=== PATIENT | female | born 1965 | race African-American/Black ===

== ENCOUNTER 2018-03-11 10:09 | Emergency (ER) | payer OTHER ==
[2018-03-11 12:25] LABS: Absolute Lymphocytes (CBC) 1.9 K/uL (0.7-4.9); Absolute Monocytes 0.4 K/uL (0.1-1.3); Absolute Neutrophil 2.4 K/uL (1.8-8.0); Eosinophils % 1.6 % (0-4.4); Hematocrit 47.3 % (36.0-45.0); Lymphocytes % 40.2 % (15.3-44.8); MCH 27.9 pg (27.0-35.0); MPV 10.4 fL (7.6-11.3); Monocytes % 7.5 % (3.3-12.3); RBC Red Blood Cell Count 5.44 M/uL (3.86-4.86)
[2018-03-11 12:40] LABS: Bicarbonate 26 mEq/L (21-31); Glucose Level 131 mg/dL (65-120); Potassium 3.6 mEq/L (3.6-5.0); Sodium Level 140 mEq/L (135-145)
[2018-03-11 12:41] LABS: BUN Blood Urea Nitrogen 10 mg/dL (6-20)
--- NOTE | 2018-03-11 13:45 | EKG ---
Test Date: 2018-03-11 Test Time: 12:18:04 Field Cane Scaler Helper: KANIKA MEASUREMENT RESULTS: Intervals: Rate: 76 MT: 174 QRSD: 74 QT: 376 QTc: [address] [place]: P: 24 MT: 174 QRS: -1 T: -25 INTERPRETIVE STATEMENTS: Normal sinus rhythm Nonspecific T wave abnormality Abnormal ECG Compared to ECG 11/22/2017 11:52:00 Atrial fibrillation no longer present Possible ischemia no longer present T-wave abnormality still present Electronically Signed On 03-11-18 13:44:54 CDT by Tarik Ley
--- NOTE | 2018-03-11 14:41 | RAD REPORT ---
EXAM DESCRIPTION: RAD - Chest Single View - 03/11/2018 2:32 pm CLINICAL HISTORY: Dyspnea, shortness of breath, asthma history COMPARISON: October 2017 TECHNIQUE: AP portable chest image was obtained 1401 hours . FINDINGS: No peripheral mass or consolidation. Lung markings are similar to the comparison study. No air trapping or tracheal shift. Heart and vasculature are normal. No measurable pleural effusion and no pneumothorax. No gross bony abnormality seen. No acute aortic findings suspected. IMPRESSION: No acute cardiopulmonary process. No suspicious change from the prior study.
--- NOTE | 2018-03-11 14:47 | EDPHYS ---
Physician Documentation [facility] Name: Madhavi Michael Age: 52 yrs Sex: Female : 1965 Arrival Date: 03/11/2018 Time: 10:11 Bed 6 Private MD: Halle Shabazz ED Physician Arnulfo Pelayo HPI: 03/11 13:34 This 52 yrs old Black Female presents to ER via Ambulatory with complaints of Shortness rn Of Breath, Arm Pain, Neck Pain, <24hrs Old. 13:34 The patient or guardian complains of pain, that is acute. The symptoms are located on rn the left lateral aspect of neck. Onset: The symptoms/episode began/occurred 3 day(s) ago. Associated signs and symptoms: The patient has no apparent associated signs or symptoms. The pain radiates to the left arm. Severity of symptoms: At their worst the symptoms were moderate, in the emergency department the symptoms are unchanged. The patient has not experienced similar symptoms in the past. Reports left neck pain, intermittent, states hurts to move head to left, no trauma, woke up like this a few days ago, no fever, reports mild sob as well, no cough/chest pain. . STRIPPER LATEX: 10:30 LMP N/A - Post-menopause lk1 Historical: - Allergies: 12:09 No Known Allergies; sv - PMHx: 12:09 Asthma; Atrial Fib; Diabetes - NIDDM; Leaking Veins x2 Right Leg; neuropathy; sciatica; sv Sleep Apnea; - PSHx: 12:09 Right Knee Replacement; Hysterectomy; Hernia repair; Fibroid Tumor Removal; Tubal sv ligation; - Immunization history:: Adult Immunizations up to date. - Social history:: Smoking status: Patient uses tobacco products, smokes one-half pack cigarettes per day. - Family history:: not pertinent. - Hospitalizations: : No recent hospitalization is reported. ROS: 13:34 Constitutional: Negative for fever, chills, and weight loss, Eyes: Negative for injury, rn pain, redness, and discharge, Neck: Negative for injury, swelling, Cardiovascular: Negative for chest pain, palpitations, and edema, Respiratory: Negative for cough, wheezing, and pleuritic chest pain, Abdomen/GI: Negative for abdominal pain, nausea, vomiting, diarrhea, and constipation, Back: Negative for injury and pain, MS/Extremity: Negative for injury and deformity, Skin: Negative for injury, rash, and discoloration, Neuro: Negative for headache, weakness, numbness, tingling, and seizure. Exam: 13:34 Constitutional: This is a well developed, well nourished patient who is awake, alert, rn and in no acute distress. Head/Face: Normocephalic, atraumatic. Eyes: Pupils equal round and reactive to light, extra-ocular motions intact. Lids and lashes normal. Conjunctiva and sclera are non-icteric and not injected. Cornea within normal limits. Periorbital areas with no swelling, redness, or edema. Neck: Trachea midline, no thyromegaly or masses palpated, and no cervical lymphadenopathy. Supple, full range of motion without nuchal rigidity, or vertebral point tenderness. No Meningismus. Mild painful ROM when turning to left, + mild tenderness along left SCM. Cardiovascular: Regular rate and rhythm with a normal S1 and S2. No gallops, murmurs, or rubs. Normal PMI, no JVD. No pulse deficits. Respiratory: + mild tachypnea, clear breath sounds bilaterally. Abdomen/GI: Soft, + mild erythema and tenderness without fluctuance or drainage to underside of pannicula. MS/ Extremity: Pulses equal, no cyanosis. Neurovascular intact. Full, normal range of motion. Equal circumference. Neuro: Awake and alert, GCS 15, oriented to person, place, time, and situation. Cranial nerves II-XII grossly intact. Motor strength 5/5 in all extremities. Sensory grossly intact. Vital Signs: 10:30 BP 150 / 97; Pulse 63; Resp 16; Temp 97.0(TE); Pulse Ox 99% on R/A; Weight 131.54 kg lk1 (R); Height 5 ft. 7 in. (170.18 cm) (R); Pain 10/10; 12:43 BP 161 / 104; Pulse 64 MON; Resp 17; Pulse Ox 100% on R/A; sv 13:10 BP 148 / 101; Pulse 64; Resp 21; Pulse Ox 100% on R/A; sv 13:57 BP 152 / 104; Pulse 57 MON; Resp 23; Pulse Ox 99% on R/A; sv 13:57 BP 152 / 104; Pulse 58; Resp 22; Pulse Ox 100% on R/A; jb1 14:57 BP 157 / 98; Pulse 61; Resp 20 S; Pulse Ox 99% on R/A; iw 10:30 Body Mass Index 45.42 (131.54 kg, 170.18 cm) lk1 12:43 Sinus Rhythm sv 13:57 Sinus bradycardia sv MDM: 11:53 Patient medically screened. rn 14:46 Differential diagnosis: arthritis, Cervical Raiculopathy cervical strain, rn Osteoarthritis torticollis. Data reviewed: vital signs, nurses notes, lab test result(s), EKG, radiologic studies, plain films, and as a result, I will discharge patient. Counseling: I had a detailed discussion with the patient and/or guardian regarding: the historical points, exam findings, and any diagnostic results supporting the discharge/admit diagnosis, lab results, radiology results, the need for outpatient follow up, to return to the emergency department if symptoms worsen or persist or if there are any questions or concerns that arise at home. Special discussion: I discussed with the patient/guardian in detail that at this point there is no indication for admission to the hospital. It is understood, however, that if the symptoms persist or worsen the patient needs to return immediately for re-evaluation. 03/11 12:19 Order name: Basic Metabolic Panel; Complete Time: 14:06 EDWV 03/11 12:19 Order name: Troponin I; Complete Time: 14:06 EDWV 03/11 12:19 Order name: CBC with Automated Diff; Complete Time: 14:06 EDWV 03/11 12:05 Order name: IV Start; Complete Time: 12:31 rn 03/11 12:05 Order name: EKG; Complete Time: 12:34 rn 03/11 12:05 Order name: EKG - Nurse/Tech; Complete Time: 12:31 rn 03/11 12:05 Order name: XRAY Chest (1 view); Complete Time: 14:44 rn Administered Medications: No medications were administered Disposition: 03/11/18 14:47 Discharged to Home. Impression: Radiculopathy, cervical region, Torticollis, Muscle spasm. - Condition is Stable. - Discharge Instructions: Cervical Radiculopathy, Torticollis, Acute. - Prescriptions for Cyclobenzaprine 10 mg Oral Tablet - take 1 tablet by ORAL route every 8-12 hours As needed; 15 tablet. Medrol (Jameson) 4 mg Oral Tablets, Dose Pack - take 1 tablet by ORAL route as directed - follow package instructions; 1 packet. - Medication Reconciliation Form, Thank You Letter, Antibiotic Education, Prescription Opioid Use form. - Follow up: Private Physician; When: As needed; Reason: Recheck today's complaints, Re-evaluation by your physician. - Problem is an ongoing problem. - Symptoms have improved. Signatures: Dispatcher [employer] EDFallon Garcia RN RN sv Williams, Irene, RN RN iw Nieto, Roman, MD MD research attorney: (The following items were deleted from the chart) 12:55 12:22 Chest Pa And Lat (2 Views) ordered. EDWV EDMS
--- NOTE | 2018-03-11 14:47 | ER ---
Nurse's Notes [facility] Name: Madhavi Michael Age: 52 yrs Sex: Female : 1965 Arrival Date: 03/11/2018 Time: 10:11 Bed 6 Private MD: Halle Shabazz Diagnosis: Radiculopathy, cervical region;Torticollis;Muscle spasm Presentation: 03/11 10:28 Presenting complaint: Patient states: "Some say I have pleurisy. I am short of breath, lk1 I can't turn my neck to the left. I also have a boil under my fat.". Initial Sepsis Screen: Does the patient meet any 2 criteria?. 10:28 Method Of Arrival: Ambulatory lk1 10:29 Transition of care: patient was not received from another setting of care. Onset of lk1 symptoms was March 07, 2018. Care prior to arrival: None. 10:29 Acuity: SISSY 3 lk1 12:28 Initial Sepsis Screen: Does the patient meet any 2 criteria? No. Patient's initial sv sepsis screen is negative. Does the patient have a suspected source of infection? No. Patient initial sepsis screen negative. Triage Assessment: 10:30 General: Appears in no apparent distress. Behavior is calm, cooperative, appropriate lk1 for age. Pain: Complains of pain in anterior aspect of left shoulder, posterior aspect of left shoulder and neck Pain currently is 10 out of 10 on a pain scale. Respiratory: Airway is patent Respiratory effort is even, unlabored, Respiratory pattern is regular, symmetrical. 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 - Social history:: Smoking status: Patient uses tobacco products, smokes one-half pack cigarettes per day. - Family history:: not pertinent. - Hospitalizations: : No recent hospitalization is reported. Screenin:00 Abuse screen: Denies threats or abuse. Denies injuries from another. Nutritional sv screening: No deficits noted. Tuberculosis screening: No symptoms or risk factors identified. Fall Risk None identified. Assessment: 12:00 General: Appears in no apparent distress. uncomfortable, obese, Behavior is calm, sv cooperative, appropriate for age. Pain: Complains of pain in left trapezius, suprapubic area, left posterior aspect of neck and left lateral aspect of neck Pain currently is 10 out of 10 on a pain scale. Quality of pain is described as tender, Pain began Is continuous, Noted to be grimacing, resistant to movement, Also complains of sleeplessness. Neuro: Level of Consciousness is awake, alert, obeys commands, Oriented to person, place, time, situation, Moves all extremities. Full function. Cardiovascular: Patient's skin is warm and dry. Respiratory: Reports shortness of breath at rest Respiratory effort is even, unlabored, Respiratory pattern is regular, symmetrical. Derm: Skin is normal, Abscess located on suprapubic area is dime sized, has no drainage. Musculoskeletal: Range of motion: intact in all extremities. 14:57 Reassessment: Patient appears in no apparent distress at this time. Patient and/or iw family updated on plan of care and expected duration. Pain level reassessed. Patient is alert, oriented x 3, equal unlabored respirations, skin warm/dry/pink. Vital Signs: 10:30 BP 150 / 97; Pulse 63; Resp 16; Temp 97.0(TE); Pulse Ox 99% on R/A; Weight 131.54 kg lk1 (R); Height 5 ft. 7 in. (170.18 cm) (R); Pain 10/10; 12:43 BP 161 / 104; Pulse 64 MON; Resp 17; Pulse Ox 100% on R/A; sv 13:10 BP 148 / 101; Pulse 64; Resp 21; Pulse Ox 100% on R/A; sv 13:57 BP 152 / 104; Pulse 57 MON; Resp 23; Pulse Ox 99% on R/A; sv 13:57 BP 152 / 104; Pulse 58; Resp 22; Pulse Ox 100% on R/A; jb1 14:57 BP 157 / 98; Pulse 61; Resp 20 S; Pulse Ox 99% on R/A; iw 10:30 Body Mass Index 45.42 (131.54 kg, 170.18 cm) lk1 12:43 Sinus Rhythm sv 13:57 Sinus bradycardia sv ED Course: 10:11 Patient arrived in ED. as 10:12 Halle Shabazz MD is Private Physician. as 10:30 Triage completed. lk1 10:32 Arm band placed on right wrist. lk1 11:53 Arnulfo Pelayo MD is Attending Physician. rn 11:58 Fallon Willard RN is Primary Nurse. sv 12:00 Patient has correct armband on for positive identification. Placed in gown. Bed in low sv position. Call light in reach. Side rails up X2. phototypesetting equipment monitor on. Pulse ox on. NIBP on. Door closed. Head of bed elevated. 12:30 Initial lab(s) drawn, by me, sent to lab. Inserted saline lock: 22 gauge in right jb1 antecubital area, using aseptic technique. Blood collected. 13:00 EKG done, by radiation therapy technologist. reviewed by Arnulfo Pelayo MD. vh 13:10 Awaiting for x-ray. sv 14:07 X-ray completed. Portable x-ray completed in exam room. jr1 14:11 XRAY Chest (1 view) In Process Unspecified. EDMS 14:57 No provider procedures requiring assistance completed. IV discontinued, intact, iw bleeding controlled, No redness/swelling at site. Pressure dressing applied. Administered Medications: No medications were administered Outcome: 14:47 Discharge ordered by MD. rn 14:57 Discharged to home ambulatory, with family. iw 14:57 Condition: good 14:57 Discharge instructions given to patient, family, Instructed on discharge instructions, follow up and referral plans. medication usage, Demonstrated understanding of instructions, follow-up care, medications, Prescriptions given X 2. 14:59 Patient left the ED. iw Signatures: Dispatcher [employer] EDMS Warren Gold jb1 Fallon Willard, Marnie Castillo RN jr1 Luiza Castellano Irene, RN RN Arnulfo Pelayo MD MD rn Harrell, Venessa Susi Solorio RN RN lk1
[2018-03-11 15:19] VITALS: TEMP 97
[2018-03-11 15:23] VITALS: O2SAT 99
[2018-03-11 15:24] VITALS: BP 157/98
== END 2018-03-11 14:59 | disposition home or self-care (01) ==
LOC: ER 10:09
DX: M43.6 Torticollis (principal); M54.12 Radiculopathy, cervical region; M62.838 Other muscle spasm; F17.210 Nicotine dependence, cigarettes, uncomplicated
CPT/HCPCS: 36415; 71045; 80048; 84484; 85025; 93005; 99284

== ENCOUNTER 2018-08-03 08:15 | Emergency (ER) | payer OTHER ==
[2018-08-03] MEDS ORDERED: SMZ./TMP. 800/160 MG TABLET ONE (09:43)
[2018-08-03] MEDS ORDERED: CEPHALEXIN 250 MG CAP ONE (09:43)
[2018-08-03] MEDS ORDERED: LIDOCAINE 1% MPF 2 ML AMPULE ONE (09:44)
--- NOTE | 2018-08-03 10:02 | ER ---
Nurse's Notes [facility] Name: Madhavi Michael Age: 52 yrs Sex: Female : 1965 Arrival Date: 08/03/2018 Time: 08:20 Bed 16 Private MD: Halle Shabazz Diagnosis: Cutaneous abscess of abdominal wall Presentation: 08/03 08:39 Presenting complaint: Patient states: felt some irritation in her left abdominal area, iw got worse yesterday, feels an abscess, no fever or chills. Transition of care: patient was not received from another setting of care. Onset of symptoms was July 28, 2018. Risk Assessment: Do you want to hurt yourself or someone else? Patient reports no desire to harm self or others. Initial Sepsis Screen: Does the patient meet any 2 criteria? No. Patient's initial sepsis screen is negative. Does the patient have a suspected source of infection? No. Patient's initial sepsis screen is negative. Care prior to arrival: None. 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:40 LMP N/A - Hysterectomy rb1 Historical: - Allergies: 08:45 NKA; iw - Home Meds: 08:45 amlodipine 10 mg tab [Active]; aspirin 81 mg Oral TbEC 1 tab once daily [Active]; iw carvedilol 25 mg Oral tab 1 tab 2 times per day [Active]; Eliquis 2.5 mg Oral tab 1 tab 2 times per day [Active]; Flovent Inhl [Active]; gabapentin 600 mg Oral tab 1 tab 3 times per day [Active]; Iron CR 324mg Oral daily [Active]; [place] 10-325 mg Oral tab 1 tab every 4-6 hours for Pain [Active]; Simvastatin Oral [Active]; - PMHx: 08:45 Asthma; Atrial Fib; Diabetes - NIDDM; Leaking Veins x2 Right Leg; neuropathy; sciatica; iw Sleep Apnea; - PSHx: 08:45 Right Knee Replacement; Hysterectomy; Hernia repair; Fibroid Tumor Removal; Tubal iw ligation; - Immunization history:: Adult Immunizations not up to date. - Social history:: Smoking status: Patient uses tobacco products, smokes one-half pack cigarettes per day. - Ebola Screening: : Patient negative for fever greater than or equal to 101.5 degrees Fahrenheit, and additional compatible Ebola Virus Disease symptoms Patient denies exposure to infectious person Patient denies travel to an Ebola-affected area in the 21 days before illness onset No symptoms or risks identified at this time. Screenin:40 Nutritional screening: No deficits noted. Tuberculosis screening: No symptoms or risk rb1 factors identified. Fall Risk None identified. 08:45 Abuse screen: Denies threats or abuse. Denies injuries from another. iw Assessment: 08:40 General: Appears in no apparent distress. comfortable, obese, Behavior is calm, rb1 cooperative, Denies fever. Pain: Complains of pain in left lower quadrant Pain currently is 10 out of 10 on a pain scale. Neuro: Level of Consciousness is awake, alert, obeys commands, Oriented to person, place, time, situation. Cardiovascular: Capillary refill < 3 seconds is brisk in bilateral fingers. Respiratory: Airway is patent Respiratory effort is even, unlabored, Respiratory pattern is regular, symmetrical. GI: No signs and/or symptoms were reported involving the gastrointestinal system. : No signs and/or symptoms were reported regarding the genitourinary system. Derm: Skin is dry, Skin is normal, Skin temperature is warm. 09:40 Reassessment: Patient appears in no apparent distress at this time. No changes from rb1 previously documented assessment. 10:25 Reassessment: Patient appears in no apparent distress at this time. Patient and/or rb1 family updated on plan of care and expected duration. Pain level reassessed. Patient is alert, oriented x 3, equal unlabored respirations, skin warm/dry/pink. Vital Signs: 08:45 BP 161 / 94; Pulse 73; Resp 18; Temp 98.4; Pulse Ox 99% on R/A; Weight 133.36 kg; iw Height 5 ft. 7 in. (170.18 cm); Pain 10/10; 09:28 BP 140 / 81; Pulse 73; Resp 16; Pulse Ox 99% on R/A; dh3 10:00 BP 147 / 88; Pulse 60; Resp 19; Pulse Ox 100% on R/A; rb1 08:45 Body Mass Index 46.05 (133.36 kg, 170.18 cm) iw ED Course: 08:20 Patient arrived in ED. sb2 08:20 Halle Shabazz MD is Private Physician. sb2 08:31 Irena Clay, RN is Primary Nurse. rb1 08:40 [facility]. kb 08:40 Arnulfo Pelayo MD is Attending Physician. kb 08:40 Patient has correct armband on for positive identification. Bed in low position. Call rb1 light in reach. Side rails up X 1. Pulse ox on. NIBP on. Warm blanket given. 08:43 Triage completed. iw 08:46 Arm band placed on. iw 10:01 Halle Shabazz MD is Referral Physician. kb 10:25 No provider procedures requiring assistance completed. Patient did not have IV access rb1 during this emergency room visit. Administered Medications: 09:35 Drug: Lidocaine (1 %) 1 vials Volume: 5 ml; Route: Infiltration; rb1 10:00 Drug: Bactrim (160 mg-800 mg (DS) 1 tablet Route: PO; rb1 10:25 Follow up: Response: No adverse reaction rb1 10:00 Drug: KeFLEX 500 mg Route: PO; rb1 10:25 Follow up: Response: No adverse reaction rb1 Outcome: 10:01 Discharge ordered by MD. kb 10:25 Discharged to home via wheelchair, with family. rb1 10:25 Condition: stable 10:25 Discharge instructions given to patient, Instructed on discharge instructions, follow up and referral plans. medication usage, Demonstrated understanding of instructions, follow-up care, medications, Prescriptions given X 3. 10:33 Patient left the ED. rb1 Addendum: 08/08/2018 17:07 Addendum: Culture Results: Positive wound culture. No further action required. Bacteria s s is resistant to, has intermediate sensitivity, or is not tested against prescribed antibiotics. Report given to AIDAN for further evaluation and then to assistant general manager for follow up with patient. Phone call Attempt #1 spoke with patient who reports she has followed up with Dr. Shabazz and feels much better. Signatures: Linda Colbert FNP-C FNP-Kiera Heard RN RN Brianna Brooks RN RN ss Barber, Rebecca, RN RN [facility] Viviana Reveles 3 Marcela Nair 2
--- NOTE | 2018-08-03 10:02 | EDPHYS ---
Physician Documentation [facility] Name: Madhavi Michael Age: 52 yrs Sex: Female : 1965 Arrival Date: 08/03/2018 Time: 08:20 Bed 16 Private MD: Halle Shabazz ED Physician Arnulfo Pelayo HPI: 08/03 09:32 This 52 yrs old Black Female presents to ER via Wheelchair with complaints of Abscess. kb 09:32 The patient presents with an abscess of the left lower quadrant. Description: kale, driss swollen. Onset: The symptoms/episode began/occurred last week, and became worse yesterday. Possible cause(s): unknown. Associated signs and symptoms: Pertinent positives: swelling, Pertinent negatives: discharge, drainage, erythema, foreign body sensation, fever, headache, nausea, shortness of breath, vomiting. Modifying factors: the symptoms are alleviated by nothing, the symptoms are aggravated by pressure, squeezing the lesion and expressing the contents, touching. Severity of symptoms: At their worst the symptoms were moderate, in the emergency department the symptoms are unchanged. The patient has not experienced similar symptoms in the past. The patient has not recently seen a physician. 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 - Hysterectomy rb1 Historical: - Allergies: 08:45 NKA; iw - Home Meds: 08:45 amlodipine 10 mg tab [Active]; aspirin 81 mg Oral TbEC 1 tab once daily [Active]; iw carvedilol 25 mg Oral tab 1 tab 2 times per day [Active]; Eliquis 2.5 mg Oral tab 1 tab 2 times per day [Active]; Flovent Inhl [Active]; gabapentin 600 mg Oral tab 1 tab 3 times per day [Active]; Iron CR 324mg Oral daily [Active]; Orient 10-325 mg Oral tab 1 tab every 4-6 hours for Pain [Active]; Simvastatin Oral [Active]; - PMHx: 08:45 Asthma; Atrial Fib; Diabetes - NIDDM; Leaking Veins x2 Right Leg; neuropathy; sciatica; iw Sleep Apnea; - PSHx: 08:45 Right Knee Replacement; Hysterectomy; Hernia repair; Fibroid Tumor Removal; Tubal iw ligation; - Immunization history:: Adult Immunizations not up to date. - Social history:: Smoking status: Patient uses tobacco products, smokes one-half pack cigarettes per day. - Ebola Screening: : Patient negative for fever greater than or equal to 101.5 degrees Fahrenheit, and additional compatible Ebola Virus Disease symptoms Patient denies exposure to infectious person Patient denies travel to an Ebola-affected area in the 21 days before illness onset No symptoms or risks identified at this time. ROS: 09:30 Constitutional: Negative for fever, chills, and weight loss, Cardiovascular: Negative kb for chest pain, palpitations, and edema, Respiratory: Negative for shortness of breath, cough, wheezing, and pleuritic chest pain, Abdomen/GI: Negative for abdominal pain, nausea, vomiting, diarrhea, and constipation, Back: Negative for injury and pain, : Negative for injury, bleeding, discharge, and swelling, MS/Extremity: Negative for injury and deformity, Neuro: Negative for headache, weakness, numbness, tingling, and seizure. 09:30 Skin: Positive for abscess, of the left lower quadrant. Exam: 09:30 Constitutional: This is a well developed, well nourished patient who is awake, alert, kb and in no acute distress. Head/Face: Normocephalic, atraumatic. Chest/axilla: Normal chest wall appearance and motion. Nontender with no deformity. No lesions are appreciated. Cardiovascular: Regular rate and rhythm with a normal S1 and S2. No gallops, murmurs, or rubs. Normal PMI, no JVD. No pulse deficits. Respiratory: Lungs have equal breath sounds bilaterally, clear to auscultation and percussion. No rales, rhonchi or wheezes noted. No increased work of breathing, no retractions or nasal flaring. Abdomen/GI: Soft, non-tender, with normal bowel sounds. No distension or tympany. No guarding or rebound. No evidence of tenderness throughout. Back: No spinal tenderness. No costovertebral tenderness. Full range of motion. MS/ Extremity: Pulses equal, no cyanosis. Neurovascular intact. Full, normal range of motion. Neuro: Awake and alert, GCS 15, oriented to person, place, time, and situation. Cranial nerves II-XII grossly intact. Motor strength 5/5 in all extremities. Sensory grossly intact. Cerebellar exam normal. Normal gait. 09:30 Skin: abscess, that is moderate sized, of the left lower quadrant, with fluctuance, that is marked, with induration. Vital Signs: 08:45 BP 161 / 94; Pulse 73; Resp 18; Temp 98.4; Pulse Ox 99% on R/A; Weight 133.36 kg; iw Height 5 ft. 7 in. (170.18 cm); Pain 10/10; 09:28 BP 140 / 81; Pulse 73; Resp 16; Pulse Ox 99% on R/A; dh3 10:00 BP 147 / 88; Pulse 60; Resp 19; Pulse Ox 100% on R/A; rb1 08:45 Body Mass Index 46.05 (133.36 kg, 170.18 cm) iw Procedures: 09:58 I \T\ D: Incision and drainage was performed for an abscess of the left left lower kb quadrant Prepped with Betadine, Anesthetized with 4 ml's 1% Lidocaine. Incised with #11 blade. Drained large amount purulent fluid. Cultures obtained. Abscess cavity explored. Packed with iodoform gauze, Dressing: sterile 4x4 gauze, the patient tolerated the procedure well. MDM: 08:40 Patient medically screened. kb 09:30 Data reviewed: vital signs, nurses notes. Data interpreted: Pulse oximetry: on room air kb is 99 %. Interpretation: normal. Counseling: I had a detailed discussion with the patient and/or guardian regarding: the historical points, exam findings, and any diagnostic results supporting the discharge/admit diagnosis, the need for outpatient follow up, a family practitioner, a general surgeon, to return to the emergency department if symptoms worsen or persist or if there are any questions or concerns that arise at home. 09:59 ED course: Educated to take antibiotics as prescribed and return for worsening pain, kb swelling, redness, development of fever. Pt to follow up with PCP/general surgery. 08/03 10:07 Order name: Wound Culture kb 08/03 08:48 Order name: I\T\D Setup; Complete Time: 10:02 kb Administered Medications: 09:35 Drug: Lidocaine (1 %) 1 vials Volume: 5 ml; Route: Infiltration; rb1 10:00 Drug: Bactrim (160 mg-800 mg (DS) 1 tablet Route: PO; rb1 10:25 Follow up: Response: No adverse reaction rb1 10:00 Drug: KeFLEX 500 mg Route: PO; rb1 10:25 Follow up: Response: No adverse reaction rb1 Disposition: 11:31 Co-signature as Attending Physician, Arnulfo Pelayo MD. rn Disposition: 08/03/18 10:01 Discharged to Home. Impression: Cutaneous abscess of abdominal wall. - Condition is Stable. - Discharge Instructions: Skin Abscess, [id number], Incision and Drainage, Care After. - Prescriptions for Keflex 500 mg Oral Capsule - take 1 capsule by ORAL route every 8 hours for 10 days; 30 capsule. Bactrim DS 800- 160 mg Oral Tablet - take 1 tablet by ORAL route every 12 hours for 10 days; 20 tablet. Tramadol 50 mg Oral Tablet - take 1 tablet by ORAL route every 8 hours as needed; 12 tablet. - Medication Reconciliation Form, Thank You Letter, Antibiotic Education, Prescription Opioid Use form. - Follow up: Emergency Department; When: As needed; Reason: Worsening of condition. Follow up: Halle Shabazz MD; When: 2 - 3 days; Reason: Recheck today's complaints, Continuance of care, Re-evaluation by your physician. Signatures: Dispatcher [employer] Linda Coffman, SYSTEMS DESIGNER-C SYSTEMS DESIGNER-Ckb Kiera Lozada, RN Arnulfo eBrgman MD MD rn Barber, Rebecca, RN RN rb1 Corrections: (The following items were deleted from the chart) 10:33 10:01 08/03/2018 10:01 Discharged to Home. Impression: Cutaneous abscess of abdominal rb1 wall. Condition is Stable. Forms are Medication Reconciliation Form, Thank You Letter, Antibiotic Education, Prescription Opioid Use. Follow up: Emergency Department; When: As needed; Reason: Worsening of condition. Follow up: Halle Shabazz; When: 2 - 3 days; Reason: Recheck today's complaints, Continuance of care, Re-evaluation by your physician. kb
[2018-08-03 10:51] VITALS: TEMP 98.4
[2018-08-03 10:52] VITALS: BP 147/88; O2SAT 100
== END 2018-08-03 10:33 | disposition home or self-care (01) ==
LOC: ER 08:15
PROC: 0H97XZZ Drainage of Abdomen Skin, External Approach (ICD-10-PCS; principal; 2018-08-03)
DX: L02.211 Cutaneous abscess of abdominal wall (principal); Z79.01 Long term (current) use of anticoagulants; Z79.82 Long term (current) use of aspirin; J45.909 Unspecified asthma, uncomplicated; I48.91 Unspecified atrial fibrillation; E11.40 Type 2 diabetes mellitus with diabetic neuropathy, unspecified; M54.30 Sciatica, unspecified side; G47.30 Sleep apnea, unspecified; F17.210 Nicotine dependence, cigarettes, uncomplicated; E66.9 Obesity, unspecified; Z68.42 Body mass index [BMI] 45.0-49.9, adult
CPT/HCPCS: 87070; 87077; 87186; 87205; 99283; J2001

== ENCOUNTER 2018-11-20 11:54 | Emergency (ER) | payer OTHER ==
--- OUTSIDE RECORDS SUMMARY | 2018-11-20 11:57 | XMS REPORT ---
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42 Active in adult Problem Thrombocytopenia D69.6 Active Problem Morbid (severe) obesity due to E66.01 Active excess calories Problem GERD (gastroesophageal reflux K21.9 Active disease) Problem Hyperlipidemia E78.5 Active Problem Edema R60.9 Active Problem Anemia D64.9 Active Problem Paroxysmal atrial fibrillation I48.0 Active Problem Asthma, unspecified asthma J45.909 Active severity, unspecified whether complicated, unspecified whether persistent Problem Diabetes mellitus type 2 in E11.9 Active nonobese Problem Osteoarthrosis, localized, M17.5 Active secondary, involving lower leg Medications No Known Medications Results No Known Results Summary Purpose [employer] Submission
--- OUTSIDE RECORDS SUMMARY | 2018-11-20 11:57 | XMS REPORT ---
:1965 Author Organization [employer] Care Team Providers Name Role Phone Shabazz, Na Provider Role Unavailable Allergies, Adverse Reactions, Alerts Substance Reaction Event Type N.K.D.A. Info Not Available Non Drug Allergy Problems Problem Type Condition Code Onset Dates Condition Status Assessment Screening for human Z11.4 Active immunodeficiency virus Assessment Recurrent infection of skin L08.9 Active Assessment Exposure to hepatitis C Z20.5 Active Assessment Need for hepatitis C screening test Z11.59 Active Assessment Diabetes mellitus type 2 in E11.9 Active nonobese Problem Obstructive sleep apnea G47.33 Active Problem [...] M17.5 Active secondary, involving lower leg Medications Medication Code Code Instructions Start End Status Dosage System Date Date [facility] 30994590428 5-325 MG Active 1 tablet Orally every 6 as needed hrs Ferrous Sulfate [facility] 61840425953 325 (65 Fe) MG Active 1 tablet Orally Once a day Omeprazole [facility] 33493344008 40MG Active TAKE ONE CAPSULE BY MOUTH ONCE DAILY Celexa [facility] 25105792023 40 MG Orally Active 0.5 Once a day tablet Coreg [facility] 00361908065 25 MG Orally Active not defined Omeprazole [facility] 39475220790 40 MG Orally Active 1 capsule Once a day Hydrochlorothiazide [facility] 49041464277 25 MG Orally Active 1 tablet Once a day in the morning Flovent Diskus [facility] 44472133469 100 MCG/BLIST Active 1 puff Inhalation Twice a day Potassium Chloride ER [facility] 16019736292 10MEQ ER Active TAKE ONE TABLET BY MOUTH ONCE DAILY Albuterol Sulfate [facility] 73580609805 (5 MG/ML) 0.5% Active 1 ml as Inhalation needed every 6 hrs Klor-Con M10 [facility] 58695188214 10 MEQ Orally Active 1 tablet Twice a day with food Flonase [facility] 58497264454 50 MCG/ACT Active 1 spray Nasally Once a in each day nostril Potassium Chloride ER [facility] 38270695118 10MEQ ER Active TAKE ONE TABLET BY MOUTH ONCE DAILY Singulair [facility] 77628211035 10 MG Orally Active 1 tablet Once a day in the evening Combivent Respimat [facility] 45679887092 20-100 MCG/ACT Active 1 puff Inhalation Four times a day - [facility] 08043189367 81 MG Orally Active 1 tablet Once a day Amlodipine Besylate [facility] 68302917806 10 MG Orally Jan 22, Active 1 tablet Once a day [address] [facility] 91488968159 60 MG Orally [place] Active 1 capsule Once a day [address] [facility] 46610357133 20MG Active TAKE ONE TABLET BY MOUTH ONCE DAILY Neurontin [facility] 39351960877 600 MG Orally Active 1 tablet Once a day Combivent NDC 0 Active not defined Norvasc [facility] 44328403151 5 MG Orally Active 2 tablet Once a day Simvastatin [facility] 77144599597 20 MG Orally Active 1 tablet Once a day in the evening Zanaflex [facility] 02567098520 4 MG Orally Active 1 tablet twice times a as needed day Flovent HFA [facility] 30178331213 110 MCG/ACT Active 1 puff Inhalation Twice a day Cozaar [facility] 46748569707 100 MG Orally Active 1 tablet Once a day Results No Known Results Summary Purpose eClinicalWorks Submission
--- OUTSIDE RECORDS SUMMARY | 2018-11-20 11:57 | XMS REPORT ---
:1965 Author Organization [employer] Care Team Providers Name Role Phone Shabazz, Na Provider Role Unavailable Allergies, Adverse Reactions, Alerts Substance Reaction Event Type N.K.D.A. Info Not Available Non Drug Allergy Problems Problem Type Condition Code Onset Dates Condition Status Assessment Nicotine abuse Z72.0 Active Assessment Elevated blood pressure reading I10 Active with diagnosis of hypertension Assessment Encounter for tobacco use cessation Z71.6 Active counseling Assessment Abscess of vagina N76.0 Active Problem Obstructive sleep apnea G47.33 Active Problem [...] Start End Status Dosage System Date Date Albuterol Sulfate [facility] 74800714551 (5 MG/ML) 0.5% Active 1 ml as Inhalation needed every 6 hrs [place] [facility] 01379358620 5-325 MG Active 1 tablet as Orally every 6 needed hrs Celexa [facility] 11546348693 40 MG Orally Active 0.5 tablet Once a day Aspir-81 ND 72722019000 81 MG Orally Active 1 tablet Once a day Cozaar ND 56161048742 100 MG Orally Active 1 tablet Once a day Amlodipine Besylate ND 36753840790 10 MG Orally Feb Active 1 tablet Once a day 2017 Omeprazole [facility] 23851605250 40 MG Orally Active 1 capsule Once a day Combivent ND 0 Active not defined Flovent Diskus ND 04935144592 100 MCG/BLIST Active 1 puff Inhalation Twice a day Neurontin [facility] 46214997581 600 MG Orally Active 1 tablet Once a day Hydrochlorothiazide ND 38873751060 25 MG Orally Active 1 tablet in Once a day the morning Coreg ND 15974285522 25 MG Orally Active not defined Potassium Chloride ER [facility] 44859063993 10MEQ ER Active TAKE ONE TABLET BY MOUTH ONCE DAILY Norvasc [facility] 07111501234 5 MG Orally Active 2 tablet Once a day Flovent HFA ND 58047380958 110 MCG/ACT Active 1 puff Inhalation Twice a day Levaquin ND 32861024487 500 MG Orally Sept Oct Active 1 tablet Once a day 2017 Potassium Chloride ER [facility] 05459328738 10MEQ ER Active TAKE ONE TABLET BY MOUTH ONCE DAILY Singulair ND 40144490106 10 MG Orally Active 1 tablet in Once a day the evening Combivent Respimat [facility] 14465639939 20-100 MCG/ACT Active 1 puff Inhalation Four times a day Ferrous Sulfate [facility] 44001037011 325 (65 Fe) MG Active 1 tablet Orally Once a day Omeprazole ND 05006142047 40MG Active TAKE ONE CAPSULE BY MOUTH ONCE DAILY Mupirocin [facility] 65493123373 2 % Externally Sept Oct Active 1 two times a , 2017 to affected area Dexilant ND 84787052461 60 MG Orally [place] Active 1 capsule Once a day 2017 Klor-Con M10 [facility] 91531881896 10 MEQ Orally Active 1 tablet Twice a day with food Simvastatin [facility] 36849348653 20MG Active TAKE ONE TABLET BY MOUTH ONCE DAILY Flonase [facility] 43639275089 50 MCG/ACT Active 1 spray in Nasally Once a each nostril day Doxycycline Hyclate [facility] 58565237439 100 MG Orally Sept Active 1 capsule twice a day 2017 Zanaflex [facility] 74179433359 4 MG Orally Active 1 tablet as twice times a needed day Simvastatin [facility] 64435309712 20 MG Orally Active 1 tablet in Once a day the evening Results No Known Results Summary Purpose eClinicalWorks Submission
[2018-11-20 13:27] LABS: Urine Blood 1+ (NEG); Urine Glucose NEGATIVE (NEG); Urine Protein NEGATIVE (NEG); Urine Specific Gravity >1.030 (1.005-1.030); Urine pH 5.5 (5.0-7.0)
[2018-11-20 13:38] LABS: Urine Bacteria 20-50 /HPF (<20); Urine Culture Reflex Order REFLEXED; Urine Mucus 1+ /HPF (NONE SEEN)
--- NOTE | 2018-11-20 14:53 | RAD REPORT ---
EXAM DESCRIPTION: RAD - Ribs Right - 11/20/2018 2:45 pm CLINICAL HISTORY: chest wall pain COMPARISON: Chest Single View dated 03/11/2018 FINDINGS: No evidence of right rib fracture or aggressive right rib lesion. Visualized right lung is clear. IMPRESSION: Negative study.
[2018-11-20] MEDS ORDERED: HYDROCODONE/APAP 10/325 TAB ONE (15:15)
[2018-11-20] MEDS ORDERED: METHOCARBAMOL 500 MG TAB ONE (15:15)
[2018-11-20] MEDS ORDERED: KETOROLAC 30 MG/ML INJ ONE (15:15)
--- NOTE | 2018-11-20 15:29 | EDPHYS ---
Physician Documentation [facility] Name: Madhavi Michael Age: 52 yrs Sex: Female : 1965 Arrival Date: 11/20/2018 Time: 11:58 Bed 20 Private MD: Halle Shabazz ED Physician Aman Sanchez HPI: 11/20 14:51 This 52 yrs old Black Female presents to ER via Ambulatory with complaints of Back Pain.kdr 14:51 The patient presents with pain that is acute. The symptoms are located in the right kdr lateral thorax at posterior axillary line and below nipple line. Onset: The symptoms/episode began/occurred suddenly, 2 day(s) ago. The pain does not radiate. Associated signs and symptoms: Pertinent positives: Hurts to breath. The problem was sustained from unknown cause. Modifying factors: The patient symptoms are alleviated by remaining still, the patient symptoms are aggravated by any movement, coughing, walking, breathing. Severity of symptoms: At their worst the symptoms were mild, in the emergency department the symptoms are unchanged. The patient has not experienced similar symptoms in the past. The patient has not recently seen a physician. 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 - Hysterectomy aj1 Historical: - Allergies: 12:08 NKA; aj1 - Home Meds: 12:08 amlodipine 10 mg tab [Active]; aspirin 81 mg Oral TbEC 1 tab once daily [Active]; aj1 carvedilol 25 mg Oral tab 1 tab 2 times per day [Active]; Eliquis 2.5 mg Oral tab 1 tab 2 times per day [Active]; Flovent Inhl [Active]; gabapentin 600 mg Oral tab 1 tab 3 times per day [Active]; Iron CR 324mg Oral daily [Active]; [place] 10-325 mg Oral tab 1 tab every 4-6 hours for Pain [Active]; Simvastatin Oral [Active]; - PMHx: 12:08 Asthma; Atrial Fib; Diabetes - NIDDM; Leaking Veins x2 Right Leg; neuropathy; sciatica; aj1 Sleep Apnea; - PSHx: 12:08 Right Knee Replacement; Hysterectomy; Hernia repair; Fibroid Tumor Removal; Tubal aj1 ligation; - Immunization history:: Adult Immunizations up to date. - Social history:: Smoking status: Patient uses tobacco products, Patient/guardian denies using alcohol. - Ebola Screening: : Patient negative for fever greater than or equal to 101.5 degrees Fahrenheit, and additional compatible Ebola Virus Disease symptoms Patient denies exposure to infectious person Patient denies travel to an Ebola-affected area in the 21 days before illness onset. ROS: 14:51 Constitutional: Negative for fever, chills, and weight loss, Eyes: Negative for injury, kdr pain, redness, and discharge, ENT: Negative for injury, pain, and discharge, Neck: Negative for injury, pain, and swelling, Respiratory: Negative for shortness of breath, cough, wheezing, and pleuritic chest pain, Abdomen/GI: Negative for abdominal pain, nausea, vomiting, diarrhea, and constipation, Back: Negative for injury and pain, : Negative for injury, bleeding, discharge, and swelling, MS/Extremity: Negative for injury and deformity, Skin: Negative for injury, rash, and discoloration, Neuro: Negative for headache, weakness, numbness, tingling, and seizure activity. Psych: Negative for depression, anxiety, suicide ideation, homicidal ideation, and hallucinations, Allergy/Immunology: Negative for hives, rash, and allergies, Endocrine: Negative for neck swelling, polydipsia, polyuria, polyphagia, and marked weight changes, Hematologic/Lymphatic: Negative for swollen nodes, abnormal bleeding, and unusual bruising. 14:51 Cardiovascular: Positive for chest pain, of the As desribed above. Exam: 14:51 Constitutional: This is a well developed, well nourished patient who is awake, alert, kdr and in no acute distress. Head/Face: Normocephalic, atraumatic. Eyes: Pupils equal round and reactive to light, extra-ocular motions intact. Lids and lashes normal. Conjunctiva and sclera are non-icteric and not injected. Cornea within normal limits. Periorbital areas with no swelling, redness, or edema. Neck: Trachea midline, no thyromegaly or masses palpated, and no cervical lymphadenopathy. Supple, full range of motion without nuchal rigidity, or vertebral point tenderness. No Meningismus. Cardiovascular: Regular rate and rhythm with a normal S1 and S2. No gallops, murmurs, or rubs. Normal PMI, no JVD. No pulse deficits. Respiratory: Lungs have equal breath sounds bilaterally, clear to auscultation and percussion. No rales, rhonchi or wheezes noted. No increased work of breathing, no retractions or nasal flaring. Abdomen/GI: Soft, non-tender, with normal bowel sounds. No distension or tympany. No guarding or rebound. No evidence of tenderness throughout. Back: No spinal tenderness. No costovertebral tenderness. Full range of motion. Skin: Warm, dry with normal turgor. Normal color with no rashes, no lesions, and no evidence of cellulitis. MS/ Extremity: Pulses equal, no cyanosis. Neurovascular intact. Full, normal range of motion. Neuro: Awake and alert, GCS 15, oriented to person, place, time, and situation. Cranial nerves II-XII grossly intact. Motor strength 5/5 in all extremities. Sensory grossly intact. Cerebellar exam normal. Normal gait. Psych: Awake, alert, with orientation to person, place and time. Behavior, mood, and affect are within normal limits. 14:51 Chest/axilla: Inspection: normal, Palpation: tenderness, that is mild, of the at bra line and right posterior axillary line - no significant finding where the pain is most focal. Vital Signs: 12:09 BP 102 / 66; Pulse 67; Resp 18; Temp 100.2(O); Pulse Ox 99% on R/A; Weight 134.26 kg; aj1 Height 5 ft. 7 in. (170.18 cm); Pain 10/10; 13:28 BP 122 / 59; Pulse 65; Resp 17; Temp 98.7(O); Pulse Ox 97% on R/A; mh5 14:49 BP 120 / 72; Pulse 73; Resp 18; Pulse Ox 99% on R/A; mh5 16:15 BP 118 / 76; Pulse 69; Resp 14; Pulse Ox 98% ; bp 12:09 Body Mass Index 46.36 (134.26 kg, 170.18 cm) aj1 MDM: 14:51 Data reviewed: vital signs, nurses notes, radiologic studies. Counseling: I had a kdr detailed discussion with the patient and/or guardian regarding: the historical points, exam findings, and any diagnostic results supporting the discharge/admit diagnosis, radiology results, the need for outpatient follow up. 15:29 Patient medically screened. kdr 11/20 13:19 Order name: Urine Dipstick--Ancillary (enter results); Complete Time: 14:48 bd 11/20 13:21 Order name: Urine Microscopic Only; Complete Time: 14:48 mh5 11/20 13:40 Order name: Urine Culture EDME 11/20 13:55 Order name: Ribs Right XRAY; Complete Time: 15:26 kdr Administered Medications: 15:00 Drug: TORadol 60 mg Route: IM; Site: right deltoid; bp 16:26 Follow up: Response: No adverse reaction; Pain is decreased bp 15:00 Drug: [place]o 10 mg-325 mg 1 tabs Route: PO; bp 16:27 Follow up: Response: No adverse reaction; Pain is decreased bp 15:00 Drug: Robaxin 750 mg Route: PO; bp 16:27 Follow up: Response: No adverse reaction; Pain is decreased bp Disposition: 11/20/18 15:29 Discharged to Home. Impression: Right posterior chest wall pain - non-traumatic. - Condition is Stable. - Discharge Instructions: Chest Wall Pain, [id number]. - Prescriptions for Cyclobenzaprine 10 mg Oral Tablet - take 1 tablet by ORAL route every 8 hours As needed; 15 tablet. - Medication Reconciliation Form, Thank You Letter form. - Follow up: Halle Shabazz MD; When: 2 - 3 days; Reason: If symptoms return, Further diagnostic work-up, Recheck today's complaints, Continuance of care, Repeat Beta-HCG (48 Hours), Re-evaluation by your physician. Signatures: Dispatcher [employer] EDBeatris Askew RN RN aj1 Aman Sanchez MD MD kdr Enrique Roca RN RN bp Corrections: (The following items were deleted from the chart) 16:33 15:29 11/20/2018 15:29 Discharged to Home. Impression: Right posterior chest wall pain bp - non-traumatic. Condition is Stable. Forms are Medication Reconciliation Form, Thank You Letter, Antibiotic Education, Prescription Opioid Use. Follow up: Halle Shabazz; When: 2 - 3 days; Reason: If symptoms return, Further diagnostic work-up, Recheck today's complaints, Continuance of care, Repeat Beta-HCG (48 Hours), Re-evaluation by your physician. kdr
--- NOTE | 2018-11-20 15:29 | ER ---
Nurse's Notes [facility] Name: Madhavi Michael Age: 52 yrs Sex: Female : 1965 Arrival Date: 11/20/2018 Time: 11:58 Bed 20 Private MD: Halle Shabazz Diagnosis: Right posterior chest wall pain - non-traumatic Presentation: 11/20 12:05 Presenting complaint: Patient states: i have a pain on my R flank area and its hard to aj1 breathe; denies radiating pain; reports SOB: denies fever and chills, denies diarrhea;. Transition of care: patient was not received from another setting of care. Onset of symptoms was November 20, 2018. Risk Assessment: Do you want to hurt yourself or someone else? Patient reports no desire to harm self or others. Initial Sepsis Screen: Does the patient meet any 2 criteria? No. Patient's initial sepsis screen is negative. Does the patient have a suspected source of infection? No. Patient's initial sepsis screen is negative. Care prior to arrival: None. 12:05 Method Of Arrival: Ambulatory aj 12:05 Acuity: SISSY 3 aj1 Triage Assessment: 12:07 General: Appears in no apparent distress. uncomfortable, obese, Behavior is calm, aj1 cooperative, appropriate for age. Pain: Complains of pain in R flank. 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 LMP N/A - Hysterectomy aj1 Historical: - Allergies: 12:08 NKA; aj1 - Home Meds: 12:08 amlodipine 10 mg tab [Active]; aspirin 81 mg Oral TbEC 1 tab once daily [Active]; aj1 carvedilol 25 mg Oral tab 1 tab 2 times per day [Active]; Eliquis 2.5 mg Oral tab 1 tab 2 times per day [Active]; Flovent Inhl [Active]; gabapentin 600 mg Oral tab 1 tab 3 times per day [Active]; Iron CR 324mg Oral daily [Active]; [place] 10-325 mg Oral tab 1 tab every 4-6 hours for Pain [Active]; Simvastatin Oral [Active]; - PMHx: 12:08 Asthma; Atrial Fib; Diabetes - NIDDM; Leaking Veins x2 Right Leg; neuropathy; sciatica; aj1 Sleep Apnea; - PSHx: 12:08 Right Knee Replacement; Hysterectomy; Hernia repair; Fibroid Tumor Removal; Tubal aj1 ligation; - Immunization history:: Adult Immunizations up to date. - Social history:: Smoking status: Patient uses tobacco products, Patient/guardian denies using alcohol. - Ebola Screening: : Patient negative for fever greater than or equal to 101.5 degrees Fahrenheit, and additional compatible Ebola Virus Disease symptoms Patient denies exposure to infectious person Patient denies travel to an Ebola-affected area in the 21 days before illness onset. Screenin:07 Abuse screen: Denies threats or abuse. Denies injuries from another. Nutritional aj1 screening: No deficits noted. Tuberculosis screening: No symptoms or risk factors identified. Fall Risk None identified. Assessment: 14:30 General: Behavior is cooperative, appropriate for age, anxious. Pain: Complains of pain bp in back. Neuro: Level of Consciousness is awake, alert, obeys commands, Oriented to person, place, time, situation, Appropriate for age. Cardiovascular: No deficits noted. Respiratory: Airway is patent Respiratory effort is even, unlabored, Respiratory pattern is regular, symmetrical. GI: No signs and/or symptoms were reported involving the gastrointestinal system. : No signs and/or symptoms were reported regarding the genitourinary system. EENT: No deficits noted. Derm: No deficits noted. Musculoskeletal: Circulation, motion, and sensation intact. Range of motion: intact in all extremities. 16:25 Reassessment: PT D/C HOME VIA W/C WITH FAMILY, DX WITH NON-TRAUMATIC CHEST WALL PAIN. bp Vital Signs: 12:09 BP 102 / 66; Pulse 67; Resp 18; Temp 100.2(O); Pulse Ox 99% on R/A; Weight 134.26 kg; aj1 Height 5 ft. 7 in. (170.18 cm); Pain 10/10; 13:28 BP 122 / 59; Pulse 65; Resp 17; Temp 98.7(O); Pulse Ox 97% on R/A; mh5 14:49 BP 120 / 72; Pulse 73; Resp 18; Pulse Ox 99% on R/A; mh5 16:15 BP 118 / 76; Pulse 69; Resp 14; Pulse Ox 98% ; bp 12:09 Body Mass Index 46.36 (134.26 kg, 170.18 cm) [facility] ED Course: 11:58 Patient arrived in ED. mr 11:58 Halle Shabazz MD is Private Physician. mr 12:07 Triage completed. aj1 12:09 Arm band placed on left wrist. aj1 12:10 Patient has correct armband on for positive identification. Placed in gown. Bed in low aj1 position. Call light in reach. Side rails up X 1. 12:35 Enrique Roca, DAKSHA is Primary Nurse. bp 12:47 Aman Sanchez MD is Attending Physician. kdr 13:20 Urine collected: clean catch specimen, cloudy. mh5 14:34 X-ray completed. Patient tolerated procedure well. Patient moved to radiology via ls3 wheelchair. 14:35 Ribs Right XRAY In Process Unspecified. EDMS 15:27 Halle Shabazz MD is Referral Physician. kdr 16:26 No provider procedures requiring assistance completed. Patient did not have IV access bp during this emergency room visit. Administered Medications: 15:00 Drug: TORadol 60 mg Route: IM; Site: right deltoid; bp 16:26 Follow up: Response: No adverse reaction; Pain is decreased bp 15:00 Drug: [place] 10 mg-325 mg 1 tabs Route: PO; bp 16:27 Follow up: Response: No adverse reaction; Pain is decreased bp 15:00 Drug: Robaxin 750 mg Route: PO; bp 16:27 Follow up: Response: No adverse reaction; Pain is decreased bp Outcome: 15:29 Discharge ordered by . kdr 16:26 Discharged to home via wheelchair, with family. bp 16:26 Condition: stable 16:26 Discharge instructions given to patient, Instructed on discharge instructions, follow up and referral plans. medication usage, Demonstrated understanding of instructions, follow-up care, medications, Prescriptions given X 1. 16:33 Patient left the ED. bp Signatures: Dispatcher [employer] EDMS Beatris Tyler RN RN aj1 Aman Sanchez MD MD kdr Lisset Simon mr CastellanoCeline 5 Enrique Roca, DAKSHA RN bp Valerie Miller 3 Corrections: (The following items were deleted from the chart) 12:11 12:09 Pulse 67bpm; Resp 18bpm; Pulse Ox 99% RA; Temp 100.2F Oral; 134.26 kg; Height 5 aj1 ft. 7 in.; BMI: 46.3; Pain 10/10; aj1
[2018-11-20 16:46] VITALS: TEMP 99.5
[2018-11-20 16:49] VITALS: BP 128/59; O2SAT 95
== END 2018-11-20 16:33 | disposition home or self-care (01) ==
LOC: ER 11:54
DX: R07.89 Other chest pain (principal); E11.9 Type 2 diabetes mellitus without complications; I48.91 Unspecified atrial fibrillation; G47.30 Sleep apnea, unspecified; G62.9 Polyneuropathy, unspecified; Z79.82 Long term (current) use of aspirin; Z79.01 Long term (current) use of anticoagulants; Z79.899 Other long term (current) drug therapy; Z72.0 Tobacco use
CPT/HCPCS: 81003; 81015; 87077; 87086; 87088; 87186; 96372; 99284

== ENCOUNTER 2018-12-02 15:41 | Emergency (ER) | payer OTHER ==
--- OUTSIDE RECORDS SUMMARY | 2018-12-02 15:43 | XMS REPORT ---
[...] Status Dosage System Date Date Albuterol Sulfate [facility] 85604081707 (5 MG/ML) 0.5% Active 1 ml as Inhalation needed every 6 hrs [place] [facility] 94200187374 5-325 MG Active 1 tablet as Orally every 6 needed hrs Celexa [facility] 46109050328 40 MG Orally Active 0.5 tablet Once a day Aspir-81 ND 77872585580 81 MG Orally Active 1 tablet Once a day Cozaar ND 37683418094 100 MG Orally Active 1 tablet Once a day Amlodipine Besylate ND 68584782731 10 MG Orally Feb Active 1 tablet Once a day 2017 Omeprazole [facility] 78930479766 40 MG Orally Active 1 capsule Once a day Combivent ND 0 Active not defined Flovent Diskus ND 00864969647 100 MCG/BLIST Active 1 puff Inhalation Twice a day Neurontin [facility] 54194967771 600 MG Orally Active 1 tablet Once a day Hydrochlorothiazide ND 86922505526 25 MG Orally Active 1 tablet in Once a day the morning Coreg ND 04184467280 25 MG Orally Active not defined Potassium Chloride ER [facility] 18074771113 10MEQ ER Active TAKE ONE TABLET BY MOUTH ONCE DAILY Norvasc [facility] 10979025601 5 MG Orally Active 2 tablet Once a day Flovent HFA ND 10161500029 110 MCG/ACT Active 1 puff Inhalation Twice a day Levaquin ND 07676817621 500 MG Orally Sept Oct Active 1 tablet Once a day 2017 Potassium Chloride ER [facility] 23879955557 10MEQ ER Active TAKE ONE TABLET BY MOUTH ONCE DAILY Singulair ND 68100314991 10 MG Orally Active 1 tablet in Once a day the evening Combivent Respimat [facility] 27167611408 20-100 MCG/ACT Active 1 puff Inhalation Four times a day Ferrous Sulfate [facility] 51649992513 325 (65 Fe) MG Active 1 tablet Orally Once a day Omeprazole ND 39214384883 40MG Active TAKE ONE CAPSULE BY MOUTH ONCE DAILY Mupirocin [facility] 36319789017 2 % Externally Sept Oct Active 1 two times a , 2017 to affected area Dexilant ND 43892923711 60 MG Orally [place] Active 1 capsule Once a day 2017 Klor-Con M10 [facility] 85784428067 10 MEQ Orally Active 1 tablet Twice a day with food Simvastatin [facility] 74829476256 20MG Active TAKE ONE TABLET BY MOUTH ONCE DAILY Flonase [facility] 75204639077 50 MCG/ACT Active 1 spray in Nasally Once a each nostril day Doxycycline Hyclate [facility] 20134478709 100 MG Orally Sept Active 1 capsule twice a day 2017 Zanaflex [facility] 34951734469 4 MG Orally Active 1 tablet as twice times a needed day Simvastatin [facility] 81358713515 20 MG Orally Active 1 tablet in Once a day the evening Results No Known Results Summary Purpose eClinicalWorks Submission
--- OUTSIDE RECORDS SUMMARY | 2018-12-02 15:44 | XMS REPORT ---
[...] Start End Status Dosage System Date Date [facility] 35937170043 5-325 MG Active 1 tablet Orally every 6 as needed hrs Ferrous Sulfate [facility] 46702902346 325 (65 Fe) MG Active 1 tablet Orally Once a day Omeprazole [facility] 58532679578 40MG Active TAKE ONE CAPSULE BY MOUTH ONCE DAILY Celexa [facility] 71101856776 40 MG Orally Active 0.5 Once a day tablet Coreg [facility] 50152255830 25 MG Orally Active not defined Omeprazole [facility] 33053910465 40 MG Orally Active 1 capsule Once a day Hydrochlorothiazide [facility] 65152424568 25 MG Orally Active 1 tablet Once a day in the morning Flovent Diskus [facility] 44555889636 100 MCG/BLIST Active 1 puff Inhalation Twice a day Potassium Chloride ER [facility] 08987410562 10MEQ ER Active TAKE ONE TABLET BY MOUTH ONCE DAILY Albuterol Sulfate [facility] 49403514130 (5 MG/ML) 0.5% Active 1 ml as Inhalation needed every 6 hrs Klor-Con M10 [facility] 57825783157 10 MEQ Orally Active 1 tablet Twice a day with food Flonase [facility] 74442906987 50 MCG/ACT Active 1 spray Nasally Once a in each day nostril Potassium Chloride ER [facility] 41152199172 10MEQ ER Active TAKE ONE TABLET BY MOUTH ONCE DAILY Singulair [facility] 45657737415 10 MG Orally Active 1 tablet Once a day in the evening Combivent Respimat [facility] 49571575722 20-100 MCG/ACT Active 1 puff Inhalation Four times a day - [facility] 62808698677 81 MG Orally Active 1 tablet Once a day Amlodipine Besylate [facility] 94215472010 10 MG Orally Jan 22, Active 1 tablet Once a day 2017 Dexilant [facility] 55853335013 60 MG Orally [place] Active 1 capsule Once a day 2017 Simvastatin [facility] 08259333038 20MG Active TAKE ONE TABLET BY MOUTH ONCE DAILY Neurontin [facility] 02746083571 600 MG Orally Active 1 tablet Once a day Combivent NDC 0 Active not defined Norvasc [facility] 23040481167 5 MG Orally Active 2 tablet Once a day Simvastatin [facility] 11760294048 20 MG Orally Active 1 tablet Once a day in the evening Zanaflex [facility] 70423922485 4 MG Orally Active 1 tablet twice times a as needed day Flovent HFA [facility] 77562069174 110 MCG/ACT Active 1 puff Inhalation Twice a day Cozaar [facility] 89917974720 100 MG Orally Active 1 tablet Once a day Results No Known Results Summary Purpose eClinicalWorks Submission
--- NOTE | 2018-12-02 17:00 | RAD REPORT ---
EXAM DESCRIPTION: CT - Stone Protocol - 12/02/2018 4:33 pm CLINICAL HISTORY: Abdominal pain. Right sided pain COMPARISON: 2012 TECHNIQUE: Computed axial tomography of the abdomen pelvis was obtained without oral or IV contrast. Lack of IV and oral contrast limits evaluation of solid organs, bowel, and vessels. Coronal reformat carlos images were obtained and reviewed. All CT scans are performed using dose optimization technique as appropriate and may include automated exposure control or mA/KV adjustment according to patient size. FINDINGS: A renal calculus is not seen. An ureteral calculus is not noted. A bladder calculus is not present. Fatty liver The Spleen, pancreas and adrenals appear grossly normal There is no evidence of diverticulitis. An abnormal appendix is not seen A hysterectomy has been performed Small umbilical hernia contains fat IMPRESSION: Negative for a genitourinary calculus
--- NOTE | 2018-12-02 17:10 | ER ---
Nurse's Notes [facility] Name: Madhavi Michael Age: 52 yrs Sex: Female : 1965 Arrival Date: 12/02/2018 Time: 15:46 Bed 26 Private MD: Halle Shabazz Diagnosis: right flank pain Presentation: 12/02 15:59 Presenting complaint: Patient states: pain to right lateral aspect of abdomen. Pt aa5 states "I was seen here a few weeks ago but it's not getting better". pt denies injury, pt denies N/V/D. Transition of care: patient was not received from another setting of care. Onset of symptoms was October 2018. Risk Assessment: Do you want to hurt yourself or someone else? Patient reports no desire to harm self or others. Initial Sepsis Screen: Does the patient meet any 2 criteria? No. Patient's initial sepsis screen is negative. Does the patient have a suspected source of infection? No. Patient's initial sepsis screen is negative. Care prior to arrival: None. 15:59 Method Of Arrival: Wheelchair aa5 15:59 Acuity: SISSY 3 aa5 Triage Assessment: 16:42 General: Behavior is calm, cooperative. 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 - Social history:: Smoking status: Patient uses tobacco products, smokes one-half pack cigarettes per day. - Ebola Screening: : No symptoms or risks identified at this time. Screenin:40 Abuse screen: Denies threats or abuse. Denies injuries from another. Nutritional ls4 screening: No deficits noted. Tuberculosis screening: No symptoms or risk factors identified. Fall Risk None identified. Assessment: 16:38 General: Appears uncomfortable. Pain: Complains of pain in posterior aspect of right ls4 lateral abdomen and right upper quadrant Pain currently is 10 out of 10 on a pain scale. Respiratory: No deficits noted. GI: Abdomen is non-distended, obese, Bowel sounds present X 4 quads. Abdomen is tender to palpation in right upper quadrant Reports Patient currently denies. Musculoskeletal: No deficits noted. 17:10 Reassessment: Patient appears in no apparent distress at this time. Patient and/or ls4 family updated on plan of care and expected duration. Pain level reassessed. Patient is alert, oriented x 3, equal unlabored respirations, skin warm/dry/pink. Vital Signs: 16:01 BP 124 / 61; Pulse 81; Resp 18 S; Temp 99.0(TE); Pulse Ox 97% on R/A; Weight 137.44 kg aa5 (R); Height 5 ft. 7 in. (170.18 cm) (R); Pain 10/10; 17:21 BP 122 / 60; Pulse 77; Resp 16; Temp 98.4; Pulse Ox 99% on R/A; Pain 10/10; ls4 16:01 Body Mass Index 47.46 (137.44 kg, 170.18 cm) aa5 ED Course: 15:46 Patient arrived in ED. sb2 15:47 Halle Shabazz MD is Private Physician. sb2 15:59 Triage completed. aa5 15:59 Arm band placed on. aa5 16:05 [facility]C [facility]. kb 16:05 Arnulfo Pelayo MD is Attending Physician. kb 16:34 CT Stone Protocol In Process Unspecified. EDMS 16:40 Patient has correct armband on for positive identification. Placed in gown. Bed in low ls4 position. Call light in reach. Side rails up X 1. 16:40 No provider procedures requiring assistance completed. ls4 17:09 Halle Shabazz MD is Referral Physician. kb 17:10 Sheri Jorgensen, DAKSHA is Primary Nurse. ls4 17:19 Patient did not have IV access during this emergency room visit. ls4 Administered Medications: No medications were administered Outcome: 17:09 Discharge ordered by . kb 17:19 Discharged to home via wheelchair, with family. ls4 17:19 Condition: stable 17:19 Discharge instructions given to patient, family, Instructed on discharge instructions, follow up and referral plans. medication usage, safety practices, Demonstrated understanding of instructions, follow-up care, medications. 17:22 Patient left the ED. ls4 Signatures: Dispatcher [employer] EDMS Filemon, Linda, TOOL MAKER BENCH-C TOOL MAKER BENCH-Ckb Gracie Mayorga, RN RN aa5 Marcela Nair sb2 Sheri Jorgensen, RN RN ls4
--- NOTE | 2018-12-02 17:10 | EDPHYS ---
Physician Documentation [facility] Name: Madhavi Michael Age: 52 yrs Sex: Female : 1965 Arrival Date: 12/02/2018 Time: 15:46 Bed 26 Private MD: Halle Shabazz ED Physician Arnulfo Pelayo HPI: 12/02 17:28 This 52 yrs old Black Female presents to ER via Wheelchair with complaints of SIDE PAIN.kb 18:18 The patient complains of pain in the right mid back. The pain radiates to the right kb upper quadrant. Onset: The symptoms/episode began/occurred November 17, 2018. Modifying factors: The symptoms are alleviated by nothing. the symptoms are aggravated by movement, picking something up with right arm. Associated signs and symptoms: Pertinent negatives: diarrhea, dizziness, dysuria, fever, urinary frequency, headache, hematuria, nausea, pain radiating to the lower extremities, vomiting. Severity of pain: At its worst the pain was moderate in the emergency department the pain is unchanged. The patient has not experienced similar symptoms in the past. The patient has been recently seen at the [facility] Emergency Department, a couple of weeks ago, for similar complaints X-rays were performed. Pt states she started having right mid back/flank pain on Nov 17, 2018. Was seen here on 11/20/18 and diagnosed with muscle spasm. States the flexeril isn't helping, pain has persisted. Denies injury of trauma. States she was called after her visit and told her urine culture showed a UTI so she has been on Macrobid. Will take her last one tonight. . 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 - Social history:: Smoking status: Patient uses tobacco products, smokes one-half pack cigarettes per day. - Ebola Screening: : No symptoms or risks identified at this time. ROS: 17:27 Constitutional: Negative for fever, chills, and weight loss, Cardiovascular: Negative kb for chest pain, palpitations, and edema, Respiratory: Negative for shortness of breath, cough, wheezing, and pleuritic chest pain, Abdomen/GI: Negative for abdominal pain, nausea, vomiting, diarrhea, and constipation, MS/Extremity: Negative for injury and deformity, Skin: Negative for injury, rash, and discoloration, Neuro: Negative for headache, weakness, numbness, tingling, and seizure. 17:27 Back: Positive for pain with movement, flank pain, radiated pain, of the right mid back. Exam: 18:18 Constitutional: This is a well developed, well nourished patient who is awake, alert, kb and in no acute distress. Head/Face: Normocephalic, atraumatic. Chest/axilla: Normal chest wall appearance and motion. Nontender with no deformity. No lesions are appreciated. Cardiovascular: Regular rate and rhythm with a normal S1 and S2. No gallops, murmurs, or rubs. Normal PMI, no JVD. No pulse deficits. Respiratory: Lungs have equal breath sounds bilaterally, clear to auscultation and percussion. No rales, rhonchi or wheezes noted. No increased work of breathing, no retractions or nasal flaring. Abdomen/GI: Soft, non-tender, with normal bowel sounds. No distension or tympany. No guarding or rebound. No evidence of tenderness throughout. Skin: Warm, dry with normal turgor. Normal color with no rashes, no lesions, and no evidence of cellulitis. MS/ Extremity: Pulses equal, no cyanosis. Neurovascular intact. Full, normal range of motion. Neuro: Awake and alert, GCS 15, oriented to person, place, time, and situation. Cranial nerves II-XII grossly intact. Motor strength 5/5 in all extremities. Sensory grossly intact. Cerebellar exam normal. Normal gait. 18:18 Back: pain, that is moderate, of the right mid back. Vital Signs: 16:01 BP 124 / 61; Pulse 81; Resp 18 S; Temp 99.0(TE); Pulse Ox 97% on R/A; Weight 137.44 kg aa5 (R); Height 5 ft. 7 in. (170.18 cm) (R); Pain 10/10; 17:21 BP 122 / 60; Pulse 77; Resp 16; Temp 98.4; Pulse Ox 99% on R/A; Pain 10/10; ls4 16:01 Body Mass Index 47.46 (137.44 kg, 170.18 cm) aa5 MDM: 16:05 Patient medically screened. kb 17:08 Data reviewed: vital signs, nurses notes. Data interpreted: Pulse oximetry: on room air kb is 97 %. Interpretation: normal. Counseling: I had a detailed discussion with the patient and/or guardian regarding: the historical points, exam findings, and any diagnostic results supporting the discharge/admit diagnosis, radiology results, the need for outpatient follow up, a family practitioner, to return to the emergency department if symptoms worsen or persist or if there are any questions or concerns that arise at home. 12/02 16:11 Order name: CT Stone Protocol; Complete Time: 17:02 kb Administered Medications: No medications were administered Disposition: 17:56 Co-signature as Attending Physician, Arnulfo Pelayo MD. rn Disposition: 12/02/18 17:09 Discharged to Home. Impression: right flank pain. - Condition is Stable. - Discharge Instructions: Musculoskeletal Pain, Flank Pain, [id number]. - Prescriptions for Tramadol 50 mg Oral Tablet - take 1 tablet by ORAL route every 8 hours as needed; 12 tablet. - Medication Reconciliation Form, Thank You Letter, Antibiotic Education, Prescription Opioid Use form. - Follow up: Emergency Department; When: As needed; Reason: Worsening of condition. Follow up: Halle Shabazz MD; When: 2 - 3 days; Reason: Recheck today's complaints, Continuance of care, Re-evaluation by your physician. Signatures: Dispatcher [employer] [facility] Linda Colbert, CASINO CHANGE ATTENDANT-C CASINO CHANGE ATTENDANT-Ckb Arnulfo Pelayo MD MD rn Calderon, Audri, RN RN aa5 Sheri Jorgensen, RN RN ls4 Corrections: (The following items were deleted from the chart) 17:16 17:03 Abdomen Limited+[id number].RAD.BRZ ordered. [facility] 17:22 17:09 12/02/2018 17:09 Discharged to Home. Impression: right flank pain. Condition is ls4 Stable. Forms are Medication Reconciliation Form, Thank You Letter, Antibiotic Education, Prescription Opioid Use. Follow up: Emergency Department; When: As needed; Reason: Worsening of condition. Follow up: Halle Shabazz; When: 2 - 3 days; Reason: Recheck today's complaints, Continuance of care, Re-evaluation by your physician. kb
[2018-12-02 22:40] VITALS: BP 122/60; TEMP 98.4; O2SAT 99
== END 2018-12-02 17:22 | disposition home or self-care (01) ==
LOC: ER 15:41
DX: M54.9 Dorsalgia, unspecified (principal); F17.210 Nicotine dependence, cigarettes, uncomplicated
CPT/HCPCS: 74176; 76377; 99283

== ENCOUNTER 2018-12-06 19:24 | Emergency (ER) | payer OTHER ==
--- OUTSIDE RECORDS SUMMARY | 2018-12-06 19:27 | XMS REPORT ---
[...] Start End Status Dosage System Date Date [facility] 23633435678 5-325 MG Active 1 tablet Orally every 6 as needed hrs Ferrous Sulfate [facility] 63086090429 325 (65 Fe) MG Active 1 tablet Orally Once a day Omeprazole [facility] 22151426084 40MG Active TAKE ONE CAPSULE BY MOUTH ONCE DAILY Celexa [facility] 44327438004 40 MG Orally Active 0.5 Once a day tablet Coreg [facility] 72889911716 25 MG Orally Active not defined Omeprazole [facility] 29128163818 40 MG Orally Active 1 capsule Once a day Hydrochlorothiazide [facility] 50821786192 25 MG Orally Active 1 tablet Once a day in the morning Flovent Diskus [facility] 91048809881 100 MCG/BLIST Active 1 puff Inhalation Twice a day Potassium Chloride ER [facility] 51750266877 10MEQ ER Active TAKE ONE TABLET BY MOUTH ONCE DAILY Albuterol Sulfate [facility] 68217405030 (5 MG/ML) 0.5% Active 1 ml as Inhalation needed every 6 hrs Klor-Con M10 [facility] 93356604849 10 MEQ Orally Active 1 tablet Twice a day with food Flonase [facility] 34058247803 50 MCG/ACT Active 1 spray Nasally Once a in each day nostril Potassium Chloride ER [facility] 46865929729 10MEQ ER Active TAKE ONE TABLET BY MOUTH ONCE DAILY Singulair [facility] 35012566914 10 MG Orally Active 1 tablet Once a day in the evening Combivent Respimat [facility] 71576830057 20-100 MCG/ACT Active 1 puff Inhalation Four times a day - [facility] 76727301938 81 MG Orally Active 1 tablet Once a day Amlodipine Besylate [facility] 87028816516 10 MG Orally Jan 22, Active 1 tablet Once a day 2017 Dexilant [facility] 31454571957 60 MG Orally [place] Active 1 capsule Once a day 2017 Simvastatin [facility] 27535726541 20MG Active TAKE ONE TABLET BY MOUTH ONCE DAILY Neurontin [facility] 43328493430 600 MG Orally Active 1 tablet Once a day Combivent NDC 0 Active not defined Norvasc [facility] 28848649582 5 MG Orally Active 2 tablet Once a day Simvastatin [facility] 50869506716 20 MG Orally Active 1 tablet Once a day in the evening Zanaflex [facility] 33008552719 4 MG Orally Active 1 tablet twice times a as needed day Flovent HFA [facility] 94896588834 110 MCG/ACT Active 1 puff Inhalation Twice a day Cozaar [facility] 43400953254 100 MG Orally Active 1 tablet Once a day Results No Known Results Summary Purpose eClinicalWorks Submission
--- OUTSIDE RECORDS SUMMARY | 2018-12-06 19:27 | XMS REPORT ---
[...] Status Dosage System Date Date Albuterol Sulfate [facility] 34104227342 (5 MG/ML) 0.5% Active 1 ml as Inhalation needed every 6 hrs [place] [facility] 89986187136 5-325 MG Active 1 tablet as Orally every 6 needed hrs Celexa [facility] 29063257506 40 MG Orally Active 0.5 tablet Once a day Aspir-81 ND 44237820592 81 MG Orally Active 1 tablet Once a day Cozaar ND 12276439284 100 MG Orally Active 1 tablet Once a day Amlodipine Besylate ND 74981060256 10 MG Orally Feb Active 1 tablet Once a day 2017 Omeprazole [facility] 14864075543 40 MG Orally Active 1 capsule Once a day Combivent ND 0 Active not defined Flovent Diskus ND 28265961914 100 MCG/BLIST Active 1 puff Inhalation Twice a day Neurontin [facility] 58115557344 600 MG Orally Active 1 tablet Once a day Hydrochlorothiazide ND 79295082912 25 MG Orally Active 1 tablet in Once a day the morning Coreg ND 37682786173 25 MG Orally Active not defined Potassium Chloride ER [facility] 80478138230 10MEQ ER Active TAKE ONE TABLET BY MOUTH ONCE DAILY Norvasc [facility] 26293286509 5 MG Orally Active 2 tablet Once a day Flovent HFA ND 13687802285 110 MCG/ACT Active 1 puff Inhalation Twice a day Levaquin ND 58218103251 500 MG Orally Sept Oct Active 1 tablet Once a day 2017 Potassium Chloride ER [facility] 92831320380 10MEQ ER Active TAKE ONE TABLET BY MOUTH ONCE DAILY Singulair ND 92339942229 10 MG Orally Active 1 tablet in Once a day the evening Combivent Respimat [facility] 35359947120 20-100 MCG/ACT Active 1 puff Inhalation Four times a day Ferrous Sulfate [facility] 42767677405 325 (65 Fe) MG Active 1 tablet Orally Once a day Omeprazole ND 97026196655 40MG Active TAKE ONE CAPSULE BY MOUTH ONCE DAILY Mupirocin [facility] 29059397062 2 % Externally Sept Oct Active 1 two times a , 2017 to affected area Dexilant ND 09173302593 60 MG Orally Chelsea Active 1 capsule Once a day 2017 Klor-Con M10 [facility] 40582615257 10 MEQ Orally Active 1 tablet Twice a day with food Simvastatin [facility] 67508806336 20MG Active TAKE ONE TABLET BY MOUTH ONCE DAILY Flonase [facility] 20194389720 50 MCG/ACT Active 1 spray in Nasally Once a each nostril day Doxycycline Hyclate [facility] 55654669875 100 MG Orally Sept Active 1 capsule twice a day 2017 Zanaflex [facility] 25983088572 4 MG Orally Active 1 tablet as twice times a needed day Simvastatin [facility] 72139073862 20 MG Orally Active 1 tablet in Once a day the evening Results No Known Results Summary Purpose eClinicalWorks Submission
--- NOTE | 2018-12-06 20:50 | RAD REPORT ---
EXAM DESCRIPTION: RAD - Chest Single View - 12/06/2018 8:41 pm CLINICAL HISTORY: DYSPNEA Chest pain. COMPARISON: Chest Single View dated 03/11/2018; Chest Single View dated 11/22/2017; Chest Single View dated 09/10/2017; Chest Single View dated 02/10/2017 FINDINGS: Portable technique limits examination quality. The lungs are grossly clear. The heart is normal in size. No displaced fractures. IMPRESSION: No acute intrathoracic process suspected.
[2018-12-06 20:52] LABS: Absolute Lymphocytes (CBC) 2.2 K/uL (0.7-4.9); Absolute Monocytes 0.6 K/uL (0.1-1.3); Basophils % 0.7 % (0-1.3); Hematocrit 42.2 % (36.0-45.0); Lymphocytes % 36.7 % (15.3-44.8); MPV 10.4 fL (7.6-11.3); Monocytes % 9.9 % (3.3-12.3); RBC Red Blood Cell Count 4.88 M/uL (3.86-4.86)
[2018-12-06 21:05] LABS: Protime INR 1.07
[2018-12-06] MEDS ORDERED: ONDANSETRON 4 MG/2 ML VIAL ONE (21:08)
[2018-12-06] MEDS ORDERED: FENTANYL CITR 100 MCG/2 ML ONE (21:08)
[2018-12-06] MEDS ORDERED: NA CHLORIDE 0.9% 1,000 ML ONE (21:08)
[2018-12-06 21:10] LABS: Urine Blood TRACE (NEG); Urine Glucose NEGATIVE (NEG); Urine Protein NEGATIVE (NEG); Urine Specific Gravity 1.015 (1.005-1.030); Urine pH 5.5 (5.0-7.0)
[2018-12-06 21:13] LABS: ALT/SGPT 44 U/L (12-78); AST/SGOT 33 U/L (15-37); Albumin 3.6 g/dL (3.4-5.0); Alkaline Phosphatase 58 U/L (45-117); BUN Blood Urea Nitrogen 14 mg/dL (7-18); Bicarbonate 29 mmol/L (21-32); Bilirubin Direct 0.1 mg/dL (0-0.2); Bilirubin Total 0.7 mg/dL (0.2-1.0); Glucose Level 92 mg/dL (74-106); Lipase 162 U/L (73-393); Magnesium 2.3 mg/dL (1.8-2.4); NT PRO-BNP 29 pg/mL (<125); Potassium 3.6 mmol/L (3.5-5.1); Protein, Total 7.1 g/dL (6.4-8.2); Sodium Level 142 mmol/L (136-145); Troponin (Emerg Dept Use Only) < 0.02 ng/mL (0.0-0.045)
[2018-12-06] MEDS ORDERED: CEFTRIAXONE/SWI 1gm 1 GM/10 ML SYR ONE (21:55)
[2018-12-07] MEDS ORDERED: CIPROFLOXACIN HCL 500 MG TAB ONE (00:14)
--- NOTE | 2018-12-07 00:18 | ER ---
Nurse's Notes [facility] Name: Madhavi Michael Age: 52 yrs Sex: Female : 1965 Arrival Date: 12/06/2018 Time: 19:28 Bed 7 Private MD: Halle Shabazz Diagnosis: Cystitis;Abdominal tenderness;Type 2 diabetes mellitus Presentation: 12/06 19:40 Presenting complaint: Patient states: this is her third visit here since 11/20 for the bb same thing she is having pain to right side of abdomen radiating to her back denies N/V/D, no fever, pain is constant and is 10/10. Transition of care: patient was not received from another setting of care. Onset of symptoms was November 19, 2018. Risk Assessment: Do you want to hurt yourself or someone else? Patient reports no desire to harm self or others. Initial Sepsis Screen: Does the patient meet any 2 criteria? No. Patient's initial sepsis screen is negative. Does the patient have a suspected source of infection? No. Patient's initial sepsis screen is negative. Care prior to arrival: None. 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: 19:45 LMP N/A - Hysterectomy bb Historical: - Allergies: 19:45 NKA; bb - Home Meds: 19:45 amlodipine 10 mg tab [Active]; aspirin 81 mg Oral TbEC 1 tab once daily [Active]; bb carvedilol 25 mg Oral tab 1 tab 2 times per day [Active]; Eliquis 2.5 mg Oral tab 1 tab 2 times per day [Active]; Flovent Inhl [Active]; gabapentin 600 mg Oral tab 1 tab 3 times per day [Active]; Iron CR 324mg Oral daily [Active]; [place] 10-325 mg Oral tab 1 tab every 4-6 hours for Pain [Active]; Simvastatin Oral [Active]; - PMHx: 19:45 Asthma; Atrial Fib; Diabetes - NIDDM; Leaking Veins x2 Right Leg; neuropathy; sciatica; bb Sleep Apnea; - PSHx: 19:45 Right Knee Replacement; Hysterectomy; Hernia repair; Fibroid Tumor Removal; Tubal bb ligation; - Immunization history:: Adult Immunizations up to date. - Social history:: Smoking status: Patient uses tobacco products, smokes one pack cigarettes per day. - Ebola Screening: : No symptoms or risks identified at this time. - Family history:: not pertinent, pertinent for. Screenin:05 Abuse screen: Denies threats or abuse. Denies injuries from another. Nutritional ed1 screening: No deficits noted. Tuberculosis screening: No symptoms or risk factors identified. Fall Risk No fall in past 12 months (0 pts). No secondary diagnosis (0 pts). IV access (20 points). Ambulatory Aid- None/Bed Rest/Nurse Assist (0 pts). Gait- Normal/Bed Rest/Wheelchair (0 pts) Mental Status- Oriented to own ability (0 pts). Total Mathis Fall Scale indicates No Risk (0-24 pts). Assessment: 20:05 General: Appears uncomfortable, Behavior is calm, cooperative. Pain: Complains of pain ed1 in abdomen Pain radiates to back Pain currently is 10 out of 10 on a pain scale. Quality of pain is described as sharp, Pain began began about 3 weeks ago and has not resolved. Neuro: Level of Consciousness is awake, alert, obeys commands, Oriented to person, place, time, situation. Cardiovascular: Denies chest pain, Heart tones S1 S2 present. Respiratory: Airway is patent Respiratory effort is even, unlabored, Respiratory pattern is regular, symmetrical, Breath sounds are clear bilaterally. GI: Abdomen is round non-distended, Bowel sounds present X 4 quads. Abd is soft and non tender X 4 quads. Reports upper abdominal pain, normal bowel habits, Patient currently denies diarrhea, nausea, vomiting. : Reports completing antibiotics for UTI Denies burning with urination, urinary frequency, urgency. EENT: No signs and/or symptoms were reported regarding the EENT system. Derm: Skin is intact, is healthy with good turgor, Skin is dry, Skin is normal, Skin temperature is warm. Musculoskeletal: Circulation, motion, and sensation intact. Capillary refill < 3 seconds, in bilateral fingers. Range of motion: intact in all extremities. 20:30 Reassessment: I agree with above assessment. lp1 21:05 Reassessment: Patient appears in no apparent distress at this time. No changes from ed1 previously documented assessment. Patient and/or family updated on plan of care and expected duration. Pain level reassessed. Patient is alert, oriented x 3, equal unlabored respirations, skin warm/dry/pink. Pt finished oral contrast for CT. CT. notified. Patient states symptoms have not improved. 21:53 Reassessment: Patient appears in no apparent distress at this time. No changes from ed1 previously documented assessment. Patient and/or family updated on plan of care and expected duration. Pain level reassessed. Patient is alert, oriented x 3, equal unlabored respirations, skin warm/dry/pink. Patient states symptoms have not improved. 22:58 Reassessment: Patient appears in no apparent distress at this time. Patient and/or ed1 family updated on plan of care and expected duration. Pain level reassessed. Patient is alert, oriented x 3, equal unlabored respirations, skin warm/dry/pink. Patient states feeling better. Patient states symptoms have improved. 12/07 00:29 Reassessment: Patient appears in no apparent distress at this time. Patient and/or ed1 family updated on plan of care and expected duration. Pain level reassessed. Patient is alert, oriented x 3, equal unlabored respirations, skin warm/dry/pink. Patient states feeling better. Patient states symptoms have improved. Vital Signs: 12/06 19:45 BP 118 / 74; Pulse 71; Resp 16 S; Temp 98.8(O); Pulse Ox 99% on R/A; Weight 133.36 kg bb (R); Height 5 ft. 7 in. (170.18 cm) (R); Pain 10/10; 21:53 BP 111 / 71; Pulse 76; Resp 16; Pulse Ox 98% on R/A; Pain 9/10; ed1 22:58 BP 93 / 61; Pulse 67; Resp 18; Pulse Ox 98% on R/A; Pain 6/10; ed1 22:59 Pain 6/10; ed1 23:42 BP 94 / 63; Pulse 60; Resp 16; Pulse Ox 99% ; ms 12/07 00:29 BP 98 / 74; Pulse 62; Resp 16; Temp 98.2(O); Pulse Ox 99% on R/A; Pain 3/10; ed1 12/06 19:45 Body Mass Index 46.05 (133.36 kg, 170.18 cm) ED Course: 12/06 19:28 Patient arrived in ED. es 19:28 Halle Shabazz MD is Private Physician. es 19:42 Triage completed. bb 19:45 Arm band placed on Patient placed in an exam room, on a stretcher, on pulse oximetry. bb 20:04 Marcin Manuel MD is Attending Physician. ray 20:24 Oral contrast given. jj2 20:43 XRAY Chest (1 view) In Process Unspecified. EDMS 20:46 Inserted saline lock: 20 gauge in right antecubital area, using aseptic technique. lt1 21:05 Oral contrast reported to be complete. vm2 21:05 Patient has correct armband on for positive identification. Placed in gown. Bed in low ed1 position. Call light in reach. Side rails up X 1. Adult w/ patient. 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 Pulse ox on. NIBP on. Door closed. Visitors limited. Warm blanket given. 21:42 Chela Leonard, DAKSHA is Primary Nurse. lp1 21:[address] Scan. ed1 23:19 CT Abd/Pelvis - W/Contrast In Process Unspecified. EDMS 01/12 00:15 Halle Shabazz MD is Referral Physician. ray 00:29 No provider procedures requiring assistance completed. IV discontinued, intact, ed1 bleeding controlled, No redness/swelling at site. Pressure dressing applied. Administered Medications: / 21:04 Not Given (Duplicate Order): NS 0.9% 1000 ml IV at 125 ml/hr continuous ed1 21:05 Drug: NS 0.9% 1000 ml Route: IV; Rate: 125 ml/hr; Site: right antecubital; ed1 01/12 00:32 Follow up: IV Status: Pt discharged; IV Intake: 375ml ed1 01/11 21:05 Drug: fentaNYL (PF) 25 mcg Route: IVP; Site: right antecubital; lp1 21:49 Follow up: Response: No adverse reaction; Pain is unchanged, physician notified ed1 21:05 Drug: Zofran 4 mg Route: IVP; Site: right antecubital; lp1 21:49 Follow up: Response: No adverse reaction; Nausea is decreased ed1 21:48 Drug: Rocephin - (cefTRIAXone) 1 grams Route: IVPB; Infused Over: 30 mins; Site: right ed1 antecubital; 21:49 Follow up: Response: No adverse reaction; IV Status: Completed infusion ed1 21:53 Drug: fentaNYL (PF) 25 mcg Route: IVP; Site: right antecubital; ed1 22:59 Follow up: Pain 6/10 Adult; Response: No adverse reaction; Pain is decreased ed1 12/07 00:14 Drug: Cipro 500 mg Route: PO; ed1 00:31 Follow up: Response: No adverse reaction ed1 Intake: 00:32 IV: 375ml; Total: 375ml. ed1 Outcome: 00:16 Discharge ordered by . ray 00:29 Discharged to home via wheelchair, with family. ed1 00:29 Condition: good 00:29 Discharge instructions given to patient, Instructed on discharge instructions, follow up and referral plans. medication usage, Demonstrated understanding of instructions, follow-up care, medications, Prescriptions given X 4. 00:32 Patient left the ED. ed1 Addendum: 12/10/2018 07:43 Addendum: Culture Results: Positive urine culture. No further action required. Bacteria i w sensitive to prescribed antibiotic. Signatures: Dispatcher [employer] EDMS Marcin Manuel MD MD cha Salyer, Edna es Jaramillo, Justin jInga Dwyer, RN RN Kiera Pizarro, RN Celine Martell ms, Erika, GREY WASHER GREY WASHER ed1 Chela Leonard RN RN 1 Sara Carrion 2 Susi Reilly [facility]
--- NOTE | 2018-12-07 00:18 | EDPHYS ---
Physician Documentation [facility] Name: Madhavi Michael Age: 52 yrs Sex: Female : 1965 Arrival Date: 12/06/2018 Time: 19:28 Bed 7 Private MD: Halle Shabazz ED Physician Marcin Manuel HPI: 12/06 20:20 This 52 yrs old Black Female presents to ER via Ambulatory with complaints of Flank ray Pain, Back Pain. 20:20 The patient complains of pain in the right mid back and right low back. ray 20:21 The patient presents with abdominal pain in the upper abdomen, in the right upper ray quadrant, abdominal distention in the upper abdomen, in the lower abdomen. Onset: The symptoms/episode began/occurred 3 day(s) ago. The patient complains of pain in the right mid back and right low back. The pain radiates to the right mid back and right low back. Onset: The symptoms/episode began/occurred 14 day(s) ago. Modifying factors: The symptoms are alleviated by nothing. the symptoms are aggravated by movement, palpation/percussion. Associated signs and symptoms: The patient has no apparent associated signs or symptoms. The symptoms do not radiate. Modifying factors: The symptoms are alleviated by remaining still, the symptoms are aggravated by breathing deeply, movement, pressure. 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 - Hysterectomy bb Historical: - Allergies: 19:45 NKA; bb - Home Meds: 19:45 amlodipine 10 mg tab [Active]; aspirin 81 mg Oral TbEC 1 tab once daily [Active]; bb carvedilol 25 mg Oral tab 1 tab 2 times per day [Active]; Eliquis 2.5 mg Oral tab 1 tab 2 times per day [Active]; Flovent Inhl [Active]; gabapentin 600 mg Oral tab 1 tab 3 times per day [Active]; Iron CR 324mg Oral daily [Active]; [place] 10-325 mg Oral tab 1 tab every 4-6 hours for Pain [Active]; Simvastatin Oral [Active]; - PMHx: 19:45 Asthma; Atrial Fib; Diabetes - NIDDM; Leaking Veins x2 Right Leg; neuropathy; sciatica; bb Sleep Apnea; - PSHx: 19:45 Right Knee Replacement; Hysterectomy; Hernia repair; Fibroid Tumor Removal; Tubal bb ligation; - Immunization history:: Adult Immunizations up to date. - Social history:: Smoking status: Patient uses tobacco products, smokes one pack cigarettes per day. - Ebola Screening: : No symptoms or risks identified at this time. - Family history:: not pertinent, pertinent for. ROS: 20:21 Constitutional: Negative for fever, chills, and weight loss, Eyes: Negative for injury, ray pain, redness, and discharge, ENT: Negative for injury, pain, and discharge, Neck: Negative for injury, pain, and swelling, Cardiovascular: Negative for chest pain, palpitations, and edema, Respiratory: Negative for shortness of breath, cough, wheezing, and pleuritic chest pain, Back: Negative for injury and pain, : Negative for injury, bleeding, discharge, and swelling, MS/Extremity: Negative for injury and deformity, Skin: Negative for injury, rash, and discoloration, Neuro: Negative for headache, weakness, numbness, tingling, and seizure. 20:21 Abdomen/GI: Positive for abdominal pain, of the epigastric area, posterior aspect of right lateral abdomen, anterior aspect of right lateral abdomen and right upper quadrant. Exam: 20:21 Constitutional: This is a well developed, well nourished patient who is awake, alert, ray and in no acute distress. Head/Face: Normocephalic, atraumatic. Eyes: Pupils equal round and reactive to light, extra-ocular motions intact. Lids and lashes normal. Conjunctiva and sclera are non-icteric and not injected. Cornea within normal limits. Periorbital areas with no swelling, redness, or edema. ENT: Nares patent. No nasal discharge, no septal abnormalities noted. Tympanic membranes are normal and external auditory canals are clear. Oropharynx with no redness, swelling, or masses, exudates, or evidence of obstruction, uvula midline. Mucous membranes moist. Neck: Trachea midline, no thyromegaly or masses palpated, and no cervical lymphadenopathy. Supple, full range of motion without nuchal rigidity, or vertebral point tenderness. No Meningismus. Chest/axilla: Normal chest wall appearance and motion. Nontender with no deformity. No lesions are appreciated. Cardiovascular: Regular rate and rhythm with a normal S1 and S2. No gallops, murmurs, or rubs. Normal PMI, no JVD. No pulse deficits. Respiratory: Lungs have equal breath sounds bilaterally, clear to auscultation and percussion. No rales, rhonchi or wheezes noted. No increased work of breathing, no retractions or nasal flaring. Back: No spinal tenderness. No costovertebral tenderness. Full range of motion. Pelvic Exam: Normal external genitalia. Speculum exam with closed cervical os, no discharge or bleeding noted. Bimanual exam with normal adnexa, no adnexal or cervical motion tenderness. Normal uterus. Female : Normal external genitalia. Skin: Warm, dry with normal turgor. Normal color with no rashes, no lesions, and no evidence of cellulitis. MS/ Extremity: Pulses equal, no cyanosis. Neurovascular intact. Full, normal range of motion. Neuro: Awake and alert, GCS 15, oriented to person, place, time, and situation. Cranial nerves II-XII grossly intact. Motor strength 5/5 in all extremities. Sensory grossly intact. Cerebellar exam normal. Normal gait. Psych: Awake, alert, with orientation to person, place and time. Behavior, mood, and affect are within normal limits. 20:21 Abdomen/GI: Inspection: abdomen appears normal, Bowel sounds: normal, Palpation: moderate abdominal tenderness, in the posterior aspect of right lateral abdomen, anterior aspect of right lateral abdomen and right upper quadrant. 20:21 Skin: no rash present. 20:24 Musculoskeletal/extremity: DVT Exam: No signs of deep vein thrombosis. no pain, no ray swelling, no tenderness, negative Homans' sign noted on exam, no appreciated bluish discoloration, no erythema, no increased warmth. Vital Signs: 19:45 BP 118 / 74; Pulse 71; Resp 16 S; Temp 98.8(O); Pulse Ox 99% on R/A; Weight 133.36 kg bb (R); Height 5 ft. 7 in. (170.18 cm) (R); Pain 10/10; 21:53 BP 111 / 71; Pulse 76; Resp 16; Pulse Ox 98% on R/A; Pain 9/10; ed1 22:58 BP 93 / 61; Pulse 67; Resp 18; Pulse Ox 98% on R/A; Pain 6/10; ed1 22:59 Pain 6/10; ed1 23:42 BP 94 / 63; Pulse 60; Resp 16; Pulse Ox 99% ; ms 12/07 00:29 BP 98 / 74; Pulse 62; Resp 16; Temp 98.2(O); Pulse Ox 99% on R/A; Pain 3/10; ed1 12/06 19:45 Body Mass Index 46.05 (133.36 kg, 170.18 cm) bb MDM: 12/06 20:04 Patient medically screened. [facility] 20:24 Data reviewed: vital signs, nurses notes, lab test result(s), EKG, radiologic studies, [facility] CT scan, plain films. 12/06 20:20 Order name: Basic Metabolic Panel [facility] 12/06 20:20 Order name: CBC with Diff [facility] 12/06 20:20 Order name: LFT's [facility] 12/06 20:20 Order name: Magnesium; Complete Time: 21:30 [facility] 12/06 20:20 Order name: NT PRO-BNP; Complete Time: 21:30 [facility] 12/06 20:20 Order name: PT-INR; Complete Time: 21:30 [facility] 12/06 20:20 Order name: Troponin (emerg Dept Use Only); Complete Time: 21:30 [facility] 12/06 20:20 Order name: Urine Culture [facility] 12/06 20:20 Order name: Lipase; Complete Time: 21:30 [facility] 12/06 20:20 Order name: D-Dimer; Complete Time: 21:30 [facility] 12/06 20:21 Order name: Basic Metabolic Panel; Complete Time: 21:30 [facility] 12/06 20:21 Order name: CBC with Automated Diff; Complete Time: 21:08 [facility] 12/06 20:21 Order name: Liver (Hepatic) Function; Complete Time: 21:30 [facility] 12/06 20:52 Order name: Urine Dipstick--Ancillary (enter results); Complete Time: 21:30 [facility] 12/06 20:20 Order name: XRAY Chest (1 view); Complete Time: 21:08 [facility] 12/06 20:20 Order name: EKG; Complete Time: 20:22 [facility] 12/06 20:20 Order name: Cardiac monitoring; Complete Time: 21:14 [facility] 12/06 20:20 Order name: EKG - Nurse/Tech; Complete Time: 21:15 [facility] 12/06 20:20 Order name: IV Saline Lock; Complete Time: 20:48 [facility] 12/06 20:20 Order name: Labs collected and sent; Complete Time: 20:48 [facility] 12/06 20:20 Order name: O2 Per Protocol; Complete Time: 20:48 [facility] 12/06 20:20 Order name: O2 Sat Monitoring; Complete Time: 20:48 [facility] 12/06 20:20 Order name: CT Abd/Pelvis - W/Contrast [facility] 12/06 20:20 Order name: Urine Dipstick-Ancillary (obtain specimen); Complete Time: 20:48 [facility] Administered Medications: 21:04 Not Given (Duplicate Order): NS 0.9% 1000 ml IV at 125 ml/hr continuous ed1 21:05 Drug: NS 0.9% 1000 ml Route: IV; Rate: 125 ml/hr; Site: right antecubital; ed1 12/07 00:32 Follow up: IV Status: Pt discharged; IV Intake: 375ml ed1 12/06 21:05 Drug: fentaNYL (PF) 25 mcg Route: IVP; Site: right antecubital; lp1 21:49 Follow up: Response: No adverse reaction; Pain is unchanged, physician notified ed1 21:05 Drug: Zofran 4 mg Route: IVP; Site: right antecubital; lp1 21:49 Follow up: Response: No adverse reaction; Nausea is decreased ed1 21:48 Drug: Rocephin - (cefTRIAXone) 1 grams Route: IVPB; Infused Over: 30 mins; Site: right ed1 antecubital; 21:49 Follow up: Response: No adverse reaction; IV Status: Completed infusion ed1 21:53 Drug: fentaNYL (PF) 25 mcg Route: IVP; Site: right antecubital; ed1 22:59 Follow up: Pain 6/10 Adult; Response: No adverse reaction; Pain is decreased ed1 12/07 00:14 Drug: Cipro 500 mg Route: PO; ed1 00:31 Follow up: Response: No adverse reaction ed1 Disposition: 12/07/18 00:16 Discharged to Home. Impression: Cystitis, Abdominal tenderness, Type 2 diabetes mellitus. - Condition is Stable. - Discharge Instructions: Abdominal Pain, Adult, Type 2 Diabetes Mellitus, Diagnosis, Adult, Dysuria, Urinary Tract Infection, Adult, Urinary Tract Infection, Adult, [id number], Abdominal Pain, Adult, [id number], Type 2 Diabetes Mellitus, Diagnosis, Adult, [id number]. - Prescriptions for Bentyl 20 mg Oral Tablet - take 1 tablet by ORAL route every 6 hours As needed; 20 tablet. Zofran 4 mg Oral Tablet - take 1 tablet by ORAL route every 12 hours As needed; 20 tablet. Cipro 250 mg Oral Tablet - take 1 tablet by ORAL route every 12 hours; 14 tablet. Bactrim DS 800- 160 mg Oral Tablet - take 1 tablet by ORAL route every 12 hours for 5 days; 10 tablet. - Medication Reconciliation Form, Thank You Letter, Antibiotic Education, Prescription Opioid Use form. - Follow up: Halle Shabazz MD; When: 2 - 3 days; Reason: Recheck today's complaints, Continuance of care, Re-evaluation by your physician. - Problem is new. - Symptoms have improved. Signatures: Dispatcher [employer] EDMS Marcin Manuel MD MD cha Ballard, Brenda, RN RN bb Camelia Zhang, CHEMIST HELPER CHEMIST HELPER ed1 Chela Leonard RN RN lp1 Corrections: (The following items were deleted from the chart) 00:32 00:16 12/07/2018 00:16 Discharged to Home. Impression: Cystitis; Abdominal tenderness; ed1 Type 2 diabetes mellitus. Condition is Stable. Forms are Medication Reconciliation Form, Thank You Letter, Antibiotic Education, Prescription Opioid Use. Follow up: Halle Shabazz; When: 2 - 3 days; Reason: Recheck today's complaints, Continuance of care, Re-evaluation by your physician. Problem is new. Symptoms have improved. ray
[2018-12-07 01:06] VITALS: O2SAT 99
[2018-12-07 01:08] VITALS: BP 98/74; TEMP 98.2
--- NOTE | 2018-12-07 09:12 | RAD REPORT ---
EXAM DESCRIPTION: CT - Abdomen Pelvis W Contrast - 12/07/2018 2:40 am CLINICAL HISTORY: Abdominal pain A preliminary report was provided at the time of the study and reviewed prior to final report. COMPARISON: None. TECHNIQUE: Biphasic, helical CT imaging of the abdomen and pelvis was performed following 100 ml non -ionic IV contrast. Oral contrast was given. All CT scans are performed using dose optimization technique as appropriate and may include automated exposure control or mA/KV adjustment according to patient size. FINDINGS: No suspicious findings in the lung bases. Diffuse fatty infiltration of the liver. No focal liver lesion. Spleen and pancreas unremarkable. Cho lecystectomy clips are present with no biliary tree dilatation. Symmetric renal function is seen with no hydronephrosis or suspicious renal mass. No pyelonephritis o r acute parenchymal process. No bladder abnormalities. No adrenal abnormalities. No dilated bowel loops or bowel wall thickening. No free air, free fluid or inflammatory stranding. No mass or bulky lymphadenopathy. No omental thickening. Uterus is absent. Ovaries are absent or atr ophic. No suspicious adnexal mass. Phleboliths are present. There is a very small fat only umbilical hernia. Patient has general laxity of the lower abdominal wall near the pubic symphysis. There is a 5 -6 centimeter hernia containing a loop of bowel at the midline inferior most aspect of the abdominal wall. No acute component. No suspicious bony findings. IMPRESSION: Contrast enhanced CT abdomen and pelvis showing no acute or emergent finding. Nonacute findings detailed in the body of the report.
--- NOTE | 2018-12-07 14:14 | EKG ---
Test Date: 2018-12-06 Test Time: 21:09:51 Chair Inspector: KANDICE MEASUREMENT RESULTS: Intervals: Rate: 59 [place]: 180 QRSD: 84 QT: 396 QTc: 392 [place]: P: 44 [place]: 180 QRS: 13 T: -11 INTERPRETIVE STATEMENTS: Sinus bradycardia Nonspecific T wave abnormality Abnormal ECG Compared to ECG 03/11/2018 12:18:04 Sinus rhythm no longer present T-wave abnormality still present Electronically Signed On 12-07-18 14:13:32 ELECTROPHYSIOLOGY NURSE PRACTITIONER by Tarik Ley
== END 2018-12-07 00:32 | disposition home or self-care (01) ==
LOC: ER 19:24
DX: N30.90 Cystitis, unspecified without hematuria (principal); E11.9 Type 2 diabetes mellitus without complications; F17.210 Nicotine dependence, cigarettes, uncomplicated; I48.91 Unspecified atrial fibrillation; J45.909 Unspecified asthma, uncomplicated; Z79.01 Long term (current) use of anticoagulants; Z79.82 Long term (current) use of aspirin
CPT/HCPCS: 36415; 71045; 74177; 80048; 80076; 81003; 83690; 83735; 83880; 84484; 85025; 85379; 85610; 87077; 87086; 87088; 87186; 93005; 96361; 96374; 96375; 99284; J0696; J2405; J3010; J7030; Q9967

== ENCOUNTER 2019-09-11 14:20 | Emergency (ER) | payer OTHER ==
[2019-09-11 15:14] LABS: Hematocrit 43.2 % (36.0-45.0); Lymphocytes % 40.8 % (15.3-44.8); MPV 10.1 fL (7.6-11.3); RBC Red Blood Cell Count 4.94 M/uL (3.86-4.86)
--- NOTE | 2019-09-11 15:26 | RAD REPORT ---
EXAM DESCRIPTION: CT - Stone Protocol - 09/11/2019 3:04 pm CLINICAL HISTORY: Abdominal pain. Right flank pain COMPARISON: November 2018 TECHNIQUE: Computed axial tomography of the abdomen pelvis was obtained without oral or IV contrast. Lack of IV and oral contrast limits evaluation of solid organs, bowel, and vessels. Coronal reformat carlos images were obtained and reviewed. All CT scans are performed using dose optimization technique as appropriate and may include automated exposure control or mA/KV adjustment according to patient size. FINDINGS: A renal calculus is not seen. An ureteral calculus is not noted. A bladder calculus is not present. Fatty liver. Cholecystectomy The Spleen, pancreas and adrenals appear grossly normal There is no evidence of diverticulitis. Small umbilical hernia contains fat. A right ventral hernia contains loops of nondilated small bowel within the lower left pelvis. Hysterectomy. Spondylosis involves lumbar spine resulting spinal stenosis IMPRESSION: Negative for a genitourinary calculus
[2019-09-11 15:49] LABS: Potassium 3.8 mmol/L (3.5-5.1)
[2019-09-11 15:56] LABS: Urine Blood 1+ (NEG); Urine Glucose NEGATIVE (NEG); Urine Protein 1+ (NEG); Urine Specific Gravity 1.025 (1.005-1.030); Urine pH 6.5 (5.0-7.0)
[2019-09-11 16:19] LABS: Urine Amorphous Sediment 1+ /HPF (NONE SEEN); Urine Bacteria 20-50 /HPF (<20); Urine Culture Reflex Order REFLEXED; Urine Trichomonas PRESENT (NONE SEEN)
--- NOTE | 2019-09-11 16:26 | ER ---
Nurse's Notes [facility] Name: Madhavi Michael Age: 53 yrs Sex: Female : 1965 Arrival Date: 09/11/2019 Time: 14:22 Bed 25 Private MD: Halle Shabazz Diagnosis: Urinary tract infection, site not specified;Trichomoniasis Presentation: 09/11 14:25 Presenting complaint: Patient states: right-sided abd pain that began 30 minutes ago. aa5 Pt denies nausea/vomiting. Transition of care: patient was not received from another setting of care. Onset of symptoms was September 11, 2019. Risk Assessment: Do you want to hurt yourself or someone else? Patient reports no desire to harm self or others. Initial Sepsis Screen: Does the patient meet any 2 criteria? No. Patient's initial sepsis screen is negative. Does the patient have a suspected source of infection? No. Patient's initial sepsis screen is negative. Care prior to arrival: None. 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 - Social history:: Social history: Smoking status: Patient uses tobacco products, smokes one-half pack cigarettes per day. - Ebola Screening: : No symptoms or risks identified at this time. Screenin:45 Abuse screen: Denies threats or abuse. Nutritional screening: No deficits noted. tr5 Tuberculosis screening: No symptoms or risk factors identified. Fall Risk None identified. Assessment: 14:45 General: Appears uncomfortable, Behavior is calm, cooperative, appropriate for age. tr5 Pain: Complains of pain in abdomen Pain does not radiate. Pain currently is 6 out of 10 on a pain scale. Quality of pain is described as aching, crampy, Pain began 30 min ago. Neuro: Level of Consciousness is awake, alert, obeys commands, Oriented to person, place, time. Cardiovascular: Heart tones present Capillary refill < 3 seconds Pulses are all present. Edema is absent. Respiratory: Airway is patent Respiratory effort is even, unlabored, Respiratory pattern is regular, symmetrical. GI: Bowel sounds present X 4 quads. Abdomen is tender to palpation in right upper quadrant. GI: Reports upper abdominal pain. : No signs and/or symptoms were reported regarding the genitourinary system. EENT: No signs and/or symptoms were reported regarding the EENT system. Derm: No signs and/or symptoms reported regarding the dermatologic system. Musculoskeletal: No signs and/or symptoms reported regarding the musculoskeletal system. 16:00 Reassessment: Patient appears in no apparent distress at this time. Patient and/or tr5 family updated on plan of care and expected duration. Pain level reassessed. Patient is alert, oriented x 3, equal unlabored respirations, skin warm/dry/pink. Vital Signs: 14:26 BP 134 / 84; Pulse 89; Resp 18 S; Temp 97.3(TE); Pulse Ox 98% on R/A; Weight 127.91 kg aa5 (R); Height 5 ft. 7 in. (170.18 cm) (R); Pain 10/10; 16:25 BP 143 / 67; Pulse 89; Resp 17; Pulse Ox 99% on R/A; tr5 14:26 Body Mass Index 44.17 (127.91 kg, 170.18 cm) aa5 ED Course: 14:22 Patient arrived in ED. mr 14:23 Halle Shabazz MD is Private Physician. mr 14:25 Triage completed. aa5 14:25 Arm band placed on. aa5 14:31 [facility]C [facility] kb 14:32 Sandor Ramachandran MD is Attending Physician. kb 14:45 Bed in low position. Call light in reach. Side rails up X 1. tr5 14:58 Initial lab(s) drawn, by me, sent to lab. Inserted saline lock: 20 gauge in left lt1 antecubital area, using aseptic technique. 15:04 CT Stone Protocol In Process Unspecified. EDMS 15:14 Ok Amaya, DAKSHA is Primary Nurse. tr5 17:39 No provider procedures requiring assistance completed. IV discontinued. tr5 Administered Medications: 16:57 Drug: Flagyl 2 grams Route: PO; tr5 17:30 Follow up: Response: No adverse reaction tr5 Outcome: 16:26 Discharge ordered by . driss 17:39 Discharged to home via wheelchair, with family. tr5 17:39 Discharged to 17:39 Condition: stable 17:39 Discharge instructions given to patient, family, Instructed on discharge instructions, follow up and referral plans. medication usage, Demonstrated understanding of instructions, follow-up care, medications. 17:41 Patient left the ED. tr5 Signatures: Dispatcher [employer] EDMS Linda Colbert, DIESEL SERVICE APPRENTICE-C DIESEL SERVICE APPRENTICE-Lisset Andrews mr MayorgaGracie, RN RN aa5 Susi Reilly Ok Bello RN RN tr5
--- NOTE | 2019-09-11 16:27 | EDPHYS ---
Physician Documentation [facility] Name: Madhavi Michael Age: 53 yrs Sex: Female : 1965 Arrival Date: 09/11/2019 Time: 14:22 Bed 25 Private MD: Halle Shabazz ED Physician Sandor Ramachandran HPI: 09/11 16:14 This 53 yrs old Black Female presents to ER via Wheelchair with complaints of flank kb Pain. 16:15 The patient complains of pain in the right flank. The pain does not radiate. Onset: The kb symptoms/episode began/occurred just prior to arrival. Modifying factors: The symptoms are alleviated by nothing. the symptoms are aggravated by nothing. Associated signs and symptoms: The patient has no apparent associated signs or symptoms. Severity of pain: At its worst the pain was mild in the emergency department the pain is unchanged. The patient has not experienced similar symptoms in the past. The patient has not recently seen a physician. 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 - Social history:: Social history: Smoking status: Patient uses tobacco products, smokes one-half pack cigarettes per day. - Ebola Screening: : No symptoms or risks identified at this time. ROS: 16:13 Constitutional: Negative for fever, chills, and weight loss, ENT: Negative for injury, kb pain, and discharge, Neck: Negative for injury, pain, and swelling, Cardiovascular: Negative for chest pain, palpitations, and edema, Respiratory: Negative for shortness of breath, cough, wheezing, and pleuritic chest pain, Abdomen/GI: Negative for abdominal pain, nausea, vomiting, diarrhea, and constipation, : Negative for injury, bleeding, discharge, and swelling, MS/Extremity: Negative for injury and deformity, Skin: Negative for injury, rash, and discoloration, Neuro: Negative for headache, weakness, numbness, tingling, and seizure. 16:13 Back: Positive for flank pain, on the right. Exam: 16:13 Constitutional: This is a well developed, well nourished patient who is awake, alert, kb and in no acute distress. Head/Face: Normocephalic, atraumatic. ENT: Nares patent. No nasal discharge, no septal abnormalities noted. Tympanic membranes are normal and external auditory canals are clear. Oropharynx with no redness, swelling, or masses, exudates, or evidence of obstruction, uvula midline. Mucous membranes moist. Neck: Trachea midline, no thyromegaly or masses palpated, and no cervical lymphadenopathy. Supple, full range of motion without nuchal rigidity, or vertebral point tenderness. No Meningismus. Chest/axilla: Normal chest wall appearance and motion. Nontender with no deformity. No lesions are appreciated. Cardiovascular: Regular rate and rhythm with a normal S1 and S2. No gallops, murmurs, or rubs. Normal PMI, no JVD. No pulse deficits. Respiratory: Lungs have equal breath sounds bilaterally, clear to auscultation and percussion. No rales, rhonchi or wheezes noted. No increased work of breathing, no retractions or nasal flaring. Abdomen/GI: Soft, non-tender, with normal bowel sounds. No distension or tympany. No guarding or rebound. No evidence of tenderness throughout. Skin: Warm, dry with normal turgor. Normal color with no rashes, no lesions, and no evidence of cellulitis. MS/ Extremity: Pulses equal, no cyanosis. Neurovascular intact. Full, normal range of motion. Neuro: Awake and alert, GCS 15, oriented to person, place, time, and situation. Cranial nerves II-XII grossly intact. Motor strength 5/5 in all extremities. Sensory grossly intact. Cerebellar exam normal. Normal gait. 16:13 Back: CVA tenderness, that is mild, is noted on the right. Vital Signs: 14:26 BP 134 / 84; Pulse 89; Resp 18 S; Temp 97.3(TE); Pulse Ox 98% on R/A; Weight 127.91 kg aa5 (R); Height 5 ft. 7 in. (170.18 cm) (R); Pain 10/10; 16:25 BP 143 / 67; Pulse 89; Resp 17; Pulse Ox 99% on R/A; tr5 14:26 Body Mass Index 44.17 (127.91 kg, 170.18 cm) aa5 MDM: 14:32 Patient medically screened. kb 16:13 Data reviewed: vital signs, nurses notes. Data interpreted: Pulse oximetry: on room air kb is 98 %. Interpretation: normal. 16:25 Counseling: I had a detailed discussion with the patient and/or guardian regarding: the kb historical points, exam findings, and any diagnostic results supporting the discharge/admit diagnosis, lab results, radiology results, the need for outpatient follow up, a family practitioner, to return to the emergency department if symptoms worsen or persist or if there are any questions or concerns that arise at home. 09/11 14:47 Order name: Basic Metabolic Panel; Complete Time: 15:51 kb 09/11 14:47 Order name: CBC with Diff; Complete Time: 15:44 kb 09/11 15:21 Order name: Urine Dipstick--Ancillary (enter results); Complete Time: 15:59 eb 09/11 15:21 Order name: Urine --Ancillary (enter results); Complete Time: 15:59 eb 09/11 15:23 Order name: Urine Microscopic Only; Complete Time: 16:20 lt1 09/11 16:21 Order name: Urine Culture EDVT 09/11 14:47 Order name: Urine Dipstick-Ancillary (obtain specimen); Complete Time: 15:23 kb 09/11 14:47 Order name: CT Stone Protocol; Complete Time: 15:30 kb 09/11 14:47 Order name: IV Saline Lock; Complete Time: 14:59 kb 09/11 14:47 Order name: Labs collected and sent; Complete Time: 14:59 kb Administered Medications: 16:57 Drug: Flagyl 2 grams Route: PO; tr5 17:30 Follow up: Response: No adverse reaction tr5 Disposition: 09/12 07:28 Co-signature as Attending Physician, Sandor Ramachandran MD. Disposition: 09/11/19 16:26 Discharged to Home. Impression: Urinary tract infection, site not specified, Trichomoniasis. - Condition is Stable. - Discharge Instructions: Trichomoniasis, Urinary Tract Infection, Adult, Rsia-bh-Tree. - Prescriptions for Macrobid 100 mg Oral Capsule - take 1 capsule by ORAL route every 12 hours for 10 days; 20 capsule. - Medication Reconciliation Form, Thank You Letter, Antibiotic Education, Prescription Opioid Use, Work release form form. - Follow up: Emergency Department; When: As needed; Reason: Worsening of condition. Follow up: Private Physician; When: 2 - 3 days; Reason: Recheck today's complaints, Continuance of care, Re-evaluation by your physician. Signatures: Dispatcher [employer] EDVT Linda Colbert, DAVONTE-C NEW BUSINESS CLERK-Gracie Delgado, RN RN aa5 Sandor Ramachandran MD MD gs Rodriguez, Tommie, RN RN tr5 Corrections: (The following items were deleted from the chart) 09/11 17:41 16:26 09/11/2019 16:26 Discharged to Home. Impression: Urinary tract infection, site tr5 not specified; Trichomoniasis. Condition is Stable. Forms are Medication Reconciliation Form, Thank You Letter, Antibiotic Education, Prescription Opioid Use. Follow up: Emergency Department; When: As needed; Reason: Worsening of condition. Follow up: Private Physician; When: 2 - 3 days; Reason: Recheck today's complaints, Continuance of care, Re-evaluation by your physician. kb
[2019-09-11] MEDS ORDERED: metroNIDAZOLE 500 MG TABLET ONE ×2 (16:48→16:50)
[2019-09-11 19:16] VITALS: BP 143/67; O2SAT 99
[2019-09-11 19:18] VITALS: TEMP 97.3
== END 2019-09-11 17:41 | disposition home or self-care (01) ==
LOC: ER 14:20
DX: N39.0 Urinary tract infection, site not specified (principal); A59.9 Trichomoniasis, unspecified; Z72.0 Tobacco use
CPT/HCPCS: 36415; 74176; 76377; 80048; 81003; 81015; 81025; 85025; 87086; 87088; 99284

== ENCOUNTER 2019-10-06 07:14 | Day surgery (SDC) | payer OTHER ==
--- OUTSIDE RECORDS SUMMARY | 2019-10-06 07:29 | XMS REPORT ---
:1965 [facility] Address [address] [place] [address] [address] [place] [address] Care Team Providers Name Role Phone Unavailable Unavailable Unavailable Problems This patient has no known problems. Allergies, Adverse Reactions, Alerts This patient has no known allergies or adverse reactions. Medications This patient has no known medications.
--- OUTSIDE RECORDS SUMMARY | 2019-10-06 07:30 | XMS REPORT ---
:1965 Author Organization [employer] Care Team Providers Name Role Phone Shabazz, Na Provider Role Unavailable Allergies, Adverse Reactions, Alerts Substance Reaction Event Type N.K.D.A. Info Not Available Non Drug Allergy Problems Problem Type Condition Code Onset Dates Condition Status Assessment Elevated blood pressure reading I10 Active with diagnosis of hypertension Problem HTN (hypertension) I10 Active Problem Morbid obesity E66.01 Active Problem Peripheral neuropathy G62.9 Active Problem Edema R60.9 Active Problem Anemia D64.9 Active Problem GERD (gastroesophageal reflux K21.9 Active disease) Problem Hyperlipidemia E78.5 Active Problem Obstructive sleep apnea G47.33 Active Problem Cervical radiculopathy M54.12 Active Problem Thrombocytopenia D69.6 Active Problem Osteoarthritis M19.90 Active Problem Facial pain R51 Active Problem Body mass index (BMI) of 45.0-49.9 Z68.42 Active in adult Problem Morbid (severe) obesity due to E66.01 Active excess calories Problem Stress incontinence N39.3 Active Problem Hypotension due to drugs I95.2 Active Problem Osteoarthrosis, localized, M17.5 Active secondary, involving lower leg Problem Diabetes mellitus type 2 in E11.9 Active nonobese Problem Seasonal allergic rhinitis, J30.2 Active unspecified trigger Problem Nicotine dependence F17.200 Active Problem 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 Problem Cigarette nicotine dependence F17.210 Active without complication Problem Controlled type 2 diabetes mellitus E11.9 Active without complication, without long-term current use of insulin Problem Abscess of vagina N76.0 Active Assessment Trichomoniasis, urogenital A59.00 Active Problem Asthma, unspecified asthma J45.909 Active severity, unspecified whether complicated, unspecified whether persistent Assessment Acute UTI (urinary tract infection) N39.0 Active Problem Lump R22.9 Active Assessment Seasonal allergic rhinitis, J30.2 Active unspecified trigger Problem Paroxysmal atrial fibrillation I48.0 Active Assessment GERD (gastroesophageal reflux K21.9 Active disease) Problem Chronic depressive person F34.1 Active Problem Acquired torticollis M43.6 Active Problem Atypical chest pain R07.89 Active Problem H/O TIA (transient ischemic attack) Z86.73 Active and stroke Problem Gastroesophageal reflux disease K21.9 Active without esophagitis Medications Medication Code Code Instructions Start End Status Dosage System Date Date Celexa [facility] 83922949939 40 MG Orally Active 0.5 tablet Once a day Omeprazole [facility] 80803751560 40MG Active TAKE ONE CAPSULE BY MOUTH ONCE DAILY Combivent Respimat [facility] 03671544150 20-100 MCG/ACT Active 1 puff Inhalation Four times a day Flovent HFA [facility] 93924010735 110 MCG/ACT Active 1 puff Inhalation Twice a day Simvastatin ND 14067811457 20 MG Orally Active 1 tablet Once a day in the evening Norvasc [facility] 60104733072 5 MG Orally Active 1 tablet Once a day in PM Flovent Diskus [facility] 57141246281 100 MCG/BLIST Active 1 puff Inhalation Twice a day Ferrous Sulfate [facility] 70071586145 325 (65 Fe) MG Active 1 tablet Orally Once a day Dexilant [facility] 18664610547 60 MG Orally [place] Active 1 capsule Once a day 2017 Zanaflex [facility] 75848424061 4 MG Orally Active 1 tablet twice times a as needed day - [facility] 23256371441 81 MG Orally Active 1 tablet Once a day Omeprazole [facility] 14949828468 40 MG Orally Active 1 capsule Once a day Albuterol Sulfate [facility] 89402512453 (5 MG/ML) 0.5% Active 1 ml as Inhalation needed every 6 hrs Amoxicillin [facility] 64694559805 500 MG Orally Active 1 tablet every 8 hrs Estradiol [facility] 09107692174 0.1 MG/GM Dec 17, Active as Vaginal Two 2019 directed times a Week Doxycycline Hyclate [facility] 84685904413 100 MG Orally Active 1 capsule twice a day Singulair [facility] 80532096091 10 MG Orally Active 1 tablet Once a day in the evening Flonase [facility] 21028066325 50 MCG/ACT Active 1 spray in Nasally Once a each day nostril Zestoretic [facility] 84300307966 10-12.5 MG Active 1 tablet Orally Once a day Neurontin [facility] 88077258316 600 MG Orally Active 1 tablet Once a day Coreg [facility] 81631664796 25 MG Orally Active not defined Lisinopril [facility] 50176633257 20 MG Orally Dec 13, Active 1 tablet Once a day 2018 Hydrochlorothiazide [facility] 44699475882 25 MG Orally Active 1 tablet Once a day in the morning Potassium Chloride ER [facility] 92933693172 20 MEQ Orally Active 1 capsule Once a day with food Results No Known Results Summary Purpose [employer]ClinicalWorks Submission
--- OUTSIDE RECORDS SUMMARY | 2019-10-06 07:30 | XMS REPORT ---
:1965 Author Organization [employer] Care Team Providers Name Role Phone Shabazz, Na Provider Role Unavailable Allergies, Adverse Reactions, Alerts Substance Reaction Event Type N.K.D.A. 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 Assessment Nicotine abuse Z72.0 Active Problem Cigarette nicotine dependence F17.210 Active without complication Assessment Body mass index (BMI) of 45.0-49.9 Z68.42 Active in adult Problem Controlled type 2 diabetes mellitus E11.9 Active without complication, without long-term current use of insulin Assessment Morbid (severe) obesity due to E66.01 Active excess calories Problem Abscess of vagina N76.0 Active Assessment Elevated blood pressure reading I10 Active with diagnosis of hypertension Problem Asthma, unspecified asthma J45.909 Active severity, unspecified whether complicated, unspecified whether persistent Assessment Controlled type 2 diabetes mellitus E11.9 Active without complication, without long-term current use of insulin Problem Lump R22.9 Active Assessment Stress incontinence N39.3 Active Problem Paroxysmal atrial fibrillation I48.0 Active Assessment Hyperlipidemia E78.5 Active Problem Chronic depressive person F34.1 Active Assessment Paroxysmal atrial fibrillation I48.0 Active Problem Acquired torticollis M43.6 Active Assessment Hypokalemia E87.6 Active Problem Atypical chest pain R07.89 Active Problem H/O TIA (transient ischemic attack) Z86.73 Active and stroke Problem Gastroesophageal reflux disease K21.9 Active without esophagitis Medications Medication Code Code Instructions Start End Status Dosage System Date Date [facility] 75543831188 5-325 MG Active 1 tablet Orally every 6 as needed hrs Albuterol Sulfate [facility] 96120842544 (5 MG/ML) 0.5% Active 1 ml as Inhalation needed every 6 hrs Flonase [facility] 86103289276 50 MCG/ACT Active 1 spray in Nasally Once a each day nostril Estradiol [facility] 60563691396 0.1 MG/GM Dec 17, Active as Vaginal Two 2019 directed times a Week Dexilant [facility] 06340210663 60 MG Orally February Active 1 capsule Once a day 2017 Omeprazole [facility] 21116709196 40MG Active TAKE ONE CAPSULE BY MOUTH ONCE DAILY Zestoretic [facility] 90500185322 10-12.5 MG Active 1 tablet Orally Once a day Ferrous Sulfate [facility] 44767447006 325 (65 Fe) MG Active 1 tablet Orally Once a day Singulair [facility] 30665018915 10 MG Orally Active 1 tablet Once a day in the evening Doxycycline Hyclate [facility] 78069834036 100 MG Orally Active 1 capsule twice a day Norvasc [facility] 57132542797 5 MG Orally Active 2 tablet Once a day Hydrochlorothiazide [facility] 45901277802 25 MG Orally Active 1 tablet Once a day in the morning Potassium Chloride ER [facility] 29957260523 10MEQ ER Active TAKE ONE TABLET BY MOUTH ONCE DAILY Simvastatin [facility] 34187575863 20MG Active TAKE ONE TABLET BY MOUTH ONCE DAILY Combivent ND 0 Active not defined Flovent Diskus [facility] 98595525915 100 MCG/BLIST Active 1 puff Inhalation Twice a day Aspir-81 [facility] 88762949446 81 MG Orally Active 1 tablet Once a day Klor-Con M10 [facility] 41048665933 10 MEQ Orally Active 1 tablet Twice a day with food Celexa ND 68415439765 40 MG Orally Active 0.5 tablet Once a day Omeprazole ND 36933354511 40 MG Orally Active 1 capsule Once a day Potassium Chloride ER ND 91045485258 20 MEQ Orally Active 1 capsule Once a day with food Zanaflex [facility] 92886712740 4 MG Orally Active 1 tablet twice times a as needed day Lisinopril [facility] 94985264159 20 MG Orally Dec 13, Active 1 tablet Once a day 2018 Flovent HFA [facility] 04814925229 110 MCG/ACT Active 1 puff Inhalation Twice a day Neurontin ND 27279863900 600 MG Orally Active 1 tablet Once a day Combivent Respimat [facility] 52595711344 20-100 MCG/ACT Active 1 puff Inhalation Four times a day Simvastatin ND 17930249724 20 MG Orally Active 1 tablet Once a day in the evening Amoxicillin [facility] 64931195174 500 MG Orally Active 1 tablet every 8 hrs Bactrim DS [facility] 94109712478 800-160 MG Jul Active 1 tablet Orally Twice a 2018 Coreg [facility] 86232295102 25 MG Orally Active not defined Results No Known Results Immunizations Vaccine Administration Date Afluria single dose Aug 21, 2019 Summary Purpose eClinicalWorks Submission
[2019-10-06] MEDS ORDERED: MIDAZOLAM HCL 2 MG/2 ML INJ ONE (08:06)
[2019-10-06] MEDS ORDERED: LIDOCAINE 2% MPF 5 ML VIAL ONE (08:06)
[2019-10-06] MEDS ORDERED: PROPOFOL 200 MG/20 ML VIAL IV ONE (08:06)
[2019-10-06] MEDS ORDERED: ROCURONIUM 50 MG/5 ML VIAL IV ONE ×2 (08:06→10:15)
[2019-10-06] MEDS ORDERED: FENTANYL CITR 100 MCG/2 ML ONE (08:06)
[2019-10-06] MEDS ORDERED: ONDANSETRON 4 MG/2 ML VIAL ONE ×3 (08:07→13:25)
[2019-10-06] MEDS ORDERED: NA CHLORIDE 0.9% 0 ML ONE (08:11)
[2019-10-06] MEDS ORDERED: CEFAZOLIN/SWI 2gm 0 GM/0 ML SYR ONE (08:12)
[2019-10-06] MEDS ORDERED: BUPIVACA 0.5%/EPI 0.0005%/PF 30 ML VIAL ONE (08:15)
[2019-10-06] MEDS ORDERED: CEFAZOLIN/SWI 2gm 2 GM/20 ML SYR ONE (08:31)
[2019-10-06] MEDS ORDERED: NA CHLORIDE 0.9% 1,000 ML ONE ×2 (08:31→10:51)
[2019-10-06] MEDS ORDERED: GLYCOPYRROLATE 0.2 MG/ML SYR ONE (09:19)
[2019-10-06] MEDS ORDERED: Phenylephrine HCl 10 MG/ML 1 ML VIAL ONE (09:22)
[2019-10-06] MEDS ORDERED: NEOSTIGMINE 1 MG/ML -5 ML ONE (09:22)
[2019-10-06] MEDS ORDERED: NS 0.9% VIAL 30 ML ONE (09:22)
[2019-10-06] MEDS ORDERED: NS 0.9% VIAL 20 ML ONE (10:45)
--- NOTE | 2019-10-06 11:47 | P.OP ---
Preoperative diagnosis: Recurrent Ventral Abdominal Wall Hernias Postoperative diagnosis: Recurrent Ventral Abdominal Wall Hernias Primary procedure: Laparoscopic Ventral Hernia Repair with Mesh Secondary procedure: Laparoscopic Adhesiolysis Anesthesia: GETA + Local Estimated blood loss: <10cc Specimen: None Findings: Complex barbadian cheese abdominal hernias Complications: None Drain(s): Other (None) Transferred to: Recovery Room Condition: Good
[2019-10-06] MEDS: HYDROMORPHONE HCL 1 MG/ML INJ ONE ×5 (11:59→12:24)
[2019-10-06] MEDS: FENTANYL CITR 100 MCG/2 ML ONE ×2 (12:24→12:34)
[2019-10-06 13:09] VITALS: TEMP 97.1
[2019-10-06] MEDS ORDERED: HYDROCODONE/APAP 5/325 MG TAB ONE ×2 (13:21→13:31)
[2019-10-06 13:36] VITALS: BP 104/68; O2SAT 95
--- NOTE | 2019-10-07 00:01 | OP ---
Date of Procedure: 10/06/2019 Surgeon: Anthony Diop MD, Preoperative Diagnosis: Recurrent ventral abdominal hernia. Postoperative Diagnosis: Recurrent ventral abdominal hernia. Procedures Performed: 1.Laparoscopic ventral hernia repair with mesh. 2.Laparoscopic adhesiolysis, greater than 1 hour. Anesthesia: General endotracheal plus local. Estimated Blood Loss: Less than 10 mL. Specimen: None. Findings: Complex Iranian cheese abdominal wall hernias, multiple, largest at the suprapubic position. There was a periumbilical one, which was smaller in size, putting these together. However, approxi mately 20 cm in diameter and therefore, I used a 25 cm x [address] mesh. Complications: None. Drains: None. Implants: [employer] Ventralight ST with Echo positioning System, 25 cm x 20 cm mesh. Disposition: Transferred to recovery room in good condition. Procedure In Detail: After informed was obtained, patient was brought to the operating room, prepped and draped in the usual sterile fashion. After adequate anesthesia, left upper quadrant incision wa s made after appropriately anesthetizing the skin. The 5 mm 0-degree optical trocar was introduced i n the abdomen without evidence of complication. There was no injury to vital structures upon entry i nto the abdomen. Insufflation was obtained to 15 mmHg at this time. There was no injury to vital st ructures verified at this time. Significant intraabdominal adhesions were encountered at this point and noticed to the midline predominantly with small bowel being stuck firmly to the abdominal wall wi th thick fibrous adhesions. Additional trocar site was chosen in the left lower quadrant. This was similarly anesthetized and sharply incised and a 5-mm trocar was introduced in the abdomen without ev idence of complication. Additional trocar site was chosen in the right upper quadrant. This was sim ilarly anesthetized and sharply incised. A 5-mm trocar was introduced in the abdomen without evidenc e of complication. The left upper quadrant incision was then upsized to a 12 mm under direct visuali zation without evidence of complication. I then used the combination of LigaSure, blunt and sharp di ssection with the LigaSure device as well as Endo Duc and blunt dissection to remove the omentum a nd small bowel adhesions from the anterior abdominal wall. They were found to be thick and quite fir m adhesions. After taking these adhesions down, they were found to be quite thick and fibrous. Ther e was no serosal injuries appreciated at this time. The small bowel and omentum were returned to the normal anatomic position. I then sized the mesh appropriately and found a 20 cm x 25 cm mesh would have at least 5 cm of underlay and it was brought into the left upper quadrant 12 mm trocar deployed. I centered the mesh appropriately and deployed the balloon system. I positioned the mesh appropria tely and used the absorbable fixation tacks circumferentially around in a single crown fashion. I th en removed the balloon deployment system and was found to be intact on the back table. I then put a double crown fixation system using absorbable tacks circumferentially around with good approximation of tissues and good coverage of the hernia defect at this time. I then placed a third layer of tacks circumferentially throughout the abdomen as there was a large mesh to help with approximation of the mesh to the anterior abdominal wall and minimize the space. After this was completed, the area was inspected. There was no injury to vital structures. Then, no additional hemostatic maneuvers w ere required and the mesh was found to be good anatomic position under normal and desufflation pressu res. I then removed the 12 mm trocar and closed the 12 mm trocar site with a Jaison-Neri suture passer and 0 Vicryl in interrupted fashion with good approximation of the tissues. I then completed desufflated the abdomen under direct visualization without evidence of complication. All trocars wer e removed. All skin incisions were copiously irrigated and closed with a 4-0 Monocryl in a running f ashion. Dermabond placed was over top. Patient tolerated the procedure well without evidence of complication and transferred in good condition. All counts were correct at the end of the case. RDONEY/ALISE Voice ID: [id number] Report ID: [id number]
== END 2019-10-06 15:10 | disposition home or self-care (01) ==
LOC: OR 07:14
PROVIDERS: ATTEND Surgery
PROC: 0DNW4ZZ Release Peritoneum, Percutaneous Endoscopic Approach (ICD-10-PCS; 2019-10-06)
PROC: 0WUF4JZ Supplement Abdominal Wall with Synthetic Substitute, Percutaneous Endoscopic Approach (ICD-10-PCS; principal; 2019-10-06 10:00)
DX: K43.2 Incisional hernia without obstruction or gangrene (principal); K66.0 Peritoneal adhesions (postprocedural) (postinfection); I10 Essential (primary) hypertension; E11.9 Type 2 diabetes mellitus without complications; G47.30 Sleep apnea, unspecified; J45.909 Unspecified asthma, uncomplicated; E66.01 Morbid (severe) obesity due to excess calories; Z68.41 Body mass index [BMI] 40.0-44.9, adult; Z90.710 Acquired absence of both cervix and uterus; Z90.49 Acquired absence of other specified parts of digestive tract
CPT/HCPCS: 82947 ×2; 49656; 49329; J2704; J2370; J2250; J3010 ×2; J1170 ×2; J2710; J0690; J7030 ×2; J2405 ×2

== ENCOUNTER 2019-10-08 11:32 | Emergency (ER) | payer OTHER ==
--- OUTSIDE RECORDS SUMMARY | 2019-10-08 11:34 | XMS REPORT ---
:1965 [facility] Address [address] [place] [address] [address] [place] [address] Care Team Providers Name Role Phone Unavailable Unavailable Unavailable Problems This patient has no known problems. Allergies, Adverse Reactions, Alerts This patient has no known allergies or adverse reactions. Medications This patient has no known medications.
--- OUTSIDE RECORDS SUMMARY | 2019-10-08 11:36 | XMS REPORT ---
[...] Start End Status Dosage System Date Date [facility] 04320105288 5-325 MG Active 1 tablet Orally every 6 as needed hrs Albuterol Sulfate [facility] 44067720110 (5 MG/ML) 0.5% Active 1 ml as Inhalation needed every 6 hrs Flonase [facility] 48651579276 50 MCG/ACT Active 1 spray in Nasally Once a each day nostril Estradiol [facility] 64879659287 0.1 MG/GM Dec 17, Active as Vaginal Two 2019 directed times a Week Dexilant [facility] 56275667944 60 MG Orally February Active 1 capsule Once a day 2017 Omeprazole [facility] 16162238680 40MG Active TAKE ONE CAPSULE BY MOUTH ONCE DAILY Zestoretic [facility] 15345293504 10-12.5 MG Active 1 tablet Orally Once a day Ferrous Sulfate [facility] 50426051843 325 (65 Fe) MG Active 1 tablet Orally Once a day Singulair [facility] 70338511335 10 MG Orally Active 1 tablet Once a day in the evening Doxycycline Hyclate [facility] 68991558926 100 MG Orally Active 1 capsule twice a day Norvasc [facility] 88906503051 5 MG Orally Active 2 tablet Once a day Hydrochlorothiazide [facility] 63698654176 25 MG Orally Active 1 tablet Once a day in the morning Potassium Chloride ER [facility] 60918116966 10MEQ ER Active TAKE ONE TABLET BY MOUTH ONCE DAILY Simvastatin [facility] 13866717073 20MG Active TAKE ONE TABLET BY MOUTH ONCE DAILY Combivent ND 0 Active not defined Flovent Diskus [facility] 16368065542 100 MCG/BLIST Active 1 puff Inhalation Twice a day Aspir-81 [facility] 25295028624 81 MG Orally Active 1 tablet Once a day Klor-Con M10 [facility] 92652425723 10 MEQ Orally Active 1 tablet Twice a day with food Celexa ND 20842242287 40 MG Orally Active 0.5 tablet Once a day Omeprazole ND 88651910733 40 MG Orally Active 1 capsule Once a day Potassium Chloride ER ND 99057259719 20 MEQ Orally Active 1 capsule Once a day with food Zanaflex [facility] 84137240485 4 MG Orally Active 1 tablet twice times a as needed day Lisinopril [facility] 54822975775 20 MG Orally Dec 13, Active 1 tablet Once a day 2018 Flovent HFA [facility] 34933054548 110 MCG/ACT Active 1 puff Inhalation Twice a day Neurontin ND 23977634431 600 MG Orally Active 1 tablet Once a day Combivent Respimat [facility] 23247558553 20-100 MCG/ACT Active 1 puff Inhalation Four times a day Simvastatin ND 27478451505 20 MG Orally Active 1 tablet Once a day in the evening Amoxicillin [facility] 05128819750 500 MG Orally Active 1 tablet every 8 hrs Bactrim DS [facility] 57334825433 800-160 MG Jul Active 1 tablet Orally Twice a 2018 Coreg [facility] 75860310909 25 MG Orally Active not defined Results No Known Results Immunizations Vaccine Administration Date Afluria single dose Aug 21, 2019 Summary Purpose eClinicalWorks Submission
--- OUTSIDE RECORDS SUMMARY | 2019-10-08 11:37 | XMS REPORT ---
[...] End Status Dosage System Date Date Celexa [facility] 85282557509 40 MG Orally Active 0.5 tablet Once a day Omeprazole [facility] 42172859063 40MG Active TAKE ONE CAPSULE BY MOUTH ONCE DAILY Combivent Respimat [facility] 17285111907 20-100 MCG/ACT Active 1 puff Inhalation Four times a day Flovent HFA [facility] 09351438589 110 MCG/ACT Active 1 puff Inhalation Twice a day Simvastatin ND 38747461676 20 MG Orally Active 1 tablet Once a day in the evening Norvasc [facility] 62939085049 5 MG Orally Active 1 tablet Once a day in PM Flovent Diskus [facility] 86606236037 100 MCG/BLIST Active 1 puff Inhalation Twice a day Ferrous Sulfate [facility] 61508848120 325 (65 Fe) MG Active 1 tablet Orally Once a day Dexilant [facility] 05995966141 60 MG Orally [place] Active 1 capsule Once a day 2017 Zanaflex [facility] 87944271168 4 MG Orally Active 1 tablet twice times a as needed day - [facility] 03362851688 81 MG Orally Active 1 tablet Once a day Omeprazole [facility] 85329218021 40 MG Orally Active 1 capsule Once a day Albuterol Sulfate [facility] 43796962718 (5 MG/ML) 0.5% Active 1 ml as Inhalation needed every 6 hrs Amoxicillin [facility] 26625206477 500 MG Orally Active 1 tablet every 8 hrs Estradiol [facility] 38765437575 0.1 MG/GM Dec 17, Active as Vaginal Two 2019 directed times a Week Doxycycline Hyclate [facility] 82474929668 100 MG Orally Active 1 capsule twice a day Singulair [facility] 82680018997 10 MG Orally Active 1 tablet Once a day in the evening Flonase [facility] 60826120378 50 MCG/ACT Active 1 spray in Nasally Once a each day nostril Zestoretic [facility] 38653521269 10-12.5 MG Active 1 tablet Orally Once a day Neurontin [facility] 87643669069 600 MG Orally Active 1 tablet Once a day Coreg [facility] 73918474002 25 MG Orally Active not defined Lisinopril [facility] 37634653371 20 MG Orally Dec 13, Active 1 tablet Once a day 2018 Hydrochlorothiazide [facility] 67233337420 25 MG Orally Active 1 tablet Once a day in the morning Potassium Chloride ER [facility] 09437126651 20 MEQ Orally Active 1 capsule Once a day with food Results No Known Results Summary Purpose eClinicalWorks Submission
[2019-10-08] MEDS ORDERED: MORPHINE 4 MG/ML SYR ONE ×2 (12:01→13:26)
[2019-10-08] MEDS ORDERED: ONDANSETRON 4 MG/2 ML VIAL ONE ×2 (12:01→13:26)
[2019-10-08 12:16] LABS: Absolute Lymphocytes (CBC) 1.3 K/uL (0.7-4.9); Hematocrit 42.7 % (36.0-45.0); Lymphocytes % 20.8 % (15.3-44.8); MPV 10.5 fL (7.6-11.3); RBC Red Blood Cell Count 4.88 M/uL (3.86-4.86)
[2019-10-08 12:31] LABS: Albumin 3.5 g/dL (3.4-5.0); Bilirubin Direct 0.3 mg/dL (0-0.2); Bilirubin Total 1.2 mg/dL (0.2-1.0); Potassium 3.6 mmol/L (3.5-5.1); Protein, Total 7.2 g/dL (6.4-8.2)
--- NOTE | 2019-10-08 12:33 | RAD REPORT ---
EXAM DESCRIPTION: CT - Abdomen Pelvis W Contrast - 10/08/2019 12:14 pm CLINICAL HISTORY: Abdominal pain COMPARISON: November 2018 TECHNIQUE: Computed axial tomography of the abdomen pelvis was obtained. 100 cc Isovue-300 was admin istered intravenously. Oral contrast was not requested which limits evaluation of bowel. All CT scans are performed using dose optimization technique as appropriate and may include automated exposure control or mA/KV adjustment according to patient size. FINDINGS: Fatty liver The Spleen, pancreas, adrenal and kidneys appear unremarkable. There is no evidence of diverticulitis. Fluid is present within nondilated small bowel. Postsurgical changes of a ventral hernia repair within the lower left pelvis are present. A 4 x 2 hyacinth timeter fluid collection is present at the site of hernia repair. Scattered air bubbles are present t hroughout the subcutaneous tissues. Skin thickening is noted. Edema is present within the subcutaneou s tissues. IMPRESSION: Postsurgical changes of a ventral hernia repair within the left lower pelvis. A 4 x 2 ce ntimeter fluid collection at the hernia repair site . This may be a hematoma. An infected fluid colle ction can also have this appearance. This could be monitored on a subsequent examination. Diffuse edema within the subcutaneous tissues of the lower pelvis with stranding in the fat and air b ubbles. This all could be normal postoperative findings or cellulitis and should be correlated clinic ally
--- NOTE | 2019-10-08 13:26 | EDPHYS ---
Physician Documentation [facility] Name: Madhavi Michael Age: 53 yrs Sex: Female : 1965 Arrival Date: 10/08/2019 Time: 11:33 Bed 2 Private MD: ED Physician Arnulfo Pelayo HPI: 10/08 12:07 This 53 yrs old Black Female presents to ER via EMS with complaints of Post Surgical kb Pain. 12:07 The patient presents with abdominal pain that is diffuse, abdominal distention that is kb diffuse. Onset: The symptoms/episode began/occurred 2 day(s) ago. The symptoms do not radiate. Associated signs and symptoms: Pertinent positives: constipation. The symptoms are described as constant. Modifying factors: The symptoms are alleviated by nothing, the symptoms are aggravated by movement, pressure. Severity of pain: At its worst the pain was moderate in the emergency department the pain is unchanged. The patient has not experienced similar symptoms in the past. The patient has been recently seen by a physician: hernia repair on Sunday done in day surgery here by Dr Diop. 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 - Social history:: Smoking status: Patient/guardian denies using tobacco. - Ebola Screening: : No symptoms or risks identified at this time. ROS: 12:05 Constitutional: Negative for fever, chills, and weight loss, ENT: Negative for injury, kb pain, and discharge, Neck: Negative for injury, pain, and swelling, Cardiovascular: Negative for chest pain, palpitations, and edema, Respiratory: Negative for shortness of breath, cough, wheezing, and pleuritic chest pain, Back: Negative for injury and pain, MS/Extremity: Negative for injury and deformity, Skin: Negative for injury, rash, and discoloration, Neuro: Negative for headache, weakness, numbness, tingling, and seizure. 12:05 Abdomen/GI: Positive for abdominal pain, constipation, abdominal distension. Exam: 12:05 Constitutional: This is a well developed, well nourished patient who is awake, alert, kb and in no acute distress. Head/Face: Normocephalic, atraumatic. Chest/axilla: Normal chest wall appearance and motion. Nontender with no deformity. No lesions are appreciated. Cardiovascular: Regular rate and rhythm with a normal S1 and S2. No gallops, murmurs, or rubs. Normal PMI, no JVD. No pulse deficits. Respiratory: Lungs have equal breath sounds bilaterally, clear to auscultation and percussion. No rales, rhonchi or wheezes noted. No increased work of breathing, no retractions or nasal flaring. Back: No spinal tenderness. No costovertebral tenderness. Full range of motion. Skin: Warm, dry with normal turgor. Normal color with no rashes, no lesions, and no evidence of cellulitis. MS/ Extremity: Pulses equal, no cyanosis. Neurovascular intact. Full, normal range of motion. Neuro: Awake and alert, GCS 15, oriented to person, place, time, and situation. Cranial nerves II-XII grossly intact. Motor strength 5/5 in all extremities. Sensory grossly intact. Cerebellar exam normal. Normal gait. 12:05 Abdomen/GI: Inspection: distension, that is moderate, obese surgical incisions noted, well approximated, no drainage or signs of infection to incision sites, Bowel sounds: normal, in all quadrants, Palpation: soft, in all quadrants, moderate abdominal tenderness, in all quadrants. Vital Signs: 11:30 BP 111 / 74; Pulse 65; Resp 20; Temp 97.1; Pulse Ox 96% ; Weight 127.91 kg; Height 5 sv ft. 7 in. (170.18 cm); Pain 10/10; 12:30 BP 112 / 78; Pulse 67; Resp 18; Pulse Ox 100% ; sv 13:31 BP 119 / 86; Pulse 66; Resp 18; Pulse Ox 100% ; sv 11:30 Body Mass Index 44.17 (127.91 kg, 170.18 cm) sv MDM: 11:33 Patient medically screened. kb 12:04 Data reviewed: vital signs, nurses notes. Data interpreted: Pulse oximetry: on room air kb is 96 %. Interpretation: normal. 13:12 Physician consultation: Anthony Diop MD was contacted at 13:12, regarding consult, kb patient's condition. 13:22 Counseling: I had a detailed discussion with the patient and/or guardian regarding: the kb historical points, exam findings, and any diagnostic results supporting the discharge/admit diagnosis, lab results, radiology results, the need for outpatient follow up, a general surgeon, to return to the emergency department if symptoms worsen or persist or if there are any questions or concerns that arise at home. ED course: Discussed diagnostic findings with Dr Diop and pt. Pt educated to take pain medication as prescribed, start walking, drink gatorade (per Jadon). Dr Diop reviewed CT images and agrees that pt can be discharged home to follow up in office. . 10/08 11:45 Order name: Basic Metabolic Panel; Complete Time: 12:31 kb 10/08 11:45 Order name: CBC with Diff; Complete Time: 12:31 kb 10/08 11:45 Order name: Hepatic Function; Complete Time: 12:31 kb 10/08 11:45 Order name: Lipase; Complete Time: 12:31 kb 10/08 11:45 Order name: CT Abd/Pelvis - IV Contrast Only; Complete Time: 12:42 kb 10/08 11:45 Order name: IV Saline Lock; Complete Time: 12:22 kb 10/08 11:45 Order name: Labs collected and sent; Complete Time: 12:22 kb Administered Medications: 12:24 Drug: Zofran 4 mg Route: IVP; Site: right antecubital; sv 12:26 Drug: morphine 4 mg {Note: RASS1.} Route: IVP; Site: right antecubital; sv 13:35 Drug: Zofran 4 mg Route: IVP; Site: right antecubital; sv 13:37 Drug: morphine 4 mg Route: IVP; Site: right antecubital; sv Disposition: 15:44 Co-signature as Attending Physician, Arnulfo Pelayo MD. rn Disposition: 10/08/19 13:25 Discharged to Home. Impression: Generalized abdominal pain - post-op pain. - Condition is Stable. - Discharge Instructions: Abdominal Pain, Adult, [place]. - Medication Reconciliation Form, Thank You Letter, Antibiotic Education, Prescription Opioid Use form. - Follow up: Emergency Department; When: As needed; Reason: Worsening of condition. Follow up: Private Physician; When: 2 - 3 days; Reason: Recheck today's complaints, Continuance of care, Re-evaluation by your physician. Signatures: Dispatcher [employer] Linda Coffman FNP-C FNP-Ckb Verde, Stephanie, RN RN Arnulfo Licea MD MD rn labor delivery: (The following items were deleted from the chart) 14:15 13:25 10/08/2019 13:25 Discharged to Home. Impression: Generalized abdominal pain - sv post-op pain. Condition is Stable. Forms are Medication Reconciliation Form, Thank You Letter, Antibiotic Education, Prescription Opioid Use. Follow up: Emergency Department; When: As needed; Reason: Worsening of condition. Follow up: Private Physician; When: 2 - 3 days; Reason: Recheck today's complaints, Continuance of care, Re-evaluation by your physician. kb
--- NOTE | 2019-10-08 13:26 | ER ---
Nurse's Notes [facility] Name: Madhavi Michael Age: 53 yrs Sex: Female : 1965 Arrival Date: 10/08/2019 Time: 11:33 Bed 2 Private MD: Diagnosis: Generalized abdominal quby-aiyr-cu pain Presentation: 10/08 11:28 Presenting complaint: EMS states: post surgical pain from a hernia repair done here on sv Sunday by Dr Diop. Reports nausea, denies vomiting. Last BM on Sunday. Transition of care: patient was not received from another setting of care. Onset of symptoms was October 08, 2019. Risk Assessment: Do you want to hurt yourself or someone else? Patient reports no desire to harm self or others. Initial Sepsis Screen: Does the patient meet any 2 criteria? No. Patient's initial sepsis screen is negative. Does the patient have a suspected source of infection? No. Patient's initial sepsis screen is negative. Care prior to arrival: None. 11:28 Method Of Arrival: EMS: [facility] 11:28 Acuity: SISSY 3 sv Triage Assessment: 11:28 General: Appears in no apparent distress. uncomfortable, obese, Behavior is sv cooperative, appropriate for age, anxious. Pain: Complains of pain in abdomen Pain currently is 10 out of 10 on a pain scale. Quality of pain is described as tender, Pain began 2-3 days ago. Is continuous. Neuro: Level of Consciousness is awake, alert, obeys commands, Oriented to person, place, time, situation, Moves all extremities. Respiratory: Respiratory effort is even, unlabored, Respiratory pattern is regular, symmetrical. GI: Abdomen is obese, Last BM was October 05, 2019. Reports lower abdominal pain, upper abdominal pain. Derm: Skin is pink, warm \T\ dry. 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 - Social history:: Smoking status: Patient/guardian denies using tobacco. - Ebola Screening: : No symptoms or risks identified at this time. Screenin:36 Abuse screen: Denies threats or abuse. Denies injuries from another. Nutritional sv screening: No deficits noted. Tuberculosis screening: No symptoms or risk factors identified. Fall Risk None identified. Assessment: 11:45 Reassessment: Pt stated that she hasn't gotten up and ambulated since her surgery. She sv attempted to today but was in too much pain. 12:24 Reassessment: Patient appears in no apparent distress at this time. No changes from sv previously documented assessment. Patient and/or family updated on plan of care and expected duration. Pain level reassessed. Patient is alert, oriented x 3, equal unlabored respirations, skin warm/dry/pink. 13:35 Reassessment: Patient appears in no apparent distress at this time. No changes from sv previously documented assessment. Patient and/or family updated on plan of care and expected duration. Pain level reassessed. Patient is alert, oriented x 3, equal unlabored respirations, skin warm/dry/pink. 14:15 Reassessment: Patient appears in no apparent distress at this time. Patient and/or sv family updated on plan of care and expected duration. Pain level reassessed. Patient is alert, oriented x 3, equal unlabored respirations, skin warm/dry/pink. Vital Signs: 11:30 BP 111 / 74; Pulse 65; Resp 20; Temp 97.1; Pulse Ox 96% ; Weight 127.91 kg; Height 5 sv ft. 7 in. (170.18 cm); Pain 10/10; 12:30 BP 112 / 78; Pulse 67; Resp 18; Pulse Ox 100% ; sv 13:31 BP 119 / 86; Pulse 66; Resp 18; Pulse Ox 100% ; sv 11:30 Body Mass Index 44.17 (127.91 kg, 170.18 cm) sv ED Course: 11:33 Patient arrived in ED. sv 11:33 Fallon Willard, DAKSHA is Primary Nurse. sv 11:33 [facility] Colbert [facility]C [facility]. kb 11:33 Arnulfo Pelayo MD is Attending Physician. kb 11:35 Triage completed. sv 11:36 Arm band placed on. sv 11:36 Patient has correct armband on for positive identification. Bed in low position. Call sv light in reach. Side rails up X2. Pulse ox on. NIBP on. Door closed. Warm blanket given. Head of bed elevated. 11:37 Awaiting ED provider evaluation. sv 11:41 Nurse Practitioner and/or Physician Locomotive Driver to see patient. sv 12:10 Inserted saline lock: 22 gauge in right antecubital area, using aseptic technique. sv Blood collected. Flushed right antecubital with 5 ml normal saline. 12:15 CT Abd/Pelvis - IV Contrast Only In Process Unspecified. EDMS 12:22 Patient moved back from CT. sv 14:15 No provider procedures requiring assistance completed. IV discontinued, intact, sv bleeding controlled, No redness/swelling at site. Pressure dressing applied. Administered Medications: 12:24 Drug: Zofran 4 mg Route: IVP; Site: right antecubital; sv 12:26 Drug: morphine 4 mg {Note: RASS1.} Route: IVP; Site: right antecubital; sv 13:35 Drug: Zofran 4 mg Route: IVP; Site: right antecubital; sv 13:37 Drug: morphine 4 mg Route: IVP; Site: right antecubital; sv Outcome: 13:25 Discharge ordered by MD. kb 14:15 Patient left the ED. sv 14:15 Discharged to home via wheelchair, with family. sv 14:15 Condition: stable 14:15 Discharge instructions given to patient, Instructed on discharge instructions, follow up and referral plans. increase ambulation at home Demonstrated understanding of instructions, follow-up care. Signatures: Dispatcher [employer] EDMS Linda Colbert, RD MANAGER-C DAVONTE-Fallon Mckee, RN RN sv
[2019-10-08 14:47] VITALS: O2SAT 100
[2019-10-08 14:49] VITALS: BP 119/86
== END 2019-10-08 14:15 | disposition home or self-care (01) ==
LOC: ER 11:32
DX: G89.18 Other acute postprocedural pain (principal); Z98.890 Other specified postprocedural states
CPT/HCPCS: 85025; 80048; 36415; 80076; 83690; 74177; Q9967; J2405 ×2; 96374; 96375; 99284

== ENCOUNTER 2019-10-09 22:42 | Inpatient (IN) | payer OTHER ==
--- OUTSIDE RECORDS SUMMARY | 2019-10-09 22:44 | XMS REPORT ---
:1965 [facility] Address [address] [place] [address] [address] [place] [address] Care Team Providers Name Role Phone Unavailable Unavailable Unavailable Problems This patient has no known problems. Allergies, Adverse Reactions, Alerts This patient has no known allergies or adverse reactions. Medications This patient has no known medications.
--- OUTSIDE RECORDS SUMMARY | 2019-10-09 22:45 | XMS REPORT ---
[...] Status Dosage System Date Date [facility] 15159475938 5-325 MG Active 1 tablet Orally every 6 as needed hrs Albuterol Sulfate [facility] 01887913048 (5 MG/ML) 0.5% Active 1 ml as Inhalation needed every 6 hrs Flonase [facility] 71752142128 50 MCG/ACT Active 1 spray in Nasally Once a each day nostril Estradiol [facility] 60518178509 0.1 MG/GM Dec 17, Active as Vaginal Two 2019 directed times a Week Dexilant [facility] 10322550224 60 MG Orally February Active 1 capsule Once a day 2017 Omeprazole [facility] 41097969930 40MG Active TAKE ONE CAPSULE BY MOUTH ONCE DAILY Zestoretic [facility] 11328456734 10-12.5 MG Active 1 tablet Orally Once a day Ferrous Sulfate [facility] 98965345476 325 (65 Fe) MG Active 1 tablet Orally Once a day Singulair [facility] 67583164377 10 MG Orally Active 1 tablet Once a day in the evening Doxycycline Hyclate [facility] 98405351506 100 MG Orally Active 1 capsule twice a day Norvasc [facility] 20709892143 5 MG Orally Active 2 tablet Once a day Hydrochlorothiazide [facility] 55156910648 25 MG Orally Active 1 tablet Once a day in the morning Potassium Chloride ER [facility] 67621531929 10MEQ ER Active TAKE ONE TABLET BY MOUTH ONCE DAILY Simvastatin [facility] 61852719902 20MG Active TAKE ONE TABLET BY MOUTH ONCE DAILY Combivent ND 0 Active not defined Flovent Diskus [facility] 60897437472 100 MCG/BLIST Active 1 puff Inhalation Twice a day Aspir-81 [facility] 85807981989 81 MG Orally Active 1 tablet Once a day Klor-Con M10 [facility] 65584500316 10 MEQ Orally Active 1 tablet Twice a day with food Celexa ND 33414747842 40 MG Orally Active 0.5 tablet Once a day Omeprazole ND 82159904251 40 MG Orally Active 1 capsule Once a day Potassium Chloride ER ND 62514064774 20 MEQ Orally Active 1 capsule Once a day with food Zanaflex [facility] 54499480470 4 MG Orally Active 1 tablet twice times a as needed day Lisinopril [facility] 98098411041 20 MG Orally Dec 13, Active 1 tablet Once a day 2018 Flovent HFA [facility] 11603493355 110 MCG/ACT Active 1 puff Inhalation Twice a day Neurontin ND 07101618951 600 MG Orally Active 1 tablet Once a day Combivent Respimat [facility] 96725237420 20-100 MCG/ACT Active 1 puff Inhalation Four times a day Simvastatin ND 27423033593 20 MG Orally Active 1 tablet Once a day in the evening Amoxicillin [facility] 19100570576 500 MG Orally Active 1 tablet every 8 hrs Bactrim DS [facility] 11841229083 800-160 MG Jul Active 1 tablet Orally Twice a 2018 Coreg [facility] 08133395844 25 MG Orally Active not defined Results No Known Results Immunizations Vaccine Administration Date Afluria single dose Aug 21, 2019 Summary Purpose eClinicalWorks Submission
--- OUTSIDE RECORDS SUMMARY | 2019-10-09 22:46 | XMS REPORT ---
[...] End Status Dosage System Date Date Celexa [facility] 60268832423 40 MG Orally Active 0.5 tablet Once a day Omeprazole [facility] 71152433301 40MG Active TAKE ONE CAPSULE BY MOUTH ONCE DAILY Combivent Respimat [facility] 57790876212 20-100 MCG/ACT Active 1 puff Inhalation Four times a day Flovent HFA [facility] 21981164803 110 MCG/ACT Active 1 puff Inhalation Twice a day Simvastatin ND 69574297571 20 MG Orally Active 1 tablet Once a day in the evening Norvasc [facility] 81452898273 5 MG Orally Active 1 tablet Once a day in PM Flovent Diskus [facility] 03093201908 100 MCG/BLIST Active 1 puff Inhalation Twice a day Ferrous Sulfate [facility] 36108715168 325 (65 Fe) MG Active 1 tablet Orally Once a day Dexilant [facility] 43224231715 60 MG Orally Chelsea Active 1 capsule Once a day 2017 Zanaflex [facility] 85088570820 4 MG Orally Active 1 tablet twice times a as needed day - [facility] 62031945402 81 MG Orally Active 1 tablet Once a day Omeprazole [facility] 45541026093 40 MG Orally Active 1 capsule Once a day Albuterol Sulfate [facility] 96807725523 (5 MG/ML) 0.5% Active 1 ml as Inhalation needed every 6 hrs Amoxicillin [facility] 16840997705 500 MG Orally Active 1 tablet every 8 hrs Estradiol [facility] 16274616230 0.1 MG/GM Dec 17, Active as Vaginal Two 2019 directed times a Week Doxycycline Hyclate [facility] 03155119727 100 MG Orally Active 1 capsule twice a day Singulair [facility] 65197039891 10 MG Orally Active 1 tablet Once a day in the evening Flonase [facility] 55972938104 50 MCG/ACT Active 1 spray in Nasally Once a each day nostril Zestoretic [facility] 18472083411 10-12.5 MG Active 1 tablet Orally Once a day Neurontin [facility] 59610748831 600 MG Orally Active 1 tablet Once a day Coreg [facility] 04273704176 25 MG Orally Active not defined Lisinopril [facility] 71922952824 20 MG Orally Dec 13, Active 1 tablet Once a day 2018 Hydrochlorothiazide [facility] 33316399339 25 MG Orally Active 1 tablet Once a day in the morning Potassium Chloride ER [facility] 11506812312 20 MEQ Orally Active 1 capsule Once a day with food Results No Known Results Summary Purpose eClinicalWorks Submission
[2019-10-09] MEDS ORDERED: MORPHINE 4 MG/ML SYR ONE (23:16)
[2019-10-09] MEDS ORDERED: NA CHLORIDE 0.9% 1,000 ML ONE (23:16)
[2019-10-09] MEDS ORDERED: ONDANSETRON 4 MG/2 ML VIAL ONE (23:16)
[2019-10-09 23:25] LABS: Absolute Lymphocytes (CBC) 1.7 K/uL (0.7-4.9); Basophils % 0.6 % (0-1.3); Hematocrit 43.5 % (36.0-45.0); MPV 10.6 fL (7.6-11.3); RBC Red Blood Cell Count 4.99 M/uL (3.86-4.86)
[2019-10-09 23:38] LABS: Albumin 3.6 g/dL (3.4-5.0); Bilirubin Direct 0.3 mg/dL (0-0.2); Bilirubin Total 1.4 mg/dL (0.2-1.0); Potassium 3.2 mmol/L (3.5-5.1); Protein, Total 7.4 g/dL (6.4-8.2)
--- NOTE | 2019-10-10 01:27 | EDPHYS ---
Physician Documentation [facility] Name: Madhavi Michael Age: 53 yrs Sex: Female : 1965 Arrival Date: 10/09/2019 Time: 22:49 Bed 20 Private MD: MALENA Physician Marcin Manuel HPI: 10/09 23:56 This 53 yrs old Black Female presents to ER via EMS with complaints of ABDOMINAL PAIN, jmm VOMITING. 23:56 The patient presents with abdominal pain in the lower abdomen. Onset: The jmm symptoms/episode began/occurred gradually, 3 day(s) ago. The symptoms do not radiate. Associated signs and symptoms: Pertinent positives: vomiting. The symptoms are described as achy, sharp. Modifying factors: The symptoms are alleviated by nothing. This is a 53 year old female with a history of dm, CVA that presents to the ED with complaints of left lower abdominal pain beginning 3 days ago. Patient is s/p lap hernia repair. Patient was evaluated yesterday with normal ct. Patient states pain has worsened and had 1 episode of vomiting today. Patient's last bm this past Sunday. . 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 - Hysterectomy wh Historical: - Allergies: 22:57 NKA; jd3 - Home Meds: 22:57 amlodipine 10 mg tab [Active]; aspirin 81 mg Oral TbEC 1 tab once daily [Active]; jd3 Eliquis 2.5 mg Oral tab 1 tab 2 times per day [Active]; carvedilol 25 mg Oral tab 1 tab 2 times per day [Active]; gabapentin 600 mg Oral tab 1 tab 3 times per day [Active]; Iron CR 324mg Oral daily [Active]; Flovent Inhl [Active]; Ghent 10-325 mg Oral tab 1 tab every 4-6 hours for Pain [Active]; Simvastatin Oral [Active]; - PMHx: 22:57 neuropathy; Leaking Veins x2 Right Leg; Diabetes - NIDDM; CVA; COPD; Atrial Fib; jd3 sciatica; Sleep Apnea; Asthma; - PSHx: 22:57 Hysterectomy; Right Knee Replacement; Hernia repair; Tubal ligation; Fibroid Tumor jd3 Removal; - Immunization history:: Adult Immunizations up to date. - Social history:: Smoking status: Patient uses tobacco products, smokes one-half pack cigarettes per day. - Ebola Screening: : Patient negative for fever greater than or equal to 101.5 degrees Fahrenheit, and additional compatible Ebola Virus Disease symptoms. ROS: 23:56 Constitutional: Negative for fever, chills, and weight loss, Cardiovascular: Negative jmm for chest pain, palpitations, and edema, Respiratory: Negative for shortness of breath, cough, wheezing, and pleuritic chest pain. 23:56 Abdomen/GI: Positive for abdominal pain. 23:56 All other systems are negative. Exam: 23:56 Constitutional: This is a well developed, well nourished patient who is awake, alert, jmm and in no acute distress. Head/Face: atraumatic. Eyes: EOMI, no conjunctival erythema appreciated ENT: Moist Mucus Membranes Neck: Trachea midline, Supple Chest/axilla: Normal chest wall appearance and motion. Cardiovascular: Regular rate and rhythm. No edema appreciated Respiratory: Normal respirations, no respiratory distress appreciated 23:56 Back: Normal ROM Skin: General appearance color normal MS/ Extremity: Moves all extremities, no obvious deformities appreciated, no edema noted to the lower extremities Neuro: Awake and alert, normal gait 23:56 Abdomen/GI: Inspection: obese Bowel sounds: Palpation: soft, moderate abdominal tenderness, in the left lower quadrant. Vital Signs: 22:53 BP 139 / 93; Pulse 96; Resp 18 S; Temp 98.7(O); Pulse Ox 98% on R/A; Weight 127.91 kg jd3 (R); Height 5 ft. 7 in. (170.18 cm) (R); Pain 10/10; 23:42 BP 135 / 89; Pulse 84; Resp 18; Pulse Ox 97% on R/A; wh 10/10 01:57 BP 127 / 81; Pulse 85; Resp 18; Temp 98.6; Pulse Ox 98% on R/A; ak1 03:21 BP 133 / 85; Pulse 62; Resp 16; Pulse Ox 98% on R/A; ak1 10/09 22:53 Body Mass Index 44.17 (127.91 kg, 170.18 cm) jd3 MDM: 10/09 22:54 Patient medically screened. ray 10/10 01:23 Data reviewed: vital signs, nurses notes. Counseling: I had a detailed discussion with leila the patient and/or guardian regarding: the historical points, exam findings, and any diagnostic results supporting the discharge/admit diagnosis, lab results, radiology results, the need for further work-up and treatment in the hospital. ED course: I discussed the patient with Dr. Diop whom will consult on admission. I discussed the patient with Dr. Farmer whom accepted admission. . 10/09 22:57 Order name: Basic Metabolic Panel; Complete Time: 23:41 10/09 22:57 Order name: CBC with Diff; Complete Time: 23:41 10/09 22:57 Order name: Creatinine for Radiology; Complete Time: 23:41 10/09 22:57 Order name: Hepatic Function; Complete Time: 23:41 10/09 22:57 Order name: Lipase; Complete Time: 23:41 10/09 23:06 Order name: Lactate; Complete Time: 23:41 [facility] 10/09 23:06 Order name: CT Stone Protocol [facility] 10/09 22:57 Order name: IV Saline Lock; Complete Time: 22:58 10/09 22:57 Order name: Labs collected and sent; Complete Time: 22:58 10/10 01:09 Order name: NG Tube; Complete Time: 01:55 [facility] Administered Medications: 10/09 23:18 Drug: NS 0.9% 1000 ml Route: IV; Rate: 1 bolus; Site: left forearm; 10/10 02:11 Follow up: IV Status: Completed infusion; IV Intake: 1000ml [facility] 10/09 23:20 Drug: Zofran 4 mg Route: IVP; Site: left forearm; 10/10 01:18 Follow up: Response: No adverse reaction [facility] 10/09 23:22 Drug: morphine 4 mg {Note: RASS 0.} Route: IVP; Site: left forearm; 10/10 01:18 Follow up: Response: No adverse reaction ak1 01:53 Drug: Ativan 1 mg Route: IVP; Site: left forearm; ak1 02:12 Follow up: Response: No adverse reaction ak1 01:54 Drug: Zosyn 3.375 grams Route: IVPB; Infused Over: 60 mins; Site: left forearm; ak1 02:12 Follow up: IV Status: Completed infusion ak1 01:54 Drug: morphine 4 mg Route: IVP; Site: left forearm; ak1 02:12 Follow up: Response: No adverse reaction ak1 01:54 Drug: Zofran 4 mg Route: IVP; Site: left forearm; ak1 02:11 Follow up: Response: No adverse reaction ak1 Disposition: 13:56 Co-signature as Attending Physician, Marcin Manuel MD I agree with the assessment and ray plan of care. Disposition: 10/10/19 01:26 Hospitalization ordered by Missael Farmer for Inpatient Admission. Preliminary diagnosis is Bowel Obstruction. - Bed requested for Telemetry/MedSurg (observation). - Status is Inpatient Admission. ak1 - Condition is Stable. - Problem is new. - Symptoms are unchanged. UTI on Admission? No Signatures: Dispatcher [employer] EDMS Marcin Manuel MD MD cha Mickail, Joel, PA PA jmm Krenek, Amber, RN RN ak1 Angela Hogan RN RN cg Radha Hawkins Jonathon RN RN jd3 Corrections: (The following items were deleted from the chart) 03:19 01:26 Hospitalization Ordered by Missael Farmer for Inpatient Admission. Preliminary cg diagnosis is Bowel Obstruction. Bed requested for Telemetry/MedSurg (observation). Status is Inpatient Admission. Condition is Stable. Problem is new. Symptoms are unchanged. UTI on Admission? No. shyla 03:35 03:19 10/10/2019 01:26 Hospitalization Ordered by Missale Farmer for Inpatient ak1 Admission. Preliminary diagnosis is Bowel Obstruction. Bed requested for Telemetry/MedSurg (observation). Status is Inpatient Admission. Condition is Stable. Problem is new. Symptoms are unchanged. UTI on Admission? No. cg
--- NOTE | 2019-10-10 01:27 | ER ---
Nurse's Notes [facility] Name: Madhavi Michael Age: 53 yrs Sex: Female : 1965 Arrival Date: 10/09/2019 Time: 22:49 Bed 20 Private MD: Diagnosis: Bowel Obstruction Presentation: 10/09 22:49 Presenting complaint: EMS states: "the pt had a hernia repair on Sunday and has not jd3 been able to have a bowel movement since then. she reported that she is having bad acid reflux and nausea. she also reported that she has been taking the pain medication and didn't take the stool softeners.". Transition of care: patient was not received from another setting of care. Onset of symptoms was October 09, 2019. Risk Assessment: Do you want to hurt yourself or someone else? Patient reports no desire to harm self or others. Initial Sepsis Screen: Does the patient meet any 2 criteria? No. Patient's initial sepsis screen is negative. Does the patient have a suspected source of infection? No. Patient's initial sepsis screen is negative. Care prior to arrival: None. 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 N/A - Hysterectomy wh Historical: - Allergies: 22:57 NKA; jd3 - Home Meds: 22:57 amlodipine 10 mg tab [Active]; aspirin 81 mg Oral TbEC 1 tab once daily [Active]; jd3 Eliquis 2.5 mg Oral tab 1 tab 2 times per day [Active]; carvedilol 25 mg Oral tab 1 tab 2 times per day [Active]; gabapentin 600 mg Oral tab 1 tab 3 times per day [Active]; Iron CR 324mg Oral daily [Active]; Flovent Inhl [Active]; [place] 10-325 mg Oral tab 1 tab every 4-6 hours for Pain [Active]; Simvastatin Oral [Active]; - PMHx: 22:57 neuropathy; Leaking Veins x2 Right Leg; Diabetes - NIDDM; CVA; COPD; Atrial Fib; jd3 sciatica; Sleep Apnea; Asthma; - PSHx: 22:57 Hysterectomy; Right Knee Replacement; Hernia repair; Tubal ligation; Fibroid Tumor jd3 Removal; - Immunization history:: Adult Immunizations up to date. - Social history:: Smoking status: Patient uses tobacco products, smokes one-half pack cigarettes per day. - Ebola Screening: : Patient negative for fever greater than or equal to 101.5 degrees Fahrenheit, and additional compatible Ebola Virus Disease symptoms. Screenin:58 Abuse screen: Denies threats or abuse. Nutritional screening: No deficits noted. jd3 Tuberculosis screening: No symptoms or risk factors identified. Fall Risk Ambulatory Aid- None/Bed Rest/Nurse Assist (0 pts). Gait- Normal/Bed Rest/Wheelchair (0 pts) Mental Status- Oriented to own ability (0 pts). Total Mathis Fall Scale indicates No Risk (0-24 pts). Assessment: 23:04 General: Appears in no apparent distress. uncomfortable, Behavior is cooperative, wh appropriate for age. Pain: Complains of pain in abdomen Pain does not radiate. Pain currently is 7 out of 10 on a pain scale. Quality of pain is described as Diffuse Pain began 2-3 days ago. Neuro: Level of Consciousness is awake, alert, obeys commands, Oriented to person, place, time, situation, Appropriate for age. Cardiovascular: Heart tones S1 S2. Respiratory: Airway is patent Respiratory effort is even, unlabored, Respiratory pattern is regular, symmetrical, Breath sounds are clear bilaterally. GI: Abdomen is round firm Bowel sounds present X 4 quads. Abd is soft Abdomen is tender to palpation X 4 quads. Reports constipation, nausea, vomiting. : No signs and/or symptoms were reported regarding the genitourinary system. EENT: No signs and/or symptoms were reported regarding the EENT system. Derm: Skin is intact, is healthy with good turgor, Skin is pink, warm \\T\\ dry. normal. Musculoskeletal: Circulation, motion, and sensation intact. 23:42 Reassessment: Patient appears in no apparent distress at this time. No changes from wh previously documented assessment. Patient and/or family updated on plan of care and expected duration. Pain level reassessed. Patient is alert, oriented x 3, equal unlabored respirations, skin warm/dry/pink. Vital Signs: 22:53 BP 139 / 93; Pulse 96; Resp 18 S; Temp 98.7(O); Pulse Ox 98% on R/A; Weight 127.91 kg jd3 (R); Height 5 ft. 7 in. (170.18 cm) (R); Pain 10/10; 23:42 BP 135 / 89; Pulse 84; Resp 18; Pulse Ox 97% on R/A; wh 10/10 01:57 BP 127 / 81; Pulse 85; Resp 18; Temp 98.6; Pulse Ox 98% on R/A; ak1 03:21 BP 133 / 85; Pulse 62; Resp 16; Pulse Ox 98% on R/A; ak1 10/09 22:53 Body Mass Index 44.17 (127.91 kg, 170.18 cm) [facility] ED Course: 10/09 22:49 Patient arrived in ED. [facility] 22:53 Triage completed. [facility] 22:53 Benito Pineda PA is PHCP. [facility] 22:53 Marcin Manuel MD is Attending Physician. [facility] 22:57 Radha Hawkins is Primary Nurse. 22:58 Arm band placed on. [facility] 22:58 Patient has correct armband on for positive identification. Bed in low position. Call [facility] light in reach. Side rails up X2. 23:10 Inserted saline lock: 20 gauge in left forearm, using aseptic technique. Blood wh collected. 10/10 00:16 CT Stone Protocol In Process Unspecified. EDMS 00:56 CT completed. Pt tolerated procedure poorly. Patient moved to CT via stretcher. Patient eh moved back from CT. 01:24 Missael Farmer is Hospitalizing Provider. [facility] 01:55 NGT: inserted 12 Fr. via left nare. verified placement of air over stomach, verified ak1 return of gastric contents, to intermittent suction. Patient tolerated well. 01:56 No provider procedures requiring assistance completed. Patient admitted, IV remains in ak1 place. Administered Medications: 10/09 23:18 Drug: NS 0.9% 1000 ml Route: IV; Rate: 1 bolus; Site: left forearm; 10/10 02:11 Follow up: IV Status: Completed infusion; IV Intake: 1000ml [facility] 10/09 23:20 Drug: Zofran 4 mg Route: IVP; Site: left forearm; 10/10 01:18 Follow up: Response: No adverse reaction [facility] 10/09 23:22 Drug: morphine 4 mg {Note: RASS 0.} Route: IVP; Site: left forearm; 10/10 01:18 Follow up: Response: No adverse reaction ak1 01:53 Drug: Ativan 1 mg Route: IVP; Site: left forearm; ak1 02:12 Follow up: Response: No adverse reaction ak1 01:54 Drug: Zosyn 3.375 grams Route: IVPB; Infused Over: 60 mins; Site: left forearm; ak1 02:12 Follow up: IV Status: Completed infusion ak1 01:54 Drug: morphine 4 mg Route: IVP; Site: left forearm; ak1 02:12 Follow up: Response: No adverse reaction ak1 01:54 Drug: Zofran 4 mg Route: IVP; Site: left forearm; ak1 02:11 Follow up: Response: No adverse reaction ak1 Intake: 02:11 IV: 1000ml; Total: 1000ml. ak1 Outcome: 01:26 Decision to Hospitalize by Provider. leila 01:56 Condition: good ak1 01:56 Instructed on the need for admit. 03:24 Admitted to Med/surg accompanied by nurse, via stretcher, room 221, with chart, Report ak1 called to Shar CROOKS 03:35 Patient left the ED. ak1 Signatures: Dispatcher [employer] EDMS Benito Pineda PA PA jmm Hagler, Ervin eh Krenek, Amber RN RN ak1 Radha Hawkins Jonathon, RN RN jd3
[2019-10-10] MEDS ORDERED: LORazepam 2 MG/ML VIAL ONE (01:29)
[2019-10-10] MEDS ORDERED: MORPHINE 4 MG/ML SYR ONE (01:30)
[2019-10-10] MEDS ORDERED: ONDANSETRON 4 MG/2 ML VIAL ONE (01:30)
[2019-10-10] MEDS ORDERED: PIPER/TAZO/NS 3.375gm 3.375 GM/100 ML BAG ONE ×2 (01:30→05:23)
--- NOTE | 2019-10-10 02:36 | P.HP ---
Certification for Inpatient Patient admitted to: Inpatient With expected LOS: >2 Midnights Practitioner: I am a practitioner with admitting privileges, knowledge of patient current condition, hospital course, and medical plan of care. Services: Services provided to patient in accordance with Admission requirements found in Title 42 Section 412.3 of the Code of Federal Regulations Patient History Date of Service: 10/10/19 Reason for admission: Abdominal pain and vomiting History of Present Illness: 53-year-old morbidly obese woman with a history of hypertension , chronic atrial fibrillation on Eliquis, asthma had a ventral hernia repair done 4 days ago. Patient reports no bowel movement after the surgery but was passing gas. She stated her abdominal pain worsened a couple of days after the surgery. She presented to the ED yesterday where CT abdomen and pelvis demonstrated a collection of fluid in the lower abdomen likely secondary to hematoma or seroma. Patient was discharged home only to return to the ED again for worsening abdominal pain and vomiting. Repeat CT abdomen and pelvis now demonstrating high-grade bowel obstruction with a transition point. Dr. Diop was informed by the ED provided and he recommended NG tube insertion and admission to the hospitalist service for him to evaluate in the morning. Patient seen in the ED after NG tube has been inserted. I saw the NG tube aspirate was blood stained. Allergies No Known Drug Allergies Allergy (Verified 10/10/19 03:51) Unknown Home Medications: Amlodipine [Norvasc*] 10 mg PO BEDTIME 10/10/19 Apixaban [Eliquis *] 2.5 mg PO DAILY 10/10/19 Aspirin Chewable [Aspirin Chewable*] 81 mg PO DAILY 10/10/19 Budesonide/Formoterol Fumarate [Symbicort 160-4.5 Mcg Inhaler] 1 puff IH BIDP PRN 10/10/19 Carvedilol [Coreg*] 25 mg PO BID 10/10/19 Fluticasone [Flovent Hfa 110*] 2 puff IH BID PRN 10/10/19 Gabapentin 600 mg PO TID 10/10/19 Hydrocodone 10/APAP 325 [[place] 10/325*] 1 tab PO TIDP PRN 10/10/19 Lisinopril [Prinivil*] 20 mg PO DAILY 10/10/19 Montelukast Sodium [Singulair] 10 mg PO DAILY 10/10/19 Omeprazole [Prilosec] 40 mg PO DAILY 10/10/19 hydroCHLOROthiazide [Hydrochlorothiazide] 12.5 mg PO DAILY 10/10/19 predniSONE [Prednisone*] 10 mg PO DAILY 10/10/19 - Past Medical/Surgical History Diabetic: Yes -: Asthma -: Diabetes mellitus type 2 -: Hyperlipidemia -: Hypertension -: Obstructive sleep apnea -: Tobacco abuse -: Atrial fibrillation -: Chronic anti coagulation -: Obesity -: Cholecystectomy -: Tubal ligation -: Hysterectomy -: Right knee replacement Psychosocial/ Personal History: The patient is currently . She has 3 children. She does not work. - Family History Mother -: Hypertension - Social History Alcohol use: No CD- Drugs: No Caffeine use: Yes Review of Systems Other: General: No fever, no malaise, no unintentional weight loss. Eyes: No eye discharge, Respiratory: No cough, no shortness of breath. CVS: No chest pain, no palpitation, no lightheadedness. Genitourinary: No dysuria, no urinary frequency, no incontinence, no hematuria. Musculoskeletal: No joint pains, or joint swelling, no gait instability. Neurology: No headache, no asymmetric, weakness, no problem with swallowing. Except as documented, all other systems reviewed and negative. Physical Examination - Physical Exam General: Alert, In no apparent distress, Oriented x3, Obese HEENT: Normocephalic, PERRLA, Mucous membr. moist/pink, Sclerae nonicteric Neck: Supple, JVD not distended, No Thyromegaly Respiratory: Clear to auscultation bilaterally, Normal air movement Cardiovascular: No edema, Normal pulses, Regular rate/rhythm, Normal S1 S2, No murmurs Capillary refill: <2 Seconds Gastrointestinal: Soft and benign, Other (Obese abdomen), Hyperactive, Tenderness (Pronounced in the left lower quadrant.) Musculoskeletal: No swelling, No erythema Integumentary: No rashes Neurological: Normal speech, Normal strength at 5/5 x4 extr, Cranial nerves 3- 12 intact - Studies Laboratory Data (last 24 hrs) 10/09/19 23:00: Creatinine 0.83 10/09/19 23:00: WBC 7.6 D, Hgb 14.6, Hct 43.5, Plt Count 130 L 10/09/19 23:00: Sodium 140, Potassium 3.2 L, BUN 14, Creatinine 0.84, Glucose 95 , Total Bilirubin 1.4 H, AST 29, ALT 38, Alkaline Phosphatase 45, Lipase 74 Assessment and Plan - Problems (Diagnosis) (1) Small bowel obstruction Current Visit: Yes Status: Acute (2) Chronic anticoagulation Current Visit: No Status: Chronic (3) Diabetes type 2, controlled Current Visit: No Status: Chronic Qualifiers: Diabetes mellitus retirement insulin use: without retirement use Diabetes mellitus complication status: without complication Qualified Code(s): E11.9 - Type 2 diabetes mellitus without complications (4) Essential hypertension Current Visit: No Status: Chronic (5) History of asthma Current Visit: No Status: Chronic (6) Obstructive sleep apnea Onset Date: 09/11/17 Current Visit: No Status: Chronic - Plan Admit to the medical floor Supportive measures with IV normal saline IV morphine p.r.n. for pain NG-tube to suction Empiric IV Zosyn Hold Eliquis. Coverage with subcutaneous Lovenox depending on timing of surgery. Treat blood pressure with IV hydralazine p.r.n. Insulin sliding scale for glucose management Bronchodilators p.r.n. CPAP at night General surgery consult-to Dr. Diop. - Advance Directives Does patient have a Living Will: No Does patient have a Durable POA for Healthcare: No
[2019-10-10] MEDS ORDERED: ONDANSETRON 4 MG/2 ML VIAL IV PRN (03:52)
[2019-10-10] MEDS ORDERED: HYDRALAZINE HCL 20 MG/ML VIAL IV PRN (03:52)
[2019-10-10] MEDS ORDERED: NA CHLORIDE 0.9% 1,000 ML IV SCH (03:52)
[2019-10-10] MEDS ORDERED: ALBUTEROL 2.5 MG/3 ML NEB SOL NEB PRN (03:52)
[2019-10-10] MEDS: MORPHINE 2 MG/ML SYR IV PRN ×3 (04:41→19:09)
[2019-10-10 05:06] VITALS: BMI 44.1
[2019-10-10] MEDS ORDERED: PIPER/TAZO/NS 3.375gm 3.375 GM/100 ML BAG IVPB SCH (06:00)
[2019-10-10] MEDS: KCL 20 MEQ/100 mL IVPB 20 MEQ/100 ML BAG IV SCH ×2 (06:46→08:25)
[2019-10-10 07:30] LABS: Absolute Lymphocytes (CBC) 1.3 K/uL (0.7-4.9); Basophils % 0.5 % (0-1.3); Hematocrit 40.7 % (36.0-45.0); Lymphocytes % 24.6 % (15.3-44.8); MPV 10.2 fL (7.6-11.3); RBC Red Blood Cell Count 4.65 M/uL (3.86-4.86)
[2019-10-10] MEDS: INSULIN -REGULAR HUMAN 50 UNIT/0.5 ML ML SQ SCH ×4 (07:30→21:00)
[2019-10-10 07:32] LABS: Protime INR 1.14
[2019-10-10 07:40] LABS: Albumin 3.3 g/dL (3.4-5.0); Bilirubin Total 1.4 mg/dL (0.2-1.0); Magnesium 2.5 mg/dL (1.8-2.4); Phosphorus 3.6 mg/dL (2.5-4.9); Potassium 3.4 mmol/L (3.5-5.1); Protein, Total 6.6 g/dL (6.4-8.2)
[2019-10-10] MEDS: NA CHLORIDE 0.9% 1,000 ML IV SCH ×2 (08:26→16:58)
[2019-10-10] MEDS ORDERED: ENOXAPARIN 40 MG/0.4 ML SQ SCH (09:00)
--- NOTE | 2019-10-10 09:44 | RAD REPORT ---
EXAM DESCRIPTION: CT ABDOMEN AND PELVIS WITHOUT CONTRAST CLINICAL HISTORY: Abdominal pain, recent surgery COMPARISON: None Available. TECHNIQUE: CT of the abdomen and pelvis without IV contrast. Evaluation of the solid organs and vasc ulature is suboptimal due to lack of IV contrast. FINDINGS: Lung Bases: The visualized lung bases are clear. Bones: No destructive bone lesions identified. Abdomen: Liver: The liver has normal size and decreased density. Gallbladder: Prior cholecystectomy. Spleen, Pancreas, and Adrenal Glands: The spleen, pancreas, and adrenal glands are unremarkable. Kidneys: The kidneys have normal size without evidence of hydronephrosis. No obstructing ureteral martha culi. Vasculature: Aortoiliac atherosclerosis. IVC is unremarkable. Stomach: The stomach and duodenum have normal course. Other: No free intraperitoneal air. Well-circumscribed fluid collection in the pelvis measuring 5 .2 x 6.0 cm. Scattered foci of air in the subcutaneous anterior abdominal soft tissues may be postope rative. Pelvis: Bladder: Urinary bladder is unremarkable. Bowel: Dilated loops of small bowel and distally decompressed loops of bowel. A high-grade transiti on point is seen on image #119, series #201 mid abdomen. Scattered diverticula colon. Appendix: Not identified. Pelvis: Prior hysterectomy. IMPRESSION: 1. Findings compatible with mechanical high-grade small bowel obstruction. Transition po int seen in the lower abdomen on image #119, series in particular 2. Fluid collection in the anterior left pelvis measuring 6.0 cm in greatest dimension. This may repr esent postoperative hematoma/seroma however abscess could produce a similar appearance. 3. Fat stranding and subcutaneous air in the anterior abdominal soft tissues may be postoperative. 4. Hepatic steatosis. This exam was performed according to our departmental dose-optimization program, which includes autom ated exposure control, adjustment of the mA and/or kV according to patient size and/or use of iterati ve reconstruction technique. Electronically signed by: Felix Humphries 10/10/2019 12:34 AM PRODUCT ENGINEERING MANAGER Due to temporary technical issues with the PACS/Fluency reporting system, reports are being signed by the in house radiologist as a courtesy to ensure prompt reporting. The interpreting radiologist is f ully responsible for the content of the report.
[2019-10-10] MEDS: PIPER/TAZO/NS 3.375gm 3.375 GM/100 ML BAG IVPB SCH ×2 (12:36→16:32)
[2019-10-10] MEDS ORDERED: LABETALOL 20 MG/4ML SYRINGE IV PRN (17:02)
--- NOTE | 2019-10-10 17:05 | PN ---
Date of Progress Note: 10/10/2019 Subjective: Patient seen and examined. Chart reviewed and case discussed with RN and Dr. Diop. Patient did have a bowel movement last night. States her pain is better, however, still somewhat dis tended. Medications: List reviewed. Physical Examination: Vital Signs: Temperature 97.6, heart rate 77, blood pressure 114/54, respirations 18, O2 95% on room air. General: Awake, alert, oriented x3, ill-appearing morbidly obese female. CV: S1, S2. Regular rate and rhythm. Peripheral pulses present. Respiratory: Moving air well bilaterally. No wheezing or stridor. Gastrointestinal: Abdomen is soft. Mild tenderness to palpation around the incision site. Mild dis tention. Bowel sounds are hypoactive. Extremities: No clubbing, cyanosis, or edema. Neurologic: Cranial nerves 2 through 12 intact grossly. No focal neurological deficits. Speech is normal. Laboratory Data: Sodium 144, potassium 3.4, chloride 105, CO2 of 35, BUN 14, creatinine 1.04, glucos e 104, calcium 9, lactate 1, phosphorus 3.6, magnesium 2.5. WBC 5.2, H and H 13.4 and 40.7, platelet s 104, neutrophils 61%. CT scan; mechanical high-grade small-bowel obstruction, transition point, lo wer abdomen, fluid collection in anterior pelvis, measuring 6 cm, likely postoperative hematoma, fat stranding and subcutaneous air in the anterior abdomen, abdominal soft tissues may be postoperative, hepatic steatosis. Assessment And Plan: 53-year-old female with: 1.High-grade small bowel obstruction, likely postoperative. However, patient did pass bowel movemen t yesterday and had some gas. Continues to have some pain. We will keep NG tube in place, perhaps c lamp NG tube if okay with Surgery. 2.Diabetes mellitus type 2 without long-term use of insulin with hyperglycemia without any complicat ions. We will continue with sliding scale insulin and monitor blood glucose levels. 3.Essential hypertension, stable. 4.History of asthma. Continue albuterol p.r.n. 5.Obstructive sleep apnea, chronic. Continue CPAP at night. 6.Mixed hyperlipidemia. We will continue statin. 7.Atrial fibrillation, on Eliquis. 8.Morbid obesity. BMI 44. SA/MODL Voice ID: [id number] Report ID: [id number]
--- NOTE | 2019-10-10 17:59 | CON ---
Date of Consultation: 10/10/2019 Brief History Of Present Illness: Patient is a 53-year-old female, known to me from previous recent abdominal surgery. I saw her approximately 4 to 5 days ago for a laparoscopic ventral hernia repair for recurrent ventral abdominal hernia. She had an uneventful laparoscopic ventral hernia repair wit h mesh and had one of the larger meshes, 25 x 20 cm I believe, placed at that time with approximately 90 absorbable fixation tacks. She was hemodynamically stable and had no acute issues after going [place]. She went home and had experienced increasing abdominal pain and therefore she took her pain medi cation. However, she admits that she took double to triple the amount of pain medication as was pres cribed during the interval. Shortly thereafter, her pain worsened significantly and she started to g et more distended, bloated, and she no longer had any bowel function. She was passing gas initially after surgery, but she developed nausea, vomiting, and worsening abdominal distention. As such, she came to the emergency room on 2 separate occasions. On the first occasion, she had a CT scan of the abdomen and pelvis, which was not definitive in diagnosing any issues. There were normal postoperati ve changes. She was discharged home after receiving more pain medication. She then came back once a gain with worsening distention, abdominal pain. Had a CT scan of the abdomen and pelvis, which was s uspicious for high-grade bowel obstruction in the small bowel. There was no obvious herniation or re currence of hernia. There was a likely hematoma, which was seen on the previous CT as well, but did not appear to be related to the transition point of the bowel obstruction. She since admission, luke rodriguez, had an NG tube placed and has been passing significant amount of gas and had a bowel movement si nce being admitted to the hospital. She has significant improvement in her symptoms, less abdominal pain, less distention, and has described return of bowel function. No more nausea, but NG tube remai ns in place. Past Medical History: Significant for morbid obesity, asthma, diabetes, hypertension, hyperlipidemia , obstructive sleep apnea, tobacco abuse, atrial fibrillation, on chronic anticoagulation with Eliqui s and aspirin. Past Surgical History: Cholecystectomy, tubal ligation, hysterectomy, right knee replacement, and th e ventral hernia repair with mesh as described above. She is . She has 3 children. She de nies recreational drug use. Her mother had hypertension. Home Medications: Norvasc; Eliquis, which she states she has not taken since 2 days preop from the i nitial surgery; aspirin she also has not restarted per her description; budesonide; carvedilol; Flove nt; gabapentin; [place]; Prinivil; Singulair; Prilosec; hydrochlorothiazide; prednisone. Allergies: NO KNOWN DRUG ALLERGIES. Review of Systems: 10-point review of systems other than HPI, denies. Physical Examination: Vital Signs: At the time of examination, her BMI is 44.2, her temperature is 97.6, blood pressure 11 4/54, pulse is 77, respiratory rate 18. General: She is awake, alert, oriented. Psychiatric: She is appropriate and conversive. She is in no apparent distress. HEENT: She is normocephalic. Her sclerae are anicteric. Mucous membranes are moist. Oropharynx is clear. An NG tube is in place. Neck: Supple. No JVD. Chest: Normal expansion and excursion. Cardiovascular: Regular rate and rhythm. Pulmonary: Clear to auscultation bilaterally. Abdomen: Soft with mild global tenderness to palpation. No rebound. No focal peritoneal signs. He r surgical scars are well healing and sealed appropriately. She has appropriate postoperative tender ness. She remains mildly distended at this time. Bowel sounds are present and normal. Extremities: No clubbing, cyanosis, or edema. Skin: Warm and dry. Laboratory Data: White blood cell count of 5.2, hemoglobin 13.4, hematocrit of 40.7, platelet count is 104. Her PT is 13.4, INR 1.4. Sodium 144, potassium 3.4, chloride 105, carbon dioxide 35, BUN 14 , creatinine 1.4, glucose is 104. Her lactic acid is 1.0, calcium 9.0, phosphorus is 3.6, magnesium 2.5, total bilirubin 1.4, AST 43, ALT 43, alkaline phosphatase is 44. Her lipase is 74. On admissio n, she had a CT scan performed of the abdomen and pelvis, as described. I personally reviewed this w ith Dr. Tao. The official review, however, is read as fluid collection in the anterior pelvis, philippe uring 6 cm in greatest dimension. This may represent postoperative hematoma/seroma, however, abscess can produce similar appearance. Findings compatible with mechanical high-grade small bowel obstruct ion, transition point seen in the lower abdomen on image 19 series in particular, fat stranding and s ubcutaneous air in the anterior abdominal soft tissue may be postoperative, hepatic steatosis. Assessment And Plan: This is a 53-year-old female, who presents with a postoperative bowel obstructi on after laparoscopic ventral hernia repair, likely secondary to narcotic overuse. 1.NG tube decompression, to continue. 2.IV fluid hydration. 3.Serial abdominal exams. 4.I do not believe patient has a high-grade bowel obstruction caused by a mechanical source at this point. However, we cannot completely rule this out and as such I will perform serial abdominal exams and try nonoperative management initially to see if she has resolution of her symptoms as she contin ues to have significant improvement in her symptoms since her admission. I explained the risks, bene fits, and alternatives of the above-stated plan. Patient agrees to proceed as indicated. RODNEY/ALISE Voice ID: [id number] Report ID: [id number]
[2019-10-10] MEDS ORDERED: KCL 20 MEQ/100 mL IVPB 20 MEQ/100 ML BAG IV SCH (23:45)
[2019-10-11] MEDS: PIPER/TAZO/NS 3.375gm 3.375 GM/100 ML BAG IVPB SCH ×3 (01:00→16:19)
[2019-10-11] MEDS: NA CHLORIDE 0.9% 1,000 ML IV SCH ×3 (01:40→17:25)
[2019-10-11] MEDS: MORPHINE 2 MG/ML SYR IV PRN ×2 (02:43→19:18)
[2019-10-11 06:34] LABS: Absolute Lymphocytes (CBC) 1.3 K/uL (0.7-4.9); Basophils % 0.4 % (0-1.3); Hematocrit 38.4 % (36.0-45.0); MPV 10.6 fL (7.6-11.3); RBC Red Blood Cell Count 4.38 M/uL (3.86-4.86)
[2019-10-11 06:37] LABS: Albumin 3.1 g/dL (3.4-5.0); Magnesium 2.2 mg/dL (1.8-2.4); Phosphorus 3.5 mg/dL (2.5-4.9); Potassium 3.6 mmol/L (3.5-5.1); Protein, Total 6.2 g/dL (6.4-8.2)
[2019-10-11] MEDS: INSULIN -REGULAR HUMAN 50 UNIT/0.5 ML ML SQ SCH ×4 (07:30→21:00)
[2019-10-11] MEDS ORDERED: KCL 20 MEQ/100 mL IVPB 20 MEQ/100 ML BAG IV ONE (08:00)
[2019-10-11 08:58] LABS: Urine Appearance CLEAR; Urine Bilirubin NEGATIVE (NEG); Urine Color YELLOW; Urine Glucose NEGATIVE (NEG)
[2019-10-11 08:59] LABS: Urine Amorphous Sediment 1+ /HPF (NONE SEEN); Urine Bacteria 20-50 /HPF (<20); Urine Blood 2+ (NEG); Urine Culture Reflex Order REFLEXED; Urine Microscopic Reflex ORDER UMIC; Urine Protein NEGATIVE (NEG); Urine RBC <5 /HPF (NONE SEEN); Urine Urobilinogen 0.2 mg/dL (0.2-1.0)
[2019-10-11] MEDS ORDERED: KCL 20 MEQ/100 mL IVPB 20 MEQ/100 ML BAG IV SCH (09:00)
[2019-10-11] MEDS ORDERED: HOME MED 1 EA UNK (Budesonide/Formoterol Fumarate [Symbicort 160-4.5 Mcg Inhaler] 1 PUFF) IH PRN (11:25)
[2019-10-11] MEDS: GABAPENTIN 300 MG CAP PO SCH ×2 (13:45→20:24)
[2019-10-11] MEDS ORDERED: HOME MED 1 EA UNK (Gabapentin [Gabapentin] 600 MG) PO SCH (14:00)
--- NOTE | 2019-10-11 15:20 | PN ---
Date of Progress Note: 10/11/2019 Subjective: Patient is seen and examined. Chart reviewed and case discussed with RN and Dr. Diop. Patient has had multiple bowel movements. Pain is improved significantly. Medications: List reviewed. Physical Examination: Vital Signs: Temperature 97.9, heart rate 76, blood pressure 146/69, respirations 20, O2 97% on room air. General: Awake, alert and oriented x3, somewhat ill-appearing female, morbidly obese. BMI 44. CV: S1, S2. Regular rate and rhythm. Peripheral pulses present. Respiratory: Moving air well bilaterally. No wheezing or stridor. No use of accessory muscles. Gastrointestinal: No tenderness to palpation. Incision site clean, dry, intact. Bowel sounds positive. Extremities: No clubbing, cyanosis, or edema. Neurologic: Nonfocal. Laboratory Data: Sodium 145, potassium 3.6, chloride 110, CO2 29, BUN 12, creatinine 0.87, glucose 79, calcium 8.3, phosphorus 3.5, magnesium 2.2. WBC 4.6, H and H 12.9 and 38.4, platelets 111. Assessment And Plan: A 53-year-old female with 1. High-grade small bowel obstruction likely postoperative, resolving. Patient has had bowel movement and gas. NG tube to be discontinued. Start on clear liquids. Appreciate Dr. Diop's input. 2. Diabetes mellitus type 2 without long-term use of insulin, without any complications. We will continue with sliding scale insulin. Monitor blood glucose levels. 3. Essential hypertension, stable. 4. History of asthma. Continue albuterol p.r.n. 5. Obstructive sleep apnea, chronic. Continue CPAP at night. Patient instructed to bring in her own CPAP from home. 6. Mixed hyperlipidemia. We will continue statin. 7. Atrial fibrillation. Eliquis on hold due to hematoma in the surgical site. 8. Morbid obesity, BMI 44. Plan, likely discharge in the next 24-48 hours depending on clinical response. SA/MODL Voice ID: [id number] Report ID: [id number] MTDD
[2019-10-11] MEDS: carvediloL 25 MG TAB PO SCH (17:25)
[2019-10-11] MEDS ORDERED: AMLODIPINE 10 MG TAB PO SCH (21:00)
[2019-10-12] MEDS: PIPER/TAZO/NS 3.375gm 3.375 GM/100 ML BAG IVPB SCH ×2 (00:24→10:02)
[2019-10-12] MEDS: carvediloL 25 MG TAB PO SCH (06:16)
[2019-10-12] MEDS: NA CHLORIDE 0.9% 1,000 ML IV SCH (06:18)
[2019-10-12] MEDS ORDERED: PANTOPRAZOLE 40MG TABLET PO SCH (06:30)
[2019-10-12 06:40] LABS: Absolute Lymphocytes (CBC) 1.7 K/uL (0.7-4.9); Basophils % 0.7 % (0-1.3); Hematocrit 39.2 % (36.0-45.0); Lymphocytes % 32.1 % (15.3-44.8); MPV 10.1 fL (7.6-11.3); RBC Red Blood Cell Count 4.51 M/uL (3.86-4.86)
[2019-10-12 06:45] LABS: Phosphorus 3.1 mg/dL (2.5-4.9); Potassium 3.5 mmol/L (3.5-5.1)
[2019-10-12] MEDS: INSULIN -REGULAR HUMAN 50 UNIT/0.5 ML ML SQ SCH ×2 (07:30→11:30)
[2019-10-12] MEDS ORDERED: KCL 20 MEQ/100 mL IVPB 20 MEQ/100 ML BAG IV SCH (08:00)
[2019-10-12] MEDS ORDERED: hydroCHLOROthiazide 12.5 MG CAP PO SCH (09:00)
[2019-10-12] MEDS ORDERED: HOME MED 1 EA UNK (Hydrochlorothiazide [Hydrochlorothiazide] 12.5 MG) PO SCH (09:00)
[2019-10-12] MEDS ORDERED: LISINOPRIL 20 MG TAB PO SCH (09:00)
[2019-10-12] MEDS ORDERED: predniSONE 5 MG TAB PO SCH (09:00)
[2019-10-12] MEDS ORDERED: MONTELUKAST 10 MG TAB PO SCH (09:00)
[2019-10-12] MEDS: GABAPENTIN 300 MG CAP PO SCH ×2 (10:05→14:08)
--- NOTE | 2019-10-12 11:37 | DS ---
Consultants: Dr. Diop with General Surgery. Procedures: None. Admitting Diagnoses: 1.Small bowel obstruction, postoperative. 2.Chronic anticoagulation. 3.Diabetes mellitus type 2 without long-term use of insulin without complications. 4.Essential hypertension. 5.History of asthma. 6.Obstructive sleep apnea. Discharge Diagnoses: 1.High-grade small bowel obstruction likely postoperative, resolved. 2.Diabetes mellitus type 2 without long-term use of insulin without any complications. 3.Essential hypertension, stable. 4.History of asthma, stable. 5.Obstructive sleep apnea, on CPAP. 6.Mixed hyperlipidemia, on statin. 7.Atrial fibrillation. Eliquis on hold due to hematoma. 8.Hematoma on surgical site. 9.Morbid obesity. BMI of 44. Hospital Course: Patient is a 53-year-old female who had a recent ventral hernia repair 4 days prior to admission. Patient apparently had been taking multiple pain medications 3 times a day. She stat es she took her entire allotment for 6 days in half the time. Patient comes in with abdominal pain a nd vomiting. CT scan showed high-grade bowel obstruction with transition point. The patient's surge on, Dr. Diop was consulted. NG tube was inserted. Patient was decompressed. She did well with d ecompression. Her electrolytes were corrected including potassium. She was slowly started on a diet . She was not septic, did not have any elevated white count. CT scan of the abdomen also showed andrey e hematoma. Therefore, her blood thinners were held. Patient was then doing well. She passed gas a nd had bowel movements. Her NG tube was discontinued. She was slowly started on a soft diet, which she was able to tolerate. Patient also has some asymptomatic bacteriuria. Cultures are growing gram -negative rods. Patient was on Zosyn during the hospital stay. No need for further antibiotics for the asymptomatic bacteriuria. Patient was then cleared for discharge and was sent home in a stable c ondition. Activity: As tolerated. Medications: As per medication reconciliation list. Followup: Follow up with primary care physician in 1 week. Follow up with general surgeon, Dr. Daniel gross in 2 to 3 days. Return to ER for worsening condition. Hold blood thinners until cleared by Surg clyde for to resume. Diet: [place]. Activity: No driving or operating heavy machinery while on narcotics. Physical Examination: General: Awake, alert, oriented x3. Morbidly obese female. CV: S1, S2. Respiratory: Moving air well bilaterally. Abdomen: Abdomen is soft. Mild tenderness to palpation around incision site. No distention. Posit beckie bowel sounds. Extremities: No clubbing, cyanosis, edema. Neurologic: Nonfocal. Total time spent discharging the patient was 36 minutes. ZABRINA Voice ID: [id number] Report ID: [id number]
[2019-10-12 13:02] VITALS: BP 145/71; TEMP 97.3
[2019-10-12 15:09] VITALS: O2SAT 95
== END 2019-10-12 15:30 | disposition home or self-care (01) | DRG 389 ==
LOC: ER 22:42 → ERHOLD 10-10 02:44 → 2ND 10-10 03:29
PROVIDERS: ADMIT Internal Medicine; ATTEND Internal Medicine
DX: K91.30 Postprocedural intestinal obstruction, unspecified as to partial versus complete (principal); L76.32 Postprocedural hematoma of skin and subcutaneous tissue following other procedure; Z68.41 Body mass index [BMI] 40.0-44.9, adult; I10 Essential (primary) hypertension; G47.33 Obstructive sleep apnea (adult) (pediatric); E78.2 Mixed hyperlipidemia; I48.91 Unspecified atrial fibrillation; Z79.01 Long term (current) use of anticoagulants; E11.9 Type 2 diabetes mellitus without complications; E66.01 Morbid (severe) obesity due to excess calories; J45.909 Unspecified asthma, uncomplicated; Z96.651 Presence of right artificial knee joint
CPT/HCPCS: 36415; 74176; 74177; 76377; 80048; 80053; 80076; 81003; 81015; 82947; 83605; 83690; 83735; 84100; 84132; 85025; 85610; 86850; 86900; 86901; 87077; 87086; 87088; 87186; 94760; 96361; 96365; 96374; 96375; 99284; 99285; J1650; J2270; J2405; J2543; J7030; J7512; Q9967

== ENCOUNTER 2019-12-26 08:56 | Day surgery (SDC) | payer OTHER ==
--- OUTSIDE RECORDS SUMMARY | 2019-12-26 08:59 | XMS REPORT ---
:1965 [facility] Address [address] [place] [address] [address]. [address]u [address] [place] [address] Care Team Providers Name Role Phone Unavailable Unavailable Unavailable Problems This patient has no known problems. Allergies, Adverse Reactions, Alerts This patient has no known allergies or adverse reactions. Medications This patient has no known medications.
[2019-12-26] MEDS ORDERED: Ringers Lactate 1,000 ML IV ONE (09:03)
[2019-12-26] MEDS ORDERED: CEFAZOLIN/SWI 2gm 2 GM/20 ML SYR ONE (09:03)
--- OUTSIDE RECORDS SUMMARY | 2019-12-26 09:04 | XMS REPORT ---
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
--- OUTSIDE RECORDS SUMMARY | 2019-12-26 09:04 | XMS REPORT ---
[...] End Status Dosage System Date Date Celexa [facility] 28756775038 40 MG Orally Active 0.5 tablet Once a day Omeprazole [facility] 75121214729 40MG Active TAKE ONE CAPSULE BY MOUTH ONCE DAILY Combivent Respimat [facility] 56165449506 20-100 MCG/ACT Active 1 puff Inhalation Four times a day Flovent HFA [facility] 23972808126 110 MCG/ACT Active 1 puff Inhalation Twice a day Simvastatin ND 15220465294 20 MG Orally Active 1 tablet Once a day in the evening Norvasc [facility] 90219697257 5 MG Orally Active 1 tablet Once a day in PM Flovent Diskus [facility] 53343558817 100 MCG/BLIST Active 1 puff Inhalation Twice a day Ferrous Sulfate [facility] 56058999641 325 (65 Fe) MG Active 1 tablet Orally Once a day Dexilant [facility] 61326048847 60 MG Orally [place] Active 1 capsule Once a day 2017 Zanaflex [facility] 64808644508 4 MG Orally Active 1 tablet twice times a as needed day - [facility] 25882531833 81 MG Orally Active 1 tablet Once a day Omeprazole [facility] 06079488653 40 MG Orally Active 1 capsule Once a day Albuterol Sulfate [facility] 45704958166 (5 MG/ML) 0.5% Active 1 ml as Inhalation needed every 6 hrs Amoxicillin [facility] 66626245339 500 MG Orally Active 1 tablet every 8 hrs Estradiol [facility] 31032617806 0.1 MG/GM Dec 17, Active as Vaginal Two 2019 directed times a Week Doxycycline Hyclate [facility] 18977436352 100 MG Orally Active 1 capsule twice a day Singulair [facility] 66487327173 10 MG Orally Active 1 tablet Once a day in the evening Flonase [facility] 16341481570 50 MCG/ACT Active 1 spray in Nasally Once a each day nostril Zestoretic [facility] 90574580902 10-12.5 MG Active 1 tablet Orally Once a day Neurontin [facility] 31737468281 600 MG Orally Active 1 tablet Once a day Coreg [facility] 97723335596 25 MG Orally Active not defined Lisinopril [facility] 00801001384 20 MG Orally Dec 13, Active 1 tablet Once a day 2018 Hydrochlorothiazide [facility] 88961936890 25 MG Orally Active 1 tablet Once a day in the morning Potassium Chloride ER [facility] 38229256867 20 MEQ Orally Active 1 capsule Once a day with food Results No Known Results Summary Purpose eClinicalWorks Submission
--- OUTSIDE RECORDS SUMMARY | 2019-12-26 09:04 | XMS REPORT ---
[...] Medications Results No Known Results Summary Purpose [employer] Submission
--- OUTSIDE RECORDS SUMMARY | 2019-12-26 09:04 | XMS REPORT ---
[...] Start End Status Dosage System Date Date [facility] 72332949197 5-325 MG Active 1 tablet Orally every 6 as needed hrs Albuterol Sulfate [facility] 48244823383 (5 MG/ML) 0.5% Active 1 ml as Inhalation needed every 6 hrs [address] [facility] 28797248577 50 MCG/ACT Active 1 spray in Nasally Once a each day nostril Estradiol [facility] 74817933031 0.1 MG/GM Dec 17, Active as Vaginal Two 2019 directed times a Week Dexilant [facility] 82436279430 60 MG Orally February Active 1 capsule Once a day [address] [facility] 77583543644 40MG Active TAKE ONE CAPSULE BY MOUTH ONCE DAILY Zestoretic [facility] 54346160396 10-12.5 MG Active 1 tablet Orally Once a day Ferrous Sulfate [facility] 50385107468 325 (65 Fe) MG Active 1 tablet Orally Once a day Singulair [facility] 41637522689 10 MG Orally Active 1 tablet Once a day in the evening Doxycycline Hyclate [facility] 72036353188 100 MG Orally Active 1 capsule twice a day Norvasc [facility] 61069828312 5 MG Orally Active 2 tablet Once a day Hydrochlorothiazide [facility] 11607136084 25 MG Orally Active 1 tablet Once a day in the morning Potassium Chloride ER [facility] 58686117378 10MEQ ER Active TAKE ONE TABLET BY MOUTH ONCE DAILY Simvastatin [facility] 60019706863 20MG Active TAKE ONE TABLET BY MOUTH ONCE DAILY Combivent ND 0 Active not defined Flovent Diskus [facility] 13485277448 100 MCG/BLIST Active 1 puff Inhalation Twice a day Aspir-[address] [facility] 08807995189 81 MG Orally Active 1 tablet Once a day Klor-Con M10 [facility] 45216689206 10 MEQ Orally Active 1 tablet Twice a day with food Celexa ND 82389017017 40 MG Orally Active 0.5 tablet Once a day Omeprazole ND 99738653990 40 MG Orally Active 1 capsule Once a day Potassium Chloride ER ND 25124277205 20 MEQ Orally Active 1 capsule Once a day with food Zanaflex [facility] 59708921578 4 MG Orally Active 1 tablet twice times a as needed day Lisinopril [facility] 57677006117 20 MG Orally Dec 13, Active 1 tablet Once a day 2018 Flovent HFA [facility] 28169970765 110 MCG/ACT Active 1 puff Inhalation Twice a day Neurontin ND 81433353752 600 MG Orally Active 1 tablet Once a day Combivent Respimat [facility] 91727889188 20-100 MCG/ACT Active 1 puff Inhalation Four times a day Simvastatin ND 29857112708 20 MG Orally Active 1 tablet Once a day in the evening Amoxicillin [facility] 47999652699 500 MG Orally Active 1 tablet every 8 hrs Bactrim DS [facility] 19143712740 800-160 MG Jul Active 1 tablet Orally Twice a [address] [facility] 66953233470 25 MG Orally Active not defined Results No Known Results Immunizations Vaccine Administration Date Afluria single dose Aug 21, 2019 Summary Purpose eClinicalWorks Submission
--- OUTSIDE RECORDS SUMMARY | 2019-12-26 09:05 | XMS REPORT ---
:1965 Author Organization eClinicalWorks Care Team Providers Name Role Phone Shabazz, Na Provider Role Unavailable Allergies No Known Allergies Problems Problem Type Condition Code Onset Dates Condition Status Assessment Hyperlipidemia E78.5 Active Problem HTN (hypertension) I10 Active Problem [...] Problem Abscess of vagina N76.0 Active Assessment Hypokalemia E87.6 Active Problem Asthma, unspecified asthma J45.909 Active severity, unspecified whether complicated, unspecified whether persistent Assessment Diabetes mellitus type 2 in E11.9 Active nonobese Problem Lump R22.9 Active Problem Paroxysmal atrial fibrillation I48.0 Active Assessment Abscess of vagina N76.0 Active Problem Chronic depressive person F34.1 Active Problem 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
--- OUTSIDE RECORDS SUMMARY | 2019-12-26 09:05 | XMS REPORT ---
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 77293194547 20 MG Orally Active 1 tablet Once a day in the evening Singulair [facility] 39784493843 10 MG Orally Active 1 tablet Once a day Hydrochlorothiazide ND 48726380871 25 MG Orally Inactive 1 tablet Once a day in the morning Flovent HFA [facility] 35846879472 110 MCG/ACT Active 1 puff Inhalation Twice a day -81 [facility] 74659870475 81 MG Orally Active 1 tablet Once a day Omeprazole [facility] 82837954641 40MG Active TAKE ONE CAPSULE BY MOUTH ONCE DAILY Combivent Respimat [facility] 80605357851 20-100 MCG/ACT Active 1 puff Inhalation Four times a day Potassium Chloride ER [facility] 15763321166 20 MEQ Orally Active 1 capsule Once a day with food Neurontin [facility] 07525696962 600 MG Orally Active 1 tablet Once a day Albuterol Sulfate [facility] 57037321672 (5 MG/ML) 0.5% Active 1 ml as Inhalation needed every 6 hrs Bactrim DS [facility] 79103079821 800-160 MG Nov 17Nov Active 1 tablet Orally Twice a 2018 Doxycycline Hyclate [facility] 28330698125 100 MG Orally Keegan Active 1 capsule twice a day 2019 ProAir HFA [facility] 41990910796 108 (90 Base) Active 2 puffs MCG/ACT as needed Inhalation every 6 hrs Coreg ND 84925020554 25 MG Orally Active not defined Flovent Diskus ND 55500125779 100 MCG/BLIST Active 1 puff Inhalation Twice a day Estradiol ND 52287485491 0.1 MG/GM Dec 17, Active as Vaginal Two 2019 directed times a Week Norvasc [facility] 78867814655 5 MG Orally Active 1 tablet Once a day in PM Zestoretic [facility] 79279597114 10-12.5 MG Active 1 tablet Orally Once a day Ferrous Sulfate [facility] 81431486926 325 (65 Fe) MG Active 1 tablet Orally Once a day Results No Known Results Summary Purpose eClinicalWorks Submission
[2019-12-26] MEDS ORDERED: LIDOCAINE 1% MPF 5 ML VIAL ONE (09:51)
[2019-12-26] MEDS ORDERED: propofoL 200 MG/20 ML VIAL IV ONE (09:51)
[2019-12-26] MEDS ORDERED: MIDAZOLAM HCL 2 MG/2 ML INJ ONE (09:51)
[2019-12-26] MEDS ORDERED: FENTANYL CITR 100 MCG/2 ML ONE (09:51)
[2019-12-26] MEDS ORDERED: BUPIVACA 0.5%/EPI 0.0005%/PF 10 ML VIAL ONE (10:13)
[2019-12-26] MEDS ORDERED: KETOROLAC 30 MG/ML INJ ONE (10:54)
[2019-12-26] MEDS ORDERED: ONDANSETRON 4 MG/2 ML VIAL ONE (10:55)
--- NOTE | 2019-12-26 11:02 | P.OP ---
Preoperative diagnosis: Posterior Neck Infected Sebaceous Cyst Postoperative diagnosis: Posterior Neck Infected Sebaceous Cyst Primary procedure: Excisional Debriedement of Posterior Neck Infected Sebaceous Cyst Secondary procedure: Application of amniotic tissue graft Anesthesia: GETA + Local Estimated blood loss: <2cc Specimen: Cultures and tissue sent Findings: Posterior Neck Infected Sebaceous Cyst Complications: None Implants: Amniofill Transferred to: Recovery Room Condition: Good
[2019-12-26] MEDS: HYDROMORPHONE HCL 1 MG/ML INJ ONE ×4 (11:26→11:42)
[2019-12-26] MEDS ORDERED: HYDROCODONE/APAP 10/325 TAB ONE (12:11)
[2019-12-26 12:18] VITALS: BP 110/64; TEMP 97.5; O2SAT 99
--- NOTE | 2019-12-26 22:00 | OP ---
Date of Procedure: 12/26/2019 Surgeon: Anthony Diop MD Preoperative Diagnosis: Posterior neck infected sebaceous cyst. Postoperative Diagnosis: Posterior neck infected sebaceous cyst. Procedure Performed: 1. Excisional debridement of posterior neck infected sebaceous cyst. 2. Application of amniotic tissue graft. Anesthesia: General endotracheal plus local 0.5% Marcaine with epinephrine. Estimated Blood Loss: 10 mL. Specimen: Cultures sent and tissues sent for examination. Findings: Posterior neck infected sebaceous cyst. Complications: None. Implant: AmnioFill. Disposition: Transferred to recovery room in good condition. Procedure In Detail: After informed was obtained, patient was brought to the operating room, prepped and draped in the usual sterile fashion after adequate anesthesia was achieved. Elliptical area of the posterior neck was anesthetized appropriately with 0.5% Marcaine with epinephrine. An elliptical incision was taken down through an obviously enlarged area of infected sebaceous cyst down to subcutaneous tissues. Dissection continued down using electrocautery to circumferential area of approximately 5 x 4 x 3 cm in depth. Infectious versus sebaceous cyst was encountered. This was cultured at this time for both aerobic and anaerobic speciation. The specimens then sent off for pathologic examination. The extension was only into subcutaneous fat. The area was copiously irrigated multiple times until completely clear. Hemostasis was achieved with electrocautery. The AmnioFill was then prepared, hydrated appropriately, and applied as a thin layer to the entire cut surfaces. The skin was then closed using an interrupted 2-0 nylon vertical mattress type sutures with good approximation of tissues. A sterile dressing was placed over the top. The patient tolerated the procedure well without evidence of complication and transferred in good condition. All counts were correct at the end of the case. RODNEY/ALISE Voice ID: [id number] Report ID: [id number] TIA
== END 2019-12-26 12:47 | disposition home or self-care (01) ==
LOC: OR 08:56
PROVIDERS: ATTEND Surgery
PROC: 0HR4XK3 Replacement of Neck Skin with Nonautologous Tissue Substitute, Full Thickness, External Approach (ICD-10-PCS; 2019-12-26)
PROC: 0JB40ZZ Excision of Right Neck Subcutaneous Tissue and Fascia, Open Approach (ICD-10-PCS; principal; 2019-12-26 10:15)
DX: L72.3 Sebaceous cyst (principal); E11.9 Type 2 diabetes mellitus without complications; I10 Essential (primary) hypertension; G47.33 Obstructive sleep apnea (adult) (pediatric); J45.909 Unspecified asthma, uncomplicated; K21.9 Gastro-esophageal reflux disease without esophagitis; E66.01 Morbid (severe) obesity due to excess calories; Z68.41 Body mass index [BMI] 40.0-44.9, adult
CPT/HCPCS: 87070; 36415; 87205; 84132; 82947; 88304; 87075; 87077; 87186; 11042; 17999; J2704; J2250; J3010; J1170 ×2; J0690; J7120; J2405

== ENCOUNTER 2020-08-03 15:21 | Emergency (ER) | payer OTHER ==
--- OUTSIDE RECORDS SUMMARY | 2020-08-03 15:25 | XMS REPORT ---
:1965 Author Organization eClinicalWorks Care Team Providers Name Role Phone Shabazz, Na Provider Role Unavailable Allergies No Known Allergies Problems Problem Type Condition Code Onset Dates Condition Statu s Problem HTN (hypertension) I10 Active Problem Morbid obesity E66.01 Active Problem Edema R60.9 Active Problem Peripheral neuropathy G62.9 Active Problem Anemia D64.9 Active Problem GERD (gastroesophageal reflux K21.9 Active disease) Problem Hyperlipidemia E78.5 Active Problem Osteoarthritis M19.90 Active Problem Obstructive sleep apnea G47.33 Acti ve Problem Nicotine dependence F17.200 Active Problem Morbid (severe) obesity due to E66.01 Active excess calories Problem Body mass index (BMI) of 45.0-49.9 Z68.42 Active in adult Problem Diabetes mellitus type 2 in E11.9 Active nonobese Problem Thrombocytopenia D69.6 Active Problem 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 Problem Cigarette nicotine dependence F17.210 Active without complication Problem Gingivitis K05.10 Active Problem Seasonal allergic rhinitis, J30.2 Active unspecified trigger Problem Lump R22.9 Active Problem Paroxysmal atrial fibrillation I48.0 Active Problem Decreased mobility R26.89 Active Problem Osteoarthrosis, localized, M17.5 A ctive secondary, involving lower leg Problem Controlled type 2 diabetes mellitus E11.9 Active without complication, without long-term current use of insulin Problem Abscess of vagina N76.0 Active Problem Stress incontinence N39.3 Active Problem Hypotension due to drugs I95.2 Act beckie Problem Asthma, unspecified asthma J45.909 A ctive severity, unspecified whether complicated, unspecified whether persistent Problem Acquired torticollis M43.6 Active Problem H/O TIA (transient ischemic attack) Z86.73 Active and stroke Problem Chronic depressive person F34.1 Ac tive Problem Cervical radiculopathy M54.12 Activ e Problem Facial pain R51 Active Problem Gastroesophageal reflux disease K21.9 Active without esophagitis Problem Atypical chest pain R07.89 Active Medications No Known Medications Results No Known Results Summary Purpose eClinicalWorks Submission
--- OUTSIDE RECORDS SUMMARY | 2020-08-03 15:26 | XMS REPORT ---
[...] Problem Atypical chest pain R07.89 Active Medications Medication Code Code Instructions Start End Status Dosage System Date Date Neurontin [facility] 37621574671 600 MG Orally Active 1 ta blet Once a day Estradiol ND 98011286722 0.1 MG/GM Dec 17, Active as direc carlos Vaginal Two 2019 times a Week Methocarbamol [facility] 35722157297 500 MG Orally June 14May Active 1 tablet every 8 hrs prn 2019, muscle 2019 tightness ProAir HFA [facility] 07301252585 108 (90 Base) Active 2 p uffs as MCG/ACT needed Inhalation every 6 hrs Ferrous Sulfate [facility] 25771752109 325 (65 Fe) MG Activ e 1 tablet Orally Once a day Furosemide [facility] 69551277395 40 MG Active TAKE 1 TABLET BY MOUTH EVERY DAY NEEDED FOR SWELLING Albuterol [facility] 43757115444 (5 MG/ML) 0.5% Active 1 m l as Sulfate Inhalation needed every 6 hrs Omeprazole [facility] 36347665802 40 MG Orally Active 1 ca psule Once a day Singulair [facility] 29223268905 10 MG Orally Active 1 tab let Once a day Coreg [facility] 76011805134 25 MG Orally Active not def ined Potassium [facility] 41633169617 20 MEQ Orally Active 1 ca psule Chloride ER Once a day with food Aspir-81 [facility] 55568448824 81 MG Orally Active 1 tabl et Once a day Flovent Diskus [facility] 75360590102 100 MCG/BLIST Active 1 puff Inhalation Twice a day Zestoretic [facility] 71087074031 20-12.5 MG Active 1 tabl et Orally twice a day Simvastatin [facility] 67280066016 20 MG Orally Active 1 t ablet in Once a day the evening Combivent [facility] 22172008452 20-100 MCG/ACT Active 1 p uff Respimat Inhalation Four times a day Flovent HFA [facility] 98968429967 110 MCG/ACT Active 1 pu ff Inhalation Twice a day Norvasc [facility] 02313577144 5 MG Orally Active 1 tablet Once a day in PM Results No Known Results Summary Purpose eClinicalWorks Submission
--- OUTSIDE RECORDS SUMMARY | 2020-08-03 15:26 | XMS REPORT ---
:1965 Author Organization eClinicalWorks Care Team Providers Name Role Phone Shabazz, Na Provider Role Unavailable Allergies, Adverse Reactions, Alerts Substance Reaction Event Type N.K.D.A. Info Not Available Non Drug Allergy Problems Problem Type Condition Code Onset Dates Condition Statu s Problem Edema R60.9 Active Problem Peripheral neuropathy G62.9 Active Problem GERD (gastroesophageal reflux K21.9 Active disease) Problem Anemia D64.9 Active Problem Hyperlipidemia E78.5 Active Problem Osteoarthritis M19.90 Active Problem Obstructive sleep apnea G47.33 Acti ve Problem Nicotine dependence F17.200 Active Problem Diabetes mellitus type 2 in E11.9 Active nonobese Problem Osteoarthrosis, localized, M17.5 A ctive secondary, involving lower leg Problem Paroxysmal atrial fibrillation I48.0 Active Problem Chronic depressive person F34.1 Ac tive Problem H/O TIA (transient ischemic attack) Z86.73 Active and stroke Problem Lump R22.9 Active Problem Gastroesophageal reflux disease K21.9 Active without esophagitis Problem Atypical chest pain R07.89 Active Problem Asthma, unspecified asthma J45.909 A ctive severity, unspecified whether complicated, unspecified whether persistent Problem Acquired torticollis M43.6 Active Problem Morbid (severe) obesity due to E66.01 Active excess calories Problem Body mass index (BMI) of 45.0-49.9 Z68.42 Active in adult Problem Cervical radiculopathy M54.12 Activ e Problem Facial pain R51 Active Assessment Morbid (severe) obesity due to E66.01 Active excess calories Assessment Decreased mobility R26.89 Active Assessment Nicotine abuse Z72.0 Active Assessment Seasonal allergic rhinitis, J30.2 Active unspecified trigger Assessment Thrombocytopenia D69.6 Active Problem Thrombocytopenia D69.6 Active Assessment Body mass index (BMI) of 45.0-49.9 Z68.42 Active in adult Problem Cigarette nicotine dependence F17.210 Active without complication Problem 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 Problem Controlled type 2 diabetes mellitus E11.9 Active without complication, without long-term current use of insulin Problem Abscess of vagina N76.0 Active Problem Elevated blood pressure reading I10 Active with diagnosis of hypertension Problem Decreased mobility R26.89 Active Problem Acute right-sided low back pain M54.5 Active without sciatica Assessment Hyperlipidemia E78.5 Active Problem Stress incontinence N39.3 Active Assessment Bilateral edema of lower extremity R60.0 Active Problem Hypotension due to drugs I95.2 Act beckie Assessment Paroxysmal atrial fibrillation I48.0 Active Problem Gingivitis K05.10 Active Assessment Osteoarthritis M19.90 Active Problem Seasonal allergic rhinitis, J30.2 Active unspecified trigger Assessment Hypokalemia E87.6 Active Problem Morbid obesity E66.01 Active Problem HTN (hypertension) I10 Active Assessment Controlled type 2 diabetes mellitus E11.9 Active without complication, without long-term current use of insulin Assessment Acute right-sided low back pain M54.5 Active without sciatica Assessment Elevated blood pressure reading I10 Active with diagnosis of hypertension Medications Medication Code Code Instructions Start End Status Dosage System Date Date Albuterol [facility] 32732724069 (5 MG/ML) 0.5% Active 1 m l as Sulfate Inhalation needed every 6 hrs Flovent Diskus [facility] 13596312748 100 MCG/BLIST Active 1 puff Inhalation Twice a day Coreg [facility] 20842260736 25 MG Orally Active not def ined Flovent HFA [facility] 65331122513 110 MCG/ACT Active 1 pu ff Inhalation Twice a day Furosemide [facility] 93786188286 40 MG Active TAKE 1 TABLET BY MOUTH EVERY DAY NEEDED FOR SWELLING Zestoretic [facility] 14279676384 10-12.5 MG Active 1 tabl et Orally Once a day Aspir-81 [facility] 35384122343 81 MG Orally Active 1 tabl et Once a day ProAir HFA [facility] 88298509658 108 (90 Base) Active 2 p uffs as MCG/ACT needed Inhalation every 6 hrs Simvastatin [facility] 99852890620 20 MG Orally Active 1 t ablet in Once a day the evening Combivent [facility] 31272916927 20-100 MCG/ACT Active 1 p uff Respimat Inhalation Four times a day Neurontin [facility] 66610352552 600 MG Orally Active 1 ta blet Once a day Singulair [facility] 35083109240 10 MG Orally Active 1 tab let Once a day Omeprazole [facility] 01385276237 40 MG Orally Active 1 ca psule Once a day Norvasc [facility] 18238958318 5 MG Orally Active 1 tablet Once a day in PM Estradiol [facility] 04909862420 0.1 MG/GM Dec 17, Active as direc carlos Vaginal Two 2019 times a Week Potassium [facility] 85045110444 20 MEQ Orally Active 1 ca psule Chloride ER Once a day with food Ferrous Sulfate [facility] 94166856855 325 (65 Fe) MG Activ e 1 tablet Orally Once a day Singulair [facility] 67351774398 10 MG Orally Active 1 tab let Once a day Results Name Result Date Reference Range Unit Abnormali ty Flag URINALYSIS AUTO W/O SCOPE (43574) ----NIKKY neg 20200705 ----NIT neg 20200705 ----PROTEIN neg 20200705 ----pH 6.0 20200705 ----GLUCOSE neg 20200705 ----KETONES neg 20200705 ----SPECIFIC GRAVITY 1.025 20200705 ----BLO trace-intact 20200705 Summary Purpose eClinicalWorks Submission
--- OUTSIDE RECORDS SUMMARY | 2020-08-03 15:27 | XMS REPORT | Summary of Care ---
:1965 Author Organization [facility] Address [address] [place] [address] Care Team Providers Name Role Phone Anna Phan Primary Care Provider Reason for Visit Reason Comments Results Encounter Details Date Type Department Care Team Description 07/02/2020 Telephone [facility] Peng Glez MD Results Neurology-[address] [place] [id number] [address] [place] [address] [phone] Allergies No Known Allergiesdocumented as of this encounter (statuses as of 07/09/2020) Medications Medication Sig Dispensed Refills Start Date End Date Status albuterol-ipratropium Inhale 4 0 Active (COMBIVENT INHALER) 18-103 (four) times mcg/actuation inhaler daily. FLUTICASONE PROPIONATE Inhale 2 0 Active (FLOVENT ROTADISK INHALE) Puffs as needed. Gabapentin, Bulk, 100 % 600 mg 3 0 Active Powd (three) times daily. amLODIPine (NORVASC) 5 mg Take 5 mg by 0 Active tablet mouth daily. propranolol (INDERAL) 40 mg Take 40 mg by 0 Active tablet mouth daily. aspirin 81 mg chewable Take 81 mg by 0 Active tablet mouth daily. amitriptyline (ELAVIL) 10 Take 10 mg by 0 Active mg tablet mouth at bedtime. simvastatin (ZOCOR) 20 mg Take 20 mg by 0 Active tablet mouth at bedtime. hydrochlorothiazide Take 1 Tab by 60 Tab 2 05/30/2013 Active (ESIDRIX) 25 mg tablet mouth 2 (two) times daily. Additional Information Patient taking differently: 50 mg Oral DAILY, Reported on 04/27/2016 10:55 AM docusate calcium (SURFAK) 240 Take 1 Cap by mouth 2 60 Cap 0 05/30/2013 Active mg capsule (two) times daily. VOLTAREN 1 % gel Apply 1 Dose to 0 03/08/2016 Active area(s) every evening. losartan (COZAAR) 100 mg tablet Take 100 mg by mouth 0 03/08/2016 Active daily. potassium chloride (K-DUR) 10 Take 10 mEq by mouth 0 03/08/2016 Active mEq CR tablet daily. tiZANidine (ZANAFLEX) 4 mg Take 4 mg by mouth 2 0 Active tablet (two) times daily. CARVEDILOL ORAL Take 25 mg by mouth 2 0 Active (two) times daily. ferrous sulfate 325 mg (65 mg Take 325 mg by mouth 0 Active iron) tablet daily. clindamycin (CLEOCIN) 150 mg TAKE 2 CAPSULES BY 0 Active capsule MOUTH EVERY 8 HOURS ( 3 TIMES A DAY) TAKE WITH FOOD AND DRINK PLENTY OF WATER ibuprofen (MOTRIN) 800 mg 0 09/18/2016 Active tablet phenazopyridine (PYRIDIUM) 100 Take 2 tablets by 30 tablet 3 0 07/05/2017 Active mg tablet mouth 3 (three) times daily as needed (bladder pain). levoFLOXacin 500 mg tablet 0 09/24/2017 Active lidocaine 5 % ointment 0 09/11/2017 Active penicillin v potassium 500 mg 0 09/24/2017 Active tablet APIXABAN (ELIQUIS ORAL) Take by mouth. 0 Active fluticasone-vilanterol (BREO Inhale. 0 Active ELLIPTA) 100-25 mcg/dose DsDv methylPREDNISolone (MEDROL, Take by mouth 21 Each 0 019 Active TIOMTHY,) 4 mg tabletsIndications: SEE-INSTRUCTIONS. Acute pain of left shoulder follow package directions cyclobenzaprine 10 mg Take 1 tablet by mouth 30 tablet 0 07/10 Active tabletIndications: Acute pain 3 (three) times daily. of left shoulder diazePAM 5 mg Take 1 tablet by mouth 2 tablet 0 05/28/2020 Active tabletIndications: Trigeminal 2 (two) times daily. 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 Essential hypertension 01/21/2013 Overview: ICD10 Diagnosis Term 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 Type 2 diabetes mellitus without complications 013 Overview: ICD10 Diagnosis Term 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 Excessive or frequent menstruation 01/21/2013 Fibroids 01/21/2013 documented as of this encounter (statuses as of 07/09/2020) Immunizations Name Administration Dates Next Due Pneumococcal Polysaccharide, PPSV23 (PNEUMOVAX) 06/06/2013 documented as of this encounter Social History Tobacco Use Types Packs/Day Years Used Date Current Every Day Smoker Cigarettes 1 20 Smokeless Tobacco: Never Used Alcohol Use Drinks/Week oz/Week Comments No 0 Standard drinks or equivalent 0.0 Sex Assigned at Date Recorded Not on file documented as of this encounter Last Filed Vital Signs Not on filedocumented in this encounter Miscellaneous Notes Telephone Encounter - Gauri Maddox LVN - 07/09/2020 1:44 PM CDTSpoke to patient and gave test results per Dr. Glez. Patient verbalized understanding. Telephone Encounter - Peng Glez MD - 07/07/2020 2:42 PM CDTYes she can have those results. The trigeminal nerve can be difficult to visualize even on MRI so isnot unusual if they are not well captured. If there is a tumor or something in that area, however abnormalities like that would be easier to see. Telephone Encounter - Gauri Maddox LVN - 07/05/2020 10:34 AM CDTDrJosr Glez, Patient is calling requesting MRI Results. Would you like me to give results? Please review and advise. IMPRESSION No acute intracranial abnormality. Trigeminal nerves are not clearly visualized due to artifact in the region. The IAC, CP angles and facial nerves are unremarkable. Telephone Encounter - Ari Sawant - 07/02/2020 1:18 PM CDTAlkirk Michael is a 54 year old female is requesting call back regarding test results,Please contact at [phone] (home) documented in this encounter Plan of Treatment Health Maintenance Due Date Last Done Comments EYE EXAM 1973 LDL-C 1973 URINE MICROALBUMIN 1973 Depression Screening 1975 FOOT EXAM 1981 DTaP,Tdap,and Td Vaccines (1 - 1982 Tdap) Breast Cancer Screening 03/31/2010 03/31/2009 (MAMMOGRAM) COLON CANCER SCREENING ANNUAL 2013 FIT/FOBT COLON CANCER SCREENING FIT DNA 2013 EVERY 3 YEARS COLON CANCER SCREENING 2013 SIGMOIDOSCOPY EVERY 5 YEARS COLONOSCOPY 2013 Colorectal Cancer Screening 2013 Zoster Recombinant Vaccine 2013 (SHINGRIX) (1 of 2) PAP SMEAR 01/21/2016 01/21/2013, 04/09/2012, 01/06/2009, Additional history exists CREATININE (SERUM) 05/04/2017 05/04/2016, 05/03/2016, 05/02/2016, Additional history exists LUNG CANCER SCREEN: Recommended 2018 for age 55-80 with 30 + pack year history HgA1C 02/16/2019 08/19/2018, 06/18/2018, 01/21/2013, Additional history exists INFLUENZA VACCINE (#1) 2020 HEPATITIS C (HCV) SCREEN Completed 12/14/2005 PNEUMOCOCCAL 0-64 YEARS COMBINED Completed 06/06/2013 SERIES documented as of this encounter Implants Implanted Type Area Early Years Teacher Device Shelf Model / Serial Identifier Expiration / Lot Date Cement CEMENT Right: Darrick 05/25/2019 [id number] / Implanted: Qty: 1 on 05/01/2016 by Balwinder Donohue MD at [facility] Knee 8 [id number] / [id number] Trevor Quigley Standard Patella KNEE Right: Biomet 11/27 [id number] / Implanted: Qty: 1 on 05/01/2016 by Balwinder Donohue MD at [facility] Knee [id number] / [id number] Cr Tibial Bearing KNEE Right: Biomet 12/27/2020 1 [id number] / Implanted: Qty: 1 on 05/01/2016 by Balwinder Donohue MD at [facility] Knee 8 [id number] / [id number] Modular Finned Stem KNEE Right: Biomet 01/13/2026 [id number] / Implanted: Qty: 1 on 05/01/2016 by Balwinder Donohue MD at [facility] Knee 1 [id number] / [id number] Regenerex Primary Tibial Tray KNEE Right: Biomet 12/08/2025 [id number] / Implanted: Qty: 1 on 05/01/2016 by Balwinder Donohue MD at [facility] Knee 2 [id number] / [id number] Cr Femoral - Righ KNEE Right: Biomet 02/21/2026 1 [id number] / Implanted: Qty: 1 on 05/01/2016 by Balwinder Donohue MD at [facility] Knee 4 [id number] / [id number] documented as of this encounter Results Not on filedocumented in this encounter Insurance Payer Benefit Plan / Subscriber ID Effective Dates Phone Addre ss Type Group [facility] [id number] 2015-Present Medicaid COMM PLAN - PLUS MANAGED MEDICAID documented as of this encounter Advance Directives Type Date Recorded 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
--- OUTSIDE RECORDS SUMMARY | 2020-08-03 15:27 | XMS REPORT ---
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 Problem Controlled type 2 diabetes mellitus E11.9 Active without complication, without long-term current use of insulin Problem Abscess of vagina N76.0 Active Problem Elevated blood pressure reading I10 Active with diagnosis of hypertension Problem Decreased mobility R26.89 Active Problem Chronic depressive person F34.1 Ac tive Problem H/O TIA (transient ischemic attack) Z86.73 Active and stroke Problem Acute right-sided low back pain M54.5 Active without sciatica Problem Lump R22.9 Active Problem Stress incontinence N39.3 Active Problem Hypotension due to drugs I95.2 Act beckie Problem Gingivitis K05.10 Active Problem Seasonal allergic rhinitis, J30.2 Active unspecified trigger Problem Morbid obesity E66.01 Active Problem Gastroesophageal reflux disease K21.9 Active without esophagitis Problem HTN (hypertension) I10 Active Problem Atypical chest pain R07.89 Active Assessment Hypokalemia E87.6 Active Problem Asthma, unspecified asthma J45.909 A ctive severity, unspecified whether complicated, unspecified whether persistent Problem Acquired torticollis M43.6 Active Problem Morbid (severe) obesity due to E66.01 Active excess calories Problem Body mass index (BMI) of 45.0-49.9 Z68.42 Active in adult Problem Cervical radiculopathy M54.12 Activ e Problem Facial pain R51 Active Medications Medication Code Code Instructions Start End Status Dosage System Date Date Potassium [facility] 91462290004 20 MEQ Orally Active 1 ca psule Chloride ER Once a day with food Tizanidine HCl [facility] 56704847723 2 MG Orally at Jul 06Jul Active 1 capsule bedtime 2020 08, as needed 2019 Results No Known Results Summary Purpose eClinicalWorks Submission
--- OUTSIDE RECORDS SUMMARY | 2020-08-03 15:27 | XMS REPORT | Continuity of Care Document ---
:1965 Author Organization [facility] t Address [address] [place] [address] Care Team Providers Name Role Phone Newton MARTINEZ, Gene Attending Clinician Doctor Unassigned, Name Attending Clinician Unavailable Nguyễn MARTINEZ, L Attending Clinician Problems Condition Condition Condition Status Onset Resolution Last Treating Co mments Source Name Details Category Date Date Treatment Clinician Date HTN HTN Problem Active [facility] (hypertens (hypertens Melba kes - ion) ion) [facility] Abscess of Abscess of Problem Active [facility] vagina vagina [facility] Obstructiv Obstructiv Problem Active [facility] e sleep e sleep [facility] apnea apnea [facility] Osteoarthr Osteoarthr Problem Active [facility] itis itis [facility] Nicotine Nicotine Problem Active [facility] dependence dependence [facility] - [facility] Chronic Chronic Problem Active [facility] depressive depressive [facility] - person person [facility] Lump Lump Problem Active [facility] Acquired Acquired Problem Active [facility] torticolli torticolli [facility] - s s [facility] H/O TIA H/O TIA Problem Active [facility] (transient (transient Melba kes - ischemic ischemic Memori a attack) attack) l and stroke and stroke Ou tpati ent Clinics Atypical Atypical Problem [facility] chest pain chest pain [facility] - [facility] Cervical Cervical Problem Active [facility] radiculopa radiculopa [facility] - thy thy [facility] l Outpati ent Clinics Gastroesop Gastroesop Problem Active [facility] hageal hageal [facility] - reflux reflux Memoria disease disease l without without Outpati esophagiti esophagiti en t s s Clinics Cigarette Cigarette Problem Active [facility] nicotine nicotine [facility] - dependence dependence Me moria without without l complicati complicati Ou tpati on on ent Clinics Peripheral Peripheral Problem Active [facility] neuropathy neuropathy [facility] - [facility] ent Clinics 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 [facility] - staphyloco staphyloco Me moria ccal ccal l abscesses abscesses Outp ati ent Clinics Morbid Morbid Problem Active [facility] (severe) (severe) [facility] - obesity obesity Memoria due to due to l excess excess Outpati calories calories ent Clinics Facial Facial Problem Active [facility] pain pain [facility] Body mass Body mass Problem Active [facility] index index [facility] - (BMI) of (BMI) of Memori a 45.0-49.9 45.0-49.9 l in adult in adult Outpat i ent Clinics Thrombocyt Thrombocyt Problem Active [facility] openia openia [facility] Hyperlipid Hyperlipid Problem Active [facility] emia emia [facility] Edema Edema Problem Active [facility] Anemia Anemia Problem Active [facility] Paroxysmal Paroxysmal Problem Active [facility] atrial atrial [facility] - fibrillati fibrillati Me moria on on l Outpati ent Clinics Asthma, Asthma, Problem Active [facility] unspecifie unspecifie Melba kes - d asthma d asthma Memori a severity, severity, l unspecifie unspecifie Ou tpati d whether d whether ent complicate complicate Cl inics d, d, unspecifie unspecifie d whether d whether persistent persistent Controlled Controlled Problem Active [facility] type 2 type 2 [facility] - diabetes diabetes Memori a mellitus mellitus l without without Outpati complicati complicati en t on, on, Clinics without without long-term long-term current current use of use of insulin insulin Osteoarthr Osteoarthr Problem Active [facility] osis, osis, [facility] - localized, localized, Me moria secondary, secondary, l involving involving Outp ati lower leg lower leg ent Clinics Stress Stress Problem Active [facility] incontinen incontinen Melba kes - ce ce [facility] Hypotensio Hypotensio Problem Active [facility] n due to n due to [facility] - drugs drugs [facility] Seasonal Seasonal Problem Active [facility] allergic allergic [facility] - rhinitis, rhinitis, Garrett janet unspecifie unspecifie l d trigger d trigger Outp ati ent Clinics Gingivitis Gingivitis Problem [facility] Decreased Decreased Problem Active [facility] mobility mobility [facility] ent Clinics Acute Acute Problem Active [facility] right-side right-side Melba kes - d low back d low back Me moria pain pain l without without [facility] sciatica sciatica ent Clinics Hypokalemi Hypokalemi Diagnosis Active [facility] Allergies, Adverse Reactions, Alerts This patient has no known allergies or adverse reactions. Medications Ordered Filled Start Stop Current Ordering Indication Dosage Frequency Signature Comments Components Source Medication Medication Date Date Medication? Clinician (SIG) Name Name Tizanidine Tizanidine 2020- Yes Na Shabazz [address] [facility] HCl HCl 07-06 as needed [facility] 00:[facility]: 00:00 Memoria 00 :00 [facility] Potassium Potassium Yes Na Shabazz [address] [facility] Chloride ER Chloride ER with food [facility] Immunizations Ordered Filled Immunization Date Status Comments Sour e Immunization Name Name Afluria single dose Afluria single dose 2019-08-[address] [facility] - 00[facility]00 [facility] Procedures This patient has no known procedures. Encounters Start End Encounter Admission Attending Care Care Encounter Source Date/Time Date/Time Type Type Clinicians Facility Department ID 2020-07-06 2020-07-06 Outpatient Kofi Souza [id number] [facility] 11:42:00 11:42:00 t Wu Wu [facility] Medicine Medicine [facility] ent [facility] 2020-07-05 2020-07-05 Outpatient Kofi Kirbyt [id number] [address] 10:00:00 10:00:00 [employer] [facility] Medicine [facility] ent Clinics 2020-07-02 2020-07-02 Telephone [facility] [id number] 00:00:00 00:00:00 Peng Barrera [id number] [place] [id number] Professio [phone] nal 2 [facility] 2020-06-14 2020-06-14 [facility] [id number] 13:12:00 13:12:00 [facility] Magdalena [facility] ent [facility] 2020-06-01 2020-06-01 [facility] [id number] 12:30:00 23:59:00 Encounter Peng Barrera [id number] [place] [id number] [place] [id number] 2020-05-28 2020-05-[facility] [id number] 00:00:00 00:00:00 Peng ORTIZ [id number] [facility] [id number] PAVILLION [id number] [facility] 2020-05-27 2020-05-27 [facility] [id number] [facility] [address] 15:57:00 15:57:00 [facility] [employer] [facility] 2020-05-11 2020-05-11 Telephone [facility] [id number] 00:00:00 00:00:00 Peng Barrera [id number] [place] [id number] [facility] [phone] [address] 2020-05-04 2020-05-04 [facility] [id number] [address] 13:46:00 13:46:00 [facility] [employer] [facility] ent [facility] 2020-04-29 2020-04-29 Telephone [facility] [id number] 00:00:00 00:00:00 Peng Barrera [id number] [place] [id number] Professio [phone] [facility] 2020-04-23 2020-04-23 Telephone [place] [id number] 00:00:00 00:00:00 Peng [place] [id number] [place] [id number] Professio [phone] [address] 2020-04-21 2020-04-21 [facility] [id number] [facility] [address] 16:33:00 16:33:00 [facility] [employer] [facility] Medicine Outpati ent Clinics 2020-04-01 2020-04-01 [facility] [id number] 10:40:00 10:40:00 [employer] [facility] Medicine Outpati ent Clinics 2020-03-08 2020-03-08 [facility] [id number] [address] 16:19:00 16:19:00 [employer] [facility] Medicine Outpati ent Clinics 2020-03-01 2020-03-01 [facility] [id number] 14:28:00 14:28:00 [employer] [facility] Medicine Outpati ent Clinics 2020-02-20 2020-02-20 Telemedici [place] [id number] 08:21:37 15:48:50 ne Visit Peng Barrera [id number] [place] [id number] Professio [phone] [address] 2020-01-28 2020-01-28 [facility] [id number] [address] 16:24:00 16:24:00 [employer] [facility] Medicine Outpati ent Clinics 2020-01-13 2020-01-13 Orders Doctor MOSES [id number] 00:00:00 00:00:00 Only Unassigned, RENALDO [id number] [place] [phone] [facility] 2020-01-07 2020-01-07 [facility] [id number] [address] 11:21:00 11:21:00 t Magdalena Magdalena Bocada s - Drive [facility] Medicine l Medicine Outpati ent Clinics 2020-01-05 2020-01-05 [facility] [id number] 14:40:00 14:40:00 t Magdalena Magdalena [employer] LuBPT s - [facility] l Medicine Outpati ent Clinics 2019-12-19 2019-12-19 [facility] [id number] [facility] 11:20:00 11:20:00 t Magdalena Magdalena [employer] Luke s - Drive [facility] Medicine l Medicine Outpati ent Clinics 2019-11-17 2019-11-17 [facility] [id number] [facility] 10:40:00 10:40:00 t Magdalena Magdalena Bocada s - [facility] l Medicine Outpati ent Clinics 2019-11-12 2019-11-12 [facility] [id number] [facility] 15:22:00 15:22:00 t Magdalena Magdalena Bocada s - [facility] l Medicine Outpati ent Clinics 2019-10-13 2019-10-13 [facility] [id number] [address] 08:38:00 08:38:00 t Magdalena [employer] s - [facility] l Medicine Outpati ent Clinics 2019-09-25 2019-09-25 [facility] [id number] 09:55:00 09:55:00 t Magdalena Magdalena Bocada s - [facility] l Medicine Outpati ent Clinics 2019-09-12 2019-09-12 [facility] [id number] 10:00:00 10:00:00 t Magdalena Magdalena Bocada s - Drive [facility] Medicine Medicine Outpati ent Clinics 2019-08-21 2019-08-21 [facility] [id number] [facility] 14:20:00 14:20:00 t Magdalena [employer] s - [facility] l Medicine Outpati ent Clinics 2019-08-14 2019-08-14 [facility] [id number] 09:45:00 09:45:00 t Specialty/U Melba kes - Specialty rology Memori a /Urology Clinic l Clinic Outpati ent Clinics 2019-07-23 2019-07-23 [facility] [id number] 09:30:00 09:30:00 t Specialty/U Melba kes - Specialty rology Memori a /Urology Clinic l Clinic Outpati ent Clinics 2019-07-21 2019-07-21 Orders Doctor AURELIA [id number] 00:00:00 00:00:00 Only Unassigned, RENALDO [id number] [facility] [id number] 2019-07-18 2019-07-18 [facility] [id number] 13:20:00 13:20:[address] [facility] 2019-07-09 2019-07-09 Telephone [facility] [id number] 00:00:00 00:00:00 [facility] [id number] Surgical [id number] Specialti [phone] es [address] [place] 2019-06-20 2019-06-20 Orders Doctor AURELIA [id number] 00:00:00 00:00:00 Only Unassigned, RENALDO [id number] [place] [facility] [id number] 009 2019-05-21 2019-05-21 [facility] [id number] 13:45:00 13:45:00 t Specialty/U Melba kes - Specialty rology Memori a /Urology Clinic l Clinic Outpati ent Clinics 2019-05-16 2019-05-16 [facility] [id number] [facility] 11:30:00 11:30:00 t Specialty/U Melba kes - Specialty rology Memori a /Urology Clinic l Clinic Outpati ent Clinics 2019-05-13 2019-05-13 [facility] [id number] 10:40:00 10:40:00 t [employer] [facility] ent [facility] 2019-05-08 2019-05-08 [facility] [id number] 11:30:00 11:30:00 t Specialty/U Melba kes - Specialty rology Memori a /Urology Clinic l Clinic Outpati ent Clinics 2019-04-11 2019-04-11 Orders Doctor MOSES [id number] 00:00:00 00:00:00 Only Unassigned, RENALDO [id number] [place] [facility] [id number] 2019-03-13 2019-03-13 [facility] [id number] 10:40:00 10:40:00 t Cal[employer]eda [facility] Outpati ent Clinics 2019-02-19 2019-02-19 [facility] [id number] [address] 11:30:00 11:30:00 t Specialty/U Melba kes - Specialty rology Memori a /Urology Clinic l Clinic Outpati ent Clinics 2019-02-14 2019-02-14 [facility] [id number] 11:15:00 11:15:00 t Specialty/U Melba kes - Specialty rology Memori a /Urology Clinic l Clinic Outpati ent Clinics 2019-02-05 2019-02-05 [facility] [id number] 09:30:00 09:30:00 t Calxeda [facility] 2019-01-17 2019-01-17 [facility] [id number] 11:00:00 11:00:00 t Specialty/U Melba kes - Specialty rology Memori a /Urology Clinic l Clinic Outpati ent Clinics 2019-01-13 2019-01-13 [facility] [id number] 08:30:00 08:30:00 t Specialty/U Melba kes - Specialty rology Memori a /Urology Clinic l Clinic Outpati ent Clinics 2018-12-24 2018-12-24 [facility] [id number] 07:58:00 07:58:00 t Specialty/U Melba kes - Specialty rology Memori a /Urology Clinic l Clinic Outpati ent Clinics 2018-12-17 2018-12-17 [facility] [id number] 10:15:00 10:15:00 t Specialty/U Melba kes - [facility] Clin[facility] 2018-12-13 2018-12-13 [facility] [id number] 09:35:00 09:35:00 t Magdalena [employer] Lu[employer] s - Drive [facility] Medicine Medicine Outpati ent Clinics 2018-12-11 2018-12-11 [facility] [id number] 10:30:00 10:30:00 t Magdalena [employer] s - Drive [facility] Medicine Outpati ent Clinics 2018-08-22 2018-08-22 [facility] [id number] 08:12:00 08:12:00 t [employer] s - Drive [facility] Medicine Outpati ent Clinics 2018-08-20 2018-08-20 [facility] [id number] 09:15:00 09:15:00 t Magdalena [employer] s - Drive [facility] Medicine Outpati ent Clinics 2018-08-05 2018-08-05 [facility] [id number] 14:15:00 14:15:00 t [employer] s - Drive [facility] Medicine Outpati ent Clinics 2015-02-17 2015-02-17 Orders Doctor AURELIA [id number] 00:00:00 00:00:00 Only Unassigned, RENALDO [id number]2.686 [id number] [id number] 2014-08-19 2014-08-19 Orders Doctor AURELIA [id number] 00:00:00 00:00:00 Only Unassigned, RENALDO [id number]686 [id number] [id number] 2014-07-28 2014-07-28 Orders Doctor AURELIA [id number] 00:00:00 00:00:00 Only Unassigned, RENALDO [id number] [place] [facility] [id number] 2014-06-18 2014-06-18 Orders Doctor AURELIA Cirilo.2.840.114 [id number] 00:00:00 00:00:00 Only Unassigned, RENALDO [id number] [place] [id number] [id number] 2013-05-09 2013-05-09 Orders Doctor AURELIA Cirilo.2.840.114 [id number] 00:00:00 00:00:00 Only Unassigned, RENALDO [id number] [facility] [id number] [id number] 2012-09-30 2012-09-30 Orders Doctor AURELIA Cirilo.2.840.114 [id number] 00:00:00 00:00:00 Only Unassigned, RENALDO [id number] [facility] [id number] 2012-08-13 2012-08-13 Orders Doctor AURELIA [id number] [id number] 00:00:00 00:00:00 Only Unassigned, RENALDO [id number] [facility] [id number] 2012-02-29 2012-02-29 Orders Doctor AURELIA Cirilo.2.840.114 [id number] 00:00:00 00:00:00 Only Unassigned, RENALDO [id number] [facility] [id number] Results This patient has no known results.
[2020-08-03] MEDS ORDERED: MORPHINE 4 MG/ML SYR ONE (15:53)
[2020-08-03] MEDS ORDERED: ONDANSETRON 4 MG/2 ML VIAL ONE (15:53)
[2020-08-03 15:57] LABS: Absolute Lymphocytes (CBC) 1.9 K/uL (0.7-4.9); Basophils % 1.2 % (0-1.3); Hematocrit 42.8 % (36.0-45.0); Lymphocytes % 38.9 % (15.3-44.8); MPV 10.6 fL (7.6-11.3); RBC Red Blood Cell Count 4.89 M/uL (3.86-4.86)
[2020-08-03 16:05] LABS: Urine Blood TRACE (NEG); Urine Glucose NEGATIVE (NEG); Urine Protein NEGATIVE (NEG); Urine Specific Gravity 1.025 (1.005-1.030); Urine pH 5.5 (5.0-7.0)
--- NOTE | 2020-08-03 16:12 | RAD REPORT ---
EXAM DESCRIPTION: RAD - Chest Single View - 08/03/2020 3:53 pm CLINICAL HISTORY: PAIN, history of asthma COPD and atrial fibrillation COMPARISON: Two view chest April 2019 TECHNIQUE: AP portable chest image was obtained 08/03/2020 3:53 pm . FINDINGS: Lung volumes are relatively low. Along with body habitus affects, low lung volumes limit a ssessment. No acute lung parenchymal process suspected. Heart and vasculature are normal. No measurab le pleural effusion and no pneumothorax. No acute bony abnormality seen. No acute aortic findings branden pected. IMPRESSION: No acute cardiopulmonary process.
[2020-08-03 16:17] LABS: Albumin 3.4 g/dL (3.4-5.0); Bilirubin Direct 0.2 mg/dL (0-0.2); Bilirubin Total 1.1 mg/dL (0.2-1.0); Potassium 3.4 mmol/L (3.5-5.1)
--- NOTE | 2020-08-03 17:08 | RAD REPORT ---
EXAM DESCRIPTION: CT - Abdomen Pelvis W Contrast - 08/03/2020 4:41 pm CLINICAL HISTORY: ABD PAIN COMPARISON: Abdomen Pelvis W Contrast dated 10/08/2019; Abdomen Pelvis W Contrast dated 9 TECHNIQUE: Biphasic, helical CT imaging of the abdomen and pelvis was performed following 100 ml non -ionic IV contrast. No oral contrast. All CT scans are performed using dose optimization technique as appropriate and may include automated exposure control or mA/KV adjustment according to patient size. FINDINGS: No suspicious findings in the lung bases. The liver, spleen, and pancreas show no suspicious findings. Mild diffuse fatty infiltration of the l iver is present. Cholecystectomy clips present with no biliary tree dilatation. Symmetric renal function is seen with no hydronephrosis or suspicious renal mass. No pyelonephritis o r acute parenchymal process. Urinary bladder is contracted. Uterus is absent. No ovarian or adnexal s ignificant finding. No adrenal abnormalities. No dilated bowel loops or bowel wall thickening. No appendicitis. No active GI process seen. No free air, free fluid or inflammatory stranding. No hernia, mass or bulky lymphadenopathy. No suspicious bony findings. Disc and bone degenerative changes are present. IMPRESSION: No hydronephrosis or acute finding. No pyelonephritis or acute GI process. No abnorma lity to explain a right-sided abdomen or flank pain pattern. Gallbladder is absent with no biliary tree dilatation. Mild diffuse fatty infiltration of the liver.
--- NOTE | 2020-08-03 17:23 | EDPHYS ---
Physician Documentation [facility] Name: Madhavi Michael Age: 54 yrs Sex: Female : 1965 Arrival Date: 08/03/2020 Time: 15:29 Bed 14 Private MD: ED Physician Arnulfo Pelayo HPI: 08/03 15:31 This 54 yrs old Black Female presents to ER via Unassigned with complaints of flank kb pain. 15:31 The patient complains of pain in the right flank. The pain radiates to the right upper kb quadrant. Onset: The symptoms/episode began/occurred 1 month(s) ago. Modifying factors: The symptoms are alleviated by nothing. the symptoms are aggravated by palpation/percussion. Associated signs and symptoms: The patient has no apparent associated signs or symptoms. Severity of pain: At its worst the pain was moderate in the emergency department the pain is unchanged. The patient has not experienced similar symptoms in the past. The patient has not recently seen a physician. Pt reports right flank pain that radiates to abd for 1 month. States today it was burning pain that gets worse with inspiration so she came to get it checked out.. Historical: - Allergies: 15:35 NKA; ls4 - PMHx: 15:35 Asthma; Atrial Fib; COPD; CVA; Diabetes - NIDDM; Leaking Veins x2 Right Leg; ls4 neuropathy; sciatica; Sleep Apnea; - Immunization history:: Adult Immunizations up to date. - Social history:: Smoking status: unknown. ROS: 15:31 Constitutional: Negative for fever, chills, and weight loss, Cardiovascular: Negative kb for chest pain, palpitations, and edema, Respiratory: Negative for shortness of breath, cough, wheezing, and pleuritic chest pain, MS/Extremity: Negative for injury and deformity, Skin: Negative for injury, rash, and discoloration, Neuro: Negative for headache, weakness, numbness, tingling, and seizure. 15:31 Abdomen/GI: Positive for abdominal pain, Negative for nausea, vomiting, and diarrhea. 15:34 Back: Positive for pain at rest, radiated pain, of the right subscapular area and right kb mid back. Exam: 15:31 Constitutional: This is a well developed, well nourished patient who is awake, alert, kb and in no acute distress. Head/Face: Normocephalic, atraumatic. Chest/axilla: Normal chest wall appearance and motion. Nontender with no deformity. No lesions are appreciated. Cardiovascular: Regular rate and rhythm with a normal S1 and S2. No gallops, murmurs, or rubs. Normal PMI, no JVD. No pulse deficits. Respiratory: Lungs have equal breath sounds bilaterally, clear to auscultation and percussion. No rales, rhonchi or wheezes noted. No increased work of breathing, no retractions or nasal flaring. Skin: Warm, dry with normal turgor. Normal color with no rashes, no lesions, and no evidence of cellulitis. MS/ Extremity: Pulses equal, no cyanosis. Neurovascular intact. Full, normal range of motion. Neuro: Awake and alert, GCS 15, oriented to person, place, time, and situation. Cranial nerves II-XII grossly intact. Motor strength 5/5 in all extremities. Sensory grossly intact. Cerebellar exam normal. Normal gait. 15:31 Abdomen/GI: Inspection: abdomen appears normal, Bowel sounds: normal, in all quadrants, Palpation: soft, in all quadrants, mild abdominal tenderness, moderate abdominal tenderness, in the right upper quadrant. 15:31 Back: pain, that is moderate, of the right subscapular area and right mid back. Vital Signs: 15:29 BP 133 / 81; Pulse 74; Resp 20; Temp 98.4(O); Pulse Ox 99% on R/A; Weight 132.45 kg; ls4 Height 5 ft. 7 in. (170.18 cm); Pain 10/10; 15:51 BP 135 / 94; Pulse 72; Resp 19; Pulse Ox 97% ; jl7 15:29 Body Mass Index 45.73 (132.45 kg, 170.18 cm) ls4 MDM: 15:29 Patient medically screened. kb 15:34 Data reviewed: vital signs, nurses notes. Data interpreted: Pulse oximetry: on room air kb is 99 %. Interpretation: normal. 17:22 Counseling: I had a detailed discussion with the patient and/or guardian regarding: the kb historical points, exam findings, and any diagnostic results supporting the discharge/admit diagnosis, lab results, radiology results, the need for outpatient follow up, a family practitioner, to return to the emergency department if symptoms worsen or persist or if there are any questions or concerns that arise at home. 08/03 15:30 Order name: Basic Metabolic Panel; Complete Time: 16:18 kb 08/03 15:30 Order name: CBC with Diff; Complete Time: 16:05 kb 08/03 15:30 Order name: Chest Single View XRAY; Complete Time: 16:14 kb 08/03 15:30 Order name: Hepatic Function; Complete Time: 16:18 kb 08/03 15:30 Order name: Lipase; Complete Time: 16:18 kb 08/03 15:58 Order name: Urine Dipstick--Ancillary (enter results); Complete Time: 16:05 em1 08/03 15:30 Order name: IV Saline Lock; Complete Time: 15:49 kb 08/03 15:30 Order name: Labs collected and sent; Complete Time: 15:49 kb 08/03 15:30 Order name: CT Abd/Pelvis - IV Contrast Only; Complete Time: 17:14 kb Administered Medications: 15:45 Drug: Zofran (Ondansetron) 4 mg Route: IVP; Site: left forearm; jl7 16:15 Follow up: Response: No adverse reaction; Marked relief of symptoms ls4 15:47 Drug: morphine 4 mg Route: IVP; Site: left forearm; jl7 16:15 Follow up: Response: No adverse reaction; Marked relief of symptoms ls4 Disposition: 18:47 Co-signature as Attending Physician, Arnulfo Pelayo MD. rn Disposition: 08/03/20 17:22 Discharged to Home. Impression: Upper abdominal pain, unspecified, Right flank pain. - Condition is Stable. - Discharge Instructions: Flank Pain, [id number]. - Medication Reconciliation Form, Thank You Letter, Antibiotic Education, Prescription Opioid Use form. - Follow up: Private Physician; When: 2 - 3 days; Reason: Recheck today's complaints, Continuance of care, Re-evaluation by your physician. Follow up: Emergency Department; When: As needed; Reason: Worsening of condition. Signatures: Dispatcher [employer] EDLinda Stokes, LEARNING AND DEVELOPMENT ASSISTANT-C LEARNING AND DEVELOPMENT ASSISTANT-Arnulfo Ballard MD MD rn Leal, Jahala, RN RN jl7 Sheri Jorgensen RN RN ls4 Corrections: (The following items were deleted from the chart) 15:34 15:31 Constitutional: Negative for fever, chills, and weight loss, Cardiovascular: kb Negative for chest pain, palpitations, and edema, Respiratory: Negative for shortness of breath, cough, wheezing, and pleuritic chest pain, Back: Negative for injury and pain, MS/Extremity: Negative for injury and deformity, Skin: Negative for injury, rash, and discoloration, Neuro: Negative for headache, weakness, numbness, tingling, and seizure, kb 17:23 17:22 08/03/2020 17:22 Discharged to Home. Impression: Upper abdominal pain, kb unspecified. Condition is Stable. Forms are Medication Reconciliation Form, Thank You Letter, Antibiotic Education, Prescription Opioid Use. Follow up: Private Physician; When: 2 - 3 days; Reason: Recheck today's complaints, Continuance of care, Re-evaluation by your physician. Follow up: Emergency Department; When: As needed; Reason: Worsening of condition. kb 18:20 17:23 08/03/2020 17:22 Discharged to Home. Impression: Upper abdominal pain, jl7 unspecified; Right flank pain. Condition is Stable. Discharge Instructions: Flank Pain, [id number]. Forms are Medication Reconciliation Form, Thank You Letter, Antibiotic Education, Prescription Opioid Use. Follow up: Private Physician; When: 2 - 3 days; Reason: Recheck today's complaints, Continuance of care, Re-evaluation by your physician. Follow up: Emergency Department; When: As needed; Reason: Worsening of condition. kb
--- NOTE | 2020-08-03 17:23 | ER ---
Nurse's Notes [facility] Name: Madhavi Michael Age: 54 yrs Sex: Female : 1965 Arrival Date: 08/03/2020 Time: 15:29 Bed 14 Private MD: Diagnosis: Upper abdominal pain, unspecified;Right flank pain Presentation: 08/03 15:29 Chief complaint: EMS states: Right Flank pain for a month. Has muscle relaxers for the ls4 pain from her PCP. Not helping. BGL 124. Coronavirus screen: At this time, the client does not indicate any symptoms associated with coronavirus-19. Ebola Screen: No symptoms or risks identified at this time. Initial Sepsis Screen: Does the patient meet any 2 criteria? No. Patient's initial sepsis screen is negative. Does the patient have a suspected source of infection? No. Patient's initial sepsis screen is negative. Risk Assessment: Do you want to hurt yourself or someone else? Patient reports no desire to harm self or others. Onset of symptoms is unknown. 15:29 Method Of Arrival: EMS: [facility] 15:29 Acuity: SISSY 3 ls4 Triage Assessment: 16:40 General: Appears in no apparent distress. Behavior is calm, cooperative. ls4 Historical: - Allergies: 15:35 NKA; ls4 - PMHx: 15:35 Asthma; Atrial Fib; COPD; CVA; Diabetes - NIDDM; Leaking Veins x2 Right Leg; ls4 neuropathy; sciatica; Sleep Apnea; - Immunization history:: Adult Immunizations up to date. - Social history:: Smoking status: unknown. Screenin:51 Abuse screen: Denies threats or abuse. Denies injuries from another. Nutritional jl7 screening: No deficits noted. Tuberculosis screening: No symptoms or risk factors identified. Fall Risk IV access (20 points). Total Mathis Fall Scale indicates No Risk (0-24 pts). Assessment: 15:30 General: Appears in no apparent distress. uncomfortable. Pain: Complains of pain in ls4 abdomen and right upper quadrant and right flank Pain currently is 10 out of 10 on a pain scale. Quality of pain is described as burning. Neuro: No deficits noted. Cardiovascular: Denies chest pain. Respiratory: Airway is patent Respiratory effort is even, unlabored, Respiratory pattern is regular, Breath sounds are clear bilaterally. Derm: No deficits noted. No signs and/or symptoms reported regarding the dermatologic system. Musculoskeletal: No deficits noted. No signs and/or symptoms reported regarding the musculoskeletal system. 16:39 Reassessment: Patient appears in no apparent distress at this time. Patient and/or ls4 family updated on plan of care and expected duration. Pain level reassessed. Patient is alert, oriented x 3, equal unlabored respirations, skin warm/dry/pink. PT AMBULATED TO BATHROOM WITH NO DISTRESS, GAIT STEADY. Vital Signs: 15:29 BP 133 / 81; Pulse 74; Resp 20; Temp 98.4(O); Pulse Ox 99% on R/A; Weight 132.45 kg; ls4 Height 5 ft. 7 in. (170.18 cm); Pain 10/10; 15:51 BP 135 / 94; Pulse 72; Resp 19; Pulse Ox 97% ; jl7 15:29 Body Mass Index 45.73 (132.45 kg, 170.18 cm) ls4 ED Course: 15:29 Patient arrived in ED. kb 15:29 Linda Colbert FNP-C is PHCP. kb 15:29 Arnulfo Pelayo MD is Attending Physician. kb 15:29 Sheri Jorgensen, DAKSHA is Primary Nurse. ls4 15:32 Triage completed. ls4 15:38 Missed attempt(s): 20 gauge in right forearm. Bleeding controlled, band aid applied, jl7 catheter tip intact. 15:40 Missed attempt(s): 20 gauge in right forearm. Bleeding controlled, band aid applied, jl7 catheter tip intact. 15:43 Initial lab(s) drawn, by ct, sent to lab. Inserted saline lock: 20 gauge in left jl7 forearm, using aseptic technique. Blood collected. 15:50 Patient has correct armband on for positive identification. Placed in gown. Bed in low jl7 position. Call light in reach. Side rails up X2. Pulse ox on. NIBP on. Warm blanket given. 15:52 Chest Single View XRAY In Process Unspecified. EDMS 16:40 No provider procedures requiring assistance completed. Patient maintains SpO2 ls4 saturation greater than 95% on room air. 16:42 CT Abd/Pelvis - IV Contrast Only In Process Unspecified. EDMS 18:00 IV discontinued, intact, bleeding controlled, No redness/swelling at site. Pressure ls4 dressing applied. Administered Medications: 15:45 Drug: Zofran (Ondansetron) 4 mg Route: IVP; Site: left forearm; jl7 16:15 Follow up: Response: No adverse reaction; Marked relief of symptoms ls4 15:47 Drug: morphine 4 mg Route: IVP; Site: left forearm; jl7 16:15 Follow up: Response: No adverse reaction; Marked relief of symptoms ls4 Outcome: 17:22 Discharge ordered by MD. [email or web address] 18:00 Discharged to home ambulatory. ls4 18:00 Condition: good 18:00 Discharge instructions given to patient, family, Instructed on discharge instructions, follow up and referral plans. medication usage, safety practices, Demonstrated understanding of instructions, follow-up care, medications. 18:20 Patient left the ED. jl7 Signatures: Dispatcher [employer] EDLinda Stokes, LALA ARAUZ-Bruce Menjivar RN RN jl7 Sheri Jorgensen RN RN ls4
[2020-08-03 22:31] VITALS: TEMP 98.4
[2020-08-03 22:32] VITALS: BP 135/94; O2SAT 97
== END 2020-08-03 18:20 | disposition home or self-care (01) ==
LOC: ER 15:21
DX: R10.11 Right upper quadrant pain (principal); G62.9 Polyneuropathy, unspecified
CPT/HCPCS: 85025; 80048; 36415; 80076; 81003; 83690; 74177; 71045; 96375; 96374; 99284; Q9967; J2405

== ENCOUNTER 2021-02-04 13:31 | Emergency (ER) | payer OTHER ==
--- OUTSIDE RECORDS SUMMARY | 2021-02-04 13:34 | XMS REPORT | Continuity of Care Document ---
:1965 Author Organization [facility] t Address [address] [place] [address] Care Team Providers Name Role Phone Newton MARTINEZ, John Attending Clinician Doctor Unassigned, Name Attending Clinician Unavailable Nguyễn MARTINEZ, L Attending Clinician Problems This patient has no known problems. Allergies, Adverse Reactions, Alerts This patient has no known allergies or adverse reactions. Medications Ordered Filled Start Stop Current Ordering Indication Dosage Frequency Signature Comments Components Source Medication Medication Date Date Medication? Clinician (SIG) Name Name Tizanidine Tizanidine 2019-0 2020- No Na Shabazz [address] [facility] HCl HCl 07-06 [facility] Potassium Potassium Yes Na Shabazz [address] [facility] Chloride ER Chloride ER with food [facility] Clinics Immunizations Ordered Filled Immunization Date Status Comments Sourc e Immunization Name Name Afluria single dose Afluria single dose 2019-08-[address] [facility] Procedures This patient has no known procedures. Encounters Start End Encounter Admission Attending Care Care Encounter Source Date/Time Date/Time Type Type Clinicians Facility Department ID 2021-01-25 2021-01-25 Outpatient [facility] [id number] [facility] 2021-01-18 2021-01-18 Outpatient [facility] [id number] [facility] 2020-12-07 2020-12-07 Outpatient [facility] [id number] [facility] 2020-11-04 2020-11-04 Outpatient [facility] [id number] [facility] 2020-11-03 2020-11-03 Outpatient [facility] [id number] [facility] 2020-09-27 2020-09-27 Outpatient [facility] [id number] [facility] 2020-09-06 2020-09-06 Outpatient [facility] [id number] [facility] 2020-07-06 2020-07-06 [facility] [id number] [facility] 11:42:00 11:42:00 [facility] [employer] [facility] Medicine l Medicine Outpati ent Clinics 2020-07-05 2020-07-05 [facility] [id number] 10:00:00 10:00:00 [employer] [facility] Family Medicine l Medicine Outpati ent Clinics 2020-07-02 2020-07-02 Douglas Newton [facility] [id number] 00:00:00 00:00:00 Peng Barrera [id number] [place] [id number] Miky [id number] [address] 2020-06-14 2020-06-14 [facility] [id number] 13:12:00 13:12:00 [facility] ent [facility] 2020-06-01 2020-06-01 [facility] [id number] 12:30:00 23:59:00 Encounter Peng Barrera [id number] [place] [id number] [place] [id number] 2020-05-28 2020-05-28 Refill [facility] [id number] 00:00:00 00:00:00 Peng Lopez [facility] [id number] [facility] [id number] PAVILLION [id number] [facility] 2020-05-27 2020-05-27 [facility] [id number] 15:57:00 15:57:00 [facility] 2020-05-11 2020-05-11 [address]840.114 [id number] 00:00:00 00:00:00 Peng Barrera [id number] [place] [id number] Professio [phone] nal 2 [facility] 2020-05-04 2020-05-04 [facility] [id number] 13:46:00 13:46:00 [facility] 2020-04-29 2020-04-29 [address]840.114 [id number] 00:00:00 00:00:00 Peng Barrera [id number] [place] [id number] Professio [phone] nal 092 [facility] 2020-04-23 2020-04-23 Telephone [facility] [id number] 00:00:00 00:00:00 Peng Barrera [id number] [place] [id number] Professio [phone] nal 092 [facility] 2020-04-21 2020-04-21 [facility] [id number] 16:33:00 16:33:00 [facility] s Work [address] [facility] Medicine Outpati ent Clinics 2020-04-01 2020-04-01 [facility] [id number] 10:40:00 10:40:00 [employer] s - Drive [facility] Medicine Outpati ent Clinics 2020-03-08 2020-03-08 [facility] [id number] 16:19:00 16:19:00 [place] [employer] s - Drive [facility] Medicine Outpati ent Clinics 2020-03-01 2020-03-01 [facility] [id number] 14:28:00 14:28:00 [employer] [facility] Medicine Outpati ent Clinics 2020-02-20 2020-02-20 [facility] [id number] 08:21:37 15:48:50 ne Visit Peng Barrera [id number] [place] [id number] Professio [phone] critical access hospital2 [facility] 2020-01-28 2020-01-28 [facility] [id number] 16:24:00 16:24:00 [employer] [facility] Medicine Outpati ent Clinics 2020-01-13 2020-01-13 Orders Doctor MOSES [id number] 00:00:00 00:00:00 Only Unassigned, RENALDO [id number] [place] [facility] [id number] 2020-01-07 2020-01-07 [facility] [id number] 11:21:00 11:21:00 [employer] [facility] Medicine Outpati ent Clinics 2020-01-05 2020-01-05 [facility] [id number] 14:40:00 14:40:00 [employer] [facility] Medicine Outpati ent Clinics 2019-12-19 2019-12-19 [facility] [id number] 11:20:00 11:20:00 t [place] [employer] s - Drive [facility] Medicine Outpati ent Clinics 2019-11-17 2019-11-17 [facility] [id number] 10:40:00 10:40:00 [place] [employer] s - Drive [facility] Medicine Outpati ent Clinics 2019-11-12 2019-11-12 [facility] [id number] 15:22:00 15:22:00 [place] [employer] s - Drive [facility] Medicine Outpati ent Clinics 2019-10-13 2019-10-13 [facility] [id number] 08:38:00 08:38:00 [place] [employer] s - Drive [facility] Medicine Outpati ent Clinics 2019-09-25 2019-09-25 [facility] [id number] 09:55:00 09:55:00 t [place] [employer] s - Drive [facility] Medicine Outpati ent Clinics 2019-09-12 2019-09-12 [facility] [id number] 10:00:00 10:00:00 t [place] [employer] s - Drive [facility] Medicine Outpati ent Clinics 2019-08-21 2019-08-21 [facility] [id number] 14:20:00 14:20:00 t [place] [employer] s - Drive [facility] Medicine Outpati ent Clinics 2019-08-14 2019-08-14 [facility] [id number] 09:45:00 09:45:00 t Specialty/U Melba kes - Specialty rology Memori a /Urology Clinic l Clinic Outpati ent Clinics 2019-07-23 2019-07-23 [facility] [id number] 09:30:00 09:30:00 t Specialty/U Melba kes - Specialty rology Memori a /Urology Clinic l Clinic Outpati ent Clinics 2019-07-21 2019-07-21 Heather MOSES [id number] 00:00:00 00:00:00 Only Unassigned, RENALDO [id number] [place] [id number] [id number] 2019-07-18 2019-07-18 [facility] [id number] 13:20:00 13:20:00 [employer] [facility] ent [facility] 2019-07-09 2019-07-09 Telephone Nguyễn [facility] [id number] 00:00:00 00:00:00 [facility] [place] [id number] Surgical [id number] Special [id number] [address] [place] 2019-06-20 2019-06-20 Orders Doctor MOSES [id number] 00:00:00 00:00:00 Only Unassigned, RENALDO [id number] [place] [id number] [id number] 2019-05-21 2019-05-21 [facility] [id number] 13:45:00 13:45:00 t Specialty/U Melba kes - Specialty rology Memori a /[facility]rology Clinic [facility] 2019-05-16 2019-05-16 [facility] [id number] 11:30:00 11:30:00 t Specialty/U Melba kes - Specialty rology Memori a /Urology [facility] l [facility] 2019-05-13 2019-05-13 [facility] [id number] 10:40:00 10:40:00 [facility] 2019-05-08 2019-05-08 [facility] [id number] 11:30:00 11:30:00 t Specialty/U Melba kes - Specialty rology Memori a /Urology Clinic l [facility] 2019-04-11 2019-04-11 Orders Doctor MOSES [id number] 00:00:00 00:00:00 Only Unassigned, RENALDO [id number] [place] [id number] [id number] 2019-03-13 2019-03-13 [facility] [id number] 10:40:00 10:40:00 t [employer] [facility] Outpati ent Clinics 2019-02-19 2019-02-19 [facility] [id number] 11:30:00 11:30:00 t Specialty/U Melba kes - Specialty rology Memori a /Urology Clinic l Clinic Outpati ent Clinics 2019-02-14 2019-02-14 [facility] [id number] 11:15:00 11:15:00 t Specialty/U Melba kes - Specialty rology Memori a /Urology Clinic l Clinic Outpati ent Clinics 2019-02-05 2019-02-05 [facility] [id number] 09:30:00 09:30:00 t [employer] [facility] Outpati ent Clinics 2019-01-17 2019-01-17 [facility] [id number] 11:00:00 11:00:00 t Specialty/U Melba kes - Specialty rology Memori a /Urology Clinic l Clinic Outpati ent Clinics 2019-01-13 2019-01-13 [facility] [id number] 08:30:00 08:30:00 t Specialty/U Melba kes - Specialty rology Memori a /Urology Clinic l Clinic Outpati ent Clinics 2018-12-24 2018-12-24 [facility] [id number] 07:58:00 07:58:00 t Specialty/U Melba kes - Specialty rology Memori a /Urology Clinic l Clinic Outpati ent Clinics 2018-12-17 2018-12-17 [facility] [id number] [facility] 10:15:00 10:15:00 t Specialty/U Melba kes - Specialty rology Memori a /Urology Clinic l Clinic Outpati ent Clinics 2018-12-13 2018-12-13 [facility] [id number] [facility] 09:35:00 09:35:00 t [place] [facility] Outpati ent Clinics 2018-12-11 2018-12-11 [facility] [id number] 10:30:00 10:30:[address] [place] [address] [place] [address] Luke s - Drive [facility] Medicine [facility] 2018-08-22 2018-08-22 [facility] [id number] 08:12:00 08:12:00 [place] [address] [place] [address] Luke s - Drive [facility] Medicine Outpati ent Clinics 2018-08-20 2018-08-20 [facility] [id number] 09:15:00 09:15:00 [place] [address] Luke s - Drive [facility] Medicine Medicine Outpati ent Clinics 2018-08-05 2018-08-05 [facility] [id number] 14:15:00 14:15:00 t [place] [employer] s - Drive [facility] Medicine [facility] 2015-02-17 2015-02-17 Orders Doctor AURELIA Jones2.840.114 [id number] 00:00:00 00:00:00 Only Unassigned, RENALDO [id number] [place] [facility] [id number] [id number] 2014-08-19 2014-08-19 Orders Doctor AURELIA Jones2.840.114 [id number] 00:00:00 00:00:00 Only Unassigned, RENALDO [id number] [place] [facility] [id number] 2014-07-28 2014-07-28 Orders Doctor AURELIA Jones2.840.114 [id number] 00:00:00 00:00:00 Only Unassigned, RENALDO [id number] [place] [facility] [id number] [id number] [id number] 2014-06-18 2014-06-18 Orders Doctor AURELIA Jones2.840.114 [id number] 00:00:00 00:00:00 Only Unassigned, RENALDO 350.1.13.10 [place] [facility] [id number] [id number] 2013-05-09 2013-05-09 Orders Doctor AURELIA Jones2.840.114 [id number] 00:00:00 00:00:00 Only Unassigned, RENALDO 350.1.13.10 [place] [address]686 [id number] [id number] 2012-09-30 2012-09-30 Orders Doctor AURELIA Jones2.840.114 [id number] 00:00:00 00:00:00 Only Unassigned, RENALDO 350.1.13.10 [place] [address]686 [id number] [id number] 2012-08-13 2012-08-13 Orders Doctor AURELIA Jones2.840.114 [id number] 00:00:00 00:00:00 Only Unassigned, RENALDO 350.1.13.10 [place] [address]686 [id number] [id number] 2012-02-29 2012-02-29 Orders Doctor AURELIA Jones2.840.114 [id number] 00:00:00 00:00:00 Only Unassigned, RENALDO 350.1.13.10 [place] [address]686 [id number] [id number] Results This patient has no known results.
[2021-02-04] MEDS ORDERED: NA CHLORIDE 0.9% 1,000 ML ONE (14:10)
[2021-02-04 14:22] LABS: Protime INR 1.21
[2021-02-04 14:30] LABS: ALT/SGPT 40 U/L (12-78); AST/SGOT 25 U/L (15-37); Albumin 3.5 g/dL (3.4-5.0); Alkaline Phosphatase 54 U/L (45-117); BUN Blood Urea Nitrogen 11 mg/dL (7-18); Bicarbonate 31 mmol/L (21-32); Bilirubin Direct 0.2 mg/dL (0-0.2); Bilirubin Total 1.1 mg/dL (0.2-1.0); Glucose Level 173 mg/dL (74-106); Magnesium 1.9 mg/dL (1.8-2.4); NT PRO-BNP 128 pg/mL (<125); Potassium 3.4 mmol/L (3.5-5.1); Protein, Total 6.9 g/dL (6.4-8.2); Sodium Level 144 mmol/L (136-145); Troponin (Emerg Dept Use Only) < 0.02 ng/mL (0.0-0.045)
[2021-02-04 14:32] LABS: Absolute Lymphocytes (CBC) 1.2 K/uL (0.7-4.9); Basophils % 0.9 % (0-1.3); Hematocrit 45.4 % (36.0-45.0); Lymphocytes % 32.2 % (15.3-44.8); MPV 11.4 fL (7.6-11.3); RBC Red Blood Cell Count 5.11 M/uL (3.86-4.86)
--- NOTE | 2021-02-04 15:13 | RAD REPORT ---
EXAM DESCRIPTION: [facility] Single View02/04/2021 2:25 pm CLINICAL HISTORY: Shortness of breath COMPARISON: July 2020 FINDINGS: The lungs appear grossly clear. Heart is upper limits normal size
--- NOTE | 2021-02-04 16:23 | ER ---
Nurse's Notes [facility] Name: Madhavi Michael Age: 55 yrs Sex: Female : 1965 Arrival Date: 02/04/2021 Time: 13:32 Bed 26 Private MD: Diagnosis: Hypotension Presentation: 02/04 13:36 Chief complaint: EMS states: Was called out because patients BP was 77/42. Patient c/o vg1 nausea and Left arm pain that radiates to the chest. Coronavirus screen: Client denies travel out of the [place] in the last 14 days. Ebola Screen: Patient negative for fever greater than or equal to 101.5 degrees Fahrenheit, and additional compatible Ebola Virus Disease symptoms. Initial Sepsis Screen: Does the patient meet any 2 criteria? No. Patient's initial sepsis screen is negative. Does the patient have a suspected source of infection? No. Patient's initial sepsis screen is negative. Risk Assessment: Do you want to hurt yourself or someone else? Patient reports no desire to harm self or others. Onset of symptoms was February 04, 2021. 13:36 Method Of Arrival: EMS: [facility] vg1 13:36 Acuity: SISSY 3 vg1 Triage Assessment: 13:42 Respiratory: Onset: The symptoms/episode began/occurred this morning. vg1 Historical: - Allergies: 13:39 NKA; vg1 - Home Meds: 13:39 gabapentin 600 mg Oral tab 1 tab 3 times per day [Active]; carvedilol 25 mg Oral tab 1 vg1 tab 2 times per day [Active]; Amiodarone Oral [Active]; Spironolactone Oral [Active]; - PMHx: 13:39 Asthma; Atrial Fib; COPD; Diabetes - NIDDM; CVA; neuropathy; Sleep Apnea; sciatica; vg1 - Immunization history:: Adult Immunizations up to date. - Social history:: Smoking status: Patient/guardian denies using tobacco, quite a week ago. Screenin:41 Abuse screen: Denies threats or abuse. Nutritional screening: No deficits noted. vg1 Tuberculosis screening: No symptoms or risk factors identified. Fall Risk No fall in past 12 months (0 pts). No secondary diagnosis (0 pts). IV access (20 points). Ambulatory Aid- None/Bed Rest/Nurse Assist (0 pts). Gait- Normal/Bed Rest/Wheelchair (0 pts) Mental Status- Oriented to own ability (0 pts). Total Mathis Fall Scale indicates No Risk (0-24 pts). Assessment: 13:40 General: Appears in no apparent distress. comfortable, Behavior is calm, cooperative. vg1 Pain: Complains of pain in Left arm to chest. Pain: Pain currently is 10 out of 10 on a pain scale. Neuro: Level of Consciousness is awake, alert, obeys commands, Oriented to person, place, time, situation. Cardiovascular: Patient's skin is warm and dry. Respiratory: Airway is patent Respiratory effort is even, unlabored, Respiratory pattern is regular, symmetrical. GI: Reports nausea. : No signs and/or symptoms were reported regarding the genitourinary system. EENT: No signs and/or symptoms were reported regarding the EENT system. Derm: Skin is pink, warm \T\ dry. Musculoskeletal: Circulation, motion, and sensation intact. 14:13 Reassessment: Patient stated saw Dr Shabazz last week and was told that had a UTI. Patient vg1 was suppose to be on home health care to receive antibiotics and home health nurse has not showed up. 15:04 Reassessment: Patient appears in no apparent distress at this time. No changes from vg1 previously documented assessment. Patient and/or family updated on plan of care and expected duration. Pain level reassessed. Patient is alert, oriented x 3, equal unlabored respirations, skin warm/dry/pink. 16:00 Reassessment: Patient appears in no apparent distress at this time. Patient and/or vg1 family updated on plan of care and expected duration. Pain level reassessed. Patient is alert, oriented x 3, equal unlabored respirations, skin warm/dry/pink. Vital Signs: 13:36 BP 87 / 52; Pulse 76; Resp 22; Temp 98.2; Pulse Ox 97% on R/A; Weight 141.52 kg; Height vg1 5 ft. 7 in. (170.18 cm); Pain 10/10; 14:12 BP 90 / 63; Pulse 70; Resp 16; Pulse Ox 97% on R/A; vg1 15:03 BP 122 / 74; Pulse 66; Resp 18; Pulse Ox 96% on R/A; vg1 15:50 BP 113 / 72 Supine; Pulse 60; vg1 15:53 BP 125 / 77 Sitting; Pulse 66; vg1 15:56 BP 139 / 87 Standing; Pulse 70; vg1 13:36 Body Mass Index 48.87 (141.52 kg, 170.18 cm) vg1 15:56 patient felt dizzy when standing vg1 ED Course: 13:32 Patient arrived in ED. ds1 13:32 Jordan Covarrubias PA is PHCP. jr8 13:32 aCrlos Leger MD is Attending Physician. jr8 13:36 Sara Hogan, DAKSHA is Primary Nurse. vg1 13:38 Triage completed. vg1 13:42 Arm band placed on. vg1 13:42 Patient has correct armband on for positive identification. Bed in low position. Call vg1 light in reach. Side rails up X2. 13:42 Maintain EMS IV. Dressing intact. Good blood return noted. Site clean \T\ dry. Gauge \T\ vg 1 site: 20 g Left AC. 14:05 Initial lab(s) drawn, by me, sent to lab. EKG done, by ED staff, reviewed by Jordan GANDHI. 14:05 Patient maintains SpO2 saturation greater than 95% on room air. jp3 14:10 Warm blanket given. Verbal reassurance given. laboratory monitor on. Pulse ox on. NIBP on. jp3 14:25 XRAY Chest (1 view) In Process Unspecified. EDNH 16:23 Halle Shabazz MD is Referral Physician. jr8 16:43 No provider procedures requiring assistance completed. IV discontinued, intact, vg1 bleeding controlled, No redness/swelling at site. Pressure dressing applied. Administered Medications: 14:09 Drug: NS 0.9% 1000 ml Route: IV; Rate: 1000 ml; Site: left antecubital; vg1 16:44 Follow up: IV Status: Completed infusion vg1 Outcome: 16:23 Discharge ordered by . jr8 16:43 Discharged to home via wheelchair. vg1 16:43 Condition: stable 16:43 Discharge instructions given to patient, Instructed on discharge instructions, follow up and referral plans. Demonstrated understanding of instructions, follow-up care. 16:43 Patient left the ED. vg1 Signatures: Dispatcher [employer] [facility] Brittany Jenkins ds1 Jordan Covarrubias PA PA jr8 Denzel Tamayo jp3 Sara Hogan, RN RN vg1
--- NOTE | 2021-02-04 16:23 | EDPHYS ---
Physician Documentation [facility] Name: Madhavi Michael Age: 55 yrs Sex: Female : 1965 Arrival Date: 02/04/2021 Time: 13:32 Bed 26 Private MD: ED Physician Carlos Leger HPI: 02/04 16:24 This 55 yrs old Black Female presents to ER via EMS with complaints of chest pain. jr8 16:25 The patient or guardian reports chest pain that is located primarily in the anterior jr8 chest wall, left. Onset: acutely, today. The pain does not radiate. Associated signs and symptoms: Pertinent positives: dizziness. The chest pain is described as stabbing. Duration: The patient or guardian reports multiple episodes. Modifying factors: The symptoms are alleviated by remaining still, the symptoms are aggravated by movement. Severity of pain: At its worst the pain was moderate in the emergency department the pain is unchanged. The patient has not experienced similar symptoms in the past. The patient has not recently seen a physician. Patient stated that she felt dizzy this morning. Started to have left arm pain with movement that caused chest pain to left side. EMS called and found patient to be hypotensive. Patient on BP meds at home. EMS stated that they evaluated her BP cough at home and stated that it was reading high. Historical: - Allergies: 13:39 NKA; vg1 - Home Meds: 13:39 gabapentin 600 mg Oral tab 1 tab 3 times per day [Active]; carvedilol 25 mg Oral tab 1 vg1 tab 2 times per day [Active]; Amiodarone Oral [Active]; Spironolactone Oral [Active]; - PMHx: 13:39 Asthma; Atrial Fib; COPD; Diabetes - NIDDM; CVA; neuropathy; Sleep Apnea; sciatica; vg1 - Immunization history:: Adult Immunizations up to date. - Social history:: Smoking status: Patient/guardian denies using tobacco, quite a week ago. ROS: 16:25 Eyes: Negative for injury, pain, redness, and discharge, ENT: Negative for injury, jr8 pain, and discharge, Neck: Negative for injury, pain, and swelling, Respiratory: Negative for shortness of breath, cough, wheezing, and pleuritic chest pain, Abdomen/GI: Negative for abdominal pain, nausea, vomiting, diarrhea, and constipation, Back: Negative for injury and pain, Skin: Negative for injury, rash, and discoloration. 16:25 Cardiovascular: Positive for chest pain, Negative for edema, orthopnea, palpitations, paroxysmal nocturnal dyspnea. 16:25 MS/extremity: Positive for pain, of the left arm. 16:25 Neuro: Positive for dizziness. Exam: 16:25 Head/Face: Normocephalic, atraumatic. Eyes: Pupils equal round and reactive to light, jr8 extra-ocular motions intact. Lids and lashes normal. Conjunctiva and sclera are non-icteric and not injected. Cornea within normal limits. Periorbital areas with no swelling, redness, or edema. ENT: Nares patent. No nasal discharge, no septal abnormalities noted. Tympanic membranes are normal and external auditory canals are clear. Oropharynx with no redness, swelling, or masses, exudates, or evidence of obstruction, uvula midline. Mucous membranes moist. Neck: Trachea midline, no thyromegaly or masses palpated, and no cervical lymphadenopathy. Supple, full range of motion without nuchal rigidity, or vertebral point tenderness. No Meningismus. Chest/axilla: Normal chest wall appearance and motion. Nontender with no deformity. No lesions are appreciated. Cardiovascular: Regular rate and rhythm with a normal S1 and S2. No gallops, murmurs, or rubs. Normal PMI, no JVD. No pulse deficits. Respiratory: Lungs have equal breath sounds bilaterally, clear to auscultation and percussion. No rales, rhonchi or wheezes noted. No increased work of breathing, no retractions or nasal flaring. Abdomen/GI: Soft, non-tender, with normal bowel sounds. No distension or tympany. No guarding or rebound. No evidence of tenderness throughout. Back: No spinal tenderness. No costovertebral tenderness. Full range of motion. Skin: Warm, dry with normal turgor. Normal color with no rashes, no lesions, and no evidence of cellulitis. Neuro: Awake and alert, GCS 15, oriented to person, place, time, and situation. Cranial nerves II-XII grossly intact. Motor strength 5/5 in all extremities. Sensory grossly intact. Cerebellar exam normal. Normal gait. 16:25 Musculoskeletal/extremity: Extremities: grossly normal except: noted in the left arm: No direct tenderness to palpation but had moderate pain that radiated to chest with motion of the shoulder girdle . 18:46 ECG was reviewed by the Attending Physician. jr8 Vital Signs: 13:36 BP 87 / 52; Pulse 76; Resp 22; Temp 98.2; Pulse Ox 97% on R/A; Weight 141.52 kg; Height vg1 5 ft. 7 in. (170.18 cm); Pain 10/10; 14:12 BP 90 / 63; Pulse 70; Resp 16; Pulse Ox 97% on R/A; vg1 15:03 BP 122 / 74; Pulse 66; Resp 18; Pulse Ox 96% on R/A; vg1 15:50 BP 113 / 72 Supine; Pulse 60; vg1 15:53 BP 125 / 77 Sitting; Pulse 66; vg1 15:56 BP 139 / 87 Standing; Pulse 70; vg1 13:36 Body Mass Index 48.87 (141.52 kg, 170.18 cm) vg1 15:56 patient felt dizzy when standing vg1 MDM: 13:32 Patient medically screened. jr8 16:21 Data reviewed: vital signs, nurses notes, lab test result(s), EKG, radiologic studies, jr8 plain films, and as a result, I will discharge patient. Data interpreted: Pulse oximetry: on room air is 96 %. Interpretation: normal. Counseling: I had a detailed discussion with the patient and/or guardian regarding: the historical points, exam findings, and any diagnostic results supporting the discharge/admit diagnosis, lab results, radiology results, the need for outpatient follow up, a family practitioner, to return to the emergency department if symptoms worsen or persist or if there are any questions or concerns that arise at home. ED course: Discussed with patient that she needs to verify if her PB cough is good at home. Needs to f/u with PCP in next few days. Would hold on BP meds tonight. F/U with PCP about her asymptomatic bacteruria . 02/04 13:43 Order name: Basic Metabolic Panel [facility] 02/04 13:43 Order name: CBC with Diff [facility] 02/04 13:43 Order name: LFT's [facility] 02/04 13:43 Order name: Magnesium [facility] 02/04 13:43 Order name: NT PRO-BNP; Complete Time: 14:32 [facility] 02/04 13:43 Order name: PT-INR; Complete Time: 14:32 jr8 02/04 13:43 Order name: Troponin (emerg Dept Use Only); Complete Time: 14:32 8 02/04 13:43 Order name: XRAY Chest (1 view); Complete Time: 15:13 8 02/04 13:43 Order name: EKG; Complete Time: 13:44 jr8 02/04 13:43 Order name: Basic Metabolic Panel; Complete Time: 14:32 EDMS 02/04 13:44 Order name: CBC with Automated Diff; Complete Time: 14:35 EDMS 02/04 13:44 Order name: Liver (Hepatic) Function; Complete Time: 14:32 EDMS 02/04 13:44 Order name: Magnesium; Complete Time: 14:32 EDMS 02/04 13:43 Order name: Cardiac monitoring; Complete Time: 14:09 8 02/04 13:43 Order name: EKG - Nurse/Tech; Complete Time: 14:09 8 02/04 13:43 Order name: IV Saline Lock; Complete Time: 14:09 8 02/04 13:43 Order name: Labs collected and sent; Complete Time: 14:09 8 02/04 13:43 Order name: O2 Per Protocol; Complete Time: 13:51 8 02/04 13:43 Order name: O2 Sat Monitoring; Complete Time: 13:51 8 02/04 15:16 Order name: Orthostatics; Complete Time: 15:59 jr8 EC:46 Rate is 69 beats/min. Rhythm is regular, Normal Sinus Rhythm. QRS [place] is Normal. [place] jr8 interval is normal at 168 msec. QRS interval is normal at 86 msec. QT interval is normal at 418 msec. No Q waves. T waves are Inverted in leads III, aVF, V5, V6. No ST changes noted. Clinical impression: NSR w/ Non-specific ST/T Changes. No change from previous ECG on December 06, 2018. Interpreted by me. Reviewed by me. Administered Medications: 14:09 Drug: NS 0.9% 1000 ml Route: IV; Rate: 1000 ml; Site: left antecubital; vg1 16:44 Follow up: IV Status: Completed infusion vg1 Disposition: 18:52 Co-signature as Attending Physician, Carlos Leger MD I agree with the assessment and tw4 plan of care. Disposition: 02/04/21 16:23 Discharged to Home. Impression: Hypotension. - Condition is Stable. - Discharge Instructions: Hypotension. - Medication Reconciliation Form, Thank You Letter, Antibiotic Education, Prescription Opioid Use form. - Follow up: Halle Shabazz MD; When: 1 - 2 days; Reason: Recheck today's complaints, Continuance of care, Re-evaluation by your physician. - Problem is new. - Symptoms have improved. Signatures: Dispatcher [employer] EDMS Jordan Covarrubias PA PA jr8 Carlos Leger MD MD tw4 Sara Hogan, RN RN vg1 Corrections: (The following items were deleted from the chart) 16:43 16:23 02/04/2021 16:23 Discharged to Home. Impression: Hypotension. Condition is vg1 Stable. Forms are Medication Reconciliation Form, Thank You Letter, Antibiotic Education, Prescription Opioid Use. Follow up: Halle Shabazz; When: 1 - 2 days; Reason: Recheck today's complaints, Continuance of care, Re-evaluation by your physician. Problem is new. Symptoms have improved. jr8
[2021-02-04 16:49] VITALS: TEMP 98.2
[2021-02-04 16:53] VITALS: O2SAT 96
[2021-02-04 16:56] VITALS: BP 139/87
--- NOTE | 2021-02-05 08:30 | EKG ---
Test Date: 2021-02-04 Test Time: 14:01:40 [employer]: [place] MEASUREMENT RESULTS: Intervals: Rate: 69 MN: 168 QRSD: 86 QT: 418 QTc: 447 Vanc[place]: P: 42 MN: 168 QRS: 13 T: -26 INTERPRETIVE STATEMENTS: Normal sinus rhythm T wave abnormality, consider inferolateral ischemia Abnormal ECG Compared to ECG 12/06/2018 21:09:51 Possible ischemia now present Sinus bradycardia no longer present T-wave abnormality still present Electronically Signed On 02-05-21 08:28:59 TRANSITIONAL NURSE by Samuel Christianson
== END 2021-02-04 16:43 | disposition home or self-care (01) ==
LOC: ER 13:31
DX: I95.9 Hypotension, unspecified (principal); Z87.891 Personal history of nicotine dependence; R07.9 Chest pain, unspecified; J44.9 Chronic obstructive pulmonary disease, unspecified; I48.91 Unspecified atrial fibrillation; E11.40 Type 2 diabetes mellitus with diabetic neuropathy, unspecified; Z86.73 Personal history of transient ischemic attack (TIA), and cerebral infarction without residual deficits; G47.30 Sleep apnea, unspecified
CPT/HCPCS: 93005; 85025; 80048; 36415; 83735; 85610; 80076; 84484; 83880; 71045; J7030; 96360; 96361; 99285

== ENCOUNTER 2021-05-11 10:02 | Emergency (ER) | payer OTHER ==
--- OUTSIDE RECORDS SUMMARY | 2021-05-11 10:05 | XMS REPORT | Continuity of Care Document ---
:1965 Author Organization [facility] t Address [address] [place] [address] Care Team Providers Name Role Phone 2, Lab Attending Clinician Unavailable Jj MARTINEZ, L Attending Clinician Problems This patient has no known problems. Allergies, Adverse Reactions, Alerts This patient has no known allergies or adverse reactions. Medications Ordered Filled Start Stop Current Ordering Indication Dosage Frequency Signature Comments Components Source Medication Medication Date Date Medication? Clinician (SIG) Name Name Tizanidine Tizanidine 2020-0 2020- No Na Shabazz [address] [facility] HCl HCl 8-11 09-10 [facility] Potassium Potassium Yes Na Shabazz [address] [facility] Chloride ER Chloride ER with food [facility] Immunizations Ordered Filled Immunization Date Status Comments Sour e Immunization Name Name Afluria single dose Afluria single dose 2019-08-[address] [facility] Procedures This patient has no known procedures. Encounters Start End Encounter Admission Attending Care Care Encounter Source Date/Time Date/Time Type Type Clinicians Facility Department ID 2021-04-19 2021-04-19 Outpatient [facility] [id number] [facility] 2021-04-15 2021-04-15 Outpatient [facility] [id number] [facility] 2021-03-31 2021-03-31 Outpatient [facility] [id number] [facility] 2021-03-24 2021-03-24 Craft Coordinator 2, Adc Lab [facility] [id number] 13:35:27 13:50:27 Visit Bruce [id number] [place] [id number] Professio [id number] [address] 2021-03-11 2021-03-11 [place] [id number] 14:23:31 16:29:07 Visit Opal Barrera [id number] [place] [id number] Professio [id number] [facility] [address] [facility] 2021-02-25 2021-02-25 Outpatient [facility] [id number] [facility] 2021-02-20 2021-02-20 Outpatient [facility] [id number] [facility] 2021-02-15 2021-02-15 Outpatient [facility] [id number] [facility] 2021-02-11 2021-02-11 Outpatient [facility] [id number] [facility] 2021-02-10 2021-02-10 Outpatient [facility] [id number] [facility] 2021-02-09 2021-02-09 Outpatient [facility] [id number] [facility] 2021-02-07 2021-02-07 Outpatient [facility] [id number] [facility] 2021-01-29 2021-01-29 Outpatient [facility] [id number] [facility] 2021-01-25 2021-01-25 Outpatient [facility] [id number] [facility] 2021-01-18 2021-01-18 Outpatient [facility] [id number] [facility] 2020-12-07 2020-12-07 Outpatient [facility] [id number] [facility] 2020-11-04 2020-11-04 Outpatient [facility] [id number] [facility] 2020-11-03 2020-11-03 Outpatient [facility] [id number] [facility] 2020-09-27 2020-09-27 Outpatient [facility] [id number] [facility] 2020-09-06 2020-09-06 Outpatient [facility] [id number] [facility] 2020-07-06 2020-07-06 [facility] [id number] [facility] 11[facility]42:00 11:42:[address] [employer] [address] [facility] Medicine l Medicine Outpati ent Clinics 2020-07-05 2020-07-05 [facility] [id number] [facility] 10:00:00 10:00:00 t [employer] [facility] Medicine l Medicine Outpati ent Clinics 2020-06-14 2020-06-14 [facility] [id number] [facility] 13:12:00 13:12:00 [place] [address] [place] [address] [place] - [address] [facility] Medicine l Medicine Outpati ent Clinics 2020-05-27 2020-05-27 [facility] [id number] 15:57:00 15:57:00 t [place] [email or web address] Luke s - Drive [facility] Medicine l Medicine Outpati ent Clinics 2020-05-04 2020-05-04 [facility] [id number] 13:46:00 13:46:00 [place] [employer] Luke s - Drive [facility] Medicine l Medicine Outpati ent Clinics 2020-04-21 2020-04-21 [facility] [id number] [facility] 16:33:00 16:33:00 t [facility] [employer] s - Road [facility] Medicine l Medicine Outpati ent Clinics 2020-04-01 2020-04-01 [facility] [id number] [facility] 10:40:00 10:40:00 t [place] [employer] s - [facility] Medicine l Medicine Outpati ent Clinics 2020-03-08 2020-03-08 [facility] [id number] [facility] 16:19:00 16:19:00 t [place] Namely s - [facility] Medicine l Medicine Outpati ent Clinics 2020-03-01 2020-03-01 [facility] [id number] [facility] 14:28:00 14:28:00 [place] [employer] s - Drive [facility] Medicine l Medicine Outpati ent Clinics 2020-01-28 2020-01-28 [facility] [id number] 16:24:00 16:24:00 [place] [employer] [place] s - Drive [facility] Medicine l Medicine Outpati ent Clinics 2020-01-07 2020-01-07 [facility] [id number] [facility] 11:21:00 11:21:00 [place] Namely s - [facility] Medicine l Medicine Outpati ent Clinics 2020-01-05 2020-01-05 [facility] [id number] [facility] 14:40:00 14:40:00 t [place] Namely s - [facility] Medicine Medicine Outpati ent Clinics 2019-12-19 2019-12-19 [facility] [id number] [facility] 11:20:00 11:20:00 t [place] Namely s - Drive [facility] Medicine Outpati ent Clinics 2019-11-17 2019-11-17 [facility] [id number] 10:40:00 10:40:00 t [place] Namely s - [facility] Medicine Medicine Outpati ent Clinics 2019-11-12 2019-11-12 [facility] [id number] [facility] 15:22:00 15:22:00 t [place] [employer] s - Drive [facility] Medicine Outpati ent Clinics 2019-10-13 2019-10-13 [facility] [id number] 08:38:00 08:38:00 t [employer] [facility] Medicine Outpati ent Clinics 2019-09-25 2019-09-25 [facility] [id number] [facility] 09:55:00 09:55:00 t [place] Namely s - [facility] Medicine Medicine Outpati ent Clinics 2019-09-12 2019-09-12 [facility] [id number] 10:00:00 10:00:00 t [employer] [facility] Medicine Outpati ent Clinics 2019-08-21 2019-08-21 [facility] [id number] 14:20:00 14:20:00 t [place] Namely s - [facility] Medicine Medicine Outpati ent Clinics 2019-08-14 2019-08-14 [facility] [id number] [facility] 09:45:00 09:45:00 t Specialty/U Melba kes - Specialty rology [facility]Urology [facility] l Clinic Outpati ent Clinics 2019-07-23 2019-07-23 [facility] [id number] 09:30:00 09:30:00 t Specialty/U Melba kes - Specialty rology [facility]Urology Clinic l Clinic Outpati ent Clinics 2019-07-18 2019-07-18 [facility] [id number] 13:20:00 13:20:00 t [email or web address] [facility] Medicine Outpati ent Clinics 2019-05-21 2019-05-21 [facility] [id number] 13:45:00 13:45:00 t Specialty/U Melba kes - Specialty rology [facility] /Urology Clinic l Clinic Outpati ent Clinics 2019-05-16 2019-05-16 [facility] [id number] [address] 11:30:00 11:30:00 t Specialty/U Melba kes - Specialty rology [facility]Urology Clinic l Clinic Outpati ent Clinics 2019-05-13 2019-05-13 [facility] [id number] [facility] 10:40:00 10:40:00 t [email or web address] [facility] Outpati ent Clinics 2019-05-08 2019-05-08 [facility] [id number] [facility] 11:30:00 11:30:00 t Specialty/U Melba kes - Specialty rology [facility]Urology Clinic l Clinic Outpati ent Clinics 2019-03-13 2019-03-13 [facility] [id number] [facility] 10:40:00 10:40:00 t [email or web address] [facility] Outpati ent Clinics 2019-02-19 2019-02-19 [facility] [id number] 11:30:00 11:30:00 t Specialty/U Melba kes - Specialty rology [facility]Urology Clinic l Clinic Outpati ent Clinics 2019-02-14 2019-02-14 [facility] [id number] 11:15:00 11:15:00 t Specialty/U Melba kes - Specialty rology [facility]Urology Clinic l Clinic Outpati ent Clinics 2019-02-05 2019-02-05 [facility] [id number] 09:30:00 09:30:00 t [email or web address] [facility] Outpati ent Clinics 2019-01-17 2019-01-17 [facility] [id number] [facility] 11:00:00 11:00:00 t Specialty/U Melba kes - Specialty rology [facility]Urology Clinic l Clinic Outpati ent Clinics 2019-01-13 2019-01-13 [facility] [id number] 08:30:00 08:30:00 t Specialty/U Melba kes - Specialty rology [facility]Urology Clinic l Clinic Outpati ent Clinics 2018-12-24 2018-12-24 [facility] [id number] [facility] 07:58:00 07:58:00 t Specialty/U Melba kes - Specialty rology [facility]Urology Clinic l Clinic Outpati ent Clinics 2018-12-17 2018-12-17 [facility] [id number] 10:15:00 10:15:00 t Specialty/U Melba kes - Specialty rology [facility]Urology Clinic l Clinic Outpati ent Clinics 2018-12-13 2018-12-13 [facility] [id number] 09:35:00 09:35:00 [place] [address] [place] - Drive [facility] Medicine Outpati ent Clinics 2018-12-11 2018-12-11 [facility] [id number] 10:30:00 10:30:00 t [place] [employer] Luke s - Drive [facility] l Medicine Outpati ent Clinics 2018-08-22 2018-08-22 [facility] [id number] 08:12:00 08:12:00 t [place] [employer] Luke s - Drive [facility] l Medicine Outpati ent Clinics 2018-08-20 2018-08-20 [facility] [id number] [facility] 09:15:00 09:15:00 [place] [address] [place] [address] Luke s - Drive [facility] l Medicine Outpati ent Clinics 2018-08-05 2018-08-05 [facility] [id number] [facility] 14:15:00 14:15:00 t [place] [employer] - Drive [facility] Medicine Outpati ent Clinics Results This patient has no known results.
[2021-05-11 11:21] LABS: Urine Blood Trace-intact (Negative); Urine Glucose Negative (Negative); Urine Protein Negative (Negative); Urine Specific Gravity >=1.030 (1.005-1.030); Urine pH 5.5 (5.0-7.0)
[2021-05-11 11:34] LABS: Absolute Lymphocytes (CBC) 1.7 K/uL (0.7-4.9); Basophils % 0.9 % (0-1.3); Hematocrit 46.4 % (36.0-45.0); Lymphocytes % 36.2 % (15.3-44.8); MPV 10.8 fL (7.6-11.3); RBC Red Blood Cell Count 5.24 M/uL (3.86-4.86)
[2021-05-11] MEDS ORDERED: ONDANSETRON 4 MG/2 ML VIAL ONE (11:42)
[2021-05-11] MEDS ORDERED: MORPHINE 4 MG/ML SYR ONE (11:42)
[2021-05-11 11:55] LABS: Albumin 3.5 g/dL (3.4-5.0); Bilirubin Direct 0.2 mg/dL (0-0.2); Potassium 3.5 mmol/L (3.5-5.1); Protein, Total 6.7 g/dL (6.4-8.2)
--- NOTE | 2021-05-11 12:35 | RAD REPORT ---
EXAM DESCRIPTION: CT - Chest Abdomen Pelvis W Cont - 05/11/2021 12:25 pm CLINICAL HISTORY: Chest and abdominal pain COMPARISON: CT abdomen 2019 TECHNIQUE: Computed axial tomography of the chest, abdomen and pelvis was obtained. 100 cc Isovue-30 0 was administered intravenously. Oral contrast was not given which limits evaluation of bowel and ap pendix All CT scans are performed using dose optimization technique as appropriate and may include automated exposure control or mA/KV adjustment according to patient size. FINDINGS: The lungs are clear. No mediastinal or hilar lymphadenopathy A pleural effusion is not seen. A pericardial effusion is not noted. Fatty liver. Spleen, pancreas, adrenals and kidneys are unremarkable. There is no evidence of diverticulitis. An abnormal appendix is not seen. The appendix is not clearly visualized. No stranding adjacent to the cecum. Hysterectomy. No adnexal mass. Cholecystectomy IMPRESSION: No acute abnormality is displayed
--- NOTE | 2021-05-11 12:41 | ER ---
Nurse's Notes [facility] Name: Madhavi Michael Age: 55 yrs Sex: Female : 1965 Arrival Date: 05/11/2021 Time: 10:05 Bed 6 Private MD: Diagnosis: Strain of muscle and tendon of back wall of thorax;Strain of muscle, fascia and tendon of abdomen, lower back and pelvis Presentation: 05/11 10:19 Chief complaint: Patient states: right flank pain that began 1 week ago, pt reports she aa5 had burning with urination for "a couple days but then it went away". Pt denies nausea/vomiting/diarrhea. 10:19 Coronavirus screen: At this time, the client does not indicate any symptoms associated aa5 with coronavirus-19. Ebola Screen: Patient negative for fever greater than or equal to 101.5 degrees Fahrenheit, and additional compatible Ebola Virus Disease symptoms. Initial Sepsis Screen: Does the patient meet any 2 criteria? No. Patient's initial sepsis screen is negative. Does the patient have a suspected source of infection? No. Patient's initial sepsis screen is negative. Risk Assessment: Do you want to hurt yourself or someone else? Patient reports no desire to harm self or others. Onset of symptoms was 2020. 10:19 Acuity: SISSY 3 aa5 10:19 Method Of Arrival: Ambulatory aa5 Triage Assessment: 10:20 General: Appears in no apparent distress. uncomfortable, obese, Behavior is bp cooperative, appropriate for age, anxious. Pain: Complains of pain in right flank. EENT: No deficits noted. Neuro: No deficits noted. Cardiovascular: No deficits noted. Respiratory: No deficits noted. GI: No signs and/or symptoms were reported involving the gastrointestinal system. : Reports pain in right flank(s). Derm: No deficits noted. Musculoskeletal: No deficits noted. Historical: - Allergies: 10:30 NKA; aa5 - PMHx: 10:30 Asthma; Atrial Fib; COPD; CVA; Diabetes - NIDDM; Leaking Veins x2 Right Leg; aa5 neuropathy; sciatica; Sleep Apnea; - Immunization history:: Adult Immunizations up to date, Client reports receiving the 2nd dose of the Covid vaccine, Flu vaccine is up to date. - Social history:: Smoking status: Patient reports the use of cigarette tobacco products, smokes one pack cigarettes per day. Screenin:20 Abuse screen: Denies threats or abuse. Denies injuries from another. Nutritional bp screening: No deficits noted. Tuberculosis screening: No symptoms or risk factors identified. Fall Risk None identified. Assessment: 10:20 General: SEE TRIAGE NOTE. bp 11:20 Reassessment: No changes from previously documented assessment. Patient and/or family bp updated on plan of care and expected duration. Pain level reassessed. CT PENDING. 13:38 Reassessment: PT D/C HOME VIA W/C WITH FAMILY, DX WITH THORACIC MUSCLE STRAIN. bp Vital Signs: 10:19 BP 133 / 93; Pulse 80; Resp 18 S; Temp 98.2(O); Pulse Ox 98% on R/A; Weight 140.61 kg aa5 (R); Height 5 ft. 7 in. (170.18 cm) (R); Pain 10/10; 11:15 BP 122 / 86; Pulse 68; Resp 16; Pulse Ox 99% ; bp 11:53 BP 107 / 71; Pulse 64; Resp 16; Pulse Ox 97% ; bp 12:54 BP 111 / 65; Pulse 65; Resp 17; Pulse Ox 99% ; bp 13:39 BP 116 / 80; Pulse 71; Resp 17; Temp 98.5; Pulse Ox 99% ; bp 10:19 Body Mass Index 48.55 (140.61 kg, 170.18 cm) aa5 ED Course: 10:05 Patient arrived in ED. as 10:19 Arm band placed on Patient placed in an exam room, on a stretcher. aa5 10:20 Patient has correct armband on for positive identification. Placed in gown. Bed in low bp position. Call light in reach. Side rails up X2. Adult w/ patient. 10:22 Benito Pineda PA is PHCP. [facility] 10:22 Aman Sanchez MD is Attending Physician. [facility] 10:23 Enrique Roca, DAKSHA is Primary Nurse. bp 10:27 Triage completed. aa5 11:12 Inserted saline lock: 20 gauge in right forearm, using aseptic technique. Blood bp collected. 12:11 CT Chest, Abdomen, Pelvis - W/Contrast In Process Unspecified. EDMS 13:38 No provider procedures requiring assistance completed. IV discontinued, intact, bp bleeding controlled, No redness/swelling at site. Pressure dressing applied. Administered Medications: 11:13 Drug: morphine 4 mg Route: IVP; Site: right forearm; bp 13:02 Follow up: Response: Pain is decreased bp 11:13 Drug: Zofran (Ondansetron) 4 mg Route: IVP; Site: right forearm; bp 13:00 Follow up: Response: No adverse reaction bp Outcome: 12:40 Discharge ordered by MD. dee 13:39 Discharged to home via wheelchair, with family. bp 13:39 Condition: stable 13:39 Discharge instructions given to patient, Instructed on discharge instructions, follow up and referral plans. medication usage, Demonstrated understanding of instructions, follow-up care, medications, Prescriptions given X 1. 13:40 Patient left the ED. bp Signatures: Dispatcher [employer] EDMS Benito Pineda PA PA jmm Martinez, Amelia as Calderon, Audri, RN RN aa5 Enrique Roca RN RN bp Corrections: (The following items were deleted from the chart) 11:27 11:26 BP 122 / 86; Pulse 68bpm; Resp 16bpm; Pulse Ox 99%; bp bp
--- NOTE | 2021-05-11 12:41 | EDPHYS ---
Physician Documentation [facility] Name: Madhavi Michael Age: 55 yrs Sex: Female : 1965 Arrival Date: 05/11/2021 Time: 10:05 Bed 6 Private MD: ED Physician Aman Sanchez HPI: 05/11 10:55 This 55 yrs old Black Female presents to ER via Ambulatory with complaints of Flank jmm Pain. 10:55 The patient complains of pain in the right flank. Onset: The symptoms/episode jmm began/occurred gradually, 3 day(s) ago. Modifying factors: The symptoms are alleviated by nothing. the symptoms are aggravated by nothing. Associated signs and symptoms: Pertinent positives: dysuria, Pertinent negatives: fever. The patient has not experienced similar symptoms in the past. Historical: - Allergies: 10:30 NKA; aa5 - PMHx: 10:30 Asthma; Atrial Fib; COPD; CVA; Diabetes - NIDDM; Leaking Veins x2 Right Leg; aa5 neuropathy; sciatica; Sleep Apnea; - Immunization history:: Adult Immunizations up to date, Client reports receiving the 2nd dose of the Covid vaccine, Flu vaccine is up to date. - Social history:: Smoking status: Patient reports the use of cigarette tobacco products, smokes one pack cigarettes per day. ROS: 10:55 Constitutional: Negative for fever, chills, and weight loss, Cardiovascular: Negative jmm for chest pain, palpitations, and edema, Respiratory: Negative for shortness of breath, cough, wheezing, and pleuritic chest pain. 10:55 Back: Positive for flank pain, on the right. 10:55 All other systems are negative. Exam: 10:55 Constitutional: This is a well developed, well nourished patient who is awake, alert, jmm and in no acute distress. Head/Face: atraumatic. Eyes: EOMI, no conjunctival erythema appreciated ENT: Moist Mucus Membranes Neck: Trachea midline, Supple Chest/axilla: Normal chest wall appearance and motion. Cardiovascular: Regular rate and rhythm. No edema appreciated Respiratory: Normal respirations, no respiratory distress appreciated Abdomen/GI: Non distended, soft 10:55 Skin: General appearance color normal MS/ Extremity: Moves all extremities, no obvious deformities appreciated, no edema noted to the lower extremities Neuro: Awake and alert, normal gait Psych: Behavior is normal, Mood is normal, Patient is cooperative and pleasant 10:55 Back: CVA tenderness, that is moderate, is noted on the right. Vital Signs: 10:19 BP 133 / 93; Pulse 80; Resp 18 S; Temp 98.2(O); Pulse Ox 98% on R/A; Weight 140.61 kg aa5 (R); Height 5 ft. 7 in. (170.18 cm) (R); Pain 10/10; 11:15 BP 122 / 86; Pulse 68; Resp 16; Pulse Ox 99% ; bp 11:53 BP 107 / 71; Pulse 64; Resp 16; Pulse Ox 97% ; bp 12:54 BP 111 / 65; Pulse 65; Resp 17; Pulse Ox 99% ; bp 13:39 BP 116 / 80; Pulse 71; Resp 17; Temp 98.5; Pulse Ox 99% ; bp 10:19 Body Mass Index 48.55 (140.61 kg, 170.18 cm) aa5 MDM: 10:52 Patient medically screened. [facility] 12:39 Data reviewed: vital signs, nurses notes. Counseling: I had a detailed discussion with leila the patient and/or guardian regarding: the historical points, exam findings, and any diagnostic results supporting the discharge/admit diagnosis, lab results, radiology results, the need for outpatient follow up, to return to the emergency department if symptoms worsen or persist or if there are any questions or concerns that arise at home. ED course: CT negative. Most likely MS pain. Patient advised to follow up with pcp and otherwise given strict return precautions. patient understood and agrees with the plan of care. . 05/11 10:54 Order name: Basic Metabolic Panel; Complete Time: 11:56 [facility] 05/11 10:54 Order name: CBC with Diff; Complete Time: 11:50 [facility] 05/11 10:54 Order name: Hepatic Function; Complete Time: 11:56 [facility] 05/11 10:54 Order name: Lipase; Complete Time: 11:56 [facility] 05/11 11:17 Order name: Urine Culture [facility] 05/11 11:20 Order name: Urine Dipstick-Ancillary; Complete Time: 11:50 [facility] 05/11 10:54 Order name: IV Saline Lock; Complete Time: 11:12 [facility] 05/11 10:54 Order name: Labs collected and sent; Complete Time: 11:12 [facility] 05/11 10:54 Order name: CT Chest, Abdomen, Pelvis - W/Contrast; Complete Time: 12:38 [facility] 05/11 11:17 Order name: Urine Dipstick-Ancillary (obtain specimen); Complete Time: 11:25 [facility] Administered Medications: 11:13 Drug: morphine 4 mg Route: IVP; Site: right forearm; bp 13:02 Follow up: Response: Pain is decreased bp 11:13 Drug: Zofran (Ondansetron) 4 mg Route: IVP; Site: right forearm; bp 13:00 Follow up: Response: No adverse reaction bp Disposition: 17:35 Co-signature as Attending Physician, Aman Sanchez MD I agree with the assessment and kdr plan of care. Disposition: 05/11/21 12:40 Discharged to Home. Impression: Strain of muscle and tendon of back wall of thorax, Strain of muscle, fascia and tendon of abdomen, lower back and pelvis. - Condition is Stable. - Discharge Instructions: Thoracic Strain. - Prescriptions for orphenadrine citrate 100 mg Oral Tablet Sustained Release - take 1 tablet by ORAL route 2 times per day As needed; 20 tablet. - Medication Reconciliation Form, Thank You Letter, Antibiotic Education, Prescription Opioid Use form. - Follow up: Private Physician; When: 2 - 3 days; Reason: Recheck today's complaints, Continuance of care, Re-evaluation by your physician. Signatures: Dispatcher [employer] EDMS Aman Sanchez MD MD [facility] Benito Pineda PA PA [facility] Gracie Mayorga, RN RN aa5 Enrique Roca RN RN bp Corrections: (The following items were deleted from the chart) 13:40 12:40 05/11/2021 12:40 Discharged to Home. Impression: Strain of muscle and tendon of bp back wall of thorax; Strain of muscle, fascia and tendon of abdomen, lower back and pelvis. Condition is Stable. Forms are Medication Reconciliation Form, Thank You Letter, Antibiotic Education, Prescription Opioid Use. Follow up: Private Physician; When: 2 - 3 days; Reason: Recheck today's complaints, Continuance of care, Re-evaluation by your physician. [facility]
[2021-05-11 14:03] VITALS: O2SAT 99
[2021-05-11 14:04] VITALS: BP 116/80; TEMP 98.5
== END 2021-05-11 13:40 | disposition home or self-care (01) ==
LOC: ER 10:02
DX: S39.013A Strain of muscle, fascia and tendon of pelvis, initial encounter (principal); S39.012A Strain of muscle, fascia and tendon of lower back, initial encounter; S39.011A Strain of muscle, fascia and tendon of abdomen, initial encounter; S29.012A Strain of muscle and tendon of back wall of thorax, initial encounter; F17.210 Nicotine dependence, cigarettes, uncomplicated
CPT/HCPCS: 87088; 85025; 87086; 80048; 36415; 80076; 81003; 83690; 71260; 74177; Q9967; J2405; 96374; 96375; 99284

== ENCOUNTER 2021-09-19 10:24 | Emergency (ER) | payer OTHER ==
[2021-09-19] MEDS ORDERED: HYDROCODONE/APAP 5/325 MG TAB ONE (11:44)
--- NOTE | 2021-09-19 12:17 | RAD REPORT ---
EXAM DESCRIPTION: US - Extrem Venous W Compress Jaya - 09/19/2021 12:11 pm CLINICAL HISTORY: Swelling;Pain Bilateral leg edema and swelling. COMPARISON: Extremity Venous Uni Ltd dated 02/10/2017 TECHNIQUE: Real-time sonographic interrogation of the left and right lower extremity deep venous sys tems was performed. FINDINGS: Normal compressibility, flow augmentation, phasic flow and spontaneous flow is identified in both the left and right lower extremity deep venous systems. Linear echogenic material in the left proximal femoral vein is probably related to old thrombus. IMPRESSION: No sonographic evidence of acute left or right lower extremity deep venous thrombosis.
[2021-09-19 13:50] LABS: Absolute Lymphocytes (CBC) 2.3 K/uL (0.7-4.9); Basophils % 0.8 % (0-1.3); Hematocrit 44.5 % (36.0-45.0); Lymphocytes % 30.4 % (15.3-44.8); MPV 10.2 fL (7.6-11.3); RBC Red Blood Cell Count 4.98 M/uL (3.86-4.86)
[2021-09-19 14:15] LABS: Albumin 3.6 g/dL (3.4-5.0); Protein, Total 7.1 g/dL (6.4-8.2)
[2021-09-19 14:18] LABS: Potassium 4.2 mmol/L (3.5-5.1)
--- NOTE | 2021-09-19 14:24 | ER ---
Nurse's Notes [facility] Name: Madhavi Michael Age: 55 yrs Sex: Female : 1965 Arrival Date: 09/19/2021 Time: 10:26 Bed 16 Private MD: Halle Shabazz Diagnosis: Edema, unspecified Presentation: 09/19 10:45 Chief complaint: Patient states: "my doctor sent me here to see if I got a blood clot aa5 in my leg". pt c/o melanie lower extremity swelling x 1-2 weeks ago, pt also c/o pain to legs. Pt states "I've been taking furosemide". Coronavirus screen: At this time, the client does not indicate any symptoms associated with coronavirus-19. Ebola Screen: No symptoms or risks identified at this time. Risk Assessment: Do you want to hurt yourself or someone else? Patient reports no desire to harm self or others. Onset of symptoms was August 2021. 10:45 Acuity: SISSY 3 aa5 10:45 Method Of Arrival: Wheelchair aa5 10:45 Initial Sepsis Screen: Does the patient meet any 2 criteria? No. Patient's initial aa5 sepsis screen is negative. Does the patient have a suspected source of infection? No. Patient's initial sepsis screen is negative. Historical: - Allergies: 10:46 NKA; aa5 - PMHx: 10:46 Asthma; Atrial Fib; COPD; CVA; Diabetes - NIDDM; Leaking Veins x2 Right Leg; aa5 neuropathy; sciatica; Sleep Apnea; - Immunization history:: Client reports receiving the 2nd dose of the Covid vaccine. - Social history:: Smoking status: Patient reports the use of cigarette tobacco products, smokes one-half pack cigarettes per day. Screenin:36 Abuse screen: Denies threats or abuse. Nutritional screening: No deficits noted. tw2 Tuberculosis screening: No symptoms or risk factors identified. Fall Risk None identified. Assessment: 11:23 General: Appears in no apparent distress. obese, well groomed, Behavior is calm, tw2 cooperative, appropriate for age. Pain: Complains of pain in right leg. Neuro: Level of Consciousness is awake, alert, obeys commands, Oriented to person, place, time, situation. Cardiovascular: Capillary refill < 3 seconds. Respiratory: Airway is patent Respiratory effort is even, unlabored, Respiratory pattern is regular, symmetrical. Derm: No signs and/or symptoms reported regarding the dermatologic system. Musculoskeletal: Circulation, motion, and sensation intact. Reports pain in right leg. 12:36 Reassessment: Patient appears in no apparent distress at this time. No changes from tw2 previously documented assessment. Patient and/or family updated on plan of care and expected duration. Pain level reassessed. Patient is alert, oriented x 3, equal unlabored respirations, skin warm/dry/pink. 14:30 Reassessment: Patient appears in no apparent distress at this time. No changes from tw2 previously documented assessment. Patient and/or family updated on plan of care and expected duration. Pain level reassessed. Patient is alert, oriented x 3, equal unlabored respirations, skin warm/dry/pink. 15:11 Reassessment: Patient appears in no apparent distress at this time. No changes from tw2 previously documented assessment. Patient and/or family updated on plan of care and expected duration. Pain level reassessed. Patient is alert, oriented x 3, equal unlabored respirations, skin warm/dry/pink. provider at bedside at this time going over results at this time. 15:19 Reassessment: Patient appears in no apparent distress at this time. Patient and/or tw2 family updated on plan of care and expected duration. Pain level reassessed. Patient is alert, oriented x 3, equal unlabored respirations, skin warm/dry/pink. Vital Signs: 10:45 BP 115 / 81; Pulse 82; Resp 20 S; Temp 97.0(TE); Pulse Ox 98% on R/A; Weight 142.88 kg aa5 (R); Height 5 ft. 7 in. (170.18 cm) (R); 12:36 BP 122 / 92; Pulse 74; Resp 17; Pulse Ox 100% on R/A; tw2 14:21 BP 103 / 72; Pulse 54; Resp 17; Pulse Ox 100% on R/A; tw2 15:11 BP 117 / 94; Pulse 70; Resp 17; Pulse Ox 96% on R/A; tw2 10:45 Body Mass Index 49.33 (142.88 kg, 170.18 cm) aa5 ED Course: 10:26 Patient arrived in ED. as 10:26 Halle Shabazz MD is Private Physician. as 10:45 Arm band placed on. aa5 10:46 Triage completed. aa5 10:48 Bed in low position. Call light in reach. Pulse ox on. NIBP on. Warm blanket given. tw2 10:51 Casimiro Causey NP is PHCP. pm1 10:51 Maria Luisa Maki MD is Attending Physician. pm1 11:11 Carmenza Wheatley RN is Primary Nurse. tw2 12:11 Extrem Venous W Compression Melanie US In Process Unspecified. EDMS 13:21 Inserted saline lock: 20 gauge in left antecubital area, using aseptic technique. Blood mt collected. 14:55 Awaiting: provider to go over results with pt PRIOR to discharge. tw2 14:55 IV discontinued, intact, bleeding controlled, No redness/swelling at site. Pressure tw2 dressing applied. 15:11 No provider procedures requiring assistance completed. tw2 Administered Medications: 11:23 Drug: HYDROcodone-acetaminophen 5 mg-325 mg 1 tabs {Note: rass 0.} Route: PO; tw2 15:12 Follow up: Response: No adverse reaction; Pain is decreased; RASS: Alert and Calm (0) tw2 Outcome: 14:24 Discharge ordered by MD. pm1 15:19 Discharged to home via wheelchair. tw2 15:19 Condition: stable 15:19 Discharge instructions given to patient, Instructed on discharge instructions, follow up and referral plans. Demonstrated understanding of instructions, follow-up care. 15:19 Patient left the ED. tw2 Signatures: Dispatcher [employer] EDMS Luiza Castellano Audri, RN RN aa5 Casimiro Causey NP [employer]RIMPING [employer]AT [employer]TAIN pm1 Carmenza Wheatley RN RN tw2 Fiona Barrientos nv Corrections: (The following items were deleted from the chart) 10:47 10:45 142.88 kg Reported; Height 5 ft. 7 in. Reported; BMI: 49.3; aa5 aa5 10:48 10:45 Pulse 82bpm; Resp 20bpm; Spontaneous; Pulse Ox 98% RA; Temp 97.0F Temporal; aa5 142.88 kg Reported; Height 5 ft. 7 in. Reported; BMI: 49.3; aa5 15:11 14:30 Reassessment: Patient appears in no apparent distress at this time. No changes tw2 from previously documented assessment. Patient and/or family updated on plan of care and expected duration. Pain level reassessed. Patient is alert, oriented x 3, equal unlabored respirations, skin warm/dry/pink. provider at bedside at this time going over results at this time tw2
--- NOTE | 2021-09-19 14:24 | EDPHYS ---
Physician Documentation [facility] Name: Madhavi Michael Age: 55 yrs Sex: Female : 1965 Arrival Date: 09/19/2021 Time: 10: Bed 16 Private MD: Halle Shabazz ED Physician Maria Luisa Maki HPI: 09/19 11:02 This 55 yrs old Black Female presents to ER via Wheelchair with complaints of Feet pm1 Swelling. 11:02 The patient presents with pain, swelling. The complaints affect the right leg and left pm1 leg. Context: resulted from an unknown cause, the patient can fully bear weight, the patient is able to ambulate, Patient reports right leg swelling and pain. Left leg swelling no pain. Onset: The symptoms/episode began/occurred Onset on September 01, 2021. 11:02 Modifying factors: The symptoms are alleviated by nothing. the symptoms are aggravated pm1 by nothing. Associated signs and symptoms: Pertinent positives: swelling, Pertinent negatives calf tenderness, numbness, tingling. Treatment prior to arrival includes: Increased Lasix for the past 2 weeks per superintendent quarry, Dr. Ruth. Severity of symptoms: in the emergency department the symptoms are actually worse. The patient has been recently seen by a physician: the patient's primary care provider, Dr. Shabazz. Patient sent to the ER for U/S to rule out DVT. Historical: - Allergies: 10:46 NKA; aa5 - PMHx: 10:46 Asthma; Atrial Fib; COPD; CVA; Diabetes - NIDDM; Leaking Veins x2 Right Leg; aa5 neuropathy; sciatica; Sleep Apnea; - Immunization history:: Client reports receiving the 2nd dose of the Covid vaccine. - Social history:: Smoking status: Patient reports the use of cigarette tobacco products, smokes one-half pack cigarettes per day. ROS: 11:02 Constitutional: Negative for fever, chills, and weight loss, Respiratory: Negative for pm1 shortness of breath, cough, wheezing, and pleuritic chest pain, MS/Extremity: Negative for injury and deformity, Skin: Negative for injury, rash, and discoloration. 11:02 Cardiovascular: Positive for edema, Negative for chest pain. 11:02 All other systems are negative. Exam: 11:02 Constitutional: This is a well developed, well nourished patient who is awake, alert, pm1 and in no acute distress. Head/Face: Normocephalic, atraumatic. 11:02 Skin: Warm, dry with normal turgor. Normal color with no rashes, no lesions, and no evidence of cellulitis. MS/ Extremity: Pulses equal, no cyanosis. Neurovascular intact. Full, normal range of motion. 11:02 Eyes: Exam is negative for acute changes, Periorbital structures: appear normal, Extraocular movements: no acute changes, Conjunctiva: no acute changes, no injection. 11:02 ENT: Exam is negative for acute changes, Mouth: no acute changes, Lips: normal, moist, Oral mucosa: normal, pink and intact, moist. 11:02 Cardiovascular: Exam negative for acute changes, Rate: normal, Rhythm: regular, Pulses: no pulse deficits are appreciated, Heart sounds: normal, normal S1and S2, Edema: 1+ edema to level of left midcalf and left ankle, 2+ edema to level of right midcalf and right ankle. 11:02 Respiratory: Exam negative for acute changes, respiratory distress, shortness of breath. 11:02 Neuro: Exam negative for acute changes, Orientation: is normal, Mentation: is normal, Motor: is normal, moves all fours. Vital Signs: 10:45 BP 115 / 81; Pulse 82; Resp 20 S; Temp 97.0(TE); Pulse Ox 98% on R/A; Weight 142.88 kg aa5 (R); Height 5 ft. 7 in. (170.18 cm) (R); 12:36 BP 122 / 92; Pulse 74; Resp 17; Pulse Ox 100% on R/A; tw2 14:21 BP 103 / 72; Pulse 54; Resp 17; Pulse Ox 100% on R/A; tw2 15:11 BP 117 / 94; Pulse 70; Resp 17; Pulse Ox 96% on R/A; tw2 10:45 Body Mass Index 49.33 (142.88 kg, 170.18 cm) aa5 MDM: 10:51 Patient medically screened. pm1 12:57 Data reviewed: vital signs. Data interpreted: Pulse oximetry: on room air is 100 %. pm1 Interpretation: normal. 14:22 Counseling: I had a detailed discussion with the patient and/or guardian regarding: the pm1 historical points, exam findings, and any diagnostic results supporting the discharge/admit diagnosis, lab results, the need for outpatient follow up, to return to the emergency department if symptoms worsen or persist or if there are any questions or concerns that arise at home. 09/19 13:10 Order name: CMP; Complete Time: 14:21 pm1 09/19 13:10 Order name: CBC with Diff; Complete Time: 13:55 pm1 09/19 11:01 Order name: Extrem Venous W Compression Jaya US; Complete Time: 12:34 pm1 09/19 13:12 Order name: IV Start; Complete Time: 13:22 tw2 Administered Medications: 11:23 Drug: HYDROcodone-acetaminophen 5 mg-325 mg 1 tabs {Note: rass 0.} Route: PO; tw2 15:12 Follow up: Response: No adverse reaction; Pain is decreased; RASS: Alert and Calm (0) tw2 Disposition: 09/20 08:57 Co-signature as Attending Physician, Maria Luisa Maki MD I agree with the assessment and sp3 plan of care. Disposition Summary: 09/19/21 14:24 Discharge Ordered Location: Home pm1 Problem: new pm1 Symptoms: have improved pm1 Condition: Stable pm1 Diagnosis - Edema, unspecified pm1 Followup: pm1 - With: Emergency Department - When: As needed - Reason: Worsening of condition Followup: pm1 - With: Private Physician - When: 2 - 3 days - Reason: Recheck today's complaints, Continuance of care, Re-evaluation by your physician Discharge Instructions: - Discharge Summary Sheet pm1 - Edema pm1 Forms: - Medication Reconciliation Form pm1 - Thank You Letter pm1 - Antibiotic Education pm1 - Prescription Opioid Use pm1 Signatures: Dispatcher [employer] Gracie Reynolds RN RN aa5 Casimiro Causey NP PLUG MAKING OPERATOR pm1 Carmenza Wheatley RN RN tw2 Maria Luisa Maki MD MD sp3
[2021-09-19 15:29] VITALS: TEMP 97
[2021-09-19 15:32] VITALS: BP 117/94; O2SAT 96
== END 2021-09-19 15:19 | disposition home or self-care (01) ==
LOC: ER 10:24
DX: R60.9 Edema, unspecified (principal); F17.210 Nicotine dependence, cigarettes, uncomplicated
CPT/HCPCS: 36415; 80053; 85025; 93970; 99284

== ENCOUNTER 2021-10-14 11:46 | Observation (INO) | payer OTHER ==
--- OUTSIDE RECORDS SUMMARY | 2021-10-14 12:02 | XMS REPORT | Continuity of Care Document ---
:1965 Author Organization [facility] t Address [address] [place] [address] Care Team Providers Name Role Phone Angeles RICH Attending Clinician Unavailable Richardson Attending Clinician Unavailable 2, Lab Attending Clinician Unavailable Jj MARTINEZ L Attending Clinician Doctor Unassigned, Name Attending Clinician Unavailable Violet DONALDSON Attending Clinician Unavailable Brittany PETERSON Attending Clinician Unavailable Liliane Glez MD Attending Clinician LILIANE GLEZ Attending Clinician Unavailable LILIANE GLEZ Attending Clinician Unavailable Nguyễn MARTINEZ L Attending Clinician Richardson Admitting Clinician Unavailable Payers Payer Name Policy Type Policy Number Effective Date Expiration Date Allie muller [facility] [id number] 2015 00:00:00 PLUS Problems Condition Condition Condition Status Onset Resolution Last Treating Co mments Source Name Details Category Date Date Treatment Clinician Date 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 05-01 it y of t status t status 00:00: [place] [facility] Knee pain, Knee pain, Disease Active U nivers right right 4-20 ity of 00:00: [place] 00 [facility] Ileus, Ileus, Disease Active Univers postoperat postoperat 06-03 it y of beckie beckie 00:00: [place] [facility] Abdominal Abdominal Disease Active Uni vers distension distension 05-31 it y of 00:00: [place] [facility] Flank pain Flank pain Disease Active U nivers 7 ity of 00:00: [place] [facility] Morbid Morbid Disease Active Univers obesity obesity 604 ity of 00:00: [place] 00 [facility] Obstructiv Obstructiv Disease Active Overview : Univers e sleep e sleep 604 ICD10 ity of apnea apnea 00:00: Diagnosis 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 Preoperati Preoperati Disease Active U nivers ve ve 4-05 [place] clearance clearance [place] Asthma Asthma Disease Active Overview: Univer s 2-26 ICD10 ity of 00:00: Diagnosis [place] 00 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 Essential Essential Disease Active Overview: Univers hypertensi hypertensi 2-26 ICD10 it y of on on 00:00: Diagnosis [place] 00 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 Type 2 Type 2 Disease Active Overview: Univer s diabetes diabetes 2-26 ICD10 ity of mellitus mellitus 00:00: Diagnosis Mitesh as without without 00 Term Medical complicati complicati Exchange Architect Branch ons ons Utility Excessive Excessive Disease Active Uni vers or or 2-26 ity of frequent frequent 00:00: [place] menstruati menstruati 00 Me dical on on Branch Fibroids Fibroids Disease Active Unive rs 2-26 ity of 00:00: [place] 00 [facility] Allergies, Adverse Reactions, Alerts Allergy Allergy Status Severity Reaction(s) Onset Inactive Treating Comm ents Source Name Type Date Date Clinician No Known DA Active [facility]06 [place] 00:[facility]: [address] No Known DA Active [facility] 9-11 [facility] 00:00: [address] NO KNOWN Drug Active [facility] ALLERGIE Class ity of S [facility] Social History Social Habit Start Date Stop Date Quantity Comments Source History of tobacco Cigarette Smoker University of use [facility] Exposure to Not sure University of SARS-CoV-2 (event) [facility] Cigarettes smoked 2021-03-11 2021-03-11 Univers ity of current (pack per 00:00:00 00:00:00 ) - Reported Branch Cigarette 2021-03-11 2021-03-11 University of pack-years 00:00:00 00:00:00 [facility] Alcohol intake 2021-03-11 2021-03-11 Current University of 00:00:00 00:00:00 non-drinker of [facility] [place] alcohol [place] (finding) Tobacco use and 2021-03-11 2021-03-11 Never used Universit y of exposure 00:00:00 00:00:00 [facility] Tobacco Comment 2021-03-11 2021-03-11 1 pack in 2 days Uni versity of 00:00:00 00:00:00 [facility] Sex Ass[birth year] At [birth year] Universit y of 00:00:00 00:00:00 [facility] Smoking Status Start Date Stop Date Source Unknown if ever smoked [facility] Current every day smoker 2021-03-11 00:00:00 Uni versity of [facility] Medications Ordered Filled Start Stop Current Ordering Indication Dosage Frequency Signature Comments Components Source Medication Medication Date Date Medication? Clinician (SIG) Name Name albuterol-i Yes Inhale 4 Un michael pratropium 4-16 (four) ity of (COMBIVENT 19:52: times [place] INHALER) 21 daily. Medical 18-103 Branch mcg/actuati on inhaler FLUTICASONE Yes 2{puff} Inhale 2 Univers PROPIONATE 4-16 Puffs as ity o f (FLOVENT 19:52: needed. [place] ROTADISK 21 Medical INHALE) Branch Gabapentin, 2020- Yes 600mg 600 mg 3 U nivers Bulk, 100 % 4-16 (three) ity o f Powd 19:52: times [place] 21 daily. Medical Branch amLODIPine Yes 5mg Take 5 mg Un michael (NORVASC) 5 4-16 by mouth ity of mg tablet 19:52: daily. [place] [address] Medical Branch propranolol Yes 40mg Take 40 mg Univers (INDERAL) 4-16 by mouth ity of 40 mg 19:52: daily. [place] tablet 21 Medical Branch aspirin 81 Yes 81mg Take 81 mg U nivers mg chewable 4-16 by mouth ity of tablet 19:52: daily. [place] [address] Medical Branch amitriptyli Yes 10mg Take 10 mg Univers ne (ELAVIL) 4-16 by mouth ity of 10 mg 19:52: at [place] tablet 21 bedtime. Medical Branch simvastatin Yes 20mg Take 20 mg Univers (ZOCOR) 20 4-16 by mouth ity o f mg tablet 19:52: at [place] 21 bedtime. Medical Branch CARVEDILOL Yes 25mg Take 25 mg U nivers ORAL 4-16 by mouth 2 ity of 19:52: (two) [place] 21 times Medical daily. Branch ferrous Yes 325mg Take 325 Unive rs sulfate 325 4-16 mg by ity of mg (65 mg 19:52: mouth [place] iron) 21 daily. Medical tablet Branch APIXABAN Yes Take by Unive rs (ELIQUIS 4-16 mouth. ity of ORAL) 19:52: [place] 21 Medical Branch fluticasone Yes Inhale. Uni vers -vilanterol 4-16 ity of (BREO 19:52: [place] ELLIPTA) 21 Medical 100-25 Branch mcg/dose DsDv albuterol-i Yes Inhale 4 Un michael pratropium 4-16 (four) ity of (COMBIVENT 19:52: times [place] INHALER) 21 daily. Medical 18-103 Branch mcg/actuati on inhaler FLUTICASONE Yes 2{puff} Inhale 2 Univers PROPIONATE 4-16 Puffs as ity o f (FLOVENT 19:52: needed. [place] ROTADISK 21 Medical INHALE) Branch Gabapentin, Yes 600mg 600 mg 3 U nivers Bulk, 100 % 4-16 (three) ity o f Powd 19:52: times [place] 21 daily. Medical Branch amLODIPine Yes 5mg Take 5 mg Un michael (NORVASC) 5 4-16 by mouth ity of mg tablet 19:52: daily. [place] [address] Medical Branch propranolol Yes 40mg Take 40 mg Univers (INDERAL) 4-16 by mouth ity of 40 mg 19:52: daily. [place] tablet 21 Medical Branch aspirin 81 Yes 81mg Take 81 mg U nivers mg chewable 4-16 by mouth ity of tablet 19:52: daily. [place] [address] Medical Branch amitriptyli Yes 10mg Take 10 mg Univers ne (ELAVIL) 4-16 by mouth ity of 10 mg 19:52: at [place] tablet 21 bedtime. Medical Branch simvastatin Yes 20mg Take 20 mg Univers (ZOCOR) 20 4-16 by mouth ity o f mg tablet 19:52: at [place] 21 bedtime. Medical Branch CARVEDILOL Yes 25mg Take 25 mg U nivers ORAL 4-16 by mouth 2 ity of 19:52: (two) [place] 21 times Medical daily. Branch ferrous Yes 325mg Take 325 Unive rs sulfate 325 4-16 mg by ity of mg (65 mg 19:52: mouth [place] iron) 21 daily. Medical tablet Branch APIXABAN Yes Take by Unive rs (ELIQUIS 4-16 mouth. ity of ORAL) 19:52: [place] 21 Medical Branch fluticasone Yes Inhale. Uni vers -vilanterol 4-16 ity of (BREO 19:52: [place] ELLIPTA) 21 Medical 100-25 Branch mcg/dose DsDv albuterol-i Yes Inhale 4 Un michael pratropium 4-16 (four) ity of (COMBIVENT 19:52: times [place] INHALER) 21 daily. Medical 18-103 Branch mcg/actuati on inhaler FLUTICASONE Yes 2{puff} Inhale 2 Univers PROPIONATE 4-16 Puffs as ity o f (FLOVENT 19:52: needed. [place] ROTADISK 21 Medical INHALE) Branch Gabapentin, Yes 600mg 600 mg 3 U nivers Bulk, 100 % 4-16 (three) ity o f Powd 19:52: times [place] 21 daily. Medical Branch amLODIPine Yes 5mg Take 5 mg Un michael (NORVASC) 5 4-16 by mouth ity of mg tablet 19:52: daily. [place] [address] Medical Branch propranolol 0 Yes 40mg Take 40 mg Univers (INDERAL) 4-16 by mouth ity of 40 mg 19:52: daily. [place] tablet 21 Medical Branch aspirin 81 0 Yes 81mg Take 81 mg U nivers mg chewable 4-16 by mouth ity of tablet 19:52: daily. [place] [address] Medical Branch amitriptyli Yes 10mg Take 10 mg Univers ne (ELAVIL) 4-16 by mouth ity of 10 mg 19:52: at [place] tablet 21 bedtime. Medical Branch simvastatin Yes 20mg Take 20 mg Univers (ZOCOR) 20 4-16 by mouth ity o f mg tablet 19:52: at [place] 21 bedtime. Medical Branch CARVEDILOL Yes 25mg Take 25 mg U nivers ORAL 4-16 by mouth 2 ity of 19:52: (two) [place] 21 times Medical daily. Branch ferrous Yes 325mg Take 325 Unive rs sulfate 325 4-16 mg by ity of mg (65 mg 19:52: mouth [place] iron) 21 daily. Medical tablet Branch APIXABAN Yes Take by Unive rs (ELIQUIS 4-16 mouth. ity of ORAL) 19:52: [place] 21 Medical Branch fluticasone Yes Inhale. Uni vers -vilanterol 4-16 ity of (BREO 19:52: [place] ELLIPTA) 21 Medical 100-25 Branch mcg/dose DsDv amoxicillin Yes Univer s 500 mg 4-14 ity of capsule 00:00: [place] 00 Medical Branch amoxicillin 0 Yes Univer s 500 mg 4-14 ity of capsule 00:00: [place] 00 Medical Branch amoxicillin 2020-0 Yes Univer s 500 mg 4-14 ity of capsule 00:00: [place] 00 Medical Branch HYDROcodone 2020-0 Yes 1{tbl} Take 1 Un michael -acetaminop 4-07 tablet by ity of hen 10-325 00:00: mouth 3 [place] mg tablet 00 (three) Medical times Branch daily. HYDROcodone 2020-0 Yes 1{tbl} Take 1 Un [place]ichael -acetaminop 4-07 tablet by ity of hen 10-325 00:00: mouth 3 [place] mg tablet 00 (three) Medical times Branch daily. HYDROcodone 2021-0 Yes 1{tbl} Take 1 Un michael -acetaminop 4-07 tablet by ity of hen 10-325 00:00: mouth 3 [place] mg tablet 00 (three) Medical times Branch daily. spironolact 2020-0 Yes 25mg Take 25 mg Univers one 25 mg 4-05 by mouth 2 ity of tablet 00:00: (two) 00 times Medical daily. Branch spironolact 2021-0 Yes 25mg Take 25 mg Univers one 25 mg 4-05 by mouth 2 ity of tablet 00:00: (two) times Medical daily. Branch spironolact 2020-0 Yes 25mg Take 25 mg Univers one 25 mg 4-05 by mouth 2 ity of tablet 00:00: (two) times Medical daily. Branch Tizanidine Tizanidine 2019-0 2020- No Na [facility] [address] [facility] HCl HCl 07-06 [facility] gadobenate 2019-0 2020- No .2mL/kg 0.2 mL/kg, Univers dimeglumine 06-01 Intravenou i ty of (MULTIHANCE 18:30: 18:30 s, ONCE, 1 [place] -20 mL) 00 :00 dose, Tue Medical injection 06/01/20 at [facility] h 0.2 mL/kg 1330, Routine diazePAM 5 2019-0 Yes [id number] 5mg Take 1 U nivers mg tablet 7-03 tablet by ity o f 00:00: mouth 2 (two) Medical times Branch daily. May take both befor the MRI diazePAM 5 2019-0 Yes [id number] 5mg Take 1 U nivers mg tablet 7-03 tablet by ity o f 00:00: mouth 2 (two) Medical times Branch daily. May take both befor the MRI diazePAM 5 2019-0 Yes [id number] 5mg Take 1 U nivers mg tablet 7-03 tablet by ity o f 00:00: mouth 2 (two) Medical times Branch daily. May take both befor the MRI diazePAM 5 2020-0 Yes [id number] 5mg Take 1 U nivers mg tablet 7-03 tablet by ity o f 00:00: mouth 2 (two) Medical times Branch daily. May take both befor the MRI diazePAM 5 2020-0 Yes [id number] 5mg Take 1 U nivers mg tablet 7-03 tablet by ity o f 00:00: mouth 2 (two) Medical times Branch daily. May take both befor the MRI diazePAM 5 2020-0 Yes [id number] 5mg Take 1 U nivers mg tablet 7-03 tablet by ity o f 00:00: mouth 2 (two) Medical times Branch daily. May take both befor the MRI diazePAM 5 2020-0 Yes [id number] 5mg Take 1 U nivers mg tablet 7-03 tablet by ity o f 00:00: mouth 2 (two) Medical times Branch daily. May take both befor the MRI diazePAM 5 2020-0 Yes [id number] 5mg Take 1 U nivers mg tablet 7-03 tablet by ity o f 00:00: mouth 2 (two) Medical times Branch daily. May take both befor the MRI cyclobenzap 2019-0 Yes [id number] 10mg Take 1 Univers rine 10 mg 8-15 tablet by ity of tablet 00:00: mouth 3 (three) Medical times Branch daily. cyclobenzap 2019-0 Yes [id number] 10mg Take 1 Univers rine 10 mg 8-15 tablet by ity of tablet 00:00: mouth 3 (three) Medical times Branch daily. cyclobenzap 2019-0 Yes [id number] 10mg Take 1 Univers rine 10 mg 8-15 tablet by ity of tablet 00:00: mouth 3 00 (three) Medical times Branch daily. cyclobenzap 2019-0 Yes [id number] 10mg Take 1 Univers rine 10 mg 8-15 tablet by ity of tablet 00:00: mouth 3 00 (three) Medical times Branch daily. cyclobenzap 2019-0 Yes [id number] 10mg Take 1 Univers rine 10 mg 8-15 tablet by ity of tablet 00:00: mouth 3 00 (three) Medical times Branch daily. cyclobenzap 2019-0 Yes [id number] 10mg Take 1 Univers rine 10 mg 8-15 tablet by ity of tablet 00:00: mouth 3 [place] ([facility]) Medical times Branch daily. cyclobenzap 2019-0 Yes [id number] 10mg Take 1 Univers rine 10 mg 8-15 tablet by ity of tablet 00:00: mouth 3 [place] ([facility]) Medical times Branch daily. cyclobenzap 2019-0 Yes [id number] 10mg Take 1 Univers rine 10 mg 8-15 tablet by ity of tablet 00:00: mouth [place] ([facility]) Medical times Branch daily. cyclobenzap 2019-0 Yes [id number] 10mg Take 1 Univers rine 10 mg 8-15 tablet by ity of tablet 00:00: mouth [address] [place] [address] ([facility]) Medical times [place] daily. cyclobenzap 2019-0 Yes [id number] 10mg Take 1 Univers rine 10 mg 8-15 tablet by ity of tablet 00:00: mouth [place] ([facility]) Medical times [place] daily. cyclobenzap 2018-0 Yes [id number] 10mg Take 1 Univers rine 10 mg 8-15 tablet by ity of tablet 00:00: mouth [place] ([facility]) Medical times Branch daily. cyclobenzap 2019-0 Yes [id number] 10mg Take 1 Univers rine 10 mg 8-15 tablet by ity of tablet 00:00: mouth [address] [place] [address] ([facility]) Medical times Branch daily. cyclobenzap 2018-0 Yes [id number] 10mg Take 1 Univers rine 10 mg 8-15 tablet by ity of tablet 00:00: mouth [address] [place] [address] ([facility]) Medical times Branch daily. cyclobenzap 2019-0 Yes [id number] 10mg Take 1 Univers rine 10 mg 8-15 tablet by ity of tablet 00:00: mouth [place] ([facility]) Medical times Branch daily. cyclobenzap 2019-0 Yes [id number] 10mg Take 1 Univers rine 10 mg 8-15 tablet by ity of tablet 00:00: mouth 3 [place] ([facility]) Medical times Branch daily. methylPREDN 2019-0 Yes [id number] Take by Univers ISolone 7-10 mouth ity of (MEDROL, 00:00: SEE-INSTRU Mitesh as TIMOTHY,) 4 mg 00 CTIONS. Medica l tablets follow Branch package directions methylPREDN 2019-0 Yes [id number] Take by Univers ISolone 7-10 mouth ity of (MEDROL, 00:00: SEE-INSTRU Mitesh as TIMOTHY,) 4 mg 00 CTIONS. Medica l tablets follow Branch package directions methylPREDN 2019-0 Yes [id number] Take by Univers ISolone 7-10 mouth ity of (MEDROL, 00:00: SEE-INSTRU Mitesh as TIMOTHY,) 4 mg 00 CTIONS. Medica l tablets follow Branch package directions methylPREDN 2019-0 Yes [id number] Take by Univers ISolone 7-10 mouth ity of (MEDROL, 00:00: SEE-INSTRU Mitesh as TIMOTHY,) 4 mg 00 CTIONS. Medica l tablets follow Branch package directions methylPREDN 2019-0 Yes [id number] Take by Univers ISolone 7-10 mouth ity of (MEDROL, 00:00: SEE-INSTRU Mitesh as TIMOTHY,) 4 mg 00 CTIONS. Medica l tablets follow Branch package directions methylPREDN 2019-0 Yes [id number] Take by Univers ISolone 7-10 mouth ity of (MEDROL, 00:00: SEE-INSTRU Mitesh as TIMOTHY,) 4 mg 00 CTIONS. Medica l tablets follow Branch package directions methylPREDN 2019-0 Yes [id number] Take by Univers ISolone 7-10 mouth ity of (MEDROL, 00:00: SEE-INSTRU Mitesh as TIMOTHY,) 4 mg 00 CTIONS. Medica l tablets follow Branch package directions methylPREDN 2019-0 Yes [id number] Take by Univers ISolone 7-10 mouth ity of (MEDROL, 00:00: SEE-INSTRU Mitesh as TIMOTHY,) 4 mg 00 CTIONS. Medica l tablets follow Branch package directions methylPREDN 2019-0 Yes [id number] Take by Univers ISolone 7-10 mouth ity of (MEDROL, 00:00: SEE-INSTRU Mitesh as TIMOTHY,) 4 mg 00 CTIONS. Medica l tablets follow Branch package directions methylPREDN 2019-0 Yes [id number] Take by Univers ISolone 7-10 mouth ity of (MEDROL, 00:00: SEE-INSTRU Mitesh as TIMOTHY,) 4 mg 00 CTIONS. Medica l tablets follow Branch package directions methylPREDN 2019-0 Yes [id number] Take by Univers ISolone 7-10 mouth ity of (MEDROL, 00:00: SEE-INSTRU Mitesh as TIMOTHY,) 4 mg 00 CTIONS. Medica l tablets follow Branch package directions methylPREDN 2019-0 Yes [id number] Take by Univers ISolone 7-10 mouth ity of (MEDROL, 00:00: SEE-INSTRU Mitesh as TIMOTHY,) 4 mg 00 CTIONS. Medica l tablets follow Branch package directions methylPREDN 2019-0 Yes [id number] Take by Univers ISolone 7-10 mouth ity of (MEDROL, 00:00: SEE-INSTRU Mitesh as TIMOTHY,) 4 mg 00 CTIONS. Medica l tablets follow Branch package directions methylPREDN 2019-0 Yes [id number] Take by Univers ISolone 7-10 mouth ity of (MEDROL, 00:00: SEE-INSTRU Mitesh as TIMOTHY,) 4 mg 00 CTIONS. Medica l tablets follow Branch package directions methylPREDN 2019-0 Yes [id number] Take by Univers ISolone 7-10 mouth ity of (MEDROL, 00:00: SEE-INSTRU Mitesh as TIMOTHY,) 4 mg 00 CTIONS. Medica l tablets follow Branch package directions cyclobenzap 2019-0 Yes [id number] 10mg Take 1 Univers rine 10 mg 7-10 tablet by ity of tablet 00:00: mouth 3 [place] 00 (three) Medical times Branch daily. methylPREDN 2018-0 Yes [id number] Take by Univers ISolone 7-10 mouth ity of (MEDROL, 00:00: SEE-INSTRU Mitesh as TIMOTHY,) 4 mg 00 CTIONS. Medica l tablets follow Branch package directions cyclobenzap 2019- No [id number] 10mg Take 1 Univers rine 10 mg 7-10 08-15 tablet by ity of tablet 00:00: 00:00 mouth 3 [place] 00 :00 (three) Medical times Branch daily. APIXABAN 2016-11 Yes Take by [facility] rs (ELIQUIS 1-03 mouth. ity of ORAL) 16:13: [place] [address] Medical Branch fluticasone 2016-11 Yes Inhale. Uni vers -vilanterol 1-03 ity of (BREO 16:13: [place] [facility]25 Branch mcg/dose DsDv APIXABAN 2016-11 Yes Take [facility] [place] [facility] (ELIQUIS 1-03 mouth. ity of ORAL) 16:13: [place] 59 Medical Branch fluticasone 2017- Yes Inhale. Uni vers -vilanterol 1-03 ity of (BREO 16:13: [place] ELLIPTA) 59 Medical 100-25 Branch mcg/dose DsDv APIXABAN 2017- Yes Take by Unive rs (ELIQUIS 1-03 mouth. ity of ORAL) 16:13: [place] [address] Medical Branch fluticasone 2017- Yes Inhale. Uni vers -vilanterol 1-03 ity of (BREO 16:13: [place] ELLIPTA) 59 Medical 100-25 Branch mcg/dose DsDv APIXABAN 2017- Yes Take by Unive rs (ELIQUIS 1-03 mouth. ity of ORAL) 16:13: [place] [address] Medical Branch fluticasone 2017- Yes Inhale. Uni vers -vilanterol 1-03 ity of (BREO 16:13: [place] ELLIPTA) 59 Medical 100-25 Branch mcg/dose DsDv APIXABAN 2017 Yes Take by Unive rs (ELIQUIS 1-03 mouth. ity of ORAL) 16:13: [place] [address] Medical Branch fluticasone 2017- Yes Inhale. Uni vers -vilanterol 1-03 ity of (BREO 16:13: [place] ELLIPTA) 59 Medical 100-25 Branch mcg/dose DsDv APIXABAN 2017- Yes Take by Unive rs (ELIQUIS 1-03 mouth. ity of ORAL) 16:13: [place] [address] Medical Branch fluticasone 2017 Yes Inhale. Uni vers -vilanterol 1-03 ity of (BREO 16:13: [place] ELLIPTA) 59 Medical 100-25 Branch mcg/dose DsDv APIXABAN 2017- Yes Take by Unive rs (ELIQUIS 1-03 mouth. ity of ORAL) 16:13: [place] [address] Medical Branch fluticasone 2017- Yes Inhale. Uni vers -vilanterol 1-03 ity of (BREO 16:13: [place] ELLIPTA) 59 Medical 100-25 Branch mcg/dose DsDv APIXABAN 2017- Yes Take by Unive rs (ELIQUIS 1-03 mouth. ity of ORAL) 16:13: [place] [address] Medical Branch fluticasone 2017- Yes Inhale. Uni vers -vilanterol 1-03 ity of (BREO 16:13: [place] ELLIPTA) 59 Medical 100-25 Branch mcg/dose DsDv APIXABAN 2017- Yes Take by Unive rs (ELIQUIS 1-03 mouth. ity of ORAL) 16:13: [place] 59 Medical Branch fluticasone 2017- Yes Inhale. Uni vers -vilanterol 1-03 ity of (BREO 16:13: [place] ELLIPTA) 59 Medical 100-25 Branch mcg/dose DsDv APIXABAN 2017- Yes Take by Unive rs (ELIQUIS 1-03 mouth. ity of ORAL) 16:13: [place] [address] Medical Branch fluticasone 2017- Yes Inhale. Uni vers -vilanterol 1-03 ity of (BREO 16:13: [place] ELLIPTA) 59 Medical 100-25 Branch mcg/dose DsDv APIXABAN 2017 Yes Take by Unive rs (ELIQUIS 1-03 mouth. ity of ORAL) 16:13: [place] [address] Medical Branch fluticasone 2017- Yes Inhale. Uni vers -vilanterol 1-03 ity of (BREO 16:13: [place] ELLIPTA) 59 Medical 100-25 Branch mcg/dose DsDv APIXABAN 2017- Yes Take by Unive rs (ELIQUIS 1-03 mouth. ity of ORAL) 16:13: [place] [address] Medical Branch fluticasone 2017- Yes Inhale. Uni vers -vilanterol 1-03 ity of (BREO 16:13: [place] ELLIPTA) 59 Medical 100-25 Branch mcg/dose DsDv APIXABAN 2017- Yes Take by Unive rs (ELIQUIS 1-03 mouth. ity of ORAL) 16:13: [place] [address] Medical Branch fluticasone 2017- Yes Inhale. Uni vers -vilanterol 1-03 ity of (BREO 16:13: [place] ELLIPTA) 59 Medical 100-25 Branch mcg/dose DsDv APIXABAN 2017- Yes Take by Unive rs (ELIQUIS 1-03 mouth. ity of ORAL) 16:13: [place] [address] Medical Branch fluticasone 2017 Yes Inhale. Uni vers -vilanterol 1-03 ity of (BREO 16:13: [place] ELLIPTA) 59 Medical 100-25 Branch mcg/dose DsDv levoFLOXaci 2017- Yes Univer s n 500 mg 0-30 ity of tablet 00:00: [place] 00 Medical Branch penicillin 2017- Yes Univers v potassium 0-30 ity of 500 mg 00:00: [place] tablet 00 Medical Branch levoFLOXaci 2016-11 Yes Univer s n 500 mg 0-30 ity of tablet 00:00: [place] [facility] penicillin 2017 Yes Univers v potassium 0-30 ity of 500 mg 00:00: [place] tablet 00 Medical Branch levoFLOXaci 2017 Yes Univer s n 500 mg 0-30 ity of tablet 00:00: [place] [facility] penicillin 2017 Yes Univers v potassium 0-30 ity of 500 mg 00:00: [place] tablet 00 Medical Branch levoFLOXaci 2017 Yes Univer s n 500 mg 0-30 ity of tablet 00:00: [place] [facility] penicillin 2017 Yes Univers v potassium 0-30 ity of 500 mg 00:00: [place] tablet Medical Branch levoFLOXaci 2017 Yes Univer s n 500 mg 0-30 ity of tablet 00:00: [place] [facility] penicillin 2017 Yes Univers v potassium 0-30 ity of 500 mg 00:00: [place] tablet 00 Medical Branch levoFLOXaci 2017 Yes Univer s n 500 mg 0-30 ity of tablet 00:00: [place] [facility] penicillin 2017 Yes Univers v potassium 0-30 ity of 500 mg 00:00: [place] tablet 00 Medical Branch levoFLOXaci 2017 Yes Univer s n 500 mg 0-30 ity of tablet 00:00: [place] 00 Medical Branch penicillin 2017 Yes Univers v potassium 0-30 ity of 500 mg 00:00: [place] tablet 00 Medical Branch levoFLOXaci 2017 Yes Univer s n 500 mg 0-30 ity of tablet 00:00: [place] 00 Medical Branch penicillin 2017- Yes Univers v potassium 0-30 ity of 500 mg 00:00: [place] tablet 00 Medical Branch levoFLOXaci 2017 Yes Univer s n 500 mg 0-30 ity of tablet 00:00: [place] [facility] penicillin 2017 Yes Univers v potassium 0-30 ity of 500 mg 00:00: [place] tablet 00 Medical Branch levoFLOXaci 2017 Yes Univer s n 500 mg 0-30 ity of tablet 00:00: [place] 00 Medical Branch penicillin 2017- Yes Univers v potassium 0-30 ity of 500 mg 00:00: [place] tablet 00 Medical Branch levoFLOXaci 2017- Yes Univer s n 500 mg 0-30 ity of tablet 00:00: [place] 00 Medical Branch penicillin 2017- Yes Univers v potassium 0-30 ity of 500 mg 00:00: [place] tablet 00 Medical Branch levoFLOXaci 2017- Yes Univer s n 500 mg 0-30 ity of tablet 00:00: [place] 00 Medical Branch penicillin 2017- Yes Univers v potassium 0-30 ity of 500 mg 00:00: [place] tablet 00 Medical Branch levoFLOXaci 2017- Yes Univer s n 500 mg 0-30 ity of tablet 00:00: [place] 00 Medical Branch penicillin 2017- Yes Univers v potassium 0-30 ity of 500 mg 00:00: [place] tablet 00 Medical Branch levoFLOXaci 2017 Yes Univer s n 500 mg 0-30 ity of tablet 00:00: [place] 00 Medical Branch levoFLOXaci 2017- Yes Univer s n 500 mg 0-30 ity of tablet 00:00: [place] 00 Medical Branch penicillin 2017- Yes Univers v potassium 0-30 ity of 500 mg 00:00: [place] tablet 00 [facility] penicillin 2017- Yes [facility] potassium 0-30 ity of 500 mg 00:00: [place] tablet 00 [facility] levoFLOXaci 2017- Yes [facility] n 500 mg 0-30 ity of tablet 00:00: [place] 00 [facility] penicillin 2017- Yes [facility] v potassium 0-30 ity of 500 mg 00:00: [place] tablet 00 [facility] levoFLOXaci 2017- Yes [facility] n 500 mg 0-30 ity of tablet 00:00: [place] 00 [facility] penicillin 2017- Yes [facility] v potassium 0-30 ity of 500 mg 00:00: [place] tablet 00 [facility] lidocaine 5 2016- Yes [facility]iver [facility] % ointment 0-17 ity of 00:00: [place] 00 [facility] lidocaine 5 2016-11 Yes [facility] % ointment 0-17 ity of 00:00: [place] 00 [facility] lidocaine 5 2016-11 Yes [facility]iver s % ointment 0-17 ity of 00:00: [place] 00 [facility] lidocaine 5 2016- Yes [facility]iver [facility] % ointment 0-17 ity of 00:00: [place] 00 [facility] lidocaine 5 2016-11 Yes [facility]iver s % ointment 0-17 ity of 00:00: [place] 00 [facility] lidocaine 5 2016-11 Yes [facility]iver s % ointment 0-17 ity of 00:00: [place] 00 [facility] lidocaine 5 2016-11 Yes Univer s % ointment 0-17 ity of 00:00: [place] 00 [facility] lidocaine 5 2016-11 Yes [facility] s % ointment 0-17 ity of 00:00: [place] 00 [facility] lidocaine 5 2016-11 Yes Univer s % ointment 0-17 ity of 00:00: [place] 00 [facility] lidocaine 5 2016-11 Yes Univer s % ointment 0-17 ity of 00:00: [place] 00 [facility] lidocaine 5 2016-11 Yes Univer s % ointment 0-17 ity of 00:00: [place] 00 [facility] lidocaine 5 2016-11 Yes [facility]iver s % ointment 0-17 ity of 00:00: [place] 00 [facility] lidocaine 5 2016-11 Yes Univer s % ointment 0-17 ity of 00:00: [place] 00 [facility] lidocaine 5 2016-11 Yes Univer s % ointment 0-17 ity of 00:00: [place] 00 [facility] lidocaine 5 2016-11 Yes [facility]iver s % ointment 0-17 ity of 00:00: [place] 00 [facility] lidocaine 5 2016-11 Yes [facility]iver [facility] % ointment 0-17 ity of 00:00: [place] 00 [facility] lidocaine 5 2016-11 Yes Univer s % ointment 0-17 ity of 00:00: [place] 00 [facility] albuterol-i Yes Inhale 4 [facility] pratropium 8-10 (four) ity of (COMBIVENT 13:38: times [place] INHALER) 04 daily. Medical 18-103 Branch mcg/actuati on inhaler FLUTICASONE 2016- Yes 2{puff} Inhale 2 [facility] PROPIONATE 8-10 Puffs as ity o f (FLOVENT 13:38: needed. [place] ROTADISK 04 Medical INHALE) Branch Gabapentin, 2017- Yes 600mg 600 mg 3 U nivers Bulk, 100 % 8-10 (three) ity o f Powd 13:38: times [place] 04 daily. [facility] amLODIPine Yes 5mg Take 5 mg [facility] (NORVASC) 5 8-10 by mouth ity of mg tablet 13:38: daily. [place] [address] [facility] propranolol 2017- Yes 40mg Take 40 mg [facility] (INDERAL) 8-10 by mouth ity of 40 mg 13:38: daily. [place] tablet [facility] aspirin 81 2017 Yes 81mg Take 81 mg U nivers mg chewable 8-10 by mouth ity of tablet 13:38: daily. [place] [address] [facility] amitriptyli Yes 10mg Take 10 mg [facility] ne (ELAVIL) 8-10 by mouth ity of 10 mg 13:38: at [place] tablet 04 bedtime. [facility] simvastatin 2017 Yes 20mg Take 20 mg [facility] (ZOCOR) 20 8-10 by mouth ity o f mg tablet 13:38: at [place] bedtime. [facility] albuterol-i Yes Inhale 4 [facility] pratropium 8-10 (four) ity of (COMBIVENT 13:38: times [place] INHALER) 04 daily. Medical 18-103 Branch mcg/actuati on inhaler FLUTICASONE Yes 2{puff} Inhale 2 [facility] PROPIONATE 8-10 Puffs as ity o f (FLOVENT 13:38: needed. [place] ROTADISK Medical INHALE) Branch Gabapentin, 2017 Yes 600mg 600 mg 3 U nivers Bulk, 100 % 8-10 (three) ity o f Powd 13:38: times [place] 04 daily. [facility] amLODIPine 2017 Yes 5mg Take 5 mg [facility] (NORVASC) 5 8-10 by mouth ity of mg tablet 13:38: daily. [place] [address] [facility] propranolol 2017 Yes 40mg Take 40 mg [facility] (INDERAL) 8-10 by mouth ity of 40 mg 13:38: daily. [place] tablet [facility] aspirin 81 2017 Yes 81mg Take 81 mg U nivers mg chewable 8-10 by mouth ity of tablet 13:38: daily. [place] [address] [facility] amitriptyli Yes 10mg Take 10 mg [facility] ne (ELAVIL) 8-10 by mouth ity of 10 mg 13:38: at [place] tablet 04 bedtime. [facility] simvastatin 2017-0 Yes 20mg Take 20 mg [facility] (ZOCOR) 20 8-10 by mouth ity o f mg tablet 13:38: at [place] 04 bedtime. [facility] albuterol-i 2017-0 Yes Inhale 4 [facility] pratropium 8-10 (four) ity of (COMBIVENT 13:38: times [place] INHALER) 04 daily. Medical 18-103 Branch mcg/actuati on inhaler FLUTICASONE 2017-0 Yes 2{puff} Inhale 2 [facility] PROPIONATE 8-10 Puffs as ity o f (FLOVENT 13:38: needed. [place] ROTADISK 04 Medical INHALE) Branch Gabapentin, 2017-0 Yes 600mg 600 mg 3 U nivers Bulk, 100 % 8-10 (three) ity o f Powd 13:38: times [place] 04 daily. [facility] amLODIPine 2017 Yes 5mg Take 5 mg [facility] (NORVASC) 5 8-10 by mouth ity of mg tablet 13:38: daily. [place] [address] [facility] propranolol [address] Yes 40mg Take 40 mg [facility] (INDERAL) 8-10 by mouth ity of 40 mg 13:38: daily. [place] [address] [facility] aspirin 81 2017 Yes 81mg Take 81 mg U nivers mg chewable 8-10 by mouth ity of tablet 13:38: daily. [place] [address] [facility] amitriptyli 0 Yes 10mg Take 10 mg [facility] ne (ELAVIL) 8-10 by mouth ity of 10 mg 13:38: at [place] tablet 04 bedtime. [facility] simvastatin 2017 Yes 20mg Take 20 mg [facility] (ZOCOR) 20 8-10 by mouth ity o f mg tablet 13:38: at [place] 04 bedtime. [facility] albuterol-i 20170 Yes Inhale 4 [facility] pratropium 8-10 (four) ity of (COMBIVENT 13:38: times [place] INHALER) 04 daily. Medical 18-103 Branch mcg/actuati on inhaler FLUTICASONE 2017-0 Yes 2{puff} Inhale 2 [facility] PROPIONATE 8-10 Puffs as ity o f (FLOVENT 13:38: needed. [place] ROTADISK 04 Medical INHALE) Branch Gabapentin, 2017-0 Yes 600mg 600 mg 3 U nivers Bulk, 100 % 8-10 (three) ity o f Powd 13:38: times [place] 04 daily. [facility] amLODIPine 2017 Yes 5mg Take 5 mg [facility] (NORVASC) 5 8-10 by mouth ity of mg tablet 13:38: daily. [place] [address] [facility] propranolol 2017 Yes 40mg Take 40 mg [facility] (INDERAL) 8-10 by mouth ity of 40 mg 13:38: daily. [place] tablet [facility] aspirin 81 2017 Yes 81mg Take 81 mg U nivers mg chewable 8-10 by mouth ity of tablet 13:38: daily. [facility] amitriptyli 2017 Yes 10mg Take 10 mg [facility] ne (ELAVIL) 8-10 by mouth ity of 10 mg 13:38: at [place] tablet 04 bedtime. [facility] simvastatin Yes 20mg Take 20 mg [facility] (ZOCOR) 20 8-10 by mouth ity o f mg tablet 13:38: at [place] bedtime. [facility] CARVEDILOL Yes 25mg Take 25 mg U nivers ORAL 8-10 by mouth 2 ity of 13:38: (two) [place] 04 times Medical daily. Branch ferrous 2017 Yes 325mg Take 325 Unive rs sulfate 325 8-10 mg by ity of mg (65 mg 13:38: mouth [place] iron) 04 daily. Medical tablet Branch albuterol-i Yes Inhale 4 [facility] pratropium 8-10 (four) ity of (COMBIVENT 13:38: times [place] INHALER) 04 daily. Medical 18-103 Branch mcg/actuati on inhaler FLUTICASONE 2017 Yes 2{puff} Inhale 2 [facility] PROPIONATE 8-10 Puffs as ity o f (FLOVENT 13:38: needed. [place] ROTADISK 04 Medical INHALE) Branch Gabapentin, 2017- Yes 600mg 600 mg 3 U nivers Bulk, 100 % 8-10 (three) ity o f Powd 13:38: times [place] 04 daily. [facility] amLODIPine Yes 5mg Take 5 mg [facility] (NORVASC) 5 8-10 by mouth ity of mg tablet 13:38: daily. [place] [address] [facility] propranolol Yes 40mg Take 40 mg [facility] (INDERAL) 8-10 by mouth ity of 40 mg 13:38: daily. [place] tablet [facility] aspirin 81 2017 Yes 81mg Take 81 mg U nivers mg chewable 8-10 by mouth ity of tablet 13:38: daily. [place] [address] [facility] amitriptyli 2017 Yes 10mg Take 10 mg [facility] ne (ELAVIL) 8-10 by mouth ity of 10 mg 13:38: at [place] tablet 04 bedtime. [facility] simvastatin 2017 Yes 20mg Take 20 mg [facility] (ZOCOR) 20 8-10 by mouth ity o f mg tablet 13:38: at [place] bedtime. [facility] CARVEDILOL 2017 Yes 25mg Take 25 mg U nivers ORAL 8-10 by mouth 2 ity of 13:38: (two) [place] times Medical daily. Branch ferrous 2017 Yes 325mg Take 325 Unive rs sulfate 325 8-10 mg by ity of mg (65 mg 13:38: mouth [place] iron) 04 daily. Medical tablet Branch albuterol-i Yes Inhale 4 [facility] pratropium 8-10 (four) ity of (COMBIVENT 13:38: times [place] INHALER) 04 daily. Medical 18-103 Branch mcg/actuati on inhaler FLUTICASONE 2017 Yes 2{puff} Inhale 2 [facility] PROPIONATE 8-10 Puffs as ity o f (FLOVENT 13:38: needed. [place] ROTADISK Medical INHALE) Branch Gabapentin, 2017 Yes 600mg 600 mg 3 U nivers Bulk, 100 % 8-10 (three) ity o f Powd 13:38: times [place] 04 daily. [facility] amLODIPine 2017 Yes 5mg Take 5 mg [facility] (NORVASC) 5 8-10 by mouth ity of mg tablet 13:38: daily. [place] [address] [facility] propranolol 2017 Yes 40mg Take 40 mg [facility] (INDERAL) 8-10 by mouth ity of 40 mg 13:38: daily. [place] tablet [facility] aspirin 81 2017 Yes 81mg Take 81 mg U nivers mg chewable 8-10 by mouth ity of tablet 13:38: daily. [place] [address] [facility] amitriptyli Yes 10mg Take 10 mg [facility] ne (ELAVIL) 8-10 by mouth ity of 10 mg 13:38: at [place] tablet 04 bedtime. [facility] simvastatin 2017 Yes 20mg Take 20 mg [facility] (ZOCOR) 20 8-10 by mouth ity o f mg tablet 13:38: at [place] 04 bedtime. [facility] CARVEDILOL 2017 Yes 25mg Take 25 mg U nivers ORAL 8-10 by mouth 2 ity of 13:38: (two) [place] 04 times Medical daily. Branch ferrous 2017 Yes 325mg Take 325 Unive rs sulfate 325 8-10 mg by ity of mg (65 mg 13:38: mouth [place] iron) 04 daily. Medical tablet Branch albuterol-i 2017 Yes Inhale 4 [facility] pratropium 8-10 (four) ity of (COMBIVENT 13:38: times [place] INHALER) 04 daily. Medical 18-103 Branch mcg/actuati on inhaler FLUTICASONE 2017 Yes 2{puff} Inhale 2 [facility] PROPIONATE 8-10 Puffs as ity o f (FLOVENT 13:38: needed. [place] ROTADISK Medical INHALE) Branch Gabapentin, 2017 Yes 600mg 600 mg 3 U nivers Bulk, 100 % 8-10 (three) ity o f Powd 13:38: times [place] 04 daily. [facility] amLODIPine Yes 5mg Take 5 mg [facility] (NORVASC) 5 8-10 by mouth ity of mg tablet 13:38: daily. [place] [address] [facility] propranolol 2017 Yes 40mg Take 40 mg [facility] (INDERAL) 8-10 by mouth ity of 40 mg 13:38: daily. [place] [address] [facility] aspirin 81 2017 Yes 81mg Take 81 mg U nivers mg chewable 8-10 by mouth ity of tablet 13:38: daily. [place] [address] [facility] amitriptyli Yes 10mg Take 10 mg [facility] ne (ELAVIL) 8-10 by mouth ity of 10 mg 13:38: at [place] tablet 04 bedtime. [facility] simvastatin 2017 Yes 20mg Take 20 mg [facility] (ZOCOR) 20 8-10 by mouth ity o f mg tablet 13:38: at [place] 04 bedtime. [facility] CARVEDILOL 2017 Yes 25mg Take 25 mg U nivers ORAL 8-10 by mouth 2 ity of 13:38: (two) [place] 04 times Medical daily. Branch ferrous 2017 Yes 325mg Take 325 Unive rs sulfate 325 8-10 mg by ity of mg (65 mg 13:38: mouth [place] iron) 04 daily. Medical tablet Branch albuterol-i Yes Inhale 4 [facility] pratropium 8-10 (four) ity of (COMBIVENT 13:38: times [place] INHALER) 04 daily. Medical 18-103 Branch mcg/actuati on inhaler FLUTICASONE 2017 Yes 2{puff} Inhale 2 [facility] PROPIONATE 8-10 Puffs as ity o f (FLOVENT 13:38: needed. [place] ROTADISK 04 Medical INHALE) Branch Gabapentin, 2017 Yes 600mg 600 mg 3 U nivers Bulk, 100 % 8-10 (three) ity o f Powd 13:38: times [place] 04 daily. [facility] amLODIPine Yes 5mg Take 5 mg [facility] (NORVASC) 5 8-10 by mouth ity of mg tablet 13:38: daily. [place] [address] [facility] propranolol 2017 Yes 40mg Take 40 mg [facility] (INDERAL) 8-10 by mouth ity of 40 mg 13:38: daily. [place] [address] [facility] aspirin 81 2017 Yes 81mg Take 81 mg U nivers mg chewable 8-10 by mouth ity of tablet 13:38: daily. [place] [address] [facility] amitriptyli Yes 10mg Take 10 mg [facility] ne (ELAVIL) 8-10 by mouth ity of 10 mg 13:38: at [place] tablet 04 bedtime. [facility] simvastatin 2017 Yes 20mg Take 20 mg [facility] (ZOCOR) 20 8-10 by mouth ity o f mg tablet 13:38: at [place] 04 bedtime. [facility] CARVEDILOL 2017 Yes 25mg Take 25 mg U nivers ORAL 8-10 by mouth 2 ity of 13:38: (two) [place] 04 times Medical daily. Branch ferrous 2017 Yes 325mg Take 325 Unive rs sulfate 325 8-10 mg by ity of mg (65 mg 13:38: mouth [place] iron) 04 daily. Medical tablet Branch albuterol-i Yes Inhale 4 [facility] pratropium 8-10 (four) ity of (COMBIVENT 13:38: times [place] INHALER) 04 daily. Medical 18-103 Branch mcg/actuati on inhaler FLUTICASONE 2017 Yes 2{puff} Inhale 2 [facility] PROPIONATE 8-10 Puffs as ity o f (FLOVENT 13:38: needed. [place] ROTADISK 04 Medical INHALE) Branch Gabapentin, 2017 Yes 600mg 600 mg 3 U nivers Bulk, 100 % 8-10 (three) ity o f Powd 13:38: times [place] 04 daily. [facility] amLODIPine 2017 Yes 5mg Take 5 mg [facility] (NORVASC) 5 8-10 by mouth ity of mg tablet 13:38: daily. [place] [address] [facility] propranolol 2017 Yes 40mg Take 40 mg [facility] (INDERAL) 8-10 by mouth ity of 40 mg 13:38: daily. [place] tablet 04 [facility] aspirin 81 2017 Yes 81mg Take 81 mg U nivers mg chewable 8-10 by mouth ity of tablet 13:38: daily. [place] [address] [facility] amitriptyli Yes 10mg Take 10 mg [facility] ne (ELAVIL) 8-10 by mouth ity of 10 mg 13:38: at [place] tablet 04 bedtime. [facility] simvastatin Yes 20mg Take 20 mg [facility] (ZOCOR) 20 8-10 by mouth ity o f mg tablet 13:38: at [place] 04 bedtime. [facility] CARVEDILOL Yes 25mg Take 25 mg U nivers ORAL 8-10 by mouth 2 ity of 13:38: (two) [place] 04 times Medical daily. Branch ferrous Yes 325mg Take 325 Unive rs sulfate 325 8-10 mg by ity of mg (65 mg 13:38: mouth [place] iron) 04 daily. Medical tablet Branch albuterol-i 2017 Yes Inhale 4 [facility] pratropium 8-10 (four) ity of (COMBIVENT 13:38: times [place] INHALER) 04 daily. Medical 18-103 Branch mcg/actuati on inhaler FLUTICASONE 2017 Yes 2{puff} Inhale 2 [facility] PROPIONATE 8-10 Puffs as ity o f (FLOVENT 13:38: needed. [place] ROTADISK 04 Medical INHALE) Branch Gabapentin, 201[address] Yes 600mg 600 mg 3 U nivers Bulk, 100 % 8-10 (three) ity o f Powd 13:38: times [place] 04 daily. [facility] amLODIPine Yes 5mg Take 5 mg [facility] (NORVASC) 5 8-10 by mouth ity of mg tablet 13:38: daily. [place] [address] [facility] propranolol Yes 40mg Take 40 mg [facility] (INDERAL) 8-10 by mouth ity of 40 mg 13:38: daily. [place] tablet 04 [facility] aspirin 81 2017 Yes 81mg Take 81 mg U nivers mg chewable 8-10 by mouth ity of tablet 13:38: daily. [facility] amitriptyli Yes 10mg Take 10 mg [facility] ne (ELAVIL) 8-10 by mouth ity of 10 mg 13:38: at [place] tablet 04 bedtime. [facility] simvastatin Yes 20mg Take 20 mg [facility] (ZOCOR) 20 8-10 by mouth ity o f mg tablet 13:38: at [place] 04 bedtime. [facility] CARVEDILOL Yes 25mg Take 25 mg U nivers ORAL 8-10 by mouth 2 ity of 13:38: (two) [place] 04 times Medical daily. Branch ferrous Yes 325mg Take 325 Unive rs sulfate 325 8-10 mg by ity of mg (65 mg 13:38: mouth [place] iron) 04 daily. Medical tablet Branch albuterol-i Yes Inhale 4 [facility] pratropium 8-10 (four) ity of (COMBIVENT 13:38: times [place] INHALER) 04 daily. Medical 18-103 Branch mcg/actuati on inhaler FLUTICASONE Yes 2{puff} Inhale 2 [facility] PROPIONATE 8-10 Puffs as ity o f (FLOVENT 13:38: needed. [place] ROTADISK 04 Medical INHALE) Branch Gabapentin, Yes 600mg 600 mg 3 U nivers Bulk, 100 % 8-10 (three) ity o f Powd 13:38: times [place] 04 daily. [facility] amLODIPine Yes 5mg Take 5 mg [facility] (NORVASC) 5 8-10 by mouth ity of mg tablet 13:38: daily. [facility] propranolol 2017 Yes 40mg Take 40 mg [facility] (INDERAL) 8-10 by mouth ity of 40 mg 13:38: daily. [place] tablet Medical [facility] aspirin 81 2017 Yes 81mg Take 81 mg U nivers mg chewable 8-10 by mouth ity of tablet 13:38: daily. [facility] amitriptyli 2017 Yes 10mg Take 10 mg [facility] ne (ELAVIL) 8-10 by mouth ity of 10 mg 13:38: at [place] tablet 04 bedtime. [facility] simvastatin 2017 Yes 20mg Take 20 mg [facility] (ZOCOR) 20 8-10 by mouth ity o f mg tablet 13:38: at [place] 04 bedtime. [facility] albuterol-i Yes Inhale 4 [facility] pratropium 8-10 (four) ity of (COMBIVENT 13:38: times [place] INHALER) 04 daily. Medical 18-103 Branch mcg/actuati on inhaler CARVEDILOL Yes 25mg Take 25 mg U nivers ORAL 8-10 by mouth 2 ity of 13:38: (two) [place] 04 times Medical daily. Branch ferrous Yes 325mg Take 325 Unive rs sulfate 325 8-10 mg by ity of mg (65 mg 13:38: mouth [place] iron) 04 daily. Medical tablet Branch FLUTICASONE Yes 2{puff} Inhale 2 [facility] PROPIONATE 8-10 Puffs as ity o f (FLOVENT 13:38: needed. [place] ROTADISK 04 Medical INHALE) Branch albuterol-i Yes Inhale 4 [facility] pratropium 8-10 (four) ity of (COMBIVENT 13:38: times [place] INHALER) 04 daily. Medical 18-103 Branch mcg/actuati on inhaler Gabapentin, 2017 Yes 600mg 600 mg 3 U nivers Bulk, 100 % 8-10 (three) ity o f Powd 13:38: times [place] 04 daily. [facility] FLUTICASONE Yes 2{puff} Inhale 2 [facility] PROPIONATE 8-10 Puffs as ity o f (FLOVENT 13:38: needed. [place] ROTADISK 04 Medical INHALE) Branch Gabapentin, Yes 600mg 600 mg 3 U nivers Bulk, 100 % 8-10 (three) ity o f Powd 13:38: times [place] 04 daily. [facility] amLODIPine 2017 Yes 5mg Take 5 mg [facility] (NORVASC) 5 8-10 by mouth ity of mg tablet 13:38: daily. [place] [address] [facility] propranolol 2017 Yes 40mg Take 40 mg [facility] (INDERAL) 8-10 by mouth ity of 40 mg 13:38: daily. [place] tablet Medical [facility] aspirin 81 Yes 81mg Take 81 mg U nivers mg chewable 8-10 by mouth ity of tablet 13:38: daily. [place] [address] [facility] amitriptyli 2017 Yes 10mg Take 10 mg [facility] ne (ELAVIL) 8-10 by mouth ity of 10 mg 13:38: at [place] tablet 04 bedtime. [facility] simvastatin Yes 20mg Take 20 mg [facility] (ZOCOR) 20 8-10 by mouth ity o f mg tablet 13:38: at [place] 04 bedtime. [facility] amLODIPine Yes 5mg Take 5 mg [facility] (NORVASC) 5 8-10 by mouth ity of mg tablet 13:38: daily. [place] [address] [facility] CARVEDILOL Yes 25mg Take 25 mg U nivers ORAL 8-10 by mouth 2 ity of 13:38: (two) [place] 04 times Medical daily. Branch ferrous Yes 325mg Take 325 Unive rs sulfate 325 8-10 mg by ity of mg (65 mg 13:38: mouth [place] iron) 04 daily. Medical tablet Branch propranolol Yes 40mg Take 40 mg [facility] (INDERAL) 8-10 by mouth ity of 40 mg 13:38: daily. [place] tablet 04 Medical [facility] aspirin 81 Yes 81mg Take 81 mg U nivers mg chewable 8-10 by mouth ity of tablet 13:38: daily. [place] [address] [facility] Branch albuterol-i Yes Inhale 4 [facility] pratropium 8-10 (four) ity of (COMBIVENT 13:38: times [place] INHALER) 04 daily. Medical 18-103 Branch mcg/actuati on inhaler FLUTICASONE 20170 Yes 2{puff} Inhale 2 [facility] PROPIONATE 8-10 Puffs as ity o f (FLOVENT 13:38: needed. [place] ROTADISK 04 Medical INHALE) Branch Gabapentin, 2017- Yes 600mg 600 mg 3 U nivers Bulk, 100 % 8-10 (three) ity o f Powd 13:38: times [place] 04 daily. [facility] amLODIPine 2017 Yes 5mg Take 5 mg [facility] (NORVASC) 5 8-10 by mouth ity of mg tablet 13:38: daily. [place] [address] [facility] propranolol 2017 Yes 40mg Take 40 mg [facility] (INDERAL) 8-10 by mouth ity of 40 mg 13:38: daily. [place] tablet 04 [facility] aspirin 81 2017 Yes 81mg Take 81 mg U nivers mg chewable 8-10 by mouth ity of tablet 13:38: daily. [place] [address] [facility] amitriptyli Yes 10mg Take 10 mg [facility] ne (ELAVIL) 8-10 by mouth ity of 10 mg 13:38: at [place] tablet 04 bedtime. Medical [facility] simvastatin Yes 20mg Take 20 mg [facility] (ZOCOR) 20 8-10 by mouth ity o f mg tablet 13:38: at [place] 04 bedtime. Medical [facility] amitriptyli Yes 10mg Take 10 mg [facility] ne (ELAVIL) 8-10 by mouth ity of 10 mg 13:38: at [place] tablet 04 bedtime. Medical [facility] CARVEDILOL Yes 25mg Take 25 mg U nivers ORAL 8-10 by mouth 2 ity of 13:38: (two) [place] 04 times Medical daily. Branch ferrous Yes 325mg Take 325 Unive rs sulfate 325 8-10 mg by ity of mg (65 mg 13:38: mouth [place] iron) 04 daily. Medical tablet Branch simvastatin Yes 20mg Take 20 mg [facility] (ZOCOR) 20 8-10 by mouth ity o f mg tablet 13:38: at [place] 04 bedtime. Medical Branch albuterol-i Yes Inhale 4 [facility] pratropium 8-10 (four) ity of (COMBIVENT 13:38: times [place] INHALER) 04 daily. Medical 18-103 Branch mcg/actuati on inhaler FLUTICASONE 2017 Yes 2{puff} Inhale 2 [facility] PROPIONATE 8-10 Puffs as ity o f (FLOVENT 13:38: needed. [place] ROTADISK 04 Medical INHALE) Branch Gabapentin, 2017 Yes 600mg 600 mg 3 U nivers Bulk, 100 % 8-10 (three) ity o f Powd 13:38: times [place] 04 daily. Medical [facility] amLODIPine 2017 Yes 5mg Take 5 mg [facility] (NORVASC) 5 8-10 by mouth ity of mg tablet 13:38: daily. [place] [address] [facility] Branch propranolol [address] Yes 40mg Take 40 mg [facility] (INDERAL) 8-10 by mouth ity of 40 mg 13:38: daily. [place] tablet 04 Medical Branch aspirin 81 2017 Yes 81mg Take 81 mg U nivers mg chewable 8-10 by mouth ity of tablet 13:38: daily. [facility] amitriptyli Yes 10mg Take 10 mg [facility] ne (ELAVIL) 8-10 by mouth ity of 10 mg 13:38: at [place] tablet 04 bedtime. Medical Branch simvastatin Yes 20mg Take 20 mg [facility] (ZOCOR) 20 8-10 by mouth ity o f mg tablet 13:38: at [place] 04 bedtime. Medical Branch CARVEDILOL Yes 25mg Take 25 mg U nivers ORAL 8-10 by mouth 2 ity of 13:38: (two) [place] 04 times Medical daily. Branch ferrous 0 Yes 325mg Take 325 Unive rs sulfate 325 8-10 mg by ity of mg (65 mg 13:38: mouth [place] iron) 04 daily. Medical tablet Branch albuterol-i Yes Inhale 4 [facility] pratropium 8-10 (four) ity of (COMBIVENT 13:38: times [place] INHALER) 04 daily. Medical 18-103 Branch mcg/actuati on inhaler FLUTICASONE 2017-0 Yes 2{puff} Inhale 2 [facility] PROPIONATE 8-10 Puffs as ity o f (FLOVENT 13:38: needed. [place] ROTADISK 04 Medical INHALE) Branch Gabapentin, 20170 Yes 600mg 600 mg 3 U nivers Bulk, 100 % 8-10 (three) ity o f Powd 13:38: times [place] 04 daily. Medical [facility] amLODIPine 2017 Yes 5mg Take 5 mg [facility] (NORVASC) 5 8-10 by mouth ity of mg tablet 13:38: daily. [facility] propranolol 2017- Yes 40mg Take 40 mg [facility] (INDERAL) 8-10 by mouth ity of 40 mg 13:38: daily. [place] tablet 04 Medical Branch aspirin 81 2017- Yes 81mg Take 81 mg U nivers mg chewable 8-10 by mouth ity of tablet 13:38: daily. [facility] Branch amitriptyli Yes 10mg Take 10 mg [facility] ne (ELAVIL) 8-10 by mouth ity of 10 mg 13:38: at [place] tablet 04 bedtime. Medical Branch simvastatin 2017 Yes 20mg Take 20 mg [facility] (ZOCOR) 20 8-10 by mouth ity o f mg tablet 13:38: at [place] 04 bedtime. Medical Branch CARVEDILOL Yes 25mg Take 25 mg U nivers ORAL 8-10 by mouth 2 ity of 13:38: (two) [place] 04 times Medical daily. Branch ferrous Yes 325mg Take 325 Unive rs sulfate 325 8-10 mg by ity of mg (65 mg 13:38: mouth [place] iron) 04 daily. Medical tablet Branch CARVEDILOL Yes 25mg Take 25 mg U nivers ORAL 8-10 by mouth 2 ity of 13:38: (two) [place] 04 times Medical daily. Branch albuterol-i Yes Inhale 4 [facility] pratropium 8-10 (four) ity of (COMBIVENT 13:38: times [place] INHALER) 04 daily. Medical 18-103 Branch mcg/actuati on inhaler FLUTICASONE 2017 Yes 2{puff} Inhale 2 [facility] PROPIONATE 8-10 Puffs as ity o f (FLOVENT 13:38: needed. [place] ROTADISK 04 Medical INHALE) Branch Gabapentin, 2017- Yes 600mg 600 mg 3 U nivers Bulk, 100 % 8-10 (three) ity o f Powd 13:38: times [place] 04 daily. Medical [facility] amLODIPine 2017 Yes 5mg Take 5 mg [facility] (NORVASC) 5 8-10 by mouth ity of mg tablet 13:38: daily. [place] [address] [facility] Branch ferrous Yes 325mg Take 325 Unive rs sulfate 325 8-10 mg by ity of mg (65 mg 13:38: mouth [place] iron) 04 daily. Medical tablet Branch propranolol 2017 Yes 40mg Take 40 mg [facility] (INDERAL) 8-10 by mouth ity of 40 mg 13:38: daily. [place] tablet 04 [facility] aspirin 81 2017 Yes 81mg Take 81 mg U nivers mg chewable 8-10 by mouth ity of tablet 13:38: daily. [place] [address] [facility] Branch amitriptyli 2017 Yes 10mg Take 10 mg [facility] ne (ELAVIL) 8-10 by mouth ity of 10 mg 13:38: at [place] tablet 04 bedtime. [facility] simvastatin 2017 Yes 20mg Take 20 mg [facility] (ZOCOR) 20 8-10 by mouth ity o f mg tablet 13:38: at [place] 04 bedtime. Medical Branch CARVEDILOL 2017 Yes 25mg Take 25 mg U nivers ORAL 8-10 by mouth 2 ity of 13:38: (two) [place] 04 times Medical daily. Branch ferrous Yes 325mg Take 325 Unive rs sulfate 325 8-10 mg by ity of mg (65 mg 13:38: mouth [place] iron) 04 daily. Medical tablet Branch albuterol-i Yes Inhale 4 [facility] pratropium 8-10 (four) ity of (COMBIVENT 13:38: times [place] INHALER) 04 daily. Medical 18-103 Branch mcg/actuati on inhaler FLUTICASONE 2017 Yes 2{puff} Inhale 2 [facility] PROPIONATE 8-10 Puffs as ity o f (FLOVENT 13:38: needed. [place] ROTADISK 04 Medical INHALE) Branch Gabapentin, [address] Yes 600mg 600 mg 3 U nivers Bulk, 100 % 8-10 (three) ity o f Powd 13:38: times [place] 04 daily. Medical Branch amLODIPine 2017 Yes 5mg Take 5 mg [facility] (NORVASC) 5 8-10 by mouth ity of mg tablet 13:38: daily. [place] [address] Medical Branch propranolol 2017 Yes 40mg Take 40 mg [facility] (INDERAL) 8-10 by mouth ity of 40 mg 13:38: daily. [place] tablet 04 Medical Branch aspirin 81 Yes 81mg Take 81 mg [facility] mg chewable 8-10 by mouth ity of tablet 13:38: daily. [place] [address] Medical Branch amitriptyli 2017- Yes 10mg Take 10 mg [facility] ne (ELAVIL) 8-10 by mouth ity of 10 mg 13:38: at [place] tablet 04 bedtime. Medical Branch simvastatin 2017 Yes 20mg Take 20 mg [facility] (ZOCOR) 20 8-10 by mouth ity o f mg tablet 13:38: at [place] [address] bedtime. Medical Branch albuterol-i 2017 Yes Inhale 4 [facility] pratropium 8-10 (four) ity of (COMBIVENT 13:38: times [place] INHALER) 04 daily. Medical 18-103 Branch mcg/actuati on inhaler FLUTICASONE 2017 Yes 2{puff} Inhale 2 [facility] PROPIONATE 8-10 Puffs as ity o f (FLOVENT 13:38: needed. [place] ROTADISK 04 Medical INHALE) Branch Gabapentin, 2017 Yes 600mg 600 mg 3 [facility] nivers Bulk, 100 % 8-10 (three) ity o f Powd 13:38: times [place] 04 daily. Medical Branch amLODIPine Yes 5mg Take 5 mg [facility] (NORVASC) 5 8-10 by mouth ity of mg tablet 13:38: daily. [place] [address] Medical Branch propranolol Yes 40mg Take 40 mg [facility] (INDERAL) 8-10 by mouth ity of 40 mg 13:38: daily. [place] [address] Medical Branch aspirin 81 2017 Yes 81mg Take 81 mg [facility] mg chewable 8-10 by mouth ity of tablet 13:38: daily. [place] [address] Medical Branch amitriptyli Yes 10mg Take 10 mg [facility] ne (ELAVIL) 8-10 by mouth ity of 10 mg 13:38: at [place] tablet 04 bedtime. Medical Branch simvastatin Yes 20mg Take 20 mg [facility] (ZOCOR) 20 8-10 by mouth ity o f mg tablet 13:38: at [place] [address] bedtime. Medical Branch phenazopyri Yes 200mg Take 2 [facility] vers dine 8-10 tablets by ity of (PYRIDIUM) 00:00: mouth 3 [place] 100 mg 00 (three) Medical tablet times Branch daily as needed (bladder pain). phenazopyri 2017-0 Yes 200mg Take 2 [facility] vers dine 8-10 tablets by [facility]y of (PYRIDIUM) 00:00: mouth 3 [place] 100 mg 00 (three) Medical tablet times Branch daily as needed (bladder pain). phenazopyri 2017-0 Yes 200mg Take 2 [facility] vers dine 8-10 tablets by [facility] of (PYRIDIUM) 00:00: mouth 3 [place] 100 mg 00 (three) Medical tablet times Branch daily as needed (bladder pain). phenazopyri 2017-0 Yes 200mg Take 2 [facility] vers dine 8-10 tablets by [facility] of (PYRIDIUM) 00:00: mouth 3 [place] 100 mg 00 (three) Medical tablet times Branch daily as needed (bladder pain). phenazopyri 2017-0 Yes 200mg Take 2 [facility] vers dine 8-10 tablets by [facility] of (PYRIDIUM) 00:00: mouth 3 [place] 100 mg 00 (three) Medical tablet times Branch daily as needed (bladder pain). phenazopyri 2017-0 Yes 200mg Take 2 [facility] vers dine 8-10 tablets by ity of (PYRIDIUM) 00:00: mouth 3 [place] 100 mg 00 (three) Medical tablet times Branch daily as needed (bladder pain). phenazopyri 2017-0 Yes 200mg Take 2 [facility] vers dine 8-10 tablets by ity of (PYRIDIUM) 00:00: mouth 3 [place] 100 mg 00 (three) Medical tablet times Branch daily as needed (bladder pain). phenazopyri 2017-0 Yes 200mg Take 2 [facility] vers dine 8-10 tablets by ity of (PYRIDIUM) 00:00: mouth 3 [place] 100 mg 00 (three) Medical tablet times Branch daily as needed (bladder pain). phenazopyri 2017-0 Yes 200mg Take 2 [facility] vers dine 8-10 tablets by ity of (PYRIDIUM) 00:00: mouth 3 [place] 100 mg 00 (three) Medical tablet times Branch daily as needed (bladder pain). phenazopyri 2017-0 Yes 200mg Take 2 [facility] vers dine 8-10 tablets by ity of (PYRIDIUM) 00:00: mouth 3 [place] 100 mg 00 (three) Medical tablet times Branch daily as needed (bladder pain). phenazopyri 2017-0 Yes 200mg Take 2 [facility] vers dine 8-10 tablets by ity of (PYRIDIUM) 00:00: mouth 3 [place] 100 mg 00 (three) Medical tablet times Branch daily as needed (bladder pain). phenazopyri 2017-0 Yes 200mg Take 2 [facility] vers dine 8-10 tablets by ity of (PYRIDIUM) 00:00: mouth 3 [place] 100 mg 00 (three) Medical tablet times Branch daily as needed (bladder pain). phenazopyri 2017-0 Yes 200mg Take 2 [facility] vers dine 8-10 tablets by ity of (PYRIDIUM) 00:00: mouth 3 [place] 100 mg 00 (three) Medical tablet times Branch daily as needed (bladder pain). phenazopyri 2017-0 Yes 200mg Take 2 [facility] vers dine 8-10 tablets by ity of (PYRIDIUM) 00:00: mouth 3 [place] 100 mg 00 (three) Medical tablet times Branch daily as needed (bladder pain). phenazopyri 2017-0 Yes 200mg Take 2 [facility] vers dine 8-10 tablets by ity of (PYRIDIUM) 00:00: mouth 3 [place] 100 mg 00 (three) Medical tablet times Branch daily as needed (bladder pain). phenazopyri 2017-0 Yes 200mg Take 2 [facility] vers dine 8-10 tablets by ity of (PYRIDIUM) 00:00: mouth 3 [place] 100 mg 00 (three) Medical tablet times Branch daily as needed (bladder pain). phenazopyri 2017-0 Yes 200mg Take 2 [facility] vers dine 8-10 tablets by ity of (PYRIDIUM) 00:00: mouth 3 [place] 100 mg 00 (three) Medical tablet times Branch daily as needed (bladder pain). clindamycin 2015-11 Yes TAKE 2 [facility] ers (CLEOCIN) 0-24 CAPSULES ity of 150 mg 00:00: BY MOUTH [place] capsule 00 EVERY 8 Medical HOURS ( 3 Branch TIMES A DAY) TAKE WITH FOOD AND DRINK PLENTY OF WATER ibuprofen 2015-11 Yes [facility] (MOTRIN) 0-24 ity of 800 mg 00:00: [place] tablet 00 Medical Branch clindamycin 2015-11 Yes TAKE 2 [facility] ers (CLEOCIN) 0-24 CAPSULES ity of 150 mg 00:00: BY MOUTH [place] capsule 00 EVERY 8 Medical HOURS ( 3 Branch TIMES A DAY) TAKE WITH FOOD AND DRINK PLENTY OF WATER ibuprofen 2015-11 Yes [facility] (MOTRIN) 0-24 ity of 800 mg 00:00: [place] tablet 00 Medical Branch clindamycin 2015-11 Yes TAKE 2 [facility] ers (CLEOCIN) 0-24 CAPSULES ity of 150 mg 00:00: BY MOUTH [place] capsule 00 EVERY 8 Medical HOURS ( 3 Branch TIMES A DAY) TAKE WITH FOOD AND DRINK PLENTY OF WATER ibuprofen 2015-11 Yes [facility] (MOTRIN) 0-24 ity of 800 mg 00:00: [place] tablet 00 Medical Branch clindamycin 2015-11 Yes TAKE 2 [facility] ers (CLEOCIN) 0-24 CAPSULES ity of 150 mg 00:00: BY MOUTH [place] capsule 00 EVERY 8 Medical HOURS ( 3 Branch TIMES A DAY) TAKE WITH FOOD AND DRINK PLENTY OF WATER ibuprofen 2015-11 Yes [facility] (MOTRIN) 0-24 ity of 800 mg 00:00: [place] tablet 00 Medical Branch clindamycin 2015-11 Yes TAKE 2 [facility] ers (CLEOCIN) 0-24 CAPSULES ity of 150 mg 00:00: BY MOUTH [place] capsule 00 EVERY 8 Medical HOURS ( 3 Branch TIMES A DAY) TAKE WITH FOOD AND DRINK PLENTY OF WATER ibuprofen 2015-11 Yes [facility] (MOTRIN) 0-24 ity of 800 mg 00:00: [place] tablet 00 Medical Branch clindamycin 2015-11 Yes TAKE 2 [facility] ers (CLEOCIN) 0-24 CAPSULES ity of 150 mg 00:00: BY MOUTH [place] capsule 00 EVERY 8 Medical HOURS ( 3 Branch TIMES A DAY) TAKE WITH FOOD AND DRINK PLENTY OF WATER ibuprofen 2015-11 Yes [facility] (MOTRIN) 0-24 ity of 800 mg 00:00: [place] tablet 00 Medical Branch clindamycin 2015-11 Yes TAKE 2 [facility] ers (CLEOCIN) 0-24 CAPSULES ity of 150 mg 00:00: BY MOUTH [place] capsule 00 EVERY 8 Medical HOURS ( 3 Branch TIMES A DAY) TAKE WITH FOOD AND DRINK PLENTY OF WATER ibuprofen 2015-11 Yes [facility] (MOTRIN) 0-24 ity of 800 mg 00:00: [place] tablet 00 Medical Branch clindamycin 2015-11 Yes TAKE 2 [facility] ers (CLEOCIN) 0-24 CAPSULES ity of 150 mg 00:00: BY MOUTH [place] capsule 00 EVERY 8 Medical HOURS ( 3 Branch TIMES A DAY) TAKE WITH FOOD AND DRINK PLENTY OF WATER ibuprofen 2016-1 Yes [facility] (MOTRIN) 0-24 ity of 800 mg 00:00: [place] tablet 00 Medical Branch clindamycin 2015-11 Yes TAKE 2 [facility] ers (CLEOCIN) 0-24 CAPSULES ity of 150 mg 00:00: BY MOUTH [place] capsule 00 EVERY 8 Medical HOURS ( 3 Branch TIMES A DAY) TAKE WITH FOOD AND DRINK PLENTY OF WATER ibuprofen 2015-11 Yes [facility] (MOTRIN) 0-24 ity of 800 mg 00:00: [place] tablet 00 Medical Branch clindamycin 2015-11 Yes TAKE 2 [facility] ers (CLEOCIN) 0-24 CAPSULES ity of 150 mg 00:00: BY MOUTH [place] capsule 00 EVERY 8 Medical HOURS ( 3 Branch TIMES A DAY) TAKE WITH FOOD AND DRINK PLENTY OF WATER ibuprofen 2015-11 Yes [facility] (MOTRIN) 0-24 ity of 800 mg 00:00: [place] tablet 00 Medical Branch clindamycin 2015-11 Yes TAKE 2 [facility] ers (CLEOCIN) 0-24 CAPSULES ity of 150 mg 00:00: BY MOUTH [place] capsule 00 EVERY 8 Medical HOURS ( 3 Branch TIMES A DAY) TAKE WITH FOOD AND DRINK PLENTY OF WATER ibuprofen 2015-11 Yes [facility] (MOTRIN) 0-24 ity of 800 mg 00:00: [place] tablet 00 Medical Branch clindamycin 2015-11 Yes TAKE 2 [facility] ers (CLEOCIN) 0-24 CAPSULES ity of 150 mg 00:00: BY MOUTH [place] capsule 00 EVERY 8 Medical HOURS ( 3 Branch TIMES A DAY) TAKE WITH FOOD AND DRINK PLENTY OF WATER ibuprofen 2015-11 Yes [facility] (MOTRIN) 0-24 ity of 800 mg 00:00: [place] tablet 00 Medical Branch clindamycin 2015-11 Yes TAKE 2 [facility] ers (CLEOCIN) 0-24 CAPSULES ity of 150 mg 00:00: BY MOUTH [place] capsule 00 EVERY 8 Medical HOURS ( 3 Branch TIMES A DAY) TAKE WITH FOOD AND DRINK PLENTY OF WATER clindamycin 2015-11 Yes TAKE 2 [facility] ers (CLEOCIN) 0-24 CAPSULES ity of 150 mg 00:00: BY MOUTH [place] capsule 00 EVERY 8 Medical HOURS ( 3 Branch TIMES A DAY) TAKE WITH FOOD AND DRINK PLENTY OF WATER ibuprofen 2015-11 Yes [facility] (MOTRIN) 0-24 ity of 800 mg 00:00: [place] tablet 00 Medical Branch ibuprofen 2015-11 Yes [facility] (MOTRIN) 0-24 ity of 800 mg 00:00: [place] tablet 00 Medical Branch clindamycin 2015-11 Yes TAKE 2 [facility] ers (CLEOCIN) 0-24 CAPSULES ity of 150 mg 00:00: BY MOUTH [place] capsule 00 EVERY 8 Medical HOURS ( 3 Branch TIMES A DAY) TAKE WITH FOOD AND DRINK PLENTY OF WATER ibuprofen 2015-11 Yes [facility] (MOTRIN) 0-24 ity of 800 mg 00:00: [place] tablet 00 Medical Branch clindamycin 2015-11 Yes TAKE 2 [facility] ers (CLEOCIN) 0-24 CAPSULES ity of 150 mg 00:00: BY MOUTH [place] capsule 00 EVERY 8 Medical HOURS ( 3 Branch TIMES A DAY) TAKE WITH FOOD AND DRINK PLENTY OF WATER ibuprofen 2015-11 Yes [facility] (MOTRIN) 0-24 ity of 800 mg 00:00: [place] tablet 00 Medical Branch clindamycin 2015-11 Yes TAKE 2 [facility] ers (CLEOCIN) 0-24 CAPSULES ity of 150 mg 00:00: BY MOUTH [place] capsule 00 EVERY 8 Medical HOURS ( 3 Branch TIMES A DAY) TAKE WITH FOOD AND DRINK PLENTY OF WATER ibuprofen 2015-11 Yes [facility] (MOTRIN) 0-24 ity of 800 mg 00:00: [place] tablet 00 Medical Branch tiZANidine 0 Yes 4mg Take 4 mg [facility] (ZANAFLEX) 5-10 by mouth 2 ity of 4 mg tablet 00:00: (two) [place] 00 times Medical daily. Branch tiZANidine 2015-0 Yes 4mg Take 4 mg [facility] (ZANAFLEX) 5-10 by mouth 2 ity of 4 mg tablet 00:00: (two) [place] 00 times Medical daily. Branch tiZANidine 2015-0 Yes 4mg Take 4 mg [facility] (ZANAFLEX) 5-10 by mouth 2 ity of 4 mg tablet 00:00: (two) [place] 00 times Medical daily. Branch tiZANidine 2015-0 Yes 4mg Take 4 mg [facility] (ZANAFLEX) 5-10 by mouth 2 ity of 4 mg tablet 00:00: (two) [place] 00 times Medical daily. Branch tiZANidine 2015-0 Yes 4mg Take 4 mg [facility] (ZANAFLEX) 5-10 by mouth 2 ity of 4 mg tablet 00:00: (two) [place] 00 times Medical daily. Branch tiZANidine 2015-0 Yes 4mg Take 4 mg [facility] (ZANAFLEX) 5-10 by mouth 2 ity of 4 mg tablet 00:00: (two) [place] 00 times Medical daily. Branch tiZANidine 2016-0 Yes 4mg Take 4 mg [facility] (ZANAFLEX) 5-10 by mouth 2 ity of 4 mg tablet 00:00: (two) [place] 00 times Medical daily. Branch tiZANidine 2016-0 Yes 4mg Take 4 mg [facility] (ZANAFLEX) 5-10 by mouth 2 ity of 4 mg tablet 00:00: (two) [place] 00 times Medical daily. Branch tiZANidine 2016-0 Yes 4mg Take 4 mg [facility] (ZANAFLEX) 5-10 by mouth 2 ity of 4 mg tablet 00:00: (two) [place] 00 times Medical daily. Branch tiZANidine 2016-0 Yes 4mg Take 4 mg [facility] (ZANAFLEX) 5-10 by mouth 2 ity of 4 mg tablet 00:00: (two) [place] 00 times Medical daily. Branch tiZANidine 2016-0 Yes 4mg Take 4 mg [facility] (ZANAFLEX) 5-10 by mouth 2 ity of 4 mg tablet 00:00: (two) [place] 00 times Medical daily. Branch tiZANidine 2016-0 Yes 4mg Take 4 mg [facility] (ZANAFLEX) 5-10 by mouth 2 ity of 4 mg tablet 00:00: (two) [place] 00 times Medical daily. Branch tiZANidine 2016-0 Yes 4mg Take 4 mg [facility] (ZANAFLEX) 5-10 by mouth 2 ity of 4 mg tablet 00:00: (two) [place] 00 times Medical daily. Branch tiZANidine 2016-0 Yes 4mg Take 4 mg [facility] (ZANAFLEX) 5-10 by mouth 2 ity of 4 mg tablet 00:00: (two) [place] 00 times Medical daily. Branch tiZANidine 2016-0 Yes 4mg Take 4 mg [facility] (ZANAFLEX) 5-10 by mouth 2 ity of 4 mg tablet 00:00: (two) [place] 00 times Medical daily. Branch tiZANidine 2016-0 Yes 4mg Take 4 mg [facility] (ZANAFLEX) 5-10 by mouth 2 ity of 4 mg tablet 00:00: (two) [place] 00 times Medical daily. Branch tiZANidine 2016-0 Yes 4mg Take 4 mg [facility] (ZANAFLEX) 5-10 by mouth 2 ity of 4 mg tablet 00:00: (two) [place] 00 times Medical daily. Branch VOLTAREN 1 Yes 1{dose} Apply 1 [facility] n[facility] % gel 4-13 Dose to ity of 00:00: area(s) [place] 00 every Medical evening. Branch losartan Yes 100mg Take 100 [facility] (COZAAR) 4-13 mg by ity of 100 mg 00:00: mouth [place] tablet 00 daily. Medical Branch potassium Yes 10meq Take 10 [facility] ers chloride 4-13 mEq by ity of (K-DUR) 10 00:00: mouth [place] mEq CR 00 daily. Medical tablet Branch VOLTAREN 1 Yes 1{dose} Apply 1 [facility] % gel 4-13 Dose to ity of 00:00: area(s) [place] 00 every Medical evening. Branch losartan Yes 100mg Take 100 [facility] ers (COZAAR) 4-13 mg by ity of 100 mg 00:00: mouth [place] tablet 00 daily. Medical Branch potassium Yes 10meq Take 10 [facility] ers chloride 4-13 mEq by ity of (K-DUR) 10 00:00: mouth [place] mEq CR 00 daily. Medical tablet Branch VOLTAREN 1 Yes 1{dose} Apply 1 [facility] % gel 4-13 Dose to ity of 00:00: area(s) [place] 00 every Medical evening. Branch losartan Yes 100mg Take 100 [facility] (COZAAR) 4-13 mg by ity of 100 mg 00:00: mouth [place] tablet 00 daily. Medical Branch potassium Yes 10meq Take 10 [facility] ers chloride 4-13 mEq by ity of (K-DUR) 10 00:00: mouth [place] mEq CR 00 daily. Medical tablet Branch VOLTAREN 1 Yes 1{dose} Apply 1 [facility] % gel 4-13 Dose to ity of 00:00: area(s) [place] 00 every Medical evening. Branch losartan Yes 100mg Take 100 [facility] (COZAAR) 4-13 mg by ity of 100 mg 00:00: mouth [place] tablet 00 daily. Medical Branch potassium Yes 10meq Take 10 [facility] chloride 4-13 mEq by ity of (K-DUR) 10 00:00: mouth [place] mEq CR 00 daily. Medical tablet Branch VOLTAREN 1 Yes 1{dose} Apply 1 [facility] % gel 4-13 Dose to ity of 00:00: area(s) [place] 00 every Medical evening. Branch losartan Yes 100mg Take 100 [facility] (COZAAR) 4-13 mg by ity of 100 mg 00:00: mouth [place] tablet 00 daily. Medical Branch potassium Yes 10meq Take 10 [facility] ers chloride 4-13 mEq by ity of (K-DUR) 10 00:00: mouth [place] mEq CR 00 daily. Medical tablet Branch VOLTAREN 1 Yes 1{dose} Apply 1 [facility] % gel 4-13 Dose to ity of 00:00: area(s) [place] 00 every Medical evening. Branch losartan Yes 100mg Take 100 [facility] (COZAAR) 4-13 mg by ity of 100 mg 00:00: mouth [place] tablet 00 daily. Medical Branch potassium Yes 10meq Take 10 [facility] chloride 4-13 mEq by ity of (K-DUR) 10 00:00: mouth [place] mEq CR 00 daily. Medical tablet Branch VOLTAREN 1 Yes 1{dose} Apply 1 [facility] % gel 4-13 Dose to ity of 00:00: area(s) [place] 00 every Medical evening. Branch losartan Yes 100mg Take 100 [facility] (COZAAR) 4-13 mg by ity of 100 mg 00:00: mouth [place] tablet 00 daily. Medical Branch potassium Yes 10meq Take 10 [facility] chloride 4-13 mEq by ity of (K-DUR) 10 00:00: mouth [place] mEq CR 00 daily. Medical tablet Branch VOLTAREN 1 Yes 1{dose} Apply 1 [facility] % gel 4-13 Dose to ity of 00:00: area(s) [place] 00 every Medical evening. Branch losartan Yes 100mg Take 100 [facility] (COZAAR) 4-13 mg by ity of 100 mg 00:00: mouth [place] tablet 00 daily. Medical Branch potassium Yes 10meq Take 10 [facility] chloride 4-13 mEq by ity of (K-DUR) 10 00:00: mouth [place] mEq CR 00 daily. Medical tablet Branch VOLTAREN 1 Yes 1{dose} Apply 1 [facility] % gel 4-13 Dose to ity of 00:00: area(s) [place] 00 every Medical evening. Branch losartan Yes 100mg Take 100 [facility] (COZAAR) 4-13 mg by ity of 100 mg 00:00: mouth [place] tablet 00 daily. Medical Branch potassium Yes 10meq Take 10 [facility] chloride 4-13 mEq by ity of (K-DUR) 10 00:00: mouth [place] mEq CR 00 daily. Medical tablet Branch VOLTAREN 1 Yes 1{dose} Apply 1 [facility] % gel 4-13 Dose to ity of 00:00: area(s) [place] 00 every Medical evening. Branch losartan Yes 100mg Take 100 [facility] (COZAAR) 4-13 mg by ity of 100 mg 00:00: mouth [place] tablet 00 daily. Medical Branch potassium Yes 10meq Take 10 [facility] chloride 4-13 mEq by ity of (K-DUR) 10 00:00: mouth [place] mEq CR 00 daily. Medical tablet Branch VOLTAREN 1 Yes 1{dose} Apply 1 [facility] % gel 4-13 Dose to ity of 00:00: area(s) [place] 00 every Medical evening. Branch losartan Yes 100mg Take 100 [facility] (COZAAR) 4-13 mg by ity of 100 mg 00:00: mouth [place] tablet 00 daily. Medical Branch potassium Yes 10meq Take 10 [facility] chloride 4-13 mEq by ity of (K-DUR) 10 00:00: mouth [place] mEq CR 00 daily. Medical tablet Branch VOLTAREN 1 Yes 1{dose} Apply 1 [facility] % gel 4-13 Dose to ity of 00:00: area(s) [place] 00 every Medical evening. Branch losartan Yes 100mg Take 100 [facility] (COZAAR) 4-13 mg by ity of 100 mg 00:00: mouth [place] tablet 00 daily. Medical Branch potassium Yes 10meq Take 10 [facility] chloride 4-13 mEq by ity of (K-DUR) 10 00:00: mouth [place] mEq CR 00 daily. Medical tablet Branch VOLTAREN 1 Yes 1{dose} Apply 1 [facility] % gel 4-13 Dose to ity of 00:00: area(s) [place] 00 every Medical evening. Branch losartan Yes 100mg Take 100 [facility] (COZAAR) 4-13 mg by ity of 100 mg 00:00: mouth [place] tablet 00 daily. Medical Branch potassium Yes 10meq Take 10 [facility] chloride 4-13 mEq by ity of (K-DUR) 10 00:00: mouth [place] mEq CR 00 daily. Medical tablet Branch VOLTAREN 1 Yes 1{dose} Apply 1 [facility] % gel 4-13 Dose to ity of 00:00: area(s) [place] 00 every Medical evening. Branch losartan Yes 100mg Take 100 [facility] (COZAAR) 4-13 mg by ity of 100 mg 00:00: mouth [place] tablet 00 daily. Medical Branch potassium Yes 10meq Take 10 [facility] chloride 4-13 mEq by ity of (K-DUR) 10 00:00: mouth [place] mEq CR 00 daily. Medical tablet Branch VOLTAREN 1 Yes 1{dose} Apply 1 [facility] % gel 4-13 Dose to ity of 00:00: area(s) [place] 00 every Medical evening. Branch losartan Yes 100mg Take 100 [facility] (COZAAR) 4-13 mg by ity of 100 mg 00:00: mouth [place] tablet 00 daily. Medical Branch potassium Yes 10meq Take 10 [facility] chloride 4-13 mEq by ity of (K-DUR) 10 00:00: mouth [place] mEq CR 00 daily. Medical tablet Branch VOLTAREN 1 Yes 1{dose} Apply 1 [facility] % gel 4-13 Dose to ity of 00:00: area(s) [place] 00 every Medical evening. Branch losartan Yes 100mg Take 100 [facility] (COZAAR) 4-13 mg by ity of 100 mg 00:00: mouth [place] tablet 00 daily. Medical Branch potassium Yes 10meq Take 10 [facility] chloride 4-13 mEq by ity of (K-DUR) 10 00:00: mouth [place] mEq CR 00 daily. Medical tablet Branch VOLTAREN 1 Yes 1{dose} Apply 1 [facility] % gel 4-13 Dose to ity of 00:00: area(s) [place] 00 every Medical evening. Branch losartan 2015-0 Yes 100mg Take 100 [facility] (COZAAR) 4-13 mg by ity of 100 mg 00:00: mouth [place] tablet 00 daily. Medical Branch potassium 2015-0 Yes 10meq Take 10 [facility] chloride 4-13 mEq by ity of (K-DUR) 10 00:00: mouth [place] mEq CR 00 daily. Medical tablet Branch hydrochloro 2012- Yes 25mg Take 1 Tab [facility] thiazide 7-05 by mouth 2 ity o f (ESIDRIX) 00:00: (two) [place] 25 mg 00 times Medical tablet daily. Branch docusate 2012- Yes 240mg Take 1 Cap [facility] calcium 7-05 by mouth 2 ity of (SURFAK) 00:00: (two) [place] 240 mg 00 times Medical capsule daily. Branch hydrochloro Yes 25mg Take 1 Tab [facility] thiazide 7-05 by mouth 2 ity o f (ESIDRIX) 00:00: (two) [place] 25 mg 00 times Medical tablet daily. Branch docusate Yes 240mg Take 1 Cap [facility] calcium 7-05 by mouth 2 ity of (SURFAK) 00:00: (two) [place] 240 mg 00 times Medical capsule daily. Branch hydrochloro 2012-0 Yes 25mg Take 1 Tab [facility] thiazide 7-05 by mouth 2 ity o f (ESIDRIX) 00:00: (two) [place] 25 mg 00 times Medical tablet daily. Branch docusate 2012-0 Yes 240mg Take 1 Cap [facility] calcium 7-05 by mouth 2 ity of (SURFAK) 00:00: (two) [place] 240 mg 00 times Medical capsule daily. Branch hydrochloro 2012-0 Yes 25mg Take 1 Tab [facility] thiazide 7-05 by mouth 2 ity o f (ESIDRIX) 00:00: (two) [place] 25 mg 00 times Medical tablet daily. Branch docusate 2012-0 Yes 240mg Take 1 Cap [facility] calcium 7-05 by mouth 2 ity of (SURFAK) 00:00: (two) [place] 240 mg 00 times Medical capsule daily. Branch hydrochloro 2012-0 Yes 25mg Take 1 Tab [facility] thiazide 7-05 by mouth 2 ity o f (ESIDRIX) 00:00: (two) [place] 25 mg 00 times Medical tablet daily. Branch docusate 2013-0 Yes 240mg Take 1 Cap [facility] calcium 7-05 by mouth 2 ity of (SURFAK) 00:00: (two) [place] 240 mg 00 times Medical capsule daily. Branch hydrochloro 2013-0 Yes 25mg Take 1 Tab [facility] thiazide 7-05 by mouth 2 ity o f (ESIDRIX) 00:00: (two) [place] 25 mg 00 times Medical tablet daily. Branch docusate 2013-0 Yes 240mg Take 1 Cap [facility] calcium 7-05 by mouth 2 ity of (SURFAK) 00:00: (two) [place] 240 mg 00 times Medical capsule daily. Branch hydrochloro 2013-0 Yes 25mg Take 1 Tab [facility] thiazide 7-05 by mouth 2 ity o f (ESIDRIX) 00:00: (two) [place] 25 mg 00 times Medical tablet daily. Branch docusate 2013-0 Yes 240mg Take 1 Cap [facility] calcium 7-05 by mouth 2 ity of (SURFAK) 00:00: (two) [place] 240 mg 00 times Medical capsule daily. Branch hydrochloro 2013-0 Yes 25mg Take 1 Tab [facility] thiazide 7-05 by mouth 2 ity o f (ESIDRIX) 00:00: (two) [place] 25 mg 00 times Medical tablet daily. Branch docusate 2013-0 Yes 240mg Take 1 Cap [facility] calcium 7-05 by mouth 2 ity of (SURFAK) 00:00: (two) [place] 240 mg 00 times Medical capsule daily. Branch hydrochloro 2013-0 Yes 25mg Take 1 Tab [facility] thiazide 7-05 by mouth 2 ity o f (ESIDRIX) 00:00: (two) [place] 25 mg 00 times Medical tablet daily. Branch docusate 2013-0 Yes 240mg Take 1 Cap [facility] calcium 7-05 by mouth 2 ity of (SURFAK) 00:00: (two) [place] 240 mg 00 times Medical capsule daily. Branch hydrochloro 2013-0 Yes 25mg Take 1 Tab [facility] thiazide 7-05 by mouth 2 ity o f (ESIDRIX) 00:00: (two) [place] 25 mg 00 times Medical tablet daily. Branch docusate 2013-0 Yes 240mg Take 1 Cap [facility] calcium 7-05 by mouth 2 ity of (SURFAK) 00:00: (two) [place] 240 mg 00 times Medical capsule daily. Branch hydrochloro 2013-0 Yes 25mg Take 1 Tab [facility] thiazide 7-05 by mouth 2 ity o f (ESIDRIX) 00:00: (two) [place] 25 mg 00 times Medical tablet daily. Branch docusate 2013-0 Yes 240mg Take 1 Cap [facility] calcium 7-05 by mouth 2 ity of (SURFAK) 00:00: (two) [place] 240 mg 00 times Medical capsule daily. Branch hydrochloro 2013-0 Yes 25mg Take 1 Tab [facility] thiazide 7-05 by mouth 2 ity o f (ESIDRIX) 00:00: (two) [place] 25 mg 00 times Medical tablet daily. Branch docusate 2013-0 Yes 240mg Take 1 Cap [facility] calcium 7-05 by mouth 2 ity of (SURFAK) 00:00: (two) [place] 240 mg 00 times Medical capsule daily. Branch hydrochloro 2013-0 Yes 25mg Take 1 Tab [facility] thiazide 7-05 by mouth 2 ity o f (ESIDRIX) 00:00: (two) [place] 25 mg 00 times Medical tablet daily. Branch docusate 2013-0 Yes 240mg Take 1 Cap [facility] calcium 7-05 by mouth 2 ity of (SURFAK) 00:00: (two) [place] 240 mg 00 times Medical capsule daily. Branch hydrochloro 2013-0 Yes 25mg Take 1 Tab [facility] thiazide 7-05 by mouth 2 ity o f (ESIDRIX) 00:00: (two) [place] 25 mg 00 times Medical tablet daily. Branch docusate 2013-0 Yes 240mg Take 1 Cap [facility] calcium 7-05 by mouth 2 ity of (SURFAK) 00:00: (two) [place] 240 mg 00 times Medical capsule daily. Branch hydrochloro 2013-0 Yes 25mg Take 1 Tab [facility] thiazide 7-05 by mouth 2 ity o f (ESIDRIX) 00:00: (two) [place] 25 mg 00 times Medical tablet daily. Branch docusate 2013-0 Yes 240mg Take 1 Cap [facility] calcium 7-05 by mouth 2 ity of (SURFAK) 00:00: (two) [place] 240 mg 00 times Medical capsule daily. Branch hydrochloro 2013-0 Yes 25mg Take 1 Tab [facility] thiazide 7-05 by mouth 2 ity o f (ESIDRIX) 00:00: (two) [place] 25 mg 00 times Medical tablet daily. Branch docusate 2013-0 Yes 240mg Take 1 Cap [facility] calcium 7-05 by mouth 2 ity of (SURFAK) 00:00: (two) [place] 240 mg 00 times Medical capsule daily. Branch hydrochloro 2013-0 Yes 25mg Take 1 Tab Univers thiazide 7-05 by mouth 2 ity o f (ESIDRIX) 00:00: (two) [place] 25 mg 00 times Medical tablet daily. Branch docusate 2013-0 Yes 240mg Take 1 Cap Un michael calcium 7-05 by mouth 2 ity of (SURFAK) 00:00: (two) [place] 240 mg 00 times Medical capsule daily. Branch hydrochloro 2013-0 Yes 25mg Take 1 Tab Univers thiazide 7-05 by mouth 2 ity o f (ESIDRIX) 00:00: (two) [place] 25 mg 00 times Medical tablet daily. Branch docusate 2013-0 Yes 240mg Take 1 Cap Un michael calcium 7-05 by mouth 2 ity of (SURFAK) 00:00: (two) [place] 240 mg 00 times Medical capsule daily. Branch hydrochloro 2012-0 Yes 25mg Take 1 Tab Univers thiazide 7-05 by mouth 2 ity o f (ESIDRIX) 00:00: (two) [place] 25 mg 00 times Medical tablet daily. Branch docusate 2013-0 Yes 240mg Take 1 Cap Un michael calcium 7-05 by mouth 2 ity of (SURFAK) 00:00: (two) [place] 240 mg 00 times Medical capsule daily. Branch hydrochloro 2013-0 Yes 25mg Take 1 Tab Univers thiazide 7-05 by mouth 2 ity o f (ESIDRIX) 00:00: (two) [place] 25 mg 00 times Medical tablet daily. Branch docusate 2013-0 Yes 240mg Take 1 Cap Un michael calcium 7-05 by mouth 2 ity of (SURFAK) 00:00: (two) [place] 240 mg 00 times Medical capsule daily. Branch hydrochloro 2013-0 Yes 25mg Take 1 Tab Univers thiazide 7-05 by mouth 2 ity o f (ESIDRIX) 00:00: (two) [place] 25 mg 00 times Medical tablet daily. Branch docusate 2013-0 Yes 240mg Take 1 Cap Un michael calcium 7-05 by mouth 2 ity of (SURFAK) 00:00: (two) [place] 240 mg 00 times Medical capsule daily. Branch hydrochloro Yes 25mg Take 1 Tab Univers thiazide 7-05 by mouth 2 ity o f (ESIDRIX) 00:00: (two) [place] 25 mg 00 times Medical tablet daily. Branch docusate Yes 240mg Take 1 Cap Un michael calcium 7-05 by mouth 2 ity of (SURFAK) 00:00: (two) [place] 240 mg 00 times Medical capsule daily. Branch Potassium Potassium Yes Na Shabazz [address] [facility] Chloride ER Chloride ER with food [facility] No known No Univers medications [facility] No known No Univers medications [facility] No known No Univers medications [facility] Immunizations Ordered Filled Immunization Date Status Comments [facility] e Immunization Name Name SARS-COV-2 COVID-19 2021-01-30 Completed Unive rsity of MODERNA VACCINE 00:00:00 [facility] SARS-COV-2 COVID-19 2021-01-30 Completed Unive rsity of MODERNA VACCINE 00:00:00 [facility] SARS-COV-2 COVID-19 2021-01-30 Completed Unive rsity of MODERNA VACCINE 00:00:00 [facility] SARS-COV-2 COVID-19 2021-01-30 Completed Unive rsity of MODERNA VACCINE 00:00:00 [facility] SARS-COV-2 COVID-19 2021-01-30 Completed Unive rsity of MODERNA VACCINE 00:00:00 [facility] SARS-COV-2 COVID-19 2021-01-02 Completed Unive rsity of MODERNA VACCINE 00:00:00 [facility] SARS-COV-2 COVID-19 2021-01-02 Completed Unive rsity of MODERNA VACCINE 00:00:00 [facility] SARS-COV-2 COVID-19 2021-01-02 Completed Unive rsity of MODERNA VACCINE 00:00:00 [facility] SARS-COV-2 COVID-19 2021-01-02 Completed Unive rsity of MODERNA VACCINE 00:00:00 [place] Med ical Branch SARS-COV-2 COVID-19 2021-01-02 Completed Unive rsity of MODERNA VACCINE 00:00:00 [place] Med ical Branch Afluria single dose Afluria single dose 2019-08-[address] [facility] [facility] - 00:00:00 [facility] Pneumococcal 2013-06-06 Completed University o f Polysaccharide, 00:00:00 [place] Med ical PPSV23 (PNEUMOVAX) Branch Pneumococcal 2013-06-06 Completed University o f Polysaccharide, 00:00:00 [place] Med ical PPSV23 (PNEUMOVAX) Branch Pneumococcal 2013-06-06 Completed University o f Polysaccharide, 00:00:00 [place] Med ical PPSV23 (PNEUMOVAX) Branch Pneumococcal 2013-06-06 Completed University o f Polysaccharide, 00:00:00 [place] Med ical PPSV23 (PNEUMOVAX) Branch Pneumococcal 2013-06-06 Completed University o f Polysaccharide, 00:00:00 [place] Med ical PPSV23 (PNEUMOVAX) Branch Pneumococcal 2013-06-06 Completed University o f Polysaccharide, 00:00:00 [place] Med ical PPSV23 (PNEUMOVAX) Branch Pneumococcal 2013-06-06 Completed University o f Polysaccharide, 00:00:00 [place] Med ical PPSV23 (PNEUMOVAX) Branch Pneumococcal 2013-06-06 Completed University o f Polysaccharide, 00:00:00 [place] Med ical PPSV23 (PNEUMOVAX) Branch Pneumococcal 2013-06-06 Completed University o f Polysaccharide, 00:00:00 [place] Med ical PPSV23 (PNEUMOVAX) Branch Pneumococcal 2013-06-06 Completed University o f Polysaccharide, 00:00:00 [place] Med ical PPSV23 (PNEUMOVAX) Branch Pneumococcal 2013-06-06 Completed University o f Polysaccharide, 00:00:00 [place] Med ical PPSV23 (PNEUMOVAX) Branch Pneumococcal 2013-06-06 Completed University o f Polysaccharide, 00:00:00 [place] Med ical PPSV23 (PNEUMOVAX) Branch Pneumococcal 2013-06-06 Completed University o f Polysaccharide, 00:00:00 [place] Med ical PPSV23 (PNEUMOVAX) Branch Pneumococcal 2013-06-06 Completed University o f Polysaccharide, 00:00:00 [place] Med ical PPSV23 (PNEUMOVAX) Branch Pneumococcal 2013-06-06 Completed University o f Polysaccharide, 00:00:00 [place] Med ical PPSV23 (PNEUMOVAX) Branch Pneumococcal 2013-06-06 Completed University o f Polysaccharide, 00:00:00 [place] Med ical PPSV23 (PNEUMOVAX) Branch Pneumococcal 2013-06-06 Completed University o f Polysaccharide, 00:00:00 [place] Med ical PPSV23 (PNEUMOVAX) Branch Pneumococcal 2013-06-06 Completed University o f Polysaccharide, 00:00:00 [place] Med ical PPSV23 (PNEUMOVAX) Branch Pneumococcal 2013-06-06 Completed University o f Polysaccharide, 00:00:00 [place] Med ical PPSV23 (PNEUMOVAX) Branch Pneumococcal 2013-06-06 Completed University o f Polysaccharide, 00:00:00 [place] Med ical PPSV23 (PNEUMOVAX) Branch Pneumococcal 2013-06-06 Completed Equality o f Polysaccharide, 00:00:00 [place] Med ical PPSV23 (PNEUMOVAX) Branch Vital Signs Vital Name Observation Time Observation Value Comments Source Systolic blood 2021-03-11 19:58:00 153 mm[Hg] Univer sity [facility] Diastolic blood 2021-03-11 19:58:00 90 mm[Hg] [facility] Heart rate 2021-03-11 19:46:00 69 /min [facility] Body temperature 2021-03-11 19:46:00 36.89 Daniela [facility] Respiratory rate 2021-03-11 19:46:00 18 /min [facility] Body height 2021-03-11 19:46:00 170.2 cm [facility] Body weight 2021-03-11 19:46:00 142.883 kg [facility] BMI 2021-03-11 19:46:00 49.34 kg/m2 [facility] Systolic blood 2021-03-11 19:58:00 153 mm[Hg] Univer sity [facility] Diastolic blood 2021-03-11 19:58:00 90 mm[Hg] [facility] 2021-03-11 19:46:00 69 /min [facility] Body temperature 2021-03-11 19:46:00 36.89 Daniela [facility] Medical [place] Respiratory rate 2021-03-11 19:46:00 18 /min [facility] Body height 2021-03-11 19:46:00 170.2 cm [facility] Body weight 2021-03-11 19:46:00 142.883 kg [facility] BMI 2021-03-11 19:46:00 49.34 kg/m2 [facility] Procedures Procedure Date / Time Performing Clinician Source Performed ASSIGNMENT OF BENEFITS 2021-03-11 19:23:16 Doctor Unassigned, Un [facility] Name Medical Branch MR BRAIN W WO CONTRAST 2020-06-01 19:29:01 Peng Glez [facility] Medical [place] REFERRAL- 2020-01-13 06:01:00 Doctor Melva, [facility] REQUEST/RESPONSE [place] [facility] REFERRAL- 2019-07-21 05:01:00 Doctor Unamercy, [facility] REQUEST/RESPONSE [place] [facility] OP CLINIC NOTES/CONSULTS 2019-06-20 05:01:00 Doctor Melva, [facility] [place] [facility] AGREEMENTS AUTHORIZATIONS 2019-04-11 05:01:00 Doctor Melva, [facility] AND IRREVOCABLE [place] [facility] ASSIGNMENTS (FORM 2001) MEDICATION CORRESPONDENCE 2015-02-17 05:01:00 Doctor Melva, [facility] [place] [facility] PATIENT AGREEMENTS AND 2014-08-19 05:01:00 Doctor Melva, [facility] CONTRACTS [place] [facility] MEDICATION CORRESPONDENCE 2014-07-28 05:01:00 Doctor Melva, [facility] [place] [facility] PATIENT QUESTIONNAIRE 2014-06-18 05:01:00 Doctor Melva [facility] [place] [facility] MEDICATION CORRESPONDENCE 2013-05-09 05:01:00 Doctor Melva, [facility] [place] [facility] MEDICATION CORRESPONDENCE 2012-09-30 06:01:00 Doctor Melva, [facility] [place] [facility] MEDICATION CORRESPONDENCE 2012-08-13 05:01:00 Doctor Melva, [facility] [place] [facility] PATIENT QUESTIONNAIRE 2012-02-29 05:01:00 Doctor Melva [facility] [place] [facility] Encounters Start End Encounter Admission Attending Care Care Encounter Source Date/Time Date/Time Type Type Clinicians Facility Department ID 2022-03-16 2022-03-16 Outpatient Alisha RICH [facility] [id number] Univers 15:30:00 15:30:00 OPAL [id number] [facility] 2022-03-16 2022-03-16 Outpatient Alisha RICH [facility] [id number] Univers 15:30:00 15:30:00 OPAL [facility] 2021-10-07 2021-10-07 ambulatory [facility] [id number] [facility] 2021-10-06 2021-10-06 ambulatory [facility] [id number] [facility] 2021-09-22 2021-09-22 Outpatient [facility] [id number] [facility] 2021-08-06 2021-08-07 Inpatient TINY Hook [facility] [id number] [facility] 05:39:00 12:45:00 [place] [id number] [facility] 2021-08-02 2021-08-02 Outpatient [facility] [id number] [facility] 2021-07-11 2021-07-11 Outpatient [facility] [id number] [facility] 2021-07-05 2021-07-05 Outpatient [facility] [id number] [facility] 2021-06-08 2021-06-08 Outpatient [facility] [id number] [facility] 2021-05-25 2021-05-25 Outpatient [facility] [id number] [facility] 2021-05-17 2021-05-17 Outpatient [facility]MLC [facility] [id number] [facility] 2021-04-19 2021-04-19 Outpatient [facility]LMLC [facility] [id number] [facility] 2021-04-15 2021-04-15 Outpatient [facility]MLC [facility] [id number] [facility] 2021-03-31 2021-03-31 Outpatient [facility] [id number] [facility] 2021-03-24 2021-03-24 General Studies Program Chair 2, Adc Lab [facility] 1.2.840.114 [id number] 13:35:27 13:50:27 Visit Bruce [id number] [place] [id number] Professio [phone] 2021-03-24 2021-03-24 General Studies Program Chair 2, Adc Lab [facility] 1.2.840.114 [id number] [facility] 13:35:27 13:50:27 Visit MorganOpal romero Angeles Barrera [id number] [id number] [phone] Az dical [address] 2021-03-24 2021-03-24 Outpatient R [facility] [id number] Univers 13:15:00 13:15:00 [id number] ity [facility] 2021-03-24 2021-03-24 Outpatient R ADUM, [facility] [id number] Univers 13:15:00 13:15:00 OPAL itjaye [facility] 2021-03-11 2021-03-11 Office Adum, [facility] 1.2.840.114 [id number] Univers 14:23:31 16:29:07 Visit Opal Reynoso Bruce [id number] [id number] [phone] Az dical [facility] 134 [facility] 2021-03-11 2021-03-11 [facility] 1.2.840.114 [id number] 14:23:31 16:29:07 Visit Opal Barrera [id number] [place] [id number] Professio [phone] [address] 2021-03-11 2021-03-11 Outpatient R ADUM, [facility] [id number] Univers 14:30:00 14:30:00 OPAL [id number] ity [facility] 2021-03-11 2021-03-11 Outpatient R [facility] [id number] Univers 14:30:00 14:30:00 OPAL ity [facility] 2021-03-11 2021-03-11 Orders Doctor MOSES [id number] [id number] Univers 00:00:00 00:00:00 Only Unassigned, RENALDO [id number] ity of [place] [facility] [id number] Mitesh as [phone] [facility] 009 [place] 2021-03-10 2021-03-10 Telephone Kathy Lazo [id number] [facility] 00:00:00 00:00:00 Inga Coronadoy [id number] it [id number] [phone] [facility] 086 [place] 2021-02-25 2021-02-25 Outpatient [facility] [id number] [facility] 2021-02-20 2021-02-20 [facility] [id number] [facility] 2021-02-15 2021-02-15 Outpatient [facility] [id number] [facility] 2021-02-11 2021-02-11 Outpatient [facility]MLC [facility] [id number] [facility] 2021-02-10 2021-02-10 Outpatient [facility]ML[facility] [id number] [facility] 2021-02-09 2021-02-09 Outpatient [facility] [id number] [facility] 2021-02-07 2021-02-07 Outpatient [facility] [id number] [facility] 2021-01-30 2021-01-30 Outpatient [facility] [id number] Univers 16:10:00 16:10:00 [facility] 2021-01-29 2021-01-29 Outpatient [facility] [id number] [facility] 2021-01-25 2021-01-25 Outpatient [facility] [id number] [facility]00 [facility] 2021-01-18 2021-01-18 Outpatient [facility] [id number] [facility] 2021-01-02 2021-01-02 Outpatient Alisha PETERSON, [facility] [id number] Univers 15:10:00 15:10:00 JESSICA [facility] 2020-12-07 2020-12-07 Outpatient [facility] [id number] [facility]00 [facility] 2020-11-04 2020-11-04 Outpatient [facility]MLC [facility] [id number] [facility] 2020-11-03 2020-11-03 Outpatient [facility]MLC [facility] [id number] [facility] 2020-09-27 2020-09-27 Outpatient [facility] [id number] [facility] 2020-09-06 2020-09-06 Out[facility] [id number] [facility]00 [facility] 2020-07-06 2020-07-06 [facility] [id number] 11:42:00 11:42:00 [facility] [address] [facility] Medicine l Medicine Outpati ent Clinics 2020-07-05 2020-07-05 [facility] [id number] 10:00:00 10:00:00 Check-Cap s - ip.access [facility] Medicine Medicine Outpati ent Clinics 2020-07-02 2020-07-02 [facility] 1.2.840.114 [id number] [facility] 00:00:00 00:00:00 Peng Barrera [id number] ity [facility] [id number] [facility] [phone] Az dical [address] 2020-06-14 2020-06-14 [facility] [id number] 13:12:00 13:12:00 [employer] DOZ [address] [facility] Medicine Outpati ent Clinics 2020-06-01 2020-06-01 [facility] [id number] Univers 12:30:00 23:59:00 Encounter Peng Barrera [id number] ity [facility] [id number] [facility] [phone] [facility] 804 [place] 2020-06-01 2020-06-01 Outpatient PENG GLEZ [facility] [id number] Univers 12:30:00 12:30:00 PENG GLEZ [id number] ity [facility] 2020-06-01 2020-06-01 Outpatient R PENG GLEZ [facility] [id number] Univers 00:00:00 00:00:00 NEWTON, PENG [facility] 2020-05-28 2020-05-[address] [facility] 1.2.840.114 [id number] Univers 00:00:00 00:00:00 Peng ORTIZ [id number] ity of [facility] [id number] [phone] [address] 2020-05-27 2020-05-27 Outpatient Kofi Kirbyt [id number] [facility] 15:57:00 15:57:00 [facility] 2020-05-11 2020-05-11 Outpatient Alisha PENG GLEZ [facility] [id number] Univers 14:00:00 14:00:00 PENG GLEZ [id number] [facility] 2020-05-11 2020-05-11 Outpatient Alisha PENG GLEZ [facility] [id number] Univers 00:00:00 00:00:00 PENG GLEZ [facility] 2020-05-11 2020-05-11 Telephone [facility] 1.2.840.114 [id number] Univers 00:00:00 00:00:00 Peng Barrera [id number] ity [facility] [id number] [phone] [address] 2020-05-04 2020-05-04 Outpatient Kofi Souza [id number] [facility] 13:46:00 13:46:00 [facility] Outpati ent [facility] 2020-04-29 2020-04-29 Telephone [facility] 1.2.840.114 [id number] Univers 00:00:00 00:00:00 Peng Barrera [id number] [id number] [phone] Az dic[address] 2020-04-23 2020-04-23 Telephone [place], [facility] 1.2.840.114 [id number] Univers 00:00:00 00:00:00 Peng Barrera [id number] ity [facility] [id number] [phone] Az dical nal 092 [facility] 2020-04-21 2020-04-21 [facility] [id number] 16:33:00 16:33:00 t [facility] LuDOZ s - Road [facility] Medicine Medicine Outpati ent Clinics 2020-04-01 2020-04-01 [facility] [id number] 10:40:00 10:40:00 t Check-Cap s - Drive [facility] Medicine Outpati ent Clinics 2020-03-08 2020-03-08 [facility] [id number] 16:19:00 16:19:00 t Check-Cap s - Drive [facility] Medicine Outpati ent Clinics 2020-03-01 2020-03-01 [facility] [id number] 14:28:00 14:28:00 t Check-Cap s - ip.access [facility] Medicine Outpati ent Clinics 2020-02-20 2020-02-[address] [facility] 1.2.840.114 [id number] Univers 08:21:37 15:48:50 ne Visit Peng Barrera [id number] ity [facility] [id number] [phone] Az dical nal 2 [facility] 2020-02-20 2020-02-20 Outpatient PENG SEXTON [facility] [id number] Univers 08:40:00 08:40:00 PENG GLEZ [id number] [facility] 2020-02-20 2020-02-20 Outpatient PENG SEXTON [facility] [id number] Univers 08:40:00 08:40:00 [facility] 2020-01-[facility] 2020-01-28 Outpatient Kofi Kirbyt [id number] 16:24:00 16:24:00 t Check-Cap s [employer] [facility] Medicine Outpati ent Clinics 2020-01-13 2020-01-13 Orders Doctor AURELIA [id number] [id number] Univers 00:00:00 00:00:00 Only Unassigned, RENALDO [id number] ity of [place] [facility] [id number] Mitesh as [phone] [address] 2020-01-07 2020-01-07 [facility] [id number] 11:21:00 11:21:00 t Vivo [facility] Medicine Outpati ent Clinics 2020-01-05 2020-01-05 [facility] [id number] 14:40:00 14:40:00 t Vivo [facility] Medicine Outpati ent Clinics 2019-12-19 2019-12-19 [facility] [id number] 11:20:00 11:20:00 t Check-Cap s [employer] [facility] Medicine Outpati ent Clinics 2019-11-17 2019-11-17 [facility] [id number] 10:40:00 10:40:00 t Vivo [facility] Medicine Outpati ent Clinics 2019-11-12 2019-11-12 [facility] [id number] 15:22:00 15:22:00 t Vivo [facility] Medicine Outpati ent Clinics 2019-10-13 2019-10-13 [facility] [id number] 08:38:00 08:38:00 t Vivo [facility] Medicine Outpati ent Clinics 2019-09-25 2019-09-25 [facility] [id number] 09:55:00 09:55:00 t Vivo [facility] Medicine Outpati ent Clinics 2019-09-12 2019-09-12 [facility] [id number] 10:00:00 10:00:00 t Check-Cap s [employer] [facility] Medicine Outpati ent Clinics 2019-08-21 2019-08-21 [facility] [id number] 14:20:00 14:20:00 t Vivo [facility] 2019-08-14 2019-08-14 Outpatient Ningsherry Kofit [id number] 09:45:00 09:45:00 t Specialty/U Melba kes - Specialty rology Memori a /Urology Clinic l Clinic Outpati ent Clinics 2019-07-23 2019-07-23 [place] [facility] [id number] 09:30:00 09:30:00 t Specialty/U Melba kes - Specialty rology Memori a /Urology Clinic l [facility] 2019-07-21 2019-07-21 Orders Doctor AURELIA [id number] [id number] Univers 00:00:00 00:00:00 Only Unassigned, RENALDO [id number] ity [place] [facility] [id number] Mitesh as [phone] [address] 2019-07-18 2019-07-18 Outpatient Kofi Souza [id number] [facility] [address] 13:20:00 13:20:00 Vivo [facility] 2019-07-09 2019-07-[address] [facility] 1.2.840.114 [id number] Univers 00:00:00 00:00:00 [facility] [id number] it y of Surgical [id number] Mitesh as Specialti [phone] [facility] 198 [facility] 2019-06-20 2019-06-20 Orders Doctor MOSES 1.2.840.114 [id number] Univers 00:00:00 00:00:00 Only Unassigned, RENALDO [id number] ity [facility] [place] [facility] [id number] Mitesh as [phone] [address] 2019-05-21 2019-05-21 [facility]patient [place] [facility] [id number] 13:45:00 13:45:00 t Specialty/U Melba kes - Specialty rology Memori a /Urology Clinic l Clinic Outpati ent Clinics 2019-05-16 2019-05-16 [facility] [id number] 11:30:00 11:30:00 t Specialty/U Melba kes - Specialty rology Memori a /Urology Clinic l Clinic Outpati ent Clinics 2019-05-13 2019-05-13 [facility] [id number] 10:40:00 10:40:00 t Vivo [facility] Outpati ent Clinics 2019-05-08 2019-05-08 [facility] [id number] 11:30:00 11:30:00 t Specialty/U Melba kes - Specialty rology Memori a /Urology Clinic l Clinic Outpati ent Clinics 2019-04-11 2019-04-11 Orders Doctor MOSES 1.2.840.114 [id number] Univers 00:00:00 00:00:00 Only Unassigned, RENALDO [id number] ity of [place] [facility] [id number] Mitesh as [phone] [address] 2019-03-13 2019-03-13 [facility] [id number] 10:40:00 10:40:00 t M[place]ow ip.access [facility] Outpati ent Clinics 2019-02-19 2019-02-19 [facility] [id number] 11:30:00 11:30:00 t Specialty/U Melba kes - Specialty rology Memori a /Urology Clinic l Clinic Outpati ent Clinics 2019-02-14 2019-02-14 Outpatient [facility] [facility] [id number] [facility] 11:15:00 11:15:00 t Specialty/U Melba kes - Specialty rology Memori [facility] /Urology Clinic l Clinic Outpati ent Clinics 2019-02-05 2019-02-05 [facility] [id number] [facility] [address] 09:30:00 09:30:00 t [place] [facility] Outpati ent Clinics 2019-01-17 2019-01-17 [facility] [id number] [facility] 11:00:00 11:00:00 t Specialty/U Melba kes - Specialty rology Memori a /Urology Clinic l Clinic Outpati ent Clinics 2019-01-13 2019-01-13 [facility] [id number] 08:30:00 08:30:00 t Specialty/U Melba kes - Specialty rology Memori a /Urology Clinic l Clinic Outpati ent Clinics 2018-12-24 2018-12-24 [facility] [id number] [address] 07:58:00 07:58:00 t Specialty/U Melba kes - Specialty rology Memori a /Urology Clinic l Clinic Outpati ent Clinics 2018-12-17 2018-12-17 [facility] [id number] [address] 10:15:00 10:15:00 t Specialty/U Melba kes - Specialty ro[facility]y [facility] l Clinic Outpati ent Clinics 2018-12-13 2018-12-13 [facility] [id number] 09:35:00 09:35:00 t [employer] s - Drive [facility] l Medicine Outpati ent Clinics 2018-12-11 2018-12-11 [facility] [id number] 10:30:00 10:30:00 t [employer] s - Drive [facility] l Medicine Outpati ent Clinics 2018-08-22 2018-08-22 [facility] [id number] 08:12:00 08:12:00 t [employer] Lu[employer] s - Drive [facility] l Medicine Outpati ent Clinics 2018-08-20 2018-08-20 [facility] [id number] [facility] [address] 09:15:00 09:15:00 t [employer] Lu[employer] s - Drive [facility] l Medicine Outpati ent Clinics 2018-08-05 2018-08-05 [facility] [id number] [address] 14:15:00 14:15:00 t [employer] - Drive [facility] Medicine Outpati ent Clinics 2015-02-17 2015-02-17 Orders Doctor MOSES 1.2.840.114 [id number] [facility] 00:00:00 00:00:00 Only Unassigned, RENALDO 350.1.13.10 [place] [facility] 4.2.7.2.686 Mitesh as [phone] [address] 2014-08-19 2014-08-19 Orders Doctor AURELIA 1.2.840.114 [id number] Univers 00:00:00 00:00:00 Only Unassigned, RENALDO 350.1.13.10 [facility] [facility] 4.2.7.2.686 Mitesh as [phone] [address] 2014-07-28 2014-07-28 Orders Doctor AURELIA 1.2.840.114 [id number] Univers 00:00:00 00:00:00 Only Unassigned, RENALDO 350.1.13.10 [facility] [facility] 4.2.7.2.686 Mitesh as [phone] [address] 2014-06-18 2014-06-18 Orders Doctor AURELIA 1.2.840.114 [id number] Univers 00:00:00 00:00:00 Only Unassigned, RENALDO 350.1.13.10 [facility] [place] [facility] 4.2.7.2.686 Mitesh as [phone] [address] 2013-05-09 2013-05-09 Orders Doctor AURELIA 1.2.840.114 [id number] Univers 00:00:00 00:00:00 Only Unassigned, RENALDO 350.1.13.10 [facility] [facility] 4.2.7.2.686 Mitesh as [phone] [address] 2012-09-30 2012-09-30 Orders Doctor MOSES 1.2.840.114 [id number] Univers 00:00:00 00:00:00 Only Unassigned, RENALDO 350.1.13.10 [facility] [place] [facility] 4.2.7.2.686 Mitesh as [phone] [address] 2012-08-13 2012-08-13 Orders Doctor MOSES 1.2.840.114 [id number] Univers 00:00:00 00:00:00 Only Unassigned, RENALDO 350.1.13.10 [facility] [place] [facility] 4.2.7.2.686 Mitesh as [phone] [address] 2012-02-29 2012-02-29 Orders Doctor AURELIA 1.2.840.114 [id number] Univers 00:00:00 00:00:00 Only Unassigned, RENALDO 350.1.13.10 it[place] of [place] [facility] 4.2.7.2.686 Mitesh as [phone] [place] [address] Branch Results Test Description Test Time Test Comments Results Result Comments Source GLUCOSE BEDSIDE TESTING 2021-08-07 08:33:00 Test Item Value Reference Range Interpretation Comme nts GLUCOSE BEDSIDE TESTING (test code = GLUBED) 72 MG/DL 60-99 N - XR CHEST [id number] 06:52:00 [facility] 1965 Sex: F Patient Name: SUSIE WHITTAKER Unit No: [id number] EXAMS: CPT CODE: [id number] XR CHEST 1V [id number] EXAM: CHEST ONE VIEW INDICATION: S/P ICD LOCATION: B2 COMPARISON: August 06, 2021 TECHNIQUE: AP view of thechest FINDINGS: The heart size is enlarged. There is a cardiac pacing device in the left chest with no apparent discontinuity of the leads. There are diffuse congestive changes throughout both lungs. No pneumothorax or pleural effusion is identified. The osseous structures are normal. IMPRESSION: Cardiomegaly with diffuse congestive changes bilaterally. No pneumothorax. at 0652 Reported and signed by: Holli Tolentino MD CC: Nupur Ortiz MD; Joselito Bai Technologist: Filiberto Rodriguez, RT(R) Transcrpt Date/Tm/Trnsp: 08/07/2021 (0652) 16 Orig Print D/T: S: 08/07/2021 (0655) [facility] NAME: SUSIE WHITTAKER [address] PHYS: [place] [address] : 1965 AGE: 55 SEX: F LOC: Markos Quigley PHONE #: [phone] EXAM DATE: 08/07/2021 STATUS: ADM IN FAX #: [phone] RADIOLOGY NO: PAGE 1 Signed ReportBASIC METABOLIC [id number] 06:15:00 Test Item Value Reference Range Interpretation Comments SODIUM (test code = 142 MMOL/L 137-145 N NA) POTASSIUM (test code = 3.8 MMOL/L 3.5-5.1 N K) CHLORIDE (test code = 106 MMOL/L 98-107 N CL) CARBON DIOXIDE (test 28 MMOL/L 22-30 N code = CO2) ANION GAP (test code = 12 MMOL/L 14-24 L GAP) GLUCOSE (test code = 91 MG/DL 74-106 N GLU) BLOOD UREA NITROGEN 11 MG/DL 7-17 N (test code = BUN) GLOMERULAR FILTRATION > 60 Report ing units: RATE (test code = GFR) ml/mi n/1.73 m2 (Modified MDRD Formula)Referen ce Range: > or = 6 0 ml/min/1.73 m2 CREATININE (test code 0.90 MG/DL 0.52-1.04 N = CREAT) CALCIUM (test code = 8.9 MG/DL 8.4-10.2 N CA) CBC W/AUTO [id number] 05:40:00 Test Item Value Reference Range Interpretation Comments WHITE BLOOD CELL (test code = 5.0 K/MM3 3.8-9.8 N WBC) RED BLOOD CELL (test code = 4.45 M/MM3 3.58-4.97 N RBC) HEMOGLOBIN (test code = HGB) 12.7 G/DL 11.2-14.9 N HEMATOCRIT (test code = HCT) 43.1 % 33.2-43.5 N MEAN CELL VOLUME (test code = 97 fL 80.7-99.1 N MCV) MEAN CELL HGB (test code = MCH) 28.5 pg 27.0-34.1 N MEAN CELL HGB CONCETRATION 29.5 % 32.2-35.7 L (test code = MCHC) RED CELL DISTRIBUTION WIDTH 13.9 % 12.1-15.2 N (test code = RDW) PLATELET COUNT (test code = 106 K/MM3 129-368 L PLT) MEAN PLATELET VOLUME (test code 12.3 fl 7.4-10.4 H = MPV) NEUTROPHIL % (test code = NT%) 43.9 % 43-75 N IMMATURE GRANULOCYTE % (test 0.2 % 0.0-2.0 N code = IG%) LYMPHOCYTE % (test code = LY%) 43.5 % 14-44 N MONOCYTE % (test code = MO%) 10.4 % 4-13 N EOSINOPHIL % (test code = EO%) 1.6 % 0-6 N BASOPHIL % (test code = BA%) 0.4 % 0-2 N NUCLEATED RBC % (test code = 0.0 % 0-1.0 N NRBC%) NEUTROPHIL # (test code = NT#) 2.20 K/mm3 2.0-7.6 N IMMATURE GRANULOCYTE # (test 0.01 x10 3/uL 0-0.03 N code = IG#) LYMPHOCYTE # (test code = LY#) 2.18 K/mm3 1.0-3.8 N MONOCYTE # (test code = MO#) 0.52 K/mm3 0.1-0.8 N EOSINOPHIL # (test code = EO#) 0.08 K/mm3 0.0-0.2 N BASOPHIL # (test code = BA#) 0.02 K/mm3 0.0-0.2 N NUCLEATED RBC # (test code = 0.00 K/mm3 0.0-0.1 N NRBC#) GLUCOSE BEDSIDE [id number] 20:22:00 Test Item Value Reference Range Interpretation Comments GLUCOSE BEDSIDE TESTING (test code = 92 MG/DL 60-99 N GLUBED) - XR CHEST [id number] 12:24:00 [facility]: 1965 Sex: F Patient Name: SUSIE WHITTAKER Unit No: [id number] EXAMS: CPT CODE: [id number] XR CHEST 1V [id number] CLINICAL HISTORY: S/P ICD. LOCATION: A1 FINDINGS: No comparison studies. A portable AP view of the chest is dated 08/06/2021 at 1214 hours. There is mild cardiomegaly. Dual-lead cardiac conduction device overlies the left chest. No pneumothorax. There is pulmonary vascular congestion with diffuse interstitial and mild alveolar infiltrates. No pleural effusions. No acute skeletal or soft tissue abnormalities are identified. IMPRESSION: 1. There is pulmonary vascular congestion with diffuse interstitial and mild alveolar infiltrates. This may be related to edema. Please correlate clinically. 2. Mild cardiomegaly. at 1224 Reported and signed by: Live Geiger MD CC: Nupur Ortiz MD Technologist: Carmine Alfaro (RT) Transcrpt Date/Tm/Trnsp: 08/06/2021 (1224) [email or web address] Orig Print D/T: S: 08/06/2021 (1227) [facility] NAME: SUSIE WHITTAKER [address] [place] [address] PHYS: [place] [address] :1965 AGE: 55 SEX: F LOC: LOUANN Kerr PHONE #: [phone] EXAM DATE: 08/06/2021 STATUS: ADM IN FAX #: [phone] RADIOLOGY NO: PAGE 1 Signed Report BASIC METABOLIC [id number] 09:16:00 Test Item Value Reference Range Interpretation Comments SODIUM (test code = 144 MMOL/L 137-145 N NA) POTASSIUM (test code = 3.2 MMOL/L 3.5-5.1 L K) CHLORIDE (test code = 105 MMOL/L 98-107 N CL) CARBON DIOXIDE (test 31 MMOL/L 22-30 H code = CO2) ANION GAP (test code = 11 MMOL/L 14-24 L GAP) GLUCOSE (test code = 94 MG/DL 74-106 N GLU) BLOOD UREA NITROGEN 9 MG/DL 7-17 N (test code = BUN) GLOMERULAR FILTRATION > 60 Report ing units: RATE (test code = GFR) ml/mi n/1.73 m2 (Modified MDRD Formula)Referen ce Range: > or = 6 0 ml/min/1.73 m2 CREATININE (test code 0.80 MG/DL 0.52-1.04 N = CREAT) CALCIUM (test code = 9.3 MG/DL 8.4-10.2 N CA) Comments to Relations Mgr: NURSE WILL BRING SPECIMEN TO LABIs this a LINE draw? N LIPID PROFILE (CORONARY RISK)2021-08-06 09:16:00 Test Item Value Reference Range Interpretation Comments TRIGLYCERIDES (test 89 MG/DL TRIGLYCE RIDES code = TRIG) REFERENCE RANGE:Normal: < 150 mg/dLBorderline High: 150-199 mg/dLHi gh: 200-499 mg/dLVe ry High: >=500 mg/ dL CHOLESTEROL (test code 164 MG/DL <200 = CHOL) HDL CHOLESTEROL (test 49 MG/DL 40-59 N code = HDL) LIPOPROTEIN LDL (test 94 MG/DL 0-99 N code = LDL) OPTIMAL........ .<100 mg/dLNEAR OPTIMAL/ABOVE OPTIMAL........ .100-12 9 mg/dL BORDERLINE HIGH.........13 0-159 mg/dL HIGH.........16 0-189 mg/dL VERY HIGH...... ...>/= 190 mg/dL Comments to Relations Mgr: NURSE WILL BRING SPECIMEN TO LABIs this a LINE draw? N [id number] 09:16:00 Test Item Value Reference Range Interpretation Comments MAGNESIUM (test code = MAG) 1.8 MG/DL 1.6-2.3 N Comments to Relations Mgr: NURSE WILL BRING SPECIMEN TO LABIs this a LINE draw? N BASIC METABOLIC [id number] 09:05:00 Test Item Value Reference Range Interpretation Comments SODIUM (test code = 144 MMOL/L 137-145 N NA) POTASSIUM (test code = 3.2 MMOL/L 3.5-5.1 L K) CHLORIDE (test code = 105 MMOL/L 98-107 N CL) CARBON DIOXIDE (test 31 MMOL/L 22-30 H code = CO2) ANION GAP (test code = 11 MMOL/L 14-24 L GAP) GLUCOSE (test code = 94 MG/DL 74-106 N GLU) BLOOD UREA NITROGEN 9 MG/DL 7-17 N (test code = BUN) GLOMERULAR FILTRATION > 60 Report ing units: RATE (test code = GFR) ml/mi n/1.73 m2 (Modified MDRD Formula)Referen ce Range: > or = 6 0 ml/min/1.73 m2 CREATININE (test code 0.80 MG/DL 0.52-1.04 N = CREAT) CALCIUM (test code = 9.3 MG/DL 8.4-10.2 N CA) Comments to Relations Mgr: NURSE WILL BRING SPECIMEN TO LABIs this a LINE draw? N LIPID PROFILE (CORONARY RISK)2021-08-06 09:05:00 Test Item Value Reference Range Interpretation Comments TRIGLYCERIDES (test 89 MG/DL TRIGLYCE RIDES code = TRIG) REFERENCE RANGE:Normal: < 150 mg/dLBorderline High: 150-199 mg/dLHi gh: 200-499 mg/dLVe ry High: >=500 mg/ dL CHOLESTEROL (test code 164 MG/DL <200 = CHOL) HDL CHOLESTEROL (test 49 MG/DL 40-59 N code = HDL) LIPOPROTEIN LDL (test MG/DL 0-99 code = LDL) Comments to Relations Mgr: NURSE WILL BRING SPECIMEN TO LABIs this a LINE draw? N [id number] 09:05:00 Test Item Value Reference Range Interpretation Comments MAGNESIUM (test code = MAG) 1.8 MG/DL 1.6-2.3 N Comments to Relations Mgr: NURSE WILL BRING SPECIMEN TO LABIs this a LINE draw? N PROTHROMBIN [id number] 09:01:00 Test Item Value Reference Range Interpretation Comments PROTHROMBIN TIME 11.4 SECONDS 9.5-12.7 N PATIENT (test code = PTP) INTERNATIONAL NORMAL 1.0 0.86-1.14 N The INR is to be RATIO (test code = used only for INR) monitoring oral anticoagulantth erap y. INDICATION I NR VALUE ---- ---- ---- -------1. Prophylaxis, de ep venous thrombos is, including hig h risk surgery. 2.0 - 3.0 2. Prophylaxis, de ep venous thrombos is, hip surgery, treatment for d eep venous thrombosis or pulmonary prevention of systemic emboli sm in patients wit h valvular heart disease, atrial fibrillation, tissue heart va lve, or acute myocar dial infarction. 2.0 - 3 .0 3. Mechanical prosthesis hear t valves, recurrent syste jesus embolism. 3.0 - 4.5 Comments to Relations Mgr: NURSE WILL BRING SPECIMEN TO LABPTT ACTIVATED 2021-08-06 09:01:00 Test Item Value Reference Range Interpretation Comments PTT ACTIVATED (test code = APTT) 31.5 SECONDS 25.1-36.5 N Comments to Relations Mgr: NURSE WILL BRING SPECIMEN TO LABCBC W/AUTO DIFF 2021-08-06 08:51:00 Test Item Value Reference Range Interpretation Comments WHITE BLOOD CELL (test code = 5.8 K/MM3 3.8-9.8 N WBC) RED BLOOD CELL (test code = 4.98 M/MM3 3.58-4.97 H RBC) HEMOGLOBIN (test code = HGB) 14.7 G/DL 11.2-14.9 N HEMATOCRIT (test code = HCT) 46.4 % 33.2-43.5 H MEAN CELL VOLUME (test code = 93 fL 80.7-99.1 N MCV) MEAN CELL HGB (test code = MCH) 29.5 pg 27.0-34.1 N MEAN CELL HGB CONCETRATION 31.7 % 32.2-35.7 L (test code = MCHC) RED CELL DISTRIBUTION WIDTH 13.7 % 12.1-15.2 N (test code = RDW) PLATELET COUNT (test code = 126 K/MM3 129-368 L PLT) MEAN PLATELET VOLUME (test code 12.4 fl 7.4-10.4 H = MPV) NEUTROPHIL % (test code = NT%) 54.2 % 43-75 N IMMATURE GRANULOCYTE % (test 0.3 % 0.0-2.0 N code = IG%) LYMPHOCYTE % (test code = LY%) 35.2 % 14-44 N MONOCYTE % (test code = MO%) 9.1 % 4-13 N EOSINOPHIL % (test code = EO%) 0.9 % 0-6 N BASOPHIL % (test code = BA%) 0.3 % 0-2 N NUCLEATED RBC % (test code = 0.0 % 0-1.0 N NRBC%) NEUTROPHIL # (test code = NT#) 3.15 K/mm3 2.0-7.6 N IMMATURE GRANULOCYTE # (test 0.02 x10 3/uL 0-0.03 N code = IG#) LYMPHOCYTE # (test code = LY#) 2.05 K/mm3 1.0-3.8 N MONOCYTE # (test code = MO#) 0.53 K/mm3 0.1-0.8 N EOSINOPHIL # (test code = EO#) 0.05 K/mm3 0.0-0.2 N BASOPHIL # (test code = BA#) 0.02 K/mm3 0.0-0.2 N NUCLEATED RBC # (test code = 0.00 K/mm3 0.0-0.1 N NRBC#) Comments to Relations Mgr: NURSE WILL BRING SPECIMEN TO LABCOVID 19 Asymptomatic IH [id number] 05:59:00 Test Item Value Reference Range Interpretation Comments COVID 19 NEGATIVE Negative "Negative resul ts from Asymptomatic IH AG patients with symptom (test code = onset beyondfiv e days, COVNONPUIAG) should be gino carlos as presumptive, andconfirmation with a molecular assay , if necessary forpa tient management may be performed. Nega tive results do notr ule out COVID-19 and sh ould not be used as the sole basisfor treatm ent or patient managem ent decisions, includinginfect ion control decisio ns. Negative result s should beconsidered in the context of a pa tients recent exposure s,history, and the presenc e of clinical signs and symptomsconsist ent with COVID-19.This t est detects both vi able andnon-viable S ARS-CoV and SARS CoV-2. Test performance dep endson the amount of virus (antigen) in the sample." MR BRAIN W WO [id number] 20:31:24 No acute intracranial abnormality. Trigeminal nerves are not clearly visualized due to artifact inthe region.The IAC, CP angles and facial nerves are unremarkable. Preliminary Report Dictated by Resident: Kera Day I, Kal Sidhu MD., have reviewed this study and agree with the abovereport.EXAM: MR BRAIN W WO CONTRAST HISTORY: 54-year-old female with right facial pain, evaluate for trigeminalneuraligia COMPARISON: None TECHNIQUE: Multiplanar multisequence imaging of the brain was obtained on a1.5 Ariana MRI with and without contrast. 20 ml of MultiHance wasadministered intravenously. FINDINGS: The large vkqzc-dy-ocad and suboptimal imaging was essential limits theunderlying evaluation. The ventricles and cerebral sulci are normal in caliber and configuration.No midline shift, hydrocephalus or pathological extra-axial fluidcollection is present. The basal cisterns are unremarkable. No restricted diffusion is present to suggest acute infarct. No abnormalparenchymal signal. No abnormal gradient blooming. No abnormal parenchymalenhancement. A partial empty sella configuration is noted. Evaluation of the internal auditory canals and cerebellopontine anglesbilaterally shows no mass orpathologic enhancement. No pathologicenhancement in the inner ear structures.The cochlear apertures appearpatent. The inner ear structures, including the semicircular canals,vestibule, and cochlea are grossly unremarkable. The vestibular aqueductsare not enlarged. The trigeminal nerves is noted clearly visualized. The facial nerves andthe vestibulocochlear nerves are seen normally coursing from the brainstemto the internal auditory canals bilaterally. The T2 flow voids for the major intracranial vessels are unremarkable. Noabnormal fluid signal is present in the mastoid air cells or paranasal airsinuses. [facility], Radiant Results Inft User - 06/01/2020 3:32 PM CDTEXAM: MR BRAIN W WO CONTRASTHISTORY:54-year-old female with right facial pain, evaluate for trigeminalneuraligia COMPARISON: NoneTECHNIQUE: Multiplanar multisequence imaging of the brain was obtained on a1.5 Ariana MRI with and without contrast. 20 ml of MultiHance wasadministered intravenously.FINDINGS:The large aejdm-ed-yqew and suboptimal imaging was essential limits theunderlying evaluation.The ventricles and cerebral sulci are normal in caliber and configuration.No midline shift, hydrocephalus or pathological extra-axial fluidcollection is present. The basal cisterns are unremarkable.No restricted diffusion is present to suggest acute infarct. No abnormalparenchymal signal. No abnormal gradient blooming. No abnormal parenchymalenhancement. A partial empty sella configuration is noted.Evaluation of the internal auditory canals and cerebellopontine anglesbilaterally shows no mass or pathologic enhancement. No pathologicenhancement in the inner ear structures.The cochlear apertures appearpatent. The inner ear structures, including the semicircular canals,vestibule, and cochlea are grossly unremarkable. The vestibular aqueductsare not enlarged.The trigeminal nerves is noted clearly visualized. The facial nerves andthe vestibulocochlear nerves are seen normally coursing from the brainstemto the internal auditory canals bilaterally. The T2 flow voids for the major intracranial vessels are unremarkable. Noabnormal fluid signal is present in the mastoid air cells or paranasal airsinuses. IMPRESSIONNo acute intracranial abnormality. Trigeminal nerves are not clearly visualized due to artifact in the region.The IAC, CP angles andfacial nerves are unremarkable.Preliminary Report Dictated by Resident: Kal Benson MD., have reviewed this study and agree with the abovereport.[facility]
[2021-10-14] MEDS ORDERED: METOPROLOL TARTRATE 5 MG/5 ML INJ IV ONE (12:50)
--- NOTE | 2021-10-14 13:04 | RAD REPORT ---
EXAM DESCRIPTION: Isis Single View10/14/2021 12:52 pm CLINICAL HISTORY: Weakness COMPARISON: April 2021 FINDINGS: Lungs appear grossly clear. Heart is mildly to moderately enlarged Pacemaker leads place
[2021-10-14 13:08] LABS: Absolute Lymphocytes (CBC) 1.7 K/uL (0.7-4.9); Basophils % 0.5 % (0-1.3); Hematocrit 43.7 % (36.0-45.0); Lymphocytes % 30.6 % (15.3-44.8); MPV 9.7 fL (7.6-11.3); RBC Red Blood Cell Count 4.92 M/uL (3.86-4.86)
[2021-10-14 13:10] LABS: Protime INR 1.2
[2021-10-14 13:34] LABS: ALT/SGPT 49 U/L (12-78); AST/SGOT 23 U/L (15-37); Albumin 3.1 g/dL (3.4-5.0); Alkaline Phosphatase 47 U/L (45-117); BUN Blood Urea Nitrogen 16 mg/dL (7-18); Bicarbonate 30 mmol/L (21-32); Bilirubin Direct 0.2 mg/dL (0-0.2); Bilirubin Total 0.8 mg/dL (0.2-1.0); Glucose Level 124 mg/dL (74-106); Magnesium 2.1 mg/dL (1.8-2.4); NT PRO-BNP 759 pg/mL (<125); Protein, Total 6.6 g/dL (6.4-8.2); Sodium Level 145 mmol/L (136-145); Troponin (Emerg Dept Use Only) < 0.02 ng/mL (0.0-0.045)
[2021-10-14] MEDS ORDERED: ACETAMINOPHEN 500 MG TAB ONE (14:27)
[2021-10-14] MEDS ORDERED: DIGOXIN 0.25 MG/ML AMP ONE (16:43)
[2021-10-14] MEDS ORDERED: NA CHLORIDE 0.9% 1,000 ML ONE (16:43)
--- NOTE | 2021-10-14 18:07 | ER ---
Nurse's Notes [facility] Name: Madhavi Michael Age: 55 yrs Sex: Female : 1965 Arrival Date: 10/14/2021 Time: 11:52 Bed 17 Private MD: Diagnosis: Weakness;Other malaise and fatigue;Chronic atrial fibrillation-With rapid ventricular response Presentation: 10/14 11:53 Chief complaint: Patient states: Generalized weakness for multiple weeks. States 6 increased "fluid" pill over the last couple of weeks but believes the weakness started after pace maker placement. Coronavirus screen: Vaccine status: Patient reports receiving the 2nd dose of the covid vaccine. 11:53 Method Of Arrival: EMS: [facility] 11:56 Ebola Screen: Patient negative for fever greater than or equal to 101.5 degrees jh6 Fahrenheit, and additional compatible Ebola Virus Disease symptoms Patient denies exposure to infectious person. No symptoms or risks identified at this time. Initial Sepsis Screen: Does the patient meet any 2 criteria? No. Patient's initial sepsis screen is negative. Does the patient have a suspected source of infection? No. Patient's initial sepsis screen is negative. Risk Assessment: Do you want to hurt yourself or someone else? Patient reports no desire to harm self or others. Onset of symptoms was September 26, 2021. 11:56 Acuity: SISSY 3 jh6 Triage Assessment: 11:58 General: Appears in no apparent distress. Behavior is calm, cooperative. Pain: Denies [facility] pain. Historical: - Allergies: 16:41 NKA; jl7 - PMHx: 16:41 Asthma; COPD; CVA; Diabetes - NIDDM; Leaking Veins x2 Right Leg; neuropathy; sciatica; jl7 Sleep Apnea; Atrial Fib; - Immunization history:: Adult Immunizations up to date, Client reports receiving the 2nd dose of the Covid vaccine, Date received: February 24, 2021 Flu vaccine is up to date. - Social history:: Smoking status: Patient reports the use of cigarette tobacco products, reports smoking 10 cigarettes per day., Patient/guardian denies using alcohol, street drugs. Screenin:30 Abuse screen: Denies threats or abuse. Nutritional screening: No deficits noted. cc4 Tuberculosis screening: No symptoms or risk factors identified. Fall Risk None identified. Assessment: 12:50 General: Appears in no apparent distress. comfortable, obese, well nourished, Behavior jh6 is calm, cooperative. 12:50 Pain: Complains of pain in right mid back Pain does not radiate. Pain currently is 5 jh6 out of 10 on a pain scale. Quality of pain is described as tender, gnawing, Pain began 2-3 days ago. Is continuous, Aggravated by increased activity, repositioning. Cardiovascular: Reports fatigue, since 08/06/21 Rhythm is atrial fibrillation with rapid ventricular response. Respiratory: No deficits noted. 12:53 Reassessment: Dr. Sanchez notified of HR and BP, VO for 2.5 mg Lopressor q5 min X , pt jl7 medicated as ordered. 12:57 Reassessment: Dr. Sanchez at bedside. jl7 13:30 Reassessment: Patient and/or family updated on plan of care and expected duration. Pain jh6 level reassessed. Patient is alert, oriented x 3, equal unlabored respirations, skin warm/dry/pink. Pt report hx of a fib but unknown if well controlled. States that he does not feel that her hr is high but does note that her hr is irregular.. 14:30 Reassessment: No changes from previously documented assessment. Lopressor given 2.5mg jh6 sivp, pt tolerating med well as b/p did not drop. Hr did decrease from 129-100. 16:00 Reassessment: Patient and/or family updated on plan of care and expected duration. Pain jh6 level reassessed. Patient is alert, oriented x 3, equal unlabored respirations, skin warm/dry/pink. PT sitting up on the side of the bed. no SOB or c/p per pt. call light in reach. . 17:36 Reassessment: No changes from previously documented assessment. Patient and/or family jh6 updated on plan of care and expected duration. Pain level reassessed. 19:30 Reassessment: Patient appears in no apparent distress at this time. General: Appears in cc4 no apparent distress. comfortable, Behavior is calm, cooperative. Pain: Denies pain. Neuro: No deficits noted. Level of Consciousness is awake, alert, obeys commands, Oriented to person, place, time, situation. Cardiovascular: Rhythm is atrial fibrillation. Respiratory: Reports shortness of breath Airway is patent Breath sounds are clear bilaterally. GI: No signs and/or symptoms were reported involving the gastrointestinal system. : No signs and/or symptoms were reported regarding the genitourinary system. EENT: No signs and/or symptoms were reported regarding the EENT system. Derm: No deficits noted. Skin is intact. Musculoskeletal: No deficits noted. Capillary refill < 3 seconds, Range of motion: intact in all extremities. 19:30 Reassessment: IV NS patent infusing right FA # 20 g saline lock \\T\\ 125 ml/hr with no cc4 s/sx's of infection/infiltration noted of site; reports SOB since pacemaker placement for bradycardia 08/06/2021; O2 sat 97-98%/RA; A. fib with no ventricular ectopy; VR 90's-102. 20:30 Reassessment: Patient appears in no apparent distress at this time. No changes from cc4 previously documented assessment. Sitting on edge of bed listening to ball game; denies any complaints; IV NS patent/infusing right FA with no difficulty \\T\\ previous rate. 21:25 Reassessment: Patient appears in no apparent distress at this time. No changes from cc4 previously documented assessment. Report telephoned to DAKSHA Alonso with DAKSHA Alonso requesting me to hold patient for short time while she acquires bed for room; VSS. Vital Signs: 11:56 BP 111 / 89; Pulse 100; Resp 20; Temp 98.2(O); Pulse Ox 100% ; Weight 141.52 kg; Height 6 5 ft. 7 in. (170.18 cm); Pain 0/10; 12:45 BP 112 / 61; Pulse 138; Resp 29; Pulse Ox 98% ; jl7 13:16 BP 100 / 65; Pulse 108; Resp 25; Pulse Ox 97% ; jl7 14:00 BP 106 / 81; Pulse 114; Resp 20; Pulse Ox 98% ; Pain 5/10; jh6 14:25 BP 102 / 69; Pulse 112; Resp 22; Pulse Ox 98% ; Pain 5/10; jh6 15:00 BP 102 / 64; Pulse 122; Resp 20; Temp 98.2(O); Pulse Ox 98% ; jh6 16:00 BP 114 / 82; Pulse 131; Resp 20; Pulse Ox 100% ; Pain 2/10; jh6 16:45 BP 114 / 82; Pulse 125; Resp 24; Pulse Ox 97% ; jl7 17:41 BP 100 / 76; Pulse 136; Resp 20; Pulse Ox 98% ; jh6 19:30 BP 119 / 70; Pulse 99; Resp 22 S; Temp 98.1(O); Pulse Ox 97% on R/A; cc4 20:30 BP 130 / 89; Pulse 101; Resp 22 S; Temp 98.1(O); Pulse Ox 98% on R/A; cc4 11:56 Body Mass Index 48.87 (141.52 kg, 170.18 cm) [facility] ED Course: 11:52 Patient arrived in ED. em1 11:53 Marnie Winston, RN is Primary Nurse. 6 11:57 Triage completed. [facility] 11:58 Arm band placed on left wrist. Patient placed in an exam room, on a stretcher, on [facility] correctional program specialist, on pulse oximetry. 12:04 Aman Sanchez MD is Attending Physician. kdr 12:52 XRAY Chest (1 view) In Process Unspecified. EDMS 18:05 Ivan Rodriguez MD is Hospitalizing Provider. kdr 19:30 Patient has correct armband on for positive identification. Placed in gown. Bed in low cc4 position. Call light in reach. Side rails up X 1. systems programmer on. Pulse ox on. NIBP on. 19:30 No provider procedures requiring assistance completed. cc4 21:41 Patient admitted, IV remains in place. cc4 Administered Medications: 13:16 Drug: Lopressor (metoprolol) 5 mg Route: IVP; Site: right forearm; [facility] 13:16 Follow up: Response: Cardiac rhythm changed [facility] 13:17 Follow up: 2.5 mg administered at 1253 [facility] 14:25 Follow up: BP 102 / 69; Pulse 112 bpm; Resp 22 bpm; Pulse Ox 98% ; Pain 5/10 Adult; [facility] Response: Other 14:36 Drug: Tylenol 1000 mg Route: PO; [facility] 16:46 Follow up: Response: No adverse reaction; Pain is decreased [facility] 16:45 Drug: NS 0.9% 1000 ml Route: IV; Rate: 1 bolus; Site: right forearm; 7 16:45 Drug: NS 0.9% 1000 ml Route: IV; Rate: 1 bolus; Site: right forearm; jl7 16:50 Drug: Digoxin 0.5 mg Route: IVP; Site: right forearm; jl7 19:30 Follow up: Response: No adverse reaction; Other cc4 Intake: Outcome: 18:06 Decision to Hospitalize by Provider. kdr 21:40 Admitted to Med/surg accompanied by nurse, via wheelchair, room 229, Report called to cc4 DAKSHA Alonso. 21:40 Condition: stable 21:40 Instructed on the need for admit, Demonstrated understanding of instructions. 21:42 Patient left the ED. cc4 Signatures: Dispatcher [employer] EDMS Aman Sanchez MD MD kdr Catarino Castellano em1 Bruce Frankel RN RN jl7 Marcy Barahona RN RN cc4 Marnie Winston RN RN jh6
--- NOTE | 2021-10-14 18:08 | EDPHYS ---
Physician Documentation [facility] Name: Madhavi Michael Age: 55 yrs Sex: Female : 1965 Arrival Date: 10/14/2021 Time: 11:52 Bed 17 Private MD: ED Physician Aman Sanchez HPI: 10/14 18:02 This 55 yrs old Black Female presents to ER via EMS with complaints of Generalized kdr weakness and malaise. 18:02 Severity of symptoms: At their worst the symptoms were mild moderate in the emergency kdr department the symptoms are unchanged. The patient has not experienced similar symptoms in the past. The patient has not recently seen a physician. Patient states that she has been feeling generally weak for the past 2 weeks in fact approximately 2 months since she had a pacemaker placed by Dr. Cheng. She is also had some changes in her medications both up and down over the past few weeks in an attempt to resolve her generalized malaise and weakness. However none of this has improved her conditions.. Historical: - Allergies: 16:41 NKA; jl7 - PMHx: 16:41 Asthma; COPD; CVA; Diabetes - NIDDM; Leaking Veins x2 Right Leg; neuropathy; sciatica; jl7 Sleep Apnea; Atrial Fib; - Immunization history:: Adult Immunizations up to date, Client reports receiving the 2nd dose of the Covid vaccine, Date received: February 24, 2021 Flu vaccine is up to date. - Social history:: Smoking status: Patient reports the use of cigarette tobacco products, reports smoking 10 cigarettes per day., Patient/guardian denies using alcohol, street drugs. ROS: 18:02 Constitutional: Negative for fever, chills, and weight loss. She has had generalized kdr weakness and malaise Eyes: Negative for injury, pain, redness, and discharge, Neck: Negative for injury, pain, and swelling, Cardiovascular: Negative for chest pain, palpitations, and edema, Respiratory: Negative for shortness of breath, cough, wheezing, and pleuritic chest pain, Abdomen/GI: Negative for abdominal pain, nausea, vomiting, diarrhea, and constipation, Back: Negative for injury and pain, : Negative for injury, bleeding, discharge, and swelling, MS/Extremity: Negative for injury and deformity, Skin: Negative for injury, rash, and discoloration, Psych: Negative for depression, anxiety, suicide ideation, homicidal ideation, and hallucinations, Allergy/Immunology: Negative for hives, rash, and allergies, Endocrine: Negative for neck swelling, polydipsia, polyuria, polyphagia, and marked weight changes, Hematologic/Lymphatic: Negative for swollen nodes, abnormal bleeding, and unusual bruising. 18:02 Neuro: Positive for weakness, Generalized malaise. Exam: 18:02 Constitutional: This is a well developed, well nourished patient who is awake, alert, kdr and in no acute distress. Head/Face: Normocephalic, atraumatic. Eyes: Pupils equal round and reactive to light, extra-ocular motions intact. Lids and lashes normal. Conjunctiva and sclera are non-icteric and not injected. Cornea within normal limits. Periorbital areas with no swelling, redness, or edema. ENT: Nares patent. No nasal discharge, no septal abnormalities noted. Tympanic membranes are normal and external auditory canals are clear. Oropharynx with no redness, swelling, or masses, exudates, or evidence of obstruction, uvula midline. Mucous membranes moist. Neck: Trachea midline, no thyromegaly or masses palpated, and no cervical lymphadenopathy. Supple, full range of motion without nuchal rigidity, or vertebral point tenderness. No Meningismus. Chest/axilla: Normal chest wall appearance and motion. Nontender with no deformity. No lesions are appreciated. Respiratory: Lungs have equal breath sounds bilaterally, clear to auscultation and percussion. No rales, rhonchi or wheezes noted. No increased work of breathing, no retractions or nasal flaring. Abdomen/GI: Soft, non-tender, with normal bowel sounds. No distension or tympany. No guarding or rebound. No evidence of tenderness throughout. Back: No spinal tenderness. No costovertebral tenderness. Full range of motion. Skin: Warm, dry with normal turgor. Normal color with no rashes, no lesions, and no evidence of cellulitis. MS/ Extremity: Pulses equal, no cyanosis. Neurovascular intact. Full, normal range of motion. Neuro: Awake and alert, GCS 15, oriented to person, place, time, and situation. Cranial nerves II-XII grossly intact. Motor strength 5/5 in all extremities. Sensory grossly intact. Cerebellar exam normal. Normal gait. Psych: Awake, alert, with orientation to person, place and time. Behavior, mood, and affect are within normal limits. 18:02 Cardiovascular: Rate: tachycardic, Rhythm: irregularly irregular, Pulses: no pulse deficits are appreciated, Heart sounds: normal, Edema: 1+ edema to level of left ankle, left foot, right ankle and right foot. Vital Signs: 11:56 BP 111 / 89; Pulse 100; Resp 20; Temp 98.2(O); Pulse Ox 100% ; Weight 141.52 kg; Height 6 5 ft. 7 in. (170.18 cm); Pain 0/10; 12:45 BP 112 / 61; Pulse 138; Resp 29; Pulse Ox 98% ; jl7 13:16 BP 100 / 65; Pulse 108; Resp 25; Pulse Ox 97% ; 7 14:00 BP 106 / 81; Pulse 114; Resp 20; Pulse Ox 98% ; Pain 5/10; jh6 14:25 BP 102 / 69; Pulse 112; Resp 22; Pulse Ox 98% ; Pain 5/10; 6 15:00 BP 102 / 64; Pulse 122; Resp 20; Temp 98.2(O); Pulse Ox 98% ; 6 16:00 BP 114 / 82; Pulse 131; Resp 20; Pulse Ox 100% ; Pain 2/10; 6 16:45 BP 114 / 82; Pulse 125; Resp 24; Pulse Ox 97% ; jl7 17:41 BP 100 / 76; Pulse 136; Resp 20; Pulse Ox 98% ; jh6 19:30 BP 119 / 70; Pulse 99; Resp 22 S; Temp 98.1(O); Pulse Ox 97% on R/A; cc4 20:30 BP 130 / 89; Pulse 101; Resp 22 S; Temp 98.1(O); Pulse Ox 98% on R/A; cc4 11:56 Body Mass Index 48.87 (141.52 kg, 170.18 cm) [facility] MDM: 18:02 Data reviewed: vital signs, nurses notes, lab test result(s), EKG, radiologic studies. kdr Counseling: I had a detailed discussion with the patient and/or guardian regarding: the historical points, exam findings, and any diagnostic results supporting the discharge/admit diagnosis, lab results, radiology results, the need for further work-up and treatment in the hospital. ED course: While the patient remained asymptomatic, her blood pressure continued to decrease while her rate remained uncontrolled but less than 120. 18:06 Patient medically screened. [facility] 10/14 12:07 Order name: Basic Metabolic Panel; Complete Time: 15:26 kdr 10/14 12:07 Order name: CBC with Diff; Complete Time: 15:26 kdr 10/14 12:07 Order name: LFT's; Complete Time: 15:26 kdr 10/14 12:07 Order name: Magnesium; Complete Time: 15:26 kdr 10/14 12:07 Order name: NT PRO-BNP; Complete Time: 15:26 kdr 10/14 12:07 Order name: PT-INR; Complete Time: 15: kdr 10/14 12:07 Order name: Troponin (emerg Dept Use Only); Complete Time: 15:26 kdr 10/14 18:16 Order name: CBC with Automated Diff [facility] 10/14 18:16 Order name: CBC with Automated Diff [facility] 10/14 18:16 Order name: Comprehensive Metabolic Panel [facility] 10/14 18:16 Order name: Comprehensive Metabolic Panel [facility] 10/14 18:16 Order name: Magnesium [facility] 10/14 18:16 Order name: Magnesium [facility] 10/14 18:16 Order name: NT PRO-BNP [facility] 10/14 12:07 Order name: XRAY Chest (1 view); Complete Time: 15:26 kdr 10/14 12:07 Order name: EKG; Complete Time: 12:08 [facility] 10/14 18:16 Order name: CONS Physician Consult [facility] 10/14 18:16 Order name: Heart Healthy [facility] 10/14 18:16 Order name: EKG Electrocardiogram [facility] 10/14 18:16 Order name: NT PRO-BNP [facility] 10/14 18:16 Order name: Phosphorus [facility] 10/14 18:16 Order name: Phosphorus [facility] 10/14 18:16 Order name: Troponin I [facility] 10/14 18:33 Order name: COVID-19 SARS RT PCR (Document "Date of Onset" if Symptomatic) 10/14 20:27 Order name: SARS-COV-2 RT PCR [facility] 10/14 12:07 Order name: Cardiac monitoring; Complete Time: 12:59 kdr 10/14 12:07 Order name: EKG - Nurse/Tech; Complete Time: 15:19 kdr 10/14 12:07 Order name: IV Saline Lock; Complete Time: 12:59 kdr 10/14 12:07 Order name: Labs collected and sent; Complete Time: 12:59 kdr 10/14 12:07 Order name: O2 Per Protocol; Complete Time: 12:59 kdr 10/14 12:07 Order name: O2 Sat Monitoring; Complete Time: 12:59 kdr 10/14 12:48 Order name: Labs - recollect needed: all labs hemolyzed please recollect; Complete em1 Time: 13:10/14 18:16 Order name: EKG Electrocardiogram EDMS Administered Medications: 13:16 Drug: Lopressor (metoprolol) 5 mg Route: IVP; Site: right forearm; [facility] 13:16 Follow up: Response: Cardiac rhythm changed [facility] 13:17 Follow up: 2.5 mg administered at [address] [facility] 14:25 Follow up: BP 102 / 69; Pulse 112 bpm; Resp 22 bpm; Pulse Ox 98% ; Pain 5/10 Adult; [facility] Response: Other 14:36 Drug: Tylenol 1000 mg Route: PO; [facility] 16:46 Follow up: Response: No adverse reaction; Pain is decreased [facility] 16:45 Drug: NS 0.9% 1000 ml Route: IV; Rate: 1 bolus; Site: right forearm; 7 16:45 Drug: NS 0.9% 1000 ml Route: IV; Rate: 1 bolus; Site: right forearm; 7 16:50 Drug: Digoxin 0.5 mg Route: IVP; Site: right forearm; 7 19:30 Follow up: Response: No adverse reaction; Other cc4 Disposition Summary: 10/14/21 18:06 Hospitalization Ordered Hospitalization Status: Inpatient Admission kdr Provider: Ivan Rodriguez Location: Telemetry/MedSurg (Inpatient) kdr Condition: Fair kdr Problem: an ongoing problem kdr Symptoms: have improved kdr Bed/Room Type: Standard kdr Room Assignment: 229(10/14/21 20:32) Diagnosis - Weakness kdr - Other malaise and fatigue kdr - Chronic atrial fibrillation - With rapid ventricular response kdr Forms: - Medication Reconciliation Form kdr - SBAR form kdr Signatures: Dispatcher [employer] EDMS Radha Erazo RN RN mw Rittger, Kevin, MD MD kdr Catarino Castellano em1 Bruce Frankel RN RN jl7 Marcy Barahona RN RN cc4 Marnie Winston RN RN jh6 Corrections: (The following items were deleted from the chart) 20:32 18:06 kdr lety
[2021-10-14] MEDS ORDERED: ACETAMINOPHEN 500 MG TAB PO PRN (18:11)
[2021-10-14] MEDS ORDERED: ONDANSETRON 4 MG/2 ML VIAL IV PRN (18:11)
--- NOTE | 2021-10-14 18:26 | P.HP ---
Certification for Inpatient Patient admitted to: Inpatient With expected LOS: >2 Midnights Patient will require the following post-hospital care: None Practitioner: I am a practitioner with admitting privileges, knowledge of patient current condition, hospital course, and medical plan of care. Services: Services provided to patient in accordance with Admission requirements found in Title 42 Section 412.3 of the Code of Federal Regulations Patient History Date of Service: 10/14/21 Reason for admission: Afib with RVR History of Present Illness: Patient is a 55yo who was admitted to the hospital with fatigue and weakness. Patient has also been feeling lightheaded since patient had pacemaker placement. Patient has not been feeling like herself and she came to the hospital for further evaluation. Patient had her heart rate from 90 to 110s. Spoke with patient's election assistant who recommended starting amiodarone. Patient was started on amiodarone and we will monitor patient. Allergies No Known Drug Allergies Allergy (Verified 12/25/19 09:58) Unknown Home Medications: Apixaban [Eliquis *] 2.5 mg PO DAILY 10/10/19 Aspirin Chewable [Aspirin Chewable*] 81 mg PO DAILY 10/10/19 Budesonide/Formoterol Fumarate [Symbicort 160-4.5 Mcg Inhaler] 1 puff IH BIDP PRN 10/10/19 Fluticasone [Flovent Hfa 110*] 2 puff IH BID PRN 10/10/19 Gabapentin 600 mg PO TID 10/10/19 Hydrocodone 10/APAP 325 [[place] 10/325*] 1 tab PO TIDP PRN 10/10/19 Montelukast Sodium [Singulair] 10 mg PO DAILY 10/10/19 Omeprazole [Prilosec] 40 mg PO DAILY 10/10/19 predniSONE [Prednisone*] 10 mg PO DAILY 10/10/19 Furosemide [Lasix*] 20 mg PO DAILY 10/14/21 Losartan Potassium 25 mg PO DAILY 10/14/21 Amiodarone HCl [Cordarone*] 200 mg PO BID #40 tab 10/15/21 carvediloL [Carvedilol] 12.5 mg PO BID #60 tablet 10/15/21 - Past Medical/Surgical History Diabetic: Yes -: Asthma -: Diabetes mellitus type 2 -: Hyperlipidemia -: Hypertension -: Obstructive sleep apnea -: Tobacco abuse -: Atrial fibrillation -: Chronic anti coagulation -: Obesity -: Cholecystectomy -: Tubal ligation -: Hysterectomy -: Right knee replacement -: hernia repair Psychosocial/ Personal History: The patient is currently . She has 3 children. She does not work. - Family History Mother Medical History: Hypertension - Social History Alcohol use: No CD- Drugs: No Caffeine use: Yes Review of Systems 10-point ROS is otherwise unremarkable Physical Examination - Vital Signs Temperature: 98 F Blood Pressure: 140/80 Pulse: 80 Respirations: 18 Pulse Ox (%): 94 - Physical Exam General: Alert, In no apparent distress, Oriented x3 HEENT: Atraumatic, PERRLA, Mucous membr. moist/pink, EOMI, Sclerae nonicteric Neck: Supple, 2+ carotid pulse no bruit, No LAD, Without JVD or thyroid abnormality Respiratory: Diminished, Expiratory wheezes Cardiovascular: Irregular heart rate/rhythm Gastrointestinal: Normal bowel sounds, Soft and benign, Non-distended, No tenderness Musculoskeletal: No clubbing, No swelling, No tenderness Neurological: Normal speech, Normal tone, Sensation intact, Cranial nerves 3-12 intact, Normal affect, Abnormal gait, Abnormal strength Lymphatics: No axilla or inguinal lymphadenopathy - Studies Laboratory Data (last 24 hrs) 10/14/21 12:57: PT 13.8 H, INR 1.20 10/14/21 12:57: WBC 5.60, Hgb 14.0, Hct 43.7, Plt Count 127 L 10/14/21 12:57: Sodium 145, Potassium 4.0, BUN 16, Creatinine 1.32 H, Glucose 124 H, Magnesium 2.1, Total Bilirubin 0.8, AST 23, ALT 49, Alkaline Phosphatase 47 Assessment & Plan - Problems (Diagnosis) (1) Atrial fibrillation Onset Date: 09/11/17 Current Visit: No Status: Acute Qualifiers: (2) Diabetes type 2, controlled Current Visit: No Status: Chronic Qualifiers: (3) Essential hypertension Current Visit: No Status: Chronic (4) Hypertension Onset Date: 09/11/17 Current Visit: No Status: Chronic (5) Obstructive sleep apnea Onset Date: 09/11/17 Current Visit: No Status: Chronic (6) Tobacco abuse Onset Date: 09/11/17 Current Visit: No Status: Chronic (7) Fatigue Current Visit: Yes Status: Acute (8) Weakness Current Visit: Yes Status: Acute (9) Orthostatic hypotension Current Visit: Yes Status: Acute - Plan Plan: 1. Start amiodarone per Cardiology recommendation 2. Adjust patient's medications to prevent orthostatics 3. Check thyroid studies 4. Continue monitoring cardiac status on telemetry 5. Monitor renal function and electrolytes 6. GI and DVT prophylaxis Discharge Plan: Home Plan to discharge in: Greater than 2 days - Advance Directives Does patient have a Living Will: No Does patient have a Durable POA for Healthcare: No - Code Status/Comfort Care Code Status Assessed: Yes Code Status: Full Code Critical Care: No Time Spent Managing PTS Care (In Minutes): 45
[2021-10-14] MEDS ORDERED: NACHLORIDE 0.45% 1,000 ML IV SCH (19:00)
[2021-10-14 22:10] VITALS: BMI 50.1
[2021-10-14] MEDS: DIGOXIN 0.25 MG/ML AMP IV SCH (23:17)
[2021-10-15 04:57] VITALS: O2SAT 95
[2021-10-15 06:00] LABS: Basophils % 0.3 % (0-1.3); Hematocrit 40.2 % (36.0-45.0); Lymphocytes % 33.5 % (15.3-44.8); MPV 9.7 fL (7.6-11.3); RBC Red Blood Cell Count 4.49 M/uL (3.86-4.86)
[2021-10-15] MEDS ORDERED: DIGOXIN 0.25 MG/ML AMP ONE (06:07)
[2021-10-15] MEDS: DIGOXIN 0.25 MG/ML AMP IV SCH (06:11)
[2021-10-15 06:27] LABS: Albumin 3.1 g/dL (3.4-5.0); Bilirubin Total 0.7 mg/dL (0.2-1.0); Phosphorus 3.4 mg/dL (2.5-4.9); Potassium 4.1 mmol/L (3.5-5.1); Protein, Total 6.3 g/dL (6.4-8.2)
[2021-10-15] MEDS ORDERED: AMIODARONE HCL 200 MG TAB PO ONE (13:46)
[2021-10-15] MEDS ORDERED: HOME MED 1 EA UNK (Budesonide/Formoterol Fumarate [Symbicort 160-4.5 Mcg Inhaler] 10.2 GM IH PRN (14:50)
[2021-10-15] MEDS ORDERED: FLUTICASONE 110 MCG/PUFF 12 GM INH IH PRN (14:55)
[2021-10-15] MEDS ORDERED: HYDROCODONE/APAP 10/325 TAB PO PRN (14:55)
[2021-10-15 15:16] VITALS: BP 140/80; TEMP 98
--- NOTE | 2021-10-15 15:18 | P.DS ---
Discharge Date: 10/15/21 Disposition: ROUTINE DISCHARGE Discharge Condition: GOOD Reason for Admission: Afib with RVR - Problems (1) Atrial fibrillation Onset Date: 09/11/17 Current Visit: No Status: Acute Qualifiers: (2) Diabetes type 2, controlled Current Visit: No Status: Chronic Qualifiers: (3) Essential hypertension Current Visit: No Status: Chronic (4) Hypertension Onset Date: 09/11/17 Current Visit: No Status: Chronic (5) Obstructive sleep apnea Onset Date: 09/11/17 Current Visit: No Status: Chronic (6) Tobacco abuse Onset Date: 09/11/17 Current Visit: No Status: Chronic (7) Fatigue Current Visit: Yes Status: Acute (8) Weakness Current Visit: Yes Status: Acute (9) Orthostatic hypotension Current Visit: Yes Status: Acute Brief History of Present Illness: Patient is a 55yo who was admitted to the hospital with fatigue and weakness. Patient has also been feeling lightheaded since patient had pacemaker placement. Patient has not been feeling like herself and she came to the hospital for further evaluation. Patient had her heart rate from 90 to 110s. Spoke with aydin boyd's manager massage department who recommended starting amiodarone. Patient was started on amiodarone and we will monitor patient. Hospital Course: Patient is clinically done well during hospital stay. Patient be discharged on amiodarone 200 mg twice a day for a week then 200 mg daily. Patient will have aldactone/hydrochlorothiazide discontinued. Patient will also decrease dose of carvedilol to 12.5 mg p.o. b.i.d.. At this time, patient is stable for discharge home. Vital Signs/Physical Exam: Temp Pulse Resp BP Pulse Ox 98 F 80 18 140/80 94 10/15/21 15:16 10/15/21 15:16 10/15/21 15:16 10/15/21 15:16 10/15/21 15:16 General: Alert, In no apparent distress, Oriented x3 Laboratory Data at Discharge: WBC 5.80 K/uL (4.3-10.9) 10/15/21 05:20 Hgb 13.0 g/dL (12.0-15.0) 10/15/21 05:20 Hct 40.2 % (36.0-45.0) 10/15/21 05:20 Plt Count 108 K/uL (152-406) L 10/15/21 05:20 PT 13.8 SECONDS (9.5-12.5) H 10/14/21 12:57 INR 1.20 10/14/21 12:57 Sodium 144 mmol/L (136-145) 10/15/21 05:20 Potassium 4.1 mmol/L (3.5-5.1) 10/15/21 05:20 BUN 15 mg/dL (7-18) 10/15/21 05:20 Creatinine 0.88 mg/dL (0.55-1.3) 10/15/21 05:20 Glucose 103 mg/dL (74-106) 10/15/21 05:20 Phosphorus 3.4 mg/dL (2.5-4.9) 10/15/21 05:20 Magnesium 2.0 mg/dL (1.8-2.4) 10/15/21 05:20 Total Bilirubin 0.7 mg/dL (0.2-1.0) 10/15/21 05:20 AST 20 U/L (15-37) 10/15/21 05:20 ALT 37 U/L (12-78) 10/15/21 05:20 Alkaline Phosphatase 41 U/L (45-117) L 10/15/21 05:20 Troponin I < 0.02 ng/mL (0.0-0.045) 10/15/21 05:20 Home Medications: Apixaban [Eliquis *] 2.5 mg PO DAILY 10/10/19 Aspirin Chewable [Aspirin Chewable*] 81 mg PO DAILY 10/10/19 Budesonide/Formoterol Fumarate [Symbicort 160-4.5 Mcg Inhaler] 1 puff IH BIDP PRN 10/10/19 Fluticasone [Flovent Hfa 110*] 2 puff IH BID PRN 10/10/19 Gabapentin 600 mg PO TID 10/10/19 Hydrocodone 10/APAP 325 [Harper 10/325*] 1 tab PO TIDP PRN 10/10/19 Montelukast Sodium [Singulair] 10 mg PO DAILY 10/10/19 Omeprazole [Prilosec] 40 mg PO DAILY 10/10/19 predniSONE [Prednisone*] 10 mg PO DAILY 10/10/19 Furosemide [Lasix*] 20 mg PO DAILY 10/14/21 Losartan Potassium 25 mg PO DAILY 10/14/21 Amiodarone HCl [Cordarone*] 200 mg PO BID #40 tab 10/15/21 carvediloL [Carvedilol] 12.5 mg PO BID #60 tablet 10/15/21 New Medications: carvediloL [Carvedilol] 12.5 mg PO BID #60 tablet Amiodarone HCl [Cordarone*] 200 mg PO BID #40 tab Physician Discharge Instructions: OK TO DC IV AND DC HOME FOLLOW-UP WITH PRIMARY CARE PROVIDER IN 1-2 WEEKS FOLLOW-UP WITH CARDIOLOGY, Dr. Ortiz, IN 1-2 WEEKS RETURN TO THE ER IF symptoms worsen CALL or TEXT DR. PATEL AT [phone] IF ANY QUESTIONS REGARDING HOSPITAL STAY. PLEASE CALL THE FLOOR AT [phone] IF ANY MEDICATION OR NURSING QUESTIONS. Diet: AHA Activity: Fall precautions Followup: NONE,NONE [Primary Care Provider] - Time spent managing pt's care (in minutes): 35
[2021-10-15] MEDS ORDERED: carvediloL 25 MG TAB PO SCH (18:00)
[2021-10-15] MEDS ORDERED: HOME MED 1 EA UNK (Gabapentin [Gabapentin] 600 MG Tablet) PO SCH (21:00)
[2021-10-15] MEDS ORDERED: AMIODARONE HCL 200 MG TAB PO SCH (21:00)
[2021-10-15] MEDS ORDERED: GABAPENTIN 300 MG CAP PO SCH (21:00)
[2021-10-16] MEDS ORDERED: PANTOPRAZOLE 40MG TABLET PO SCH (06:30)
[2021-10-16] MEDS ORDERED: MONTELUKAST 10 MG TAB PO SCH (09:00)
[2021-10-16] MEDS ORDERED: HOME MED 1 EA UNK (Omeprazole [Prilosec] 40 MG Capsule.Dr) PO SCH (09:00)
[2021-10-16] MEDS ORDERED: predniSONE 5 MG TAB PO SCH (09:00)
[2021-10-16] MEDS ORDERED: LOSARTAN POTASSIUM 50 MG TABLET PO SCH (09:00)
[2021-10-16] MEDS ORDERED: ASPIRIN 81 MG CHEWABLE TABLET PO SCH (09:00)
[2021-10-16] MEDS ORDERED: FUROSEMIDE 20 MG TABLET PO SCH (09:00)
[2021-10-16] MEDS ORDERED: APIXABAN 2.5 MG TABLET PO SCH (09:00)
[2021-10-16] MEDS ORDERED: HOME MED 1 EA UNK (Losartan Potassium [Losartan Potassium] 25 MG Tablet) PO SCH (09:00)
--- NOTE | 2021-10-17 12:10 | CON ---
Date of Consultation: 10/15/2021 Reason For Consultation: Atrial fibrillation. History Of Present Illness: Ms. Michael is a 55-year-old black woman. She sees Dr. Ortiz. Kamran obrien had a pacemaker placed. She has a history of asthma, COPD, CVA, diabetes, venous insufficiency, neuropathy, sciatica, sleep apnea as well as atrial fibrillation, and recent pacemaker. Apparently, she has been having those symptoms since she has had the pacemaker and has seen Dr. Ortiz since the n and has had her pacemaker checked and seemed to be functioning appropriately. Her main complaint i s generalized weakness and malaise. No chest pain. No syncope. No nausea. No vomiting. No diapho resis. Allergies: NONE. Review of Systems: Negative. Social History: Negative. Family History: Negative. Medications: Include amiodarone, Eliquis, aspirin, Lasix, Flovent inhaler, Symbicort, inhalers, hudson pentin, losartan, Singulair, Prilosec, carvedilol, and prednisone. Physical Examination: Vital Signs: Stable, afebrile. Initial heart rate when I saw her was 136 and then went down to 81, in atrial fibrillation, paced rhythm. Her weight was 319. HEENT: Negative. Neck: Supple with no bruit. Chest: Clear. Cardiac: Revealed a paced rhythm. No murmurs, gallops, or rubs. Abdomen: Obese, but benign. Extremities: Revealed no clubbing, cyanosis, or edema. Laboratory Data: Her creatinine is 1.32. BNP was 759. Troponin was negative. Impression And Plan: 1.Chronic atrial fibrillation, status post pacemaker, on Eliquis and amiodarone. No change in thera py. 2.Chronic obstructive pulmonary disease. 3.Morbid obesity. 4.Chronic diastolic congestive heart failure. 5.Hypertension. 6.Gastroesophageal reflux disease. I do not think this symptoms are cardiac related or c ardiovascular related and may be secondary to orthostatic hypotension secondary to polypharmacy. It may be reasonable to hold the losartan and hold her Lasix temporarily until she sees Dr. Ortiz in t he near future. No further workup recommended at this point. She can go home. EARNEST/ALISE Voice ID: [id number] Report ID: [id number]
--- NOTE | 2021-10-19 08:19 | EKG ---
Test Date: 2021-10-14 Test Time: 12:17:16 [employer] Superintendent: EILEEN MEASUREMENT RESULTS: Intervals: Rate: 126 SC: QRSD: 68 QT: 300 QTc: 434 [place]: P: SC: QRS: 3 T: 259 INTERPRETIVE STATEMENTS: Atrial fibrillation with rapid ventricular response Nonspecific T wave abnormality Abnormal ECG Compared to ECG 02/04/2021 14:01:40 Sinus rhythm no longer present Possible ischemia no longer present T-wave abnormality still present Electronically Signed On 10-19-21 08:05:11 SOFTWARE DEVELOPMENT TEST ENGINEER by Samuel Christianson
== END 2021-10-15 16:33 | disposition home or self-care (01) ==
LOC: ER 11:46 → ERHOLD 18:11 → INTOOBSV 18:11 → 2ND 20:56
PROVIDERS: ADMIT Hospitalist; ATTEND Hospitalist
DX: I48.20 Chronic atrial fibrillation, unspecified (principal); J44.9 Chronic obstructive pulmonary disease, unspecified; E11.9 Type 2 diabetes mellitus without complications; G47.33 Obstructive sleep apnea (adult) (pediatric); I11.0 Hypertensive heart disease with heart failure; I50.32 Chronic diastolic (congestive) heart failure; R53.1 Weakness; I95.1 Orthostatic hypotension; E66.01 Morbid (severe) obesity due to excess calories; Z68.43 Body mass index [BMI] 50.0-59.9, adult; F17.210 Nicotine dependence, cigarettes, uncomplicated; Z79.01 Long term (current) use of anticoagulants; Z86.73 Personal history of transient ischemic attack (TIA), and cerebral infarction without residual deficits; Z95.0 Presence of cardiac pacemaker; Z96.651 Presence of right artificial knee joint; Z20.822 Contact with and (suspected) exposure to COVID-19
CPT/HCPCS: 93005; 85025 ×2; 80048; 36415; 83735 ×2; 84100; 85610; 82947 ×2; 80076; 84484 ×2; 80053; 83880 ×2; 71045; 96375; 96374; 99285; U0003; J1160 ×3; J7030; G0378 ×3

== ENCOUNTER 2021-11-22 12:35 | Emergency (ER) | payer OTHER ==
--- OUTSIDE RECORDS SUMMARY | 2021-11-22 12:43 | XMS REPORT | Continuity of Care Document ---
:1965 Author Organization [facility] t Address [address] [place] [address] Care Team Providers Name Role Phone Angeles GARDNER Attending Clinician Unavailable Richardson Attending Clinician Unavailable 2, Lab Attending Clinician Unavailable Angeles Gardner MD Attending Clinician Doctor Unassigned, Name Attending Clinician Unavailable Violet DONALDSON Attending Clinician Unavailable Brittany PETERSON Attending Clinician Unavailable Liliane Glez MD Attending Clinician LILIANE GLEZ Attending Clinician Unavailable LILIANE GLEZ Attending Clinician Unavailable Angeles Adrian MD Attending Clinician Richardson Admitting Clinician Unavailable Payers Payer Name Policy Type Policy Number Effective Date Expiration Date S [facility] [id number] 2015 00:00:00 PLUS Problems Condition Condition Condition Status Onset Resolution Last Treating Co mments Source Name Details Category Date Date Treatment Clinician Date 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 05-01 it y of t status t status 00:00: [place] 00 [facility] Knee pain, Knee pain, Disease Active U nivers right right 4-20 ity of 00:00: [place] 00 [facility] Ileus, Ileus, Disease Active Univers postoperat postoperat 06-03 it y of beckie beckie 00:00: [place] 00 [facility] Abdominal Abdominal Disease Active Uni vers distension distension 05-31 it y of 00:00: [place] [facility] Flank pain Flank pain Disease Active U nivers 05-31 ity of 00:00: [place] 00 [facility] Morbid Morbid Disease Active Univers obesity obesity 604 ity of 00:00: [place] 00 [facility] Obstructiv Obstructiv Disease Active Overview : Univers e sleep e sleep 604 ICD10 ity of apnea apnea 00:00: Diagnosis [place] [facility] [employer] 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 Preoperati Preoperati Disease Active U nivers ve ve 4-05 [place] clearance clearance [place] [facility] Asthma Asthma Disease Active Overview: Univer s 2-26 ICD10 ity of 00:00: Diagnosis [place] 00 Term [facility] [employer] 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 Essential Essential Disease Active Overview: Univers hypertensi hypertensi 2-26 ICD10 it y of on on 00:00: Diagnosis [place] 00 Term [facility] [employer] 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 Type 2 Type 2 Disease Active Overview: Univer s diabetes diabetes 2-26 ICD10 ity of mellitus mellitus 00:00: Diagnosis Mitesh as without without 00 Term Medical complicati complicati [employer] 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 ALLERGIE Class ity of S [facility] Social History Social Habit Start Date Stop Date Quantity Comments Source History of tobacco Cigarette Smoker University of use [facility] Exposure to Not sure University SARS-CoV-2 (event) [facility] Cigarettes smoked 2021-03-11 2021-03-11 Univers ity of current (pack per 00:00:00 00:00:00 [facility] [place] [facility] ) - Reported Branch Cigarette 2021-03-11 2021-03-11 University of pack-years 00:00:00 00:00:[address] [facility] Alcohol intake 2021-03-11 2021-03-11 Current University of 00:00:00 00:00:00 non-drinker of [facility] alcohol [place] (finding) Tobacco use and 2021-03-11 2021-03-11 Never used Universit y of exposure 00:00:00 00:00:[address] [facility] Tobacco Comment 2021-03-11 2021-03-11 1 pack in 2 days Uni versity of 00:00:00 00:00:[address] [facility] Sex Ass[birth year] At [birth year] Universit y of 00:00:00 00:00:[address] [facility] Smoking Status Start Date Stop Date Source Unknown if ever smoked [facility] Current every day smoker 2021-03-11 00:00:[address] [facility] Medications Ordered Filled Start Stop Current Ordering [...] mouth ity of mg tablet 19:52: daily. [place] [address] Medical Branch propranolol 0 Yes 40mg Take 40 mg Univers (INDERAL) 4-16 by mouth ity of 40 mg 19:52: daily. [place] tablet 21 Medical Branch aspirin 81 0 Yes 81mg Take 81 mg U nivers mg chewable 4-16 by mouth ity of tablet 19:52: daily. [place] 21 [facility] Branch amitriptyli Yes 10mg Take 10 [...] 21 Medical 100-25 Branch mcg/dose DsDv albuterol-i 0 Yes Inhale 4 Un michael pratropium 4-16 [...] mouth ity of mg tablet 19:52: daily. [place] [address] Medical Branch propranolol 0 Yes 40mg Take 40 mg Univers (INDERAL) 4-16 by mouth ity of 40 mg 19:52: daily. [place] tablet 21 Medical Branch aspirin 81 0 Yes 81mg Take 81 mg U nivers mg chewable 4-16 by mouth ity of tablet 19:52: daily. [place] [address] Medical Branch amitriptyli Yes 10mg Take 10 [...] mouth ity of mg tablet 19:52: daily. [place] 21 [facility] Branch propranolol Yes 40mg Take 40 mg Univers (INDERAL) 4-16 by mouth ity of 40 mg 19:52: daily. [place] tablet 21 Medical Branch aspirin 81 Yes 81mg Take 81 mg U nivers mg chewable 4-16 by mouth ity of tablet 19:52: daily. [place] 21 [facility] Branch amitriptyli Yes 10mg Take 10 [...] capsule 00:00: [place] 00 [facility] Branch amoxicillin Yes Univer s 500 mg 4-14 ity of capsule 00:00: [place] 00 [facility] amoxicillin Yes Univer s 500 mg 4-14 ity of capsule 00:00: [place] 00 [facility] HYDROcodone Yes 1{tbl} Take 1 Un michael -acetaminop [...] (two) times Medical daily. Branch Tizanidine Tizanidine 2020- No Na Shabazz [address] [facility] [address] [facility] 07-06 [facility] gadobenate 2019-0 2020- No .2mL/kg 0.2 mL/kg, Univers dimeglumine 06-01 Intravenou i ty of (MULTIHANCE 18:30: 18:30 s, ONCE, 1 [place] -20 mL) 00 :00 dose, Tue Medical injection 06/01/20 at [facility] h 0.2 mL/kg 1330, Routine diazePAM 5 2019-0 Yes [id number] 5mg Take 1 U nivers mg tablet 7-03 tablet by ity o f 00:00: mouth 2 (two) Medical times Branch daily. May take both befor the MRI diazePAM 5 2019-0 Yes [id number] 5mg Take 1 U nivers mg tablet 7-03 tablet by ity o f 00:00: mouth 2 (two) Medical times Branch daily. May take both befor the MRI diazePAM 5 2020-0 Yes [id number] 5mg Take 1 U nivers mg tablet 7-03 tablet by ity o f 00:00: mouth 2 (two) Medical times Branch daily. May take both befor the MRI diazePAM 5 2020-0 Yes [id number] 5mg Take 1 U nivers mg tablet 7-03 tablet by ity o f 00:00: mouth 2 (two) Medical times Branch daily. May take both befor the MRI diazePAM 5 2020-0 Yes [id number] 5mg Take 1 U nivers mg tablet 7-03 tablet by ity o f 00:00: mouth 2 (two) Medical times Branch daily. May take both befor the MRI diazePAM 5 2020-0 Yes [id number] 5mg Take 1 U nivers mg tablet 7-03 tablet by ity o f 00:00: mouth 2 (two) Medical times Branch daily. May take both befor the MRI diazePAM 5 2020-0 Yes [id number] 5mg Take 1 U nivers mg tablet 7-03 tablet by ity o f 00:00: mouth (two) Medical times Branch daily. May take both befor the MRI diazePAM 5 2020-0 Yes [id number] 5mg Take 1 U nivers mg tablet 7-03 tablet by ity o f 00:00: mouth (two) Medical times Branch daily. May take both befor the MRI cyclobenzap 2019-0 Yes [id number] 10mg Take 1 Univers rine 10 mg 8-15 tablet by ity of tablet 00:00: mouth 3 (three) Medical times Branch daily. cyclobenzap 2019-0 Yes [id number] 10mg Take 1 Univers rine 10 mg 8-15 tablet by ity of tablet 00:00: mouth 3 (three) Medical times Branch daily. cyclobenzap 2019-0 Yes [id number] 10mg Take 1 Univers rine 10 mg 8-15 tablet by ity of tablet 00:00: mouth 3 (three) Medical times Branch daily. cyclobenzap 2019-0 Yes [id number] 10mg Take 1 Univers rine 10 mg 8-15 tablet by ity of tablet 00:00: mouth 3 00 (three) Medical times Branch daily. cyclobenzap 2019-0 Yes [id number] 10mg Take 1 Univers rine 10 mg 8-15 tablet by ity of tablet 00:00: mouth 3 (three) Medical times Branch daily. cyclobenzap 2019-0 Yes [id number] 10mg Take 1 Univers rine 10 mg 8-15 tablet by ity of tablet 00:00: mouth 3 (three) Medical times Branch daily. cyclobenzap 2019-0 Yes [id number] 10mg Take 1 Univers rine 10 mg 8-15 tablet by ity of tablet 00:00: mouth (three) Medical times Branch daily. cyclobenzap 2019-0 Yes [id number] 10mg Take 1 Univers rine 10 mg 8-15 tablet by ity of tablet 00:00: mouth (three) Medical times Branch daily. cyclobenzap 2019-0 Yes [id number] 10mg Take 1 Univers rine 10 mg 8-15 tablet by ity of tablet 00:00: mouth (three) Medical times Branch daily. cyclobenzap 2019-0 Yes [id number] 10mg Take 1 Univers rine 10 mg 8-15 tablet by ity of tablet 00:00: mouth [place] (three) Medical times Branch daily. cyclobenzap 2018-0 Yes [id number] 10mg Take 1 Univers rine 10 mg 8-15 tablet by ity of tablet 00:00: mouth [place] (three) Medical times Branch daily. cyclobenzap 2019-0 Yes [id number] 10mg Take 1 Univers rine 10 mg 8-15 tablet by ity of tablet 00:00: mouth [place] (three) Medical times Branch daily. cyclobenzap 2019-0 Yes [id number] 10mg Take 1 Univers rine 10 mg 8-15 tablet by ity of tablet 00:00: mouth (three) Medical times Branch daily. cyclobenzap 2019-0 Yes [id number] 10mg Take 1 Univers rine 10 mg 8-15 tablet by ity of tablet 00:00: mouth [place] (three) Medical times Branch daily. cyclobenzap 2019-0 Yes [id number] 10mg Take 1 Univers rine 10 mg 8-15 tablet by ity of tablet 00:00: mouth 3 [place] (three) Medical times Branch daily. methylPREDN 2019-0 Yes [id number] Take by Univers ISolone 7-10 mouth ity of (MEDROL, 00:00: SEE-INSTRU Mitesh as TIMOTHY,) 4 mg 00 CTIONS. Medica l tablets follow Branch package directions methylPREDN 2019-0 Yes [id number] Take by Univers ISolone 7-10 mouth ity of (MEDROL, 00:00: SEE-INSTRU Mitesh as TIMOTHY,) 4 mg 00 CTIONS. Medica l tablets follow Branch package directions methylPREDN 2019-0 Yes [id number] Take by Univers ISolone 7-10 mouth ity of (MEDROL, 00:00: SEE-INSTRU Mitesh as TIMOTHY,) 4 mg 00 CTIONS. Medica l tablets follow Branch package directions methylPREDN 2019-0 Yes [id number] Take by Univers ISolone 7-10 mouth ity of (MEDROL, 00:00: SEE-INSTRU Mitesh as TIMOTHY,) 4 mg 00 CTIONS. Medica l tablets follow Branch package directions methylPREDN 2019-0 Yes [id number] Take by Univers ISolone 7-10 mouth ity of (MEDROL, 00:00: SEE-INSTRU Mitesh as TIMOTHY,) 4 mg 00 CTIONS. Medica l tablets follow Branch package directions methylPREDN 2019-0 Yes [id number] Take by Univers ISolone 7-10 mouth ity of (MEDROL, 00:00: SEE-INSTRU Mitesh as TIMOTHY,) 4 mg 00 CTIONS. Medica l tablets follow Branch package directions methylPREDN 2019-0 Yes [id number] Take by Univers ISolone 7-10 mouth ity of (MEDROL, 00:00: SEE-INSTRU Mitesh as TIMOTHY,) 4 mg 00 CTIONS. Medica l tablets follow Branch package directions methylPREDN 2019-0 Yes [id number] Take by Univers ISolone 7-10 mouth ity of (MEDROL, 00:00: SEE-INSTRU Mitesh as TIMOTHY,) 4 mg 00 CTIONS. Medica l tablets follow Branch package directions methylPREDN 2019-0 Yes [id number] Take by Univers ISolone 7-10 mouth ity of (MEDROL, 00:00: SEE-INSTRU Mitesh as TIMOTHY,) 4 mg 00 CTIONS. Medica l tablets follow Branch package directions methylPREDN 2019-0 Yes [id number] Take by Univers ISolone 7-10 mouth ity of (MEDROL, 00:00: SEE-INSTRU Mitesh as TIMOTHY,) 4 mg 00 CTIONS. Medica l tablets follow Branch package directions methylPREDN 2019-0 Yes [id number] Take by Univers ISolone 7-10 mouth ity of (MEDROL, 00:00: SEE-INSTRU Mitesh as TIMOTHY,) 4 mg 00 CTIONS. Medica l tablets follow Branch package directions methylPREDN 2018-0 Yes [id number] Take by Univers ISolone 7-10 mouth ity of (MEDROL, 00:00: SEE-INSTRU Mitesh as TIMOTHY,) 4 mg 00 CTIONS. Medica l tablets follow Branch package directions methylPREDN 2018-0 Yes [id number] Take by Univers ISolone 7-10 mouth ity of (MEDROL, 00:00: SEE-INSTRU Mitesh as TIMOTHY,) 4 mg 00 CTIONS. Medica l tablets follow Branch package directions methylPREDN 2018-0 Yes [id number] Take by Univers ISolone 7-10 mouth ity of (MEDROL, 00:00: SEE-INSTRU Mitesh as TIMOTHY,) 4 mg 00 CTIONS. Medica l tablets follow Branch package directions methylPREDN 2018-0 Yes [id number] Take by Univers ISolone 7-10 mouth ity of (MEDROL, 00:00: SEE-INSTRU Mitesh as TIMOTHY,) 4 mg 00 CTIONS. Medica l tablets follow Branch package directions cyclobenzap 2018- Yes [id number] 10mg Take 1 Univers rine 10 mg 7-10 tablet by ity of tablet 00:00: mouth 3 [place] 00 (three) Medical times Branch daily. methylPREDN 2018-0 Yes [id number] Take by Univers ISolone 7-10 mouth ity of (MEDROL, 00:00: SEE-INSTRU Mitesh as TIMOTHY,) 4 mg 00 CTIONS. Medica l tablets follow Branch package directions cyclobenzap 2019- No [id number] 10mg Take 1 Univers rine 10 mg 7-10 08-15 tablet by ity of tablet 00:00: 00:00 mouth 3 [place] 00 :00 (three) Medical times Branch daily. APIXABAN 2016-11 Yes Take by [place] (ELIQUIS 1-03 mouth. ity of ORAL) 16:13: [place] 59 Medical Branch fluticasone 2016-11 Yes Inhale. Uni vers -vilanterol 1-03 ity of (BREO 16:13: [place] ELLIPTA) 59 Medical 100-25 Branch mcg/dose DsDv APIXABAN 2016-11 Yes Take by Unive rs (ELIQUIS 1-03 mouth. ity of ORAL) 16:13: [place] 59 [facility] Branch fluticasone 2017- Yes Inhale. Uni vers -vilanterol 1-03 ity of (BREO 16:13: [place] ELLIPTA) 59 Medical 100-25 Branch mcg/dose DsDv APIXABAN 2017- Yes Take by Unive rs (ELIQUIS 1-03 mouth. ity of ORAL) 16:13: [place] [address] Medical Branch fluticasone 2017- Yes Inhale. Uni vers -vilanterol 1-03 ity of (BREO 16:13: [place] ELLIPTA) 59 Medical 100-25 Branch mcg/dose DsDv APIXABAN 2017- Yes Take by Unive rs (ELIQUIS 1-03 mouth. ity of ORAL) 16:13: [place] [address] Medical Branch fluticasone 2017- Yes Inhale. Uni vers -vilanterol 1-03 ity of (BREO 16:13: [place] ELLIPTA) 59 Medical 100-25 Branch mcg/dose DsDv APIXABAN 2017- Yes Take by Unive rs (ELIQUIS 1-03 mouth. ity of ORAL) 16:13: [place] [address] Medical Branch fluticasone 2017- Yes Inhale. Uni vers -vilanterol 1-03 ity of (BREO 16:13: [place] ELLIPTA) 59 Medical 100-25 Branch mcg/dose DsDv APIXABAN 2017- Yes Take by Unive rs (ELIQUIS 1-03 mouth. ity of ORAL) 16:13: [place] [address] Medical Branch fluticasone 2017- Yes Inhale. Uni vers -vilanterol 1-03 ity of (BREO 16:13: [place] ELLIPTA) 59 Medical 100-25 Branch mcg/dose DsDv APIXABAN 2017- Yes Take by Unive rs (ELIQUIS 1-03 mouth. ity of ORAL) 16:13: [place] [address] Medical Branch fluticasone 2017- Yes Inhale. Uni vers -vilanterol 1-03 ity of (BREO 16:13: [place] ELLIPTA) 59 Medical 100-25 Branch mcg/dose DsDv APIXABAN 2017- Yes Take by Unive rs (ELIQUIS 1-03 mouth. ity of ORAL) 16:13: [place] [address] Medical Branch fluticasone 2017- Yes Inhale. Uni vers -vilanterol 1-03 ity of (BREO 16:13: [place] ELLIPTA) 59 Medical 100-25 Branch mcg/dose DsDv APIXABAN 2017- Yes Take by Unive rs (ELIQUIS 1-03 mouth. ity of ORAL) 16:13: [place] [address] Medical Branch fluticasone 2017- Yes Inhale. Uni vers -vilanterol 1-03 ity of (BREO 16:13: [place] ELLIPTA) 59 Medical 100-25 Branch mcg/dose DsDv APIXABAN 2017 Yes Take by Unive rs (ELIQUIS 1-03 mouth. ity of ORAL) 16:13: [place] [address] Medical Branch fluticasone 2017- Yes Inhale. Uni vers -vilanterol 1-03 ity of (BREO 16:13: [place] ELLIPTA) 59 Medical 100-25 Branch mcg/dose DsDv APIXABAN 2017 Yes Take by Unive rs (ELIQUIS 1-03 mouth. ity of ORAL) 16:13: [place] [address] Medical Branch fluticasone 2017- Yes Inhale. Uni vers -vilanterol 1-03 ity of (BREO 16:13: [place] ELLIPTA) 59 Medical 100-25 Branch mcg/dose DsDv APIXABAN 2017- Yes Take by Unive rs (ELIQUIS 1-03 mouth. ity of ORAL) 16:13: [place] [address] Medical Branch fluticasone 2017 Yes Inhale. Uni vers -vilanterol 1-03 ity of (BREO 16:13: [place] ELLIPTA) 59 Medical 100-25 Branch mcg/dose DsDv APIXABAN 2017- Yes Take by Unive rs (ELIQUIS 1-03 mouth. ity of ORAL) 16:13: [place] [address] Medical Branch fluticasone 2017- Yes Inhale. Uni vers -vilanterol 1-03 ity of (BREO 16:13: [place] ELLIPTA) 59 Medical 100-25 Branch mcg/dose DsDv APIXABAN 2017- Yes Take by Unive rs (ELIQUIS 1-03 mouth. ity of ORAL) 16:13: [place] [address] Medical Branch fluticasone 2017- Yes Inhale. Uni vers -vilanterol 1-03 ity of (BREO 16:13: [place] ELLIPTA) 59 Medical 100-25 Branch mcg/dose DsDv levoFLOXaci 2017 Yes Univer s n 500 [...] tablet 00:00: [place] 00 Medical Branch levoFLOXaci 2017 Yes Univer [...] 00:00: [place] 00 Medical Branch lidocaine 5 2017-1 Yes Univer s % ointment 0-17 ity [...] mouth ity of mg tablet 13:38: daily. [place] [address] Medical Branch propranolol 2017-0 Yes 40mg Take 40 mg Univers (INDERAL) 8-10 by mouth ity of 40 mg 13:38: daily. [place] tablet Medical Branch aspirin 81 [id number] Yes 81mg Take 81 mg U nivers mg chewable 8-10 by mouth ity of tablet 13:38: daily. [place] [address] Medical Branch amitriptyli 2017 Yes 10mg Take 10 mg Univers ne (ELAVIL) 8-10 by mouth ity of 10 mg 13:38: at [place] [facility] 04 bedtime. Medical Branch simvastatin 2017 Yes 20mg Take 20 mg Univers (ZOCOR) 20 8-10 by mouth ity o f mg tablet 13:38: at [place] [address] bedtime. Medical Branch albuterol-i Yes Inhale 4 Un michael pratropium 8-10 (four) ity of (COMBIVENT 13:38: times [place] INHALER) 04 daily. Medical 18-103 Branch mcg/actuati on inhaler FLUTICASONE Yes 2{puff} Inhale 2 Univers PROPIONATE 8-10 Puffs as ity o f (FLOVENT 13:38: needed. [place] ROTADISK 04 Medical INHALE) Branch Gabapentin, 20170 Yes 600mg 600 mg 3 U nivers Bulk, 100 % 8-10 (three) ity o f Powd 13:38: times [place] 04 daily. Medical Branch amLODIPine 20170 Yes 5mg Take 5 mg Un michael (NORVASC) 5 8-10 by mouth ity of mg tablet 13:38: daily. [place] [address] Medical Branch propranolol 2017-0 Yes 40mg Take 40 mg Univers (INDERAL) 8-10 by mouth ity of 40 mg 13:38: daily. [place] [address] Medical Branch aspirin 81 20170 Yes 81mg Take 81 mg U nivers mg chewable 8-10 by mouth ity of tablet 13:38: daily. [place] [address] Medical Branch amitriptyli 2017 Yes 10mg Take [...] as ity o f (FLOVENT 13:38: needed. [place] ROTADISK Medical INHALE) Branch Gabapentin, 20170 Yes 600mg 600 mg 3 U nivers Bulk, 100 % 8-10 (three) ity o f Powd 13:38: times [place] 04 daily. Medical Branch amLODIPine 2017 Yes 5mg Take 5 mg Un michael (NORVASC) 5 8-10 by mouth ity of mg tablet 13:38: daily. [place] [address] Medical Branch propranolol 2017 Yes 40mg Take 40 mg Univers (INDERAL) 8-10 by mouth ity of 40 mg 13:38: daily. [place] [address] Medical Branch aspirin 81 2017-0 Yes 81mg Take 81 mg U nivers mg chewable 8-10 by mouth ity of tablet 13:38: daily. [place] [address] Medical Branch amitriptyli Yes 10mg Take 10 mg Univers ne (ELAVIL) 8-10 by mouth ity of 10 mg 13:38: at [place] tablet 04 bedtime. Medical Branch simvastatin [id number] Yes 20mg Take 20 mg Univers (ZOCOR) [...] as ity o f (FLOVENT 13:38: needed. [place] ROTADISK 04 Medical INHALE) Branch Gabapentin, 2017 Yes 600mg 600 mg 3 U nivers Bulk, 100 % 8-10 (three) ity o f Powd 13:38: times [place] 04 daily. Medical Branch amLODIPine 2017 Yes 5mg Take 5 mg Un michael (NORVASC) 5 8-10 by mouth ity of mg tablet 13:38: daily. [place] [address] Medical Branch propranolol 2017 Yes 40mg Take 40 mg Univers (INDERAL) 8-10 by mouth ity of 40 mg 13:38: daily. [place] [address] Medical Branch aspirin 81 2017 Yes 81mg Take 81 mg U nivers mg chewable 8-10 by mouth ity of tablet 13:38: daily. [place] [address] Medical Branch amitriptyli Yes 10mg Take 10 [...] as ity o f (FLOVENT 13:38: needed. [place] ROTADISK 04 Medical INHALE) Branch Gabapentin, 0 Yes 600mg 600 mg 3 U nivers Bulk, 100 % 8-10 (three) ity o f Powd 13:38: times [place] 04 daily. Medical Branch amLODIPine Yes 5mg Take 5 mg Un michael (NORVASC) 5 8-10 by mouth ity of mg tablet 13:38: daily. [place] [address] Medical Branch propranolol 2017 Yes 40mg Take 40 mg Univers (INDERAL) 8-10 by mouth ity of 40 mg 13:38: daily. [place] tablet Medical Branch aspirin 81 Yes 81mg Take 81 mg U nivers mg chewable 8-10 by mouth ity of tablet 13:38: daily. [place] [address] Medical Branch amitriptyli Yes 10mg Take 10 [...] as ity o f (FLOVENT 13:38: needed. [place] ROTADISK Medical INHALE) Branch Gabapentin, 2017 Yes 600mg 600 mg 3 U nivers Bulk, 100 % 8-10 (three) ity o f Powd 13:38: times [place] 04 daily. Medical Branch amLODIPine 2017 Yes 5mg Take 5 mg Un michael (NORVASC) 5 8-10 by mouth ity of mg tablet 13:38: daily. [place] [address] Medical Branch propranolol Yes 40mg Take 40 mg Univers (INDERAL) 8-10 by mouth ity of 40 mg 13:38: daily. [place] [address] Medical Branch aspirin 81 2017 Yes 81mg Take 81 mg U nivers mg chewable 8-10 by mouth ity of tablet 13:38: daily. [place] [address] Medical Branch amitriptyli Yes 10mg Take 10 [...] 13:38: times [place] INHALER) 04 daily. Medical 18- Branch mcg/actuati on inhaler FLUTICASONE Yes 2{puff} Inhale 2 Univers PROPIONATE 8-10 Puffs as ity o f (FLOVENT 13:38: needed. [place] ROTADISK 04 Medical INHALE) Branch Gabapentin, Yes 600mg 600 mg 3 U nivers Bulk, 100 % 8-10 (three) ity o f Powd 13:38: times [place] 04 daily. Medical Branch amLODIPine Yes 5mg Take 5 mg Un michael (NORVASC) 5 8-10 by mouth ity of mg tablet 13:38: daily. [place] [address] Medical Branch propranolol Yes 40mg Take 40 mg Univers (INDERAL) 8-10 by mouth ity of 40 mg 13:38: daily. [place] tablet 04 Medical Branch aspirin 81 2017 Yes 81mg Take 81 mg U nivers mg chewable 8-10 by mouth ity of tablet 13:38: daily. [place] [address] Medical Branch amitriptyli Yes 10mg Take 10 mg Univers ne (ELAVIL) 8-10 by mouth ity of 10 mg 13:38: at [place] tablet 04 bedtime. Medical Branch simvastatin Yes 20mg Take 20 mg Univers (ZOCOR) 20 8-10 by mouth ity o f mg tablet 13:38: at [place] 04 bedtime. Medical Branch CARVEDILOL 2016 Yes 25mg Take 25 mg U nivers [...] 13:38: times [place] INHALER) 04 daily. Medical 18 Branch mcg/actuati on inhaler FLUTICASONE 2017 Yes 2{puff} Inhale 2 Univers PROPIONATE 8-10 Puffs as ity o f (FLOVENT 13:38: needed. [place] ROTADISK 04 Medical INHALE) Branch Gabapentin, 2017 Yes 600mg 600 mg 3 U nivers Bulk, 100 % 8-10 (three) ity o f Powd 13:38: times [place] 04 daily. Medical Branch amLODIPine Yes 5mg Take 5 mg Un michael (NORVASC) 5 8-10 by mouth ity of mg tablet 13:38: daily. [place] [address] Medical Branch propranolol Yes 40mg Take 40 [...] mouth ity of mg tablet 13:38: daily. [place] [address] Medical Branch propranolol Yes 40mg Take 40 mg Univers (INDERAL) 8-10 by mouth ity of 40 mg 13:38: daily. [place] [address] Medical Branch aspirin 81 Yes 81mg Take 81 mg U nivers mg chewable 8-10 by mouth ity of tablet 13:38: daily. [place] [address] Medical Branch amitriptyli Yes 10mg Take 10 [...] mouth ity of mg tablet 13:38: daily. [place] [address] Medical Branch propranolol 2017 Yes 40mg Take 40 mg Univers (INDERAL) 8-10 by mouth ity of 40 mg 13:38: daily. [place] tablet 04 Medical Branch aspirin 81 2017 [...] 13:38: times [place] INHALER) 04 daily. Medical 18- Branch mcg/actuati on inhaler CARVEDILOL 2017 Yes 25mg Take 25 mg [...] Medical 18-103 Branch mcg/actuati on inhaler Gabapentin, 2017-0 Yes 600mg 600 mg 3 U nivers Bulk, 100 % 8-10 (three) ity o f Powd 13:38: times [place] 04 daily. Medical Branch FLUTICASONE 2017 Yes 2{puff} Inhale 2 Univers [...] mouth ity of mg tablet 13:38: daily. [place] [address] Medical Branch propranolol Yes 40mg Take 40 mg Univers (INDERAL) 8-10 by mouth ity of 40 mg 13:38: daily. [place] tablet Medical Branch aspirin 81 Yes 81mg Take 81 mg U nivers mg chewable 8-10 by mouth ity of tablet 13:38: daily. [place] [address] Medical Branch amitriptyli Yes 10mg Take 10 [...] mouth ity of mg tablet 13:38: daily. [place] [address] Medical Branch CARVEDILOL Yes 25mg Take 25 [...] mouth ity of 40 mg 13:38: daily. [place] tablet Medical Branch aspirin 81 Yes 81mg Take 81 mg U nivers mg chewable 8-10 by mouth ity of tablet 13:38: daily. [place] [address] Medical Branch albuterol-i Yes Inhale 4 Un [...] mouth ity of mg tablet 13:38: daily. [place] [address] Medical Branch propranolol 2017 Yes 40mg Take 40 mg Univers (INDERAL) 8-10 by mouth ity of 40 mg 13:38: daily. [place] tablet 04 Medical Branch aspirin 81 2017 Yes 81mg Take 81 mg U nivers mg chewable 8-10 by mouth ity of tablet 13:38: daily. [place] [address] Medical Branch amitriptyli Yes 10mg Take 10 [...] mouth ity of mg tablet 13:38: daily. [place] [address] Medical Branch propranolol 2017 Yes 40mg Take 40 mg Univers (INDERAL) 8-10 by mouth ity of 40 mg 13:38: daily. [place] [address] Medical Branch aspirin 81 2017 Yes 81mg Take 81 mg U nivers mg chewable 8-10 by mouth ity of tablet 13:38: daily. [place] [address] Medical Branch amitriptyli Yes 10mg Take 10 [...] amLODIPine Yes 5mg Take 5 mg Un micheal (NORVASC) 5 8-10 by mouth ity of [...] as ity o f (FLOVENT 13:38: needed. [place] ROTADISK 04 Medical INHALE) Branch Gabapentin, [address] Yes 600mg 600 mg 3 U nivers Bulk, 100 % 8-10 (three) ity o f Powd 13:38: times [place] 04 daily. Medical Branch amLODIPine 2017 Yes 5mg Take 5 mg Un michael (NORVASC) 5 8-10 by mouth ity of mg tablet 13:38: daily. [place] [address] Medical Branch ferrous 2017 Yes 325mg Take 325 [...] by mouth ity of tablet 13:38: daily. [place] [address] Medical Branch amitriptyli 2017 Yes 10mg Take [...] as ity o f (FLOVENT 13:38: needed. [place] ROTADISK 04 Medical INHALE) Branch Gabapentin, 2017 Yes 600mg 600 mg 3 U nivers Bulk, 100 % 8-10 (three) ity o f Powd 13:38: times [place] 04 daily. Medical Branch amLODIPine Yes 5mg Take 5 mg Un michael (NORVASC) 5 8-10 by mouth ity of mg tablet 13:38: daily. [place] [address] Medical Branch propranolol Yes 40mg Take 40 mg Univers (INDERAL) 8-10 by mouth ity of 40 mg 13:38: daily. [place] tablet 04 Medical Branch aspirin 81 Yes 81mg Take 81 mg U nivers mg chewable 8-10 by mouth ity of tablet 13:38: daily. [place] [address] Medical Branch amitriptyli Yes 10mg Take 10 [...] as ity o f (FLOVENT 13:38: needed. [place] ROTADISK 04 Medical INHALE) Branch Gabapentin, Yes 600mg 600 mg 3 U nivers Bulk, 100 % 8-10 (three) ity o f Powd 13:38: times [place] 04 daily. Medical Branch amLODIPine Yes 5mg Take 5 mg Un michael (NORVASC) 5 8-10 by mouth ity of mg tablet 13:38: daily. [place] [address] Medical Branch propranolol Yes 40mg Take 40 mg Univers (INDERAL) 8-10 by mouth ity of 40 mg 13:38: daily. [place] tablet 04 Medical Branch aspirin 81 Yes 81mg Take 81 mg U nivers mg chewable 8-10 by mouth ity of tablet 13:38: daily. [place] [address] Medical Branch amitriptyli Yes 10mg Take 10 mg Univers ne (ELAVIL) 8-10 by mouth ity of 10 mg 13:38: at [place] tablet 04 bedtime. Medical Branch simvastatin Yes 20mg Take 20 mg Univers (ZOCOR) 20 8-10 by mouth ity o f mg tablet 13:38: at [place] 04 bedtime. Medical Branch phenazopyri Yes 200mg Take [...] ity of 800 mg 00:00: [place] tablet Medical Branch clindamycin 2015-11 Yes TAKE 2 Univ ers (CLEOCIN) 0-24 CAPSULES ity of 150 mg 00:00: BY MOUTH [place] capsule 00 EVERY 8 Medical HOURS ( 3 Branch TIMES A DAY) TAKE WITH FOOD AND DRINK PLENTY OF WATER ibuprofen 2015-11 Yes Univers (MOTRIN) 0-24 ity of 800 mg 00:00: [place] tablet Medical Branch clindamycin 2015-11 Yes TAKE 2 [...] ity of 800 mg 00:00: [place] tablet Medical Branch clindamycin 2015-11 Yes TAKE 2 [...] 00:00: [place] tablet 00 Medical Branch tiZANidine Yes 4mg Take 4 mg Un michael (ZANAFLEX) 5-10 by mouth 2 ity of 4 mg tablet 00:00: (two) [place] 00 times Medical daily. Branch tiZANidine Yes 4mg Take 4 mg Un michael (ZANAFLEX) 5-10 by mouth 2 ity of 4 mg tablet 00:00: (two) [place] 00 times Medical daily. Branch tiZANidine 0 Yes 4mg Take 4 mg Un michael (ZANAFLEX) 5-10 by mouth 2 ity of 4 mg tablet 00:00: (two) [place] 00 times Medical daily. Branch tiZANidine 2015-0 Yes 4mg Take 4 mg Un michael (ZANAFLEX) 5-10 by mouth 2 ity of 4 mg tablet 00:00: (two) [place] 00 times Medical daily. Branch tiZANidine Yes 4mg Take 4 mg Un michael [...] [place] 00 times Medical daily. Branch tiZANidine Yes 4mg Take 4 mg Un michael [...] 4-13 Dose to ity of 00:00: area(s) [place] [address] every Medical evening. Branch losartan Yes 100mg Take 100 Univ ers (COZAAR) 4-13 mg by ity of 100 mg 00:00: mouth [place] tablet 00 daily. Medical Branch potassium Yes 10meq Take 10 Univ ers chloride 4-13 mEq by ity of (K-DUR) 10 00:00: mouth [place] mEq CR 00 daily. Medical tablet Branch hydrochloro Yes 25mg Take 1 Tab [...] 00 times Medical tablet daily. Branch docusate 0 Yes 240mg Take 1 Cap Un michael calcium 7-05 by mouth 2 ity of (SURFAK) 00:00: (two) [place] 240 mg 00 times Medical capsule daily. Branch hydrochloro 0 Yes 25mg Take 1 Tab Univers thiazide [...] ent Clinics No known No Univers medications [facility] No known No [facility] No known No Univers medications [facility] Immunizations Ordered Filled Immunization Date Status Comments [facility] e Immunization Name Name SARS-COV-2 COVID-19 2021-01-30 Completed Unive rsity of MODERNA VACCINE 00:00:00 [facility] SARS-COV-2 COVID-19 2021-01-30 Completed Unive rsity of MODERNA VACCINE 00:00:00 [facility] SARS-COV-2 COVID-19 2021-01-30 Completed Unive rsity of MODERNA VACCINE 00:00:00 [facility] SARS-COV-2 COVID-19 2021-01-30 Completed Unive rsity of MODERNA VACCINE 00:00:00 [facility] SARS-COV-2 COVID-19 2021-01-30 Completed Unive rsity of MODERNA VACCINE 00:00:00 [facility] SARS-COV-2 COVID-19 2021-01-02 Completed Unive rsity of MODERNA VACCINE 00:00:00 [facility] SARS-COV-2 COVID-19 2021-01-02 Completed Unive rsity of MODERNA VACCINE 00:00:00 [facility] SARS-COV-2 COVID-19 2021-01-02 Completed Unive rsity of MODERNA VACCINE 00:00:00 [place] Med ical Branch SARS-COV-2 COVID-19 2021-01-02 Completed Unive rsity of MODERNA VACCINE 00:00:00 [place] Med ical Branch SARS-COV-2 COVID-19 2021-01-02 Completed Unive rsity of MODERNA VACCINE 00:00:00 [place] Med ical Branch Afluria single dose Afluria single dose 2019-08-[address] [facility] - 00:00:00 [facility] Pneumococcal 2013-06-06 Completed University o f Polysaccharide, [...] blood 2021-03-11 19:58:00 153 mm[Hg] Univer sity [facility] Diastolic blood 2021-03-11 19:58:00 90 mm[Hg] Unive [facility] Heart rate 2021-03-11 19:46:00 69 /min [facility] Body temperature 2021-03-11 19:46:00 36.89 Daniela [facility] Respiratory rate 2021-03-11 19:46:00 18 /min [facility] Body height 2021-03-11 19:46:00 170.2 cm [facility] Body weight 2021-03-11 19:46:00 142.883 kg [facility] BMI 2021-03-11 19:46:00 49.34 kg/m2 [facility] Systolic blood 2021-03-11 19:58:00 153 mm[Hg] Univer sity [facility] Diastolic blood 2021-03-11 19:58:00 90 mm[Hg] [facility] 2021-03-11 19:46:00 69 /min [facility] [place] Body temperature 2021-03-11 19:46:00 36.89 Daniela [facility] Respiratory rate 2021-03-11 19:46:00 18 /min [facility] Body height 2021-03-11 19:46:00 170.2 cm [facility] Body weight 2021-03-11 19:46:00 142.883 kg [facility] BMI 2021-03-11 19:46:00 49.34 kg/m2 [facility] Procedures Procedure Date / Time Performing Clinician Source Performed ASSIGNMENT OF BENEFITS 2021-03-11 19:23:16 Doctor Unamercy, [facility] Name Medical Branch MR BRAIN W WO CONTRAST 2020-06-01 19:29:[address] [facility] [place] REFERRAL- 2020-01-13 06:01:00 Doctor Melva, [facility] REQUEST/RESPONSE [place] [facility] REFERRAL- 2019-07-21 05:01:00 Doctor Unamercy, [facility] REQUEST/RESPONSE [place] [facility] OP CLINIC NOTES/CONSULTS 2019-06-20 05:01:00 Doctor Melva, [facility] [place] [facility] AGREEMENTS AUTHORIZATIONS 2019-04-11 05:01:00 Doctor Melva, [facility] AND IRREVOCABLE [place] [facility] ASSIGNMENTS (FORM 2001) MEDICATION CORRESPONDENCE 2015-02-17 05:01:[address] [facility] [place] [facility] PATIENT AGREEMENTS AND 2014-08-19 05:01:00 Doctor Melva, [facility] CONTRACTS [place] [facility] MEDICATION CORRESPONDENCE 2014-07-28 05:01:00 Doctor Melva, [facility] [place] [facility] PATIENT QUESTIONNAIRE 2014-06-18 05:01:00 Doctor Melva [facility] [place] [facility] [place] MEDICATION CORRESPONDENCE 2013-05-09 05:01:00 Doctor Melva, [facility] [place] [facility] MEDICATION CORRESPONDENCE 2012-09-30 06:01:00 Doctor Melva, [facility] [place] [facility] MEDICATION CORRESPONDENCE 2012-08-13 05:01:00 Doctor Melva, [facility] [place] [facility] PATIENT QUESTIONNAIRE 2012-02-29 05:01:00 Doctor Unassigned, Uni [facility] [place] [facility] Encounters Start End Encounter Admission Attending Care Care Encounter Source Date/Time Date/Time Type Type Clinicians Facility Department ID 2022-03-16 2022-03-16 Outpatient Alisha GARDNER [facility] [id number] Univers 15:30:00 15:30:00 OPAL [id number] [facility] 2022-03-16 2022-03-16 Outpatient Alisha GARDNER [facility] [id number] Univers 15:30:00 15:30:00 OPAL [facility] 2021-10-14 2021-10-14 ambulatory [facility]ML[facility] [id number] [facility] 2021-10-07 2021-10-07 ambulatory [facility]ML[facility] [id number] [facility] 2021-10-07 2021-10-07 ambulatory [facility]MLC [facility] [id number] [facility] 2021-10-06 2021-10-06 ambulatory [facility]ML[facility] [id number] [facility] 2021-09-22 2021-09-22 Outpatient [facility]MLC [facility] [id number] [facility] 2021-08-06 2021-08-07 Inpatient JADE HookFroilanDivina [facility] [id number] [facility] 05:39:00 12:45:00 Joselito [id number] [facility] 2021-08-02 2021-08-02 Outpatient [facility]LMLC [facility] [id number] [facility] 2021-07-11 2021-07-11 Outpatient [facility]LMLC [facility] [id number] [facility] 2021-07-05 2021-07-05 Outpatient [facility]LMLC [facility] [id number] [facility] 2021-06-08 2021-06-08 Outpatient [facility]MLC [facility] [id number] [facility] 2021-05-25 2021-05-25 Outpatient [facility]MLC [facility] [id number] [facility] 2021-05-17 2021-05-17 Outpatient [facility]ML[facility] [id number] [facility] 2021-04-19 2021-04-19 Outpatient [facility]MLC [facility] [id number] [facility] 2021-04-15 2021-04-15 Outpatient [facility]MLC STLC [id number] [facility] 2021-03-31 2021-03-31 Outpatient [facility]LMLC STLC [id number] [facility] 2021-03-24 2021-03-24 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 13:35:27 13:50:27 [facility] Opal [id number] [id number] [phone] [place] dical [address] 2021-03-24 2021-03-24 Outpatient R [facility] [id number] Univers 13:15:00 13:15:[id number] [facility] 2021-03-24 2021-03-24 Outpatient R ADUM, [facility] [id number] Univers 13:15:00 13:15:[address] [facility] 2021-03-11 2021-03-11 Office Adum, [facility] 1.2.840.114 [id number] Univers 14:23:31 16:29:07 Visit Opal [place] [id number] ity [id number] [phone] [place] d[place] [address] 2021-03-11 2021-03-11 Office Adum, [facility] 1.2.840.114 [id number] 14:23:31 16:29:07 Visit Opal Barrera [id number] [place] [id number] Professio [phone] [address] 2021-03-11 2021-03-11 Outpatient R AD, [facility] [id number] Univers 14:30:00 14:30:[id number] [facility] 2021-03-11 2021-03-11 Outpatient R AD, [facility] [id number] Univers 14:30:00 14:30:[address] [facility] 2021-03-11 2021-03-11 Orders Doctor MOSES [id number] [id number] Univers 00:00:00 00:00:00 Only Unassigned, RENALDO [id number] ity of [place] [facility] [id number] Mitesh as [phone] [facility] 009 Branch 2021-03-10 2021-03-10 Telephone Kathy Lazo [id number] Univers 00:00:00 00:00:00 Ingaдмитрий Coronadoy [id number] [id number] [phone] [facility] 086 Branch 2021-02-25 2021-02-25 Outpatient [facility]LMLC [facility] [id number] [facility] 2021-02-20 2021-02-20 Outpatient [facility]LMLC [facility] [id number] [facility] 2021-02-15 2021-02-15 Outpatient [facility]MLC [facility] [id number] [facility] 2021-02-11 2021-02-11 Outpatient [facility]MLC [facility] [id number] [facility] 2021-02-10 2021-02-10 Outpatient [facility]MLC [facility] [id number] [facility] 2021-02-09 2021-02-09 Outpatient [facility]MLC [facility] [id number] [facility] 2021-02-07 2021-02-07 Outpatient [facility]LMLC STLC [id number] [facility] 2021-01-30 2021-01-30 Outpatient [facility] [id number] Univers 16:10:00 16:10:00 [facility] 2021-01-29 2021-01-29 Outpatient STLMLC [facility]LML[facility] [id number] [facility] 2021-01-25 2021-01-25 Outpatient [facility]LMLC [facility] [id number] [facility] 2021-01-18 2021-01-18 Outpatient [facility]LMLC [facility]ML[facility] [id number] [facility] 2021-01-02 2021-01-02 Outpatient Alisha PETERSON, [facility] [id number] Univers 15:10:00 15:10:00 JESSICA [facility] 2020-12-07 2020-12-07 Outpatient [facility]LMLC STLC [id number] [facility] 2020-11-04 2020-11-04 Outpatient [facility]LMLC STLC [id number] [facility] 2020-11-03 2020-11-03 Outpatient [facility]LMLC [facility] [id number] [facility] 2020-09-27 2020-09-27 Outpatient [facility]LMLC STLC [id number] [facility] 2020-09-06 2020-09-06 [id number] 2020-07-06 2020-07-06 [facility] [id number] 11:42:00 11:42:00 [facility] Medicine Outpati ent Clinics 2020-07-05 2020-07-05 [facility] [id number] 10:00:00 10:00:00 Personeta [employer] [facility] Medicine Outpati ent [facility] 2020-07-02 2020-07-02 [place] [id number] Univers 00:00:00 00:00:00 Peng Barrera [id number] ity of [place] [id number] Jovanni Bolaños [phone] [place] dical [facility] 2020-06-14 2020-06-14 [facility] [id number] 13:12:00 13:12:00 Personeta [facility] Medicine Outpati ent Clinics 2020-06-01 2020-06-01 [facility] [id number] Univers 12:30:00 23:59:00 Encounter Peng [place] [id number] ity [id number] [place] [phone] [facility] 804 Branch 2020-06-01 2020-06-01 Outpatient PENG GLEZ [facility] [id number] Univers 12:30:00 12:30:[id number] [facility] 2020-06-01 2020-06-01 Outpatient PENG SEXTON [facility] [id number] Univers 00:00:00 00:00:[address] [facility] 2020-05-28 2020-05-28 Refill Newton [facility] [id number] [id number] Univers 00:00:00 00:00:00 Peng ORTIZ [id number] [facility] [id number] [facility] [phone] [place] dical [address] [place] [address] 2020-05-27 2020-05-27 [facility] [id number] 15:57:00 15:57:00 Personeta [facility] 2020-05-11 2020-05-11 Outpatient PENG SEXTON [facility] [id number] Univers 14:00:00 14:00:00 [facility]ON PENG [id number] [facility] 2020-05-11 2020-05-11 Outpatient PENG SEXTON [facility] [id number] Univers 00:00:00 00:00:00 [facility] 2020-05-11 2020-05-11 Telephone [place] [facility] .2.840.114 [id number] Univers 00:00:00 00:00:00 Peng Barrera [id number] ity [facility] [id number] [place] [facility] [phone] [place] dical nal 2 [facility] 2020-05-04 2020-05-04 [facility] [id number] 13:46:00 13:46:00 Personeta Sezion [facility] Outpati ent [facility] 2020-04-29 2020-04-29 Telephone [place] [facility] [id number] [id number] Univers 00:00:00 00:00:00 Peng Barrera [id number] it[id number] [phone] [place] dical nal 092 [facility] 2020-04-23 2020-04-23 Telephone Newton [facility] [id number] [id number] Univers 00:00:00 00:00:00 Peng Barrera [id number] [place]y [place] [id number] [phone] [place] dical nal 092 [facility] 2020-04-21 2020-04-21 [facility] [id number] 16:33:00 16:33:00 [facility] [employer] [facility] Medicine Outpati ent Clinics 2020-04-01 2020-04-01 [facility] [id number] 10:40:00 10:40:00 SpanDeX [facility] Medicine Medicine Outpati ent Clinics 2020-03-08 2020-03-08 [facility] [id number] 16:19:00 16:19:00 Personeta Sezion s - Copier How To [facility] Medicine Medicine Outpati ent Clinics 2020-03-01 2020-03-01 [facility] [id number] 14:28:00 14:28:00 [facility] [employer] s Copier How To [facility] Medicine Outpati ent Clinics 2020-02-20 2020-02-20 [facility]ici [facility] 1.2.840.[id number] [facility] 08:21:37 15:48:50 ne Visit Peng Barrera [id number] it[place] [id number] [phone] [place] dical nal 092 [facility] 2020-02-20 2020-02-20 Outpatient PENG SEXTON [facility] [id number] Univers 08:40:00 08:40:00 PENG GLEZ [id number] ity of [facility] 2020-02-20 2020-02-20 Outpatient R PENG GLEZ [facility] [id number] Univers 08:40:00 08:40:[address] [facility] 2020-01-28 2020-01-28 [facility] [id number] 16:24:00 16:24:00 SpanDeX [facility] Medicine Outpati ent Clinics 2020-01-13 2020-01-13 Orders Doctor MOSES [id number] [id number] Univers 00:00:00 00:00:00 Only Unassigned, RENALDO [id number] [facility] [id number] Mitesh as [phone] [address] 2020-01-07 2020-01-07 [facility] [id number] 11:21:00 11:21:00 t SpanDeX [facility] Medicine Outpati ent Clinics 2020-01-05 2020-01-05 [facility] [id number] 14:40:00 14:40:00 t SpanDeX [facility] Medicine Outpati ent Clinics 2019-12-19 2019-12-19 [facility] [id number] 11:20:00 11:20:00 NVMdurance [facility] Medicine Outpati ent Clinics 2019-11-17 2019-11-17 [facility] [id number] 10:40:00 10:40:00 t SpanDeX [facility] Medicine Outpati ent Clinics 2019-11-12 2019-11-12 [facility] [id number] 15:22:00 15:22:00 t SpanDeX [facility] Medicine Outpati ent Clinics 2019-10-13 2019-10-13 [facility] [id number] 08:38:00 08:38:00 t SpanDeX [facility] Medicine Outpati ent Clinics 2019-09-25 2019-09-25 [facility] [id number] 09:55:00 09:55:[address] Luke s - Drive [facility] Outpati ent Clinics 2019-09-12 2019-09-12 [facility] [id number] 10:00:00 10:00:[address] Luke s - Drive [facility] Outpati ent Clinics 2019-08-21 2019-08-21 [facility] [id number] 14:20:00 14:20:[address] Luke s - Drive [facility] Outpati ent Clinics 2019-08-14 2019-08-14 [facility] [id number] 09:45:00 09:45:00 t Specialty/U Melba kes - Specialty rology Memori a /Urology Clinic l Clinic Outpati ent Clinics 2019-07-23 2019-07-23 [facility] [id number] 09:30:00 09:30:00 t Specialty/U Melba kes - Specialty rology Memori a /Urology Clinic l Clinic [facility] ent Clinics 2019-07-21 2019-07-21 Orders Doctor AURELIA [id number] [id number] Univers 00:00:00 00:00:00 Only Unassigned, RENALDO [id number] ity [place] [facility] [id number] Mitesh as [phone] [address] 2019-07-18 2019-07-18 [facility]patient [facility] [id number] 13:20:00 13:20:00 t [place] [employer] LuSezion s - Drive [facility] Outpati ent Clinics 2019-07-09 2019-07-09 Telephone Nguyễn MISHAUN 1.2.840.[id number] [facility] 00:00:00 00:00:00 [facility] [id number] it y of Surgical [id number] M[place]h as Specialti [phone] [facility] 198 [facility] 2019-06-20 2019-06-20 Orders Doctor MOSES [id number] [id number] Univers 00:00:00 00:00:00 Only Unassigned, RENALDO [id number] [facility] [place] [facility] [id number] Mitesh as [phone] [address] 2019-05-21 2019-05-21 [facility] [id number] 13:45:00 13:45:00 t Specialty/U Melba kes - Specialty rology Memori a /Urology Clinic l Clinic Outpati ent Clinics 2019-05-16 2019-05-16 [facility] [id number] 11:30:00 11:30:00 t Specialty/U Melba kes - Specialty rology Memori a /Urology Clinic l Clinic Outpati ent Clinics 2019-05-13 2019-05-13 Outpatient [facility] [place] [id number] [address] 10[facility]40:00 10:40:00 t [facility] Clinics 2019-05-08 2019-05-08 [facility] [id number] 11:30:00 11:30:00 t Specialty/U Melba kes - Specialty rology Memori a /Urology Clinic l Clinic [facility] ent [facility] 2019-04-11 2019-04-11 Orders Doctor MOSES 1.2.840.114 [id number] [facility] 00:00:00 00:00:00 Only Unassigned, RENALDO 350.1.13.10 ity of [place] [facility] 4.2.7.2.686 Mitesh as [phone] [address] 2019-03-13 2019-03-13 [facility] [id number] [address] 10:40:00 10:40:00 t [facility] Outpati ent Clinics 2019-02-19 2019-02-19 [facility] [id number] [address] 11:30:00 11:30:00 t Specialty/U Melba kes - Specialty rology Memori a /Urology Clinic l Clinic Outpati ent Clinics 2019-02-14 2019-02-14 [facility] [id number] 11:15:00 11:15:00 t Specialty/U Melba kes - Specialty rology Memori a /Urology Clinic l Clinic Outpati ent Clinics 2019-02-05 2019-02-05 [facility] [id number] [address] 09:30:00 09:30:00 t [place] [employer] [place] - Drive [facility] l Medicine Outpati ent Clinics 2019-01-17 2019-01-17 [facility] [id number] 11:00:00 11:00:00 t Specialty/U Melba kes - Specialty rology Memori a /Urology Clinic l Clinic Outpati ent Clinics 2019-01-13 2019-01-13 [facility] [id number] 08:30:00 08:30:00 t Specialty/U Melba kes - Specialty rology Memori a /Urology Clinic l Clinic Outpati ent Clinics 2018-12-24 2018-12-24 [facility] [id number] 07:58:00 07:58:00 t Specialty/U Melba kes - Specialty rology Memori a /Urology Clinic l Clinic Outpati ent Clinics 2018-12-17 2018-12-17 [facility] [id number] 10:15:00 10:15:00 t Specialty/U Melba kes - Specialty rology Memori a /Urology Clinic l Clinic Outpati ent Clinics 2018-12-13 2018-12-13 [facility] [id number] 09:35:00 09:35:00 t [employer] s - Drive [facility] Medicine l Medicine Outpati ent Clinics 2018-12-11 2018-12-11 [facility] [id number] 10:30:00 10:30:00 t [place] - Drive [facility] l Medicine Outpati ent Clinics 2018-08-22 2018-08-22 [facility] [id number] 08:12:00 08:12:00 t [place] - Drive [facility] Medicine l Medicine Outpati ent Clinics 2018-08-20 2018-08-20 [facility] [id number] 09:15:00 09:15:00 t [place] - Drive [facility] Medicine Outpati ent Clinics 2018-08-05 2018-08-05 [facility] [id number] 14:15:00 14:15:00 t [facility] Medicine Medicine [facility] Clinics 2015-02-17 2015-02-17 Orders Doctor AURELIA 1.2.840.114 [id number] Univers 00:00:00 00:00:00 Only Unassigned, RENALDO 350.1.13.10 [facility] [facility] 4.2.7.2.686 Mitesh as [phone] [place] [address] [address] 2014-08-19 2014-08-19 Orders Doctor AURELIA 1.2.840.114 [id number] Univers 00:00:00 00:00:00 Only Unassigned, RENALDO 350.1.13.10 [facility] [place] [facility] 4.2.7.2.686 Mitesh as [phone] [place] [address] [address] 2014-07-28 2014-07-28 Orders Doctor MOSES 1.2.840.114 [id number] Univers 00:00:00 00:00:00 Only Unassigned, RENALDO 350.1.13.10 [facility] [place] [facility] 4.2.7.2.686 Mitesh as [phone] [place] [address] [address] 2014-06-18 2014-06-18 Orders Doctor MOSES 1.2.840.114 [id number] Univers 00:00:00 00:00:00 Only Unassigned, RENALDO 350.1.13.10 [facility] [place] [facility] 4.2.7.2.686 Mitesh as [phone] [place] [address] [address] 2013-05-09 2013-05-09 Orders Doctor AURELIA 1.2.840.114 [id number] Univers 00:00:00 00:00:00 Only Unassigned, RENALDO 350.1.13.10 [facility] [place] [facility] 4.2.7.2.686 Mitesh as [phone] [place] [address] [address] 2012-09-30 2012-09-30 Orders Doctor AURELIA Jones2.840.114 [id number] [facility] 00:00:00 00:00:00 Only Unassigned, RENALDO 350.1.13.10 [facility] [place] [facility] 4.2.7.2.686 Mitesh as [phone] [address] 2012-08-13 2012-08-13 Orders Doctor AURELIA 1.2.840.114 [id number] Univers 00:00:00 00:00:00 Only Unassigned, RENALDO 350.1.13.10 it[facility] [place] [facility] 4.2.7.2.686 Mitesh as [phone] [address] 2012-02-29 2012-02-29 Orders Doctor AURELIA 1.2.840.114 [id number] Univers 00:00:00 00:00:00 Only Unassigned, RENALDO 350.1.13.10 [facility] [place] [facility] 4.2.7.2.686 Mitesh as [phone] [address] Results Test Description Test Time Test Comments Results Result Comments Source GLUCOSE BEDSIDE TESTING 2021-08-07 08:33:00 Test Item Value Reference Range Interpretation Comme nts GLUCOSE BEDSIDE TESTING (test code = GLUBED) 72 MG/DL 60-99 N - XR CHEST [id number] 06:52:00 [facility] 1965 Sex: F Patient Name: SUSIE WHITTAKER Unit No: [id number] EXAMS: CPT CODE: [id number] XR CHEST 1V 07838 EXAM: CHEST ONE VIEW INDICATION: S/P ICD [...] 16 Orig Print D/T: S: 08/07/2021 (0655) [facility] NAME: SUSIE WHITTAKER [id number] PHYS: [place] [address] : 1965 AGE: 55 SEX: F LOC: Z.363 A PHONE #: [phone] EXAM DATE: 08/07/2021 STATUS: ADM IN FAX #: [phone] RADIOLOGY NO: PAGE 1 Signed ReportBASIC METABOLIC [id number] 06:15:00 Test Item Value Reference Range Interpretation [...] 8.9 MG/DL 8.4-10.2 N CA) CBC W/AUTO [id number] 05:40:00 Test Item Value Reference Range Interpretation [...] 0.00 K/mm3 0.0-0.1 N NRBC#) GLUCOSE BEDSIDE [id number] 20:22:00 Test Item Value Reference Range Interpretation Comments GLUCOSE BEDSIDE TESTING (test code = 92 MG/DL 60-99 N GLUBED) - XR CHEST [id number] 12:24:00 [facility] : 1965 Sex: F Patient Name: SUSIE WHITTAKER Unit No: [id number] EXAMS: CPT CODE: [id number] XR CHEST 1V [id number] CLINICAL HISTORY: S/P ICD. LOCATION: A1 FINDINGS: [...] Carmine Alfaro (RT) Transcrpt Date/Tm/Trnsp: 08/06/2021 (1224) t.RC7 Orig Print D/T: S: 08/06/2021 (7460) [facility] NAME: SUSIE WHITTAKER [id number] PHYS: [place] [address] :1965 AGE: 55 SEX: F LOC: LOUANN Kerr PHONE #: [phone] EXAM DATE: 08/06/2021 STATUS: ADM IN FAX #: [phone] RADIOLOGY NO: PAGE 1 Signed Report BASIC METABOLIC [id number] 09:16:00 Test Item Value Reference Range Interpretation [...] 9.3 MG/DL 8.4-10.2 N CA) Comments to Weigh Machine Operator: NURSE WILL BRING SPECIMEN TO LABIs this [...] VERY HIGH...... ...>/= 190 mg/dL Comments to Weigh Machine Operator: NURSE WILL BRING SPECIMEN TO LABIs this a LINE draw? N [id number] 09:16:00 Test Item Value Reference Range Interpretation Comments MAGNESIUM (test code = MAG) 1.8 MG/DL 1.6-2.3 N Comments to Weigh Machine Operator: NURSE WILL BRING SPECIMEN TO LABIs this a LINE draw? N BASIC METABOLIC [id number] 09:05:00 Test Item Value Reference Range Interpretation [...] 9.3 MG/DL 8.4-10.2 N CA) Comments to Weigh Machine Operator: NURSE WILL BRING SPECIMEN TO LABIs this [...] MG/DL 0-99 code = LDL) Comments to Weigh Machine Operator: NURSE WILL BRING SPECIMEN TO LABIs this a LINE draw? N [id number] 09:05:00 Test Item Value Reference Range Interpretation Comments MAGNESIUM (test code = MAG) 1.8 MG/DL 1.6-2.3 N Comments to Weigh Machine Operator: NURSE WILL BRING SPECIMEN TO LABIs this a LINE draw? N PROTHROMBIN [id number] 09:01:00 Test Item Value Reference Range Interpretation [...] jesus embolism. 3.0 - 4.5 Comments to Weigh Machine Operator: NURSE WILL BRING SPECIMEN TO LABPTT ACTIVATED 2021-08-06 09:01:00 Test Item Value Reference Range Interpretation Comments PTT ACTIVATED (test code = APTT) 31.5 SECONDS 25.1-36.5 N Comments to Weigh Machine Operator: NURSE WILL BRING SPECIMEN TO [facility] W/AUTO DIFF 2021-08-06 08:51:00 Test Item Value [...] 0.00 K/mm3 0.0-0.1 N NRBC#) Comments to Weigh Machine Operator: NURSE WILL BRING SPECIMEN TO LABCOVID 19 Asymptomatic IH [id number] 05:59:00 Test Item Value Reference Range Interpretation [...] in the sample." MR BRAIN W WO [id number] 20:31:24 No acute intracranial abnormality. Trigeminal nerves [...] of MultiHance wasadministered intravenously. FINDINGS: The large fyojf-gh-ewck and suboptimal imaging was essential limits theunderlying [...] 20 ml of MultiHance wasadministered intravenously.FINDINGS:The large wmrie-am-cumq and suboptimal imaging was essential limits theunderlying [...] reviewed this study and agree with the abovereport.[facility]
--- NOTE | 2021-11-22 14:25 | RAD REPORT ---
EXAM DESCRIPTION: US - Extrem Venous W Compress Jaya - 11/22/2021 2:15 pm CLINICAL HISTORY: SWELLING COMPARISON: None. TECHNIQUE: Real-time sonographic evaluation of the bilateral lower extremity common femoral, superfi cial femoral, popliteal and posterior tibial veins was performed. FINDINGS: Normal compressibility, flow augmentation, phasic flow and spontaneous flow are identified in the left and right lower extremity common femoral, superficial femoral, popliteal and posterior t ibial veins. No intraluminal filling defects seen. IMPRESSION: No DVT in either lower extremity.
--- NOTE | 2021-11-22 14:36 | RAD REPORT ---
EXAM DESCRIPTION: RAD - Chest Single View - 11/22/2021 2:27 pm CLINICAL HISTORY: SWELLING, leg pain, shortness of breath COMPARISON: October 14 TECHNIQUE: AP portable chest image was obtained 11/22/2021 2:27 pm . FINDINGS: No focal lung parenchymal process. Interstitial pattern is similar or to prior study. No s ignificant vascular engorgement. 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 Heart and vasculature a re normal. No measurable pleural effusion and no pneumothorax. No acute bony abnormality seen. No acu te aortic findings suspected. IMPRESSION: No acute cardiopulmonary process. No significant change from prior study. No significant failure or volume overload findings.
--- NOTE | 2021-11-22 18:11 | ER ---
Nurse's Notes [facility] Name: Madhavi Michael Age: 55 yrs Sex: Female : 1965 Arrival Date: 11/22/2021 Time: 12:38 Bed Waiting Private MD: Halle Shabazz Diagnosis: Edema, unspecified Presentation: 11/22 13:46 Chief complaint: Patient states: bilateral lower extremity swelling x1 week (has CHF on jh5 fluid pills) and left ear pain. Coronavirus screen: Vaccine status: Patient reports receiving the 2nd dose of the covid vaccine. Client denies travel out of the [place] in the last 14 days. Ebola Screen: Patient negative for fever greater than or equal to 101.5 degrees Fahrenheit, and additional compatible Ebola Virus Disease symptoms Patient denies exposure to infectious person. Patient denies travel to an Ebola-affected area in the 21 days before illness onset. Initial Sepsis Screen: Does the patient meet any 2 criteria? No. Patient's initial sepsis screen is negative. Does the patient have a suspected source of infection? No. Patient's initial sepsis screen is negative. Risk Assessment: Do you want to hurt yourself or someone else? Patient reports no desire to harm self or others. Onset of symptoms was November 14, 2021. 13:46 Method Of Arrival: Wheelchair [facility] 13:46 Acuity: SISSY 3 jh5 Triage Assessment: 13:49 General: Appears in no apparent distress. uncomfortable, obese, well groomed, well jh5 developed, well nourished, Behavior is calm, cooperative, appropriate for age. Pain: Complains of pain in left ear. EENT: Reports right ear pain. Historical: - PMHx: 13:49 Asthma; Atrial Fib; COPD; CVA; Diabetes - NIDDM; Leaking Veins x2 Right Leg; jh5 neuropathy; sciatica; Sleep Apnea; - Immunization history:: Adult Immunizations up to date. - Social history:: Smoking status: Patient reports the use of cigarette tobacco products, smokes one-half pack cigarettes per day. Vital Signs: 13:46 BP 139 / 87; Pulse 69; Resp 18; Temp 97.1; Pulse Ox 100% ; Weight 144.7 kg; Height 5 jh5 ft. 7 in. (170.18 cm); 13:46 Body Mass Index 49.96 (144.70 kg, 170.18 cm) [facility] ED Course: 12:38 Patient arrived in ED. mr 12:38 Halle Shabazz MD is Private Physician. mr 13:49 Triage completed. [facility] 13:50 Linda Colbert FNP-C is [facility]. kb 13:50 Aman Sanchez MD is Attending Physician. kb 13:50 Arm band placed on right wrist. [facility] 14:15 US Extremity Venous W Compression Jaya In Process Unspecified. EDMS 14:26 XRAY Chest (1 view) In Process Unspecified. EDMS 18:10 Halle Shabazz MD is Referral Physician. kb Administered Medications: No medications were administered Outcome: 18:10 Discharge ordered by MD. kb 18:41 Patient left the ED. kb Signatures: Dispatcher [employer] EDMS Linda Colbert FNP-C FNP-Harlan AlfredLisset EverettJoslyn, RN RN [facility]
--- NOTE | 2021-11-22 18:11 | EDPHYS ---
Physician Documentation [facility] Name: Madhavi Michael Age: 55 yrs Sex: Female : 1965 Arrival Date: 11/22/2021 Time: 12:38 Bed Waiting Private MD: Halle Shabazz ED Physician Aman Sanchez HPI: 11/22 22:08 This 55 yrs old Black Female presents to ER via Wheelchair with complaints of Leg kb Swelling, Ear Pain. 22:08 The patient presents with pain, moderate. The complaints affect the left ear. Onset: kb The symptoms/episode began/occurred today. Modifying factors: The symptoms are alleviated by nothing, the symptoms are aggravated by nothing. Associated signs and symptoms: The patient has no apparent associated signs or symptoms. Severity of symptoms: At their worst the symptoms were moderate in the emergency department the symptoms are unchanged. The patient has not experienced similar symptoms in the past. The patient has not recently seen a physician. Pt reports lower extremity swelling for a week and left ear pain today. Historical: - PMHx: 13:49 Asthma; Atrial Fib; COPD; CVA; Diabetes - NIDDM; Leaking Veins x2 Right Leg; jh5 neuropathy; sciatica; Sleep Apnea; - Immunization history:: Adult Immunizations up to date. - Social history:: Smoking status: Patient reports the use of cigarette tobacco products, smokes one-half pack cigarettes per day. ROS: 22:08 Constitutional: Negative for fever, chills, and weight loss. kb 22:08 ENT: Positive for ear pain. 22:08 Cardiovascular: Positive for edema, Negative for chest pain, orthopnea, palpitations, paroxysmal nocturnal dyspnea. 22:08 All other systems are negative. Exam: 22:08 Constitutional: This is a well developed, well nourished patient who is awake, alert, kb and in no acute distress. Head/Face: Normocephalic, atraumatic. ENT: Moist Mucous membranes Cardiovascular: Regular rate and rhythm with a normal S1 and S2. No gallops, murmurs, or rubs. No pulse deficits. Respiratory: Respirations even and unlabored. No increased work of breathing. Talking in full sentences Skin: Warm, dry with normal turgor. Normal color. MS/ Extremity: Pulses equal, no cyanosis. Neurovascular intact. Full, normal range of motion. Neuro: Awake and alert, GCS 15, oriented to person, place, time, and situation. Moves all extremities. Normal gait. Psych: Awake, alert, with orientation to person, place and time. Behavior, mood, and affect are within normal limits. 22:08 Cardiovascular: Edema: 1+ edema to level of left foot and right foot. Vital Signs: 13:46 BP 139 / 87; Pulse 69; Resp 18; Temp 97.1; Pulse Ox 100% ; Weight 144.7 kg; Height 5 jh5 ft. 7 in. (170.18 cm); 13:46 Body Mass Index 49.96 (144.70 kg, 170.18 cm) jh5 MDM: 13:50 Patient medically screened. 18:09 Data reviewed: vital signs, nurses notes. Data interpreted: Pulse oximetry: on room air kb is 100 %. Interpretation: normal. Counseling: I had a detailed discussion with the patient and/or guardian regarding: the historical points, exam findings, and any diagnostic results supporting the discharge/admit diagnosis, radiology results, the need for outpatient follow up, a family practitioner, to return to the emergency department if symptoms worsen or persist or if there are any questions or concerns that arise at home. ED course: Pt does not want to wait any longer. Does not want blood work at this time. Pt has no shortness of breath, chest pain or any other symptoms besides lower ext swelling. Will follow up with PCP in the morning. 11/22 13:51 Order name: XRAY Chest (1 view); Complete Time: 14:41 11/22 13:51 Order name: Cardiac monitoring 11/22 13:51 Order name: EKG - Nurse/Tech 11/22 13:51 Order name: IV Saline Lock 11/22 13:51 Order name: US Extremity Venous W Compression Jaya; Complete Time: 14:41 11/22 13:51 Order name: Labs collected and sent 11/22 13:51 Order name: O2 Per Protocol 11/22 13:51 Order name: O2 Sat Monitoring kb Administered Medications: No medications were administered Disposition: 18:55 Co-signature as Attending Physician, Aman Sanchez MD I agree with the assessment and kdr plan of care. Disposition Summary: 11/22/21 18:10 Discharge Ordered Location: Home kb Condition: Stable kb Diagnosis - Edema, unspecified kb Followup: kb - With: Emergency Department - When: As needed - Reason: Worsening of condition Followup: kb - With: Halle Shabazz MD - When: 2 - 3 days - Reason: Recheck today's complaints, Continuance of care, Re-evaluation by your physician Discharge Instructions: - Discharge Summary Sheet kb - Peripheral Edema kb Forms: - Medication Reconciliation Form kb - Thank You Letter kb - Antibiotic Education kb - Prescription Opioid Use kb Signatures: Dispatcher [employer] EDMS Linda Colbert FNP-C DAVONTE-Aman Sherman MD MD kdr Rees, Jessica RN RN jh5 Corrections: (The following items were deleted from the chart) 22:04 18:09 ED course: Pt does not want to wait any longer. Does not want blood work at this kb time. Will follow up with PCP. kb 22:10 18:09 ED course: Pt does not want to wait any longer. Does not want blood work at this kb time. Pt has no shortness of breath, chest pain or any other symptoms. Will follow up with PCP. kb
[2021-11-22 19:03] VITALS: BP 139/87; TEMP 97.1; O2SAT 100
== END 2021-11-22 18:41 | disposition home or self-care (01) ==
LOC: ER 12:35
DX: R60.9 Edema, unspecified (principal); J44.9 Chronic obstructive pulmonary disease, unspecified; I48.91 Unspecified atrial fibrillation; Z86.73 Personal history of transient ischemic attack (TIA), and cerebral infarction without residual deficits; E11.9 Type 2 diabetes mellitus without complications; F17.210 Nicotine dependence, cigarettes, uncomplicated
CPT/HCPCS: 71045; 93970; 99282

== ENCOUNTER 2022-01-02 17:07 | Emergency (ER) | payer OTHER ==
--- OUTSIDE RECORDS SUMMARY | 2022-01-02 17:15 | XMS REPORT | Continuity of Care Document ---
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 05-01 it y of t status t status 00:00: [place] [facility] Knee pain, Knee pain, Disease Active U nivers right right 4-20 ity of 00:00: [place] [facility] Ileus, Ileus, Disease Active Univers postoperat postoperat 06-03 it y of beckie beckie 00:00: [place] [facility] Abdominal Abdominal Disease Active Uni vers distension distension 05-31 it y of 00:00: Medical [facility] Flank pain Flank pain Disease Active U nivers 05-31 ity of 00:00: [place] 00 [facility] Morbid Morbid Disease Active Univers obesity obesity 6-04 ity of 00:00: [place] 00 [facility] Obstructiv Obstructiv Disease Active Overview : Univers e sleep e sleep 6-04 ICD10 ity of apnea apnea 00:00: Diagnosis Term Medical Christian Counselor Branch Utility Preoperati Preoperati Disease Active U nivers ve ve 4-05 it[place] clearance clearance [place] [facility] Asthma Asthma Disease Active Overview: Univer s 2-26 ICD10 ity of 00:00: Diagnosis [place] 00 Term Medical Christian Counselor Branch Utility Essential Essential Disease Active Overview: Univers hypertensi hypertensi 2-26 ICD10 it y of on on 00:00: Diagnosis [place] 00 Term Medical Christian Counselor Branch Utility Type 2 Type 2 Disease Active Overview: Univer s diabetes diabetes 2-26 ICD10 ity of mellitus mellitus 00:00: Diagnosis Mitesh as without without 00 Term Medical complicati complicati Christian Counselor Branch ons ons Utility Excessive Excessive Disease [...] Known DA Active U [facility] [place] 00:00: [address] No Known DA Active U [facility] [place] 00:00: [address] NO KNOWN Drug Active Univers ALLERGIE Class ity of S [facility] Social History Social Habit Start Date Stop Date Quantity Comments Source History of tobacco Cigarette Smoker University of use [facility] Exposure to Not sure [facility] SARS-CoV-2 (event) [facility] Cigarettes smoked 2021-03-11 2021-03-11 Univers ity of current (pack per 00:00:00 00:00:00 ) - Reported Branch Cigarette 2021-03-11 2021-03-11 University of pack-years 00:00:00 00:00:00 [facility] Alcohol intake 2021-03-11 2021-03-11 Current University of 00:00:00 00:00:00 non-drinker of [facility] [place] alcohol [place] (finding) Tobacco use and 2021-03-11 2021-03-11 Never used Universit y of exposure 00:00:00 00:00:00 [facility] Tobacco Comment 2021-03-11 2021-03-11 1 pack in 2 days Uni versity of 00:00:00 00:00:00 [facility] Sex [birth year] At [birth year] Universit y of 00:00:00 00:00:00 [facility] Smoking Status Start Date Stop Date Source [facility] Current every day smoker 2021-03-11 00:00:00 Uni versity of [facility] Medications Ordered Filled Start Stop Current Ordering [...] mouth ity of mg tablet 19:52: daily. [place] [address] Medical Branch propranolol 0 Yes 40mg Take 40 mg Univers (INDERAL) 4-16 by mouth ity of 40 mg 19:52: daily. [place] tablet 21 Medical Branch aspirin 81 Yes 81mg Take 81 mg U nivers mg chewable 4-16 by mouth ity of tablet 19:52: daily. [place] 21 [facility] Branch amitriptyli Yes 10mg Take [...] mouth ity of mg tablet 19:52: daily. [place] 21 Medical Branch propranolol 0 Yes 40mg Take 40 mg Univers (INDERAL) 4-16 by mouth ity of 40 mg 19:52: daily. [place] tablet 21 Medical Branch aspirin 81 0 Yes 81mg Take 81 mg U nivers mg chewable 4-16 by mouth ity of tablet 19:52: daily. [place] [address] Medical Branch amitriptyli Yes 10mg Take 10 [...] mouth ity of mg tablet 19:52: daily. [place] [address] Medical Branch propranolol Yes 40mg Take 40 mg Univers (INDERAL) 4-16 by mouth ity of 40 mg 19:52: daily. [place] tablet 21 Medical Branch aspirin 81 Yes 81mg Take 81 mg U nivers mg chewable 4-16 by mouth ity of tablet 19:52: daily. [place] [address] Medical Branch amitriptyli Yes 10mg Take 10 [...] capsule 00:00: [place] 00 Medical Branch HYDROcodone 2021-0 Yes 1{tbl} Take 1 Un [...] mouth 2 ity of tablet 00:00: (two) [place] times Medical daily. Branch spironolact 2020-0 Yes 25mg Take 25 mg Univers one 25 mg 4-05 by mouth 2 ity of tablet 00:00: (two) times Medical daily. Branch spironolact Yes 25mg Take 25 mg Univers one 25 mg 4-05 by mouth 2 ity of tablet 00:00: (two) times Medical daily. Branch Tizanidine Tizanidine 2020- No Na Shabazz [address] [facility] HCl HCl 07-06 [facility] gadobenate 2020- No .2mL/kg 0.2 mL/kg, Univers dimeglumine 06-01 Intravenou i ty of (MULTIHANCE 18:30: 18:30 s, ONCE, 1 [place] -20 mL) 00 :00 dose, Tue Medical injection 06/01/20 at Bran h 0.2 mL/kg 1330, Routine diazePAM 5 2019-0 Yes [id number] 5mg Take 1 U nivers mg tablet 7-03 tablet by ity o f 00:00: mouth 2 (two) Medical times Branch daily. May take both befor the MRI diazePAM 5 2019-0 Yes [id number] 5mg Take 1 U nivers mg tablet 7-03 tablet by ity o f 00:00: mouth 2 (two) Medical times Branch daily. May take both befor the MRI diazePAM 5 2020-0 Yes [id number] 5mg Take 1 U nivers mg tablet 7-03 tablet by ity o f 00:00: mouth 2 (two) Medical times Branch daily. May take both befor the MRI diazePAM 5 2020-0 Yes [id number] 5mg Take 1 U nivers mg tablet 7-03 tablet by ity o f 00:00: mouth 2 (two) Medical times Branch daily. May take both befor the MRI diazePAM 5 2020-0 Yes [id number] 5mg Take 1 U nivers mg tablet 7-03 tablet by ity o f 00:00: mouth 2 (two) Medical times Branch daily. May take both befor the MRI diazePAM 5 2020-0 Yes [id number] 5mg Take 1 U nivers mg tablet 7-03 tablet by ity o f 00:00: mouth 2 (two) Medical times Branch daily. May take both befor the MRI diazePAM 5 2020-0 Yes [id number] 5mg Take 1 U nivers mg tablet 7-03 tablet by ity o f 00:00: mouth (two) Medical times Branch daily. May take both befor the MRI diazePAM 5 2020-0 Yes [id number] 5mg Take 1 U nivers mg tablet 7-03 tablet by ity o f 00:00: mouth (two) Medical times Branch daily. May take both befor the MRI cyclobenzap 2019-0 Yes [id number] 10mg Take 1 Univers rine 10 mg 8-15 tablet by ity of tablet 00:00: mouth 3 (three) Medical times Branch daily. cyclobenzap 2019-0 Yes [id number] 10mg Take 1 Univers rine 10 mg 8-15 tablet by ity of tablet 00:00: mouth 3 (three) Medical times Branch daily. cyclobenzap 2019-0 Yes [id number] 10mg Take 1 Univers rine 10 mg 8-15 tablet by ity of tablet 00:00: mouth 3 (three) Medical times Branch daily. cyclobenzap 2019-0 Yes [id number] 10mg Take 1 Univers rine 10 mg 8-15 tablet by ity of tablet 00:00: mouth 3 (three) Medical times Branch daily. cyclobenzap 2019-0 Yes [id number] 10mg Take 1 Univers rine 10 mg 8-15 tablet by ity of tablet 00:00: mouth 3 (three) Medical times Branch daily. cyclobenzap 2019-0 Yes [id number] 10mg Take 1 Univers rine 10 mg 8-15 tablet by ity of tablet 00:00: mouth 3 (three) Medical times Branch daily. cyclobenzap 2019-0 Yes [id number] 10mg Take 1 Univers rine 10 mg 8-15 tablet by ity of tablet 00:00: mouth 3 (three) Medical times Branch daily. cyclobenzap 2019-0 Yes [id number] 10mg Take 1 Univers rine 10 mg 8-15 tablet by ity of tablet 00:00: mouth 3 (three) Medical times Branch daily. cyclobenzap 2019-0 Yes [id number] 10mg Take 1 Univers rine 10 mg 8-15 tablet by ity of tablet 00:00: mouth 3 (three) Medical times Branch daily. cyclobenzap 2019-0 Yes [id number] 10mg Take 1 Univers rine 10 mg 8-15 tablet by ity of tablet 00:00: mouth (three) Medical times Branch daily. cyclobenzap 2019-0 Yes [id number] 10mg Take 1 Univers rine 10 mg 8-15 tablet by ity of tablet 00:00: mouth (three) Medical times Branch daily. cyclobenzap 2019-0 Yes [id number] 10mg Take 1 Univers rine 10 mg 8-15 tablet by ity of tablet 00:00: mouth (three) Medical times Branch daily. cyclobenzap 2019-0 Yes [id number] 10mg Take 1 Univers rine 10 mg 8-15 tablet by ity of tablet 00:00: mouth (three) Medical times Branch daily. cyclobenzap 2019-0 Yes [id number] 10mg Take 1 Univers rine 10 mg 8-15 tablet by ity of tablet 00:00: mouth 3 (three) Medical times Branch daily. cyclobenzap 2019-0 Yes [id number] 10mg Take 1 Univers rine 10 mg 8-15 tablet by ity of tablet 00:00: mouth 3 (three) Medical times Branch daily. methylPREDN 2019-0 Yes [id number] Take by Univers ISolone 7-10 mouth ity of (MEDROL, 00:00: SEE-INSTRU Mitesh as TIMOTHY,) 4 mg 00 CTIONS. Medica l tablets follow Branch package directions methylPREDN 2019-0 Yes [id number] Take by Univers ISolone 7-10 mouth ity of (MEDROL, 00:00: SEE-INSTRU Mitesh as TIMOTHY,) 4 mg 00 CTIONS. Medica l tablets follow Branch package directions methylPREDN 2019-0 Yes [id number] Take by Univers ISolone 7-10 mouth ity of (MEDROL, 00:00: SEE-INSTRU Mitesh as TIMOTHY,) 4 mg 00 CTIONS. Medica l tablets follow Branch package directions methylPREDN 2019-0 Yes [id number] Take by Univers ISolone 7-10 mouth ity of (MEDROL, 00:00: SEE-INSTRU Mitesh as TIMOTHY,) 4 mg 00 CTIONS. Medica l tablets follow Branch package directions methylPREDN 2019-0 Yes [id number] Take by Univers ISolone 7-10 mouth ity of (MEDROL, 00:00: SEE-INSTRU Mitesh as TIMOTHY,) 4 mg 00 CTIONS. Medica l tablets follow Branch package directions methylPREDN 2019-0 Yes [id number] Take by Univers ISolone 7-10 mouth ity of (MEDROL, 00:00: SEE-INSTRU Mitesh as TIMOTHY,) 4 mg 00 CTIONS. Medica l tablets follow Branch package directions methylPREDN 2019-0 Yes [id number] Take by Univers ISolone 7-10 mouth ity of (MEDROL, 00:00: SEE-INSTRU Mitesh as TIMOTHY,) 4 mg 00 CTIONS. Medica l tablets follow Branch package directions methylPREDN 2019-0 Yes [id number] Take by Univers ISolone 7-10 mouth ity of (MEDROL, 00:00: SEE-INSTRU Mitesh as TIMOTHY,) 4 mg 00 CTIONS. Medica l tablets follow Branch package directions methylPREDN 2019-0 Yes [id number] Take by Univers ISolone 7-10 mouth ity of (MEDROL, 00:00: SEE-INSTRU Mitesh as TIMOTHY,) 4 mg 00 CTIONS. Medica l tablets follow Branch package directions methylPREDN 2019-0 Yes [id number] Take by Univers ISolone 7-10 mouth ity of (MEDROL, 00:00: SEE-INSTRU Mitesh as TIMOTHY,) 4 mg 00 CTIONS. Medica l tablets follow Branch package directions methylPREDN 2019-0 Yes [id number] Take by Univers ISolone 7-10 mouth ity of (MEDROL, 00:00: SEE-INSTRU Mitesh as TIMOTHY,) 4 mg 00 CTIONS. Medica l tablets follow Branch package directions methylPREDN 2019-0 Yes [id number] Take by Univers ISolone 7-10 mouth ity of (MEDROL, 00:00: SEE-INSTRU Mitesh as TIMOTHY,) 4 mg 00 CTIONS. Medica l tablets follow Branch package directions methylPREDN 2019-0 Yes [id number] Take by Univers ISolone 7-10 mouth ity of (MEDROL, 00:00: SEE-INSTRU Mitesh as TIMOTHY,) 4 mg 00 CTIONS. Medica l tablets follow Branch package directions methylPREDN 2019-0 Yes [id number] Take by Univers ISolone 7-10 mouth ity of (MEDROL, 00:00: SEE-INSTRU Mitesh as TIMOTHY,) 4 mg 00 CTIONS. Medica l tablets follow Branch package directions methylPREDN 2018-0 Yes [id number] Take by Univers ISolone 7-10 mouth ity of (MEDROL, 00:00: SEE-INSTRU Mitesh as TIMOTHY,) 4 mg 00 CTIONS. Medica l tablets follow Branch package directions cyclobenzap 2019-0 Yes [id number] 10mg Take 1 Univers rine 10 mg 7-10 tablet by ity of tablet 00:00: mouth 3 [place] 00 (three) Medical times Branch daily. methylPREDN 2019-0 Yes [id number] Take by Univers ISolone 7-10 mouth ity of (MEDROL, 00:00: SEE-INSTRU Mitesh as TIMOTHY,) 4 mg 00 CTIONS. Medica l tablets follow Branch package directions cyclobenzap 2018- 2019- No [id number] 10mg Take 1 Univers rine 10 mg 7-10 08-15 tablet by ity of tablet 00:00: 00:00 mouth 3 [place] 00 :00 (three) Medical times Branch daily. APIXABAN 2016-11 Yes Take by Unive rs (ELIQUIS 1-03 mouth. ity of ORAL) 16:13: [place] 59 Medical Branch fluticasone 2016- Yes Inhale. Uni vers -vilanterol 1-03 ity of (BREO 16:13: [place] ELLIPTA) 59 Medical 100-25 Branch mcg/dose DsDv APIXABAN Yes Take by Unive rs (ELIQUIS 1-03 mouth. ity of ORAL) 16:13: [place] [address] Medical Branch fluticasone 2017- Yes Inhale. Uni vers -vilanterol 1-03 ity of (BREO 16:13: [place] ELLIPTA) 59 Medical 100-25 Branch mcg/dose DsDv APIXABAN 2017- Yes Take by Unive rs (ELIQUIS 1-03 mouth. ity of ORAL) 16:13: [place] [address] Medical Branch fluticasone 2017- Yes Inhale. Uni vers -vilanterol 1-03 ity of (BREO 16:13: [place] ELLIPTA) 59 Medical 100-25 Branch mcg/dose DsDv APIXABAN 2017- Yes Take by Unive rs (ELIQUIS 1-03 mouth. ity of ORAL) 16:13: [place] [address] Medical Branch fluticasone 2017 Yes Inhale. Uni vers -vilanterol 1-03 ity of (BREO 16:13: [place] ELLIPTA) 59 Medical 100-25 Branch mcg/dose DsDv APIXABAN 2017- Yes Take by Unive rs (ELIQUIS 1-03 mouth. ity of ORAL) 16:13: [place] [address] Medical Branch fluticasone 2017 Yes Inhale. Uni vers -vilanterol 1-03 ity of (BREO 16:13: [place] ELLIPTA) 59 Medical 100-25 Branch mcg/dose DsDv APIXABAN 2017- Yes Take by Unive rs (ELIQUIS 1-03 mouth. ity of ORAL) 16:13: [place] [address] Medical Branch fluticasone 2017- Yes Inhale. Uni vers -vilanterol 1-03 ity of (BREO 16:13: [place] ELLIPTA) 59 Medical 100-25 Branch mcg/dose DsDv APIXABAN 2017- Yes Take by Unive rs (ELIQUIS 1-03 mouth. ity of ORAL) 16:13: [place] [address] Medical Branch fluticasone 2017- Yes Inhale. Uni vers -vilanterol 1-03 ity of (BREO 16:13: [place] ELLIPTA) 59 Medical 100-25 Branch mcg/dose DsDv APIXABAN 2017- Yes Take by Unive rs (ELIQUIS 1-03 mouth. ity of ORAL) 16:13: [place] [address] Medical Branch fluticasone 2017- Yes Inhale. Uni vers -vilanterol 1-03 ity of (BREO 16:13: [place] ELLIPTA) 59 Medical 100-25 Branch mcg/dose DsDv APIXABAN 2017- Yes Take by Unive rs (ELIQUIS 1-03 mouth. ity of ORAL) 16:13: [place] 59 Medical Branch fluticasone 2017- Yes Inhale. Uni vers -vilanterol 1-03 ity of (BREO 16:13: [place] ELLIPTA) 59 Medical 100-25 Branch mcg/dose DsDv APIXABAN 2017- Yes Take by Unive rs (ELIQUIS 1-03 mouth. ity of ORAL) 16:13: [place] 59 Medical Branch fluticasone 2017- Yes Inhale. Uni vers -vilanterol 1-03 ity of (BREO 16:13: [place] ELLIPTA) 59 Medical 100-25 Branch mcg/dose DsDv APIXABAN 2017- Yes Take by Unive rs (ELIQUIS 1-03 mouth. ity of ORAL) 16:13: [place] [address] Medical Branch fluticasone 2017- Yes Inhale. Uni vers -vilanterol 1-03 ity of (BREO 16:13: [place] ELLIPTA) 59 Medical 100-25 Branch mcg/dose DsDv APIXABAN 2017- Yes Take by Unive rs (ELIQUIS 1-03 mouth. ity of ORAL) 16:13: [place] [address] Medical Branch fluticasone 2017- Yes Inhale. Uni vers -vilanterol 1-03 ity of (BREO 16:13: [place] ELLIPTA) 59 Medical 100-25 Branch mcg/dose DsDv APIXABAN 2017- Yes Take by Unive rs (ELIQUIS 1-03 mouth. ity of ORAL) 16:13: [place] [address] Medical Branch fluticasone 2017- Yes Inhale. Uni vers -vilanterol 1-03 ity of (BREO 16:13: [place] ELLIPTA) 59 Medical 100-25 Branch mcg/dose DsDv APIXABAN 2017- Yes Take by Unive rs (ELIQUIS 1-03 mouth. ity of ORAL) 16:13: [place] [address] Medical Branch fluticasone 2017- Yes Inhale. Uni vers -vilanterol 1-03 ity of (BREO 16:13: [place] ELLIPTA) 59 Medical 100-25 Branch mcg/dose DsDv levoFLOXaci 2016-11 Yes Univer s n 500 mg 0-30 ity of tablet 00:00: [place] 00 Medical Branch penicillin 2016-11 Yes Univers v potassium 0-30 ity of [...] of tablet 00:00: [place] [facility] penicillin 2017- Yes Univers v [...] of tablet 00:00: [place] [facility] penicillin 2017- Yes Univers v [...] [place] tablet 00 Medical Branch lidocaine 5 2017- Yes Univer s % ointment 0-17 ity of 00:00: [place] 00 Medical Branch lidocaine 5 2017- Yes Univer s % ointment 0-17 ity [...] mouth ity of mg tablet 13:38: daily. [place] [address] Medical Branch propranolol 2017 Yes 40mg Take 40 mg Univers (INDERAL) 8-10 by mouth ity of 40 mg 13:38: daily. [place] tablet Medical Branch aspirin 81 Yes 81mg Take 81 mg U nivers mg chewable 8-10 by mouth ity of tablet 13:38: daily. [place] [address] Medical Branch amitriptyli Yes 10mg Take 10 mg Univers ne (ELAVIL) 8-10 by mouth ity of 10 mg 13:38: at [place] tablet 04 bedtime. Medical Branch simvastatin Yes 20mg Take 20 mg Univers (ZOCOR) 20 8-10 by mouth ity o f mg tablet 13:38: at [place] [address] bedtime. Medical Branch albuterol-i Yes Inhale 4 Un michael pratropium 8-10 (four) ity of (COMBIVENT 13:38: times [place] INHALER) 04 daily. Medical 18-103 Branch mcg/actuati on inhaler FLUTICASONE Yes 2{puff} Inhale 2 Univers PROPIONATE 8-10 Puffs as ity o f (FLOVENT 13:38: needed. [place] ROTADISK 04 Medical INHALE) Branch Gabapentin, 2017 Yes 600mg 600 mg 3 U nivers Bulk, 100 % 8-10 (three) ity o f Powd 13:38: times [place] 04 daily. Medical Branch amLODIPine 2017 Yes 5mg Take 5 mg Un michael (NORVASC) 5 8-10 by mouth ity of mg tablet 13:38: daily. [place] [address] Medical Branch propranolol Yes 40mg Take 40 mg Univers (INDERAL) 8-10 by mouth ity of 40 mg 13:38: daily. [place] [address] Medical Branch aspirin 81 Yes 81mg Take 81 mg U nivers mg chewable 8-10 by mouth ity of tablet 13:38: daily. [place] [address] Medical Branch amitriptyli Yes 10mg Take 10 mg Univers ne (ELAVIL) 8-10 by mouth ity of 10 mg 13:38: at [place] tablet 04 bedtime. Medical Branch simvastatin 2017- Yes 20mg Take 20 mg Univers (ZOCOR) 20 8-10 by mouth ity o f mg tablet 13:38: at [place] 04 bedtime. Medical Branch albuterol-i 2017 Yes Inhale [...] mouth ity of mg tablet 13:38: daily. [place] [address] Medical Branch propranolol 2017 Yes 40mg Take 40 mg Univers (INDERAL) 8-10 by mouth ity of 40 mg 13:38: daily. [place] [address] Medical Branch aspirin 81 2017 Yes 81mg [...] at [place] 04 bedtime. Medical Branch albuterol-i 2017 Yes Inhale [...] times [place] 04 daily. Medical Branch amLODIPine 2017-0 Yes 5mg Take 5 mg Un michael (NORVASC) 5 8-10 by mouth ity of mg tablet 13:38: daily. [place] [address] Medical Branch propranolol [address] Yes 40mg Take 40 mg Univers (INDERAL) 8-10 by mouth ity of 40 mg 13:38: daily. [place] [address] Medical Branch aspirin 81 2017 Yes 81mg Take 81 mg U nivers mg chewable 8-10 by mouth ity of tablet 13:38: daily. [place] [address] Medical Branch amitriptyli 2017 Yes 10mg Take [...] as ity o f (FLOVENT 13:38: needed. [place] ROTADISK 04 Medical INHALE) Branch Gabapentin, 2017-0 Yes 600mg 600 mg 3 U nivers Bulk, 100 % 8-10 (three) ity o f Powd 13:38: times [place] 04 daily. Medical Branch amLODIPine 2017-0 Yes 5mg Take 5 mg Un michael (NORVASC) 5 8-10 by mouth ity of mg tablet 13:38: daily. [place] [address] Medical Branch propranolol 2017 Yes 40mg Take 40 mg Univers (INDERAL) 8-10 by mouth ity of 40 mg 13:38: daily. [place] tablet Medical Branch aspirin 81 Yes 81mg Take 81 mg U nivers mg chewable 8-10 by mouth ity of tablet 13:38: daily. [place] [address] Medical Branch amitriptyli 2017 Yes 10mg Take [...] as ity o f (FLOVENT 13:38: needed. [place] ROTADISK 04 Medical INHALE) Branch Gabapentin, 2017 Yes 600mg 600 mg 3 U nivers Bulk, 100 % 8-10 (three) ity o f Powd 13:38: times [place] 04 daily. Medical Branch amLODIPine 2017 Yes 5mg Take 5 mg Un michael (NORVASC) 5 8-10 by mouth ity of mg tablet 13:38: daily. [place] [address] Medical Branch propranolol 2017 Yes 40mg Take 40 mg Univers (INDERAL) 8-10 by mouth ity of 40 mg 13:38: daily. [place] [address] Medical Branch aspirin 81 2017 Yes 81mg Take 81 mg U nivers mg chewable 8-10 by mouth ity of tablet 13:38: daily. [place] [address] Medical Branch amitriptyli Yes 10mg Take 10 [...] Medical 18 Branch mcg/actuati on inhaler FLUTICASONE Yes 2{puff} Inhale 2 Univers PROPIONATE 8-10 Puffs as ity o f (FLOVENT 13:38: needed. [place] ROTADISK 04 Medical INHALE) Branch Gabapentin, 2017 Yes 600mg 600 mg 3 U nivers Bulk, 100 % 8-10 (three) ity o f Powd 13:38: times [place] 04 daily. Medical Branch amLODIPine Yes 5mg Take 5 mg Un michael (NORVASC) 5 8-10 by mouth ity of mg tablet 13:38: daily. [place] [address] Medical Branch propranolol Yes 40mg Take 40 mg Univers (INDERAL) 8-10 by mouth ity of 40 mg 13:38: daily. [place] [address] Medical Branch aspirin 81 2017 Yes 81mg Take 81 mg U nivers mg chewable 8-10 by mouth ity of tablet 13:38: daily. [place] [address] Medical Branch amitriptyli Yes 10mg Take 10 [...] Medical 18 Branch mcg/actuati on inhaler FLUTICASONE 2017- Yes 2{puff} Inhale 2 Univers PROPIONATE 8-10 [...] mouth ity of mg tablet 13:38: daily. [place] [address] Medical Branch propranolol Yes 40mg Take 40 [...] mouth ity of mg tablet 13:38: daily. [place] [address] Medical Branch propranolol Yes 40mg Take 40 mg Univers (INDERAL) 8-10 by mouth ity of 40 mg 13:38: daily. [place] [address] Medical Branch aspirin 81 Yes 81mg Take 81 mg U nivers mg chewable 8-10 by mouth ity of tablet 13:38: daily. [place] [address] Medical Branch amitriptyli Yes 10mg Take 10 [...] mouth ity of mg tablet 13:38: daily. [place] [address] Medical Branch propranolol 2017 Yes 40mg Take 40 mg Univers (INDERAL) 8-10 by mouth ity of 40 mg 13:38: daily. [place] [address] Medical Branch aspirin 81 2017 Yes 81mg Take 81 mg U nivers mg chewable 8-10 by mouth ity of tablet 13:38: daily. [place] [address] Medical Branch amitriptyli Yes 10mg Take 10 [...] times [place] 04 daily. Medical Branch amLODIPine 2017-0 Yes 5mg Take 5 mg Un michael (NORVASC) 5 8-10 by mouth ity of mg tablet 13:38: daily. [place] Medical Branch propranolol 2017 Yes 40mg Take [...] iron) 04 daily. Medical tablet Branch FLUTICASONE 2017 Yes 2{puff} Inhale 2 [...] mouth ity of mg tablet 13:38: daily. [place] [address] Medical Branch propranolol 2017 Yes 40mg Take 40 mg Univers (INDERAL) 8-10 by mouth ity of 40 mg 13:38: daily. [place] [address] Medical Branch aspirin 81 2017 Yes 81mg Take 81 mg U nivers mg chewable 8-10 by mouth ity of tablet 13:38: daily. [place] [address] Medical Branch amitriptyli Yes 10mg Take 10 [...] mouth ity of mg tablet 13:38: daily. [place] [address] Medical Branch CARVEDILOL Yes 25mg Take 25 [...] mouth ity of 40 mg 13:38: daily. [place] [address] Medical Branch aspirin 81 Yes 81mg Take 81 mg U nivers mg chewable 8-10 by mouth ity of tablet 13:38: daily. [place] [address] Medical Branch albuterol-i Yes Inhale 4 Un michael pratropium 8-10 (four) ity of (COMBIVENT 13:38: times [place] INHALER) 04 daily. Medical 18-103 Branch mcg/actuati on inhaler FLUTICASONE 0 Yes 2{puff} Inhale 2 Univers PROPIONATE 8-10 [...] mouth ity of mg tablet 13:38: daily. [place] [address] Medical Branch propranolol 2017 Yes 40mg Take 40 mg Univers (INDERAL) 8-10 by mouth ity of 40 mg 13:38: daily. [facility] 04 Medical Branch aspirin 81 2017 Yes 81mg Take 81 mg U nivers mg chewable 8-10 by mouth ity of tablet 13:38: daily. [place] [address] Medical Branch amitriptyli Yes 10mg Take 10 [...] Medical 18- Branch mcg/actuati on inhaler FLUTICASONE 2017 Yes [...] mouth ity of mg tablet 13:38: daily. [place] [address] Medical Branch propranolol 2017 Yes 40mg Take 40 mg Univers (INDERAL) 8-10 by mouth ity of 40 mg 13:38: daily. [place] [address] Medical Branch aspirin 81 2017 Yes 81mg Take 81 mg U nivers mg chewable 8-10 by mouth ity of tablet 13:38: daily. [place] [address] Medical Branch amitriptyli Yes 10mg Take 10 [...] mg tablet 13:38: daily. Medical Branch propranolol 2017-0 Yes 40mg Take [...] [place] 04 times Medical daily. Branch albuterol-i 2017 Yes Inhale 4 Un [...] times [place] 04 daily. Medical Branch amLODIPine 2017- Yes 5mg Take 5 mg Un michael (NORVASC) 5 8-10 by mouth ity of mg tablet 13:38: daily. [place] [address] Medical Branch ferrous 2017 Yes 325mg Take [...] by mouth ity of tablet 13:38: daily. [place] [address] Medical Branch amitriptyli 2017 Yes 10mg Take [...] as ity o f (FLOVENT 13:38: needed. [place] ROTADISK 04 Medical INHALE) Branch Gabapentin, 2017- Yes 600mg 600 mg 3 U nivers Bulk, 100 % 8-10 (three) ity o f Powd 13:38: times [place] 04 daily. Medical Branch amLODIPine Yes 5mg Take 5 mg Un michael (NORVASC) 5 8-10 by mouth ity of mg tablet 13:38: daily. [place] [address] Medical Branch propranolol Yes 40mg Take 40 mg Univers (INDERAL) 8-10 by mouth ity of 40 mg 13:38: daily. [place] tablet 04 Medical Branch aspirin 81 Yes 81mg Take 81 mg U nivers mg chewable 8-10 by mouth ity of tablet 13:38: daily. [place] [address] Medical Branch amitriptyli Yes 10mg Take 10 [...] as ity o f (FLOVENT 13:38: needed. [place] ROTADISK 04 Medical INHALE) Branch Gabapentin, Yes 600mg 600 mg 3 U nivers Bulk, 100 % 8-10 (three) ity o f Powd 13:38: times [place] 04 daily. Medical Branch amLODIPine Yes 5mg Take 5 mg Un michael (NORVASC) 5 8-10 by mouth ity of mg tablet 13:38: daily. [place] [address] Medical Branch propranolol Yes 40mg Take 40 mg Univers (INDERAL) 8-10 by mouth ity of 40 mg 13:38: daily. [place] [address] Medical Branch aspirin 81 Yes 81mg Take 81 mg U nivers mg chewable 8-10 by mouth ity of tablet 13:38: daily. [place] [address] Medical Branch amitriptyli Yes 10mg Take 10 [...] 4-13 Dose to ity of 00:00: area(s) [place] [address] every Medical evening. Branch losartan Yes 100mg [...] capsule daily. Branch Potassium Potassium Yes Na Shabzaz [address] [facility] Chloride ER Chloride ER with food [facility] No known No Univers medications [facility] No known No Univers medications [facility] No known No Univers medications [facility] Immunizations Ordered Filled Immunization Date Status Comments [facility] Immunization Name Name SARS-COV-2 COVID-19 2021-01-30 Completed Unive rsity of MODERNA VACCINE 00:00:00 [facility] SARS-COV-2 COVID-19 2021-01-30 Completed Unive rsity of MODERNA VACCINE 00:00:00 [facility] SARS-COV-2 COVID-19 2021-01-30 Completed Unive rsity of MODERNA VACCINE 00:00:00 [facility] SARS-COV-2 COVID-19 2021-01-30 Completed Unive rsity of MODERNA VACCINE 00:00:00 [facility] SARS-COV-2 COVID-19 2021-01-30 Completed Unive rsity of MODERNA VACCINE 00:00:00 [facility] SARS-COV-2 COVID-19 2021-01-02 Completed Unive rsity of MODERNA VACCINE 00:00:00 [facility] SARS-COV-2 COVID-19 2021-01-02 Completed Unive rsity of MODERNA VACCINE 00:00:00 [facility] SARS-COV-2 COVID-19 2021-01-02 Completed Unive rsity of MODERNA VACCINE 00:00:00 [place] Med ical Branch SARS-COV-2 COVID-19 2021-01-02 Completed Unive rsity of MODERNA VACCINE 00:00:00 [facility] ical Branch SARS-COV-2 COVID-19 2021-01-02 Completed Unive rsity of MODERNA VACCINE 00:00:00 [facility] ica Branch Afluria single dose Afluria single dose 2019-08-[address] [facility] 00[facility]00 [facility] Pneumococcal 2013-06-06 Completed University o f [...] Systolic blood 2021-03-11 19:58:00 153 mm[Hg] [facility] 2021-03-11 19:58:00 90 mm[Hg] Unive [facility] Heart rate 2021-03-11 19:46:00 69 /min [facility] Body temperature 2021-03-11 19:46:00 36.89 Daniela [facility] Respiratory rate 2021-03-11 19:46:00 18 /min [facility] Body height 2021-03-11 19:46:00 170.2 cm [facility] Body weight 2021-03-11 19:46:00 142.883 kg [facility] BMI 2021-03-11 19:46:00 49.34 kg/m2 [facility] Systolic blood 2021-03-11 19:58:00 153 mm[Hg] [facility] Diastolic blood 2021-03-11 19:58:00 90 mm[Hg] [facility] 2021-03-11 19:46:00 69 /min [facility] Medical [place] Body temperature 2021-03-11 19:46:00 36.89 Daniela [facility] Respiratory rate 2021-03-11 19:46:00 18 /min [facility] Body height 2021-03-11 19:46:00 170.2 cm [facility] Body weight 2021-03-11 19:46:00 142.883 kg [facility] BMI 2021-03-11 19:46:00 49.34 kg/m2 [facility] Procedures Procedure Date / Time Performing Clinician Source Performed ASSIGNMENT OF BENEFITS 2021-03-11 19:23:16 Doctor Melva, [facility] Name Medical Branch MR BRAIN W WO CONTRAST 2020-06-01 19:29:[address] [facility] Medical [place] REFERRAL- 2020-01-13 06:01:00 Doctor Melva, [facility] REQUEST/RESPONSE [place] [facility] REFERRAL- 2019-07-21 05:01:00 Doctor Melva, [facility] REQUEST/RESPONSE [place] [facility] OP CLINIC NOTES/CONSULTS 2019-06-20 05:01:00 Doctor Melva, [facility] [place] [facility] AGREEMENTS AUTHORIZATIONS 2019-04-11 05:01:00 Doctor Melva, [facility] AND IRREVOCABLE [place] [facility] ASSIGNMENTS (FORM 2001) MEDICATION CORRESPONDENCE 2015-02-17 05:01:[address] [facility] [place] [facility] PATIENT AGREEMENTS AND 2014-08-19 05:01:00 Doctor Melva, [facility] CONTRACTS [place] [facility] MEDICATION CORRESPONDENCE 2014-07-28 05:01:00 Doctor Melva, [facility] [place] [facility] PATIENT QUESTIONNAIRE 2014-06-18 05:01:00 Doctor Melva [facility] [place] [facility] MEDICATION CORRESPONDENCE 2013-05-09 05:01:00 Doctor Melva, [facility] [place] [facility] MEDICATION CORRESPONDENCE 2012-09-30 06:01:00 Doctor Melva, [facility] [place] [facility] MEDICATION CORRESPONDENCE 2012-08-13 05:01:00 Doctor Melva, [facility] [place] [facility] PATIENT QUESTIONNAIRE 2012-02-29 05:01:00 Doctor Unassigned, [facility] [place] [facility] Encounters Start End Encounter Admission Attending Care Care Encounter Source Date/Time Date/Time Type Type Clinicians Facility Department ID 2022-01-02 Outpatient Mele, Na STLMLC STLMLC [id number] [facility] 16:38[facility]01 [facility] 2021-12-21 Outpatient Shabazz, Na STLMLC STLMLC [id number] 14:25:40 [id number] [facility] 2021-12-21 Outpatient Shabazz, Na STLMLC STLMLC [id number] [facility] 14:24:21 [id number] [facility] 2021-12-21 Outpatient Shabazz, Na STLMLC STLMLC [id number] [facility] 14:13:58 [id number] [facility] 2021-12-21 Outpatient Shabazz, Na STLMLC STLMLC [id number] [facility] 14:12:46 [id number] [facility] 2021-12-21 Outpatient Shabazz, Na STLMLC STLMLC [id number] [facility] 13:36:34 [id number] [facility] 2021-12-21 Outpatient Shabazz, Na STLMLC STLMLC [id number] [facility] 13:35:25 [id number] [facility] 2021-12-21 Outpatient Shabazz, Na STLMLC STLMLC [id number] [facility] 13:20:19 [id number] [facility] 2021-12-21 Outpatient Shabazz, Na STLMLC STLMLC [id number] [facility] 13:19:52 [id number] [facility] 2021-12-21 Outpatient Shabazz, Na STLMLC STLMLC [id number] 12:41:36 [id number] [facility] 2021-12-21 Outpatient Shabazz, Na STLMLC STLMLC [id number] [facility] 12:26:03 [id number] [facility] 2021-12-21 Outpatient Shabazz, Na STLMLC STLMLC [id number] [facility] 12:18:00 [id number] [facility] 2021-12-21 Outpatient Shabazz, Na STLMLC STLMLC [id number] [facility] 11:54:00 [id number] [facility] 2021-12-21 Outpatient Shabazz, Na STLMLC STLMLC [id number] [facility] 11:53:41 [id number] [facility] 2021-12-21 Outpatient Shabazz, Na STLMLC STLMLC [id number] [facility] 11:53:09 [id number] [facility] 2021-12-21 Outpatient Shabazz, Na STLMLC STLMLC [id number] [facility] 11:35:33 [id number] [facility] 2021-12-21 Outpatient Shabazz, Na STLMLC STLMLC [id number] 11:20:32 [id number] [facility] 2021-12-21 Outpatient Shabazz, Na STLMLC STLMLC [id number] 11:18:09 [id number] [facility] 2022-03-16 2022-03-16 Outpatient R [facility] [id number] Univers 15:30:00 15:30:00 OPAL [id number] [facility] 2022-03-16 2022-03-16 Outpatient R [facility] [id number] Univers 15:30:00 15:30:00 OPAL [facility] 2021-12-14 2021-12-14 ambulatory STLMLC STLMLC [id number] [facility] 2021-11-24 2021-11-24 ambulatory STLMLC STLMLC [id number] [facility]00 [facility] 2021-11-23 2021-11-23 ambulatory [facility]LMLC [facility]MLC [id number] [facility]00 [facility] 2021-11-21 2021-11-21 ambulatory STLMLC STLMLC [id number] [facility]00 [facility] 2021-11-10 2021-11-10 ambulatory STLMLC STLMLC [id number] [facility] 2021-10-14 2021-10-14 ambulatory STLMLC STLMLC [id number] [facility]00 [facility] 2021-10-07 2021-10-07 ambulatory STLMLC STLMLC [id number] [facility]00 [facility] 2021-10-07 2021-10-07 ambulatory STLMLC STLMLC [id number] [facility] 2021-10-06 2021-10-06 ambulatory STLMLC STLMLC [id number] [facility] 2021-09-22 2021-09-22 Outpatient STLMLC [facility]C [id number] [facility] 2021-08-06 2021-08-07 Inpatient JADE HookCÉSAR [facility] [id number] [facility] 05:39:00 12:45:00 [place] [id number] [facility] 2021-08-02 2021-08-02 Outpatient STLMLC STLMLC [id number] [facility] 2021-07-11 2021-07-11 Outpatient STLMLC [facility]MLC [id number] [facility] 2021-07-05 2021-07-05 Outpatient STLMLC [facility]MLC [id number] [facility] 2021-06-08 2021-06-08 Outpatient STLMLC [facility]MLC [id number] [facility] 2021-05-25 2021-05-25 Outpatient STLMLC STLMLC [id number] [facility]00 [facility] 2021-05-17 2021-05-17 Outpatient STLMLC [facility]ML[facility] [id number] [facility] 2021-04-19 2021-04-19 Outpatient STLMLC STLMLC [id number] [facility]00 [facility] 2021-04-15 2021-04-15 Outpatient STLMLC STLMLC [id number] [facility]00 [facility] 2021-03-31 2021-03-31 Outpatient STLMLC STLMLC [id number] [facility]00 [facility] 2021-03-24 2021-03-24 Oyster Preparer 2, [facility] [id number] 13:35:27 13:50:27 [address] [place] [id number] [place] [id number] Professio [phone] [address] 2021-03-24 2021-03-24 Oyster Preparer 2, [facility] [id number] [facility] 13:35:27 13:50:27 Visit Opal Gardner [id number] [facility] [id number] Jovanni velarde Professio [phone] La dical [address] 2021-03-24 2021-03-24 Outpatient R [facility] [id number] Univers 13:15:00 13:15:00 [id number] ity [facility] 2021-03-24 2021-03-24 Outpatient R ADUM, [facility] [id number] Univers 13:15:00 13:15:00 OPAL ity [facility] 2021-03-11 2021-03-11 [facility] 1.2.840.114 [id number] 14:23:31 16:29:07 Visit Opal Barrera [id number] [place] [id number] Professio [phone] [address] 2021-03-11 2021-03-11 Office Ad, [facility] [id number] [id number] Univers 14:23:31 16:29:07 Visit Opal Barrera [id number] ity of [place] [id number] [phone] La dical [address] 2021-03-11 2021-03-11 [facility] [id number] Univers 14:30:00 14:30:00 OPAL [id number] ity [facility] 2021-03-11 2021-03-11 Outpatient R AD, [facility] [id number] Univers 14:30:00 14:30:00 OPAL [facility] 2021-03-11 2021-03-11 Orders Doctor AURELIA [id number] Univers 00:00:00 00:00:00 Only Unassigned, RENALDO [id number] ity of [place] [facility] [id number] Mitesh as [phone] [facility] 009 [place] 2021-03-10 2021-03-10 Telephone Kathy Lazo [id number] Univers 00:00:00 00:00:00 Ingaдмитрий Coronadoy [id number] it y [id number] [phone] [facility] 086 [place] 2021-02-25 2021-02-25 Outpatient STLMLC STLMLC [id number] [facility] 00:00:00 00:00:00 Radha ramos Outpati ent Clinics 2021-02-20 2021-02-20 Outpatient STLMLC STLMLC [id number] [facility] 2021-02-15 2021-02-15 Outpatient STLMLC STLMLC [id number] [facility]00 [facility] 2021-02-11 2021-02-11 Outpatient STLMLC STLMLC [id number] [facility]00 [facility] 2021-02-10 2021-02-10 Outpatient STLMLC STLMLC [id number] [facility]00 [facility] 2021-02-09 2021-02-09 Outpatient STLMLC STLMLC [id number] [facility]00 [facility] 2021-02-07 2021-02-07 Outpatient STLMLC STLMLC [id number] [facility]00 [facility] 2021-01-30 2021-01-30 Outpatient [facility] [id number] Univers 16:10:00 16:10:00 [facility] 2021-01-29 2021-01-29 Outpatient STLMLC STLMLC [id number] [facility] 2021-01-25 2021-01-25 Outpatient STLMLC STLMLC [id number] [facility] 2021-01-18 2021-01-18 Outpatient STLMLC STLMLC [id number] [facility]00 [facility] 2021-01-02 2021-01-02 Outpatient Alisha PETERSON, [facility] [id number] Univers 15:10:00 15:10:00 JESSICA [facility] 2020-12-07 2020-12-07 Outpatient STLMLC STLMLC [id number] [facility] 2020-11-04 2020-11-04 Outpatient STLMLC STLMLC [id number] [facility]00 [facility] 2020-11-03 2020-11-03 Outpatient STLMLC STLMLC [id number] [facility] 2020-09-27 2020-09-27 Outpatient STLMLC STLMLC [id number] [facility]00 [facility] 2020-09-06 2020-09-06 Outpatient STLMLC STLMLC [id number] [facility]00 [facility] 2020-07-06 2020-07-06 [facility] [id number] 11:42:00 11:42:00 [facility] Medicine l Medicine Outpati ent Clinics 2020-07-05 2020-07-05 [facility] [id number] 10:00:00 10:00:00 fl[employer]ur [employer] [facility] Medicine Outpati ent [facility] 2020-07-02 2020-07-02 [place] [id number] [facility] 00:00:00 00:00:00 [facility] [id number] ity [facility] [id number] [facility] [phone] [address] 2020-06-14 2020-06-14 [facility] [id number] 13:12:00 13:12:00 fl[employer]ur [employer] [facility] Medicine Outpati ent Clinics 2020-06-01 2020-06-01 [facility] [id number] Univers 12:30:00 23:59:00 Encounter Peng [facility] [id number] ity [facility] [id number] [facility] [phone] [facility] 804 [place] 2020-06-01 2020-06-01 Outpatient PENG GLEZ [facility] [id number] Univers 12:30:00 12:30:00 NEWTONPENG Rocha [id number] [facility] 2020-06-01 2020-06-01 Outpatient PENG SEXTON [facility] [id number] Univers 00:00:00 00:00:00 PENG GLEZ [facility] 2020-05-28 2020-05-28 Refill Newton [facility] [id number] Univers 00:00:00 00:00:00 Peng Lopez [facility] [id number] ity of [facility] [id number] Jovanni BYERS [phone] [facility] [place] 2020-05-27 2020-05-27 [facility] [id number] 15:57:00 15:57:[address] [employer] [facility] Outpati ent [facility] 2020-05-11 2020-05-11 Outpatient PENG SEXTON [facility] [id number] Univers 14:00:00 14:00:00 NEWTONPENG Rocha [id number] [facility] 2020-05-11 2020-05-11 Outpatient PENG SEXTON [facility] [id number] Univers 00:00:00 00:00:00 PENG GLEZ [facility] 2020-05-11 2020-05-11 Telephone Newton [facility] ..840.114 [id number] Univers 00:00:00 00:00:00 Peng Barrera [id number] ity [facility] [id number] Jovanni Bolaños [phone] La dicwy nal 2 [facility] 2020-05-04 2020-05-04 [facility] [id number] 13:46:00 13:46:00 [facility] [employer] [facility] Outpati ent [facility] 2020-04-29 2020-04-29 Telephone [place] [facility] ..840.114 [id number] [facility] 00:00:00 00:00:00 Peng Barrera [id number] it[place] of [place] [id number] [phone] La dical nal [address] [place] [address] 2020-04-23 2020-04-23 [facility] [id number] Univers 00:00:00 00:00:00 Peng Barrera [id number] ity [facility] [id number] [place] [phone] La dicwy nal [address] [place] [address] 2020-04-21 2020-04-21 [facility] [id number] 16:33:00 16:33:00 [facility] 2020-04-01 2020-04-01 [facility] [id number] 10:40:00 10:40:00 fl3ur [employer] [facility] Medicine [facility] 2020-03-08 2020-03-08 [facility] [id number] 16:19:00 16:19:00 fl3ur [employer] [facility] 2020-03-01 2020-03-01 [facility] [id number] 14:28:00 14:28:00 [facility] [employer] [facility] 2020-02-20 2020-02-20 Telemedici [facility] [id number] [facility] 08:21:37 15:48:50 ne Visit Peng Barrera [id number] ity [facility] [id number] Profess[place] [phone] [place] dicwy nal [address] [place] [address] 2020-02-20 2020-02-20 Outpatient PENG SEXTON [facility] [id number] Univers 08:40:00 08:40:00 PENG GLEZ [id number] ity [facility] 2020-02-20 2020-02-20 Outpatient PENG SEXTON [facility] [id number] Univers 08:40:00 08:40:00 NEWTONPENG Rocha ity of [facility] 2020-01-28 2020-01-28 [facility] [id number] 16:24:00 16:24:00 t [employer] [facility] Family Medicine l Medicine Outpati ent Clinics 2020-01-13 2020-01-13 Orders Doctor MOSES [id number] Univers 00:00:00 00:00:00 Only Unassigned, RENALDO [id number] ity of [place] [facility] [id number] Mitesh as [phone] [address] 2020-01-07 2020-01-07 [facility] [id number] 11:21:00 11:21:00 t Bethany [employer] [facility] Medicine Medicine Outpati ent Clinics 2020-01-05 2020-01-05 [facility] [id number] 14:40:00 14:40:00 t Bethany [employer] [facility] Medicine l Medicine Outpati ent Clinics 2019-12-19 2019-12-19 [facility] [id number] 11:20:00 11:20:00 t [employer] [facility] Family Medicine l Medicine Outpati ent Clinics 2019-11-17 2019-11-17 [facility] [id number] 10:40:00 10:40:00 t Bethany [employer] [facility] Medicine l Medicine Outpati ent Clinics 2019-11-12 2019-11-12 [facility] [id number] 15:22:00 15:22:00 t Bethany [employer] [facility] l Medicine Outpati ent Clinics 2019-10-13 2019-10-13 [facility] [id number] 08:38:00 08:38:00 t [employer] [facility] l Medicine Outpati ent Clinics 2019-09-25 2019-09-25 [facility] [id number] 09:55:00 09:55:[address] Luke s - Drive [facility] 2019-09-12 2019-09-12 [facility] [id number] 10:00:00 10:00:[address] Luke s - Drive [facility] 2019-08-21 2019-08-21 [facility] [id number] 14:20:00 14:20:[address] Luke s - Drive [facility] Outpati ent Clinics 2019-08-14 2019-08-14 [facility] [id number] 09:45:00 09:45:00 t Specialty/U Melba kes - Specialty rology Memori a /Urology Clinic l [facility] 2019-07-23 2019-07-23 [facility] [id number] 09:30:00 09:30:00 t Specialty/U Melba kes - Specialty rology Memori a /Urology Clinic l Clinic [facility] 2019-07-21 2019-07-21 Orders Doctor AURELIA [id number] [id number] Univers 00:00:00 00:00:00 Only Unassigned, RENALDO [id number] ity of [place] [facility] [id number] Mitesh as [phone] [address] 2019-07-18 2019-07-18 Outpatient Kofi Kirbyt [id number] 13:20:00 13:20:00 t Bethany [employer] - [facility] Clin[facility] 2019-07-09 2019-07-09 Telephone Nguyễn [facility] [id number] [id number] [facility] 00:00:00 00:00:00 [facility] [id number] it y of Surgical [id number] Mitesh as Specialti [phone] [facility] 198 [facility] 2019-06-20 2019-06-20 Orders Doctor AURELIA [id number] [id number] Univers 00:00:00 00:00:00 Only Unassigned, RENALDO [id number] [facility] [id number] Mitesh as [phone] [place] [address] Branch 2019-05-21 2019-05-21 [facility] [id number] 13:45:00 13:45:00 t Specialty/U Melba kes - Specialty rology Memori a /Urology Clinic l Clinic Outpati ent Clinics 2019-05-16 2019-05-16 [facility] [id number] 11:30:00 11:30:00 t Specialty/U Melba kes - Specialty rology Memori [facility]Urology Clinic l Clinic Outpati ent Clinics 2019-05-13 2019-05-13 [facility] [id number] [facility] 10:40:00 10:40:00 t [facility] Outpati ent Clinics 2019-05-08 2019-05-08 [facility] [id number] [facility] 11:30:00 11:30:00 t Specialty/U [facility] kes - Specialty rology Memori a /Urology Clinic l Clinic Outpati ent Clinics 2019-04-11 2019-04-11 Orders Doctor MOSES [id number] [facility] 00:00:00 00:00:00 Only Unassigned, RENALDO [id number] ity of [id number] Mitesh as [phone] [place] [address] [address] 2019-03-13 2019-03-13 [facility] [id number] [facility] 10:40:00 10:40:00 t [facility] Outpati ent Clinics 2019-02-19 2019-02-19 [facility] [id number] [facility] 11:30:00 11:30:00 t Specialty/U Melba kes - Specialty rology [facility]Urology Clinic l Clinic Outpati ent Clinics 2019-02-14 2019-02-14 [facility] [id number] [facility] 11:15:00 11:15:00 t Specialty/U Melba kes - Specialty rology Memori [facility] /Urology Clinic l Clinic Outpati ent Clinics 2019-02-05 2019-02-05 [facility] [id number] [address] 09:30:00 09:30:00 t Bethany Mythos Luke s - Drive [facility] Family Medicine l Medicine Outpati ent Clinics 2019-01-17 2019-01-17 [facility] [id number] [facility] 11:00:00 11:00:00 t Specialty/U Melba kes - Specialty rology Memori a /Urology Clinic l Clinic Outpati ent Clinics 2019-01-13 2019-01-13 [facility] [id number] [address] 08:30:00 08:30:00 t Specialty/U Melba kes - Specialty rology Memori a /Urology Clinic l Clinic Outpati ent Clinics 2018-12-24 2018-12-24 [facility] [id number] [address] 07:58:00 07:58:00 t Specialty/U Melba kes - Specialty rology Memori a /Urology Clinic l Clinic Outpati ent Clinics 2018-12-17 2018-12-17 [facility] [id number] 10:15:00 10:15:00 t Specialty/U Melba kes - Specialty rology Memori a /Urology Clinic l Clinic Outpati ent Clinics 2018-12-13 2018-12-13 [facility] [id number] 09:35:00 09:35:00 t Bethany Brain Parade s - Drive [facility] Medicine l Medicine Outpati ent Clinics 2018-12-11 2018-12-11 [facility] [id number] 10:30:00 10:30:00 t Bethany [place] s - Drive [facility] Family Medicine l Medicine Outpati ent Clinics 2018-08-22 2018-08-22 [facility] [id number] 08:12:00 08:12:00 t Bethany [place] s - Drive [facility] Family Medicine l Medicine Outpati ent Clinics 2018-08-20 2018-08-20 [facility] [id number] 09:15:00 09:15:00 t Bethany [place] s - Drive [facility] l Medicine Outpati ent Clinics 2018-08-05 2018-08-05 [facility] [id number] 14:15:00 14:15:00 t [facility] Medicine Outpati ent Clinics 2015-02-17 2015-02-17 Orders Doctor AURELIA [id number] Univers 00:00:00 00:00:00 Only Unassigned, RENALDO 350.1.13.10 ity of [facility] 4.2.7.2.686 Mitesh as [phone] [place] [address] [address] 2014-08-19 2014-08-19 Orders Doctor AURELIA [id number] [facility] 00:00:00 00:00:00 Only Unassigned, RENALDO 350.1.13.10 ity of [facility] 4.2.7.2.686 Mitesh as [phone] [place] [address] [address] 2014-07-28 2014-07-28 Orders Doctor AURELIA Jones2.840.114 [id number] [facility] 00:00:00 00:00:00 Only Unassigned, RENALDO 350.1.13.10 ity of [facility] 4.2.7.2.686 Mitesh as [phone] [place] [address] [address] 2014-06-18 2014-06-18 Orders Doctor MOSES [id number] [id number] [facility] 00:00:00 00:00:00 Only Unassigned, RENALDO 350.1.13.10 ity of [facility] 4.2.7.2.686 Mitesh as [phone] [address] 2013-05-09 2013-05-09 Orders Doctor MOSES [id number] [id number] [facility] 00:00:00 00:00:00 Only Unassigned, RENALDO 350.1.13.10 ity of [facility] 4.2.7.2.686 Mitesh as [phone] [place] [address] [address] 2012-09-30 2012-09-30 Orders Doctor AURELIA Jones2.840.114 [id number] [facility] 00:00:00 00:00:00 Only Unassigned, RENALDO 350.1.13.10 ity of [facility] 4.2.7.2.686 Mitesh as [phone] [place] [address] [address] 2012-08-13 2012-08-13 Orders Doctor AURELIA Jones2.840.114 [id number] [facility] 00:00:00 00:00:00 Only Unassigned, RENALDO 350.1.13.10 ity of [facility] 4.2.7.2.686 Mitesh as [phone] [address] 2012-02-29 2012-02-29 Orders Doctor AURELIA Kerr.[id number] Univers 00:00:00 00:00:00 Only Unassigned, RENALDO 350.1.13.10 ity of [facility] 4.2.7.2.686 Mitesh as [phone] [address] Results Test Description Test Time Test Comments Results Result Comments Source GLUCOSE BEDSIDE TESTING 2021-08-07 08:33:00 Test Item Value Reference Range Interpretation Comme nts GLUCOSE BEDSIDE TESTING (test code = GLUBED) 72 MG/DL 60-99 N - XR CHEST [id number] 06:52:00 [facility] 1965 Sex: F Patient Name: SUSIE WHITTAKER Unit No: [id number] EXAMS: CPT CODE: [id number] XR CHEST 1V 61198 EXAM: CHEST ONE VIEW INDICATION: S/P ICD [...] 16 Orig Print D/T: S: 08/07/2021 (0655) [facility] NAME: SUSIE WHITTAKER [address] [address] PHYS: [place] [address] : 1965 AGE: 55 SEX: F LOC: Z.363 A PHONE #: [phone] EXAM DATE: 08/07/2021 STATUS: ADM IN FAX #: [phone] RADIOLOGY NO: PAGE 1 Signed ReportBASIC METABOLIC [id number] 06:15:00 Test Item Value Reference Range Interpretation [...] 8.9 MG/DL 8.4-10.2 N CA) CBC W/AUTO [id number] 05:40:00 Test Item Value Reference Range Interpretation [...] 0.00 K/mm3 0.0-0.1 N NRBC#) GLUCOSE BEDSIDE [id number] 20:22:00 Test Item Value Reference Range Interpretation Comments GLUCOSE BEDSIDE TESTING (test code = 92 MG/DL 60-99 N GLUBED) - XR CHEST [id number] 12:24:00 [facility] : 1965 Sex: F Patient Name: SUSIE WHITTAKER Unit No: [id number] EXAMS: CPT CODE: [id number] XR CHEST 1V 10012 CLINICAL HISTORY: S/P ICD. LOCATION: A1 FINDINGS: [...] Carmine Alfaro (RT) Transcrpt Date/Tm/Trnsp: 08/06/2021 (1224) [id number] Orig Print D/T: S: 08/06/2021 (9675) [facility] NAME: SUSIE WHITTAKER [address] [address] PHYS: [place] [address] :1965 AGE: 55 SEX: F LOC: LOUANN 1 PHONE #: [phone] EXAM DATE: 08/06/2021 STATUS: ADM IN FAX #: [phone] RADIOLOGY NO: PAGE 1 Signed Report BASIC METABOLIC [id number] 09:16:00 Test Item Value Reference Range Interpretation [...] 9.3 MG/DL 8.4-10.2 N CA) Comments to Security Associate: NURSE WILL BRING SPECIMEN TO LABIs this [...] VERY HIGH...... ...>/= 190 mg/dL Comments to Security Associate: NURSE WILL BRING SPECIMEN TO LABIs this a LINE draw? N [id number] 09:16:00 Test Item Value Reference Range Interpretation Comments MAGNESIUM (test code = MAG) 1.8 MG/DL 1.6-2.3 N Comments to Security Associate: NURSE WILL BRING SPECIMEN TO LABIs this a LINE draw? N BASIC METABOLIC [id number] 09:05:00 Test Item Value Reference Range Interpretation [...] 9.3 MG/DL 8.4-10.2 N CA) Comments to Security Associate: NURSE WILL BRING SPECIMEN TO LABIs this [...] MG/DL 0-99 code = LDL) Comments to Security Associate: NURSE WILL BRING SPECIMEN TO LABIs this a LINE draw? N [id number] 09:05:00 Test Item Value Reference Range Interpretation Comments MAGNESIUM (test code = MAG) 1.8 MG/DL 1.6-2.3 N Comments to Security Associate: NURSE WILL BRING SPECIMEN TO LABIs this a LINE draw? N PROTHROMBIN [id number] 09:01:00 Test Item Value Reference Range Interpretation [...] jesus embolism. 3.0 - 4.5 Comments to Security Associate: NURSE WILL BRING SPECIMEN TO LABPTT ACTIVATED 2021-08-06 09:01:00 Test Item Value Reference Range Interpretation Comments PTT ACTIVATED (test code = APTT) 31.5 SECONDS 25.1-36.5 N Comments to Security Associate: NURSE WILL BRING SPECIMEN TO [facility] W/AUTO [...] 0.00 K/mm3 0.0-0.1 N NRBC#) Comments to Security Associate: NURSE WILL BRING SPECIMEN TO LABCOVID 19 Asymptomatic IH [id number] 05:59:00 Test Item Value Reference Range Interpretation [...] in the sample." MR BRAIN W WO [id number] 20:31:24 No acute intracranial abnormality. Trigeminal nerves [...] of MultiHance wasadministered intravenously. FINDINGS: The large zikhr-fb-mqkh and suboptimal imaging was essential limits theunderlying [...] 20 ml of MultiHance wasadministered intravenously.FINDINGS:The large rbpmk-pl-eqoq and suboptimal imaging was essential limits theunderlying [...] reviewed this study and agree with the abovereport.[facility]
[2022-01-02] MEDS ORDERED: LORazepam 2 MG/ML VIAL ONE (18:36)
[2022-01-02] MEDS ORDERED: KETOROLAC 30 MG/ML INJ ONE (18:36)
[2022-01-02 18:43] LABS: Urine Blood Trace-intact (Negative); Urine Glucose Negative (Negative); Urine Protein Negative (Negative)
[2022-01-02 19:16] LABS: Absolute Lymphocytes (CBC) 1.4 K/uL (0.7-4.9); Hematocrit 46.1 % (36.0-45.0); Lymphocytes % 22.8 % (15.3-44.8); MPV 9.9 fL (7.6-11.3); RBC Red Blood Cell Count 5.16 M/uL (3.86-4.86)
[2022-01-02 19:23] LABS: Urine Bacteria <20 /HPF (<20); Urine RBC NONE SEEN /HPF (NONE SEEN)
[2022-01-02 20:10] LABS: Albumin 3.9 g/dL (3.4-5.0); Bilirubin Direct 0.2 mg/dL (0-0.2); Bilirubin Total 0.7 mg/dL (0.2-1.0); Potassium 3.9 mmol/L (3.5-5.1); Protein, Total 7.6 g/dL (6.4-8.2)
--- NOTE | 2022-01-02 21:47 | RAD REPORT ---
EXAM DESCRIPTION: CT - Angio Aorta For Dissection - 01/02/2022 9:40 pm CLINICAL HISTORY: . Chest and abd pain/right flank pain COMPARISON: April 2021 TECHNIQUE: Computed tomography angiography of the chest, abdomen pelvis were obtained. 100 cc Isovue 370 was administered intravenously. Coronal and sagittal reconstruction were performed. MIP 3D reconstruction was performed All CT scans are performed using dose optimization technique as appropriate and may include automated exposure control or mA/KV adjustment according to patient size. FINDINGS: An aortic dissection is not seen. An aortic aneurysm is not displayed. The celiac, SMA and LINDSEY are patent . A lung consolidation is not present. A pericardial effusion is not seen. A pleural effusion is not no carlos. Fatty liver. Spleen, adrenals, pancreas and kidneys unremarkable The appendix is normal. There no evidence diverticulitis. Cholecystectomy. Hysterectomy IMPRESSION: Negative for an aortic dissection.
[2022-01-02] MEDS ORDERED: LIDOCAINE 4% PATCH ONE (22:20)
--- NOTE | 2022-01-02 22:21 | ER ---
Nurse's Notes [facility] Name: Madhavi Michael Age: 56 yrs Sex: Female : 1965 Arrival Date: 01/02/2022 Time: 17:20 Bed 20 Private MD: Diagnosis: Dorsalgia, unspecified Presentation: 01/02 17:44 Chief complaint: Patient states: Went to PCP for Right flank pain, they sent to ER for jl7 hypotension 77 systolic, they ran my urine and it was clean. Coronavirus screen: At this time, the client does not indicate any symptoms associated with coronavirus-19. Ebola Screen: No symptoms or risks identified at this time. Initial Sepsis Screen: Does the patient meet any 2 criteria? No. Patient's initial sepsis screen is negative. Does the patient have a suspected source of infection? No. Patient's initial sepsis screen is negative. Risk Assessment: Do you want to hurt yourself or someone else? Patient reports no desire to harm self or others. Onset of symptoms was January 01, 2022. 17:44 Method Of Arrival: Ambulatory jl7 17:44 Acuity: SISSY 3 jl7 Triage Assessment: 17:45 General: Appears in no apparent distress. uncomfortable, Behavior is calm, cooperative, jl7 appropriate for age. Pain: Complains of pain in right flank. Historical: - Allergies: 17:45 No Known Allergies; jl7 - PMHx: 17:45 Asthma; Atrial Fib; COPD; CVA; Diabetes - NIDDM; Leaking Veins x2 Right Leg; jl7 neuropathy; sciatica; Sleep Apnea; - Immunization history:: Client reports receiving the 2nd dose of the Covid vaccine. - Social history:: Smoking status: Patient reports the use of cigarette tobacco products, smokes one-half pack cigarettes per day. Screenin:45 Abuse screen: Denies threats or abuse. Denies injuries from another. Nutritional eo2 screening: No deficits noted. Tuberculosis screening: No symptoms or risk factors identified. Fall Risk None identified. Assessment: 18:42 General: Appears in no apparent distress. comfortable, Behavior is calm, cooperative. eo2 Pain: Complains of pain in back and right flank. Neuro: Level of Consciousness is awake, alert, obeys commands, Oriented to person, place, time, situation, Denies paresthesias numbness. Cardiovascular: Reports shortness of breath, Denies chest pain, Heart tones S1 S2 Capillary refill < 3 seconds. Respiratory: Reports shortness of breath hx of COPD, Airway is patent Breath sounds are clear bilaterally. GI: No deficits noted. No signs and/or symptoms were reported involving the gastrointestinal system. Patient currently denies diarrhea, nausea, vomiting. Musculoskeletal: Reports pain in back and right flank onset yesterday, denies numbness/tingling to b/l LE. 20:35 Reassessment: Patient appears in no apparent distress at this time. Patient and/or lg3 family updated on plan of care and expected duration. Pain level reassessed. Patient is alert, oriented x 3, equal unlabored respirations, skin warm/dry/pink. Pain: Complains of pain in back and right flank Pain currently is 3 out of 10 on a pain scale. 22:40 Reassessment: Patient appears in no apparent distress at this time. No changes from 3 previously documented assessment. Patient and/or family updated on plan of care and expected duration. Pain level reassessed. Patient is alert, oriented x 3, equal unlabored respirations, skin warm/dry/pink. Vital Signs: 17:44 BP 124 / 80; Pulse 67; Resp 17; Temp 98.7; Pulse Ox 100% ; Weight 142.88 kg; Height 5 jl7 ft. 7 in. (170.18 cm); Pain 10/10; 18:44 BP 105 / 64 RA; Pulse 57; Resp 17; Pulse Ox 99% ; eo2 18:45 BP 105 / 65 LA; Pulse 55; Resp 17; Pulse Ox 100% ; Pain 10/10; eo2 20:38 BP 166 / 66; Pulse 61; Resp 18; Pulse Ox 100% on R/A; lg3 22:40 BP 111 / 73; Pulse 55; Resp 18 S; Pulse Ox 100% on R/A; lg3 17:44 Body Mass Index 49.34 (142.88 kg, 170.18 cm) jl7 ED Course: 17:20 Patient arrived in ED. ds1 17:45 Triage completed. jl7 17:45 Arm band placed on right wrist. jl7 17:50 Marcin Varela PA is PHCP. cp 17:50 Aman Sanchez MD is Attending Physician. cp 17:56 Maya Husain, RN is Primary Nurse. eo2 18:35 Urine Microscopic Only Sent. jl7 18:44 Urine collected: clean catch specimen, clear. mh5 18:45 Patient has correct armband on for positive identification. Pulse ox on. NIBP on. Door eo2 closed. Noise minimized. 18:45 No provider procedures requiring assistance completed. eo2 18:52 Inserted saline lock: 22 gauge in right upper arm, using aseptic technique. eo2 19:05 Urine Microscopic Only Sent. eo2 19:05 Basic Metabolic Panel Sent. eo2 19:05 CBC with Diff Sent. eo2 19:05 Hepatic Function Sent. eo2 19:05 Lipase Sent. eo2 19:36 Report given to Shanelle CROOKS. eo2 20:30 Shanelle Tuttle, RN is Primary Nurse. lg3 21:40 CT Aorta for Dissection In Process Unspecified. EDMS 22:40 IV discontinued, intact, bleeding controlled, No redness/swelling at site. Pressure lg3 dressing applied. Administered Medications: 18:53 Drug: Ketorolac 15 mg Route: IVP; Site: right upper arm; eo2 20:31 Follow up: Response: No adverse reaction lg3 18:54 Drug: Ativan (LORazepam) 1 mg Route: IVP; Site: right upper arm; eo2 20:31 Follow up: Response: No adverse reaction lg3 22:21 Drug: Lidoderm Patch 5 % (700 mg/patch) 1 patches Route: Topical; Site: affected area; lg3 22:21 Follow up: Response: No adverse reaction lg3 Outcome: 22:19 Discharge ordered by . tami 22:40 Discharged to home via wheelchair. lg3 22:40 Condition: good 22:40 Discharge instructions given to patient, Instructed on discharge instructions, medication usage, Prescriptions given X 3. 22:42 Patient left the ED. lg3 Signatures: Dispatcher [employer] EDNH Brittany Jenkins 1 Marcin Varela PA PA cp Martinez, Maria 5 Bruce Frankel RN RN jl7 Shanelle Tuttle, DAKSHA RN lg3 Maya Husain, DAKSHA RN eo2
--- NOTE | 2022-01-02 22:21 | EDPHYS ---
Physician Documentation [facility] Name: Madhavi Michael Age: 56 yrs Sex: Female : 1965 Arrival Date: 01/02/2022 Time: 17:20 Bed 20 Private MD: ED Physician Aman Sanchez HPI: 01/02 18:05 This 56 yrs old Black Female presents to ER via Ambulatory with complaints of Right cp Flank Pain. 18:05 The patient complains of pain in the right flank. The pain radiates to the back and cp abdomen. 18:05 Onset: The symptoms/episode began/occurred yesterday. cp 18:05 Modifying factors: the symptoms are aggravated by movement, palpation/percussion. cp Associated signs and symptoms: Pertinent negatives: diarrhea, dysuria, fever, headache, pain radiating to the lower extremities, vomiting. Severity of pain: in the emergency department the pain is unchanged despite home interventions. The patient has been recently seen by a physician: the patient's primary care provider, with similar presenting complaints, and was sent to the [facility] Emergency Department for further evaluation, due to low blood pressure. Historical: - Allergies: 17:45 No Known Allergies; jl7 - PMHx: 17:45 Asthma; Atrial Fib; COPD; CVA; Diabetes - NIDDM; Leaking Veins x2 Right Leg; jl7 neuropathy; sciatica; Sleep Apnea; - Immunization history:: Client reports receiving the 2nd dose of the Covid vaccine. - Social history:: Smoking status: Patient reports the use of cigarette tobacco products, smokes one-half pack cigarettes per day. ROS: 18:10 Constitutional: Negative for body aches, chills, fever, poor PO intake. cp 18:10 Eyes: Negative for injury, pain, redness, and discharge. cp 18:10 Cardiovascular: Negative for chest pain, palpitations. 18:10 Respiratory: Negative for cough, shortness of breath, wheezing. 18:10 Abdomen/GI: Negative for vomiting, diarrhea, constipation. 18:10 Back: Positive for flank pain, on the right. 18:10 : Negative for urinary symptoms. 18:10 Skin: Negative for rash. 18:10 Neuro: Negative for altered mental status, headache, weakness. 18:10 All other systems are negative. Exam: 18:15 Constitutional: The patient appears in no acute distress, alert, awake, cp non-diaphoretic, non-toxic, well developed, well nourished, obese, uncomfortable. 18:15 Head/Face: Normocephalic, atraumatic. cp 18:15 Eyes: Periorbital structures: appear normal, Conjunctiva: normal, no exudate, no injection, Sclera: no appreciated abnormality, Lids and lashes: appear normal, bilaterally. 18:15 ENT: External ear(s): are unremarkable, Nose: is normal, Mouth: Lips: moist, Oral mucosa: moist, Posterior pharynx: Airway: no evidence of obstruction, patent. 18:15 Neck: ROM/movement: is normal, is supple, without pain, no range of motions limitations. 18:15 Chest/axilla: Inspection: normal, Palpation: crepitus, is not appreciated, tenderness, that is moderate, of the right lower lateral and posterior rib area, that partially reproduces the patient's complaints. 18:15 Cardiovascular: Rate: bradycardic, Edema: is not appreciated, JVD: is not appreciated. 18:15 Respiratory: the patient does not display signs of respiratory distress, Respirations: normal, no use of accessory muscles, no retractions, labored breathing, is not present, Breath sounds: are clear throughout, no decreased breath sounds, no stridor, no wheezing. 18:15 Abdomen/GI: Inspection: obese Bowel sounds: active, all quadrants, Palpation: abdomen is soft and non-tender, in all quadrants. 18:15 Back: vertebral tenderness, is not appreciated. 18:15 Skin: cellulitis, is not appreciated, no rash present. 18:15 Neuro: Orientation: to person, place \T\ time. Mentation: is normal, Motor: moves all fours, strength is normal, Sensation: is normal. Vital Signs: 17:44 BP 124 / 80; Pulse 67; Resp 17; Temp 98.7; Pulse Ox 100% ; Weight 142.88 kg; Height 5 jl7 ft. 7 in. (170.18 cm); Pain 10/10; 18:44 BP 105 / 64 RA; Pulse 57; Resp 17; Pulse Ox 99% ; eo2 18:45 BP 105 / 65 LA; Pulse 55; Resp 17; Pulse Ox 100% ; Pain 10/10; eo2 20:38 BP 166 / 66; Pulse 61; Resp 18; Pulse Ox 100% on R/A; lg3 22:40 BP 111 / 73; Pulse 55; Resp 18 S; Pulse Ox 100% on R/A; lg3 17:44 Body Mass Index 49.34 (142.88 kg, 170.18 cm) jl7 MDM: 17:53 Patient medically screened. cp 19:00 Differential diagnosis: nephrolithiasis, pyelonephritis, UTI, pancreatitis, ruptured cp AAA, dissecting AAA. 22:18 Data reviewed: vital signs, nurses notes, lab test result(s), radiologic studies, CT cp scan. 22:18 Counseling: I had a detailed discussion with the patient and/or guardian regarding: the cp historical points, exam findings, and any diagnostic results supporting the discharge/admit diagnosis, lab results, radiology results, to return to the emergency department if symptoms worsen or persist or if there are any questions or concerns that arise at home. Response to treatment: the patient's symptoms have markedly improved after treatment, VSS. Pain markedly improved with meds. CT negative for acute findings. Review of [place] prescription monitor program website shows patient receives prescribed narcotics. Will discharge to home for continued monitoring. 01/02 18:01 Order name: Basic Metabolic Panel; Complete Time: 20:27 cp 01/02 20:28 Interpretation: Normal except: CRE 1.40; GFR 47. cp 01/02 18:01 Order name: CBC with Diff; Complete Time: 20:27 cp 01/02 20:28 Interpretation: Normal except: RBC 5.16; HCT 46.1; MCHC 31.8; PLT 106. cp 01/02 18:01 Order name: Hepatic Function; Complete Time: 20:27 cp 01/02 18:01 Order name: Lipase; Complete Time: 20:27 cp 02 18:01 Order name: Urine Microscopic Only; Complete Time: 20:27 cp 02 18:42 Order name: Urine Dipstick-Ancillary; Complete Time: 18:47 EDMS 02 20:28 Interpretation: Normal except: UBLD Trace-intact. cp 01/02 18:01 Order name: IV Saline Lock; Complete Time: 19:05 cp 01/02 18:01 Order name: Labs collected and sent; Complete Time: 19:05 cp 01/02 18:01 Order name: Urine Dipstick-Ancillary (obtain specimen); Complete Time: 18:35 cp 01/02 18:49 Order name: CT Aorta for Dissection; Complete Time: 21:53 cp 01/02 20:14 Order name: Urine Culture [facility] 01/02 18:11 Order name: Blood Pressure Recheck: bilateral upper extremity; Complete Time: 19:04 cp Administered Medications: 18:53 Drug: Ketorolac 15 mg Route: IVP; Site: right upper arm; eo2 20:31 Follow up: Response: No adverse reaction lg3 18:54 Drug: Ativan (LORazepam) 1 mg Route: IVP; Site: right upper arm; eo2 20:31 Follow up: Response: No adverse reaction lg3 22:21 Drug: Lidoderm Patch 5 % (700 mg/patch) 1 patches Route: Topical; Site: affected area; lg3 22:21 Follow up: Response: No adverse reaction lg3 Disposition: 01/03 07:58 Co-signature as Attending Physician, Aman Sanchez MD I agree with the assessment and kdr plan of care. Disposition Summary: 01/02/22 22:19 Discharge Ordered Location: Home cp Problem: new cp Symptoms: have improved cp Condition: Stable cp Diagnosis - Dorsalgia, unspecified cp Followup: cp - With: Private Physician - When: 2 - 3 days - Reason: Worsening of condition Discharge Instructions: - Discharge Summary Sheet cp - Acute Back Pain, Adult cp Forms: - Medication Reconciliation Form cp - Thank You Letter cp - Antibiotic Education cp - Prescription Opioid Use cp Prescriptions: - Lidoderm 5 % Topical adhesive patch,medicated - apply 1 patch by TOPICAL route once daily; 1 box; Refills: 0, Product Selection cp Permitted - Cyclobenzaprine 10 mg Oral Tablet - take 1 tablet by ORAL route every 8 hours As needed; 20 tablet; Refills: 0, cp Product Selection Permitted - Diclofenac Sodium 75 mg Oral Tablet Sustained Release - take 1 tablet by ORAL route 2 times per day; 30 tablet; Refills: 0, Product cp Selection Permitted Signatures: Dispatcher [employer] Aman Alford MD MD kdr Marcin Varela PA PA cp Bruce Frankel RN RN jl7 Shanelle Tuttle RN RN lg3 Maya Husain RN RN eo2
[2022-01-02 23:26] VITALS: TEMP 98.7
[2022-01-02 23:29] VITALS: O2SAT 100
[2022-01-02 23:31] VITALS: BP 111/73
== END 2022-01-02 22:42 | disposition home or self-care (01) ==
LOC: ER 17:07
DX: M54.9 Dorsalgia, unspecified (principal); F17.210 Nicotine dependence, cigarettes, uncomplicated
CPT/HCPCS: 87088; 85025; 87086; 80048; 36415; 80076; 83690; 71275; 74175; 96375; 96374; 99284; Q9967; 81003; 81015

== ENCOUNTER 2022-06-13 10:49 | Emergency (ER) | payer OTHER ==
--- NOTE | 2022-06-13 12:16 | RAD REPORT ---
EXAM DESCRIPTION: RAD - Foot Left 3 View - 06/13/2022 12:01 pm CLINICAL HISTORY: Left Foot pain status post injury FINDINGS: A 3 millimeter bony density lies adjacent to base of the fourth middle phalanx consistent with an avulsion fracture. The fracture extends intraarticularly. No dislocation. Oblique lucency within the base of the fifth metatarsal probably overlapping of normal structures rat her than a nondisplaced fracture. This should be correlated clinically.
--- NOTE | 2022-06-13 12:58 | EDPHYS ---
Physician Documentation [facility] Name: Madhavi Michael Age: 56 yrs Sex: Female : 1965 Arrival Date: 06/13/2022 Time: 11:00 Bed Waiting Private MD: Halle Shabazz ED Physician Gerhard Moseley HPI: 06/13 11:35 This 56 yrs old Black Female presents to ER via Wheelchair with complaints of Toe ms3 Injury. 11:35 The patient presents with a laceration, 1 cm(s). The complaints affect the left foot. ms3 Context: The problem was sustained at home, resulted from the patient stepping on couch. Onset: The symptoms/episode began/occurred yesterday. Modifying factors: The symptoms are alleviated by nothing, the symptoms are aggravated by nothing. Associated signs and symptoms: The patient has no apparent associated signs or symptoms. Severity of symptoms: in the emergency department the symptoms a " 9" out of "10". Historical: - Allergies: 11:34 No Known Allergies; jl7 - PMHx: 11:34 Asthma; Atrial Fib; COPD; CVA; Diabetes - NIDDM; Leaking Veins x2 Right Leg; jl7 neuropathy; sciatica; Sleep Apnea; - Immunization history:: Client reports receiving the 2nd dose of the Covid vaccine. - Social history:: Smoking status: Patient reports the use of cigarette tobacco products, smokes one pack cigarettes per day. ROS: 11:35 MS/extremity: Positive for laceration swelling, tenderness, of the Plantar surface left ms3 4th toe. 11:35 Constitutional: Negative for fever, and chills. Cardiovascular: Negative for chest pain, and palpitations. Respiratory: Negative for shortness of breath, cough, wheezing, and pleuritic chest pain, Abdomen/GI: Negative for abdominal pain, nausea, vomiting, diarrhea, and constipation. 11:35 All other systems are negative. Exam: 11:35 Constitutional: This is a well developed, well nourished patient who is awake, alert, ms3 and in no acute distress. Head/Face: Normocephalic, atraumatic. Chest/axilla: Normal chest wall appearance and motion. Nontender with no deformity. Cardiovascular: Regular rate and rhythm with a normal S1 and S2. No gallops, murmurs, or rubs. Normal PMI, no JVD. No pulse deficits. Respiratory: Lungs have equal breath sounds bilaterally, clear to auscultation and percussion. No rales, rhonchi or wheezes noted. No increased work of breathing, no retractions or nasal flaring. Abdomen/GI: Soft, non-tender, with normal bowel sounds. No distension or tympany. No guarding or rebound. No evidence of tenderness throughout. 11:35 Skin: Plantar surface L 4th toe with 1 cm laceration, TTP, mild swelling. Vital Signs: 11:33 BP 136 / 92; Pulse 79; Resp 17; Temp 97.9; Pulse Ox 99% ; Weight 142.43 kg; Height 5 jl7 ft. 7 in. (170.18 cm); Pain 10/10; 11:33 Body Mass Index 49.18 (142.43 kg, 170.18 cm) jl7 MDM: 12:53 ED course: Discussed case with Dr Lowe. Would like patient on Bactrim/ Clindamycin and ms3 will see patient in his clinic.. 12:57 Patient medically screened. ms3 12:57 Differential diagnosis: fracture, sprain, laceration. Data reviewed: vital signs, ms3 nurses notes, radiologic studies, and as a result, I will discharge patient. Counseling: I had a detailed discussion with the patient and/or guardian regarding: the historical points, exam findings, and any diagnostic results supporting the discharge/admit diagnosis, radiology results, the need for outpatient follow up, to return to the emergency department if symptoms worsen or persist or if there are any questions or concerns that arise at home. 06/13 11:34 Order name: Foot Left 3 View XRAY; Complete Time: 12:32 ms3 Administered Medications: No medications were administered Disposition Summary: 06/13/22 12:57 Discharge Ordered Location: Home ms3 Condition: Stable ms3 Diagnosis - Fracture of fourth metatarsal bone ms3 - Laceration without foreign body, left foot ms3 Followup: ms3 - With: Halle Shabazz MD - When: 2 - 3 days - Reason: Re-evaluation by your physician Discharge Instructions: - Discharge Summary Sheet ms3 - Metatarsal Fracture ms3 Forms: - Medication Reconciliation Form ms3 - Thank You Letter ms3 - Antibiotic Education ms3 - Prescription Opioid Use ms3 Prescriptions: - Clindamycin HCl 300 mg Oral Capsule - take 1 capsule by ORAL route every 8 hours for 10 days; 30 capsule; Refills: 0, ms3 Product Selection Permitted - Bactrim DS 800-160 mg Oral Tablet - take 1 tablet by ORAL route every 12 hours for 10 days; 20 tablet; Refills: 0, ms3 Product Selection Permitted Signatures: Dispatcher [employer] Bruce Cabrera RN RN jl7 Gerhard Moseley DO DO ms3
--- NOTE | 2022-06-13 12:58 | ER ---
Nurse's Notes [facility] Name: Madhavi Michael Age: 56 yrs Sex: Female : 1965 Arrival Date: 06/13/2022 Time: 11:00 Bed Waiting Private MD: Halle Shabazz Diagnosis: Fracture of fourth metatarsal bone;Laceration without foreign body, left foot Presentation: 06/13 11:33 Chief complaint: Patient states: Hurt left 4th toe yesterday, Dr sent for x-ray. jl7 Coronavirus screen: At this time, the client does not indicate any symptoms associated with coronavirus-19. Ebola Screen: No symptoms or risks identified at this time. Initial Sepsis Screen: Does the patient meet any 2 criteria? No. Patient's initial sepsis screen is negative. Does the patient have a suspected source of infection? No. Patient's initial sepsis screen is negative. Risk Assessment: Do you want to hurt yourself or someone else? Patient reports no desire to harm self or others. Onset of symptoms was June 12, 2022. 11:33 Method Of Arrival: Wheelchair [facility] 11:33 Acuity: SISSY 3 jl7 Triage Assessment: 11:34 General: Appears in no apparent distress. uncomfortable, Behavior is calm, cooperative, jl7 appropriate for age. Pain: Complains of pain in left foot Pain currently is 10 out of 10 on a pain scale. Historical: - Allergies: 11:34 No Known Allergies; jl7 - PMHx: 11:34 Asthma; Atrial Fib; COPD; CVA; Diabetes - NIDDM; Leaking Veins x2 Right Leg; jl7 neuropathy; sciatica; Sleep Apnea; - Immunization history:: Client reports receiving the 2nd dose of the Covid vaccine. - Social history:: Smoking status: Patient reports the use of cigarette tobacco products, smokes one pack cigarettes per day. Vital Signs: 11:33 BP 136 / 92; Pulse 79; Resp 17; Temp 97.9; Pulse Ox 99% ; Weight 142.43 kg; Height 5 jl7 ft. 7 in. (170.18 cm); Pain 10/10; 11:33 Body Mass Index 49.18 (142.43 kg, 170.18 cm) jl7 ED Course: 11:00 Patient arrived in ED. mr 11:00 Halle Shabazz MD is Private Physician. mr 11:25 Gerhard oMseley DO is Attending Physician. ms3 11:34 Triage completed. jl7 11:34 Arm band placed on right wrist. jl7 12:03 Foot Left 3 View XRAY In Process Unspecified. EDMS 12:56 Hlale Shabazz MD is Referral Physician. ms3 13:13 Bruce Frankel, RN is Primary Nurse. jl7 Administered Medications: No medications were administered Outcome: 12:57 Discharge ordered by . ms3 13:36 Patient left the ED. hb Signatures: Dispatcher [employer] EDWV SimonLisset mr HutchinsConchis, RN RN Bruce Frankel, DAKSHA RN jlGerhard Guerra DO DO ms3
[2022-06-13 13:46] VITALS: BP 136/92; TEMP 97.9; O2SAT 99
--- OUTSIDE RECORDS SUMMARY | 2022-06-15 14:14 | XMS REPORT | Continuity of Care Document ---
:1965 Author Organization [facility] t Address [address] [place] [address] Care Team Providers Name Role Phone Emilie DAVONTE, Sebastian Primary Care Physician Angeles Shabazz Attending Clinician Unavailable Angeles GARDNER Attending Clinician Unavailable TEREZA Attending Clinician Unavailable Angeles Gardner MD Attending Clinician Ashlie CROOKS, L Attending Clinician Unavailable Richardson Attending Clinician Unavailable 2, Lab Attending Clinician Unavailable Angeles GARDNER Admitting Clinician Unavailable Richardson Admitting Clinician Unavailable Payers Payer Name Policy Type Policy Number Effective Date Expiration Date Allie muller [facility] [id number] 2015 00:00:00 PLUS Problems Condition Condition Condition Status Onset Resolution Last Treating Co mments Source Name Details Category Date Date Treatment Clinician Date Varicose Varicose Disease Active Unive rs veins of veins of 1-31 ity of lower lower 00:00: [place] extremity extremity 00 Medi martha Branch 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 6 it y of t status t status 00:00: [place] [facility] Knee pain, Knee pain, Disease Active U nivers right right 4-20 ity of 00:00: [place] [facility] Abdominal Abdominal Disease Active Uni vers distension distension 7 it y of 00:00: [place] [facility] Flank pain Flank pain Disease Active U nivers 7 ity of 00:00: [place] [facility] Morbid Morbid Disease Active Univers obesity obesity 604 ity of 00:00: [place] 00 Medical Branch Obstructiv Obstructiv Disease Active Overview : Univers e sleep e sleep 04-29 Formattin ity o f apnea apnea 00:00: g of this [place] note Medical might be Branch different from the original. ICD10 Diagnosis Term Crystal Syrup [employer] Utility Asthma Asthma Disease Active Overview: Univer s 2-26 Formattin ity of 00:00: g of this [place] note Medical might be Branch different from the original. ICD10 Diagnosis Term [employer] Utility Essential Essential Disease Active Overview: Univers hypertensi hypertensi 2-26 Formattin ity of on on 00:00: g of this [place] note Medical might be Branch different from the original. 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 ICD10 Diagnosis Term [employer] Utility Allergies, Adverse Reactions, Alerts Allergy Allergy Status Severity Reaction(s) Onset Inactive Treating Comm ents Source Name Type Date Date Clinician No Known DA Active U [facility] All[facility]ie 08-06 s 00:00: [address] No Known DA Active U [facility] Allergie 08-06 s 00:00: [address] NO KNOWN Drug Active Univers ALLERGIE Class ity of S [facility] Social History Social Habit Start Date Stop Date Quantity Comments Source History of Cigarette Smoker Universi ty of tobacco use [facility] Alcohol intake 2022-05-02 2022-05-02 0 /d University of 00:00:00 00:00:00 [facility] Exposure to 2022-04-10 2022-04-20 Not sure [facility] SARS-CoV-2 00:00:00 13:09:00 [facility] [place] [facility] (event) [place] Tobacco Comment 2021-03-11 2021-03-11 1 pack in 2 days Uni versity of 00:00:00 00:00:00 [facility] Sex [birth year] At [birth year] Universit y of 00:00:00 00:00:00 [facility] Smoking Status Start Date Stop Date Source Current every day smoker 2021-03-11 00:00:00 Uni versity of [facility] Medications Ordered Filled Start Stop Current Ordering Indication Dosage Frequency Signature Comments Components Source Medication Medication Date Date Medication? Clinician (SIG) Name Name amLODIPine 2021- No 5mg Take 5 mg U nivers (NORVASC) 5 -20 04-26 by mouth ity of mg tablet 14:30: 00:00 daily. [place] 51 :00 [facility] amitriptyli 2021- No 10mg Take 10 mg Univers ne (ELAVIL) -20 04- by mouth ity of 10 mg 14:30: 00:00 at [place] tablet 42 :00 bedtime. Medical Branch propranolol Yes 40mg Take 40 mg Univers (INDERAL) 5-26 by mouth ity of 40 mg 13:28: daily. [facility] propranolol Yes 40mg Take 40 mg Univers (INDERAL) 5-26 by mouth ity of 40 mg 13:28: daily. [place] tablet [facility] propranolol Yes 40mg Take 40 mg Univers (INDERAL) 5-26 by mouth ity of 40 mg 13:28: daily. [place] tablet [facility] FLUTICASONE Yes 2{puff} Inhale 2 Univers PROPIONATE 4-16 Puffs as ity o f (FLOVENT 14:52: needed. [place] ROTADISK 21 Medical INHALE) Branch Gabapentin, Yes 600mg 600 mg 3 U nivers Bulk, 100 % 4-16 (three) ity o f Powd 14:52: times [place] 21 daily. Medical Branch aspirin 81 Yes 81mg Take 81 mg U nivers mg chewable 4-16 by mouth ity of tablet 14:52: daily. [place] [address] Medical Branch simvastatin Yes 20mg Take 20 mg Univers (ZOCOR) 20 4-16 by mouth ity o f mg tablet 14:52: at [place] 21 bedtime. Medical Branch CARVEDILOL Yes 25mg Take 25 mg U nivers ORAL 4-16 by mouth 2 ity of 14:52: (two) [place] 21 times Medical daily. Branch ferrous Yes 325mg Take 325 Unive rs sulfate 325 4-16 mg by ity of mg (65 mg 14:52: mouth [place] iron) 21 daily. Medical tablet Branch APIXABAN Yes Take by Unive rs (ELIQUIS 4-16 mouth. ity of ORAL) 14:52: [place] [address] Medical Branch fluticasone Yes Inhale. Uni vers -vilanterol 4-16 ity of (BREO 14:52: [place] ELLIPTA) 21 Medical 100-25 Branch mcg/dose DsDv albuterol-i Yes Inhale 4 Un michael pratropium 4-16 (four) ity of (COMBIVENT 14:52: times [place] INHALER) 21 daily. Medical 18-103 Branch mcg/actuati on inhaler FLUTICASONE Yes 2{puff} Inhale 2 Univers PROPIONATE 4-16 Puffs as ity o f (FLOVENT 14:52: needed. [place] ROTADISK 21 Medical INHALE) Branch Gabapentin, Yes 600mg 600 mg 3 U nivers Bulk, 100 % 4-16 (three) ity o f Powd 14:52: times [place] 21 daily. Medical Branch aspirin 81 Yes 81mg Take 81 mg U nivers mg chewable 4-16 by mouth ity of tablet 14:52: daily. [place] [address] Medical Branch simvastatin Yes 20mg Take 20 mg Univers (ZOCOR) 20 4-16 by mouth ity o f mg tablet 14:52: at [place] 21 bedtime. Medical Branch CARVEDILOL Yes 25mg Take 25 mg U nivers ORAL 4-16 by mouth 2 ity of 14:52: (two) [place] 21 times Medical daily. Branch ferrous Yes 325mg Take 325 Unive rs sulfate 325 4-16 mg by ity of mg (65 mg 14:52: mouth [place] iron) 21 daily. Medical tablet Branch APIXABAN Yes Take by Unive rs (ELIQUIS 4-16 mouth. ity of ORAL) 14:52: [place] 21 Medical Branch fluticasone Yes Inhale. Uni vers -vilanterol 4-16 ity of (BREO 14:52: [place] ELLIPTA) 21 Medical 100-25 Branch mcg/dose DsDv albuterol-i Yes Inhale 4 Un michael pratropium 4-16 (four) ity of (COMBIVENT 14:52: times [place] INHALER) 21 daily. Medical 18-103 Branch mcg/actuati on inhaler FLUTICASONE Yes 2{puff} Inhale 2 Univers PROPIONATE 4-16 Puffs as ity o f (FLOVENT 14:52: needed. [place] ROTADISK 21 Medical INHALE) Branch Gabapentin, Yes 600mg 600 mg 3 U nivers Bulk, 100 % 4-16 (three) ity o f Powd 14:52: times [place] 21 daily. Medical Branch aspirin 81 Yes 81mg Take 81 mg U nivers mg chewable 4-16 by mouth ity of tablet 14:52: daily. [place] 21 Medical Branch simvastatin Yes 20mg Take 20 mg Univers (ZOCOR) 20 4-16 by mouth ity o f mg tablet 14:52: at [place] 21 bedtime. Medical Branch CARVEDILOL Yes 25mg Take 25 mg U nivers ORAL 4-16 by mouth 2 ity of 14:52: (two) [place] 21 times Medical daily. Branch ferrous Yes 325mg Take 325 Unive rs sulfate 325 4-16 mg by ity of mg (65 mg 14:52: mouth [place] iron) 21 daily. Medical tablet Branch APIXABAN Yes Take by Unive rs (ELIQUIS 4-16 mouth. ity of ORAL) 14:52: [place] 21 Medical Branch fluticasone 2021-0 Yes Inhale. Uni vers -vilanterol 4-16 ity of (BREO 14:52: [place] ELLIPTA) 21 Medical 100-25 Branch mcg/dose DsDv albuterol-i 0 Yes Inhale 4 Un michael pratropium 4-16 (four) ity of (COMBIVENT 14:52: times [place] INHALER) 21 daily. Medical 18-103 Branch mcg/actuati on inhaler amoxicillin 2020-0 Yes Univer s 500 mg [...] mouth 2 ity of tablet 00:00: (two) [place] 00 times Medical daily. Branch spironolact 2020-0 Yes 25mg Take 25 mg Univers one 25 mg 4-05 by mouth 2 ity of tablet 00:00: (two) [place] 00 times Medical daily. Branch spironolact 2020-0 Yes 25mg Take 25 mg Univers one 25 mg 4-05 by mouth 2 ity of tablet 00:00: (two) [place] 00 times Medical daily. Branch Tizanidine Tizanidine 2020-0 2020- No Na Shabazz 1 capsule Common HCl HCl 8- 09-10 as needed Spirit 00:00: 00:00 - [facility] 00 :00 [facility] diazePAM 5 2021- No [id number] 5mg Take 1 Univers mg tablet 05-28 tablet by ity of 00:00: 00:00 mouth 2 [place] 00 :00 (two) Medical times Branch daily. May take both befor the MRI cyclobenzap 2021- No [id number] 10mg Take 1 Univers rine 10 mg 07-10 tablet by ity of tablet 00:00: 00:00 mouth 3 [place] 00 :00 (three) Medical times Branch daily. methylPREDN 2021- No [id number] Take by Univers ISolone 06-04 mouth ity of (MEDROL, 00:00: 00:00 [place]-INSTRU [place] TIMOTHY,) 4 mg 00 :00 CTIONS. Medica l tablets follow Branch package directions levoFLOXaci 2016-11- No Unive rs n 500 mg 0- ity of tablet 00:00: 00:00 [place] 00 :00 Medical Branch penicillin 2016-11- No Univer s v potassium 0- ity of 500 mg 00:00: 00:00 [place] tablet 00 :00 Medical Branch lidocaine 5 2016-11 Yes Univer s % ointment 0-17 ity of 00:00: [place] 00 Medical Branch lidocaine 5 2016-11 Yes Univer s % ointment 0-17 ity of 00:00: [place] 00 Medical Branch lidocaine 5 2016-11 Yes Univer s % ointment 0-17 ity of 00:00: [place] 00 Medical Branch phenazopyri 2017- Yes 200mg Take 2 Uni vers dine [...] times Branch daily as needed (bladder pain). ibuprofen 2015-11 Yes Univers (MOTRIN) 0-24 ity of 800 mg 00:00: [place] tablet 00 Medical Branch ibuprofen 2015-11 Yes Univers (MOTRIN) 0-24 ity of 800 mg 00:00: [place] tablet 00 Medical Branch ibuprofen 2015-11 Yes Univers (MOTRIN) 0-24 ity of 800 mg 00:00: [place] tablet 00 Medical Branch clindamycin 2015-11- No TAKE 2 Uni vers (CLEOCIN) 0-24 05-26 CAPSULES ity o f 150 mg 00:00: 00:00 BY MOUTH [place] capsule 00 :00 EVERY 8 Medical HOURS ( 3 Branch TIMES A DAY) TAKE WITH FOOD AND DRINK PLENTY OF WATER tiZANidine Yes 4mg Take 4 mg Un michael (ZANAFLEX) 5-10 by mouth 2 ity of 4 mg tablet 00:00: (two) [place] 00 times Medical daily. Branch tiZANidine Yes 4mg Take 4 mg Un michael (ZANAFLEX) 5-10 by mouth 2 ity of 4 mg tablet 00:00: (two) [place] 00 times Medical daily. Branch tiZANidine Yes 4mg Take 4 mg Un michael (ZANAFLEX) 5-10 by mouth 2 ity of 4 mg tablet 00:00: (two) [place] 00 times Medical daily. Branch VOLTAREN 1 Yes 1{dose} Apply 1 U nivers % gel 4-13 Dose to ity of 00:00: [facility] [place] 00 every Medical evening. Branch potassium Yes 10meq Take 10 Univ ers chloride 4-13 mEq by ity of (K-DUR) 10 00:00: mouth [place] mEq CR 00 daily. Medical tablet Branch VOLTAREN 1 Yes 1{dose} Apply 1 U nivers % gel 4-13 Dose to ity of 00:00: area(s) [place] 00 every Medical evening. Branch potassium Yes 10meq Take 10 Univ ers chloride 4-13 mEq by ity of (K-DUR) 10 00:00: mouth [place] mEq CR 00 daily. Medical tablet Branch VOLTAREN 1 Yes 1{dose} Apply 1 U nivers % gel 4-13 Dose to ity of 00:00: area(s) [place] 00 every Medical evening. Branch potassium Yes 10meq Take 10 Univ ers chloride 4-13 mEq by ity of (K-DUR) 10 00:00: mouth [place] mEq CR 00 daily. Medical tablet Branch losartan 2021- No 100mg Take 100 Uni vers (COZAAR) 4-13 05-26 mg by ity of 100 mg 00:00: 00:00 mouth [place] tablet 00 :00 daily. Medical Branch hydrochloro Yes 25mg Take 1 Tab Univers thiazide 7-05 by mouth 2 ity o f (ESIDRIX) 00:00: (two) [place] 25 mg 00 times Medical tablet daily. Branch hydrochloro Yes 25mg Take 1 Tab Univers thiazide 7-05 by mouth 2 ity o f (ESIDRIX) 00:00: (two) [place] 25 mg 00 times Medical tablet daily. Branch hydrochloro Yes 25mg Take 1 Tab Univers thiazide 7-05 by mouth 2 ity o f (ESIDRIX) 00:00: (two) [place] 25 mg 00 times Medical tablet daily. Branch docusate 2021- No 240mg Take 1 Cap U nivers calcium 7-05 05-26 by mouth 2 ity o f (SURFAK) 00:00: 00:00 (two) [place] 240 mg 00 :00 times Medical capsule daily. Branch Potassium Potassium Yes Na Shabazz 1 capsule Common Chloride ER Chloride ER with food [facility] Immunizations Ordered Filled Immunization Date Status Comments Sour e Immunization Name Name SARS-COV-2 COVID-19 2021-01-30 Completed Unive rsity of MODERNA VACCINE 00:00:00 [facility] SARS-COV-2 COVID-19 2021-01-30 Completed Unive rsity of MODERNA VACCINE 00:00:00 [facility] SARS-COV-2 COVID-19 2021-01-30 Completed Unive rsity of MODERNA VACCINE 00:00:00 [facility] SARS-COV-2 COVID-19 2021-01-02 Completed Unive rsity of MODERNA VACCINE 00:00:00 [facility] SARS-COV-2 COVID-19 2021-01-02 Completed Unive rsity of MODERNA VACCINE 00:00:00 [facility] SARS-COV-2 COVID-19 2021-01-02 Completed Unive rsity of MODERNA VACCINE 00:00:00 [facility] Afluria single dose Afluria single dose 2019-08-21 Completed [facility] - 00:00:00 [facility] Pneumococcal 2013-06-06 Completed [place] o f Polysaccharide, 00:00:00 [facility] ical PPSV23 (PNEUMOVAX) Branch Pneumococcal 2013-06-06 Completed [place] o f Polysaccharide, 00:00:00 [place] [facility] ical PPSV23 (PNEUMOVAX) Branch Pneumococcal 2013-06-06 Completed [place] o f Polysaccharide, 00:00:00 [facility] ical PPSV23 (PNEUMOVAX) Branch Vital Signs Vital Name Observation Time Observation Value Comments Source Systolic blood 2022-04-20 18:36:00 95 mm[Hg] Univer sity of [facility] Diastolic blood 2022-04-20 18:36:00 66 [facility]Hg[facility] 2022-04-20 18:36:00 60 /min [facility] Body temperature 2022-04-20 18:36:00 36.67 [facility] Respiratory rate 2022-04-20 18:36:00 18 /min [facility] Body height 2022-04-20 18:36:00 170.2 cm [facility] Body weight 2022-04-20 18:36:00 145.151 kg [facility] BMI 2022-04-20 18:36:00 50.12 kg/m2 [facility] Procedures This patient has no known procedures. Encounters Start End Encounter Admission Attending Care Care Encounter Source Date/Time Date/Time Type Type Clinicians Facility Department ID 2022-04-10 Outpatient Mele, Na STLC STLC [id number] 2 Common 10:21:15 [facility] 2022-04-06 Outpatient Halle Shabazz STLC STLC [id number] 2 Common 11:08:00 [facility] 2022-01-25 Outpatient Halle Shabazz STLC STLC [id number] 2 Common 10:27:01 [facility] 2022-01-02 Outpatient Shabazz, Na STLMLC STLMLC [id number] 2 Common 16:38:01 [facility] 2021-12-21 Outpatient Shabazz, Na STLMLC STLMLC [id number] 2 Common 14:25:40 [id number] [facility] 2021-12-21 Outpatient Shabazz, Na STLMLC STLMLC [id number] 2 Common 14:24:21 [id number] [facility] 2021-12-21 Outpatient Shabazz, Na STLMLC STLMLC [id number] 2 Common 14:13:58 [id number] [facility] 2021-12-21 Outpatient Shabazz, Na STLMLC STLMLC [id number] 2 Common 14:12:46 [id number] [facility] 2021-12-21 Outpatient Shabazz, Na STLMLC STLMLC [id number] 2 Common 13:36:34 [id number] [facility] 2021-12-21 Outpatient Shabazz, Na STLMLC STLMLC [id number] 2 Common 13:35:25 [id number] [facility] 2021-12-21 Outpatient Shabazz, Na STLMLC STLMLC [id number] 2 Common 13:20:19 [id number] [facility] 2021-12-21 Outpatient Shabazz, Na STLMLC STLMLC [id number] 2 Common 13:19:52 [id number] [facility] 2021-12-21 Outpatient Shabazz, Na STLMLC STLMLC [id number] 2 Common 12:41:36 [id number] [facility] 2021-12-21 Outpatient Shabazz, Na STLMLC STLMLC [id number] 2 Common 12:26:03 [id number] [facility] 2021-12-21 Outpatient Shabazz, Na STLMLC STLMLC [id number] 2 Common 12:18:00 [id number] [facility] 2021-12-21 Outpatient Shabazz, Na STLMLC STLMLC [id number] 2 Common 11:54:00 [id number] [facility] 2021-12-21 Outpatient Shabazz, Na STLMLC STLMLC [id number] 2 Common 11:53:41 [id number] [facility] 2021-12-21 Outpatient Shabazz, Na STLMLC STLMLC [id number] 2 Common 11:53:09 [id number] [facility] 2021-12-21 Outpatient Shabazz, Na STLMLC STLMLC [id number] 2 Common 11:35:33 [id number] [facility] 2021-12-21 Outpatient Shabazz, Na STLMLC STLMLC [id number] 2 Common 11:20:32 [id number] [facility] 2021-12-21 Outpatient Shabazz, Na STLMLC STLMLC [id number] 2 Common 11:18:09 [id number] [facility] 2023-04-20 2023-04-20 [id number] Univers 10:30:00 10:30:00 OPAL [facility] [place] [facility] 2022-06-28 2022-06-28 [facility] [id number] Univers 13:00:00 13:00:00 CE [id number] [facility] [place] [facility] 2022-05-31 2022-05-31 ambulatory STLMLC STLMLC [id number] Common 00:00:00 00:00:00 [facility] 2022-05-05 2022-05-05 Outpatient R LAYLA, [facility] [id number] Univers 09:04:49 23:59:00 [facility] 2022-05-05 [facility] [id number] Univers 09:04:49 23:59:00 Encounter Opal BIRD [id number] kenny [facility] [id number] [facility] [id number] [place] [id number] Branch 2022-05-02 2022-05-02 Telephone Ashlie FITZPATRICK [id number] Univers 00:00:00 00:00:00 , Anny CRENSHAW [id number] [place]y [id number] [id number] [facility] 086 Branch 2022-04-20 2022-04-20 Office Ad, [facility] [id number] Univers 13:30:00 14:15:17 Visit Opal BIRD [id number] ity of [id number] PROFESS[place] [id number] [facility] 134 [facility] 2022-04-20 2022-04-20 ambulatory STLMLC STLMLC [id number] Common 00:00:00 00:00:00 [facility] 2022-04-10 2022-04-10 ambulatory STLMLC STLMLC [id number] Common 00:00:00 00:00:00 [facility] 2022-03-09 2022-03-09 ambulatory STLMLC STLMLC [id number] Common 00:00:00 00:00:00 [facility] 2022-02-06 2022-02-06 ambulatory STLMLC STLMLC [id number] Common 00:00:00 00:00:00 [facility] 2022-01-26 2022-01-26 ambulatory STLMLC STLMLC [id number] Common 00:00:00 00:00:00 [facility] 2022-01-02 2022-01-02 ambulatory STLMLC STLMLC [id number] Common 00:00:00 00:00:00 [facility] 2022-01-02 2022-01-02 ambulatory STLMLC STLMLC [id number] Common 00:00:00 00:00:00 [facility] 2021-12-14 2021-12-14 ambulatory STLMLC STLMLC [id number] Common 00:00:00 00:00:00 [facility] 2021-11-24 2021-11-24 ambulatory STLMLC STLMLC [id number] Common 00:00:00 00:00:00 [facility] 2021-11-23 2021-11-23 ambulatory STLMLC STLMLC [id number] Common 00:00:00 00:00:00 [facility] 2021-11-21 2021-11-21 ambulatory STLMLC STLMLC [id number] Common 00:00:00 00:00:00 [facility] 2021-11-10 2021-11-10 ambulatory STLMLC STLMLC [id number] Common 00:00:00 00:00:00 [facility] 2021-10-14 2021-10-14 ambulatory STLMLC STLMLC [id number] Common 00:00:00 00:00:00 [facility] 2021-10-07 2021-10-07 ambulatory STLMLC STLMLC [id number] Common 00:00:00 00:00:00 [facility] 2021-10-07 2021-10-07 ambulatory STLMLC STLMLC [id number] Common 00:00:00 00:00:00 [facility] 2021-10-06 2021-10-06 ambulatory STLMLC STLMLC [id number] Common 00:00:00 00:00:00 [facility] 2021-09-22 2021-09-22 Outpatient STLMLC STLMLC [id number] Common 00:00:00 00:00:00 [facility] 2021-08-06 2021-08-07 Inpatient Richardson[facility] [id number] [facility] 05:39:00 12:45:[id number] [facility] 2021-08-02 2021-08-02 Outpatient STLMLC STLMLC [id number] Common 00:00:00 00:00:00 [facility] 2021-07-11 2021-07-11 Outpatient STLMLC STLMLC [id number] Common 00:00:00 00:00:00 [facility] 2021-07-05 2021-07-05 Outpatient STLMLC STLMLC [id number] Common 00:00:00 00:00:00 [facility] 2021-06-08 2021-06-08 Outpatient STLMLC STLMLC [id number] Common 00:00:00 00:00:00 [facility] 2021-05-25 2021-05-25 Outpatient STLMLC STLMLC [id number] Common 00:00:00 00:00:00 [facility] 2021-05-17 2021-05-17 Outpatient STLMLC STLMLC [id number] Common 00:00:00 00:00:00 [facility] 2021-04-19 2021-04-19 Outpatient STLMLC STLMLC [id number] Common 00:00:00 00:00:00 [facility] 2021-04-15 2021-04-15 Outpatient STLMLC STLMLC [id number] Common 00:00:00 00:00:00 [facility] 2021-03-31 2021-03-31 Outpatient STLMLC STLMLC [id number] Common 00:00:00 00:00:00 [facility] 2021-03-24 2021-03-24 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 Operator 2, Adc Lab [facility] [id number] 13:35:27 13:50:27 Visit Bruce [id number] [place] [id number] Professio [id number] [facility] 353 [facility] 2021-03-11 2021-03-11 Office Adum, [facility] [id number] 14:23:31 16:29:07 Visit Opal Bird [id number] [place] [id number] Professio [id number] nal 134 [facility] 2021-02-25 2021-02-25 Outpatient STLMLC STLMLC [id number] Common 00:00:00 00:00:00 [facility] 2021-02-20 2021-02-20 Outpatient STLMLC STLMLC [id number] Common 00:00:00 00:00:00 [facility] 2021-02-15 2021-02-15 Outpatient STLMLC STLMLC [id number] Common 00:00:00 00:00:00 [facility] 2021-02-11 2021-02-11 Outpatient STLMLC STLMLC [id number] Common 00:00:00 00:00:00 [facility] 2021-02-10 2021-02-10 Outpatient STLMLC STLMLC [id number] Common 00:00:00 00:00:00 [facility] 2021-02-09 2021-02-09 Outpatient STLMLC STLMLC [id number] Common 00:00:00 00:00:00 [facility] 2021-02-07 2021-02-07 Outpatient STLMLC STLMLC [id number] Common 00:00:00 00:00:00 [facility] 2021-01-29 2021-01-29 Outpatient STLMLC STLMLC [id number] Common 00:00:00 00:00:00 [facility] 2021-01-25 2021-01-25 Outpatient STLMLC STLMLC [id number] Common 00:00:00 00:00:00 [facility] 2021-01-18 2021-01-18 Outpatient STLMLC STLMLC [id number] Common 00:00:00 00:00:00 [facility] 2020-12-07 2020-12-07 Outpatient STLMLC STLMLC [id number] Common 00:00:00 00:00:00 [facility] 2020-11-04 2020-11-04 Outpatient STLMLC STLMLC [id number] Common 00:00:00 00:00:00 [facility] 2020-11-03 2020-11-03 Outpatient STLMLC STLMLC [id number] Common 00:00:00 00:00:00 [facility] 2020-09-27 2020-09-27 Outpatient STLMLC STLMLC [id number] Common 00:00:00 00:00:00 [facility] 2020-09-06 2020-09-06 Outpatient STLMLC STLMLC [id number] Common 00:00:00 00:00:00 [facility] 2020-07-06 2020-07-06 [facility] [id number] Common 11:42:00 11:42:00 t [facility] [address] [facility] 2020-07-05 2020-07-05 [facility] [id number] Common 10:00:00 10:00:[address] [facility] 2020-06-14 2020-06-14 [facility] [id number] Common 13:12:00 13:12:[address] [facility] 2020-05-27 2020-05-27 [facility] [id number] Common 15:57:00 15:57:[address] [facility] 2020-05-04 2020-05-04 [facility] [id number] Common 13:46:00 13:46:[address] [facility] 2020-04-21 2020-04-21 [facility] [id number] Common 16:33:00 16:33:00 t [facility] [address] [facility] 2020-04-01 2020-04-01 [id number] Common 10:40:00 10:40:[address] [facility] 2020-03-08 2020-03-08 [id number] Common 16:19:00 16:19:[address] [facility] 2020-03-01 2020-03-01 [facility] [id number] Common 14:28:00 14:28:[address] [facility] 2020-01-28 2020-01-28 [facility] [id number] Common 16:24:00 16:24:[address] [facility] 2020-01-07 2020-01-07 [facility] [id number] Common 11:21:00 11:21:[address] [facility] 2020-01-05 2020-01-05 [facility] [id number] Common 14:40:00 14:40:[address] [facility] 2019-12-19 2019-12-19 [facility] [id number] Common 11:20:00 11:20:[address] [facility] 2019-11-17 2019-11-17 [id number] Common 10:40:00 10:40:[address] [facility] 2019-11-12 2019-11-12 [facility] [id number] Common 15:22:00 15:22:[address] [facility] 2019-10-13 2019-10-13 [facility] [id number] Common 08:38:00 08:38:[address] [facility] 2019-09-25 2019-09-25 [id number] Common 09:55:00 09:55:[address] [facility] 2019-09-12 2019-09-12 [facility] [id number] Common 10:00:00 10:00:[address] [facility] 2019-08-21 2019-08-21 [facility] [id number] Common 14:20:00 14:20:[address] [facility] 2019-08-14 2019-08-14 [facility] [id number] Common 09:45:00 09:45:00 t Specialty/[facility] Sp [facility] Specialty rology - [facility] 2019-07-23 2019-07-23 [facility] [id number] Common 09:30:00 09:30:00 t Specialty/[facility] Specialty rology - [facility] 2019-07-18 2019-07-18 [facility] [id number] Common 13:20:00 13:20:00 [place] [employer] [address] [facility] 2019-05-21 2019-05-21 [facility] [id number] Common 13:45:00 13:45:00 t Specialty/U Sp gael Specialty rology - [facility] 2019-05-16 2019-05-16 [facility] [id number] Common 11:30:00 11:30:00 t Specialty/U Sp gael Specialty rology - [facility] /[facility] 2019-05-13 2019-05-13 [facility] [id number] Common 10:40:00 10:40:00 [place] [employer] [address] [facility] 2019-05-08 2019-05-08 [facility] [id number] Common 11:30:00 11:30:00 t Specialty/U Sp gael Specialty rology - [facility] /[facility] 2019-03-13 2019-03-13 [facility] [id number] Common 10:40:00 10:40:[address] [facility] 2019-02-19 2019-02-19 [facility] [id number] Common 11:30:00 11:30:00 t Specialty/U Sp gael Specialty rology - [facility] 2019-02-14 2019-02-14 [facility] [id number] Common 11:15:00 11:15:00 t Specialty/U Sp gael Specialty rology - [facility] 2019-02-05 2019-02-05 [facility] [id number] Common 09:30:00 09:30:00 t [place] [employer] [address] [facility] 2019-01-17 2019-01-17 [facility] [id number] Common 11:00:00 11:00:00 t Specialty/U Sp gael Specialty rology - [facility] 2019-01-13 2019-01-13 [facility] [id number] Common 08:30:00 08:30:00 t Specialty/U Sp gael Specialty rology - [facility] 2018-12-24 2018-12-24 [facility] [id number] Common 07:58:00 07:58:00 t Specialty/U Sp gael Specialty rology - [facility] 2018-12-17 2018-12-17 [facility] [id number] Common 10:15:00 10:15:00 t Specialty/U Sp gael Specialty rology - [facility] 2018-12-13 2018-12-13 [facility] [id number] Common 09:35:00 09:35:[address] [facility] 2018-12-11 2018-12-11 [facility] [id number] Common 10:30:00 10:30:[address] [facility] 2018-08-22 2018-08-22 [facility] [id number] Common 08:12:00 08:12:[address] [facility] 2018-08-20 2018-08-20 [facility] [id number] Common 09:15:00 09:15:[address] [facility] 2018-08-05 2018-08-05 [id number] Common 14:15:00 14:15:[address] [facility] Results Test Description Test Time Test Comments Results Result Comments Source GLUCOSE BEDSIDE TESTING 2021-08-07 08:33:00 Test Item Value Reference Range Interpretation Comme nts GLUCOSE BEDSIDE TESTING (test code = GLUBED) 72 MG/DL 60-99 N - XR CHEST [id number] 06:52:00 [facility] 1965 Sex: F Patient Name: SUSIE WHITTAKER Unit No: [id number] EXAMS: CPT CODE: [id number] XR CHEST 1V [id number] EXAM: CHEST ONE VIEW INDICATION: S/P ICD [...] 16 Orig Print D/T: S: 08/07/2021 (0655) [facility] NAME: SUSIE WHITTAKER [id number] PHYS: [place] [address] : 1965 AGE: 55 SEX: F LOC: [id number] A PHONE #: [phone] EXAM DATE: 08/07/2021 STATUS: ADM IN FAX #: [phone] RADIOLOGY NO: PAGE 1 Signed ReportBASIC METABOLIC [id number] 06:15:00 Test Item Value Reference Range Interpretation [...] 8.9 MG/DL 8.4-10.2 N CA) CBC W/AUTO [id number] 05:40:00 Test Item Value Reference Range Interpretation [...] 0.00 K/mm3 0.0-0.1 N NRBC#) GLUCOSE BEDSIDE [id number] 20:22:00 Test Item Value Reference Range Interpretation Comments GLUCOSE BEDSIDE TESTING (test code = 92 MG/DL 60-99 N GLUBED) - XR CHEST [id number] 12:24:00 [facility] 1965 Sex: F Patient Name: SUSIE WHITTAKER Unit No: [id number] EXAMS: CPT CODE: [id number] XR CHEST [id number] [id number] CLINICAL HISTORY: S/P ICD. LOCATION: A1 FINDINGS: [...] Geiger MD CC: Nupur Ortiz MD Technologist: Camrine Alfaro (RT) Transcrpt Date/Tm/Trnsp: 08/06/2021 (1224) [email or web address] Orig Print D/T: S: 08/06/2021 (1227) [facility] NAME: SUSIE WHITTAKER [id number] [address] PHYS: [place] [address] :1965 AGE: 55 SEX: F LOC: LOUANN Kerr PHONE #: [phone] EXAM DATE: 08/06/2021 STATUS: ADM IN FAX #: [phone] RADIOLOGY NO: PAGE 1 Signed Report BASIC METABOLIC [id number] 09:16:00 Test Item Value Reference Range Interpretation [...] 9.3 MG/DL 8.4-10.2 N CA) Comments to Ceo And President: NURSE WILL BRING SPECIMEN TO LABIs this [...] VERY HIGH...... ...>/= 190 mg/dL Comments to Ceo And President: NURSE WILL BRING SPECIMEN TO LABIs this a LINE draw? N [id number] 09:16:00 Test Item Value Reference Range Interpretation Comments MAGNESIUM (test code = MAG) 1.8 MG/DL 1.6-2.3 N Comments to Ceo And President: NURSE WILL BRING SPECIMEN TO LABIs this a LINE draw? N BASIC METABOLIC [id number] 09:05:00 Test Item Value Reference Range Interpretation [...] 9.3 MG/DL 8.4-10.2 N CA) Comments to Ceo And President: NURSE WILL BRING SPECIMEN TO LABIs this [...] MG/DL 0-99 code = LDL) Comments to Ceo And President: NURSE WILL BRING SPECIMEN TO LABIs this a LINE draw? N [id number] 09:05:00 Test Item Value Reference Range Interpretation Comments MAGNESIUM (test code = MAG) 1.8 MG/DL 1.6-2.3 N Comments to Ceo And President: NURSE WILL BRING SPECIMEN TO LABIs this a LINE draw? N PROTHROMBIN [id number] 09:01:00 Test Item Value Reference Range Interpretation [...] jesus embolism. 3.0 - 4.5 Comments to Ceo And President: NURSE WILL BRING SPECIMEN TO LABPTT ACTIVATED 2021-08-06 09:01:00 Test Item Value Reference Range Interpretation Comments PTT ACTIVATED (test code = APTT) 31.5 SECONDS 25.1-36.5 N Comments to Ceo And President: NURSE WILL BRING SPECIMEN TO LABCBC W/AUTO [...] 0.00 K/mm3 0.0-0.1 N NRBC#) Comments to Ceo And President: NURSE WILL BRING SPECIMEN TO LABCOVID 19 Asymptomatic IH [id number] 05:59:00 Test Item Value Reference Range Interpretation [...]
== END 2022-06-13 13:36 | disposition home or self-care (01) ==
LOC: ER 10:49
DX: S92.342A Displaced fracture of fourth metatarsal bone, left foot, initial encounter for closed fracture (principal); S91.115A Laceration without foreign body of left lesser toe(s) without damage to nail, initial encounter; F17.210 Nicotine dependence, cigarettes, uncomplicated
CPT/HCPCS: 99282

== ENCOUNTER 2022-11-02 19:59 | Emergency (ER) | payer OTHER ==
--- OUTSIDE RECORDS SUMMARY | 2022-11-02 20:10 | XMS REPORT | Continuity of Care Document ---
:1965 Author Organization [facility] t Address [address] [place] [address] Care Team Providers Name Role Phone Emilie DAVONTEAnna Sebastian Primary Care Physician Halle Shabazz Attending Clinician Unavailable OPAL GARDNER Attending Clinician Unavailable ASHLEY SINGLETON Attending Clinician Unavailable Ashley Singleton MD Attending Clinician TAMI MICHELE Attending Clinician Unavailable Opal Gardner MD Attending Clinician Dailey RN, Anny L Attending Clinician Unavailable Richardson, Cat [place] Attending Clinician Unavailable 2, [facility] Attending Clinician Unavailable Doctor Unassigned, [place] Attending Clinician Unavailable Inga Lazo MA Attending Clinician Unavailable JESSICA PETERSON Attending Clinician Unavailable Peng Glez MD Attending Clinician PENG GLEZ Attending Clinician Unavailable PENG GLEZ Attending Clinician Unavailable OPAL GARDNER Admitting Clinician Unavailable Richardson, Joselito Admitting Clinician Unavailable Payers Payer Name Policy Type Policy Number Effective Date Expiration Date S [facility] [id number] 2015 PLUS 00:00:00 [place] [id number] 2020 [employer] 00:00:00 [place] [id number] 2017 [employer] 00:00:00 [place] [id number] 2020 [employer] 00:00:00 [place] [id number] 2017 [employer] 00:00:00 [place] [id number] 2017 [employer] [facility] 00:00:00 [place] [id number] 2017 [employer] [facility] 00:00:00 [facility] Problems Condition Condition Condition Status Onset Resolution Last Treating Co mments Source Name Details Category Date Date Treatment Clinician Date Varicose Varicose Disease Active Unive rs veins of veins of 1-31 ity of lower lower 00:00: [place] extremity extremity 00 Medi martha Branch 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 6-06 it y of t status t status 00:00: Medical Branch Knee pain, Knee pain, Disease Active U nivers right right 4-20 ity of 00:00: Medical Branch Knee pain, Knee pain, Disease Active U nivers right right 4-20 ity of 00:00: Medical Branch Abdominal Abdominal Disease Active Uni vers distension distension 7-06 it y of 00:00: Medical Branch Flank pain Flank pain Disease Active U velvet 05-31 ity of 00:00: [place] 00 Medical Branch Asthma Asthma Disease Active Overview: Dhirajjeniffer s 01-21 Formattin ity of 00:00: g of this [place] 00 note Medical might be Branch different from the original. 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 Dysthymia Chronic Problem Commo n depressive Spirit person [facility] History of H/O TIA Problem Comm on cerebrovas (transient Sp gael cular ischemic - [facility]I accident attack) without and stroke [facility] Medical deficits Center Nicotine Nicotine Problem Commo n dependence dependence Sp gael - [facility] [id number] Acquired Problem Commo n torticolli Spirit s - [facility] Asthma Asthma, Problem Common without unspecifie Spiri t status d asthma - [facility] asthmaticu severity, [facility] unspecifie [facility] d whether Medical complicate Center d, unspecifie d whether persistent [id number] Cervical Problem Commo n radiculopa Spirit thy [facility] [id number] Gastroesop Problem Co mmon hageal Spirit reflux - [facility]I disease [facility] esophagiti Medica l s Center [id number] Gingivitis Problem Com mon [facility] Osteoarthr Osteoarthr Problem C ommon osis, osis, Spirit localized, localized, - [facility] secondary, secondary, St involving involving ke s lower leg lower leg [facility] [id number] Seasonal Problem Comm on allergic Spirit rhinitis, - [facility]I unspecifie [facility] Diabetes Diabetes Problem Commo n mellitus mellitus Spirit type 2 in type 2 in - CH I nonobese nonobese [facility] Lump Lump Problem Common [facility] [id number] Paroxysmal Problem Co mmon atrial Spirit fibrillati - [facility] on [facility] [id number] Morbid Problem Common (severe) Spirit obesity - [facility] due to [facility] [id number] Abscess of Problem Co mmon vagina [facility] Anemia Anemia Problem Common [facility] Edema Edema Problem Common [facility] Hypotensio Hypotensio Problem C ommon n due to n due to Spirit drugs drugs - [facility] Hyperlipid Hyperlipid Problem C ommon emia emia [facility] [id number] Recurring Problem Comm on cold Spirit staphyloco - [facility] ccal [facility] Gastroesop GERD Problem Commo n hageal (gastroeso Spirit reflux phageal - [facility] disease reflux St disease) [facility] [id number] Stress Problem Common incontinen Spirit ce [facility] Obstructiv Obstructiv Problem C ommon e sleep e sleep Spirit apnea apnea - [facility] [id number] Controlled Problem Co mmon type 2 Spirit diabetes - [facility] mellitus [facility] complicati Medica l on, Center without long-term current use of insulin Osteoarthr Osteoarthr Problem C ommon itis itis [facility] [id number] Decreased Problem Commo n mobility [facility] Essential Elevated Problem Comm on hypertensi blood Spirit on pressure - [facility] reading with [facility] diagnosis Medical of Ucon hypertensi on [id number] Acute Problem Common right-side [facility] d low back - [facility] pain [facility] sciatica Medical Ucon [id number] Dysuria Problem Common [facility] [id number] Thrombocyt Problem Co mmon openic [facility] [id number] History of Problem Co mmon cholecyste Spirit ctomy [facility] [id number] Atypical Problem Comm on chest pain [facility] Hypertensi HTN Problem Commo n on (hypertens Spirit ion) [facility] [id number] Facial Problem Common pain [facility] Morbid Morbid Problem Common obesity obesity [facility] [id number] Other Problem Common chronic Spirit pain [facility] [id number] Diverticul Problem Co mmon osis [facility] Peripheral Peripheral Problem C ommon neuropathy neuropathy Sp gael [facility] [id number] Proteus Problem Common (mirabilis Spirit ) [facility] (morganii) as the [facility] cause of Medical diseases Center classified elsewhere [id number] Acute Problem Common cystitis [facility] with [facility] hematuria [facility] [id number] Pacemaker Problem Com mon [facility] [id number] Chronic Problem Commo n obstructiv [facility] e - [facility] pulmonary [facility] with acute Medica l exacerbati Center on Thrombocyt Thrombocyt Problem C ommon openia openia [facility] [id number] Chronic Problem Common fatigue [facility] [id number] Chronic Problem Commo n pain Spirit syndrome [facility] [id number] Smoking Problem Common greater Spirit than 30 - CHI pack years [facility] Allergies, Adverse Reactions, Alerts Allergy Allergy Status Severity Reaction(s) Onset Inactive Treating Comm ents Source Name Type Date Date Clinician No Known DA Active U [facility]ie 08-06 [facility] 00:00: [address] No Known DA Active U [facility] Allergie 08-06 [facility] 00:00: [address] NO KNOWN Drug Active Univers ALLERGIE Class ity of S [facility] Social History Social Habit Start Date Stop Date Quantity Comments Source Sex Assigned At Common Sp gael - [facility] History of tobacco Cigarette Smoker University of use [facility] Exposure to 2022-10-20 2022-10-30 Not sure [facility] SARS-CoV-2 (event) 00:00:00 15:12:00 [facility] Alcohol intake 2022-10-30 2022-10-30 0 /d University of 00:00:00 00:00:00 [facility] Tobacco Comment 2022-10-30 2022-10-30 1 pack in 2 days Uni versity of 00:00:00 00:00:00 [facility] Cigarettes smoked 2022-10-30 2022-10-30 Univers ity of current (pack per 00:00:00 00:00:00 ) - Reported Branch Cigarette 2022-10-30 2022-10-30 University of pack-years 00:00:00 00:00:00 [facility] Tobacco use and 2022-10-30 2022-10-30 Smokeless Universit y of exposure 00:00:00 00:00:00 tobacco non-user [facility] Smoking Status Start Date Stop Date Source Current Smoker 2022-09-18 00:00:00 [facility] Spiri [facility] Medications Ordered Filled Start Stop Current Ordering Indication Dosage Frequency Signature Comments Components Source Medication Medication Date Date Medication? Clinician (SIG) Name Name metFORMIN metFORMIN No QD metFORMIN HCl ER 500 HCl ER 500 8-16 HCl ER 500 MG MG 00:00: MG 00 metFORMIN metFORMIN No QD metFORMIN HCl ER 500 HCl ER 500 8-16 HCl ER 500 MG MG 00:00: MG 00 metFORMIN metFORMIN No QD metFORMIN HCl ER 500 HCl ER 500 8-16 HCl ER 500 MG MG 00:00: MG 00 metFORMIN metFORMIN No QD metFORMIN HCl ER 500 HCl ER 500 8-16 HCl ER 500 MG MG 00:00: MG 00 amLODIPine 2021- No 5mg Take 5 mg U nivers (NORVASC) 5 - 05-26 by mouth ity of mg tablet 14:30: 00:00 daily. [place] 51 :[address] [facility] amitriptyli 2021- No 10mg Take 10 mg Univers ne (ELAVIL) 5-20 04- by mouth ity of 10 mg 14:30: 00:00 at [place] tablet 42 :[address] [facility] propranolol Yes 40mg Take 40 mg Univers (INDERAL) 5-26 by mouth ity of 40 mg 13:28: daily. [facility] propranolol Yes 40mg Take 40 mg Univers (INDERAL) 5-26 by mouth ity of 40 mg 13:28: daily. [facility] propranolol Yes 40mg Take 40 mg Univers (INDERAL) 5-26 by mouth ity of 40 mg 13:28: daily. [facility] propranolol Yes 40mg Take 40 mg Univers (INDERAL) 5-26 by mouth ity of 40 mg 13:28: daily. [facility] propranolol Yes 40mg Take 40 mg Univers (INDERAL) 5-26 by mouth ity of 40 mg 13:28: daily. [facility] Mupirocin 2 Mupirocin 2 2021- No TID Mupirocin % % 5-16 05-30 2 % 00:00: 00:00 00 :00 Mupirocin 2 Mupirocin 2 2021- No TID Mupirocin % % 5-16 05-30 2 % 00:00: 00:00 00 :00 Bactrim DS Bactrim DS 2021- No 1{table BID Bactrim DS 800-160 MG 800-160 MG 04-10 t} 800-160 MG 00:00: 00:00 00 :00 Bactrim DS Bactrim DS 2-0 2022- No 1{table BID Bactrim DS 800-160 MG 800-160 MG 04-10 t} 800-160 MG 00:00: 00:00 00 :00 Lidocaine 5 Lidocaine 5 2021-0 No QD Lidocaine % % 3-03 5 % 00:00: 00 Lidocaine 5 Lidocaine 5 2021-0 No QD Lidocaine % % 3-03 5 % 00:00: 00 Lidocaine 5 Lidocaine 5 2021-0 No QD Lidocaine % % 3-03 5 % 00:00: 00 Lidocaine 5 Lidocaine 5 2021-0 No QD Lidocaine % % 3-03 5 % 00:00: 00 Lidocaine 5 Lidocaine 5 2021-0 No QD Lidocaine % % 3-03 5 % 00:00: 00 Lidocaine 5 Lidocaine 5 2021-0 No QD Lidocaine % % 3-03 5 % 00:00: 00 Lidocaine 5 Lidocaine 5 2021-0 No QD Lidocaine % % 3-03 5 % 00:00: 00 Lidocaine 5 Lidocaine 5 2021-0 No QD Lidocaine % % 3-03 5 % 00:00: 00 Lidocaine 5 Lidocaine 5 2021-0 No QD Lidocaine % % 3-03 5 % 00:00: 00 Lidocaine 5 Lidocaine 5 2021-0 No QD Lidocaine % % 3-03 5 % 00:00: 00 Lidocaine 5 Lidocaine 5 2021-0 No QD Lidocaine % % 3-03 5 % 00:00: 00 Lidocaine 5 Lidocaine 5 2021-0 No QD Lidocaine % % 3-03 5 % 00:00: 00 Lidocaine 5 Lidocaine 5 2021-0 No QD Lidocaine % % 3-03 5 % 00:00: 00 Lidocaine 5 Lidocaine 5 2021-0 No QD Lidocaine % % 3-03 5 % 00:00: 00 Chlorhexidi Chlorhexidi 2020-11- No BID Chlorhexid ne ne 12-01 ine Gluconate Gluconate 00:00: 00:00 Gluconate 0.12 % 0.12 % 00 :00 0.12 % Chlorhexidi Chlorhexidi 2020-11- No BID Chlorhexid ne ne 12-01 ine Gluconate Gluconate 00:00: 00:00 Gluconate 0.12 % 0.12 % 00 :00 0.12 % Albuterol Albuterol 2020-11 No 3{ml_as TID Albuterol Sulfate Sulfate 2-16 _needed Sulfate (2.5 (2.5 00:00: } (2.5 MG/3ML) MG/3ML) 00 MG/3ML) 0.083% 0.083% 0.083% Albuterol Albuterol 2020-11 No 3{ml_as TID Albuterol Sulfate Sulfate 2-16 _needed Sulfate (2.5 (2.5 00:00: } (2.5 MG/3ML) MG/3ML) 00 MG/3ML) 0.083% 0.083% 0.083% Albuterol Albuterol 2020-11 No 3{ml_as TID Albuterol Sulfate Sulfate 2-16 _needed Sulfate (2.5 (2.5 00:00: } (2.5 MG/3ML) MG/3ML) 00 MG/3ML) 0.083% 0.083% 0.083% Albuterol Albuterol 2020-11 No 3{ml_as TID Albuterol Sulfate Sulfate 2-16 _needed Sulfate (2.5 (2.5 00:00: } (2.5 MG/3ML) MG/3ML) 00 MG/3ML) 0.083% 0.083% 0.083% Albuterol Albuterol 2020-11 No 3{ml_as TID Albuterol Sulfate Sulfate 2-16 _needed Sulfate (2.5 (2.5 00:00: } (2.5 MG/3ML) MG/3ML) 00 MG/3ML) 0.083% 0.083% 0.083% Albuterol Albuterol 2020-11 No 3{ml_as TID Albuterol Sulfate Sulfate 2-16 _needed Sulfate (2.5 (2.5 00:00: } (2.5 MG/3ML) MG/3ML) 00 MG/3ML) 0.083% 0.083% 0.083% Albuterol Albuterol 2020-11 No 3{ml_as TID Albuterol Sulfate Sulfate 2-16 _needed Sulfate (2.5 (2.5 00:00: } (2.5 MG/3ML) MG/3ML) 00 MG/3ML) 0.083% 0.083% 0.083% Albuterol Albuterol 2020-11 No 3{ml_as TID Albuterol Sulfate Sulfate 2-16 _needed Sulfate (2.5 (2.5 00:00: } (2.5 MG/3ML) MG/3ML) 00 MG/3ML) 0.083% 0.083% 0.083% Albuterol Albuterol 2020-11 No 3{ml_as TID Albuterol Sulfate Sulfate 2-16 _needed Sulfate (2.5 (2.5 00:00: } (2.5 MG/3ML) MG/3ML) 00 MG/3ML) 0.083% 0.083% 0.083% Albuterol Albuterol 2020-11 No 3{ml_as TID Albuterol Sulfate Sulfate 2-16 _needed Sulfate (2.5 (2.5 00:00: } (2.5 MG/3ML) MG/3ML) 00 MG/3ML) 0.083% 0.083% 0.083% Albuterol Albuterol 2020-11 No 3{ml_as TID Albuterol Sulfate Sulfate 2-16 _needed Sulfate (2.5 (2.5 00:00: } (2.5 MG/3ML) MG/3ML) 00 MG/3ML) 0.083% 0.083% 0.083% Albuterol Albuterol 2020-11 No 3{ml_as TID Albuterol Sulfate Sulfate 2-16 _needed Sulfate (2.5 (2.5 00:00: } (2.5 MG/3ML) MG/3ML) 00 MG/3ML) 0.083% 0.083% 0.083% Albuterol Albuterol 2020-11 No 3{ml_as TID Albuterol Sulfate Sulfate 2-16 _needed Sulfate (2.5 (2.5 00:00: } (2.5 MG/3ML) MG/3ML) 00 MG/3ML) 0.083% 0.083% 0.083% Albuterol Albuterol 2020-11 No 3{ml_as TID Albuterol Sulfate Sulfate 2-16 _needed Sulfate (2.5 (2.5 00:00: } (2.5 MG/3ML) MG/3ML) 00 MG/3ML) 0.083% 0.083% 0.083% Albuterol Albuterol 2020-11 No 3{ml_as TID Albuterol Sulfate Sulfate 2-16 _needed Sulfate (2.5 (2.5 00:00: } (2.5 MG/3ML) MG/3ML) 00 MG/3ML) 0.083% 0.083% 0.083% Albuterol Albuterol 2020-11 No 3{ml_as TID Albuterol Sulfate Sulfate 2-16 _needed Sulfate (2.5 (2.5 00:00: } (2.5 MG/3ML) MG/3ML) 00 MG/3ML) 0.083% 0.083% 0.083% Albuterol Albuterol 2020-11 No 3{ml_as TID Albuterol Sulfate Sulfate 2-16 _needed Sulfate (2.5 (2.5 00:00: } (2.5 MG/3ML) MG/3ML) 00 MG/3ML) 0.083% 0.083% 0.083% Albuterol Albuterol 2020-11 No 3{ml_as TID Albuterol Sulfate Sulfate 2-16 _needed Sulfate (2.5 (2.5 00:00: } (2.5 MG/3ML) MG/3ML) 00 MG/3ML) 0.083% 0.083% 0.083% Albuterol Albuterol 2020-11 No 3{ml_as TID Albuterol Sulfate Sulfate 2-16 _needed Sulfate (2.5 (2.5 00:00: } (2.5 MG/3ML) MG/3ML) 00 MG/3ML) 0.083% 0.083% 0.083% Albuterol Albuterol 2020-11 No 3{ml_as TID Albuterol Sulfate Sulfate 2-16 _needed Sulfate (2.5 (2.5 00:00: } (2.5 MG/3ML) MG/3ML) 00 MG/3ML) 0.083% 0.083% 0.083% Albuterol Albuterol 2020-11 No 3{ml_as TID Albuterol Sulfate Sulfate 2-16 _needed Sulfate (2.5 (2.5 00:00: } (2.5 MG/3ML) MG/3ML) 00 MG/3ML) 0.083% 0.083% 0.083% Ipratropium Ipratropium 2020-11- No 2.5{ml} TID Ipratropiu [place] 2-16 06-14 m [place] 0.02 % 0.02 % 00:00: 00:00 0.02 % 00 :00 Ipratropium Ipratropium 2020-11- No 2.5{ml} TID Ipratropiu [place] 2-16 06-14 m [place] 0.02 % 0.02 % 00:00: 00:00 0.02 % 00 :00 Ipratropium Ipratropium 2020-11- No 2.5{ml} TID Ipratropiu [place] 2-16 06-14 m [place] 0.02 % 0.02 % 00:00: 00:00 0.02 % 00 :00 Ipratropium Ipratropium 2020-11- No 2.5{ml} TID Ipratropiu [place] 2-16 06-14 m [place] 0.02 % 0.02 % 00:00: 00:00 0.02 % 00 :00 Ipratropium Ipratropium 2020-112- No 2.5{ml} TID Ipratropiu [place] 2-16 06-14 m [place] 0.02 % 0.02 % 00:00: 00:00 0.02 % 00 :00 Ipratropium Ipratropium 2020-11- No 2.5{ml} TID Ipratropiu [place] 2-16 06-14 m [place] 0.02 % 0.02 % 00:00: 00:00 0.02 % 00 :00 Ipratropium Ipratropium 2020-11- No 2.5{ml} TID Ipratropiu [place] 2-16 06-14 m [place] 0.02 % 0.02 % 00:00: 00:00 0.02 % 00 :00 Ipratropium Ipratropium 2020-11- No 2.5{ml} TID Ipratropiu [place] 2-16 06-14 m [place] 0.02 % 0.02 % 00:00: 00:00 0.02 % 00 :00 Ipratropium Ipratropium 2020-11- No 2.5{ml} TID Ipratropiu [place] 2-16 06-14 m [place] 0.02 % 0.02 % 00:00: 00:00 0.02 % 00 :00 Ipratropium Ipratropium 2020-11- No 2.5{ml} TID Ipratropiu [place] 2-16 06-14 m [place] 0.02 % 0.02 % 00:00: 00:00 0.02 % 00 :00 Ipratropium Ipratropium 2020-11- No 2.5{ml} TID Ipratropiu [place] 2-16 06-14 m [place] 0.02 % 0.02 % 00:00: 00:00 0.02 % 00 :00 Ipratropium Ipratropium 2020-11- No 2.5{ml} TID Ipratropiu [place] 2-16 06-14 m [place] 0.02 % 0.02 % 00:00: 00:00 0.02 % 00 :00 Potassium Potassium 2020-11- No 1{table Potassium Chloride ER Chloride ER 01-11 t_with_ Chloride 20 MEQ 20 MEQ 00:00: 00:00 food} ER 20 MEQ 00 :00 Potassium Potassium 2020-11- No 1{table Potassium Chloride ER Chloride ER 01-11 t_with_ Chloride 20 MEQ 20 MEQ 00:00: 00:00 food} ER 20 MEQ 00 :00 Potassium Potassium 2020-11- No 1{table Potassium Chloride ER Chloride ER 01-11 t_with_ Chloride 20 MEQ 20 MEQ 00:00: 00:00 food} ER 20 MEQ 00 :00 Potassium Potassium 2020-11- No 1{table Potassium Chloride ER Chloride ER 2-16 11-30 t_with_ Chloride 20 MEQ 20 MEQ 00:00: 00:00 food} ER 20 MEQ 00 :00 albuterol-i Yes Inhale 4 Un michael pratropium [...] by mouth ity of tablet 14:52: daily. [place] 21 Medical Branch simvastatin Yes 20mg Take [...] Medical tablet Branch APIXABAN Yes Take by Univer s (ELIQUIS 4-16 mouth. ity of ORAL) 14:52: [...] by mouth ity of tablet 14:52: daily. [place] 21 Medical Branch simvastatin Yes 20mg Take [...] Medical tablet Branch APIXABAN Yes Take by Univer s (ELIQUIS 4-16 mouth. ity of ORAL) 14:52: [...] by mouth ity of tablet 14:52: daily. [place] [address] Medical Branch simvastatin Yes 20mg Take 20 [...] Medical tablet Branch APIXABAN Yes Take by Univer s (ELIQUIS 4-16 mouth. ity of ORAL) 14:52: [place] 21 Medical Branch fluticasone Yes Inhale. Uni [...] by mouth ity of tablet 14:52: daily. [place] 21 Medical Branch simvastatin Yes 20mg Take [...] Medical tablet Branch APIXABAN Yes Take by Univer s (ELIQUIS 4-16 mouth. ity of ORAL) 14:52: [place] 21 Medical Branch fluticasone 0 Yes Inhale. Uni vers -vilanterol 4-16 ity [...] by mouth ity of tablet 14:52: daily. [place] 21 Medical Branch simvastatin Yes 20mg Take [...] Medical tablet Branch APIXABAN Yes Take by Univer s (ELIQUIS 4-16 mouth. ity of ORAL) 14:52: [place] 21 Medical Branch fluticasone 0 Yes Inhale. Uni vers -vilanterol 4-16 ity of (BREO 14:52: [place] ELLIPTA) 21 Medical 100-25 Branch mcg/dose DsDv amoxicillin 2021-0 Yes Univer s 500 mg 4-14 ity of capsule 00:00: Medical Branch amoxicillin 2021-0 Yes Univer s 500 mg 4-14 ity of capsule 00:00: Medical Branch amoxicillin 2021-0 Yes Univer s 500 mg 4-14 ity of capsule 00:00: Medical Branch amoxicillin 2021-0 Yes Univer s 500 mg 4-14 ity of capsule 00:00: Medical Branch amoxicillin 2021-0 Yes Univer s 500 mg 4-14 ity of capsule 00:00: Medical Branch HYDROcodone 2021-0 Yes 1{tbl} Take [...] 00 (three) Medical times Branch daily. spironolact 2021-0 Yes 25mg Take 25 mg Univers one 25 mg 4-05 by mouth 2 ity of tablet 00:00: (two) times Medical daily. Branch spironolact 2021-0 Yes 25mg Take 25 mg Univers one 25 mg 4-05 by mouth 2 ity of tablet 00:00: (two) times Medical daily. Branch spironolact 2021-0 Yes 25mg Take 25 mg Univers one 25 mg 4-05 by mouth 2 ity of tablet 00:00: (two) [place] 00 times Medical daily. Branch spironolact 0 Yes 25mg Take 25 mg Univers one 25 mg 4-05 by mouth 2 ity of tablet 00:00: (two) [place] 00 times Medical daily. Branch spironolact Yes 25mg Take 25 mg Univers one 25 mg 4-05 by mouth 2 ity of tablet 00:00: (two) [place] 00 times Medical daily. Branch Tizanidine Tizanidine 2019- No Na Shabazz 1 capsule Common HCl HCl 07-06 as needed Spirit 00:00: 00:00 - [facility] 00 :00 [facility] diazePAM 5 2021- No [id number] 5mg Take 1 Univers mg tablet 05-28 tablet by ity of 00:00: 00:00 mouth 2 [place] 00 :00 (two) Medical times Branch daily. May take both befor the MRI Chlorhexidi Chlorhexidi 2020-0 No BID Chlorhexid ne ne 2-10 ine Gluconate Gluconate 00:00: Gluconate 0.12 % 0.12 % 00 0.12 % Chlorhexidi Chlorhexidi 2020-0 No BID Chlorhexid ne ne 2-10 ine Gluconate Gluconate 00:00: Gluconate 0.12 % 0.12 % 00 0.12 % Chlorhexidi Chlorhexidi 2020-0 No BID Chlorhexid ne ne 2-10 ine Gluconate Gluconate 00:00: Gluconate 0.12 % 0.12 % 00 0.12 % Chlorhexidi Chlorhexidi 2020-0 No BID Chlorhexid ne ne 2-10 ine Gluconate Gluconate 00:00: Gluconate 0.12 % 0.12 % 00 0.12 % Chlorhexidi Chlorhexidi 2020-0 No BID Chlorhexid ne ne 2-10 ine Gluconate Gluconate 00:00: Gluconate 0.12 % 0.12 % 00 0.12 % Chlorhexidi Chlorhexidi 2020-0 No BID Chlorhexid ne ne 2-10 ine Gluconate Gluconate 00:00: Gluconate 0.12 % 0.12 % 00 0.12 % cyclobenzap 2021- No [id number] 10mg Take 1 Univers rine 10 mg 07-10 tablet by ity of tablet 00:00: 00:00 mouth 3 [place] 00 :00 (three) Medical times Branch daily. methylPREDN 2021- No [id number] Take by [facility] 7-26 mouth ity of (MEDROL, 00:00: 00:00 SEE-INSTRU Te mike TIMOTHY,) 4 mg 00 :00 CTIONS. Medica l tablets follow Branch package directions Estradiol Estradiol No Estradiol 0.1 MG/GM 0.1 MG/GM 1-22 0.1 MG/GM 00:00: 00 Estradiol Estradiol No Estradiol 0.1 MG/GM 0.1 MG/GM 1-22 0.1 MG/GM 00:00: 00 Estradiol Estradiol No Estradiol 0.1 MG/GM 0.1 MG/GM 1-22 0.1 MG/GM 00:00: 00 Estradiol Estradiol No Estradiol 0.1 MG/GM 0.1 MG/GM 1-22 0.1 MG/GM 00:00: 00 Estradiol Estradiol No Estradiol 0.1 MG/GM 0.1 MG/GM 1-22 0.1 MG/GM 00:00: 00 Estradiol Estradiol No Estradiol 0.1 MG/GM 0.1 MG/GM 1-22 0.1 MG/GM 00:00: 00 levoFLOXaci 2016-11- No Unive rs n 500 [...] ity of 00:00: [place] 00 Medical Branch phenazopyri 2017-0 Yes 200mg Take 2 Uni [...] Branch daily as needed (bladder pain). phenazopyri 2016-0 Yes 200mg Take 2 Uni vers dine 8-10 tablets by ity of (PYRIDIUM) 00:00: [place] 3 [place] 100 mg 00 (three) Medical tablet times Branch daily as needed (bladder pain). phenazopyri 2017- Yes 200mg Take 2 Uni [...] FOOD AND DRINK PLENTY OF WATER tiZANidine 2015- Yes 4mg Take 4 mg Un michael [...] ity of 4 mg tablet 00:00: (two) [place] 00 times Medical daily. Branch VOLTAREN 1 Yes 1{dose} Apply 1 U nivers % gel 4-13 Dose to ity of 00:00: area(s) [place] 00 every Medical evening. Branch potassium 2015- Yes 10meq Take 10 Univ ers chloride 4-13 mEq by ity of (K-DUR) 10 00:00: mouth [place] mEq CR 00 daily. Medical tablet Branch VOLTAREN 1 Yes 1{dose} Apply 1 U nivers % gel 4-13 Dose to ity of 00:00: area(s) [place] 00 every Medical evening. Branch potassium Yes 10meq Take 10 Univ ers chloride 4-13 mEq by ity of (K-DUR) 10 00:00: mouth [place] mEq CR 00 daily. Medical tablet Branch VOLTAREN 1 Yes 1{dose} Apply 1 U nivers % gel 4-13 Dose to ity of 00:00: area(s) [place] 00 every Medical evening. Branch potassium 2015- Yes 10meq Take 10 Univ ers chloride 4-13 mEq by ity of (K-DUR) 10 00:00: mouth [place] mEq CR 00 daily. Medical tablet Branch VOLTAREN 1 Yes 1{dose} Apply 1 U nivers % gel 4-13 Dose to ity of 00:00: area(s) [place] 00 every Medical evening. Branch potassium Yes 10meq Take 10 Univ ers chloride 4-13 mEq by ity of (K-DUR) 10 00:00: mouth [place] mEq CR 00 daily. Medical tablet Branch VOLTAREN 1 Yes 1{dose} Apply 1 U nivers % gel 4-13 Dose to ity of 00:00: area(s) [place] 00 every Medical evening. Branch potassium Yes [...] 00 :00 times Medical capsule daily. Branch Flovent Flovent No 1{puff} BID Flovent Diskus 100 Diskus 100 Diskus 100 MCG/BLIST MCG/BLIST MCG/BLIST HYDROcodone HYDROcodone No 1{table QID HYDROcodon -Acetaminop -Acetaminop t_as_ne e-Acetamin hen 10-325 hen 10-325 eded} ophen MG MG 10-325 MG Aspir-81 81 Aspir-81 81 No 1{table QD Aspir-81 MG MG t} 81 MG Combivent Combivent No 1{puff} QID Combivent Respimat Respimat Respimat 20-100 20-100 20-100 MCG/ACT MCG/ACT MCG/ACT Montelukast Montelukast No Montelukas Sodium 10 Sodium 10 t Sodium MG MG 10 MG Ferrous Ferrous No 1{table QD Ferrous Sulfate 325 Sulfate 325 t} Sulfate (65 Fe) MG (65 Fe) MG 325 (65 Fe) MG Furosemide Furosemide No Furosemide 40 MG 40 MG 40 MG tiZANidine tiZANidine No 1{table QD tiZANidine HCl 2 MG HCl 2 MG t_at_be HCl 2 MG dtime_a s_neede d} ProAir HFA ProAir HFA No 2{puffs QID ProAir HFA 108 (90 108 (90 _as_nee 108 (90 Base) Base) ded} Base) MCG/ACT MCG/ACT MCG/ACT Neurontin Neurontin No 1{table QD Neurontin 600 MG 600 MG t} 600 MG cloNIDine cloNIDine No 1{table cloNIDine HCl 0.2 MG HCl 0.2 MG t} HCl 0.2 MG Potassium Potassium No Potassium Chloride Chloride Chloride Aleuxs ER 20 Alexus ER 20 Alexus ER 20 MEQ MEQ MEQ Albuterol Albuterol No 1{ml_as QID Albuterol Sulfate (5 Sulfate (5 _needed Sulfate (5 MG/ML) 0.5% MG/ML) 0.5% } MG/ML) 0.5% Amiodarone Amiodarone No 1{table QD Amiodarone HCl 200 MG HCl 200 MG t} HCl 200 MG Rosuvastati Rosuvastati No 1{table Rosuvastat n Calcium n Calcium t} in Calcium 10 MG 10 MG 10 MG Spironolact Spironolact No 1{table QD Spironolac one 50 MG one 50 MG t} tone 50 MG Rosuvastati Rosuvastati No Rosuvastat n Calcium n Calcium in Calcium 10 MG 10 MG 10 MG Cholestyram Cholestyram No Cholestyra ine 4 GM ine 4 GM mine 4 GM Omeprazole Omeprazole No 1{capsu QD Omeprazole 40 MG 40 MG le} 40 MG Coreg 6.25 Coreg 6.25 No BID Coreg 6.25 MG MG MG Eliquis 5 Eliquis 5 No Eliquis 5 MG MG MG Flovent Flovent No 1{puff} BID Flovent Diskus 100 Diskus 100 Diskus 100 MCG/BLIST MCG/BLIST MCG/BLIST HYDROcodone HYDROcodone No 1{table QID HYDROcodon -Acetaminop -Acetaminop t_as_ne e-Acetamin hen 10-325 hen 10-325 eded} ophen MG MG 10-325 MG Aspir-81 81 Aspir-81 81 No 1{table QD Aspir-81 MG MG t} 81 MG Combivent Combivent No 1{puff} QID Combivent Respimat Respimat Respimat 20-100 20-100 20-100 MCG/ACT MCG/ACT MCG/ACT Montelukast Montelukast No Montelukas Sodium 10 Sodium 10 t Sodium MG MG 10 MG Ferrous Ferrous No 1{table QD Ferrous Sulfate 325 Sulfate 325 t} Sulfate (65 Fe) MG (65 Fe) MG 325 (65 Fe) MG Furosemide Furosemide No Furosemide 40 MG 40 MG 40 MG tiZANidine tiZANidine No 1{table QD tiZANidine HCl 2 MG HCl 2 MG t_at_be HCl 2 MG dtime_a s_neede d} ProAir HFA ProAir HFA No 2{puffs QID ProAir HFA 108 (90 108 (90 _as_nee 108 (90 Base) Base) ded} Base) MCG/ACT MCG/ACT MCG/ACT Neurontin Neurontin No 1{table QD Neurontin 600 MG 600 MG t} 600 MG cloNIDine cloNIDine No 1{table cloNIDine HCl 0.2 MG HCl 0.2 MG t} HCl 0.2 MG Potassium Potassium No Potassium Chloride Chloride Chloride Alexus ER 20 Alexus ER 20 Alexus ER 20 MEQ MEQ MEQ Albuterol Albuterol No 1{ml_as QID Albuterol Sulfate (5 Sulfate (5 _needed Sulfate (5 MG/ML) 0.5% MG/ML) 0.5% } MG/ML) 0.5% Amiodarone Amiodarone No 1{table QD Amiodarone HCl 200 MG HCl 200 MG t} HCl 200 MG Rosuvastati Rosuvastati No 1{table Rosuvastat n Calcium n Calcium t} in Calcium 10 MG 10 MG 10 MG Spironolact Spironolact No 1{table QD Spironolac one 50 MG one 50 MG t} tone 50 MG Rosuvastati Rosuvastati No Rosuvastat n Calcium n Calcium in Calcium 10 MG 10 MG 10 MG Cholestyram Cholestyram No Cholestyra ine 4 GM ine 4 GM mine 4 GM Omeprazole Omeprazole No 1{capsu QD Omeprazole 40 MG 40 MG le} 40 MG Coreg 6.25 Coreg 6.25 No BID Coreg 6.25 MG MG MG Flovent Flovent No 1{puff} BID Flovent Diskus 100 Diskus 100 Diskus 100 MCG/BLIST MCG/BLIST MCG/BLIST Albuterol Albuterol No 1{ml_as QID Albuterol Sulfate (5 Sulfate (5 _needed Sulfate (5 MG/ML) 0.5% MG/ML) 0.5% } MG/ML) 0.5% tiZANidine tiZANidine No 1{table QD tiZANidine HCl 2 MG HCl 2 MG t_at_be HCl 2 MG dtime_a s_neede d} Ferrous Ferrous No 1{table QD Ferrous Sulfate 325 Sulfate 325 t} Sulfate (65 Fe) MG (65 Fe) MG 325 (65 Fe) MG Losartan Losartan No Losartan Potassium Potassium Potassium Aspir-81 81 Aspir-81 81 No 1{table QD Aspir-81 MG MG t} 81 MG Amiodarone Amiodarone No 1{table QD Amiodarone HCl 200 MG HCl 200 MG t} HCl 200 MG Cholestyram Cholestyram No Cholestyra ine 4 GM ine 4 GM mine 4 GM Rosuvastati Rosuvastati No 1{table Rosuvastat n Calcium n Calcium t} in Calcium 10 MG 10 MG 10 MG ProAir HFA ProAir HFA No 2{puffs QID ProAir HFA 108 (90 108 (90 _as_nee 108 (90 Base) Base) ded} Base) MCG/ACT MCG/ACT MCG/ACT Eliquis 5 Eliquis 5 No Eliquis 5 MG MG MG Coreg 6.25 Coreg 6.25 No BID Coreg 6.25 MG MG MG Potassium Potassium No Potassium Chloride Chloride Chloride Alexus ER 20 Alexus ER 20 Alexus ER 20 MEQ MEQ MEQ Omeprazole Omeprazole No 1{capsu QD Omeprazole 40 MG 40 MG le} 40 MG Combivent Combivent No 1{puff} QID Combivent Respimat Respimat Respimat 20-100 20-100 20-100 MCG/ACT MCG/ACT MCG/ACT HYDROcodone HYDROcodone No 1{table QID HYDROcodon -Acetaminop -Acetaminop t_as_ne e-Acetamin hen 10-325 hen 10-325 eded} ophen MG MG 10-325 MG Montelukast Montelukast No Montelukas Sodium 10 Sodium 10 t Sodium MG MG 10 MG Neurontin Neurontin No 1{table QD Neurontin 600 MG 600 MG t} 600 MG cloNIDine cloNIDine No 1{table cloNIDine HCl 0.2 MG HCl 0.2 MG t} HCl 0.2 MG Rosuvastati Rosuvastati No Rosuvastat n Calcium n Calcium in Calcium 10 MG 10 MG 10 MG Spironolact Spironolact No 1{table QD Spironolac one 50 MG one 50 MG t} tone 50 MG Furosemide Furosemide No Furosemide 40 MG 40 MG 40 MG Flovent Flovent No 1{puff} BID Flovent Diskus 100 Diskus 100 Diskus 100 MCG/BLIST MCG/BLIST MCG/BLIST tiZANidine tiZANidine No 1{table QD tiZANidine HCl 2 MG HCl 2 MG t_at_be HCl 2 MG dtime_a s_neede d} Albuterol Albuterol No 1{ml_as QID Albuterol Sulfate (5 Sulfate (5 _needed Sulfate (5 MG/ML) 0.5% MG/ML) 0.5% } MG/ML) 0.5% Ferrous Ferrous No 1{table QD Ferrous Sulfate 325 Sulfate 325 t} Sulfate (65 Fe) MG (65 Fe) MG 325 (65 Fe) MG Aspir-81 81 Aspir-81 81 No 1{table QD Aspir-81 MG MG t} 81 MG Amiodarone Amiodarone No 1{table QD Amiodarone HCl 200 MG HCl 200 MG t} HCl 200 MG Losartan Losartan No Losartan Potassium Potassium Potassium Rosuvastati Rosuvastati No 1{table Rosuvastat n Calcium n Calcium t} in Calcium 10 MG 10 MG 10 MG ProAir HFA ProAir HFA No 2{puffs QID ProAir HFA 108 (90 108 (90 _as_nee 108 (90 Base) Base) ded} Base) MCG/ACT MCG/ACT MCG/ACT Eliquis 5 Eliquis 5 No Eliquis 5 MG MG MG Coreg 6.25 Coreg 6.25 No BID Coreg 6.25 MG MG MG HYDROcodone HYDROcodone No 1{table QID HYDROcodon -Acetaminop -Acetaminop t_as_ne e-Acetamin hen 10-325 hen 10-325 eded} ophen MG MG 10-325 MG Omeprazole Omeprazole No 1{capsu QD Omeprazole 40 MG 40 MG le} 40 MG Combivent Combivent No 1{puff} QID Combivent Respimat Respimat Respimat 20-100 20-100 20-100 MCG/ACT MCG/ACT MCG/ACT Cholestyram Cholestyram No Cholestyra ine 4 GM ine 4 GM mine 4 GM Potassium Potassium No Potassium Chloride Chloride Chloride Alexus ER 20 Alexus ER 20 Alexus ER 20 MEQ MEQ MEQ Montelukast Montelukast No Montelukas Sodium 10 Sodium 10 t Sodium MG MG 10 MG Neurontin Neurontin No 1{table QD Neurontin 600 MG 600 MG t} 600 MG cloNIDine cloNIDine No 1{table cloNIDine HCl 0.2 MG HCl 0.2 MG t} HCl 0.2 MG Rosuvastati Rosuvastati No Rosuvastat n Calcium n Calcium in Calcium 10 MG 10 MG 10 MG Spironolact Spironolact No 1{table QD Spironolac one 50 MG one 50 MG t} tone 50 MG Furosemide Furosemide No Furosemide 40 MG 40 MG 40 MG Rosuvastati Rosuvastati No Rosuvastat n Calcium n Calcium in Calcium 10 MG 10 MG 10 MG Omeprazole Omeprazole No 1{capsu QD Omeprazole 40 MG 40 MG le} 40 MG Amiodarone Amiodarone No 1{table QD Amiodarone HCl 200 MG HCl 200 MG t} HCl 200 MG Losartan Losartan No Losartan Potassium Potassium Potassium HYDROcodone HYDROcodone No 1{table QID HYDROcodon -Acetaminop -Acetaminop t_as_ne e-Acetamin hen 10-325 hen 10-325 eded} ophen MG MG 10-325 MG Albuterol Albuterol No 1{ml_as QID Albuterol Sulfate (5 Sulfate (5 _needed Sulfate (5 MG/ML) 0.5% MG/ML) 0.5% } MG/ML) 0.5% Cholestyram Cholestyram No Cholestyra ine 4 GM ine 4 GM mine 4 GM Rosuvastati Rosuvastati No 1{table Rosuvastat n Calcium n Calcium t} in Calcium 10 MG 10 MG 10 MG Eliquis 5 Eliquis 5 No Eliquis 5 MG MG MG ProAir HFA ProAir HFA No 2{puffs QID ProAir HFA 108 (90 108 (90 _as_nee 108 (90 Base) Base) ded} Base) MCG/ACT MCG/ACT MCG/ACT Furosemide Furosemide No Furosemide 40 MG 40 MG 40 MG cloNIDine cloNIDine No 1{table cloNIDine HCl 0.2 MG HCl 0.2 MG t} HCl 0.2 MG Flovent Flovent No 1{puff} BID Flovent Diskus 100 Diskus 100 Diskus 100 MCG/BLIST MCG/BLIST MCG/BLIST Combivent Combivent No 1{puff} QID Combivent Respimat Respimat Respimat 20-100 20-100 20-100 MCG/ACT MCG/ACT MCG/ACT Ferrous Ferrous No 1{table QD Ferrous Sulfate 325 Sulfate 325 t} Sulfate (65 Fe) MG (65 Fe) MG 325 (65 Fe) MG Montelukast Montelukast No Montelukas Sodium 10 Sodium 10 t Sodium MG MG 10 MG Neurontin Neurontin No 1{table QD Neurontin 600 MG 600 MG t} 600 MG Aspir-81 81 Aspir-81 81 No 1{table QD Aspir-81 MG MG t} 81 MG tiZANidine tiZANidine No 1{table QD tiZANidine HCl 2 MG HCl 2 MG t_at_be HCl 2 MG dtime_a s_neede d} Potassium Potassium No Potassium Chloride Chloride Chloride Alexus ER 20 Alexus ER 20 Alexus ER 20 MEQ MEQ MEQ Coreg 6.25 Coreg 6.25 No BID Coreg 6.25 MG MG MG Spironolact Spironolact No 1{table QD Spironolac one 50 MG one 50 MG t} tone 50 MG tiZANidine tiZANidine No 1{table QD tiZANidine HCl 2 MG HCl 2 MG t_at_be HCl 2 MG dtime_a s_neede d} Eliquis 5 Eliquis 5 No Eliquis 5 MG MG MG Potassium Potassium No Potassium Chloride Chloride Chloride Alexus ER 20 Alexus ER 20 Alexus ER 20 MEQ MEQ MEQ Losartan Losartan No Losartan Potassium Potassium Potassium Aspir-81 81 Aspir-81 81 No 1{table QD Aspir-81 MG MG t} 81 MG Montelukast Montelukast No Montelukas Sodium 10 Sodium 10 t Sodium MG MG 10 MG Albuterol Albuterol No 1{ml_as QID Albuterol Sulfate (5 Sulfate (5 _needed Sulfate (5 MG/ML) 0.5% MG/ML) 0.5% } MG/ML) 0.5% Omeprazole Omeprazole No 1{capsu QD Omeprazole 40 MG 40 MG le} 40 MG Neurontin Neurontin No 1{table QD Neurontin 600 MG 600 MG t} 600 MG Coreg 6.25 Coreg 6.25 No BID Coreg 6.25 MG MG MG cloNIDine cloNIDine No 1{table cloNIDine HCl 0.2 MG HCl 0.2 MG t} HCl 0.2 MG Ferrous Ferrous No 1{table QD Ferrous Sulfate 325 Sulfate 325 t} Sulfate (65 Fe) MG (65 Fe) MG 325 (65 Fe) MG Amiodarone Amiodarone No 1{table QD Amiodarone HCl 200 MG HCl 200 MG t} HCl 200 MG ProAir HFA ProAir HFA No 2{puffs QID ProAir HFA 108 (90 108 (90 _as_nee 108 (90 Base) Base) ded} Base) MCG/ACT MCG/ACT MCG/ACT Furosemide Furosemide No Furosemide 40 MG 40 MG 40 MG Spironolact Spironolact No 1{table QD Spironolac one 50 MG one 50 MG t} tone 50 MG Rosuvastati Rosuvastati No 1{table Rosuvastat n Calcium n Calcium t} in Calcium 10 MG 10 MG 10 MG Combivent Combivent No 1{puff} QID Combivent Respimat Respimat Respimat 20-100 20-100 20-100 MCG/ACT MCG/ACT MCG/ACT Cholestyram Cholestyram No Cholestyra ine 4 GM ine 4 GM mine 4 GM Flovent Flovent No 1{puff} BID Flovent Diskus 100 Diskus 100 Diskus 100 MCG/BLIST MCG/BLIST MCG/BLIST HYDROcodone HYDROcodone No 1{table QID HYDROcodon -Acetaminop -Acetaminop t_as_ne e-Acetamin hen 10-325 hen 10-325 eded} ophen MG MG 10-325 MG tiZANidine tiZANidine No 1{table QD tiZANidine HCl 2 MG HCl 2 MG t_at_be HCl 2 MG dtime_a s_neede d} Eliquis 5 Eliquis 5 No Eliquis 5 MG MG MG Potassium Potassium No Potassium Chloride Chloride Chloride Alexus ER 20 Alexus ER 20 Alexus ER 20 MEQ MEQ MEQ Losartan Losartan No Losartan Potassium Potassium Potassium Aspir-81 81 Aspir-81 81 No 1{table QD Aspir-81 MG MG t} 81 MG Montelukast Montelukast No Montelukas Sodium 10 Sodium 10 t Sodium MG MG 10 MG Albuterol Albuterol No 1{ml_as QID Albuterol Sulfate (5 Sulfate (5 _needed Sulfate (5 MG/ML) 0.5% MG/ML) 0.5% } MG/ML) 0.5% Omeprazole Omeprazole No 1{capsu QD Omeprazole 40 MG 40 MG le} 40 MG Neurontin Neurontin No 1{table QD Neurontin 600 MG 600 MG t} 600 MG Coreg 6.25 Coreg 6.25 No BID Coreg 6.25 MG MG MG cloNIDine cloNIDine No 1{table cloNIDine HCl 0.2 MG HCl 0.2 MG t} HCl 0.2 MG Ferrous Ferrous No 1{table QD Ferrous Sulfate 325 Sulfate 325 t} Sulfate (65 Fe) MG (65 Fe) MG 325 (65 Fe) MG Amiodarone Amiodarone No 1{table QD Amiodarone HCl 200 MG HCl 200 MG t} HCl 200 MG ProAir HFA ProAir HFA No 2{puffs QID ProAir HFA 108 (90 108 (90 _as_nee 108 (90 Base) Base) ded} Base) MCG/ACT MCG/ACT MCG/ACT Furosemide Furosemide No Furosemide 40 MG 40 MG 40 MG Spironolact Spironolact No 1{table QD Spironolac one 50 MG one 50 MG t} tone 50 MG Rosuvastati Rosuvastati No 1{table Rosuvastat n Calcium n Calcium t} in Calcium 10 MG 10 MG 10 MG Combivent Combivent No 1{puff} QID Combivent Respimat Respimat Respimat 20-100 20-100 20-100 MCG/ACT MCG/ACT MCG/ACT Cholestyram Cholestyram No Cholestyra ine 4 GM ine 4 GM mine 4 GM Flovent Flovent No 1{puff} BID Flovent Diskus 100 Diskus 100 Diskus 100 MCG/BLIST MCG/BLIST MCG/BLIST HYDROcodone HYDROcodone No 1{table QID HYDROcodon -Acetaminop -Acetaminop t_as_ne e-Acetamin hen 10-325 hen 10-325 eded} ophen MG MG 10-325 MG tiZANidine tiZANidine No 1{table QD tiZANidine HCl 2 MG HCl 2 MG t_at_be HCl 2 MG dtime_a s_neede d} Eliquis 5 Eliquis 5 No Eliquis 5 MG MG MG Potassium Potassium No Potassium Chloride Chloride Chloride Alexus ER 20 Alexus ER 20 Alexus ER 20 MEQ MEQ MEQ Losartan Losartan No Losartan Potassium Potassium Potassium Aspir-81 81 Aspir-81 81 No 1{table QD Aspir-81 MG MG t} 81 MG Montelukast Montelukast No Montelukas Sodium 10 Sodium 10 t Sodium MG MG 10 MG Albuterol Albuterol No 1{ml_as QID Albuterol Sulfate (5 Sulfate (5 _needed Sulfate (5 MG/ML) 0.5% MG/ML) 0.5% } MG/ML) 0.5% Omeprazole Omeprazole No 1{capsu QD Omeprazole 40 MG 40 MG le} 40 MG Neurontin Neurontin No 1{table QD Neurontin 600 MG 600 MG t} 600 MG Coreg 6.25 Coreg 6.25 No BID Coreg 6.25 MG MG MG cloNIDine cloNIDine No 1{table cloNIDine HCl 0.2 MG HCl 0.2 MG t} HCl 0.2 MG Ferrous Ferrous No 1{table QD Ferrous Sulfate 325 Sulfate 325 t} Sulfate (65 Fe) MG (65 Fe) MG 325 (65 Fe) MG Amiodarone Amiodarone No 1{table QD Amiodarone HCl 200 MG HCl 200 MG t} HCl 200 MG ProAir HFA ProAir HFA No 2{puffs QID ProAir HFA 108 (90 108 (90 _as_nee 108 (90 Base) Base) ded} Base) MCG/ACT MCG/ACT MCG/ACT Furosemide Furosemide No Furosemide 40 MG 40 MG 40 MG Spironolact Spironolact No 1{table QD Spironolac one 50 MG one 50 MG t} tone 50 MG Rosuvastati Rosuvastati No 1{table Rosuvastat n Calcium n Calcium t} in Calcium 10 MG 10 MG 10 MG Combivent Combivent No 1{puff} QID Combivent Respimat Respimat Respimat 20-100 20-100 20-100 MCG/ACT MCG/ACT MCG/ACT Cholestyram Cholestyram No Cholestyra ine 4 GM ine 4 GM mine 4 GM Flovent Flovent No 1{puff} BID Flovent Diskus 100 Diskus 100 Diskus 100 MCG/BLIST MCG/BLIST MCG/BLIST HYDROcodone HYDROcodone No 1{table QID HYDROcodon -Acetaminop -Acetaminop t_as_ne e-Acetamin hen 10-325 hen 10-325 eded} ophen MG MG 10-325 MG Rosuvastati Rosuvastati No 1{table Rosuvastat n Calcium n Calcium t} in Calcium 10 MG 10 MG 10 MG Flovent Flovent No 1{puff} BID Flovent Diskus 100 Diskus 100 Diskus 100 MCG/BLIST MCG/BLIST MCG/BLIST Cholestyram Cholestyram No Cholestyra ine 4 GM ine 4 GM mine 4 GM Montelukast Montelukast No Montelukas Sodium 10 Sodium 10 t Sodium MG MG 10 MG Spironolact Spironolact No 1{table QD Spironolac one 50 MG one 50 MG t} tone 50 MG ProAir HFA ProAir HFA No 2{puffs QID ProAir HFA 108 (90 108 (90 _as_nee 108 (90 Base) Base) ded} Base) MCG/ACT MCG/ACT MCG/ACT cloNIDine cloNIDine No 1{table cloNIDine HCl 0.2 MG HCl 0.2 MG t} HCl 0.2 MG Losartan Losartan No Losartan Potassium Potassium Potassium Coreg 6.25 Coreg 6.25 No BID Coreg 6.25 MG MG MG Neurontin Neurontin No 1{table QD Neurontin 600 MG 600 MG t} 600 MG Albuterol Albuterol No 1{ml_as QID Albuterol Sulfate (5 Sulfate (5 _needed Sulfate (5 MG/ML) 0.5% MG/ML) 0.5% } MG/ML) 0.5% Ferrous Ferrous No 1{table QD Ferrous Sulfate 325 Sulfate 325 t} Sulfate (65 Fe) MG (65 Fe) MG 325 (65 Fe) MG HYDROcodone HYDROcodone No 1{table QID HYDROcodon -Acetaminop -Acetaminop t_as_ne e-Acetamin hen 10-325 hen 10-325 eded} ophen MG MG 10-325 MG Furosemide Furosemide No 1{table BID Furosemide 80 MG 80 MG t} 80 MG Potassium Potassium No Potassium Chloride Chloride Chloride Alexus ER 20 Alexus ER 20 Alexus ER 20 MEQ MEQ MEQ Amiodarone Amiodarone No 1{table QD Amiodarone HCl 200 MG HCl 200 MG t} HCl 200 MG Aspir-81 81 Aspir-81 81 No 1{table QD Aspir-81 MG MG t} 81 MG Omeprazole Omeprazole No 1{capsu QD Omeprazole 40 MG 40 MG le} 40 MG tiZANidine tiZANidine No 1{table QD tiZANidine HCl 2 MG HCl 2 MG t_at_be HCl 2 MG dtime_a s_neede d} Eliquis 5 Eliquis 5 No Eliquis 5 MG MG MG Combivent Combivent No 1{puff} QID Combivent Respimat Respimat Respimat 20-100 20-100 20-100 MCG/ACT MCG/ACT MCG/ACT cloNIDine cloNIDine No 1{table cloNIDine HCl 0.2 MG HCl 0.2 MG t} HCl 0.2 MG Omeprazole Omeprazole No 1{capsu QD Omeprazole 40 MG 40 MG le} 40 MG Albuterol Albuterol No 1{ml_as QID Albuterol Sulfate (5 Sulfate (5 _needed Sulfate (5 MG/ML) 0.5% MG/ML) 0.5% } MG/ML) 0.5% Losartan Losartan No Losartan Potassium Potassium Potassium Potassium Potassium No Potassium Chloride Chloride Chloride Alexus ER 20 Alexus ER 20 Alexus ER 20 MEQ MEQ MEQ Flovent Flovent No 1{puff} BID Flovent Diskus 100 Diskus 100 Diskus 100 MCG/BLIST MCG/BLIST MCG/BLIST ProAir HFA ProAir HFA No 2{puffs QID ProAir HFA 108 (90 108 (90 _as_nee 108 (90 Base) Base) ded} Base) MCG/ACT MCG/ACT MCG/ACT Aspir-81 81 Aspir-81 81 No 1{table QD Aspir-81 MG MG t} 81 MG Furosemide Furosemide No 1{table BID Furosemide 80 MG 80 MG t} 80 MG HYDROcodone HYDROcodone No 1{table QID HYDROcodon -Acetaminop -Acetaminop t_as_ne e-Acetamin hen 10-325 hen 10-325 eded} ophen MG MG 10-325 MG Eliquis 5 Eliquis 5 No Eliquis 5 MG MG MG Spironolact Spironolact No 1{table QD Spironolac one 50 MG one 50 MG t} tone 50 MG Coreg 6.25 Coreg 6.25 No BID Coreg 6.25 MG MG MG Ferrous Ferrous No 1{table QD Ferrous Sulfate 325 Sulfate 325 t} Sulfate (65 Fe) MG (65 Fe) MG 325 (65 Fe) MG Cholestyram Cholestyram No Cholestyra ine 4 GM ine 4 GM mine 4 GM tiZANidine tiZANidine No 1{table QD tiZANidine HCl 2 MG HCl 2 MG t_at_be HCl 2 MG dtime_a s_neede d} metFORMIN metFORMIN No QD metFORMIN HCl ER 500 HCl ER 500 HCl ER 500 MG MG MG Neurontin Neurontin No 1{table QD Neurontin 600 MG 600 MG t} 600 MG Combivent Combivent No 1{puff} QID Combivent Respimat Respimat Respimat 20-100 20-100 20-100 MCG/ACT MCG/ACT MCG/ACT Montelukast Montelukast No Montelukas Sodium 10 Sodium 10 t Sodium MG MG 10 MG Amiodarone Amiodarone No 1{table QD Amiodarone HCl 200 MG HCl 200 MG t} HCl 200 MG Rosuvastati Rosuvastati No 1{table Rosuvastat n Calcium n Calcium t} in Calcium 10 MG 10 MG 10 MG cloNIDine cloNIDine No 1{table cloNIDine HCl 0.2 MG HCl 0.2 MG t} HCl 0.2 MG Omeprazole Omeprazole No 1{capsu QD Omeprazole 40 MG 40 MG le} 40 MG Albuterol Albuterol No 1{ml_as QID Albuterol Sulfate (5 Sulfate (5 _needed Sulfate (5 MG/ML) 0.5% MG/ML) 0.5% } MG/ML) 0.5% Losartan Losartan No Losartan Potassium Potassium Potassium Furosemide Furosemide No 1{table BID Furosemide 80 MG 80 MG t} 80 MG Flovent Flovent No 1{puff} BID Flovent Diskus 100 Diskus 100 Diskus 100 MCG/BLIST MCG/BLIST MCG/BLIST ProAir HFA ProAir HFA No 2{puffs QID ProAir HFA 108 (90 108 (90 _as_nee 108 (90 Base) Base) ded} Base) MCG/ACT MCG/ACT MCG/ACT Aspir-81 81 Aspir-81 81 No 1{table QD Aspir-81 MG MG t} 81 MG Combivent Combivent No 1{puff} QID Combivent Respimat Respimat Respimat 20-100 20-100 20-100 MCG/ACT MCG/ACT MCG/ACT HYDROcodone HYDROcodone No 1{table QID HYDROcodon -Acetaminop -Acetaminop t_as_ne e-Acetamin hen 10-325 hen 10-325 eded} ophen MG MG 10-325 MG Eliquis 5 Eliquis 5 No Eliquis 5 MG MG MG Spironolact Spironolact No 1{table QD Spironolac one 50 MG one 50 MG t} tone 50 MG Coreg 6.25 Coreg 6.25 No BID Coreg 6.25 MG MG MG metFORMIN metFORMIN No metFORMIN HCl ER 500 HCl ER 500 HCl ER 500 MG MG MG Cholestyram Cholestyram No Cholestyra ine 4 GM ine 4 GM mine 4 GM Montelukast Montelukast No Montelukas Sodium 10 Sodium 10 t Sodium MG MG 10 MG Neurontin Neurontin No 1{table QD Neurontin 600 MG 600 MG t} 600 MG tiZANidine tiZANidine No 1{table QD tiZANidine HCl 2 MG HCl 2 MG t_at_be HCl 2 MG dtime_a s_neede d} Potassium Potassium No Potassium Chloride Chloride Chloride Alexus ER 20 Alexus ER 20 Alexus ER 20 MEQ MEQ MEQ Amiodarone Amiodarone No 1{table QD Amiodarone HCl 200 MG HCl 200 MG t} HCl 200 MG Ferrous Ferrous No 1{table QD Ferrous Sulfate 325 Sulfate 325 t} Sulfate (65 Fe) MG (65 Fe) MG 325 (65 Fe) MG Rosuvastati Rosuvastati No 1{table Rosuvastat n Calcium n Calcium t} in Calcium 10 MG 10 MG 10 MG Potassium Potassium Yes Na Shabazz 1 capsule Common Chloride ER Chloride ER with food [facility] cloNIDine cloNIDine No 1{table cloNIDine HCl 0.2 MG HCl 0.2 MG t} HCl 0.2 MG Omeprazole Omeprazole No 1{capsu QD Omeprazole 40 MG 40 MG le} 40 MG Albuterol Albuterol No 1{ml_as QID Albuterol Sulfate (5 Sulfate (5 _needed Sulfate (5 MG/ML) 0.5% MG/ML) 0.5% } MG/ML) 0.5% Losartan Losartan No Losartan Potassium Potassium Potassium Furosemide Furosemide No 1{table BID Furosemide 80 MG 80 MG t} 80 MG Flovent Flovent No 1{puff} BID Flovent Diskus 100 Diskus 100 Diskus 100 MCG/BLIST MCG/BLIST MCG/BLIST ProAir HFA ProAir HFA No 2{puffs QID ProAir HFA 108 (90 108 (90 _as_nee 108 (90 Base) Base) ded} Base) MCG/ACT MCG/ACT MCG/ACT Aspir-81 81 Aspir-81 81 No 1{table QD Aspir-81 MG MG t} 81 MG Combivent Combivent No 1{puff} QID Combivent Respimat Respimat Respimat 20-100 20-100 20-100 MCG/ACT MCG/ACT MCG/ACT HYDROcodone HYDROcodone No 1{table QID HYDROcodon -Acetaminop -Acetaminop t_as_ne e-Acetamin hen 10-325 hen 10-325 eded} ophen MG MG 10-325 MG Eliquis 5 Eliquis 5 No Eliquis 5 MG MG MG Spironolact Spironolact No 1{table QD Spironolac one 50 MG one 50 MG t} tone 50 MG Coreg 6.25 Coreg 6.25 No BID Coreg 6.25 MG MG MG metFORMIN metFORMIN No metFORMIN HCl ER 500 HCl ER 500 HCl ER 500 MG MG MG Cholestyram Cholestyram No Cholestyra ine 4 GM ine 4 GM mine 4 GM Montelukast Montelukast No Montelukas Sodium 10 Sodium 10 t Sodium MG MG 10 MG Neurontin Neurontin No 1{table QD Neurontin 600 MG 600 MG t} 600 MG tiZANidine tiZANidine No 1{table QD tiZANidine HCl 2 MG HCl 2 MG t_at_be HCl 2 MG dtime_a s_neede d} Potassium Potassium No Potassium Chloride Chloride Chloride Alexus ER 20 Alexus ER 20 Alexus ER 20 MEQ MEQ MEQ Amiodarone Amiodarone No 1{table QD Amiodarone HCl 200 MG HCl 200 MG t} HCl 200 MG Ferrous Ferrous No 1{table QD Ferrous Sulfate 325 Sulfate 325 t} Sulfate (65 Fe) MG (65 Fe) MG 325 (65 Fe) MG Rosuvastati Rosuvastati No 1{table Rosuvastat n Calcium n Calcium t} in Calcium 10 MG 10 MG 10 MG cloNIDine cloNIDine No 1{table cloNIDine HCl 0.2 MG HCl 0.2 MG t} HCl 0.2 MG Omeprazole Omeprazole No 1{capsu QD Omeprazole 40 MG 40 MG le} 40 MG Albuterol Albuterol No 1{ml_as QID Albuterol Sulfate (5 Sulfate (5 _needed Sulfate (5 MG/ML) 0.5% MG/ML) 0.5% } MG/ML) 0.5% Losartan Losartan No Losartan Potassium Potassium Potassium Furosemide Furosemide No 1{table BID Furosemide 80 MG 80 MG t} 80 MG Flovent Flovent No 1{puff} BID Flovent Diskus 100 Diskus 100 Diskus 100 MCG/BLIST MCG/BLIST MCG/BLIST ProAir HFA ProAir HFA No 2{puffs QID ProAir HFA 108 (90 108 (90 _as_nee 108 (90 Base) Base) ded} Base) MCG/ACT MCG/ACT MCG/ACT Aspir-81 81 Aspir-81 81 No 1{table QD Aspir-81 MG MG t} 81 MG Combivent Combivent No 1{puff} QID Combivent Respimat Respimat Respimat 20-100 20-100 20-100 MCG/ACT MCG/ACT MCG/ACT HYDROcodone HYDROcodone No 1{table QID HYDROcodon -Acetaminop -Acetaminop t_as_ne e-Acetamin hen 10-325 hen 10-325 eded} ophen MG MG 10-325 MG Eliquis 5 Eliquis 5 No Eliquis 5 MG MG MG Spironolact Spironolact No 1{table QD Spironolac one 50 MG one 50 MG t} tone 50 MG Coreg 6.25 Coreg 6.25 No BID Coreg 6.25 MG MG MG metFORMIN metFORMIN No metFORMIN HCl ER 500 HCl ER 500 HCl ER 500 MG MG MG Cholestyram Cholestyram No Cholestyra ine 4 GM ine 4 GM mine 4 GM Montelukast Montelukast No Montelukas Sodium 10 Sodium 10 t Sodium MG MG 10 MG Neurontin Neurontin No 1{table QD Neurontin 600 MG 600 MG t} 600 MG tiZANidine tiZANidine No 1{table QD tiZANidine HCl 2 MG HCl 2 MG t_at_be HCl 2 MG dtime_a s_neede d} Potassium Potassium No Potassium Chloride Chloride Chloride Alexus ER 20 Alexus ER 20 Alexus ER 20 MEQ MEQ MEQ Amiodarone Amiodarone No 1{table QD Amiodarone HCl 200 MG HCl 200 MG t} HCl 200 MG Ferrous Ferrous No 1{table QD Ferrous Sulfate 325 Sulfate 325 t} Sulfate (65 Fe) MG (65 Fe) MG 325 (65 Fe) MG Rosuvastati Rosuvastati No 1{table Rosuvastat n Calcium n Calcium t} in Calcium 10 MG 10 MG 10 MG Eliquis 5 Eliquis 5 No Eliquis 5 MG MG MG Flovent HFA Flovent HFA No 1{puff} BID Flovent 110 MCG/ACT 110 MCG/ACT HFA 110 MCG/ACT Albuterol Albuterol No 1{ml_as QID Albuterol Sulfate (5 Sulfate (5 _needed Sulfate (5 MG/ML) 0.5% MG/ML) 0.5% } MG/ML) 0.5% Coreg 25 MG Coreg 25 MG No Coreg 25 MG Aspir-81 81 Aspir-81 81 No 1{table QD Aspir-81 MG MG t} 81 MG Montelukast Montelukast No Montelukas Sodium 10 Sodium 10 t Sodium MG MG 10 MG ProAir HFA ProAir HFA No 2{puffs QID ProAir HFA 108 (90 108 (90 _as_nee 108 (90 Base) Base) ded} Base) MCG/ACT MCG/ACT MCG/ACT Cholestyram Cholestyram No 1{packe BID Cholestyra ine 4 GM ine 4 GM t_mixed mine 4 GM _with_w ater_or _non-ca rbonate d_drink } Rosuvastati Rosuvastati No Rosuvastat n Calcium n Calcium in Calcium 10 MG 10 MG 10 MG Flovent Flovent No 1{puff} BID Flovent Diskus 100 Diskus 100 Diskus 100 MCG/BLIST MCG/BLIST MCG/BLIST Spironolact Spironolact No 1{table Spironolac one 25 MG one 25 MG t} tone 25 MG Furosemide Furosemide No Furosemide 40 MG 40 MG 40 MG Combivent Combivent No 1{puff} QID Combivent Respimat Respimat Respimat 20-100 20-100 20-100 MCG/ACT MCG/ACT MCG/ACT Simvastatin Simvastatin No Simvastati 20 MG 20 MG n 20 MG Omeprazole Omeprazole No 1{capsu QD Omeprazole 40 MG 40 MG le} 40 MG cloNIDine cloNIDine No 1{table cloNIDine HCl 0.2 MG HCl 0.2 MG t} HCl 0.2 MG Ferrous Ferrous No 1{table QD Ferrous Sulfate 325 Sulfate 325 t} Sulfate (65 Fe) MG (65 Fe) MG 325 (65 Fe) MG Neurontin Neurontin No 1{table QD Neurontin 600 MG 600 MG t} 600 MG Eliquis 5 Eliquis 5 No Eliquis 5 MG MG MG Flovent HFA Flovent HFA No 1{puff} BID Flovent 110 MCG/ACT 110 MCG/ACT HFA 110 MCG/ACT Albuterol Albuterol No 1{ml_as QID Albuterol Sulfate (5 Sulfate (5 _needed Sulfate (5 MG/ML) 0.5% MG/ML) 0.5% } MG/ML) 0.5% Coreg 25 MG Coreg 25 MG No Coreg 25 MG Aspir-81 81 Aspir-81 81 No 1{table QD Aspir-81 MG MG t} 81 MG Montelukast Montelukast No Montelukas Sodium 10 Sodium 10 t Sodium MG MG 10 MG ProAir HFA ProAir HFA No 2{puffs QID ProAir HFA 108 (90 108 (90 _as_nee 108 (90 Base) Base) ded} Base) MCG/ACT MCG/ACT MCG/ACT Cholestyram Cholestyram No 1{packe BID Cholestyra ine 4 GM ine 4 GM t_mixed mine 4 GM _with_w ater_or _non-ca rbonate d_drink } Rosuvastati Rosuvastati No Rosuvastat n Calcium n Calcium in Calcium 10 MG 10 MG 10 MG Flovent Flovent No 1{puff} BID Flovent Diskus 100 Diskus 100 Diskus 100 MCG/BLIST MCG/BLIST MCG/BLIST Spironolact Spironolact No 1{table Spironolac one 25 MG one 25 MG t} tone 25 MG Furosemide Furosemide No Furosemide 40 MG 40 MG 40 MG Combivent Combivent No 1{puff} QID Combivent Respimat Respimat Respimat 20-100 20-100 20-100 MCG/ACT MCG/ACT MCG/ACT Simvastatin Simvastatin No Simvastati 20 MG 20 MG n 20 MG Omeprazole Omeprazole No 1{capsu QD Omeprazole 40 MG 40 MG le} 40 MG cloNIDine cloNIDine No 1{table cloNIDine HCl 0.2 MG HCl 0.2 MG t} HCl 0.2 MG Ferrous Ferrous No 1{table QD Ferrous Sulfate 325 Sulfate 325 t} Sulfate (65 Fe) MG (65 Fe) MG 325 (65 Fe) MG Neurontin Neurontin No 1{table QD Neurontin 600 MG 600 MG t} 600 MG Eliquis 5 Eliquis 5 No Eliquis 5 MG MG MG Flovent HFA Flovent HFA No 1{puff} BID Flovent 110 MCG/ACT 110 MCG/ACT HFA 110 MCG/ACT Albuterol Albuterol No 1{ml_as QID Albuterol Sulfate (5 Sulfate (5 _needed Sulfate (5 MG/ML) 0.5% MG/ML) 0.5% } MG/ML) 0.5% Coreg 25 MG Coreg 25 MG No Coreg 25 MG Aspir-81 81 Aspir-81 81 No 1{table QD Aspir-81 MG MG t} 81 MG Montelukast Montelukast No Montelukas Sodium 10 Sodium 10 t Sodium MG MG 10 MG ProAir HFA ProAir HFA No 2{puffs QID ProAir HFA 108 (90 108 (90 _as_nee 108 (90 Base) Base) ded} Base) MCG/ACT MCG/ACT MCG/ACT Cholestyram Cholestyram No 1{packe BID Cholestyra ine 4 GM ine 4 GM t_mixed mine 4 GM _with_w ater_or _non-ca rbonate d_drink } Rosuvastati Rosuvastati No Rosuvastat n Calcium n Calcium in Calcium 10 MG 10 MG 10 MG Flovent Flovent No 1{puff} BID Flovent Diskus 100 Diskus 100 Diskus 100 MCG/BLIST MCG/BLIST MCG/BLIST Spironolact Spironolact No 1{table Spironolac one 25 MG one 25 MG t} tone 25 MG Furosemide Furosemide No Furosemide 40 MG 40 MG 40 MG Combivent Combivent No 1{puff} QID Combivent Respimat Respimat Respimat 20-100 20-100 20-100 MCG/ACT MCG/ACT MCG/ACT Simvastatin Simvastatin No Simvastati 20 MG 20 MG n 20 MG Omeprazole Omeprazole No 1{capsu QD Omeprazole 40 MG 40 MG le} 40 MG cloNIDine cloNIDine No 1{table cloNIDine HCl 0.2 MG HCl 0.2 MG t} HCl 0.2 MG Ferrous Ferrous No 1{table QD Ferrous Sulfate 325 Sulfate 325 t} Sulfate (65 Fe) MG (65 Fe) MG 325 (65 Fe) MG Neurontin Neurontin No 1{table QD Neurontin 600 MG 600 MG t} 600 MG Montelukast Montelukast No Montelukas Sodium 10 Sodium 10 t Sodium MG MG 10 MG Cholestyram Cholestyram No 1{packe BID Cholestyra ine 4 GM ine 4 GM t_mixed mine 4 GM _with_w ater_or _non-ca rbonate d_drink } Eliquis 5 Eliquis 5 No Eliquis 5 MG MG MG Furosemide Furosemide No Furosemide 40 MG 40 MG 40 MG cloNIDine cloNIDine No 1{table cloNIDine HCl 0.2 MG HCl 0.2 MG t} HCl 0.2 MG Ferrous Ferrous No 1{table QD Ferrous Sulfate 325 Sulfate 325 t} Sulfate (65 Fe) MG (65 Fe) MG 325 (65 Fe) MG Rosuvastati Rosuvastati No Rosuvastat n Calcium n Calcium in Calcium 10 MG 10 MG 10 MG Combivent Combivent No 1{puff} QID Combivent Respimat Respimat Respimat 20-100 20-100 20-100 MCG/ACT MCG/ACT MCG/ACT Flovent HFA Flovent HFA No 1{puff} BID Flovent 110 MCG/ACT 110 MCG/ACT HFA 110 MCG/ACT Neurontin Neurontin No 1{table QD Neurontin 600 MG 600 MG t} 600 MG Spironolact Spironolact No 1{table Spironolac one 25 MG one 25 MG t} tone 25 MG Simvastatin Simvastatin No Simvastati 20 MG 20 MG n 20 MG Aspir-81 81 Aspir-81 81 No 1{table QD Aspir-81 MG MG t} 81 MG ProAir HFA ProAir HFA No 2{puffs QID ProAir HFA 108 (90 108 (90 _as_nee 108 (90 Base) Base) ded} Base) MCG/ACT MCG/ACT MCG/ACT Rosuvastati Rosuvastati No 1{table Rosuvastat n Calcium n Calcium t} in Calcium 10 MG 10 MG 10 MG Coreg 6.25 Coreg 6.25 No BID Coreg 6.25 MG MG MG Albuterol Albuterol No 1{ml_as QID Albuterol Sulfate (5 Sulfate (5 _needed Sulfate (5 MG/ML) 0.5% MG/ML) 0.5% } MG/ML) 0.5% Flovent Flovent No 1{puff} BID Flovent Diskus 100 Diskus 100 Diskus 100 MCG/BLIST MCG/BLIST MCG/BLIST Omeprazole Omeprazole No 1{capsu QD Omeprazole 40 MG 40 MG le} 40 MG Montelukast Montelukast No Montelukas Sodium 10 Sodium 10 t Sodium MG MG 10 MG Cholestyram Cholestyram No 1{packe BID Cholestyra ine 4 GM ine 4 GM t_mixed mine 4 GM _with_w ater_or _non-ca rbonate d_drink } Eliquis 5 Eliquis 5 No Eliquis 5 MG MG MG Furosemide Furosemide No Furosemide 40 MG 40 MG 40 MG cloNIDine cloNIDine No 1{table cloNIDine HCl 0.2 MG HCl 0.2 MG t} HCl 0.2 MG Ferrous Ferrous No 1{table QD Ferrous Sulfate 325 Sulfate 325 t} Sulfate (65 Fe) MG (65 Fe) MG 325 (65 Fe) MG Rosuvastati Rosuvastati No Rosuvastat n Calcium n Calcium in Calcium 10 MG 10 MG 10 MG Combivent Combivent No 1{puff} QID Combivent Respimat Respimat Respimat 20-100 20-100 20-100 MCG/ACT MCG/ACT MCG/ACT Flovent HFA Flovent HFA No 1{puff} BID Flovent 110 MCG/ACT 110 MCG/ACT HFA 110 MCG/ACT Neurontin Neurontin No 1{table QD Neurontin 600 MG 600 MG t} 600 MG Spironolact Spironolact No 1{table Spironolac one 25 MG one 25 MG t} tone 25 MG Simvastatin Simvastatin No Simvastati 20 MG 20 MG n 20 MG Aspir-81 81 Aspir-81 81 No 1{table QD Aspir-81 MG MG t} 81 MG ProAir HFA ProAir HFA No 2{puffs QID ProAir HFA 108 (90 108 (90 _as_nee 108 (90 Base) Base) ded} Base) MCG/ACT MCG/ACT MCG/ACT Rosuvastati Rosuvastati No 1{table Rosuvastat n Calcium n Calcium t} in Calcium 10 MG 10 MG 10 MG Coreg 6.25 Coreg 6.25 No BID Coreg 6.25 MG MG MG Albuterol Albuterol No 1{ml_as QID Albuterol Sulfate (5 Sulfate (5 _needed Sulfate (5 MG/ML) 0.5% MG/ML) 0.5% } MG/ML) 0.5% Flovent Flovent No 1{puff} BID Flovent Diskus 100 Diskus 100 Diskus 100 MCG/BLIST MCG/BLIST MCG/BLIST Omeprazole Omeprazole No 1{capsu QD Omeprazole 40 MG 40 MG le} 40 MG Amiodarone Amiodarone No 1{table QD Amiodarone HCl 200 MG HCl 200 MG t} HCl 200 MG Flovent Flovent No 1{puff} BID Flovent Diskus 100 Diskus 100 Diskus 100 MCG/BLIST MCG/BLIST MCG/BLIST Coreg 12.5 Coreg 12.5 No 1{table Coreg 12.5 MG MG t_with_ MG food} Montelukast Montelukast No Montelukas Sodium 10 Sodium 10 t Sodium MG MG 10 MG Eliquis 5 Eliquis 5 No Eliquis 5 MG MG MG Simvastatin Simvastatin No Simvastati 20 MG 20 MG n 20 MG Rosuvastati Rosuvastati No Rosuvastat n Calcium n Calcium in Calcium 10 MG 10 MG 10 MG Neurontin Neurontin No 1{table QD Neurontin 600 MG 600 MG t} 600 MG Combivent Combivent No 1{puff} QID Combivent Respimat Respimat Respimat 20-100 20-100 20-100 MCG/ACT MCG/ACT MCG/ACT Cholestyram Cholestyram No 1{packe BID Cholestyra ine 4 GM ine 4 GM t_mixed mine 4 GM _with_w ater_or _non-ca rbonate d_drink } Omeprazole Omeprazole No 1{capsu QD Omeprazole 40 MG 40 MG le} 40 MG cloNIDine cloNIDine No 1{table cloNIDine HCl 0.2 MG HCl 0.2 MG t} HCl 0.2 MG Furosemide Furosemide No Furosemide 40 MG 40 MG 40 MG Flovent HFA Flovent HFA No 1{puff} BID Flovent 110 MCG/ACT 110 MCG/ACT HFA 110 MCG/ACT ProAir HFA ProAir HFA No 2{puffs QID ProAir HFA 108 (90 108 (90 _as_nee 108 (90 Base) Base) ded} Base) MCG/ACT MCG/ACT MCG/ACT Aspir-81 81 Aspir-81 81 No 1{table QD Aspir-81 MG MG t} 81 MG Albuterol Albuterol No 1{ml_as QID Albuterol Sulfate (5 Sulfate (5 _needed Sulfate (5 MG/ML) 0.5% MG/ML) 0.5% } MG/ML) 0.5% Spironolact Spironolact No 1{table Spironolac one 25 MG one 25 MG t} tone 25 MG Rosuvastati Rosuvastati No 1{table Rosuvastat n Calcium n Calcium t} in Calcium 10 MG 10 MG 10 MG Ferrous Ferrous No 1{table QD Ferrous Sulfate 325 Sulfate 325 t} Sulfate (65 Fe) MG (65 Fe) MG 325 (65 Fe) MG Neurontin Neurontin No 1{table QD Neurontin 600 MG 600 MG t} 600 MG Aspir-81 81 Aspir-81 81 No 1{table QD Aspir-81 MG MG t} 81 MG cloNIDine cloNIDine No 1{table cloNIDine HCl 0.2 MG HCl 0.2 MG t} HCl 0.2 MG Spironolact Spironolact No 1{table QD Spironolac one 50 MG one 50 MG t} tone 50 MG Coreg 6.25 Coreg 6.25 No BID Coreg 6.25 MG MG MG Combivent Combivent No 1{puff} QID Combivent Respimat Respimat Respimat 20-100 20-100 20-100 MCG/ACT MCG/ACT MCG/ACT Eliquis 5 Eliquis 5 No Eliquis 5 MG MG MG Furosemide Furosemide No Furosemide 40 MG 40 MG 40 MG Amiodarone Amiodarone No 1{table QD Amiodarone HCl 200 MG HCl 200 MG t} HCl 200 MG ProAir HFA ProAir HFA No 2{puffs QID ProAir HFA 108 (90 108 (90 _as_nee 108 (90 Base) Base) ded} Base) MCG/ACT MCG/ACT MCG/ACT HYDROcodone HYDROcodone No 1{table QID HYDROcodon -Acetaminop -Acetaminop t_as_ne e-Acetamin hen 10-325 hen 10-325 eded} ophen MG MG 10-325 MG tiZANidine tiZANidine No 1{table QD tiZANidine HCl 2 MG HCl 2 MG t_at_be HCl 2 MG dtime_a s_neede d} Rosuvastati Rosuvastati No Rosuvastat n Calcium n Calcium in Calcium 10 MG 10 MG 10 MG Omeprazole Omeprazole No 1{capsu QD Omeprazole 40 MG 40 MG le} 40 MG Rosuvastati Rosuvastati No 1{table Rosuvastat n Calcium n Calcium t} in Calcium 10 MG 10 MG 10 MG Ferrous Ferrous No 1{table QD Ferrous Sulfate 325 Sulfate 325 t} Sulfate (65 Fe) MG (65 Fe) MG 325 (65 Fe) MG Cholestyram Cholestyram No 1{packe BID Cholestyra ine 4 GM ine 4 GM t_mixed mine 4 GM _with_w ater_or _non-ca rbonate d_drink } Flovent Flovent No 1{puff} BID Flovent Diskus 100 Diskus 100 Diskus 100 MCG/BLIST MCG/BLIST MCG/BLIST Montelukast Montelukast No Montelukas Sodium 10 Sodium 10 t Sodium MG MG 10 MG Cholestyram Cholestyram No Cholestyra ine 4 GM ine 4 GM mine 4 GM Albuterol Albuterol No 1{ml_as QID Albuterol Sulfate (5 Sulfate (5 _needed Sulfate (5 MG/ML) 0.5% MG/ML) 0.5% } MG/ML) 0.5% Neurontin Neurontin No 1{table QD Neurontin 600 MG 600 MG t} 600 MG Aspir-81 81 Aspir-81 81 No 1{table QD Aspir-81 MG MG t} 81 MG cloNIDine cloNIDine No 1{table cloNIDine HCl 0.2 MG HCl 0.2 MG t} HCl 0.2 MG Spironolact Spironolact No 1{table QD Spironolac one 50 MG one 50 MG t} tone 50 MG Coreg 6.25 Coreg 6.25 No BID Coreg 6.25 MG MG MG Combivent Combivent No 1{puff} QID Combivent Respimat Respimat Respimat 20-100 20-100 20-100 MCG/ACT MCG/ACT MCG/ACT Eliquis 5 Eliquis 5 No Eliquis 5 MG MG MG Furosemide Furosemide No Furosemide 40 MG 40 MG 40 MG Amiodarone Amiodarone No 1{table QD Amiodarone HCl 200 MG HCl 200 MG t} HCl 200 MG ProAir HFA ProAir HFA No 2{puffs QID ProAir HFA 108 (90 108 (90 _as_nee 108 (90 Base) Base) ded} Base) MCG/ACT MCG/ACT MCG/ACT HYDROcodone HYDROcodone No 1{table QID HYDROcodon -Acetaminop -Acetaminop t_as_ne e-Acetamin hen 10-325 hen 10-325 eded} ophen MG MG 10-325 MG tiZANidine tiZANidine No 1{table QD tiZANidine HCl 2 MG HCl 2 MG t_at_be HCl 2 MG dtime_a s_neede d} Rosuvastati Rosuvastati No Rosuvastat n Calcium n Calcium in Calcium 10 MG 10 MG 10 MG Omeprazole Omeprazole No 1{capsu QD Omeprazole 40 MG 40 MG le} 40 MG Rosuvastati Rosuvastati No 1{table Rosuvastat n Calcium n Calcium t} in Calcium 10 MG 10 MG 10 MG Ferrous Ferrous No 1{table QD Ferrous Sulfate 325 Sulfate 325 t} Sulfate (65 Fe) MG (65 Fe) MG 325 (65 Fe) MG Cholestyram Cholestyram No 1{packe BID Cholestyra ine 4 GM ine 4 GM t_mixed mine 4 GM _with_w ater_or _non-ca rbonate d_drink } Flovent Flovent No 1{puff} BID Flovent Diskus 100 Diskus 100 Diskus 100 MCG/BLIST MCG/BLIST MCG/BLIST Montelukast Montelukast No Montelukas Sodium 10 Sodium 10 t Sodium MG MG 10 MG Cholestyram Cholestyram No Cholestyra ine 4 GM ine 4 GM mine 4 GM Albuterol Albuterol No 1{ml_as QID Albuterol Sulfate (5 Sulfate (5 _needed Sulfate (5 MG/ML) 0.5% MG/ML) 0.5% } MG/ML) 0.5% tiZANidine tiZANidine No 1{table QD tiZANidine HCl 2 MG HCl 2 MG t_at_be HCl 2 MG dtime_a s_neede d} Cholestyram Cholestyram No 1{packe BID Cholestyra ine 4 GM ine 4 GM t_mixed mine 4 GM _with_w ater_or _non-ca rbonate d_drink } Spironolact Spironolact No 1{table QD Spironolac one 50 MG one 50 MG t} tone 50 MG Ferrous Ferrous No 1{table QD Ferrous Sulfate 325 Sulfate 325 t} Sulfate (65 Fe) MG (65 Fe) MG 325 (65 Fe) MG Aspir-81 81 Aspir-81 81 No 1{table QD Aspir-81 MG MG t} 81 MG cloNIDine cloNIDine No 1{table cloNIDine HCl 0.2 MG HCl 0.2 MG t} HCl 0.2 MG Cholestyram Cholestyram No Cholestyra ine 4 GM ine 4 GM mine 4 GM Albuterol Albuterol No 1{ml_as QID Albuterol Sulfate (5 Sulfate (5 _needed Sulfate (5 MG/ML) 0.5% MG/ML) 0.5% } MG/ML) 0.5% Flovent Flovent No 1{puff} BID Flovent Diskus 100 Diskus 100 Diskus 100 MCG/BLIST MCG/BLIST MCG/BLIST HYDROcodone HYDROcodone No 1{table QID HYDROcodon -Acetaminop -Acetaminop t_as_ne e-Acetamin hen 10-325 hen 10-325 eded} ophen MG MG 10-325 MG Combivent Combivent No 1{puff} QID Combivent Respimat Respimat Respimat 20-100 20-100 20-100 MCG/ACT MCG/ACT MCG/ACT Amiodarone Amiodarone No 1{table QD Amiodarone HCl 200 MG HCl 200 MG t} HCl 200 MG Rosuvastati Rosuvastati No 1{table Rosuvastat n Calcium n Calcium t} in Calcium 10 MG 10 MG 10 MG Furosemide Furosemide No Furosemide 40 MG 40 MG 40 MG ProAir HFA ProAir HFA No 2{puffs QID ProAir HFA 108 (90 108 (90 _as_nee 108 (90 Base) Base) ded} Base) MCG/ACT MCG/ACT MCG/ACT Neurontin Neurontin No 1{table QD Neurontin 600 MG 600 MG t} 600 MG Coreg 6.25 Coreg 6.25 No BID Coreg 6.25 MG MG MG Montelukast Montelukast No Montelukas Sodium 10 Sodium 10 t Sodium MG MG 10 MG Omeprazole Omeprazole No 1{capsu QD Omeprazole 40 MG 40 MG le} 40 MG Eliquis 5 Eliquis 5 No Eliquis 5 MG MG MG Rosuvastati Rosuvastati No Rosuvastat n Calcium n Calcium in Calcium 10 MG 10 MG 10 MG tiZANidine tiZANidine No 1{table QD tiZANidine HCl 2 MG HCl 2 MG t_at_be HCl 2 MG dtime_a s_neede d} Cholestyram Cholestyram No 1{packe BID Cholestyra ine 4 GM ine 4 GM t_mixed mine 4 GM _with_w ater_or _non-ca rbonate d_drink } Spironolact Spironolact No 1{table QD Spironolac one 50 MG one 50 MG t} tone 50 MG Ferrous Ferrous No 1{table QD Ferrous Sulfate 325 Sulfate 325 t} Sulfate (65 Fe) MG (65 Fe) MG 325 (65 Fe) MG Aspir-81 81 Aspir-81 81 No 1{table QD Aspir-81 MG MG t} 81 MG cloNIDine cloNIDine No 1{table cloNIDine HCl 0.2 MG HCl 0.2 MG t} HCl 0.2 MG Cholestyram Cholestyram No Cholestyra ine 4 GM ine 4 GM mine 4 GM Albuterol Albuterol No 1{ml_as QID Albuterol Sulfate (5 Sulfate (5 _needed Sulfate (5 MG/ML) 0.5% MG/ML) 0.5% } MG/ML) 0.5% Flovent Flovent No 1{puff} BID Flovent Diskus 100 Diskus 100 Diskus 100 MCG/BLIST MCG/BLIST MCG/BLIST HYDROcodone HYDROcodone No 1{table QID HYDROcodon -Acetaminop -Acetaminop t_as_ne e-Acetamin hen 10-325 hen 10-325 eded} ophen MG MG 10-325 MG Combivent Combivent No 1{puff} QID Combivent Respimat Respimat Respimat 20-100 20-100 20-100 MCG/ACT MCG/ACT MCG/ACT Amiodarone Amiodarone No 1{table QD Amiodarone HCl 200 MG HCl 200 MG t} HCl 200 MG Rosuvastati Rosuvastati No 1{table Rosuvastat n Calcium n Calcium t} in Calcium 10 MG 10 MG 10 MG Furosemide Furosemide No Furosemide 40 MG 40 MG 40 MG ProAir HFA ProAir HFA No 2{puffs QID ProAir HFA 108 (90 108 (90 _as_nee 108 (90 Base) Base) ded} Base) MCG/ACT MCG/ACT MCG/ACT Neurontin Neurontin No 1{table QD Neurontin 600 MG 600 MG t} 600 MG Coreg 6.25 Coreg 6.25 No BID Coreg 6.25 MG MG MG Montelukast Montelukast No Montelukas Sodium 10 Sodium 10 t Sodium MG MG 10 MG Omeprazole Omeprazole No 1{capsu QD Omeprazole 40 MG 40 MG le} 40 MG Eliquis 5 Eliquis 5 No Eliquis 5 MG MG MG Rosuvastati Rosuvastati No Rosuvastat n Calcium n Calcium in Calcium 10 MG 10 MG 10 MG Omeprazole Omeprazole No 1{capsu QD Omeprazole 40 MG 40 MG le} 40 MG tiZANidine tiZANidine No 1{table QD tiZANidine HCl 2 MG HCl 2 MG t_at_be HCl 2 MG dtime_a s_neede d} Rosuvastati Rosuvastati No Rosuvastat n Calcium n Calcium in Calcium 10 MG 10 MG 10 MG Rosuvastati Rosuvastati No 1{table Rosuvastat n Calcium n Calcium t} in Calcium 10 MG 10 MG 10 MG Cholestyram Cholestyram No Cholestyra ine 4 GM ine 4 GM mine 4 GM Albuterol Albuterol No 1{ml_as QID Albuterol Sulfate (5 Sulfate (5 _needed Sulfate (5 MG/ML) 0.5% MG/ML) 0.5% } MG/ML) 0.5% HYDROcodone HYDROcodone No 1{table QID HYDROcodon -Acetaminop -Acetaminop t_as_ne e-Acetamin hen 10-325 hen 10-325 eded} ophen MG MG 10-325 MG Amiodarone Amiodarone No 1{table QD Amiodarone HCl 200 MG HCl 200 MG t} HCl 200 MG Furosemide Furosemide No 1{table BID Furosemide 80 MG 80 MG t} 80 MG Aspir-81 81 Aspir-81 81 No 1{table QD Aspir-81 MG MG t} 81 MG Ferrous Ferrous No 1{table QD Ferrous Sulfate 325 Sulfate 325 t} Sulfate (65 Fe) MG (65 Fe) MG 325 (65 Fe) MG Neurontin Neurontin No 1{table QD Neurontin 600 MG 600 MG t} 600 MG Cholestyram Cholestyram No 1{packe BID Cholestyra ine 4 GM ine 4 GM t_mixed mine 4 GM _with_w ater_or _non-ca rbonate d_drink } cloNIDine cloNIDine No 1{table cloNIDine HCl 0.2 MG HCl 0.2 MG t} HCl 0.2 MG ProAir HFA ProAir HFA No 2{puffs QID ProAir HFA 108 (90 108 (90 _as_nee 108 (90 Base) Base) ded} Base) MCG/ACT MCG/ACT MCG/ACT Flovent Flovent No 1{puff} BID Flovent Diskus 100 Diskus 100 Diskus 100 MCG/BLIST MCG/BLIST MCG/BLIST Montelukast Montelukast No Montelukas Sodium 10 Sodium 10 t Sodium MG MG 10 MG Eliquis 5 Eliquis 5 No Eliquis 5 MG MG MG Spironolact Spironolact No 1{table QD Spironolac one 50 MG one 50 MG t} tone 50 MG Combivent Combivent No 1{puff} QID Combivent Respimat Respimat Respimat 20-100 20-100 20-100 MCG/ACT MCG/ACT MCG/ACT Coreg 6.25 Coreg 6.25 No BID Coreg 6.25 MG MG MG Combivent Combivent No 1{puff} QID Combivent Respimat Respimat Respimat 20-100 20-100 20-100 MCG/ACT MCG/ACT MCG/ACT ProAir HFA ProAir HFA No 2{puffs QID ProAir HFA 108 (90 108 (90 _as_nee 108 (90 Base) Base) ded} Base) MCG/ACT MCG/ACT MCG/ACT Furosemide Furosemide No 1{table BID Furosemide 80 MG 80 MG t} 80 MG Neurontin Neurontin No 1{table QD Neurontin 600 MG 600 MG t} 600 MG Montelukast Montelukast No Montelukas Sodium 10 Sodium 10 t Sodium MG MG 10 MG Coreg 6.25 Coreg 6.25 No BID Coreg 6.25 MG MG MG Cholestyram Cholestyram No Cholestyra ine 4 GM ine 4 GM mine 4 GM Ferrous Ferrous No 1{table QD Ferrous Sulfate 325 Sulfate 325 t} Sulfate (65 Fe) MG (65 Fe) MG 325 (65 Fe) MG Cholestyram Cholestyram No 1{packe BID Cholestyra ine 4 GM ine 4 GM t_mixed mine 4 GM _with_w ater_or _non-ca rbonate d_drink } Spironolact Spironolact No 1{table QD Spironolac one 50 MG one 50 MG t} tone 50 MG cloNIDine cloNIDine No 1{table cloNIDine HCl 0.2 MG HCl 0.2 MG t} HCl 0.2 MG Omeprazole Omeprazole No 1{capsu QD Omeprazole 40 MG 40 MG le} 40 MG Rosuvastati Rosuvastati No Rosuvastat n Calcium n Calcium in Calcium 10 MG 10 MG 10 MG HYDROcodone HYDROcodone No 1{table QID HYDROcodon -Acetaminop -Acetaminop t_as_ne e-Acetamin hen 10-325 hen 10-325 eded} ophen MG MG 10-325 MG Albuterol Albuterol No 1{ml_as QID Albuterol Sulfate (5 Sulfate (5 _needed Sulfate (5 MG/ML) 0.5% MG/ML) 0.5% } MG/ML) 0.5% Eliquis 5 Eliquis 5 No Eliquis 5 MG MG MG Rosuvastati Rosuvastati No 1{table Rosuvastat n Calcium n Calcium t} in Calcium 10 MG 10 MG 10 MG Flovent Flovent No 1{puff} BID Flovent Diskus 100 Diskus 100 Diskus 100 MCG/BLIST MCG/BLIST MCG/BLIST Aspir-81 81 Aspir-81 81 No 1{table QD Aspir-81 MG MG t} 81 MG Amiodarone Amiodarone No 1{table QD Amiodarone HCl 200 MG HCl 200 MG t} HCl 200 MG tiZANidine tiZANidine No 1{table QD tiZANidine HCl 2 MG HCl 2 MG t_at_be HCl 2 MG dtime_a s_neede d} Coreg 6.25 Coreg 6.25 No BID Coreg 6.25 MG MG MG Combivent Combivent No 1{puff} QID Combivent Respimat Respimat Respimat 20-100 20-100 20-100 MCG/ACT MCG/ACT MCG/ACT Omeprazole Omeprazole No 1{capsu QD Omeprazole 40 MG 40 MG le} 40 MG Neurontin Neurontin No 1{table QD Neurontin 600 MG 600 MG t} 600 MG Rosuvastati Rosuvastati No Rosuvastat n Calcium n Calcium in Calcium 10 MG 10 MG 10 MG Spironolact Spironolact No 1{table QD Spironolac one 50 MG one 50 MG t} tone 50 MG Ferrous Ferrous No 1{table QD Ferrous Sulfate 325 Sulfate 325 t} Sulfate (65 Fe) MG (65 Fe) MG 325 (65 Fe) MG Aspir-81 81 Aspir-81 81 No 1{table QD Aspir-81 MG MG t} 81 MG Rosuvastati Rosuvastati No 1{table Rosuvastat n Calcium n Calcium t} in Calcium 10 MG 10 MG 10 MG cloNIDine cloNIDine No 1{table cloNIDine HCl 0.2 MG HCl 0.2 MG t} HCl 0.2 MG Amiodarone Amiodarone No 1{table QD Amiodarone HCl 200 MG HCl 200 MG t} HCl 200 MG tiZANidine tiZANidine No 1{table QD tiZANidine HCl 2 MG HCl 2 MG t_at_be HCl 2 MG dtime_a s_neede d} Furosemide Furosemide No Furosemide 40 MG 40 MG 40 MG Montelukast Montelukast No Montelukas Sodium 10 Sodium 10 t Sodium MG MG 10 MG HYDROcodone HYDROcodone No 1{table QID HYDROcodon -Acetaminop -Acetaminop t_as_ne e-Acetamin hen 10-325 hen 10-325 eded} ophen MG MG 10-325 MG Albuterol Albuterol No 1{ml_as QID Albuterol Sulfate (5 Sulfate (5 _needed Sulfate (5 MG/ML) 0.5% MG/ML) 0.5% } MG/ML) 0.5% Flovent Flovent No 1{puff} BID Flovent Diskus 100 Diskus 100 Diskus 100 MCG/BLIST MCG/BLIST MCG/BLIST Cholestyram Cholestyram No Cholestyra ine 4 GM ine 4 GM mine 4 GM Eliquis 5 Eliquis 5 No Eliquis 5 MG MG MG ProAir HFA ProAir HFA No 2{puffs QID ProAir HFA 108 (90 108 (90 _as_nee 108 (90 Base) Base) ded} Base) MCG/ACT MCG/ACT MCG/ACT Eliquis 5 Eliquis 5 No Eliquis 5 MG MG MG Flovent Flovent No 1{puff} BID Flovent Diskus 100 Diskus 100 Diskus 100 MCG/BLIST MCG/BLIST MCG/BLIST HYDROcodone HYDROcodone No 1{table QID HYDROcodon -Acetaminop -Acetaminop t_as_ne e-Acetamin hen 10-325 hen 10-325 eded} ophen MG MG 10-325 MG Aspir-81 81 Aspir-81 81 No 1{table QD Aspir-81 MG MG t} 81 MG Combivent Combivent No 1{puff} QID Combivent Respimat Respimat Respimat 20-100 20-100 20-100 MCG/ACT MCG/ACT MCG/ACT Montelukast Montelukast No Montelukas Sodium 10 Sodium 10 t Sodium MG MG 10 MG Ferrous Ferrous No 1{table QD Ferrous Sulfate 325 Sulfate 325 t} Sulfate (65 Fe) MG (65 Fe) MG 325 (65 Fe) MG Furosemide Furosemide No Furosemide 40 MG 40 MG 40 MG tiZANidine tiZANidine No 1{table QD tiZANidine HCl 2 MG HCl 2 MG t_at_be HCl 2 MG dtime_a s_neede d} ProAir HFA ProAir HFA No 2{puffs QID ProAir HFA 108 (90 108 (90 _as_nee 108 (90 Base) Base) ded} Base) MCG/ACT MCG/ACT MCG/ACT Neurontin Neurontin No 1{table QD Neurontin 600 MG 600 MG t} 600 MG cloNIDine cloNIDine No 1{table cloNIDine HCl 0.2 MG HCl 0.2 MG t} HCl 0.2 MG Potassium Potassium No Potassium Chloride Chloride Chloride Alexus ER 20 Alexus ER 20 Alexus ER 20 MEQ MEQ MEQ Albuterol Albuterol No 1{ml_as QID Albuterol Sulfate (5 Sulfate (5 _needed Sulfate (5 MG/ML) 0.5% MG/ML) 0.5% } MG/ML) 0.5% Amiodarone Amiodarone No 1{table QD Amiodarone HCl 200 MG HCl 200 MG t} HCl 200 MG Rosuvastati Rosuvastati No 1{table Rosuvastat n Calcium n Calcium t} in Calcium 10 MG 10 MG 10 MG Spironolact Spironolact No 1{table QD Spironolac one 50 MG one 50 MG t} tone 50 MG Rosuvastati Rosuvastati No Rosuvastat n Calcium n Calcium in Calcium 10 MG 10 MG 10 MG Cholestyram Cholestyram No Cholestyra ine 4 GM ine 4 GM mine 4 GM Omeprazole Omeprazole No 1{capsu QD Omeprazole 40 MG 40 MG le} 40 MG Coreg 6.25 Coreg 6.25 No BID Coreg 6.25 MG MG MG Eliquis 5 Eliquis 5 No Eliquis 5 MG MG MG Immunizations Ordered Filled Immunization Date Status Comments Sourc e Immunization Name Name Flucelvax - single Flucelvax - single 2022-09-18 [facility] dose syringe 12:24:00 [facility] Flucelvax - single Flucelvax - single 2022-09-18 Completed [facility] - dose syringe dose syringe 12:24:00 [facility] Flucelvax - single Flucelvax - single 2022-09-18 Completed [facility] - dose syringe dose syringe 12:24:00 [facility] Flucelvax - single Flucelvax - single 2022-09-18 Completed [facility] - dose syringe dose syringe 12:24:00 [facility] Td Td 2022-04-10 Completed [facility] - 11:44:00 [facility] Td Td 2022-04-10 Completed [facility] 11:44:00 [facility] Td Td 2022-04-10 Completed [facility] 11:44:00 [facility] Td Td 2022-04-10 Completed [facility] - 11:44:00 [facility] Td Td 2022-04-10 Completed [facility] 11:44:00 [facility] Td Td 2022-04-10 Completed [facility] 11:44:00 [facility] Td Td 2022-04-10 Completed [facility] 11:44:00 [facility] Td Td 2022-04-10 Completed [facility] - 11:44:00 [facility] Td Td 2022-04-10 Completed [facility] - 11:44:00 [facility] Td Td 2022-04-10 Completed [facility] 11:44:00 [facility] Td Td 2022-04-10 Completed [facility] - 11:44:00 [facility] COVID19 [facility] COVID19 2021-10-07 [facility] (Low Dose Vaccine (Low Dose 15:33:[address] [facility] COVID19 2021-10-07 Com[facility]ine (Low Dose Vaccine (Low Dose 15:33:[address] [facility] Booster) Booster) [facility] [address] COVID19 2021-10-07 Com[facility] (Low Dose Vaccine (Low Dose 15:33:[address] [facility] Booster) Booster) [facility] COVID29 [address] COVID-19 2021-10-07 Completed [facility]ine (Low Dose Vaccine (Low Dose 15:33:[address] [facility] Booster) Booster) [facility] [address] [facility] (Low Dose Vaccine (Low Dose 15:33:[address] [facility] Booster) Booster) [facility] [address] [facility]-10-07 [facility]ine (Low Dose Vaccine (Low Dose 15:33:[address] [facility] Booster) Booster) [facility]07 [facility] (Low Dose Vaccine (Low Dose 15:33:[address] [facility] Booster[facility]oster[facility] [facility]-10-07 [facility] Vaccine (Low Dose Vaccine (Low Dose 15:33:[address] [facility] Booster) Booster) [facility]-10-07 [facility] (Low Dose Vaccine (Low Dose 15:33:[address] [facility] Booster) Booster) [facility] 2021-10-07 [facility] (Low Dose Vaccine (Low Dose 15:33:[address] [facility] Booster) Booster) [address] [facility] 2021-10-07 [facility]ine (Low Dose Vaccine (Low Dose 15:33:[address] [facility] Booster) Booster) [facility] [facility] 2021-10-07 [facility]ine (Low Dose Vaccine (Low Dose 15:33:[address] [facility] Booster) Booster) [facility] [facility] 2021-10-07 Com[facility]ine (Low Dose Vaccine (Low Dose 15:33:[address] [facility] Booster[facility] Booster) [facility] [facility] 2021-10-07 [facility] Vaccine (Low Dose Vaccine (Low Dose 15:33:[address] [facility] Booster) Booster) [facility] [facility] 2021-10-07 [facility] Vaccine (Low Dose Vaccine (Low Dose 15:33:[address] [facility] Booster) Booster) [place] [address] 2021-10-07 Completed [facility] Vaccine (Low Dose Vaccine (Low Dose 15:33:[address] [facility] Booster) Booster) [place] [address] 2021-10-07 Completed [facility] Vaccine (Low Dose Vaccine (Low Dose 15:33:[address] [facility] Booster) Booster) [place] [address] 2021-10-07 Completed [facility] Vaccine (Low Dose Vaccine (Low Dose 15:33:[address] [facility] Booster) Booster) [place] [address] 2021-10-07 Completed [facility]ine (Low Dose Vaccine (Low Dose 15:33:[address] [facility] Booster) Booster) [place] [address] 2021-10-07 Completed [facility]ine (Low Dose Vaccine (Low Dose 15:33:[address] [facility] Booster) Booster) [place] [address] 2021-10-07 Completed [facility] Vaccine (Low Dose Vaccine (Low Dose 15:33:[address] [facility] Booster) Booster) [place] [address] 2021-10-07 Completed [facility] Vaccine (Low Dose Vaccine (Low Dose 15:33:[address] [facility] Booster) Booster) [place] [address] 2021-10-07 Completed [facility] Vaccine (Low Dose Vaccine (Low Dose 15:33:[address] [facility] Booster) Booster) [place] [address] 2021-10-07 Com[facility] Vaccine (Low Dose Vaccine (Low Dose 15:33:[address] [facility] Booster) Booster) [facility] 2021-10-07 [facility] 13:[facility]:[address] [facility] 2021-10-07 Com[facility] 13:[facility]:[address] [facility] 2021-10-07 Completed [facility] - 13[facility]58:00 [facility] Afluria Afluria 2021-10-07 Completed [facility] - 13:58:00 [facility] Afluria Afluria 2021-10-07 Completed [facility] - 13:58:00 [facility] Afluria Afluria 2021-10-07 Completed [facility] - 13:58:00 [facility] Afluria Afluria 2021-10-07 Completed [facility] - 13:58:00 [facility] Afluria Afluria 2021-10-07 Completed [facility] - 13:58:00 [facility] Afluria Afluria 2021-10-07 Completed [facility] - 13:58:00 [facility] Afluria Afluria 2021-10-07 Completed [facility] - 13:58:00 [facility] Afluria Afluria 2021-10-07 Completed [facility] - 13:58:00 [facility] Afluria Afluria 2021-10-07 Completed [facility] - 13:58:00 [facility] Afluria Afluria 2021-10-07 Completed [facility] - 13:58:00 [facility] Afluria Afluria 2021-10-07 Completed [facility] - 13:58:00 [facility] Afluria Afluria 2021-10-07 Completed [facility] - 13:58:00 [facility] Afluria Afluria 2021-10-07 Completed [facility] - 13:58:00 [facility] Afluria Afluria 2021-10-07 Completed [facility] - 13:58:00 [facility] Afluria Afluria 2021-10-07 Completed [facility] - 13:58:00 [facility] Afluria Afluria 2021-10-07 Completed [facility] - 13:58:00 [facility] Afluria Afluria 2021-10-07 Completed [facility] - 13:58:00 [facility] Afluria Afluria 2021-10-07 Completed [facility] - 13:58:00 [facility] Afluria Afluria 2021-10-07 Completed [facility] - 13:58:00 [facility] Afluria Afluria 2021-10-07 Completed [facility] - 13:58:00 [facility] Afluria Afluria 2021-10-07 Completed [facility] - 13:58:00 [facility] SARS-COV-2 COVID-19 2021-01-30 Completed [facility] VACCINE 00:00:00 [facility] SARS-COV-2 COVID-19 2021-01-30 Completed [facility] of [facility] VACCINE 00:00:00 [facility] SARS-COV-2 COVID-19 2021-01-30 Completed [facility] VACCINE 00:00:00 [facility] SARS-COV-2 COVID-19 2021-01-30 Completed [facility] of MODERNA 12+ YRS 00:00:00 [facility] ical VACCINE Branch SARS-COV-2 COVID-19 2021-01-30 Completed [facility] of MODERNA 12+ YRS 00:00:00 [facility] ical VACCINE Branch SARS-COV-2 COVID-19 2021-01-02 Completed [facility] VACCINE 00:00:00 [facility] SARS-COV-2 COVID-19 2021-01-02 Completed [facility]ERNA VACCINE 00:00:00 [facility] SARS-COV-2 COVID-19 2021-01-02 Completed [facility]NA VACCINE 00:00:00 [facility] SARS-COV-2 COVID-19 2021-01-02 Completed [facility] of MODERNA 12+ YRS 00:00:00 [facility] ical VACCINE Branch SARS-COV-2 COVID-19 2021-01-02 Completed [facility] of MODERNA 12+ YRS 00:00:00 [facility] ical VACCINE Branch Afluria single dose Afluria single dose 2020-09-06 Completed [facility] - 12:04:00 [facility] Afluria single dose Afluria single dose 2020-09-06 Completed [facility] - 12:04:00 [facility] Afluria single dose Afluria single dose 2020-09-06 Completed [facility] - 12:04:00 [facility] Afluria single dose Afluria single dose 2020-09-06 Completed [facility] - 12:04:00 [facility] Afluria single dose Afluria single dose 2020-09-06 Completed [facility] - 12:04:00 [facility] Afluria single dose Afluria single dose 2020-09-06 Completed [facility] - 12:04:00 [facility] Afluria single dose Afluria single dose 2020-09-06 Completed [facility] - 12:04:00 [facility] Afluria single dose Afluria single dose 2020-09-06 Completed [facility] - 12:04:00 [facility] Afluria single dose Afluria single dose 2020-09-06 Completed [facility] - 12:04:00 [facility] Afluria single dose Afluria single dose 2020-09-06 Completed [facility] - 12:04:00 [facility] Afluria single dose Afluria single dose 2020-09-06 Completed [facility] - 12:04:00 [facility] Afluria single dose Afluria single dose 2020-09-06 Completed [facility] - 12:04:00 [facility] Afluria single dose Afluria single dose 2020-09-06 Completed [facility] - 12:04:00 [facility] Afluria single dose Afluria single dose 2020-09-06 Completed [facility] - 12:04:00 [facility] Afluria single dose Afluria single dose 2020-09-06 Completed [facility] - 12:04:00 [facility] Afluria single dose Afluria single dose 2020-09-06 Completed [facility] - 12:04:00 [facility] Afluria single dose Afluria single dose 2020-09-06 Completed [facility] - 12:04:00 [facility] Afluria single dose Afluria single dose 2020-09-06 Completed [facility] - 12:04:00 [facility] Afluria single dose Afluria single dose 2020-09-06 Completed [facility] - 12:04:00 [facility] Afluria single dose Afluria single dose 2020-09-06 Completed [facility] - 12:04:00 [facility] Afluria single dose Afluria single dose 2020-09-06 Completed [facility] - 12:04:00 [facility] Afluria single dose Afluria single dose 2020-09-06 Completed [facility] - 12:04:00 [facility] Afluria single dose Afluria single dose 2020-09-06 Completed [facility] - 12:04:00 [facility] Afluria single dose Afluria single dose 2020-09-06 Completed [facility] - 12:04:00 [facility] Afluria single dose Afluria single dose 2020-09-06 Completed [facility] - 12:04:00 [facility] Afluria single dose Afluria single dose 2020-09-06 Completed [facility] - 12:04:00 [facility] Afluria single dose Afluria single dose 2020-09-06 Completed [facility] - 12:04:00 [facility] Afluria single dose Afluria single dose 2019-08-21 Completed [facility] - 15:26:00 [facility] Afluria single dose Afluria single dose 2019-08-21 Completed [facility] - 15:26:00 [facility] Afluria single dose Afluria single dose 2019-08-21 Completed [facility] - 15:26:00 [facility] Afluria single dose Afluria single dose 2019-08-21 Completed [facility] - 15:26:00 [facility] Afluria single dose Afluria single dose 2019-08-21 Completed [facility] - 15:26:00 [facility] Afluria single dose Afluria single dose 2019-08-21 Completed [facility] - 15:26:00 [facility] Afluria single dose Afluria single dose 2019-08-21 Completed [facility] - 15:26:00 [facility] Afluria single dose Afluria single dose 2019-08-21 Completed [facility] - 15:26:00 [facility] Afluria single dose Afluria single dose 2019-08-21 Completed [facility] - 15:26:00 [facility] Afluria single dose Afluria single dose 2019-08-21 Completed [facility] - 15:26:00 [facility] Afluria single dose Afluria single dose 2019-08-21 Completed [facility] - 15:26:00 [facility] Afluria single dose Afluria single dose 2019-08-21 Completed [facility] - 15:26:00 [facility] Afluria single dose Afluria single dose 2019-08-21 Completed [facility] - 15:26:00 [facility] Afluria single dose Afluria single dose 2019-08-21 Completed [facility] - 15:26:00 [facility] Afluria single dose Afluria single dose 2019-08-21 Completed [facility] - 15:26:00 [facility] Afluria single dose Afluria single dose 2019-08-21 Completed [facility] - 15:26:00 [facility] Afluria single dose Afluria single dose 2019-08-21 Completed [facility] - 15:26:00 [facility] Afluria single dose Afluria single dose 2019-08-21 Completed [facility] - 15:26:00 [facility] Afluria single dose Afluria single dose 2019-08-21 Completed [facility] - 15:26:00 [facility] Afluria single dose Afluria single dose 2019-08-21 Completed [facility] - 15:26:00 [facility] Afluria single dose Afluria single dose 2019-08-21 Completed [facility] - 15:26:00 [facility] Afluria single dose Afluria single dose 2019-08-21 Completed [facility] - 15:26:00 [facility] Afluria single dose Afluria single dose 2019-08-21 Completed [facility] - 15:26:00 [facility] Afluria single dose Afluria single dose 2019-08-21 Completed [facility] - 15:26:00 [facility] Afluria single dose Afluria single dose 2019-08-21 Completed [facility] - 15:26:00 [facility] Afluria single dose Afluria single dose 2019-08-21 Completed [facility] - 15:26:00 [facility] Afluria single dose Afluria single dose 2019-08-21 Completed [facility] - 15:26:00 [facility] Afluria single dose Afluria single dose 2019-08-21 Completed [facility] - 00:00:00 [facility] Afluria Afluria 2018-09-20 Completed [facility] - 10:06:00 [facility] Afluria Afluria 2018-09-20 Completed [facility] - 10:06:00 [facility] Afluria Afluria 2018-09-20 Completed [facility] - 10:06:00 [facility] Afluria Afluria 2018-09-20 Completed [facility] - 10:06:00 [facility] Afluria Afluria 2018-09-20 Completed [facility] - 10:06:00 [facility] Afluria Afluria 2018-09-20 Completed [facility] - 10:06:00 [facility] Afluria Afluria 2018-09-20 Completed [facility] - 10:06:00 [facility] Afluria Afluria 2018-09-20 Completed [facility] - 10:06:00 [facility] Afluria Afluria 2018-09-20 Completed [facility] - 10:06:00 [facility] Afluria Afluria 2018-09-20 Completed [facility] - 10:06:00 [facility] Afluria Afluria 2018-09-20 Completed [facility] - 10:06:00 [facility] Afluria Afluria 2018-09-20 Completed [facility] - 10:06:00 [facility] Afluria Afluria 2018-09-20 Completed [facility] - 10:06:00 [facility] Afluria Afluria 2018-09-20 Completed [facility] - 10:06:00 [facility] Afluria Afluria 2018-09-20 Completed [facility] - 10:06:00 [facility] Afluria Afluria 2018-09-20 Completed [facility] - 10:06:00 [facility] Afluria Afluria 2018-09-20 Completed [facility] - 10:06:00 [facility] Afluria Afluria 2018-09-20 Completed [facility] - 10:06:00 [facility] Afluria Afluria 2018-09-20 Completed [facility] - 10:06:00 [facility] Afluria Afluria 2018-09-20 Completed [facility] - 10:06:00 [facility] Afluria Afluria 2018-09-20 Completed [facility] - 10:06:00 [facility] Afluria Afluria 2018-09-20 Completed [facility] - 10:06:00 [facility] Afluria Afluria 2018-09-20 Completed [facility] - 10:06:00 [facility] Afluria Afluria 2018-09-20 Completed [facility] - 10:06:00 [facility] Afluria Afluria 2018-09-20 Completed [facility] - 10:06:00 [facility] Afluria Afluria 2018-09-20 Completed [facility] - 10:06:00 [facility] Afluria Afluria 2018-09-20 Completed [facility] - 10:06:00 [facility] Pneumococcal 2013-06-06 Completed [facility] [...] Time Observation Value Comments Source Systolic blood 2022-10-30 21:21:00 139 mm[facility]Hg[facility] 2022-10-30 21:21:00 82 mm[facility]Hg[facility] 2022-10-30 21:21:00 60 /min [facility] Respiratory rate 2022-10-30 21:21:00 19 /min [facility] height 2022-10-30 21:21:00 170.2 cm [facility] Body weight 2022-10-30 21:21:00 144.244 kg [facility] BMI 2022-10-30 21:21:00 49.81 kg/m2 [facility] Oxygen saturation in 2022-10-30 21:21:00 96 /min [facility] Arterial blood by [facility] Pulse oximetry Branch height 2022-09-18 11:00:00 67 [in_i] [facility] weight 2022-09-18 11:00:00 327.8 [lb_av] [facility] temperature 2022-09-18 11:00:00 97.0 [degF] [facility] bmi 2022-09-18 11:00:00 51.34 kg/m2 [facility] oximetry 2022-09-18 11:00:00 98 % [facility] respiratory rate 2022-09-18 11:00:00 15 /min [facility] blood pressure 2022-09-18 11:00:00 123 mm[Hg] [facility] - systolic [facility] blood pressure 2022-09-18 11:00:00 74 mm[Hg] [facility] - diastolic [facility] height 2022-08-28 14:40:00 67 [in_i] [facility] weight 2022-08-28 14:40:00 329 [lb_av] [facility] bmi 2022-08-28 14:40:00 51.52 kg/m2 [facility] oximetry 2022-08-28 14:40:00 96 % [facility] 2022-08-28 14:40:00 25 /min [facility] blood pressure 2022-08-28 14:40:00 119 mm[Hg] [facility] - systolic [facility] blood pressure 2022-08-28 14:40:00 59 mm[Hg] [facility] - diastolic [facility] height 2022-07-11 11:00:00 67 [in_i] [facility] weight 2022-07-11 11:00:00 318.6 [lb_av] [facility] temperature 2022-07-11 11:00:00 97.3 [degF] [facility] bmi 2022-07-11 11:00:00 49.89 kg/m2 [facility] oximetry 2022-07-11 11:00:00 99 % [facility] respiratory rate 2022-07-11 11:00:00 15 /min [facility] blood pressure 2022-07-11 11:00:00 129 mm[Hg] [facility] - systolic [facility] blood pressure 2022-07-11 11:00:00 76 mm[Hg] [facility] - diastolic [facility] Systolic blood 2022-04-20 18:36:00 95 mm[Hg] [facility] Diastolic blood 2022-04-20 18:36:00 66 mm[Hg] [facility] Heart rate 2022-04-20 18:36:00 60 /min [facility] Body temperature 2022-04-20 18:36:00 36.67 [facility] Res[facility] rate 2022-04-20 18:36:00 18 /min [facility] height 2022-04-20 18:36:00 170.2 cm [facility] Body weight 2022-04-20 18:36:00 145.151 kg [facility] BMI 2022-04-20 18:36:00 50.12 kg/m2 [facility] height 2022-04-10 10:40:00 67 [in_i] [facility] weight 2022-04-10 10:40:00 318.6 [lb_av] [facility] temperature 2022-04-10 10:40:00 97.7 [degF] [facility] bmi 2022-04-10 10:40:00 49.89 kg/m2 [facility] oximetry 2022-04-10 10:40:00 98 % [facility] respiratory rate 2022-04-10 10:40:00 17 /min [facility] blood pressure 2022-04-10 10:40:00 127 mm[Hg] [facility] - systolic [facility] blood pressure 2022-04-10 10:40:00 79 mm[Hg] [facility] - diastolic [facility] height 2022-01-02 15:20:00 67 [in_i] [facility] weight 2022-01-02 15:20:00 317.2 [lb_av] [facility] temperature 2022-01-02 15:20:00 96.4 [degF] [facility] bmi 2022-01-02 15:20:00 49.68 kg/m2 [facility] oximetry 2022-01-02 15:20:00 97 % [facility] respiratory rate 2022-01-02 15:20:00 15 /min [facility] blood pressure 2022-01-02 15:20:00 96 mm[Hg] [facility] - systolic [facility] blood pressure 2022-01-02 15:20:00 60 mm[Hg] [facility] - diastolic [facility] height 2021-12-14 10:00:00 67 [in_i] [facility] weight 2021-12-14 10:00:00 320 [lb_av] [facility] temperature 2021-12-14 10:00:00 96 [degF] [facility] bmi 2021-12-14 10:00:00 50.11 kg/m2 [facility] height 2021-11-10 09:20:00 67 [in_i] [facility] weight 2021-11-10 09:20:00 322 [lb_av] [facility] temperature 2021-11-10 09:20:00 97.6 [degF] [facility] bmi 2021-11-10 09:20:00 50.43 kg/m2 [facility] oximetry 2021-11-10 09:20:00 98 % [facility] blood pressure 2021-11-10 09:20:00 131 mm[Hg] [facility] - systolic [facility] blood pressure 2021-11-10 09:20:00 82 mm[Hg] [facility] - diastolic [facility] height 2021-10-07 11:20:00 67 [in_i] [facility] weight 2021-10-07 11:20:00 319.8 [lb_av] Common [facility] temperature 2021-10-07 11:20:00 97.2 [degF] [facility] bmi 2021-10-07 11:20:00 50.08 kg/m2 [facility] oximetry 2021-10-07 11:20:00 97 % [facility] respiratory rate 2021-10-07 11:20:00 18 /min [facility] blood pressure 2021-10-07 11:20:00 111 mm[Hg] [facility] - systolic [facility] blood pressure 2021-10-07 11:20:00 73 mm[Hg] Common [facility] diastolic [facility] Procedures This patient has no known procedures. Encounters Start End Encounter Admission Attending Care Care Encounter Source Date/Time Date/Time Type Type Clinicians Facility Department ID 2022-09-14 Outpatient Shabazz, Na STLMLC STLMLC [id number] [facility] 13:58:00 [facility] [facility] 2022-07-07 Outpatient Shabazz, Na STLMLC STLMLC [id number] 2 Common 10:36:00 [facility] 2022-04-10 Outpatient Shabazz, Na STLMLC STLMLC [id number] 2 Common 10:21:15 [facility] 2022-04-06 Outpatient Shabazz, Na STLMLC STLMLC [id number] 2 Common 11:08:00 [facility] 2022-01-25 Outpatient Shabazz, Na STLMLC STLMLC [id number] 2 Common 10:27:01 [facility] 2022-01-02 Outpatient Shabazz, Na STLMLC STLMLC [id number] 2 Common 16:38:01 [facility] 2021-12-21 Outpatient Shabazz, Na STLMLC STLMLC [id number] 2 Common 14:25:40 [id number] [facility] 2021-12-21 Outpatient Shabazz, Na STLMLC STLMLC [id number] 2 Common 14:24:21 [id number] [facility] 2021-12-21 Outpatient Shabazz, Na STLMLC STLMLC [id number] 2 Common 14:13:58 [id number] [facility] 2021-12-21 Outpatient Shabazz, Na STLMLC STLMLC [id number] 2 Common 14:12:46 [id number] [facility] 2021-12-21 Outpatient Shabazz, Na STLMLC STLMLC [id number] 2 Common 13:36:34 [id number] [facility] 2021-12-21 Outpatient Shabazz, Na STLMLC STLMLC [id number] 2 Common 13:35:25 [id number] [facility] 2021-12-21 Outpatient Shabazz, Na STLMLC STLMLC [id number] 2 Common 13:20:19 [id number] [facility] 2021-12-21 Outpatient Shabazz, Na STLMLC STLMLC [id number] 2 Common 13:19:52 [id number] [facility] 2021-12-21 Outpatient Shabazz, Na STLMLC STLMLC [id number] 2 Common 12:41:36 [id number] [facility] 2021-12-21 Outpatient Shabazz, Na STLMLC STLMLC [id number] 2 Common 12:26:03 [id number] [facility] 2021-12-21 Outpatient Shabazz, Na STLMLC STLMLC [id number] 2 Common 12:18:00 [id number] [facility] 2021-12-21 Outpatient Shabazz, Na STLMLC STLMLC [id number] 2 Common 11:54:00 [id number] [facility] 2021-12-21 Outpatient Shabazz, Na STLMLC STLMLC [id number] 2 Common 11:53:41 [id number] [facility] 2021-12-21 Outpatient Shabazz, Na STLMLC STLMLC [id number] 2 Common 11:53:09 [id number] [facility] 2021-12-21 Outpatient Shabazz, Na STLMLC STLMLC [id number] 2 Common 11:35:33 [id number] [facility] 2021-12-21 Outpatient Shabazz, Na STLMLC STLMLC [id number] 2 Common 11:20:32 [id number] [facility] 2021-12-21 Outpatient Shabazz, Na STLMLC STLMLC [id number] 2 Common 11:18:09 [id number] [facility] 2023-04-20 2023-04-20 Outpatient R LAYLA [facility] [id number] Univers 10:30:00 10:30:00 [facility] 2023-04-20 2023-04-20 [facility] [id number] Univers 10:30:00 10:30:00 [facility] 2022-11-01 2022-11-01 (TEL) STLMLC STLMLC [id number] Co mmon 00:00:00 00:00:00 [facility] 2022-10-31 2022-10-31 (TEL) STLMLC STLMLC [id number] Co mmon 00:00:00 00:00:00 [facility] 2022-10-30 2022-10-30 [facility] [id number] Univers 15:30:00 16:33:07 [facility] 2022-10-30 2022-10-30 [facility] [id number] Univers 15:30:00 16:33:07 Visit [facility] [id number] it y of [place] 4.2.7.2.686 Mitesh as JASON?BLEA [phone] Ak muna SHETH [address] [place] [address] MEDICAL OFFICE BUILDING 2022-10-09 2022-10-09 (TEL) STLMLC STLMLC [id number] Co mmon 00:00:00 00:00:00 Spirit [facility] 2022-09-18 2022-09-18 OFFICE STLMLC STLMLC [id number] Co mmon 00:00:00 00:00:00 VISIT EST Spir it PT LEVEL 3 - [facility] 2022-08-28 2022-08-28 OFFICE STLMLC STLMLC [id number] Co mmon 00:00:00 00:00:00 VISIT Spirit ESTAB PT - CHI LEVEL 2 [facility] 2022-07-28 2022-07-28 (TEL) STLMLC STLMLC [id number] Co mmon 00:00:00 00:00:00 [facility] 2022-07-27 2022-07-27 (TEL) STLMLC STLMLC [id number] Co mmon 00:00:00 00:00:00 [facility] 2022-07-11 2022-07-11 OFFICE STLMLC STLMLC [id number] Co mmon 00:00:00 00:00:00 VISIT Spirit ESTAB PT - CHI LEVEL 4 [facility] 2022-05-31 2022-05-31 (TEL) STLMLC STLMLC [id number] Co mmon 00:00:00 00:00:00 [facility] 2022-05-05 2022-05-05 [facility] [id number] Univers 09:04:49 23:59:[address] [facility] 2022-05-05 2022-05-05 [facility] 1.2.840.114 [id number] Univers 09:04:49 23:59:00 Encounter Opal BIRD 350.1.13.10 kenny [facility] 4.2.7.2.686 [place] [facility] [phone] [place] [address] [place] 2022-05-02 2022-05-02 Telephone Ashlie FITZPATRICK 1.2.840.114 [id number] [facility] 00:00:00 00:00:00 , Anny CRENSHAW 350.1.13.10 ity of [place] 4.2.7.2.686 Jovanni velarde [phone] [place] [id number] [place] 2022-04-20 2022-04-20 Outpatient R ADUM, [facility] [id number] Univers 13:30:00 14:15:17 OPAL itjaye [facility] 2022-04-20 2022-04-20 Office Ad, [facility] 1.2.840.114 [id number] Univers 13:30:00 14:15:17 Visit Opal BIRD [id number] ity of [place] 4.2.7.2.686 Jovanni CUEVAS [id number] [address] 2022-04-20 2022-04-20 (TEL) STLMLC STLMLC [id number] Co mmon 00:00:00 00:00:00 [facility] 2022-04-10 2022-04-10 OFFICE STLMLC STLMLC [id number] Co mmon 00:00:00 00:00:00 VISIT Spirit ESTAB PT - CHI LEVEL 4 [facility] 2022-03-16 2022-03-16 [facility] [id number] Univers 15:30:00 15:30:00 OPAL itjaye [facility] 2022-03-09 2022-03-09 (TEL) STLMLC STLMLC [id number] Co mmon 00:00:00 00:00:00 Spirit [facility] 2022-02-06 2022-02-06 (TEL) STLMLC STLMLC [id number] Co mmon 00:00:00 00:00:00 [facility] 2022-01-26 2022-01-26 OFFICE STLMLC STLMLC [id number] Co mmon 00:00:00 00:00:00 VISIT EST Spir it PT LEVEL 3 - [facility] 2022-01-02 2022-01-02 (TEL) STLMLC STLMLC [id number] Co mmon 00:00:00 00:00:00 [facility] 2022-01-02 2022-01-02 OFFICE STLMLC STLMLC [id number] Co mmon 00:00:00 00:00:00 VISIT Spirit ESTAB PT - CHI LEVEL 2 [facility] 2021-12-14 2021-12-14 OFFICE STLMLC STLMLC [id number] Co mmon 00:00:00 00:00:00 VISIT EST Spir it PT LEVEL 3 - [facility] 2021-11-24 2021-11-24 OFFICE STLMLC STLMLC [id number] Co mmon 00:00:00 00:00:00 VISIT EST Spir it PT LEVEL 3 - [facility] 2021-11-23 2021-11-23 (TEL) STLMLC STLMLC [id number] Co mmon 00:00:00 00:00:00 [facility] 2021-11-21 2021-11-21 (TEL) STLMLC STLMLC [id number] Co mmon 00:00:00 00:00:00 [facility] 2021-11-10 2021-11-10 OFFICE STLMLC STLMLC [id number] Co mmon 00:00:00 00:00:00 VISIT Spirit ESTAB PT - CHI LEVEL 4 [facility] 2021-10-14 2021-10-14 (TEL) STLMLC STLMLC [id number] Co mmon 00:00:00 00:00:00 [facility] 2021-10-07 2021-10-07 (COVID STLMLC STLMLC [id number] Co mmon 00:00:00 00:00:00 Inj) COVID Spi rit Injection - [facility] 2021-10-07 2021-10-07 OFFICE STLMLC STLMLC [id number] Co mmon 00:00:00 00:00:00 VISIT Spirit ESTAB PT - CHI LEVEL 4 [facility] 2021-10-06 2021-10-06 (TEL) STLMLC STLMLC [id number] Co mmon 00:00:00 00:00:00 [facility] 2021-09-22 2021-09-22 (TEL) STLMLC STLMLC [id number] Co mmon 00:00:00 00:00:00 [facility] 2021-08-06 2021-08-07 Inpatient TINY Hook TELE [id number] [facility] 05:39:00 12:45:00 [place] 36 [facility] 2021-08-02 2021-08-02 (TEL) STLMLC STLMLC [id number] Co mmon 00:00:00 00:00:00 [facility] 2021-07-11 2021-07-11 Outpatient STLMLC STLMLC [id number] Common 00:00:00 00:00:00 [facility] 2021-07-05 2021-07-05 Outpatient STLMLC STLMLC [id number] Common 00:00:00 00:00:00 [facility] 2021-06-08 2021-06-08 Outpatient STLMLC STLMLC [id number] Common 00:00:00 00:00:00 [facility] 2021-05-25 2021-05-25 Outpatient STLMLC STLMLC [id number] Common 00:00:00 00:00:00 [facility] 2021-05-17 2021-05-17 Outpatient STLMLC STLMLC [id number] Common 00:00:00 00:00:00 [facility] 2021-04-19 2021-04-19 Outpatient STLMLC STLMLC [id number] Common 00:00:00 00:00:00 [facility] 2021-04-15 2021-04-15 Outpatient STLMLC STLMLC [id number] Common 00:00:00 00:00:00 [facility] 2021-03-31 2021-03-31 Outpatient STLMLC STLMLC [id number] Common 00:00:00 00:00:00 [facility] 2021-03-24 2021-03-24 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 2, Adc Lab [facility] 1.2.840.114 [id number] Univers 13:35:27 13:50:27 Visit Opal Gardner 350.1.13.10 ity of [place] [phone] Me dical formerly [facility] 353 [facility] 2021-03-24 2021-03-24 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 2, Adc Lab [facility] 1.2.840.114 [id number] 13:35:27 13:50:27 Visit [place] 350.1.13.10 [place] 4.2.7.2.686 Professio [id number] [address] 2021-03-24 2021-03-24 Outpatient R ADUM, [facility] [id number] Univers 13:15:00 13:15:00 OPAL cox [facility] 2021-03-11 2021-03-11 Office Ad, [facility] 1.2.840.114 [id number] Univers 14:23:31 16:29:07 Visit Opal Hug[place]on 350.1.13.10 ity of [place].2.7.2.686 [place] [phone] Ak dical [facility] 134 [facility] 2021-03-11 2021-03-11 Office Ad, [facility] 1.2.840.114 [id number] 14:23:31 16:29:07 Visit Opal Bird 350.1.13.10 [place] 4.2.7.2.686 Professio [phone] [address] 2021-03-11 2021-03-11 Outpatient R ADUM, [facility] [id number] Univers 14:30:00 14:30:00 OPAL cox [facility] 2021-03-11 2021-03-11 Orders Doctor AURELIA 1.2.840.114 [id number] Univers 00:00:00 00:00:00 Only Unassigned, RENALDO 350.1.13.10 ity of [place] [facility] 4.2.7.2.686 Mitesh as [phone] [address] 2021-03-10 2021-03-10 Telephone Kathy Lazo 1.2.684.740 [id number] Univers 00:00:00 00:00:00 Inga Crenshaw 350.1.13.10 it y of [place] 4.2.7.2.686 Jovanni velarde [phone] [place] [address] [place] 2021-02-25 2021-02-25 Outpatient STLMLC STLMLC [id number] Common 00:00:00 00:00:00 [facility] 2021-02-20 2021-02-20 Outpatient STLMLC STLMLC [id number] Common 00:00:00 00:00:00 [facility] 2021-02-15 2021-02-15 Outpatient STLMLC STLMLC [id number] Common 00:00:00 00:00:00 [facility] 2021-02-11 2021-02-11 Outpatient STLMLC STLMLC [id number] Common 00:00:00 00:00:00 [facility] 2021-02-10 2021-02-10 Outpatient STLMLC STLMLC [id number] Common 00:00:00 00:00:00 [facility] 2021-02-09 2021-02-09 Outpatient STLMLC STLMLC [id number] Common 00:00:00 00:00:00 [facility] 2021-02-07 2021-02-07 Outpatient STLMLC STLMLC [id number] Common 00:00:00 00:00:00 [facility] 2021-01-30 2021-01-30 Outpatient [facility] [id number] Univers 16:10:00 16:10:[address] [facility] 2021-01-29 2021-01-29 Outpatient STLMLC STLMLC [id number] Common 00:00:00 00:00:00 [facility] 2021-01-25 2021-01-25 Outpatient STLMLC STLMLC [id number] Common 00:00:00 00:00:00 [facility] 2021-01-18 2021-01-18 Outpatient STLMLC STLMLC [id number] Common 00:00:00 00:00:00 [facility] 2021-01-02 2021-01-02 Outpatient Alisha PETERSON [facility] [id number] Univers 15:10:00 15:10:[address] [facility] 2020-12-07 2020-12-07 Outpatient STLMLC STLMLC [id number] Common 00:00:00 00:00:00 [facility] 2020-11-04 2020-11-04 Outpatient STLMLC STLMLC [id number] Common 00:00:00 00:00:00 [facility] 2020-11-03 2020-11-03 Outpatient STLMLC STLMLC [id number] Common 00:00:00 00:00:00 [facility] 2020-09-27 2020-09-27 Outpatient STLMLC STLMLC [id number] Common 00:00:00 00:00:00 [facility] 2020-09-06 2020-09-06 Outpatient STLMLC STLMLC [id number] Common 00:00:00 00:00:00 [facility] 2020-07-06 2020-07-06 [facility] [id number] Common 11:42:00 11:42:00 t [facility] it Road [facility] 2020-07-05 2020-07-05 Out[facility] [id number] Common 10:00:00 10:00:00 t [facility] it Drive [facility] 2020-07-02 2020-07-02 [facility] 1.2.840.114 [id number] Univers 00:00:00 00:00:00 Peng Bird 350.1.13.10 ity [place] 4.2.7.2.686 Jovanni Cuevas [phone] Ak dical [facility] Branch [facility] 2020-06-14 2020-06-14 Outpatient [facility] [id number] Common 13:12:00 13:12:00 t [facility] it Drive [facility] 2020-06-01 2020-06-01 [facility] [id number] [id number] Univers 12:30:00 23:59:00 Encounter Peng Bird 350.1.13.10 [facility] [place].7.2.686 [place] [phone] [facility] 8[address] 2020-06-01 2020-06-01 Outpatient Alisha NE[place]ONPENG MCGOVERN [facility] [id number] Univers 00:00:00 00:00:00 PENG GLEZ [facility] 2020-05-28 2020-05-28 Refill [place] [facility] 1.2.840.114 [id number] Univers 00:00:00 00:00:00 Peng ORTIZ 350.1.13.10 ity [facility] 4.2.7.2.686 [place] [phone] Ak dic[address] 2020-05-27 2020-05-27 [facility] [id number] Common 15:57:00 15:57:00 [facility] 2020-05-11 2020-05-11 Outpatient Alisha MURPHYNEWTONPENG MCGOVERN [facility] [id number] Univers 00:00:00 00:00:00 PENG GLEZ [facility] 2020-05-11 2020-05-11 [facility] .2.840.114 [id number] Univers 00:00:00 00:00:00 Peng Bird 350.1.13.10 [facility] 4.2.7.2.686 [place] [facility] [phone] [place] 550342 [facility] 2020-05-04 2020-05-04 Outpatient [facility]ofi [facility] [id number] Common 13:46:00 13:46:00 [facility] 2020-04-29 2020-04-29 [facility] .2.840.114 [id number] Univers 00:00:00 00:00:00 Peng Bird 350.1.13.10 [facility] 4.2.7.2.[place] [phone] Ak dicut nal 2 [facility] 2020-04-23 2020-04-23 [facility] 1.2.840.114 [id number] Univers 00:00:00 00:00:00 Peng Bird 350.1.13.10 ity of [place] 4.2.7.2.[place] [phone] Ak dical nal 2 [facility] 2020-04-21 2020-04-21 Outpatient [facility] [id number] Common 16:33:00 16:33:00 t [facility] Road Spir it Road [facility] 2020-04-01 2020-04-01 Outpatient [facility] [id number] Common 10:40:00 10:40:[address] [facility] 2020-03-08 2020-03-08 Outpatient [facility] [id number] Common 16:19:00 16:19:[address] [facility] 2020-03-01 2020-03-01 Outpatient [facility] [id number] Common 14:28:00 14:28:[address] [facility] 2020-02-20 2020-02-20 Telemedici [place] [facility] 1.2.840.114 [id number] Univers 08:21:37 15:48:50 ne Visit Peng John Bird 350.1.13.10 ity of [place] 4.2.7.2.686 [place] [phone] [address] 2020-02-20 2020-02-20 Outpatient PENG SEXTON [facility] [id number] Univers 08:40:00 08:40:00 PENG GLEZ ity [facility] 2020-01-28 2020-01-28 Outpatient [facility]ofi [facility] [id number] Common 16:24:00 16:24:[address] [facility] 2020-01-13 2020-01-13 Orders Doctor MOSES 1.2.840.114 [id number] Univers 00:00:00 00:00:00 Only Unassigned, RENALDO 350.1.13.10 ity of [place] [facility] 4.2.7.2.686 Mitesh as [phone] [place] [address] [place] 2020-01-07 2020-01-07 Outpatient [facility] [id number] Common 11:21:00 11:21:[address] [facility] 2020-01-05 2020-01-05 Outpatient [facility] [id number] Common 14:40:00 14:40:[address] [facility] 2019-12-19 2019-12-19 Outpatient [facility] [id number] Common 11:20:00 11:20:[address] [facility] 2019-11-17 2019-11-17 Outpatient [facility] [id number] Common 10:40:00 10:40:[address] [facility] 2019-11-12 2019-11-12 Outpatient [facility] [id number] Common 15:22:00 15:22:[address] [facility] 2019-10-13 2019-10-13 Outpatient [facility] [id number] Common 08:38:00 08:38:[address] [facility] 2019-09-25 2019-09-25 Outpatient [facility] [id number] Common 09:55:00 09:55:[address] [facility] 2019-09-12 2019-09-12 Outpatient [facility] [id number] Common 10:00:00 10:00:[address] [facility] 2019-08-21 2019-08-21 Outpatient [facility] [id number] Common 14:20:00 14:20:[address] [facility] 2019-08-14 2019-08-14 Outpatient [facility] [id number] Common 09:45:00 09:45:00 t Specialty/U Sp gael Specialty rology - [facility] 2019-07-23 2019-07-23 Outpatient [facility] [id number] Common 09:30:00 09:30:00 t Specialty/U Sp gael Specialty rology - [facility] 2019-07-21 2019-07-21 Orders Doctor AURELIA 1.2.840.114 [id number] Univers 00:00:00 00:00:00 Only Unassigned, RENALDO 350.1.13.10 ity of [place] [facility] 4.2.7.2.686 Mitesh as [phone] [place] [address] [place] 2019-07-18 2019-07-18 Outpatient [facility] [id number] Common 13:20:00 13:20:00 t [facility] it Drive [facility] 2019-07-09 2019-07-09 Telephone [facility] 1.2.840.114 [id number] [facility] 00:00:00 00:00:00 [facility] 350.1.13.10 it y of Surgical 4.2.7.2.686 Mitesh as Specialti [phone] Ak dical es [address] [place] 2019-06-20 2019-06-20 Orders Doctor AURELIA 1.2.840.114 [id number] Univers 00:00:00 00:00:00 Only Unassigned, RENALDO 350.1.13.10 ity of [place] [facility] 4.2.7.2.686 Mitesh as [phone] [facility] [address] 2019-05-21 2019-05-21 Outpatient [facility] [id number] Common 13:45:00 13:45:00 t Specialty/U Sp gael Specialty rology - [facility] 2019-05-16 2019-05-16 Outpatient [facility] [id number] Common 11:30:00 11:30:00 t Specialty/U Sp gael Specialty rology - [facility] 2019-05-13 2019-05-13 Outpatient [facility] [id number] Common 10:40:00 10:40:[address] Sp[address] it [address] [facility] 2019-05-08 2019-05-08 Outpatient [facility] [id number] Common 11:30:00 11:30:00 t Specialty/U Sp gael Specialty rology - [facility] 2019-04-11 2019-04-11 Orders Doctor MOSES 1.2.840.114 [id number] Univers 00:00:00 00:00:00 Only Unassigned, RENALDO 350.1.13.10 ity of [place] [facility] 4.2.7.2.686 Mitesh as [phone] [place] [address] [place] 2019-03-13 2019-03-13 Outpatient [facility] [id number] Common 10:40:00 10:40:[address] it [address] [facility] 2019-02-19 2019-02-19 Outpatient [facility] [id number] Common 11:30:00 11:30:00 t Specialty/U Sp gael Specialty rology - [facility] 2019-02-14 2019-02-14 Outpatient [facility] [id number] Common 11:15:00 11:15:00 t Specialty/U Sp gael Specialty rology - [facility] 2019-02-05 2019-02-05 Outpatient [facility] [id number] Common 09:30:00 09:30:[address] [facility] 2019-01-17 2019-01-17 Outpatient [facility] [id number] Common 11:00:00 11:00:00 t Specialty/U Sp gael Specialty rology - [facility] 2019-01-13 2019-01-13 Outpatient [facility] [id number] Common 08:30:00 08:30:00 t Specialty/U Sp gael Specialty rology - [facility] 2018-12-24 2018-12-24 Outpatient [facility] [id number] Common 07:58:00 07:58:00 t Specialty/U Sp gael Specialty rology - [facility] 2018-12-17 2018-12-17 Outpatient [facility] [id number] Common 10:15:00 10:15:00 t Specialty/U Sp gael Specialty rology - [facility] 2018-12-13 2018-12-13 Outpatient [facility] [id number] Common 09:35:00 09:35:[address] [facility] 2018-12-11 2018-12-11 Outpatient [facility] [id number] Common 10:30:00 10:30:[address] [facility] 2018-08-22 2018-08-22 Outpatient [facility] [id number] Common 08:12:00 08:12:[address] [facility] 2018-08-20 2018-08-20 Outpatient [facility] [id number] Common 09:15:00 09:15:[address] [facility] 2018-08-05 2018-08-05 Outpatient [facility] [id number] Common 14:15:00 14:15:[address] [facility] 2015-02-17 2015-02-17 Orders Doctor AURELIA 1.2.840.114 [id number] Univers 00:00:00 00:00:00 Only Unassigned, RENALDO 350.1.13.10 ity of [place] [facility] 4.2.7.2.686 Mitesh as [phone] [address] 2014-08-19 2014-08-19 Orders Doctor AURELIA Kerr.2.840.114 [id number] Univers 00:00:00 00:00:00 Only Unassigned, RENALDO 350.1.13.10 ity of [place] [facility] 4.2.7.2.686 Imtesh as [phone] [place] [address] [place] 2014-07-28 2014-07-28 Orders Doctor AURELIA Kerr.2.840.114 [id number] Univers 00:00:00 00:00:00 Only Unassigned, RENALDO 350.1.13.10 ity of [place] [facility] 4.2.7.2.686 Mitesh as [phone] [address] 2014-06-18 2014-06-18 Orders Doctor AURELIA 1.2.840.114 [id number] [employer] 00:00:00 00:00:00 Only Unassigned, RENALDO 350.1.13.10 ity of [facility] 4.2.7.2.686 Mitesh as [phone] [address] 2013-05-09 2013-05-09 Orders Doctor AURELIA 1.2.840.114 [id number] [employer] 00:00:00 00:00:00 Only Unassigned, RENALDO 350.1.13.10 ity of [facility] 4.2.7.2.686 Mitesh as [phone] [address] 2012-09-30 2012-09-30 Orders Doctor MOSES 1.2.840.114 [id number] [employer] 00:00:00 00:00:00 Only Unassigned, RENALDO 350.1.13.10 ity of [facility] 4.2.7.2.686 Mitesh as [phone] [address] 2012-08-13 2012-08-13 Orders Doctor AURELIA 1.2.840.114 [id number] [employer] 00:00:00 00:00:00 Only Unassigned, RENALDO 350.1.13.10 ity of [facility] 4.2.7.2.686 Mitesh as [phone] [address] 2012-02-29 2012-02-29 Orders Doctor MOSES 1.2.840.114 [id number] [employer] 00:00:00 00:00:00 Only Unassigned, RENALDO 350.1.13.10 ity of [facility] 4.2.7.2.686 Mitesh as [phone] [address] Results Test Description Test Time Test Comments Results Result Comments Source GLUCOSE BEDSIDE TESTING 2021-08-07 08:33:00 Test Item Value Reference Range Interpretation Comme nts GLUCOSE BEDSIDE TESTING (test code = GLUBED) 72 MG/DL 60-99 N - XR CHEST [id number] 06:52:[address] [facility] : 1965 Sex: F Patient Name: SUSIE WHITTAKER Unit No: [id number] EXAMS: CPT CODE: [id number] XR CHEST 1V [id number] EXAM: CHEST ONE VIEW INDICATION: S/P ICD LOCATION: B2 COMPARISON: August 06, 2021 TECHNIQUE: APview of the chest FINDINGS: The heart size is enlarged. There is a cardiac pacing device in the leftchest with no apparent discontinuity of the leads. There are diffuse congestive changes throughout both lungs. No pneumothorax or pleural effusion is identified. The osseous structures are normal. IMPRESSION: Cardiomegaly with diffuse congestive changes bilaterally. No pneumothorax. at 0652 Reported and signed by: Holli Tolentino MD CC: Nupur Ortiz MD; Joselito Bai Technologist: Filiberto Rodriguez RT(R) Transcrpt Date/Tm/Trnsp: 08/07/2021 (0652) 16 Orig Print D/T: S: 08/07/2021 (0655) [facility] NAME: SUSIE [id number] PHYS: [place] [address] : 1965 AGE: 55 SEX: F LOC: Z.363 A PHONE #: [phone] EXAM DATE: 08/07/2021 STATUS: ADM IN FAX #: [phone] RADIOLOGY NO: PAGE 1 Signed ReportBASIC METABOLIC [id number] 06:15:00 Test Item Value Reference Range Interpretation [...] 8.9 MG/DL 8.4-10.2 N CA) CBC W/AUTO [id number] 05:40:00 Test Item Value Reference Range Interpretation [...] 0.00 K/mm3 0.0-0.1 N NRBC#) GLUCOSE BEDSIDE [id number] 20:22:00 Test Item Value Reference Range Interpretation Comments GLUCOSE BEDSIDE TESTING (test code = 92 MG/DL 60-99 N GLUBED) - XR CHEST [id number] 12:24:[address] [facility] : 1965 Sex: F Patient Name: SUSIE WHITTAKER Unit No: [id number] EXAMS: CPT CODE: [id number] XR CHEST 1V [id number] CLINICAL HISTORY: S/P ICD. LOCATION: A1 FINDINGS: [...] (1224) t.RC7 Orig Print D/T: S: 08/06/2021 (1227) [facility] NAME: SUSIE WHITTAKER [id number] PHYS: [place] [address] : 1965 AGE: 55 SEX: F LOC: LOUANN 1 PHONE #: [phone] EXAM DATE: 08/06/2021 STATUS: ADMIN FAX #: [phone] RADIOLOGY NO: PAGE 1 Signed ReportBASIC METABOLIC [id number] 09:16:00 Test Item Value Reference Range Interpretation [...] 9.3 MG/DL 8.4-10.2 N CA) Comments to Public Health Professor: NURSE WILL BRING SPECIMEN TO LABIs this [...] LIPOPROTEIN LDL (test 94 MG/DL 0-99 N OPTIM AL.........<100 code = LDL) mg/dLNEAR OPTIMAL/ABOVE OPTIMAL........ .100-12 9 mg/dL BORDERL INE HIGH.........13 0-159 mg/dL HIGH.........16 0-189 mg/dL VERY HIGH.........>/ = 190 mg/dL Comments to Public Health Professor: NURSE WILL BRING SPECIMEN TO LABIs this a LINE draw? N [id number] 09:16:00 Test Item Value Reference Range Interpretation Comments MAGNESIUM (test code = MAG) 1.8 MG/DL 1.6-2.3 N Comments to Public Health Professor: NURSE WILL BRING SPECIMEN TO LABIs this a LINE draw? N BASIC METABOLIC [id number] 09:05:00 Test Item Value Reference Range Interpretation [...] 9.3 MG/DL 8.4-10.2 N CA) Comments to Public Health Professor: NURSE WILL BRING SPECIMEN TO LABIs this [...] MG/DL 0-99 code = LDL) Comments to Public Health Professor: NURSE WILL BRING SPECIMEN TO LABIs this a LINE draw? N [id number] 09:05:00 Test Item Value Reference Range Interpretation Comments MAGNESIUM (test code = MAG) 1.8 MG/DL 1.6-2.3 N Comments to Public Health Professor: NURSE WILL BRING SPECIMEN TO LABIs this a LINE draw? N PROTHROMBIN [id number] 09:01:00 Test Item Value Reference Range Interpretation Comments PROTHROMBIN TIME 11.4 SECONDS 9.5-12.7 N PATIENT (test code = PTP) INTERNATIONAL NORMAL 1.0 0.86-1.14 N The INR is to be RATIO (test code = used only for INR) monitoring oral anticoagulantth erap y. INDICATION I NR VALUE ---- ---- ---- -------1. Prophylaxis, de ep venous thrombos is, including high risk surgery. 2.0 - 3.0 2. Prophylaxis, deep venous thrombosis, hi p surgery, treatm ent for deep venous thrombosis or pulmonary prevention of systemic emboli sm in patients wit h valvular heart disease, atrial fibrillation, tissue heart va lve, or acute myocar dial infarction. 2.0 - 3.0 3. Upkeep Worker al prosthesis hear t valves, recurre nt systemic emboli sm. 3.0 - 4.5 Comments to Public Health Professor: NURSE WILL BRING SPECIMEN TO LABPTT ACTIVATED 2021-08-06 09:01:00 Test Item Value Reference Range Interpretation Comments PTT ACTIVATED (test code = APTT) 31.5 SECONDS 25.1-36.5 N Comments to Public Health Professor: NURSE WILL BRING SPECIMEN TO LABCBC W/AUTO [...] 0.00 K/mm3 0.0-0.1 N NRBC#) Comments to Public Health Professor: NURSE WILL BRING SPECIMEN TO LABCOVID 19 Asymptomatic IH [id number] 05:59:00 Test Item Value Reference Range Interpretation Comments COVID 19 NEGATIVE Negative "Negative resul ts from Asymptomatic IH AG patients with symptom (test code = onset beyondfiv e days, COVNONPUIAG) should be treat ed as presumptive, andconfirmation with a molecular assay [...]
--- NOTE | 2022-11-02 22:21 | RAD REPORT ---
EXAM DESCRIPTION: RAD - Foot Left 3 View - 11/02/2022 9:54 pm CLINICAL HISTORY: PAIN COMPARISON: Foot Left 3 View dated 06/13/2022 FINDINGS: Soft tissue and nail bed injury is suspected involving the great toe. No underlying fractu res or radiopaque foreign bodies. Mild to moderate great toe soft tissue swelling.
[2022-11-02] MEDS ORDERED: MORPHINE 4 MG/ML SYR ONE (23:30)
[2022-11-02] MEDS ORDERED: LIDOCAINE 1% 20 ML MDV ONE (23:33)
--- NOTE | 2022-11-03 00:37 | EDPHYS ---
Physician Documentation [facility] Name: Madhavi Michael Age: 56 yrs Sex: Female : 1965 Arrival Date: 11/02/2022 Time: 20:31 Bed 12 Private MD: MALENA Physician Marcin Manuel HPI: 11/02 23:30 This 56 yrs old Black Female presents to ER via Wheelchair with complaints of Toe sb4 Injury. 23:30 Onset: The symptoms/episode began/occurred just prior to arrival. Patient reports that sb4 she hit her big toe on the cabinet and caused the nail to lift. She states it was initially bleeding but is not anymore. Complains of 10/10 pain. . Historical: - Allergies: 20:33 No Known Drug Allergies; hb - Home Meds: 20:33 Eliquis oral [Active]; hb - PMHx: 20:33 Asthma; Atrial Fib; COPD; CVA; Diabetes - NIDDM; Leaking Veins x2 Right Leg; hb neuropathy; sciatica; Sleep Apnea; - PSHx: 20:33 Pacemaker; hb - Immunization history:: Adult Immunizations up to date, Last tetanus immunization: unknown. - Social history:: Smoking status: Patient reports the use of cigarette tobacco products, smokes one pack cigarettes per day. ROS: 23:30 Constitutional: Negative for fever, chills, and weight loss, Eyes: Negative for injury, sb4 pain, redness, and discharge, ENT: Negative for injury, pain, and discharge, Cardiovascular: Negative for chest pain, palpitations, and edema, Respiratory: Negative for shortness of breath, cough, wheezing, and pleuritic chest pain, Abdomen/GI: Negative for abdominal pain, nausea, vomiting, diarrhea, and constipation. 23:30 MS/extremity: Positive for pain, left great toe. 23:30 Skin: Positive for ecchymosis, swelling. Exam: 23:30 Constitutional: This is a well developed, well nourished patient who is awake, alert, sb4 and in no acute distress. Head/Face: Normocephalic, atraumatic. ENT: Mucous membranes moist. Cardiovascular: Regular rate and rhythm with a normal S1 and S2. Respiratory: Lungs have equal breath sounds bilaterally, clear to auscultation and percussion. No rales, rhonchi or wheezes noted. No increased work of breathing, no retractions or nasal flaring. Abdomen/GI: Soft, non-tender, no distension. 23:30 Musculoskeletal/extremity: partial avulsion of left great toe nail. only connected at the base. lifted at a 90 degree angle. Vital Signs: 20:31 BP 133 / 70; Pulse 73; Resp 16; Temp 98.3; Pulse Ox 100% on R/A; Weight 148.78 kg; hb Height 5 ft. 7 in. (170.18 cm); Pain 10/10; 20:31 Body Mass Index 51.37 (148.78 kg, 170.18 cm) hb Procedures: 11/03 00:41 Performed Digital block of left great toe, removal of partially avulsed left great sb4 toenail, and reattachment.. Toe was digitally blocked with combination of 5 mL 1% lidocaine without epi and 5 mL bupivicaine. Was extensively cleaned with betadine. Toenail was then removed with forceps. It was trimmed and reembedded and anchored with a figure 8 5-0 prolene suture. Patient tolerated well. . MDM: 11/02 20:40 Patient medically screened. sb4 11/03 00:44 Data reviewed: vital signs, nurses notes, radiologic studies, plain films. sb4 11/02 21:09 Order name: Foot Left 3 View XRAY; Complete Time: 22:25 sb4 11/02 23:27 Order name: Dressing - Wound; Complete Time: 23:34 sb4 11/02 23:27 Order name: Gloves, Sterile; Complete Time: 23:33 sb4 11/02 23:27 Order name: Prolene, Sutures; Complete Time: 23:34 sb4 Administered Medications: 11/02 23:30 Drug: morphine 4 mg Route: IM; Site: left deltoid; hb 23:56 Drug: Lidocaine (1 %) 5 ml {Note: at bedside by provider.} Volume: 5 ml; Route: tw5 Infiltration; 23:56 Drug: Bupivacaine (0.5 %) 10 ml {Note: at bedside by provider.} Volume: 10 ml; Route: tw5 Infiltration; Disposition Summary: 11/03/22 00:36 Discharge Ordered Location: Home sb4 Problem: new sb4 Symptoms: have improved sb4 Condition: Stable sb4 Diagnosis - Contusion of left great toe with damage to nail, initial encounter sb4 Followup: sb4 - With: Enrique Cheema DPM - When: 1 week - Reason: Recheck today's complaints, Staple/Suture removal Discharge Instructions: - Discharge Summary Sheet sb4 - Fingernail or Toenail Removal, Adult, Care After sb4 Forms: - Medication Reconciliation Form sb4 - Thank You Letter sb4 - Antibiotic Education sb4 - Prescription Opioid Use sb4 Prescriptions: - Cephalexin 500 mg Oral Capsule - take 1 capsule by ORAL route every 12 hours for 10 days; 20 capsule; Refills: sb4 0, Product Selection Permitted - Tramadol 50 mg Oral Tablet - take 1 tablet by ORAL route every 8 hours as needed; 12 tablet; Refills: 0, sb4 Product Selection Permitted Signatures: Dispatcher [employer] Conchis Barnett RN RN Qing Frias 5 Valeria Don, RHODA PADmitri sb4 Corrections: (The following items were deleted from the chart) 11/03 00:45 00:41 Performed Digital block of left great toe, removal of partially avulsed left sb4 great toenail, and reattachment.. . sb4
--- NOTE | 2022-11-03 00:37 | ER ---
Nurse's Notes [facility] Name: Madhavi Michael Age: 56 yrs Sex: Female : 1965 Arrival Date: 11/02/2022 Time: 20:31 Bed 12 Private MD: Diagnosis: Contusion of left great toe with damage to nail, initial encounter Presentation: 11/02 20:31 Chief complaint: EMS states: Hit cabinet with left foot, left great toe nail lifted hb from nail bed, c/o pain 09/04. Bleeding controlled. Coronavirus screen: At this time, the client does not indicate any symptoms associated with coronavirus-19. Ebola Screen: No symptoms or risks identified at this time. Initial Sepsis Screen: Does the patient meet any 2 criteria? No. Patient's initial sepsis screen is negative. Does the patient have a suspected source of infection? No. Patient's initial sepsis screen is negative. Risk Assessment: Do you want to hurt yourself or someone else? Patient reports no desire to harm self or others. Onset of symptoms was November 02, 2022. 20:31 Method Of Arrival: Wheelchair hb 20:31 Acuity: SISSY 4 hb Triage Assessment: 20:32 General: Appears in no apparent distress. uncomfortable, Behavior is calm, cooperative. hb Pain: Pain currently is 10 out of 10 on a pain scale. Neuro: Level of Consciousness is awake, alert, obeys commands, Oriented to person, place, time, situation. Cardiovascular: Patient's skin is warm and dry. Respiratory: Respiratory effort is even, unlabored, Respiratory pattern is regular, symmetrical. Musculoskeletal: pt report left great toe pain, left foot dry dressing intact and in place. Historical: - Allergies: 20:33 No Known Drug Allergies; hb - Home Meds: 20:33 Eliquis oral [Active]; hb - PMHx: 20:33 Asthma; Atrial Fib; COPD; CVA; Diabetes - NIDDM; Leaking Veins x2 Right Leg; hb neuropathy; sciatica; Sleep Apnea; - PSHx: 20:33 Pacemaker; hb - Immunization history:: Adult Immunizations up to date, Last tetanus immunization: unknown. - Social history:: Smoking status: Patient reports the use of cigarette tobacco products, smokes one pack cigarettes per day. Screenin:37 Abuse screen: Denies threats or abuse. Denies injuries from another. Nutritional hb screening: No deficits noted. Tuberculosis screening: No symptoms or risk factors identified. Fall Risk None identified. Assessment: 23:57 General: Appears uncomfortable, obese, Behavior is anxious. Pain: Pain currently is 10 tw5 out of 10 on a pain scale. Neuro: No deficits noted. 23:57 Derm: toenail dislodged. tw5 11/03 01:29 Reassessment: Patient states feeling better. Patient states symptoms have improved. tw5 Vital Signs: 11/02 20:31 BP 133 / 70; Pulse 73; Resp 16; Temp 98.3; Pulse Ox 100% on R/A; Weight 148.78 kg; hb Height 5 ft. 7 in. (170.18 cm); Pain 10/10; 20:31 Body Mass Index 51.37 (148.78 kg, 170.18 cm) hb ED Course: 20:31 Patient arrived in ED. hb 20:32 Triage completed. hb 20:33 Arm band placed on. hb 20:39 Valeria Don PA-C is PHCP. sb4 20:39 Marcin Manuel MD is Attending Physician. sb4 21:57 Foot Left 3 View XRAY In Process Unspecified. EDMS 22:37 Patient has correct armband on for positive identification. hb 23:57 Door closed. Verbal reassurance given. tw5 23:57 avulsion repair of the toenail. Patient did not have IV access during this emergency tw5 room visit. 11/03 00:32 Enrique Cheema DPM is Referral Physician. sb4 01:29 Wound care: to located on Left first toenail was cleaned with Hibiclens, dressed with tw5 Neosporin, 4X4s, Kerlix. Administered Medications: 11/02 23:30 Drug: morphine 4 mg Route: IM; Site: left deltoid; hb 23:56 Drug: Lidocaine (1 %) 5 ml {Note: at bedside by provider.} Volume: 5 ml; Route: tw5 Infiltration; 23:56 Drug: Bupivacaine (0.5 %) 10 ml {Note: at bedside by provider.} Volume: 10 ml; Route: tw5 Infiltration; Medication: 23:57 VIS not applicable for this client. tw5 Outcome: 11/03 00:36 Discharge ordered by . sb4 01:29 Discharged to home via wheelchair, with family. tw5 01:29 Condition: good 01:29 Discharge instructions given to patient, Instructed on discharge instructions, follow up and referral plans. medication usage, Demonstrated understanding of instructions, follow-up care, medications, Prescriptions given X 2. 01:30 Patient left the ED. tw5 Signatures: Dispatcher [employer] EDConchis Wei RN RN hb Wood, Tiffany tw5 Valeria Don PA-C PA-Karla sb4
[2022-11-03 02:53] VITALS: BP 133/70; TEMP 98.3; O2SAT 100
== END 2022-11-03 01:30 | disposition home or self-care (01) ==
LOC: ER 19:59
PROC: 0HQRXZZ Repair Toe Nail, External Approach (ICD-10-PCS; principal; 2022-11-03)
DX: S90.212A Contusion of left great toe with damage to nail, initial encounter (principal)
CPT/HCPCS: 96372; 99284

== ENCOUNTER 2024-01-11 17:55 | Observation (INO) | payer OTHER ==
--- OUTSIDE RECORDS SUMMARY | 2024-01-11 18:08 | XMS REPORT | Continuity of Care Document ---
Author Name Unknown Address [address] [facility] [address] [place] [address] [facility] thconnect Address [address] [facility] [address] [place] [address] Care Team Providers Care Telephone Maintainer Name Role Phone Anna Moyer Primary Care Physician Xochilt Le Attending Clinician Unavailable Sofi Rush Attending Clinician Unavailable Halle Shabazz Attending Clinician Unavailable [email or web address] Attending Clinician Unavailable OPAL GARDNER Attending Clinician Unavailable Prasad Alarcon MD Attending Clinician [phone] PRASAD ALARCON Attending Clinician Brad soler Doctor Unassigned, [place] Attending Clinician Viviana Villarreal MA Attending Clinician UnavailASHLEY Gibson Attending Clinician UnavailAshley Richardson MD Attending Clinician [phone] TAMI MICHELE Attending Clinician Unavailable Opal Gardner MD Attending Clinician [phone] Anny Dailey RN Attending Clinician Unasakina Mooreq, [place] Attending Clinician Unavailable 2, [facility] Attending Clinician Unavailable Inga Lazo MA Attending Clinician UnavailJESSICA Will Attending Clinician Unavailable Peng Glez MD Attending Clinician [phone] PENG GLEZ Attending Clinician Unavail able PENG GLEZ Attending Clinician Unavail able [email or web address] Admitting Clinician Unavailable PRASAD ALARCON Admitting Clinician Prasad Arango MD Admitting Clinician + [phone] OPAL GARDNER Admitting Clinician Unavailable Richardson, Joselito Admitting Clinician Unavailable Payers Payer Name Policy Type Policy Number Effective Date Expirati on Date Source [facility] STAR PLUS [id number] 2015 00:00:00 [facility] PLUS C1 [id number] [id number] [id number] [id number] 2017 00:00:00 [facility] PLUS C1 [id number] 2017 00:00:00 [facility] Problems Condition Name Condition Details Condition Category Status Onset Date Resolution Date Last Treatment Date Treating Clinician Comments Source Varicose veins of lower extremity Varicose veins of lower extremity Disease Active 12-26 00:00: 00 [facility] Total knee replacemen t status Total knee replacemen t status Disease Active 05-01 00:00: 00 [facility] Knee pain, right Knee pain, right Disease Active 03-15 00:00: 00 [facility] Knee pain, right Knee pain, right Disease Active 03-15 00:00: 00 [facility] Abdominal distension Abdominal distension Disease Active 05-31 00:00: 00 [facility] Flank pain Flank pain Disease Active 05-31 00:00: 00 [facility] Asthma Asthma Disease Active 01-21 00:00: 00 Overview: Formattin g of this note might be different from the original. ICD10 Diagnosis Term Inspector [employer] Det[employer] Utility [facility] Dysthymia Chronic depressive person Problem Common [facility] History of cerebrovas cular accident without residual deficits H/O TIA (transient ischemic attack) and stroke Problem [facility] Nicotine dependence Cigarette nicotine dependence without complicati on Problem [facility] [id number] Acquired torticolli s Problem Common [facility] Asthma without status asthmaticu s Asthma, unspecifie d asthma severity, unspecifie d whether complicate d, unspecifie d whether persistent Problem [facility] [id number] Cervical radiculopa thy Problem Common [facility] [id number] Gastroesop hageal reflux disease without esophagiti s Problem [facility] [id number] Gingivitis Problem Comm on [facility] Osteoarthr osis, localized, secondary, involving lower leg Osteoarthr osis, localized, secondary, involving lower leg Problem Common [facility] [id number] Seasonal allergic rhinitis, unspecifie d trigger Problem Common [facility] Diabetes mellitus type 2 in nonobese Diabetes mellitus type 2 in nonobese Problem Common [facility] Lump Lump Problem Common [facility] [id number] Paroxysmal atrial fibrillati on Problem [facility] [id number] Body mass index (BMI) of 45.0-49.9 in adult Problem [facility] [id number] Abscess of vagina Problem [facility] Anemia Anemia Problem [facility] Edema Edema Problem [facility] Hypotensio n due to drugs Hypotensio n due to drugs Problem [facility] Hyperlipid emia Hyperlipid emia Problem [facility] [id number] Recurring cold staphyloco ccal abscesses Problem [facility] Gastroesop hageal reflux disease GERD (gastroeso phageal reflux disease) Problem [facility] [id number] Stress incontinen ce Problem [facility] Obstructiv e sleep apnea Obstructiv e sleep apnea Problem [facility] Type II diabetes mellitus without complicati on Controlled type 2 diabetes mellitus without complicati on, without long-term current use of insulin Problem [facility] Osteoarthr itis Osteoarthr itis Problem [facility] [id number] Decreased mobility Problem [facility] [id number] Hypertensi ve heart and chronic kidney disease without heart failure, with stage 1 through stage 4 chronic kidney disease, or unspecifie d chronic kidney disease Problem [facility] Long-term current use of anticoagul ant Anticoagul ated Problem [facility] [id number] Chronic kidney disease, stage 3a Problem [facility] Essential hypertensi on Elevated blood pressure reading with diagnosis of hypertensi on Problem [facility] [id number] Acute right-side d low back pain without sciatica Problem [facility] [id number] Dysuria Problem [facility] [id number] Thrombocyt openic Problem [facility] [id number] History of cholecyste ctomy Problem [facility] [id number] Atypical chest pain Problem [facility] Hypertensi on HTN (hypertens ion) Problem [facility] [id number] Facial pain Problem [facility] Morbid obesity Morbid obesity Problem [facility] [id number] Other chronic pain Problem [facility] [id number] Diverticul osis Problem [facility] Peripheral neuropathy Peripheral neuropathy Problem [facility] [id number] Proteus (mirabilis ) (morganii) as the cause of diseases classified elsewhere Problem [facility] [id number] Acute cystitis with hematuria Problem [facility] [id number] Pacemaker Problem Comm on [facility] [id number] COPD with acute exacerbati on Problem [facility] Thrombocyt openia Thrombocyt openia Problem [facility] [id number] Chronic fatigue Problem [facility] [id number] Chronic pain syndrome Problem [facility] [id number] Smoking greater than 30 pack years Problem [facility] Allergies, Adverse Reactions, Alerts Allergy Name Allergy Type Status Severity Reaction(s) Onset Date Inactive Date Treating Clinician Comments Source No Known Allergie s DA Active U 08-06 00:00: 00 [facility] No Known Allergie s DA Active U 08-06 00:00: 00 [facility] NO KNOWN ALLERGIE S Drug Class Active [facility] Social History Social Habit Start Date Stop Date Quantity Comments Source Sex Assigned At [facility] History of tobacco use Cigarette Smoker [facility] Alcohol intake 2023-03-08 00:00:00 2023-03-08 00:00:00 0 /d [facility] Exposure to SARS-CoV-2 (event) 2023-02-19 00:00:00 2023-03-01 12:51:00 Not sure [facility] Tobacco Comment 2022-10-30 00:00:00 2022-10-30 00:00:00 1 pack in 2 days [facility] Cigarettes smoked current (pack per day) - Reported 2022-10-30 00:00:2022-10-30 00:00:00 [facility] Cigarette pack-years 2022-10-30 00:00:00 2022-10-30 00:00:00 [facility] Tobacco use and exposure 2022-10-30 00:00:00 2022-10-30 00:00:00 Smokeless tobacco non-user [facility] Smoking Status Start Date Stop Date Source Current Smoker 2024-01-04 00:00:00 [facility] Medications Ordered Medication Name Filled Medication Name Start Date Stop Date Current Medication? Ordering Clinician Indication Dosage Frequency Signature (SIG) Comments Components Source Tamiflu 75 MG Tamiflu 75 MG 01-04 00:00: 00 No 1{capsu le} BID Tamiflu 75 MG Tamiflu 75 MG Tamiflu 75 MG 01-04 00:00: 00 No 1{capsu le} BID Tamiflu 75 MG predniSONE 20 MG predniSONE 20 MG 2022-11 2 00:00: 00 No 2{table t} QD predniSONE 20 MG Azithromyci n 250 MG Azithromyci n 250 MG 2022-11 2 00:00: 00 No QD Azithromyc in 250 MG Dextrometho rphan-guaiF ENesin 30-200 MG/5ML Dextrometho rphan-guaiF ENesin 30-200 MG/5ML 2022-11 2- 00:00: 00 No 5{ml_as _needed } TID Dextrometh orphan-gua iFENesin 30-200 MG/5ML predniSONE 20 MG predniSONE 20 MG 2022-11 2- 00:00: 00 No 2{table t} QD predniSONE 20 MG Azithromyci n 250 MG Azithromyci n 250 MG 2022-11 2- 00:00: 00 No QD Azithromyc in 250 MG Dextrometho rphan-guaiF ENesin 30-200 MG/5ML Dextrometho rphan-guaiF ENesin 30-200 MG/5ML 2022-11 2- 00:00: 00 No 5{ml_as _needed } TID Dextrometh orphan-gua iFENesin 30-200 MG/5ML predniSONE 20 MG predniSONE 20 MG 2022-11 2- 00:00: 00 No 2{table t} QD predniSONE 20 MG Azithromyci n 250 MG Azithromyci n 250 MG 2022-11 2- 00:00: 00 No QD Azithromyc in 250 MG Dextrometho rphan-guaiF ENesin 30-200 MG/5ML Dextrometho rphan-guaiF ENesin 30-200 MG/5ML 2022-11 2- 00:00: 00 No 5{ml_as _needed } TID Dextrometh orphan-gua iFENesin 30-200 MG/5ML predniSONE 20 MG predniSONE 20 MG 2022-11 2- 00:00: 00 No 2{table t} QD predniSONE 20 MG Azithromyci n 250 MG Azithromyci n 250 MG 2022-11 2- 00:00: 00 No QD Azithromyc in 250 MG Dextrometho rphan-guaiF ENesin 30-200 MG/5ML Dextrometho rphan-guaiF ENesin 30-200 MG/5ML 2022-11 2- 00:00: 00 No 5{ml_as _needed } TID Dextrometh orphan-gua iFENesin 30-200 MG/5ML predniSONE 20 MG predniSONE 20 MG 2022-11 2- 00:00: 00 No 2{table t} QD predniSONE 20 MG Azithromyci n 250 MG Azithromyci n 250 MG 2022-11 2- 00:00: 00 No QD Azithromyc in 250 MG Dextrometho rphan-guaiF ENesin 30-200 MG/5ML Dextrometho rphan-guaiF ENesin 30-200 MG/5ML 2022-11 2- 00:00: 00 No 5{ml_as _needed } TID Dextrometh orphan-gua iFENesin 30-200 MG/5ML predniSONE 20 MG predniSONE 20 MG 2022-11 2- 00:00: 00 No 2{table t} QD predniSONE 20 MG Azithromyci n 250 MG Azithromyci n 250 MG 2022-11 2- 00:00: 00 No QD Azithromyc in 250 MG Dextrometho rphan-guaiF ENesin 30-200 MG/5ML Dextrometho rphan-guaiF ENesin 30-200 MG/5ML 2022-11 2- 00:00: 00 No 5{ml_as _needed } TID Dextrometh orphan-gua iFENesin 30-200 MG/5ML predniSONE 20 MG predniSONE 20 MG 2022-11 2- 00:00: 00 No 2{table t} QD predniSONE 20 MG Azithromyci n 250 MG Azithromyci n 250 MG 2022-11 2- 00:00: 00 No QD Azithromyc in 250 MG Dextrometho rphan-guaiF ENesin 30-200 MG/5ML Dextrometho rphan-guaiF ENesin 30-200 MG/5ML 2022-11 2- 00:00: 00 No 5{ml_as _needed } TID Dextrometh orphan-gua iFENesin 30-200 MG/5ML predniSONE 20 MG predniSONE 20 MG 2022-11 2- 00:00: 00 No 2{table t} QD predniSONE 20 MG Azithromyci n 250 MG Azithromyci n 250 MG 2022-11 2- 00:00: 00 No QD Azithromyc in 250 MG Dextrometho rphan-guaiF ENesin 30-200 MG/5ML Dextrometho rphan-guaiF ENesin 30-200 MG/5ML 2022-11 2- 00:00: 00 No 5{ml_as _needed } TID Dextrometh orphan-gua iFENesin 30-200 MG/5ML predniSONE 20 MG predniSONE 20 MG 2022-11 2- 00:00: 00 No 2{table t} QD predniSONE 20 MG Azithromyci n 250 MG Azithromyci n 250 MG 2022-11 2- 00:00: 00 No QD Azithromyc in 250 MG Dextrometho rphan-guaiF ENesin 30-200 MG/5ML Dextrometho rphan-guaiF ENesin 30-200 MG/5ML 2022-11 2- 00:00: 00 No 5{ml_as _needed } TID Dextrometh orphan-gua iFENesin 30-200 MG/5ML predniSONE 20 MG predniSONE 20 MG 2022-11 2- 00:00: 00 No 2{table t} QD predniSONE 20 MG Azithromyci n 250 MG Azithromyci n 250 MG 2022-11 2- 00:00: 00 No QD Azithromyc in 250 MG Dextrometho rphan-guaiF ENesin 30-200 MG/5ML Dextrometho rphan-guaiF ENesin 30-200 MG/5ML 2022-11 2- 00:00: 00 No 5{ml_as _needed } TID Dextrometh orphan-gua iFENesin 30-200 MG/5ML predniSONE 20 MG predniSONE 20 MG 2022-11 2- 00:00: 00 No 2{table t} QD predniSONE 20 MG Azithromyci n 250 MG Azithromyci n 250 MG 2022-11 2- 00:00: 00 No QD Azithromyc in 250 MG Dextrometho rphan-guaiF ENesin 30-200 MG/5ML Dextrometho rphan-guaiF ENesin 30-200 MG/5ML 2022-11 2- 00:00: 00 No 5{ml_as _needed } TID Dextrometh orphan-gua iFENesin 30-200 MG/5ML predniSONE 20 MG predniSONE 20 MG 2022-11 2- 00:00: 00 No 2{table t} QD predniSONE 20 MG Azithromyci n 250 MG Azithromyci n 250 MG 2022-11 2- 00:00: 00 No QD Azithromyc in 250 MG Dextrometho rphan-guaiF ENesin 30-200 MG/5ML Dextrometho rphan-guaiF ENesin 30-200 MG/5ML 2022-11 2- 00:00: 00 No 5{ml_as _needed } TID Dextrometh orphan-gua iFENesin 30-200 MG/5ML predniSONE 20 MG predniSONE 20 MG 2022-11 2- 00:00: 00 No 2{table t} QD predniSONE 20 MG Azithromyci n 250 MG Azithromyci n 250 MG 2022-11 2- 00:00: 00 No QD Azithromyc in 250 MG Dextrometho rphan-guaiF ENesin 30-200 MG/5ML Dextrometho rphan-guaiF ENesin 30-200 MG/5ML 2022-11 2- 00:00: 00 No 5{ml_as _needed } TID Dextrometh orphan-gua iFENesin 30-200 MG/5ML Dextrometho rphan-guaiF ENesin 30-200 MG/5ML Dextrometho rphan-guaiF ENesin 30-200 MG/5ML 2022-11 2- 00:00: 00 No 5{ml_as _needed } TID Dextrometh orphan-gua iFENesin 30-200 MG/5ML Azithromyci n 250 MG Azithromyci n 250 MG 2022-11 2- 00:00: 00 No QD Azithromyc in 250 MG predniSONE 20 MG predniSONE 20 MG 2022-11 2- 00:00: 00 No 2{table t} QD predniSONE 20 MG Dextrometho rphan-guaiF ENesin 30-200 MG/5ML Dextrometho rphan-guaiF ENesin 30-200 MG/5ML 2022-11 2- 00:00: 00 No 5{ml_as _needed } TID Dextrometh orphan-gua iFENesin 30-200 MG/5ML Azithromyci n 250 MG Azithromyci n 250 MG 2022-11 2- 00:00: 00 No QD Azithromyc in 250 MG predniSONE 20 MG predniSONE 20 MG 2022-11 2- 00:00: 00 No 2{table t} QD predniSONE 20 MG sodium chloride (NS) injection 03-08 13:21: 00 03-08 13:31 :55 No PRN, Starting on Sun03/08/23 at 0821, Until Sun03/08/23 at 0831, Routine, Intra-op [facility] neomycin-po lymyxin-dex amethasone (MAXITROL) 3.5 mg/g-10,000 unit/g-0.1 % ophthalmic ointment 03-08 13:21: 00 03-08 13:31 :55 No PRN, Starting on Sun03/08/23 at 0821, Until Sun03/08/23 at 0831, Routine, Intra-op [facility] gentamicin injection 03-08 13:21: 00 03-08 13:31 :55 No PRN, Starting on Ayala 03/08/23 at 0821, Until Ayala 03/08/23 at 0831, BHUPINDER, Intra-op [facility] dexamethaso ne (DECADRON PHOSPHATE) injection 03-08 13:21: 00 03-08 13:31 :55 No PRN, Starting on Ayala 03/08/23 at 0821, Until Ayala 03/08/23 at 0831, Routine, Intra-op [facility] ceFAZolin (ANCEF) injection 03-08 13:21: 00 03-08 13:31 :55 No PRN, Starting on Ayala 03/08/23 at 0821, Until Ayala 03/08/23 at 0831, BHUPINDER, Intra-op [facility] chondroitin sulf-sod hyaluronate (DUOVISC VISCO ELASTIC) intraocular injection 03-08 13:15: 00 03-08 13:31 :55 No PRN, Starting on Ayala 03/08/23 at 0815, Until Ayala 03/08/23 at 0831, Routine, Intra-op [facility] EPINEPHrine (PF) 1:1,000 (1 mg/mL) (ADRENALIN (PF)) injection 03-08 13:14: 00 03-08 13:31 :55 No PRN, Starting on Ayala 03/08/23 at 0814, Until Ayala 03/08/23 at 0831, Routine, Intra-op [facility] balanced salt soln no.2 irrig. (BSS) ophthalmic solution 03-08 13:14: 00 03-08 13:31 :55 No PRN, Starting on Ayala 03/08/23 at 0814, Until Ayala 03/08/23 at 0831, Routine, Intra-op [facility] water for irrigation irrigation solution 03-08 13:09: 00 03-08 13:31 :55 No PRN, Starting on Ayala 03/08/23 at 0809, Until Ayala 03/08/23 at 0831, Routine, Intra-op [facility] tetracaine (PONTOCAINE ) 0.5 % ophthalmic drops 03-08 13:06: 00 03-08 13:31 :55 No PRN, Starting on Ayala 03/08/23 at 0806, Until Ayala 03/08/23 at 0831, Routine, Intra-op [facility] eye block syringe 11 mL 03-08 13:06: 00 03-08 13:31 :55 No PRN, Starting on Ayala 03/08/23 at 0806, Until Ayala 03/08/23 at 0831, Intra-op [facility] cyclopent 1%-tropic 1%-phenyl 2.5%-ketor 0.5% (MYDRIATIC #5) ophthalmic solution syringe 0.5 mL 03-08 12:30: 00 03-08 12:26 :00 No .5mL 0.5 mL, Right Eye, ONCE, 1 dose, On Ayala 03/08/23 at 0730, Routine, DSU Pre-op [facility] lactated ringers IV infusion 1,000 mL 03-08 12:30: 00 03-08 12:26 :00 No 1000mL at 42 mL/hr, 1,000 mL, IV Infusion, ONCE, 1 dose, On Ayala 03/08/23 at 0730, Routine, DSU Pre-op [facility] cyclopent 1%-tropic 1%-phenyl 2.5%-ketor 0.5% (MYDRIATIC #5) ophthalmic solution syringe 0.5 mL 03-08 12:30: 00 03-08 12:26 :00 No .5mL 0.5 mL, Right Eye, ONCE, 1 dose, On Ayala 03/08/23 at 0730, Routine, DSU Pre-op [facility] lactated ringers IV infusion 1,000 mL 03-08 12:30: 00 03-08 12:26 :00 No 1000mL at 42 mL/hr, 1,000 mL, IV Infusion, ONCE, 1 dose, On Ayala 03/08/23 at 0730, Routine, DSU Pre-op [facility] ferrous sulfate 325 mg (65 mg iron) tablet 03-08 09:15: 26 Yes 325mg Take 1 tablet by mouth in the morning. [facility] apixaban 2.5 mg tablet 03-08 09:15: 26 Yes 2.5mg Take 1 tablet by mouth in the morning. [facility] fluticasone furoate-giovanna anteroL 100-25 mcg/dose DsDv 03-08 09:15: [address] [facility] gabapentin 600 mg tablet 03-08 09:15: 26 Yes 600mg Take 1 tablet by mouth in the morning and 1 tablet at noon and 1 tablet in the evening. [facility] furosemide 80 mg tablet 03-08 09:15: 26 Yes 80mg Take 1 tablet by mouth in the morning and 1 tablet in the evening. [facility] rosuvastati n 10 mg tablet 03-08 09:15: 26 Yes 10mg Take 1 tablet by mouth in the morning. [facility] omeprazole 40 mg capsule 03-08 09:15: 26 Yes 40mg Take 1 capsule by mouth in the morning. [facility] metformin ER 500 mg 24 hr tablet 03-08 09:15: 26 Yes 500mg Take 1 tablet by mouth in the morning. [facility] montelukast 10 mg tablet 03-08 09:15: 26 Yes 10mg Take 1 tablet by mouth in the morning. [facility] mupirocin 2 % ointment 03-08 09:15: 26 Yes 1{dose} Apply 1 Dose to area(s) as needed. [facility] Nitrofurant oin&Nit. Macrocryst 100 mg capsule 03-08 09:15: 26 Yes 100mg Take 1 capsule by mouth in the morning and 1 capsule in the evening. [facility] ferrous sulfate 325 mg (65 mg iron) tablet 03-08 09:15: 26 Yes 325mg Take 1 tablet by mouth in the morning. [facility] apixaban 2.5 mg tablet 03-08 09:15: 26 Yes 2.5mg Take 1 tablet by mouth in the morning. [facility] fluticasone furoate-giovanna anteroL 100-25 mcg/dose DsDv 03-08 09:15: [address] [facility] gabapentin 600 mg tablet 03-08 09:15: 26 Yes 600mg Take 1 tablet by mouth in the morning and 1 tablet at noon and 1 tablet in the evening. [facility] furosemide 80 mg tablet 03-08 09:15: 26 Yes 80mg Take 1 tablet by mouth in the morning and 1 tablet in the evening. [facility] rosuvastati n 10 mg tablet 03-08 09:15: 26 Yes 10mg Take 1 tablet by mouth in the morning. [facility] omeprazole 40 mg capsule 03-08 09:15: 26 Yes 40mg Take 1 capsule by mouth in the morning. [facility] metformin ER 500 mg 24 hr tablet 03-08 09:15: 26 Yes 500mg Take 1 tablet by mouth in the morning. [facility] montelukast 10 mg tablet 03-08 09:15: 26 Yes 10mg Take 1 tablet by mouth in the morning. [facility] mupirocin 2 % ointment 03-08 09:15: 26 Yes 1{dose} Apply 1 Dose to area(s) as needed. [facility] Nitrofurant oin&Nit. Macrocryst 100 mg capsule 03-08 09:15: 26 Yes 100mg Take 1 capsule by mouth in the morning and 1 capsule in the evening. [facility] ferrous sulfate 325 mg (65 mg iron) tablet 03-08 09:15: 26 Yes 325mg Take 1 tablet by mouth in the morning. [facility] apixaban 2.5 mg tablet 03-08 09:15: 26 Yes 2.5mg Take 1 tablet by mouth in the morning. [facility] fluticasone furoate-giovanna anteroL 100-25 mcg/dose DsDv 03-08 09:15: [address] [facility] gabapentin 600 mg tablet 03-08 09:15: 26 Yes 600mg Take 1 tablet by mouth in the morning and 1 tablet at noon and 1 tablet in the evening. [facility] furosemide 80 mg tablet 03-08 09:15: 26 Yes 80mg Take 1 tablet by mouth in the morning and 1 tablet in the evening. [facility] rosuvastati n 10 mg tablet 03-08 09:15: 26 Yes 10mg Take 1 tablet by mouth in the morning. [facility] omeprazole 40 mg capsule 03-08 09:15: 26 Yes 40mg Take 1 capsule by mouth in the morning. [facility] metformin ER 500 mg 24 hr tablet 03-08 09:15: 26 Yes 500mg Take 1 tablet by mouth in the morning. [facility] montelukast 10 mg tablet 03-08 09:15: 26 Yes 10mg Take 1 tablet by mouth in the morning. [facility] mupirocin 2 % ointment 03-08 09:15: 26 Yes 1{dose} Apply 1 Dose to area(s) as needed. [facility] Nitrofurant oin&Nit. Macrocryst 100 mg capsule 03-08 09:15: 26 Yes 100mg Take 1 capsule by mouth in the morning and 1 capsule in the evening[address] [facility] albuterol-i pratropium (COMBIVENT INHALER) 18-103 mcg/actuati on inhaler 03-08 09:15: 25 Yes Inhale 4 (four) times daily. [facility] FLUTICASONE PROPIONATE (FLOVENT ROTADISK INHALE) 03-08 09:15: 25 Yes 2{puff} Inhale [address] [facility] propranolol (INDERAL) 40 mg tablet 03-08 09:15: 25 Yes 40mg Take 1 tablet by mouth in the morning. [facility] aspirin 81 mg chewable tablet 03-08 09:15: 25 Yes 81mg Take 1 tablet by mouth in the morning. [facility] simvastatin (ZOCOR) 20 mg tablet 03-08 09:15: 25 Yes 20mg Take 1 tablet by mouth at bedtime. [facility] CARVEDILOL ORAL 03-08 09:15: 25 Yes 25mg Take 25 mg by mouth 2 (two) times daily. [facility] albuterol-i pratropium (COMBIVENT INHALER) 18-103 mcg/actuati on inhaler 03-08 09:15: 25 Yes Inhale 4 (four) times daily. [facility] FLUTICASONE PROPIONATE (FLOVENT ROTADISK INHALE) 03-08 09:15: 25 Yes 2{puff} Inhale [address] [facility] propranolol (INDERAL) 40 mg tablet 03-08 09:15: 25 Yes 40mg Take 1 tablet by mouth in the morning. [facility] aspirin 81 mg chewable tablet 03-08 09:15: 25 Yes 81mg Take 1 tablet by mouth in the morning. [facility] simvastatin (ZOCOR) 20 mg tablet 03-08 09:15: 25 Yes 20mg Take 1 tablet by mouth at bedtime. [facility] CARVEDILOL ORAL 03-08 09:15: 25 Yes 25mg Take 25 mg by mouth 2 (two) times daily. [facility] albuterol-i pratropium (COMBIVENT INHALER) 18-103 mcg/actuati on inhaler 03-08 09:15: 25 Yes Inhale 4 (four) times daily. [facility] FLUTICASONE PROPIONATE (FLOVENT ROTADISK INHALE) 03-08 09:15: 25 Yes 2{puff} Inhale [address] [facility] propranolol (INDERAL) 40 mg tablet 03-08 09:15: 25 Yes 40mg Take 1 tablet by mouth in the morning. [facility] aspirin 81 mg chewable tablet 03-08 09:15: 25 Yes 81mg Take 1 tablet by mouth in the morning. [facility] simvastatin (ZOCOR) 20 mg tablet 03-08 09:15: 25 Yes 20mg Take 1 tablet by mouth at bedtime. [facility] CARVEDILOL ORAL 03-08 09:15: 25 Yes 25mg Take 25 mg by mouth 2 (two) times daily. [facility] ceFAZolin (ANCEF) injection 02-22 14:37: 00 02-22 14:44 :40 No PRN, Starting on Ayala 02/22/23 at 0937, Until Ayala 02/22/23 at 0944, BHUPINDER, Intra-op [facility] dexamethaso ne (DECADRON PHOSPHATE) injection 02-22 14:37: 00 02-22 14:44 :40 No PRN, Starting on Ayala 02/22/23 at 0937, Until Ayala 02/22/23 at 0944, Routine, Intra-op [facility] gentamicin injection 02-22 14:37: 00 02-22 14:44 :40 No PRN, Starting on Ayala 02/22/23 at 0937, Until Ayala 02/22/23 at 0944, BHUPINDER, Intra-op [facility] neomycin-po lymyxin-dex amethasone (MAXITROL) 3.5 mg/g-10,000 unit/g-0.1 % ophthalmic ointment 02-22 14:37: 00 02-22 14:44 :40 No PRN, Starting on Ayala 02/22/23 at 0937, Until Ayala 02/22/23 at 0944, Routine, [facility] sodium chloride (NS) injection 02-22 14:37: 00 02-22 14:44 :40 No PRN, Starting on Ayala 02/22/23 at 0937, Until Ayala 02/22/23 at 0944, Routine, Intra-op [facility] chondroitin sulf-sod hyaluronate (DUOVISC VISCO ELASTIC) intraocular injection 02-22 14:32: 00 02-22 14:44 :40 No PRN, Starting on Ayala 02/22/23 at 0932, Until Ayala 02/22/23 at 0944, Routine, Intra-op [facility] EPINEPHrine (PF) 1:1,000 (1 mg/mL) (ADRENALIN (PF)) injection 02-22 14:31: 00 02-22 14:44 :40 No PRN, Starting on Ayala 02/22/23 at 0931, Until Ayala 02/22/23 at 0944, Routine, Intra-op [facility] balanced salt soln no.2 irrig. (BSS) ophthalmic solution 02-22 14:31: 00 02-22 14:44 :40 No PRN, Starting on Ayala 02/22/23 at 0931, Until Ayala 02/22/23 at 0944, Routine, Intra-op [facility] water for irrigation irrigation solution 02-22 14:25: 00 02-22 14:44 :40 No PRN, Starting on Ayala 02/22/23 at 0925, Until Ayala 02/22/23 at 0944, Routine, Intra-op [facility] tetracaine (PONTOCAINE ) 0.5 % ophthalmic drops 02-22 14:22: 00 02-22 14:44 :40 No PRN, Starting on Ayala 02/22/23 at 0922, Until Ayala 02/22/23 at 0944, Routine, Intra-op [facility] eye block syringe 11 mL 02-22 14:22: 00 02-22 14:44 :40 No PRN, Starting on Ayala 02/22/23 at 0922, Until Ayala 02/22/23 at 0944, Intra-op [facility] cyclopent 1%-tropic 1%-phenyl 2.5%-ketor 0.5% (MYDRIATIC #5) ophthalmic solution syringe 0.5 mL 02-22 13:15: 00 02-22 13:12 :00 No .5mL 0.5 mL, Left Eye, ONCE, 1 dose, On Ayala 02/22/23 at 0815, Routine, DSU Pre-op [facility] lactated ringers IV infusion 1,000 mL 02-22 13:15: 02-22 13:27 :00 No 1000mL at 42 mL/hr, 1,000 mL, IV Infusion, ONCE, 1 dose, On Ayala 02/22/23 at 0815, Routine, DSU Pre-op [facility] cyclopent 1%-tropic 1%-phenyl 2.5%-ketor 0.5% (MYDRIATIC #5) ophthalmic solution syringe 0.5 mL 02-22 13:15: 00 02-22 13:12 :00 No .5mL 0.5 mL, Left Eye, ONCE, 1 dose, On Ayala 02/22/23 at 0815, Routine, DSU Pre-op [facility] lactated ringers IV infusion 1,000 mL 02-22 13:15: 02-22 13:27 :00 No 1000mL at 42 mL/hr, 1,000 mL, IV Infusion, ONCE, 1 dose, On Ayala 02/22/23 at 0815, Routine, DSU Pre-op [facility] metformin ER 500 mg 24 hr tablet 02-22 10:32: 49 Yes 500mg Take 1 tablet by mouth in the morning. [facility] montelukast 10 mg tablet 02-22 10:32: 49 Yes 10mg Take 1 tablet by mouth in the morning. [facility] mupirocin 2 % ointment 02-22 10:32: 49 Yes 1{dose} Apply 1 Dose to area(s) as needed. [facility] Nitrofurant oin&Nit. Macrocryst 100 mg capsule 02-22 10:32: 49 Yes 100mg Take 1 capsule by mouth in the morning and 1 capsule in the evening. [facility] albuterol-i pratropium (COMBIVENT INHALER) 18-103 mcg/actuati on inhaler 02-22 10:32: 49 Yes Inhale 4 (four) times daily. [facility] FLUTICASONE PROPIONATE (FLOVENT ROTADISK INHALE) 02-22 10:32: 49 Yes 2{puff} Inhale [address] [facility] propranolol (INDERAL) 40 mg tablet 02-22 10:32: 49 Yes 40mg Take 1 tablet by mouth in the morning. [facility] aspirin 81 mg chewable tablet 02-22 10:32: 49 Yes 81mg Take 1 tablet by mouth in the morning. [facility] simvastatin (ZOCOR) 20 mg tablet 02-22 10:32: 49 Yes 20mg Take 1 tablet by mouth at bedtime. [facility] CARVEDILOL ORAL 02-22 10:32: 49 Yes 25mg Take 25 mg by mouth 2 (two) times daily. [facility] ferrous sulfate 325 mg (65 mg iron) tablet 02-22 10:32: 49 Yes 325mg Take 1 tablet by mouth in the morning. [facility] apixaban 2.5 mg tablet 02-22 10:32: 49 Yes 2.5mg Take 1 tablet by mouth in the morning. [facility] fluticasone furoate-giovanna anteroL 100-25 mcg/dose DsDv 02-22 10:32: [address] [facility] gabapentin 600 mg tablet 02-22 10:32: 49 Yes 600mg Take 1 tablet by mouth in the morning and 1 tablet at noon and 1 tablet in the evening. [facility] furosemide 80 mg tablet 02-22 10:32: 49 Yes 80mg Take 1 tablet by mouth in the morning and 1 tablet in the evening. [facility] rosuvastati n 10 mg tablet 02-22 10:32: 49 Yes 10mg Take 1 tablet by mouth in the morning. [facility] omeprazole 40 mg capsule 02-22 10:32: 49 Yes 40mg Take 1 capsule by mouth in the morning. [facility] metformin ER 500 mg 24 hr tablet 02-22 10:32: 49 Yes 500mg Take 1 tablet by mouth in the morning. [facility] montelukast 10 mg tablet 02-22 10:32: 49 Yes 10mg Take 1 tablet by mouth in the morning. [facility] mupirocin 2 % ointment 02-22 10:32: 49 Yes 1{dose} Apply 1 Dose to area(s) as needed. [facility] Nitrofurant oin&Nit. Macrocryst 100 mg capsule 02-22 10:32: 49 Yes 100mg Take 1 capsule by mouth in the morning and 1 capsule in the evening. [facility] albuterol-i pratropium (COMBIVENT INHALER) 18-103 mcg/actuati on inhaler 02-22 10:32: 49 Yes Inhale 4 (four) times daily. [facility] FLUTICASONE PROPIONATE (FLOVENT ROTADISK INHALE) 02-22 10:32: 49 Yes 2{puff} Inhale [address] [facility] propranolol (INDERAL) 40 mg tablet 02-22 10:32: 49 Yes 40mg Take 1 tablet by mouth in the morning. [facility] aspirin 81 mg chewable tablet 02-22 10:32: 49 Yes 81mg Take 1 tablet by mouth in the morning. [facility] simvastatin (ZOCOR) 20 mg tablet 02-22 10:32: 49 Yes 20mg Take 1 tablet by mouth at bedtime. [facility] CARVEDILOL ORAL 02-22 10:32: 49 Yes 25mg Take 25 mg by mouth 2 (two) times daily. [facility] ferrous sulfate 325 mg (65 mg iron) tablet 02-22 10:32: 49 Yes 325mg Take 1 tablet by mouth in the morning. [facility] apixaban 2.5 mg tablet 02-22 10:32: 49 Yes 2.5mg Take 1 tablet by mouth in the morning. [facility] fluticasone furoate-giovanna anteroL 100-25 mcg/dose DsDv 02-22 10:32: [address] [facility] gabapentin 600 mg tablet 02-22 10:32: 49 Yes 600mg Take 1 tablet by mouth in the morning and 1 tablet at noon and 1 tablet in the evening. [facility] furosemide 80 mg tablet 02-22 10:32: 49 Yes 80mg Take 1 tablet by mouth in the morning and 1 tablet in the evening. [facility] rosuvastati n 10 mg tablet 02-22 10:32: 49 Yes 10mg Take 1 tablet by mouth in the morning. [facility] omeprazole 40 mg capsule 02-22 10:32: 49 Yes 40mg Take 1 capsule by mouth in the morning. [facility] GABAPENTIN, BULK, MISC 02-22 09:45: 41 02-22 00:00 :00 No 600mg Take 600 mg in the morning and 600 mg at noon and 600 mg in [address] [facility] GABAPENTIN, BULK, MISC 02-22 09:45: 41 02-22 00:00 :00 No 600mg Take 600 mg in the morning and 600 mg at noon and 600 mg in [address] [facility] losartan 100 mg tablet 12-09 00:00: 00 Yes 100mg Take 1 tablet by mouth in the morning. [facility] losartan 100 mg tablet 2023-0 1-14 00:00: 00 Yes 100mg Take 1 tablet by mouth in the morning. [facility] losartan 100 mg tablet 0 14 00:00: 00 Yes 100mg Take 1 tablet by mouth in the morning. [facility] losartan 100 mg tablet 14 00:00: 00 Yes 100mg Take 1 tablet by mouth in the morning. [facility] losartan 100 mg tablet 14 00:00: 00 Yes 100mg Take 1 tablet by mouth in the morning. [facility] SYMBICORT 160-4.5 mcg/actuati on inhaler 0 - 00:00: 00 Yes 1{puff} Inhale 1 Puff in the morning. [facility] SYMBICORT 160-4.5 mcg/actuati on inhaler 0 12-06 00:00: 00 Yes 1{puff} Inhale 1 Puff in the morning. [facility] SYMBICORT 160-4.5 mcg/actuati on inhaler 0 12-06 00:00: 00 Yes 1{puff} Inhale 1 Puff in the morning. [facility] SYMBICORT 160-4.5 mcg/actuati on inhaler 0 12-06 00:00: 00 Yes 1{puff} Inhale 1 Puff in the morning. [facility] SYMBICORT 160-4.5 mcg/actuati on inhaler 0 12-06 00:00: 00 Yes 1{puff} Inhale 1 Puff in the morning. [facility] amiodarone 200 mg tablet 2021-11-24 00:00: 00 Yes 200mg Take 1 tablet by mouth in the morning. [facility] amiodarone 200 mg tablet 2021-11 2-24 00:00: 00 Yes 200mg Take 1 tablet by mouth in the morning. [facility] amiodarone 200 mg tablet 2021-11 2-24 00:00: 00 Yes 200mg Take 1 tablet by mouth in the morning. [facility] amiodarone 200 mg tablet 2021-11 2-24 00:00: 00 Yes 200mg Take 1 tablet by mouth in the morning. [facility] amiodarone 200 mg tablet 2021-11 224 00:00: 00 Yes 200mg Take 1 tablet by mouth in the morning. [facility] metFORMIN HCl ER 500 MG metFORMIN HCl ER 500 MG 8-16 00:00: 00 No QD metFORMIN HCl ER 500 MG metFORMIN HCl ER 500 MG metFORMIN HCl ER 500 MG 8-16 00:00: 00 No QD metFORMIN HCl ER 500 MG metFORMIN HCl ER 500 MG metFORMIN HCl ER 500 MG 8-16 00:00: 00 No QD metFORMIN HCl ER 500 MG metFORMIN HCl ER 500 MG metFORMIN HCl ER 500 MG 8-16 00:00: 00 No QD metFORMIN HCl ER 500 MG amLODIPine (NORVASC) 5 mg tablet 04-20 14:30: 51 04-20 00:00 :00 No 5mg Take 5 mg by mouth daily. [facility] amitriptyli ne (ELAVIL) 10 mg tablet 04-20 14:30: 42 04-20 00:00 :00 No 10mg Take 10 mg by mouth at bedtime. [facility] propranolol (INDERAL) 40 mg tablet 04-20 13:28: 01 Yes 40mg Take 40 mg by mouth daily. [facility] propranolol (INDERAL) 40 mg tablet 04-20 13:28: Yes 40mg Take 40 mg by mouth daily. [facility] propranolol (INDERAL) 40 mg tablet 04-20 13:28: 01 Yes 40mg Take 40 mg by mouth daily. [facility] propranolol (INDERAL) 40 mg tablet 04-20 13:28: 01 Yes 40mg Take 40 mg by mouth daily. [facility] propranolol (INDERAL) 40 mg tablet 04-20 13:28: Yes 40mg Take 40 mg by mouth daily. [facility] propranolol (INDERAL) 40 mg tablet 04-20 13:28: 01 Yes 40mg Take 40 mg by mouth daily. [facility] propranolol (INDERAL) 40 mg tablet 04-20 13:28: 01 Yes 40mg Take 40 mg by mouth daily. [facility] Mupirocin 2 % Mupirocin 2 % 04-10 00:00: 00 04-24 00:00 :00 No TID Mupirocin 2 % Mupirocin 2 % Mupirocin 2 % 04-10 00:00: 00 04-24 00:00 :00 No TID Mupirocin 2 % Bactrim DS 800-160 MG Bactrim DS 800-160 MG 2-0 04-10 00:00: 00 04-20 00:00 :00 No 1{table t} BID Bactrim DS 800-160 MG Bactrim DS 800-160 MG Bactrim DS 800-160 MG 2021-0 04-10 00:00: 00 04-20 00:00 :00 No 1{table t} BID Bactrim DS 800-160 MG Lidocaine 5 % Lidocaine 5 % 2021-0 01-26 00:00: 00 No QD Lidocaine 5 % Lidocaine 5 % Lidocaine 5 % 2021-0 3- 00:00: 00 No QD Lidocaine 5 % Lidocaine 5 % Lidocaine 5 % 2021-0 3- 00:00: 00 No QD Lidocaine 5 % Lidocaine 5 % Lidocaine 5 % 2021-0 3- 00:00: 00 No QD Lidocaine 5 % Lidocaine 5 % Lidocaine 5 % 2021-0 3- 00:00: 00 No QD Lidocaine 5 % Lidocaine 5 % Lidocaine 5 % 2-0 3-03 00:00: 00 No QD Lidocaine 5 % Lidocaine 5 % Lidocaine 5 % 2-0 3-03 00:00: 00 No QD Lidocaine 5 % Lidocaine 5 % Lidocaine 5 % 2-0 3-03 00:00: 00 No QD Lidocaine 5 % Lidocaine 5 % Lidocaine 5 % 2-0 3-03 00:00: 00 No QD Lidocaine 5 % Lidocaine 5 % Lidocaine 5 % 2-0 3-03 00:00: 00 No QD Lidocaine 5 % Lidocaine 5 % Lidocaine 5 % 2-0 3-03 00:00: 00 No QD Lidocaine 5 % Lidocaine 5 % Lidocaine 5 % 2022-0 3-03 00:00: 00 No QD Lidocaine 5 % Lidocaine 5 % Lidocaine 5 % 2022-0 3-03 00:00: 00 No QD Lidocaine 5 % Lidocaine 5 % Lidocaine 5 % 2022-0 3-03 00:00: 00 No QD Lidocaine 5 % Lidocaine 5 % Lidocaine 5 % 2022-0 3-03 00:00: 00 No QD Lidocaine 5 % Lidocaine 5 % Lidocaine 5 % 2022-0 3-03 00:00: 00 No QD Lidocaine 5 % Lidocaine 5 % Lidocaine 5 % 2022-0 3-03 00:00: 00 No QD Lidocaine 5 % Lidocaine 5 % Lidocaine 5 % 2022-0 3-03 00:00: 00 No QD Lidocaine 5 % Lidocaine 5 % Lidocaine 5 % 2022-0 3-03 00:00: 00 No QD Lidocaine 5 % Lidocaine 5 % Lidocaine 5 % 2022-0 3-03 00:00: 00 No QD Lidocaine 5 % Lidocaine 5 % Lidocaine 5 % 2022-0 3-03 00:00: 00 No QD Lidocaine 5 % Lidocaine 5 % Lidocaine 5 % 2022-0 3-03 00:00: 00 No QD Lidocaine 5 % Lidocaine 5 % Lidocaine 5 % 2022-0 3-03 00:00: 00 No QD Lidocaine 5 % Lidocaine 5 % Lidocaine 5 % 2022-0 3-03 00:00: 00 No QD Lidocaine 5 % Lidocaine 5 % Lidocaine 5 % 2022-0 3-03 00:00: 00 No QD Lidocaine 5 % Lidocaine 5 % Lidocaine 5 % 2022-0 3-03 00:00: 00 No QD Lidocaine 5 % Lidocaine 5 % Lidocaine 5 % 2022-0 3-03 00:00: 00 No QD Lidocaine 5 % Lidocaine 5 % Lidocaine 5 % 2022-0 3-03 00:00: 00 No QD Lidocaine 5 % Lidocaine 5 % Lidocaine 5 % 2022-0 3-03 00:00: 00 No QD Lidocaine 5 % Lidocaine 5 % Lidocaine 5 % 2022-0 3-03 00:00: 00 No QD Lidocaine 5 % Lidocaine 5 % Lidocaine 5 % 2022-0 3-03 00:00: 00 No QD Lidocaine 5 % Lidocaine 5 % Lidocaine 5 % 2022-0 3-03 00:00: 00 No QD Lidocaine 5 % Lidocaine 5 % Lidocaine 5 % 2022-0 3-03 00:00: 00 No QD Lidocaine 5 % Lidocaine 5 % Lidocaine 5 % 2022-0 3-03 00:00: 00 No QD Lidocaine 5 % Lidocaine 5 % Lidocaine 5 % 2022-0 3-03 00:00: 00 No QD Lidocaine 5 % Lidocaine 5 % Lidocaine 5 % 2022-0 3-03 00:00: 00 No QD Lidocaine 5 % Lidocaine 5 % Lidocaine 5 % 2022-0 3-03 00:00: 00 No QD Lidocaine 5 % Lidocaine 5 % Lidocaine 5 % 2022-0 3-03 00:00: 00 No QD Lidocaine 5 % Lidocaine 5 % Lidocaine 5 % 2022-0 3-03 00:00: 00 No QD Lidocaine 5 % Lidocaine 5 % Lidocaine 5 % 2022-0 3-03 00:00: 00 No QD Lidocaine 5 % Lidocaine 5 % Lidocaine 5 % 2022-0 3-03 00:00: 00 No QD Lidocaine 5 % Lidocaine 5 % Lidocaine 5 % 2022-0 3-03 00:00: 00 No QD Lidocaine 5 % Lidocaine 5 % Lidocaine 5 % 2-0 3-03 00:00: 00 No QD Lidocaine 5 % Lidocaine 5 % Lidocaine 5 % 2-0 3-03 00:00: 00 No QD Lidocaine 5 % Lidocaine 5 % Lidocaine 5 % 2-0 3-03 00:00: 00 No QD Lidocaine 5 % Lidocaine 5 % Lidocaine 5 % 2-0 3-03 00:00: 00 No QD Lidocaine 5 % Chlorhexidi ne Gluconate 0.12 % Chlorhexidi ne Gluconate 0.12 % 2020-11 230 00:00: 00 12-01 00:00 :00 No BID Chlorhexid ine Gluconate 0.12 % Chlorhexidi ne Gluconate 0.12 % Chlorhexidi ne Gluconate 0.12 % 2020-11 2-30 00:00: 00 12-01 00:00 :00 No BID Chlorhexid ine Gluconate 0.12 % Albuterol Sulfate (2.5 MG/3ML) 0.083% Albuterol Sulfate (2.5 MG/3ML) 0.083% 2020-11 2-16 00:00: 00 No 3{ml_as _needed } TID Albuterol Sulfate (2.5 MG/3ML) 0.083% Albuterol Sulfate (2.5 MG/3ML) 0.083% Albuterol Sulfate (2.5 MG/3ML) 0.083% 2020-11 00:00: 00 No 3{ml_as _needed } TID Albuterol Sulfate (2.5 MG/3ML) 0.083% Albuterol Sulfate (2.5 MG/3ML) 0.083% Albuterol Sulfate (2.5 MG/3ML) 0.083% 2020-11 00:00: 00 No 3{ml_as _needed } TID Albuterol Sulfate (2.5 MG/3ML) 0.083% Albuterol Sulfate (2.5 MG/3ML) 0.083% Albuterol Sulfate (2.5 MG/3ML) 0.083% 2020-11 00:00: 00 No 3{ml_as _needed } TID Albuterol Sulfate (2.5 MG/3ML) 0.083% Albuterol Sulfate (2.5 MG/3ML) 0.083% Albuterol Sulfate (2.5 MG/3ML) 0.083% 2020-11 00:00: 00 No 3{ml_as _needed } TID Albuterol Sulfate (2.5 MG/3ML) 0.083% Albuterol Sulfate (2.5 MG/3ML) 0.083% Albuterol Sulfate (2.5 MG/3ML) 0.083% 2020-11 00:00: 00 No 3{ml_as _needed } TID Albuterol Sulfate (2.5 MG/3ML) 0.083% Albuterol Sulfate (2.5 MG/3ML) 0.083% Albuterol Sulfate (2.5 MG/3ML) 0.083% 2020-11 00:00: 00 No 3{ml_as _needed } TID Albuterol Sulfate (2.5 MG/3ML) 0.083% Albuterol Sulfate (2.5 MG/3ML) 0.083% Albuterol Sulfate (2.5 MG/3ML) 0.083% 2020-11 00:00: 00 No 3{ml_as _needed } TID Albuterol Sulfate (2.5 MG/3ML) 0.083% Albuterol Sulfate (2.5 MG/3ML) 0.083% Albuterol Sulfate (2.5 MG/3ML) 0.083% 2020-11 00:00: 00 No 3{ml_as _needed } TID Albuterol Sulfate (2.5 MG/3ML) 0.083% Albuterol Sulfate (2.5 MG/3ML) 0.083% Albuterol Sulfate (2.5 MG/3ML) 0.083% 2020-11 00:00: 00 No 3{ml_as _needed } TID Albuterol Sulfate (2.5 MG/3ML) 0.083% Albuterol Sulfate (2.5 MG/3ML) 0.083% Albuterol Sulfate (2.5 MG/3ML) 0.083% 2020-11 00:00: 00 No 3{ml_as _needed } TID Albuterol Sulfate (2.5 MG/3ML) 0.083% Albuterol Sulfate (2.5 MG/3ML) 0.083% Albuterol Sulfate (2.5 MG/3ML) 0.083% 2020-11 00:00: 00 No 3{ml_as _needed } TID Albuterol Sulfate (2.5 MG/3ML) 0.083% Albuterol Sulfate (2.5 MG/3ML) 0.083% Albuterol Sulfate (2.5 MG/3ML) 0.083% 2020-11 00:00: 00 No 3{ml_as _needed } TID Albuterol Sulfate (2.5 MG/3ML) 0.083% Albuterol Sulfate (2.5 MG/3ML) 0.083% Albuterol Sulfate (2.5 MG/3ML) 0.083% 2020-11 00:00: 00 No 3{ml_as _needed } TID Albuterol Sulfate (2.5 MG/3ML) 0.083% Albuterol Sulfate (2.5 MG/3ML) 0.083% Albuterol Sulfate (2.5 MG/3ML) 0.083% 2020-11 00:00: 00 No 3{ml_as _needed } TID Albuterol Sulfate (2.5 MG/3ML) 0.083% Albuterol Sulfate (2.5 MG/3ML) 0.083% Albuterol Sulfate (2.5 MG/3ML) 0.083% 2020-11 00:00: 00 No 3{ml_as _needed } TID Albuterol Sulfate (2.5 MG/3ML) 0.083% Albuterol Sulfate (2.5 MG/3ML) 0.083% Albuterol Sulfate (2.5 MG/3ML) 0.083% 2020-11 00:00: 00 No 3{ml_as _needed } TID Albuterol Sulfate (2.5 MG/3ML) 0.083% Albuterol Sulfate (2.5 MG/3ML) 0.083% Albuterol Sulfate (2.5 MG/3ML) 0.083% 2020-11 00:00: 00 No 3{ml_as _needed } TID Albuterol Sulfate (2.5 MG/3ML) 0.083% Albuterol Sulfate (2.5 MG/3ML) 0.083% Albuterol Sulfate (2.5 MG/3ML) 0.083% 2020-11 00:00: 00 No 3{ml_as _needed } TID Albuterol Sulfate (2.5 MG/3ML) 0.083% Albuterol Sulfate (2.5 MG/3ML) 0.083% Albuterol Sulfate (2.5 MG/3ML) 0.083% 2020-11 00:00: 00 No 3{ml_as _needed } TID Albuterol Sulfate (2.5 MG/3ML) 0.083% Albuterol Sulfate (2.5 MG/3ML) 0.083% Albuterol Sulfate (2.5 MG/3ML) 0.083% 2020-11 00:00: 00 No 3{ml_as _needed } TID Albuterol Sulfate (2.5 MG/3ML) 0.083% Albuterol Sulfate (2.5 MG/3ML) 0.083% Albuterol Sulfate (2.5 MG/3ML) 0.083% 2020-11 00:00: 00 No 3{ml_as _needed } TID Albuterol Sulfate (2.5 MG/3ML) 0.083% Albuterol Sulfate (2.5 MG/3ML) 0.083% Albuterol Sulfate (2.5 MG/3ML) 0.083% 2020-11 00:00: 00 No 3{ml_as _needed } TID Albuterol Sulfate (2.5 MG/3ML) 0.083% Albuterol Sulfate (2.5 MG/3ML) 0.083% Albuterol Sulfate (2.5 MG/3ML) 0.083% 2020-11 00:00: 00 No 3{ml_as _needed } TID Albuterol Sulfate (2.5 MG/3ML) 0.083% Albuterol Sulfate (2.5 MG/3ML) 0.083% Albuterol Sulfate (2.5 MG/3ML) 0.083% 2020-11 00:00: 00 No 3{ml_as _needed } TID Albuterol Sulfate (2.5 MG/3ML) 0.083% Albuterol Sulfate (2.5 MG/3ML) 0.083% Albuterol Sulfate (2.5 MG/3ML) 0.083% 2020-11 00:00: 00 No 3{ml_as _needed } TID Albuterol Sulfate (2.5 MG/3ML) 0.083% Albuterol Sulfate (2.5 MG/3ML) 0.083% Albuterol Sulfate (2.5 MG/3ML) 0.083% 2020-11 00:00: 00 No 3{ml_as _needed } TID Albuterol Sulfate (2.5 MG/3ML) 0.083% Albuterol Sulfate (2.5 MG/3ML) 0.083% Albuterol Sulfate (2.5 MG/3ML) 0.083% 2020-11 00:00: 00 No 3{ml_as _needed } TID Albuterol Sulfate (2.5 MG/3ML) 0.083% Albuterol Sulfate (2.5 MG/3ML) 0.083% Albuterol Sulfate (2.5 MG/3ML) 0.083% 2020-11 00:00: 00 No 3{ml_as _needed } TID Albuterol Sulfate (2.5 MG/3ML) 0.083% Albuterol Sulfate (2.5 MG/3ML) 0.083% Albuterol Sulfate (2.5 MG/3ML) 0.083% 2020-11 00:00: 00 No 3{ml_as _needed } TID Albuterol Sulfate (2.5 MG/3ML) 0.083% Albuterol Sulfate (2.5 MG/3ML) 0.083% Albuterol Sulfate (2.5 MG/3ML) 0.083% 2020-11 00:00: 00 No 3{ml_as _needed } TID Albuterol Sulfate (2.5 MG/3ML) 0.083% Albuterol Sulfate (2.5 MG/3ML) 0.083% Albuterol Sulfate (2.5 MG/3ML) 0.083% 2020-11 00:00: 00 No 3{ml_as _needed } TID Albuterol Sulfate (2.5 MG/3ML) 0.083% Albuterol Sulfate (2.5 MG/3ML) 0.083% Albuterol Sulfate (2.5 MG/3ML) 0.083% 2020-11 00:00: 00 No 3{ml_as _needed } TID Albuterol Sulfate (2.5 MG/3ML) 0.083% Albuterol Sulfate (2.5 MG/3ML) 0.083% Albuterol Sulfate (2.5 MG/3ML) 0.083% 2020-11 00:00: 00 No 3{ml_as _needed } TID Albuterol Sulfate (2.5 MG/3ML) 0.083% Albuterol Sulfate (2.5 MG/3ML) 0.083% Albuterol Sulfate (2.5 MG/3ML) 0.083% 2020-11 00:00: 00 No 3{ml_as _needed } TID Albuterol Sulfate (2.5 MG/3ML) 0.083% Albuterol Sulfate (2.5 MG/3ML) 0.083% Albuterol Sulfate (2.5 MG/3ML) 0.083% 2020-11 00:00: 00 No 3{ml_as _needed } TID Albuterol Sulfate (2.5 MG/3ML) 0.083% Albuterol Sulfate (2.5 MG/3ML) 0.083% Albuterol Sulfate (2.5 MG/3ML) 0.083% 2020-11 00:00: 00 No 3{ml_as _needed } TID Albuterol Sulfate (2.5 MG/3ML) 0.083% Albuterol Sulfate (2.5 MG/3ML) 0.083% Albuterol Sulfate (2.5 MG/3ML) 0.083% 2020-11 00:00: 00 No 3{ml_as _needed } TID Albuterol Sulfate (2.5 MG/3ML) 0.083% Albuterol Sulfate (2.5 MG/3ML) 0.083% Albuterol Sulfate (2.5 MG/3ML) 0.083% 2020-11 00:00: 00 No 3{ml_as _needed } TID Albuterol Sulfate (2.5 MG/3ML) 0.083% Albuterol Sulfate (2.5 MG/3ML) 0.083% Albuterol Sulfate (2.5 MG/3ML) 0.083% 2020-11 00:00: 00 No 3{ml_as _needed } TID Albuterol Sulfate (2.5 MG/3ML) 0.083% Albuterol Sulfate (2.5 MG/3ML) 0.083% Albuterol Sulfate (2.5 MG/3ML) 0.083% 2020-11 00:00: 00 No 3{ml_as _needed } TID Albuterol Sulfate (2.5 MG/3ML) 0.083% Albuterol Sulfate (2.5 MG/3ML) 0.083% Albuterol Sulfate (2.5 MG/3ML) 0.083% 2020-11 00:00: 00 No 3{ml_as _needed } TID Albuterol Sulfate (2.5 MG/3ML) 0.083% Albuterol Sulfate (2.5 MG/3ML) 0.083% Albuterol Sulfate (2.5 MG/3ML) 0.083% 2020-11 00:00: 00 No 3{ml_as _needed } TID Albuterol Sulfate (2.5 MG/3ML) 0.083% Albuterol Sulfate (2.5 MG/3ML) 0.083% Albuterol Sulfate (2.5 MG/3ML) 0.083% 2020-11 00:00: 00 No 3{ml_as _needed } TID Albuterol Sulfate (2.5 MG/3ML) 0.083% Albuterol Sulfate (2.5 MG/3ML) 0.083% Albuterol Sulfate (2.5 MG/3ML) 0.083% 2020-11 00:00: 00 No 3{ml_as _needed } TID Albuterol Sulfate (2.5 MG/3ML) 0.083% Albuterol Sulfate (2.5 MG/3ML) 0.083% Albuterol Sulfate (2.5 MG/3ML) 0.083% 2020-11 00:00: 00 No 3{ml_as _needed } TID Albuterol Sulfate (2.5 MG/3ML) 0.083% Albuterol Sulfate (2.5 MG/3ML) 0.083% Albuterol Sulfate (2.5 MG/3ML) 0.083% 2020-11 00:00: 00 No 3{ml_as _needed } TID Albuterol Sulfate (2.5 MG/3ML) 0.083% Albuterol Sulfate (2.5 MG/3ML) 0.083% Albuterol Sulfate (2.5 MG/3ML) 0.083% 2020-11 00:00: 00 No 3{ml_as _needed } TID Albuterol Sulfate (2.5 MG/3ML) 0.083% Albuterol Sulfate (2.5 MG/3ML) 0.083% Albuterol Sulfate (2.5 MG/3ML) 0.083% 2020-11 00:00: 00 No 3{ml_as _needed } TID Albuterol Sulfate (2.5 MG/3ML) 0.083% Albuterol Sulfate (2.5 MG/3ML) 0.083% Albuterol Sulfate (2.5 MG/3ML) 0.083% 2020-11 00:00: 00 No 3{ml_as _needed } TID Albuterol Sulfate (2.5 MG/3ML) 0.083% Albuterol Sulfate (2.5 MG/3ML) 0.083% Albuterol Sulfate (2.5 MG/3ML) 0.083% 2020-11 00:00: 00 No 3{ml_as _needed } TID Albuterol Sulfate (2.5 MG/3ML) 0.083% Albuterol Sulfate (2.5 MG/3ML) 0.083% Albuterol Sulfate (2.5 MG/3ML) 0.083% 2020-11 00:00: 00 No 3{ml_as _needed } TID Albuterol Sulfate (2.5 MG/3ML) 0.083% Albuterol Sulfate (2.5 MG/3ML) 0.083% Albuterol Sulfate (2.5 MG/3ML) 0.083% 2020-11 00:00: 00 No 3{ml_as _needed } TID Albuterol Sulfate (2.5 MG/3ML) 0.083% Ipratropium Marion 0.02 % Ipratropium Marion 0.02 % 2020-11 00:00: 00 05-09 00:00 :00 No 2.5{ml} TID Ipratropiu m Marion 0.02 % Ipratropium Marion 0.02 % Ipratropium [place] 0.02 % 2020-11 00:00: 00 05-09 00:00 :00 No 2.5{ml} TID Ipratropiu m Marion 0.02 % Ipratropium Marion 0.02 % Ipratropium [place] 0.02 % 2020-11 00:00: 00 05-09 00:00 :00 No 2.5{ml} TID Ipratropiu m Marion 0.02 % Ipratropium Marion 0.02 % Ipratropium Marion 0.02 % 2020-11 00:00: 00 05-09 00:00 :00 No 2.5{ml} TID Ipratropiu m Marion 0.02 % Ipratropium Marion 0.02 % Ipratropium Marion 0.02 % 2020-11 00:00: 00 05-09 00:00 :00 No 2.5{ml} TID Ipratropiu m Marion 0.02 % Ipratropium Marion 0.02 % Ipratropium Marion 0.02 % 2020-11 00:00: 00 05-09 00:00 :00 No 2.5{ml} TID Ipratropiu m Marion 0.02 % Ipratropium Marion 0.02 % Ipratropium [place] 0.02 % 2020-11 00:00: 00 05-09 00:00 :00 No 2.5{ml} TID Ipratropiu m [place] 0.02 % Ipratropium Marion 0.02 % Ipratropium [place] 0.02 % 2020-11 00:00: 00 05-09 00:00 :00 No 2.5{ml} TID Ipratropiu m [place] 0.02 % Ipratropium Marion 0.02 % Ipratropium [place] 0.02 % 2020-11 00:00: 00 05-09 00:00 :00 No 2.5{ml} TID Ipratropiu m [place] 0.02 % Ipratropium Marion 0.02 % Ipratropium [place] 0.02 % 2020-11 00:00: 00 05-09 00:00 :00 No 2.5{ml} TID Ipratropiu m [place] 0.02 % Ipratropium Marion 0.02 % Ipratropium [place] 0.02 % 2020-11 00:00: 00 05-09 00:00 :00 No 2.5{ml} TID Ipratropiu m [place] 0.02 % Ipratropium Marion 0.02 % Ipratropium [place] 0.02 % 2020-11 00:00: 00 05-09 00:00 :00 No 2.5{ml} TID Ipratropiu m [place] 0.02 % Potassium Chloride ER 20 MEQ Potassium Chloride ER 20 MEQ 2020-11 00:00: 00 11-30 00:00 :00 No 1{table t_with_ food} Potassium Chloride ER 20 MEQ Potassium Chloride ER 20 MEQ Potassium Chloride ER 20 MEQ 2020-11 00:00: 00 11-30 00:00 :00 No 1{table t_with_ food} Potassium Chloride ER 20 MEQ Potassium Chloride ER 20 MEQ Potassium Chloride ER 20 MEQ 2020-11 00:00: 00 11-30 00:00 :00 No 1{table t_with_ food} Potassium Chloride ER 20 MEQ Potassium Chloride ER 20 MEQ Potassium Chloride ER 20 MEQ 2020-11 00:00: 00 11-30 00:00 :00 No 1{table t_with_ food} Potassium Chloride ER 20 MEQ albuterol-i pratropium (COMBIVENT INHALER) 18-103 mcg/actuati on inhaler 03-11 14:52: 21 Yes Inhale 4 (four) times daily. [facility] FLUTICASONE PROPIONATE (FLOVENT ROTADISK INHALE) 03-11 14:52: 21 Yes 2{puff} Inhale [address] [facility] Gabapentin, Bulk, 100 % Powd 03-11 14:52: 21 Yes 600mg 600 mg 3 (three) times daily. [facility] aspirin 81 mg chewable tablet 03-11 14:52: 21 Yes 81mg Take 81 mg by mouth daily. [facility] simvastatin (ZOCOR) 20 mg tablet 03-11 14:52: 21 Yes 20mg Take 20 mg by mouth at bedtime. [facility] CARVEDILOL ORAL 03-11 14:52: 21 Yes 25mg Take 25 mg by mouth 2 (two) times daily. [facility] ferrous sulfate 325 mg (65 mg iron) tablet 03-11 14:52: 21 Yes 325mg Take 325 mg by mouth daily. [facility] APIXABAN (ELIQUIS ORAL) 03-11 14:52: 21 Yes Take by mouth. [facility] fluticasone -vilanterol (BREO ELLIPTA) 100-25 mcg/dose DsDv 03-11 14:52: [address] [facility] albuterol-i pratropium (COMBIVENT INHALER) 18-103 mcg/actuati on inhaler 03-11 14:52: 21 Yes Inhale 4 (four) times daily. [facility] FLUTICASONE PROPIONATE (FLOVENT ROTADISK INHALE) 03-11 14:52: 21 Yes 2{puff} Inhale [address] [facility] Gabapentin, Bulk, 100 % Powd 03-11 14:52: 21 Yes 600mg 600 mg 3 (three) times daily. [facility] aspirin 81 mg chewable tablet 03-11 14:52: 21 Yes 81mg Take 81 mg by mouth daily. [facility] simvastatin (ZOCOR) 20 mg tablet 03-11 14:52: 21 Yes 20mg Take 20 mg by mouth at bedtime. [facility] CARVEDILOL ORAL 03-11 14:52: 21 Yes 25mg Take 25 mg by mouth 2 (two) times daily. [facility] ferrous sulfate 325 mg (65 mg iron) tablet 03-11 14:52: 21 Yes 325mg Take 325 mg by mouth daily. [facility] APIXABAN (ELIQUIS ORAL) 03-11 14:52: 21 Yes Take by mouth. [facility] fluticasone -vilanterol (BREO ELLIPTA) 100-25 mcg/dose DsDv 03-11 14:52: [address] [facility] albuterol-i pratropium (COMBIVENT INHALER) 18-103 mcg/actuati on inhaler 03-11 14:52: 21 Yes Inhale 4 (four) times daily. [facility] FLUTICASONE PROPIONATE (FLOVENT ROTADISK INHALE) 03-11 14:52: 21 Yes 2{puff} Inhale [address] [facility] Gabapentin, Bulk, 100 % Powd 03-11 14:52: 21 Yes 600mg 600 mg 3 (three) times daily. [facility] aspirin 81 mg chewable tablet 03-11 14:52: 21 Yes 81mg Take 81 mg by mouth daily. [facility] simvastatin (ZOCOR) 20 mg tablet 03-11 14:52: 21 Yes 20mg Take 20 mg by mouth at bedtime. [facility] CARVEDILOL ORAL 03-11 14:52: 21 Yes 25mg Take 25 mg by mouth 2 (two) times daily. [facility] ferrous sulfate 325 mg (65 mg iron) tablet 03-11 14:52: 21 Yes 325mg Take 325 mg by mouth daily. [facility] APIXABAN (ELIQUIS ORAL) 03-11 14:52: 21 Yes Take by mouth. [facility] fluticasone -vilanterol (BREO ELLIPTA) 100-25 mcg/dose DsDv 03-11 14:52: [address] [facility] albuterol-i pratropium (COMBIVENT INHALER) 18-103 mcg/actuati on inhaler 03-11 14:52: 21 Yes Inhale 4 (four) times daily. [facility] FLUTICASONE PROPIONATE (FLOVENT ROTADISK INHALE) 03-11 14:52: 21 Yes 2{puff} Inhale [address] [facility] Gabapentin, Bulk, 100 % Powd 03-11 14:52: 21 Yes 600mg 600 mg 3 (three) times daily. [facility] aspirin 81 mg chewable tablet 03-11 14:52: 21 Yes 81mg Take 81 mg by mouth daily. [facility] simvastatin (ZOCOR) 20 mg tablet 03-11 14:52: 21 Yes 20mg Take 20 mg by mouth at bedtime. [facility] CARVEDILOL ORAL 03-11 14:52: 21 Yes 25mg Take 25 mg by mouth 2 (two) times daily. [facility] ferrous sulfate 325 mg (65 mg iron) tablet 03-11 14:52: 21 Yes 325mg Take 325 mg by mouth daily. [facility] APIXABAN (ELIQUIS ORAL) 03-11 14:52: 21 Yes Take by mouth. [facility] fluticasone -vilanterol (BREO ELLIPTA) 100-25 mcg/dose DsDv 03-11 14:52: [address] [facility] albuterol-i pratropium (COMBIVENT INHALER) 18-103 mcg/actuati on inhaler 03-11 14:52: 21 Yes Inhale 4 (four) times daily. [facility] FLUTICASONE PROPIONATE (FLOVENT ROTADISK INHALE) 03-11 14:52: 21 Yes 2{puff} Inhale [address] [facility] Gabapentin, Bulk, 100 % Powd 03-11 14:52: 21 Yes 600mg 600 mg 3 (three) times daily. [facility] aspirin 81 mg chewable tablet 03-11 14:52: 21 Yes 81mg Take 81 mg by mouth daily. [facility] simvastatin (ZOCOR) 20 mg tablet 03-11 14:52: 21 Yes 20mg Take 20 mg by mouth at bedtime. [facility] CARVEDILOL ORAL 03-11 14:52: 21 Yes 25mg Take 25 mg by mouth 2 (two) times daily. [facility] ferrous sulfate 325 mg (65 mg iron) tablet 03-11 14:52: 21 Yes 325mg Take 325 mg by mouth daily. [facility] APIXABAN (ELIQUIS ORAL) 03-11 14:52: 21 Yes Take by mouth. [facility] fluticasone -vilanterol (BREO ELLIPTA) 100-25 mcg/dose DsDv 03-11 14:52: [address] [facility] albuterol-i pratropium (COMBIVENT INHALER) 18-103 mcg/actuati on inhaler 03-11 14:52: 21 Yes Inhale 4 (four) times daily. [facility] FLUTICASONE PROPIONATE (FLOVENT ROTADISK INHALE) 03-11 14:52: 21 Yes 2{puff} Inhale [address] [facility] Gabapentin, Bulk, 100 % Powd 03-11 14:52: 21 Yes 600mg 600 mg 3 (three) times daily. [facility] aspirin 81 mg chewable tablet 03-11 14:52: 21 Yes 81mg Take 81 mg by mouth daily. [facility] simvastatin (ZOCOR) 20 mg tablet 03-11 14:52: 21 Yes 20mg Take 20 mg by mouth at bedtime. [facility] CARVEDILOL ORAL 03-11 14:52: 21 Yes 25mg Take 25 mg by mouth 2 (two) times daily. [facility] ferrous sulfate 325 mg (65 mg iron) tablet 03-11 14:52: 21 Yes 325mg Take 325 mg by mouth daily. [facility] APIXABAN (ELIQUIS ORAL) 03-11 14:52: 21 Yes Take by mouth. [facility] fluticasone -vilanterol (BREO ELLIPTA) 100-25 mcg/dose DsDv 03-11 14:52: [address] [facility] albuterol-i pratropium (COMBIVENT INHALER) 18-103 mcg/actuati on inhaler 03-11 14:52: 21 Yes Inhale 4 (four) times daily. [facility] FLUTICASONE PROPIONATE (FLOVENT ROTADISK INHALE) 03-11 14:52: 21 Yes 2{puff} Inhale [address] [facility] Gabapentin, Bulk, 100 % Powd 03-11 14:52: 21 Yes 600mg 600 mg 3 (three) times daily. [facility] aspirin 81 mg chewable tablet 03-11 14:52: 21 Yes 81mg Take 81 mg by mouth daily. [facility] simvastatin (ZOCOR) 20 mg tablet 03-11 14:52: 21 Yes 20mg Take 20 mg by mouth at bedtime. [facility] CARVEDILOL ORAL 03-11 14:52: 21 Yes 25mg Take 25 mg by mouth 2 (two) times daily. [facility] ferrous sulfate 325 mg (65 mg iron) tablet 03-11 14:52: 21 Yes 325mg Take 325 mg by mouth daily. [facility] APIXABAN (ELIQUIS ORAL) 03-11 14:52: 21 Yes Take by mouth. [facility] fluticasone -vilanterol (BREO ELLIPTA) 100-25 mcg/dose DsDv 2021-0 4-16 14:52: 21 Yes Inhale. [facility] amoxicillin 500 mg capsule 1-0 14 00:00: 00 Yes [facility] amoxicillin 500 mg capsule 1-0 14 00:00: 00 Yes [facility] amoxicillin 500 mg capsule 1-0 14 00:00: 00 Yes [facility] amoxicillin 500 mg capsule 1-0 14 00:00: 00 Yes [facility] amoxicillin 500 mg capsule 1-0 14 00:00: 00 Yes [facility] amoxicillin 500 mg capsule 1-0 14 00:00: 00 Yes [facility] amoxicillin 500 mg capsule 1-0 14 00:00: 00 Yes [facility] amoxicillin 500 mg capsule 1-0 14 00:00: 00 Yes [facility] amoxicillin 500 mg capsule 1-0 14 00:00: 00 Yes [facility] amoxicillin 500 mg capsule 1-0 14 00:00: 00 Yes [facility] amoxicillin 500 mg capsule 1-0 14 00:00: 00 Yes [facility] amoxicillin 500 mg capsule 2020-0 14 00:00: 00 Yes [facility] HYDROcodone -acetaminop hen 10-325 mg tablet 0 03-02 00:00: 00 Yes 1{tbl} Take 1 tablet by mouth in the morning and 1 tablet at noon and 1 tablet in the evening. [facility] HYDROcodone -acetaminop hen 10-325 mg tablet 2020-0 03-02 00:00: 00 Yes 1{tbl} Take 1 tablet by mouth in the morning and 1 tablet at noon and 1 tablet in the evening. [facility] HYDROcodone -acetaminop hen 10-325 mg tablet 2020-0 03-02 00:00: 00 Yes 1{tbl} Take 1 tablet by mouth in the morning and 1 tablet at noon and 1 tablet in the evening. [facility] HYDROcodone -acetaminop hen 10-325 mg tablet 2020-0 03-02 00:00: 00 Yes 1{tbl} Take 1 tablet by mouth in the morning and 1 tablet at noon and 1 tablet in the evening. [facility] HYDROcodone -acetaminop hen 10-325 mg tablet 2020-0 03-02 00:00: 00 Yes 1{tbl} Take 1 tablet by mouth 3 (three) times daily. [facility] HYDROcodone -acetaminop hen 10-325 mg tablet 2020-0 03-02 00:00: 00 Yes 1{tbl} Take 1 tablet by mouth 3 (three) times daily. [facility] HYDROcodone -acetaminop hen 10-325 mg tablet 0 03-02 00:00: 00 Yes 1{tbl} Take 1 tablet by mouth 3 (three) times daily. [facility] HYDROcodone -acetaminop hen 10-325 mg tablet 2020-03-02 00:00: 00 Yes 1{tbl} Take 1 tablet by mouth 3 (three) times daily. [facility] HYDROcodone -acetaminop hen 10-325 mg tablet 2020-0 03-02 00:00: 00 Yes 1{tbl} Take 1 tablet by mouth 3 (three) times daily. [facility] HYDROcodone -acetaminop hen 10-325 mg tablet 2020-03-02 00:00: 00 Yes 1{tbl} Take 1 tablet by mouth 3 (three) times daily. [facility] HYDROcodone -acetaminop hen 10-325 mg tablet 2020-0 03-02 00:00: 00 Yes 1{tbl} Take 1 tablet by mouth 3 (three) times daily. [facility] HYDROcodone -acetaminop hen 10-325 mg tablet 0 03-02 00:00: 00 Yes 1{tbl} Take 1 tablet by mouth in the morning and 1 tablet at noon and 1 tablet in the evening. [facility] spironolact one 50 mg tablet 02-28 00:00: 00 Yes 50mg Take 1 tablet by mouth in the morning. [facility] spironolact one 50 mg tablet 02-28 00:00: 00 Yes 50mg Take 1 tablet by mouth in the morning. [facility] spironolact one 50 mg tablet 02-28 00:00: 00 Yes 50mg Take 1 tablet by mouth in the morning. [facility] spironolact one 50 mg tablet 02-28 00:00: 00 Yes 50mg Take 1 tablet by mouth in the morning. [facility] spironolact one 25 mg tablet 02-28 00:00: 00 Yes 25mg Take 25 mg by mouth 2 (two) times daily. [facility] spironolact one 25 mg tablet 02-28 00:00: 00 Yes 25mg Take 25 mg by mouth 2 (two) times daily. [facility] spironolact one 25 mg tablet 02-28 00:00: 00 Yes 25mg Take 25 mg by mouth 2 (two) times daily. [facility] spironolact one 25 mg tablet 02-28 00:00: 00 Yes 25mg Take 25 mg by mouth 2 (two) times daily. [facility] spironolact one 25 mg tablet 02-28 00:00: 00 Yes 25mg Take 25 mg by mouth 2 (two) times daily. [facility] spironolact one 25 mg tablet 02-28 00:00: 00 Yes 25mg Take 25 mg by mouth 2 (two) times daily. [facility] spironolact one 25 mg tablet 02-28 00:00: 00 Yes 25mg Take 25 mg by mouth 2 (two) times daily. [facility] spironolact one 50 mg tablet 02-28 00:00: 00 Yes 50mg Take 1 tablet by mouth in the morning. [facility] Tizanidine HCl Tizanidine HCl 8-11 00:00: 00 08-05 00:00 :00 No Na Shabazz 1 capsule as needed [facility] diazePAM 5 mg tablet 7-03 00:00: 00 04-20 00:00 :00 No [id number] 5mg Take 1 tablet by mouth 2 (two) times daily. May take both befor the MRI [facility] Chlorhexidi ne Gluconate 0.12 % Chlorhexidi ne Gluconate 0.12 % 2020-0 2-10 00:00: 00 No BID Chlorhexid ine Gluconate 0.12 % Chlorhexidi ne Gluconate 0.12 % Chlorhexidi ne Gluconate 0.12 % 2020-0 2-10 00:00: 00 No BID Chlorhexid ine Gluconate 0.12 % Chlorhexidi ne Gluconate 0.12 % Chlorhexidi ne Gluconate 0.12 % 2020-0 2-10 00:00: 00 No BID Chlorhexid ine Gluconate 0.12 % Chlorhexidi ne Gluconate 0.12 % Chlorhexidi ne Gluconate 0.12 % 2020-0 2-10 00:00: 00 No BID Chlorhexid ine Gluconate 0.12 % Chlorhexidi ne Gluconate 0.12 % Chlorhexidi ne Gluconate 0.12 % 2020-0 2-10 00:00: 00 No BID Chlorhexid ine Gluconate 0.12 % Chlorhexidi ne Gluconate 0.12 % Chlorhexidi ne Gluconate 0.12 % 2020-0 2-10 00:00: 00 No BID Chlorhexid ine Gluconate 0.12 % cyclobenzap rine 10 mg tablet 8-15 00:00: 00 04-20 00:00 :00 No [id number] 10mg Take 1 tablet by mouth 3 (three) times daily. [facility] methylPREDN ISolone (MEDROL, TIMOTHY,) 4 mg tablets 7-10 00:00: 00 04-20 00:00 :00 No [id number] Take by mouth SEE-INSTRU CTIONS. follow package directions [facility] Estradiol 0.1 MG/GM Estradiol 0.1 MG/GM 12-17 00:00: 00 No Estradiol 0.1 MG/GM Estradiol 0.1 MG/GM Estradiol 0.1 MG/GM 12-17 00:00: 00 No Estradiol 0.1 MG/GM Estradiol 0.1 MG/GM Estradiol 0.1 MG/GM 12-17 00:00: 00 No Estradiol 0.1 MG/GM Estradiol 0.1 MG/GM Estradiol 0.1 MG/GM 12-17 00:00: 00 No Estradiol 0.1 MG/GM Estradiol 0.1 MG/GM Estradiol 0.1 MG/GM 12-17 00:00: 00 No Estradiol 0.1 MG/GM Estradiol 0.1 MG/GM Estradiol 0.1 MG/GM 12-17 00:00: 00 No Estradiol 0.1 MG/GM levoFLOXaci n 500 mg tablet 2016-11 00:00: 00 04-20 00:00 :00 No [facility] penicillin v potassium 500 mg tablet 2016-11 00:00: 00 04-20 00:00 :00 No [facility] lidocaine 5 % ointment 2016-11 00:00: 00 Yes [facility] lidocaine 5 % ointment 2016-11 00:00: 00 Yes [facility] lidocaine 5 % ointment 2016-11 00:00: 00 Yes [facility] lidocaine 5 % ointment 2016-11 00:00: 00 Yes [facility] lidocaine 5 % ointment 2016-11 00:00: 00 Yes [facility] lidocaine 5 % ointment 2016-11 00:00: 00 Yes [facility] lidocaine 5 % ointment 2016-11 00:00: 00 Yes [facility] lidocaine 5 % ointment 2016-11 00:00: 00 Yes [facility] lidocaine 5 % ointment 2016-11 00:00: 00 Yes [facility] lidocaine 5 % ointment 2016-11 00:00: 00 Yes [facility] lidocaine 5 % ointment 2016-11 00:00: 00 Yes [facility] lidocaine 5 % ointment 2016-11 0 00:00: 00 Yes [facility] phenazopyri dine (PYRIDIUM) 100 mg tablet 07-05 00:00: 00 Yes 200mg Take 2 tablets by mouth 3 (three) times daily as needed (bladder pain). [facility] phenazopyri dine (PYRIDIUM) 100 mg tablet 07-05 00:00: 00 Yes 200mg Take 2 tablets by mouth 3 (three) times daily as needed (bladder pain). [facility] phenazopyri dine (PYRIDIUM) 100 mg tablet 07-05 00:00: 00 Yes 200mg Take 2 tablets by mouth 3 (three) times daily as needed (bladder pain). [facility] phenazopyri dine (PYRIDIUM) 100 mg tablet 07-05 00:00: 00 Yes 200mg Take 2 tablets by mouth 3 (three) times daily as needed (bladder pain). [facility] phenazopyri dine (PYRIDIUM) 100 mg tablet 07-05 00:00: 00 Yes 200mg Take 2 tablets by mouth 3 (three) times daily as needed (bladder pain). [facility] phenazopyri dine (PYRIDIUM) 100 mg tablet 07-05 00:00: 00 Yes 200mg Take 2 tablets by mouth 3 (three) times daily as needed (bladder pain). [facility] phenazopyri dine (PYRIDIUM) 100 mg tablet 07-05 00:00: 00 Yes 200mg Take 2 tablets by mouth 3 (three) times daily as needed (bladder pain). [facility] phenazopyri dine (PYRIDIUM) 100 mg tablet 07-05 00:00: 00 Yes 200mg Take 2 tablets by mouth 3 (three) times daily as needed (bladder pain). [facility] phenazopyri dine (PYRIDIUM) 100 mg tablet 07-05 00:00: 00 Yes 200mg Take 2 tablets by mouth 3 (three) times daily as needed (bladder pain). [facility] phenazopyri dine (PYRIDIUM) 100 mg tablet 07-05 00:00: 00 Yes 200mg Take 2 tablets by mouth 3 (three) times daily as needed (bladder pain). [facility] phenazopyri dine (PYRIDIUM) 100 mg tablet 07-05 00:00: 00 Yes 200mg Take 2 tablets by mouth 3 (three) times daily as needed (bladder pain). [facility] phenazopyri dine (PYRIDIUM) 100 mg tablet 07-05 00:00: 00 Yes 200mg Take 2 tablets by mouth 3 (three) times daily as needed (bladder pain). [facility] ibuprofen (MOTRIN) 800 mg tablet 2015-11 00:00: 00 Yes [facility] ibuprofen (MOTRIN) 800 mg tablet 2015-11 00:00: 00 Yes [facility] ibuprofen (MOTRIN) 800 mg tablet 2015-11 00:00: 00 Yes [facility] ibuprofen (MOTRIN) 800 mg tablet 2015-11 00:00: 00 Yes [facility] ibuprofen (MOTRIN) 800 mg tablet 2015-11 00:00: 00 Yes [facility] ibuprofen (MOTRIN) 800 mg tablet 2015-11 00:00: 00 Yes [facility] ibuprofen (MOTRIN) 800 mg tablet 2015-11 00:00: 00 Yes [facility] ibuprofen (MOTRIN) 800 mg tablet 2015-11 00:00: 00 Yes [facility] ibuprofen (MOTRIN) 800 mg tablet 2015-11 00:00: 00 Yes [facility] ibuprofen (MOTRIN) 800 mg tablet 2015-11 00:00: 00 Yes [facility] ibuprofen (MOTRIN) 800 mg tablet 2015-11 00:00: 00 Yes [facility] ibuprofen (MOTRIN) 800 mg tablet 2015-11 00:00: 00 Yes [facility] clindamycin (CLEOCIN) 150 mg capsule 2015-11 00:00: 00 04-20 00:00 :00 No TAKE 2 CAPSULES BY MOUTH EVERY 8 HOURS ( 3 TIMES A DAY) TAKE WITH FOOD AND DRINK PLENTY OF WATER [facility] tiZANidine (ZANAFLEX) 4 mg tablet 04-04 00:00: 00 Yes 4mg Take 1 tablet by mouth in the morning and 1 tablet in the evening. [facility] tiZANidine (ZANAFLEX) 4 mg tablet 04-04 00:00: 00 Yes 4mg Take 1 tablet by mouth in the morning and 1 tablet in the evening. [facility] tiZANidine (ZANAFLEX) 4 mg tablet 04-04 00:00: 00 Yes 4mg Take 1 tablet by mouth in the morning and 1 tablet in the evening[facility] [facility] tiZANidine (ZANAFLEX) 4 mg tablet 04-04 00:00: 00 Yes 4mg Take 1 tablet by mouth in the morning and 1 tablet in the evening. [facility] tiZANidine (ZANAFLEX) 4 mg tablet 04-04 00:00: 00 Yes 4mg Take 4 mg by mouth 2 (two) times daily. [facility] tiZANidine (ZANAFLEX) 4 mg tablet 04-04 00:00: 00 Yes 4mg Take 4 mg by mouth 2 (two) times daily. [facility] tiZANidine (ZANAFLEX) 4 mg tablet 04-04 00:00: 00 Yes 4mg Take 4 mg by mouth 2 (two) times daily. [facility] tiZANidine (ZANAFLEX) 4 mg tablet 04-04 00:00: 00 Yes 4mg Take 4 mg by mouth 2 (two) times daily. [facility] tiZANidine (ZANAFLEX) 4 mg tablet 04-04 00:00: 00 Yes 4mg Take 4 mg by mouth 2 (two) times daily. [facility] tiZANidine (ZANAFLEX) 4 mg tablet 04-04 00:00: 00 Yes 4mg Take 4 mg by mouth 2 (two) times daily. [facility] tiZANidine (ZANAFLEX) 4 mg tablet 04-04 00:00: 00 Yes 4mg Take 4 mg by mouth 2 (two) times daily. [facility] tiZANidine (ZANAFLEX) 4 mg tablet 04-04 00:00: 00 Yes 4mg Take 1 tablet by mouth in the morning and 1 tablet in the evening. [facility] VOLTAREN 1 % gel 03-08 00:00: 00 Yes 1{dose} Apply 1 Dose to area(s) every evening. [facility] potassium chloride 20 mEq tablet 03-08 00:00: 00 Yes 20meq Take 1 tablet by mouth in the morning. [facility] VOLTAREN 1 % gel 03-08 00:00: 00 Yes 1{dose} Apply 1 Dose to area(s) every evening. [facility] potassium chloride 20 mEq tablet 03-08 00:00: 00 Yes 20meq Take 1 tablet by mouth in the morning. [facility] VOLTAREN 1 % gel 03-08 00:00: 00 Yes 1{dose} Apply 1 Dose to area(s) every evening. [facility] potassium chloride 20 mEq tablet 03-08 00:00: 00 Yes 20meq Take 1 tablet by mouth in the morning. [facility] VOLTAREN 1 % gel 03-08 00:00: 00 Yes 1{dose} Apply 1 Dose to area(s) every evening. [facility] potassium chloride 20 mEq tablet 03-08 00:00: 00 Yes 20meq Take 1 tablet by mouth in the morning. [facility] VOLTAREN 1 % gel 03-08 00:00: 00 Yes 1{dose} Apply 1 Dose to area(s) every evening. [facility] potassium chloride (K-DUR) 10 mEq CR tablet 03-08 00:00: 00 Yes 10meq Take 10 mEq by mouth daily. [facility] VOLTAREN 1 % gel 03-08 00:00: 00 Yes 1{dose} Apply 1 Dose to area(s) every evening. [facility] potassium chloride (K-DUR) 10 mEq CR tablet 03-08 00:00: 00 Yes 10meq Take 10 mEq by mouth daily. [facility] VOLTAREN 1 % gel 03-08 00:00: 00 Yes 1{dose} Apply 1 Dose to area(s) every evening. [facility] potassium chloride (K-DUR) 10 mEq CR tablet 03-08 00:00: 00 Yes 10meq Take 10 mEq by mouth daily. [facility] VOLTAREN 1 % gel 03-08 00:00: 00 Yes 1{dose} Apply 1 Dose to area(s) every evening. [facility] potassium chloride (K-DUR) 10 mEq CR tablet 03-08 00:00: 00 Yes 10meq Take 10 mEq by mouth daily. [facility] VOLTAREN 1 % gel 03-08 00:00: 00 Yes 1{dose} Apply 1 Dose to area(s) every evening. [facility] potassium chloride (K-DUR) 10 mEq CR tablet 03-08 00:00: 00 Yes 10meq Take 10 mEq by mouth daily. [facility] VOLTAREN 1 % gel 03-08 00:00: 00 Yes 1{dose} Apply 1 Dose to area(s) every evening. [facility] potassium chloride (K-DUR) 10 mEq CR tablet 03-08 00:00: 00 Yes 10meq Take 10 mEq by mouth daily. [facility] VOLTAREN 1 % gel 03-08 00:00: 00 Yes 1{dose} Apply 1 Dose to area(s) every evening. [facility] potassium chloride (K-DUR) 10 mEq CR tablet 03-08 00:00: 00 Yes 10meq Take 10 mEq by mouth daily. [facility] VOLTAREN 1 % gel 03-08 00:00: 00 Yes 1{dose} Apply 1 Dose to area(s) every evening. [facility] potassium chloride 20 mEq tablet 03-08 00:00: 00 Yes 20meq Take 1 tablet by mouth in the morning. [facility] losartan (COZAAR) 100 mg tablet 03-08 00:00: 00 04-20 00:00 :00 No 100mg Take 100 mg by mouth daily. [facility] hydrochloro thiazide (ESIDRIX) 25 mg tablet 05-30 00:00: 00 Yes 25mg Take 1 Tab by mouth 2 (two) times daily. [facility] hydrochloro thiazide (ESIDRIX) 25 mg tablet 05-30 00:00: 00 Yes 25mg Take 1 Tab by mouth 2 (two) times daily. [facility] hydrochloro thiazide (ESIDRIX) 25 mg tablet 05-30 00:00: 00 Yes 25mg Take 1 Tab by mouth 2 (two) times daily. [facility] hydrochloro thiazide (ESIDRIX) 25 mg tablet 05-30 00:00: 00 Yes 25mg Take 1 Tab by mouth 2 (two) times daily. [facility] hydrochloro thiazide (ESIDRIX) 25 mg tablet 05-30 00:00: 00 Yes 25mg Take 1 Tab by mouth 2 (two) times daily. [facility] hydrochloro thiazide (ESIDRIX) 25 mg tablet 05-30 00:00: 00 Yes 25mg Take 1 Tab by mouth 2 (two) times daily. [facility] hydrochloro thiazide (ESIDRIX) 25 mg tablet 05-30 00:00: 00 Yes 25mg Take 1 Tab by mouth 2 (two) times daily. [facility] hydrochloro thiazide (ESIDRIX) 25 mg tablet 05-30 00:00: 00 Yes 25mg Take 1 Tab by mouth 2 (two) times daily. [facility] hydrochloro thiazide (ESIDRIX) 25 mg tablet 05-30 00:00: 00 Yes 25mg Take 1 Tab by mouth 2 (two) times daily. [facility] hydrochloro thiazide (ESIDRIX) 25 mg tablet 05-30 00:00: 00 Yes 25mg Take 1 Tab by mouth 2 (two) times daily. [facility] hydrochloro thiazide (ESIDRIX) 25 mg tablet 05-30 00:00: 00 Yes 25mg Take 1 Tab by mouth 2 (two) times daily. [facility] hydrochloro thiazide (ESIDRIX) 25 mg tablet 05-30 00:00: 00 Yes 25mg Take 1 Tab by mouth 2 (two) times daily. [facility] docusate calcium (SURFAK) 240 mg capsule 05-30 00:00: 00 04-20 00:00 :00 No 240mg Take 1 Cap by mouth 2 (two) times daily. [facility] Potassium Chloride ER Potassium Chloride ER Yes Na Shabazz 1 capsule with food [facility] cloNIDine HCl 0.2 MG cloNIDine HCl 0.2 MG No 1{table t} cloNIDine HCl 0.2 MG Omeprazole 40 MG Omeprazole 40 MG No 1{capsu le} QD Omeprazole 40 MG Albuterol Sulfate (5 MG/ML) 0.5% Albuterol Sulfate (5 MG/ML) 0.5% No 1{ml_as _needed } QID Albuterol Sulfate (5 MG/ML) 0.5% Losartan Potassium Losartan Potassium No Losartan Potassium Furosemide 80 MG Furosemide 80 MG No 1{table t} BID Furosemide 80 MG Flovent Diskus 100 MCG/BLIST Flovent Diskus 100 MCG/BLIST No 1{puff} BID Flovent Diskus 100 MCG/BLIST ProAir HFA 108 (90 Base) MCG/ACT ProAir HFA 108 (90 Base) MCG/ACT No 2{puffs _as_nee ded} QID ProAir HFA 108 (90 Base) MCG/ACT Aspir-81 81 MG Aspir-81 81 MG No 1{table t} QD Aspir-81 81 MG Combivent Respimat 20-100 MCG/ACT Combivent Respimat 20-100 MCG/ACT No 1{puff} QID Combivent Respimat 20-100 MCG/ACT HYDROcodone -Acetaminop hen 10-325 MG HYDROcodone -Acetaminop hen 10-325 MG No 1{table t_as_ne eded} QID HYDROcodon e-Acetamin ophen 10-325 MG Eliquis 5 MG Eliquis 5 MG No Eliquis 5 MG Spironolact one 50 MG Spironolact one 50 MG No 1{table t} QD Spironolac tone 50 MG Coreg 6.25 MG Coreg 6.25 MG No BID Coreg 6.25 MG metFORMIN HCl ER 500 MG metFORMIN HCl ER 500 MG No metFORMIN HCl ER 500 MG Cholestyram ine 4 GM Cholestyram ine 4 GM No Cholestyra mine 4 GM Montelukast Sodium 10 MG Montelukast Sodium 10 MG No Montelukas t Sodium 10 MG Neurontin 600 MG Neurontin 600 MG No 1{table t} QD Neurontin 600 MG tiZANidine HCl 2 MG tiZANidine HCl 2 MG No 1{table t_at_be dtime_a s_neede d} QD tiZANidine HCl 2 MG Potassium Chloride Alexus ER 20 MEQ Potassium Chloride Alexus ER 20 MEQ No Potassium Chloride Alexus ER 20 MEQ Amiodarone HCl 200 MG Amiodarone HCl 200 MG No 1{table t} QD Amiodarone HCl 200 MG Ferrous Sulfate 325 (65 Fe) MG Ferrous Sulfate 325 (65 Fe) MG No 1{table t} QD Ferrous Sulfate 325 (65 Fe) MG Rosuvastati n Calcium 10 MG Rosuvastati n Calcium 10 MG No 1{table t} Rosuvastat in Calcium 10 MG cloNIDine HCl 0.2 MG cloNIDine HCl 0.2 MG No 1{table t} cloNIDine HCl 0.2 MG Omeprazole 40 MG Omeprazole 40 MG No 1{capsu le} QD Omeprazole 40 MG Albuterol Sulfate (5 MG/ML) 0.5% Albuterol Sulfate (5 MG/ML) 0.5% No 1{ml_as _needed } QID Albuterol Sulfate (5 MG/ML) 0.5% Losartan Potassium Losartan Potassium No Losartan Potassium Furosemide 80 MG Furosemide 80 MG No 1{table t} BID Furosemide 80 MG Flovent Diskus 100 MCG/BLIST Flovent Diskus 100 MCG/BLIST No 1{puff} BID Flovent Diskus 100 MCG/BLIST ProAir HFA 108 (90 Base) MCG/ACT ProAir HFA 108 (90 Base) MCG/ACT No 2{puffs _as_nee ded} QID ProAir HFA 108 (90 Base) MCG/ACT Aspir-81 81 MG Aspir-81 81 MG No 1{table t} QD Aspir-81 81 MG Combivent Respimat 20-100 MCG/ACT Combivent Respimat 20-100 MCG/ACT No 1{puff} QID Combivent Respimat 20-100 MCG/ACT HYDROcodone -Acetaminop hen 10-325 MG HYDROcodone -Acetaminop hen 10-325 MG No 1{table t_as_ne eded} QID HYDROcodon e-Acetamin ophen 10-325 MG Eliquis 5 MG Eliquis 5 MG No Eliquis 5 MG Spironolact one 50 MG Spironolact one 50 MG No 1{table t} QD Spironolac tone 50 MG Coreg 6.25 MG Coreg 6.25 MG No BID Coreg 6.25 MG metFORMIN HCl ER 500 MG metFORMIN HCl ER 500 MG No metFORMIN HCl ER 500 MG Cholestyram ine 4 GM Cholestyram ine 4 GM No Cholestyra mine 4 GM Montelukast Sodium 10 MG Montelukast Sodium 10 MG No Montelukas t Sodium 10 MG Neurontin 600 MG Neurontin 600 MG No 1{table t} QD Neurontin 600 MG tiZANidine HCl 2 MG tiZANidine HCl 2 MG No 1{table t_at_be dtime_a s_neede d} QD tiZANidine HCl 2 MG Potassium Chloride Alexus ER 20 MEQ Potassium Chloride Alexus ER 20 MEQ No Potassium Chloride Alexus ER 20 MEQ Amiodarone HCl 200 MG Amiodarone HCl 200 MG No 1{table t} QD Amiodarone HCl 200 MG Ferrous Sulfate 325 (65 Fe) MG Ferrous Sulfate 325 (65 Fe) MG No 1{table t} QD Ferrous Sulfate 325 (65 Fe) MG Rosuvastati n Calcium 10 MG Rosuvastati n Calcium 10 MG No 1{table t} Rosuvastat in Calcium 10 MG Eliquis 5 MG Eliquis 5 MG No Eliquis 5 MG Rosuvastati n Calcium 10 MG Rosuvastati n Calcium 10 MG No 1{table t} Rosuvastat in Calcium 10 MG Potassium Chloride Alexus ER 20 MEQ Potassium Chloride Alexus ER 20 MEQ No Potassium Chloride Alexus ER 20 MEQ Neurontin 600 MG Neurontin 600 MG No 1{table t} QD Neurontin 600 MG Omeprazole 40 MG Omeprazole 40 MG No 1{capsu le} QD Omeprazole 40 MG tiZANidine HCl 2 MG tiZANidine HCl 2 MG No 1{table t_at_be dtime_a s_neede d} QD tiZANidine HCl 2 MG Combivent Respimat 20-100 MCG/ACT Combivent Respimat 20-100 MCG/ACT No 1{puff} QID Combivent Respimat 20-100 MCG/ACT Amiodarone HCl 200 MG Amiodarone HCl 200 MG No 1{table t} QD Amiodarone HCl 200 MG ProAir HFA 108 (90 Base) MCG/ACT ProAir HFA 108 (90 Base) MCG/ACT No 2{puffs _as_nee ded} QID ProAir HFA 108 (90 Base) MCG/ACT Flovent Diskus 100 MCG/BLIST Flovent Diskus 100 MCG/BLIST No 1{puff} BID Flovent Diskus 100 MCG/BLIST cloNIDine HCl 0.2 MG cloNIDine HCl 0.2 MG No 1{table t} cloNIDine HCl 0.2 MG Coreg 6.25 MG Coreg 6.25 MG No BID Coreg 6.25 MG Spironolact one 50 MG Spironolact one 50 MG No 1{table t} QD Spironolac tone 50 MG HYDROcodone -Acetaminop hen 10-325 MG HYDROcodone -Acetaminop hen 10-325 MG No 1{table t_as_ne eded} QID HYDROcodon e-Acetamin ophen 10-325 MG Losartan Potassium Losartan Potassium No Losartan Potassium Albuterol Sulfate (5 MG/ML) 0.5% Albuterol Sulfate (5 MG/ML) 0.5% No 1{ml_as _needed } QID Albuterol Sulfate (5 MG/ML) 0.5% Furosemide 80 MG Furosemide 80 MG No 1{table t} BID Furosemide 80 MG metFORMIN HCl ER 500 MG metFORMIN HCl ER 500 MG No metFORMIN HCl ER 500 MG Cholestyram ine 4 GM Cholestyram ine 4 GM No Cholestyra mine 4 GM Aspir-81 81 MG Aspir-81 81 MG No 1{table t} QD Aspir-81 81 MG Ferrous Sulfate 325 (65 Fe) MG Ferrous Sulfate 325 (65 Fe) MG No 1{table t} QD Ferrous Sulfate 325 (65 Fe) MG Montelukast Sodium 10 MG Montelukast Sodium 10 MG No Montelukas t Sodium 10 MG Eliquis 5 MG Eliquis 5 MG No Eliquis 5 MG Rosuvastati n Calcium 10 MG Rosuvastati n Calcium 10 MG No 1{table t} Rosuvastat in Calcium 10 MG Potassium Chloride Alexus ER 20 MEQ Potassium Chloride Alexus ER 20 MEQ No Potassium Chloride Alexus ER 20 MEQ Neurontin 600 MG Neurontin 600 MG No 1{table t} QD Neurontin 600 MG Omeprazole 40 MG Omeprazole 40 MG No 1{capsu le} QD Omeprazole 40 MG tiZANidine HCl 2 MG tiZANidine HCl 2 MG No 1{table t_at_be dtime_a s_neede d} QD tiZANidine HCl 2 MG Combivent Respimat 20-100 MCG/ACT Combivent Respimat 20-100 MCG/ACT No 1{puff} QID Combivent Respimat 20-100 MCG/ACT Amiodarone HCl 200 MG Amiodarone HCl 200 MG No 1{table t} QD Amiodarone HCl 200 MG ProAir HFA 108 (90 Base) MCG/ACT ProAir HFA 108 (90 Base) MCG/ACT No 2{puffs _as_nee ded} QID ProAir HFA 108 (90 Base) MCG/ACT Flovent Diskus 100 MCG/BLIST Flovent Diskus 100 MCG/BLIST No 1{puff} BID Flovent Diskus 100 MCG/BLIST cloNIDine HCl 0.2 MG cloNIDine HCl 0.2 MG No 1{table t} cloNIDine HCl 0.2 MG Coreg 6.25 MG Coreg 6.25 MG No BID Coreg 6.25 MG Spironolact one 50 MG Spironolact one 50 MG No 1{table t} QD Spironolac tone 50 MG HYDROcodone -Acetaminop hen 10-325 MG HYDROcodone -Acetaminop hen 10-325 MG No 1{table t_as_ne eded} QID HYDROcodon e-Acetamin ophen 10-325 MG Losartan Potassium Losartan Potassium No Losartan Potassium Albuterol Sulfate (5 MG/ML) 0.5% Albuterol Sulfate (5 MG/ML) 0.5% No 1{ml_as _needed } QID Albuterol Sulfate (5 MG/ML) 0.5% Furosemide 80 MG Furosemide 80 MG No 1{table t} BID Furosemide 80 MG metFORMIN HCl ER 500 MG metFORMIN HCl ER 500 MG No metFORMIN HCl ER 500 MG Cholestyram ine 4 GM Cholestyram ine 4 GM No Cholestyra mine 4 GM Aspir-81 81 MG Aspir-81 81 MG No 1{table t} QD Aspir-81 81 MG Ferrous Sulfate 325 (65 Fe) MG Ferrous Sulfate 325 (65 Fe) MG No 1{table t} QD Ferrous Sulfate 325 (65 Fe) MG Montelukast Sodium 10 MG Montelukast Sodium 10 MG No Montelukas t Sodium 10 MG HYDROcodone -Acetaminop hen 10-325 MG HYDROcodone -Acetaminop hen 10-325 MG No 1{table t_as_ne eded} QID HYDROcodon e-Acetamin ophen 10-325 MG Albuterol Sulfate (5 MG/ML) 0.5% Albuterol Sulfate (5 MG/ML) 0.5% No 1{ml_as _needed } QID Albuterol Sulfate (5 MG/ML) 0.5% tiZANidine HCl 2 MG tiZANidine HCl 2 MG No 1{table t_at_be dtime_a s_neede d} QD tiZANidine HCl 2 MG ProAir HFA 108 (90 Base) MCG/ACT ProAir HFA 108 (90 Base) MCG/ACT No 2{puffs _as_nee ded} QID ProAir HFA 108 (90 Base) MCG/ACT Furosemide 80 MG Furosemide 80 MG No 1{table t} BID Furosemide 80 MG Spironolact one 50 MG Spironolact one 50 MG No 1{table t} QD Spironolac tone 50 MG Neurontin 600 MG Neurontin 600 MG No 1{table t} QD Neurontin 600 MG Losartan Potassium Losartan Potassium No Losartan Potassium Coreg 6.25 MG Coreg 6.25 MG No BID Coreg 6.25 MG Rosuvastati n Calcium 10 MG Rosuvastati n Calcium 10 MG No 1{table t} Rosuvastat in Calcium 10 MG Potassium Chloride Alexus ER 20 MEQ Potassium Chloride Alexus ER 20 MEQ No Potassium Chloride Alexus ER 20 MEQ Eliquis 5 MG Eliquis 5 MG No Eliquis 5 MG metFORMIN HCl ER 500 MG metFORMIN HCl ER 500 MG No metFORMIN HCl ER 500 MG cloNIDine HCl 0.2 MG cloNIDine HCl 0.2 MG No 1{table t} cloNIDine HCl 0.2 MG Montelukast Sodium 10 MG Montelukast Sodium 10 MG No Montelukas t Sodium 10 MG Combivent Respimat 20-100 MCG/ACT Combivent Respimat 20-100 MCG/ACT No 1{puff} QID Combivent Respimat 20-100 MCG/ACT Omeprazole 40 MG Omeprazole 40 MG No 1{capsu le} QD Omeprazole 40 MG Cholestyram ine 4 GM Cholestyram ine 4 GM No Cholestyra mine 4 GM Ferrous Sulfate 325 (65 Fe) MG Ferrous Sulfate 325 (65 Fe) MG No 1{table t} QD Ferrous Sulfate 325 (65 Fe) MG Flovent Diskus 100 MCG/BLIST Flovent Diskus 100 MCG/BLIST No 1{puff} BID Flovent Diskus 100 MCG/BLIST Amiodarone HCl 200 MG Amiodarone HCl 200 MG No 1{table t} QD Amiodarone HCl 200 MG metFORMIN HCl ER 500 MG metFORMIN HCl ER 500 MG No QD metFORMIN HCl ER 500 MG Aspir-81 81 MG Aspir-81 81 MG No 1{table t} QD Aspir-81 81 MG HYDROcodone -Acetaminop hen 10-325 MG HYDROcodone -Acetaminop hen 10-325 MG No 1{table t_as_ne eded} QID HYDROcodon e-Acetamin ophen 10-325 MG Albuterol Sulfate (5 MG/ML) 0.5% Albuterol Sulfate (5 MG/ML) 0.5% No 1{ml_as _needed } QID Albuterol Sulfate (5 MG/ML) 0.5% tiZANidine HCl 2 MG tiZANidine HCl 2 MG No 1{table t_at_be dtime_a s_neede d} QD tiZANidine HCl 2 MG ProAir HFA 108 (90 Base) MCG/ACT ProAir HFA 108 (90 Base) MCG/ACT No 2{puffs _as_nee ded} QID ProAir HFA 108 (90 Base) MCG/ACT Furosemide 80 MG Furosemide 80 MG No 1{table t} BID Furosemide 80 MG Spironolact one 50 MG Spironolact one 50 MG No 1{table t} QD Spironolac tone 50 MG Neurontin 600 MG Neurontin 600 MG No 1{table t} QD Neurontin 600 MG Losartan Potassium Losartan Potassium No Losartan Potassium Coreg 6.25 MG Coreg 6.25 MG No BID Coreg 6.25 MG Rosuvastati n Calcium 10 MG Rosuvastati n Calcium 10 MG No 1{table t} Rosuvastat in Calcium 10 MG Potassium Chloride Alexus ER 20 MEQ Potassium Chloride Alexus ER 20 MEQ No Potassium Chloride Alexus ER 20 MEQ Eliquis 5 MG Eliquis 5 MG No Eliquis 5 MG metFORMIN HCl ER 500 MG metFORMIN HCl ER 500 MG No metFORMIN HCl ER 500 MG cloNIDine HCl 0.2 MG cloNIDine HCl 0.2 MG No 1{table t} cloNIDine HCl 0.2 MG Montelukast Sodium 10 MG Montelukast Sodium 10 MG No Montelukas t Sodium 10 MG Combivent Respimat 20-100 MCG/ACT Combivent Respimat 20-100 MCG/ACT No 1{puff} QID Combivent Respimat 20-100 MCG/ACT Omeprazole 40 MG Omeprazole 40 MG No 1{capsu le} QD Omeprazole 40 MG Cholestyram ine 4 GM Cholestyram ine 4 GM No Cholestyra mine 4 GM Ferrous Sulfate 325 (65 Fe) MG Ferrous Sulfate 325 (65 Fe) MG No 1{table t} QD Ferrous Sulfate 325 (65 Fe) MG Flovent Diskus 100 MCG/BLIST Flovent Diskus 100 MCG/BLIST No 1{puff} BID Flovent Diskus 100 MCG/BLIST Amiodarone HCl 200 MG Amiodarone HCl 200 MG No 1{table t} QD Amiodarone HCl 200 MG metFORMIN HCl ER 500 MG metFORMIN HCl ER 500 MG No QD metFORMIN HCl ER 500 MG Aspir-81 81 MG Aspir-81 81 MG No 1{table t} QD Aspir-81 81 MG HYDROcodone -Acetaminop hen 10-325 MG HYDROcodone -Acetaminop hen 10-325 MG No 1{table t_as_ne eded} QID HYDROcodon e-Acetamin ophen 10-325 MG Albuterol Sulfate (5 MG/ML) 0.5% Albuterol Sulfate (5 MG/ML) 0.5% No 1{ml_as _needed } QID Albuterol Sulfate (5 MG/ML) 0.5% tiZANidine HCl 2 MG tiZANidine HCl 2 MG No 1{table t_at_be dtime_a s_neede d} QD tiZANidine HCl 2 MG ProAir HFA 108 (90 Base) MCG/ACT ProAir HFA 108 (90 Base) MCG/ACT No 2{puffs _as_nee ded} QID ProAir HFA 108 (90 Base) MCG/ACT Furosemide 80 MG Furosemide 80 MG No 1{table t} BID Furosemide 80 MG Spironolact one 50 MG Spironolact one 50 MG No 1{table t} QD Spironolac tone 50 MG Neurontin 600 MG Neurontin 600 MG No 1{table t} QD Neurontin 600 MG Losartan Potassium Losartan Potassium No Losartan Potassium Coreg 6.25 MG Coreg 6.25 MG No BID Coreg 6.25 MG Rosuvastati n Calcium 10 MG Rosuvastati n Calcium 10 MG No 1{table t} Rosuvastat in Calcium 10 MG Potassium Chloride Alexus ER 20 MEQ Potassium Chloride Alexus ER 20 MEQ No Potassium Chloride Alexus ER 20 MEQ Eliquis 5 MG Eliquis 5 MG No Eliquis 5 MG metFORMIN HCl ER 500 MG metFORMIN HCl ER 500 MG No metFORMIN HCl ER 500 MG cloNIDine HCl 0.2 MG cloNIDine HCl 0.2 MG No 1{table t} cloNIDine HCl 0.2 MG Montelukast Sodium 10 MG Montelukast Sodium 10 MG No Montelukas t Sodium 10 MG Combivent Respimat 20-100 MCG/ACT Combivent Respimat 20-100 MCG/ACT No 1{puff} QID Combivent Respimat 20-100 MCG/ACT Omeprazole 40 MG Omeprazole 40 MG No 1{capsu le} QD Omeprazole 40 MG Cholestyram ine 4 GM Cholestyram ine 4 GM No Cholestyra mine 4 GM Ferrous Sulfate 325 (65 Fe) MG Ferrous Sulfate 325 (65 Fe) MG No 1{table t} QD Ferrous Sulfate 325 (65 Fe) MG Flovent Diskus 100 MCG/BLIST Flovent Diskus 100 MCG/BLIST No 1{puff} BID Flovent Diskus 100 MCG/BLIST Amiodarone HCl 200 MG Amiodarone HCl 200 MG No 1{table t} QD Amiodarone HCl 200 MG metFORMIN HCl ER 500 MG metFORMIN HCl ER 500 MG No QD metFORMIN HCl ER 500 MG Aspir-81 81 MG Aspir-81 81 MG No 1{table t} QD Aspir-81 81 MG Spironolact one 50 MG Spironolact one 50 MG No 1{table t} QD Spironolac tone 50 MG Albuterol Sulfate (5 MG/ML) 0.5% Albuterol Sulfate (5 MG/ML) 0.5% No 1{ml_as _needed } QID Albuterol Sulfate (5 MG/ML) 0.5% HYDROcodone -Acetaminop hen 10-325 MG HYDROcodone -Acetaminop hen 10-325 MG No 1{table t_as_ne eded} QID HYDROcodon e-Acetamin ophen 10-325 MG ProAir HFA 108 (90 Base) MCG/ACT ProAir HFA 108 (90 Base) MCG/ACT No 2{puffs _as_nee ded} QID ProAir HFA 108 (90 Base) MCG/ACT Potassium Chloride Alexus ER 20 MEQ Potassium Chloride Alexus ER 20 MEQ No 1{table t_with_ food} QD Potassium Chloride Alexus ER 20 MEQ Furosemide 80 MG Furosemide 80 MG No 1{table t} BID Furosemide 80 MG Neurontin 600 MG Neurontin 600 MG No 1{table t} QD Neurontin 600 MG Losartan Potassium Losartan Potassium No Losartan Potassium cloNIDine HCl 0.2 MG cloNIDine HCl 0.2 MG No 1{table t} cloNIDine HCl 0.2 MG Coreg 6.25 MG Coreg 6.25 MG No BID Coreg 6.25 MG Omeprazole 40 MG Omeprazole 40 MG No 1{capsu le} QD Omeprazole 40 MG Eliquis 5 MG Eliquis 5 MG No Eliquis 5 MG Cholestyram ine 4 GM Cholestyram ine 4 GM No Cholestyra mine 4 GM Montelukast Sodium 10 MG Montelukast Sodium 10 MG No Montelukas t Sodium 10 MG Combivent Respimat 20-100 MCG/ACT Combivent Respimat 20-100 MCG/ACT No 1{puff} QID Combivent Respimat 20-100 MCG/ACT metFORMIN HCl ER 500 MG metFORMIN HCl ER 500 MG No metFORMIN HCl ER 500 MG tiZANidine HCl 2 MG tiZANidine HCl 2 MG No 1{table t_at_be dtime_a s_neede d} QD tiZANidine HCl 2 MG Rosuvastati n Calcium 10 MG Rosuvastati n Calcium 10 MG No 1{table t} Rosuvastat in Calcium 10 MG Ferrous Sulfate 325 (65 Fe) MG Ferrous Sulfate 325 (65 Fe) MG No 1{table t} QD Ferrous Sulfate 325 (65 Fe) MG Flovent Diskus 100 MCG/BLIST Flovent Diskus 100 MCG/BLIST No 1{puff} BID Flovent Diskus 100 MCG/BLIST Amiodarone HCl 200 MG Amiodarone HCl 200 MG No 1{table t} QD Amiodarone HCl 200 MG metFORMIN HCl ER 500 MG metFORMIN HCl ER 500 MG No QD metFORMIN HCl ER 500 MG Aspir-81 81 MG Aspir-81 81 MG No 1{table t} QD Aspir-81 81 MG Spironolact one 50 MG Spironolact one 50 MG No 1{table t} QD Spironolac tone 50 MG Albuterol Sulfate (5 MG/ML) 0.5% Albuterol Sulfate (5 MG/ML) 0.5% No 1{ml_as _needed } QID Albuterol Sulfate (5 MG/ML) 0.5% HYDROcodone -Acetaminop hen 10-325 MG HYDROcodone -Acetaminop hen 10-325 MG No 1{table t_as_ne eded} QID HYDROcodon e-Acetamin ophen 10-325 MG ProAir HFA 108 (90 Base) MCG/ACT ProAir HFA 108 (90 Base) MCG/ACT No 2{puffs _as_nee ded} QID ProAir HFA 108 (90 Base) MCG/ACT Potassium Chloride Alexus ER 20 MEQ Potassium Chloride Alexus ER 20 MEQ No 1{table t_with_ food} QD Potassium Chloride Alexus ER 20 MEQ Furosemide 80 MG Furosemide 80 MG No 1{table t} BID Furosemide 80 MG Neurontin 600 MG Neurontin 600 MG No 1{table t} QD Neurontin 600 MG Losartan Potassium Losartan Potassium No Losartan Potassium cloNIDine HCl 0.2 MG cloNIDine HCl 0.2 MG No 1{table t} cloNIDine HCl 0.2 MG Coreg 6.25 MG Coreg 6.25 MG No BID Coreg 6.25 MG Omeprazole 40 MG Omeprazole 40 MG No 1{capsu le} QD Omeprazole 40 MG Eliquis 5 MG Eliquis 5 MG No Eliquis 5 MG Cholestyram ine 4 GM Cholestyram ine 4 GM No Cholestyra mine 4 GM Montelukast Sodium 10 MG Montelukast Sodium 10 MG No Montelukas t Sodium 10 MG Combivent Respimat 20-100 MCG/ACT Combivent Respimat 20-100 MCG/ACT No 1{puff} QID Combivent Respimat 20-100 MCG/ACT metFORMIN HCl ER 500 MG metFORMIN HCl ER 500 MG No metFORMIN HCl ER 500 MG tiZANidine HCl 2 MG tiZANidine HCl 2 MG No 1{table t_at_be dtime_a s_neede d} QD tiZANidine HCl 2 MG Rosuvastati n Calcium 10 MG Rosuvastati n Calcium 10 MG No 1{table t} Rosuvastat in Calcium 10 MG Ferrous Sulfate 325 (65 Fe) MG Ferrous Sulfate 325 (65 Fe) MG No 1{table t} QD Ferrous Sulfate 325 (65 Fe) MG Flovent Diskus 100 MCG/BLIST Flovent Diskus 100 MCG/BLIST No 1{puff} BID Flovent Diskus 100 MCG/BLIST Amiodarone HCl 200 MG Amiodarone HCl 200 MG No 1{table t} QD Amiodarone HCl 200 MG metFORMIN HCl ER 500 MG metFORMIN HCl ER 500 MG No QD metFORMIN HCl ER 500 MG Aspir-81 81 MG Aspir-81 81 MG No 1{table t} QD Aspir-81 81 MG Coreg 6.25 MG Coreg 6.25 MG No BID Coreg 6.25 MG tiZANidine HCl 2 MG tiZANidine HCl 2 MG No 1{table t_at_be dtime_a s_neede d} QD tiZANidine HCl 2 MG Flovent Diskus 100 MCG/BLIST Flovent Diskus 100 MCG/BLIST No 1{puff} BID Flovent Diskus 100 MCG/BLIST Combivent Respimat 20-100 MCG/ACT Combivent Respimat 20-100 MCG/ACT No 1{puff} QID Combivent Respimat 20-100 MCG/ACT HYDROcodone -Acetaminop hen 10-325 MG HYDROcodone -Acetaminop hen 10-325 MG No 1{table t_as_ne eded} QID HYDROcodon e-Acetamin ophen 10-325 MG Rosuvastati n Calcium 20 MG Rosuvastati n Calcium 20 MG No 1{table t} Rosuvastat in Calcium 20 MG Montelukast Sodium 10 MG Montelukast Sodium 10 MG No Montelukas t Sodium 10 MG ProAir HFA 108 (90 Base) MCG/ACT ProAir HFA 108 (90 Base) MCG/ACT No 2{puffs _as_nee ded} QID ProAir HFA 108 (90 Base) MCG/ACT Furosemide 80 MG Furosemide 80 MG No 1{table t} BID Furosemide 80 MG Spironolact one 50 MG Spironolact one 50 MG No 1{table t} QD Spironolac tone 50 MG Ferrous Sulfate 325 (65 Fe) MG Ferrous Sulfate 325 (65 Fe) MG No 1{table t} QD Ferrous Sulfate 325 (65 Fe) MG Cholestyram ine 4 GM Cholestyram ine 4 GM No Cholestyra mine 4 GM Amiodarone HCl 200 MG Amiodarone HCl 200 MG No Amiodarone HCl 200 MG Losartan Potassium 50 MG Losartan Potassium 50 MG No 1{table t} QD Losartan Potassium 50 MG Potassium Chloride Alexus ER 20 MEQ Potassium Chloride Alexus ER 20 MEQ No 1{table t_with_ food} QD Potassium Chloride Alexus ER 20 MEQ Eliquis 5 MG Eliquis 5 MG No 1{table t} BID Eliquis 5 MG metFORMIN HCl ER 500 MG metFORMIN HCl ER 500 MG No metFORMIN HCl ER 500 MG Rosuvastati n Calcium 20 MG Rosuvastati n Calcium 20 MG No 1{table t} Rosuvastat in Calcium 20 MG Omeprazole 40 MG Omeprazole 40 MG No Omeprazole 40 MG Macrobid 100 MG Macrobid 100 MG No BID Macrobid 100 MG Gabapentin 600 MG Gabapentin 600 MG No 1{table t} TID Gabapentin 600 MG Coreg 6.25 MG Coreg 6.25 MG No BID Coreg 6.25 MG tiZANidine HCl 2 MG tiZANidine HCl 2 MG No 1{table t_at_be dtime_a s_neede d} QD tiZANidine HCl 2 MG Flovent Diskus 100 MCG/BLIST Flovent Diskus 100 MCG/BLIST No 1{puff} BID Flovent Diskus 100 MCG/BLIST Combivent Respimat 20-100 MCG/ACT Combivent Respimat 20-100 MCG/ACT No 1{puff} QID Combivent Respimat 20-100 MCG/ACT HYDROcodone -Acetaminop hen 10-325 MG HYDROcodone -Acetaminop hen 10-325 MG No 1{table t_as_ne eded} QID HYDROcodon e-Acetamin ophen 10-325 MG Rosuvastati n Calcium 20 MG Rosuvastati n Calcium 20 MG No 1{table t} Rosuvastat in Calcium 20 MG Montelukast Sodium 10 MG Montelukast Sodium 10 MG No Montelukas t Sodium 10 MG ProAir HFA 108 (90 Base) MCG/ACT ProAir HFA 108 (90 Base) MCG/ACT No 2{puffs _as_nee ded} QID ProAir HFA 108 (90 Base) MCG/ACT Furosemide 80 MG Furosemide 80 MG No 1{table t} BID Furosemide 80 MG Spironolact one 50 MG Spironolact one 50 MG No 1{table t} QD Spironolac tone 50 MG Ferrous Sulfate 325 (65 Fe) MG Ferrous Sulfate 325 (65 Fe) MG No 1{table t} QD Ferrous Sulfate 325 (65 Fe) MG Cholestyram ine 4 GM Cholestyram ine 4 GM No Cholestyra mine 4 GM Amiodarone HCl 200 MG Amiodarone HCl 200 MG No Amiodarone HCl 200 MG Losartan Potassium 50 MG Losartan Potassium 50 MG No 1{table t} QD Losartan Potassium 50 MG Potassium Chloride Alexus ER 20 MEQ Potassium Chloride Alexus ER 20 MEQ No 1{table t_with_ food} QD Potassium Chloride Alexus ER 20 MEQ Eliquis 5 MG Eliquis 5 MG No 1{table t} BID Eliquis 5 MG metFORMIN HCl ER 500 MG metFORMIN HCl ER 500 MG No metFORMIN HCl ER 500 MG Rosuvastati n Calcium 20 MG Rosuvastati n Calcium 20 MG No 1{table t} Rosuvastat in Calcium 20 MG Omeprazole 40 MG Omeprazole 40 MG No Omeprazole 40 MG Macrobid 100 MG Macrobid 100 MG No BID Macrobid 100 MG Gabapentin 600 MG Gabapentin 600 MG No 1{table t} TID Gabapentin 600 MG Coreg 6.25 MG Coreg 6.25 MG No BID Coreg 6.25 MG tiZANidine HCl 2 MG tiZANidine HCl 2 MG No 1{table t_at_be dtime_a s_neede d} QD tiZANidine HCl 2 MG Flovent Diskus 100 MCG/BLIST Flovent Diskus 100 MCG/BLIST No 1{puff} BID Flovent Diskus 100 MCG/BLIST Combivent Respimat 20-100 MCG/ACT Combivent Respimat 20-100 MCG/ACT No 1{puff} QID Combivent Respimat 20-100 MCG/ACT HYDROcodone -Acetaminop hen 10-325 MG HYDROcodone -Acetaminop hen 10-325 MG No 1{table t_as_ne eded} QID HYDROcodon e-Acetamin ophen 10-325 MG Rosuvastati n Calcium 20 MG Rosuvastati n Calcium 20 MG No 1{table t} Rosuvastat in Calcium 20 MG Montelukast Sodium 10 MG Montelukast Sodium 10 MG No Montelukas t Sodium 10 MG ProAir HFA 108 (90 Base) MCG/ACT ProAir HFA 108 (90 Base) MCG/ACT No 2{puffs _as_nee ded} QID ProAir HFA 108 (90 Base) MCG/ACT Furosemide 80 MG Furosemide 80 MG No 1{table t} BID Furosemide 80 MG Spironolact one 50 MG Spironolact one 50 MG No 1{table t} QD Spironolac tone 50 MG Ferrous Sulfate 325 (65 Fe) MG Ferrous Sulfate 325 (65 Fe) MG No 1{table t} QD Ferrous Sulfate 325 (65 Fe) MG Cholestyram ine 4 GM Cholestyram ine 4 GM No Cholestyra mine 4 GM Amiodarone HCl 200 MG Amiodarone HCl 200 MG No Amiodarone HCl 200 MG Losartan Potassium 50 MG Losartan Potassium 50 MG No 1{table t} QD Losartan Potassium 50 MG Potassium Chloride Alexus ER 20 MEQ Potassium Chloride Alexus ER 20 MEQ No 1{table t_with_ food} QD Potassium Chloride Alexus ER 20 MEQ Eliquis 5 MG Eliquis 5 MG No 1{table t} BID Eliquis 5 MG metFORMIN HCl ER 500 MG metFORMIN HCl ER 500 MG No metFORMIN HCl ER 500 MG Rosuvastati n Calcium 20 MG Rosuvastati n Calcium 20 MG No 1{table t} Rosuvastat in Calcium 20 MG Omeprazole 40 MG Omeprazole 40 MG No Omeprazole 40 MG Macrobid 100 MG Macrobid 100 MG No BID Macrobid 100 MG Gabapentin 600 MG Gabapentin 600 MG No 1{table t} TID Gabapentin 600 MG Coreg 6.25 MG Coreg 6.25 MG No BID Coreg 6.25 MG tiZANidine HCl 2 MG tiZANidine HCl 2 MG No 1{table t_at_be dtime_a s_neede d} QD tiZANidine HCl 2 MG Flovent Diskus 100 MCG/BLIST Flovent Diskus 100 MCG/BLIST No 1{puff} BID Flovent Diskus 100 MCG/BLIST Combivent Respimat 20-100 MCG/ACT Combivent Respimat 20-100 MCG/ACT No 1{puff} QID Combivent Respimat 20-100 MCG/ACT HYDROcodone -Acetaminop hen 10-325 MG HYDROcodone -Acetaminop hen 10-325 MG No 1{table t_as_ne eded} QID HYDROcodon e-Acetamin ophen 10-325 MG Rosuvastati n Calcium 20 MG Rosuvastati n Calcium 20 MG No 1{table t} Rosuvastat in Calcium 20 MG Montelukast Sodium 10 MG Montelukast Sodium 10 MG No Montelukas t Sodium 10 MG ProAir HFA 108 (90 Base) MCG/ACT ProAir HFA 108 (90 Base) MCG/ACT No 2{puffs _as_nee ded} QID ProAir HFA 108 (90 Base) MCG/ACT Furosemide 80 MG Furosemide 80 MG No 1{table t} BID Furosemide 80 MG Spironolact one 50 MG Spironolact one 50 MG No 1{table t} QD Spironolac tone 50 MG Ferrous Sulfate 325 (65 Fe) MG Ferrous Sulfate 325 (65 Fe) MG No 1{table t} QD Ferrous Sulfate 325 (65 Fe) MG Cholestyram ine 4 GM Cholestyram ine 4 GM No Cholestyra mine 4 GM Amiodarone HCl 200 MG Amiodarone HCl 200 MG No Amiodarone HCl 200 MG Losartan Potassium 50 MG Losartan Potassium 50 MG No 1{table t} QD Losartan Potassium 50 MG Potassium Chloride Alexus ER 20 MEQ Potassium Chloride Alexus ER 20 MEQ No 1{table t_with_ food} QD Potassium Chloride Alexus ER 20 MEQ Eliquis 5 MG Eliquis 5 MG No 1{table t} BID Eliquis 5 MG metFORMIN HCl ER 500 MG metFORMIN HCl ER 500 MG No metFORMIN HCl ER 500 MG Rosuvastati n Calcium 20 MG Rosuvastati n Calcium 20 MG No 1{table t} Rosuvastat in Calcium 20 MG Omeprazole 40 MG Omeprazole 40 MG No Omeprazole 40 MG Macrobid 100 MG Macrobid 100 MG No BID Macrobid 100 MG Gabapentin 600 MG Gabapentin 600 MG No 1{table t} TID Gabapentin 600 MG Coreg 6.25 MG Coreg 6.25 MG No BID Coreg 6.25 MG tiZANidine HCl 2 MG tiZANidine HCl 2 MG No 1{table t_at_be dtime_a s_neede d} QD tiZANidine HCl 2 MG Flovent Diskus 100 MCG/BLIST Flovent Diskus 100 MCG/BLIST No 1{puff} BID Flovent Diskus 100 MCG/BLIST Combivent Respimat 20-100 MCG/ACT Combivent Respimat 20-100 MCG/ACT No 1{puff} QID Combivent Respimat 20-100 MCG/ACT HYDROcodone -Acetaminop hen 10-325 MG HYDROcodone -Acetaminop hen 10-325 MG No 1{table t_as_ne eded} QID HYDROcodon e-Acetamin ophen 10-325 MG Rosuvastati n Calcium 20 MG Rosuvastati n Calcium 20 MG No 1{table t} Rosuvastat in Calcium 20 MG Montelukast Sodium 10 MG Montelukast Sodium 10 MG No Montelukas t Sodium 10 MG ProAir HFA 108 (90 Base) MCG/ACT ProAir HFA 108 (90 Base) MCG/ACT No 2{puffs _as_nee ded} QID ProAir HFA 108 (90 Base) MCG/ACT Furosemide 80 MG Furosemide 80 MG No 1{table t} BID Furosemide 80 MG Spironolact one 50 MG Spironolact one 50 MG No 1{table t} QD Spironolac tone 50 MG Ferrous Sulfate 325 (65 Fe) MG Ferrous Sulfate 325 (65 Fe) MG No 1{table t} QD Ferrous Sulfate 325 (65 Fe) MG Cholestyram ine 4 GM Cholestyram ine 4 GM No Cholestyra mine 4 GM Amiodarone HCl 200 MG Amiodarone HCl 200 MG No Amiodarone HCl 200 MG Losartan Potassium 50 MG Losartan Potassium 50 MG No 1{table t} QD Losartan Potassium 50 MG Eliquis 5 MG Eliquis 5 MG No Eliquis 5 MG Potassium Chloride Alexus ER 20 MEQ Potassium Chloride Alexus ER 20 MEQ No 1{table t_with_ food} QD Potassium Chloride Alexus ER 20 MEQ Eliquis 5 MG Eliquis 5 MG No 1{table t} BID Eliquis 5 MG metFORMIN HCl ER 500 MG metFORMIN HCl ER 500 MG No metFORMIN HCl ER 500 MG Rosuvastati n Calcium 20 MG Rosuvastati n Calcium 20 MG No 1{table t} Rosuvastat in Calcium 20 MG Omeprazole 40 MG Omeprazole 40 MG No Omeprazole 40 MG Macrobid 100 MG Macrobid 100 MG No BID Macrobid 100 MG Gabapentin 600 MG Gabapentin 600 MG No 1{table t} TID Gabapentin 600 MG Flovent HFA 110 MCG/ACT Flovent HFA 110 MCG/ACT No 1{puff} BID Flovent HFA 110 MCG/ACT Albuterol Sulfate (5 MG/ML) 0.5% Albuterol Sulfate (5 MG/ML) 0.5% No 1{ml_as _needed } QID Albuterol Sulfate (5 MG/ML) 0.5% Coreg 6.25 MG Coreg 6.25 MG No BID Coreg 6.25 MG tiZANidine HCl 2 MG tiZANidine HCl 2 MG No 1{table t_at_be dtime_a s_neede d} QD tiZANidine HCl 2 MG Flovent Diskus 100 MCG/BLIST Flovent Diskus 100 MCG/BLIST No 1{puff} BID Flovent Diskus 100 MCG/BLIST Coreg 25 MG Coreg 25 MG No Co reg 25 MG Combivent Respimat 20-100 MCG/ACT Combivent Respimat 20-100 MCG/ACT No 1{puff} QID Combivent Respimat 20-100 MCG/ACT HYDROcodone -Acetaminop hen 10-325 MG HYDROcodone -Acetaminop hen 10-325 MG No 1{table t_as_ne eded} QID HYDROcodon e-Acetamin ophen 10-325 MG Rosuvastati n Calcium 20 MG Rosuvastati n Calcium 20 MG No 1{table t} Rosuvastat in Calcium 20 MG Montelukast Sodium 10 MG Montelukast Sodium 10 MG No Montelukas t Sodium 10 MG ProAir HFA 108 (90 Base) MCG/ACT ProAir HFA 108 (90 Base) MCG/ACT No 2{puffs _as_nee ded} QID ProAir HFA 108 (90 Base) MCG/ACT Furosemide 80 MG Furosemide 80 MG No 1{table t} BID Furosemide 80 MG Spironolact one 50 MG Spironolact one 50 MG No 1{table t} QD Spironolac tone 50 MG Ferrous Sulfate 325 (65 Fe) MG Ferrous Sulfate 325 (65 Fe) MG No 1{table t} QD Ferrous Sulfate 325 (65 Fe) MG Cholestyram ine 4 GM Cholestyram ine 4 GM No Cholestyra mine 4 GM Aspir-81 81 MG Aspir-81 81 MG No 1{table t} QD Aspir-81 81 MG Amiodarone HCl 200 MG Amiodarone HCl 200 MG No Amiodarone HCl 200 MG Losartan Potassium 50 MG Losartan Potassium 50 MG No 1{table t} QD Losartan Potassium 50 MG Potassium Chloride Alexus ER 20 MEQ Potassium Chloride Alexus ER 20 MEQ No 1{table t_with_ food} QD Potassium Chloride Alexus ER 20 MEQ Eliquis 5 MG Eliquis 5 MG No 1{table t} BID Eliquis 5 MG metFORMIN HCl ER 500 MG metFORMIN HCl ER 500 MG No metFORMIN HCl ER 500 MG Rosuvastati n Calcium 20 MG Rosuvastati n Calcium 20 MG No 1{table t} Rosuvastat in Calcium 20 MG Omeprazole 40 MG Omeprazole 40 MG No Omeprazole 40 MG Macrobid 100 MG Macrobid 100 MG No BID Macrobid 100 MG Gabapentin 600 MG Gabapentin 600 MG No 1{table t} TID Gabapentin 600 MG Montelukast Sodium 10 MG Montelukast Sodium 10 MG No Montelukas t Sodium 10 MG ProAir HFA 108 (90 Base) MCG/ACT ProAir HFA 108 (90 Base) MCG/ACT No 2{puffs _as_nee ded} QID ProAir HFA 108 (90 Base) MCG/ACT Cholestyram ine 4 GM Cholestyram ine 4 GM No 1{packe t_mixed _with_w ater_or _non-ca rbonate d_drink } BID Cholestyra mine 4 GM Coreg 6.25 MG Coreg 6.25 MG No BID Coreg 6.25 MG Rosuvastati n Calcium 10 MG Rosuvastati n Calcium 10 MG No Rosuvastat in Calcium 10 MG tiZANidine HCl 2 MG tiZANidine HCl 2 MG No 1{table t_at_be dtime_a s_neede d} QD tiZANidine HCl 2 MG Flovent Diskus 100 MCG/BLIST Flovent Diskus 100 MCG/BLIST No 1{puff} BID Flovent Diskus 100 MCG/BLIST Combivent Respimat 20-100 MCG/ACT Combivent Respimat 20-100 MCG/ACT No 1{puff} QID Combivent Respimat 20-100 MCG/ACT HYDROcodone -Acetaminop hen 10-325 MG HYDROcodone -Acetaminop hen 10-325 MG No 1{table t_as_ne eded} QID HYDROcodon e-Acetamin ophen 10-325 MG Rosuvastati n Calcium 20 MG Rosuvastati n Calcium 20 MG No 1{table t} Rosuvastat in Calcium 20 MG Montelukast Sodium 10 MG Montelukast Sodium 10 MG No Montelukas t Sodium 10 MG ProAir HFA 108 (90 Base) MCG/ACT ProAir HFA 108 (90 Base) MCG/ACT No 2{puffs _as_nee ded} QID ProAir HFA 108 (90 Base) MCG/ACT Furosemide 80 MG Furosemide 80 MG No 1{table t} BID Furosemide 80 MG Spironolact one 50 MG Spironolact one 50 MG No 1{table t} QD Spironolac tone 50 MG Flovent Diskus 100 MCG/BLIST Flovent Diskus 100 MCG/BLIST No 1{puff} BID Flovent Diskus 100 MCG/BLIST Ferrous Sulfate 325 (65 Fe) MG Ferrous Sulfate 325 (65 Fe) MG No 1{table t} QD Ferrous Sulfate 325 (65 Fe) MG Cholestyram ine 4 GM Cholestyram ine 4 GM No Cholestyra mine 4 GM Amiodarone HCl 200 MG Amiodarone HCl 200 MG No Amiodarone HCl 200 MG Losartan Potassium 50 MG Losartan Potassium 50 MG No 1{table t} QD Losartan Potassium 50 MG Potassium Chloride Alexus ER 20 MEQ Potassium Chloride Alexus ER 20 MEQ No 1{table t_with_ food} QD Potassium Chloride Alexus ER 20 MEQ Eliquis 5 MG Eliquis 5 MG No 1{table t} BID Eliquis 5 MG metFORMIN HCl ER 500 MG metFORMIN HCl ER 500 MG No metFORMIN HCl ER 500 MG Rosuvastati n Calcium 20 MG Rosuvastati n Calcium 20 MG No 1{table t} Rosuvastat in Calcium 20 MG Omeprazole 40 MG Omeprazole 40 MG No Omeprazole 40 MG Macrobid 100 MG Macrobid 100 MG No BID Macrobid 100 MG Spironolact one 25 MG Spironolact one 25 MG No 1{table t} Spironolac tone 25 MG Gabapentin 600 MG Gabapentin 600 MG No 1{table t} TID Gabapentin 600 MG Furosemide 40 MG Furosemide 40 MG No Furosemide 40 MG Combivent Respimat 20-100 MCG/ACT Combivent Respimat 20-100 MCG/ACT No 1{puff} QID Combivent Respimat 20-100 MCG/ACT HYDROcodone -Acetaminop hen 10-325 MG HYDROcodone -Acetaminop hen 10-325 MG No 1{table t_as_ne eded} QID HYDROcodon e-Acetamin ophen 10-325 MG Spironolact one 50 MG Spironolact one 50 MG No 1{table t} QD Spironolac tone 50 MG Furosemide 80 MG Furosemide 80 MG No 1{table t} BID Furosemide 80 MG Ferrous Sulfate 325 (65 Fe) MG Ferrous Sulfate 325 (65 Fe) MG No 1{table t} QD Ferrous Sulfate 325 (65 Fe) MG ProAir HFA 108 (90 Base) MCG/ACT ProAir HFA 108 (90 Base) MCG/ACT No 2{puffs _as_nee ded} QID ProAir HFA 108 (90 Base) MCG/ACT Cholestyram ine 4 GM Cholestyram ine 4 GM No Cholestyra mine 4 GM Losartan Potassium 50 MG Losartan Potassium 50 MG No 1{table t} QD Losartan Potassium 50 MG Amiodarone HCl 200 MG Amiodarone HCl 200 MG No Amiodarone HCl 200 MG Rosuvastati n Calcium 20 MG Rosuvastati n Calcium 20 MG No 1{table t} Rosuvastat in Calcium 20 MG Simvastatin 20 MG Simvastatin 20 MG No Simvastati n 20 MG metFORMIN HCl ER 500 MG metFORMIN HCl ER 500 MG No QD metFORMIN HCl ER 500 MG Montelukast Sodium 10 MG Montelukast Sodium 10 MG No Montelukas t Sodium 10 MG metFORMIN HCl ER 500 MG metFORMIN HCl ER 500 MG No metFORMIN HCl ER 500 MG Eliquis 5 MG Eliquis 5 MG No 1{table t} BID Eliquis 5 MG Combivent Respimat 20-100 MCG/ACT Combivent Respimat 20-100 MCG/ACT No 1{puff} QID Combivent Respimat 20-100 MCG/ACT Coreg 6.25 MG Coreg 6.25 MG No 1{table t_with_ food} BID Coreg 6.25 MG Gabapentin 600 MG Gabapentin 600 MG No 1{table t} TID Gabapentin 600 MG Flovent Diskus 100 MCG/BLIST Flovent Diskus 100 MCG/BLIST No 1{puff} BID Flovent Diskus 100 MCG/BLIST Omeprazole 40 MG Omeprazole 40 MG No 1{capsu le} QD Omeprazole 40 MG Omeprazole 40 MG Omeprazole 40 MG No Omeprazole 40 MG Potassium Chloride Alexus ER 20 MEQ Potassium Chloride Alexus ER 20 MEQ No 1{table t_with_ food} QD Potassium Chloride Alexus ER 20 MEQ tiZANidine HCl 2 MG tiZANidine HCl 2 MG No 1{table t_at_be dtime_a s_neede d} QD tiZANidine HCl 2 MG Macrobid 100 MG Macrobid 100 MG No BID Macrobid 100 MG cloNIDine HCl 0.2 MG cloNIDine HCl 0.2 MG No 1{table t} cloNIDine HCl 0.2 MG Cholestyram ine 4 GM Cholestyram ine 4 GM No Cholestyra mine 4 GM HYDROcodone -Acetaminop hen 10-325 MG HYDROcodone -Acetaminop hen 10-325 MG No 1{table t_as_ne eded} QID HYDROcodon e-Acetamin ophen 10-325 MG Amiodarone HCl 200 MG Amiodarone HCl 200 MG No Amiodarone HCl 200 MG ProAir HFA 108 (90 Base) MCG/ACT ProAir HFA 108 (90 Base) MCG/ACT No 2{puffs _as_nee ded} QID ProAir HFA 108 (90 Base) MCG/ACT Ferrous Sulfate 325 (65 Fe) MG Ferrous Sulfate 325 (65 Fe) MG No 1{table t} QD Ferrous Sulfate 325 (65 Fe) MG Ferrous Sulfate 325 (65 Fe) MG Ferrous Sulfate 325 (65 Fe) MG No 1{table t} QD Ferrous Sulfate 325 (65 Fe) MG Losartan Potassium 50 MG Losartan Potassium 50 MG No 1{table t} QD Losartan Potassium 50 MG Flovent Diskus 100 MCG/BLIST Flovent Diskus 100 MCG/BLIST No 1{puff} BID Flovent Diskus 100 MCG/BLIST Rosuvastati n Calcium 20 MG Rosuvastati n Calcium 20 MG No 1{table t} Rosuvastat in Calcium 20 MG metFORMIN HCl ER 500 MG metFORMIN HCl ER 500 MG No metFORMIN HCl ER 500 MG Gabapentin 600 MG Gabapentin 600 MG No 1{table t} TID Gabapentin 600 MG Montelukast Sodium 10 MG Montelukast Sodium 10 MG No Montelukas t Sodium 10 MG Macrobid 100 MG Macrobid 100 MG No BID Macrobid 100 MG Neurontin 600 MG Neurontin 600 MG No 1{table t} QD Neurontin 600 MG Omeprazole 40 MG Omeprazole 40 MG No Omeprazole 40 MG Coreg 6.25 MG Coreg 6.25 MG No 1{table t_with_ food} BID Coreg 6.25 MG Eliquis 5 MG Eliquis 5 MG No 1{table t} BID Eliquis 5 MG Combivent Respimat 20-100 MCG/ACT Combivent Respimat 20-100 MCG/ACT No 1{puff} QID Combivent Respimat 20-100 MCG/ACT Furosemide 80 MG Furosemide 80 MG No 1{table t} BID Furosemide 80 MG Potassium Chloride Alexus ER 20 MEQ Potassium Chloride Alexus ER 20 MEQ No 1{table t_with_ food} QD Potassium Chloride Alexus ER 20 MEQ tiZANidine HCl 2 MG tiZANidine HCl 2 MG No 1{table t_at_be dtime_a s_neede d} QD tiZANidine HCl 2 MG Spironolact one 50 MG Spironolact one 50 MG No 1{table t} QD Spironolac tone 50 MG Cholestyram ine 4 GM Cholestyram ine 4 GM No Cholestyra mine 4 GM HYDROcodone -Acetaminop hen 10-325 MG HYDROcodone -Acetaminop hen 10-325 MG No 1{table t_as_ne eded} QID HYDROcodon e-Acetamin ophen 10-325 MG Amiodarone HCl 200 MG Amiodarone HCl 200 MG No Amiodarone HCl 200 MG ProAir HFA 108 (90 Base) MCG/ACT ProAir HFA 108 (90 Base) MCG/ACT No 2{puffs _as_nee ded} QID ProAir HFA 108 (90 Base) MCG/ACT Ferrous Sulfate 325 (65 Fe) MG Ferrous Sulfate 325 (65 Fe) MG No 1{table t} QD Ferrous Sulfate 325 (65 Fe) MG Losartan Potassium 50 MG Losartan Potassium 50 MG No 1{table t} QD Losartan Potassium 50 MG Flovent Diskus 100 MCG/BLIST Flovent Diskus 100 MCG/BLIST No 1{puff} BID Flovent Diskus 100 MCG/BLIST Rosuvastati n Calcium 20 MG Rosuvastati n Calcium 20 MG No 1{table t} Rosuvastat in Calcium 20 MG metFORMIN HCl ER 500 MG metFORMIN HCl ER 500 MG No metFORMIN HCl ER 500 MG Gabapentin 600 MG Gabapentin 600 MG No 1{table t} TID Gabapentin 600 MG Montelukast Sodium 10 MG Montelukast Sodium 10 MG No Montelukas t Sodium 10 MG Macrobid 100 MG Macrobid 100 MG No BID Macrobid 100 MG Omeprazole 40 MG Omeprazole 40 MG No Omeprazole 40 MG Coreg 6.25 MG Coreg 6.25 MG No 1{table t_with_ food} BID Coreg 6.25 MG Eliquis 5 MG Eliquis 5 MG No 1{table t} BID Eliquis 5 MG Combivent Respimat 20-100 MCG/ACT Combivent Respimat 20-100 MCG/ACT No 1{puff} QID Combivent Respimat 20-100 MCG/ACT Furosemide 80 MG Furosemide 80 MG No 1{table t} BID Furosemide 80 MG Potassium Chloride Alexus ER 20 MEQ Potassium Chloride Alexus ER 20 MEQ No 1{table t_with_ food} QD Potassium Chloride Alexus ER 20 MEQ tiZANidine HCl 2 MG tiZANidine HCl 2 MG No 1{table t_at_be dtime_a s_neede d} QD tiZANidine HCl 2 MG Spironolact one 50 MG Spironolact one 50 MG No 1{table t} QD Spironolac tone 50 MG Eliquis 5 MG Eliquis 5 MG No Eliquis 5 MG HYDROcodone -Acetaminop hen 10-325 MG HYDROcodone -Acetaminop hen 10-325 MG No 1{table t_as_ne eded} QID HYDROcodon e-Acetamin ophen 10-325 MG Potassium Chloride Alexus ER 20 MEQ Potassium Chloride Alexus ER 20 MEQ No 1{table t_with_ food} QD Potassium Chloride Alexus ER 20 MEQ tiZANidine HCl 2 MG tiZANidine HCl 2 MG No 1{table t_at_be dtime_a s_neede d} QD tiZANidine HCl 2 MG Losartan Potassium 50 MG Losartan Potassium 50 MG No 1{table t} QD Losartan Potassium 50 MG Omeprazole 40 MG Omeprazole 40 MG No Omeprazole 40 MG Ferrous Sulfate 325 (65 Fe) MG Ferrous Sulfate 325 (65 Fe) MG No 1{table t} QD Ferrous Sulfate 325 (65 Fe) MG Gabapentin 600 MG Gabapentin 600 MG No 1{table t} TID Gabapentin 600 MG Flovent Diskus 100 MCG/BLIST Flovent Diskus 100 MCG/BLIST No 1{puff} BID Flovent Diskus 100 MCG/BLIST ProAir HFA 108 (90 Base) MCG/ACT ProAir HFA 108 (90 Base) MCG/ACT No 2{puffs _as_nee ded} QID ProAir HFA 108 (90 Base) MCG/ACT Flovent HFA 110 MCG/ACT Flovent HFA 110 MCG/ACT No 1{puff} BID Flovent HFA 110 MCG/ACT Eliquis 5 MG Eliquis 5 MG No 1{table t} BID Eliquis 5 MG Furosemide 80 MG Furosemide 80 MG No 1{table t} BID Furosemide 80 MG Spironolact one 50 MG Spironolact one 50 MG No 1{table t} QD Spironolac tone 50 MG Combivent Respimat 20-100 MCG/ACT Combivent Respimat 20-100 MCG/ACT No 1{puff} QID Combivent Respimat 20-100 MCG/ACT Macrobid 100 MG Macrobid 100 MG No BID Macrobid 100 MG Montelukast Sodium 10 MG Montelukast Sodium 10 MG No Montelukas t Sodium 10 MG Albuterol Sulfate (5 MG/ML) 0.5% Albuterol Sulfate (5 MG/ML) 0.5% No 1{ml_as _needed } QID Albuterol Sulfate (5 MG/ML) 0.5% Coreg 6.25 MG Coreg 6.25 MG No 1{table t_with_ food} BID Coreg 6.25 MG Cholestyram ine 4 GM Cholestyram ine 4 GM No Cholestyra mine 4 GM Amiodarone HCl 200 MG Amiodarone HCl 200 MG No Amiodarone HCl 200 MG metFORMIN HCl ER 500 MG metFORMIN HCl ER 500 MG No metFORMIN HCl ER 500 MG Rosuvastati n Calcium 20 MG Rosuvastati n Calcium 20 MG No Rosuvastat in Calcium 20 MG Coreg 25 MG Coreg 25 MG No Co reg 25 MG HYDROcodone -Acetaminop hen 10-325 MG HYDROcodone -Acetaminop hen 10-325 MG No 1{table t_as_ne eded} QID HYDROcodon e-Acetamin ophen 10-325 MG Potassium Chloride Alexus ER 20 MEQ Potassium Chloride Alexus ER 20 MEQ No Potassium Chloride Alexus ER 20 MEQ tiZANidine HCl 2 MG tiZANidine HCl 2 MG No 1{table t_at_be dtime_a s_neede d} QD tiZANidine HCl 2 MG Losartan Potassium 50 MG Losartan Potassium 50 MG No 1{table t} QD Losartan Potassium 50 MG Aspir-81 81 MG Aspir-81 81 MG No 1{table t} QD Aspir-81 81 MG Omeprazole 40 MG Omeprazole 40 MG No Omeprazole 40 MG Ferrous Sulfate 325 (65 Fe) MG Ferrous Sulfate 325 (65 Fe) MG No 1{table t} QD Ferrous Sulfate 325 (65 Fe) MG Gabapentin 600 MG Gabapentin 600 MG No 1{table t} TID Gabapentin 600 MG Flovent Diskus 100 MCG/BLIST Flovent Diskus 100 MCG/BLIST No 1{puff} BID Flovent Diskus 100 MCG/BLIST ProAir HFA 108 (90 Base) MCG/ACT ProAir HFA 108 (90 Base) MCG/ACT No 2{puffs _as_nee ded} QID ProAir HFA 108 (90 Base) MCG/ACT Eliquis 5 MG Eliquis 5 MG No 1{table t} BID Eliquis 5 MG Furosemide 80 MG Furosemide 80 MG No 1{table t} BID Furosemide 80 MG Spironolact one 50 MG Spironolact one 50 MG No 1{table t} QD Spironolac tone 50 MG Montelukast Sodium 10 MG Montelukast Sodium 10 MG No Montelukas t Sodium 10 MG Combivent Respimat 20-100 MCG/ACT Combivent Respimat 20-100 MCG/ACT No 1{puff} QID Combivent Respimat 20-100 MCG/ACT Macrobid 100 MG Macrobid 100 MG No BID Macrobid 100 MG Montelukast Sodium 10 MG Montelukast Sodium 10 MG No Montelukas t Sodium 10 MG Coreg 6.25 MG Coreg 6.25 MG No 1{table t_with_ food} BID Coreg 6.25 MG Cholestyram ine 4 GM Cholestyram ine 4 GM No Cholestyra mine 4 GM Amiodarone HCl 200 MG Amiodarone HCl 200 MG No Amiodarone HCl 200 MG metFORMIN HCl ER 500 MG metFORMIN HCl ER 500 MG No metFORMIN HCl ER 500 MG ProAir HFA 108 (90 Base) MCG/ACT ProAir HFA 108 (90 Base) MCG/ACT No 2{puffs _as_nee ded} QID ProAir HFA 108 (90 Base) MCG/ACT Rosuvastati n Calcium 20 MG Rosuvastati n Calcium 20 MG No Rosuvastat in Calcium 20 MG Cholestyram ine 4 GM Cholestyram ine 4 GM No 1{packe t_mixed _with_w ater_or _non-ca rbonate d_drink } BID Cholestyra mine 4 GM HYDROcodone -Acetaminop hen 10-325 MG HYDROcodone -Acetaminop hen 10-325 MG No 1{table t_as_ne eded} QID HYDROcodon e-Acetamin ophen 10-325 MG Potassium Chloride Alexus ER 20 MEQ Potassium Chloride Alexus ER 20 MEQ No Potassium Chloride Alexus ER 20 MEQ tiZANidine HCl 2 MG tiZANidine HCl 2 MG No 1{table t_at_be dtime_a s_neede d} QD tiZANidine HCl 2 MG Losartan Potassium 50 MG Losartan Potassium 50 MG No 1{table t} QD Losartan Potassium 50 MG Omeprazole 40 MG Omeprazole 40 MG No Omeprazole 40 MG Ferrous Sulfate 325 (65 Fe) MG Ferrous Sulfate 325 (65 Fe) MG No 1{table t} QD Ferrous Sulfate 325 (65 Fe) MG Gabapentin 600 MG Gabapentin 600 MG No 1{table t} TID Gabapentin 600 MG Flovent Diskus 100 MCG/BLIST Flovent Diskus 100 MCG/BLIST No 1{puff} BID Flovent Diskus 100 MCG/BLIST ProAir HFA 108 (90 Base) MCG/ACT ProAir HFA 108 (90 Base) MCG/ACT No 2{puffs _as_nee ded} QID ProAir HFA 108 (90 Base) MCG/ACT Rosuvastati n Calcium 10 MG Rosuvastati n Calcium 10 MG No Rosuvastat in Calcium 10 MG Eliquis 5 MG Eliquis 5 MG No 1{table t} BID Eliquis 5 MG Furosemide 80 MG Furosemide 80 MG No 1{table t} BID Furosemide 80 MG Spironolact one 50 MG Spironolact one 50 MG No 1{table t} QD Spironolac tone 50 MG Combivent Respimat 20-100 MCG/ACT Combivent Respimat 20-100 MCG/ACT No 1{puff} QID Combivent Respimat 20-100 MCG/ACT Macrobid 100 MG Macrobid 100 MG No BID Macrobid 100 MG Montelukast Sodium 10 MG Montelukast Sodium 10 MG No Montelukas t Sodium 10 MG Flovent Diskus 100 MCG/BLIST Flovent Diskus 100 MCG/BLIST No 1{puff} BID Flovent Diskus 100 MCG/BLIST Coreg 6.25 MG Coreg 6.25 MG No 1{table t_with_ food} BID Coreg 6.25 MG Cholestyram ine 4 GM Cholestyram ine 4 GM No Cholestyra mine 4 GM Amiodarone HCl 200 MG Amiodarone HCl 200 MG No Amiodarone HCl 200 MG metFORMIN HCl ER 500 MG metFORMIN HCl ER 500 MG No metFORMIN HCl ER 500 MG Rosuvastati n Calcium 20 MG Rosuvastati n Calcium 20 MG No Rosuvastat in Calcium 20 MG Spironolact one 25 MG Spironolact one 25 MG No 1{table t} Spironolac tone 25 MG Furosemide 40 MG Furosemide 40 MG No Furosemide 40 MG HYDROcodone -Acetaminop hen 10-325 MG HYDROcodone -Acetaminop hen 10-325 MG No 1{table t_as_ne eded} QID HYDROcodon e-Acetamin ophen 10-325 MG Potassium Chloride Alexus ER 20 MEQ Potassium Chloride Alexus ER 20 MEQ No Potassium Chloride Alexus ER 20 MEQ tiZANidine HCl 2 MG tiZANidine HCl 2 MG No 1{table t_at_be dtime_a s_neede d} QD tiZANidine HCl 2 MG Combivent Respimat 20-100 MCG/ACT Combivent Respimat 20-100 MCG/ACT No 1{puff} QID Combivent Respimat 20-100 MCG/ACT Losartan Potassium 50 MG Losartan Potassium 50 MG No 1{table t} QD Losartan Potassium 50 MG Omeprazole 40 MG Omeprazole 40 MG No Omeprazole 40 MG Ferrous Sulfate 325 (65 Fe) MG Ferrous Sulfate 325 (65 Fe) MG No 1{table t} QD Ferrous Sulfate 325 (65 Fe) MG Gabapentin 600 MG Gabapentin 600 MG No 1{table t} TID Gabapentin 600 MG Flovent Diskus 100 MCG/BLIST Flovent Diskus 100 MCG/BLIST No 1{puff} BID Flovent Diskus 100 MCG/BLIST ProAir HFA 108 (90 Base) MCG/ACT ProAir HFA 108 (90 Base) MCG/ACT No 2{puffs _as_nee ded} QID ProAir HFA 108 (90 Base) MCG/ACT Eliquis 5 MG Eliquis 5 MG No 1{table t} BID Eliquis 5 MG Furosemide 80 MG Furosemide 80 MG No 1{table t} BID Furosemide 80 MG Spironolact one 50 MG Spironolact one 50 MG No 1{table t} QD Spironolac tone 50 MG Combivent Respimat 20-100 MCG/ACT Combivent Respimat 20-100 MCG/ACT No 1{puff} QID Combivent Respimat 20-100 MCG/ACT Macrobid 100 MG Macrobid 100 MG No BID Macrobid 100 MG Montelukast Sodium 10 MG Montelukast Sodium 10 MG No Montelukas t Sodium 10 MG Coreg 6.25 MG Coreg 6.25 MG No 1{table t_with_ food} BID Coreg 6.25 MG Cholestyram ine 4 GM Cholestyram ine 4 GM No Cholestyra mine 4 GM Amiodarone HCl 200 MG Amiodarone HCl 200 MG No Amiodarone HCl 200 MG Simvastatin 20 MG Simvastatin 20 MG No Simvastati n 20 MG metFORMIN HCl ER 500 MG metFORMIN HCl ER 500 MG No metFORMIN HCl ER 500 MG Rosuvastati n Calcium 20 MG Rosuvastati n Calcium 20 MG No Rosuvastat in Calcium 20 MG Omeprazole 40 MG Omeprazole 40 MG No 1{capsu le} QD Omeprazole 40 MG cloNIDine HCl 0.2 MG cloNIDine HCl 0.2 MG No 1{table t} cloNIDine HCl 0.2 MG HYDROcodone -Acetaminop hen 10-325 MG HYDROcodone -Acetaminop hen 10-325 MG No 1{table t_as_ne eded} QID HYDROcodon e-Acetamin ophen 10-325 MG Potassium Chloride Alexus ER 20 MEQ Potassium Chloride Alexus ER 20 MEQ No Potassium Chloride Alexus ER 20 MEQ tiZANidine HCl 2 MG tiZANidine HCl 2 MG No 1{table t_at_be dtime_a s_neede d} QD tiZANidine HCl 2 MG Losartan Potassium 50 MG Losartan Potassium 50 MG No 1{table t} QD Losartan Potassium 50 MG Omeprazole 40 MG Omeprazole 40 MG No Omeprazole 40 MG Ferrous Sulfate 325 (65 Fe) MG Ferrous Sulfate 325 (65 Fe) MG No 1{table t} QD Ferrous Sulfate 325 (65 Fe) MG Gabapentin 600 MG Gabapentin 600 MG No 1{table t} TID Gabapentin 600 MG Flovent Diskus 100 MCG/BLIST Flovent Diskus 100 MCG/BLIST No 1{puff} BID Flovent Diskus 100 MCG/BLIST ProAir HFA 108 (90 Base) MCG/ACT ProAir HFA 108 (90 Base) MCG/ACT No 2{puffs _as_nee ded} QID ProAir HFA 108 (90 Base) MCG/ACT Ferrous Sulfate 325 (65 Fe) MG Ferrous Sulfate 325 (65 Fe) MG No 1{table t} QD Ferrous Sulfate 325 (65 Fe) MG Eliquis 5 MG Eliquis 5 MG No 1{table t} BID Eliquis 5 MG Furosemide 80 MG Furosemide 80 MG No 1{table t} BID Furosemide 80 MG Spironolact one 50 MG Spironolact one 50 MG No 1{table t} QD Spironolac tone 50 MG Combivent Respimat 20-100 MCG/ACT Combivent Respimat 20-100 MCG/ACT No 1{puff} QID Combivent Respimat 20-100 MCG/ACT Macrobid 100 MG Macrobid 100 MG No BID Macrobid 100 MG Montelukast Sodium 10 MG Montelukast Sodium 10 MG No Montelukas t Sodium 10 MG Coreg 6.25 MG Coreg 6.25 MG No 1{table t_with_ food} BID Coreg 6.25 MG Neurontin 600 MG Neurontin 600 MG No 1{table t} QD Neurontin 600 MG Cholestyram ine 4 GM Cholestyram ine 4 GM No Cholestyra mine 4 GM Amiodarone HCl 200 MG Amiodarone HCl 200 MG No Amiodarone HCl 200 MG metFORMIN HCl ER 500 MG metFORMIN HCl ER 500 MG No metFORMIN HCl ER 500 MG Rosuvastati n Calcium 20 MG Rosuvastati n Calcium 20 MG No Rosuvastat in Calcium 20 MG HYDROcodone -Acetaminop hen 10-325 MG HYDROcodone -Acetaminop hen 10-325 MG No 1{table t_as_ne eded} QID HYDROcodon e-Acetamin ophen 10-325 MG Potassium Chloride Alexus ER 20 MEQ Potassium Chloride Alexus ER 20 MEQ No Potassium Chloride Alexus ER 20 MEQ tiZANidine HCl 2 MG tiZANidine HCl 2 MG No 1{table t_at_be dtime_a s_neede d} QD tiZANidine HCl 2 MG Losartan Potassium 50 MG Losartan Potassium 50 MG No 1{table t} QD Losartan Potassium 50 MG Omeprazole 40 MG Omeprazole 40 MG No Omeprazole 40 MG Ferrous Sulfate 325 (65 Fe) MG Ferrous Sulfate 325 (65 Fe) MG No 1{table t} QD Ferrous Sulfate 325 (65 Fe) MG Gabapentin 600 MG Gabapentin 600 MG No 1{table t} TID Gabapentin 600 MG Flovent Diskus 100 MCG/BLIST Flovent Diskus 100 MCG/BLIST No 1{puff} BID Flovent Diskus 100 MCG/BLIST ProAir HFA 108 (90 Base) MCG/ACT ProAir HFA 108 (90 Base) MCG/ACT No 2{puffs _as_nee ded} QID ProAir HFA 108 (90 Base) MCG/ACT Eliquis 5 MG Eliquis 5 MG No 1{table t} BID Eliquis 5 MG Furosemide 80 MG Furosemide 80 MG No 1{table t} BID Furosemide 80 MG Spironolact one 50 MG Spironolact one 50 MG No 1{table t} QD Spironolac tone 50 MG Combivent Respimat 20-100 MCG/ACT Combivent Respimat 20-100 MCG/ACT No 1{puff} QID Combivent Respimat 20-100 MCG/ACT Macrobid 100 MG Macrobid 100 MG No BID Macrobid 100 MG Montelukast Sodium 10 MG Montelukast Sodium 10 MG No Montelukas t Sodium 10 MG Coreg 6.25 MG Coreg 6.25 MG No 1{table t_with_ food} BID Coreg 6.25 MG Cholestyram ine 4 GM Cholestyram ine 4 GM No Cholestyra mine 4 GM Amiodarone HCl 200 MG Amiodarone HCl 200 MG No Amiodarone HCl 200 MG metFORMIN HCl ER 500 MG metFORMIN HCl ER 500 MG No metFORMIN HCl ER 500 MG Rosuvastati n Calcium 20 MG Rosuvastati n Calcium 20 MG No Rosuvastat in Calcium 20 MG Eliquis 5 MG Eliquis 5 MG No Eliquis 5 MG HYDROcodone -Acetaminop hen 10-325 MG HYDROcodone -Acetaminop hen 10-325 MG No 1{table t_as_ne eded} QID HYDROcodon e-Acetamin ophen 10-325 MG Potassium Chloride Alexus ER 20 MEQ Potassium Chloride Alexus ER 20 MEQ No Potassium Chloride Alexus ER 20 MEQ tiZANidine HCl 2 MG tiZANidine HCl 2 MG No 1{table t_at_be dtime_a s_neede d} QD tiZANidine HCl 2 MG Losartan Potassium 50 MG Losartan Potassium 50 MG No 1{table t} QD Losartan Potassium 50 MG Omeprazole 40 MG Omeprazole 40 MG No Omeprazole 40 MG Ferrous Sulfate 325 (65 Fe) MG Ferrous Sulfate 325 (65 Fe) MG No 1{table t} QD Ferrous Sulfate 325 (65 Fe) MG Gabapentin 600 MG Gabapentin 600 MG No 1{table t} TID Gabapentin 600 MG Flovent Diskus 100 MCG/BLIST Flovent Diskus 100 MCG/BLIST No 1{puff} BID Flovent Diskus 100 MCG/BLIST ProAir HFA 108 (90 Base) MCG/ACT ProAir HFA 108 (90 Base) MCG/ACT No 2{puffs _as_nee ded} QID ProAir HFA 108 (90 Base) MCG/ACT Flovent HFA 110 MCG/ACT Flovent HFA 110 MCG/ACT No 1{puff} BID Flovent HFA 110 MCG/ACT Eliquis 5 MG Eliquis 5 MG No 1{table t} BID Eliquis 5 MG Furosemide 80 MG Furosemide 80 MG No 1{table t} BID Furosemide 80 MG Spironolact one 50 MG Spironolact one 50 MG No 1{table t} QD Spironolac tone 50 MG Combivent Respimat 20-100 MCG/ACT Combivent Respimat 20-100 MCG/ACT No 1{puff} QID Combivent Respimat 20-100 MCG/ACT Macrobid 100 MG Macrobid 100 MG No BID Macrobid 100 MG Montelukast Sodium 10 MG Montelukast Sodium 10 MG No Montelukas t Sodium 10 MG Coreg 6.25 MG Coreg 6.25 MG No 1{table t_with_ food} BID Coreg 6.25 MG Albuterol Sulfate (5 MG/ML) 0.5% Albuterol Sulfate (5 MG/ML) 0.5% No 1{ml_as _needed } QID Albuterol Sulfate (5 MG/ML) 0.5% Cholestyram ine 4 GM Cholestyram ine 4 GM No Cholestyra mine 4 GM Amiodarone HCl 200 MG Amiodarone HCl 200 MG No Amiodarone HCl 200 MG metFORMIN HCl ER 500 MG metFORMIN HCl ER 500 MG No metFORMIN HCl ER 500 MG Rosuvastati n Calcium 20 MG Rosuvastati n Calcium 20 MG No Rosuvastat in Calcium 20 MG Coreg 25 MG Coreg 25 MG No Co reg 25 MG Aspir-81 81 MG Aspir-81 81 MG No 1{table t} QD Aspir-81 81 MG HYDROcodone -Acetaminop hen 10-325 MG HYDROcodone -Acetaminop hen 10-325 MG No 1{table t_as_ne eded} QID HYDROcodon e-Acetamin ophen 10-325 MG Potassium Chloride Alexus ER 20 MEQ Potassium Chloride Alexus ER 20 MEQ No Potassium Chloride Alexus ER 20 MEQ tiZANidine HCl 2 MG tiZANidine HCl 2 MG No 1{table t_at_be dtime_a s_neede d} QD tiZANidine HCl 2 MG Montelukast Sodium 10 MG Montelukast Sodium 10 MG No Montelukas t Sodium 10 MG Losartan Potassium 50 MG Losartan Potassium 50 MG No 1{table t} QD Losartan Potassium 50 MG Omeprazole 40 MG Omeprazole 40 MG No Omeprazole 40 MG Ferrous Sulfate 325 (65 Fe) MG Ferrous Sulfate 325 (65 Fe) MG No 1{table t} QD Ferrous Sulfate 325 (65 Fe) MG Gabapentin 600 MG Gabapentin 600 MG No 1{table t} TID Gabapentin 600 MG Flovent Diskus 100 MCG/BLIST Flovent Diskus 100 MCG/BLIST No 1{puff} BID Flovent Diskus 100 MCG/BLIST ProAir HFA 108 (90 Base) MCG/ACT ProAir HFA 108 (90 Base) MCG/ACT No 2{puffs _as_nee ded} QID ProAir HFA 108 (90 Base) MCG/ACT Eliquis 5 MG Eliquis 5 MG No 1{table t} BID Eliquis 5 MG Furosemide 80 MG Furosemide 80 MG No 1{table t} BID Furosemide 80 MG ProAir HFA 108 (90 Base) MCG/ACT ProAir HFA 108 (90 Base) MCG/ACT No 2{puffs _as_nee ded} QID ProAir HFA 108 (90 Base) MCG/ACT Spironolact one 50 MG Spironolact one 50 MG No 1{table t} QD Spironolac tone 50 MG Combivent Respimat 20-100 MCG/ACT Combivent Respimat 20-100 MCG/ACT No 1{puff} QID Combivent Respimat 20-100 MCG/ACT Macrobid 100 MG Macrobid 100 MG No BID Macrobid 100 MG Montelukast Sodium 10 MG Montelukast Sodium 10 MG No Montelukas t Sodium 10 MG Coreg 6.25 MG Coreg 6.25 MG No 1{table t_with_ food} BID Coreg 6.25 MG Cholestyram ine 4 GM Cholestyram ine 4 GM No Cholestyra mine 4 GM Amiodarone HCl 200 MG Amiodarone HCl 200 MG No Amiodarone HCl 200 MG Cholestyram ine 4 GM Cholestyram ine 4 GM No 1{packe t_mixed _with_w ater_or _non-ca rbonate d_drink } BID Cholestyra mine 4 GM metFORMIN HCl ER 500 MG metFORMIN HCl ER 500 MG No metFORMIN HCl ER 500 MG Rosuvastati n Calcium 20 MG Rosuvastati n Calcium 20 MG No Rosuvastat in Calcium 20 MG Rosuvastati n Calcium 10 MG Rosuvastati n Calcium 10 MG No Rosuvastat in Calcium 10 MG Flovent Diskus 100 MCG/BLIST Flovent Diskus 100 MCG/BLIST No 1{puff} BID Flovent Diskus 100 MCG/BLIST HYDROcodone -Acetaminop hen 10-325 MG HYDROcodone -Acetaminop hen 10-325 MG No 1{table t_as_ne eded} QID HYDROcodon e-Acetamin ophen 10-325 MG Potassium Chloride Alexus ER 20 MEQ Potassium Chloride Alexus ER 20 MEQ No Potassium Chloride Alexus ER 20 MEQ tiZANidine HCl 2 MG tiZANidine HCl 2 MG No 1{table t_at_be dtime_a s_neede d} QD tiZANidine HCl 2 MG Losartan Potassium 50 MG Losartan Potassium 50 MG No 1{table t} QD Losartan Potassium 50 MG Omeprazole 40 MG Omeprazole 40 MG No Omeprazole 40 MG Ferrous Sulfate 325 (65 Fe) MG Ferrous Sulfate 325 (65 Fe) MG No 1{table t} QD Ferrous Sulfate 325 (65 Fe) MG Gabapentin 600 MG Gabapentin 600 MG No 1{table t} TID Gabapentin 600 MG Flovent Diskus 100 MCG/BLIST Flovent Diskus 100 MCG/BLIST No 1{puff} BID Flovent Diskus 100 MCG/BLIST Spironolact one 25 MG Spironolact one 25 MG No 1{table t} Spironolac tone 25 MG ProAir HFA 108 (90 Base) MCG/ACT ProAir HFA 108 (90 Base) MCG/ACT No 2{puffs _as_nee ded} QID ProAir HFA 108 (90 Base) MCG/ACT Eliquis 5 MG Eliquis 5 MG No 1{table t} BID Eliquis 5 MG Furosemide 80 MG Furosemide 80 MG No 1{table t} BID Furosemide 80 MG Spironolact one 50 MG Spironolact one 50 MG No 1{table t} QD Spironolac tone 50 MG Combivent Respimat 20-100 MCG/ACT Combivent Respimat 20-100 MCG/ACT No 1{puff} QID Combivent Respimat 20-100 MCG/ACT Macrobid 100 MG Macrobid 100 MG No BID Macrobid 100 MG Furosemide 40 MG Furosemide 40 MG No Furosemide 40 MG Montelukast Sodium 10 MG Montelukast Sodium 10 MG No Montelukas t Sodium 10 MG Coreg 6.25 MG Coreg 6.25 MG No 1{table t_with_ food} BID Coreg 6.25 MG Cholestyram ine 4 GM Cholestyram ine 4 GM No Cholestyra mine 4 GM Amiodarone HCl 200 MG Amiodarone HCl 200 MG No Amiodarone HCl 200 MG metFORMIN HCl ER 500 MG metFORMIN HCl ER 500 MG No metFORMIN HCl ER 500 MG Rosuvastati n Calcium 20 MG Rosuvastati n Calcium 20 MG No Rosuvastat in Calcium 20 MG Combivent Respimat 20-100 MCG/ACT Combivent Respimat 20-100 MCG/ACT No 1{puff} QID Combivent Respimat 20-100 MCG/ACT HYDROcodone -Acetaminop hen 10-325 MG HYDROcodone -Acetaminop hen 10-325 MG No 1{table t_as_ne eded} QID HYDROcodon e-Acetamin ophen 10-325 MG Potassium Chloride Alexus ER 20 MEQ Potassium Chloride Alexus ER 20 MEQ No Potassium Chloride Alexus ER 20 MEQ tiZANidine HCl 2 MG tiZANidine HCl 2 MG No 1{table t_at_be dtime_a s_neede d} QD tiZANidine HCl 2 MG Losartan Potassium 50 MG Losartan Potassium 50 MG No 1{table t} QD Losartan Potassium 50 MG Omeprazole 40 MG Omeprazole 40 MG No Omeprazole 40 MG Ferrous Sulfate 325 (65 Fe) MG Ferrous Sulfate 325 (65 Fe) MG No 1{table t} QD Ferrous Sulfate 325 (65 Fe) MG Gabapentin 600 MG Gabapentin 600 MG No 1{table t} TID Gabapentin 600 MG Flovent Diskus 100 MCG/BLIST Flovent Diskus 100 MCG/BLIST No 1{puff} BID Flovent Diskus 100 MCG/BLIST ProAir HFA 108 (90 Base) MCG/ACT ProAir HFA 108 (90 Base) MCG/ACT No 2{puffs _as_nee ded} QID ProAir HFA 108 (90 Base) MCG/ACT Simvastatin 20 MG Simvastatin 20 MG No Simvastati n 20 MG Eliquis 5 MG Eliquis 5 MG No 1{table t} BID Eliquis 5 MG Furosemide 80 MG Furosemide 80 MG No 1{table t} BID Furosemide 80 MG Spironolact one 50 MG Spironolact one 50 MG No 1{table t} QD Spironolac tone 50 MG Combivent Respimat 20-100 MCG/ACT Combivent Respimat 20-100 MCG/ACT No 1{puff} QID Combivent Respimat 20-100 MCG/ACT Macrobid 100 MG Macrobid 100 MG No BID Macrobid 100 MG Montelukast Sodium 10 MG Montelukast Sodium 10 MG No Montelukas t Sodium 10 MG Coreg 6.25 MG Coreg 6.25 MG No 1{table t_with_ food} BID Coreg 6.25 MG Omeprazole 40 MG Omeprazole 40 MG No 1{capsu le} QD Omeprazole 40 MG Cholestyram ine 4 GM Cholestyram ine 4 GM No Cholestyra mine 4 GM Amiodarone HCl 200 MG Amiodarone HCl 200 MG No Amiodarone HCl 200 MG metFORMIN HCl ER 500 MG metFORMIN HCl ER 500 MG No metFORMIN HCl ER 500 MG Rosuvastati n Calcium 20 MG Rosuvastati n Calcium 20 MG No Rosuvastat in Calcium 20 MG cloNIDine HCl 0.2 MG cloNIDine HCl 0.2 MG No 1{table t} cloNIDine HCl 0.2 MG HYDROcodone -Acetaminop hen 10-325 MG HYDROcodone -Acetaminop hen 10-325 MG No 1{table t_as_ne eded} QID HYDROcodon e-Acetamin ophen 10-325 MG Potassium Chloride Alexus ER 20 MEQ Potassium Chloride Alexus ER 20 MEQ No Potassium Chloride Alexus ER 20 MEQ tiZANidine HCl 2 MG tiZANidine HCl 2 MG No 1{table t_at_be dtime_a s_neede d} QD tiZANidine HCl 2 MG Losartan Potassium 50 MG Losartan Potassium 50 MG No 1{table t} QD Losartan Potassium 50 MG Omeprazole 40 MG Omeprazole 40 MG No Omeprazole 40 MG Ferrous Sulfate 325 (65 Fe) MG Ferrous Sulfate 325 (65 Fe) MG No 1{table t} QD Ferrous Sulfate 325 (65 Fe) MG Ferrous Sulfate 325 (65 Fe) MG Ferrous Sulfate 325 (65 Fe) MG No 1{table t} QD Ferrous Sulfate 325 (65 Fe) MG Gabapentin 600 MG Gabapentin 600 MG No 1{table t} TID Gabapentin 600 MG Flovent Diskus 100 MCG/BLIST Flovent Diskus 100 MCG/BLIST No 1{puff} BID Flovent Diskus 100 MCG/BLIST ProAir HFA 108 (90 Base) MCG/ACT ProAir HFA 108 (90 Base) MCG/ACT No 2{puffs _as_nee ded} QID ProAir HFA 108 (90 Base) MCG/ACT Eliquis 5 MG Eliquis 5 MG No 1{table t} BID Eliquis 5 MG Furosemide 80 MG Furosemide 80 MG No 1{table t} BID Furosemide 80 MG Spironolact one 50 MG Spironolact one 50 MG No 1{table t} QD Spironolac tone 50 MG Combivent Respimat 20-100 MCG/ACT Combivent Respimat 20-100 MCG/ACT No 1{puff} QID Combivent Respimat 20-100 MCG/ACT Neurontin 600 MG Neurontin 600 MG No 1{table t} QD Neurontin 600 MG Macrobid 100 MG Macrobid 100 MG No BID Macrobid 100 MG Montelukast Sodium 10 MG Montelukast Sodium 10 MG No Montelukas t Sodium 10 MG Coreg 6.25 MG Coreg 6.25 MG No 1{table t_with_ food} BID Coreg 6.25 MG Cholestyram ine 4 GM Cholestyram ine 4 GM No Cholestyra mine 4 GM Amiodarone HCl 200 MG Amiodarone HCl 200 MG No Amiodarone HCl 200 MG metFORMIN HCl ER 500 MG metFORMIN HCl ER 500 MG No metFORMIN HCl ER 500 MG Rosuvastati n Calcium 20 MG Rosuvastati n Calcium 20 MG No Rosuvastat in Calcium 20 MG HYDROcodone -Acetaminop hen 10-325 MG HYDROcodone -Acetaminop hen 10-325 MG No 1{table t_as_ne eded} QID HYDROcodon e-Acetamin ophen 10-325 MG Potassium Chloride Alexus ER 20 MEQ Potassium Chloride Alexus ER 20 MEQ No Potassium Chloride Alexus ER 20 MEQ tiZANidine HCl 2 MG tiZANidine HCl 2 MG No 1{table t_at_be dtime_a s_neede d} QD tiZANidine HCl 2 MG Losartan Potassium 50 MG Losartan Potassium 50 MG No 1{table t} QD Losartan Potassium 50 MG Omeprazole 40 MG Omeprazole 40 MG No Omeprazole 40 MG Ferrous Sulfate 325 (65 Fe) MG Ferrous Sulfate 325 (65 Fe) MG No 1{table t} QD Ferrous Sulfate 325 (65 Fe) MG Gabapentin 600 MG Gabapentin 600 MG No 1{table t} TID Gabapentin 600 MG Flovent Diskus 100 MCG/BLIST Flovent Diskus 100 MCG/BLIST No 1{puff} BID Flovent Diskus 100 MCG/BLIST ProAir HFA 108 (90 Base) MCG/ACT ProAir HFA 108 (90 Base) MCG/ACT No 2{puffs _as_nee ded} QID ProAir HFA 108 (90 Base) MCG/ACT Eliquis 5 MG Eliquis 5 MG No 1{table t} BID Eliquis 5 MG Furosemide 80 MG Furosemide 80 MG No 1{table t} BID Furosemide 80 MG Spironolact one 50 MG Spironolact one 50 MG No 1{table t} QD Spironolac tone 50 MG Combivent Respimat 20-100 MCG/ACT Combivent Respimat 20-100 MCG/ACT No 1{puff} QID Combivent Respimat 20-100 MCG/ACT Macrobid 100 MG Macrobid 100 MG No BID Macrobid 100 MG Montelukast Sodium 10 MG Montelukast Sodium 10 MG No Montelukas t Sodium 10 MG Coreg 6.25 MG Coreg 6.25 MG No 1{table t_with_ food} BID Coreg 6.25 MG Cholestyram ine 4 GM Cholestyram ine 4 GM No Cholestyra mine 4 GM Amiodarone HCl 200 MG Amiodarone HCl 200 MG No Amiodarone HCl 200 MG metFORMIN HCl ER 500 MG metFORMIN HCl ER 500 MG No metFORMIN HCl ER 500 MG Rosuvastati n Calcium 20 MG Rosuvastati n Calcium 20 MG No Rosuvastat in Calcium 20 MG Montelukast Sodium 10 MG Montelukast Sodium 10 MG No Montelukas t Sodium 10 MG HYDROcodone -Acetaminop hen 10-325 MG HYDROcodone -Acetaminop hen 10-325 MG No 1{table t_as_ne eded} QID HYDROcodon e-Acetamin ophen 10-325 MG Potassium Chloride Alexus ER 20 MEQ Potassium Chloride Alexus ER 20 MEQ No Potassium Chloride Alexus ER 20 MEQ tiZANidine HCl 2 MG tiZANidine HCl 2 MG No 1{table t_at_be dtime_a s_neede d} QD tiZANidine HCl 2 MG Losartan Potassium 50 MG Losartan Potassium 50 MG No 1{table t} QD Losartan Potassium 50 MG Omeprazole 40 MG Omeprazole 40 MG No Omeprazole 40 MG Cholestyram ine 4 GM Cholestyram ine 4 GM No 1{packe t_mixed _with_w ater_or _non-ca rbonate d_drink } BID Cholestyra mine 4 GM Ferrous Sulfate 325 (65 Fe) MG Ferrous Sulfate 325 (65 Fe) MG No 1{table t} QD Ferrous Sulfate 325 (65 Fe) MG Gabapentin 600 MG Gabapentin 600 MG No 1{table t} TID Gabapentin 600 MG Flovent Diskus 100 MCG/BLIST Flovent Diskus 100 MCG/BLIST No 1{puff} BID Flovent Diskus 100 MCG/BLIST ProAir HFA 108 (90 Base) MCG/ACT ProAir HFA 108 (90 Base) MCG/ACT No 2{puffs _as_nee ded} QID ProAir HFA 108 (90 Base) MCG/ACT Eliquis 5 MG Eliquis 5 MG No 1{table t} BID Eliquis 5 MG Furosemide 80 MG Furosemide 80 MG No 1{table t} BID Furosemide 80 MG Spironolact one 50 MG Spironolact one 50 MG No 1{table t} QD Spironolac tone 50 MG Combivent Respimat 20-100 MCG/ACT Combivent Respimat 20-100 MCG/ACT No 1{puff} QID Combivent Respimat 20-100 MCG/ACT Eliquis 5 MG Eliquis 5 MG No Eliquis 5 MG Macrobid 100 MG Macrobid 100 MG No BID Macrobid 100 MG Montelukast Sodium 10 MG Montelukast Sodium 10 MG No Montelukas t Sodium 10 MG Coreg 6.25 MG Coreg 6.25 MG No 1{table t_with_ food} BID Coreg 6.25 MG Cholestyram ine 4 GM Cholestyram ine 4 GM No Cholestyra mine 4 GM Amiodarone HCl 200 MG Amiodarone HCl 200 MG No Amiodarone HCl 200 MG metFORMIN HCl ER 500 MG metFORMIN HCl ER 500 MG No metFORMIN HCl ER 500 MG Rosuvastati n Calcium 20 MG Rosuvastati n Calcium 20 MG No Rosuvastat in Calcium 20 MG Furosemide 40 MG Furosemide 40 MG No Furosemide 40 MG cloNIDine HCl 0.2 MG cloNIDine HCl 0.2 MG No 1{table t} cloNIDine HCl 0.2 MG Losartan Potassium 50 MG Losartan Potassium 50 MG No 1{table t} QD Losartan Potassium 50 MG Macrobid 100 MG Macrobid 100 MG No BID Macrobid 100 MG Furosemide 80 MG Furosemide 80 MG No 1{table t} BID Furosemide 80 MG Potassium Chloride Alexus ER 20 MEQ Potassium Chloride Alexus ER 20 MEQ No Potassium Chloride Alexus ER 20 MEQ Rosuvastati n Calcium 20 MG Rosuvastati n Calcium 20 MG No Rosuvastat in Calcium 20 MG tiZANidine HCl 2 MG tiZANidine HCl 2 MG No 1{table t_at_be dtime_a s_neede d} QD tiZANidine HCl 2 MG Ferrous Sulfate 325 (65 Fe) MG Ferrous Sulfate 325 (65 Fe) MG No 1{table t} QD Ferrous Sulfate 325 (65 Fe) MG Omeprazole 40 MG Omeprazole 40 MG No Omeprazole 40 MG Combivent Respimat 20-100 MCG/ACT Combivent Respimat 20-100 MCG/ACT No 1{puff} QID Combivent Respimat 20-100 MCG/ACT Gabapentin 600 MG Gabapentin 600 MG No 1{table t} TID Gabapentin 600 MG Cholestyram ine 4 GM Cholestyram ine 4 GM No Cholestyra mine 4 GM Ferrous Sulfate 325 (65 Fe) MG Ferrous Sulfate 325 (65 Fe) MG No 1{table t} QD Ferrous Sulfate 325 (65 Fe) MG Coreg 6.25 MG Coreg 6.25 MG No 1{table t_with_ food} BID Coreg 6.25 MG metFORMIN HCl ER 500 MG metFORMIN HCl ER 500 MG No metFORMIN HCl ER 500 MG Amiodarone HCl 200 MG Amiodarone HCl 200 MG No Amiodarone HCl 200 MG Rosuvastati n Calcium 10 MG Rosuvastati n Calcium 10 MG No Rosuvastat in Calcium 10 MG HYDROcodone -Acetaminop hen 10-325 MG HYDROcodone -Acetaminop hen 10-325 MG No 1{table t_as_ne eded} QID HYDROcodon e-Acetamin ophen 10-325 MG Flovent Diskus 100 MCG/BLIST Flovent Diskus 100 MCG/BLIST No 1{puff} BID Flovent Diskus 100 MCG/BLIST ProAir HFA 108 (90 Base) MCG/ACT ProAir HFA 108 (90 Base) MCG/ACT No 2{puffs _as_nee ded} QID ProAir HFA 108 (90 Base) MCG/ACT Montelukast Sodium 10 MG Montelukast Sodium 10 MG No Montelukas t Sodium 10 MG Spironolact one 50 MG Spironolact one 50 MG No 1{table t} QD Spironolac tone 50 MG Eliquis 5 MG Eliquis 5 MG No 1{table t} BID Eliquis 5 MG Combivent Respimat 20-100 MCG/ACT Combivent Respimat 20-100 MCG/ACT No 1{puff} QID Combivent Respimat 20-100 MCG/ACT Flovent HFA 110 MCG/ACT Flovent HFA 110 MCG/ACT No 1{puff} BID Flovent HFA 110 MCG/ACT Losartan Potassium 50 MG Losartan Potassium 50 MG No 1{table t} QD Losartan Potassium 50 MG Macrobid 100 MG Macrobid 100 MG No BID Macrobid 100 MG Furosemide 80 MG Furosemide 80 MG No 1{table t} BID Furosemide 80 MG Potassium Chloride Alexus ER 20 MEQ Potassium Chloride Alexus ER 20 MEQ No Potassium Chloride Alexus ER 20 MEQ Rosuvastati n Calcium 20 MG Rosuvastati n Calcium 20 MG No Rosuvastat in Calcium 20 MG Neurontin 600 MG Neurontin 600 MG No 1{table t} QD Neurontin 600 MG tiZANidine HCl 2 MG tiZANidine HCl 2 MG No 1{table t_at_be dtime_a s_neede d} QD tiZANidine HCl 2 MG Omeprazole 40 MG Omeprazole 40 MG No Omeprazole 40 MG Combivent Respimat 20-100 MCG/ACT Combivent Respimat 20-100 MCG/ACT No 1{puff} QID Combivent Respimat 20-100 MCG/ACT Gabapentin 600 MG Gabapentin 600 MG No 1{table t} TID Gabapentin 600 MG Cholestyram ine 4 GM Cholestyram ine 4 GM No Cholestyra mine 4 GM Ferrous Sulfate 325 (65 Fe) MG Ferrous Sulfate 325 (65 Fe) MG No 1{table t} QD Ferrous Sulfate 325 (65 Fe) MG Coreg 6.25 MG Coreg 6.25 MG No 1{table t_with_ food} BID Coreg 6.25 MG metFORMIN HCl ER 500 MG metFORMIN HCl ER 500 MG No metFORMIN HCl ER 500 MG Spironolact one 25 MG Spironolact one 25 MG No 1{table t} Spironolac tone 25 MG Amiodarone HCl 200 MG Amiodarone HCl 200 MG No Amiodarone HCl 200 MG HYDROcodone -Acetaminop hen 10-325 MG HYDROcodone -Acetaminop hen 10-325 MG No 1{table t_as_ne eded} QID HYDROcodon e-Acetamin ophen 10-325 MG Flovent Diskus 100 MCG/BLIST Flovent Diskus 100 MCG/BLIST No 1{puff} BID Flovent Diskus 100 MCG/BLIST ProAir HFA 108 (90 Base) MCG/ACT ProAir HFA 108 (90 Base) MCG/ACT No 2{puffs _as_nee ded} QID ProAir HFA 108 (90 Base) MCG/ACT Montelukast Sodium 10 MG Montelukast Sodium 10 MG No Montelukas t Sodium 10 MG Spironolact one 50 MG Spironolact one 50 MG No 1{table t} QD Spironolac tone 50 MG Eliquis 5 MG Eliquis 5 MG No 1{table t} BID Eliquis 5 MG Simvastatin 20 MG Simvastatin 20 MG No Simvastati n 20 MG Aspir-81 81 MG Aspir-81 81 MG No 1{table t} QD Aspir-81 81 MG ProAir HFA 108 (90 Base) MCG/ACT ProAir HFA 108 (90 Base) MCG/ACT No 2{puffs _as_nee ded} QID ProAir HFA 108 (90 Base) MCG/ACT Rosuvastati n Calcium 10 MG Rosuvastati n Calcium 10 MG No 1{table t} Rosuvastat in Calcium 10 MG Coreg 6.25 MG Coreg 6.25 MG No BID Coreg 6.25 MG Albuterol Sulfate (5 MG/ML) 0.5% Albuterol Sulfate (5 MG/ML) 0.5% No 1{ml_as _needed } QID Albuterol Sulfate (5 MG/ML) 0.5% Flovent Diskus 100 MCG/BLIST Flovent Diskus 100 MCG/BLIST No 1{puff} BID Flovent Diskus 100 MCG/BLIST Omeprazole 40 MG Omeprazole 40 MG No 1{capsu le} QD Omeprazole 40 MG Montelukast Sodium 10 MG Montelukast Sodium 10 MG No Montelukas t Sodium 10 MG Cholestyram ine 4 GM Cholestyram ine 4 GM No 1{packe t_mixed _with_w ater_or _non-ca rbonate d_drink } BID Cholestyra mine 4 GM Eliquis 5 MG Eliquis 5 MG No Eliquis 5 MG Furosemide 40 MG Furosemide 40 MG No Furosemide 40 MG cloNIDine HCl 0.2 MG cloNIDine HCl 0.2 MG No 1{table t} cloNIDine HCl 0.2 MG Ferrous Sulfate 325 (65 Fe) MG Ferrous Sulfate 325 (65 Fe) MG No 1{table t} QD Ferrous Sulfate 325 (65 Fe) MG Rosuvastati n Calcium 10 MG Rosuvastati n Calcium 10 MG No Rosuvastat in Calcium 10 MG Combivent Respimat 20-100 MCG/ACT Combivent Respimat 20-100 MCG/ACT No 1{puff} QID Combivent Respimat 20-100 MCG/ACT Flovent HFA 110 MCG/ACT Flovent HFA 110 MCG/ACT No 1{puff} BID Flovent HFA 110 MCG/ACT Neurontin 600 MG Neurontin 600 MG No 1{table t} QD Neurontin 600 MG Spironolact one 25 MG Spironolact one 25 MG No 1{table t} Spironolac tone 25 MG Simvastatin 20 MG Simvastatin 20 MG No Simvastati n 20 MG Aspir-81 81 MG Aspir-81 81 MG No 1{table t} QD Aspir-81 81 MG ProAir HFA 108 (90 Base) MCG/ACT ProAir HFA 108 (90 Base) MCG/ACT No 2{puffs _as_nee ded} QID ProAir HFA 108 (90 Base) MCG/ACT Rosuvastati n Calcium 10 MG Rosuvastati n Calcium 10 MG No 1{table t} Rosuvastat in Calcium 10 MG Coreg 6.25 MG Coreg 6.25 MG No BID Coreg 6.25 MG Albuterol Sulfate (5 MG/ML) 0.5% Albuterol Sulfate (5 MG/ML) 0.5% No 1{ml_as _needed } QID Albuterol Sulfate (5 MG/ML) 0.5% Flovent Diskus 100 MCG/BLIST Flovent Diskus 100 MCG/BLIST No 1{puff} BID Flovent Diskus 100 MCG/BLIST Omeprazole 40 MG Omeprazole 40 MG No 1{capsu le} QD Omeprazole 40 MG Amiodarone HCl 200 MG Amiodarone HCl 200 MG No 1{table t} QD Amiodarone HCl 200 MG Flovent Diskus 100 MCG/BLIST Flovent Diskus 100 MCG/BLIST No 1{puff} BID Flovent Diskus 100 MCG/BLIST Coreg 12.5 MG Coreg 12.5 MG No 1{table t_with_ food} Coreg 12.5 MG Montelukast Sodium 10 MG Montelukast Sodium 10 MG No Montelukas t Sodium 10 MG Eliquis 5 MG Eliquis 5 MG No Eliquis 5 MG Simvastatin 20 MG Simvastatin 20 MG No Simvastati n 20 MG Rosuvastati n Calcium 10 MG Rosuvastati n Calcium 10 MG No Rosuvastat in Calcium 10 MG Neurontin 600 MG Neurontin 600 MG No 1{table t} QD Neurontin 600 MG Combivent Respimat 20-100 MCG/ACT Combivent Respimat 20-100 MCG/ACT No 1{puff} QID Combivent Respimat 20-100 MCG/ACT Cholestyram ine 4 GM Cholestyram ine 4 GM No 1{packe t_mixed _with_w ater_or _non-ca rbonate d_drink } BID Cholestyra mine 4 GM Omeprazole 40 MG Omeprazole 40 MG No 1{capsu le} QD Omeprazole 40 MG cloNIDine HCl 0.2 MG cloNIDine HCl 0.2 MG No 1{table t} cloNIDine HCl 0.2 MG Furosemide 40 MG Furosemide 40 MG No Furosemide 40 MG Flovent HFA 110 MCG/ACT Flovent HFA 110 MCG/ACT No 1{puff} BID Flovent HFA 110 MCG/ACT ProAir HFA 108 (90 Base) MCG/ACT ProAir HFA 108 (90 Base) MCG/ACT No 2{puffs _as_nee ded} QID ProAir HFA 108 (90 Base) MCG/ACT Aspir-81 81 MG Aspir-81 81 MG No 1{table t} QD Aspir-81 81 MG Albuterol Sulfate (5 MG/ML) 0.5% Albuterol Sulfate (5 MG/ML) 0.5% No 1{ml_as _needed } QID Albuterol Sulfate (5 MG/ML) 0.5% Spironolact one 25 MG Spironolact one 25 MG No 1{table t} Spironolac tone 25 MG Rosuvastati n Calcium 10 MG Rosuvastati n Calcium 10 MG No 1{table t} Rosuvastat in Calcium 10 MG Ferrous Sulfate 325 (65 Fe) MG Ferrous Sulfate 325 (65 Fe) MG No 1{table t} QD Ferrous Sulfate 325 (65 Fe) MG Neurontin 600 MG Neurontin 600 MG No 1{table t} QD Neurontin 600 MG Aspir-81 81 MG Aspir-81 81 MG No 1{table t} QD Aspir-81 81 MG cloNIDine HCl 0.2 MG cloNIDine HCl 0.2 MG No 1{table t} cloNIDine HCl 0.2 MG Spironolact one 50 MG Spironolact one 50 MG No 1{table t} QD Spironolac tone 50 MG Coreg 6.25 MG Coreg 6.25 MG No BID Coreg 6.25 MG Combivent Respimat 20-100 MCG/ACT Combivent Respimat 20-100 MCG/ACT No 1{puff} QID Combivent Respimat 20-100 MCG/ACT Eliquis 5 MG Eliquis 5 MG No Eliquis 5 MG Furosemide 40 MG Furosemide 40 MG No Furosemide 40 MG Amiodarone HCl 200 MG Amiodarone HCl 200 MG No 1{table t} QD Amiodarone HCl 200 MG ProAir HFA 108 (90 Base) MCG/ACT ProAir HFA 108 (90 Base) MCG/ACT No 2{puffs _as_nee ded} QID ProAir HFA 108 (90 Base) MCG/ACT HYDROcodone -Acetaminop hen 10-325 MG HYDROcodone -Acetaminop hen 10-325 MG No 1{table t_as_ne eded} QID HYDROcodon e-Acetamin ophen 10-325 MG tiZANidine HCl 2 MG tiZANidine HCl 2 MG No 1{table t_at_be dtime_a s_neede d} QD tiZANidine HCl 2 MG Rosuvastati n Calcium 10 MG Rosuvastati n Calcium 10 MG No Rosuvastat in Calcium 10 MG Omeprazole 40 MG Omeprazole 40 MG No 1{capsu le} QD Omeprazole 40 MG Rosuvastati n Calcium 10 MG Rosuvastati n Calcium 10 MG No 1{table t} Rosuvastat in Calcium 10 MG Ferrous Sulfate 325 (65 Fe) MG Ferrous Sulfate 325 (65 Fe) MG No 1{table t} QD Ferrous Sulfate 325 (65 Fe) MG Cholestyram ine 4 GM Cholestyram ine 4 GM No 1{packe t_mixed _with_w ater_or _non-ca rbonate d_drink } BID Cholestyra mine 4 GM Flovent Diskus 100 MCG/BLIST Flovent Diskus 100 MCG/BLIST No 1{puff} BID Flovent Diskus 100 MCG/BLIST Montelukast Sodium 10 MG Montelukast Sodium 10 MG No Montelukas t Sodium 10 MG Cholestyram ine 4 GM Cholestyram ine 4 GM No Cholestyra mine 4 GM Albuterol Sulfate (5 MG/ML) 0.5% Albuterol Sulfate (5 MG/ML) 0.5% No 1{ml_as _needed } QID Albuterol Sulfate (5 MG/ML) 0.5% Neurontin 600 MG Neurontin 600 MG No 1{table t} QD Neurontin 600 MG Aspir-81 81 MG Aspir-81 81 MG No 1{table t} QD Aspir-81 81 MG cloNIDine HCl 0.2 MG cloNIDine HCl 0.2 MG No 1{table t} cloNIDine HCl 0.2 MG Spironolact one 50 MG Spironolact one 50 MG No 1{table t} QD Spironolac tone 50 MG Coreg 6.25 MG Coreg 6.25 MG No BID Coreg 6.25 MG Combivent Respimat 20-100 MCG/ACT Combivent Respimat 20-100 MCG/ACT No 1{puff} QID Combivent Respimat 20-100 MCG/ACT Eliquis 5 MG Eliquis 5 MG No Eliquis 5 MG Furosemide 40 MG Furosemide 40 MG No Furosemide 40 MG Amiodarone HCl 200 MG Amiodarone HCl 200 MG No 1{table t} QD Amiodarone HCl 200 MG ProAir HFA 108 (90 Base) MCG/ACT ProAir HFA 108 (90 Base) MCG/ACT No 2{puffs _as_nee ded} QID ProAir HFA 108 (90 Base) MCG/ACT HYDROcodone -Acetaminop hen 10-325 MG HYDROcodone -Acetaminop hen 10-325 MG No 1{table t_as_ne eded} QID HYDROcodon e-Acetamin ophen 10-325 MG tiZANidine HCl 2 MG tiZANidine HCl 2 MG No 1{table t_at_be dtime_a s_neede d} QD tiZANidine HCl 2 MG Rosuvastati n Calcium 10 MG Rosuvastati n Calcium 10 MG No Rosuvastat in Calcium 10 MG Omeprazole 40 MG Omeprazole 40 MG No 1{capsu le} QD Omeprazole 40 MG Rosuvastati n Calcium 10 MG Rosuvastati n Calcium 10 MG No 1{table t} Rosuvastat in Calcium 10 MG Ferrous Sulfate 325 (65 Fe) MG Ferrous Sulfate 325 (65 Fe) MG No 1{table t} QD Ferrous Sulfate 325 (65 Fe) MG Cholestyram ine 4 GM Cholestyram ine 4 GM No 1{packe t_mixed _with_w ater_or _non-ca rbonate d_drink } BID Cholestyra mine 4 GM Flovent Diskus 100 MCG/BLIST Flovent Diskus 100 MCG/BLIST No 1{puff} BID Flovent Diskus 100 MCG/BLIST Montelukast Sodium 10 MG Montelukast Sodium 10 MG No Montelukas t Sodium 10 MG Cholestyram ine 4 GM Cholestyram ine 4 GM No Cholestyra mine 4 GM Albuterol Sulfate (5 MG/ML) 0.5% Albuterol Sulfate (5 MG/ML) 0.5% No 1{ml_as _needed } QID Albuterol Sulfate (5 MG/ML) 0.5% tiZANidine HCl 2 MG tiZANidine HCl 2 MG No 1{table t_at_be dtime_a s_neede d} QD tiZANidine HCl 2 MG Cholestyram ine 4 GM Cholestyram ine 4 GM No 1{packe t_mixed _with_w ater_or _non-ca rbonate d_drink } BID Cholestyra mine 4 GM Spironolact one 50 MG Spironolact one 50 MG No 1{table t} QD Spironolac tone 50 MG Ferrous Sulfate 325 (65 Fe) MG Ferrous Sulfate 325 (65 Fe) MG No 1{table t} QD Ferrous Sulfate 325 (65 Fe) MG Aspir-81 81 MG Aspir-81 81 MG No 1{table t} QD Aspir-81 81 MG cloNIDine HCl 0.2 MG cloNIDine HCl 0.2 MG No 1{table t} cloNIDine HCl 0.2 MG Cholestyram ine 4 GM Cholestyram ine 4 GM No Cholestyra mine 4 GM Albuterol Sulfate (5 MG/ML) 0.5% Albuterol Sulfate (5 MG/ML) 0.5% No 1{ml_as _needed } QID Albuterol Sulfate (5 MG/ML) 0.5% Flovent Diskus 100 MCG/BLIST Flovent Diskus 100 MCG/BLIST No 1{puff} BID Flovent Diskus 100 MCG/BLIST HYDROcodone -Acetaminop hen 10-325 MG HYDROcodone -Acetaminop hen 10-325 MG No 1{table t_as_ne eded} QID HYDROcodon e-Acetamin ophen 10-325 MG Combivent Respimat 20-100 MCG/ACT Combivent Respimat 20-100 MCG/ACT No 1{puff} QID Combivent Respimat 20-100 MCG/ACT Amiodarone HCl 200 MG Amiodarone HCl 200 MG No 1{table t} QD Amiodarone HCl 200 MG Rosuvastati n Calcium 10 MG Rosuvastati n Calcium 10 MG No 1{table t} Rosuvastat in Calcium 10 MG Furosemide 40 MG Furosemide 40 MG No Furosemide 40 MG ProAir HFA 108 (90 Base) MCG/ACT ProAir HFA 108 (90 Base) MCG/ACT No 2{puffs _as_nee ded} QID ProAir HFA 108 (90 Base) MCG/ACT Neurontin 600 MG Neurontin 600 MG No 1{table t} QD Neurontin 600 MG Coreg 6.25 MG Coreg 6.25 MG No BID Coreg 6.25 MG Montelukast Sodium 10 MG Montelukast Sodium 10 MG No Montelukas t Sodium 10 MG Omeprazole 40 MG Omeprazole 40 MG No 1{capsu le} QD Omeprazole 40 MG Eliquis 5 MG Eliquis 5 MG No Eliquis 5 MG Rosuvastati n Calcium 10 MG Rosuvastati n Calcium 10 MG No Rosuvastat in Calcium 10 MG tiZANidine HCl 2 MG tiZANidine HCl 2 MG No 1{table t_at_be dtime_a s_neede d} QD tiZANidine HCl 2 MG Cholestyram ine 4 GM Cholestyram ine 4 GM No 1{packe t_mixed _with_w ater_or _non-ca rbonate d_drink } BID Cholestyra mine 4 GM Spironolact one 50 MG Spironolact one 50 MG No 1{table t} QD Spironolac tone 50 MG Ferrous Sulfate 325 (65 Fe) MG Ferrous Sulfate 325 (65 Fe) MG No 1{table t} QD Ferrous Sulfate 325 (65 Fe) MG Aspir-81 81 MG Aspir-81 81 MG No 1{table t} QD Aspir-81 81 MG cloNIDine HCl 0.2 MG cloNIDine HCl 0.2 MG No 1{table t} cloNIDine HCl 0.2 MG Cholestyram ine 4 GM Cholestyram ine 4 GM No Cholestyra mine 4 GM Albuterol Sulfate (5 MG/ML) 0.5% Albuterol Sulfate (5 MG/ML) 0.5% No 1{ml_as _needed } QID Albuterol Sulfate (5 MG/ML) 0.5% Flovent Diskus 100 MCG/BLIST Flovent Diskus 100 MCG/BLIST No 1{puff} BID Flovent Diskus 100 MCG/BLIST HYDROcodone -Acetaminop hen 10-325 MG HYDROcodone -Acetaminop hen 10-325 MG No 1{table t_as_ne eded} QID HYDROcodon e-Acetamin ophen 10-325 MG Combivent Respimat 20-100 MCG/ACT Combivent Respimat 20-100 MCG/ACT No 1{puff} QID Combivent Respimat 20-100 MCG/ACT Amiodarone HCl 200 MG Amiodarone HCl 200 MG No 1{table t} QD Amiodarone HCl 200 MG Rosuvastati n Calcium 10 MG Rosuvastati n Calcium 10 MG No 1{table t} Rosuvastat in Calcium 10 MG Furosemide 40 MG Furosemide 40 MG No Furosemide 40 MG ProAir HFA 108 (90 Base) MCG/ACT ProAir HFA 108 (90 Base) MCG/ACT No 2{puffs _as_nee ded} QID ProAir HFA 108 (90 Base) MCG/ACT Neurontin 600 MG Neurontin 600 MG No 1{table t} QD Neurontin 600 MG Coreg 6.25 MG Coreg 6.25 MG No BID Coreg 6.25 MG Montelukast Sodium 10 MG Montelukast Sodium 10 MG No Montelukas t Sodium 10 MG Omeprazole 40 MG Omeprazole 40 MG No 1{capsu le} QD Omeprazole 40 MG Eliquis 5 MG Eliquis 5 MG No Eliquis 5 MG Rosuvastati n Calcium 10 MG Rosuvastati n Calcium 10 MG No Rosuvastat in Calcium 10 MG Omeprazole 40 MG Omeprazole 40 MG No 1{capsu le} QD Omeprazole 40 MG tiZANidine HCl 2 MG tiZANidine HCl 2 MG No 1{table t_at_be dtime_a s_neede d} QD tiZANidine HCl 2 MG Rosuvastati n Calcium 10 MG Rosuvastati n Calcium 10 MG No Rosuvastat in Calcium 10 MG Rosuvastati n Calcium 10 MG Rosuvastati n Calcium 10 MG No 1{table t} Rosuvastat in Calcium 10 MG Cholestyram ine 4 GM Cholestyram ine 4 GM No Cholestyra mine 4 GM Albuterol Sulfate (5 MG/ML) 0.5% Albuterol Sulfate (5 MG/ML) 0.5% No 1{ml_as _needed } QID Albuterol Sulfate (5 MG/ML) 0.5% HYDROcodone -Acetaminop hen 10-325 MG HYDROcodone -Acetaminop hen 10-325 MG No 1{table t_as_ne eded} QID HYDROcodon e-Acetamin ophen 10-325 MG Amiodarone HCl 200 MG Amiodarone HCl 200 MG No 1{table t} QD Amiodarone HCl 200 MG Furosemide 80 MG Furosemide 80 MG No 1{table t} BID Furosemide 80 MG Aspir-81 81 MG Aspir-81 81 MG No 1{table t} QD Aspir-81 81 MG Ferrous Sulfate 325 (65 Fe) MG Ferrous Sulfate 325 (65 Fe) MG No 1{table t} QD Ferrous Sulfate 325 (65 Fe) MG Neurontin 600 MG Neurontin 600 MG No 1{table t} QD Neurontin 600 MG Cholestyram ine 4 GM Cholestyram ine 4 GM No 1{packe t_mixed _with_w ater_or _non-ca rbonate d_drink } BID Cholestyra mine 4 GM cloNIDine HCl 0.2 MG cloNIDine HCl 0.2 MG No 1{table t} cloNIDine HCl 0.2 MG ProAir HFA 108 (90 Base) MCG/ACT ProAir HFA 108 (90 Base) MCG/ACT No 2{puffs _as_nee ded} QID ProAir HFA 108 (90 Base) MCG/ACT Flovent Diskus 100 MCG/BLIST Flovent Diskus 100 MCG/BLIST No 1{puff} BID Flovent Diskus 100 MCG/BLIST Montelukast Sodium 10 MG Montelukast Sodium 10 MG No Montelukas t Sodium 10 MG Eliquis 5 MG Eliquis 5 MG No Eliquis 5 MG Spironolact one 50 MG Spironolact one 50 MG No 1{table t} QD Spironolac tone 50 MG Combivent Respimat 20-100 MCG/ACT Combivent Respimat 20-100 MCG/ACT No 1{puff} QID Combivent Respimat 20-100 MCG/ACT Coreg 6.25 MG Coreg 6.25 MG No BID Coreg 6.25 MG Combivent Respimat 20-100 MCG/ACT Combivent Respimat 20-100 MCG/ACT No 1{puff} QID Combivent Respimat 20-100 MCG/ACT ProAir HFA 108 (90 Base) MCG/ACT ProAir HFA 108 (90 Base) MCG/ACT No 2{puffs _as_nee ded} QID ProAir HFA 108 (90 Base) MCG/ACT Furosemide 80 MG Furosemide 80 MG No 1{table t} BID Furosemide 80 MG Neurontin 600 MG Neurontin 600 MG No 1{table t} QD Neurontin 600 MG Montelukast Sodium 10 MG Montelukast Sodium 10 MG No Montelukas t Sodium 10 MG Coreg 6.25 MG Coreg 6.25 MG No BID Coreg 6.25 MG Cholestyram ine 4 GM Cholestyram ine 4 GM No Cholestyra mine 4 GM Ferrous Sulfate 325 (65 Fe) MG Ferrous Sulfate 325 (65 Fe) MG No 1{table t} QD Ferrous Sulfate 325 (65 Fe) MG Cholestyram ine 4 GM Cholestyram ine 4 GM No 1{packe t_mixed _with_w ater_or _non-ca rbonate d_drink } BID Cholestyra mine 4 GM Spironolact one 50 MG Spironolact one 50 MG No 1{table t} QD Spironolac tone 50 MG cloNIDine HCl 0.2 MG cloNIDine HCl 0.2 MG No 1{table t} cloNIDine HCl 0.2 MG Omeprazole 40 MG Omeprazole 40 MG No 1{capsu le} QD Omeprazole 40 MG Rosuvastati n Calcium 10 MG Rosuvastati n Calcium 10 MG No Rosuvastat in Calcium 10 MG HYDROcodone -Acetaminop hen 10-325 MG HYDROcodone -Acetaminop hen 10-325 MG No 1{table t_as_ne eded} QID HYDROcodon e-Acetamin ophen 10-325 MG Albuterol Sulfate (5 MG/ML) 0.5% Albuterol Sulfate (5 MG/ML) 0.5% No 1{ml_as _needed } QID Albuterol Sulfate (5 MG/ML) 0.5% Eliquis 5 MG Eliquis 5 MG No Eliquis 5 MG Rosuvastati n Calcium 10 MG Rosuvastati n Calcium 10 MG No 1{table t} Rosuvastat in Calcium 10 MG Flovent Diskus 100 MCG/BLIST Flovent Diskus 100 MCG/BLIST No 1{puff} BID Flovent Diskus 100 MCG/BLIST Aspir-81 81 MG Aspir-81 81 MG No 1{table t} QD Aspir-81 81 MG Amiodarone HCl 200 MG Amiodarone HCl 200 MG No 1{table t} QD Amiodarone HCl 200 MG tiZANidine HCl 2 MG tiZANidine HCl 2 MG No 1{table t_at_be dtime_a s_neede d} QD tiZANidine HCl 2 MG Coreg 6.25 MG Coreg 6.25 MG No BID Coreg 6.25 MG Combivent Respimat 20-100 MCG/ACT Combivent Respimat 20-100 MCG/ACT No 1{puff} QID Combivent Respimat 20-100 MCG/ACT Omeprazole 40 MG Omeprazole 40 MG No 1{capsu le} QD Omeprazole 40 MG Neurontin 600 MG Neurontin 600 MG No 1{table t} QD Neurontin 600 MG Rosuvastati n Calcium 10 MG Rosuvastati n Calcium 10 MG No Rosuvastat in Calcium 10 MG Spironolact one 50 MG Spironolact one 50 MG No 1{table t} QD Spironolac tone 50 MG Ferrous Sulfate 325 (65 Fe) MG Ferrous Sulfate 325 (65 Fe) MG No 1{table t} QD Ferrous Sulfate 325 (65 Fe) MG Aspir-81 81 MG Aspir-81 81 MG No 1{table t} QD Aspir-81 81 MG Rosuvastati n Calcium 10 MG Rosuvastati n Calcium 10 MG No 1{table t} Rosuvastat in Calcium 10 MG cloNIDine HCl 0.2 MG cloNIDine HCl 0.2 MG No 1{table t} cloNIDine HCl 0.2 MG Amiodarone HCl 200 MG Amiodarone HCl 200 MG No 1{table t} QD Amiodarone HCl 200 MG tiZANidine HCl 2 MG tiZANidine HCl 2 MG No 1{table t_at_be dtime_a s_neede d} QD tiZANidine HCl 2 MG Furosemide 40 MG Furosemide 40 MG No Furosemide 40 MG Montelukast Sodium 10 MG Montelukast Sodium 10 MG No Montelukas t Sodium 10 MG HYDROcodone -Acetaminop hen 10-325 MG HYDROcodone -Acetaminop hen 10-325 MG No 1{table t_as_ne eded} QID HYDROcodon e-Acetamin ophen 10-325 MG Albuterol Sulfate (5 MG/ML) 0.5% Albuterol Sulfate (5 MG/ML) 0.5% No 1{ml_as _needed } QID Albuterol Sulfate (5 MG/ML) 0.5% Flovent Diskus 100 MCG/BLIST Flovent Diskus 100 MCG/BLIST No 1{puff} BID Flovent Diskus 100 MCG/BLIST Cholestyram ine 4 GM Cholestyram ine 4 GM No Cholestyra mine 4 GM Eliquis 5 MG Eliquis 5 MG No Eliquis 5 MG ProAir HFA 108 (90 Base) MCG/ACT ProAir HFA 108 (90 Base) MCG/ACT No 2{puffs _as_nee ded} QID ProAir HFA 108 (90 Base) MCG/ACT Eliquis 5 MG Eliquis 5 MG No Eliquis 5 MG Flovent Diskus 100 MCG/BLIST Flovent Diskus 100 MCG/BLIST No 1{puff} BID Flovent Diskus 100 MCG/BLIST HYDROcodone -Acetaminop hen 10-325 MG HYDROcodone -Acetaminop hen 10-325 MG No 1{table t_as_ne eded} QID HYDROcodon e-Acetamin ophen 10-325 MG Aspir-81 81 MG Aspir-81 81 MG No 1{table t} QD Aspir-81 81 MG Combivent Respimat 20-100 MCG/ACT Combivent Respimat 20-100 MCG/ACT No 1{puff} QID Combivent Respimat 20-100 MCG/ACT Montelukast Sodium 10 MG Montelukast Sodium 10 MG No Montelukas t Sodium 10 MG Ferrous Sulfate 325 (65 Fe) MG Ferrous Sulfate 325 (65 Fe) MG No 1{table t} QD Ferrous Sulfate 325 (65 Fe) MG Furosemide 40 MG Furosemide 40 MG No Furosemide 40 MG tiZANidine HCl 2 MG tiZANidine HCl 2 MG No 1{table t_at_be dtime_a s_neede d} QD tiZANidine HCl 2 MG ProAir HFA 108 (90 Base) MCG/ACT ProAir HFA 108 (90 Base) MCG/ACT No 2{puffs _as_nee ded} QID ProAir HFA 108 (90 Base) MCG/ACT Neurontin 600 MG Neurontin 600 MG No 1{table t} QD Neurontin 600 MG cloNIDine HCl 0.2 MG cloNIDine HCl 0.2 MG No 1{table t} cloNIDine HCl 0.2 MG Potassium Chloride Alexus ER 20 MEQ Potassium Chloride Alexus ER 20 MEQ No Potassium Chloride Alexus ER 20 MEQ Albuterol Sulfate (5 MG/ML) 0.5% Albuterol Sulfate (5 MG/ML) 0.5% No 1{ml_as _needed } QID Albuterol Sulfate (5 MG/ML) 0.5% Amiodarone HCl 200 MG Amiodarone HCl 200 MG No 1{table t} QD Amiodarone HCl 200 MG Rosuvastati n Calcium 10 MG Rosuvastati n Calcium 10 MG No 1{table t} Rosuvastat in Calcium 10 MG Spironolact one 50 MG Spironolact one 50 MG No 1{table t} QD Spironolac tone 50 MG Rosuvastati n Calcium 10 MG Rosuvastati n Calcium 10 MG No Rosuvastat in Calcium 10 MG Cholestyram ine 4 GM Cholestyram ine 4 GM No Cholestyra mine 4 GM Omeprazole 40 MG Omeprazole 40 MG No 1{capsu le} QD Omeprazole 40 MG Coreg 6.25 MG Coreg 6.25 MG No BID Coreg 6.25 MG Eliquis 5 MG Eliquis 5 MG No Eliquis 5 MG Flovent Diskus 100 MCG/BLIST Flovent Diskus 100 MCG/BLIST No 1{puff} BID Flovent Diskus 100 MCG/BLIST HYDROcodone -Acetaminop hen 10-325 MG HYDROcodone -Acetaminop hen 10-325 MG No 1{table t_as_ne eded} QID HYDROcodon e-Acetamin ophen 10-325 MG Aspir-81 81 MG Aspir-81 81 MG No 1{table t} QD Aspir-81 81 MG Combivent Respimat 20-100 MCG/ACT Combivent Respimat 20-100 MCG/ACT No 1{puff} QID Combivent Respimat 20-100 MCG/ACT Montelukast Sodium 10 MG Montelukast Sodium 10 MG No Montelukas t Sodium 10 MG Ferrous Sulfate 325 (65 Fe) MG Ferrous Sulfate 325 (65 Fe) MG No 1{table t} QD Ferrous Sulfate 325 (65 Fe) MG Furosemide 40 MG Furosemide 40 MG No Furosemide 40 MG tiZANidine HCl 2 MG tiZANidine HCl 2 MG No 1{table t_at_be dtime_a s_neede d} QD tiZANidine HCl 2 MG ProAir HFA 108 (90 Base) MCG/ACT ProAir HFA 108 (90 Base) MCG/ACT No 2{puffs _as_nee ded} QID ProAir HFA 108 (90 Base) MCG/ACT Neurontin 600 MG Neurontin 600 MG No 1{table t} QD Neurontin 600 MG cloNIDine HCl 0.2 MG cloNIDine HCl 0.2 MG No 1{table t} cloNIDine HCl 0.2 MG Potassium Chloride Alexus ER 20 MEQ Potassium Chloride Alexus ER 20 MEQ No Potassium Chloride Alexus ER 20 MEQ Albuterol Sulfate (5 MG/ML) 0.5% Albuterol Sulfate (5 MG/ML) 0.5% No 1{ml_as _needed } QID Albuterol Sulfate (5 MG/ML) 0.5% Amiodarone HCl 200 MG Amiodarone HCl 200 MG No 1{table t} QD Amiodarone HCl 200 MG Rosuvastati n Calcium 10 MG Rosuvastati n Calcium 10 MG No 1{table t} Rosuvastat in Calcium 10 MG Spironolact one 50 MG Spironolact one 50 MG No 1{table t} QD Spironolac tone 50 MG Rosuvastati n Calcium 10 MG Rosuvastati n Calcium 10 MG No Rosuvastat in Calcium 10 MG Cholestyram ine 4 GM Cholestyram ine 4 GM No Cholestyra mine 4 GM Omeprazole 40 MG Omeprazole 40 MG No 1{capsu le} QD Omeprazole 40 MG Coreg 6.25 MG Coreg 6.25 MG No BID Coreg 6.25 MG Eliquis 5 MG Eliquis 5 MG No Eliquis 5 MG Flovent Diskus 100 MCG/BLIST Flovent Diskus 100 MCG/BLIST No 1{puff} BID Flovent Diskus 100 MCG/BLIST HYDROcodone -Acetaminop hen 10-325 MG HYDROcodone -Acetaminop hen 10-325 MG No 1{table t_as_ne eded} QID HYDROcodon e-Acetamin ophen 10-325 MG Aspir-81 81 MG Aspir-81 81 MG No 1{table t} QD Aspir-81 81 MG Combivent Respimat 20-100 MCG/ACT Combivent Respimat 20-100 MCG/ACT No 1{puff} QID Combivent Respimat 20-100 MCG/ACT Montelukast Sodium 10 MG Montelukast Sodium 10 MG No Montelukas t Sodium 10 MG Ferrous Sulfate 325 (65 Fe) MG Ferrous Sulfate 325 (65 Fe) MG No 1{table t} QD Ferrous Sulfate 325 (65 Fe) MG Furosemide 40 MG Furosemide 40 MG No Furosemide 40 MG tiZANidine HCl 2 MG tiZANidine HCl 2 MG No 1{table t_at_be dtime_a s_neede d} QD tiZANidine HCl 2 MG ProAir HFA 108 (90 Base) MCG/ACT ProAir HFA 108 (90 Base) MCG/ACT No 2{puffs _as_nee ded} QID ProAir HFA 108 (90 Base) MCG/ACT Neurontin 600 MG Neurontin 600 MG No 1{table t} QD Neurontin 600 MG cloNIDine HCl 0.2 MG cloNIDine HCl 0.2 MG No 1{table t} cloNIDine HCl 0.2 MG Potassium Chloride Alexus ER 20 MEQ Potassium Chloride Alexus ER 20 MEQ No Potassium Chloride Alexus ER 20 MEQ Albuterol Sulfate (5 MG/ML) 0.5% Albuterol Sulfate (5 MG/ML) 0.5% No 1{ml_as _needed } QID Albuterol Sulfate (5 MG/ML) 0.5% Amiodarone HCl 200 MG Amiodarone HCl 200 MG No 1{table t} QD Amiodarone HCl 200 MG Rosuvastati n Calcium 10 MG Rosuvastati n Calcium 10 MG No 1{table t} Rosuvastat in Calcium 10 MG Spironolact one 50 MG Spironolact one 50 MG No 1{table t} QD Spironolac tone 50 MG Rosuvastati n Calcium 10 MG Rosuvastati n Calcium 10 MG No Rosuvastat in Calcium 10 MG Cholestyram ine 4 GM Cholestyram ine 4 GM No Cholestyra mine 4 GM Omeprazole 40 MG Omeprazole 40 MG No 1{capsu le} QD Omeprazole 40 MG Coreg 6.25 MG Coreg 6.25 MG No BID Coreg 6.25 MG Flovent Diskus 100 MCG/BLIST Flovent Diskus 100 MCG/BLIST No 1{puff} BID Flovent Diskus 100 MCG/BLIST Albuterol Sulfate (5 MG/ML) 0.5% Albuterol Sulfate (5 MG/ML) 0.5% No 1{ml_as _needed } QID Albuterol Sulfate (5 MG/ML) 0.5% tiZANidine HCl 2 MG tiZANidine HCl 2 MG No 1{table t_at_be dtime_a s_neede d} QD tiZANidine HCl 2 MG Ferrous Sulfate 325 (65 Fe) MG Ferrous Sulfate 325 (65 Fe) MG No 1{table t} QD Ferrous Sulfate 325 (65 Fe) MG Losartan Potassium Losartan Potassium No Losartan Potassium Aspir-81 81 MG Aspir-81 81 MG No 1{table t} QD Aspir-81 81 MG Amiodarone HCl 200 MG Amiodarone HCl 200 MG No 1{table t} QD Amiodarone HCl 200 MG Cholestyram ine 4 GM Cholestyram ine 4 GM No Cholestyra mine 4 GM Rosuvastati n Calcium 10 MG Rosuvastati n Calcium 10 MG No 1{table t} Rosuvastat in Calcium 10 MG ProAir HFA 108 (90 Base) MCG/ACT ProAir HFA 108 (90 Base) MCG/ACT No 2{puffs _as_nee ded} QID ProAir HFA 108 (90 Base) MCG/ACT Eliquis 5 MG Eliquis 5 MG No Eliquis 5 MG Coreg 6.25 MG Coreg 6.25 MG No BID Coreg 6.25 MG Potassium Chloride Alexus ER 20 MEQ Potassium Chloride Alexus ER 20 MEQ No Potassium Chloride Alexus ER 20 MEQ Omeprazole 40 MG Omeprazole 40 MG No 1{capsu le} QD Omeprazole 40 MG Combivent Respimat 20-100 MCG/ACT Combivent Respimat 20-100 MCG/ACT No 1{puff} QID Combivent Respimat 20-100 MCG/ACT HYDROcodone -Acetaminop hen 10-325 MG HYDROcodone -Acetaminop hen 10-325 MG No 1{table t_as_ne eded} QID HYDROcodon e-Acetamin ophen 10-325 MG Montelukast Sodium 10 MG Montelukast Sodium 10 MG No Montelukas t Sodium 10 MG Neurontin 600 MG Neurontin 600 MG No 1{table t} QD Neurontin 600 MG cloNIDine HCl 0.2 MG cloNIDine HCl 0.2 MG No 1{table t} cloNIDine HCl 0.2 MG Rosuvastati n Calcium 10 MG Rosuvastati n Calcium 10 MG No Rosuvastat in Calcium 10 MG Spironolact one 50 MG Spironolact one 50 MG No 1{table t} QD Spironolac tone 50 MG Furosemide 40 MG Furosemide 40 MG No Furosemide 40 MG Flovent Diskus 100 MCG/BLIST Flovent Diskus 100 MCG/BLIST No 1{puff} BID Flovent Diskus 100 MCG/BLIST tiZANidine HCl 2 MG tiZANidine HCl 2 MG No 1{table t_at_be dtime_a s_neede d} QD tiZANidine HCl 2 MG Albuterol Sulfate (5 MG/ML) 0.5% Albuterol Sulfate (5 MG/ML) 0.5% No 1{ml_as _needed } QID Albuterol Sulfate (5 MG/ML) 0.5% Ferrous Sulfate 325 (65 Fe) MG Ferrous Sulfate 325 (65 Fe) MG No 1{table t} QD Ferrous Sulfate 325 (65 Fe) MG Aspir-81 81 MG Aspir-81 81 MG No 1{table t} QD Aspir-81 81 MG Amiodarone HCl 200 MG Amiodarone HCl 200 MG No 1{table t} QD Amiodarone HCl 200 MG Losartan Potassium Losartan Potassium No Losartan Potassium Rosuvastati n Calcium 10 MG Rosuvastati n Calcium 10 MG No 1{table t} Rosuvastat in Calcium 10 MG ProAir HFA 108 (90 Base) MCG/ACT ProAir HFA 108 (90 Base) MCG/ACT No 2{puffs _as_nee ded} QID ProAir HFA 108 (90 Base) MCG/ACT Eliquis 5 MG Eliquis 5 MG No Eliquis 5 MG Coreg 6.25 MG Coreg 6.25 MG No BID Coreg 6.25 MG HYDROcodone -Acetaminop hen 10-325 MG HYDROcodone -Acetaminop hen 10-325 MG No 1{table t_as_ne eded} QID HYDROcodon e-Acetamin ophen 10-325 MG Omeprazole 40 MG Omeprazole 40 MG No 1{capsu le} QD Omeprazole 40 MG Combivent Respimat 20-100 MCG/ACT Combivent Respimat 20-100 MCG/ACT No 1{puff} QID Combivent Respimat 20-100 MCG/ACT Cholestyram ine 4 GM Cholestyram ine 4 GM No Cholestyra mine 4 GM Potassium Chloride Alexus ER 20 MEQ Potassium Chloride Alexus ER 20 MEQ No Potassium Chloride Alexus ER 20 MEQ Montelukast Sodium 10 MG Montelukast Sodium 10 MG No Montelukas t Sodium 10 MG Neurontin 600 MG Neurontin 600 MG No 1{table t} QD Neurontin 600 MG cloNIDine HCl 0.2 MG cloNIDine HCl 0.2 MG No 1{table t} cloNIDine HCl 0.2 MG Rosuvastati n Calcium 10 MG Rosuvastati n Calcium 10 MG No Rosuvastat in Calcium 10 MG Spironolact one 50 MG Spironolact one 50 MG No 1{table t} QD Spironolac tone 50 MG Furosemide 40 MG Furosemide 40 MG No Furosemide 40 MG Rosuvastati n Calcium 10 MG Rosuvastati n Calcium 10 MG No Rosuvastat in Calcium 10 MG Omeprazole 40 MG Omeprazole 40 MG No 1{capsu le} QD Omeprazole 40 MG Amiodarone HCl 200 MG Amiodarone HCl 200 MG No 1{table t} QD Amiodarone HCl 200 MG Losartan Potassium Losartan Potassium No Losartan Potassium HYDROcodone -Acetaminop hen 10-325 MG HYDROcodone -Acetaminop hen 10-325 MG No 1{table t_as_ne eded} QID HYDROcodon e-Acetamin ophen 10-325 MG Albuterol Sulfate (5 MG/ML) 0.5% Albuterol Sulfate (5 MG/ML) 0.5% No 1{ml_as _needed } QID Albuterol Sulfate (5 MG/ML) 0.5% Cholestyram ine 4 GM Cholestyram ine 4 GM No Cholestyra mine 4 GM Rosuvastati n Calcium 10 MG Rosuvastati n Calcium 10 MG No 1{table t} Rosuvastat in Calcium 10 MG Eliquis 5 MG Eliquis 5 MG No Eliquis 5 MG ProAir HFA 108 (90 Base) MCG/ACT ProAir HFA 108 (90 Base) MCG/ACT No 2{puffs _as_nee ded} QID ProAir HFA 108 (90 Base) MCG/ACT Furosemide 40 MG Furosemide 40 MG No Furosemide 40 MG cloNIDine HCl 0.2 MG cloNIDine HCl 0.2 MG No 1{table t} cloNIDine HCl 0.2 MG Flovent Diskus 100 MCG/BLIST Flovent Diskus 100 MCG/BLIST No 1{puff} BID Flovent Diskus 100 MCG/BLIST Combivent Respimat 20-100 MCG/ACT Combivent Respimat 20-100 MCG/ACT No 1{puff} QID Combivent Respimat 20-100 MCG/ACT Ferrous Sulfate 325 (65 Fe) MG Ferrous Sulfate 325 (65 Fe) MG No 1{table t} QD Ferrous Sulfate 325 (65 Fe) MG Montelukast Sodium 10 MG Montelukast Sodium 10 MG No Montelukas t Sodium 10 MG Neurontin 600 MG Neurontin 600 MG No 1{table t} QD Neurontin 600 MG Aspir-81 81 MG Aspir-81 81 MG No 1{table t} QD Aspir-81 81 MG tiZANidine HCl 2 MG tiZANidine HCl 2 MG No 1{table t_at_be dtime_a s_neede d} QD tiZANidine HCl 2 MG Potassium Chloride Alexus ER 20 MEQ Potassium Chloride Alexus ER 20 MEQ No Potassium Chloride Alexus ER 20 MEQ Coreg 6.25 MG Coreg 6.25 MG No BID Coreg 6.25 MG Spironolact one 50 MG Spironolact one 50 MG No 1{table t} QD Spironolac tone 50 MG tiZANidine HCl 2 MG tiZANidine HCl 2 MG No 1{table t_at_be dtime_a s_neede d} QD tiZANidine HCl 2 MG Eliquis 5 MG Eliquis 5 MG No Eliquis 5 MG Potassium Chloride Alexus ER 20 MEQ Potassium Chloride Alexus ER 20 MEQ No Potassium Chloride Alexus ER 20 MEQ Losartan Potassium Losartan Potassium No Losartan Potassium Aspir-81 81 MG Aspir-81 81 MG No 1{table t} QD Aspir-81 81 MG Montelukast Sodium 10 MG Montelukast Sodium 10 MG No Montelukas t Sodium 10 MG Albuterol Sulfate (5 MG/ML) 0.5% Albuterol Sulfate (5 MG/ML) 0.5% No 1{ml_as _needed } QID Albuterol Sulfate (5 MG/ML) 0.5% Omeprazole 40 MG Omeprazole 40 MG No 1{capsu le} QD Omeprazole 40 MG Neurontin 600 MG Neurontin 600 MG No 1{table t} QD Neurontin 600 MG Coreg 6.25 MG Coreg 6.25 MG No BID Coreg 6.25 MG cloNIDine HCl 0.2 MG cloNIDine HCl 0.2 MG No 1{table t} cloNIDine HCl 0.2 MG Ferrous Sulfate 325 (65 Fe) MG Ferrous Sulfate 325 (65 Fe) MG No 1{table t} QD Ferrous Sulfate 325 (65 Fe) MG Amiodarone HCl 200 MG Amiodarone HCl 200 MG No 1{table t} QD Amiodarone HCl 200 MG ProAir HFA 108 (90 Base) MCG/ACT ProAir HFA 108 (90 Base) MCG/ACT No 2{puffs _as_nee ded} QID ProAir HFA 108 (90 Base) MCG/ACT Furosemide 40 MG Furosemide 40 MG No Furosemide 40 MG Spironolact one 50 MG Spironolact one 50 MG No 1{table t} QD Spironolac tone 50 MG Rosuvastati n Calcium 10 MG Rosuvastati n Calcium 10 MG No 1{table t} Rosuvastat in Calcium 10 MG Combivent Respimat 20-100 MCG/ACT Combivent Respimat 20-100 MCG/ACT No 1{puff} QID Combivent Respimat 20-100 MCG/ACT Cholestyram ine 4 GM Cholestyram ine 4 GM No Cholestyra mine 4 GM Flovent Diskus 100 MCG/BLIST Flovent Diskus 100 MCG/BLIST No 1{puff} BID Flovent Diskus 100 MCG/BLIST HYDROcodone -Acetaminop hen 10-325 MG HYDROcodone -Acetaminop hen 10-325 MG No 1{table t_as_ne eded} QID HYDROcodon e-Acetamin ophen 10-325 MG tiZANidine HCl 2 MG tiZANidine HCl 2 MG No 1{table t_at_be dtime_a s_neede d} QD tiZANidine HCl 2 MG Eliquis 5 MG Eliquis 5 MG No Eliquis 5 MG Potassium Chloride Alexus ER 20 MEQ Potassium Chloride Alexus ER 20 MEQ No Potassium Chloride Alexus ER 20 MEQ Losartan Potassium Losartan Potassium No Losartan Potassium Aspir-81 81 MG Aspir-81 81 MG No 1{table t} QD Aspir-81 81 MG Montelukast Sodium 10 MG Montelukast Sodium 10 MG No Montelukas t Sodium 10 MG Albuterol Sulfate (5 MG/ML) 0.5% Albuterol Sulfate (5 MG/ML) 0.5% No 1{ml_as _needed } QID Albuterol Sulfate (5 MG/ML) 0.5% Omeprazole 40 MG Omeprazole 40 MG No 1{capsu le} QD Omeprazole 40 MG Neurontin 600 MG Neurontin 600 MG No 1{table t} QD Neurontin 600 MG Coreg 6.25 MG Coreg 6.25 MG No BID Coreg 6.25 MG cloNIDine HCl 0.2 MG cloNIDine HCl 0.2 MG No 1{table t} cloNIDine HCl 0.2 MG Ferrous Sulfate 325 (65 Fe) MG Ferrous Sulfate 325 (65 Fe) MG No 1{table t} QD Ferrous Sulfate 325 (65 Fe) MG Amiodarone HCl 200 MG Amiodarone HCl 200 MG No 1{table t} QD Amiodarone HCl 200 MG ProAir HFA 108 (90 Base) MCG/ACT ProAir HFA 108 (90 Base) MCG/ACT No 2{puffs _as_nee ded} QID ProAir HFA 108 (90 Base) MCG/ACT Furosemide 40 MG Furosemide 40 MG No Furosemide 40 MG Spironolact one 50 MG Spironolact one 50 MG No 1{table t} QD Spironolac tone 50 MG Rosuvastati n Calcium 10 MG Rosuvastati n Calcium 10 MG No 1{table t} Rosuvastat in Calcium 10 MG Combivent Respimat 20-100 MCG/ACT Combivent Respimat 20-100 MCG/ACT No 1{puff} QID Combivent Respimat 20-100 MCG/ACT Cholestyram ine 4 GM Cholestyram ine 4 GM No Cholestyra mine 4 GM Flovent Diskus 100 MCG/BLIST Flovent Diskus 100 MCG/BLIST No 1{puff} BID Flovent Diskus 100 MCG/BLIST HYDROcodone -Acetaminop hen 10-325 MG HYDROcodone -Acetaminop hen 10-325 MG No 1{table t_as_ne eded} QID HYDROcodon e-Acetamin ophen 10-325 MG tiZANidine HCl 2 MG tiZANidine HCl 2 MG No 1{table t_at_be dtime_a s_neede d} QD tiZANidine HCl 2 MG Eliquis 5 MG Eliquis 5 MG No Eliquis 5 MG Potassium Chloride Alexus ER 20 MEQ Potassium Chloride Alexus ER 20 MEQ No Potassium Chloride Alexus ER 20 MEQ Losartan Potassium Losartan Potassium No Losartan Potassium Aspir-81 81 MG Aspir-81 81 MG No 1{table t} QD Aspir-81 81 MG Montelukast Sodium 10 MG Montelukast Sodium 10 MG No Montelukas t Sodium 10 MG Albuterol Sulfate (5 MG/ML) 0.5% Albuterol Sulfate (5 MG/ML) 0.5% No 1{ml_as _needed } QID Albuterol Sulfate (5 MG/ML) 0.5% Omeprazole 40 MG Omeprazole 40 MG No 1{capsu le} QD Omeprazole 40 MG Neurontin 600 MG Neurontin 600 MG No 1{table t} QD Neurontin 600 MG Coreg 6.25 MG Coreg 6.25 MG No BID Coreg 6.25 MG cloNIDine HCl 0.2 MG cloNIDine HCl 0.2 MG No 1{table t} cloNIDine HCl 0.2 MG Ferrous Sulfate 325 (65 Fe) MG Ferrous Sulfate 325 (65 Fe) MG No 1{table t} QD Ferrous Sulfate 325 (65 Fe) MG Amiodarone HCl 200 MG Amiodarone HCl 200 MG No 1{table t} QD Amiodarone HCl 200 MG ProAir HFA 108 (90 Base) MCG/ACT ProAir HFA 108 (90 Base) MCG/ACT No 2{puffs _as_nee ded} QID ProAir HFA 108 (90 Base) MCG/ACT Furosemide 40 MG Furosemide 40 MG No Furosemide 40 MG Spironolact one 50 MG Spironolact one 50 MG No 1{table t} QD Spironolac tone 50 MG Rosuvastati n Calcium 10 MG Rosuvastati n Calcium 10 MG No 1{table t} Rosuvastat in Calcium 10 MG Combivent Respimat 20-100 MCG/ACT Combivent Respimat 20-100 MCG/ACT No 1{puff} QID Combivent Respimat 20-100 MCG/ACT Cholestyram ine 4 GM Cholestyram ine 4 GM No Cholestyra mine 4 GM Flovent Diskus 100 MCG/BLIST Flovent Diskus 100 MCG/BLIST No 1{puff} BID Flovent Diskus 100 MCG/BLIST HYDROcodone -Acetaminop hen 10-325 MG HYDROcodone -Acetaminop hen 10-325 MG No 1{table t_as_ne eded} QID HYDROcodon e-Acetamin ophen 10-325 MG Rosuvastati n Calcium 10 MG Rosuvastati n Calcium 10 MG No 1{table t} Rosuvastat in Calcium 10 MG Flovent Diskus 100 MCG/BLIST Flovent Diskus 100 MCG/BLIST No 1{puff} BID Flovent Diskus 100 MCG/BLIST Cholestyram ine 4 GM Cholestyram ine 4 GM No Cholestyra mine 4 GM Montelukast Sodium 10 MG Montelukast Sodium 10 MG No Montelukas t Sodium 10 MG Spironolact one 50 MG Spironolact one 50 MG No 1{table t} QD Spironolac tone 50 MG ProAir HFA 108 (90 Base) MCG/ACT ProAir HFA 108 (90 Base) MCG/ACT No 2{puffs _as_nee ded} QID ProAir HFA 108 (90 Base) MCG/ACT cloNIDine HCl 0.2 MG cloNIDine HCl 0.2 MG No 1{table t} cloNIDine HCl 0.2 MG Losartan Potassium Losartan Potassium No Losartan Potassium Coreg 6.25 MG Coreg 6.25 MG No BID Coreg 6.25 MG Neurontin 600 MG Neurontin 600 MG No 1{table t} QD Neurontin 600 MG Albuterol Sulfate (5 MG/ML) 0.5% Albuterol Sulfate (5 MG/ML) 0.5% No 1{ml_as _needed } QID Albuterol Sulfate (5 MG/ML) 0.5% Ferrous Sulfate 325 (65 Fe) MG Ferrous Sulfate 325 (65 Fe) MG No 1{table t} QD Ferrous Sulfate 325 (65 Fe) MG HYDROcodone -Acetaminop hen 10-325 MG HYDROcodone -Acetaminop hen 10-325 MG No 1{table t_as_ne eded} QID HYDROcodon e-Acetamin ophen 10-325 MG Furosemide 80 MG Furosemide 80 MG No 1{table t} BID Furosemide 80 MG Potassium Chloride Alexus ER 20 MEQ Potassium Chloride Alexus ER 20 MEQ No Potassium Chloride Alexus ER 20 MEQ Amiodarone HCl 200 MG Amiodarone HCl 200 MG No 1{table t} QD Amiodarone HCl 200 MG Aspir-81 81 MG Aspir-81 81 MG No 1{table t} QD Aspir-81 81 MG Omeprazole 40 MG Omeprazole 40 MG No 1{capsu le} QD Omeprazole 40 MG tiZANidine HCl 2 MG tiZANidine HCl 2 MG No 1{table t_at_be dtime_a s_neede d} QD tiZANidine HCl 2 MG Eliquis 5 MG Eliquis 5 MG No Eliquis 5 MG Combivent Respimat 20-100 MCG/ACT Combivent Respimat 20-100 MCG/ACT No 1{puff} QID Combivent Respimat 20-100 MCG/ACT cloNIDine HCl 0.2 MG cloNIDine HCl 0.2 MG No 1{table t} cloNIDine HCl 0.2 MG Omeprazole 40 MG Omeprazole 40 MG No 1{capsu le} QD Omeprazole 40 MG Albuterol Sulfate (5 MG/ML) 0.5% Albuterol Sulfate (5 MG/ML) 0.5% No 1{ml_as _needed } QID Albuterol Sulfate (5 MG/ML) 0.5% Losartan Potassium Losartan Potassium No Losartan Potassium Potassium Chloride Alexus ER 20 MEQ Potassium Chloride Alexus ER 20 MEQ No Potassium Chloride Alexus ER 20 MEQ Flovent Diskus 100 MCG/BLIST Flovent Diskus 100 MCG/BLIST No 1{puff} BID Flovent Diskus 100 MCG/BLIST ProAir HFA 108 (90 Base) MCG/ACT ProAir HFA 108 (90 Base) MCG/ACT No 2{puffs _as_nee ded} QID ProAir HFA 108 (90 Base) MCG/ACT Aspir-81 81 MG Aspir-81 81 MG No 1{table t} QD Aspir-81 81 MG Furosemide 80 MG Furosemide 80 MG No 1{table t} BID Furosemide 80 MG HYDROcodone -Acetaminop hen 10-325 MG HYDROcodone -Acetaminop hen 10-325 MG No 1{table t_as_ne eded} QID HYDROcodon e-Acetamin ophen 10-325 MG Eliquis 5 MG Eliquis 5 MG No Eliquis 5 MG Spironolact one 50 MG Spironolact one 50 MG No 1{table t} QD Spironolac tone 50 MG Coreg 6.25 MG Coreg 6.25 MG No BID Coreg 6.25 MG Ferrous Sulfate 325 (65 Fe) MG Ferrous Sulfate 325 (65 Fe) MG No 1{table t} QD Ferrous Sulfate 325 (65 Fe) MG Cholestyram ine 4 GM Cholestyram ine 4 GM No Cholestyra mine 4 GM tiZANidine HCl 2 MG tiZANidine HCl 2 MG No 1{table t_at_be dtime_a s_neede d} QD tiZANidine HCl 2 MG metFORMIN HCl ER 500 MG metFORMIN HCl ER 500 MG No QD metFORMIN HCl ER 500 MG Neurontin 600 MG Neurontin 600 MG No 1{table t} QD Neurontin 600 MG Combivent Respimat 20-100 MCG/ACT Combivent Respimat 20-100 MCG/ACT No 1{puff} QID Combivent Respimat 20-100 MCG/ACT Montelukast Sodium 10 MG Montelukast Sodium 10 MG No Montelukas t Sodium 10 MG Amiodarone HCl 200 MG Amiodarone HCl 200 MG No 1{table t} QD Amiodarone HCl 200 MG Rosuvastati n Calcium 10 MG Rosuvastati n Calcium 10 MG No 1{table t} Rosuvastat in Calcium 10 MG cloNIDine HCl 0.2 MG cloNIDine HCl 0.2 MG No 1{table t} cloNIDine HCl 0.2 MG Omeprazole 40 MG Omeprazole 40 MG No 1{capsu le} QD Omeprazole 40 MG Albuterol Sulfate (5 MG/ML) 0.5% Albuterol Sulfate (5 MG/ML) 0.5% No 1{ml_as _needed } QID Albuterol Sulfate (5 MG/ML) 0.5% Losartan Potassium Losartan Potassium No Losartan Potassium Furosemide 80 MG Furosemide 80 MG No 1{table t} BID Furosemide 80 MG Flovent Diskus 100 MCG/BLIST Flovent Diskus 100 MCG/BLIST No 1{puff} BID Flovent Diskus 100 MCG/BLIST ProAir HFA 108 (90 Base) MCG/ACT ProAir HFA 108 (90 Base) MCG/ACT No 2{puffs _as_nee ded} QID ProAir HFA 108 (90 Base) MCG/ACT Aspir-81 81 MG Aspir-81 81 MG No 1{table t} QD Aspir-81 81 MG Combivent Respimat 20-100 MCG/ACT Combivent Respimat 20-100 MCG/ACT No 1{puff} QID Combivent Respimat 20-100 MCG/ACT HYDROcodone -Acetaminop hen 10-325 MG HYDROcodone -Acetaminop hen 10-325 MG No 1{table t_as_ne eded} QID HYDROcodon e-Acetamin ophen 10-325 MG Eliquis 5 MG Eliquis 5 MG No Eliquis 5 MG Spironolact one 50 MG Spironolact one 50 MG No 1{table t} QD Spironolac tone 50 MG Coreg 6.25 MG Coreg 6.25 MG No BID Coreg 6.25 MG metFORMIN HCl ER 500 MG metFORMIN HCl ER 500 MG No metFORMIN HCl ER 500 MG Cholestyram ine 4 GM Cholestyram ine 4 GM No Cholestyra mine 4 GM Montelukast Sodium 10 MG Montelukast Sodium 10 MG No Montelukas t Sodium 10 MG Neurontin 600 MG Neurontin 600 MG No 1{table t} QD Neurontin 600 MG tiZANidine HCl 2 MG tiZANidine HCl 2 MG No 1{table t_at_be dtime_a s_neede d} QD tiZANidine HCl 2 MG Potassium Chloride Alexus ER 20 MEQ Potassium Chloride Alexus ER 20 MEQ No Potassium Chloride Alexus ER 20 MEQ Amiodarone HCl 200 MG Amiodarone HCl 200 MG No 1{table t} QD Amiodarone HCl 200 MG Ferrous Sulfate 325 (65 Fe) MG Ferrous Sulfate 325 (65 Fe) MG No 1{table t} QD Ferrous Sulfate 325 (65 Fe) MG Rosuvastati n Calcium 10 MG Rosuvastati n Calcium 10 MG No 1{table t} Rosuvastat in Calcium 10 MG Immunizations Ordered Immunization Name Filled Immunization Name Date Status Comments Source Flucelvax - single dose syringe Flucelvax - single dose syringe 2022-09-18 12:24:00 Completed [facility] Flucelvax - single dose syringe Flucelvax - single dose syringe 2022-09-18 12:24:00 [facility] Flucelvax - single dose syringe Flucelvax - single dose syringe 2022-09-18 12:24:00 [facility] Flucelvax - single dose syringe Flucelvax - single dose syringe 2022-09-18 12:24:00 Completed [facility] Flucelvax - single dose syringe Flucelvax - single dose syringe 2022-09-18 12:24:00 Completed [facility] Flucelvax - single dose syringe Flucelvax - single dose syringe 2022-09-18 12:24:00 [facility] Flucelvax - single dose syringe Flucelvax - single dose syringe 2022-09-18 12:24:00 Completed [facility] Flucelvax - single dose syringe Flucelvax - single dose syringe 2022-09-18 12:24:00 Completed [facility] Flucelvax - single dose syringe Flucelvax - single dose syringe 2022-09-18 12:24:00 Completed [facility] Flucelvax - single dose syringe Flucelvax - single dose syringe 2022-09-18 12:24:00 Completed [facility] Flucelvax - single dose syringe Flucelvax - single dose syringe 2022-09-18 12:24:00 Completed [facility] Td Td 2022-04-10 11:44:00 Completed [facility] Td Td 2022-04-10 11:44:00 Completed [facility] Td Td 2022-04-10 11:44:00 Completed [facility] Td Td 2022-04-10 11:44:00 Completed [facility] Td Td 2022-04-10 11:44:00 Completed [facility] Td Td 2022-04-10 11:44:00 Completed [facility] Td Td 2022-04-10 11:44:00 Completed [facility] Td Td 2022-04-10 11:44:00 Completed [facility] Td Td 2022-04-10 11:44:00 Completed [facility] Td Td 2022-04-10 11:44:00 Completed [facility] Td Td 2022-04-10 11:44:00 Completed [facility] Td Td 2022-04-10 11:44:00 Completed [facility] Td Td 2022-04-10 11:44:00 Completed [facility] Td Td 2022-04-10 11:44:00 Completed [facility] Td Td 2022-04-10 11:44:00 [facility]pleted [facility] Td Td 2022-04-10 11:44:00 Completed [facility] Td Td 2022-04-10 11:44:00 [facility]pleted [facility] Td Td 2022-04-10 11:44:00 Completed [facility] Moderna COVID-19 Vaccine (Low Dose Booster) Moderna COVID-19 Vaccine (Low Dose Booster) 2021-10-07 15:33:00 Completed [facility] Moderna COVID-19 Vaccine (Low Dose Booster) Moderna COVID-19 Vaccine (Low Dose Booster) 2021-10-07 15:33:00 Completed [facility] Moderna COVID-19 Vaccine (Low Dose Booster) Moderna COVID-19 Vaccine (Low Dose Booster) 2021-10-07 15:33:00 Completed [facility] Moderna COVID-19 Vaccine (Low Dose Booster) Moderna COVID-19 Vaccine (Low Dose Booster) 2021-10-07 15:33:00 Completed [facility] Moderna COVID-19 Vaccine (Low Dose Booster) Moderna COVID-19 Vaccine (Low Dose Booster) 2021-10-07 15:33:00 Completed [facility] Moderna COVID-19 Vaccine (Low Dose Booster) Moderna COVID-19 Vaccine (Low Dose Booster) 2021-10-07 15:33:00 Completed [facility] Moderna COVID-19 Vaccine (Low Dose Booster) Moderna COVID-19 Vaccine (Low Dose Booster) 2021-10-07 15:33:00 Completed [facility] Moderna COVID-19 Vaccine (Low Dose Booster) Moderna COVID-19 Vaccine (Low Dose Booster) 2021-10-07 15:33:00 Completed [facility] Moderna COVID-19 Vaccine (Low Dose Booster) Moderna COVID-19 Vaccine (Low Dose Booster) 2021-10-07 15:33:00 Completed [facility] Moderna COVID-19 Vaccine (Low Dose Booster) Moderna COVID-19 Vaccine (Low Dose Booster) 2021-10-07 15:33:00 Completed [facility] Moderna COVID-19 Vaccine (Low Dose Booster) Moderna COVID-19 Vaccine (Low Dose Booster) 2021-10-07 15:33:00 Completed [facility] Moderna COVID-19 Vaccine (Low Dose Booster) Moderna COVID-19 Vaccine (Low Dose Booster) 2021-10-07 15:33:00 Completed [facility] Moderna COVID-19 Vaccine (Low Dose Booster) Moderna COVID-19 Vaccine (Low Dose Booster) 2021-10-07 15:33:00 Completed [facility] Moderna COVID-19 Vaccine (Low Dose Booster) Moderna COVID-19 Vaccine (Low Dose Booster) 2021-10-07 15:33:00 Completed [facility] Moderna COVID-19 Vaccine (Low Dose Booster) Moderna COVID-19 Vaccine (Low Dose Booster) 2021-10-07 15:33:00 Completed [facility] Moderna COVID-19 Vaccine (Low Dose Booster) Moderna COVID-19 Vaccine (Low Dose Booster) 2021-10-07 15:33:00 Completed [facility] Moderna COVID-19 Vaccine (Low Dose Booster) Moderna COVID-19 Vaccine (Low Dose Booster) 2021-10-07 15:33:00 Completed [facility] Moderna COVID-19 Vaccine (Low Dose Booster) Moderna COVID-19 Vaccine (Low Dose Booster) 2021-10-07 15:33:00 Completed [facility] Moderna COVID-19 Vaccine (Low Dose Booster) Moderna COVID-19 Vaccine (Low Dose Booster) 2021-10-07 15:33:00 Completed [facility] Moderna COVID-19 Vaccine (Low Dose Booster) Moderna COVID-19 Vaccine (Low Dose Booster) 2021-10-07 15:33:00 Completed [facility] Moderna COVID-19 Vaccine (Low Dose Booster) Moderna COVID-19 Vaccine (Low Dose Booster) 2021-10-07 15:33:00 Completed [facility] Moderna COVID-19 Vaccine (Low Dose Booster) Moderna COVID-19 Vaccine (Low Dose Booster) 2021-10-07 15:33:00 Completed [facility] Moderna COVID-19 Vaccine (Low Dose Booster) Moderna COVID-19 Vaccine (Low Dose Booster) 2021-10-07 15:33:00 Completed [facility] Moderna COVID-19 Vaccine (Low Dose Booster) Moderna COVID-19 Vaccine (Low Dose Booster) 2021-10-07 15:33:00 Completed [facility] Moderna COVID-19 Vaccine (Low Dose Booster) Moderna COVID-19 Vaccine (Low Dose Booster) 2021-10-07 15:33:00 Completed [facility] Moderna COVID-19 Vaccine (Low Dose Booster) Moderna COVID-19 Vaccine (Low Dose Booster) 2021-10-07 15:33:00 Completed [facility] Moderna COVID-19 Vaccine (Low Dose Booster) Moderna COVID-19 Vaccine (Low Dose Booster) 2021-10-07 15:33:00 Completed [facility] Moderna COVID-19 Vaccine (Low Dose Booster) Moderna COVID-19 Vaccine (Low Dose Booster) 2021-10-07 15:33:00 [facility] Moderna COVID-19 Vaccine (Low Dose Booster) 2021-10-07 15:33:00 Completed [facility] Moderna COVID-19 Vaccine (Low Dose Booster) Moderna COVID-19 Vaccine (Low Dose Booster) 2021-10-07 15:33:00 Completed [facility] Moderna COVID-19 Vaccine (Low Dose Booster) Moderna COVID-19 Vaccine (Low Dose Booster) 2021-10-07 15:33:00 [facility]-07 13:58:00 [facility] 2021-10-07 13:58:00 [facility] 2021-10-07 13:58:00 Completed [facility] Afluria Afluria 2021-10-07 13:58:00 [facility] 2021-10-07 13:58:00 [facility] 2021-10-07 13:58:00 [facility] 2021-10-07 13:58:00 Completed [facility] Afluria Afluria 2021-10-07 13:58:00 [facility]pleted [facility] Afluria Afluria 2021-10-07 13:58:00 Completed [facility] Afluria Afluria 2021-10-07 13:58:00 Completed [facility] Afluria Afluria 2021-10-07 13:58:00 Completed [facility] Afluria Afluria 2021-10-07 13:58:00 Completed [facility] Afluria Afluria 2021-10-07 13:58:00 Completed [facility] Afluria Afluria 2021-10-07 13:58:00 Completed [facility] Afluria Afluria 2021-10-07 13:58:00 Completed [facility] Afluria Afluria 2021-10-07 13:58:00 Completed [facility] Afluria Afluria 2021-10-07 13:58:00 Completed [facility] Afluria Afluria 2021-10-07 13:58:00 Completed [facility] Afluria Afluria 2021-10-07 13:58:00 Completed [facility] Afluria Afluria 2021-10-07 13:58:00 Completed [facility] Afluria Afluria 2021-10-07 13:58:00 Completed [facility] Afluria Afluria 2021-10-07 13:58:00 Completed [facility] Afluria Afluria 2021-10-07 13:58:00 Completed [facility] Afluria Afluria 2021-10-07 13:58:00 Completed [facility] Afluria Afluria 2021-10-07 13:58:00 Completed [facility] Afluria Afluria 2021-10-07 13:58:00 Completed [facility] Afluria Afluria 2021-10-07 13:58:00 Completed [facility] Afluria Afluria 2021-10-07 13:58:00 Completed [facility] Afluria Afluria 2021-10-07 13:58:00 Completed [facility] Afluria Afluria 2021-10-07 13:58:00 Completed [facility] Afluria Afluria 2021-10-07 13:58:00 Completed [facility] SARS-COV-2 COVID-19 MODERNA 12+ YRS VACCINE 2021-01-30 00:00:00 Completed [facility] SARS-COV-2 COVID-19 MODERNA 12+ YRS VACCINE 2021-01-30 00:00:00 Completed [facility] SARS-COV-2 COVID-19 MODERNA 12+ YRS VACCINE 2021-01-30 00:00:00 Completed [facility] SARS-COV-2 COVID-19 MODERNA 12+ YRS VACCINE 2021-01-30 00:00:00 Completed [facility] SARS-COV-2 COVID-19 MODERNA 12+ YRS VACCINE 2021-01-30 00:00:00 Completed [facility] SARS-COV-2 COVID-19 MODERNA VACCINE 2021-01-30 00:00:00 Completed [facility] SARS-COV-2 COVID-19 MODERNA VACCINE 2021-01-30 00:00:00 Completed [facility] SARS-COV-2 COVID-19 MODERNA VACCINE 2021-01-30 00:00:00 Completed [facility] SARS-COV-2 COVID-19 MODERNA 12+ YRS VACCINE 2021-01-30 00:00:00 Completed [facility] SARS-COV-2 COVID-19 MODERNA 12+ YRS VACCINE 2021-01-30 00:00:00 Completed [facility] SARS-COV-2 COVID-19 MODERNA 12+ YRS VACCINE 2021-01-30 00:00:00 Completed [facility] SARS-COV-2 COVID-19 MODERNA 12+ YRS VACCINE 2021-01-30 00:00:00 Completed [facility] SARS-COV-2 COVID-19 MODERNA 12+ YRS VACCINE 2021-01-02 00:00:00 Completed [facility] SARS-COV-2 COVID-19 MODERNA 12+ YRS VACCINE 2021-01-02 00:00:00 Completed [facility] SARS-COV-2 COVID-19 MODERNA 12+ YRS VACCINE 2021-01-02 00:00:00 Completed [facility] SARS-COV-2 COVID-19 MODERNA 12+ YRS VACCINE 2021-01-02 00:00:00 Completed [facility] SARS-COV-2 COVID-19 MODERNA 12+ YRS VACCINE 2021-01-02 00:00:00 Completed [facility] SARS-COV-2 COVID-19 MODERNA VACCINE 2021-01-02 00:00:00 Completed [facility] SARS-COV-2 COVID-19 MODERNA VACCINE 2021-01-02 00:00:00 Completed [facility] SARS-COV-2 COVID-19 MODERNA VACCINE 2021-01-02 00:00:00 Completed [facility] SARS-COV-2 COVID-19 MODERNA 12+ YRS VACCINE 2021-01-02 00:00:00 Completed [facility] SARS-COV-2 COVID-19 MODERNA 12+ YRS VACCINE 2021-01-02 00:00:00 Completed [facility] SARS-COV-2 COVID-19 MODERNA 12+ YRS VACCINE 2021-01-02 00:00:00 Completed [facility] SARS-COV-2 COVID-19 MODERNA 12+ YRS VACCINE 2021-01-02 00:00:00 Completed [facility] Afluria single dose Afluria single dose 2020-09-06 12:04:00 Completed [facility] Afluria single dose Afluria single dose 2020-09-06 12:04:00 Completed [facility] Afluria single dose Afluria single dose 2020-09-06 12:04:00 Completed [facility] Afluria single dose Afluria single dose 2020-09-06 12:04:00 Completed [facility] Afluria single dose Afluria single dose 2020-09-06 12:04:00 Completed [facility] Afluria single dose Afluria single dose 2020-09-06 12:04:00 Completed [facility] Afluria single dose Afluria single dose 2020-09-06 12:04:00 Completed [facility] Afluria single dose Afluria single dose 2020-09-06 12:04:00 Completed [facility] Afluria single dose Afluria single dose 2020-09-06 12:04:00 Completed [facility] Afluria single dose Afluria single dose 2020-09-06 12:04:00 Completed [facility] Afluria single dose Afluria single dose 2020-09-06 12:04:00 Completed [facility] Afluria single dose Afluria single dose 2020-09-06 12:04:00 Completed [facility] Afluria single dose Afluria single dose 2020-09-06 12:04:00 Completed [facility] Afluria single dose Afluria single dose 2020-09-06 12:04:00 Completed [facility] Afluria single dose Afluria single dose 2020-09-06 12:04:00 Completed [facility] Afluria single dose Afluria single dose 2020-09-06 12:04:00 Completed [facility] Afluria single dose Afluria single dose 2020-09-06 12:04:00 Completed [facility] Afluria single dose Afluria single dose 2020-09-06 12:04:00 Completed [facility] Afluria single dose Afluria single dose 2020-09-06 12:04:00 Completed [facility] Afluria single dose Afluria single dose 2020-09-06 12:04:00 Completed [facility] Afluria single dose Afluria single dose 2020-09-06 12:04:00 Completed [facility] Afluria single dose Afluria single dose 2020-09-06 12:04:00 Completed [facility] Afluria single dose Afluria single dose 2020-09-06 12:04:00 Completed [facility] Afluria single dose Afluria single dose 2020-09-06 12:04:00 Completed [facility] Afluria single dose Afluria single dose 2020-09-06 12:04:00 Completed [facility] Afluria single dose Afluria single dose 2020-09-06 12:04:00 Completed [facility] Afluria single dose Afluria single dose 2020-09-06 12:04:00 Completed [facility] Afluria single dose Afluria single dose 2020-09-06 12:04:00 Completed [facility] Afluria single dose Afluria single dose 2020-09-06 12:04:00 Completed [facility] Afluria single dose Afluria single dose 2020-09-06 12:04:00 Completed [facility] Afluria single dose Afluria single dose 2020-09-06 12:04:00 Completed [facility] Afluria single dose Afluria single dose 2020-09-06 12:04:00 Completed [facility] Afluria single dose Afluria single dose 2020-09-06 12:04:00 Completed [facility] Afluria single dose Afluria single dose 2020-09-06 12:04:00 Completed [facility] Afluria single dose Afluria single dose 2019-08-21 15:26:00 Completed [facility] Afluria single dose Afluria single dose 2019-08-21 15:26:00 Completed [facility] Afluria single dose Afluria single dose 2019-08-21 15:26:00 Completed [facility] Afluria single dose Afluria single dose 2019-08-21 15:26:00 Completed [facility] Afluria single dose Afluria single dose 2019-08-21 15:26:00 Completed [facility] Afluria single dose Afluria single dose 2019-08-21 15:26:00 Completed [facility] Afluria single dose Afluria single dose 2019-08-21 15:26:00 Completed [facility] Afluria single dose Afluria single dose 2019-08-21 15:26:00 Completed [facility] Afluria single dose Afluria single dose 2019-08-21 15:26:00 Completed [facility] Afluria single dose Afluria single dose 2019-08-21 15:26:00 Completed [facility] Afluria single dose Afluria single dose 2019-08-21 15:26:00 Completed [facility] Afluria single dose Afluria single dose 2019-08-21 15:26:00 Completed [facility] Afluria single dose Afluria single dose 2019-08-21 15:26:00 Completed [facility] Afluria single dose Afluria single dose 2019-08-21 15:26:00 Completed [facility] Afluria single dose Afluria single dose 2019-08-21 15:26:00 Completed [facility] Afluria single dose Afluria single dose 2019-08-21 15:26:00 Completed [facility] Afluria single dose Afluria single dose 2019-08-21 15:26:00 Completed [facility] Afluria single dose Afluria single dose 2019-08-21 15:26:00 Completed [facility] Afluria single dose Afluria single dose 2019-08-21 15:26:00 Completed [facility] Afluria single dose Afluria single dose 2019-08-21 15:26:00 Completed [facility] Afluria single dose Afluria single dose 2019-08-21 15:26:00 Completed [facility] Afluria single dose Afluria single dose 2019-08-21 15:26:00 Completed [facility] Afluria single dose Afluria single dose 2019-08-21 15:26:00 Completed [facility] Afluria single dose Afluria single dose 2019-08-21 15:26:00 Completed [facility] Afluria single dose Afluria single dose 2019-08-21 15:26:00 Completed [facility] Afluria single dose Afluria single dose 2019-08-21 15:26:00 [facility] Afluria single dose Afluria single dose 2019-08-21 15:26:00 Completed [facility] Afluria single dose Afluria single dose 2019-08-21 15:26:00 Completed [facility] Afluria single dose Afluria single dose 2019-08-21 15:26:00 Completed [facility] Afluria single dose Afluria single dose 2019-08-21 15:26:00 Completed [facility] Afluria single dose Afluria single dose 2019-08-21 15:26:00 Completed [facility] Afluria single dose Afluria single dose 2019-08-21 15:26:00 Completed [facility] Afluria single dose Afluria single dose 2019-08-21 15:26:00 Completed [facility] Afluria single dose Afluria single dose 2019-08-21 15:26:00 Completed [facility] Afluria single dose Afluria single dose 2019-08-21 00:00:00 Completed [facility] Afluria Afluria 2018-09-20 10:06:00 Completed [facility] Afluria Afluria 2018-09-20 10:06:00 Completed [facility] Afluria Afluria 2018-09-20 10:06:00 Completed [facility] Afluria Afluria 2018-09-20 10:06:00 [facility]pleted [facility] Afluria Afluria 2018-09-20 10:06:00 [facility]pleted [facility] Afluria Afluria 2018-09-20 10:06:00 [facility]pleted [facility] Afluria Afluria 2018-09-20 10:06:00 [facility]pleted [facility] Afluria Afluria 2018-09-20 10:06:00 [facility]pleted [facility] Afluria Afluria 2018-09-20 10:06:00 [facility]pleted [facility] Afluria Afluria 2018-09-20 10:06:00 Completed [facility] Afluria Afluria 2018-09-20 10:06:00 Completed [facility] Afluria Afluria 2018-09-20 10:06:00 Completed [facility] Afluria Afluria 2018-09-20 10:06:00 Completed [facility] Afluria Afluria 2018-09-20 10:06:00 Completed [facility] Afluria Afluria 2018-09-20 10:06:00 Completed [facility] Afluria Afluria 2018-09-20 10:06:00 Completed [facility] Afluria Afluria 2018-09-20 10:06:00 Completed [facility] Afluria Afluria 2018-09-20 10:06:00 Completed [facility] Afluria Afluria 2018-09-20 10:06:00 Completed [facility] Afluria Afluria 2018-09-20 10:06:00 Completed [facility] Afluria Afluria 2018-09-20 10:06:00 Completed [facility] Afluria Afluria 2018-09-20 10:06:00 Completed [facility] Afluria Afluria 2018-09-20 10:06:00 Completed [facility] Afluria Afluria 2018-09-20 10:06:00 Completed [facility] Afluria Afluria 2018-09-20 10:06:00 Completed [facility] Afluria Afluria 2018-09-20 10:06:00 Completed [facility] Afluria Afluria 2018-09-20 10:06:00 Completed [facility] Afluria Afluria 2018-09-20 10:06:00 Completed [facility] Afluria Afluria 2018-09-20 10:06:00 Completed [facility] Afluria Afluria 2018-09-20 10:06:00 Completed [facility] Afluria Afluria 2018-09-20 10:06:00 Completed [facility] Afluria Afluria 2018-09-20 10:06:00 Completed [facility] Afluria Afluria 2018-09-20 10:06:00 Completed [facility] Afluria Afluria 2018-09-20 10:06:00 Completed [facility] Pneumococcal Polysaccharide, PPSV23 (PNEUMOVAX) 2013-06-06 00:00:00 Completed [facility] Pneumococcal Polysaccharide, PPSV23 (PNEUMOVAX) 2013-06-06 00:00:00 Completed [facility] Pneumococcal Polysaccharide, PPSV23 (PNEUMOVAX) 2013-06-06 00:00:00 Completed [facility] Pneumococcal Polysaccharide, PPSV23 (PNEUMOVAX) 2013-06-06 00:00:00 Completed [facility] Pneumococcal Polysaccharide, PPSV23 (PNEUMOVAX) 2013-06-06 00:00:00 Completed [facility] Pneumococcal Polysaccharide, PPSV23 (PNEUMOVAX) 2013-06-06 00:00:00 Completed [facility] Pneumococcal Polysaccharide, PPSV23 (PNEUMOVAX) 2013-06-06 00:00:00 Completed [facility] Pneumococcal Polysaccharide, PPSV23 (PNEUMOVAX) 2013-06-06 00:00:00 Completed [facility] Pneumococcal Polysaccharide, PPSV23 (PNEUMOVAX) 2013-06-06 00:00:00 Completed [facility] Pneumococcal Polysaccharide, PPSV23 (PNEUMOVAX) 2013-06-06 00:00:00 Completed [facility] Pneumococcal Polysaccharide, PPSV23 (PNEUMOVAX) 2013-06-06 00:00:00 Completed [facility] Pneumococcal Polysaccharide, PPSV23 (PNEUMOVAX) 2013-06-06 00:00:00 Completed [facility] Moderna COVID-19 Vaccine (Low Dose Booster) Moderna COVID-19 Vaccine (Low Dose Booster) Unknown Completed [facility] Afluria single dose Afluria single dose Unknown Completed [facility] Afluria single dose Afluria single dose Unknown Completed [facility] Afluria Afluria Unknown Completed [facility] Afluria Afluria Unknown Completed [facility] Flucelvax - single dose syringe Flucelvax - single dose syringe Unknown Completed [facility] Td Td Unknown [facility]Low Dose Booster) Moderna COVID-19 Vaccine (Low Dose Booster) Unknown Completed [facility] Afluria single dose Afluria single dose Unknown Completed [facility] Afluria single dose Afluria single dose Unknown Completed [facility] Afluria Afluria Unknown Completed [facility] Afluria Afluria Unknown Completed [facility] Flucelvax - single dose syringe Flucelvax - single dose syringe Unknown Completed [facility] Td Td Unknown Com[facility] COVID-[facility] Vaccine (Low Dose Booster) Moderna COVID-19 Vaccine (Low Dose Booster) Unknown Completed [facility] Afluria single dose Afluria single dose Unknown Completed [facility] Afluria single dose Afluria single dose Unknown Completed [facility] Afluria Afluria Unknown Completed [facility] Afluria Afluria Unknown Completed [facility] Flucelvax - single dose syringe Flucelvax - single dose syringe Unknown Completed [facility] Td Td Unknown Com[facility] COVID-[facility] Vaccine (Low Dose Booster) Moderna COVID-19 Vaccine (Low Dose Booster) Unknown Completed [facility] Afluria single dose Afluria single dose Unknown Completed [facility] Afluria single dose Afluria single dose Unknown Completed [facility] Afluria Afluria Unknown Completed [facility] Afluria Afluria Unknown Completed [facility] Flucelvax - single dose syringe Flucelvax - single dose syringe Unknown Completed [facility] Td Td Unknown Com[facility] COVID-[facility] Vaccine (Low Dose Booster) Moderna COVID-19 Vaccine (Low Dose Booster) Unknown Completed [facility] Afluria single dose Afluria single dose Unknown Completed [facility] Afluria single dose Afluria single dose Unknown Completed [facility] Afluria Afluria Unknown Completed [facility] Afluria Afluria Unknown Completed [facility] Flucelvax - single dose syringe Flucelvax - single dose syringe Unknown Completed [facility] Td Td Unknown Com[facility] COVID-[facility] Vaccine (Low Dose Booster) Moderna COVID-19 Vaccine (Low Dose Booster) Unknown Completed [facility] Afluria single dose Afluria single dose Unknown Completed [facility] Afluria single dose Afluria single dose Unknown Completed [facility] Afluria Afluria Unknown Completed [facility] Afluria Afluria Unknown Completed [facility] Flucelvax - single dose syringe Flucelvax - single dose syringe Unknown Completed [facility] Td Td Unknown Completed [facility] Moderna COVID-19 Vaccine (Low Dose Booster) Moderna COVID-19 Vaccine (Low Dose Booster) Unknown Completed [facility] Afluria single dose Afluria single dose Unknown Completed [facility] Afluria single dose Afluria single dose Unknown Completed [facility] Afluria Afluria Unknown Completed [facility] Afluria Afluria Unknown Completed [facility] Flucelvax - single dose syringe Flucelvax - single dose syringe Unknown Completed [facility] Td Td Unknown [facility] Vacc[facility] (Low Dose Booster) Moderna COVID-19 Vaccine (Low Dose Booster) Unknown Completed [facility] Afluria single dose Afluria single dose Unknown Completed [facility] Afluria single dose Afluria single dose Unknown Completed [facility] Fluarix Fluarix Unknown Completed [facility] Afluria Afluria Unknown Completed [facility] Afluria Afluria Unknown Completed [facility] Flucelvax - single dose syringe Flucelvax - single dose syringe Unknown Completed [facility] Td Td Unknown [facility] [facility] Moderna COVID-19 Vaccine (Low Dose Booster) Moderna COVID-19 Vaccine (Low Dose Booster) Unknown Completed [facility] Afluria single dose Afluria single dose Unknown Completed [facility] Afluria single dose Afluria single dose Unknown Completed [facility] Fluarix Fluarix Unknown Completed [facility] Afluria Afluria Unknown Completed [facility] Afluria Afluria Unknown Completed [facility] Flucelvax - single dose syringe Flucelvax - single dose syringe Unknown Completed [facility] Td Td Unknown [facility] Dose Booster) Moderna COVID-19 Vaccine (Low Dose Booster) Unknown Completed [facility] Afluria single dose Afluria single dose Unknown Completed [facility] Afluria single dose Afluria single dose Unknown Completed [facility] Fluarix Fluarix Unknown Completed [facility] Afluria Afluria Unknown Completed [facility] Afluria Afluria Unknown Completed [facility] Flucelvax - single dose syringe Flucelvax - single dose syringe Unknown Completed [facility] Td Td Unknown Completed [facility] Moderna COVID-19 Vaccine (Low Dose Booster) Moderna COVID-19 Vaccine (Low Dose Booster) Unknown Completed [facility] Afluria single dose Afluria single dose Unknown Completed [facility] Afluria single dose Afluria single dose Unknown Completed [facility] Fluarix Fluarix Unknown Completed [facility] Afluria Afluria Unknown Completed [facility] Afluria Afluria Unknown Completed [facility] Flucelvax - single dose syringe Flucelvax - single dose syringe Unknown Completed [facility] Td Td Unknown Completed [facility] Moderna COVID-19 Vaccine (Low Dose Booster) Moderna COVID-19 Vaccine (Low Dose Booster) Unknown Completed [facility] Afluria (IIV4) - 3 years and older - SDS - 0.5mL Afluria (IIV4) - 3 years and older - SDS - 0.5mL Unknown Completed [facility] Afluria (IIV4) - 3 years and older - SDS - 0.5mL Afluria (IIV4) - 3 years and older - SDS - 0.5mL Unknown Completed [facility] Fluarix (IIV4) - SDS - 0.5mL Fluarix (IIV4) - SDS - 0.5mL Unknown Completed [facility] Afluria Afluria Unknown Completed [facility] Afluria Afluria Unknown Completed [facility] Flucelvax (ccIIV4) - SDS - 0.5mL Flucelvax (ccIIV4) - SDS - 0.5mL Unknown Completed [facility] Td Td Unknown Completed [facility] Moderna COVID-19 Vaccine (Low Dose Booster) Moderna COVID-19 Vaccine (Low Dose Booster) Unknown Completed [facility] Afluria (IIV4) - 3 years and older - SDS - 0.5mL Afluria (IIV4) - 3 years and older - SDS - 0.5mL Unknown Completed [facility] Afluria (IIV4) - 3 years and older - SDS - 0.5mL Afluria (IIV4) - 3 years and older - SDS - 0.5mL Unknown Completed [facility] Fluarix (IIV4) - SDS - 0.5mL Fluarix (IIV4) - SDS - 0.5mL Unknown Completed [facility] Afluria Afluria Unknown Completed [facility] Afluria Afluria Unknown Completed [facility] Flucelvax (ccIIV4) - SDS - 0.5mL Flucelvax (ccIIV4) - SDS - 0.5mL Unknown Completed [facility] Td Td Unknown Completed [facility] Moderna COVID-19 Vaccine (Low Dose Booster) Moderna COVID-19 Vaccine (Low Dose Booster) Unknown Completed [facility] Afluria (IIV4) - 3 years and older - SDS - 0.5mL Afluria (IIV4) - 3 years and older - SDS - 0.5mL Unknown Completed [facility] Afluria (IIV4) - 3 years and older - SDS - 0.5mL Afluria (IIV4) - 3 years and older - SDS - 0.5mL Unknown Completed [facility] Fluarix (IIV4) - SDS - 0.5mL Fluarix (IIV4) - SDS - 0.5mL Unknown Completed [facility] Afluria Afluria Unknown Completed [facility] Afluria Afluria Unknown Completed [facility] Flucelvax (ccIIV4) - SDS - 0.5mL Flucelvax (ccIIV4) - SDS - 0.5mL Unknown Completed [facility] Td Td Unknown Completed [facility] Moderna COVID-19 Vaccine (Low Dose Booster) Moderna COVID-19 Vaccine (Low Dose Booster) Unknown Completed [facility] Afluria (IIV4) - 3 years and older - SDS - 0.5mL Afluria (IIV4) - 3 years and older - SDS - 0.5mL Unknown Completed [facility] Afluria (IIV4) - 3 years and older - SDS - 0.5mL Afluria (IIV4) - 3 years and older - SDS - 0.5mL Unknown Completed [facility] Fluarix (IIV4) - SDS - 0.5mL Fluarix (IIV4) - SDS - 0.5mL Unknown Completed [facility] Afluria Afluria Unknown Completed [facility] Afluria Afluria Unknown Completed [facility] Flucelvax (ccIIV4) - SDS - 0.5mL Flucelvax (ccIIV4) - SDS - 0.5mL Unknown Completed [facility] Td Td Unknown Completed [facility] Moderna COVID-19 Vaccine (Low Dose Booster) Moderna COVID-19 Vaccine (Low Dose Booster) Unknown Completed [facility] Afluria (IIV4) - 3 years and older - SDS - 0.5mL Afluria (IIV4) - 3 years and older - SDS - 0.5mL Unknown Completed [facility] Afluria (IIV4) - 3 years and older - SDS - 0.5mL Afluria (IIV4) - 3 years and older - SDS - 0.5mL Unknown Completed [facility] Fluarix (IIV4) - SDS - 0.5mL Fluarix (IIV4) - SDS - 0.5mL Unknown Completed [facility] Afluria Afluria Unknown Completed [facility] Afluria Afluria Unknown Completed [facility] Flucelvax (ccIIV4) - SDS - 0.5mL Flucelvax (ccIIV4) - SDS - 0.5mL Unknown Completed [facility] Td Td Unknown Completed [facility] Moderna COVID-19 Vaccine (Low Dose Booster) Moderna COVID-19 Vaccine (Low Dose Booster) Unknown Completed [facility] Afluria (IIV4) - 3 years and older - SDS - 0.5mL Afluria (IIV4) - 3 years and older - SDS - 0.5mL Unknown Completed [facility] Afluria (IIV4) - 3 years and older - SDS - 0.5mL Afluria (IIV4) - 3 years and older - SDS - 0.5mL Unknown Completed [facility] Fluarix (IIV4) - SDS - 0.5mL Fluarix (IIV4) - SDS - 0.5mL Unknown Completed [facility] Afluria Afluria Unknown Completed [facility] Afluria Afluria Unknown Completed [facility] Flucelvax (ccIIV4) - SDS - 0.5mL Flucelvax (ccIIV4) - SDS - 0.5mL Unknown Completed [facility] Td Td Unknown Completed [facility] Moderna COVID-19 Vaccine (Low Dose Booster) Moderna COVID-19 Vaccine (Low Dose Booster) Unknown Completed [facility] Afluria (IIV4) - 3 years and older - SDS - 0.5mL Afluria (IIV4) - 3 years and older - SDS - 0.5mL Unknown Completed [facility] Afluria (IIV4) - 3 years and older - SDS - 0.5mL Afluria (IIV4) - 3 years and older - SDS - 0.5mL Unknown Completed [facility] Fluarix (IIV4) - SDS - 0.5mL Fluarix (IIV4) - SDS - 0.5mL Unknown Completed [facility] Afluria Afluria Unknown Completed [facility] Afluria Afluria Unknown Completed [facility] Flucelvax (ccIIV4) - SDS - 0.5mL Flucelvax (ccIIV4) - SDS - 0.5mL Unknown Completed [facility] Td Td Unknown Completed [facility] Moderna COVID-19 Vaccine (Low Dose Booster) Moderna COVID-19 Vaccine (Low Dose Booster) Unknown Completed [facility] Afluria (IIV4) - 3 years and older - SDS - 0.5mL Afluria (IIV4) - 3 years and older - SDS - 0.5mL Unknown Completed [facility] Afluria (IIV4) - 3 years and older - SDS - 0.5mL Afluria (IIV4) - 3 years and older - SDS - 0.5mL Unknown Completed [facility] Fluarix (IIV4) - SDS - 0.5mL Fluarix (IIV4) - SDS - 0.5mL Unknown Completed [facility] Afluria Afluria Unknown Completed [facility] Afluria Afluria Unknown Completed [facility] Flucelvax (ccIIV4) - SDS - 0.5mL Flucelvax (ccIIV4) - SDS - 0.5mL Unknown Completed [facility] Td Td Unknown Completed [facility] Moderna COVID-19 Vaccine (Low Dose Booster) Moderna COVID-19 Vaccine (Low Dose Booster) Unknown Completed [facility] Afluria (IIV4) - 3 years and older - SDS - 0.5mL Afluria (IIV4) - 3 years and older - SDS - 0.5mL Unknown Completed [facility] Afluria (IIV4) - 3 years and older - SDS - 0.5mL Afluria (IIV4) - 3 years and older - SDS - 0.5mL Unknown Completed [facility] Fluarix (IIV4) - SDS - 0.5mL Fluarix (IIV4) - SDS - 0.5mL Unknown Completed [facility] Afluria Afluria Unknown Completed [facility] Afluria Afluria Unknown Completed [facility] Flucelvax (ccIIV4) - SDS - 0.5mL Flucelvax (ccIIV4) - SDS - 0.5mL Unknown Completed [facility] Td Td Unknown Completed [facility] Moderna COVID-19 Vaccine (Low Dose Booster) Moderna COVID-19 Vaccine (Low Dose Booster) Unknown Completed [facility] Afluria (IIV4) - 3 years and older - SDS - 0.5mL Afluria (IIV4) - 3 years and older - SDS - 0.5mL Unknown Completed [facility] Afluria (IIV4) - 3 years and older - SDS - 0.5mL Afluria (IIV4) - 3 years and older - SDS - 0.5mL Unknown Completed [facility] Fluarix (IIV4) - SDS - 0.5mL Fluarix (IIV4) - SDS - 0.5mL Unknown Completed [facility] Afluria Afluria Unknown Completed [facility] Afluria Afluria Unknown Completed [facility] Flucelvax (ccIIV4) - SDS - 0.5mL Flucelvax (ccIIV4) - SDS - 0.5mL Unknown Completed [facility] Td Td Unknown Completed [facility] Moderna COVID-19 Vaccine (Low Dose Booster) Moderna COVID-19 Vaccine (Low Dose Booster) Unknown Completed [facility] Afluria (IIV4) - 3 years and older - SDS - 0.5mL Afluria (IIV4) - 3 years and older - SDS - 0.5mL Unknown Completed [facility] Afluria (IIV4) - 3 years and older - SDS - 0.5mL Afluria (IIV4) - 3 years and older - SDS - 0.5mL Unknown Completed [facility] Fluarix (IIV4) - SDS - 0.5mL Fluarix (IIV4) - SDS - 0.5mL Unknown Completed [facility] Afluria Afluria Unknown [facility] Afluria Afluria Unknown Completed [facility] Flucelvax (ccIIV4) - SDS - 0.5mL Flucelvax (ccIIV4) - SDS - 0.5mL Unknown Completed [facility] Td Td Unknown Completed [facility] MODERNA COVID-19 VACCINE (LOW DOSE BOOSTER) MODERNA COVID-19 VACCINE (LOW DOSE BOOSTER) Unknown Completed [facility] Afluria (IIV4) - 3 years and older - SDS - 0.5mL Afluria (IIV4) - 3 years and older - SDS - 0.5mL Unknown Completed [facility] Afluria (IIV4) - 3 years and older - SDS - 0.5mL Afluria (IIV4) - 3 years and older - SDS - 0.5mL Unknown Completed [facility] Fluarix (IIV4) - SDS - 0.5mL Fluarix (IIV4) - SDS - 0.5mL Unknown Completed [facility] Afluria Afluria Unknown Completed [facility] Afluria Afluria Unknown Completed [facility] Flucelvax (ccIIV4) - SDS - 0.5mL Flucelvax (ccIIV4) - SDS - 0.5mL Unknown Completed [facility] Td [facility] MODERNA COVID-19 VACCINE (LOW DOSE BOOSTER) Unknown Completed [facility] Afluria (IIV4) - 3 years and older - SDS - 0.5mL Afluria (IIV4) - 3 years and older - SDS - 0.5mL Unknown Completed [facility] Afluria (IIV4) - 3 years and older - SDS - 0.5mL Afluria (IIV4) - 3 years and older - SDS - 0.5mL Unknown Completed [facility] Fluarix (IIV4) - SDS - 0.5mL Fluarix (IIV4) - SDS - 0.5mL Unknown Completed [facility] Afluria Afluria Unknown Completed [facility] Afluria Afluria Unknown Completed [facility] Flucelvax (ccIIV4) - SDS - 0.5mL Flucelvax (ccIIV4) - SDS - 0.5mL Unknown Completed [facility] Td Td Unknown Completed [facility] MODERNA COVID-19 VACCINE (LOW DOSE BOOSTER) MODERNA COVID-19 VACCINE (LOW DOSE BOOSTER) Unknown Completed [facility] Afluria (IIV4) - 3 years and older - SDS - 0.5mL Afluria (IIV4) - 3 years and older - SDS - 0.5mL Unknown Completed [facility] Afluria (IIV4) - 3 years and older - SDS - 0.5mL Afluria (IIV4) - 3 years and older - SDS - 0.5mL Unknown Completed [facility] Fluarix (IIV4) - SDS - 0.5mL Fluarix (IIV4) - SDS - 0.5mL Unknown Completed [facility] Afluria Afluria Unknown Completed [facility] Afluria Afluria Unknown Completed [facility] Flucelvax (ccIIV4) - SDS - 0.5mL Flucelvax (ccIIV4) - SDS - 0.5mL Unknown Completed [facility] Td Td Unknown Completed [facility] Vital Signs Vital Name Observation Time Observation Value Comments S ource height 2024-01-04 14:00:00 66.5 [in_i] Comm on [facility] weight 2024-01-04 14:00:00 296 [lb_av] Comm on [facility] bmi 2024-01-04 14:00:00 47.05 kg/m2 Comm on [facility] 2023-10-29 09:30:00 66.5 [in_i] Comm on [facility] weight 2023-10-29 09:30:00 286 [lb_av] Comm on [facility] bmi 2023-10-29 09:30:00 45.47 kg/m2 Comm on [facility] 2023-10-12 09:00:00 66.5 [in_i] Comm on [facility] weight 2023-10-12 09:00:00 298 [lb_av] Comm on [facility] temperature 2023-10-12 09:00:00 97.4 [degF] Com mon [facility] bmi 2023-10-12 09:00:00 47.37 kg/m2 Comm on [facility] oximetry 2023-10-12 09:00:00 97 % Commo n [facility] respiratory rate 2023-10-12 09:00:00 17 /min Common [facility] blood pressure systolic 2023-10-12 09:00:00 130 mm[Hg[facility] blood pressure diastolic 2023-10-12 09:00:00 74 mm[Hg] Common [facility] height 2023-07-11 14:00:00 66.5 [in_i] Comm on [facility] weight 2023-07-11 14:00:00 300 [lb_av] Comm on [facility] temperature 2023-07-11 14:00:00 97.9 [degF] Com mon [facility] bmi 2023-07-11 14:00:00 47.69 kg/m2 Comm on [facility] oximetry 2023-07-11 14:00:00 97 % Commo n [facility] respiratory rate 2023-07-11 14:00:00 17 /min Common [facility] blood pressure systolic 2023-07-11 14:00:00 138 mm[Hg] [facility] blood pressure diastolic 2023-07-11 14:00:00 80 mm[Hg] Common [facility] height 2023-03-27 16:40:00 66.5 [in_i] Comm on [facility] weight 2023-03-27 16:40:00 306.2 [lb_av] Co mmon [facility] temperature 2023-03-27 16:40:00 98.0 [degF] Com mon [facility] bmi 2023-03-27 16:40:00 48.68 kg/m2 Comm on [facility] oximetry 2023-03-27 16:40:00 96 % Commo n [facility] respiratory rate 2023-03-27 16:40:00 16 /min [facility] blood pressure systolic 2023-03-27 16:40:00 142 mm[Hg] [facility] blood pressure diastolic 2023-03-27 16:40:00 79 mm[Hg] [facility] height 2023-03-22 11:00:00 66.5 [in_i] Comm on [facility] weight 2023-03-22 11:00:00 305 [lb_av] Comm on [facility] temperature 2023-03-22 11:00:00 98.0 [degF] Com mon [facility] bmi 2023-03-22 11:00:00 48.49 kg/m2 Comm on [facility] oximetry 2023-03-22 11:00:00 97 % Commo n [facility] respiratory rate 2023-03-22 11:00:00 17 /min [facility] blood pressure systolic 2023-03-22 11:00:00 134 mm[Hg] [facility] blood pressure diastolic 2023-03-22 11:00:00 78 mm[Hg] [facility] Respiratory rate 2023-03-08 13:48:00 15 /min [facility] Oxygen saturation in Arterial blood by Pulse oximetry 2023-03-08 13:48:00 99 /min [facility] Systolic blood pressure 2023-03-08 13:46:00 99 mm[Hg] [facility] Diastolic blood pressure 2023-03-08 13:46:00 57 mm[Hg] [facility] Body temperature 2023-03-08 13:31:00 36.11 Daniela [facility] Body height 2023-03-01 17:00:00 170.2 cm [facility] Body weight 2023-03-01 17:00:00 142.883 kg [facility] BMI 2023-03-01 17:00:00 49.34 kg/m2 [facility] Respiratory rate 2023-03-08 13:48:00 15 /min [facility] Oxygen saturation in Arterial blood by Pulse oximetry 2023-03-08 13:48:00 99 /min [facility] Systolic blood pressure 2023-03-08 13:46:00 99 mm[Hg] [facility] Diastolic blood pressure 2023-03-08 13:46:00 57 mm[Hg] [facility] Body temperature 2023-03-08 13:31:00 36.11 Daniela [facility] Body height 2023-03-01 17:00:00 170.2 cm [facility] Body weight 2023-03-01 17:00:00 142.883 kg [facility] BMI 2023-03-01 17:00:00 49.34 kg/m2 [facility] Systolic blood pressure 2023-02-22 15:01:00 111 mm[Hg] [facility] Diastolic blood pressure 2023-02-22 15:01:00 83 mm[Hg] [facility] Heart rate 2023-02-22 15:01:00 56 /min [facility] Res[facility] rate 2023-02-22 15:01:00 22 /min [facility] Oxygen saturation in Arterial blood by Pulse oximetry 2023-02-22 15:01:00 96 /min [facility] Body temperature 2023-02-22 14:47:00 36.67 Daniela [facility] Body height 2023-02-13 21:00:00 170.2 cm [facility] Body weight 2023-02-13 21:00:00 143.79 kg [facility] BMI 2023-02-13 21:00:00 49.65 kg/m2 [facility] Systolic blood pressure 2023-02-22 13:27:00 123 mm[Hg] [facility] Diastolic blood pressure 2023-02-22 13:27:00 66 mm[Hg] [facility] Heart rate 2023-02-22 13:27:00 64 /min [facility] Body temperature 2023-02-22 13:27:00 36.22 Daniela [facility] Respiratory rate 2023-02-22 13:27:00 18 /min [facility] Oxygen saturation in Arterial blood by Pulse oximetry 2023-02-22 13:27:00 98 /min [facility] Body height 2023-02-13 21:00:00 170.2 cm [facility] Body weight 2023-02-13 21:00:00 143.79 kg [facility] BMI 2023-02-13 21:00:00 49.65 kg/m2 [facility] height 2023-02-08 11:40:00 67 [in_i] Commo n [facility] weight 2023-02-08 11:40:00 327 [lb_av] Comm on [facility] bmi 2023-02-08 11:40:00 51.21 kg/m2 Comm on [facility] Systolic blood pressure 2022-10-30 21:21:00 139 mm[Hg] [facility] Diastolic blood pressure 2022-10-30 21:21:00 82 mm[Hg] [facility] Heart rate 2022-10-30 21:21:00 60 /min [facility] Respiratory rate 2022-10-30 21:21:00 19 /min [facility] Body height 2022-10-30 21:21:00 170.2 cm [facility] Body weight 2022-10-30 21:21:00 144.244 kg [facility] BMI 2022-10-30 21:21:00 49.81 kg/m2 [facility] Oxygen saturation in Arterial blood by Pulse oximetry 2022-10-30 21:21:00 96 /min [facility] height 2022-09-18 11:00:00 67 [in_i] Commo n [facility] weight 2022-09-18 11:00:00 327.8 [lb_av] Co mmon [facility] temperature 2022-09-18 11:00:00 97.0 [degF] Com mon [facility] bmi 2022-09-18 11:00:00 51.34 kg/m2 Comm on [facility] oximetry 2022-09-18 11:00:00 98 % Commo n [facility] respiratory rate 2022-09-18 11:00:00 15 /min [facility] blood pressure systolic 2022-09-18 11:00:00 123 mm[Hg] Common [facility] blood pressure diastolic 2022-09-18 11:00:00 74 mm[Hg] [facility] height 2022-08-28 14:40:00 67 [in_i] Commo n [facility] weight 2022-08-28 14:40:00 329 [lb_av] Comm on [facility] bmi 2022-08-28 14:40:00 51.52 kg/m2 Comm on [facility] oximetry 2022-08-28 14:40:00 96 % Commo n [facility] respiratory rate 2022-08-28 14:40:00 25 /min [facility] blood pressure systolic 2022-08-28 14:40:00 119 mm[Hg] [facility] blood pressure diastolic 2022-08-28 14:40:00 59 mm[Hg] Common [facility] height 2022-07-11 11:00:00 67 [in_i] Commo n [facility] weight 2022-07-11 11:00:00 318.6 [lb_av] Co mmon [facility] temperature 2022-07-11 11:00:00 97.3 [degF] Com [facility] bmi 2022-07-11 11:00:00 49.89 kg/m2 Comm on [facility] oximetry 2022-07-11 11:00:00 99 % Commo n [facility] respiratory rate 2022-07-11 11:00:00 15 /min Common [facility] blood pressure systolic 2022-07-11 11:00:00 129 mm[Hg] Common [facility] blood pressure diastolic 2022-07-11 11:00:00 76 mm[Hg] [facility] Systolic blood pressure 2022-04-20 18:36:00 95 mm[Hg] [facility] Diastolic blood pressure 2022-04-20 18:36:00 66 mm[Hg] [facility] Heart rate 2022-04-20 18:36:00 60 /min [facility] Body temperature 2022-04-20 18:36:00 36.67 Daniela [facility] Respiratory rate 2022-04-20 18:36:00 18 /min [facility] Body height 2022-04-20 18:36:00 170.2 cm [facility] Body weight 2022-04-20 18:36:00 145.151 kg [facility] BMI 2022-04-20 18:36:00 50.12 kg/m2 [facility] height 2022-04-10 10:40:00 67 [in_i] Commo n [facility] weight 2022-04-10 10:40:00 318.6 [lb_av] Co mmon [facility] temperature 2022-04-10 10:40:00 97.7 [degF] Com mon [facility] bmi 2022-04-10 10:40:00 49.89 kg/m2 Comm on [facility] oximetry 2022-04-10 10:40:00 98 % Commo n [facility] respiratory rate 2022-04-10 10:40:00 17 /min Common [facility] blood pressure systolic 2022-04-10 10:40:00 127 mm[Hg] Common [facility] blood pressure diastolic 2022-04-10 10:40:00 79 mm[Hg] [facility] height 2022-01-02 15:20:00 67 [in_i] Commo n [facility] weight 2022-01-02 15:20:00 317.2 [lb_av] Co mmon [facility] temperature 2022-01-02 15:20:00 96.4 [degF] Com mon [facility] bmi 2022-01-02 15:20:00 49.68 kg/m2 Comm on [facility] oximetry 2022-01-02 15:20:00 97 % Commo n [facility] respiratory rate 2022-01-02 15:20:00 15 /min [facility] blood pressure systolic 2022-01-02 15:20:00 96 mm[Hg] Common [facility] blood pressure diastolic 2022-01-02 15:20:00 60 mm[Hg] Common [facility] height 2021-12-14 10:00:00 67 [in_i] Commo n [facility] weight 2021-12-14 10:00:00 320 [lb_av] Comm on [facility] temperature 2021-12-14 10:00:00 96 [degF] Comm on [facility] bmi 2021-12-14 10:00:00 50.11 kg/m2 Comm on [facility] height 2021-11-10 09:20:00 67 [in_i] Commo n [facility] weight 2021-11-10 09:20:00 322 [lb_av] Comm on [facility] temperature 2021-11-10 09:20:00 97.6 [degF] Com [facility] bmi 2021-11-10 09:20:00 50.43 kg/m2 Comm on [facility] oximetry 2021-11-10 09:20:00 98 % Commo n [facility] blood pressure systolic 2021-11-10 09:20:00 131 mm[Hg] [facility] blood pressure diastolic 2021-11-10 09:20:00 82 mm[Hg] [facility] height 2021-10-07 11:20:00 67 [in_i] Commo n [facility] weight 2021-10-07 11:20:00 319.8 [lb_av] Co mmon [facility] temperature 2021-10-07 11:20:00 97.2 [degF] Com mon [facility] bmi 2021-10-07 11:20:00 50.08 kg/m2 Comm on [facility] oximetry 2021-10-07 11:20:00 97 % Commo n [facility] respiratory rate 2021-10-07 11:20:00 18 /min [facility] blood pressure systolic 2021-10-07 11:20:00 111 mm[Hg] [facility] blood pressure diastolic 2021-10-07 11:20:00 73 mm[Hg] [facility] Procedures Procedure Date / Time Performed Performing Clinician Source PHACOEMULSIFICATION OF CATARACT WITH INTRAOCULAR LENS IMPLANT 2023-03-08 12:53:00 Prasad Alarcon [facility] POCT GLUCOSE (AUTOMATED) 2023-03-08 12:15:00 Prasad Alarcon [facility] POCT GLUCOSE (AUTOMATED) 2023-03-08 12:15:00 Prasad Alarcon [facility] PATIENT QUESTIONNAIRE 2023-03-08 05:01:00 Doctor Unassigned, [place] [facility] PHACOEMULSIFICATION OF CATARACT WITH INTRAOCULAR LENS IMPLANT 2023-02-22 14:12:00 Prasad Alarcon [facility] POCT GLUCOSE (AUTOMATED) 2023-02-22 13:26:00 Prasad Alarcon [facility] POCT GLUCOSE (AUTOMATED) 2023-02-22 13:26:00 Neema, Prasad Filiberto [facility] PATIENT QUESTIONNAIRE 2023-02-22 05:01:00 Doctor Unassigned[place] [facility] 2023-02-22 05:01:00 Doctor Unassigned, [place] [facility] PATIENT QUESTIONNAIRE 2023-02-22 05:01:00 Doctor Unassigned, [place] [facility] 2023-02-22 05:01:00 Doctor Unassigned, [place] [facility] ASSIGNMENT OF BENEFITS 2023-02-13 16:19:16 Doctor Unassigned, [place] [facility] Encounters Start Date/Time End Date/Time Encounter Type Admission Type Attending [facility] Care Department Encounter ID Source 2023-10-11 13:33:00 Outpatient Xochilt eL STLMLC STLMLC [id number] [facility] 2023-03-22 10:41:00 Outpatient LeXochilt vidal STLMLC STLMLC [id number] [facility] 2023-02-28 11:02:00 Outpatient LeXochilt vidal STLMLC STLMLC [id number] [facility] 2023-02-08 11:09:00 Outpatient Xochilt Le STLMLC STLMLC [id number] [facility] 2023-01-02 09:02:01 Outpatient AdriSofi STLMLC STLMLC [id number] [facility] 2023-01-01 09:08:00 Outpatient AdriJakeSofi STLMLC STLMLC [id number] [facility] 2022-09-14 13:58:00 Outpatient Shabazz, Na STLMLC STLMLC [id number] [facility] 2022-07-07 10:36:00 Outpatient Shabazz, Na STLMLC STLMLC [id number] [facility] 2022-04-10 10:21:15 Outpatient Mele, Na STLMLC STLMLC [id number] [facility] 2022-04-06 11:08:00 Outpatient Mele, Na STLMLC STLMLC [id number] [facility] 2022-01-25 10:27:01 Outpatient Mele Na STLMLC STLMLC [id number] [facility] 2022-01-02 16:38:01 Outpatient Shabazz, Na STLMLC STLMLC [id number] [facility] 2021-12-21 14:25:40 Outpatient Mele Na STLMLC STLMLC [id number] [facility] 2021-12-21 14:24:21 Outpatient Halle Shabazz STLMLC STLMLC [id number] [facility] 2021-12-21 14:13:58 Outpatient Mele, Halle STLMLC STLMLC [id number] [facility] 2021-12-21 14:12:46 Outpatient Mele Na STLMLC STLMLC [id number] [facility] 2021-12-21 13:36:34 Outpatient Halle Shabazz STLMLC STLMLC [id number] [facility] 2021-12-21 13:35:25 Outpatient Mele, Na STLMLC STLMLC [id number] [facility] 2021-12-21 13:20:19 Outpatient Shabazz, Na STLMLC STLMLC [id number] [facility] 2021-12-21 13:19:52 Outpatient Shabazz, Na STLMLC STLMLC [id number] [facility] 2021-12-21 12:41:36 Outpatient Shabazz, Na STLMLC STLMLC [id number] [facility] 2021-12-21 12:26:03 Outpatient Shabazz, Na STLMLC STLMLC [id number] [facility] 2021-12-21 12:18:00 Outpatient Shabazz, Na STLMLC STLMLC [id number] [facility] 2021-12-21 11:54:00 Outpatient Shabazz, Na STLMLC STLMLC [id number] [facility] 2021-12-21 11:53:41 Outpatient Shabazz, Na STLMLC STLMLC [id number] [facility] 2021-12-21 11:53:09 Outpatient Shabazz, Na STLMLC STLMLC [id number] [facility] 2021-12-21 11:35:33 Outpatient Shabazz, Na STLMLC STLMLC [id number] [facility] 2021-12-21 11:20:32 Outpatient Shabazz, Na STLMLC STLMLC [id number] [facility] 2021-12-21 11:18:09 Outpatient Shabazz, Na STLMLC STLMLC [id number] [facility] 2024-01-04 00:00:00 2024-01-04 00:00:00 OFFICE VISIT ESTAB PT LEVEL 3 STLMLC STLMLC [id number] [facility] 2024-01-04 00:00:00 2024-01-04 00:00:00 (TEL) STLMLC STLMLC [id number] [facility] 2023-12-03 00:00:00 2023-12-03 00:00:00 (TEL) STLMLC STLMLC [id number] [facility] 2023-11-23 00:00:00 2023-11-23 00:00:00 (TEL) STLMLC STLMLC [id number] [facility] 2023-11-22 00:00:00 2023-11-22 00:00:00 (TEL) STLMLC STLMLC [id number] [facility] 2023-10-29 00:00:00 2023-10-29 00:00:00 OFFICE VISIT ESTAB PT LEVEL 4 STLMLC STLMLC [id number] [facility] 2023-10-29 00:00:00 2023-10-29 00:00:00 (TEL) STLMLC STLMLC [id number] [facility] 2023-10-12 00:00:00 2023-10-12 00:00:00 OFFICE VISIT ESTAB PT LEVEL 4 STLMLC STLMLC [id number] [facility] 2023-10-10 00:00:00 2023-10-10 00:00:00 (TEL) STLMLC STLMLC [id number] [facility] 2023-08-29 00:00:00 2023-08-29 00:00:00 (TEL) STLMLC STLMLC [id number] [facility] 2023-08-17 00:00:00 2023-08-17 00:00:00 (TEL) STLMLC STLMLC [id number] [facility] 2023-07-16 00:00:00 2023-07-16 00:00:00 Outpatient GC_GCBZW_Ro man_M [facility] [id number] [facility] 2023-07-11 00:00:00 2023-07-11 00:00:00 OFFICE VISIT ESTAB PT LEVEL 4 STLMLC STLMLC [id number] [facility] 2023-07-09 00:00:00 2023-07-09 00:00:00 (TEL) STLMLC STLMLC [id number] [facility] 2023-07-02 00:00:00 2023-07-02 00:00:00 (TEL) STLMLC STLMLC [id number] [facility] 2023-06-12 00:00:00 2023-06-12 00:00:00 (TEL) STLMLC STLMLC [id number] [facility] 2023-05-03 00:00:00 2023-05-03 00:00:00 (TEL) STLMLC STLMLC [id number] [facility] 2023-04-24 00:00:00 2023-04-24 00:00:00 (TEL) STLMLC STLMLC [id number] [facility] 2023-04-20 10:30:00 2023-04-20 10:30:00 Outpatient OPAL URENA [facility] [id number] [facility] 2023-04-20 10:30:00 2023-04-20 10:30:00 Outpatient Alisha GARDNER OPAL [facility] [id number] [facility] 2023-03-27 00:00:00 2023-03-27 00:00:00 OFFICE VISIT ESTAB PT LEVEL 4 STLMLC STLMLC [id number] [facility] 2023-03-23 00:00:00 2023-03-23 00:00:00 (TEL) STLMLC STLMLC [id number] [facility] 2023-03-22 00:00:00 2023-03-22 00:00:00 OFFICE VISIT ESTAB PT LEVEL 4 STLMLC STLMLC [id number] [facility] 2023-03-08 08:34:00 2023-03-08 09:09:00 Surgery Prasad Alarcon [facility] 1.2.840.114 350.1.13.10 4.2.7.2.[id number] [facility] 2023-03-08 07:01:00 2023-03-08 09:08:00 Outpatient PRASAD MANZO NMSHAUN OPH [id number] [facility] 2023-03-08 07:01:00 2023-03-08 09:08:00 Hospital Encounter Prasad Alarcon [facility] 1.2.840.114 350.1.13.10 4.2.7.2.[id number] [facility] 2023-03-08 00:00:00 2023-03-08 00:00:00 Orders Only Doctor Unassigned, [place] [facility] 1.2.840.114 350.1.13.10 4.2.7.2.[id number] [facility] 2023-02-22 08:07:00 2023-02-22 10:09:00 Outpatient R PRASAD ALARCON [facility] OPH [id number] [facility] 2023-02-22 08:07:00 2023-02-22 10:09:00 Hospital Encounter Prasad Alarcon [facility] 1.2.840.114 350.1.13.10 4.2.7.2.[id number] [facility] 2023-02-22 09:06:00 2023-02-22 09:41:00 Surgery Prasad Alarcon [facility] 1.2.840.114 350.1.13.10 4.2.7.2.[id number] [facility] 2023-02-13 00:00:00 2023-02-13 00:00:00 Orders Only Doctor Unassigned, [place] [facility] 1.2.840.114 350.1.13.10 4.2.7.2.[id number] [facility] 2023-02-08 00:00:00 2023-02-08 00:00:00 OFFICE VISIT ESTAB PT LEVEL 3 STLMLC STLMLC [id number] [facility] 2023-02-07 00:00:00 2023-02-07 00:00:00 (TEL) STLMLC STLMLC [id number] [facility] 2023-01-23 00:00:00 2023-01-23 00:00:00 (TEL) STLMLC STLMLC [id number] [facility] 2023-01-17 00:00:00 2023-01-17 00:00:00 (TEL) STLMLC STLMLC [id number] [facility] 2023-01-09 00:00:00 2023-01-09 00:00:00 (TEL) STLMLC STLMLC [id number] [facility] 2023-01-02 00:00:00 2023-01-02 00:00:00 (TEL) STLMLC STLMLC [id number] [facility] 2023-01-02 00:00:00 2023-01-02 00:00:00 (TEL) STLMLC STLMLC [id number] [facility] 2022-12-28 00:00:00 2022-12-28 00:00:00 Telephone ChenViviana 1.2.840.114 350.1.13.10 4.2.7.2.[id number] [facility] 2022-11-29 00:00:00 2022-11-29 00:00:00 (TEL) STLMLC STLMLC [id number] [facility] 2022-11-22 00:00:00 2022-11-22 00:00:00 (TEL) STLMLC STLMLC [id number] [facility] 2022-11-17 00:00:00 2022-11-17 00:00:00 (TEL) STLMLC STLMLC [id number] [facility] 2022-11-10 00:00:00 2022-11-10 00:00:00 (TEL) STLMLC STLMLC [id number] [facility] 2022-11-10 00:00:00 2022-11-10 00:00:00 OFFICE VISIT EST PT LEVEL 3 STLMLC STLMLC [id number] [facility] 2022-11-01 00:00:00 2022-11-01 00:00:00 (TEL) STLMLC STLMLC [id number] [facility] 2022-10-31 00:00:00 2022-10-31 00:00:00 (TEL) STLMLC STLMLC [id number] [facility] 2022-10-30 15:30:00 2022-10-30 16:33:07 Outpatient R ASHLEY SINGLETON [facility] [id number] [facility] 2022-10-30 15:30:00 2022-10-30 16:33:07 Office Visit Ashley [facility] 1.2.840.114 350.1.13.10 4.2.7.2.[id number] [facility] 2022-10-09 00:00:00 2022-10-09 00:00:00 (TEL) STLMLC STLMLC [id number] [facility] 2022-09-18 00:00:00 2022-09-18 00:00:00 OFFICE VISIT EST PT LEVEL 3 STLMLC STLMLC [id number] [facility] 2022-08-28 00:00:00 2022-08-28 00:00:00 OFFICE VISIT ESTAB PT LEVEL 2 STLMLC STLMLC [id number] [facility] 2022-07-28 00:00:00 2022-07-28 00:00:00 (TEL) STLMLC STLMLC [id number] [facility] 2022-07-27 00:00:00 2022-07-27 00:00:00 (TEL) STLMLC STLMLC [id number] [facility] 2022-07-11 00:00:00 2022-07-11 00:00:00 OFFICE VISIT ESTAB PT LEVEL 4 STLMLC STLMLC [id number] [facility] 2022-05-31 00:00:00 2022-05-31 00:00:00 (TEL) STLMLC STLMLC [id number] [facility] 2022-05-05 09:04:49 2022-05-05 23:59:00 Outpatient R JOANIEOPAL TORO [facility] [id number] [facility] 2022-05-05 09:04:49 2022-05-05 23:59:00 Hospital Encounter AdOpal toro [facility] 1.2.840.114 350.1.13.10 4.2.7.2.[id number] [facility] 2022-05-02 00:00:00 2022-05-02 00:00:00 Telephone Anny Dailey [facility] 1.2.840.114 350.1.13.10 4.2.7.2.[id number] [facility] 2022-04-20 13:30:00 2022-04-20 14:15:17 Outpatient R ADCORTEZ [facility] [id number] [facility] 2022-04-20 13:30:00 2022-04-20 14:15:17 [facility] 1.2.840.114 350.1.13.10 4.2.7.2.[id number] [facility] 2022-04-20 00:00:00 2022-04-20 00:00:00 (TEL) STLMLC STLMLC [id number] [facility] 2022-04-10 00:00:00 2022-04-10 00:00:00 OFFICE VISIT ESTAB PT LEVEL 4 STLMLC STLMLC [id number] [facility] 2022-03-16 15:30:00 2022-03-16 15:30:00 Outpatient R ADCORTEZ [facility] [id number] [facility] 2022-03-09 00:00:00 2022-03-09 00:00:00 (TEL) STLMLC STLMLC [id number] [facility] 2022-02-06 00:00:00 2022-02-06 00:00:00 (TEL) STLMLC STLMLC [id number] [facility] 2022-01-26 00:00:00 2022-01-26 00:00:00 OFFICE VISIT EST PT LEVEL 3 STLMLC STLMLC [id number] [facility] 2022-01-02 00:00:00 2022-01-02 00:00:00 (TEL) STLMLC STLMLC [id number] [facility] 2022-01-02 00:00:00 2022-01-02 00:00:00 OFFICE VISIT ESTAB PT LEVEL 2 STLMLC STLMLC [id number] [facility] 2021-12-14 00:00:00 2021-12-14 00:00:00 OFFICE VISIT EST PT LEVEL 3 STLMLC STLMLC [id number] [facility] 2021-11-24 00:00:00 2021-11-24 00:00:00 OFFICE VISIT EST PT LEVEL 3 STLMLC STLMLC [id number] [facility] 2021-11-23 00:00:00 2021-11-23 00:00:00 (TEL) STLMLC STLMLC [id number] [facility] 2021-11-21 00:00:00 2021-11-21 00:00:00 (TEL) STLMLC STLMLC [id number] [facility] 2021-11-10 00:00:00 2021-11-10 00:00:00 OFFICE VISIT ESTAB PT LEVEL 4 STLMLC STLMLC [id number] [facility] 2021-10-14 00:00:00 2021-10-14 00:00:00 (TEL) STLMLC STLMLC [id number] [facility] 2021-10-07 00:00:00 2021-10-07 00:00:00 (COVID Inj) COVID Injection STLMLC STLMLC [id number] [facility] 2021-10-07 00:00:00 2021-10-07 00:00:00 OFFICE VISIT ESTAB PT LEVEL 4 STLMLC STLMLC [id number] [facility] 2021-10-06 00:00:00 2021-10-06 00:00:00 (TEL) STLMLC STLMLC [id number] [facility] 2021-09-22 00:00:00 2021-09-22 00:00:00 (TEL) STLMLC STLMLC [id number] [facility] 2021-08-06 05:39:00 2021-08-07 12:45:00 Inpatient Juan Antonio Hookr [facility] TELE [id number] [facility] 2021-08-02 00:00:00 2021-08-02 00:00:00 (TEL) STLMLC STLMLC [id number] [facility] 2021-07-11 00:00:00 2021-07-11 00:00:00 Outpatient STLMLC STLMLC [id number] [facility] 2021-07-05 00:00:00 2021-07-05 00:00:00 Outpatient STLMLC STLMLC [id number] [facility] 2021-06-08 00:00:00 2021-06-08 00:00:00 Outpatient STLMLC STLMLC [id number] [facility] 2021-05-25 00:00:00 2021-05-25 00:00:00 Outpatient STLMLC STLMLC [id number] [facility] 2021-05-17 00:00:00 2021-05-17 00:00:00 Outpatient STLMLC STLMLC [id number] [facility] 2021-04-19 00:00:00 2021-04-19 00:00:00 Outpatient STLMLC STLMLC [id number] [facility] 2021-04-15 00:00:00 2021-04-15 00:00:00 Outpatient STLMLC STLMLC [id number] [facility] 2021-03-31 00:00:00 2021-03-31 00:00:00 Outpatient STLMLC STLMLC [id number] [facility] 2021-03-24 13:35:27 2021-03-24 13:50:27 Clinical Technologist Visit 2, [facility], Opal Reynoso [facility] 1.2.840.114 350.1.13.10 4.2.7.2.[id number] [facility] 2021-03-24 13:35:27 2021-03-24 13:50:27 Clinical Technologist Visit 2, [facility] 1.2.840.114 350.1.13.10 4.2.7.2.686 [id number] 2021-03-24 13:15:00 2021-03-24 13:15:00 [facility] [id number] 2021-03-11 14:23:31 2021-03-11 16:29:07 Office Visit Adum, Opal Reynoso [facility] 1.2.840.114 350.1.13.10 4.2.7.2.[id number] [facility] 2021-03-11 14:23:31 2021-03-11 16:29:07 Office Visit Adum, Opal Reynoso [facility] 1.2.840.114 350.1.13.10 4.2.7.2.686 [id number] 2021-03-11 14:30:00 2021-03-11 14:30:00 Outpatient R ADUM, [facility] [id number] [facility] 2021-03-11 00:00:00 2021-03-11 00:00:00 Orders Only Doctor Unassigned, [place] [facility] 1.2.840.114 350.1.13.10 4.2.7.2.[id number] [facility] 2021-03-10 00:00:00 2021-03-10 00:00:00 Telephone Inga Lazo 1.2.840.114 350.1.13.10 4.2.7.2.[id number] [facility] 2021-02-25 00:00:00 2021-02-25 00:00:00 Outpatient STLMLC STLMLC [id number] [facility] 2021-02-20 00:00:00 2021-02-20 00:00:00 Outpatient STLMLC STLMLC [id number] [facility] 2021-02-15 00:00:00 2021-02-15 00:00:00 Outpatient STLMLC STLMLC [id number] [facility] 2021-02-11 00:00:00 2021-02-11 00:00:00 Outpatient STLMLC STLMLC [id number] [facility] 2021-02-10 00:00:00 2021-02-10 00:00:00 Outpatient STLMLC STLMLC [id number] [facility] 2021-02-09 00:00:00 2021-02-09 00:00:00 Outpatient STLMLC STLMLC [id number] [facility] 2021-02-07 00:00:00 2021-02-07 00:00:00 Outpatient STLMLC STLMLC [id number] [facility] 2021-01-30 16:10:00 2021-01-30 16:10:00 Outpatient [facility] [id number] [facility] 2021-01-29 00:00:00 2021-01-29 00:00:00 Outpatient STLMLC STLMLC [id number] [facility] 2021-01-25 00:00:00 2021-01-25 00:00:00 Outpatient STLMLC STLMLC [id number] [facility] 2021-01-18 00:00:00 2021-01-18 00:00:00 Outpatient STLMLC STLMLC [id number] [facility] 2021-01-02 15:10:00 2021-01-02 15:10:00 Outpatient JESSICA HELTON [facility] [id number] [facility] 2020-12-07 00:00:00 2020-12-07 00:00:00 Outpatient STLMLC STLMLC [id number] [facility] 2020-11-04 00:00:00 2020-11-04 00:00:00 Outpatient STLMLC STLMLC [id number] [facility] 2020-11-03 00:00:00 2020-11-03 00:00:00 Outpatient STLMLC STLMLC [id number] [facility] 2020-09-27 00:00:00 2020-09-27 00:00:00 Outpatient STLMLC STLMLC [id number] [facility] 2020-09-06 00:00:00 2020-09-06 00:00:00 Outpatient [facility] [id number] [facility] 2020-07-06 11:42:00 2020-07-06 11:42:00 [facility] [address] [facility] [id number] [facility] 2020-07-05 10:00:00 2020-07-05 10:00:00 [facility] [address] [facility] [place] [facility] [id number] [facility] 2020-07-02 00:00:00 2020-07-02 00:00:[address] [facility] Bruce [place] [facility] [id number] [facility] 2020-06-14 13:12:00 2020-06-14 13:12:00 [facility] [id number] [facility] 2020-06-01 12:30:00 2020-06-01 23:59:00 Hospital Encounter [facility] [id number] [facility] 2020-06-01 00:00:00 2020-06-01 00:00:00 Outpatient [facility]ENG [facility] [id number] [facility] 2020-05-28 00:00:00 2020-05-28 00:00:[address] [facility] [id number] [facility] 2020-05-27 15:57:00 2020-05-27 15:57:00 [facility] [id number] [facility] 2020-05-11 00:00:00 2020-05-11 00:00:00 Outpatient Alisha [facility]ENG [facility] [facility] [id number] [facility] 2020-05-11 00:00:00 2020-05-11 00:00:00 Telephone Peng Glez [facility] 1.2.840.114 350.1.13.10 4.2.7.2.[id number] [facility] 2020-05-04 13:46:00 2020-05-04 13:46:00 [facility] Medicine [facility] [id number] [facility] 2020-04-29 00:00:00 2020-04-29 00:00:00 [facility] 1.2.840.114 350.1.13.10 4.2.7.2.[id number] [facility] 2020-04-23 00:00:00 2020-04-23 00:00:00 Telephone Peng Glez [facility] 1.2.840.114 350.1.13.10 4.2.7.2.[id number] [facility] 2020-04-21 16:33:00 2020-04-21 16:33:00 [facility] [id number] [facility] 2020-04-01 10:40:00 2020-04-01 10:40:00 [facility] Medicine [facility] Medicine [id number] [facility] 2020-03-08 16:19:00 2020-03-08 16:19:00 [facility] Family Medicine [facility] Medicine [id number] [facility] 2020-03-01 14:28:00 2020-03-01 14:28:00 [facility] Family Medicine [facility] Medicine [id number] [facility] 2020-02-20 08:21:37 2020-02-20 15:48:50 Telemedici ne Visit Peng Glez [facility] Building .2.840.114 350.1.13.10 4.2.7.2.[id number] [facility] 2020-02-20 08:40:00 2020-02-20 08:40:00 Outpatient PENG [facility] [id number] [facility] 2020-01-28 16:24:00 2020-01-28 16:24:00 [facility] Family Medicine [facility] Medicine [id number] [facility] 2020-01-13 00:00:00 2020-01-13 00:00:00 Orders Only Doctor Unassigned, [place] [facility] 1.2.840.114 350.1.13.10 4.2.7.2.[id number] [facility] 2020-01-07 11:21:00 2020-01-07 11:21:[address] [facility] [facility] [id number] [facility] 2020-01-05 14:40:00 2020-01-05 14:40:00 [facility] [id number] [facility] 2019-12-19 11:20:00 2019-12-19 11:20:00 [facility] [facility] [id number] [facility] 2019-11-17 10:40:00 2019-11-17 10:40:00 [facility] [id number] [facility] 2019-11-12 15:22:00 2019-11-12 15:22:00 [facility] [facility] [id number] [facility] 2019-10-13 08:38:00 2019-10-13 08:38:00 [address] [facility] [id number] [facility] 2019-09-25 09:55:00 2019-09-25 09:55:00 [facility] [id number] [facility] 2019-09-12 10:00:00 2019-09-12 10:00:00 [facility] [id number] [facility] 2019-08-21 14:20:00 2019-08-21 14:20:00 [facility] [id number] [facility] 2019-08-14 09:45:00 2019-08-14 09:45:00 [facility] [id number] [facility] 2019-07-23 09:30:00 2019-07-23 09:30:00 [facility] [id number] [facility] 2019-07-21 00:00:00 2019-07-21 00:00:00 Orders Only Doctor Unassigned, [place] [facility] 1.2.840.114 350.1.13.10 4.2.7.2.[id number] [facility] 2019-07-18 13:20:00 2019-07-18 13:20:00 [facility]patient [facility] [id number] [facility] 2019-07-09 00:00:00 2019-07-09 00:00:[address] [facility] 1.2.840.114 350.1.13.10 4.2.7.2.[id number] [facility] 2019-06-20 00:00:00 2019-06-20 00:00:00 Orders Only Doctor Unassigned, [place] [facility] 1.2.840.114 350.1.13.10 4.2.7.2.[id number] [facility] 2019-05-21 13:45:00 2019-05-21 13:45:00 [facility] [facility] [id number] [facility] 2019-05-16 11:30:00 2019-05-16 11:30:00 [facility] [facility] [id number] [facility] 2019-05-13 10:40:00 2019-05-13 10:40:00 [facility]patient [facility] [id number] [facility] 2019-05-08 11:30:00 2019-05-08 11:30:00 [facility] [place] [facility] [id number] [facility] 2019-04-11 00:00:00 2019-04-11 00:00:00 Orders Only Doctor Unassigned, [place] [facility] 1.2.840.114 350.1.13.10 4.2.7.2.[id number] [facility] 2019-03-13 10:40:00 2019-03-13 10:40:00 [facility] Medicine [facility] [id number] [facility] 2019-02-19 11:30:00 2019-02-19 11:30:00 [facility] [place] [facility] [id number] [facility] 2019-02-14 11:15:00 2019-02-14 11:15:00 [facility] [place] [facility] [id number] [facility] 2019-02-05 09:30:00 2019-02-05 09:30:00 [facility] Medicine [facility] [id number] [facility] 2019-01-17 11:00:00 2019-01-17 11:00:00 [facility] [place] [facility] [id number] [facility] 2019-01-13 08:30:00 2019-01-13 08:30:00 [facility] [facility] [id number] [facility] 2018-12-24 07:58:00 2018-12-24 07:58:00 [facility] [facility] [id number] [facility] 2018-12-17 10:15:00 2018-12-17 10:15:00 [facility] [place] [facility] [id number] [facility] 2018-12-13 09:35:00 2018-12-13 09:35:[address] [facility] [facility] Medicine [id number] [facility] 2018-12-11 10:30:00 2018-12-11 10:30:00 [facility] [facility] [id number] [facility] 2018-08-22 08:12:00 2018-08-22 08:12:00 [facility] [facility] Medicine [id number] [facility] 2018-08-20 09:15:00 2018-08-20 09:15:00 [facility] Medicine [facility] Medicine [id number] [facility] 2018-08-05 14:15:00 2018-08-05 14:15:00 [facility]patient [facility] [facility] Medicine [id number] [facility] 2015-02-17 00:00:00 2015-02-17 00:00:00 Orders Only Doctor Unassigned, [place] [id number] 350.1.13.10 4.2.7.2.[id number] [facility] 2014-08-19 00:00:00 2014-08-19 00:00:00 Orders Only Doctor Unassigned, [place] 53383.840.114 350.1.13.10 4.2.7.2.[id number] [facility] 2014-07-28 00:00:00 2014-07-28 00:00:00 Orders Only Doctor Unassigned, [place] [address]840.114 350.1.13.10 4.2.7.2.[id number] [facility] 2014-06-18 00:00:00 2014-06-18 00:00:00 Orders Only Doctor Unassigned, [place] [facility] 1.2.840.114 350.1.13.10 4.2.7.2.[id number] [facility] 2013-05-09 00:00:00 2013-05-09 00:00:00 Orders Only Doctor Unassigned, [place] [facility] 1.2.840.114 350.1.13.10 4.2.7.2.[id number] [facility] 2012-09-30 00:00:00 2012-09-30 00:00:00 Orders Only Doctor Unassigned, [place] [facility] 1.2.840.114 350.1.13.10 4.2.7.2.[id number] [facility] 2012-08-13 00:00:00 2012-08-13 00:00:00 Orders Only Doctor Unassigned, [place] [facility] 1.2.840.114 350.1.13.10 4.2.7.2.[id number] [facility] 2012-02-29 00:00:00 2012-02-29 00:00:00 Orders Only Doctor Unassigned, [place] [facility] 1.2.840.114 350.1.13.10 4.2.7.2.[id number] [facility] Results Test Description Test Time Test Comments Results Result Co mments Source POCT GLUCOSE (AUTOMATED)2023-03-08 12:18:46* Test Item Value Reference Range Interpretation Comme nts POCT GLU (test code = 9003143770) 114 mg/dL 70-110 H Lab Interpretation (test cod e = 52758-3) [facility] 12:18:46* Test Item Value Reference Range Interpretation Comme nts POCT GLU (test code = 6517549203) 114 mg/dL 70-110 H Lab Interpretation (test cod e = 81584-8) Abnormal [facility] GLUCOSE (AUTOMATED)2023-02-22 13:28:04* Test Item Value Reference Range Interpretation Comme nts POCT GLU (test code = 5767785788) 124 mg/dL 70-110 H Lab Interpretation (test cod e = 31608-4) Abnormal [facility] GLUCOSE (AUTOMATED)2023-02-22 13:28:04* Test Item Value Reference Range Interpretation Comme nts POCT GLU (test code = 3183032210) 124 mg/dL 70-110 H Lab Interpretation (test cod e = 89834-2) [facility]normal [facility] [id number] 08:33:00* Test Item Value Reference Range Interpretation Comme [facility] GLUCOSE BEDSIDE TESTING (meño t code = GLUBED) 72 MG/DL 60-99 N - XR CHEST [id number] 06:52:00 [facility] 1965 Sex: F Patient Name: MADHAVI WHITTAKER Unit No: [id number] EXAMS: CPT CODE: [id number] XR CHEST 1V 99148 EXAM: CHEST ONE VIEW INDICATION: S/P ICD LOCATION: B2 COMPARISON: August 06, 2021 TECHNIQUE: AP view of the chest FINDINGS: The heart size is enlarged. There is a cardiac pacing device in theleft chest with no apparent discontinuity of the leads. There are diffuse congestive changes throughout both lungs. No pneumothorax or pleural effusion is identified. The osseous structures are normal. IMPRESSION: Cardiomegaly with diffuse congestive changes bilaterally. No pneumothorax. at 0652 Reported and signed by: Holli Tolentino MD CC: Greg Ortiz MD; Joselito Bai Technologist: Filiberto Rodriguez, RT(R) Transcrpt Date/Tm/Trnsp: 08/07/2021 (0652) 16 Orig Print D/T: S: 08/07/2021 (0655) [facility] NAME: MADHAVI WHITTAKER [address] [place] PHYS: [place] [address] : 1965 AGE: 55SEX: F LOC: Z.363 A PHONE #: [phone] EXAM DATE: 08/07/2021 STATUS: ADM IN FAX #: [phone] RADIOLOGY NO: PAGE 1 Signed ReportBASIC METABOLIC [id number] 06:15:00* Test Item Value Reference Range Interpretation Comme nts SODIUM (test code = NA) 142 MMOL/L 137-145 N POTASSIUM (test code = K) 3.8 MMOL/L 3.5-5.1 N CHLORIDE (test code = CL) 106 MMOL/L 98-107 N CARBON DIOXIDE (test code = CO2) 28 MMOL/L 22-30 N ANION GAP (test code = GAP) 12 MMOL/L 14-24 L GLUCOSE (test code = GLU) 91 MG/DL 74-106 N BLOOD UREA NITROGEN (test code = BUN) 11 MG/DL 7-17 N GLOMERULAR FILTRATION RATE (test code = GFR) > 60 Reporting units: ml/min/1.73 m2 (Modified MDRD Formula)Reference Range: > or = 60 ml/min/1.73 m2 CREATININE (test code = CREAT) 0.90 MG/DL 0.52-1.04 N CALCIUM (test code = CA) 8.9 MG/DL 8.4-10.2 N CBC W/AUTO [id number] 05:40:00* Test Item Value Reference Range Interpretation Comme nts WHITE BLOOD CELL (test code = WBC) 5.0 K/MM3 3.8-9.8 N RED BLOOD CELL (test code = RBC) 4.45 M/MM3 3.58-4.97 N HEMOGLOBIN (test code = HGB) 12.7 G/DL 11.2-14.9 N HEMATOCRIT (test code = HCT) 43.1 % 33.2-43.5 N MEAN CELL VOLUME (test code = MCV) 97 fL 80.7-99.1 N MEAN CELL HGB (test code = MCH) 28.5 pg 27.0-34.1 N MEAN CELL HGB CONCETRATION (test code = MCHC) 29.5 % 32.2-35.7 L RED CELL DISTRIBUTION WIDTH (test code = RDW) 13.9 % 12.1-15.2 N PLATELET COUNT (test code = PLT) 106 K/MM3 129-368 L MEAN PLATELET VOLUME (test c ode = MPV) 12.3 fl 7.4-10.4 H NEUTROPHIL % (test code = NT%) 43.9 % 43-75 N IMMATURE GRANULOCYTE % (test code = IG%) 0.2 % 0.0-2.0 N LYMPHOCYTE % (test code = LY%) 43.5 % 14-44 N MONOCYTE % (test code = MO%) 10.4 % 4-13 N EOSINOPHIL % (test code = EO%) 1.6 % 0-6 N BASOPHIL % (test code = BA%) 0.4 % 0-2 N NUCLEATED RBC % (test code = NRBC%) 0.0 % 0-1.0 N NEUTROPHIL # (test code = NT#) 2.20 K/mm3 2.0-7.6 N IMMATURE GRANULOCYTE # (test code = IG#) 0.01 x10 3/uL 0-0.03 N LYMPHOCYTE # (test code = LY#) 2.18 K/mm3 1.0-3.8 N MONOCYTE # (test code = MO#) 0.52 K/mm3 0.1-0.8 N EOSINOPHIL # (test code = EO#) 0.08 K/mm3 0.0-0.2 N BASOPHIL # (test code = BA#) 0.02 K/mm3 0.0-0.2 N NUCLEATED RBC # (test code = NRBC#) 0.00 K/mm3 0.0-0.1 N GLUCOSE BEDSIDE [id number] 20:22:00* Test Item Value Reference Range Interpretation Comme nts GLUCOSE BEDSIDE TESTING (meño t code = GLUBED) 92 MG/DL 60-99 N - XR CHEST [id number] 12:24:00 [facility] : 1965 Sex: F Patient Name: MADHAVI WHITTAKER Unit No: [id number] EXAMS: CPT CODE: [id number] XR CHEST 1V 32747 CLINICAL HISTORY: S/P ICD. LOCATION: A1 FINDINGS: No comparison studies. A portable AP view ofthe chest is dated 08/06/2021 at 1214 hours. [...] and signed by: Live Geiger MD CC: Greg Ortiz MD Technologist: Carmine Alfaro (RT) Transcrpt Date/Tm/Trnsp: 08/06/2021 (1224) Lauren.RC7 Orig Print D/T: S: 08/06/2021 (2129) [facility] NAME: MADHAVI WHITTAKER [address] [place] PHYS: [place] [address] : 1965 AGE: 55 SEX: F LOC: KristiSUZANNA Kerr PHONE #: [phone] EXAM DATE: 08/06/2021TATUS: ADM IN FAX #: [phone] RADIOLOGY NO: PAGE 1 Signed ReportBASIC METABOLIC [id number] 09:16:00* Test Item Value Reference Range Interpretation Comme nts SODIUM (test code = NA) 144 MMOL/L 137-145 N POTASSIUM (test code = K) 3.2 MMOL/L 3.5-5.1 L CHLORIDE (test code = CL) 105 MMOL/L 98-107 N CARBON DIOXIDE (test code = CO2) 31 MMOL/L 22-30 H ANION GAP (test code = GAP) 11 MMOL/L 14-24 L GLUCOSE (test code = GLU) 94 MG/DL 74-106 N BLOOD UREA NITROGEN (test code = BUN) 9 MG/DL 7-17 N GLOMERULAR FILTRATION RATE (test code = GFR) > 60 Reporting units: ml/min/1.73 m2 (Modified MDRD Formula)Reference Range: > or = 60 ml/min/1.73 m2 CREATININE (test code = CREAT) 0.80 MG/DL 0.52-1.04 N CALCIUM (test code = CA) 9.3 MG/DL 8.4-10.2 N Comments to Hot Car Operator: NURSE WILL BRING SPECIMEN TO LABIs this a LINE draw? N LIPID PROFILE (CORONARY RISK)2021-08-06 09:16:00* Test Item Value Reference Range Interpretation Comme nts TRIGLYCERIDES (test code = TRIG) 89 MG/DL TRIGLYCERIDES REFERENCE RANGE:Normal: <150 mg/dLBorderline High: 150-199 mg/dLHigh: 200-499 mg/dLVery High: >=500 mg/dL CHOLESTEROL (test code = CHOL) 164 MG/DL <200 HDL CHOLESTEROL (test code = HDL) 49 MG/DL 40-59 N LIPOPROTEIN LDL (test code = LDL) 94 MG/DL 0-99 N OPTIMAL......... <100 mg/dLNEAR OPTIMAL/ABOVE OPTIMAL.........100-12 9 mg/dL BORDERLINE HIGH.........130-159 mg/dL HIGH.........160-189 mg/dL VERY HIGH.........>/= 190 mg/dL Comments to Hot Car Operator: NURSE WILL BRING SPECIMEN TO LABIs this a LINE draw? N [id number] 09:16:00* Test Item Value Reference Range Interpretation Comme nts MAGNESIUM (test code = MAG) 1.8 MG/DL 1.6-2.3 N Comments to Hot Car Operator: NURSE WILL BRING SPECIMEN TO LABIs this a LINE draw? N BASIC METABOLIC [id number] 09:05:00* Test Item Value Reference Range Interpretation Comme nts SODIUM (test code = NA) 144 MMOL/L 137-145 N POTASSIUM (test code = K) 3.2 MMOL/L 3.5-5.1 L CHLORIDE (test code = CL) 105 MMOL/L 98-107 N CARBON DIOXIDE (test code = CO2) 31 MMOL/L 22-30 H ANION GAP (test code = GAP) 11 MMOL/L 14-24 L GLUCOSE (test code = GLU) 94 MG/DL 74-106 N BLOOD UREA NITROGEN (test code = BUN) 9 MG/DL 7-17 N GLOMERULAR FILTRATION RATE (test code = GFR) > 60 Reporting units: ml/min/1.73 m2 (Modified MDRD Formula)Reference Range: > or = 60 ml/min/1.73 m2 CREATININE (test code = CREAT) 0.80 MG/DL 0.52-1.04 N CALCIUM (test code = CA) 9.3 MG/DL 8.4-10.2 N Comments to Hot Car Operator: NURSE WILL BRING SPECIMEN TO LABIs this a LINE draw? N LIPID PROFILE (CORONARY RISK)2021-08-06 09:05:00* Test Item Value Reference Range Interpretation Comme nts TRIGLYCERIDES (test code = TRIG) 89 MG/DL TRIGLYCERIDES REFERENCE RANGE:Normal: <150 mg/dLBorderline High: 150-199 mg/dLHigh: 200-499 mg/dLVery High: >=500 mg/dL CHOLESTEROL (test code = CHOL) 164 MG/DL <200 HDL CHOLESTEROL (test code = HDL) 49 MG/DL 40-59 N LIPOPROTEIN LDL (test code = LDL) MG/DL 0-99 Comments to Hot Car Operator: NURSE WILL BRING SPECIMEN TO LABIs this a LINE draw? N [id number] 09:05:00* Test Item Value Reference Range Interpretation Comme nts MAGNESIUM (test code = MAG) 1.8 MG/DL 1.6-2.3 N Comments to Hot Car Operator: NURSE WILL BRING SPECIMEN TO LABIs this a LINE draw? N PROTHROMBIN [id number] 09:01:00* Test Item Value Reference Range Interpretation Comme nts PROTHROMBIN TIME PATIENT (test code = PTP) 11.4 SECONDS 9.5-12.7 N INTERNATIONAL NORMAL RATIO (test code = INR) 1.0 0.86-1.14 N The INR is to be used only for monitoring oral anticoagulanttherap y. INDICATION INR VALUE -------1. Prophylaxis, deep venous thrombosis, including high risk surgery. 2.0 - 3.0 2. Prophylaxis, deep venous thrombosis, hip surgery, treatment for deep venous thrombosis or pulmonary prevention of systemic embolism in patients with valvular heart disease, atrial fibrillation, tissue heart valve, or acute myocardial infarction. 2.0 - 3.0 3. Mechanical prosthesis heart valves, recurrent systemic embolism. 3.0 - 4.5 Comments to Hot Car Operator: NURSE WILL BRING SPECIMEN TO LABPTT ACTIVATED 2021-08-06 09:01:00* Test Item Value Reference Range Interpretation Comme nts PTT ACTIVATED (test code = APTT) 31.5 SECONDS 25.1-36.5 N Comments to Hot Car Operator: NURSE WILL BRING SPECIMEN TO LABCBC W/AUTO DIFF 2021-08-06 08:51:00* Test Item Value Reference Range Interpretation Comme nts WHITE BLOOD CELL (test code = WBC) 5.8 K/MM3 3.8-9.8 N RED BLOOD CELL (test code = RBC) 4.98 M/MM3 3.58-4.97 H HEMOGLOBIN (test code = HGB) 14.7 G/DL 11.2-14.9 N HEMATOCRIT (test code = HCT) 46.4 % 33.2-43.5 H MEAN CELL VOLUME (test code = MCV) 93 fL 80.7-99.1 N MEAN CELL HGB (test code = MCH) 29.5 pg 27.0-34.1 N MEAN CELL HGB CONCETRATION (test code = MCHC) 31.7 % 32.2-35.7 L RED CELL DISTRIBUTION WIDTH (test code = RDW) 13.7 % 12.1-15.2 N PLATELET COUNT (test code = PLT) 126 K/MM3 129-368 L MEAN PLATELET VOLUME (test c ode = MPV) 12.4 fl 7.4-10.4 H NEUTROPHIL % (test code = NT%) 54.2 % 43-75 N IMMATURE GRANULOCYTE % (test code = IG%) 0.3 % 0.0-2.0 N LYMPHOCYTE % (test code = LY%) 35.2 % 14-44 N MONOCYTE % (test code = MO%) 9.1 % 4-13 N EOSINOPHIL % (test code = EO%) 0.9 % 0-6 N BASOPHIL % (test code = BA%) 0.3 % 0-2 N NUCLEATED RBC % (test code = NRBC%) 0.0 % 0-1.0 N NEUTROPHIL # (test code = NT#) 3.15 K/mm3 2.0-7.6 N IMMATURE GRANULOCYTE # (test code = IG#) 0.02 x10 3/uL 0-0.03 N LYMPHOCYTE # (test code = LY#) 2.05 K/mm3 1.0-3.8 N MONOCYTE # (test code = MO#) 0.53 K/mm3 0.1-0.8 N EOSINOPHIL # (test code = EO#) 0.05 K/mm3 0.0-0.2 N BASOPHIL # (test code = BA#) 0.02 K/mm3 0.0-0.2 N NUCLEATED RBC # (test code = NRBC#) 0.00 K/mm3 0.0-0.1 N Comments to Hot Car Operator: NURSE WILL BRING SPECIMEN TO LABCOVID 19 Asymptomatic IH [id number] 05:59:00* Test Item Value Reference Range Interpretation Comme nts COVID 19 Asymptomatic IH AG (test code = COVNONPUIAG) NEGATIVE Negative "Negative result s from patients with symptom onset beyondfive days, should be treated as presumptive, andconfirmation with a molecular assay, if necessary forpatient management may be performed. Negative results do notrule out COVID-19 and should not be used as the sole basisfor treatment or patient management decisions, includinginfection control decisions. Negative results should beconsidered in the context of a patients recent exposures,history, and the presence of clinical signs and symptomsconsistent with COVID-19.This test detects both viable andnon-viable SARS-CoV and SARS CoV-2.Test performance dependson the amount of virus (antigen) in the sample." 3D SCR TRISH BILAT W/CAD3D SCR TRISH BILAT W/CAD Notes Date/Time Note Provider Source 2021-08-07 09:16:00 [id number]:1 6:00 [facility]ENTERCard[facility] Progress NoteREPORT#:[id number] REPORT STATUS: SignedDATE:08/07/21 TIME: 915 PATIENT: MADHAVI WHITTAKER UNIT #: [id number]#: [id number] [facility] [birth year] AGE: 55 SEX: F ATTEND: Joselito Bai [facility] AUTHOR: Sandor Swann MD * ALL edits or amendments must be made on the electronic/computer document * SubjectiveChief Complaint:BradycardiaPatient reports:No: chest pain, palpitations, shortness of breath. Objective GeneralVS/I O:24 hour I O ending at 0700: 08/07 0700 08/06 1900 Intake Total 200 Output Total 1 Balance 199 Intake, Oral 200 Number Voids 2 Output, Urine 1 Patient 144.545 kg Weight Weight Stated/Reported Measurement Method Vital Signs: Date Time Temp Pulse Resp B/P B/P Pulse O2 O2 Flow FiO2 Mean Ox Delivery Rate 08/07 0833 97.9 68 18 144/87 106.0 100 Room air 08/07 0501 98.4 57 18 136/81 99.5 95 08/06 2351 99.1 63 18 117/71 86.5 95 08/06 2022 98.1 73 18 144/89 107.5 99 08/06 1649 98.6 59 18 148/87 107.3 96 Room air PATIENT WEIGHT: Weight (lb): 318Weight (oz): 10.67Weight (kg): 144.545 Medications:Active Meds + DC'd Last 24 HrsFurosemide 20 MG ONCE ONE IV (DC) Losartan Potassium 100 MG DAILY PO Potassium Chloride 40 MEQ NOW ONE PO (DC) Spironolactone 25 MG DAILY PO Sodium Chloride 10 ML .STK-MED ONE IV (DC) Apixaban 5 MG BID PO Atorvastatin Calcium 20 MG BEDTIME PO Carvedilol 6.25 MG BID PO Budesonide 1 MG RTQ12H NEB Formoterol Fumarate 20 MCG RTQ12H NEB Pantoprazole 40 MG DAILY PO Albuterol/Ipratropium 3 ML RTQ4H PRN PRN INH Morphine Sulfate 4 MG Q4H PRN PRN IV Acetaminophen 650 MG Q6H PRN PRN PO Hydralazine HCl 10 MG Q6H PRN PRN IV Melatonin 3 MG BEDTIME PRN PRN PO Acetaminophen 650 MG Q4H PRN PRN PO (DC) Cefazolin Sodium 1,000 MG Q8H IV (DC) Sodium Chloride 10 MLHydrocodone Bitart/Acetaminophen 1 TAB Q4H PRN PRN PO Ondansetron HCl 4 MG Q8H PRN PRN IV Lidocaine 0 .STK-MED ONE .ROUTE (DC) Midazolam HCl 0 .STK-MED ONE .ROUTE (DC) Cefazolin Sodium 0 .STK-MED ONE .ROUTE (DC) Fentanyl Citrate 0 .STK-MED ONE .ROUTE (DC) Lidocaine 0 .STK-MED ONE .ROUTE (DC) Midazolam HCl 0 .STK-MED ONE .ROUTE (DC) Potassium Chloride 40 MEQ NOW ONE PO (DC) Potassium Chloride 0 .STK-MED ONE .ROUTE (DC) Diazepam 0 .STK-MED ONE .ROUTE (DC) Diphenhydramine HCl 0 .STK-MED ONE .ROUTE (DC) Cefazolin Sodium 2,000 MG ONCE IV (DC) Diazepam 5 MG ONCE PO (DC) Diphenhydramine HCl 25 MG ONCE PO (CKD) Sodium Chloride 1,000 ML ONCALL IV (DC) Physical ExamGeneral appearance: alert, awake, orientedHead/Eyes: atraumatic, normocephalicENT: moist mucosal membranesNeck: no JVDCardiovascular: CV assessment: regular rate and rhythmRespiratory: clear to auscultation, no distressLower extremity: LE assessment: no edemaMusculoskeletal: full range of motionNeuro/PIN STICKER: alert, oriented X 3, CN II-XII intactSkin: dry, intactPsychiatry: normal affect, normal judgment/insight, normal mood ResultsFindings/Data:Laboratory Tests 08/07 08/07 08/06 0831 415 2020 Chemistry Sodium (137 - 145 MMOL/L) 142 Potassium (3.5 - 5.1 MMOL/L) 3.8 Chloride (98 - 107 MMOL/L) 106 Carbon Dioxide (22 - 30 MMOL/L) 28 Anion Gap (14 - 24 MMOL/L) 12 L BUN (7 - 17 MG/DL) 11 Creatinine (0.52 - 1.04 MG/DL) 0.90 Glomerular Filtr Rate > 60 Glucose (74 - 106 MG/DL) 91 POC Glucose (60 - 99 MG/DL) 72 92 Calcium (8.4 - 10.2 MG/DL) 8.9 Laboratory Tests 08/07 416 Hematology WBC (3.8 - 9.8 K/MM3) 5.0 RBC (3.58 - 4.97 M/MM3) 4.45 Hgb (11.2 - 14.9 G/DL) 12.7 Hct (33.2 - 43.5 %) 43.1 MCV (80.7 - 99.1 fL) 97 MCH (27.0 - 34.1 pg) 28.5 MCHC (32.2 - 35.7 %) 29.5 L RDW (12.1 - 15.2 %) 13.9 Plt Count (129 - 368 K/MM3) 106 L MPV (7.4 - 10.4 fl) 12.3 H Neut % (Auto) (43 - 75 %) 43.9 Lymph % (Auto) (14 - 44 %) 43.5 [place] % (Auto) (4 - 13 %) 10.4 Eos % (Auto) (0 - 6 %) 1.6 Baso % (Auto) (0 - 2 %) 0.4 Neut # (Auto) (2.0 - 7.6 K/mm3) 2.20 Lymph # (Auto) (1.0 - 3.8 K/mm3) 2.18 [place] # (Auto) (0.1 - 0.8 K/mm3) 0.52 Eos # (Auto) (0.0 - 0.2 K/mm3) 0.08 Baso # (Auto) (0.0 - 0.2 K/mm3) 0.02 Immature Gran % (0.0 - 2.0 %) 0.2 Nucleated RBC % (0 - 1.0 %) 0.0 Nucleated RBCs # (Man) (0.0 - 0.1 K/mm3) 0.00 Radiology data:Recent Impressions:RADIOLOGY - XR CHEST 1V 08/06 1211 Report Impression - Status: SIGNED Entered: 08/06/2021 1227 IMPRESSION: 1. There is pulmonary vascular congestion with diffuse interstitialand mild alveolar infiltrates. This may be related to edema. Pleasecorrelate clinically. 2. Mild cardiomegaly.Impression By: Ludy - GINA ArizaADIOLOGY - XR CHEST 1V 08/07 0525 Report Impression - Status: SIGNED Entered: 08/07/2021 0655 IMPRESSION:Cardiomegaly with diffuse congestive changes bilaterally. Nopneumothorax. Impression By: Coy - Holli Tolentino MD Diagnosis, Assessment Plan Free Text DxA P NotesFree Text DxA P Notes:IMP: Bradycardia s/p PPM PLAN: d/c home f/u one week. at 1032 RPT #:[id number] OF REPORTPRProgress Gfsh3672-54-17J09:16:00Z.MGIG45059453-4270CGKjrkq able for patient xofmYOFAQSJTCVOTTC3080-38-01Z50:33:02 [facility] 2021-08-07 07:45:00 VNtmgnjqdfo77293208U 5M/bXImCApLTY5feTlYGyOj/exGH6 VSOlHi5eFhKAJe4yhQPG5wG89diAVNPvih1380-08-93O08:4 5:143264-[address] [address] PATIENT NAME: MADHAVI WHITTAKER ADMIT DATE: 08/06/21ACCOUNT NO: [id number] ROOM NO: Z.363 AGE: 55 REPORT TYPE: ELECTROCARDIOGRAM SEX: F ADMITTING PHYSICIAN:Joselito Bai MD ATTENDING PHYSICIAN:Joselito Bai MD Order:[id number] Reason : S/P PPI Test Date/Time Stamp:[place] Aug 07 2021 07:45:34Blood Pressure : / mmHGVent. Rate : 058 BPM Atrial Rate : 058 BPM P-R Int : 176 ms QRS Dur : 082 ms QT Int : 402 ms P-R-T Axes : 029 -01 -06 degrees QTc Int : 394 ms Sinus bradycardiaCannot rule out Anterior infarct , age undeterminedAbnormal ECGWhen compared with ECG of 06-AUG-2021 13:41,Questionable change in QRS axisNonspecific T wave abnormality has replaced inverted T waves in Lateral leadsConfirmed by GREG ORTIZ ([id number]) on 08/07/2021 8:16:10 AM Referred By: Joselito Bai Confirmed by:GREG ORTIZ at 0816 PATIENT NAME: MADHAVI WHITTAKER .[id number] AVAvailable for patient knkgCHOJCGAGLWCATO3346-96-21J09:16:42 [facility] 2021-08-07 07:45:00 [id number] YZYuXg2OCZf4tUy9+dHb9YIm0grAX hjJh2I+Dp4B/wCl9NTnecMcyw1Trz0aJDT1196-04-91X35:4 5:871480-7281 [place] [address] PATIENT NAME: MADHAVI WHITTAKER ADMIT DATE: 08/06/21ACCOUNT NO: [id number] ROOM NO: Z.363 AGE: 55 REPORT TYPE: ELECTROCARDIOGRAM SEX: F ADMITTING PHYSICIAN:Joselito Bai MD ATTENDING PHYSICIAN:Joselito Bai MD Order:[id number] Reason : S/P PPI Test Date/Time Stamp:SunAug 07 2021 07:45:34Blood Pressure : / mmHGVent. Rate : 058 BPM Atrial Rate : 058 BPM P-R Int : 176 ms QRS Dur : 082 ms QT Int : 402 ms P-R-T Axes : 029 -01 -06 degrees QTc Int : 394 ms Sinus bradycardiaCannot rule out Anterior infarct , age undeterminedAbnormal ECGWhen compared with ECG of 06-AUG-2021 13:41,Questionable change in QRS axisNonspecific T wave abnormality has replaced inverted T waves in Lateral leadsConfirmed by GREG ORTIZ ([id number]) on 08/08/2021 12:26:43 PM Referred By: Joselito Bai Confirmed by:GREG ORTIZ at 1226 PATIENT NAME: MADHAVI WHITTAKER .[id number] AVAvailable for patient dgdvULFXEELMVLYVNE1041-10-29Y12:27:17 [facility] 2021-08-06 15:28:00 LObykjwbxxk66185543R EnGjiK0X4wztEf1oKSqm8OOLVN+Fp UYHYvchyNT1V/naWdaw7gdiV8vjhycqYMv5732-03-95M69:2 8:00 [facility] Hospitalist History PhysicalREPORT#:[id number] REPORT STATUS: SignedDATE:08/06/21 TIME: 1528 PATIENT: MADHAVI WHITTAKER UNIT #: [id number]#: [id number] ROOM/BED: [facility]-ADOB: [birth year] AGE: 55 SEX: F ATTEND: Joselito Bai AUTHOR: Joselito Bai MD * ALL edits or amendments must be made on the electronic/computer document * History of Present Illness HPIChief complaint:Bradycardia.HPI:Patient is a 55-year-old morbidly obese female with known multiple medical problems including hypertension, asthma, atrial fibrillation, JULIUS, and diet-controlled diabetes mellitus who has been having episodes of bradycardia and pauses for the last few months. Initially it was suspected that it was due to obstructive sleep apnea and she was prescribed CPAP. She continued to have these episodes of bradycardia and pauses, mostly during the night therefore she was brought by her fitness attendant Dr. Ortiz to undergo pacemaker placement. Procedure was performed this morning and she is now admitted to the telemetry unit for overnight observation. She reports slight pain at the procedure site. She denies any other complaint. History Past Medical Surgical HxPatient History: 1. Atrial fibrillation 2. HTN (hypertension) 3. Diet-controlled type 2 diabetes mellitus 4. Obstructive sleep apnea 5. Asthma, moderate persistent, well-controlled 6. Generalized osteoarthritis 7. Peripheral autonomic neuropathy due to DM 8. History of arthroplasty of right knee 9. S/P laparoscopic cholecystectomy 10. Tobacco smoker, 20 cigarettes or fewer per day 11. Drinks alcohol occasionally 12. Has 3 children Family HistoryAdditional family history:Father of complications of SBO; mother of ruptured AAA. Medication/Allergy-Vaccine HxMedications:Home Medications:SPIRONOLACTONE (ALDACTONE) 25 MG PO DAILY GABAPENTIN (NEURONTIN) SIMVASTATIN (ZOCOR) 40 MG PO DAILY OMEPRAZOLE ER (PriLOSEC) 40 MG PO DAILY FUROSEMIDE (LASIX) 20 MG PO DAILY BUDESONIDE/FORMOTEROL (SYMBICORT 160/4.5 MCG/ACT 10.2GM) CARVEDILOL (COREG) LOSARTAN (COZAAR) APIXABAN (ELIQUIS) 5 MG PO BID Allergies:Coded Allergies:No Known Allergies (08/06/21) Review of SystemsConstitutional:Denies: chills, fatigue, fever, generalized weakness, lethargy, malaise, recent wt loss. Respiratory:Denies: LUJAN (dyspnea on exertion), hemoptysis, non productive cough, parox nocturnal dyspnea, pleuritic pain, productive cough (sputum), SOB, wheezing. Cardiovascular:Denies: chest pain, LUJAN (dyspnea on exertion), edema, orthopnea, palpitations, parox nocturnal dyspnea. All systems rev neg: except as noted Physical ExamGeneral appearance: awake, no acute distress, conversationalHead/Eyes: atraumatic, clear cornea, normal conjunctiva/sclera, PERRLENT: moist mucosal membranes, normal ear left, normal ear rightNeck: non-tender, supple/no meningismusCardiovascular: normal heart sounds, regular rate rhythmRespiratory: aerating well, clear to auscultation, symmetric expansion, no distressAbdomen: obese, non-tender, normal bowel sounds, soft, no distentionExtremities: moves all, normal range of motion, no clubbing, no cyanosis, no edemaMusculoskeletal: normal inspection, no muscle spasmNeuro/PIN STICKER: alert, oriented X 3, normal speech, no motor deficitsPsychiatry: normal affect, normal judgment/insight, normal mood ResultsFindings/Data:Laboratory Tests: 08/06 08/06 0800 0455 Chemistry Sodium (137 - 145 MMOL/L) 144 Potassium (3.5 - 5.1 MMOL/L) 3.2 L Chloride (98 - 107 MMOL/L) 105 Carbon Dioxide (22 - 30 MMOL/L) 31 H Anion Gap (14 - 24 MMOL/L) 11 L BUN (7 - 17 MG/DL) 9 Creatinine (0.52 - 1.04 MG/DL) 0.80 Glomerular Filtr Rate > 60 Glucose (74 - 106 MG/DL) 94 Calcium (8.4 - 10.2 MG/DL) 9.3 Magnesium (1.6 - 2.3 MG/DL) 1.8 Triglycerides (MG/DL) 89 Cholesterol (<200 MG/DL) 164 LDL Cholesterol [place] (0 - 99 MG/DL) 94 HDL Cholesterol (40 - 59 MG/DL) 49 Coagulation INR (0.86 - 1.14) 1.0 APTT (25.1 - 36.5 SECONDS) 31.5 PT Patient/Control Mix (9.5 - 12.7 SECONDS) 11.4 Hematology WBC (3.8 - 9.8 K/MM3) 5.8 RBC (3.58 - 4.97 M/MM3) 4.98 H Hgb (11.2 - 14.9 G/DL) 14.7 Hct (33.2 - 43.5 %) 46.4 H MCV (80.7 - 99.1 fL) 93 MCH (27.0 - 34.1 pg) 29.5 MCHC (32.2 - 35.7 %) 31.7 L RDW (12.1 - 15.2 %) 13.7 Plt Count (129 - 368 K/MM3) 126 L MPV (7.4 - 10.4 fl) 12.4 H Neut % (Auto) (43 - 75 %) 54.2 Lymph % (Auto) (14 - 44 %) 35.2 [place] % (Auto) (4 - 13 %) 9.1 Eos % (Auto) (0 - 6 %) 0.9 Baso % (Auto) (0 - 2 %) 0.3 Neut # (Auto) (2.0 - 7.6 K/mm3) 3.15 Lymph # (Auto) (1.0 - 3.8 K/mm3) 2.05 [place] # (Auto) (0.1 - 0.8 K/mm3) 0.53 Eos # (Auto) (0.0 - 0.2 K/mm3) 0.05 Baso # (Auto) (0.0 - 0.2 K/mm3) 0.02 Immature Gran % (0.0 - 2.0 %) 0.3 Nucleated RBC % (0 - 1.0 %) 0.0 Nucleated RBCs # (Man) (0.0 - 0.1 K/mm3) 0.00 Serology SARS-CoV-2 Ag (Rapid) (Negative) NEGATIVE Laboratory Tests 08/06/21 0800:[Embedded Image Not Available] Radiology data:Recent Impressions:RADIOLOGY - XR CHEST 1V 08/06 1211 Report Impression - Status: SIGNED Entered: 08/06/2021 1227 IMPRESSION: 1. There is pulmonary vascular congestion with diffuse interstitialand mild alveolar infiltrates. This may be related to edema. Pleasecorrelate clinically. 2. Mild cardiomegaly.Impression By: Jose7 - Live Geiger MD Results: labs reviewed, vital signs stable, rhythm personally rev'd, current medprofile rev'd Diagnosis, Assessment PlanProblem List/A P: 1. Sick sinus syndrome s/p PPM; now post-procedure. 2. Atrial fibrillation 3. HTN (hypertension) 4. Diet-controlled type 2 diabetes mellitus 5. Obstructive sleep apnea 6. Asthma, moderate persistent, well-controlled 7. Generalized osteoarthritis 8. Peripheral autonomic neuropathy due to DM 9. Morbid obesity with BMI of 45.0-49.9, adult Free Text A P:- Admit to telemetry unit for overnight observation.- Pain meds prn.- Resume home meds.- Repeat CXR in am.- Interrogation of device in am.- Will order CPAP; patient thinks the setting of her home machine is "10".- Potassium has been replaced.- Labs in am.- Anticipate discharge home in am. Quality: Gen Med Crit Care Current MedicationsCurrent medication review:I attest that the foregoing medication list in the medical record is true, accurate, and complete to the best of my knowledge. VTE ProphylaxisVTE prophylaxis initiated: yes at 2243 RPT #:[id number] OF REPORTHPHistory and physical gkimnmuodxr7114-27-88E76:28:00Z.PCRN69581214-3962 AVAvailable for patient cktcTTDAUCWZTAWXVR3528-80-24A98:44:07 [facility] 2021-08-06 13:41:00 XCcukbhztfh10039060L NSllPXMUsZUMANTLjK2uU8d+HkIrv ELJxqYBHGYxYVqCb1HZklHKxDYHCEo3J7F6182-49-41K68:4 1:489974-7997 [place] [address] PATIENT NAME: MADHAVI WHITTAKER ADMIT DATE: 08/06/21ACCOUNT NO: [id number] ROOM NO: [facility] AGE: 55 REPORT TYPE: ELECTROCARDIOGRAM SEX: F ADMITTING PHYSICIAN:Greg Ortiz MD ATTENDING PHYSICIAN:Greg Ortiz MD Order:[id number] Reason : S/P PPI Test Date/Time Stamp:SunAug 06 2021 13:41:32Blood Pressure : / mmHGVent. Rate : 064 BPM Atrial Rate : 064 BPM P-R Int : 170 ms QRS Dur : 090 ms QT Int : 404 ms P-R-T Axes : 060 062 040 degrees QTc Int : 416 ms Normal sinus rhythm with sinus arrhythmiaNonspecific T wave abnormalityAbnormal ECGWhen compared with ECG of 06-AUG-2021 09:02,aberrant conduction is no longer presentConfirmed by GREG ORTIZ ([id number]) on 08/06/2021 1:43:17 PM Referred By: Greg Ortiz Confirmed by:GREG ORTIZ at 1343 PATIENT NAME: MADHAVI WHITTAKER .[id number] AVAvailable for patient sgtrJCANCLFYAQJFLO1751-22-38L67:43:36 [facility] 2021-08-06 13:41:00 SKzephcrbbd92710507Q ZtaLmXat2Rwn65na0ti2jRdMHNCfr 8/N+HU3krtj+EmwpMSN6wKx6MBjY5wxlbx0258-08-27I36:4 1:339014-4543 [place] [address] PATIENT NAME: MADHAVI WHITTAKER ADMIT DATE: 08/06/21ACCOUNT NO: [id number] ROOM NO: [facility] AGE: 55 REPORT TYPE: ELECTROCARDIOGRAM SEX: F ADMITTING PHYSICIAN:Joselito Bai MD ATTENDING PHYSICIAN:Joselito Bai MD Order:[id number] Reason : S/P PPI Test Date/Time Stamp:SunAug 06 2021 13:41:32Blood Pressure : / mmHGVent. Rate : 064 BPM Atrial Rate : 064 BPM P-R Int : 170 ms QRS Dur : 090 ms QT Int : 404 ms P-R-T Axes : 060 062 040 degrees QTc Int : 416 ms Normal sinus rhythm with sinus arrhythmiaNonspecific T wave abnormalityAbnormal ECGWhen compared with ECG of 06-AUG-2021 09:02,aberrant conduction is no longer presentConfirmed by GREG ORTIZ ([id number]) on 08/08/2021 12:26:39 PM Referred By: Greg Ortiz Confirmed by:GREG ORTIZ at 1226 PATIENT NAME: MADHAVI WHITTAKER .[id number] AVAvailable for patient tzqeFUBBRHZXKAVEFO0230-52-05N20:27:17 [facility] 2021-08-06 11:31:00 LVqbxqyibnd57416794c dLexaevvBS9EUg20jYjs2AkmtXlUx supscpGf4JwEWvZ3gpZ1vUavdBcO2GWATt3215-14-04O00:3 1:164763-4108 [place] [address] PATIENT NAME: MADHAVI WHITTAKER ADMIT DATE: 08/06/21ACCOUNT NO: [id number] ROOM NO: AGE: 55 REPORT TYPE: CARDIAC CATHETERIZATION REPORT SEX: F ADMITTING PHYSICIAN: ATTENDING PHYSICIAN:Greg Ortiz MD PROCEDURE DATE: 08/06/2021 FORENSIC ENGINEER: Greg Ortiz M.D. TITLE OF THE PROCEDURE: Dual-chamber permanent pacemaker implantation. INDICATION FOR THE PROCEDURE: Tachybrady syndrome, symptomatic sick sinussyndrome, paroxysmal atrial fibrillation, and documented long pauses. ESTIMATED BLOOD LOSS: Minimal. COMPLICATIONS: None. CONTRAST: None. ANESTHESIA: Conscious sedation with Versed and fentanyl and 1% lidocaine forlocal anesthesia. FINAL DIAGNOSIS: Successful dual-chamber permanent pacemaker implantation. RECOMMENDATIONS: Overnight observation. PROCEDURE IN DETAIL: Please see enclosed report in the chart. Dictated By: Greg Ortiz MD WT: CATH:DUNIA/TONYA/NTSDD: 08/06/2021 11:31:27DT: 08/06/2021 11:40:49Conf#: [id number]/DID#: [id number] Authenticated by Greg Ortiz MD On 08/06/2021 11:47:20 AM at 1147 PATIENT NAME: MADHAVI WHITTAKER Innb8580-68-02B98:40:00Z.[id number] ble for patient tgolKNNZOLCDQSNRYX8963-72-83B58:47:57 [facility] 2021-08-06 09:02:00 OEnwxuqwfng20660686T CW/2Cb5Y39trMvlSWJFItUm9AUBY2 oAXYhnsQXVTbnJxm3kLDPOkNqfSA6jFzhL1117-57-94G01:0 2:614599-4386 [place] [address] PATIENT NAME: MADHAVI WHITTAKER ADMIT DATE: 08/06/21ACCOUNT NO: [id number] ROOM NO: AGE: 55 REPORT TYPE: ELECTROCARDIOGRAM SEX: F ADMITTING PHYSICIAN: ATTENDING PHYSICIAN:Greg Ortiz MD Order:[id number] Reason : SSS Test Date/Time Stamp:[facility] Aug 06 2021 09:02:06Blood Pressure : / mmHGVent. Rate : 065 BPM Atrial Rate : 065 BPM P-R Int : 146 ms QRS Dur : 106 ms QT Int : 420 ms P-R-T Axes : 036 051 046 degrees QTc Int : 436 ms Sinus rhythm with premature atrial complexes with aberrant conductionNonspecific T wave abnormalityAbnormal ECGNo previous ECGs availableConfirmed by GREG ORTIZ ([id number]) on 08/06/2021 9:32:57 AM Referred By: Greg Ortiz Confirmed by:GREG ORTIZ at 0932 PATIENT NAME: MADHAVI WHITTAKER .[id number] AVAvailable for patient lmwjPDGUVBSOIPTEFJ0986-23-32T23:33:18 [facility] 2021-08-05 07:13:00 ASvubnzpgqy15848056G BouKzYbu9n0vGHmEjh+OXljf8kdoS n/zonc+8/+AGlAKA6L9XcNTEMSrehDC0Ab8735-07-74W97:1 3:539685-8123 [place] [address] PATIENT NAME: MADHAVI WHITTAKER ADMIT DATE: ACCOUNT NO: [id number] ROOM NO: AGE: 55 REPORT TYPE: PREOP HISTORY AND PHYSICAL SEX: F ADMITTING PHYSICIAN: ATTENDING PHYSICIAN:Greg Ortiz MD PATIENT NAME: MADHAVI WHITTAKER ADMIT DATE:08/06/2021DMISSION DATE: 08/06/2021 FORENSIC ENGINEER: Greg Ortiz MD REASON FOR ADMISSION: Sick sinus syndrome with long pauses; for dual-chamberpermanent pacemaker implantation in a patient with paroxysmal atrialfibrillation. HISTORY OF PRESENT ILLNESS: Madhavi is a 55-year-old lady with a long history ofparoxysmal atrial fibrillation and sick sinus syndrome with pauses. The patientwas evaluated back in November and her heart rate at night went down to 18 andshe had 4.2 second pauses. At that time, she was treated with CPAP and cameback for followup and she continues to have significant pauses with as long as4.7 seconds and the lowest heart rate at night was 18. The patient hasparoxysmal atrial fibrillation, so she has tachybrady syndrome. She hassymptomatic palpitations and dyspnea. She is here for dual-chamber permanentpacemaker implantation. The patient has a history of mild carotid disease,hypertensive heart changes on the echo with normal ejection fraction and mildmitral regurgitation and mild aortic insufficiency. She had a negative stresstest in 2017 and a negative nuclear in 2019. There is no history of angina.She does have dyspnea. There is no history of TIAs or stroke or congestiveheart failure. PAST MEDICAL HISTORY: Remarkable for hypertension, hyperlipidemia, paroxysmalatrial fibrillation, PVCs, diabetes, arthritis, sciatica, neuropathy, and sleepapnea, on CPAP as well as asthma. PAST SURGICAL HISTORY: She has had tubal ligation, cholecystectomy,hysterectomy, right knee replacement, and hernia repair in January 2020. ALLERGIES: NO KNOWN DRUG ALLERGIES. MEDICATIONS: She takes spironolactone 25 mg daily, gabapentin, aspirin,simvastatin 40 mg daily, omeprazole 40 mg daily, Lasix 20 mg daily, Symbicort,carvedilol 6.25 mg b.i.d., the dose has been cut down. Eliquis 5 mg b.i.d. doroteo hold and losartan 50 mg daily. She has been taken off amiodarone due to thebradycardia. SOCIAL HISTORY: The patient is an active smoker. There is no history ofalcohol or street drug use. PATIENT NAME: MADHAVI WHITTAKER FAMILY HISTORY: Negative for premature atherosclerosis. REVIEW OF SYSTEMS: Remarkable for the above in addition to asthma, sleep apnea,anemia, sciatica, arthritis. She uses walker for ambulation. She had a ministroke back in May 2008. No recent TIAs or strokes. PHYSICAL EXAMINATION:GENERAL: Reveals a pleasant middle-aged lady, in no acute distress.VITAL SIGNS: Blood pressure 145/95, pulse 75 and regular, respiratory rate 18and unlabored, and temperature afebrile.HEENT: Head, atraumatic and normocephalic. Eyes and ENT examination withinnormal for age.NECK: Supple. No jugular venous distention, bruits, or lymphadenopathy.Normal upstroke.LUNGS: Clear and resonant. Decreased air entry at the bases noted.HEART: Regular rate and rhythm with I/ systolic ejection murmur and I/VIdiastolic murmur at the mitral and aortic area respectively. No gallops.ABDOMEN: Soft, obese. No tenderness. No organomegaly. No masses or bruits.EXTREMITIES: A 2+ distal pulses. No edema, cyanosis, or clubbing.NEUROLOGIC: Alert and oriented x3. Examination appears to be nonfocal. LABORATORY DATA: Pending. Noninvasive cardiovascular workup enclosed. IMPRESSION: This is a 55-year-old lady with tachybrady syndrome, paroxysmalatrial fibrillation, sick sinus syndrome, sleep apnea, on CPAP with extremebradycardia on Holter monitor, heart rate down to 18 with long pauses 4.7seconds. The patient is here for dual-chamber permanent pacemaker implantation. The recommendation is to proceed with the above-mentioned procedure. Thepatient is right handed, so we will proceed on the left side. The recommendation is to proceed with the above. The risks and benefits of theplanned procedures were discussed in detail with the patient and she is willingto proceed. Rest as per orders. The patient was again advised strongly to quitsmoking. Dictated By: Greg Ortiz MD WT: PREOPHP:ARAM/TONYA/AVELDD: 08/05/2021 07:13:55DT: 08/05/2021 08:06:24Conf#: [id number]/DID#: [id number] and Edited by Greg Ortiz MD On 08/05/21 4:18:57 PM at 0421 PATIENT NAME: MADHAVI WHITTAKER and physical otnfvyxpenn3435-52-45F15:06:00Z.[id number] VAvailable for patient rmxqVLPPGYUNXXDZJC9372-84-52D58:22:10 [facility]
[2024-01-11] MEDS ORDERED: NA CHLORIDE 0.9% 250 ML ONE ×2 (18:26→19:55)
[2024-01-11 18:52] LABS: Absolute Lymphocytes (CBC) 3.4 K/uL (0.7-4.9); Hematocrit 45.9 % (36.0-45.0); Lymphocytes % 40.4 % (15.3-44.8); MPV 9.4 fL (7.6-11.3); Platelets 122 thou/uL (152-406); RBC Red Blood Cell Count 5.22 M/uL (3.86-4.86)
--- NOTE | 2024-01-11 18:56 | RAD REPORT ---
EXAM DESCRIPTION: RAD - Chest Single View - 01/11/2024 6:49 pm CLINICAL HISTORY: CHEST PAIN COMPARISON: Chest Single View dated 01/05/2024; Chest Single View dated 11/22/2021; Chest Single View dated 10/14/2021; Chest Single View dated 02/11/2021 FINDINGS: Lines: None. Lungs: Hazy bilateral opacities. Pleural: No significant pleural effusions or pneumothorax. Cardiac: Mild cardiomegaly. Pacemaker. Mediastinum: Within normal limits. Bones: No acute fractures. Other: None IMPRESSION: Hazy bilateral opacities could reflect edema.
[2024-01-11 18:57] LABS: Protime INR 1.27
[2024-01-11 19:20] LABS: Troponin High Sensitivity 6.8 pg/mL (<58.9)
[2024-01-11 19:39] LABS: Potassium 3.4 mEq/L (3.5-5.1)
--- NOTE | 2024-01-11 20:15 | RAD REPORT ---
EXAM DESCRIPTION: CT - Thorax Wo Con - 01/11/2024 8:01 pm CLINICAL HISTORY: CHEST PAIN COMPARISON: Lung Cancer Screening CT W/O dated 06/12/2023 FINDINGS: Chest Wall: No suspicious thyroid nodules or pathologic lymphadenopathy. Left upper chest wall pacemaker. Lungs: 5 mm right upper lobe pulmonary nodule on image 21, series 201 is unchanged since 06/12/2023 a nd almost certainly benign. No acute process in the lungs. Pleura: No significant effusions or pneumothorax. Mediastinum/tamela: No pathologic lymphadenopathy. Pulmonary arteries/Aorta: Limited evaluation without contrast. No aortic aneurysm. Heart: No significant pericardial effusion. Normal heart size. Mild coronary artery calcifications. Upper abdomen: No acute abnormality. Steatosis. Cholecystectomy. Bones: No acute abnormality. Bridging osteophytes in the spine. All CT scans are performed using dose optimization technique as appropriate and may include automated exposure control or mA/KV adjustment according to patient size. IMPRESSION: No acute findings within the chest.
[2024-01-11] MEDS ORDERED: NA CHLORIDE 0.9% 500 ML ONE (20:34)
--- NOTE | 2024-01-11 21:02 | ER ---
Nurse's Notes [facility] Name: Madhavi Michael Age: 58 yrs Sex: Female : 1965 Arrival Date: 01/11/2024 Time: 17:55 Bed 6 Private MD: Diagnosis: Chest pain, unspecified Presentation: 01/11 18:03 Chief complaint: EMS states: Left sided chest pain that radiates to left neck and arm x hb 1 week VS WNL. BGL 48, improved to 89 after 1/2 tube oral glucose. Coronavirus screen: At this time, the client does not indicate any symptoms associated with coronavirus-19. Ebola Screen: No symptoms or risks identified at this time. Initial Sepsis Screen: Does the patient meet any 2 criteria? No. Patient's initial sepsis screen is negative. Does the patient have a suspected source of infection? No. Patient's initial sepsis screen is negative. Risk Assessment: Do you want to hurt yourself or someone else? Patient reports no desire to harm self or others. Onset of symptoms was January 04, 2024. 18:03 Method Of Arrival: EMS: [facility] hb 18:03 Acuity: SISSY 3 hb Triage Assessment: 18:05 General: Appears in no apparent distress. Behavior is calm, cooperative. Pain: Pain hb currently is 10 out of 10 on a pain scale. Neuro: Level of Consciousness is awake, alert, obeys commands, Oriented to person, place, time, situation. Cardiovascular: Reports chest pain, Patient's skin is warm and dry. Respiratory: Respiratory effort is even, unlabored, Respiratory pattern is regular, symmetrical. Historical: - Allergies: 18:05 No Known Drug Allergies; hb - Home Meds: 18:05 Eliquis Oral [Active]; hb - PMHx: 18:05 Asthma; Atrial Fib; COPD; CVA; Diabetes - NIDDM; Leaking Veins x2 Right Leg; hb neuropathy; sciatica; Sleep Apnea; - PSHx: 18:05 pacemaker; hb - Immunization history:: Adult Immunizations up to date. - Social history:: Smoking status: Patient denies any tobacco usage or history of. - Family history:: not pertinent. - Hospitalizations: : Patient was recently seen at. Screenin:06 [facility] ED Fall Risk Assessment (Adult) Score/Fall Risk Level 3 or more points = High hb Risk Oriented to surroundings, Maintained a safe environment, Educated pt \T\ family on fall prevention, incl call for assistance when getting out of bed, Assessed \T\ reinforced patient's understanding of fall precautions, Provided non-skid footwear. Abuse screen: Denies threats or abuse. Denies injuries from another. Nutritional screening: No deficits noted. Tuberculosis screening: No symptoms or risk factors identified. Assessment: 18:06 General: Appears in no apparent distress. Behavior is calm, cooperative. Pain: Pain hb currently is 10 out of 10 on a pain scale. Neuro: Level of Consciousness is awake, alert, obeys commands, Oriented to person, place, time, situation. Cardiovascular: Reports chest pain, Patient's skin is warm and dry. Rhythm is regular. Respiratory: Respiratory effort is even, unlabored, Respiratory pattern is regular, symmetrical. GI: No signs and/or symptoms were reported involving the gastrointestinal system. : No signs and/or symptoms were reported regarding the genitourinary system. EENT: No signs and/or symptoms were reported regarding the EENT system. Derm: Skin is pink, warm \T\ dry. Musculoskeletal: No signs and/or symptoms reported regarding the musculoskeletal system. 20:18 General: Appears in no apparent distress. comfortable, Behavior is calm, cooperative. lg3 Pain: Complains of pain in chest Pain radiates to neck, left arm Pain currently is 3 out of 10 on a pain scale. Pain began 2-3 days ago. Neuro: No deficits noted. Woo Agitation-Sedation Scale (RASS): 0 - Alert and Calm Level of Consciousness is awake, alert, obeys commands, Oriented to person, place, time, situation. Cardiovascular: No deficits noted. Capillary refill < 3 seconds Clubbing of nail beds is absent JVD is absent Patient's skin is warm and dry. Respiratory: No deficits noted. Airway is patent Respiratory effort is even, unlabored, Respiratory pattern is regular, symmetrical. GI: No deficits noted. No signs and/or symptoms were reported involving the gastrointestinal system. Abdomen is round non-distended, obese. : No deficits noted. No signs and/or symptoms were reported regarding the genitourinary system. EENT: No deficits noted. No signs and/or symptoms were reported regarding the EENT system. Derm: No deficits noted. No signs and/or symptoms reported regarding the dermatologic system. Skin is intact, is healthy with good turgor, Skin is dry, Skin is normal, Skin temperature is warm. Musculoskeletal: No deficits noted. No signs and/or symptoms reported regarding the musculoskeletal system. Circulation, motion, and sensation intact. Range of motion: intact in all extremities. 21:15 Reassessment: Patient and/or family updated on plan of care and expected duration. Pain ha1 level reassessed. Patient is alert, oriented x 3, equal unlabored respirations, skin warm/dry/pink. 01/12 19:14 Reassessment: Pt resting in bed with eyes closed, respirations are even and unlabored jb4 with no s/s of pain or distress noted. 19:46 Reassessment: attempted to call report \T\ 193 on hold for 14minutes. jb4 20:05 Reassessment: attempted to call report to DAKSHA Myles no answer. jb4 Vital Signs: 01/11 18:03 Weight 129.73 kg; Height 5 ft. 7 in. ; Pain 10/10; hb 18:43 BP 87 / 65; Pulse 69; Resp 23; Pulse Ox 96% on R/A; hb 19:52 BP 92 / 68; Pulse 55; Resp 16 S; Pulse Ox 100% on R/A; ha1 20:02 BP 92 / 68; Pulse 59; ec2 20:18 BP 94 / 59; Pulse 65; Resp 21; Pulse Ox 100% on R/A; lg3 20:53 BP 106 / 75; Pulse 56; Resp 17 S; Pulse Ox 100% on R/A; ha1 21:16 BP 121 / 61; Pulse 77; Resp 17 S; Pulse Ox 100% on R/A; ha1 01/12 19:14 BP 117 / 65; Pulse 72; Resp 18; Pulse Ox 99% on R/A; jb4 01/11 18:03 Body Mass Index 44.79 (129.73 kg, 170.18 cm) hb 01/11 18:03 Pain Scale: Adult hb ED Course: 01/11 18:03 Patient arrived in ED. hb 18:05 Triage completed. hb 18:05 Arm band placed on. hb 18:06 Patient has correct armband on for positive identification. Client placed on continuous hb cardiac and pulse oximetry monitoring. NIBP monitoring applied. 18:07 Arnulfo Pelayo MD is Attending Physician. rn 18:33 Initial lab(s) drawn, by me, sent to lab. First set of blood cultures drawn by me. [email or web address] Inserted saline lock: 18 gauge in right antecubital area, using aseptic technique. Blood collected. 18:43 Basic Metabolic Panel Sent. hb 18:43 CBC with Diff Sent. hb 18:43 NT PRO-BNP Sent. hb 18:43 Troponin HS Sent. hb 18:43 Blood Culture Adult (2) Sent. hb 18:43 Lactate w/ 2H reflex if indic. Sent. hb 18:43 Protime (+inr) Sent. hb 18:51 XRAY Chest (1 view) In Process Unspecified. EDMS 20:01 Attending Physician role handed off by Arnulfo Pelayo MD ec2 20:01 Marv Sanders MD is Attending Physician. ec2 20:04 Thorax Wo Con In Process Unspecified. EDMS 21:01 Bry Lewis MD is Hospitalizing Provider. ec2 21:21 Troponin High Sensitivity Sent. lg3 02 20:22 No provider procedures requiring assistance completed. Patient admitted, IV remains in jb4 place. Patient maintains SpO2 saturation greater than 95% on room air. Administered Medications: 02 18:43 Drug: NS 0.9% IV 250 ml IV at 1 bolus once Route: IV; Rate: 1 bolus; Site: right hb antecubital; 20:21 Follow up: IV Status: Completed infusion; IV Intake: 250ml lg3 20:16 Drug: NS 0.9% IV 250 ml IV at bolus once Route: IV; Rate: bolus; Site: right lg3 antecubital; 21:21 Follow up: IV Status: Completed infusion; IV Intake: 250ml lg3 20:37 Drug: NS 0.9% IV 500 ml IV at bolus once Route: IV; Rate: bolus; Site: right ha1 antecubital; 21:21 Follow up: IV Status: Completed infusion; IV Intake: 500ml lg3 21:27 Drug: morphine IVP or IV 2 mg IVP once over 4 mins Route: IVP; Infused Over: 4 mins; ha1 Site: right antecubital; Medication: 18:06 VIS not applicable for this client. hb Intake: 20:21 IV: 250ml; Total: 250ml. lg3 21:21 IV: 250ml; Total: 500ml. lg3 21:21 IV: 500ml; Total: 1000ml. lg3 Outcome: 21:01 Decision to Hospitalize by Provider. ec2 01/12 20:22 Admitted to Med/surg accompanied by nurse, via wheelchair, room 212, with chart, Report jb4 called to DAKSHA Myles Condition: stable Discharge instructions given to patient, Instructed on the need for admit, Demonstrated understanding of instructions, 20:23 Patient left the ED. jb4 Signatures: Dispatcher [employer] EDMS Arnulfo Pelayo MD MD rn Baxter, Heather RN RN Sidney Bravo RN RN jb4 Shanelle Vail RN RN lg3 Coral Song RN RN ha1 Corral, Edwin, MD MD ec2 Major Montaño jg11
--- NOTE | 2024-01-11 21:02 | EDPHYS ---
Physician Documentation [facility] Name: Madhavi Michael Age: 58 yrs Sex: Female : 1965 Arrival Date: 01/11/2024 Time: 17:55 Bed 6 Private MD: ED Physician Marv Sanders HPI: 01/11 18:38 This 58 yrs old Black Female presents to ER via EMS with complaints of Chest Pain. rn 18:38 The patient or guardian reports chest pain that is located primarily in the anterior rn chest wall, left. Onset: 1 week(s) ago. The pain radiates to the left arm. Associated signs and symptoms: Pertinent positives: shortness of breath, Pertinent negatives: abdominal pain, palpitations. The chest pain is described as aching, sharp, stabbing. Duration: The patient or guardian reports multiple episodes, that are intermittent. Modifying factors: The symptoms are alleviated by nothing. the symptoms are aggravated by deep breath. Severity of pain: At its worst the pain was moderate in the emergency department the pain has improved. The patient has not experienced similar symptoms in the past. Patient reports recently admitted to a hospital with fluid in the lungs and flu. A lot of fluid was taken off and put on Tamiflu and levofloxacin. Since admission has been having left-sided chest pain that got worse over the last 2 days. Worse with deep inspiration. No history of DVT or PE. No trauma. Reports left-sided pain radiates to the left arm.. Historical: - Allergies: 18:05 No Known Drug Allergies; hb - Home Meds: 18:05 Eliquis Oral [Active]; hb - PMHx: 18:05 Asthma; Atrial Fib; COPD; CVA; Diabetes - NIDDM; Leaking Veins x2 Right Leg; hb neuropathy; sciatica; Sleep Apnea; - PSHx: 18:05 pacemaker; hb - Immunization history:: Adult Immunizations up to date. - Social history:: Smoking status: Patient denies any tobacco usage or history of. - Family history:: not pertinent. - Hospitalizations: : Patient was recently seen at. ROS: 18:38 Constitutional: Negative for fever, chills, and weight loss, Neck: Negative for injury, rn pain, and swelling, Cardiovascular: Positive for chest pain Respiratory: Positive for shortness of breath and pleuritic chest pain Abdomen/GI: Negative for abdominal pain, nausea, vomiting, diarrhea, and constipation, MS/Extremity: Negative for injury and deformity, Skin: Negative for injury, rash, and discoloration, Neuro: Positive for generalized weakness and dizziness Exam: 18:38 Constitutional: This is a well developed, well nourished patient who is awake, alert, rn and in no acute distress. Head/Face: Normocephalic, atraumatic. ENT: Dry mucous membranes Cardiovascular: Regular rate. No pulse deficits. Respiratory: No increased work of breathing, no retractions or nasal flaring. Abdomen/GI: Soft, nontender MS/ Extremity: Pulses equal, no cyanosis. Equal circumference and no pitting edema. Painful range of motion left arm but no weakness appreciated Neuro: Awake and alert, GCS 15, equal strength throughout. Sensation intact. 19:33 ECG was reviewed by the Attending Physician. rn Vital Signs: 18:03 Weight 129.73 kg; Height 5 ft. 7 in. ; Pain 10/10; hb 18:43 BP 87 / 65; Pulse 69; Resp 23; Pulse Ox 96% on R/A; hb 19:52 BP 92 / 68; Pulse 55; Resp 16 S; Pulse Ox 100% on R/A; ha1 20:02 BP 92 / 68; Pulse 59; ec2 20:18 BP 94 / 59; Pulse 65; Resp 21; Pulse Ox 100% on R/A; lg3 20:53 BP 106 / 75; Pulse 56; Resp 17 S; Pulse Ox 100% on R/A; ha1 21:16 BP 121 / 61; Pulse 77; Resp 17 S; Pulse Ox 100% on R/A; ha1 01/12 19:14 BP 117 / 65; Pulse 72; Resp 18; Pulse Ox 99% on R/A; jb4 01/11 18:03 Body Mass Index 44.79 (129.73 kg, 170.18 cm) hb 01/11 18:03 Pain Scale: Adult hb MDM: 01/11 18:07 Patient medically screened. rn 20:03 Transition of care: Care assumed from Arnulfo Pelayo MD. ED course: Patient signed out to ec2 me w/ pending reassessment. Pt arrives with chest pain, recent admission for diuresis, suspect over diuresis causing the patient's hypotension. Plan is to follow up Ct chest, reassess the patient and possible admit vs d/c. . 20:04 Data reviewed: vital signs. ec2 20:09 ED course: Metabolic profile shows slight hypokalemia with a potassium of 3.4, renal ec2 dysfunction with creatinine 1.74 and a GFR of 33, CBC with no actionable findings, troponin within normal ranges, BMP within normal ranges, chest x-ray shows likely edema, pending CT imaging. Lactate within normal ranges. . 20:19 ED course: CT scan of the chest shows no acute intrathoracic process.. ec2 21:01 ED course: Patient with persistent chest pain, will admit for chest pain evaluation, ec2 discussed with hospitalist, pending admission.. 01/11 18:17 Order name: Basic Metabolic Panel; Complete Time: 19:40 01/11 18:17 Order name: CBC with Diff; Complete Time: 19:40 01/11 18:17 Order name: NT PRO-BNP; Complete Time: 19:40 01/11 18:17 Order name: Troponin HS; Complete Time: 19:40 01/11 18:17 Order name: Blood Culture Adult (2) rn 01/11 18:17 Order name: Lactate w/ 2H reflex if indic.; Complete Time: 19:40 01/11 18:17 Order name: Protime (+inr); Complete Time: 19:40 01/11 18:17 Order name: Ptt, Activated; Complete Time: 19:40 01/11 18:53 Order name: Glucose, Ancillary Testing; Complete Time: 19:40 [facility] 01/11 20:31 Order name: Glucose, Ancillary Testing; Complete Time: 20:36 EDKS 01/11 20:58 Order name: Troponin High Sensitivity ec2 01/11 22:05 Order name: Troponin High Sensitivity EDMS 01/11 22:05 Order name: Troponin High Sensitivity EDMS 01/11 22:05 Order name: Troponin High Sensitivity EDMS 01/11 22:05 Order name: Troponin High Sensitivity EDMS 01/11 22:31 Order name: Glucose, Ancillary Testing EDKS 01/12 00:36 Order name: Glucose, Ancillary Testing EDMS 01/12 07:19 Order name: Glucose, Ancillary Testing EDMS 01/12 08:50 Order name: Basic Metabolic Panel EDKS 01/12 08:50 Order name: Magnesium EDMS 01/12 11:48 Order name: Glucose, Ancillary Testing EDMS 01/12 13:07 Order name: Glucose, Ancillary Testing EDMS 01/12 17:16 Order name: Glucose, Ancillary Testing EDKS 01/11 18:17 Order name: XRAY Chest (1 view); Complete Time: 19:40 rn 01/11 19:47 Order name: Thorax Wo Con; Complete Time: 20:19 EDMS 01/11 18:17 Order name: EKG; Complete Time: 18:18 rn 01/11 18:17 Order name: Cardiac monitoring; Complete Time: 18:43 rn 01/11 18:17 Order name: EKG - Nurse/Tech; Complete Time: 18:43 rn 01/11 18:17 Order name: IV Saline Lock; Complete Time: 18:43 rn 01/11 18:17 Order name: Labs collected and sent; Complete Time: 18:43 rn 01/11 18:17 Order name: O2 Per Protocol; Complete Time: 18:43 rn 01/11 18:17 Order name: O2 Sat Monitoring; Complete Time: 18:43 rn 01/11 18:17 Order name: Accucheck; Complete Time: 18:43 rn 01/11 18:17 Order name: IV Saline Lock - Large Bore; Complete Time: 18:43 rn 01/11 18:17 Order name: Vital Signs; Complete Time: 18:43 rn 01/11 20:58 Order name: EKG - Nurse/Tech; Complete Time: 21:21 ec2 EC:33 Rate is 64 beats/min. Rhythm is regular. QRS Bricelyn is Normal. SC interval is normal. QRS rn interval is normal. QT interval is normal. No Q waves. T waves are Normal. No ST changes noted. Clinical impression: NSR w/ Non-specific ST/T Changes. Interpreted by me. Reviewed by me. Administered Medications: 18:43 Drug: NS 0.9% IV 250 ml IV at 1 bolus once Route: IV; Rate: 1 bolus; Site: right hb antecubital; 20:21 Follow up: IV Status: Completed infusion; IV Intake: 250ml lg3 20:16 Drug: NS 0.9% IV 250 ml IV at bolus once Route: IV; Rate: bolus; Site: right lg3 antecubital; 21:21 Follow up: IV Status: Completed infusion; IV Intake: 250ml lg3 20:37 Drug: NS 0.9% IV 500 ml IV at bolus once Route: IV; Rate: bolus; Site: right ha1 antecubital; 21:21 Follow up: IV Status: Completed infusion; IV Intake: 500ml lg3 21:27 Drug: morphine IVP or IV 2 mg IVP once over 4 mins Route: IVP; Infused Over: 4 mins; ha1 Site: right antecubital; Disposition Summary: 01/11/24 21:01 Hospitalization Ordered Notes: Hospitalization Status: Inpatient Admission ec2 Provider: Bry Lewis ec2 Condition: Stable ec2 Problem: an acute exacerbation ec2 Symptoms: have improved ec2 Bed/Room Type: Standard ec2 Location: Telemetry/MedSurg (Inpatient)(01/12/24 17:47) Room Assignment: [facility](01/12/24 17:47) Diagnosis - Chest pain, unspecified ec2 Forms: - Medication Reconciliation Form ec2 - SBAR form ec2 - Leadership Thank You Letter ec2 Signatures: Dispatcher [employer] [facility] Arnulfo Pelayo MD MD rn Garcia, Cindy RN RN Conchis Hutchins RN RN Aide Malik Shanelle Vail RN RN lg3 Coral Song RN RN ha1 Marv Sanders MD MD ec2 Corrections: (The following items were deleted from the chart) 19:47 18:18 Chest For PE Angio+CT.RAD.BRZ ordered. EDKS EDKS 22:27 21:01 Telemetry/MedSurg (Inpatient) ec2 cg 22:27 21:01 ec2 cg 01/12 17:47 01/11 22:27 [facility] ER HOLD cg eb 01/12 17:47 16 22:27 ERHOLD- cg eb
[2024-01-11] MEDS ORDERED: MORPHINE 2 MG/ML SYR ONE (21:23)
[2024-01-11] MEDS ORDERED: MAGNESIUM HYDROXIDE 8% 30 ML PO PRN (21:54)
[2024-01-11] MEDS: NA CHLORIDE 0.9% 1,000 ML IV SCH (22:00)
--- NOTE | 2024-01-11 22:04 | P.HP ---
Certification for Inpatient Patient admitted to: Observation With expected LOS: <2 Midnights Practitioner: I am a practitioner with admitting privileges, knowledge of patient current condition, hospital course, and medical plan of care. Services: Services provided to patient in accordance with Admission requirements found in Title 42 Section 412.3 of the Code of Federal Regulations Patient History Date of Service: 01/12/24 Reason for admission: Chest pain, volume depletion. History of Present Illness: 58-year-old male patient with medical history significant for hypertension, hyperlipidemia, history of CHF and COPD who was evaluated for episode of chest tightness and pain. She reports chest tightness which is retrosternal in nature rated 5 out of 10 in intensity. No radiation to the jaw or neck. She did have low blood pressure episode as she was on diuretic therapy as per prior admission earlier in the month of December. She was started IV fluid bolus and was asked to be evaluated for inpatient monitoring and chest pain eval. Allergies No Known Drug Allergies Allergy (Verified 12/25/19 09:58) Unknown Home Medications: Apixaban [Eliquis *] 2.5 mg PO DAILY 10/10/19 Budesonide/Formoterol Fumarate [Symbicort 160-4.5 Mcg Inhaler] 1 puff IH BIDP PRN 10/10/19 Fluticasone [Flovent Hfa 110*] 2 puff IH BID PRN 10/10/19 Gabapentin 600 mg PO TID 10/10/19 Hydrocodone 10/APAP 325 [Brainerd 10/325*] 1 tab PO TIDP PRN 10/10/19 Montelukast Sodium [Singulair] 10 mg PO DAILY 10/10/19 Omeprazole [Prilosec] 40 mg PO DAILY 10/10/19 predniSONE [Prednisone*] 10 mg PO DAILY 10/10/19 Furosemide [Lasix*] 20 mg PO DAILY 10/14/21 Losartan Potassium 25 mg PO DAILY 10/14/21 Amiodarone HCl [Cordarone*] 200 mg PO BID #40 tab 10/15/21 carvediloL [Carvedilol] 12.5 mg PO BID #60 tablet 10/15/21 Apixaban [Eliquis *] 2.5 mg PO BID 01/06/24 Oseltamivir [Tamiflu*] 75 mg PO BID 5 Days #5 cap 01/06/24 Spironolactone [Aldactone*] 25 mg PO BID 10 Days #10 tab 01/06/24 levoFLOXacin [Levaquin*] 750 mg PO DAILY 5 Days #5 tab 01/06/24 - Past Medical/Surgical History Diabetic: Yes -: Asthma -: Diabetes mellitus type 2 -: Hyperlipidemia -: Hypertension -: Obstructive sleep apnea -: Tobacco abuse -: Atrial fibrillation -: Chronic anti coagulation -: Obesity -: Cholecystectomy -: Tubal ligation -: Hysterectomy -: Right knee replacement -: hernia repair Psychosocial/ Personal History: The patient is currently . She has 3 children. She does not work. - Family History Mother -: Hypertension - Social History Alcohol use: No CD- Drugs: No Caffeine use: Yes Review of Systems General: Weakness Eyes: Unremarkable ENT: Unremarkable Respiratory: Unremarkable Cardiovascular: Chest Pain Gastrointestinal: Unremarkable Genitourinary: Unremarkable Musculoskeletal: Unremarkable Neurological: Unremarkable Lymphatics: Unremarkable Physical Examination - Physical Exam General: Alert, Oriented x3 HEENT: Atraumatic Neck: Supple Respiratory: Normal air movement Cardiovascular: Regular rate/rhythm, Normal S1 S2 Gastrointestinal: Soft and benign Musculoskeletal: No swelling Neurological: Normal speech, Normal strength at 5/5 x4 extr - Studies Laboratory Data (last 24 hrs) 01/11/24 01/11/24 01/11/24 18:33 18:33 18:33 WBC 8.30 Hgb 15.4 H Hct 45.9 H Plt Count 122 L PT 13.9 H INR 1.27 APTT 27.1 Sodium 140 Potassium 3.4 L BUN 25 H Creatinine 1.74 H Glucose 110 H Assessment and Plan - Plan Chest pain/discomfort: Patient has significant concern for possible ACS. Continue on telemetry, trend troponin and continue aspirin therapy. Will monitor vitals closely and perhaps have cardiology evaluate as deemed necessary. Hypotension: Patient was on diuretic therapy at home. Will stop diuretic therapy for now and put on gentle hydration with isotonic normal saline. Will monitor vitals and continue to follow orthostatic vitals. VENESSA: Creatinine is elevated at 1.74. Last known baseline is less than 1. Will hydrate with fluid and monitor trend closely. Hypokalemia: Potassium is low at 3.4. Will replete and follow levels on daily labs. COPD: Will continue breathing treatment Hyperlipidemia: Continue statin therapy and obtain lipid panel to assess adequacy of therapy. Prophylaxis: Lovenox for DVT prophylaxis. CODE STATUS: Full code. Disposition: We will treat her chest pain episode and she will be discharged when clinically stable and cleared by cardiology service. - Advance Directives Does patient have a Living Will: No Does patient have a Durable POA for Healthcare: No
[2024-01-11 23:04] VITALS: BMI 44.8
[2024-01-11] MEDS ORDERED: NA CHLORIDE 0.9% 1,000 ML ONE (23:30)
[2024-01-11] MEDS: TRAMADOL HCL 50 MG TAB PO ONE (23:54)
[2024-01-12] MEDS ORDERED: TRAMADOL HCL 50 MG TAB ONE (00:01)
[2024-01-12] MEDS ORDERED: ONDANSETRON 4 MG/2 ML VIAL ONE (00:01)
[2024-01-12] MEDS: ONDANSETRON 4 MG/2 ML VIAL IV PRN (00:06)
[2024-01-12] MEDS: POTASSIUM CL SA 10 MEQ TAB PO ONE (05:21)
[2024-01-12] MEDS ORDERED: POTASSIUM CL SA 10 MEQ TAB PO ONE (05:56)
[2024-01-12] MEDS ORDERED: ACETAMINOPHEN 325 MG TABLET ONE (06:00)
[2024-01-12] MEDS: ACETAMINOPHEN 325 MG TABLET PO PRN (06:02)
[2024-01-12] MEDS: INSULIN REGULAR (HUMAN) 100 UNIT/ML SQ SCH (07:10)
[2024-01-12 08:46] LABS: Magnesium 1.9 mg/dL (1.6-2.4); Potassium 3.9 mEq/L (3.5-5.1)
[2024-01-12] MEDS ORDERED: ENOXAPARIN 40 MG/0.4 ML SQ ONE (08:47)
[2024-01-12] MEDS: ENOXAPARIN 40 MG/0.4 ML SQ SCH (08:56)
--- NOTE | 2024-01-12 10:30 | P.PN ---
Date of Service: 01/12/24 Subjective: persistent chest pain for ~1 week. similar pain from last hospitalization week ago. reports compliance with home meds. +new abdominal pain / cramps that started last night Breathing more comfortably on 2L NC afebrile ROS: 10 point ROS as noted above, otherwise negative Physical Exam: GEN: Alert, oriented, NAD HEENT: Normal conjunctiva, sclera anicteric, CV: Regular rate and rhythm (paced), no edema Pulm: Nonlabored respirations on 2LNC clear bilaterally ABD: soft, mild epigastric tenderness Integumentary: No rashes Neuro: Normal speech, normal affect Problem List: Chest pain / pressure VENESSA, suspect pre-renal Hypotension Chronic CHF Chronic COPD / Obstructive sleep apnea a-fib on chronic anticoagulation with pacemaker in place NIDDM2 Hyperlipidemia Sciatica hx Hypertension hx of CVA hx of tobacco use Chest pain / pressure persistent chest pain for ~1 week. similar pain from last hospitalization last week. CXR (01/11): hazy bilateraly opacities could reflect edema CT chest (01/11): no acute findings. mild coronary artery calcifications. steatosis. Cardiology consulted troponins negative x3. monitor on telemetry PRN analgesics / antiemetics VENESSA, suspect pre-renal Hypotension Chronic CHF Patient reports decreased PO intake / low blood pressure since last hospitalization ~1 week ago. Suspect multifactorial etiology secondary to dehydration / poor PO intake / ?possibly complicated by overdiuresis - ?new aldactone prescribed last hospitalization continue to monitor renal function continue IV fluids creatinine improving Chronic COPD / Obstructive sleep apnea wean oxygen as tolerated. currently on 2L NC. uses CPAP at night. confirm home meds a-fib on chronic anticoagulation with pacemaker in place takes eliquis at home. Has pacemaker in place restart home coreg hx Hypertension hold home antihypertensives for now given soft BP NIDDM2 Hyperlipidemia Sciatica hx of CVA confirm home meds, restart as appropriate VTE: Lovenox Code: Full Dispo: Home, ~1-2 days Pending cardiac recs, renal function improves
[2024-01-12] MEDS ORDERED: SODIUM CHLORIDE 0.9% 10ML INJ IV PRN (17:02)
[2024-01-12] MEDS ORDERED: SUCRALFATE 1GM/10ML UCUP ONE (19:00)
[2024-01-12] MEDS: SUCRALFATE 1GM/10ML UCUP PO SCH (19:00)
[2024-01-12] MEDS: APIXABAN 2.5 MG TABLET PO SCH (21:47)
[2024-01-12] MEDS: carvediloL 12.5 MG TAB PO SCH (21:47)
[2024-01-12] MEDS: PANTOPRAZOLE 40 MG INJ IVP SCH (21:47)
[2024-01-12 23:52] LABS: Specific Gravity 1.026 (1.005-1.030); Urine Bacteria None Seen /HPF (<20); Urine Bilirubin NEGATIVE (Negative); Urine Blood Negative (Negative); Urine Clarity Extremely Turbid (Clear); Urine Color Yellow (Yellow); Urine Glucose NEGATIVE (Negative); Urine Protein TRACE (Negative); Urine RBC <5 /HPF (None Seen); Urine Urobilinogen 1+ (Normal); Urine pH 5.5 (5.0-7.0)
[2024-01-13 00:36] VITALS: O2SAT 94
[2024-01-13 03:18] LABS: Absolute Lymphocytes (CBC) 2.9 K/uL (0.7-4.9); Hematocrit 41.9 % (36.0-45.0); Lymphocytes % 46.7 % (15.3-44.8); MCV 89.2 fL (80-100); MPV 9.8 fL (7.6-11.3); Platelets 109 thou/uL (152-406)
[2024-01-13 03:39] LABS: Potassium 4.4 mEq/L (3.5-5.1)
[2024-01-13] MEDS ORDERED: PANTOPRAZOLE 40MG TABLET PO SCH (06:30)
[2024-01-13] MEDS: GABAPENTIN 300 MG CAP PO SCH (08:06)
--- NOTE | 2024-01-13 09:37 | P.PN ---
Date of Service: 01/13/24 Subjective: feels a little better today abdominal pain continues; feels some relief after carafate / PPI chest pain resolved afebrile ROS: 10 point ROS as noted above, otherwise negative Physical Exam: GEN: Alert, oriented, NAD HEENT: Normal conjunctiva, sclera anicteric, CV: Regular rate and rhythm (paced), no edema Pulm: Nonlabored respirations on 2LNC clear bilaterally ABD: soft, mild epigastric tenderness Integumentary: No rashes Neuro: Normal speech, normal affect Problem List: Chest pain / pressure, resolved VENESSA, suspect pre-renal; improving Hypotension, improved Abdominal pain Chronic CHF Chronic COPD / Obstructive sleep apnea a-fib on chronic anticoagulation with pacemaker in place NIDDM2 Hyperlipidemia Sciatica hx Hypertension hx of CVA hx of tobacco use Chest pain / pressure, resolved persistent chest pain for ~1 week. similar pain from last hospitalization last week. CXR (01/11): hazy bilateraly opacities could reflect edema CT chest (01/11): no acute findings. mild coronary artery calcifications. steatosis. Cardiology consulted troponins negative x3. monitor on telemetry PRN analgesics / antiemetics VENESSA, suspect pre-renal; improving Hypotension, improved Chronic CHF Patient reports decreased PO intake / low blood pressure since last hospitalization ~1 week ago. Suspect multifactorial etiology secondary to dehydration / poor PO intake / ?possibly complicated by overdiuresis - ?new aldactone prescribed last hospitalization continue to monitor renal function IV fluids dc'd 01/12 diuretics on hold creatinine improving Abdominal pain patient reports epigastric / substernal pain. +hurts when swallowing as well on further discussion, patient states she has been taking ibuprofen 600-800mg twice daily most days for "a long time" and over the last ~1 week, she has been taking 800mg 3-4 times / day current pain seems more GERD/ulcer related continue PPI BID IV. carafate added 01/12 felt some relief after starting protonix / carafate discussed avoiding ibuprofen no oral lesions, and HPI not consistent with thrush, however on differential if no improvement discussed would benefit from outpatient EGD in near future Chronic COPD / Obstructive sleep apnea wean oxygen as tolerated. currently on 2L NC. uses CPAP at night. confirm home meds a-fib on chronic anticoagulation with pacemaker in place resume hold eliquis. Has pacemaker in place continue home coreg hx Hypertension hold home antihypertensives for now given soft BP NIDDM2 Hyperlipidemia Sciatica hx of CVA continue home meds as appropriate VTE: home eliquis restarted 01/12 Code: Full Dispo: Home, ~1-2 days Pending cardiac recs, renal function improves
[2024-01-13 13:09] VITALS: BP 110/67; TEMP 96.9
--- NOTE | 2024-01-14 08:10 | P.DS ---
Admission Date: 01/11/24 Discharge Date: 01/13/24 Disposition: ROUTINE DISCHARGE Discharge Condition: GOOD Reason for Admission: Chest pain, volume depletion. Consultations: Cardiology - Dr. Thomas Brief History of Present Illness: 58yo F, PMH: hypertension, hyperlipidemia, history of CHF and COPD Patient who was evaluated for episode of chest tightness and pain. She reports chest tightness which is retrosternal in nature rated 5 out of 10 in intensity. No radiation to the jaw or neck. She did have low blood pressure episode as she was on diuretic therapy as per prior admission earlier in the month of December. She was started IV fluid bolus and was asked to be evaluated for inpatient monitoring and chest pain eval. Hospital Course: Problem List: Chest pain / pressure, resolved VENESSA, suspect pre-renal; improving Hypotension, improved Abdominal pain Chronic CHF Chronic COPD / Obstructive sleep apnea a-fib on chronic anticoagulation with pacemaker in place NIDDM2 Hyperlipidemia Sciatica hx Hypertension hx of CVA hx of tobacco use Patient presented with chest tightness/pressure, low blood pressure. CT chest was negative for any acute findings, noted mild coronary artery calcifications. Troponins were negative x3. BNP within normal limits. Serum creatinine was 1.74 on admission. Patient reported low blood pressure / decreased PO intake last few days since discharge from recent hospitalization ~1 week ago. On further review, patient was noted to have new prescription of aldactone added last hospitalization as well. Patient had improvement with IV fluids and holding her home diuretics and anti-hypertensive medication. Presentation most consistent with pre-renal / hypovolemic VENESSA - secondary to decreased PO intake / dehydration, in setting of continuing diuretics. Cardiology was consulted. Recommended to follow up as outpatient for further work up / management of CHF. No further cardiac work up this hospitalization. Patient's initial left sided / substernal pain turned into mostly just substernal / epigastric pain the following day after admission. On further discussion, patient states she has been taking ibuprofen 600-800mg twice daily most days for "a long time" and over the last ~1 week, she has been taking 800mg 3-4 times / day. This in combination of recent hospitalization / steroid use, would significantly increase her risk of developing gastric ulcer. Her symptoms were also more consistent with GERD / gastric ulcer. She was switched to Protonix twice daily and carafate added. She had some improvement of her symptoms. She was tolerating a regular diet with the above regimen, and deemed stable for discharge home. Recommend to continue holding her lasix and blood pressure medication for the next few days. Once she is back to eating/drinking more regularly and when blood pressure >130 systolic, to restart her medications. Advised patient to follow up with PCP / GI in near future for further discussion and consider EGD for further evaluation. Discussed with patient to avoid taking ibuprofen. Okay to take tylenol. Medications: Protonix avoid taking ibuprofen. Okay to take tylenol. Patients lasix, aldactone, and losartan were held this hospitalization due to VENESSA / hypotension. Advised to continue to hold as noted above. Check blood pressure daily. Follow up: PCP 3-5 days Cardiology 2-4 weeks GI in near future for EGD Physical Exam: GEN: Alert, oriented, NAD HEENT: Normal conjunctiva, sclera anicteric, CV: Regular rate and rhythm (paced), no edema Pulm: Nonlabored respirations on room air clear bilaterally ABD: soft, mild epigastric tenderness Neuro: Normal speech, normal affect Vital Signs/Physical Exam: Temp Pulse Resp BP Pulse Ox 96.9 F 65 16 110/67 96 01/13/24 12:00 01/13/24 12:00 01/13/24 12:00 01/13/24 12:00 01/13/24 12:00 Laboratory Data at Discharge: WBC 6.30 thou/uL (4.3-10.9) 01/13/24 02:29 Hgb 13.8 g/dL (12.0-15.0) 01/13/24 02:29 Hct 41.9 % (36.0-45.0) 01/13/24 02:29 Plt Count 109 thou/uL (152-406) L 01/13/24 02:29 PT 13.9 SECONDS (9.5-12.5) H 01/11/24 18:33 INR 1.27 01/11/24 18:33 APTT 27.1 SECONDS (24.3-36.9) 01/11/24 18:33 Sodium 141 mEq/L (136-145) 01/13/24 02:29 Potassium 4.4 mEq/L (3.5-5.1) 01/13/24 02:29 BUN 14 mg/dL (7-18) 01/13/24 02:29 Creatinine 1.08 mg/dL (0.55-1.02) H 01/13/24 02:29 Glucose 91 mg/dL (74-106) 01/13/24 02:29 Magnesium 2.0 mg/dL (1.6-2.4) 01/13/24 02:29 Home Medications: RX: Apixaban [Eliquis *] 2.5 mg PO DAILY 10/10/19 RX: Gabapentin 600 mg PO TID 10/10/19 RX: Hydrocodone 10/APAP 325 [[place] 10/325*] 1 tab PO TIDP PRN 10/10/19 RX: Furosemide [Lasix*] 80 mg PO DAILY 10/14/21 RX: Losartan Potassium 100 mg PO DAILY 10/14/21 RX: Spironolactone [Aldactone*] 25 mg PO BID 10 Days #10 tab 01/06/24 RX: Fluticasone/Umeclidin/Vilanter [Trelegy Ellipta 200-62.5-25] 1 puff IH DAILY 01/12/24 RX: Metformin ER [Glucophage ER*] 500 mg PO DAILY 01/12/24 RX: Potassium Chloride 20 meq PO DAILY 01/12/24 RX: carvediloL [Carvedilol] 25 mg PO BID 01/12/24 RX: Pantoprazole [Protonix Tab*] 40 mg PO BID 30 Days #60 tab 01/13/24 Sucralfate [Carafate] 1 gm PO ACHS 30 Days #120 tab 01/13/24 New Medications: Sucralfate [Carafate] 1 gm PO ACHS 30 Days #120 tab RX: Pantoprazole [Protonix Tab*] 40 mg PO BID 30 Days #60 tab Physician Discharge Instructions: Patient presented with chest tightness/pressure, low blood pressure. CT chest was negative for any acute findings, noted mild coronary artery calcifications. Troponins were negative x3. BNP within normal limits. Serum creatinine was 1.74 on admission. Patient reported low blood pressure / decreased PO intake last few days since discharge from recent hospitalization ~1 week ago. On further review, patient was noted to have new prescription of aldactone added last hospitalization as well. Patient had improvement with IV fluids and holding her home diuretics and anti-hypertensive medication. Presentation most consistent with pre-renal / hypovolemic VENESSA - secondary to decreased PO intake / dehydration, in setting of continuing diuretics. Cardiology was consulted. Recommended to follow up as outpatient for further work up / management of CHF. No further cardiac work up this hospitalization. Patient's initial left sided / substernal pain turned into mostly just substernal / epigastric pain the following day after admission. On further discussion, patient states she has been taking ibuprofen 600-800mg twice daily most days for "a long time" and over the last ~1 week, she has been taking 800mg 3-4 times / day. This in combination of recent hospitalization / steroid use, would significantly increase her risk of developing gastric ulcer. Her symptoms were also more consistent with GERD / gastric ulcer. She was switched to Protonix twice daily and carafate added. She had some improvement of her symptoms. She was tolerating a regular diet with the above regimen, and deemed stable for discharge home. Recommend to continue holding her lasix and blood pressure medication for the next few days. Once she is back to eating/drinking more regularly and when blood pressure >130 systolic, to restart her medications. Advised patient to follow up with PCP / GI in near future for further discussion and consider EGD for further evaluation. Discussed with patient to avoid taking ibuprofen. Okay to take tylenol. Medications: Protonix avoid taking ibuprofen. Okay to take tylenol. Patients lasix, aldactone, and losartan were held this hospitalization due to VENESSA / hypotension. Advised to continue to hold as noted above. Check blood pressure daily. Follow up: PCP 3-5 days Cardiology 2-4 weeks GI in near future for EGD Followup: Xochilt Le MD [Primary Care Provider] - Time spent managing pt's care (in minutes): 45
--- NOTE | 2024-01-14 11:02 | EKG ---
Test Date: 2024-01-11 Test Time: 21:10:57 [employer] Optics Supervisor: JAYCOB MEASUREMENT RESULTS: Intervals: Rate: 55 W[place]: 164 QRSD: 86 QT: 360 QTc: 344 [place]: P: 52 [place]: 164 QRS: 5 T: 26 INTERPRETIVE STATEMENTS: Atrial-paced rhythm Nonspecific T wave abnormality Abnormal ECG Compared to ECG 01/11/2024 18:38:14 Sinus rhythm no longer present T-wave abnormality still present Electronically Signed On 01-14-24 10:58:27 [employer]LE FRAME CONSTRUCTION WORKER by Luis Carlos Hwang
--- NOTE | 2024-01-14 11:02 | EKG ---
Test Date: 2024-01-11 Test Time: 18:38:14 Business Objects: HB MEASUREMENT RESULTS: Intervals: Rate: 64 [place]: 174 QRSD: 84 QT: 374 QTc: 385 [place]: P: 42 [place]: 174 QRS: 7 T: -15 INTERPRETIVE STATEMENTS: Normal sinus rhythm Nonspecific T wave abnormality Abnormal ECG Compared to ECG 01/05/2024 05:52:26 T-wave abnormality now present ST (T wave) deviation no longer present Electronically Signed On 01-14-24 10:58:41 DEVOPS CONSULTANT by Luis Carlos Hwang
== END 2024-01-13 16:30 | disposition home or self-care (01) ==
LOC: ER 17:55 → ERHOLD 21:24 → 2ND 01-12 17:58
PROVIDERS: ADMIT Internal Medicine Nephrology; ATTEND Hospitalist
DX: R07.9 Chest pain, unspecified (principal); K21.9 Gastro-esophageal reflux disease without esophagitis; I10 Essential (primary) hypertension; E78.5 Hyperlipidemia, unspecified; I50.9 Heart failure, unspecified; I48.11 Longstanding persistent atrial fibrillation; E11.9 Type 2 diabetes mellitus without complications; M54.30 Sciatica, unspecified side; J44.9 Chronic obstructive pulmonary disease, unspecified; N17.9 Acute kidney failure, unspecified; R10.9 Unspecified abdominal pain; G47.33 Obstructive sleep apnea (adult) (pediatric); Z87.891 Personal history of nicotine dependence; Z79.01 Long term (current) use of anticoagulants
CPT/HCPCS: 96365; 87040 ×2; 85025 ×2; 81001; 80048 ×3; 36415 ×2; 83735 ×2; 85610; 82947 ×11; 83605; 85730; 84484 ×5; 83880; 71250; 71045; 96375; 99285; 96366; J1815; C9113 ×2; J1650; J2270; J2405; J7050 ×2; J7040; J7030 ×2; 93005

== ENCOUNTER 2024-03-06 18:07 | Emergency (ER) | payer OTHER ==
--- OUTSIDE RECORDS SUMMARY | 2024-03-06 18:17 | XMS REPORT | Continuity of Care Document ---
Author Name Unknown Address [address] [facility] [address] [place] [address] [facility] thconnect Address [address] [facility] 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 Role Phone XOCHILT WOODWARD Primary Care Physician UnavailXochilt Leon Attending Clinician Unavailable Sofi Rush Attending Clinician Unavailable Halle Shabazz Attending Clinician Unavailable MAYUR ZURITA Attending Clinician Unavailable [email or web address] Attending Clinician Unavailable OPAL GARDNER Attending Clinician Unavailable Neema MARTINEZ, Prasad De Los Santos Attending Clinician [phone] PRASAD ALARCON Attending Clinician Brad soler Doctor Unassigned, [employer] Attending Clinician Viviana Villarreal MA Attending Clinician Unavaila ASHLEY Chiu Attending Clinician UnavailAshley Richardson MD Attending Clinician [phone] TAMI MICHELE Attending Clinician Unavailable Opal Gardner MD Attending Clinician [phone] Ashlie CROOKS, Anny L Attending Clinician Unav jay Bai, Bertrand Attending Clinician Unavailable 2, [facility] Attending Clinician Unavailable Inga Lazo MA Attending Clinician UnavailJESSICA Will Attending Clinician Unavailable Peng Glez MD Attending Clinician [phone] PENG GLEZ Attending Clinician Unavail able PENG GLEZ Attending Clinician Unavail able ASHLEY SINGLETON Attending Clinician Unavailrodrick knox [email or web address] Admitting Clinician Unavailable PRASAD ALARCON Admitting Clinician Brad Alarcon MD, Prasad De Los Santos Admitting Clinician [phone] OPAL GARDNER Admitting Clinician Unavailable Joselito Bai Admitting Clinician Unavailable Payers Payer Name Policy Type Policy Number Effective Date Expirati on Date Source [facility] ST[facility] [id number] 2015 00:00:00 [facility] C1 [id number] 2020 00:00:[address] [facility]STAR PL[facility] C1 [id number] 2017 00:00:[address] [facility] C1 [id number] 2020 00:00:[address] [facility] C1 [id number] [facility] [id number] 2017 00:00:[address] 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 t status Disease Active 05-01 00:00: 00 [facility] Knee pain, right Knee pain, right Disease Active 03-15 00:00: 00 [facility] Knee pain, right Knee pain, right Disease Active 03-15 00:00: 00 [facility] Abdominal distension Abdominal distension Disease Active 05-31 00:00: 00 [facility] Flank pain Flank pain Disease Active 05-31 00:00: 00 [facility] Asthma Asthma Disease Active 01-21 00:00: 00 Overview: Formattin g of this note might be different from the original. 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 H/O TIA (transient ischemic attack) and stroke Problem [facility] Nicotine dependence Cigarette nicotine dependence without complicati on Problem [facility] [id number] Acquired torticolli s Problem [facility] Asthma without status asthmaticu s Asthma, unspecifie d asthma severity, unspecifie d whether complicate d, unspecifie d whether persistent Problem [facility] [id number] Cervical radiculopa thy Problem [facility] [id number] Gastroesop hageal reflux disease without esophagiti s Problem [facility] [id number] Gingivitis Problem Comm on [facility] Osteoarthr osis, localized, secondary, involving lower leg Osteoarthr osis, localized, secondary, involving lower leg Problem [facility] [id number] Seasonal allergic rhinitis, unspecifie d trigger Problem [facility] Diabetes mellitus type 2 in nonobese Diabetes mellitus type 2 in nonobese Problem [facility] Lump Lump Problem [facility] [id number] Paroxysmal atrial fibrillati on Problem [facility] [id number] Body mass index (BMI) of 45.0-49.9 in adult Problem [facility] [id number] Abscess of vagina Problem [facility] Anemia Anemia Problem [facility] Edema Edema Problem [facility] Hypotensio n due to drugs Hypotensio n due to drugs Problem [facility] Hyperlipid emia Hyperlipid emia Problem Common [facility] [id number] Recurring cold staphyloco ccal abscesses Problem [facility] Gastroesop hageal reflux disease GERD (gastroeso phageal reflux disease) Problem [facility] [id number] Stress incontinen ce Problem [facility] Obstructiv e sleep apnea Obstructiv e sleep apnea Problem [facility] Type II diabetes mellitus without complicati on Controlled type 2 diabetes mellitus without complicati on, without long-term current use of insulin Problem [facility] Osteoarthr itis Osteoarthr itis Problem [facility] [id number] Decreased mobility Problem [facility] [id number] Hypertensi ve heart and chronic kidney disease without heart failure, with stage 1 through stage 4 chronic kidney disease, or unspecifie d chronic kidney disease Problem [facility] Long-term current use of anticoagul ant Anticoagul ated Problem [facility] [id number] Chronic kidney disease, stage 3a Problem [facility] Essential hypertensi on Elevated blood pressure reading with diagnosis of hypertensi on Problem [facility] [id number] Acute right-side d low back pain without sciatica Problem [facility] [id number] Dysuria Problem [facility] [id number] Thrombocyt openic Problem [facility] [id number] History of cholecyste ctomy Problem [facility] [id number] Atypical chest pain Problem [facility] Hypertensi on HTN (hypertens ion) Problem [facility] [id number] Facial pain Problem [facility] Morbid obesity Morbid obesity Problem [facility] [id number] Other chronic pain Problem [facility] [id number] Diverticul osis Problem [facility] Peripheral neuropathy Peripheral neuropathy Problem [facility] [id number] Proteus (mirabilis ) (morganii) as the cause of diseases classified elsewhere Problem [facility] [id number] Acute cystitis with hematuria Problem [facility] [id number] Pacemaker Problem Comm on [facility] Acute exacerbati on of chronic obstructiv e airways disease COPD with acute exacerbati on Problem [facility] Thrombocyt openia Thrombocyt openia Problem [facility] [id number] Chronic fatigue Problem [facility] [id number] Chronic pain syndrome Problem [facility] [id number] Smoking greater than 30 pack years Problem [facility] Allergies, Adverse Reactions, Alerts Allergy Name Allergy Type Status Severity Reaction(s) Onset Date Inactive Date Treating Clinician Comments Source No Known Allergie s DA Active U 08-06 00:00: 00 [facility] No Known Allergie s DA Active U 08-06 00:00: 00 [facility] NO KNOWN ALLERGIE S Drug Class Active [facility] Social History Social Habit Start Date Stop Date Quantity Comments Source Sex Assigned At [facility] History of tobacco use Cigarette Smoker [facility] Alcohol intake 2023-03-08 00:00:00 2023-03-08 00:00:00 0 /d [facility] Exposure to SARS-CoV-2 (event) 2023-02-19 00:00:00 2023-03-01 12:51:00 Not sure [facility] Tobacco Comment 2022-10-30 00:00:00 2022-10-30 00:00:00 1 pack in 2 days [facility] Cigarettes smoked current (pack per day) - Reported 2022-10-30 00:00:00 2022-10-30 00:00:00 [facility] Cigarette pack-years 2022-10-30 00:00:00 2022-10-30 00:00:00 [facility] Tobacco use and exposure 2022-10-30 00:00:00 2022-10-30 00:00:00 Smokeless tobacco non-user [facility] Smoking Status Start Date Stop Date Source Current Smoker 2024-01-21 00:00:00 [facility] Medications Ordered Medication Name Filled Medication Name [...] Sun03/08/23 at 0831, Routine, Intra-op [facility] neomycin-po lymyxin-dex amethasone (MAXITROL) 3.5 mg/g-10,000 unit/g-0.1 % ophthalmic ointment 03-08 13:21: 00 03-08 13:31 :55 No PRN, Starting on Sun03/08/23 at 0821, Until Ayala 03/08/23 at 0831, Routine, Intra-op [facility] gentamicin injection 03-08 13:21: 00 03-08 13:31 :55 No PRN, Starting on Ayala 03/08/23 at 0821, Until Ayala 03/08/23 at 0831, BHUPINDER, Intra-op [facility] dexamethaso ne (DECADRON PHOSPHATE) injection 03-08 13:21: 00 03-08 13:31 :55 No PRN, Starting on Ayala 03/08/23 at 0821, Until Ayala 03/08/23 at 0831, Routine, Intra-op [facility] ceFAZolin (ANCEF) injection 03-08 13:21: 00 03-08 13:31 :55 No PRN, Starting on Ayala 03/08/23 at 0821, Until Ayala 03/08/23 at 0831, BHUPINDER, Intra-op [facility] chondroitin sulf-sod hyaluronate (DUOVISC VISCO ELASTIC) intraocular injection 03-08 13:15: 00 03-08 13:31 :55 No PRN, Starting on Ayala 03/08/23 at 0815, Until Ayala 03/08/23 at 0831, Routine, Intra-op [facility] EPINEPHrine (PF) 1:1,000 (1 mg/mL) (ADRENALIN (PF)) injection 03-08 13:14: 00 03-08 13:31 :55 No PRN, Starting on Ayala 03/08/23 at 0814, Until Ayala 03/08/23 at 0831, Routine, Intra-op [facility] balanced salt soln no.2 irrig. (BSS) ophthalmic solution 03-08 13:14: 00 03-08 13:31 :55 No PRN, Starting on Ayala 03/08/23 at 0814, Until Ayala 03/08/23 at 0831, Routine, Intra-op [facility] water for irrigation irrigation solution 03-08 13:09: 00 03-08 13:31 :55 No PRN, Starting on Ayala 03/08/23 at 0809, Until Ayala 03/08/23 at 0831, Routine, Intra-op [facility] tetracaine (PONTOCAINE ) 0.5 % ophthalmic drops 03-08 13:06: 00 03-08 13:31 :55 No PRN, Starting on Ayala 03/08/23 at 0806, Until Ayala 03/08/23 at 0831, Routine, Intra-op Univers [facility] eye block syringe 11 mL 03-08 13:06: 00 03-08 13:31 :55 No PRN, Starting on Ayala 03/08/23 at 0806, Until Ayala 03/08/23 at 0831, Intra-op [facility] cyclopent 1%-tropic 1%-phenyl 2.5%-ketor 0.5% (MYDRIATIC #5) ophthalmic solution syringe 0.5 mL 03-08 12:30: 00 03-08 12:26 :00 No .5mL 0.5 mL, Right Eye, ONCE, 1 dose, On Ayala 03/08/23 at 0730, Routine, DSU Pre-op [facility] lactated ringers IV infusion 1,000 mL 03-08 12:30: 00 03-08 12:26 :00 No 1000mL at 42 mL/hr, 1,000 mL, IV Infusion, ONCE, 1 dose, On Ayala 03/08/23 at 0730, Routine, DSU Pre-op [facility] ferrous sulfate 325 mg (65 mg iron) tablet 03-08 09:15: 26 Yes 325mg Take 1 tablet by mouth in the morning. [facility] apixaban 2.5 mg tablet 03-08 09:15: 26 Yes 2.5mg Take 1 tablet by mouth in the morning. [facility] fluticasone furoate-giovanna anteroL 100-25 mcg/dose DsDv 03-08 09:15: 26 Yes Inhale. [facility] gabapentin 600 mg tablet 03-08 09:15: 26 Yes 600mg Take 1 tablet by mouth in the morning and 1 tablet at noon and 1 tablet in the evening. [facility] rosuvastati n 10 mg tablet 03-08 09:15: 26 Yes 10mg Take 1 tablet by mouth in the morning. [facility] mupirocin 2 % ointment 03-08 09:15: 26 Yes 1{dose} Apply 1 Dose to area(s) as needed. [facility] Nitrofurant oin&Nit. Macrocryst 100 mg capsule 03-08 09:15: 26 Yes 100mg Take 1 capsule by mouth in the morning and 1 capsule in the evening. [facility] albuterol-i pratropium (COMBIVENT INHALER) 18-103 mcg/actuati on inhaler 03-08 09:15: 25 Yes Inhale 4 (four) times daily. [facility] FLUTICASONE PROPIONATE (FLOVENT ROTADISK INHALE) 03-08 09:15: 25 Yes 2{puff} Inhale 2 Puffs as needed. [facility] propranolol (INDERAL) 40 mg tablet 03-08 09:15: 25 Yes 40mg Take 1 tablet by mouth in the morning. [facility] aspirin 81 mg chewable tablet 03-08 09:15: 25 Yes 81mg Take 1 tablet by mouth in the morning. [facility] simvastatin (ZOCOR) 20 mg tablet 03-08 09:15: 25 Yes 20mg Take 1 tablet by mouth at bedtime. [facility] CARVEDILOL ORAL 03-08 09:15: 25 Yes 25mg Take 25 mg by mouth 2 (two) times daily. [facility] ceFAZolin (ANCEF) injection 02-22 14:37: 00 02-22 14:44 :40 No PRN, Starting on Ayala 02/22/23 at 0937, Until Ayala 02/22/23 at 0944, BHUPINDER, Intra-op [facility] dexamethaso ne (DECADRON PHOSPHATE) injection 02-22 14:37: 00 02-22 14:44 :40 No PRN, Starting on Ayala 02/22/23 at 0937, Until Ayala 02/22/23 at 0944, Routine, Intra-op [facility] gentamicin injection 02-22 14:37: 00 02-22 14:44 :40 No PRN, Starting on Ayala 02/22/23 at 0937, Until Ayala 02/22/23 at 0944, BHUPINDER, Intra-op [facility] neomycin-po lymyxin-dex amethasone (MAXITROL) 3.5 mg/g-10,000 unit/g-0.1 % ophthalmic ointment 02-22 14:37: 00 02-22 14:44 :40 No PRN, Starting on Ayala 02/22/23 at 0937, Until Ayala 02/22/23 at 0944, Routine, Intra-op [facility] sodium chloride (NS) injection 02-22 14:37: 00 02-22 14:44 :40 No PRN, Starting on Ayala 02/22/23 at 0937, Until Ayala 02/22/23 at 0944, Routine, Intra-op [facility] chondroitin sulf-sod hyaluronate (DUOVISC VISCO ELASTIC) intraocular injection 02-22 14:32: 00 02-22 14:44 :40 No PRN, Starting on Ayala 02/22/23 at 0932, Until Ayala 02/22/23 at 0944, Routine, Intra-op [facility] EPINEPHrine (PF) 1:1,000 (1 mg/mL) (ADRENALIN (PF)) injection 02-22 14:31: 00 02-22 14:44 :40 No PRN, Starting on Ayala 02/22/23 at 0931, Until Ayala 02/22/23 at 0944, Routine, Intra-op [facility] balanced salt soln no.2 irrig. (BSS) ophthalmic solution 02-22 14:31: 00 02-22 14:44 :40 No PRN, Starting on Ayala 02/22/23 at 0931, Until Ayala 02/22/23 at 0944, Routine, Intra-op [facility] water for irrigation irrigation solution 02-22 14:25: 00 02-22 14:44 :40 No PRN, Starting on Ayala 02/22/23 at 0925, Until Ayala 02/22/23 at 0944, Routine, Intra-op [facility] tetracaine (PONTOCAINE ) 0.5 % ophthalmic drops 02-22 14:22: 00 02-22 14:44 :40 No PRN, Starting on Ayala 02/22/23 at 0922, Until Ayala 02/22/23 at 0944, Routine, Intra-op [facility] eye block syringe 11 mL 02-22 14:22: 00 02-22 14:44 :40 No PRN, Starting on Ayala 02/22/23 at 0922, Until Ayala 02/22/23 at 0944, Intra-op [facility] cyclopent 1%-tropic 1%-phenyl 2.5%-ketor 0.5% (MYDRIATIC #5) ophthalmic solution syringe 0.5 mL 02-22 13:15: 00 02-22 13:12 :00 No .5mL 0.5 mL, Left Eye, ONCE, 1 dose, On Ayala 02/22/23 at 0815, Routine, DSU Pre-op [facility] lactated ringers IV infusion 1,000 mL 02-22 13:15: 00 02-22 13:27 :00 No 1000mL at 42 mL/hr, 1,000 mL, IV Infusion, ONCE, 1 dose, On Ayala 02/22/23 at 0815, Routine, DSU Pre-op [facility] mupirocin 2 % ointment 02-22 10:32: 49 Yes 1{dose} Apply 1 Dose to area(s) as needed. [facility] Nitrofurant oin&Nit. Macrocryst 100 mg capsule 02-22 10:32: 49 Yes 100mg Take 1 capsule by mouth in the morning and 1 capsule in the evening. [facility] albuterol-i pratropium (COMBIVENT INHALER) 18-103 mcg/actuati on inhaler 02-22 10:32: 49 Yes Inhale 4 (four) times daily. [facility] FLUTICASONE PROPIONATE (FLOVENT ROTADISK INHALE) 02-22 10:32: 49 Yes 2{puff} Inhale 2 Puffs as needed. [facility] propranolol (INDERAL) 40 mg tablet 02-22 10:32: 49 Yes 40mg Take 1 tablet by mouth in the morning. [facility] aspirin 81 mg chewable tablet 02-22 10:32: 49 Yes 81mg Take 1 tablet by mouth in the morning. [facility] simvastatin (ZOCOR) 20 mg tablet 02-22 10:32: 49 Yes 20mg Take 1 tablet by mouth at bedtime. [facility] CARVEDILOL ORAL 02-22 10:32: 49 Yes 25mg Take 25 mg by mouth 2 (two) times daily. [facility] ferrous sulfate 325 mg (65 mg iron) tablet 02-22 10:32: 49 Yes 325mg Take 1 tablet by mouth in the morning. [facility] apixaban 2.5 mg tablet 02-22 10:32: 49 Yes 2.5mg Take 1 tablet by mouth in the morning. [facility] fluticasone furoate-giovanna anteroL 100-25 mcg/dose DsDv 02-22 10:32: 49 Yes Inhale. [facility] gabapentin 600 mg tablet 02-22 10:32: 49 Yes 600mg Take 1 tablet by mouth in the morning and 1 tablet at noon and 1 tablet in the evening. [facility] rosuvastati n 10 mg tablet 02-22 10:32: 49 Yes 10mg Take 1 tablet by mouth in the morning. [facility] GABAPENTIN, BULK, MISC 02-22 09:45: 41 02-22 00:00 :00 No 600mg Take 600 mg in the morning and 600 mg at noon and 600 mg in the evening. [facility] losartan 100 mg tablet -14 00:00: 00 Yes 100mg Take 1 tablet by mouth in the morning. [facility] SYMBICORT 160-4.5 mcg/actuati on inhaler 1-11 00:00: 00 Yes 1{puff} Inhale 1 Puff in the morning. [facility] metFORMIN HCl ER 500 MG metFORMIN HCl ER 500 MG 07-11 00:00: 00 No QD metFORMIN HCl ER 500 MG metFORMIN HCl ER 500 MG metFORMIN HCl ER 500 MG 07-11 00:00: 00 No QD metFORMIN HCl ER 500 MG metFORMIN HCl ER 500 MG metFORMIN HCl ER 500 MG 07-11 00:00: 00 No QD metFORMIN HCl ER 500 MG amLODIPine (NORVASC) 5 mg tablet 04-20 14:30: 51 04-20 00:00 :00 No 5mg Take 5 mg by mouth daily. [facility] amitriptyli ne (ELAVIL) 10 mg tablet 04-20 14:30: 42 04-20 00:00 :00 No 10mg Take 10 mg by mouth at bedtime. [facility] propranolol (INDERAL) 40 mg tablet 04-20 13:28: 01 Yes 40mg Take 40 mg by mouth daily. [facility] Mupirocin 2 % Mupirocin 2 % 04-10 00:00: 00 04-24 00:00 :00 No TID Mupirocin 2 % Mupirocin 2 % Mupirocin 2 % 04-10 00:00: 00 04-24 00:00 :00 No TID Mupirocin 2 % Bactrim DS 800-160 MG Bactrim DS 800-160 MG 2022-0 5-16 00:00: 00 04-20 00:00 :00 No 1{table t} BID Bactrim DS 800-160 MG Bactrim DS 800-160 MG Bactrim DS 800-160 MG 2022-0 5-16 00:00: 00 04-20 00:00 :00 No 1{table t} BID Bactrim DS 800-160 MG Lidocaine 5 % Lidocaine 5 % 2022-0 [...] % Lidocaine 5 % Lidocaine 5 % 3- 00:00: 00 No QD Lidocaine 5 % Lidocaine 5 % Lidocaine 5 % 3- 00:00: 00 No QD Lidocaine 5 % Lidocaine 5 % Lidocaine 5 % 3- 00:00: 00 No QD Lidocaine 5 % Lidocaine 5 % Lidocaine 5 % 3- 00:00: 00 No QD Lidocaine 5 % Lidocaine 5 % Lidocaine 5 % 3- 00:00: 00 No QD Lidocaine 5 % Chlorhexidi ne Gluconate 0.12 % Chlorhexidi ne Gluconate 0.12 % 2020-11 2 00:00: 00 12-01 00:00 :00 No BID Chlorhexid ine Gluconate 0.12 % Albuterol Sulfate (2.5 MG/3ML) 0.083% Albuterol Sulfate (2.5 MG/3ML) 0.083% 2020-11 00:00: 00 No 3{ml_as _needed } TID Albuterol Sulfate (2.5 MG/3ML) 0.083% Albuterol Sulfate (2.5 MG/3ML) 0.083% Albuterol Sulfate (2.5 MG/3ML) 0.083% 2020-11- 00:00: 00 No 3{ml_as _needed } TID Albuterol Sulfate (2.5 MG/3ML) 0.083% Albuterol Sulfate (2.5 MG/3ML) 0.083% Albuterol Sulfate (2.5 MG/3ML) 0.083% 2020-11- 00:00: 00 No 3{ml_as _needed } TID Albuterol Sulfate (2.5 MG/3ML) 0.083% Albuterol Sulfate (2.5 MG/3ML) 0.083% Albuterol Sulfate (2.5 MG/3ML) 0.083% 2020-11-16 00:00: 00 No 3{ml_as _needed } TID [...] TID Albuterol Sulfate (2.5 MG/3ML) 0.083% Ipratropium [place] 0.02 % Ipratropium [place] 0.02 % 2020-11 00:00: 00 05-09 00:00 :00 No 2.5{ml} TID Ipratropiu m [place] 0.02 % Ipratropium [place] 0.02 % Ipratropium [place] 0.02 % 2020-11 00:00: 00 05-09 00:00 :00 No 2.5{ml} TID Ipratropiu m [place] 0.02 % Ipratropium [place] 0.02 % Ipratropium [place] 0.02 % 2020-11 00:00: 00 05-09 00:00 :00 No 2.5{ml} TID Ipratropiu m [place] 0.02 % Ipratropium [place] 0.02 % Ipratropium [place] 0.02 % 2020-11 00:00: 00 05-09 00:00 :00 No 2.5{ml} TID Ipratropiu m [place] 0.02 % Potassium Chloride ER 20 MEQ Potassium Chloride ER 20 MEQ 2020-11 00:00: 00 11-30 00:00 :00 No 1{table t_with_ food} Potassium Chloride ER 20 MEQ albuterol-i pratropium (COMBIVENT INHALER) 18-103 mcg/actuati on inhaler 16 14:52: 21 Yes Inhale 4 (four) times daily. [facility] FLUTICASONE PROPIONATE (FLOVENT ROTADISK INHALE) 03-11 14:52: 21 Yes 2{puff} Inhale 2 Puffs as needed. [facility] Gabapentin, Bulk, 100 % Powd 03-11 14:52: 21 Yes 600mg 600 mg 3 (three) times daily. [facility] aspirin 81 mg chewable tablet 03-11 14:52: 21 Yes 81mg Take 81 mg by mouth daily. [facility] simvastatin (ZOCOR) 20 mg tablet 03-11 14:52: 21 Yes 20mg Take 20 mg by mouth at bedtime. [facility] CARVEDILOL ORAL 03-11 14:52: 21 Yes 25mg Take 25 mg by mouth 2 (two) times daily. [facility] ferrous sulfate 325 mg (65 mg iron) tablet 03-11 14:52: 21 Yes 325mg Take 325 mg by mouth daily. [facility] fluticasone -vilanterol (BREO ELLIPTA) 100-25 mcg/dose DsDv 03-11 14:52: 21 Yes Inhale. [facility] amoxicillin 500 mg capsule 03-09 00:00: 00 Yes [facility] spironolact one 50 mg tablet 02-28 00:00: 00 Yes 50mg Take 1 tablet by mouth in the morning. [facility] spironolact one 25 mg tablet 02-28 00:00: 00 Yes 25mg Take 25 mg by mouth 2 (two) times daily. [facility] Tizanidine HCl Tizanidine HCl 8-11 00:00: 00 08-05 00:00 :00 No Na Shabazz 1 capsule as needed [facility] diazePAM 5 mg tablet 7-03 00:00: 00 04-20 00:00 :00 No [id number] 5mg Take 1 tablet by mouth 2 (two) times daily. May take both befor the MRI [facility] Chlorhexidi ne Gluconate 0.12 % Chlorhexidi ne Gluconate 0.12 % 210 00:00: 00 No BID Chlorhexid ine Gluconate 0.12 % Chlorhexidi ne Gluconate 0.12 % Chlorhexidi ne Gluconate 0.12 % 210 00:00: 00 No BID Chlorhexid ine Gluconate 0.12 % cyclobenzap rine 10 mg tablet 8-15 00:00: 00 04-20 00:00 :00 No [id number] 10mg Take 1 tablet by mouth 3 (three) times daily. [facility] methylPREDN ISolone (MEDROL, TIMOTHY,) 4 mg tablets 06-04 00:00: 00 04-20 00:00 :00 No [id number] Take by mouth SEE-INSTRU CTIONS. follow package directions [facility] Estradiol 0.1 MG/GM Estradiol 0.1 MG/GM 12-17 00:00: 00 No Estradiol 0.1 MG/GM Estradiol 0.1 MG/GM Estradiol 0.1 MG/GM 12-17 00:00: 00 No Estradiol 0.1 MG/GM levoFLOXaci n 500 mg tablet 2016-11 00:00: 00 04-20 00:00 :00 No [facility] penicillin v potassium 500 mg tablet 2016-11 00:00: 00 04-20 00:00 :00 No [facility] lidocaine 5 % ointment 2016-11 0 00:00: 00 Yes [facility] phenazopyri dine (PYRIDIUM) 100 mg tablet 07-05 00:00: 00 Yes 200mg Take 2 tablets by mouth 3 (three) times daily as needed (bladder pain). [facility] ibuprofen (MOTRIN) 800 mg tablet 2015-11 00:00: 00 Yes [facility] clindamycin (CLEOCIN) 150 mg capsule 2015-11 00:00: 00 04-20 00:00 :00 No TAKE 2 CAPSULES BY MOUTH EVERY 8 HOURS ( 3 TIMES A DAY) TAKE WITH FOOD AND DRINK PLENTY OF WATER [facility] tiZANidine (ZANAFLEX) 4 mg tablet 04-04 00:00: 00 Yes 4mg Take 1 tablet by mouth in the morning and 1 tablet in the evening. [facility] VOLTAREN 1 % gel 03-08 00:00: 00 Yes 1{dose} Apply 1 Dose to area(s) every evening. [facility] potassium chloride (K-DUR) 10 mEq CR tablet 03-08 00:00: 00 Yes 10meq Take 10 mEq by mouth daily. [facility] losartan (COZAAR) 100 mg tablet 03-08 00:00: 00 04-20 00:00 :00 No 100mg Take 100 mg by mouth daily. [facility] hydrochloro thiazide (ESIDRIX) 25 mg tablet 05-30 00:00: 00 Yes 25mg Take 1 Tab by mouth 2 (two) times daily. [facility] docusate calcium (SURFAK) 240 mg capsule 05-30 00:00: 00 04-20 00:00 :00 No 240mg Take 1 Cap by mouth 2 (two) times daily. [facility] Potassium Chloride ER Potassium Chloride ER Yes Na Shabazz 1 capsule with food [facility] cloNIDine HCl 0.2 MG cloNIDine HCl 0.2 [...] No 1{table t} BID Furosemide 80 MG Combivent Respimat 20-100 MCG/ACT Combivent Respimat [...] 4 GM No Cholestyra mine 4 GM Neurontin 600 MG Neurontin 600 MG No [...] No 1{table t} BID Furosemide 80 MG Combivent Respimat 20-100 MCG/ACT Combivent Respimat [...] 4 GM No Cholestyra mine 4 GM Neurontin 600 MG Neurontin 600 MG No [...] No 1{table t} BID Furosemide 80 MG Cholestyram ine 4 GM Cholestyram ine [...] No 1{table t} BID Furosemide 80 MG Cholestyram ine 4 GM Cholestyram ine 4 GM No Cholestyra mine 4 GM Ferrous Sulfate 325 (65 Fe) MG Ferrous Sulfate 325 (65 Fe) MG No 1{table t} QD Ferrous Sulfate 325 (65 Fe) MG Albuterol Sulfate (5 MG/ML) 0.5% Albuterol [...] Eliquis 5 MG No Eliquis 5 MG cloNIDine HCl 0.2 MG cloNIDine HCl 0.2 MG No 1{table t} cloNIDine HCl 0.2 MG Combivent Respimat 20-100 MCG/ACT Combivent Respimat [...] 1{table t} QD Amiodarone HCl 200 MG Albuterol Sulfate (5 MG/ML) 0.5% Albuterol [...] Eliquis 5 MG No Eliquis 5 MG cloNIDine HCl 0.2 MG cloNIDine HCl 0.2 MG No 1{table t} cloNIDine HCl 0.2 MG Combivent Respimat 20-100 MCG/ACT Combivent Respimat [...] 1{table t} QD Amiodarone HCl 200 MG Albuterol Sulfate (5 MG/ML) 0.5% Albuterol [...] Eliquis 5 MG No Eliquis 5 MG cloNIDine HCl 0.2 MG cloNIDine HCl 0.2 MG No 1{table t} cloNIDine HCl 0.2 MG Combivent Respimat 20-100 MCG/ACT Combivent Respimat [...] 1{table t} QD Amiodarone HCl 200 MG Spironolact one 50 MG Spironolact one 50 MG No 1{table t} QD Spironolac tone 50 MG Albuterol Sulfate (5 MG/ML) 0.5% Albuterol Sulfate (5 MG/ML) 0.5% No 1{ml_as _needed } QID Albuterol Sulfate (5 MG/ML) 0.5% ProAir HFA 108 (90 Base) MCG/ACT ProAir [...] 4 GM No Cholestyra mine 4 GM Combivent Respimat 20-100 MCG/ACT Combivent Respimat 20-100 MCG/ACT No 1{puff} QID Combivent Respimat 20-100 MCG/ACT tiZANidine HCl 2 MG tiZANidine HCl 2 [...] 1{table t} QD Amiodarone HCl 200 MG Spironolact one 50 MG Spironolact one 50 MG No 1{table t} QD Spironolac tone 50 MG Albuterol Sulfate (5 MG/ML) 0.5% Albuterol Sulfate (5 MG/ML) 0.5% No 1{ml_as _needed } QID Albuterol Sulfate (5 MG/ML) 0.5% ProAir HFA 108 (90 Base) MCG/ACT ProAir [...] 4 GM No Cholestyra mine 4 GM Combivent Respimat 20-100 MCG/ACT Combivent Respimat 20-100 MCG/ACT No 1{puff} QID Combivent Respimat 20-100 MCG/ACT tiZANidine HCl 2 MG tiZANidine HCl 2 [...] 1{table t} QD Amiodarone HCl 200 MG Coreg 6.25 MG Coreg 6.25 MG [...] MG No metFORMIN HCl ER 500 MG Omeprazole 40 MG Omeprazole 40 MG [...] MG No metFORMIN HCl ER 500 MG Omeprazole 40 MG Omeprazole 40 MG [...] MG No metFORMIN HCl ER 500 MG Omeprazole 40 MG Omeprazole 40 MG [...] MG No metFORMIN HCl ER 500 MG Omeprazole 40 MG Omeprazole 40 MG [...] MG No metFORMIN HCl ER 500 MG Omeprazole 40 MG Omeprazole 40 MG [...] MG No metFORMIN HCl ER 500 MG Omeprazole 40 MG Omeprazole 40 MG [...] MG No metFORMIN HCl ER 500 MG Omeprazole 40 MG Omeprazole 40 MG [...] No 1{table t} BID Eliquis 5 MG Aspir-81 81 MG Aspir-81 81 MG No 1{table t} QD Aspir-81 81 MG ProAir HFA 108 (90 Base) MCG/ACT ProAir HFA 108 (90 Base) MCG/ACT No 2{puffs _as_nee ded} QID ProAir HFA 108 (90 Base) MCG/ACT Potassium Chloride Alexus ER 20 MEQ Potassium Chloride Alexus ER 20 MEQ No Potassium Chloride Alexus ER 20 MEQ Combivent Respimat 20-100 MCG/ACT Combivent Respimat 20-100 MCG/ACT No 1{puff} QID Combivent Respimat 20-100 MCG/ACT Omeprazole 40 MG Omeprazole 40 MG No Omeprazole 40 MG Flovent Diskus 100 MCG/BLIST Flovent [...] No 1{table t} BID Eliquis 5 MG Montelukast Sodium 10 MG Montelukast Sodium 10 MG No Montelukas t Sodium 10 MG Rosuvastati n Calcium 10 MG Rosuvastati n Calcium 10 MG No 1{table t} Rosuvastat in Calcium 10 MG Gabapentin 600 MG Gabapentin 600 MG No 1{table t} TID Gabapentin 600 MG metFORMIN HCl ER 500 MG metFORMIN HCl ER 500 MG No QD metFORMIN HCl ER 500 MG Coreg 12.5 MG Coreg 12.5 MG No 1{table t_with_ food} BID Coreg 12.5 MG Rosuvastati n Calcium 20 MG Rosuvastati n Calcium 20 MG No 1{table t} Rosuvastat in Calcium 20 MG HYDROcodone -Acetaminop hen 10-325 MG HYDROcodone -Acetaminop hen 10-325 MG No 1{table t_as_ne eded} QID HYDROcodon e-Acetamin ophen 10-325 MG Furosemide 80 MG Furosemide 80 MG No 1{table t} BID Furosemide 80 MG Amiodarone HCl 200 MG Amiodarone HCl 200 MG No Amiodarone HCl 200 MG Cholestyram ine 4 GM Cholestyram ine 4 GM No Cholestyra mine 4 GM ProAir HFA 108 (90 Base) MCG/ACT ProAir HFA 108 (90 Base) MCG/ACT No 2{puffs _as_nee ded} QID ProAir HFA 108 (90 Base) MCG/ACT Ipratropium -Albuterol 0.5-2.5 (3) MG/3ML Ipratropium -Albuterol 0.5-2.5 (3) MG/3ML No 3{ml_as _needed } QID Ipratropiu m-Albutero l 0.5-2.5 (3) MG/3ML Spironolact one 25 MG Spironolact one 25 MG No 1{table t} QD Spironolac tone 25 MG Flovent Diskus 100 MCG/BLIST Flovent Diskus 100 MCG/BLIST No 1{puff} BID Flovent Diskus 100 MCG/BLIST Potassium Chloride Alexus ER 20 MEQ Potassium Chloride Alexus ER 20 MEQ No Potassium Chloride Alexus ER 20 MEQ Ferrous Sulfate 325 (65 Fe) MG Ferrous Sulfate 325 (65 Fe) MG No 1{table t} QD Ferrous Sulfate 325 (65 Fe) MG metFORMIN HCl ER 500 MG metFORMIN HCl ER 500 MG No QD metFORMIN HCl ER 500 MG Coreg 6.25 MG Coreg 6.25 MG No BID Coreg 6.25 MG Omeprazole 40 MG Omeprazole 40 MG No Omeprazole 40 MG tiZANidine HCl 2 MG tiZANidine HCl 2 MG No 1{table t_at_be dtime_a s_neede d} QD tiZANidine HCl 2 MG Amiodarone HCl 200 MG Amiodarone HCl 200 MG No Amiodarone HCl 200 MG Eliquis 5 MG Eliquis 5 MG No 1{table t} BID Eliquis 5 MG Montelukast Sodium 10 MG Montelukast Sodium 10 MG No Montelukas t Sodium 10 MG Gabapentin 600 MG Gabapentin 600 MG No 1{table t} TID Gabapentin 600 MG Coreg 12.5 MG Coreg 12.5 MG No 1{table t_with_ food} BID Coreg 12.5 MG Spironolact one 25 MG Spironolact one 25 MG No 1{table t} QD Spironolac tone 25 MG Albuterol Sulfate (5 MG/ML) 0.5% Albuterol Sulfate (5 MG/ML) 0.5% No 1{ml_as _needed } QID Albuterol Sulfate (5 MG/ML) 0.5% HYDROcodone -Acetaminop hen 10-325 MG HYDROcodone -Acetaminop hen 10-325 MG No 1{table t_as_ne eded} QID HYDROcodon e-Acetamin ophen 10-325 MG Rosuvastati n Calcium 20 MG Rosuvastati n Calcium 20 MG No 1{table t} Rosuvastat in Calcium 20 MG Furosemide 80 MG Furosemide 80 MG No Furosemide 80 MG Cholestyram ine 4 GM Cholestyram ine 4 GM No Cholestyra mine 4 GM ProAir HFA 108 (90 Base) MCG/ACT ProAir HFA 108 (90 Base) MCG/ACT No 2{puffs _as_nee ded} QID ProAir HFA 108 (90 Base) MCG/ACT Ipratropium -Albuterol 0.5-2.5 (3) MG/3ML Ipratropium -Albuterol 0.5-2.5 (3) MG/3ML No 3{ml_as _needed } QID Ipratropiu m-Albutero l 0.5-2.5 (3) MG/3ML Combivent Respimat 20-100 MCG/ACT Combivent Respimat 20-100 MCG/ACT No 1{puff} QID Combivent Respimat 20-100 MCG/ACT Flovent Diskus 100 MCG/BLIST Flovent Diskus 100 MCG/BLIST No 1{puff} BID Flovent Diskus 100 MCG/BLIST Flovent Diskus 100 MCG/BLIST Flovent Diskus 100 MCG/BLIST No 1{puff} BID Flovent Diskus 100 MCG/BLIST Omeprazole 40 MG Omeprazole 40 MG No 1{capsu le} QD Omeprazole 40 MG Potassium Chloride Alexus ER 20 MEQ Potassium Chloride Alexus ER 20 MEQ No 1{table t_with_ food} QD Potassium Chloride Alexus ER 20 MEQ Ferrous Sulfate 325 (65 Fe) MG Ferrous Sulfate 325 (65 Fe) MG No 1{table t} QD Ferrous Sulfate 325 (65 Fe) MG metFORMIN HCl ER 500 MG metFORMIN HCl ER 500 MG No QD metFORMIN HCl ER 500 MG Omeprazole 40 MG Omeprazole 40 MG No Omeprazole 40 MG tiZANidine HCl 2 MG tiZANidine HCl 2 MG No 1{table t_at_be dtime_a s_neede d} QD tiZANidine HCl 2 MG Amiodarone HCl 200 MG Amiodarone HCl 200 MG No Amiodarone HCl 200 MG Eliquis 5 MG Eliquis 5 MG No 1{table t} BID Eliquis 5 MG Montelukast Sodium 10 MG Montelukast Sodium 10 MG No Montelukas t Sodium 10 MG Gabapentin 600 MG Gabapentin 600 MG No 1{table t} TID Gabapentin 600 MG Coreg 12.5 MG Coreg 12.5 MG No 1{table t_with_ food} BID Coreg 12.5 MG Spironolact one 25 MG Spironolact one 25 MG No 1{table t} QD Spironolac tone 25 MG HYDROcodone -Acetaminop hen 10-325 MG HYDROcodone -Acetaminop hen 10-325 MG No 1{table t_as_ne eded} QID HYDROcodon e-Acetamin ophen 10-325 MG Rosuvastati n Calcium 20 MG Rosuvastati n Calcium 20 MG No 1{table t} Rosuvastat in Calcium 20 MG Furosemide 80 MG Furosemide 80 MG No Furosemide 80 MG Cholestyram ine 4 GM Cholestyram ine 4 GM No Cholestyra mine 4 GM ProAir HFA 108 (90 Base) MCG/ACT ProAir HFA 108 (90 Base) MCG/ACT No 2{puffs _as_nee ded} QID ProAir HFA 108 (90 Base) MCG/ACT Ipratropium -Albuterol 0.5-2.5 (3) MG/3ML Ipratropium -Albuterol 0.5-2.5 (3) MG/3ML No 3{ml_as _needed } QID Ipratropiu m-Albutero l 0.5-2.5 (3) MG/3ML Combivent Respimat 20-100 MCG/ACT Combivent Respimat 20-100 MCG/ACT No 1{puff} QID Combivent Respimat 20-100 MCG/ACT Amiodarone HCl 200 MG Amiodarone HCl 200 MG No 1{table t} QD Amiodarone HCl 200 MG Coreg 12.5 MG Coreg 12.5 MG No 1{table t_with_ food} Coreg 12.5 MG Neurontin 600 MG Neurontin 600 MG [...] Furosemide 40 MG No Furosemide 40 MG Albuterol Sulfate (5 MG/ML) 0.5% [...] Furosemide 40 MG No Furosemide 40 MG Ferrous Sulfate 325 (65 Fe) MG Ferrous Sulfate 325 (65 Fe) MG No 1{table t} QD Ferrous Sulfate 325 (65 Fe) MG tiZANidine HCl 2 MG tiZANidine HCl 2 MG No 1{table t_at_be dtime_a s_neede d} QD tiZANidine HCl 2 MG Eliquis 5 MG Eliquis 5 MG No Eliquis 5 MG Potassium Chloride Alexus ER 20 MEQ Potassium Chloride Alexus ER 20 MEQ No Potassium Chloride Alexus ER 20 MEQ Losartan Potassium Losartan Potassium No Losartan Potassium Montelukast Sodium 10 MG Montelukast Sodium 10 [...] 1{table t} QD Amiodarone HCl 200 MG Omeprazole 40 MG Omeprazole 40 MG [...] No 1{table t} BID Furosemide 80 MG Combivent Respimat 20-100 MCG/ACT Combivent Respimat [...] - single dose syringe 2022-09-18 12:24:00 Completed [facility] Flucelvax - single dose syringe Flucelvax - single dose syringe 2022-09-18 12:24:00 Completed [facility] Flucelvax - single dose syringe Flucelvax - single dose syringe 2022-09-18 12:24:00 Completed [facility] Flucelvax - single dose syringe Flucelvax - single dose syringe 2022-09-18 12:24:00 Completed [facility] Flucelvax - single dose syringe Flucelvax - single dose syringe 2022-09-18 12:24:00 Completed [facility] Flucelvax - single dose syringe Flucelvax - single dose syringe 2022-09-18 12:24:00 Completed [facility] Flucelvax - single dose syringe Flucelvax - single dose syringe 2022-09-18 12:24:00 Completed [facility] Flucelvax - single dose syringe Flucelvax - single dose syringe 2022-09-18 12:24:00 Completed [facility] Flucelvax - single dose syringe Flucelvax - single dose syringe 2022-09-18 12:24:00 Completed [facility] Flucelvax - single dose syringe Flucelvax - single dose syringe 2022-09-18 12:24:00 Completed [facility] Flucelvax - single dose syringe Flucelvax - single dose syringe 2022-09-18 12:24:00 Completed [facility] Td Td 2022-04-10 11:44:00 Completed [facility] Td Td 2022-04-10 11:44:00 Completed [facility] Td Td 2022-04-10 11:44:00 Completed [facility] Td Td 2022-04-10 11:44:00 Completed [facility] Td Td 2022-04-10 11:44:00 Completed [facility] Td Td 2022-04-10 11:44:00 Completed [facility] Td Td 2022-04-10 11:44:00 Completed [facility] Td Td 2022-04-10 11:44:00 Completed [facility] Td Td 2022-04-10 11:44:00 Completed [facility] Td Td 2022-04-10 11:44:00 Completed [facility] Td Td 2022-04-10 11:44:00 Completed [facility] Td Td 2022-04-10 11:44:00 Completed [facility] Td Td 2022-04-10 11:44:00 Completed [facility] Td Td 2022-04-10 11:44:00 Completed [facility] Td Td 2022-04-10 11:44:00 Completed [facility] Td Td 2022-04-10 11:44:00 Completed [facility] Td Td 2022-04-10 11:44:00 Completed [facility] Td Td 2022-04-10 11:44:00 Completed [facility] Moderna COVID-19 Vaccine (Low Dose Booster) Moderna COVID-19 Vaccine (Low Dose Booster) 2021-10-07 15:33:00 Completed [facility] Moderna COVID-19 Vaccine (Low Dose Booster) Moderna COVID-19 Vaccine (Low Dose Booster) 2021-10-07 15:33:00 Completed [facility] Moderna COVID-19 Vaccine (Low Dose Booster) Moderna COVID-19 Vaccine (Low Dose Booster) 2021-10-07 15:33:00 Completed [facility] Moderna COVID-19 Vaccine (Low Dose Booster) Moderna COVID-19 Vaccine (Low Dose Booster) 2021-10-07 15:33:00 Completed [facility] Moderna COVID-19 Vaccine (Low Dose Booster) Moderna COVID-19 Vaccine (Low Dose Booster) 2021-10-07 15:33:00 Completed [facility] Moderna COVID-19 Vaccine (Low Dose Booster) Moderna COVID-19 Vaccine (Low Dose Booster) 2021-10-07 15:33:00 Completed [facility] Moderna COVID-19 Vaccine (Low Dose Booster) Moderna COVID-19 Vaccine (Low Dose Booster) 2021-10-07 15:33:00 Completed [facility] Moderna COVID-19 Vaccine (Low Dose Booster) Moderna COVID-19 Vaccine (Low Dose Booster) 2021-10-07 15:33:00 Completed [facility] Moderna COVID-19 Vaccine (Low Dose Booster) Moderna COVID-19 Vaccine (Low Dose Booster) 2021-10-07 15:33:00 Completed [facility] Moderna COVID-19 Vaccine (Low Dose Booster) Moderna COVID-19 Vaccine (Low Dose Booster) 2021-10-07 15:33:00 Completed [facility] Moderna COVID-19 Vaccine (Low Dose Booster) Moderna COVID-19 Vaccine (Low Dose Booster) 2021-10-07 15:33:00 Completed [facility] Moderna COVID-19 Vaccine (Low Dose Booster) Moderna COVID-19 Vaccine (Low Dose Booster) 2021-10-07 15:33:00 Completed [facility] Moderna COVID-19 Vaccine (Low Dose Booster) Moderna COVID-19 Vaccine (Low Dose Booster) 2021-10-07 15:33:00 Completed [facility] Moderna COVID-19 Vaccine (Low Dose Booster) Moderna COVID-19 Vaccine (Low Dose Booster) 2021-10-07 15:33:00 Completed [facility] Moderna COVID-19 Vaccine (Low Dose Booster) Moderna COVID-19 Vaccine (Low Dose Booster) 2021-10-07 15:33:00 Completed [facility] Moderna COVID-19 Vaccine (Low Dose Booster) Moderna COVID-19 Vaccine (Low Dose Booster) 2021-10-07 15:33:00 Completed [facility] Moderna COVID-19 Vaccine (Low Dose Booster) Moderna COVID-19 Vaccine (Low Dose Booster) 2021-10-07 15:33:00 Completed [facility] Moderna COVID-19 Vaccine (Low Dose Booster) Moderna COVID-19 Vaccine (Low Dose Booster) 2021-10-07 15:33:00 Completed [facility] Moderna COVID-19 Vaccine (Low Dose Booster) Moderna COVID-19 Vaccine (Low Dose Booster) 2021-10-07 15:33:00 Completed [facility] Moderna COVID-19 Vaccine (Low Dose Booster) Moderna COVID-19 Vaccine (Low Dose Booster) 2021-10-07 15:33:00 Completed [facility] Moderna COVID-19 Vaccine (Low Dose Booster) Moderna COVID-19 Vaccine (Low Dose Booster) 2021-10-07 15:33:00 Completed [facility] Moderna COVID-19 Vaccine (Low Dose Booster) Moderna COVID-19 Vaccine (Low Dose Booster) 2021-10-07 15:33:00 Completed [facility] Moderna COVID-19 Vaccine (Low Dose Booster) Moderna COVID-19 Vaccine (Low Dose Booster) 2021-10-07 15:33:00 Completed [facility] Moderna COVID-19 Vaccine (Low Dose Booster) Moderna COVID-19 Vaccine (Low Dose Booster) 2021-10-07 15:33:00 Completed [facility] Moderna COVID-19 Vaccine (Low Dose Booster) Moderna COVID-19 Vaccine (Low Dose Booster) 2021-10-07 15:33:00 Completed [facility] Moderna COVID-19 Vaccine (Low Dose Booster) Moderna COVID-19 Vaccine (Low Dose Booster) 2021-10-07 15:33:00 Completed [facility] Moderna COVID-19 Vaccine (Low Dose Booster) Moderna COVID-19 Vaccine (Low Dose Booster) 2021-10-07 15:33:00 Completed [facility] Moderna COVID-19 Vaccine (Low Dose Booster) Moderna COVID-19 Vaccine (Low Dose Booster) 2021-10-07 15:33:00 Completed [facility] Moderna COVID-19 Vaccine (Low Dose Booster) Moderna COVID-19 Vaccine (Low Dose Booster) 2021-10-07 15:33:00 Completed [facility] Moderna COVID-19 Vaccine (Low Dose Booster) Moderna COVID-19 Vaccine (Low Dose Booster) 2021-10-07 15:33:00 [facility] Dose Booster[facility] Moderna COVID-19 Vaccine (Low Dose Booster) 2021-10-07 15:33:00 Completed [facility] Afluria Afluria 2021-10-07 13:58:00 Completed [facility] Afluria Afluria 2021-10-07 13:58:00 Completed [facility] Afluria Afluria 2021-10-07 13:58:00 Completed [facility] Afluria Afluria 2021-10-07 13:58:00 [facility] Afluria Afluria 2021-10-07 13:58:00 Completed [facility] Afluria Afluria 2021-10-07 13:58:00 Completed [facility] Afluria Afluria 2021-10-07 13:58:00 Completed [facility] Afluria Afluria 2021-10-07 13:58:00 [facility] Afluria Afluria 2021-10-07 13:58:00 [facility]pleted [facility] Afluria Afluria 2021-10-07 13:58:00 [facility]pleted [facility] Afluria Afluria 2021-10-07 13:58:00 [facility]pleted [facility] Afluria Afluria 2021-10-07 13:58:00 [facility]pleted [facility] Afluria Afluria 2021-10-07 13:58:00 Completed [facility] Afluria Afluria 2021-10-07 13:58:00 Completed [facility] Afluria Afluria 2021-10-07 13:58:00 Completed [facility] Afluria Afluria 2021-10-07 13:58:00 Completed [facility] Afluria Afluria 2021-10-07 13:58:00 Completed [facility] Afluria Afluria 2021-10-07 13:58:00 Completed [facility] Afluria Afluria 2021-10-07 13:58:00 Completed [facility] Afluria Afluria 2021-10-07 13:58:00 Completed [facility] Afluria Afluria 2021-10-07 13:58:00 Completed [facility] Afluria Afluria 2021-10-07 13:58:00 Completed [facility] Afluria Afluria 2021-10-07 13:58:00 Completed [facility] Afluria Afluria 2021-10-07 13:58:00 Completed [facility] Afluria Afluria 2021-10-07 13:58:00 Completed [facility] Afluria Afluria 2021-10-07 13:58:00 Completed [facility] Afluria Afluria 2021-10-07 13:58:00 Completed [facility] Afluria Afluria 2021-10-07 13:58:00 Completed [facility] Afluria Afluria 2021-10-07 13:58:00 Completed [facility] Afluria Afluria 2021-10-07 13:58:00 Completed [facility] Afluria Afluria 2021-10-07 13:58:00 Completed [facility] SARS-COV-2 COVID-19 MODERNA 12+ YRS VACCINE 2021-01-30 00:00:00 Completed [facility] SARS-COV-2 COVID-19 MODERNA 12+ YRS VACCINE 2021-01-30 00:00:00 Completed [facility] SARS-COV-2 COVID-19 MODERNA 12+ YRS VACCINE 2021-01-30 00:00:00 Completed [facility] SARS-COV-2 COVID-19 MODERNA 12+ YRS VACCINE 2021-01-30 00:00:00 Completed [facility] SARS-COV-2 COVID-19 MODERNA 12+ YRS VACCINE 2021-01-30 00:00:00 Completed [facility] SARS-COV-2 COVID-19 MODERNA VACCINE 2021-01-30 00:00:00 Completed [facility] SARS-COV-2 COVID-19 MODERNA VACCINE 2021-01-30 00:00:00 Completed [facility] SARS-COV-2 COVID-19 MODERNA VACCINE 2021-01-30 00:00:00 Completed [facility] SARS-COV-2 COVID-19 MODERNA 12+ YRS VACCINE 2021-01-30 00:00:00 Completed [facility] SARS-COV-2 COVID-19 MODERNA 12+ YRS VACCINE 2021-01-30 00:00:00 Completed [facility] SARS-COV-2 COVID-19 MODERNA 12+ YRS VACCINE 2021-01-30 00:00:00 Completed [facility] SARS-COV-2 COVID-19 MODERNA 12+ YRS VACCINE 2021-01-30 00:00:00 Completed [facility] SARS-COV-2 COVID-19 MODERNA 12+ YRS VACCINE 2021-01-02 00:00:00 Completed [facility] SARS-COV-2 COVID-19 MODERNA 12+ YRS VACCINE 2021-01-02 00:00:00 Completed [facility] SARS-COV-2 COVID-19 MODERNA 12+ YRS VACCINE 2021-01-02 00:00:00 Completed [facility] SARS-COV-2 COVID-19 MODERNA 12+ YRS VACCINE 2021-01-02 00:00:00 Completed [facility] SARS-COV-2 COVID-19 MODERNA 12+ YRS VACCINE 2021-01-02 00:00:00 Completed [facility] SARS-COV-2 COVID-19 MODERNA VACCINE 2021-01-02 00:00:00 Completed [facility] SARS-COV-2 COVID-19 MODERNA VACCINE 2021-01-02 00:00:00 Completed [facility] SARS-COV-2 COVID-19 MODERNA VACCINE 2021-01-02 00:00:00 Completed [facility] SARS-COV-2 COVID-19 MODERNA 12+ YRS VACCINE 2021-01-02 00:00:00 Completed [facility] SARS-COV-2 COVID-19 MODERNA 12+ YRS VACCINE 2021-01-02 00:00:00 Completed [facility] SARS-COV-2 COVID-19 MODERNA 12+ YRS VACCINE 2021-01-02 00:00:00 Completed [facility] SARS-COV-2 COVID-19 MODERNA 12+ YRS VACCINE 2021-01-02 00:00:00 Completed [facility] Afluria single dose Afluria single dose 2020-09-06 12:04:00 Completed [facility] Afluria single dose Afluria single dose 2020-09-06 12:04:00 Completed [facility] Afluria single dose Afluria single dose 2020-09-06 12:04:00 Completed [facility] Afluria single dose Afluria single dose 2020-09-06 12:04:00 Completed [facility] Afluria single dose Afluria single dose 2020-09-06 12:04:00 Completed [facility] Afluria single dose Afluria single dose 2020-09-06 12:04:00 Completed [facility] Afluria single dose Afluria single dose 2020-09-06 12:04:00 Completed [facility] Afluria single dose Afluria single dose 2020-09-06 12:04:00 Completed [facility] Afluria single dose Afluria single dose 2020-09-06 12:04:00 Completed [facility] Afluria single dose Afluria single dose 2020-09-06 12:04:00 Completed [facility] Afluria single dose Afluria single dose 2020-09-06 12:04:00 Completed [facility] Afluria single dose Afluria single dose 2020-09-06 12:04:00 Completed [facility] Afluria single dose Afluria single dose 2020-09-06 12:04:00 Completed [facility] Afluria single dose Afluria single dose 2020-09-06 12:04:00 Completed [facility] Afluria single dose Afluria single dose 2020-09-06 12:04:00 Completed [facility] Afluria single dose Afluria single dose 2020-09-06 12:04:00 Completed [facility] Afluria single dose Afluria single dose 2020-09-06 12:04:00 Completed [facility] Afluria single dose Afluria single dose 2020-09-06 12:04:00 Completed [facility] Afluria single dose Afluria single dose 2020-09-06 12:04:00 Completed [facility] Afluria single dose Afluria single dose 2020-09-06 12:04:00 Completed [facility] Afluria single dose Afluria single dose 2020-09-06 12:04:00 Completed [facility] Afluria single dose Afluria single dose 2020-09-06 12:04:00 Completed [facility] Afluria single dose Afluria single dose 2020-09-06 12:04:00 Completed [facility] Afluria single dose Afluria single dose 2020-09-06 12:04:00 Completed [facility] Afluria single dose Afluria single dose 2020-09-06 12:04:00 Completed [facility] Afluria single dose Afluria single dose 2020-09-06 12:04:00 Completed [facility] Afluria single dose Afluria single dose 2020-09-06 12:04:00 Completed [facility] Afluria single dose Afluria single dose 2020-09-06 12:04:00 Completed [facility] Afluria single dose Afluria single dose 2020-09-06 12:04:00 Completed [facility] Afluria single dose Afluria single dose 2020-09-06 12:04:00 Completed [facility] Afluria single dose Afluria single dose 2020-09-06 12:04:00 Completed [facility] Afluria single dose Afluria single dose 2020-09-06 12:04:00 Completed [facility] Afluria single dose Afluria single dose 2020-09-06 12:04:00 Completed [facility] Afluria single dose Afluria single dose 2020-09-06 12:04:00 Completed [facility] Afluria single dose Afluria single dose 2019-08-21 15:26:00 Completed [facility] Afluria single dose Afluria single dose 2019-08-21 15:26:00 Completed [facility] Afluria single dose Afluria single dose 2019-08-21 15:26:00 Completed [facility] Afluria single dose Afluria single dose 2019-08-21 15:26:00 Completed [facility] Afluria single dose Afluria single dose 2019-08-21 15:26:00 Completed [facility] Afluria single dose Afluria single dose 2019-08-21 15:26:00 Completed [facility] Afluria single dose Afluria single dose 2019-08-21 15:26:00 Completed [facility] Afluria single dose Afluria single dose 2019-08-21 15:26:00 Completed [facility] Afluria single dose Afluria single dose 2019-08-21 15:26:00 Completed [facility] Afluria single dose Afluria single dose 2019-08-21 15:26:00 Completed [facility] Afluria single dose Afluria single dose 2019-08-21 15:26:00 Completed [facility] Afluria single dose Afluria single dose 2019-08-21 15:26:00 Completed [facility] Afluria single dose Afluria single dose 2019-08-21 15:26:00 Completed [facility] Afluria single dose Afluria single dose 2019-08-21 15:26:00 Completed [facility] Afluria single dose Afluria single dose 2019-08-21 15:26:00 Completed [facility] Afluria single dose Afluria single dose 2019-08-21 15:26:00 Completed [facility] Afluria single dose Afluria single dose 2019-08-21 15:26:00 Completed [facility] Afluria single dose Afluria single dose 2019-08-21 15:26:00 Completed [facility] Afluria single dose Afluria single dose 2019-08-21 15:26:00 Completed [facility] Afluria single dose Afluria single dose 2019-08-21 15:26:00 Completed [facility] Afluria single dose Afluria single dose 2019-08-21 15:26:00 Completed [facility] Afluria single dose Afluria single dose 2019-08-21 15:26:00 Completed [facility] Afluria single dose Afluria single dose 2019-08-21 15:26:00 Completed [facility] Afluria single dose Afluria single dose 2019-08-21 15:26:00 Completed [facility] Afluria single dose Afluria single dose 2019-08-21 15:26:00 Completed [facility] Afluria single dose Afluria single dose 2019-08-21 15:26:00 Completed [facility] Afluria single dose Afluria single dose 2019-08-21 15:26:00 Completed [facility] Afluria single dose Afluria single dose 2019-08-21 15:26:00 Completed [facility] Afluria single dose Afluria single dose 2019-08-21 15:26:00 Completed [facility] Afluria single dose Afluria single dose 2019-08-21 15:26:00 Completed [facility] Afluria single dose Afluria single dose 2019-08-21 15:26:00 Completed [facility] Afluria single dose Afluria single dose 2019-08-21 15:26:00 Completed [facility] Afluria single dose Afluria single dose 2019-08-21 15:26:00 Completed [facility] Afluria single dose Afluria single dose 2019-08-21 15:26:00 Completed [facility] Afluria single dose Afluria single dose 2019-08-21 00:00:00 Completed [facility] Afluria Afluria 2018-09-20 10:06:00 Completed [facility] Afluria Afluria 2018-09-20 10:06:00 Completed [facility] Afluria Afluria 2018-09-20 10:06:00 Completed [facility] Afluria Afluria 2018-09-20 10:06:00 Completed [facility] Afluria Afluria 2018-09-20 10:06:00 Completed [facility] Afluria Afluria 2018-09-20 10:06:00 Completed [facility] Afluria Afluria 2018-09-20 10:06:00 Completed [facility] Afluria Afluria 2018-09-20 10:06:00 Completed [facility] Afluria Afluria 2018-09-20 10:06:00 Completed [facility] Afluria Afluria 2018-09-20 10:06:00 Completed [facility] Afluria Afluria 2018-09-20 10:06:00 Completed [facility] Afluria Afluria 2018-09-20 10:06:00 Completed [facility] Afluria Afluria 2018-09-20 10:06:00 Completed [facility] Afluria Afluria 2018-09-20 10:06:00 Completed [facility] Afluria Afluria 2018-09-20 10:06:00 Completed [facility] Afluria Afluria 2018-09-20 10:06:00 Completed [facility] Afluria Afluria 2018-09-20 10:06:00 Completed [facility] Afluria Afluria 2018-09-20 10:06:00 Completed [facility] Afluria Afluria 2018-09-20 10:06:00 Completed [facility] Afluria Afluria 2018-09-20 10:06:00 Completed [facility] Afluria Afluria 2018-09-20 10:06:00 Completed [facility] Afluria Afluria 2018-09-20 10:06:00 Completed [facility] Afluria Afluria 2018-09-20 10:06:00 Completed [facility] Afluria Afluria 2018-09-20 10:06:00 Completed [facility] Afluria Afluria 2018-09-20 10:06:00 Completed [facility] Afluria Afluria 2018-09-20 10:06:00 Completed [facility] Afluria Afluria 2018-09-20 10:06:00 Completed [facility] Afluria Afluria 2018-09-20 10:06:00 Completed [facility] Afluria Afluria 2018-09-20 10:06:00 Completed [facility] Afluria Afluria 2018-09-20 10:06:00 Completed [facility] Afluria Afluria 2018-09-20 10:06:00 Completed [facility] Afluria Afluria 2018-09-20 10:06:00 Completed [facility] Afluria Afluria 2018-09-20 10:06:00 Completed [facility] Afluria Afluria 2018-09-20 10:06:00 Completed [facility] Pneumococcal Polysaccharide, PPSV23 (PNEUMOVAX) 2013-06-06 00:00:00 Completed [facility] Pneumococcal Polysaccharide, PPSV23 (PNEUMOVAX) 2013-06-06 00:00:00 Completed [facility] Pneumococcal Polysaccharide, PPSV23 (PNEUMOVAX) 2013-06-06 00:00:00 Completed [facility] Pneumococcal Polysaccharide, PPSV23 (PNEUMOVAX) 2013-06-06 00:00:00 Completed [facility] Pneumococcal Polysaccharide, PPSV23 (PNEUMOVAX) 2013-06-06 00:00:00 Completed [facility] Pneumococcal Polysaccharide, PPSV23 (PNEUMOVAX) 2013-06-06 00:00:00 Completed [facility] Pneumococcal Polysaccharide, PPSV23 (PNEUMOVAX) 2013-06-06 00:00:00 Completed [facility] Pneumococcal Polysaccharide, PPSV23 (PNEUMOVAX) 2013-06-06 00:00:00 Completed [facility] Pneumococcal Polysaccharide, PPSV23 (PNEUMOVAX) 2013-06-06 00:00:00 Completed [facility] Pneumococcal Polysaccharide, PPSV23 (PNEUMOVAX) 2013-06-06 00:00:00 Completed [facility] Pneumococcal Polysaccharide, PPSV23 (PNEUMOVAX) 2013-06-06 00:00:00 Completed [facility] Pneumococcal Polysaccharide, PPSV23 (PNEUMOVAX) 2013-06-06 00:00:00 Completed [facility] Moderna COVID-19 Vaccine (Low Dose Booster) Moderna COVID-19 Vaccine (Low Dose Booster) Unknown Completed [facility] Afluria single dose Afluria single dose Unknown Completed [facility] Afluria single dose Afluria single dose Unknown Completed [facility] Afluria Afluria Unknown Completed [facility] Afluria Afluria Unknown Completed [facility] Flucelvax - single dose syringe Flucelvax - single dose syringe Unknown Completed [facility] Td Td Unknown Completed [facility] Moderna COVID-19 Vaccine (Low Dose Booster) Moderna COVID-19 Vaccine (Low Dose Booster) Unknown Completed [facility] Afluria single dose Afluria single dose Unknown Completed [facility] Afluria single dose Afluria single dose Unknown Completed [facility] Afluria Afluria Unknown Completed [facility] Afluria Afluria Unknown Completed [facility] Flucelvax - single dose syringe Flucelvax - single dose syringe Unknown Completed [facility] Td Td Unknown [facility]ose [facility] Moderna COVID-19 Vaccine (Low Dose Booster) Unknown Completed [facility] Afluria single dose Afluria single dose Unknown Completed [facility] Afluria single dose Afluria single dose Unknown Completed [facility] Afluria Afluria Unknown Completed [facility] Afluria Afluria Unknown Completed [facility] Flucelvax - single dose syringe Flucelvax - single dose syringe Unknown Completed [facility] Td Td Unknown Com[facility] Vacc[facility] (Low Dose Booster) Moderna COVID-19 Vaccine (Low Dose Booster) Unknown Completed [facility] Afluria single dose Afluria single dose Unknown Completed [facility] Afluria single dose Afluria single dose Unknown Completed [facility] Afluria Afluria Unknown Completed [facility] Afluria Afluria Unknown Completed [facility] Flucelvax - single dose syringe Flucelvax - single dose syringe Unknown Completed [facility] Td Td Unknown Com[facility] Vacc[facility] (Low Dose Booster) Moderna COVID-19 Vaccine (Low Dose Booster) Unknown Completed [facility] Afluria single dose Afluria single dose Unknown Completed [facility] Afluria single dose Afluria single dose Unknown Completed [facility] Afluria Afluria Unknown Completed [facility] Afluria Afluria Unknown Completed [facility] Flucelvax - single dose syringe Flucelvax - single dose syringe Unknown Completed [facility] Td Td Unknown Completed [facility] Moderna COVID-19 Vaccine (Low Dose Booster) Moderna COVID-19 Vaccine (Low Dose Booster) Unknown Completed [facility] Afluria single dose Afluria single dose Unknown Completed [facility] Afluria single dose Afluria single dose Unknown Completed [facility] Afluria Afluria Unknown Completed [facility] Afluria Afluria Unknown Completed [facility] Flucelvax - single dose syringe Flucelvax - single dose syringe Unknown Completed [facility] Td Td Unknown Completed [facility] Moderna COVID-19 Vaccine (Low Dose Booster) Moderna COVID-19 Vaccine (Low Dose Booster) Unknown Completed [facility] Afluria single dose Afluria single dose Unknown Completed [facility] Afluria single dose Afluria single dose Unknown Completed [facility] Afluria Afluria Unknown Completed [facility] Afluria Afluria Unknown Completed [facility] Flucelvax - single dose syringe Flucelvax - single dose syringe Unknown Completed [facility] Td Td Unknown [facility] (Low Dose Booster) Moderna COVID-19 Vaccine (Low Dose Booster) Unknown Completed [facility] Afluria single dose Afluria single dose Unknown Completed [facility] Afluria single dose Afluria single dose Unknown Completed [facility] Fluarix Fluarix Unknown Completed [facility] Afluria Afluria Unknown Completed [facility] Afluria Afluria Unknown Completed [facility] Flucelvax - single dose syringe Flucelvax - single dose syringe Unknown Completed [facility] Td Td Unknown [facility] Vacc[facility] (Low Dose Booster) Moderna COVID-19 Vaccine (Low Dose Booster) Unknown Completed [facility] Afluria single dose Afluria single dose Unknown Completed [facility] Afluria single dose Afluria single dose Unknown Completed [facility] Fluarix Fluarix Unknown Completed [facility] Afluria Afluria Unknown Completed [facility] Afluria Afluria Unknown Completed [facility] Flucelvax - single dose syringe Flucelvax - single dose syringe Unknown Completed [facility] Td Td Unknown Completed [facility] Moderna COVID-19 Vaccine (Low Dose Booster) Moderna COVID-19 Vaccine (Low Dose Booster) Unknown Completed [facility] Afluria single dose Afluria single dose Unknown Completed [facility] Afluria single dose Afluria single dose Unknown Completed [facility] Fluarix Fluarix Unknown Completed [facility] Afluria Afluria Unknown Completed [facility] Afluria Afluria Unknown Completed [facility] Flucelvax - single dose syringe Flucelvax - single dose syringe Unknown Completed [facility] Td Td Unknown Completed [facility] Moderna COVID-19 Vaccine (Low Dose Booster) Moderna COVID-19 Vaccine (Low Dose Booster) Unknown Completed [facility] Afluria single dose Afluria single dose Unknown Completed [facility] Afluria single dose Afluria single dose Unknown Completed [facility] Fluarix Fluarix Unknown Completed [facility] Afluria Afluria Unknown Completed [facility] Afluria Afluria Unknown Completed [facility] Flucelvax - single dose syringe Flucelvax - single dose syringe Unknown Completed [facility] Td Td Unknown [facility] (Low Dose Booster) Moderna COVID-19 Vaccine (Low Dose Booster) Unknown Completed [facility] Afluria (IIV4) - 3 years and older - SDS - 0.5mL Afluria (IIV4) - 3 years and older - SDS - 0.5mL Unknown Completed [facility] Afluria (IIV4) - 3 years and older - SDS - 0.5mL Afluria (IIV4) - 3 years and older - SDS - 0.5mL Unknown Completed [facility] Fluarix (IIV4) - SDS - 0.5mL Fluarix (IIV4) - SDS - 0.5mL Unknown Completed [facility] Afluria Afluria Unknown Completed [facility] Afluria Afluria Unknown Completed [facility] Flucelvax (ccIIV4) - SDS - 0.5mL Flucelvax (ccIIV4) - SDS - 0.5mL Unknown Completed [facility] Td Td Unknown Completed [facility] Moderna COVID-19 Vaccine (Low Dose Booster) Moderna COVID-19 Vaccine (Low Dose Booster) Unknown Completed [facility] Afluria (IIV4) - 3 years and older - SDS - 0.5mL Afluria (IIV4) - 3 years and older - SDS - 0.5mL Unknown Completed [facility] Afluria (IIV4) - 3 years and older - SDS - 0.5mL Afluria (IIV4) - 3 years and older - SDS - 0.5mL Unknown Completed [facility] Fluarix (IIV4) - SDS - 0.5mL Fluarix (IIV4) - SDS - 0.5mL Unknown Completed [facility] Afluria Afluria Unknown Completed [facility] Afluria Afluria Unknown Completed [facility] Flucelvax (ccIIV4) - SDS - 0.5mL Flucelvax (ccIIV4) - SDS - 0.5mL Unknown Completed [facility] Td Td Unknown Completed [facility] Moderna COVID-19 Vaccine (Low Dose Booster) Moderna COVID-19 Vaccine (Low Dose Booster) Unknown Completed [facility] Afluria (IIV4) - 3 years and older - SDS - 0.5mL Afluria (IIV4) - 3 years and older - SDS - 0.5mL Unknown Completed [facility] Afluria (IIV4) - 3 years and older - SDS - 0.5mL Afluria (IIV4) - 3 years and older - SDS - 0.5mL Unknown Completed [facility] Fluarix (IIV4) - SDS - 0.5mL Fluarix (IIV4) - SDS - 0.5mL Unknown Completed [facility] Afluria Afluria Unknown Completed [facility] Afluria Afluria Unknown Completed [facility] Flucelvax (ccIIV4) - SDS - 0.5mL Flucelvax (ccIIV4) - SDS - 0.5mL Unknown Completed [facility] Td Td Unknown [facility] (Low Dose Booster) Moderna COVID-19 Vaccine (Low Dose Booster) Unknown Completed [facility] Afluria (IIV4) - 3 years and older - SDS - 0.5mL Afluria (IIV4) - 3 years and older - SDS - 0.5mL Unknown Completed [facility] Afluria (IIV4) - 3 years and older - SDS - 0.5mL Afluria (IIV4) - 3 years and older - SDS - 0.5mL Unknown Completed [facility] Fluarix (IIV4) - SDS - 0.5mL Fluarix (IIV4) - SDS - 0.5mL Unknown Completed [facility] Afluria Afluria Unknown Completed [facility] Afluria Afluria Unknown Completed [facility] Flucelvax (ccIIV4) - SDS - 0.5mL Flucelvax (ccIIV4) - SDS - 0.5mL Unknown Completed [facility] Td Td Unknown Completed [facility] Moderna COVID-19 Vaccine (Low Dose Booster) Moderna COVID-19 Vaccine (Low Dose Booster) Unknown Completed [facility] Afluria (IIV4) - 3 years and older - SDS - 0.5mL Afluria (IIV4) - 3 years and older - SDS - 0.5mL Unknown Completed [facility] Afluria (IIV4) - 3 years and older - SDS - 0.5mL Afluria (IIV4) - 3 years and older - SDS - 0.5mL Unknown Completed [facility] Fluarix (IIV4) - SDS - 0.5mL Fluarix (IIV4) - SDS - 0.5mL Unknown Completed [facility] Afluria Afluria Unknown Completed [facility] Afluria Afluria Unknown Completed [facility] Flucelvax (ccIIV4) - SDS - 0.5mL Flucelvax (ccIIV4) - SDS - 0.5mL Unknown Completed [facility] Td Td Unknown Completed [facility] Moderna COVID-19 Vaccine (Low Dose Booster) Moderna COVID-19 Vaccine (Low Dose Booster) Unknown Completed [facility] Afluria (IIV4) - 3 years and older - SDS - 0.5mL Afluria (IIV4) - 3 years and older - SDS - 0.5mL Unknown Completed [facility] Afluria (IIV4) - 3 years and older - SDS - 0.5mL Afluria (IIV4) - 3 years and older - SDS - 0.5mL Unknown Completed [facility] Fluarix (IIV4) - SDS - 0.5mL Fluarix (IIV4) - SDS - 0.5mL Unknown Completed [facility] Afluria Afluria Unknown Completed [facility] Afluria Afluria Unknown Completed [facility] Flucelvax (ccIIV4) - SDS - 0.5mL Flucelvax (ccIIV4) - SDS - 0.5mL Unknown Completed [facility] Td Td Unknown Completed [facility] Moderna COVID-19 Vaccine (Low Dose Booster) Moderna COVID-19 Vaccine (Low Dose Booster) Unknown Completed [facility] Afluria (IIV4) - 3 years and older - SDS - 0.5mL Afluria (IIV4) - 3 years and older - SDS - 0.5mL Unknown Completed [facility] Afluria (IIV4) - 3 years and older - SDS - 0.5mL Afluria (IIV4) - 3 years and older - SDS - 0.5mL Unknown Completed [facility] Fluarix (IIV4) - SDS - 0.5mL Fluarix (IIV4) - SDS - 0.5mL Unknown Completed [facility] Afluria Afluria Unknown Completed [facility] Afluria Afluria Unknown Completed [facility] Flucelvax (ccIIV4) - SDS - 0.5mL Flucelvax (ccIIV4) - SDS - 0.5mL Unknown Completed [facility] Td Td Unknown Completed [facility] Moderna COVID-19 Vaccine (Low Dose Booster) Moderna COVID-19 Vaccine (Low Dose Booster) Unknown Completed [facility] Afluria (IIV4) - 3 years and older - SDS - 0.5mL Afluria (IIV4) - 3 years and older - SDS - 0.5mL Unknown Completed [facility] Afluria (IIV4) - 3 years and older - SDS - 0.5mL Afluria (IIV4) - 3 years and older - SDS - 0.5mL Unknown Completed [facility] Fluarix (IIV4) - SDS - 0.5mL Fluarix (IIV4) - SDS - 0.5mL Unknown Completed [facility] Afluria Afluria Unknown Completed [facility] Afluria Afluria Unknown Completed [facility] Flucelvax (ccIIV4) - SDS - 0.5mL Flucelvax (ccIIV4) - SDS - 0.5mL Unknown Completed [facility] Td Td Unknown [facility]ose Bo[facility]) Moderna COVID-19 Vaccine (Low Dose Booster) Unknown Completed [facility] Afluria (IIV4) - 3 years and older - SDS - 0.5mL Afluria (IIV4) - 3 years and older - SDS - 0.5mL Unknown Completed [facility] Afluria (IIV4) - 3 years and older - SDS - 0.5mL Afluria (IIV4) - 3 years and older - SDS - 0.5mL Unknown Completed [facility] Fluarix (IIV4) - SDS - 0.5mL Fluarix (IIV4) - SDS - 0.5mL Unknown Completed [facility] Afluria Afluria Unknown Completed [facility] Afluria Afluria Unknown Completed [facility] Flucelvax (ccIIV4) - SDS - 0.5mL Flucelvax (ccIIV4) - SDS - 0.5mL Unknown Completed [facility] Td Td Unknown Completed [facility] Moderna COVID-19 Vaccine (Low Dose Booster) Moderna COVID-19 Vaccine (Low Dose Booster) Unknown Completed [facility] Afluria (IIV4) - 3 years and older - SDS - 0.5mL Afluria (IIV4) - 3 years and older - SDS - 0.5mL Unknown Completed [facility] Afluria (IIV4) - 3 years and older - SDS - 0.5mL Afluria (IIV4) - 3 years and older - SDS - 0.5mL Unknown Completed [facility] Fluarix (IIV4) - SDS - 0.5mL Fluarix (IIV4) - SDS - 0.5mL Unknown Completed [facility] Afluria Afluria Unknown Completed [facility] Afluria Afluria Unknown Completed [facility] Flucelvax (ccIIV4) - SDS - 0.5mL Flucelvax (ccIIV4) - SDS - 0.5mL Unknown Completed [facility] Td Td Unknown Completed [facility] Moderna COVID-19 Vaccine (Low Dose Booster) Moderna COVID-19 Vaccine (Low Dose Booster) Unknown Completed [facility] Afluria (IIV4) - 3 years and older - SDS - 0.5mL Afluria (IIV4) - 3 years and older - SDS - 0.5mL Unknown Completed [facility] Afluria (IIV4) - 3 years and older - SDS - 0.5mL Afluria (IIV4) - 3 years and older - SDS - 0.5mL Unknown Completed [facility] Fluarix (IIV4) - SDS - 0.5mL Fluarix (IIV4) - SDS - 0.5mL Unknown Completed [facility] Afluria Afluria Unknown Completed [facility] Afluria Afluria Unknown Completed [facility] Flucelvax (ccIIV4) - SDS - 0.5mL Flucelvax (ccIIV4) - SDS - 0.5mL Unknown Completed [facility] Td Td Unknown Completed [facility] MODERNA COVID-19 VACCINE (LOW DOSE BOOSTER) MODERNA COVID-19 VACCINE (LOW DOSE BOOSTER) Unknown Completed [facility] Afluria (IIV4) - 3 years and older - SDS - 0.5mL Afluria (IIV4) - 3 years and older - SDS - 0.5mL Unknown Completed [facility] Afluria (IIV4) - 3 years and older - SDS - 0.5mL Afluria (IIV4) - 3 years and older - SDS - 0.5mL Unknown Completed [facility] Fluarix (IIV4) - SDS - 0.5mL Fluarix (IIV4) - SDS - 0.5mL Unknown Completed [facility] Afluria Afluria Unknown Completed [facility] Afluria Afluria Unknown Completed [facility] Flucelvax (ccIIV4) - SDS - 0.5mL Flucelvax (ccIIV4) - SDS - 0.5mL Unknown Completed [facility] Td Td Unknown Completed [facility] MODERNA COVID-19 VACCINE (LOW DOSE BOOSTER) MODERNA COVID-19 VACCINE (LOW DOSE BOOSTER) Unknown Completed [facility] Afluria (IIV4) - 3 years and older - SDS - 0.5mL Afluria (IIV4) - 3 years and older - SDS - 0.5mL Unknown Completed [facility] Afluria (IIV4) - 3 years and older - SDS - 0.5mL Afluria (IIV4) - 3 years and older - SDS - 0.5mL Unknown Completed [facility] Fluarix (IIV4) - SDS - 0.5mL Fluarix (IIV4) - SDS - 0.5mL Unknown Completed [facility] Afluria Afluria Unknown Completed [facility] Afluria Afluria Unknown Completed [facility] Flucelvax (ccIIV4) - SDS - 0.5mL Flucelvax (ccIIV4) - SDS - 0.5mL Unknown Completed [facility] Td Td Unknown Completed [facility] MODERNA COVID-19 VACCINE (LOW DOSE BOOSTER) MODERNA COVID-19 VACCINE (LOW DOSE BOOSTER) Unknown Completed [facility] Afluria (IIV4) - 3 years and older - SDS - 0.5mL Afluria (IIV4) - 3 years and older - SDS - 0.5mL Unknown Completed [facility] Afluria (IIV4) - 3 years and older - SDS - 0.5mL Afluria (IIV4) - 3 years and older - SDS - 0.5mL Unknown Completed [facility] Fluarix (IIV4) - SDS - 0.5mL Fluarix (IIV4) - SDS - 0.5mL Unknown Completed [facility] Afluria Afluria Unknown Completed [facility] Afluria Afluria Unknown Completed [facility] Flucelvax (ccIIV4) - SDS - 0.5mL Flucelvax (ccIIV4) - SDS - 0.5mL Unknown Completed [facility] Td Td Unknown Completed [facility] MODERNA COVID-19 VACCINE (LOW DOSE BOOSTER) MODERNA COVID-19 VACCINE (LOW DOSE BOOSTER) Unknown Completed [facility] Afluria (IIV4) - 3 years and older - SDS - 0.5mL Afluria (IIV4) - 3 years and older - SDS - 0.5mL Unknown Completed [facility] Afluria (IIV4) - 3 years and older - SDS - 0.5mL Afluria (IIV4) - 3 years and older - SDS - 0.5mL Unknown Completed [facility] Fluarix (IIV4) - SDS - 0.5mL Fluarix (IIV4) - SDS - 0.5mL Unknown Completed [facility] Afluria Afluria Unknown Completed [facility] Afluria Afluria Unknown Completed [facility] Flucelvax (ccIIV4) - SDS - 0.5mL Flucelvax (ccIIV4) - SDS - 0.5mL Unknown Completed [facility] Td Td Unknown Completed [facility] MODERNA COVID-19 VACCINE (LOW DOSE BOOSTER) MODERNA COVID-19 VACCINE (LOW DOSE BOOSTER) Unknown Completed [facility] Afluria (IIV4) - 3 years and older - SDS - 0.5mL Afluria (IIV4) - 3 years and older - SDS - 0.5mL Unknown Completed [facility] Afluria (IIV4) - 3 years and older - SDS - 0.5mL Afluria (IIV4) - 3 years and older - SDS - 0.5mL Unknown Completed [facility] Fluarix (IIV4) - SDS - 0.5mL Fluarix (IIV4) - SDS - 0.5mL Unknown Completed [facility] Afluria Afluria Unknown Completed [facility] Afluria Afluria Unknown Completed [facility] Flucelvax (ccIIV4) - SDS - 0.5mL Flucelvax (ccIIV4) - SDS - 0.5mL Unknown Completed [facility] Td Td Unknown Completed [facility] MODERNA COVID-19 VACCINE (LOW DOSE BOOSTER) MODERNA COVID-19 VACCINE (LOW DOSE BOOSTER) Unknown Completed [facility] Afluria (IIV4) - 3 years and older - SDS - 0.5mL Afluria (IIV4) - 3 years and older - SDS - 0.5mL Unknown Completed [facility] Afluria (IIV4) - 3 years and older - SDS - 0.5mL Afluria (IIV4) - 3 years and older - SDS - 0.5mL Unknown Completed [facility] Fluarix (IIV4) - SDS - 0.5mL Fluarix (IIV4) - SDS - 0.5mL Unknown Completed [facility] Afluria Afluria Unknown Completed [facility] Afluria Afluria Unknown Completed [facility] Flucelvax (ccIIV4) - SDS - 0.5mL Flucelvax (ccIIV4) - SDS - 0.5mL Unknown Completed [facility] Td Td Unknown Completed [facility] Vital Signs Vital Name Observation Time Observation Value Comments S ource height 2024-01-21 15:40:00 66.5 [in_i] Comm on [facility] weight 2024-01-21 15:40:00 290 [lb_av] Comm on [facility] temperature 2024-01-21 15:40:00 98 [degF] Comm on [facility] bmi 2024-01-21 15:40:00 46.1 kg/m2 Commo n [facility] height 2024-01-04 14:00:00 66.5 [in_i] Comm on [facility] weight 2024-01-04 14:00:00 296 [lb_av] Comm on [facility] bmi 2024-01-04 14:00:00 47.05 kg/m2 Comm on [facility] height 2023-10-29 09:30:00 66.5 [in_i] Comm on [facility] weight 2023-10-29 09:30:00 286 [lb_av] Comm on [facility] bmi 2023-10-29 09:30:00 45.47 kg/m2 Comm on [facility] height 2023-10-12 09:00:00 66.5 [in_i] Comm on [facility] weight 2023-10-12 09:00:00 298 [lb_av] Comm on [facility] temperature 2023-10-12 09:00:00 97.4 [degF] Com mon [facility] bmi 2023-10-12 09:00:00 47.37 kg/m2 Comm on [facility] oximetry 2023-10-12 09:00:00 97 % Commo n [facility] respiratory rate 2023-10-12 09:00:00 17 /min Common [facility] blood pressure systolic 2023-10-12 09:00:00 130 mm[Hg] Common [facility] blood pressure diastolic 2023-10-12 09:00:00 74 mm[Hg] Common [facility] height 2023-07-11 14:00:00 66.5 [in_i] Comm on [facility] weight 2023-07-11 14:00:00 300 [lb_av] Comm on [facility] temperature 2023-07-11 14:00:00 97.9 [degF] Com mon [facility] bmi 2023-07-11 14:00:00 47.69 kg/m2 Comm on [facility] oximetry 2023-07-11 14:00:00 97 % Commo n [facility] respiratory rate 2023-07-11 14:00:00 17 /min Common [facility] blood pressure systolic 2023-07-11 14:00:00 138 mm[Hg] [facility] blood pressure diastolic 2023-07-11 14:00:00 80 mm[Hg] Common [facility] height 2023-03-27 16:40:00 66.5 [in_i] Comm on [facility] weight 2023-03-27 16:40:00 306.2 [lb_av] Co mmon [facility] temperature 2023-03-27 16:40:00 98.0 [degF] Com mon [facility] bmi 2023-03-27 16:40:00 48.68 kg/m2 Comm on [facility] oximetry 2023-03-27 16:40:00 96 % Commo n [facility] respiratory rate 2023-03-27 16:40:00 16 /min Common [facility] blood pressure systolic 2023-03-27 16:40:00 142 mm[Hg] Common [facility] blood pressure diastolic 2023-03-27 16:40:00 79 mm[Hg] Common [facility] height 2023-03-22 11:00:00 66.5 [in_i] Comm on [facility] weight 2023-03-22 11:00:00 305 [lb_av] Comm on [facility] temperature 2023-03-22 11:00:00 98.0 [degF] Com [facility] bmi 2023-03-22 11:00:00 48.49 kg/m2 Comm on [facility] oximetry 2023-03-22 11:00:00 97 % Commo n [facility] respiratory rate 2023-03-22 11:00:00 17 /min Common [facility] blood pressure systolic 2023-03-22 11:00:00 134 mm[Hg] Common [facility] blood pressure diastolic 2023-03-22 11:00:00 78 mm[Hg] Common [facility] Respiratory rate 2023-03-08 13:48:00 15 /min [facility] Oxygen saturation in Arterial blood by Pulse oximetry 2023-03-08 13:48:00 99 /min [facility] Systolic blood pressure 2023-03-08 13:46:00 99 mm[Hg] [facility] Diastolic blood pressure 2023-03-08 13:46:00 57 mm[Hg] [facility] Body temperature 2023-03-08 13:31:[address] [facility] Body height 2023-03-01 17:00:00 170.2 cm [facility] Body weight 2023-03-01 17:00:00 142.883 kg [facility] BMI 2023-03-01 17:00:00 49.34 kg/m2 [facility] Respiratory rate 2023-03-08 13:48:00 15 /min [facility] Oxygen saturation in Arterial blood by Pulse oximetry 2023-03-08 13:48:00 99 /min [facility] Systolic blood pressure 2023-03-08 13:46:00 99 mm[Hg] [facility] Diastolic blood pressure 2023-03-08 13:46:00 57 mm[Hg] [facility] Body temperature 2023-03-08 13:31:[address] [facility] Body height 2023-03-01 17:00:00 170.2 cm [facility] Body weight 2023-03-01 17:00:00 142.883 kg [facility] BMI 2023-03-01 17:00:00 49.34 kg/m2 [facility] Systolic blood pressure 2023-02-22 15:01:00 111 mm[Hg] [facility] Diastolic blood pressure 2023-02-22 15:01:00 83 mm[Hg] [facility] Heart rate 2023-02-22 15:01:00 56 /min [facility] Respiratory rate 2023-02-22 15:01:00 22 /min [facility] Oxygen saturation in Arterial blood by Pulse oximetry 2023-02-22 15:01:00 96 /min [facility] Body temperature 2023-02-22 14:47:00 36.67 Daniela [facility] Body height 2023-02-13 21:00:00 170.2 cm [facility] Body weight 2023-02-13 21:00:00 143.79 kg [facility] BMI 2023-02-13 21:00:00 49.65 kg/m2 [facility] Systolic blood pressure 2023-02-22 13:27:00 123 mm[Hg] [facility] Diastolic blood pressure 2023-02-22 13:27:00 66 mm[Hg] [facility] Heart rate 2023-02-22 13:27:00 64 /min [facility] Body temperature 2023-02-22 13:27:00 36.22 Daniela [facility] Respiratory rate 2023-02-22 13:27:00 18 /min [facility] Oxygen saturation in Arterial blood by Pulse oximetry 2023-02-22 13:27:00 98 /min [facility] Body height 2023-02-13 21:00:00 170.2 cm [facility] Body weight 2023-02-13 21:00:00 143.79 kg [facility] BMI 2023-02-13 21:00:00 49.65 kg/m2 [facility] height 2023-02-08 11:40:00 67 [in_i] Commo n [facility] weight 2023-02-08 11:40:00 327 [lb_av] Comm on [facility] bmi 2023-02-08 11:40:00 51.21 kg/m2 Comm on [facility] Systolic blood pressure 2022-10-30 21:21:00 139 mm[Hg] [facility] Diastolic blood pressure 2022-10-30 21:21:00 82 mm[Hg] [facility] Heart rate 2022-10-30 21:21:00 60 /min [facility] 2022-10-30 21:21:00 19 /min [facility] Body height 2022-10-30 21:21:00 170.2 cm [facility] Body weight 2022-10-30 21:21:00 144.244 kg [facility] BMI 2022-10-30 21:21:00 49.81 kg/m2 [facility] Oxygen saturation in Arterial blood by Pulse oximetry 2022-10-30 21:21:00 96 /min [facility] height 2022-09-18 11:00:00 67 [in_i] Commo n [facility] weight 2022-09-18 11:00:00 327.8 [lb_av] Co mmon [facility] temperature 2022-09-18 11:00:00 97.0 [degF] Com mon [facility] bmi 2022-09-18 11:00:00 51.34 kg/m2 Comm on [facility] oximetry 2022-09-18 11:00:00 98 % Commo n [facility] respiratory rate 2022-09-18 11:00:00 15 /min Common [facility] blood pressure systolic 2022-09-18 11:00:00 123 mm[Hg] Common [facility] blood pressure diastolic 2022-09-18 11:00:00 74 mm[Hg] Common [facility] height 2022-08-28 14:40:00 67 [in_i] Commo n [facility] weight 2022-08-28 14:40:00 329 [lb_av] Comm on [facility] bmi 2022-08-28 14:40:00 51.52 kg/m2 Comm on [facility] oximetry 2022-08-28 14:40:00 96 % Commo n [facility] respiratory rate 2022-08-28 14:40:00 25 /min Common [facility] blood pressure systolic 2022-08-28 14:40:00 119 mm[Hg] Common [facility] blood pressure diastolic 2022-08-28 14:40:00 59 mm[Hg] Common [facility] height 2022-07-11 11:00:00 67 [in_i] Commo n [facility] weight 2022-07-11 11:00:00 318.6 [lb_av] Co mmon [facility] temperature 2022-07-11 11:00:00 97.3 [degF] Com mon [facility] bmi 2022-07-11 11:00:00 49.89 kg/m2 Comm on [facility] oximetry 2022-07-11 11:00:00 99 % Commo n [facility] respiratory rate 2022-07-11 11:00:00 15 /min [facility] blood pressure systolic 2022-07-11 11:00:00 129 mm[Hg] [facility] blood pressure diastolic 2022-07-11 11:00:00 76 mm[Hg] [facility] Systolic blood pressure 2022-04-20 18:36:00 95 mm[Hg] [facility] Diastolic blood pressure 2022-04-20 18:36:00 66 mm[Hg] [facility] Heart rate 2022-04-20 18:36:00 60 /min [facility] Body temperature 2022-04-20 18:36:00 36.67 Daniela [facility] Respiratory rate 2022-04-20 18:36:00 18 /min [facility] Body height 2022-04-20 18:36:00 170.2 cm [facility] Body weight 2022-04-20 18:36:00 145.151 kg [facility] BMI 2022-04-20 18:36:00 50.12 kg/m2 [facility] height 2022-04-10 10:40:00 67 [in_i] Commo n [facility] weight 2022-04-10 10:40:00 318.6 [lb_av] Co on [facility] temperature 2022-04-10 10:40:00 97.7 [degF] Com [facility] bmi 2022-04-10 10:40:00 49.89 kg/m2 Comm on [facility] oximetry 2022-04-10 10:40:00 98 % Commo n [facility] respiratory rate 2022-04-10 10:40:00 17 /min [facility] blood pressure systolic 2022-04-10 10:40:00 127 mm[Hg] Common [facility] blood pressure diastolic 2022-04-10 10:40:00 79 mm[Hg] [facility] height 2022-01-02 15:20:00 67 [in_i] Commo n [facility] weight 2022-01-02 15:20:00 317.2 [lb_av] Co mmon [facility] temperature 2022-01-02 15:20:00 96.4 [degF] Com mon [facility] bmi 2022-01-02 15:20:00 49.68 kg/m2 Comm on [facility] oximetry 2022-01-02 15:20:00 97 % Commo n [facility] respiratory rate 2022-01-02 15:20:00 15 /min [facility] blood pressure systolic 2022-01-02 15:20:00 96 mm[Hg] [facility] blood pressure diastolic 2022-01-02 15:20:00 60 mm[Hg] Common [facility] height 2021-12-14 10:00:00 67 [in_i] Commo n [facility] weight 2021-12-14 10:00:00 320 [lb_av] Comm on [facility] temperature 2021-12-14 10:00:00 96 [degF] Comm on [facility] bmi 2021-12-14 10:00:00 50.11 kg/m2 Comm on [facility] height 2021-11-10 09:20:00 67 [in_i] Commo n [facility] weight 2021-11-10 09:20:00 322 [lb_av] Comm on [facility] temperature 2021-11-10 09:20:00 97.6 [degF] Com mon [facility] bmi 2021-11-10 09:20:00 50.43 kg/m2 Comm on [facility] oximetry 2021-11-10 09:20:00 98 % Commo n [facility] blood pressure systolic 2021-11-10 09:20:00 131 mm[Hg] Common [facility] blood pressure diastolic 2021-11-10 09:20:00 82 mm[Hg] Common [facility] height 2021-10-07 11:20:00 67 [in_i] Commo n [facility] weight 2021-10-07 11:20:00 319.8 [lb_av] Co mmon [facility] temperature 2021-10-07 11:20:00 97.2 [degF] Com [facility] bmi 2021-10-07 11:20:00 50.08 kg/m2 Comm on [facility] oximetry 2021-10-07 11:20:00 97 % Commo n [facility] respiratory rate 2021-10-07 11:20:00 18 /min [facility] blood pressure systolic 2021-10-07 11:20:00 111 mm[Hg] [facility] blood pressure diastolic 2021-10-07 11:20:00 73 mm[Hg] [facility] Procedures Procedure Date / Time Performed Performing Clinician Source PHACOEMULSIFICATION OF CATARACT WITH INTRAOCULAR LENS IMPLANT 2023-03-08 12:53:00 Prasad Alarcon [facility] POCT GLUCOSE (AUTOMATED) 2023-03-08 12:15:00 NeemaPrasad michel [facility] POCT GLUCOSE (AUTOMATED) 2023-03-08 12:15:00 Prasad Alarcon [facility] PATIENT QUESTIONNAIRE 2023-03-08 05:01:00 Doctor Unassigned, [place] Trough [facility] PHACOEMULSIFICATION OF CATARACT WITH INTRAOCULAR LENS IMPLANT 2023-02-22 14:12:00 NeemaPrasad michel [facility] POCT GLUCOSE (AUTOMATED) 2023-02-22 13:26:00 NeemaPrasad [facility] POCT GLUCOSE (AUTOMATED) 2023-02-22 13:26:00 Prasad Alarcon [facility] PATIENT QUESTIONNAIRE 2023-02-22 05:01:00 Doctor Unassigned, [place] Trough [facility] 2023-02-22 05:01:00 Doctor Unassigned, [facility] [place] PATIENT QUESTIONNAIRE 2023-02-22 05:01:00 Doctor Unassigned, [employer] [place] [facility] 2023-02-22 05:01:00 Doctor Unassigned, [employer] ASSIGNMENT OF BENEFITS 2023-02-13 16:19:16 Doctor Unassigned, [employer] [facility] Encounters Start Date/Time End Date/Time Encounter Type Admission Type Attending Clinicians Care Facility Care Department Encounter ID Source 2023-10-11 13:33:00 Outpatient WoodwardEliei [facility] [id number] [facility] 2023-03-22 10:41:00 Outpatient MimiEliei [facility] [id number] [facility] 2023-02-28 11:02:00 Outpatient Xochilt Woodward [facility] ST[facility] [id number] [facility] 2023-02-08 11:09:00 Outpatient Xochilt Woodward STLMLC STLML[facility] [id number] [facility] 2023-01-02 09:02:01 Outpatient Sofi Rush STLMLC STL[facility] [id number] [facility] 2023-01-01 09:08:00 Outpatient Sofi Rush STLMLC ST[facility] [id number] [facility] 2022-09-14 13:58:00 Outpatient Shabazz, Na STLMLC STLMLC [id number] [facility] 2022-07-07 10:36:00 Outpatient Shabazz, Na STLMLC ST[facility] [id number] [facility] 2022-04-10 10:21:15 Outpatient Shabazz, Na STLMLC ST[facility] [id number] [facility] 2022-04-06 11:08:00 Outpatient Shabazz, Na STLMLC ST[facility] [id number] [facility] 2022-01-25 10:27:01 Outpatient Shabazz, Na STLMLC ST[facility] [id number] [facility] 2022-01-02 16:38:01 Outpatient Shabazz, Na STLMLC ST[facility]C [id number] [facility] 2021-12-21 14:25:40 Outpatient Shabazz, Na STLMLC STLMLC [id number] [facility] 2021-12-21 14:24:21 Outpatient Shabazz, Na STLMLC ST[facility]C [id number] [facility] 2021-12-21 14:13:58 Outpatient Shabazz, Na STLMLC [facility] [id number] [facility] 2021-12-21 14:12:46 Outpatient Shabazz, Na STLMLC ST[facility] [id number] [facility] 2021-12-21 13:36:34 Outpatient Shabazz, Na STLMLC ST[facility] [id number] [facility] 2021-12-21 13:35:25 Outpatient Shabazz, Na STLMLC ST[facility]C [id number] [facility] 2021-12-21 13:20:19 Outpatient Shabazz, Na STLMLC ST[facility] [id number] [facility] 2021-12-21 13:19:52 Outpatient Shabazz, Na STLMLC ST[facility] [id number] [facility] 2021-12-21 12:41:36 Outpatient Shabazz, Halle STLMLC ST[facility] [id number] [facility] 2021-12-21 12:26:03 Outpatient Shabazz, Na STLMLC ST[facility]C [id number] [facility] 2021-12-21 12:18:00 Outpatient Mele Na STLMLC ST[facility] [id number] [facility] 2021-12-21 11:54:00 Outpatient Shabazz, Na STLMLC ST[facility] [id number] [facility] 2021-12-21 11:53:41 Outpatient Shabazz, Na STLMLC ST[facility]C [id number] [facility] 2021-12-21 11:53:09 Outpatient Shabazz, Na STLMLC STLMLC [id number] [facility] 2021-12-21 11:35:33 Outpatient Shabazz, Na STLMLC ST[facility]C [id number] [facility] 2021-12-21 11:20:32 Outpatient Halle Shabazz STLMLC ST[facility] [id number] [facility] 2021-12-21 11:18:09 Outpatient Halle Shabazz STL[facility]C ST[facility]C [id number] [facility] 2024-03-11 11:30:00 2024-03-11 11:30:00 Outpatient MAYUR JUAREZ [facility] [id number] [facility] 2024-03-05 11:30:00 2024-03-05 11:30:00 Outpatient MAYUR JUAREZ [facility] [id number] [facility] 2024-02-26 00:00:00 2024-02-26 00:00:00 (TEL) STLMLC STLMLC [id number] [facility] 2024-02-21 00:00:00 2024-02-21 00:00:00 Outpatient GC_GCBZW_Ro man_M [facility] [id number] [facility] 2024-02-19 00:00:00 2024-02-19 00:00:00 (TEL) STLMLC STLMLC [id number] [facility] 2024-01-21 00:00:00 2024-01-21 00:00:00 OFFICE VISIT ESTAB PT LEVEL 4 STLMLC STLMLC [id number] [facility] 2024-01-04 00:00:00 2024-01-04 00:00:00 OFFICE VISIT ESTAB PT LEVEL 3 [facility]C STL[facility]C [id number] [facility] 2024-01-04 00:00:00 2024-01-04 00:00:00 (TEL) STLMLC STLMLC [id number] [facility] 2023-12-03 00:00:00 2023-12-03 00:00:00 (TEL) STLMLC STLMLC [id number] [facility] 2023-11-23 00:00:00 2023-11-23 00:00:00 (TEL) STLMLC STLMLC [id number] [facility] 2023-11-22 00:00:00 2023-11-22 00:00:00 (TEL) STLMLC STLMLC [id number] [facility] 2023-10-29 00:00:00 2023-10-29 00:00:00 OFFICE VISIT ESTAB PT LEVEL 4 [facility]C STLMLC [id number] [facility] 2023-10-29 00:00:00 2023-10-29 00:00:00 (TEL) STLMLC STLMLC [id number] [facility] 2023-10-12 00:00:00 2023-10-12 00:00:00 OFFICE VISIT ESTAB PT LEVEL 4 STLMLC STLMLC [id number] [facility] 2023-10-10 00:00:00 2023-10-10 00:00:00 (TEL) STLMLC STLMLC [id number] [facility] 2023-08-29 00:00:00 2023-08-29 00:00:00 (TEL) STLMLC STLMLC [id number] [facility] 2023-08-17 00:00:00 2023-08-17 00:00:00 (TEL) STLMLC STLMLC [id number] [facility] 2023-07-16 00:00:00 2023-07-16 00:00:00 Outpatient GC_GCBZW_Ro man_M [facility] [id number] [facility] 2023-07-11 00:00:00 2023-07-11 00:00:00 OFFICE VISIT ESTAB PT LEVEL 4 STLMLC STLMLC [id number] [facility] 2023-07-09 00:00:00 2023-07-09 00:00:00 (TEL) STLMLC STLMLC [id number] [facility] 2023-07-02 00:00:00 2023-07-02 00:00:00 (TEL) STLMLC STLMLC [id number] [facility] 2023-06-12 00:00:00 2023-06-12 00:00:00 (TEL) STLMLC STLMLC [id number] [facility] 2023-05-03 00:00:00 2023-05-03 00:00:00 (TEL) STLMLC STLMLC [id number] [facility] 2023-04-24 00:00:00 2023-04-24 00:00:00 (TEL) STLMLC STLMLC [id number] [facility] 2023-04-20 10:30:00 2023-04-20 10:30:00 Outpatient OPAL URENA [facility] [id number] [facility] 2023-04-20 10:30:00 2023-04-20 10:30:00 Outpatient Alisha GARDNER OPAL [facility] [id number] [facility] 2023-03-27 00:00:00 2023-03-27 00:00:00 OFFICE VISIT ESTAB PT LEVEL 4 STLMLC STLMLC [id number] [facility] 2023-03-23 00:00:00 2023-03-23 00:00:00 (TEL) STLMLC STLMLC [id number] [facility] 2023-03-22 00:00:00 2023-03-22 00:00:00 OFFICE VISIT ESTAB PT LEVEL 4 STLMLC STLMLC [id number] [facility] 2023-03-08 08:34:00 2023-03-08 09:09:00 Prasad Lamb [facility] 1.2.840.114 350.1.13.10 4.2.7.2.686 [id number] [facility] 2023-03-08 07:01:00 2023-03-08 09:08:00 Outpatient PRASAD MANZO [facility] [id number] [facility] 2023-03-08 07:01:2023-03-08 09:08:00 Hospital Encounter Prasad Alarcon [facility] 1.2.840.114 350.1.13.10 4.2.7.2.686 [id number] [facility] 2023-03-08 00:00:00 2023-03-08 00:00:00 Orders Only Doctor Unassigned, Oil Trough [facility] 1.2.840.114 350.1.13.10 4.2.7.2.686 [id number] [facility] 2023-02-22 08:07:00 2023-02-22 10:09:00 Outpatient R PRASAD ALARCON [facility] OPH [id number] [facility] 2023-02-22 08:07:00 2023-02-22 10:09:00 Hospital Encounter Prasad Alarcon [facility] 1.2.840.114 350.1.13.10 4.2.7.2.686 [id number] [facility] 2023-02-22 09:06:00 2023-02-22 09:41:00 Surgery Prasad Alarcon [facility] 1.2.840.114 350.1.13.10 4.2.7.2.686 [id number] [facility] 2023-02-13 00:00:00 2023-02-13 00:00:00 Orders Only Doctor Unassigned, [employer] [place] [facility] 1.2.840.114 350.1.13.10 4.2.7.2.686 [id number] [facility] 2023-02-08 00:00:00 2023-02-08 00:00:00 OFFICE VISIT ESTAB PT LEVEL 3 STLMLC STLMLC [id number] [facility] 2023-02-07 00:00:00 2023-02-07 00:00:00 (TEL) STLMLC STLMLC [id number] [facility] 2023-01-23 00:00:00 2023-01-23 00:00:00 (TEL) STLMLC STLMLC [id number] [facility] 2023-01-17 00:00:00 2023-01-17 00:00:00 (TEL) STLMLC STLMLC [id number] [facility] 2023-01-09 00:00:00 2023-01-09 00:00:00 (TEL) STLMLC STLMLC [id number] [facility] 2023-01-02 00:00:00 2023-01-02 00:00:00 (TEL) STLMLC STLMLC [id number] [facility] 2023-01-02 00:00:00 2023-01-02 00:00:00 (TEL) STLMLC STLMLC [id number] [facility] 2022-12-28 00:00:00 2022-12-28 00:00:00 Telephone CehnViviana 1.2.840.114 350.1.13.10 4.2.7.2.686 [id number] [facility] 2022-11-29 00:00:00 2022-11-29 00:00:00 (TEL) STLMLC STLMLC [id number] [facility] 2022-11-22 00:00:00 2022-11-22 00:00:00 (TEL) STLMLC STLMLC [id number] [facility] 2022-11-17 00:00:00 2022-11-17 00:00:00 (TEL) STLMLC STLMLC [id number] [facility] 2022-11-10 00:00:00 2022-11-10 00:00:00 (TEL) STLMLC STLMLC [id number] [facility] 2022-11-10 00:00:00 2022-11-10 00:00:00 OFFICE VISIT EST PT LEVEL 3 STLMLC STLMLC [id number] [facility] 2022-11-01 00:00:00 2022-11-01 00:00:00 (TEL) STLMLC STLMLC [id number] [facility] 2022-10-31 00:00:00 2022-10-31 00:00:00 (TEL) STLMLC STLMLC [id number] [facility] 2022-10-30 15:30:00 2022-10-30 16:33:07 Outpatient R ASHLEY SINGLETON [facility] [id number] [facility] 2022-10-30 15:30:00 2022-10-30 16:33:07 Office Visit Ashley Singleton [facility] 1.2.840.114 350.1.13.10 4.2.7.2.686 [id number] [facility] 2022-10-09 00:00:00 2022-10-09 00:00:00 (TEL) STLMLC STLMLC [id number] [facility] 2022-09-18 00:00:00 2022-09-18 00:00:00 OFFICE VISIT EST PT LEVEL 3 STLMLC STLMLC [id number] [facility] 2022-08-28 00:00:00 2022-08-28 00:00:00 OFFICE VISIT ESTAB PT LEVEL 2 STLMLC STLMLC [id number] [facility] 2022-07-28 00:00:00 2022-07-28 00:00:00 (TEL) STLMLC STLMLC [id number] [facility] 2022-07-27 00:00:00 2022-07-27 00:00:00 (TEL) STLMLC STLMLC [id number] [facility] 2022-07-11 00:00:00 2022-07-11 00:00:00 OFFICE VISIT ESTAB PT LEVEL 4 STLMLC STLMLC [id number] [facility] 2022-05-31 00:00:00 2022-05-31 00:00:00 (TEL) STLMLC STLMLC [id number] [facility] 2022-05-05 09:04:49 2022-05-05 23:59:00 Outpatient R ADUM, [facility] [id number] [facility] 2022-05-05 09:04:49 2022-05-05 23:59:00 Hospital Encounter Adum, [facility] 1.2.840.114 350.1.13.10 4.2.7.2.686 [id number] [facility] 2022-05-02 00:00:00 2022-05-02 00:00:00 Telephone Anny Dailey [place] 1..840.114 350.1.13.10 4.2.7.2.686 [id number] [facility] 2022-04-20 13:30:00 2022-04-20 14:15:17 Outpatient R ADUM [facility] [id number] [facility] 2022-04-20 13:30:00 2022-04-20 14:15:17 Office Visit Adum, [facility] 1.2.840.114 350.1.13.10 4.2.7.2.686 [id number] [facility] 2022-04-20 00:00:00 2022-04-20 00:00:00 (TEL) STLMLC STLMLC [id number] [facility] 2022-04-10 00:00:00 2022-04-10 00:00:00 OFFICE VISIT ESTAB PT LEVEL 4 STLMLC STLMLC [id number] [facility] 2022-03-16 15:30:00 2022-03-16 15:30:00 Outpatient R ADUM, [facility] [id number] [facility] 2022-03-09 00:00:00 2022-03-09 00:00:00 (TEL) STLMLC STLMLC [id number] [facility] 2022-02-06 00:00:00 2022-02-06 00:00:00 (TEL) STLMLC STLMLC [id number] [facility] 2022-01-26 00:00:00 2022-01-26 00:00:00 OFFICE VISIT EST PT LEVEL 3 STLMLC STLMLC [id number] [facility] 2022-01-02 00:00:00 2022-01-02 00:00:00 (TEL) STLMLC STLMLC [id number] [facility] 2022-01-02 00:00:00 2022-01-02 00:00:00 OFFICE VISIT ESTAB PT LEVEL 2 STLMLC STLMLC [id number] [facility] 2021-12-14 00:00:00 2021-12-14 00:00:00 OFFICE VISIT EST PT LEVEL 3 STLMLC STLMLC [id number] [facility] 2021-11-24 00:00:00 2021-11-24 00:00:00 OFFICE VISIT EST PT LEVEL 3 STLMLC STLMLC [id number] [facility] 2021-11-23 00:00:00 2021-11-23 00:00:00 (TEL) STLMLC STLMLC [id number] [facility] 2021-11-21 00:00:00 2021-11-21 00:00:00 (TEL) STLMLC STLMLC [id number] [facility] 2021-11-10 00:00:00 2021-11-10 00:00:00 OFFICE VISIT ESTAB PT LEVEL 4 STLMLC STLMLC [id number] [facility] 2021-10-14 00:00:00 2021-10-14 00:00:00 (TEL) STLMLC STLMLC [id number] [facility] 2021-10-07 00:00:00 2021-10-07 00:00:00 (COVID Inj) COVID Injection STLMLC STLMLC [id number] [facility] 2021-10-07 00:00:00 2021-10-07 00:00:00 OFFICE VISIT ESTAB PT LEVEL 4 STLMLC STLMLC [id number] [facility] 2021-10-06 00:00:00 2021-10-06 00:00:00 (TEL) STLMLC STLMLC [id number] [facility] 2021-09-22 00:00:00 2021-09-22 00:00:00 (TEL) STLMLC STLMLC [id number] [facility] 2021-08-06 05:39:00 2021-08-07 12:45:00 Inpatient CYNTHIA RichardsonJoselito schumacher [facility] [id number] 36 [facility] 2021-08-02 00:00:00 2021-08-02 00:00:00 (TEL) STLMLC STLMLC [id number] [facility] 2021-07-11 00:00:00 2021-07-11 00:00:00 Outpatient STLMLC STLMLC [id number] [facility] 2021-07-05 00:00:00 2021-07-05 00:00:00 Outpatient STLMLC STLMLC [id number] [facility] 2021-06-08 00:00:00 2021-06-08 00:00:00 Outpatient STLMLC STLMLC [id number] [facility] 2021-05-25 00:00:00 2021-05-25 00:00:00 Outpatient STLMLC STLMLC [id number] [facility] 2021-05-17 00:00:00 2021-05-17 00:00:00 Outpatient STLMLC STLMLC [id number] [facility] 2021-04-19 00:00:00 2021-04-19 00:00:00 Outpatient STLMLC STLMLC [id number] [facility] 2021-04-15 00:00:00 2021-04-15 00:00:00 Outpatient STLMLC STLMLC [id number] [facility] 2021-03-31 00:00:00 2021-03-31 00:00:00 Outpatient STLMLC STLMLC [id number] [facility] 2021-03-24 13:35:27 2021-03-24 13:50:27 Aquaculture Director Visit 2, Adc Lab [facility] 1.2.840.114 350.1.13.10 4.2.7.2.686 [id number] [facility] 2021-03-24 13:35:27 2021-03-24 13:50:27 Aquaculture Director Visit 2, [facility] 1.2.840.114 350.1.13.10 4.2.7.2.686 [id number] 2021-03-24 13:15:00 2021-03-24 13:15:00 Outpatient R LAYLA [facility] [id number] [facility] 2021-03-11 14:23:31 2021-03-11 16:29:07 Office Visit AdumOpal [facility] 1.2.840.114 350.1.13.10 4.2.7.2.686 [id number] [facility] 2021-03-11 14:23:31 2021-03-11 16:29:07 Office Visit AdOpal romero [facility] 1.2.840.114 350.1.13.10 4.2.7.2.686 [id number] 2021-03-11 14:30:00 2021-03-11 14:30:00 Outpatient R ADCORTEZ [facility] [id number] [facility] 2021-03-11 00:00:00 2021-03-11 00:00:00 Orders Only Doctor Unassigned, Oil Trough [facility] 1.2.840.114 350.1.13.10 4.2.7.2.686 [id number] [facility] 2021-03-10 00:00:00 2021-03-10 00:00:00 Telephone Inga Lazo Dionicio Parr 1.2.840.114 350.1.13.10 4.2.7.2.686 [id number] [facility] 2021-02-25 00:00:00 2021-02-25 00:00:00 Outpatient STLMLC STLMLC [id number] [facility] 2021-02-20 00:00:00 2021-02-20 00:00:00 Outpatient STLMLC STLMLC [id number] [facility] 2021-02-15 00:00:00 2021-02-15 00:00:00 Outpatient STLMLC STLMLC [id number] [facility] 2021-02-11 00:00:00 2021-02-11 00:00:00 Outpatient STLMLC STLMLC [id number] [facility] 2021-02-10 00:00:00 2021-02-10 00:00:00 Outpatient STLMLC STLMLC [id number] [facility] 2021-02-09 00:00:00 2021-02-09 00:00:00 Outpatient STLMLC STLMLC [id number] [facility] 2021-02-07 00:00:00 2021-02-07 00:00:00 Outpatient STLMLC STLMLC [id number] [facility] 2021-01-30 16:10:00 2021-01-30 16:10:00 Outpatient [facility] [id number] [facility] 2021-01-29 00:00:00 2021-01-29 00:00:00 Outpatient STLMLC STLMLC [id number] [facility] 2021-01-25 00:00:00 2021-01-25 00:00:00 Outpatient STLMLC STLMLC [id number] [facility] 2021-01-18 00:00:00 2021-01-18 00:00:00 Outpatient STLMLC STLMLC [id number] [facility] 2021-01-02 15:10:00 2021-01-02 15:10:00 Outpatient JESSICA HELTON [facility] [id number] [facility] 2020-12-07 00:00:00 2020-12-07 00:00:00 Outpatient STLMLC STLMLC [id number] [facility] 2020-11-04 00:00:00 2020-11-04 00:00:00 Outpatient STLMLC STLMLC [id number] [facility] 2020-11-03 00:00:00 2020-11-03 00:00:00 Outpatient STLMLC STLMLC [id number] [facility] 2020-09-27 00:00:00 2020-09-27 00:00:00 Outpatient STLMLC STLMLC [id number] [facility] 2020-09-06 00:00:00 2020-09-06 00:00:00 Outpatient STLMLC STLMLC [id number] [facility] 2020-07-06 11:42:00 2020-07-06 11:42:00 Outpatient [facility] [id number] [facility] 2020-07-05 10:00:00 2020-07-05 10:00:00 Outpatient [facility] [id number] [facility] 2020-07-02 00:00:00 2020-07-02 00:00:00 Telephone Peng Glez [facility] Needvilleyadiel Bolañso [facility] 1.2.840.114 350.1.13.10 4.2.7.2.686 [id number] [facility] 2020-06-14 13:12:00 2020-06-14 13:12:00 Outpatient [facility] [id number] [facility] 2020-06-01 12:30:00 2020-06-01 23:59:00 Hospital Encounter Peng Glez [facility] 1.2.840.114 350.1.13.10 4.2.7.2.686 [id number] [facility] 2020-06-01 00:00:00 2020-06-01 00:00:00 Outpatient PENG SEXTON [facility] [id number] [facility] 2020-05-28 00:00:00 2020-05-28 00:00:00 Refill Peng Glez [facility] [id number] [facility] 2020-05-27 15:57:00 2020-05-27 15:57:00 Outpatient [facility] [id number] [facility] 2020-05-11 00:00:00 2020-05-11 00:00:00 Outpatient [facility] [id number] [facility] 2020-05-11 00:00:00 2020-05-11 00:00:00 Telephone Peng G[facility] [id number] [facility] 2020-05-04 13:46:00 2020-05-04 13:46:00 Outpatient [facility] [id number] [facility] 2020-04-29 00:00:00 2020-04-29 00:00:00 Telephone [place] [facility] [id number] [facility] 2020-04-23 00:00:00 2020-04-23 00:00:00 Telephone ePng Glez [facility] [id number] [facility] 2020-04-21 16:33:00 2020-04-21 16:33:00 [facility] Medicine [id number] [facility] 2020-04-01 10:40:00 2020-04-01 10:40:00 [facility] [id number] [facility] 2020-03-08 16:19:00 2020-03-08 16:19:00 [facility] [id number] [facility] 2020-03-01 14:28:00 2020-03-01 14:28:00 [facility] [facility] [id number] [facility] 2020-02-20 08:21:37 2020-02-20 15:48:50 Telemedici ne Visit Peng Glez [facility] 1.2.840.114 350.1.13.10 4.2.7.2.686 [id number] [facility] 2020-02-20 08:40:00 2020-02-20 08:40:00 Outpatient PENG SEXTON [facility] [id number] [facility] 2020-01-28 16:24:00 2020-01-28 16:24:[address] [facility] [id number] [facility] 2020-01-13 00:00:00 2020-01-13 00:00:00 Orders Only Doctor Unassigned, [place] 1.2.840.114 350.1.13.10 4.2.7.2.686 [id number] [facility] 2020-01-07 11:21:00 2020-01-07 11:21:[address] [facility] [facility] [id number] [facility] 2020-01-05 14:40:00 2020-01-05 14:40:[address] [facility] [id number] [facility] 2019-12-19 11:20:00 2019-12-19 11:20:[address] [facility] [id number] [facility] 2019-11-17 10:40:00 2019-11-17 10:40:00 [facility] [facility] [id number] [facility] 2019-11-12 15:22:00 2019-11-12 15:22:00 [address] [facility] [id number] [facility] 2019-10-13 08:38:00 2019-10-13 08:38:[address] [facility] [id number] [facility] 2019-09-25 09:55:00 2019-09-25 09:55:[address] [facility] [id number] [facility] 2019-09-12 10:00:00 2019-09-12 10:00:00 [facility] [id number] [facility] 2019-08-21 14:20:00 2019-08-21 14:20:00 [facility] [id number] [facility] 2019-08-14 09:45:00 2019-08-14 09:45:00 [facility] [id number] [facility] 2019-07-23 09:30:00 2019-07-23 09:30:00 [facility] [id number] [facility] 2019-07-21 00:00:00 2019-07-21 00:00:00 Orders Only Doctor Unassigned, [place] 1.2.840.114 350.1.13.10 4.2.7.2.686 [id number] [id number] [facility] 2019-07-18 13:20:00 2019-07-18 13:20:00 [facility] [id number] [facility] 2019-07-09 00:00:00 2019-07-09 00:00:00 Telephone [facility] 1.2.840.114 350.1.13.10 4.2.7.2.686 [id number] [facility] 2019-06-20 00:00:00 2019-06-20 00:00:00 Orders Only Doctor Unassigned, [place] 1.2.840.114 350.1.13.10 4.2.7.2.686 [id number] [id number] [facility] 2019-05-21 13:45:00 2019-05-21 13:45:00 [facility] [id number] [facility] 2019-05-16 11:30:00 2019-05-16 11:30:00 [facility] [id number] [facility] 2019-05-13 10:40:00 2019-05-13 10:40:00 [facility] [id number] [facility] 2019-05-08 11:30:00 2019-05-08 11:30:00 [facility] [id number] [facility] 2019-04-11 00:00:00 2019-04-11 00:00:00 Orders Only Doctor Unassigned, [place] [facility] 1.2.840.114 350.1.13.10 4.2.7.2.686 [id number] [facility] 2019-03-13 10:40:00 2019-03-13 10:40:00 [facility] [id number] [facility] 2019-02-19 11:30:00 2019-02-19 11:30:00 [facility] [id number] [facility] 2019-02-14 11:15:00 2019-02-14 11:15:00 [facility] [id number] [facility] 2019-02-05 09:30:00 2019-02-05 09:30:00 [facility] [id number] [facility] 2019-01-17 11:00:00 2019-01-17 11:00:00 [facility] [id number] [facility] 2019-01-13 08:30:00 2019-01-13 08:30:00 [facility] [id number] [facility] 2018-12-24 07:58:00 2018-12-24 07:58:00 [facility] [id number] [facility] 2018-12-17 10:15:00 2018-12-17 10:15:00 [facility] [id number] [facility] 2018-12-13 09:35:00 2018-12-13 09:35:[address] [facility] [id number] [facility] 2018-12-11 10:30:00 2018-12-11 10:30:[address] [facility] [id number] [facility] 2018-08-22 08:12:00 2018-08-22 08:12:[address] [facility] [id number] [facility] 2018-08-20 09:15:00 2018-08-20 09:15:[address] [facility] [id number] [facility] 2018-08-05 14:15:00 2018-08-05 14:15:[address] [facility] [facility] [id number] [facility] 2016-04-28 09:15:00 2016-04-28 09:15:00 Outpatient ASHLEY YANEZ [facility] [id number] [facility] 2015-02-17 00:00:00 2015-02-17 00:00:00 Orders Only Doctor Unassigned, [place] 11379.840.114 350.1.13.10 4.2.7.2.686 [id number] [id number] [facility] 2014-08-19 00:00:00 2014-08-19 00:00:00 Orders Only Doctor Unassigned, [place] 11379.840.114 350.1.13.10 4.2.7.2.686 [id number] [id number] [facility] 2014-07-28 00:00:00 2014-07-28 00:00:00 Orders Only Doctor Unassigned, [place] 1.2.840.114 350.1.13.10 4.2.7.2.686 [id number] [id number] [facility] 2014-06-18 00:00:00 2014-06-18 00:00:00 Orders Only Doctor Unassigned, [place] [facility] 1.2.840.114 350.1.13.10 4.2.7.2.686 [id number] [id number] [facility] 2013-05-09 00:00:00 2013-05-09 00:00:00 Orders Only Doctor Unassigned, [place] [facility] 1.2.840.114 350.1.13.10 4.2.7.2.686 [id number] [id number] [facility] 2012-09-30 00:00:00 2012-09-30 00:00:00 Orders Only Doctor Unassigned, [place] [facility] 1.2.840.114 350.1.13.10 4.2.7.2.686 [id number] [id number] [facility] 2012-08-13 00:00:00 2012-08-13 00:00:00 Orders Only Doctor Unassigned, [place] [facility] 1.2.840.114 350.1.13.10 4.2.7.2.686 [id number] [id number] [facility] 2012-02-29 00:00:00 2012-02-29 00:00:00 Orders Only Doctor Unassigned, [place]rough [facility] 1.2.840.114 350.1.13.10 4.2.7.2.686 [id number] [id number] [facility] Results Test Description Test Time Test Comments Results Result Co mments Source POCT GLUCOSE (AUTOMATED)2023-03-08 12:18:46* Test Item Value Reference Range Interpretation Comme nts POCT GLU (test code = 6774705919) 114 mg/dL 70-110 H Lab Interpretation (test cod e = 57832-8) Abnormal [facility] GLUCOSE (AUTOMATED)2023-03-08 12:18:46* Test Item Value Reference Range Interpretation Comme nts POCT GLU (test code = 5045335414) 114 mg/dL 70-110 H Lab Interpretation (test cod e = 45357-6) Abnormal [facility] GLUCOSE (AUTOMATED)2023-02-22 13:28:04* Test Item Value Reference Range Interpretation Comme nts POCT GLU (test code = 9889419304) 124 mg/dL 70-110 H Lab Interpretation (test cod e = 00391-1) Abnormal [facility] GLUCOSE (AUTOMATED)2023-02-22 13:28:04* Test Item Value Reference Range Interpretation Comme nts POCT GLU (test code = 9586952386) 124 mg/dL 70-110 H Lab Interpretation (test cod e = 83653-6) [facility] GBQKGBM5926-79-72 08:33:00* Test Item Value Reference Range Interpretation Comme nts GLUCOSE BEDSIDE TESTING (meño t code = GLUBED) 72 MG/DL 60-99 N - XR CHEST [id number] 06:52:00 [facility] 1965 Sex: F Patient Name: SUSIE WHITTAKER Unit No: [id number] EXAMS: CPT CODE: [id number] XR CHEST 1V 86064 EXAM: CHEST ONE VIEW INDICATION: S/P ICD LOCATION: B2 COMPARISON: August 06, 2021 TECHNIQUE:AP view of the chest FINDINGS: The heart [...] 16 Orig Print D/T: S: 08/07/2021 (0655) [facility] NAME: SUSIE WHITTAKER [id number] PHYS: [place] [address] : 1965 AGE: 55SEX: F LOC: Z.363 A PHONE #: [phone] EXAM DATE: 08/07/2021 STATUS: ADM IN FAX #: [phone] RADIOLOGY NO: PAGE 1 Signed ReportBASIC METABOLIC [id number] 06:15:00* Test Item Value Reference Range Interpretation [...] CA) 8.9 MG/DL 8.4-10.2 N CBC W/AUTO GPSY9134-11-93 05:40:00* Test Item Value Reference Range Interpretation [...] NRBC#) 0.00 K/mm3 0.0-0.1 N GLUCOSE BEDSIDE PGHPOKT2098-17-44 20:22:00* Test Item Value Reference Range Interpretation Comme nts GLUCOSE BEDSIDE TESTING (meño t code = GLUBED) 92 MG/DL 60-99 N - XR CHEST [id number] 12:24:00 [facility] : 1965 Sex: F Patient Name: SUSIE WHITTAKER Unit No: [id number] EXAMS: CPT CODE: [id number] XR CHEST 1V 88767 CLINICAL HISTORY: S/P ICD. LOCATION: A1 FINDINGS: [...] Nupur Ortiz MD Technologist: Carmine Alfaro (RT) TranscrptDate/Tm/Trnsp: 08/06/2021 (1224) t.DANNI.RC7 Orig Print D/T: S: 08/06/2021 (4048) [facility] NAME: SUSIE WHITTAKER [address] [address] PHYS: [place] [address] : 1965 AGE: 55 SEX: F LOC: LOUANN Kerr PHONE #: [phone] EXAM DATE: 08/06/2021TATUS: ADM IN FAX #: [phone] RADIOLOGY NO: PAGE 1 Signed ReportBASIC METABOLIC [id number] 09:16:00* Test Item Value Reference Range Interpretation [...] CA) 9.3 MG/DL 8.4-10.2 N Comments to Parts Assembler: NURSE WILL BRING SPECIMEN TO LABIs this [...] mg/dL VERY HIGH.........>/= 190 mg/dL Comments to Parts Assembler: NURSE WILL BRING SPECIMEN TO LABIs this a LINE draw? N [id number] 09:16:00* Test Item Value Reference Range Interpretation Comme nts MAGNESIUM (test code = MAG) 1.8 MG/DL 1.6-2.3 N Comments to Parts Assembler: NURSE WILL BRING SPECIMEN TO LABIs this a LINE draw? N BASIC METABOLIC [id number] 09:05:00* Test Item Value Reference Range Interpretation [...] CA) 9.3 MG/DL 8.4-10.2 N Comments to Parts Assembler: NURSE WILL BRING SPECIMEN TO LABIs this [...] code = LDL) MG/DL 0-99 Comments to Parts Assembler: NURSE WILL BRING SPECIMEN TO LABIs this a LINE draw? N NXCCXBTXB8929-44-23 09:05:00* Test Item Value Reference Range Interpretation Comme nts MAGNESIUM (test code = MAG) 1.8 MG/DL 1.6-2.3 N Comments to Parts Assembler: NURSE WILL BRING SPECIMEN TO LABIs this a LINE draw? N PROTHROMBIN [id number] 09:01:00* Test Item Value Reference Range Interpretation [...] systemic embolism. 3.0 - 4.5 Comments to Parts Assembler: NURSE WILL BRING SPECIMEN TO LABPTT ACTIVATED 2021-08-06 09:01:00* Test Item Value Reference Range Interpretation Comme nts PTT ACTIVATED (test code = APTT) 31.5 SECONDS 25.1-36.5 N Comments to Parts Assembler: NURSE WILL BRING SPECIMEN TO LABCBC W/AUTO [...] NRBC#) 0.00 K/mm3 0.0-0.1 N Comments to Parts Assembler: NURSE WILL BRING SPECIMEN TO LABCOVID 19 Asymptomatic IH [id number] 05:59:00* Test Item Value Reference Range Interpretation [...] Notes Date/Time Note Provider Source 2021-08-07 09:16:00 WSxqbglakii78113073L 4YtRV7ixi09p9GuGJua64Vtzddqmn CnFe9bZ2KL+IbWWxKxwOd/evUzXnXCSLAP1982-58-66E95:1 6:00 [facility] Progress NoteREPORT#:[id number] REPORT STATUS: SignedDATE:08/07/21 TIME: 915 PATIENT: SUSIE WHITTAKER UNIT #: [id number]#: [id number] [facility] [birth year] AGE: 55 SEX: F ATTEND: Joselito Bai [facility] AUTHOR: Sandor Swann MD * ALL edits [...] LE assessment: no edemaMusculoskeletal: full range of motionNeuro/SULFATE DRIER MACHINE OPERATOR: alert, oriented X 3, CN II-XII intactSkin: [...] % (Auto) (14 - 44 %) 43.5 Coles % (Auto) (4 - 13 %) 10.4 Eos % (Auto) (0 - 6 %) 1.6 Baso % (Auto) (0 - 2 %) 0.4 Neut # (Auto) (2.0 - 7.6 K/mm3) 2.20 Lymph # (Auto) (1.0 - 3.8 K/mm3) 2.18 Coles # (Auto) (0.1 - 0.8 K/mm3) 0.52 [...] edema. Pleasecorrelate clinically. 2. Mild cardiomegaly.Impression By: GINA HamiltonADIOLOGY - XR CHEST 1V 08/07 0525 Report Impression - Status: SIGNED Entered: 08/07/2021 0655 IMPRESSION:Cardiomegaly with diffuse congestive changes bilaterally. Nopneumothorax. Impression By: Coy - Holli Tolentino MD Diagnosis, Assessment Plan Free Text DxA P NotesFree Text DxA P Notes:IMP: Bradycardia s/p PPM PLAN: d/c home f/u one week. at 1032 RPT #:[id number] OF REPORTPRProgress Jibi2411-91-20G81:16:00Z.LUEP77666200-3405BCPypme able for patient hhvmHXCSKWSCXCKVWI4120-56-55O80:33:02 [facility] 2021-[facility]-07 07:45:00 GSnkqlmfvxg02090287O 5M/pDOiAGqWBW2fqWnBSbQv/exGH6 YLBoWd2sWaTEVx9apKOV2uH91smABWSrjg7833-18-56X44:4 5:619427-9744 [place] [id number] PATIENT NAME: SUSIE WHITTAKER ADMIT DATE: 08/06/21ACCOUNT NO: [id number] ROOM NO: [facility] AGE: 55 REPORT TYPE: ELECTROCARDIOGRAM SEX: F ADMITTING PHYSICIAN:Joselito Bai MD ATTENDING PHYSICIAN:Joselito Bai MD Order:[id number] Reason : S/P PPI Test Date/Time Stamp:[place] Aug 07 2021 07:45:34Blood Pressure : / [...] inverted T waves in Lateral leadsConfirmed by NUPUR ORTIZ ([id number]) on 08/07/2021 8:16:10 AM Referred By: Joselito Bai Confirmed by:NUPUR ORTIZ at 0816 PATIENT NAME: SUSIE WHITTAKER .[id number] AVAvailable for patient aiiaJLMYNPXNVRTMRJ2301-14-82G98:16:42 [facility] 2021-08-07 07:45:00 ZTwgqgfbxsv369922590 MVHdNk4SEKu9uXs7+wWj8NRu0unOC hjJh2I+Dp4B/qZz5TRtkaCeos8Mhw0aYXZ0375-84-66F00:4 5:695200-[address] [address] PATIENT NAME: SUSIE WHITTAKER ADMIT DATE: 08/06/21ACCOUNT NO: [id number] ROOM NO: [facility] AGE: 55 REPORT TYPE: ELECTROCARDIOGRAM SEX: F ADMITTING PHYSICIAN:Joselito Bai MD ATTENDING PHYSICIAN:Joselito Bai MD Order:[id number] Reason : S/P PPI Test Date/Time Stamp:[place] Aug 07 2021 07:45:34Blood Pressure : / [...] inverted T waves in Lateral leadsConfirmed by NUPUR ORTIZ ([id number]) on 08/08/2021 12:26:43 PM Referred By: Joselito Bai Confirmed by:NUPUR ORTIZ at 1226 PATIENT NAME: SUSIE WHITTAKER .[id number] AVAvailable for patient cpxcSJYZALJBQUNUQP7631-05-02O23:27:17 [facility] 2021-08-06 15:28:00 LGogucptvbn39988723U NaOinX2M6mnvXq8gNDml7SURKY+Fp OBFHqogaYP0C/atNbqa7stjZ8kenqxjYGp7355-94-97J09:2 8:00 [facility] ([facility]ITALHospitalist History PhysicalREPORT#:[id number] REPORT STATUS: SignedDATE:08/06/21 TIME: 1528 PATIENT: SUSIE WHITTAKER UNIT #: [id number]#: [id number] ROOM/BED: [facility]-ADOB: [birth year] AGE: 55 SEX: F ATTEND: Joselito Bai MDADM AUTHOR: Joselito Bai MD * ALL edits [...] night therefore she was brought by her paver layer Dr. Ortiz to undergo pacemaker placement. Procedure [...] cyanosis, no edemaMusculoskeletal: normal inspection, no muscle spasmNeuro/SULFATE DRIER MACHINE OPERATOR: alert, oriented X 3, normal speech, no [...] % (Auto) (14 - 44 %) 35.2 Coles % (Auto) (4 - 13 %) 9.1 Eos % (Auto) (0 - 6 %) 0.9 Baso % (Auto) (0 - 2 %) 0.3 Neut # (Auto) (2.0 - 7.6 K/mm3) 3.15 Lymph # (Auto) (1.0 - 3.8 K/mm3) 2.05 Coles # (Auto) (0.1 - 0.8 K/mm3) 0.53 [...] clinically. 2. Mild cardiomegaly.Impression By: Ludy - Live Geiger MD Results: labs reviewed, [...] ProphylaxisVTE prophylaxis initiated: yes at 2243 RPT #:[id number] OF REPORTHPHistory and physical ohskxogskym6383-03-04E74:28:00Z.ECNY28060999-5440 AVAvailable for patient botiCKHAFQKGZFLJYM4294-00-94C88:44:07 [facility] 2021-08-06 13:41:00 DDfkwfbnzdk72980522G QYbgULJFrQENQZKVsO7uJ0c+HkIrv YRPhoOLJPVfXDpGg0JZbpQXlAHMDTk1N4O3822-95-82S68:4 1:639870-3121 [place] [address] PATIENT NAME: SUSIE WHITTAKER ADMIT DATE: 08/06/21ACCOUNT NO: [id number] ROOM NO: [facility] AGE: 55 REPORT TYPE: ELECTROCARDIOGRAM SEX: F ADMITTING PHYSICIAN:Nupur Ortiz MD ATTENDING PHYSICIAN:Nupur Ortiz MD Order:[id number] Reason : S/P PPI Test Date/Time Stamp:[facility] Aug 06 2021 13:41:32Blood Pressure : / mmHGVent. [...] 09:02,aberrant conduction is no longer presentConfirmed by NUPUR ORTIZ ([id number]) on 08/06/2021 1:43:17 PM Referred By: Nupur Ortiz Confirmed by:NUPUR ORTIZ at 1343 PATIENT NAME: SUSIE WHITTAKER .[id number] AVAvailable for patient hsxoPBMGXDZOVBXWCL1100-87-61S37:43:36 [facility] 2021-08-06 13:41:00 VOgqpjlziql50876443C RgaOhMhr4Ntq06ak2mk8vDhFYRIdk 8/N+BB7sbcu+JxzgJXR1mHm0SZzF5oaigj5466-31-26E76:4 1:504047-[address] [address] PATIENT NAME: SUSIE WHITTAKER ADMIT DATE: 08/06/21ACCOUNT NO: [id number] ROOM NO: [facility] AGE: 55 REPORT TYPE: ELECTROCARDIOGRAM SEX: F ADMITTING PHYSICIAN:Joselito Bai MD ATTENDING PHYSICIAN:Joselito Bai MD Order:[id number] Reason : S/P PPI Test Date/Time Stamp:SunAug [...] 09:02,aberrant conduction is no longer presentConfirmed by NUPUR ORTIZ ([id number]) on 08/08/2021 12:26:39 PM Referred By: Nupur Ortiz Confirmed by:NUPUR ORTIZ at 1226 PATIENT NAME: SUSIE WHITTAKER .[id number] AVAvailable for patient dzsqFUYGUIGXOZODVT3935-74-41R29:27:17 [facility] 2021-08-06 11:31:00 OAiqhhjmseh78034660m bMecdsnzDZ4IGg06pJho8VcyaYuGr cchsrgUr6FpSEaW2dtE9zXydjThA2PTXDs4304-25-12X99:3 1:026394-3740 [place] [address] PATIENT NAME: SUSIE WHITTAKER ADMIT DATE: 08/06/21ACCOUNT NO: [id number] ROOM NO: AGE: 55 REPORT TYPE: CARDIAC CATHETERIZATION REPORT SEX: F ADMITTING PHYSICIAN: ATTENDING PHYSICIAN:Nupur Ortiz MD PROCEDURE DATE: 08/06/2021 SCALDER: Nupur Ortiz M.D. TITLE OF THE PROCEDURE: Dual-chamber [...] enclosed report in the chart. Dictated By: Nupur Ortiz MD WT: CATH:DUNIA/TONYA/NTSDD: 08/06/2021 11:31:27DT: 08/06/2021 11:40:49Conf#: [id number]/DID#: [id number] Authenticated by Nupur Ortiz MD On 08/06/2021 11:47:20 AM at 1147 PATIENT NAME: SUSIE WHITTAKER Ytil1674-73-72U07:40:00Z.[id number] ble for patient foflMYFXFTTGYWVCKV8224-66-47T78:47:57 [facility] 2021-08-06 09:02:00 CJoylixjjdl66501490B CW/2Bh1C64vwYxpJOOQOgAk2SFFL1 iRWPhwfCRLPmjMqv2kDZPPpOyjZO4eRzvU1591-35-28E71:0 2:704005-3497 [place] [address] PATIENT NAME: SUSIE WHITTAKER ADMIT DATE: 08/06/21ACCOUNT NO: [id number] ROOM NO: AGE: 55 REPORT TYPE: ELECTROCARDIOGRAM SEX: F ADMITTING PHYSICIAN: ATTENDING PHYSICIAN:Nupur Ortiz MD Order:[id number] Reason : SSS Test Date/Time Stamp:SunAug 06 2021 09:02:06Blood Pressure : / mmHGVent. Rate : 065 BPM Atrial Rate : 065 BPM P-R Int : 146 ms QRS Dur : 106 ms QT Int : 420 ms P-R-T Axes : 036 051 046 degrees QTc Int : 436 ms Sinus rhythm with premature atrial complexes with aberrant conductionNonspecific T wave abnormalityAbnormal ECGNo previous ECGs availableConfirmed by NUPUR ORTIZ ([id number]) on 08/06/2021 9:32:57 AM Referred By: Nupur Ortiz Confirmed by:NUPUR ORTIZ at 0932 PATIENT NAME: SUSIE WHITTAKER .[id number] AVAvailable for patient kjtcTKNPLAIOCJCRDG8237-60-68P37:33:18 [facility] 2021-08-05 07:13:00 YDgeflddhff68531244D KhqIiGzs9c8yCCsXrz+YBaag7gpnY n/zonc+8/+DIpVHS5M5SyARJCSkgkLQ0Yq6237-94-46M07:1 3:140549-1502 [place] [id number] PATIENT NAME: SUSIE WHITTAKER ADMIT DATE: ACCOUNT NO: [id number] ROOM NO: AGE: 55 REPORT TYPE: PREOP HISTORY AND PHYSICAL SEX: F ADMITTING PHYSICIAN: ATTENDING PHYSICIAN:Nupur Ortiz MD PATIENT NAME: SUSIE WHITTAKER ADMIT DATE:08/06/2021DMISSION DATE: 08/06/2021 SCALDER: Nupur Ortiz MD REASON FOR ADMISSION: Sick sinus syndrome with long pauses; for dual-chamberpermanent pacemaker implantation in a patient with paroxysmal atrialfibrillation. HISTORY OF PRESENT ILLNESS: Susie is a 55-year-old lady with a long [...] insufficiency. She had a negative stresstest in 2018 and a negative nuclear in 2019. There [...] ofalcohol or street drug use. PATIENT NAME: SUSIE WHITTAKER FAMILY HISTORY: Negative for premature atherosclerosis. [...] again advised strongly to quitsmoking. Dictated By: Nupur Ortiz MD WT: PREOPHP:Z.SHASHI/TONYA/AVELDD: 08/05/2021 07:13:55DT: 08/05/2021 08:06:24Conf#: [id number]/DID#: [id number] and Edited by Nupur Ortiz MD On 08/05/21 4:18:57 PM at 0421 PATIENT NAME: SUSIE WHITTAKER and physical [id number] VAvailable for patient [id number] [facility]
--- NOTE | 2024-03-06 19:49 | RAD REPORT ---
EXAM DESCRIPTION: CTAbdomen Pelvis Wo Contrast - 03/06/2024 7:32 pm CLINICAL HISTORY: FLANK PAIN COMPARISON: Abdomen Pelvis W Contrast dated 08/03/2020; Stone Protocol dated 10/09/2019; Abdomen P karma W Contrast dated 10/08/2019; Stone Protocol dated 09/11/2019 TECHNIQUE: CT of the abdomen and pelvis was performed. All CT scans are performed using dose optimization technique as appropriate and may include automated exposure control or mA/KV adjustment according to patient size. FINDINGS: Lower chest: Pacemaker leads. Liver: Hepatic steatosis. Question cirrhosis. Biliary: Cholecystectomy Stomach: No significant focal abnormality. Duodenum: No significant focal abnormality. Pancreas: No significant abnormality. Spleen: No significant abnormality. Adrenal: No suspicious lesions. Kidney/ureter: No hydronephrosis. No renal calculi. No ureteral calculi. Retroperitoneum: No retroperitoneal adenopathy. Vascular: No aneurysm. Atherosclerosis. Bowel: No significant focal abnormality.No appendicitis . Peritoneum: No ascites or free air. Small fat containing umbilical hernia. Bladder: Grossly unremarkable. Reproductive: No adnexal masses. Hysterectomy. Bones: No acute fracture. Other: n/a IMPRESSION: No acute intra-abdominal or pelvic finding. No renal or ureteral calculi.
[2024-03-06 19:50] LABS: Absolute Basophils 0.1 K/uL (0-0.5); Absolute Eosinophils 0.1 K/uL (0-0.5); Absolute Lymphocytes (CBC) 2.5 K/uL (0.7-4.9); Absolute Monocytes 0.4 K/uL (0.1-1.3); Absolute Neutrophil 2.7 K/uL (1.8-8.0); Basophils % 0.9 % (0-1.3); Eosinophils % 1.6 % (0-4.4); Hematocrit 42.2 % (36.0-45.0); Hemoglobin 13.9 g/dL (12.0-15.0); Lymphocytes % 43.2 % (15.3-44.8); MCH 29.2 pg (27.0-35.0); MCV 88.7 fL (80-100); MPV 9.2 fL (7.6-11.3); Monocytes % 7.7 % (3.3-12.3); Neutrophils % 46.6 % (41.7-73.7); Nucleated Red Blood Cells % 0.1 % (0-0); Platelets 103 thou/uL (152-406); RBC Red Blood Cell Count 4.75 M/uL (3.86-4.86); Red Cell Distribution Width 13.5 % (12.1-15.2)
[2024-03-06] MEDS ORDERED: ONDANSETRON 4 MG/2 ML VIAL ONE (20:01)
[2024-03-06] MEDS ORDERED: MORPHINE 4 MG/ML SYR ONE (20:02)
[2024-03-06 20:07] LABS: Albumin 3.7 g/dL (3.4-5.0); Albumin/Globulin Ratio 1.1 (1.1-1.8); Bilirubin Total 1.3 mg/dL (0.2-1.0); Globulin 3.5 g/dL (2.3-3.5); Protein, Total 7.2 g/dL (6.4-8.2)
--- NOTE | 2024-03-06 21:26 | RAD REPORT ---
EXAM DESCRIPTION: RAD - Chest Pa And Lat (2 Views) - 03/06/2024 8:57 pm CLINICAL HISTORY: Chest pain;SOB COMPARISON: Chest Single View dated 01/11/2024; Chest Single View dated 01/05/2024; Chest Single View dated 11/22/2021; Chest Single View dated 10/14/2021 FINDINGS: Lines: Pacemaker. Lungs: No definite edema or consolidation. Pleural: No significant pleural effusions or pneumothorax. Cardiac: Cardiomegaly. Mediastinum: Within normal limits. Bones: No acute fractures. Other: None IMPRESSION: No acute cardiopulmonary disease.
[2024-03-06 22:20] LABS: Specific Gravity 1.027 (1.005-1.030); Urine Bacteria None Seen /HPF (<20); Urine Bilirubin NEGATIVE (Negative); Urine Blood Negative (Negative); Urine Clarity Extremely Turbid (Clear); Urine Color Yellow (Yellow); Urine Crystals Unidentified Few /HPF (None Seen); Urine Culture Reflex Order NOT NEEDED; Urine Glucose NEGATIVE (Negative); Urine Ketones NEGATIVE (Negative); Urine Microscopic Reflex YN ORDER UMIC; Urine Mucus 1+ /HPF (None Seen); Urine Nitrite NEGATIVE (Negative); Urine Protein TRACE (Negative); Urine RBC <5 /HPF (None Seen); Urine Urobilinogen 1+ (Normal); Urine pH 5.5 (5.0-7.0)
--- NOTE | 2024-03-06 22:44 | EDPHYS ---
Physician Documentation [facility] Name: Madhavi Michael Age: 58 yrs Sex: Female : 1965 Arrival Date: 03/06/2024 Time: 18:07 Bed 18 Private MD: ED Physician Arnulfo Pelayo HPI: 03/06 18:45 This 58 yrs old Black Female presents to ER via Wheelchair with complaints of right sb4 flank pain. 18:45 Onset: The symptoms/episode began/occurred yesterday. sb4 19:20 Patient reports right-sided flank pain that "takes her breath away "she she describes sb4 the pain as a 10 out of 10 in severity. Took a [place] last night without any relief. Denies any urinary symptoms. Denies any history of kidney stones. Feels nauseous has not vomited. No known fever. Historical: - Allergies: 18:29 No Known Drug Allergies; ll1 - PMHx: 18:29 Asthma; Atrial Fib; COPD; CVA; Diabetes - NIDDM; Leaking Veins x2 Right Leg; ll1 neuropathy; sciatica; Sleep Apnea; - PSHx: 18:29 pacemaker; ll1 - Immunization history:: Adult Immunizations up to date. - Infectious Disease History:: Denies. - Social history:: Smoking status: Patient reports the use of cigarette tobacco products, smokes .3 packs per day. ROS: 19:20 Constitutional: Negative for fever, chills, and weight loss, sb4 19:20 Back: Positive for flank pain, on the right, 19:20 : Negative for 19:20 All other systems are negative, Exam: 19:20 Head/Face: Normocephalic, atraumatic. Eyes: Extra-ocular motions intact. Periorbital sb4 areas with no swelling, redness, or edema. ENT: Mucous membranes moist. Cardiovascular: Regular rate and rhythm with a normal S1 and S2. Respiratory: Lungs have equal breath sounds bilaterally, clear to auscultation and percussion. No rales, rhonchi or wheezes noted. No increased work of breathing, no retractions or nasal flaring. Abdomen/GI: Soft, non-tender, no distension. Skin: Warm, dry with normal turgor. Normal color with no rashes, no lesions, and no evidence of cellulitis. MS/ Extremity: Pulses equal, no cyanosis. Neurovascular intact. Full, normal range of motion. 19:20 Constitutional: The patient appears in no acute distress, alert, awake, obese, 19:20 Back: CVA tenderness, that is moderate, is noted on the right, Vital Signs: 18:36 BP 142 / 92; Pulse 66; Resp 18; Temp 97.3; Pulse Ox 98% ; Weight 131.54 kg; Height 5 ll1 ft. 7 in. ; Pain 10/10; 20:15 BP 131 / 74; Pulse 64; Resp 16; Pulse Ox 98% on R/A; rv 23:00 BP 135 / 78; Pulse 66; Resp 16; Temp 98; Pulse Ox 99% ; rv 18:36 Body Mass Index 45.42 (131.54 kg, 170.18 cm) ll1 18:36 Pain Scale: Adult ll1 Vasquez Coma Score: 20:15 Eye Response: spontaneous(4). Motor Response: obeys commands(6). Verbal Response: rv oriented(5). Total: 15. 23:00 Eye Response: spontaneous(4). Motor Response: obeys commands(6). Verbal Response: rv oriented(5). Total: 15. MDM: 18:41 Patient medically screened. sb4 22:43 Data reviewed: vital signs, nurses notes, lab test result(s), radiologic studies, and sb4 as a result, I will discharge patient. Counseling: I had a detailed discussion with the patient and/or guardian regarding the historical points, exam findings, and any diagnostic results supporting the discharge/admit diagnosis, lab results, radiology results, to return to the emergency department if symptoms worsen or persist or if there are any questions or concerns that arise at home. 03/06 18:44 Order name: CBC with Diff; Complete Time: 19:55 sb4 03/06 18:44 Order name: CMP; Complete Time: 20:10 sb4 03/06 18:44 Order name: Lipase; Complete Time: 20:10 sb4 03/06 18:44 Order name: Urinalysis w/ reflexes; Complete Time: 22:22 sb4 03/06 18:44 Order name: CT Abd/Pelvis - Without Contrast; Complete Time: 19:50 sb4 03/06 20:25 Order name: Chest Pa And Lat (2 Views) XRAY; Complete Time: 21:30 sb4 03/06 18:44 Order name: IV Saline Lock; Complete Time: 19:46 sb4 03/06 18:44 Order name: Labs collected and sent; Complete Time: 19:46 sb4 Administered Medications: 20:14 Drug: Ondansetron IVP 4 mg IVP once; over 2 minutes Route: IVP; Site: right antecubital;rv 22:59 Follow up: Response: No adverse reaction rv 20:15 Drug: morphine IVP or IV 4 mg IVP once over 4 mins Route: IVP; Infused Over: 4 mins; rv Site: right antecubital; 22:56 Follow up: Response: No adverse reaction rv 22:56 Drug: Hydrocodone-Acetaminophen PO (7.5 mg-325 mg) 1 tabs PO once Route: PO; rv 22:59 Follow up: Response: Medication administered at discharge. rv Disposition: 03/07 09:03 Co-signature as Attending Physician, Arnulfo Pelayo MD I reviewed the patient's care rn provided by the Advanced Practice Provider and agree with the diagnosis and treatment plan. Disposition Summary: 03/06/24 22:43 Discharge Ordered Notes: Location: Home sb4 Problem: new sb4 Symptoms: are unchanged sb4 Condition: Stable sb4 Diagnosis - Low back pain sb4 Followup: sb4 - With: Emergency Department - When: As needed - Reason: Trouble breathing, Worsening of condition Discharge Instructions: - Discharge Summary Sheet sb4 - Musculoskeletal Pain sb4 Forms: - Thank You Letter sb4 - Patient Portal Instructions sb4 - Leadership Thank You Letter sb4 Prescriptions: - Cyclobenzaprine 10 mg Oral Tablet - take 1 tablet ORAL route every 8 hours As needed; 30 tablet; Refills: 0, sb4 Product Selection Permitted Signatures: Dispatcher [employer] EDMS Arnulfo Pelayo MD MD rn Vicente, Ronaldo, RN RN Monse Vera RN RN ade1 Valeria Don PA-C PA-C sb4 Corrections: (The following items were deleted from the chart) 03/06 18:36 18:29 Social history: Smoking status: Patient denies any tobacco usage or history of. ll1 ll1 18:44 18:44 Abdomen Pelvis Wo Con+CT.RAD.BRZ ordered. EDMS EDMS
--- NOTE | 2024-03-06 22:44 | ER ---
Nurse's Notes [facility] Name: Madhavi Michael Age: 58 yrs Sex: Female : 1965 Arrival Date: 03/06/2024 Time: 18:07 Bed 18 Private MD: Diagnosis: Low back pain Presentation: 03/06 18:30 Coronavirus screen: Client denies travel out of the [place] in the last 14 days. At this ll1 time, the client does not indicate any symptoms associated with coronavirus-19. Ebola Screen: Patient denies travel to an Ebola-affected area in the 21 days before illness onset. Initial Sepsis Screen: Does the patient meet any 2 criteria? No. Patient's initial sepsis screen is negative. Does the patient have a suspected source of infection? No. Patient's initial sepsis screen is negative. Risk Assessment: Do you want to hurt yourself or someone else? Patient reports no desire to harm self or others. Onset of symptoms. 18:30 Method Of Arrival: Wheelchair ll1 18:36 Chief complaint: Patient states: R trunk pain/flank pain with some SOB for 2 days. ll1 Slight swelling BLE. Cant sleep flat. No fever or cough. 18:36 Acuity: SISSY 3 ll1 Triage Assessment: 18:30 General: Appears uncomfortable, Behavior is calm, cooperative, appropriate for age. ll1 Pain: Complains of pain in R trunk. 18:38 Respiratory: Reports shortness of breath. Respiratory: Reports labored breathing pain ll1 with respiration. Historical: - Allergies: 18:29 No Known Drug Allergies; ll1 - PMHx: 18:29 Asthma; Atrial Fib; COPD; CVA; Diabetes - NIDDM; Leaking Veins x2 Right Leg; ll1 neuropathy; sciatica; Sleep Apnea; - PSHx: 18:29 pacemaker; ll1 - Immunization history:: Adult Immunizations up to date. - Infectious Disease History:: Denies. - Social history:: Smoking status: Patient reports the use of cigarette tobacco products, smokes .3 packs per day. Screenin:15 [facility] [place] ED Fall Risk Assessment (Adult) History of falling in the last 3 months, rv including since admission No falls in past 3 months (0 pts) Score/Fall Risk Level 0 - 2 = Low Risk Oriented to surroundings, Maintained a safe environment, Educated pt \T\ family on fall prevention, incl call for assistance when getting out of bed, Assessed \T\ reinforced patient's understanding of fall precautions. Abuse screen: Denies threats or abuse. Denies injuries from another. Nutritional screening: No deficits noted. Tuberculosis screening: No symptoms or risk factors identified. Assessment: 20:15 General: Appears in no apparent distress. Behavior is calm, cooperative. Pain: rv Complains of pain in abdomen. Neuro: Level of Consciousness is awake, alert, obeys commands, Oriented to person, place, time, situation. Cardiovascular: Capillary refill < 3 seconds Patient's skin is warm and dry. Respiratory: Airway is patent Respiratory effort is even, unlabored. GI: Abdomen is round non-distended. Derm: Skin is intact. Vital Signs: 18:36 BP 142 / 92; Pulse 66; Resp 18; Temp 97.3; Pulse Ox 98% ; Weight 131.54 kg; Height 5 ll1 ft. 7 in. ; Pain 10/10; 20:15 BP 131 / 74; Pulse 64; Resp 16; Pulse Ox 98% on R/A; rv 23:00 BP 135 / 78; Pulse 66; Resp 16; Temp 98; Pulse Ox 99% ; rv 18:36 Body Mass Index 45.42 (131.54 kg, 170.18 cm) ll1 18:36 Pain Scale: Adult ll1 Vasquez Coma Score: 20:15 Eye Response: spontaneous(4). Motor Response: obeys commands(6). Verbal Response: rv oriented(5). Total: 15. 23:00 Eye Response: spontaneous(4). Motor Response: obeys commands(6). Verbal Response: rv oriented(5). Total: 15. ED Course: 18:10 Patient arrived in ED. ra3 18:30 Arm band placed on. ll1 18:38 Triage completed. ll1 18:41 Valeria Don PA-C is PHCP. sb4 18:41 Arnulfo Pelayo MD is Attending Physician. sb4 19:34 CT Abd/Pelvis - Without Contrast In Process Unspecified. EDMS 19:40 Inserted saline lock: 22 gauge in right antecubital area, using aseptic technique. nj1 Blood collected. 20:15 Patient has correct armband on for positive identification. Client placed on continuous rv cardiac and pulse oximetry monitoring. NIBP monitoring applied. 20:15 No provider procedures requiring assistance completed. rv 20:59 Chest Pa And Lat (2 Views) XRAY In Process Unspecified. EDMS 23:01 IV discontinued, intact, bleeding controlled, No redness/swelling at site. Pressure rv dressing applied. Administered Medications: 20:14 Drug: Ondansetron IVP 4 mg IVP once; over 2 minutes Route: IVP; Site: right antecubital;rv 22:59 Follow up: Response: No adverse reaction rv 20:15 Drug: morphine IVP or IV 4 mg IVP once over 4 mins Route: IVP; Infused Over: 4 mins; rv Site: right antecubital; 22:56 Follow up: Response: No adverse reaction rv 22:56 Drug: Hydrocodone-Acetaminophen PO (7.5 mg-325 mg) 1 tabs PO once Route: PO; rv 22:59 Follow up: Response: Medication administered at discharge. rv Medication: 20:15 VIS not applicable for this client. rv Outcome: 22:43 Discharge ordered by . jeyson 23:01 Discharged to home ambulatory, rv 23:01 Condition: good 23:01 Discharge instructions given to patient, Instructed on discharge instructions, follow up and referral plans. medication usage, Demonstrated understanding of instructions, follow-up care, medications, Prescriptions given X 1, 23:01 Patient left the ED. rv Signatures: Dispatcher [employer] EDMS Jluis Nguyen RN RN rv Monse Álvarez RN RN ll1 Valeria Don, PA-C PA-C Munira Garcia RN RN nj1 Marion Ennis ra3 Corrections: (The following items were deleted from the chart) 18:36 18:29 Social history: Smoking status: Patient denies any tobacco usage or history of. ll1 ll1 18:38 18:30 Pain: Complains of pain in abdomen ll1 ll1 18:43 18:36 Chief complaint: Patient states: R trunk pain with some SOB for 2 days. Slight ll1 swelling BLE. Cant sleep flat. No fever or cough ll1
[2024-03-06] MEDS ORDERED: HYDROCODONE/APAP 7.5/325 MG TAB ONE (22:50)
[2024-03-07 05:24] VITALS: BP 135/78; TEMP 98; O2SAT 99
== END 2024-03-06 23:01 | disposition home or self-care (01) ==
LOC: ER 18:07
DX: M54.50 Low back pain, unspecified (principal); R10.9 Unspecified abdominal pain; F17.210 Nicotine dependence, cigarettes, uncomplicated; Z95.0 Presence of cardiac pacemaker
CPT/HCPCS: 85025; 81001; 36415; 83690; 80053; 74176; 71046; 96375; 96374; 99284; J2405

== ENCOUNTER 2024-10-28 13:22 | Emergency (ER) | payer OTHER ==
--- OUTSIDE RECORDS SUMMARY | 2024-10-28 13:29 | XMS REPORT | Continuity of Care Document ---
Author Name Unknown Address [address] [facility] Jose Ramon. [address] [place] [address] [facility] thconnect Address [address] [facility] [address] Ram[address] [place] [address] Care Team Providers Care Hand Scraper Name Role Phone JOSE GUADALUPE WOODWARD Primary Care Physician Unavailab Jose Guadalupe Clarke Attending Clinician Unavailable Sofi Rush Attending Clinician Unavailable Halle Shabazz Attending Clinician Unavailable IVY RAMOS Attending Clinician Unavailable IVY RAMOS Attending Clinician Unavailable Ivy Ramos PA-C Attending Clinician [phone] Peng Glez MD Attending Clinician [phone] Ashley Singleton MD Attending Clinician [phone] Doctor Unassigned, [place] Attending Clinician U justicemarcelino ESTEPHANIA CORRALES Attending Clinician Unavailable Estephania Corrales MD Attending Clinician [phone] Yanet Simon MD Attending Clinician [phone] PENG GLEZ Attending Clinician Unavail able PENG GLEZ Attending Clinician Unavail able Doctor Unassigned, [place] Attending Clinician U rosa MAYUR ZURITA Attending Clinician Unavailable [email or web address]_M Attending Clinician Unavailable OPAL GARDNER Attending Clinician Unavailable Neema MARTINEZ, Prasad De Los Santos Attending Clinician + [phone] PRASAD ALARCON Attending Clinician Viviana Chavira MA Attending Clinician Unavaila ASHLEY Chiu Attending Clinician UnavailAshley Richardson MD Attending Clinician [phone] TAMI MICHELE Attending Clinician Unavailable Opal Gardner MD Attending Clinician [phone] Anny Dailey RN Attending Clinician Unav ailmarcelino Bai, [place] Attending Clinician Unavailable 2, [facility] Attending Clinician Unavailable Inga Lazo MA Attending Clinician UnavailJESSICA Will Attending Clinician Unavailable Peng Glez MD Attending Clinician [phone] ASHLEY SINGLETON Attending Clinician UnavailIVY Contreras Admitting Clinician Unavailable PENG GLEZ Admitting Clinician Unavail able FARAZ_GCBZW_Joelle Admitting Clinician Unavailable PRASAD ALARCON Admitting Clinician Prasad Arango MD Admitting Clinician + [phone] OPAL GARDNER Admitting Clinician Unavailable Richardson, [place] Admitting Clinician Unavailable Payers Payer Name Policy Type Policy Number Effective Date Expirati on Date Source [facility] ST[facility] PLUS [id number] 2015 00:00[facility] [id number] 2020 00:00:00 [facility] PLUS C1 [id number] 2017 00:00:00 [facility] PLUS C1 [id number] 2020 00:00:00 [facility] PLUS C1 [id number] 2017 00:00:00 [facility] PLUS C1 [id number] 2017 00:00:00 [facility] PLUS C1 [id number] 2017 00:00:00 [facility] Problems Condition Name Condition Details Condition Category Status Onset Date Resolution Date Last Treatment Date Treating Clinician Comments Source Verruca vulgaris Verruca vulgaris Disease Active 03-17 00:00: 00 [facility] Lymphedema of lower extremity Lymphedema of lower extremity Disease Active 2021-11 00:00: 00 [facility] Peripheral venous insufficie ncy Peripheral venous insufficie ncy Disease Active 2021-11 00:00: 00 [facility] Varicose veins of lower extremity Varicose veins of lower extremity Disease Active 12-26 00:00: 00 [facility] 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 H/O TIA (transient ischemic attack) and stroke Problem Common [facility] Nicotine dependence Cigarette nicotine dependence without complicati on Problem Common [facility] [id number] Acquired torticolli s Problem Common [facility] Asthma without status asthmaticu s Asthma, unspecifie d asthma severity, unspecifie d whether complicate d, unspecifie d whether persistent Problem Common [facility] [id number] Cervical radiculopa thy Problem Common [facility] [id number] Gastroesop hageal reflux disease without esophagiti s Problem Common [facility] [id number] Gingivitis Problem Comm on [facility] Osteoarthr osis, localized, secondary, involving lower leg Osteoarthr osis, localized, secondary, involving lower leg Problem Common [facility] [id number] Seasonal allergic rhinitis, unspecifie d trigger Problem Common [facility] Diabetes mellitus type 2 in nonobese Diabetes mellitus type 2 in nonobese Problem Common [facility] Lump Lump Problem Common [facility] [id number] Paroxysmal atrial fibrillati on Problem [facility] [id number] Morbid (severe) obesity due to excess calories Problem Common [facility] [id number] Abscess of vagina Problem Common [facility] Anemia Anemia Problem Common [facility] Edema Edema Problem Common [facility] Hypotensio n due to drugs Hypotensio n due to drugs Problem Common [facility] Hyperlipid emia Hyperlipid emia Problem Common [facility] [id number] Recurring cold staphyloco ccal abscesses Problem Common [facility] Gastroesop hageal reflux disease GERD (gastroeso phageal reflux disease) Problem Common [facility] [id number] Stress incontinen ce Problem Common [facility] Obstructiv e sleep apnea Obstructiv e sleep apnea Problem Common [facility] Type II diabetes mellitus without complicati on Controlled type 2 diabetes mellitus without complicati on, without long-term current use of insulin Problem Common [facility] Osteoarthr itis Osteoarthr itis Problem [facility] [id number] Decreased mobility Problem [facility] [id number] Hypertensi ve heart and chronic kidney disease without heart failure, with stage 1 through stage 4 chronic kidney disease, or unspecifie d chronic kidney disease Problem [facility] Long-term current use of anticoagul ant Anticoagul ated Problem [facility] [id number] Chronic kidney disease, stage 3a Problem [facility] Essential hypertensi on Elevated blood pressure reading with diagnosis of hypertensi on Problem [facility] [id number] Acute right-side d low back pain without sciatica Problem [facility] [id number] Dysuria Problem [facility] [id number] Thrombocyt openic Problem [facility] [id number] History of cholecyste ctomy Problem [facility] [id number] Atypical chest pain Problem [facility] Hypertensi on HTN (hypertens ion) Problem [facility] [id number] Facial pain Problem [facility] Morbid obesity Morbid obesity Problem [facility] [id number] Other chronic pain Problem [facility] [id number] Diverticul osis Problem [facility] Peripheral neuropathy Peripheral neuropathy Problem [facility] [id number] Proteus (mirabilis ) (morganii) as the cause of diseases classified elsewhere Problem [facility] [id number] Acute cystitis with hematuria Problem [facility] [id number] Pacemaker Problem Comm on [facility] Allergic rhinitis Non-season al allergic rhinitis, unspecifie d trigger Problem [facility] Acute exacerbati on of chronic obstructiv e airways disease Chronic obstructiv e pulmonary disease with acute exacerbati on Problem [facility] Thrombocyt openia Thrombocyt openia Problem [facility] [id number] Chronic fatigue Problem [facility] [id number] Chronic pain syndrome Problem [facility] [id number] Smoking greater than 30 pack years Problem [facility] Ileus, postoperat beckie Ileus, postoperat beckie Disease Resolve d 06-03 00:00: 00 2022-04-20 00:00:00 2022-04-20 14:25:31 [facility] Preoperati ve clearance Preoperati ve clearance Disease Resolve d 02-28 00:00: 00 2022-04-20 00:00:00 2022-04-20 14:25:15 [facility] Excessive or frequent menstruati on Excessive or frequent menstruati on Disease Resolve d 01-21 00:00: 00 2021-03-11 00:00:00 2021-03-11 18:46:20 [facility] Fibroids Fibroids Disease Resolve d 01-21 00:00: 00 2021-03-11 00:00:00 2021-03-11 18:46:27 [facility] Allergies, Adverse Reactions, Alerts Allergy Name Allergy Type Status Severity Reaction(s) Onset Date Inactive Date Treating Clinician Comments Source No Known Allergie s DA Active U 08-06 00:00: 00 [facility] No Known Allergie s DA Active U 08-06 00:00: 00 [facility] NO KNOWN ALLERGIE S Drug Class Active [facility] Family History Family Member Diagnosis Comments Start Date Stop Date Sourc e [facility] Maternal aunt Breast [facility] Hy[facility] Social History Social Habit Start Date Stop Date Quantity Comments Source Sex Assigned At [facility] Sexual orientation [facility] History of tobacco use Cigarette Smoker [facility] Alcoholic beverage intake 2024-09-24 00:00:00 2024-09-24 00:00:00 0 /d [facility] Cigarettes smoked current (pack per day) - Reported 2024-06-30 00:00:00 2024-06-30 00:00:00 [facility] Cigarette pack-years 2024-06-30 00:00:00 2024-06-30 00:00:00 [facility] Tobacco use and exposure 2024-06-30 00:00:00 2024-06-30 00:00:00 Smokeless tobacco non-user [facility] Alcohol intake 2024-03-25 00:00:00 2024-03-25 00:00:00 0 /d [facility] History of Social function 2024-03-11 00:00:00 2024-03-11 00:00:00 [facility] Exposure to SARS-CoV-2 (event) 2023-02-19 00:00:00 2023-03-01 12:51:00 Not sure [facility] Tobacco Comment 2022-10-30 00:00:00 2022-10-30 00:00:00 1 pack in 2 days [facility] Smoking Status Start Date Stop Date Source Current Smoker 2024-09-17 00:00:00 Common [facility] Medications Ordered Medication Name Filled Medication Name Start Date Stop Date Current Medication? Ordering Clinician Indication Dosage Frequency Signature (SIG) Comments Components Source nortriptyli ne 25 mg capsule 2023-11 00:00: 00 Yes [id number] 25mg TAKE 1 CAPSULE BY MOUTH EVERYDAY AT BEDTIME [facility] Ibuprofen 800 MG Ibuprofen 800 MG 2023-11 0 00:00: 00 No 1{table t_with_ food_or _milk} TID Ibuprofen 800 MG gentamicin 0.1 % ointment 07-10 00:00: 00 Yes [id number] Apply to area(s) daily. On ear wound until it heals. [facility] nortriptyli ne 25 mg capsule 07-08 00:00: 00 10-06 00:00 :00 No [id number] 25mg Take 1 capsule by mouth at bedtime. [facility] apixaban 2.5 mg tablet 30 10:46: 46 Yes 2.5mg Take 1 tablet by mouth in the morning. [facility] omeprazole 40 mg capsule 03-25 10:46: 46 Yes 40mg Take 1 capsule by mouth in the morning. [facility] nystatin-tr iamcinolone cream 03-17 00:00: 00 04-01 04:59 :00 No [id number] Apply to area(s) 3 (three) times daily for 14 days. [facility] albuterol-i pratropium (COMBIVENT INHALER) 18-103 mcg/actuati on inhaler 03-11 10:34: 33 Yes Inhale 4 (four) times daily. [facility] FLUTICASONE PROPIONATE (FLOVENT ROTADISK INHALE) 03-11 10:34: 33 Yes 2{puff} Inhale 2 Puffs as needed. [facility] aspirin 81 mg chewable tablet 03-11 10:34: 33 Yes 81mg Take 1 tablet by mouth in the morning. [facility] simvastatin (ZOCOR) 20 mg tablet 03-11 10:34: 33 Yes 20mg Take 1 tablet by mouth at bedtime. [facility] CARVEDILOL ORAL 03-11 10:34: 33 Yes 25mg Take 25 mg by mouth 2 (two) times daily. [facility] ferrous sulfate 325 mg (65 mg iron) tablet 03-11 10:34: 33 Yes 325mg Take 1 tablet by mouth in the morning. [facility] fluticasone furoate-giovanna anteroL 100-25 mcg/dose DsDv 03-11 10:34: 33 Yes Inhale. [facility] gabapentin 600 mg tablet 03-11 10:34: 33 Yes 600mg Take 1 tablet by mouth in the morning and 1 tablet at noon and 1 tablet in the evening. [facility] furosemide 80 mg tablet 03-11 10:34: 33 Yes 80mg Take 1 tablet by mouth in the morning and 1 tablet in the evening. [facility] rosuvastati n 10 mg tablet 03-11 10:34: 33 Yes 10mg Take 1 tablet by mouth in the morning. [facility] metformin ER 500 mg 24 hr tablet 03-11 10:34: 33 Yes 500mg Take 1 tablet by mouth in the morning. [facility] montelukast 10 mg tablet 03-11 10:34: 33 Yes 10mg Take 1 tablet by mouth in the morning. [facility] mupirocin 2 % ointment 03-11 10:34: 33 Yes 1{dose} Apply 1 Dose to area(s) as needed. [facility] mupirocin 2 % ointment 03-11 00:00: 00 Yes [id number] 1{dose} Apply to area(s) 3 (three) times daily. [facility] cyclobenzap rine 10 mg tablet 03-07 00:00: 00 06-30 00:00 :00 No TAKE 1 TABLET BY MOUTH EVERY 8 HOURS NEEDED FOR MUSCLE SPASM [facility] sodium chloride (NS) injection 03-08 13:21: 00 03-08 13:31 :55 No PRN, Starting on Ayala 03/08/23 at 0821, Until Ayala 03/08/23 at 0831, Routine, Intra-op [facility] neomycin-po lymyxin-dex amethasone (MAXITROL) 3.5 mg/g-10,000 unit/g-0.1 % ophthalmic ointment 03-08 13:21: 00 03-08 13:31 :55 No PRN, Starting on Ayala 03/08/23 at 0821, Until Ayala 03/08/23 at 0831, Routine, Intra-op [facility] gentamicin injection 03-08 13:21: 00 03-08 13:31 :55 No PRN, Starting on Ayala 03/08/23 at 0821, Until Ayala 03/08/23 at 0831, BHUPINDER, Intra-op [facility] dexamethaso ne (DECADRON PHOSPHATE) injection 03-08 13:21: 00 03-08 13:31 :55 No PRN, Starting on Ayala 03/08/23 at 0821, Until Ayala 03/08/23 at 0831, Routine, Intra-op [facility] ceFAZolin (ANCEF) injection 03-08 13:21: 00 03-08 13:31 :55 No PRN, Starting on Ayala 03/08/23 at 0821, Until Ayala 03/08/23 at 0831, BHUPINDER, Intra-op [facility] chondroitin sulf-sod hyaluronate (DUOVISC VISCO ELASTIC) intraocular injection 03-08 13:15: 00 03-08 13:31 :55 No PRN, Starting on Ayala 03/08/23 at 0815, Until Ayala 03/08/23 at 0831, Routine, Intra-op [facility] EPINEPHrine (PF) 1:1,000 (1 mg/mL) (ADRENALIN (PF)) injection 03-08 13:14: 00 03-08 13:31 :55 No PRN, Starting on Ayala 03/08/23 at 0814, Until Ayala 03/08/23 at 0831, Routine, Intra-op [facility] balanced salt soln no.2 irrig. (BSS) ophthalmic solution 03-08 13:14: 00 03-08 13:31 :55 No PRN, Starting on Ayala 03/08/23 at 0814, Until Ayala 03/08/23 at 0831, Routine, Intra-op [facility] water for irrigation irrigation solution 03-08 13:09: 00 03-08 13:31 :55 No PRN, Starting on Ayala 03/08/23 at 0809, Until Ayala 03/08/23 at 0831, Routine, Intra-op [facility] tetracaine (PONTOCAINE ) 0.5 % ophthalmic drops 03-08 13:06: 00 03-08 13:31 :55 No PRN, Starting on Ayala 03/08/23 at 0806, Until Ayala 03/08/23 at 0831, Routine, Intra-op [facility] eye block syringe 11 mL 03-08 13:06: 00 03-08 13:31 :55 No PRN, Starting on Ayala 03/08/23 at 0806, Until Ayala 03/08/23 at 0831, Intra-op [facility] cyclopent 1%-tropic 1%-phenyl 2.5%-ketor 0.5% (MYDRIATIC #5) ophthalmic solution syringe 0.5 mL 03-08 12:30: 00 03-08 12:26 :00 No .5mL 0.5 mL, Right Eye, ONCE, 1 dose, On Ayala 03/08/23 at 0730, Routine, DSU Pre-op [facility] lactated ringers IV infusion 1,000 mL 03-08 12:30: 00 03-08 12:26 :00 No 1000mL at 42 mL/hr, 1,000 mL, IV Infusion, ONCE, 1 dose, On Ayala 03/08/23 at 0730, Routine, DSU Pre-op [facility] ferrous sulfate 325 mg (65 mg iron) tablet 03-08 09:15: 26 Yes 325mg Take 1 tablet by mouth in the morning. [facility] apixaban 2.5 mg tablet 03-08 09:15: 26 Yes 2.5mg Take 1 tablet by mouth in the morning. [facility] fluticasone furoate-giovanna anteroL 100-25 mcg/dose DsDv 03-08 09:15: 26 Yes Inhale. [facility] gabapentin 600 mg tablet 03-08 09:15: 26 Yes 600mg Take 1 tablet by mouth in the morning and 1 tablet at noon and 1 tablet in the evening. [facility] furosemide 80 mg tablet 03-08 09:15: 26 Yes 80mg Take 1 tablet by mouth in the morning and 1 tablet in the evening. [facility] rosuvastati n 10 mg tablet 03-08 09:15: 26 Yes 10mg Take 1 tablet by mouth in the morning. [facility] omeprazole 40 mg capsule 03-08 09:15: 26 Yes 40mg Take 1 capsule by mouth in the morning. [facility] metformin ER 500 mg 24 hr tablet 03-08 09:15: 26 Yes 500mg Take 1 tablet by mouth in the morning. [facility] montelukast 10 mg tablet 03-08 09:15: 26 Yes 10mg Take 1 tablet by mouth in the morning. [facility] mupirocin 2 % ointment 03-08 09:15: 26 Yes 1{dose} Apply 1 Dose to area(s) as needed. [facility] Nitrofurant oin&Nit. Macrocryst 100 mg capsule 03-08 09:15: 26 06-30 00:00 :00 No 100mg Take 1 capsule by mouth in the morning and 1 capsule in the evening. [facility] albuterol-i pratropium (COMBIVENT INHALER) 18-103 mcg/actuati on inhaler 03-08 09:15: 25 Yes Inhale 4 (four) times daily. [facility] FLUTICASONE PROPIONATE (FLOVENT ROTADISK INHALE) 03-08 09:15: 25 Yes 2{puff} Inhale 2 Puffs as needed. [facility] propranolol (INDERAL) 40 mg tablet 03-08 09:15: 25 Yes 40mg Take 1 tablet by mouth in the morning. [facility] aspirin 81 mg chewable tablet 03-08 09:15: 25 Yes 81mg Take 1 tablet by mouth in the morning. [facility] simvastatin (ZOCOR) 20 mg tablet 03-08 09:15: 25 Yes 20mg Take 1 tablet by mouth at bedtime. [facility] CARVEDILOL ORAL 03-08 09:15: 25 Yes 25mg Take 25 mg by mouth 2 (two) times daily. [facility] ceFAZolin (ANCEF) injection 02-22 14:37: 00 02-22 14:44 :40 No PRN, Starting on Ayala 02/22/23 at 0937, Until Ayala 02/22/23 at 0944, BHUPINDER, Intra-op [facility] dexamethaso ne (DECADRON PHOSPHATE) injection 02-22 14:37: 00 02-22 14:44 :40 No PRN, Starting on Ayala 02/22/23 at 0937, Until Ayala 02/22/23 at 0944, Routine, Intra-op [facility] gentamicin injection 02-22 14:37: 00 02-22 14:44 :40 No PRN, Starting on Ayala 02/22/23 at 0937, Until Ayala 02/22/23 at 0944, BHUPINDER, Intra-op [facility] neomycin-po lymyxin-dex amethasone (MAXITROL) 3.5 mg/g-10,000 unit/g-0.1 % ophthalmic ointment 02-22 14:37: 00 02-22 14:44 :40 No PRN, Starting on Ayala 02/22/23 at 0937, Until Ayala 02/22/23 at 0944, Routine, Intra-op [facility] sodium chloride (NS) injection 02-22 14:37: 00 02-22 14:44 :40 No PRN, Starting on Ayala 02/22/23 at 0937, Until Ayala 02/22/23 at 0944, Routine, Intra-op [facility] chondroitin sulf-sod hyaluronate (DUOVISC VISCO ELASTIC) intraocular injection 02-22 14:32: 00 02-22 14:44 :40 No PRN, Starting on Ayala 02/22/23 at 0932, Until Ayala 02/22/23 at 0944, Routine, Intra-op [facility] EPINEPHrine (PF) 1:1,000 (1 mg/mL) (ADRENALIN (PF)) injection 02-22 14:31: 00 02-22 14:44 :40 No PRN, Starting on Ayala 02/22/23 at 0931, Until Ayala 02/22/23 at 0944, Routine, Intra-op [facility] balanced salt soln no.2 irrig. (BSS) ophthalmic solution 02-22 14:31: 00 02-22 14:44 :40 No PRN, Starting on Ayala 02/22/23 at 0931, Until Ayala 02/22/23 at 0944, Routine, Intra-op [facility] water for irrigation irrigation solution 02-22 14:25: 00 02-22 14:44 :40 No PRN, Starting on Ayala 02/22/23 at 0925, Until Ayala 02/22/23 at 09, Routine, Intra-op [facility] tetracaine (PONTOCAINE ) 0.5 % ophthalmic drops 02-22 14:22: 00 02-22 14:44 :40 No PRN, Starting on Ayala 02/22/23 at 0922, Until Ayala 02/22/23 at 0944, Routine, Intra-op [facility] eye block syringe 11 mL 02-22 14:22: 00 02-22 14:44 :40 No PRN, Starting on Ayala 02/22/23 at 0922, Until Ayala 02/22/23 at 0944, Intra-op [facility] cyclopent 1%-tropic 1%-phenyl 2.5%-ketor 0.5% (MYDRIATIC #5) ophthalmic solution syringe 0.5 mL 02-22 13:15: 00 02-22 13:12 :00 No .5mL 0.5 mL, Left Eye, ONCE, 1 dose, On Ayala 02/22/23 at 0815, Routine, DSU Pre-op [facility] lactated ringers IV infusion 1,000 mL 02-22 13:15: 00 02-22 13:27 :00 No 1000mL at 42 mL/hr, 1,000 mL, IV Infusion, ONCE, 1 dose, On Ayala 02/22/23 at 0815, Routine, DSU Pre-op [facility] metformin ER 500 mg 24 hr tablet 02-22 10:32: 49 Yes 500mg Take 1 tablet by mouth in the morning. [facility] montelukast 10 mg tablet 02-22 10:32: 49 Yes 10mg Take 1 tablet by mouth in the morning. [facility] mupirocin 2 % ointment 02-22 10:32: 49 Yes 1{dose} Apply 1 Dose to area(s) as needed. [facility] Nitrofurant oin&Nit. Macrocryst 100 mg capsule 02-22 10:32: 49 Yes 100mg Take 1 capsule by mouth in the morning and 1 capsule in the evening. [facility] albuterol-i pratropium (COMBIVENT INHALER) 18-103 mcg/actuati on inhaler 02-22 10:32: 49 Yes Inhale 4 (four) times daily. [facility] FLUTICASONE PROPIONATE (FLOVENT ROTADISK INHALE) 02-22 10:32: 49 Yes 2{puff} Inhale 2 Puffs as needed. [facility] propranolol (INDERAL) 40 mg tablet 02-22 10:32: 49 Yes 40mg Take 1 tablet by mouth in the morning. [facility] aspirin 81 mg chewable tablet 02-22 10:32: 49 Yes 81mg Take 1 tablet by mouth in the morning. [facility] simvastatin (ZOCOR) 20 mg tablet 02-22 10:32: 49 Yes 20mg Take 1 tablet by mouth at bedtime. [facility] CARVEDILOL ORAL 02-22 10:32: 49 Yes 25mg Take 25 mg by mouth 2 (two) times daily. [facility] ferrous sulfate 325 mg (65 mg iron) tablet 02-22 10:32: 49 Yes 325mg Take 1 tablet by mouth in the morning. [facility] apixaban 2.5 mg tablet 02-22 10:32: 49 Yes 2.5mg Take 1 tablet by mouth in the morning. [facility] fluticasone furoate-giovanna anteroL 100-25 mcg/dose DsDv 02-22 10:32: 49 Yes Inhale. [facility] gabapentin 600 mg tablet 02-22 10:32: 49 Yes 600mg Take 1 tablet by mouth in the morning and 1 tablet at noon and 1 tablet in the evening. [facility] furosemide 80 mg tablet 02-22 10:32: 49 Yes 80mg Take 1 tablet by mouth in the morning and 1 tablet in the evening. [facility] rosuvastati n 10 mg tablet 02-22 10:32: 49 Yes 10mg Take 1 tablet by mouth in the morning. [facility] omeprazole 40 mg capsule 02-22 10:32: 49 Yes 40mg Take 1 capsule by mouth in the morning. [facility] GABAPENTIN, BULK, MISC 02-22 09:45: 41 02-22 00:00 :00 No 600mg Take 600 mg in the morning and 600 mg at noon and 600 mg in the evening. [facility] losartan 100 mg tablet 14 00:00: 00 Yes 100mg Take 1 tablet by mouth in the morning. [facility] SYMBICORT 160-4.5 mcg/actuati on inhaler -11 00:00: 00 Yes 1{puff} Inhale 1 Puff in the morning. [facility] amiodarone 200 mg tablet 2021-11 2-24 00:00: 00 Yes 200mg Take 1 tablet by mouth in the morning. [facility] amLODIPine (NORVASC) 5 mg tablet 04-20 14:30: 51 04-20 00:00 :00 No 5mg Take 5 mg by mouth daily. [facility] amitriptyli ne (ELAVIL) 10 mg tablet 04-20 14:30: 42 04-20 00:00 :00 No 10mg Take 10 mg by mouth at bedtime. [facility] propranolol (INDERAL) 40 mg tablet 04-20 13:28: 01 Yes 40mg Take 40 mg by mouth daily. [facility] Lidocaine 5 % Lidocaine 5 % 01-26 00:00: 00 No QD Lidocaine 5 % Albuterol Sulfate (2.5 MG/3ML) 0.083% Albuterol Sulfate (2.5 MG/3ML) 0.083% 2020-11 00:00: 00 No 3{ml_as _needed } TID Albuterol Sulfate (2.5 MG/3ML) 0.083% albuterol-i pratropium (COMBIVENT INHALER) 18-103 mcg/actuati on inhaler 03-11 14:52: 21 Yes Inhale 4 (four) times daily. [facility] FLUTICASONE PROPIONATE (FLOVENT ROTADISK INHALE) 03-11 14:52: 21 Yes 2{puff} Inhale 2 Puffs as needed. [facility] Gabapentin, Bulk, 100 % Powd 03-11 14:52: 21 Yes 600mg 600 mg 3 (three) times daily. [facility] aspirin 81 mg chewable tablet 03-11 14:52: 21 Yes 81mg Take 81 mg by mouth daily. [facility] simvastatin (ZOCOR) 20 mg tablet 03-11 14:52: 21 Yes 20mg Take 20 mg by mouth at bedtime. [facility] CARVEDILOL ORAL 03-11 14:52: 21 Yes 25mg Take 25 mg by mouth 2 (two) times daily. [facility] ferrous sulfate 325 mg (65 mg iron) tablet 03-11 14:52: 21 Yes 325mg Take 325 mg by mouth daily. [facility] fluticasone -vilanterol (BREO ELLIPTA) 100-25 mcg/dose DsDv 03-11 14:52: 21 Yes Inhale. [facility] amoxicillin 500 mg capsule 4-14 00:00: 00 Yes [facility] HYDROcodone -acetaminop hen 10-325 mg tablet 407 00:00: 00 Yes 1{tbl} Take 1 tablet by mouth in the morning and 1 tablet at noon and 1 tablet in the evening. [facility] spironolact one 50 mg tablet 02-28 00:00: 00 Yes 50mg Take 1 tablet by mouth in the morning. [facility] spironolact one 25 mg tablet 02-28 00:00: 00 Yes 25mg Take 25 mg by mouth 2 (two) times daily. [facility] diazePAM 5 mg tablet 05-28 00:00: 00 04-20 00:00 :00 No [id number] 5mg Take 1 tablet by mouth 2 (two) times daily. May take both befor the MRI [facility] cyclobenzap rine 10 mg tablet 07-10 00:00: 00 04-20 00:00 :00 No [id number] 10mg Take 1 tablet by mouth 3 (three) times daily. [facility] methylPREDN ISolone (MEDROL, TIMOTHY,) 4 mg tablets 06-04 00:00: 00 04-20 00:00 :00 No [id number] Take by mouth SEE-INSTRU CTIONS. follow package directions [facility] levoFLOXaci n 500 mg tablet 2016-11 0 00:00: 00 04-20 00:00 :00 No [facility] penicillin v potassium 500 mg tablet 2016-11 030 00:00: 00 04-20 00:00 :00 No [facility] lidocaine 5 % ointment 2016-11 017 00:00: 00 Yes [facility] phenazopyri dine (PYRIDIUM) 100 mg tablet 8 00:00: 00 Yes 200mg Take 2 tablets by mouth 3 (three) times daily as needed (bladder pain). [facility] ibuprofen (MOTRIN) 800 mg tablet 2015-11 00:00: 00 Yes [facility] clindamycin (CLEOCIN) 150 mg capsule 2015-11 00:00: 00 04-20 00:00 :00 No TAKE 2 CAPSULES BY MOUTH EVERY 8 HOURS ( 3 TIMES A DAY) TAKE WITH FOOD AND DRINK PLENTY OF WATER [facility] tiZANidine (ZANAFLEX) 4 mg tablet 04-04 00:00: 00 Yes 4mg Take 1 tablet by mouth in the morning and 1 tablet in the evening. [facility] VOLTAREN 1 % gel 03-08 00:00: 00 Yes 1{dose} Apply 1 Dose to area(s) every evening. [facility] potassium chloride (K-DUR) 10 mEq CR tablet 03-08 00:00: 00 Yes 10meq Take 10 mEq by mouth daily. [facility] potassium chloride 20 mEq tablet 03-08 00:00: 00 07-08 00:00 :00 No 20meq Take 1 tablet by mouth in the morning. [facility] losartan (COZAAR) 100 mg tablet 03-08 00:00: 00 04-20 00:00 :00 No 100mg Take 100 mg by mouth daily. [facility] hydrochloro thiazide (ESIDRIX) 25 mg tablet 05-30 00:00: 00 Yes 25mg Take 1 Tab by mouth 2 (two) times daily. [facility] docusate calcium (SURFAK) 240 mg capsule 05-30 00:00: 00 04-20 00:00 :00 No 240mg Take 1 Cap by mouth 2 (two) times daily. [facility] Omeprazole 40 MG Omeprazole 40 MG No 1{capsu le} QD Omeprazole 40 MG Furosemide 80 MG Furosemide 80 MG No 1{table t} BID Furosemide 80 MG Combivent Respimat 20-100 MCG/ACT Combivent Respimat 20-100 MCG/ACT No 1{puff} QID Combivent Respimat 20-100 MCG/ACT Eliquis 5 MG Eliquis 5 MG No 1{table t} BID Eliquis 5 MG Cholestyram ine 4 GM Cholestyram ine 4 GM No Cholestyra mine 4 GM Montelukast Sodium 10 MG Montelukast Sodium 10 MG No 1{table t} QD Montelukas t Sodium 10 MG tiZANidine HCl 2 MG tiZANidine HCl 2 MG No 1{table t_at_be dtime_a s_neede d} QD tiZANidine HCl 2 MG Amiodarone HCl 200 MG Amiodarone HCl 200 MG No 1{table t} QD Amiodarone HCl 200 MG Ferrous Sulfate 325 (65 Fe) MG Ferrous Sulfate 325 (65 Fe) MG No 1{table t} QD Ferrous Sulfate 325 (65 Fe) MG Rosuvastati n Calcium 20 MG Rosuvastati n Calcium 20 MG No 1{table t} Rosuvastat in Calcium 20 MG Gabapentin 600 MG Gabapentin 600 MG No 1{table t} TID Gabapentin 600 MG Spironolact one 25 MG Spironolact one 25 MG No 1{table t} QD Spironolac tone 25 MG Coreg 12.5 MG Coreg 12.5 MG No 1{table t_with_ food} BID Coreg 12.5 MG Ipratropium -Albuterol 0.5-2.5 (3) MG/3ML Ipratropium -Albuterol 0.5-2.5 (3) MG/3ML No 3{ml_as _needed } QID Ipratropiu m-Albutero l 0.5-2.5 (3) MG/3ML Potassium Chloride Alexus ER 20 MEQ Potassium Chloride Alexus ER 20 MEQ No 1{table t_with_ food} QD Potassium Chloride Alexus ER 20 MEQ Nortriptyli ne HCl 25 MG Nortriptyli ne HCl 25 MG No 1{capsu le} QD Nortriptyl ine HCl 25 MG ProAir HFA 108 (90 Base) MCG/ACT ProAir HFA 108 (90 Base) MCG/ACT No 2{puffs _as_nee ded} QID ProAir HFA 108 (90 Base) MCG/ACT Immunizations Ordered Immunization Name Filled Immunization Name Date Status Comments Source Flucelvax - single dose syringe Flucelvax - single dose syringe 2022-09-18 12:24:00 Completed [facility] Flucelvax - single dose syringe Flucelvax - single dose syringe 2022-09-18 12:24:00 Completed [facility] Flucelvax - single dose syringe Flucelvax - single dose syringe 2022-09-18 12:24:00 Completed [facility] Flucelvax - single dose syringe Flucelvax - single dose syringe 2022-09-18 12:24:00 Completed [facility] Flucelvax - single dose syringe Flucelvax - single dose syringe 2022-09-18 12:24:00 Completed [facility] Flucelvax - single dose syringe Flucelvax - single dose syringe 2022-09-18 12:24:00 Completed [facility] Flucelvax - single dose syringe Flucelvax - single dose syringe 2022-09-18 12:24:00 Completed [facility] Flucelvax - single dose syringe Flucelvax - single dose syringe 2022-09-18 12:24:00 Completed [facility] Flucelvax - single dose syringe Flucelvax - single dose syringe 2022-09-18 12:24:00 Completed [facility] Flucelvax - single dose syringe Flucelvax - single dose syringe 2022-09-18 12:24:00 Completed [facility] Flucelvax - single dose syringe Flucelvax - single dose syringe 2022-09-18 12:24:00 Completed [facility] Influenza Virus Vaccine Quad IM, Preserv and ABX Free 6 MO-64 YRS (FLUCELVAX) 2022-08-07 00:00:00 Completed Pneumococcal 20 Conjugate, PCV20 (Prevnar 20) 2022-06-20 00:00:00 Completed Td Td 2022-04-10 11:44:00 Completed [facility] Td Td 2022-04-10 11:44:00 Completed [facility] Td Td 2022-04-10 11:44:00 Completed [facility] Td Td 2022-04-10 11:44:00 Completed [facility] Td Td 2022-04-10 11:44:00 Completed [facility] Td Td 2022-04-10 11:44:00 Completed [facility] Td Td 2022-04-10 11:44:00 Completed [facility] Td Td 2022-04-10 11:44:00 Completed [facility] Td Td 2022-04-10 11:44:00 Completed [facility] Td Td 2022-04-10 11:44:00 Completed [facility] Td Td 2022-04-10 11:44:00 Completed [facility] Td Td 2022-04-10 11:44:00 Completed [facility] Td Td 2022-04-10 11:44:00 Completed [facility] Td Td 2022-04-10 11:44:00 Completed [facility] Td Td 2022-04-10 11:44:00 Completed [facility] Influenza Virus Vaccine Quad IM, Preserv and ABX Free 6 MO-64 YRS (FLUCELVAX) 2022-02-20 00:00:00 Completed Moderna COVID-19 Vaccine (Low Dose Booster) Moderna COVID-19 Vaccine (Low Dose Booster) 2021-10-07 15:33:00 Completed [facility] Moderna COVID-19 Vaccine (Low Dose Booster) Moderna COVID-19 Vaccine (Low Dose Booster) 2021-10-07 15:33:00 Completed [facility] Moderna COVID-19 Vaccine (Low Dose Booster) Moderna COVID-19 Vaccine (Low Dose Booster) 2021-10-07 15:33:00 Completed [facility] Moderna COVID-19 Vaccine (Low Dose Booster) Moderna COVID-19 Vaccine (Low Dose Booster) 2021-10-07 15:33:00 Completed [facility] Moderna COVID-19 Vaccine (Low Dose Booster) Moderna COVID-19 Vaccine (Low Dose Booster) 2021-10-07 15:33:00 Completed [facility] Moderna COVID-19 Vaccine (Low Dose Booster) Moderna COVID-19 Vaccine (Low Dose Booster) 2021-10-07 15:33:00 Completed [facility] Moderna COVID-19 Vaccine (Low Dose Booster) Moderna COVID-19 Vaccine (Low Dose Booster) 2021-10-07 15:33:00 Completed [facility] Moderna COVID-19 Vaccine (Low Dose Booster) Moderna COVID-19 Vaccine (Low Dose Booster) 2021-10-07 15:33:00 Completed [facility] Moderna COVID-19 Vaccine (Low Dose Booster) Moderna COVID-19 Vaccine (Low Dose Booster) 2021-10-07 15:33:00 Completed [facility] Moderna COVID-19 Vaccine (Low Dose Booster) Moderna COVID-19 Vaccine (Low Dose Booster) 2021-10-07 15:33:00 Completed [facility] Moderna COVID-19 Vaccine (Low Dose Booster) Moderna COVID-19 Vaccine (Low Dose Booster) 2021-10-07 15:33:00 Completed [facility] Moderna COVID-19 Vaccine (Low Dose Booster) Moderna COVID-19 Vaccine (Low Dose Booster) 2021-10-07 15:33:00 Completed [facility] Moderna COVID-19 Vaccine (Low Dose Booster) Moderna COVID-19 Vaccine (Low Dose Booster) 2021-10-07 15:33:00 Completed [facility] Moderna COVID-19 Vaccine (Low Dose Booster) Moderna COVID-19 Vaccine (Low Dose Booster) 2021-10-07 15:33:00 Completed [facility] Moderna COVID-19 Vaccine (Low Dose Booster) Moderna COVID-19 Vaccine (Low Dose Booster) 2021-10-07 15:33:00 Completed [facility] Moderna COVID-19 Vaccine (Low Dose Booster) Moderna COVID-19 Vaccine (Low Dose Booster) 2021-10-07 15:33:00 Completed [facility] [place] COVID-19 Vaccine (Low Dose Booster) Moderna COVID-19 Vaccine (Low Dose Booster) 2021-10-07 15:33:00 Completed [facility] COVID-19 Vaccine (Low Dose Booster) Moderna COVID-19 Vaccine (Low Dose Booster) 2021-10-07 15:33:00 Completed [facility] A[facility] 2021-10-07 13:58:00 Completed [facility] Afluria 2021-10-07 13:58:00 Completed [facility] Afluria 2021-10-07 13:58:00 Completed [facility] Afluria 2021-10-07 13:58:00 Completed [facility] Afluria 2021-10-07 13:58:00 Completed [facility] Afluria 2021-10-07 13:58:00 Completed [facility] Afluria 2021-10-07 13:58:00 Completed [facility] Afluria 2021-10-07 13:58:00 Completed [facility] Afl[facility] 2021-10-07 13:58:00 Completed [facility] Afluria 2021-10-07 13:58:00 Completed [facility] Afluria 2021-10-07 13:58:00 Completed [facility] Afluria 2021-10-07 13:58:00 Completed [facility] Afluria 2021-10-07 13:58:00 Completed [facility] Afluria 2021-10-07 13:58:00 Completed [facility] Afluria 2021-10-07 13:58:00 Completed [facility] Afluria 2021-10-07 13:58:00 Completed [facility] Afluria Afluria 2021-10-07 13:58:00 Completed [facility] Afluria Afluria 2021-10-07 13:58:00 Completed [facility] Influenza Virus Vaccine Quad IM, Preserv and ABX Free 6 MO-64 YRS (FLUCELVAX) 2021-09-15 00:00:00 Completed SARS-COV-2 COVID-19 PFIZER VACCINE 2021-08-22 00:00:00 Completed SARS-COV-2 COVID-19 MODERNA 12+ YRS VACCINE 2021-01-30 00:00:00 Completed [facility] SARS-COV-2 COVID-19 MODERNA 12+ YRS VACCINE 2021-01-30 00:00:00 Completed [facility] SARS-COV-2 COVID-19 MODERNA 12+ YRS VACCINE 2021-01-30 00:00:00 Completed [facility] SARS-COV-2 COVID-19 MODERNA 12+ YRS VACCINE 2021-01-30 00:00:00 Completed [facility] SARS-COV-2 COVID-19 MODERNA 12+ YRS VACCINE 2021-01-30 00:00:00 Completed [facility] SARS-COV-2 COVID-19 MODERNA 12+ YRS VACCINE 2021-01-30 00:00:00 Completed [facility] SARS-COV-2 COVID-19 MODERNA VACCINE 2021-01-30 00:00:00 Completed [facility] SARS-COV-2 COVID-19 MODERNA VACCINE 2021-01-30 00:00:00 Completed [facility] SARS-COV-2 COVID-19 MODERNA VACCINE 2021-01-30 00:00:00 Completed [facility] SARS-COV-2 COVID-19 MODERNA 12+ YRS VACCINE 2021-01-30 00:00:00 Completed [facility] SARS-COV-2 COVID-19 MODERNA 12+ YRS VACCINE 2021-01-30 00:00:00 Completed [facility] SARS-COV-2 COVID-19 MODERNA 12+ YRS VACCINE 2021-01-30 00:00:00 Completed [facility] SARS-COV-2 COVID-19 MODERNA 12+ YRS VACCINE 2021-01-02 00:00:00 Completed [facility] SARS-COV-2 COVID-19 MODERNA 12+ YRS VACCINE 2021-01-02 00:00:00 Completed [facility] SARS-COV-2 COVID-19 MODERNA 12+ YRS VACCINE 2021-01-02 00:00:00 Completed [facility] SARS-COV-2 COVID-19 MODERNA 12+ YRS VACCINE 2021-01-02 00:00:00 Completed [facility] SARS-COV-2 COVID-19 MODERNA 12+ YRS VACCINE 2021-01-02 00:00:00 Completed [facility] SARS-COV-2 COVID-19 MODERNA 12+ YRS VACCINE 2021-01-02 00:00:00 Completed [facility] SARS-COV-2 COVID-19 MODERNA VACCINE 2021-01-02 00:00:00 Completed [facility] SARS-COV-2 COVID-19 MODERNA VACCINE 2021-01-02 00:00:00 Completed [facility] SARS-COV-2 COVID-19 MODERNA VACCINE 2021-01-02 00:00:00 Completed [facility] SARS-COV-2 COVID-19 MODERNA 12+ YRS VACCINE 2021-01-02 00:00:00 Completed [facility] SARS-COV-2 COVID-19 MODERNA 12+ YRS VACCINE 2021-01-02 00:00:00 Completed [facility] SARS-COV-2 COVID-19 MODERNA 12+ YRS VACCINE 2021-01-02 00:00:00 Completed [facility] single dose Afluria single dose 2020-09-06 12:04:00 Completed [facility] Afluria single dose Afluria single dose 2020-09-06 12:04:00 Completed [facility] Afluria single dose Afluria single dose 2020-09-06 12:04:00 Completed [facility] Afluria single dose Afluria single dose 2020-09-06 12:04:00 Completed [facility] Afluria single dose Afluria single dose 2020-09-06 12:04:00 Completed [facility] Afluria single dose Afluria single dose 2020-09-06 12:04:00 Completed [facility] Afluria single dose Afluria single dose 2020-09-06 12:04:00 Completed [facility] Afluria single dose Afluria single dose 2020-09-06 12:04:00 Completed [facility] Afluria single dose Afluria single dose 2020-09-06 12:04:00 Completed [facility] Afluria single dose Afluria single dose 2020-09-06 12:04:00 Completed [facility] Afluria single dose Afluria single dose 2020-09-06 12:04:00 Completed [facility] Afluria single dose Afluria single dose 2020-09-06 12:04:00 Completed [facility] Afluria single dose Afluria single dose 2020-09-06 12:04:00 Completed [facility] Afluria single dose Afluria single dose 2020-09-06 12:04:00 Completed [facility] Afluria single dose Afluria single dose 2020-09-06 12:04:00 Completed [facility] Afluria single dose Afluria single dose 2020-09-06 12:04:00 Completed [facility] Afluria single dose Afluria single dose 2020-09-06 12:04:00 Completed [facility] Afluria single dose Afluria single dose 2020-09-06 12:04:00 Completed [facility] Afluria single dose Afluria single dose 2020-09-06 12:04:00 Completed [facility] Influenza Virus Vaccine Quad .5 mL IM 6+ MO (FLUZONE/FLULAVAL/F LUARIX) 2020-01-29 00:00:00 Completed [facility] single dose Afluria single dose 2019-08-21 15:26:00 Completed [facility] Afluria single dose Afluria single dose 2019-08-21 15:26:00 Completed [facility] Afluria single dose Afluria single dose 2019-08-21 15:26:00 Completed [facility] Afluria single dose Afluria single dose 2019-08-21 15:26:00 Completed [facility] Afluria single dose Afluria single dose 2019-08-21 15:26:00 Completed [facility] Afluria single dose Afluria single dose 2019-08-21 15:26:00 Completed [facility] Afluria single dose Afluria single dose 2019-08-21 15:26:00 Completed [facility] Afluria single dose Afluria single dose 2019-08-21 15:26:00 Completed [facility] Afluria single dose Afluria single dose 2019-08-21 15:26:00 Completed [facility] Afluria single dose Afluria single dose 2019-08-21 15:26:00 Completed [facility] Afluria single dose Afluria single dose 2019-08-21 15:26:00 Completed [facility] Afluria single dose Afluria single dose 2019-08-21 15:26:00 Completed [facility] Afluria single dose Afluria single dose 2019-08-21 15:26:00 Completed [facility] Afluria single dose Afluria single dose 2019-08-21 15:26:00 Completed [facility] Afluria single dose Afluria single dose 2019-08-21 15:26:00 Completed [facility] Afluria single dose Afluria single dose 2019-08-21 15:26:00 Completed [facility] Afluria single dose Afluria single dose 2019-08-21 15:26:00 Completed [facility] Afluria single dose Afluria single dose 2019-08-21 15:26:00 Completed [facility] Afluria single dose Afluria single dose 2019-08-21 15:26:00 Completed [facility] Fluarix (IIV4) - SDS - 0.5mL Fluarix (IIV4) - SDS - 0.5mL 2019-08-21 00:00:00 Completed [facility] Afluria 2018-09-20 10:06:00 Completed [facility] Afluria 2018-09-20 10:06:00 Completed [facility] Afluria 2018-09-20 10:06:00 Completed [facility] Afluria 2018-09-20 10:06:00 Completed [facility] Afluria 2018-09-20 10:06:00 Completed [facility] Afluria 2018-09-20 10:06:00 Completed [facility] Afluria 2018-09-20 10:06:00 [facility]fl[facility] Afluria 2018-09-20 10:06:00 Completed [facility] Afl[facility] Afluria 2018-09-20 10:06:00 [facility]pleted [facility] Afluria Afluria 2018-09-20 10:06:00 Completed [facility] Afluria 2018-09-20 10:06:00 Completed [facility] Afluria Afluria 2018-09-20 10:06:00 [facility]pleted [facility] Afluria 2018-09-20 10:06:00 [facility]pleted [facility]fl[facility] Afluria 2018-09-20 10:06:00 Completed [facility] Afluria 2018-09-20 10:06:00 Completed [facility] Afluria 2018-09-20 10:06:00 Completed [facility] Afluria 2018-09-20 10:06:00 Completed [facility] Afluria 2018-09-20 10:06:00 Completed [facility]fl[facility] Afluria 2018-09-20 10:06:00 Completed [facility] Pneumococcal Polysaccharide, PPSV23 (PNEUMOVAX) 2013-06-06 00:00:00 Completed [facility] Pneumococcal Polysaccharide, PPSV23 (PNEUMOVAX) 2013-06-06 00:00:00 Completed [facility] Pneumococcal Polysaccharide, PPSV23 (PNEUMOVAX) 2013-06-06 00:00:00 Completed [facility] Pneumococcal Polysaccharide, PPSV23 (PNEUMOVAX) 2013-06-06 00:00:00 Completed [facility] Pneumococcal Polysaccharide, PPSV23 (PNEUMOVAX) 2013-06-06 00:00:00 Completed [facility] Pneumococcal Polysaccharide, PPSV23 (PNEUMOVAX) 2013-06-06 00:00:00 Completed [facility] Pneumococcal Polysaccharide, PPSV23 (PNEUMOVAX) 2013-06-06 00:00:00 Completed [facility] Pneumococcal Polysaccharide, PPSV23 (PNEUMOVAX) 2013-06-06 00:00:00 Completed [facility] Pneumococcal Polysaccharide, PPSV23 (PNEUMOVAX) 2013-06-06 00:00:00 Completed [facility] Pneumococcal Polysaccharide, PPSV23 (PNEUMOVAX) 2013-06-06 00:00:00 Completed [facility] Pneumococcal Polysaccharide, PPSV23 (PNEUMOVAX) 2013-06-06 00:00:00 Completed [facility] Pneumococcal Polysaccharide, PPSV23 (PNEUMOVAX) 2013-06-06 00:00:00 Completed [facility] Pneumococcal Polysaccharide, PPSV23 (PNEUMOVAX) Unknown Completed [facility] Pneumococcal 20 Conjugate, PCV20 (Prevnar 20) Unknown Completed [facility] Influenza Virus Vaccine Quad .5 mL IM 6+ MO (FLUZONE/FLULAVAL/F LUARIX) Unknown Completed [facility] SARS-COV-2 COVID-19 PFIZER VACCINE Unknown Completed [facility] SARS-COV-2 COVID-19 MODERNA 12+ YRS VACCINE Unknown Completed [facility] Influenza Virus Vaccine Quad IM, Preserv and ABX Free 6 MO-64 YRS (FLUCELVAX) Unknown Completed [facility] Pneumococcal Polysaccharide, PPSV23 (PNEUMOVAX) Unknown Completed [facility] SARS-COV-2 COVID-19 MODERNA 12+ YRS VACCINE Unknown Completed [facility] Pneumococcal 20 Conjugate, PCV20 (Prevnar 20) Unknown Completed [facility] Influenza Virus Vaccine Quad .5 mL IM 6+ MO (FLUZONE/FLULAVAL/F LUARIX) Unknown Completed [facility] Influenza Virus Vaccine Quad IM, Preserv and ABX Free 6 MO-64 YRS (FLUCELVAX) Unknown Completed [facility] SARS-COV-2 COVID-19 PFIZER VACCINE Unknown Completed [facility] Pneumococcal Polysaccharide, PPSV23 (PNEUMOVAX) Unknown Completed [facility] Pneumococcal 20 Conjugate, PCV20 (Prevnar 20) Unknown Completed [facility] Influenza Virus Vaccine Quad .5 mL IM 6+ MO (FLUZONE/FLULAVAL/F LUARIX) Unknown Completed [facility] SARS-COV-2 COVID-19 PFIZER VACCINE Unknown Completed [facility] SARS-COV-2 COVID-19 MODERNA 12+ YRS VACCINE Unknown Completed [facility] Influenza Virus Vaccine Quad IM, Preserv and ABX Free 6 MO-64 YRS (FLUCELVAX) Unknown Completed [facility] Pneumococcal Polysaccharide, PPSV23 (PNEUMOVAX) Unknown Completed [facility] SARS-COV-2 COVID-19 MODERNA 12+ YRS VACCINE Unknown Completed [facility] Pneumococcal 20 Conjugate, PCV20 (Prevnar 20) Unknown Completed [facility] Influenza Virus Vaccine Quad .5 mL IM 6+ MO (FLUZONE/FLULAVAL/F LUARIX) Unknown Completed [facility] Influenza Virus Vaccine Quad IM, Preserv and ABX Free 6 MO-64 YRS (FLUCELVAX) Unknown Completed [facility] SARS-COV-2 COVID-19 PFIZER VACCINE Unknown Completed [facility] Pneumococcal Polysaccharide, PPSV23 (PNEUMOVAX) Unknown Completed [facility] SARS-COV-2 COVID-19 MODERNA 12+ YRS VACCINE Unknown Completed [facility] Pneumococcal 20 Conjugate, PCV20 (Prevnar 20) Unknown Completed [facility] Influenza Virus Vaccine Quad .5 mL IM 6+ MO (FLUZONE/FLULAVAL/F LUARIX) Unknown Completed [facility] Influenza Virus Vaccine Quad IM, Preserv and ABX Free 6 MO-64 YRS (FLUCELVAX) Unknown Completed [facility] SARS-COV-2 COVID-19 PFIZER VACCINE Unknown Completed [facility] Pneumococcal Polysaccharide, PPSV23 (PNEUMOVAX) Unknown Completed [facility] SARS-COV-2 COVID-19 MODERNA 12+ YRS VACCINE Unknown Completed [facility] Pneumococcal 20 Conjugate, PCV20 (Prevnar 20) Unknown Completed [facility] Influenza Virus Vaccine Quad .5 mL IM 6+ MO (FLUZONE/FLULAVAL/F LUARIX) Unknown Completed [facility] Influenza Virus Vaccine Quad IM, Preserv and ABX Free 6 MO-64 YRS (FLUCELVAX) Unknown Completed [facility] SARS-COV-2 COVID-19 PFIZER VACCINE Unknown Completed [facility] Pneumococcal Polysaccharide, PPSV23 (PNEUMOVAX) Unknown Completed [facility] SARS-COV-2 COVID-19 MODERNA 12+ YRS VACCINE Unknown Completed [facility] Pneumococcal 20 Conjugate, PCV20 (Prevnar 20) Unknown Completed [facility] Influenza Virus Vaccine Quad .5 mL IM 6+ MO (FLUZONE/FLULAVAL/F LUARIX) Unknown Completed [facility] Influenza Virus Vaccine Quad IM, Preserv and ABX Free 6 MO-64 YRS (FLUCELVAX) Unknown Completed [facility] SARS-COV-2 COVID-19 PFIZER VACCINE Unknown Completed [facility] Pneumococcal Polysaccharide, PPSV23 (PNEUMOVAX) Unknown Completed [facility] SARS-COV-2 COVID-19 MODERNA 12+ YRS VACCINE Unknown Completed [facility] Pneumococcal 20 Conjugate, PCV20 (Prevnar 20) Unknown Completed [facility] Influenza Virus Vaccine Quad .5 mL IM 6+ MO (FLUZONE/FLULAVAL/F LUARIX) Unknown Completed [facility] Influenza Virus Vaccine Quad IM, Preserv and ABX Free 6 MO-64 YRS (FLUCELVAX) Unknown Completed [facility] SARS-COV-2 COVID-19 PFIZER VACCINE Unknown Completed [facility] Pneumococcal Polysaccharide, PPSV23 (PNEUMOVAX) Unknown Completed [facility] SARS-COV-2 COVID-19 MODERNA 12+ YRS VACCINE Unknown Completed [facility] Pneumococcal 20 Conjugate, PCV20 (Prevnar 20) Unknown Completed [facility] Influenza Virus Vaccine Quad .5 mL IM 6+ MO (FLUZONE/FLULAVAL/F LUARIX) Unknown Completed [facility] Influenza Virus Vaccine Quad IM, Preserv and ABX Free 6 MO-64 YRS (FLUCELVAX) Unknown Completed [facility] SARS-COV-2 COVID-19 PFIZER VACCINE Unknown Completed [facility] Moderna COVID-19 Vaccine (Low Dose Booster) Moderna COVID-19 Vaccine (Low Dose Booster) Unknown Completed [facility] Afluria single dose Afluria single dose Unknown Completed [facility] Afluria Afluria Unknown Completed [facility] Flucelvax - single dose syringe Flucelvax - single dose syringe Unknown Completed [facility] Td Td Unknown Completed [facility] Moderna COVID-19 Vaccine (Low Dose Booster) Moderna COVID-19 Vaccine (Low Dose Booster) Unknown Completed [facility] Afluria single dose Afluria single dose Unknown Completed [facility] Afluria Afluria Unknown Completed [facility] Flucelvax - single dose syringe Flucelvax - single dose syringe Unknown Completed [facility] Td Td Unknown Completed [facility] Moderna COVID-19 Vaccine (Low Dose Booster) Moderna COVID-19 Vaccine (Low Dose Booster) Unknown Completed [facility] Afluria single dose Afluria single dose Unknown Completed [facility] Afluria Afluria Unknown Completed [facility] Flucelvax - single dose syringe Flucelvax - single dose syringe Unknown Completed [facility] Td Td Unknown Completed [facility] Moderna COVID-19 Vaccine (Low Dose Booster) Moderna COVID-19 Vaccine (Low Dose Booster) Unknown Completed [facility] Afluria single dose Afluria single dose Unknown Completed [facility] Afluria Afluria Unknown Completed [facility] Flucelvax - single dose syringe Flucelvax - single dose syringe Unknown Completed [facility] Td Td Unknown Completed [facility] Moderna COVID-19 Vaccine (Low Dose Booster) Moderna COVID-19 Vaccine (Low Dose Booster) Unknown Completed [facility] Afluria single dose Afluria single dose Unknown Completed [facility] Afluria Afluria Unknown Completed [facility] Flucelvax - single dose syringe Flucelvax - single dose syringe Unknown Completed [facility] Td Td Unknown Completed [facility] Moderna COVID-19 Vaccine (Low Dose Booster) Moderna COVID-19 Vaccine (Low Dose Booster) Unknown Completed [facility] Afluria single dose Afluria single dose Unknown Completed [facility] Afluria Afluria Unknown Completed [facility] Flucelvax - single dose syringe Flucelvax - single dose syringe Unknown Completed [facility] Td Td [facility] Moderna COVID-19 Vaccine (Low Dose Booster) Unknown Completed [facility] Afluria single dose Afluria single dose Unknown Completed [facility] Afluria Afluria Unknown Completed [facility] Flucelvax - single dose syringe Flucelvax - single dose syringe Unknown Completed [facility] Td Td Unknown Completed [facility] Moderna COVID-19 Vaccine (Low Dose Booster) Moderna COVID-19 Vaccine (Low Dose Booster) Unknown Completed [facility] Afluria single dose Afluria single dose Unknown Completed [facility] Afluria Afluria Unknown Completed [facility] Flucelvax - single dose syringe Flucelvax - single dose syringe Unknown Completed [facility] Td Td Unknown [facility] (Low Dose Booster) Moderna COVID-19 Vaccine (Low Dose Booster) Unknown Completed [facility] Afluria single dose Afluria single dose Unknown Completed [facility] Afluria Afluria Unknown Completed [facility] Flucelvax - single dose syringe Flucelvax - single dose syringe Unknown Completed [facility] Td Td Unknown Completed [facility] Moderna COVID-19 Vaccine (Low Dose Booster) Moderna COVID-19 Vaccine (Low Dose Booster) Unknown Completed [facility] Afluria single dose Afluria single dose Unknown Completed [facility] Afluria Afluria Unknown Completed [facility] Flucelvax - single dose syringe Flucelvax - single dose syringe Unknown Completed [facility] Td Td Unknown Completed [facility] Moderna COVID-19 Vaccine (Low Dose Booster) Moderna COVID-19 Vaccine (Low Dose Booster) Unknown Completed [facility] Afluria single dose Afluria single dose Unknown Completed [facility] Afluria Afluria Unknown Completed [facility] Flucelvax - single dose syringe Flucelvax - single dose syringe Unknown Completed [facility] Td Td Unknown Completed [facility] Moderna COVID-19 Vaccine (Low Dose Booster) Moderna COVID-19 Vaccine (Low Dose Booster) Unknown Completed [facility] Afluria (IIV4) - 3 years and older - SDS - 0.5mL Afluria (IIV4) - 3 years and older - SDS - 0.5mL Unknown Completed [facility] Afluria Afluria Unknown Completed [facility] Flucelvax (ccIIV4) - SDS - 0.5mL Flucelvax (ccIIV4) - SDS - 0.5mL Unknown Completed [facility] Td Td Unknown Completed [facility] Moderna COVID-19 Vaccine (Low Dose Booster) Moderna COVID-19 Vaccine (Low Dose Booster) Unknown Completed [facility] Afluria (IIV4) - 3 years and older - SDS - 0.5mL Afluria (IIV4) - 3 years and older - SDS - 0.5mL Unknown Completed [facility] Afluria Afluria Unknown Completed [facility] Flucelvax (ccIIV4) - SDS - 0.5mL Flucelvax (ccIIV4) - SDS - 0.5mL Unknown Completed [facility] Td Td Unknown Completed [facility] Moderna COVID-19 Vaccine (Low Dose Booster) Moderna COVID-19 Vaccine (Low Dose Booster) Unknown Completed [facility] Afluria (IIV4) - 3 years and older - SDS - 0.5mL Afluria (IIV4) - 3 years and older - SDS - 0.5mL Unknown Completed [facility] Afluria Afluria Unknown Completed [facility] Flucelvax (ccIIV4) - SDS - 0.5mL Flucelvax (ccIIV4) - SDS - 0.5mL Unknown Completed [facility] Td Td Unknown [facility] (Low Dose Booster) Moderna COVID-19 Vaccine (Low Dose Booster) Unknown Completed [facility] Afluria (IIV4) - 3 years and older - SDS - 0.5mL Afluria (IIV4) - 3 years and older - SDS - 0.5mL Unknown Completed [facility] Afluria Afluria Unknown Completed [facility] Flucelvax (ccIIV4) - SDS - 0.5mL Flucelvax (ccIIV4) - SDS - 0.5mL Unknown Completed [facility] Td Td Unknown Completed [facility] Moderna COVID-19 Vaccine (Low Dose Booster) Moderna COVID-19 Vaccine (Low Dose Booster) Unknown Completed [facility] Afluria (IIV4) - 3 years and older - SDS - 0.5mL Afluria (IIV4) - 3 years and older - SDS - 0.5mL Unknown Completed [facility] Afluria Afluria Unknown Completed [facility] Flucelvax (ccIIV4) - SDS - 0.5mL Flucelvax (ccIIV4) - SDS - 0.5mL Unknown Completed [facility] Td Td Unknown [facility] Vaccine (Low Dose Booster) Moderna COVID-19 Vaccine (Low Dose Booster) Unknown Completed [facility] Afluria (IIV4) - 3 years and older - SDS - 0.5mL Afluria (IIV4) - 3 years and older - SDS - 0.5mL Unknown Completed [facility] Afluria Afluria Unknown Completed [facility] Flucelvax (ccIIV4) - SDS - 0.5mL Flucelvax (ccIIV4) - SDS - 0.5mL Unknown Completed [facility] Td Td Unknown Completed [facility] Moderna COVID-19 Vaccine (Low Dose Booster) Moderna COVID-19 Vaccine (Low Dose Booster) Unknown Completed [facility] Afluria (IIV4) - 3 years and older - SDS - 0.5mL Afluria (IIV4) - 3 years and older - SDS - 0.5mL Unknown Completed [facility] Afluria Afluria Unknown Completed [facility] Flucelvax (ccIIV4) - SDS - 0.5mL Flucelvax (ccIIV4) - SDS - 0.5mL Unknown Completed [facility] Td Td Unknown [facility] Vaccine (Low Dose Booster) Moderna COVID-19 Vaccine (Low Dose Booster) Unknown Completed [facility] Afluria (IIV4) - 3 years and older - SDS - 0.5mL Afluria (IIV4) - 3 years and older - SDS - 0.5mL Unknown Completed [facility] Afluria Afluria Unknown Completed [facility] Flucelvax (ccIIV4) - SDS - 0.5mL Flucelvax (ccIIV4) - SDS - 0.5mL Unknown Completed [facility] Td Td Unknown Completed [facility] Moderna COVID-19 Vaccine (Low Dose Booster) Moderna COVID-19 Vaccine (Low Dose Booster) Unknown Completed [facility] Afluria (IIV4) - 3 years and older - SDS - 0.5mL Afluria (IIV4) - 3 years and older - SDS - 0.5mL Unknown Completed [facility] Afluria Afluria Unknown Completed [facility] Flucelvax (ccIIV4) - SDS - 0.5mL Flucelvax (ccIIV4) - SDS - 0.5mL Unknown Completed [facility] Td Td Unknown [facility] Vaccine (Low Dose Booster) Moderna COVID-19 Vaccine (Low Dose Booster) Unknown Completed [facility] Afluria (IIV4) - 3 years and older - SDS - 0.5mL Afluria (IIV4) - 3 years and older - SDS - 0.5mL Unknown Completed [facility] Afluria Afluria Unknown Completed [facility] Flucelvax (ccIIV4) - SDS - 0.5mL Flucelvax (ccIIV4) - SDS - 0.5mL Unknown Completed [facility] Td Td [facility] Moderna COVID-19 Vaccine (Low Dose Booster) Unknown Completed [facility] Afluria (IIV4) - 3 years and older - SDS - 0.5mL Afluria (IIV4) - 3 years and older - SDS - 0.5mL Unknown Completed [facility] Afluria Afluria Unknown Completed [facility] Flucelvax (ccIIV4) - SDS - 0.5mL Flucelvax (ccIIV4) - SDS - 0.5mL Unknown Completed [facility] Td Td Unknown Completed [facility] MODERNA COVID-19 VACCINE (LOW DOSE BOOSTER) MODERNA COVID-19 VACCINE (LOW DOSE BOOSTER) Unknown Completed [facility] Afluria (IIV4) - 3 years and older - SDS - 0.5mL Afluria (IIV4) - 3 years and older - SDS - 0.5mL Unknown Completed [facility] Afluria Afluria Unknown Completed [facility] Flucelvax (ccIIV4) - SDS - 0.5mL Flucelvax (ccIIV4) - SDS - 0.5mL Unknown Completed [facility] T[facility] Td [facility] MODERNA COVID-19 VACCINE (LOW DOSE BOOSTER) Unknown Completed [facility] Afluria (IIV4) - 3 years and older - SDS - 0.5mL Afluria (IIV4) - 3 years and older - SDS - 0.5mL Unknown Completed [facility] Afluria Afluria Unknown Completed [facility] Flucelvax (ccIIV4) - SDS - 0.5mL Flucelvax (ccIIV4) - SDS - 0.5mL Unknown Completed [facility] Td Td Unknown Completed [facility] MODERNA COVID-19 VACCINE (LOW DOSE BOOSTER) MODERNA COVID-19 VACCINE (LOW DOSE BOOSTER) Unknown Completed [facility] Afluria (IIV4) - 3 years and older - SDS - 0.5mL Afluria (IIV4) - 3 years and older - SDS - 0.5mL Unknown Completed [facility] Afluria Afluria Unknown Completed [facility] Flucelvax (ccIIV4) - SDS - 0.5mL Flucelvax (ccIIV4) - SDS - 0.5mL Unknown Completed [facility] Td Td Unknown Completed [facility] MODERNA COVID-19 VACCINE (LOW DOSE BOOSTER) MODERNA COVID-19 VACCINE (LOW DOSE BOOSTER) Unknown Completed [facility] Afluria (IIV4) - 3 years and older - SDS - 0.5mL Afluria (IIV4) - 3 years and older - SDS - 0.5mL Unknown Completed [facility] Afluria Afluria Unknown Completed [facility] Flucelvax (ccIIV4) - SDS - 0.5mL Flucelvax (ccIIV4) - SDS - 0.5mL Unknown Completed [facility] Td Td Unknown Completed [facility] MODERNA COVID-19 VACCINE (LOW DOSE BOOSTER) MODERNA COVID-19 VACCINE (LOW DOSE BOOSTER) Unknown Completed [facility] Afluria (IIV4) - 3 years and older - SDS - 0.5mL Afluria (IIV4) - 3 years and older - SDS - 0.5mL Unknown Completed [facility] Afluria Afluria Unknown Completed [facility] Flucelvax (ccIIV4) - SDS - 0.5mL Flucelvax (ccIIV4) - SDS - 0.5mL Unknown Completed [facility] Td Td Unknown [facility]LOW DOSE BOOSTER) MODERNA COVID-19 VACCINE (LOW DOSE BOOSTER) Unknown Completed [facility] Afluria (IIV4) - 3 years and older - SDS - 0.5mL Afluria (IIV4) - 3 years and older - SDS - 0.5mL Unknown Completed [facility] Afluria Afluria Unknown Completed [facility] Flucelvax (ccIIV4) - SDS - 0.5mL Flucelvax (ccIIV4) - SDS - 0.5mL Unknown Completed [facility] Td Td Unknown Completed [facility] MODERNA COVID-19 VACCINE (LOW DOSE BOOSTER) MODERNA COVID-19 VACCINE (LOW DOSE BOOSTER) Unknown Completed [facility] Afluria (IIV4) - 3 years and older - SDS - 0.5mL Afluria (IIV4) - 3 years and older - SDS - 0.5mL Unknown Completed [facility] Afluria Afluria Unknown Completed [facility] Flucelvax (ccIIV4) - SDS - 0.5mL Flucelvax (ccIIV4) - SDS - 0.5mL Unknown Completed [facility] Td Td Unknown Completed [facility] Vital Signs Vital Name Observation Time Observation Value Comments S renzo Systolic blood pressure 2024-09-24 20:01:00 124 mm[Hg] [facility] Diastolic blood pressure 2024-09-24 20:01:00 65 mm[Hg] [facility] Heart rate 2024-09-24 20:01:00 67 /min [facility] Body height 2024-09-24 20:01:00 170.2 cm [facility] height 2024-09-18 09:40:00 66.5 [in_i] Comm on [facility] weight 2024-09-18 09:40:00 271 [lb_av] Comm on [facility] temperature 2024-09-18 09:40:00 97 [degF] Comm on [facility] bmi 2024-09-18 09:40:00 43.08 kg/m2 Comm on [facility] oximetry 2024-09-18 09:40:00 95 % Commo n [facility] respiratory rate 2024-09-18 09:40:00 16 /min [facility] blood pressure systolic 2024-09-18 09:40:00 128 mm[Hg] [facility] blood pressure diastolic 2024-09-18 09:40:00 88 mm[Hg] [facility] height 2024-08-01 10:00:00 66.5 [in_i] Comm on [facility] weight 2024-08-01 10:00:00 285 [lb_av] Comm on [facility] temperature 2024-08-01 10:00:00 97.6 [degF] Com mon [facility] bmi 2024-08-01 10:00:00 45.31 kg/m2 Comm on [facility] oximetry 2024-08-01 10:00:00 94 % Commo n [facility] respiratory rate 2024-08-01 10:00:00 17 /min [facility] blood pressure systolic 2024-08-01 10:00:00 134 mm[Hg] [facility] blood pressure diastolic 2024-08-01 10:00:00 80 mm[Hg] [facility] Systolic blood pressure 2024-06-30 15:28:00 116 mm[Hg] [facility] Diastolic blood pressure 2024-06-30 15:28:00 80 mm[Hg] [facility] Heart rate 2024-06-30 15:28:00 59 /min [facility] Respiratory rate 2024-06-30 15:28:00 18 /min [facility] Body height 2024-06-30 15:28:00 167.6 cm [facility] Oxygen saturation in Arterial blood by Pulse oximetry 2024-06-30 15:28:00 98 /min [facility] height 2024-04-30 15:00:00 66.5 [in_i] Comm on [facility] weight 2024-04-30 15:00:00 290 [lb_av] Comm on [facility] temperature 2024-04-30 15:00:00 97.3 [degF] Com mon [facility] bmi 2024-04-30 15:00:00 46.1 kg/m2 Commo n [facility] oximetry 2024-04-30 15:00:00 98 % Commo n [facility] respiratory rate 2024-04-30 15:00:00 16 /min [facility] blood pressure systolic 2024-04-30 15:00:00 144 mm[Hg] [facility] blood pressure diastolic 2024-04-30 15:00:00 82 mm[Hg] [facility] Systolic blood pressure 2024-03-25 15:55:00 132 mm[Hg] [facility] Diastolic blood pressure 2024-03-25 15:55:00 66 mm[Hg] [facility] Heart rate 2024-03-25 15:55:00 63 /[facility] Body height 2024-03-25 15:55:00 167.6 cm [facility] Body weight 2024-03-25 15:55:00 142.883 kg [facility] BMI 2024-03-25 15:55:00 50.84 kg/m2 [facility] Systolic blood pressure 2024-03-11 15:31:00 134 mm[Hg] [facility] Diastolic blood pressure 2024-03-11 15:31:00 84 mm[Hg] [facility] Heart rate 2024-03-11 15:31:00 66 /min [facility] Body temperature 2024-03-11 15:31:00 36.67 [facility] Respiratory rate 2024-03-11 15:31:00 18 /min [facility] Body height 2024-03-11 15:31:00 167.6 cm [facility] Body weight 2024-03-11 15:31:00 142.883 kg [facility] BMI 2024-03-11 15:31:00 50.84 kg/m2 [facility] height 2024-01-21 15:40:00 66.5 [in_i] Comm on [facility] weight 2024-01-21 15:40:00 290 [lb_av] Comm on [facility] temperature 2024-01-21 15:40:00 98 [degF] Comm on [facility] bmi 2024-01-21 15:40:00 46.1 kg/m2 Commo n [facility] height 2024-01-04 14:00:00 66.5 [in_i] Comm on [facility] weight 2024-01-04 14:00:00 296 [lb_av] Comm on [facility] bmi 2024-01-04 14:00:00 47.05 kg/m2 [facility] [facility] height 2023-10-29 09:30:00 66.5 [in_i] Comm on [facility] weight 2023-10-29 09:30:00 286 [lb_av] Comm on [facility] bmi 2023-10-29 09:30:00 45.47 kg/m2 Comm on [facility] height 2023-10-12 09:00:00 66.5 [in_i] Comm on [facility] weight 2023-10-12 09:00:00 298 [lb_av] Comm on [facility] temperature 2023-10-12 09:00:00 97.4 [degF] Com mon [facility] bmi 2023-10-12 09:00:00 47.37 kg/m2 Comm on [facility] oximetry 2023-10-12 09:00:00 97 % Commo n [facility] respiratory rate 2023-10-12 09:00:00 17 /min Common [facility] blood pressure systolic 2023-10-12 09:00:00 130 mm[Hg] [facility] blood pressure diastolic 2023-10-12 09:00:00 74 mm[Hg] Common [facility] height 2023-07-11 14:00:00 66.5 [in_i] Comm on [facility] weight 2023-07-11 14:00:00 300 [lb_av] Comm on [facility] temperature 2023-07-11 14:00:00 97.9 [degF] Com mon [facility] bmi 2023-07-11 14:00:00 47.69 kg/m2 Comm on [facility] oximetry 2023-07-11 14:00:00 97 % Commo n [facility] respiratory rate 2023-07-11 14:00:00 17 /min Common [facility] blood pressure systolic 2023-07-11 14:00:00 138 mm[Hg] Common [facility] blood pressure diastolic 2023-07-11 14:00:00 80 mm[Hg] Common [facility] height 2023-03-27 16:40:00 66.5 [in_i] Comm on [facility] weight 2023-03-27 16:40:00 306.2 [lb_av] Co mmon [facility] temperature 2023-03-27 16:40:00 98.0 [degF] Com [facility] bmi 2023-03-27 16:40:00 48.68 kg/m2 Comm on [facility] oximetry 2023-03-27 16:40:00 96 % Commo n [facility] respiratory rate 2023-03-27 16:40:00 16 /min Common [facility] blood pressure systolic 2023-03-27 16:40:00 142 mm[Hg] Common [facility] blood pressure diastolic 2023-03-27 16:40:00 79 mm[Hg] Common [facility] height 2023-03-22 11:00:00 66.5 [in_i] Comm on [facility] weight 2023-03-22 11:00:00 305 [lb_av] Comm on [facility] temperature 2023-03-22 11:00:00 98.0 [degF] Com [facility] bmi 2023-03-22 11:00:00 48.49 kg/m2 Comm on [facility] oximetry 2023-03-22 11:00:00 97 % Commo n [facility] respiratory rate 2023-03-22 11:00:00 17 /min [facility] blood pressure systolic 2023-03-22 11:00:00 134 mm[Hg] [facility] blood pressure diastolic 2023-03-22 11:00:00 78 mm[Hg] [facility] Respiratory rate 2023-03-08 13:48:00 15 /min [facility] Oxygen saturation in Arterial blood by Pulse oximetry 2023-03-08 13:48:00 99 /min [facility] Systolic blood pressure 2023-03-08 13:46:00 99 mm[Hg] [facility] Diastolic blood pressure 2023-03-08 13:46:00 57 mm[Hg] [facility] Body temperature 2023-03-08 13:31:00 36.11 [facility] Body height 2023-03-01 17:00:00 170.2 cm [facility] Body weight 2023-03-01 17:00:00 142.883 kg [facility] BMI 2023-03-01 17:00:00 49.34 kg/m2 [facility] Respiratory rate 2023-03-08 13:48:00 15 /min [facility] Oxygen saturation in Arterial blood by Pulse oximetry 2023-03-08 13:48:00 99 /min [facility] Systolic blood pressure 2023-03-08 13:46:00 99 mm[Hg] [facility] Diastolic blood pressure 2023-03-08 13:46:00 57 mm[Hg] [facility] Body temperature 2023-03-08 13:31:00 36.11 [facility] Body height 2023-03-01 17:00:00 170.2 cm [facility] Body weight 2023-03-01 17:00:00 142.883 kg [facility] BMI 2023-03-01 17:00:00 49.34 kg/m2 [facility] Systolic blood pressure 2023-02-22 15:01:00 111 mm[Hg] [facility] Diastolic blood pressure 2023-02-22 15:01:00 83 mm[Hg] [place] [facility] Heart rate 2023-02-22 15:01:00 56 /[facility] 2023-02-22 15:01:00 22 /min [facility] Oxygen saturation in Arterial blood by Pulse oximetry 2023-02-22 15:01:00 96 /min [facility] Body temperature 2023-02-22 14:47:00 36.67 [facility] Body height 2023-02-13 21:00:00 170.2 cm [facility] Body weight 2023-02-13 21:00:00 143.79 kg [facility] BMI 2023-02-13 21:00:00 49.65 kg/m2 [facility] Systolic blood pressure 2023-02-22 13:27:00 123 mm[Hg] [facility] Diastolic blood pressure 2023-02-22 13:27:00 66 mm[Hg] [facility] Heart rate 2023-02-22 13:27:00 64 /min [facility] Body temperature 2023-02-22 13:27:00 36.22 [facility] Respiratory rate 2023-02-22 13:27:00 18 /min [facility] Oxygen saturation in Arterial blood by Pulse oximetry 2023-02-22 13:27:00 98 /min [facility] Body height 2023-02-13 21:00:00 170.2 cm [facility] Body weight 2023-02-13 21:00:00 143.79 kg [facility] BMI 2023-02-13 21:00:00 49.65 kg/m2 [facility] height 2023-02-08 11:40:00 67 [in_i] Commo n [facility] weight 2023-02-08 11:40:00 327 [lb_av] Comm on [facility] bmi 2023-02-08 11:40:00 51.21 kg/m2 Comm on [facility] Systolic blood pressure 2022-10-30 21:21:00 139 mm[Hg] [facility] Diastolic blood pressure 2022-10-30 21:21:00 82 mm[Hg] [facility] Heart rate 2022-10-30 21:21:00 60 /min [facility] Respiratory rate 2022-10-30 21:21:00 19 /min [facility] Body height 2022-10-30 21:21:00 170.2 cm [facility] Body weight 2022-10-30 21:21:00 144.244 kg [facility] BMI 2022-10-30 21:21:00 49.81 kg/m2 [facility] Oxygen saturation in Arterial blood by Pulse oximetry 2022-10-30 21:21:00 96 /min [facility] height 2022-09-18 11:00:00 67 [in_i] Commo n [facility] weight 2022-09-18 11:00:00 327.8 [lb_av] Co mmon [facility] temperature 2022-09-18 11:00:00 97.0 [degF] Com mon [facility] bmi 2022-09-18 11:00:00 51.34 kg/m2 Comm on [facility] oximetry 2022-09-18 11:00:00 98 % Commo n [facility] respiratory rate 2022-09-18 11:00:00 15 /min Common [facility] blood pressure systolic 2022-09-18 11:00:00 123 mm[Hg] Common [facility] blood pressure diastolic 2022-09-18 11:00:00 74 mm[Hg] Common [facility] height 2022-08-28 14:40:00 67 [in_i] Commo n [facility] weight 2022-08-28 14:40:00 329 [lb_av] Comm on [facility] bmi 2022-08-28 14:40:00 51.52 kg/m2 Comm on [facility] oximetry 2022-08-28 14:40:00 96 % Commo n [facility] respiratory rate 2022-08-28 14:40:00 25 /min [facility] blood pressure systolic 2022-08-28 14:40:00 119 mm[Hg] Common [facility] blood pressure diastolic 2022-08-28 14:40:00 59 mm[Hg] Common [facility] height 2022-07-11 11:00:00 67 [in_i] Commo n [facility] weight 2022-07-11 11:00:00 318.6 [lb_av] Co mmon [facility] temperature 2022-07-11 11:00:00 97.3 [degF] Com mon [facility] bmi 2022-07-11 11:00:00 49.89 kg/m2 Comm on [facility] oximetry 2022-07-11 11:00:00 99 % Commo n [facility] respiratory rate 2022-07-11 11:00:00 15 /min [facility] blood pressure systolic 2022-07-11 11:00:00 129 mm[Hg] [facility] blood pressure diastolic 2022-07-11 11:00:00 76 mm[Hg] [facility] Systolic blood pressure 2022-04-20 18:36:00 95 mm[Hg] [facility] Diastolic blood pressure 2022-04-20 18:36:00 66 mm[Hg] [facility] Heart rate 2022-04-20 18:36:00 60 /min [facility] Body temperature 2022-04-20 18:36:00 36.67 [facility] Respiratory rate 2022-04-20 18:36:00 18 /min [facility] Body height 2022-04-20 18:36:00 170.2 cm [facility] Body weight 2022-04-20 18:36:00 145.151 kg [facility] BMI 2022-04-20 18:36:00 50.12 kg/m2 [facility] height 2022-04-10 10:40:00 67 [in_i] Commo n [facility] weight 2022-04-10 10:40:00 318.6 [lb_av] Co mmon [facility] temperature 2022-04-10 10:40:00 97.7 [degF] Com mon [facility] bmi 2022-04-10 10:40:00 49.89 kg/m2 Comm on [facility] oximetry 2022-04-10 10:40:00 98 % Commo n [facility] respiratory rate 2022-04-10 10:40:00 17 /min Common [facility] blood pressure systolic 2022-04-10 10:40:00 127 mm[Hg] [facility] diastolic 2022-04-10 10:40:00 79 mm[Hg] Common [facility] height 2022-01-02 15:20:00 67 [in_i] Commo n [facility] weight 2022-01-02 15:20:00 317.2 [lb_av] Co mmon [facility] temperature 2022-01-02 15:20:00 96.4 [degF] Com mon [facility] bmi 2022-01-02 15:20:00 49.68 kg/m2 Comm on [facility] oximetry 2022-01-02 15:20:00 97 % Commo n [facility] respiratory rate 2022-01-02 15:20:00 15 /min Common [facility] blood pressure systolic 2022-01-02 15:20:00 96 mm[Hg] [facility] blood pressure diastolic 2022-01-02 15:20:00 60 mm[Hg] Common [facility] height 2021-12-14 10:00:00 67 [in_i] Commo n [facility] weight 2021-12-14 10:00:00 320 [lb_av] Comm on [facility] temperature 2021-12-14 10:00:00 96 [degF] Comm on [facility] bmi 2021-12-14 10:00:00 50.11 kg/m2 Comm on [facility] height 2021-11-10 09:20:00 67 [in_i] Commo n [facility] weight 2021-11-10 09:20:00 322 [lb_av] Comm on [facility] temperature 2021-11-10 09:20:00 97.6 [degF] Com mon [facility] bmi 2021-11-10 09:20:00 50.43 kg/m2 Comm on [facility] oximetry 2021-11-10 09:20:00 98 % Commo n [facility] blood pressure systolic 2021-11-10 09:20:00 131 mm[Hg] Common [facility] blood pressure diastolic 2021-11-10 09:20:00 82 mm[Hg] [facility] height 2021-10-07 11:20:00 67 [in_i] Commo n [facility] weight 2021-10-07 11:20:00 319.8 [lb_av] Co mmon [facility] temperature 2021-10-07 11:20:00 97.2 [degF] Com mon [facility] bmi 2021-10-07 11:20:00 50.08 kg/m2 Comm on [facility] oximetry 2021-10-07 11:20:00 97 % Commo n [facility] respiratory rate 2021-10-07 11:20:00 18 /min Common [facility] blood pressure systolic 2021-10-07 11:20:00 111 mm[Hg] Common [facility] blood pressure diastolic 2021-10-07 11:20:00 73 mm[Hg] [facility] Systolic blood pressure 2024-09-24 20:01:00 124 mm[Hg] [facility] Diastolic blood pressure 2024-09-24 20:01:00 65 mm[Hg] [facility] Heart rate 2024-09-24 20:01:00 67 /min [facility] Body height 2024-09-24 20:01:00 170.2 cm [facility] Respiratory rate 2024-06-30 15:28:00 18 /min [facility] Oxygen saturation in Arterial blood by Pulse oximetry 2024-06-30 15:28:00 98 /min [facility] Body weight 2024-03-25 15:55:00 142.883 kg [facility] BMI 2024-03-25 15:55:00 50.84 kg/m2 [facility] Body temperature 2024-03-11 15:31:00 36.67 [facility] Procedures Procedure Date / Time Performed Performing Clinician Source CT HIP LEFT WO CONTRAST 2024-10-13 16:46:58 Ivy Ramos [facility] XR HIPS 2 VW LEFT 2024-09-24 20:23:53 Ivy Ramos [facility] DERMATOPATHOLOGY TISSUE EXAM 2024-07-10 20:01:00 Yanet Simon [facility] CT HEAD WO CONTRAST 2024-07-07 20:56:14 Peng Glez [facility] CT HEAD WO CONTRAST 2024-07-07 20:56:14 Peng Glez [facility] PHACOEMULSIFICATION OF CATARACT WITH INTRAOCULAR LENS IMPLANT 2023-03-08 12:53:00 Prasad Alarcon [facility] POCT GLUCOSE (AUTOMATED) 2023-03-08 12:15:00 Prasad Alarcon [facility] POCT GLUCOSE (AUTOMATED) 2023-03-08 12:15:00 Prasad Alarcon [facility] PATIENT QUESTIONNAIRE 2023-03-08 05:01:00 Doctor Unassigned, [place] [facility] PHACOEMULSIFICATION OF CATARACT WITH INTRAOCULAR LENS IMPLANT 2023-02-22 14:12:00 Prasad Alarcon [facility] POCT GLUCOSE (AUTOMATED) 2023-02-22 13:26:00 NeemaPrasad michel [facility] POCT GLUCOSE (AUTOMATED) 2023-02-22 13:26:00 Prasad Alarcon [facility] PATIENT QUESTIONNAIRE 2023-02-22 05:01:00 Doctor Unassigned, [place] [facility] - [facility] 2023-02-22 05:01:00 Doctor Unassigned, [place] [facility] PATIENT QUESTIONNAIRE 2023-02-22 05:01:00 Doctor Unassigned, [place] [facility] 2023-02-22 05:01:00 Doctor Unassigned, [place] [facility] ASSIGNMENT OF BENEFITS 2023-02-13 16:19:16 Doctor Unassigned, [place] [facility] BI SCREENING TOMOSYNTHESIS BILATERAL 2022-05-05 15:19:33 AdumOpal [facility] HCV ANTIBODY 2021-03-24 18:42:00 Adum, Opal Reynoso [facility] HIV 1/2 AG-AB WITH REFLEX 2021-03-24 18:42:00 AdOpal romero [facility] EXTERNAL LAB A1C 2018-08-19 16:00:00 Doctor Unassigned, [place] [facility] BASIC METABOLIC PANEL (NA, K , CL, CO2, GLUCOSE, BUN, CREATININE, CA) 2016-05-04 07:20:00 Ashley Singleton [facility] 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 ORDER/REPORT PROCEDURE 2013-01-21 08:26:00 Re Beckwith [facility] Encounters Start Date/Time End Date/Time Encounter Type Admission Type Attending Clinicians Care Facility Care Department Encounter ID Source 2023-10-11 13:33:00 Outpatient Jose Guadalupe Woodward [facility] [id number] [facility] 2023-03-22 10:41:00 Outpatient Jose Guadalupe Woodward [facility] [id number] [facility] 2023-02-28 11:02:00 Outpatient Jose Guadalupe Woodward [facility] [id number] [facility] 2023-02-08 11:09:00 Outpatient Jose Guadalupe Woodward [facility] [id number] [facility] 2023-01-02 09:02:01 Outpatient Sofi Rush [facility] [id number] [facility] 2023-01-01 09:08:00 Outpatient Sofi Rush [facility] [id number] [facility] 2022-09-14 13:58:00 Outpatient Shabazz, Na [facility] [id number] [facility] 2022-07-07 10:36:00 Outpatient Shabazz, Na [facility] [id number] [facility] 2022-04-10 10:21:15 Outpatient Shabazz, Na [facility] [id number] [facility] 2022-04-06 11:08:00 Outpatient Shabazz, Na [facility] [id number] [facility] 2022-01-25 10:27:01 Outpatient Shabazz, Na [facility] [id number] [facility] 2022-01-02 16:38:01 Outpatient Shabazz, Na [facility] [id number] [facility] 2021-12-21 14:25:40 Outpatient Shabazz, Na [facility] [id number] [facility] 2021-12-21 14:24:21 Outpatient Shabazz, Na [facility] [id number] [facility] 2021-12-21 14:13:58 Outpatient Shabazz, Na [facility] [id number] [facility] 2021-12-21 14:12:46 Outpatient Shabazz, Na [facility] [id number] [facility] 2021-12-21 13:36:34 Outpatient Shabazz, Na [facility] [id number] [facility] 2021-12-21 13:35:25 Outpatient Shabazz, Na [facility] [id number] [facility] 2021-12-21 13:20:19 Outpatient Shabazz, Na [facility] [id number] [facility] 2021-12-21 13:19:52 Outpatient Shabazz, Na [facility] [id number] [facility] 2021-12-21 12:41:36 Outpatient Shabazz, Na [facility] [id number] [facility] 2021-12-21 12:26:03 Outpatient Shabazz, Na [facility] [id number] [facility] 2021-12-21 12:18:00 Outpatient Shabazz, Na [facility] [id number] [facility] 2021-12-21 11:54:00 Outpatient Shabazz, Na [facility] [id number] [facility] 2021-12-21 11:53:41 Outpatient Shabazz, Na [facility] [id number] [facility] 2021-12-21 11:53:09 Outpatient Shabazz, Na [facility] [id number] [facility] 2021-12-21 11:35:33 Outpatient Shabazz, Na [facility] [id number] [facility] 2021-12-21 11:20:32 Outpatient Shabazz, Na [facility] [id number] [facility] 2021-12-21 11:18:09 Outpatient Halle Shabazz [facility] [id number] [facility] 2024-10-13 10:18:33 2024-10-13 23:59:00 Outpatient IVY RIVERA [facility] [id number] [facility] 2024-10-13 10:00:00 2024-10-13 23:59:00 Hospital Encounter Ivy Ramos [facility] 1.2.840.114 350.1.13.10 4.2.7.2.686 [id number] [facility] 2024-10-06 00:00:00 2024-10-06 23:59:00 Outpatient R IVY RAMOS [facility] [id number] [facility] 2024-10-05 00:00:00 2024-10-06 12:35:45 RefPeng Shipley 1.2.840.1 [id number] .[id number] [facility] 2024-09-24 15:01:16 2024-09-24 23:59:00 Outpatient R IVY RAMOS [facility] [id number] [facility] 2024-09-24 15:01:16 2024-09-24 23:59:00 Hospital Encounter Ivy Ramos 1.2.840.1 [id number] 3.104.2.7 .[id number] .[id number] [facility] 2024-09-24 00:00:00 2024-09-24 16:16:45 Telephone Ashley Singleton 1.2.840.1 [id number] 3.104.2.7 .[id number] .[id number] [facility] 2024-09-24 15:30:00 2024-09-24 16:07:17 Office Visit Ivy Ramos 1.2.840.1 [id number] 3.104.2.7 .[id number] .[id number] [facility] 2024-09-24 00:00:00 2024-09-24 00:00:00 Travel 1.2.840.1 [id number] 3.104.2.7 .[id number] .8 1.2.840.114 350.1.13.10 4.2.7.3.698 [id number] [facility] 2024-09-18 00:00:00 2024-09-18 00:00:00 OFFICE VISIT ESTAB PT LEVEL 3 [facility] [id number] [facility] 2024-09-16 00:00:00 2024-09-16 00:00:00 (TEL) [facility] [id number] [facility] 2024-07-02 00:00:00 2024-08-02 18:18:57 Patient Secure Msg Doctor Unassigned, [place] Doctor Unassigned, [place] [facility] 1.2.840.114 350.1.13.10 4.2.7.2.686 [id number] [facility] 2024-08-01 00:00:00 2024-08-01 00:00:00 OFFICE VISIT ESTAB PT LEVEL 4 [facility] [id number] [facility] 2024-07-10 14:15:00 2024-07-10 14:35:57 Outpatient R ESTEPHANIA CORRALES [facility] [id number] [facility] 2024-07-10 14:15:00 2024-07-10 14:35:57 Office Visit Estephania Corrales Sarah Isabel 1.2.840.1 [id number] 3.104.2.7 .3.337170 .[id number] [facility] 2024-07-10 00:00:00 2024-07-10 00:00:00 Travel 1.2.840.1 [id number] 3.104.2.7 .3.558145 .8 1.2.840.114 350.1.13.10 4.2.7.3.698 [id number] [facility] 2024-07-04 00:00:00 2024-07-08 16:55:36 Telephone Peng Glez [facility] JASON[facility] 1.2.840.114 350.1.13.10 4.2.7.2.686 [id number] [facility] 2024-07-07 15:40:00 2024-07-07 23:59:00 Outpatient PENG SEXTON HOWARD [facility] [id number] [facility] 2024-07-07 15:40:00 2024-07-07 23:59:00 Hospital Encounter Peng Glez 1.2.840.1 [id number] 3.104.2.7 .[id number] .8 [id number] [facility] 2024-07-07 00:00:00 2024-07-07 00:00:00 Travel 1.2.840.1 [id number] 3.104.2.7 .3.110105 .8 1.2.840.114 350.1.13.10 4.2.7.3.698 [id number] [facility] 2024-06-30 10:40:00 2024-06-30 11:34:25 Outpatient PENG SEXTON HOWARD [facility] [id number] [facility] 2024-06-30 10:40:00 2024-06-30 11:34:25 Office Visit Peng Glez [facility] JASON[facility] 1..840.114 350.1.13.10 4.2.7.2.686 [id number] [facility] 2024-05-01 00:00:00 2024-06-07 18:24:23 Patient Secure Msg Doctor Unassigned, [place] [facility] 1.840.114 350.1.13.10 4.2.7.2.686 [id number] [facility] 2024-05-28 00:00:00 2024-05-28 00:00:00 (TEL) [facility] [id number] [facility] 2024-04-30 00:00:00 2024-04-30 00:00:00 OFFICE VISIT ESTAB PT LEVEL 4 [facility] [id number] [facility] 2024-04-23 00:00:00 2024-04-23 00:00:00 (TEL) [facility] [id number] [facility] 2024-03-25 11:30:00 2024-03-25 11:30:00 Office Visit Mayur Zurita [facility] 1..840.114 350.1.13.10 4.2.7.2.686 [id number] [facility] 2024-03-25 11:30:00 2024-03-25 11:03:09 Outpatient R MAYUR ZURITA [facility] [id number] [facility] 2024-03-17 00:00:00 2024-03-17 00:00:00 Refill Mayur Zurita [facility] 1.840.114 350.1.13.10 4.2.7.2.686 [id number] [facility] 2024-03-11 11:30:00 2024-03-11 11:30:00 Office Visit Mayur Zurita [facility] 1.2.840.114 350.1.13.10 4.2.7.2.686 [id number] [facility] 2024-03-11 11:30:00 2024-03-11 11:14:16 Outpatient R MAYUR ZURITA [facility] [id number] [facility] 2024-03-05 11:30:00 2024-03-05 11:30:00 Outpatient MAYUR JUAREZ [facility] [id number] [facility] 2024-02-26 00:00:00 2024-02-26 00:00:00 (TEL) [facility] [id number] [facility] 2024-02-21 00:00:00 2024-02-21 00:00:00 Outpatient GC_GCBZW_Ro man_M [facility] [id number] [facility] 2024-02-19 00:00:00 2024-02-19 00:00:00 (TEL) STLMLC STLMLC [id number] [facility] 2024-01-21 00:00:00 2024-01-21 00:00:00 OFFICE VISIT ESTAB PT LEVEL 4 STLMLC STLMLC [id number] [facility] 2024-01-04 00:00:00 2024-01-04 00:00:00 OFFICE VISIT ESTAB PT LEVEL 3 STLMLC STLMLC [id number] [facility] 2024-01-04 00:00:00 2024-01-04 00:00:00 (TEL) STLMLC STLMLC [id number] [facility] 2023-12-03 00:00:00 2023-12-03 00:00:00 (TEL) STLMLC STLMLC [id number] [facility] 2023-11-23 00:00:00 2023-11-23 00:00:00 (TEL) STLMLC STLMLC [id number] [facility] 2023-11-22 00:00:00 2023-11-22 00:00:00 (TEL) STLMLC STLMLC [id number] [facility] 2023-10-29 00:00:00 2023-10-29 00:00:00 OFFICE VISIT ESTAB PT LEVEL 4 STLMLC STLMLC [id number] [facility] 2023-10-29 00:00:00 2023-10-29 00:00:00 (TEL) STLMLC STLMLC [id number] [facility] 2023-10-12 00:00:00 2023-10-12 00:00:00 OFFICE VISIT ESTAB PT LEVEL 4 STLMLC STLMLC [id number] [facility] 2023-10-10 00:00:00 2023-10-10 00:00:00 (TEL) STLMLC STLMLC [id number] [facility] 2023-08-29 00:00:00 2023-08-29 00:00:00 (TEL) STLMLC STLMLC [id number] [facility] 2023-08-17 00:00:00 2023-08-17 00:00:00 (TEL) STLMLC STLMLC [id number] [facility] 2023-07-16 00:00:00 2023-07-16 00:00:00 Outpatient GC_GCBZW_Ro man_[facility] [id number] [facility] 2023-07-11 00:00:00 2023-07-11 00:00:00 OFFICE VISIT ESTAB PT LEVEL 4 STLMLC STLMLC [id number] [facility] 2023-07-09 00:00:00 2023-07-09 00:00:00 (TEL) STLMLC STLMLC [id number] [facility] 2023-07-02 00:00:00 2023-07-02 00:00:00 (TEL) STLMLC STLMLC [id number] [facility] 2023-06-12 00:00:00 2023-06-12 00:00:00 (TEL) STLMLC STLMLC [id number] [facility] 2023-05-03 00:00:00 2023-05-03 00:00:00 (TEL) STLMLC STLMLC [id number] [facility] 2023-04-24 00:00:00 2023-04-24 00:00:00 (TEL) STLMLC STLMLC [id number] [facility] 2023-04-20 10:30:00 2023-04-20 10:30:00 Outpatient OPAL URENA [facility] [id number] [facility] 2023-04-20 10:30:00 2023-04-20 10:30:00 Outpatient OPAL URENA [facility] [id number] [facility] 2023-03-27 00:00:00 2023-03-27 00:00:00 OFFICE VISIT ESTAB PT LEVEL 4 STLMLC STLMLC [id number] [facility] 2023-03-23 00:00:00 2023-03-23 00:00:00 (TEL) STLMLC STLMLC [id number] [facility] 2023-03-22 00:00:00 2023-03-22 00:00:00 OFFICE VISIT ESTAB PT LEVEL 4 STLMLC STLMLC [id number] [facility] 2023-03-08 08:34:00 2023-03-08 09:09:00 Surgery Prasad Alarcon [facility] 1.2.840.114 350.1.13.10 4.2.7.2.686 [id number] [facility] 2023-03-08 07:01:00 2023-03-08 09:08:00 Outpatient PRASAD MANZO DCSHAUN OPH [id number] [facility] 2023-03-08 07:01:00 2023-03-08 09:08:00 Hospital Encounter Prasad Alarcon [facility] 1.2.840.114 350.1.13.10 4.2.7.2.686 [id number] [facility] 2023-03-08 00:00:00 2023-03-08 00:00:00 Orders Only Doctor Unassigned, [place] [facility] 1.2.840.114 350.1.13.10 4.2.7.2.686 [id number] [facility] 2023-02-22 08:07:00 2023-02-22 10:09:00 Outpatient R PRASAD ALARCON [facility] OPH [id number] [facility] 2023-02-22 08:07:00 2023-02-22 10:09:00 Hospital Encounter Prasad Alarcon [facility] 1.2.840.114 350.1.13.10 4.2.7.2.686 [id number] [facility] 2023-02-22 09:06:00 2023-02-22 09:41:00 Surgery Neema Prasad [facility] 1.2.840.114 350.1.13.10 4.2.7.2.686 [id number] [facility] 2023-02-13 00:00:00 2023-02-13 00:00:00 Orders Only Doctor Unassigned, [place] [facility] 1.2.840.114 350.1.13.10 4.2.7.2.686 [id number] [facility] 2023-02-08 00:00:00 2023-02-08 00:00:00 OFFICE VISIT ESTAB PT LEVEL 3 STLMLC STLC [id number] [facility] 2023-02-07 00:00:00 2023-02-07 00:00:00 (TEL) STLMLC STLMLC [id number] [facility] 2023-01-23 00:00:00 2023-01-23 00:00:00 (TEL) STLMLC STLMLC [id number] [facility] 2023-01-17 00:00:00 2023-01-17 00:00:00 (TEL) STLMLC STLMLC [id number] [facility] 2023-01-09 00:00:00 2023-01-09 00:00:00 (TEL) STLMLC STLMLC [id number] [facility] 2023-01-02 00:00:00 2023-01-02 00:00:00 (TEL) STLMLC STLMLC [id number] [facility] 2023-01-02 00:00:00 2023-01-02 00:00:00 (TEL) STLMLC STLMLC [id number] [facility] 2022-12-28 00:00:00 2022-12-28 00:00:00 Telephone ChenViviana 1.2.840.114 350.1.13.10 4.2.7.2.686 [id number] [facility] 2022-11-29 00:00:00 2022-11-29 00:00:00 (TEL) STLMLC STLMLC [id number] [facility] 2022-11-22 00:00:00 2022-11-22 00:00:00 (TEL) STLMLC STLMLC [id number] [facility] 2022-11-17 00:00:00 2022-11-17 00:00:00 (TEL) STLMLC STLMLC [id number] [facility] 2022-11-10 00:00:00 2022-11-10 00:00:00 (TEL) STLMLC STLMLC [id number] [facility] 2022-11-10 00:00:00 2022-11-10 00:00:00 OFFICE VISIT EST PT LEVEL 3 STLMLC STLMLC [id number] [facility] 2022-11-01 00:00:00 2022-11-01 00:00:00 (TEL) STLMLC STLMLC [id number] [facility] 2022-10-31 00:00:00 2022-10-31 00:00:00 (TEL) STLMLC STLMLC [id number] [facility] 2022-10-30 15:30:00 2022-10-30 16:33:07 Outpatient R ASHLEY SINGLETON [facility] [id number] [facility] 2022-10-30 15:30:00 2022-10-30 16:33:07 Office Visit Ashley Singleton [facility] 1.2.840.114 350.1.13.10 4.2.7.2.686 [id number] [facility] 2022-10-09 00:00:00 2022-10-09 00:00:00 (TEL) STLMLC STLMLC [id number] [facility] 2022-09-18 00:00:00 2022-09-18 00:00:00 OFFICE VISIT EST PT LEVEL 3 STLMLC STLMLC [id number] [facility] 2022-08-28 00:00:00 2022-08-28 00:00:00 OFFICE VISIT ESTAB PT LEVEL 2 STLMLC STLMLC [id number] [facility] 2022-07-28 00:00:00 2022-07-28 00:00:00 (TEL) STLMLC STLMLC [id number] [facility] 2022-07-27 00:00:00 2022-07-27 00:00:00 (TEL) STLMLC STLMLC [id number] [facility] 2022-07-11 00:00:00 2022-07-11 00:00:00 OFFICE VISIT ESTAB PT LEVEL 4 STLMLC STLMLC [id number] [facility] 2022-05-31 00:00:00 2022-05-31 00:00:00 (TEL) STLMLC STLMLC [id number] [facility] 2022-05-05 09:04:49 2022-05-05 23:59:00 Outpatient R OPAL GARDNER [facility] [id number] [facility] 2022-05-05 09:04:49 2022-05-05 23:59:00 Hospital Encounter AdOpal romero [facility] 1.2.840.114 350.1.13.10 4.2.7.2.686 [id number] [facility] 2022-05-02 00:00:00 2022-05-02 00:00:00 Telephone Anny Dailey [facility] 1.2.840.114 350.1.13.10 4.2.7.2.686 [id number] [facility] 2022-04-20 13:30:00 2022-04-20 14:15:17 Outpatient R JOANIECORTEZ [facility] [id number] [facility] 2022-04-20 13:30:00 2022-04-20 14:15:17 Office Visit [facility] 1.2.840.114 350.1.13.10 4.2.7.2.686 [id number] [facility] 2022-04-20 00:00:00 2022-04-20 00:00:00 (TEL) STLMLC STLMLC [id number] [facility] 2022-04-10 00:00:00 2022-04-10 00:00:00 OFFICE VISIT ESTAB PT LEVEL 4 STLMLC STLMLC [id number] [facility] 2022-03-16 15:30:00 2022-03-16 15:30:00 Outpatient R ADCORTEZ [facility] [id number] [facility] 2022-03-09 00:00:00 2022-03-09 00:00:00 (TEL) STLMLC STLMLC [id number] [facility] 2022-02-06 00:00:00 2022-02-06 00:00:00 (TEL) STLMLC STLMLC [id number] [facility] 2022-01-26 00:00:00 2022-01-26 00:00:00 OFFICE VISIT EST PT LEVEL 3 STLMLC STLMLC [id number] [facility] 2022-01-02 00:00:00 2022-01-02 00:00:00 (TEL) STLMLC STLMLC [id number] [facility] 2022-01-02 00:00:00 2022-01-02 00:00:00 OFFICE VISIT ESTAB PT LEVEL 2 STLMLC STLMLC [id number] [facility] 2021-12-14 00:00:00 2021-12-14 00:00:00 OFFICE VISIT EST PT LEVEL 3 STLMLC STLMLC [id number] [facility] 2021-11-24 00:00:00 2021-11-24 00:00:00 OFFICE VISIT EST PT LEVEL 3 STLMLC STLMLC [id number] [facility] 2021-11-23 00:00:00 2021-11-23 00:00:00 (TEL) STLMLC STLMLC [id number] [facility] 2021-11-21 00:00:00 2021-11-21 00:00:00 (TEL) STLMLC STLMLC [id number] [facility] 2021-11-10 00:00:00 2021-11-10 00:00:00 OFFICE VISIT ESTAB PT LEVEL 4 STLMLC STLMLC [id number] [facility] 2021-10-14 00:00:00 2021-10-14 00:00:00 (TEL) STLMLC STLMLC [id number] [facility] 2021-10-07 00:00:00 2021-10-07 00:00:00 (COVID Inj) COVID Injection STLMLC STLMLC [id number] [facility] 2021-10-07 00:00:00 2021-10-07 00:00:00 OFFICE VISIT ESTAB PT LEVEL 4 STLMLC STLMLC [id number] [facility] 2021-10-06 00:00:00 2021-10-06 00:00:00 (TEL) STLMLC STLMLC [id number] [facility] 2021-09-22 00:00:00 2021-09-22 00:00:00 (TEL) STLMLC STLMLC [id number] [facility] 2021-08-06 05:39:00 2021-08-07 12:45:00 Inpatient CYNTHIA RichardsonJoselito schumacher [facility] TELE [id number] [address] [place] [address] 2021-08-02 00:00:00 2021-08-02 00:00:00 (TEL) STLMLC STLMLC [id number] [facility] 2021-07-11 00:00:00 2021-07-11 00:00:00 Outpatient STLMLC STLMLC [id number] [facility] 2021-07-05 00:00:00 2021-07-05 00:00:00 Outpatient STLMLC STLMLC [id number] [facility] 2021-06-08 00:00:00 2021-06-08 00:00:00 Outpatient STLMLC STLMLC [id number] [facility] 2021-05-25 00:00:00 2021-05-25 00:00:00 Outpatient STLMLC STLMLC [id number] [facility] 2021-05-17 00:00:00 2021-05-17 00:00:00 Outpatient STLMLC STLMLC [id number] [facility] 2021-04-19 00:00:00 2021-04-19 00:00:00 Outpatient STLMLC STLMLC [id number] [facility] 2021-04-15 00:00:00 2021-04-15 00:00:00 Outpatient STLMLC STLMLC [id number] [facility] 2021-03-31 00:00:00 2021-03-31 00:00:00 Outpatient STLMLC STLMLC [id number] [facility] 2021-03-24 13:35:27 2021-03-24 13:50:27 Surveillance Agent Visit 2, Adc Lab Adum, Opal Reynoso [facility] 1.2.840.114 350.1.13.10 4.2.7.2.686 [id number] [facility] 2021-03-24 13:35:27 2021-03-24 13:50:27 Surveillance Agent Visit 2, [facility] Building 1.2.840.114 350.1.13.10 4.2.7.2.686 [id number] 2021-03-24 13:15:00 2021-03-24 13:15:00 Outpatient R ADCORTEZ [facility] [id number] [facility] 2021-03-11 14:23:31 2021-03-11 16:29:07 Office Visit Adum, Opal Reynoso [facility] 1.2.840.114 350.1.13.10 4.2.7.2.686 [id number] [facility] 2021-03-11 14:23:31 2021-03-11 16:29:07 Office Visit Adum, Opal Reynoso [facility] 1.2.840.114 350.1.13.10 4.2.7.2.686 [id number] 2021-03-11 14:30:00 2021-03-11 14:30:00 Outpatient R ADUM, [facility] [id number] [facility] 2021-03-11 00:00:00 2021-03-11 00:00:00 Orders Only Doctor Unassigned, [place] [facility] 1.2.840.114 350.1.13.10 4.2.7.2.686 [id number] [facility] 2021-03-10 00:00:00 2021-03-10 00:00:00 Telephone Inga Lazoshawn [place] 1.2.840.114 350.1.13.10 4.2.7.2.686 [id number] [facility] 2021-02-25 00:00:00 2021-02-25 00:00:00 Outpatient STLMLC STLMLC [id number] [facility] 2021-02-20 00:00:00 2021-02-20 00:00:00 Outpatient STLMLC STLMLC [id number] [facility] 2021-02-15 00:00:00 2021-02-15 00:00:00 Outpatient STLMLC STLMLC [id number] [facility] 2021-02-11 00:00:00 2021-02-11 00:00:00 Outpatient STLMLC STLMLC [id number] [facility] 2021-02-10 00:00:00 2021-02-10 00:00:00 Outpatient STLMLC STLMLC [id number] [facility] 2021-02-09 00:00:00 2021-02-09 00:00:00 Outpatient STLMLC STLMLC [id number] [facility] 2021-02-07 00:00:00 2021-02-07 00:00:00 Outpatient STLMLC STLMLC [id number] [facility] 2021-01-30 16:10:00 2021-01-30 16:10:00 Outpatient [facility] [id number] [facility] 2021-01-29 00:00:00 2021-01-29 00:00:00 Outpatient STLMLC STLMLC [id number] [facility] 2021-01-25 00:00:00 2021-01-25 00:00:00 Outpatient STLMLC STLMLC [id number] [facility] 2021-01-18 00:00:00 2021-01-18 00:00:00 Outpatient STLMLC STLMLC [id number] [facility] 2021-01-02 15:10:00 2021-01-02 15:10:00 Outpatient JESSICA HELTON [facility] [id number] [facility] 2020-12-07 00:00:00 2020-12-07 00:00:00 Outpatient STLMLC STLMLC [id number] [facility] 2020-11-04 00:00:00 2020-11-04 00:00:00 Outpatient STLMLC STLMLC [id number] [facility] 2020-11-03 00:00:00 2020-11-03 00:00:00 Outpatient STLMLC STLMLC [id number] [facility] 2020-09-27 00:00:00 2020-09-27 00:00:00 Outpatient STLMLC STLMLC [id number] [facility] 2020-09-06 00:00:00 2020-09-06 00:00:00 Outpatient STLMLC STLMLC [id number] [facility] 2020-07-06 11:42:00 2020-07-06 11:42:00 [facility] Medicine [id number] [facility] 2020-07-05 10:00:00 2020-07-05 10:00:00 [facility] [id number] [facility] 2020-07-02 00:00:00 2020-07-02 00:00:00 Telephone Peng Glez [facility] 1.2.840.114 350.1.13.10 4.2.7.2.686 [id number] [facility] 2020-06-14 13:12:00 2020-06-14 13:12:00 Outpatient [facility] [id number] [facility] 2020-06-01 12:30:00 2020-06-01 23:59:00 Hospital Encounter Peng Glez [facility] 1.2.840.114 350.1.13.10 4.2.7.2.686 [id number] [facility] 2020-06-01 00:00:00 2020-06-01 00:00:00 Outpatient PENG SEXTON HOWARD [facility] [id number] [facility] 2020-05-28 00:00:00 2020-05-28 00:00:00 Refill Peng Glez [facility] 1.2.840.114 350.1.13.10 4.2.7.2.686 [id number] [facility] 2020-05-27 15:57:00 2020-05-27 15:57:00 Outpatient [facility] [id number] [facility] 2020-05-11 00:00:00 2020-05-11 00:00:00 Outpatient PENG SEXTON HOWARD [facility] [id number] [facility] 2020-05-11 00:00:00 2020-05-11 00:00:00 Telephone Peng Glez [facility] 1.2.840.114 350.1.13.10 4.2.7.2.686 [id number] [facility] 2020-05-04 13:46:00 2020-05-04 13:46:00 Outpatient [facility] [id number] [facility] 2020-04-29 00:00:00 2020-04-29 00:00:00 Telephone NewtonPeng knox [facility] 1.2.840.114 350.1.13.10 4.2.7.2.686 [id number] [facility] 2020-04-23 00:00:00 2020-04-23 00:00:00 Telephone Peng Glez [facility] 1.2.840.114 350.1.13.10 4.2.7.2.686 [id number] [facility] 2020-04-21 16:33:00 2020-04-21 16:33:00 Out[facility] [id number] [facility] 2020-04-01 10:40:00 2020-04-01 10:40:00 Out[facility] Medicine [id number] [facility] 2020-03-08 16:19:00 2020-03-08 16:19:00 Out[facility] Family Medicine [id number] [facility] 2020-03-01 14:28:00 2020-03-01 14:28:00 Out[facility] Medicine [id number] [facility] 2020-02-20 08:21:37 2020-02-20 15:48:50 Telemedici ne Visit NewtonPeng [facility] 1.2.840.114 350.1.13.10 4.2.7.2.686 [id number] [facility] 2020-02-20 08:40:00 2020-02-20 08:40:00 Outpatient PENG SEXTON [facility] [id number] [facility] 2020-01-28 16:24:00 2020-01-28 16:24:00 [facility] [facility] [id number] [facility] 2020-01-13 00:00:00 2020-01-13 00:00:00 Orders Only Doctor Unassigned, [place] [facility] 1.2.840.114 350.1.13.10 4.2.7.2.686 [id number] [facility] 2020-01-07 11:21:00 2020-01-07 11:21:[address] [facility] [address] [facility] [id number] [facility] 2020-01-05 14:40:00 2020-01-05 14:40:[address] [facility] [address] [facility] [address] [facility] [id number] [facility] 2019-12-19 11:20:00 2019-12-19 11:20:[address] [facility] [address] [facility] [address] [facility] [id number] [facility] 2019-11-17 10:40:00 2019-11-17 10:40:[address] [facility] [address] [facility] [address] [facility] [id number] [facility] 2019-11-12 15:22:00 2019-11-12 15:22:[address] [facility] [facility] [address] [facility] [address] [facility] [id number] [facility] 2019-10-13 08:38:00 2019-10-13 08:38:[address] [facility] [facility] [address] [facility] [address] [facility] [id number] [facility] 2019-09-25 09:55:00 2019-09-25 09:55:[address] [facility] [address] [facility] [id number] [facility] 2019-09-12 10:00:00 2019-09-12 10:00:[address] [facility] [address] [facility] [id number] [facility] 2019-08-21 14:20:00 2019-08-21 14:20:[address] [facility] [address] [facility] [id number] [facility] 2019-08-14 09:45:00 2019-08-14 09:45:00 [facility] [id number] [facility] 2019-07-23 09:30:00 2019-07-23 09:30:00 [facility] [id number] [facility] 2019-07-21 00:00:00 2019-07-21 00:00:00 Orders Only Doctor Unassigned, [place] [facility] 1.2.840.114 350.1.13.10 4.2.7.2.686 [id number] [facility] 2019-07-18 13:20:00 2019-07-18 13:20:00 [facility] [place] [facility] [id number] [facility] 2019-07-09 00:00:00 2019-07-09 00:00:00 Telephone Ashley Singleton [facility] 1.2.840.114 350.1.13.10 4.2.7.2.686 [id number] [facility] 2019-06-20 00:00:00 2019-06-20 00:00:00 Orders Only Doctor Unassigned, [place] [facility] [id number] [facility] 2019-05-21 13:45:00 2019-05-21 13:45:00 [facility] [id number] [facility] 2019-05-16 11:30:00 2019-05-16 11:30:00 [facility] [id number] [facility] 2019-05-13 10:40:00 2019-05-13 10:40:00 [facility] [address] [facility] Medicine [id number] [facility] 2019-05-08 11:30:00 2019-05-08 11:30:00 [facility] [id number] [facility] 2019-04-11 00:00:00 2019-04-11 00:00:00 Orders Only Doctor Unassigned, [place] [facility] [id number] [facility] 2019-03-13 10:40:00 2019-03-13 10:40:00 [facility] [id number] [facility] 2019-02-19 11:30:00 2019-02-19 11:30:00 [facility] [id number] [facility] 2019-02-14 11:15:00 2019-02-14 11:15:00 [facility] [id number] [facility] 2019-02-05 09:30:00 2019-02-05 09:30:00 [facility] Medicine [id number] [facility] 2019-01-17 11:00:00 2019-01-17 11:00:00 [facility] [id number] [facility] 2019-01-13 08:30:00 2019-01-13 08:30:00 [facility] [id number] [facility] 2018-12-24 07:58:00 2018-12-24 07:58:00 [facility] [id number] [facility] 2018-12-17 10:15:00 2018-12-17 10:15:00 [facility] [id number] [facility] 2018-12-13 09:35:00 2018-12-13 09:35:[address] [facility] [id number] [facility] 2018-12-11 10:30:00 2018-12-11 10:30:[address] [facility] [id number] [facility] 2018-08-22 08:12:00 2018-08-22 08:12:[address] [facility] [id number] [facility] 2018-08-20 09:15:00 2018-08-20 09:15:[address] [facility] [id number] [facility] 2018-08-05 14:15:00 2018-08-05 14:15:[address] [facility] [id number] [facility] 2016-04-28 09:15:00 2016-04-28 09:15:00 Outpatient ASHLEY YANEZ [facility] [id number] [facility] 2015-02-17 00:00:00 2015-02-17 00:00:00 Orders Only Doctor Unassigned, [place] [id number] 350.1.13.10 4.2.7.2.686 [id number] [id number] [facility] 2014-08-19 00:00:00 2014-08-19 00:00:00 Orders Only Doctor Unassigned, [place] [facility] 1.2.840.114 350.1.13.10 4.2.7.2.686 [id number] [id number] [facility] 2014-07-28 00:00:00 2014-07-28 00:00:00 Orders Only Doctor Unassigned, [place] [facility] 1.2.840.114 350.1.13.10 4.2.7.2.686 [id number] [id number] [facility] 2014-06-18 00:00:00 2014-06-18 00:00:00 Orders Only Doctor Unassigned, [place] [facility] 1.2.840.114 350.1.13.10 4.2.7.2.686 [id number] [id number] [facility] 2013-05-09 00:00:00 2013-05-09 00:00:00 Orders Only Doctor Unassigned, [place] [facility] 1.2.840.114 350.1.13.10 4.2.7.2.686 [id number] [id number] [facility] 2012-09-30 00:00:00 2012-09-30 00:00:00 Orders Only Doctor Unassigned, [place] [facility] 1.2.840.114 350.1.13.10 4.2.7.2.686 [id number] [id number] [facility] 2012-08-13 00:00:00 2012-08-13 00:00:00 Orders Only Doctor Unassigned, [place] [facility] 1.2.840.114 350.1.13.10 4.2.7.2.686 [id number] [id number] [facility] 2012-02-29 00:00:00 2012-02-29 00:00:00 Orders Only Doctor Unassigned, [place] [facility] 1.2.840.114 350.1.13.10 4.2.7.2.686 [id number] [facility] Results Test Description Test Time Test Comments Results Resul t Comments Source XR HIPS 2 VW LEFT 2024-09-30 13:15:32 XR HIPS 2 VW LEFT HISTORY: ?Left hip pain ? COMPARISON: ?none available. [facility] CT HEAD WO [id number] 21:56:33CT HEAD WO CONTRAST HISTORY: Female 58 years Headache, new or worsening (Age >= 50y) COMPARISON:MRI brain dated 06/01/2020 TECHNIQUE: Routine CT head without contrast FINDINGS: The ventricles and cerebral sulci are normal in caliber and configuration.No hydrocephalus, midline shift or pathological extra-axial fluidcollection is present. The basal cisterns are unremarkable. No acute intracranialhemorrhage or mass effect is present. The cottrell-whitematter differentiation is preserved. No significant parenchymal attenuationabnormality is present. The calvarium and skull base are unremarkable. The mastoid air cells andvisualized paranasal air sinuses are clear.[id number] 00:00:00* Test Item Value Reference Range Interpretation Comme nts Result (test code = 83899-1) NEG POCT GLUCOSE (AUTOMATED)2023-03-08 12:18:46* Test Item Value Reference Range Interpretation Comme nts POCT GLU (test code = 1893569470) 114 mg/dL 70-110 H Lab Interpretation (test cod e = 83562-6) [facility] 12:18:46* Test Item Value Reference Range Interpretation Comme nts POCT GLU (test code = 6126697964) 114 mg/dL 70-110 H Lab Interpretation (test cod e = 20126-5) Abnormal [facility] GLUCOSE (AUTOMATED)2023-02-22 13:28:04* Test Item Value Reference Range Interpretation Comme nts POCT GLU (test code = 0705375389) 124 mg/dL 70-110 H Lab Interpretation (test cod e = 12572-1) [facility]2023-02-22 13:28:04* Test Item Value Reference Range Interpretation Comme nts POCT GLU (test code = 1045621815) 124 mg/dL 70-110 H Lab Interpretation (test cod e = 84272-7) [facility] [id number] 08:33:00* Test Item Value Reference Range Interpretation Comme nts GLUCOSE BEDSIDE TESTING (meño t code = GLUBED) 72 MG/DL 60-99 N - XR CHEST [id number] 06:52:00 [facility] 1965 Sex: F Patient Name: MADHAVI WHITTAKER Unit No: [id number] EXAMS: CPT CODE: [id number] XR CHEST [id number] EXAM: CHEST ONE VIEW INDICATION: S/P ICD LOCATION: COMPARISON: August 06, 2021 TECHNIQUE: AP view [...] Tolentino MD CC: Greg Ortiz MD; Joselito Mooreq Technologist: Filiberto Rodriguez, RT(R) Transcrpt Date/Tm/Trnsp: 08/07/2021 (0652) 16 Orig Print D/T: S: 08/07/2021 (0655) [facility] NAME: MADHAVI WHITTAKER [id number] PHYS: [place] [address] : 1965 AGE: 55 SEX: F LOC: Z.363 A PHONE #: [phone] EXAM DATE: 08/07/2021 STATUS: ADM IN FAX #: [phone] RADIOLOGY NO: PAGE 1 Signed ReportBASIC METABOLIC [id number] 06:15:00* Test Item Value Reference Range Interpretation [...] CA) 8.9 MG/DL 8.4-10.2 N CBC W/AUTO [id number] 05:40:00* Test Item Value Reference Range Interpretation [...] NRBC#) 0.00 K/mm3 0.0-0.1 N GLUCOSE BEDSIDE [id number] 20:22:00* Test Item Value Reference Range Interpretation Comme nts GLUCOSE BEDSIDE TESTING (meño t code = GLUBED) 92 MG/DL 60-99 N - XR CHEST [id number] 12:24:00 [facility] : 1965 Sex: F Patient Name: MADHAVI WHITTAKER Unit No: [id number] EXAMS: CPT CODE: [id number] XR CHEST 1V 59034 CLINICAL HISTORY: S/P ICD. LOCATION: A1 FINDINGS: No comparison studies. A portable AP view of the chest is dated 08/06/2021 at 1214 hours. There is mild cardiomegaly. Dual-lead cardiac conductiondevice overlies the left chest. No pneumothorax. There is pulmonary vascular congestion with diffuse interstitial and mild alveolar infiltrates. No pleural effusions. No acute skeletal or soft tissueabnormalities are identified. IMPRESSION: 1. There is pulmonary vascular congestion with diffuse interstitial and mild alveolar infiltrates. This may be related to edema. Please correlate clinically.2. Mild cardiomegaly. at 1224 Reported and signed by: Live Geiger MD CC: Greg Ortiz MD Technologist: Carmine Alfaro (RT) Transcrpt Date/Tm/Trnsp: 08/06/2021 (1224) [email or web address] Orig Print D/T: S: 08/06/2021 (1227) [facility] NAME: MADHAVI WHITTAKER [id number] [address] PHYS: [place] [address] : 1965AGE: 55 SEX: F LOC: LOUANN Kerr PHONE #: [phone] EXAM DATE: 08/06/2021 STATUS: ADM IN FAX #: [phone] RADIOLOGY NO: PAGE 1 Signed ReportBASIC METABOLIC [id number] 09:16:00* Test Item Value Reference Range Interpretation [...] CA) 9.3 MG/DL 8.4-10.2 N Comments to Steam Frame Operator: NURSE WILL BRING SPECIMEN TO LABIs [...] mg/dL VERY HIGH.........>/= 190 mg/dL Comments to Steam Frame Operator: NURSE WILL BRING SPECIMEN TO LABIs this a LINE draw? N [id number] 09:16:00* Test Item Value Reference Range Interpretation Comme nts MAGNESIUM (test code = MAG) 1.8 MG/DL 1.6-2.3 N Comments to Steam Frame Operator: NURSE WILL BRING SPECIMEN TO LABIs this a LINE draw? N BASIC METABOLIC [id number] 09:05:00* Test Item Value Reference Range Interpretation [...] CA) 9.3 MG/DL 8.4-10.2 N Comments to Steam Frame Operator: NURSE WILL BRING SPECIMEN TO LABIs [...] code = LDL) MG/DL 0-99 Comments to Steam Frame Operator: NURSE WILL BRING SPECIMEN TO LABIs this a LINE draw? N [id number] 09:05:00* Test Item Value Reference Range Interpretation Comme nts MAGNESIUM (test code = MAG) 1.8 MG/DL 1.6-2.3 N Comments to Steam Frame Operator: NURSE WILL BRING SPECIMEN TO LABIs this a LINE draw? N PROTHROMBIN [id number] 09:01:00* Test Item Value Reference Range Interpretation [...] systemic embolism. 3.0 - 4.5 Comments to Steam Frame Operator: NURSE WILL BRING SPECIMEN TO LABPTT ACTIVATED 2021-08-06 09:01:00* Test Item Value Reference Range Interpretation Comme nts PTT ACTIVATED (test code = APTT) 31.5 SECONDS 25.1-36.5 N Comments to Steam Frame Operator: NURSE WILL BRING SPECIMEN TO LABCBC [...] NRBC#) 0.00 K/mm3 0.0-0.1 N Comments to Steam Frame Operator: NURSE WILL BRING SPECIMEN TO LABCOVID 19 Asymptomatic IH [id number] 05:59:00* Test Item Value Reference Range Interpretation [...] BILAT W/CAD Notes Date/Time Note Provider Source 2024-10-06 12:29:32 CHANI 06/30/24 NOV not scheduled Requested Prescriptions Signed Prescriptions Disp Refills nortriptyline 25 mg capsule 30 capsule 5 Sig: TAKE 1 CAPSULE BY MOUTH EVERYDAY AT BEDTIME Authorizing Provider: PENG GLEZ Ordering User: ESTHER DIA [facility] 2024-09-30 09:06:16 Addended by: YOUSIF WEEMS MA on: 09/30/2024 09:06 AM Modules accepted: Orders [facility] 2024-09-30 09:04:11 Due to not wanting the MRI due to her pacemaker placed a CT order instead, this is per the provider. Yousif Weems 09/30/2024 9:06 AM [facility] 2024-09-24 15:30:00 Addended by: IVY RAMOS on: 09/30/2024 09:06 AM Modules accepted: Orders [facility] 2024-07-08 16:54:10 Notified pt that Nortriptyline could be ordered and pt verbalized understanding and stated she was interested in trying it. Per Dr. Glez, Nortriptyline 25mg PO QHS ordered. Dose may be increased to 50mg QHS if needed. [facility] 2024-07-08 16:42:08 The Apixiban and duloxetine could conflict with each other. I know she takes gabapentin. There are not a lot of med options left. Nortriptyline has been used for this purpose as well. [facility] 2024-07-07 10:11:14 Dr. Glez, please review and advise on if new medication order should've been placed. Per CHANI 06/30/24 : -- Consider duloxetine for pain control, could be issue with Tegretol and Apixiban. T [facility] 2024-07-04 17:02:07 Madhavi Whittaker is a 58 year old female Pt calling she had an appt on Jun 30 She thought she told you were calling in medications She went to the pharm and nothing was called in Can you please check her file to see if she has new medication from Jun 30? Sheri Taylor [facility] 2024-03-17 13:21:27 Tx for Nystatin-triamcinolone sent. [facility] 2021-08-07 09:16:00 [facility] Progress Note REPORT#:[id number] REPORT STATUS: Signed DATE:08/07/21 TIME: 915 PATIENT: MADHAVI WHITTAKER UNIT #: [id number] ROOM/BED: [address] : [birth year] AGE: 55 SEX: F ATTEND: Joselito Bai MD ADM AUTHOR: Sandor Swann MD * ALL edits or amendments must be made on the electronic/computer document * Subjective Chief Complaint: Bradycardia Patient reports: No: chest pain, palpitations, shortness of breath. Objective General VS/I O: 24 hour I O ending at 0700: 08/07 0700 08/06 1900 Intake Total 200 Output Total 1 Balance 199 Intake, Oral 200 Number Voids 2 Output, Urine 1 Patient 144.545 kg Weight Weight Stated/Reported Measurement Method Vital Signs: Date Time Temp Pulse Resp B/P B/P Pulse O2 O2 Flow FiO2 Mean Ox Delivery Rate 08/07 08 97.9 68 18 144/87 106.0 100 Room air 08/07 0501 98.4 57 18 136/81 99.5 95 08/06 2351 99.1 63 18 117/71 86.5 95 08/06 2022 98.1 73 18 144/89 107.5 99 08/06 1649 98.6 59 18 148/87 107.3 96 Room air PATIENT WEIGHT: Weight (lb): 318 Weight (oz): 10.67 Weight (kg): 144.545 Medications: Active Meds + DC'd Last 24 Hrs Furosemide 20 MG ONCE ONE IV (DC) Losartan [...] MG Q8H IV (DC) Sodium Chloride 10 ML Hydrocodone Bitart/Acetaminophen 1 TAB Q4H PRN PRN PO [...] Chloride 1,000 ML ONCALL IV (DC) Physical Exam General appearance: alert, awake, oriented Head/Eyes: atraumatic, normocephalic ENT: moist mucosal membranes Neck: no JVD Cardiovascular: CV assessment: regular rate and rhythm Respiratory: clear to auscultation, no distress Lower extremity: LE assessment: no edema Musculoskeletal: full range of motion Neuro/QUALITY HEAD: alert, oriented X 3, CN II-XII intact Skin: dry, intact Psychiatry: normal affect, normal judgment/insight, normal mood Results Findings/Data: Laboratory Tests 08/07 08/07 08/06 0831 [id number] Chemistry Sodium (137 - 145 MMOL/L) 142 [...] % (Auto) (14 - 44 %) 43.5 [place] % (Auto) (4 - 13 %) 10.4 Eos % (Auto) (0 - 6 %) 1.6 Baso % (Auto) (0 - 2 %) 0.4 Neut # (Auto) (2.0 - 7.6 K/mm3) 2.20 Lymph # (Auto) (1.0 - 3.8 K/mm3) 2.18 [place] # (Auto) (0.1 - 0.8 K/mm3) 0.52 Eos # (Auto) (0.0 - 0.2 K/mm3) 0.08 Baso # (Auto) (0.0 - 0.2 K/mm3) 0.02 Immature Gran % (0.0 - 2.0 %) 0.2 Nucleated RBC % (0 - 1.0 %) 0.0 Nucleated RBCs # (Man) (0.0 - 0.1 K/mm3) 0.00 Radiology data: Recent Impressions: RADIOLOGY - XR CHEST 1V 08/06 121 Report Impression - Status: SIGNED Entered: 08/06/2021 1227 IMPRESSION: 1. There is pulmonary vascular congestion with diffuse interstitial and mild alveolar infiltrates. This may be related to edema. Please correlate clinically. 2. Mild cardiomegaly. Impression By: Ludy - Live Geiger MD RADIOLOGY - XR CHEST 1V 08/07 0553 Report Impression - Status: SIGNED Entered: 08/07/2021 0650 IMPRESSION: Cardiomegaly with diffuse congestive changes bilaterally. No pneumothorax. Impression By: Coy Tolentino MD Diagnosis, Assessment Plan Free Text DxA P Notes Free Text DxA P Notes: IMP: Bradycardia s/p PPM PLAN: d/c home f/u one week. at 1032 RPT #:[id number] END OF REPORT [facility] 2021-08-07 07:45:00 [id number] [place] [address] PATIENT NAME: MADHAVI WHITTAKER ADMIT DATE: 08/06/21 ACCOUNT NO: [id number] ROOM NO: [facility] AGE: 55 REPORT TYPE: ELECTROCARDIOGRAM SEX: F ADMITTING PHYSICIAN:Joselito Bai MD ATTENDING PHYSICIAN:Joselito Bai MD Order: [id number] Test Reason : S/P PPI Test Date/Time Stamp: SunAug 07 2021 07:45:34 Blood Pressure : / mmHG Vent. Rate : 058 BPM Atrial Rate : 058 BPM P-R Int : 176 ms QRS Dur : 082 ms QT Int : 402 ms P-R-T Axes : 029 -01 -06 degrees QTc Int : 394 ms Sinus bradycardia Cannot rule out Anterior infarct , age undetermined Abnormal ECG When compared with ECG of 06-AUG-2021 13:41, Questionable change in QRS axis Nonspecific T wave abnormality has replaced inverted T waves in Lateral leads Confirmed by GREG ORTIZ ([id number]) on 08/07/2021 8:16:10 AM Referred By: Joselito Bai Confirmed by:GREG ORTIZ at 0816 PATIENT NAME: MADHAVI WHITTAKER [facility] 2021-08-07 07:45:[address] [place] [address] PATIENT NAME: MADHAVI WHITTAKER ADMIT DATE: 08/06/21 ACCOUNT NO: [id number] ROOM NO: [facility] AGE: 55 REPORT TYPE: ELECTROCARDIOGRAM SEX: F ADMITTING PHYSICIAN:Joselito Bai MD ATTENDING PHYSICIAN:Joselito Bai MD Order: [id number] Test Reason : S/P PPI Test Date/Time Stamp: SunAug 07 2021 07:45:34 Blood Pressure : / mmHG Vent. Rate : 058 BPM Atrial Rate : 058 BPM P-R Int : 176 ms QRS Dur : 082 ms QT Int : 402 ms P-R-T Axes : 029 -01 -06 degrees QTc Int : 394 ms Sinus bradycardia Cannot rule out Anterior infarct , age undetermined Abnormal ECG When compared with ECG of 06-AUG-2021 13:41, Questionable change in QRS axis Nonspecific T wave abnormality has replaced inverted T waves in Lateral leads Confirmed by GREG ORTIZ ([id number]) on 08/08/2021 12:26:43 PM Referred By: Joselito Bai Confirmed by:GREG ORTIZ at 1226 PATIENT NAME: MADHAVI WHITTAKER [facility] 2021-08-06 15:28:00 [facility] Hospitalist History Physical REPORT#:[id number] REPORT STATUS: Signed DATE:08/06/21 TIME: 1527 PATIENT: MADHAVI WHITTAKER UNIT #: [id number] ROOM/BED: [facility] : 63 AGE: 55 SEX: F ATTEND: Joselito Bai MD ADM AUTHOR: Joselito Bai MD * ALL edits or amendments must be made on the electronic/computer document * History of Present Illness HPI Chief complaint: Bradycardia. HPI: Patient is a 55-year-old morbidly obese female with known multiple medical problems including hypertension, asthma, atrial fibrillation, JULIUS, and diet- controlled diabetes mellitus who has been having episodes of bradycardia and pauses for the last few months. Initially it was suspected that it was due to obstructive sleep apnea and she was prescribed CPAP. She continued to have these episodes of bradycardia and pauses, mostly during the night therefore she was brought by her construction and maintenance inspector Dr. Ortiz to undergo pacemaker placement. Procedure was performed this morning and she is now admitted to the telemetry unit for overnight observation. She reports slight pain at the procedure site. She denies any other complaint. History Past Medical Surgical Hx Patient History: 1. Atrial fibrillation 2. HTN (hypertension) 3. Diet-controlled type 2 diabetes mellitus 4. Obstructive sleep apnea 5. Asthma, moderate persistent, well-controlled 6. Generalized osteoarthritis 7. Peripheral autonomic neuropathy due to DM 8. History of arthroplasty of right knee 9. S/P laparoscopic cholecystectomy 10. Tobacco smoker, 20 cigarettes or fewer per day 11. Drinks alcohol occasionally 12. Has 3 children Family History Additional family history: Father of complications of SBO; mother of ruptured AAA. Medication/Allergy-Vaccine Hx Medications: Home Medications: SPIRONOLACTONE (ALDACTONE) 25 MG PO DAILY GABAPENTIN (NEURONTIN) SIMVASTATIN (ZOCOR) 40 MG PO DAILY OMEPRAZOLE ER (PriLOSEC) 40 MG PO DAILY FUROSEMIDE (LASIX) 20 MG PO DAILY BUDESONIDE/FORMOTEROL (SYMBICORT 160/4.5 MCG/ACT 10.2GM) CARVEDILOL (COREG) LOSARTAN (COZAAR) APIXABAN (ELIQUIS) 5 MG PO BID Allergies: Coded Allergies: No Known Allergies (08/06/21) Review of Systems Constitutional: Denies: chills, fatigue, fever, generalized weakness, lethargy, malaise, recent wt loss. Respiratory: Denies: LUJAN (dyspnea on exertion), hemoptysis, non productive cough, parox nocturnal dyspnea, pleuritic pain, productive cough (sputum), SOB, wheezing. Cardiovascular: Denies: chest pain, LUJAN (dyspnea on exertion), edema, orthopnea, palpitations, parox nocturnal dyspnea. All systems rev neg: except as noted Physical Exam General appearance: awake, no acute distress, conversational Head/Eyes: atraumatic, clear cornea, normal conjunctiva/sclera, PERRL ENT: moist mucosal membranes, normal ear left, normal ear right Neck: non-tender, supple/no meningismus Cardiovascular: normal heart sounds, regular rate rhythm Respiratory: aerating well, clear to auscultation, symmetric expansion, no distress Abdomen: obese, non-tender, normal bowel sounds, soft, no distention Extremities: moves all, normal range of motion, no clubbing, no cyanosis, no edema Musculoskeletal: normal inspection, no muscle spasm Neuro/QUALITY HEAD: alert, oriented X 3, normal speech, no motor deficits Psychiatry: normal affect, normal judgment/insight, normal mood Results Findings/Data: Laboratory Tests: 08/06 08/06 0800 0455 Chemistry Sodium [...] % (Auto) (14 - 44 %) 35.2 [place] % (Auto) (4 - 13 %) 9.1 Eos % (Auto) (0 - 6 %) 0.9 Baso % (Auto) (0 - 2 %) 0.3 Neut # (Auto) (2.0 - 7.6 K/mm3) 3.15 Lymph # (Auto) (1.0 - 3.8 K/mm3) 2.05 [place] # (Auto) (0.1 - 0.8 K/mm3) 0.53 Eos # (Auto) (0.0 - 0.2 K/mm3) 0.05 Baso # (Auto) (0.0 - 0.2 K/mm3) 0.02 Immature Gran % (0.0 - 2.0 %) 0.3 Nucleated RBC % (0 - 1.0 %) 0.0 Nucleated RBCs # (Man) (0.0 - 0.1 K/mm3) 0.00 Serology SARS-CoV-2 Ag (Rapid) (Negative) NEGATIVE Laboratory Tests 08/06/21 0800: [Embedded Image Not Available] Radiology data: Recent Impressions: RADIOLOGY - XR CHEST 1V 08/06 1211 Report Impression - Status: SIGNED Entered: 08/06/2021 1227 IMPRESSION: 1. There is pulmonary vascular congestion with diffuse interstitial and mild alveolar infiltrates. This may be related to edema. Please correlate clinically. 2. Mild cardiomegaly. Impression By: Ludy Mancini Geiger, MD Results: labs reviewed, vital signs stable, rhythm personally rev'd, current med profile rev'd Diagnosis, Assessment Plan Problem List/A P: 1. Sick sinus syndrome s/p PPM; now post-procedure. 2. Atrial fibrillation 3. HTN (hypertension) 4. Diet-controlled type 2 diabetes mellitus 5. Obstructive sleep apnea 6. Asthma, moderate persistent, well-controlled 7. Generalized osteoarthritis 8. Peripheral autonomic neuropathy due to DM 9. Morbid obesity with BMI of 45.0-49.9, adult Free Text A P: - Admit to telemetry unit for overnight observation. - Pain meds prn. - Resume home meds. - Repeat CXR in am. - Interrogation of device in am. - Will order CPAP; patient thinks the setting of her home machine is "10". - Potassium has been replaced. - Labs in am. - Anticipate discharge home in am. Quality: Gen Med Crit Care Current Medications Current medication review: I attest that the foregoing medication list in the medical record is true, accurate, and complete to the best of my knowledge. VTE Prophylaxis VTE prophylaxis initiated: yes at 2243 RPT #:[id number] END OF REPORT [facility] 2021-08-06 13:41:00 [id number] [place] [id number] PATIENT NAME: MADHAVI WHITTAKER ADMIT DATE: 08/06/21 ACCOUNT NO: [id number] ROOM NO: [facility] AGE: 55 REPORT TYPE: ELECTROCARDIOGRAM SEX: F ADMITTING PHYSICIAN:Greg Ortiz MD ATTENDING PHYSICIAN:Greg Ortiz MD Order: [id number] Test Reason : S/P PPI Test Date/Time Stamp: SunAug 06 2021 13:41:32 Blood Pressure : / mmHG Vent. Rate : 064 BPM Atrial Rate : 064 BPM P-R Int : 170 ms QRS Dur : 090 ms QT Int : 404 ms P-R-T Axes : 060 062 040 degrees QTc Int : 416 ms Normal sinus rhythm with sinus arrhythmia Nonspecific T wave abnormality Abnormal ECG When compared with ECG of 06-AUG-2021 09:02, aberrant conduction is no longer present Confirmed by GREG ORTIZ ([id number]) on 08/06/2021 1:43:17 PM Referred By: Greg Ortiz Confirmed by:GREG ORTIZ at 1343 PATIENT NAME: MADHAVI WHITTAKER [facility] 2021-08-06 13:41:00 [place] [address] PATIENT NAME: MADHAVI WHITTAKER ADMIT DATE: 08/06/21 ACCOUNT NO: [id number] ROOM NO: Z.363 AGE: 55 REPORT TYPE: ELECTROCARDIOGRAM SEX: F ADMITTING PHYSICIAN:Joselito Bai MD ATTENDING PHYSICIAN:Joselito Bai MD Order: [id number] Test Reason : S/P PPI Test Date/Time Stamp: [facility] Aug 06 2021 13:41:32 Blood Pressure : / mmHG Vent. Rate : 064 BPM Atrial Rate : 064 BPM P-R Int : 170 ms QRS Dur : 090 ms QT Int : 404 ms P-R-T Axes : 060 062 040 degrees QTc Int : 416 ms Normal sinus rhythm with sinus arrhythmia Nonspecific T wave abnormality Abnormal ECG When compared with ECG of 06-AUG-2021 09:02, aberrant conduction is no longer present Confirmed by GREG ORTIZ ([id number]) on 08/08/2021 12:26:39 PM Referred By: Greg Ortiz Confirmed by:GREG ORTIZ at 1226 PATIENT NAME: MADHAVI WHITTAKER [facility] 2021-08-06 11:31:00 [id number] [place] [id number] PATIENT NAME: MADHAVI WHITTAKER ADMIT DATE: 08/06/21 ACCOUNT NO: [id number] ROOM NO: AGE: 55 REPORT TYPE: CARDIAC CATHETERIZATION REPORT SEX: F ADMITTING PHYSICIAN: ATTENDING PHYSICIAN:Gerg Ortiz MD PROCEDURE DATE: 08/06/2021 [facility] SHE[facility] OPERATOR: Greg Ortiz M.D. TITLE OF THE PROCEDURE: Dual-chamber permanent pacemaker implantation. INDICATION FOR THE PROCEDURE: Tachybrady syndrome, symptomatic sick sinus syndrome, paroxysmal atrial fibrillation, and documented long pauses. ESTIMATED BLOOD LOSS: Minimal. COMPLICATIONS: None. CONTRAST: None. ANESTHESIA: Conscious sedation with Versed and fentanyl and 1% lidocaine for local anesthesia. FINAL DIAGNOSIS: Successful dual-chamber permanent pacemaker implantation. RECOMMENDATIONS: Overnight observation. PROCEDURE IN DETAIL: Please see enclosed report in the chart. Dictated By: Greg Ortiz MD WT: CATH:DUNIA/TONYA/AVEL Conf#: [id number]/DID#: [id number] Authenticated by Greg Ortiz MD On 08/06/2021 11:47:20 AM at 1147 PATIENT NAME: MADHAVI WHITATKER [facility] 2021-08-06 09:02:00 [id number] [place] [address] PATIENT NAME: MADHAVI WHITTAKER ADMIT DATE: 08/06/21 ACCOUNT NO: [id number] ROOM NO: AGE: 55 REPORT TYPE: ELECTROCARDIOGRAM SEX: F ADMITTING PHYSICIAN: ATTENDING PHYSICIAN:Greg Ortiz MD Order: [id number] Test Reason : SSS Test Date/Time Stamp: SunAug 06 2021 09:02:06 Blood Pressure : / mmHG Vent. Rate : 065 BPM Atrial Rate : 065 BPM P-R Int : 146 ms QRS Dur : 106 ms QT Int : 420 ms P-R-T Axes : 036 051 046 degrees QTc Int : 436 ms Sinus rhythm with premature atrial complexes with aberrant conduction Nonspecific T wave abnormality Abnormal ECG No previous ECGs available Confirmed by GREG ORTIZ ([id number]) on 08/06/2021 9:32:57 AM Referred By: Greg Ortiz Confirmed by:GREG ORTIZ at 0932 PATIENT NAME: MADHAVI WHITTAKER [facility] 2021-08-05 07:13:00 [id number] [place] [address] PATIENT NAME: MADHAVI WHITTAKER ADMIT DATE: ACCOUNT NO: [id number] ROOM NO: AGE: 55 REPORT TYPE: PREOP HISTORY AND PHYSICAL SEX: F ADMITTING PHYSICIAN: ATTENDING PHYSICIAN:Greg Ortiz MD PATIENT NAME: MADHAVI WHITTAKER ADMIT DATE:08/06/2021 ADMISSION DATE: 08/06/2021 HELPER SHEAR OPERATOR: Greg Ortiz MD REASON FOR ADMISSION: Sick sinus syndrome with long pauses; for dual-chamber permanent pacemaker implantation in a patient with paroxysmal atrial fibrillation. HISTORY OF PRESENT ILLNESS: Madhavi is a 55-year-old lady with a long history of paroxysmal atrial fibrillation and sick sinus syndrome with pauses. The patient was evaluated back in November and her heart rate at night went down to 18 and she had 4.2 second pauses. At that time, she was treated with CPAP and came back for followup and she continues to have significant pauses with as long as 4.7 seconds and the lowest heart rate at night was 18. The patient has paroxysmal atrial fibrillation, so she has tachybrady syndrome. She has symptomatic palpitations and dyspnea. She is here for dual-chamber permanent pacemaker implantation. The patient has a history of mild carotid disease, hypertensive heart changes on the echo with normal ejection fraction and mild mitral regurgitation and mild aortic insufficiency. She had a negative stress test in 2018 and a negative nuclear in 2019. There is no history of angina. She does have dyspnea. There is no history of TIAs or stroke or congestive heart failure. PAST MEDICAL HISTORY: Remarkable for hypertension, hyperlipidemia, paroxysmal atrial fibrillation, PVCs, diabetes, arthritis, sciatica, neuropathy, and sleep apnea, on CPAP as well as asthma. PAST SURGICAL HISTORY: She has had tubal ligation, cholecystectomy, hysterectomy, right knee replacement, and hernia repair in January 2020. ALLERGIES: NO KNOWN DRUG ALLERGIES. MEDICATIONS: She takes spironolactone 25 mg daily, gabapentin, aspirin, simvastatin 40 mg daily, omeprazole 40 mg daily, Lasix 20 mg daily, Symbicort, carvedilol 6.25 mg b.i.d., the dose has been cut down. Eliquis 5 mg b.i.d. is on hold and losartan 50 mg daily. She has been taken off amiodarone due to the bradycardia. SOCIAL HISTORY: The patient is an active smoker. There is no history of alcohol or street drug use. PATIENT NAME: MADHAVI WHITTAKER FAMILY HISTORY: Negative for premature atherosclerosis. REVIEW OF SYSTEMS: Remarkable for the above in addition to asthma, sleep apnea, anemia, sciatica, arthritis. She uses walker for ambulation. She had a mini stroke back in May 2008. No recent TIAs or strokes. PHYSICAL EXAMINATION: GENERAL: Reveals a pleasant middle-aged lady, in no acute distress. VITAL SIGNS: Blood pressure 145/95, pulse 75 and regular, respiratory rate 18 and unlabored, and temperature afebrile. HEENT: Head, atraumatic and normocephalic. Eyes and ENT examination within normal for age. NECK: Supple. No jugular venous distention, bruits, or lymphadenopathy. Normal upstroke. LUNGS: Clear and resonant. Decreased air entry at the bases noted. HEART: Regular rate and rhythm with I/ systolic ejection murmur and I/ diastolic murmur at the mitral and aortic area respectively. No gallops. ABDOMEN: Soft, obese. No tenderness. No organomegaly. No masses or bruits. EXTREMITIES: A 2+ distal pulses. No edema, cyanosis, or clubbing. NEUROLOGIC: Alert and oriented x3. Examination appears to be nonfocal. LABORATORY DATA: Pending. Noninvasive cardiovascular workup enclosed. IMPRESSION: This is a 55-year-old lady with tachybrady syndrome, paroxysmal atrial fibrillation, sick sinus syndrome, sleep apnea, on CPAP with extreme bradycardia on Holter monitor, heart rate down to 18 with long pauses 4.7 seconds. The patient is here for dual-chamber permanent pacemaker implantation. The recommendation is to proceed with the above-mentioned procedure. The patient is right handed, so we will proceed on the left side. The recommendation is to proceed with the above. The risks and benefits of the planned procedures were discussed in detail with the patient and she is willing to proceed. Rest as per orders. The patient was again advised strongly to quit smoking. Dictated By: Greg Ortiz MD WT: PREOPHP:ARAM/TONYA/AVEL Conf#: [id number]/DID#: [id number] Authenticated and Edited by Greg Ortiz MD On 08/05/21 4:18:57 PM at 0421 PATIENT NAME: MADHAVI WHITTAKER [facility]
--- NOTE | 2024-10-28 14:22 | RAD REPORT ---
EXAMINATION: US LEFT LOWER EXTREMITY VENOUS DOPPLER CLINICAL INDICATION: Pain;Swelling TECHNIQUE: Complete bilateral duplex sonography of the LEFT lower extremity veins was performed. The examination included compression for vein patency, color Doppler imaging and flow augmentation in response to distal compression of the distal external iliac, common femoral, femoral, popliteal, tibi al, and great and small saphenous veins. COMPARISON: No prior exam. FINDINGS: Duplex sonography testing of the veins of the LEFT lower extremity was performed. Color flow imaging shows all veins to be compressible with [id number] color filling. Pulsatile and phasic flow is present within all lower extremity deep and superficial veins examined. IMPRESSION: There is no deep vein or superficial vein thrombosis.
--- NOTE | 2024-10-28 14:35 | RAD REPORT ---
EXAMINATION: ONE VIEW CHEST XR CLINICAL INDICATION: CHEST PAIN TECHNIQUE: Frontal chest projection is submitted. Examination is limited by patient positioning and t echnique. COMPARISON: 03/06/2024 FINDINGS: Mild bilateral pulmonary edema. The heart is mildly enlarged with dual lead pacer device present. No displaced fractures identified. IMPRESSION: Mild CHF.
[2024-10-28 14:56] LABS: Absolute Eosinophils 0.1 K/uL (0-0.5); Absolute Lymphocytes (CBC) 1.9 K/uL (0.7-4.9); Absolute Monocytes 0.4 K/uL (0.1-1.3); Absolute Neutrophil 2.3 K/uL (1.8-8.0); Basophils % 0.9 % (0-1.3); Eosinophils % 1.5 % (0-4.4); Hematocrit 45.6 % (36.0-45.0); Hemoglobin 14.7 g/dL (12.0-15.0); Lymphocytes % 39.4 % (15.3-44.8); MCH 29.4 pg (27.0-35.0); MCHC 32.3 g/dL (32.0-36.0); MCV 90.9 fL (80-100); MPV 9.8 fL (7.6-11.3); Monocytes % 9.5 % (3.3-12.3); Neutrophils % 48.7 % (41.7-73.7); Nucleated Red Blood Cells % 0.1 % (0-0); Platelets 100 thou/uL (152-406); RBC Red Blood Cell Count 5.02 M/uL (3.86-4.86); Red Cell Distribution Width 13.5 % (12.1-15.2)
[2024-10-28 15:00] LABS: PT Prothrombin Time 12.8 SECONDS (9.4-12.5); Protime INR 1.15
[2024-10-28 15:06] LABS: Anion Gap 8.3 mEq/L (5.0-15.0); Potassium 3.3 mEq/L (3.5-5.1); Troponin High Sensitivity 5.4 pg/mL (<58.9)
--- NOTE | 2024-10-28 15:54 | EDPHYS ---
Physician Documentation [facility] Name: Madhavi Michael Age: 58 yrs Sex: Female : 1965 Arrival Date: 10/28/2024 Time: 13:22 Bed 6 Private MD: ED Physician Marv Sanders HPI: 10/28 13:51 This 58 yrs old Black Female presents to ER via Wheelchair with complaints of Leg Pain kb - Left. 13:51 Patient is a 58-year-old female who presents for left lower extremity edema and pain kb that woke her up from sleep this morning. States she sent pictures to her nurse and was told to come in for pitting edema. Patient denies pain or swelling to the right leg. States she has a weird sensation in her throat but denies any real pain or shortness of breath. States she does have a history of CHF, takes Eliquis and Lasix.. Historical: - Allergies: 13:41 No Known Allergies; kc6 - PMHx: 13:41 Asthma; Atrial Fib; COPD; CVA; Diabetes - NIDDM; Leaking Veins x2 Right Leg; kc6 neuropathy; sciatica; Sleep Apnea; Congestive heart failure; - PSHx: 13:41 pacemaker; Cholecystectomy; hysterectomy; Arthroplasty of knee; kc6 - Immunization history:: Adult Immunizations up to date. - Infectious Disease History:: Denies. - Social history:: Smoking status: Patient reports the use of cigarette tobacco products, smokes one-half pack cigarettes per day. ROS: 13:50 Constitutional: As per HPI kb Exam: 13:50 Constitutional: This is a well developed, well nourished patient who is awake, alert, kb and in no acute distress. Head/Face: Normocephalic, atraumatic. ENT: Moist Mucous membranes Cardiovascular: Regular rate Respiratory: Respirations even and unlabored. No increased work of breathing. Talking in full sentences Abdomen/GI: Soft, non-tender. No distention Skin: Warm, dry with normal turgor. Normal color. Neuro: Awake and alert, GCS 15, oriented to person, place, time, and situation. 13:50 Musculoskeletal/extremity: Extremities: grossly normal except: noted in the left calf and left ruelas: pain, swelling, tenderness, ROM: intact in all extremities, Circulation is intact in all extremities. Sensation intact. DVT Exam: negative Homans' sign noted on exam, no appreciated bluish discoloration, no erythema, no increased warmth, pain, of the left leg, swelling, of the left leg, tenderness, of the left leg, 15:03 ECG was reviewed by the Attending Physician. kb Vital Signs: 13:40 BP 135 / 91; Pulse 74; Resp 17 S; Temp 98.5(O); Pulse Ox 99% on R/A; Weight 122.47 kg kc6 (R); Height 5 ft. 7 in. (R); Pain 10/10; 14:57 Pulse 72; Resp 18; Pulse Ox 97% on R/A; ap3 15:30 BP 122 / 84; Pulse 69; Resp 14; Pulse Ox 100% on R/A; ap3 13:40 Body Mass Index 42.29 (122.47 kg, 170.18 cm) kc6 13:40 Pain Scale: Adult kc6 MDM: 13:33 Medical Screening Exam initiated kb 13:51 Data reviewed: vital signs, nurses notes. kb 15:52 Differential diagnosis: dvt, chf exacerbation. Consideration of Admission/Observation kb Escalation of care including admission/observation considered. admission considered but resp even and unlabored, oxygen saturation 100% on room air. Pt educated on strict return precautions including erythema, warmth, fever, shortness of breath. Verbal understanding received. . Counseling: I had a detailed discussion with the patient and/or guardian regarding the historical points, exam findings, and any diagnostic results supporting the discharge/admit diagnosis, lab results, radiology results, the need for outpatient follow up, a family practitioner, to return to the emergency department if symptoms worsen or persist or if there are any questions or concerns that arise at home. 10/28 13:49 Order name: Basic Metabolic Panel; Complete Time: 15:07 kb 10/28 13:49 Order name: CBC with Diff; Complete Time: 15:04 kb 10/28 13:49 Order name: NT PRO-BNP; Complete Time: 15:07 kb 10/28 13:49 Order name: PT-INR; Complete Time: 15:03 kb 10/28 13:49 Order name: Troponin HS; Complete Time: 15:07 kb 10/28 13:49 Order name: XRAY Chest (1 view); Complete Time: 14:35 kb 10/28 13:49 Order name: US Extremity Venous Unilateral Ltd; Complete Time: 14:25 kb 10/28 13:49 Order name: Cardiac monitoring; Complete Time: 14:31 kb 10/28 13:49 Order name: EKG - Nurse/Tech; Complete Time: 14:54 kb 10/28 13:49 Order name: IV Saline Lock; Complete Time: 14:31 kb 10/28 13:49 Order name: Labs collected and sent; Complete Time: 14:31 kb 10/28 13:49 Order name: O2 Per Protocol; Complete Time: 14:31 kb 10/28 13:49 Order name: O2 Sat Monitoring; Complete Time: 14:31 kb EC:03 Rate is 66 beats/min. Rhythm is regular. QRS [place] is Normal. RI interval is normal at kb 178 msec. QRS interval is normal at 88 msec. QT interval is normal at 421 msec. Administered Medications: 16:00 Drug: Potassium Chloride PO 40 mEq PO once Route: PO; bp 16:31 Follow up: Response: No adverse reaction bp Disposition Summary: 10/28/24 15:54 Discharge Ordered Notes: Location: Home kb Condition: Stable kb Diagnosis - Pain in left lower leg kb - Edema, unspecified kb Followup: kb - With: Emergency Department - When: As needed - Reason: Worsening of condition Followup: kb - With: Private Physician - When: 2 - 3 days - Reason: Recheck today's complaints, Continuance of care, Re-evaluation by your physician Discharge Instructions: - Discharge Summary Sheet kb - Peripheral Edema kb Forms: - Medication Reconciliation Form kb - Antibiotic Education kb - Prescription Opioid Use kb - Patient Portal Instructions kb - Leadership Thank You Letter kb Signatures: Dispatcher [employer] EDMS Linda Colbert, AUTOMOTIVE DIAGNOSTIC TECHNICIAN-C AUTOMOTIVE DIAGNOSTIC TECHNICIAN-Enrique Root, RN RN Sommer Leach RN RN kc6 Corrections: (The following items were deleted from the chart) 13:50 13:50 BASIC METABOLIC PANEL+C.LAB.BRZ ordered. EDMS EDMS 13:50 13:50 CBC+H.LAB.BRZ ordered. EDMS EDMS 13:50 13:50 PROBNP+C.LAB.BRZ ordered. EDMS EDMS 13:50 13:50 PROTIME (+INR)+COAG.LAB.BRZ ordered. EDMS EDMS 13:50 13:50 Troponin High Sensitivity+C.LAB.BRZ ordered. EDMS EDMS 13:50 13:50 Chest Single View+RAD.RAD.BRZ ordered. EDMS EDMS 13:50 13:50 Extremity Venous Uni Ltd+US.RAD.BRZ ordered. EDMS EDMS 15:55 15:52 Consideration of Admission/Observation Escalation of care including kb admission/observation considered. admission considered but resp even and unlabored, oxygen saturation 100% on room air. . kb
--- NOTE | 2024-10-28 15:54 | ER ---
Nurse's Notes [facility] Name: Madhavi Michael Age: 58 yrs Sex: Female : 1965 Arrival Date: 10/28/2024 Time: 13:22 Bed 6 Private MD: Diagnosis: Pain in left lower leg;Edema, unspecified Presentation: 10/28 13:40 Chief complaint: Patient states: her friend that is a nurse told her she has "pitting kc6 edema" to the LLE. pt states she woke up with it today and it is painful. reports hx of CHF. Coronavirus screen: At this time, the client does not indicate any symptoms associated with coronavirus-19. Ebola Screen: No symptoms or risks identified at this time. Initial Sepsis Screen: Does the patient meet any 2 criteria? No. Patient's initial sepsis screen is negative. Does the patient have a suspected source of infection? No. Patient's initial sepsis screen is negative. Risk Assessment: Do you want to hurt yourself or someone else? Patient reports no desire to harm self or others. Onset of symptoms was October 28, 2024. 13:40 Method Of Arrival: Wheelchair kc6 13:40 Acuity: SISSY 3 kc6 Historical: - Allergies: 13:41 No Known Allergies; kc6 - PMHx: 13:41 Asthma; Atrial Fib; COPD; CVA; Diabetes - NIDDM; Leaking Veins x2 Right Leg; kc6 neuropathy; sciatica; Sleep Apnea; Congestive heart failure; - PSHx: 13:41 pacemaker; Cholecystectomy; hysterectomy; Arthroplasty of knee; kc6 - Immunization history:: Adult Immunizations up to date. - Infectious Disease History:: Denies. - Social history:: Smoking status: Patient reports the use of cigarette tobacco products, smokes one-half pack cigarettes per day. Screenin:31 [facility] ED Fall Risk Assessment (Adult) History of falling in the last 3 months, ap3 including since admission No falls in past 3 months (0 pts) Confusion or Disorientation No (0 pts) Intoxicated or Sedated No (0 pts) Impaired Gait Yes (1 pt) Mobility Assist Device Used No (0 pt) Altered Elimination No (0 pt) Score/Fall Risk Level 0 - 2 = Low Risk Oriented to surroundings, Maintained a safe environment, Educated pt \\T\\ family on fall prevention, incl call for assistance when getting out of bed, Assessed \\T\\ reinforced patient's understanding of fall precautions, Hourly rounding (assess needs \\T\\ fall precautionary measures) done, Used ambulatory aids as needed (educated on \\T\\ assisted with), Used gait belt as appropriate. Abuse screen: Denies threats or abuse. Nutritional screening: No deficits noted. Tuberculosis screening: No symptoms or risk factors identified. Assessment: 14:31 General: Appears in no apparent distress. Behavior is calm, cooperative, appropriate ap3 for age. Pain: Complains of pain in left leg. Neuro: Level of Consciousness is awake, alert, obeys commands, Oriented to person, place, time, situation, Appropriate for age. Cardiovascular: Patient's skin is warm and dry. Respiratory: Airway is patent Respiratory effort is even, unlabored, Respiratory pattern is regular, symmetrical. 15:34 Reassessment: No changes from previously documented assessment. Patient and/or family ap3 updated on plan of care and expected duration. Pain level reassessed. Vital Signs: 13:40 BP 135 / 91; Pulse 74; Resp 17 S; Temp 98.5(O); Pulse Ox 99% on R/A; Weight 122.47 kg kc6 (R); Height 5 ft. 7 in. (R); Pain 10/10; 14:57 Pulse 72; Resp 18; Pulse Ox 97% on R/A; ap3 15:30 BP 122 / 84; Pulse 69; Resp 14; Pulse Ox 100% on R/A; ap3 13:40 Body Mass Index 42.29 (122.47 kg, 170.18 cm) kc6 13:40 Pain Scale: Adult [facility] ED Course: 13:24 Patient arrived in ED. ra3 13:33 Linda Colbert FNP-C is PHCP. kb 13:33 Marv Sanders MD is Attending Physician. kb 13:41 Triage completed. kc6 13:41 Arm band placed on. kc6 14:17 Enrique Roca, DAKSHA is Primary Nurse. bp 14:20 US Extremity Venous Unilateral Ltd In Process Unspecified. EDMS 14:28 XRAY Chest (1 view) In Process Unspecified. EDMS 14:30 Patient has correct armband on for positive identification. Bed in low position. Call ap3 light in reach. Side rails up X 1. Client placed on continuous cardiac and pulse oximetry monitoring. NIBP monitoring applied. compliance monitor on. Pulse ox on. NIBP on. 14:31 Inserted saline lock: 22 gauge in right antecubital area, using aseptic technique. ap3 Blood collected. Flushed with 10 mL NS. 14:54 EKG done, by ED staff, reviewed by Linda REEVES. ap3 16:30 No provider procedures requiring assistance completed. IV discontinued, intact, ap3 bleeding controlled, No redness/swelling at site. Pressure dressing applied. 16:31 Provided Education on: discharge instructions. ap3 Administered Medications: 16:00 Drug: Potassium Chloride PO 40 mEq PO once Route: PO; bp 16:31 Follow up: Response: No adverse reaction bp Medication: 14:32 VIS not applicable for this client. ap3 Outcome: 15:54 Discharge ordered by . kb 16:30 Discharged to home ambulatory, ap3 16:30 Condition: good 16:30 Discharge instructions given to patient, Instructed on discharge instructions, follow up and referral plans. Demonstrated understanding of instructions, follow-up care, 16:31 Patient left the ED. ap3 Signatures: Dispatcher [employer] EDMS Linda Colbert, LALA ARAUZ-Enrique Root RN RN Becca Celaya RN RN ap3 Sommer Vásquez RN RN [email or web address] Marion Ennis ra3
[2024-10-28] MEDS ORDERED: POTASSIUM CL SA 10 MEQ TAB PO ONE (16:05)
[2024-10-28 20:52] VITALS: TEMP 98.5
[2024-10-28 20:54] VITALS: BP 122/84; O2SAT 100
== END 2024-10-28 16:31 | disposition home or self-care (01) ==
LOC: ER 13:22
DX: M79.662 Pain in left lower leg (principal); R60.9 Edema, unspecified; I50.9 Heart failure, unspecified; I48.91 Unspecified atrial fibrillation; F17.210 Nicotine dependence, cigarettes, uncomplicated; Z95.0 Presence of cardiac pacemaker
CPT/HCPCS: 36415; 71045; 80048; 83880; 84484; 85025; 85610; 93971; 99284

== ENCOUNTER 2025-04-15 14:57 | Observation (INO) | payer MEDICAID ==
--- OUTSIDE RECORDS SUMMARY | 2025-04-15 15:07 | XMS REPORT | Continuity of Care Document ---
Author Name Unknown Address [address] [facility] [address] [place] [address] [facility] Address [address] [facility] [address] [place] [address] Care Team Providers Care Bacon Skin Lifter Name Role Phone Fredy MARTINEZ, Antwan Perla Primary Care Physician Xochilt Le Attending Clinician Unavailable Sofi Rush Attending Clinician Unavailable Halle Shabazz Attending Clinician Unavailable BALWINDER SINGLETON Attending Clinician UnavailBALWINDER Richardson Attending Clinician UnavailBalwinder Richardson MD Attending Clinician [phone] Mayur Zurita DNP Attending Clinician [phone] Peng Strange MD Attending Clinician [phone] Doctor Unassigned, [place] Attending Clinician U Laura Day Attending Clinician Unavailanthony Dailey RN, Anny Reynoso Attending Clinician Unav ailIVY Rothman Attending Clinician Unavailable IVY VIVAR Attending Clinician Unavailable Ivy Vivar PA-C Attending Clinician [phone] ESTEPHANIA CORRALES Attending Clinician Unavailable Fortino MARTINEZ, Estephania Granados Attending Clinician [phone] Yanet Simon MD Attending Clinician [phone] PENG STRANGE Attending Clinician Unavail able PENG STRANGE Attending Clinician Unavail able Doctor Unassigned, [place] Attending Clinician U heatherailMAYUR Sharif Attending Clinician Unavailable [email or web address] Attending Clinician Unavailable OPAL GARDNER Attending Clinician Unavailable Prasad Alarcon MD Attending Clinician + [phone] PRASAD ALARCON Attending Clinician Viviana Chavira MA Attending Clinician UnavailBalwinder Arnett MD Attending Clinician [phone] TAMI MICHELE Attending Clinician Unavailable Opal Gardner MD Attending Clinician [phone] Ashlie CROOKS, Anny Reynoso Attending Clinician Unasakina Frankooq, [place] Attending Clinician Unavailable 2, [facility] Attending Clinician Unavailable Inga Lazo MA Attending Clinician UnavailJESSICA Will Attending Clinician Unavailable Peng Strange MD Attending Clinician [phone] IVY VIVAR Admitting Clinician Unavailable PENG STRANGE Admitting Clinician Unavail able [email or web address]_M Admitting Clinician Unavailable PRASAD ALARCON Admitting Clinician Prasad Arango MD Admitting Clinician + [phone] OPAL GARDNER Admitting Clinician Unavailable Joselito Bai Admitting Clinician Unavailable Payers Payer Name Policy Type Policy Number Effective Date Expirati on Date Source [facility] STAR PLUS [id number] 2015 00:00:00 [facility] C1 [id number] [id number] [id number] [id number] 2017 00:00:00 [facility]STAR [facility] C1 [id number] 2017 00:00:00 [facility] Problems Condition Name Condition Details Condition Category Status Onset Date Resolution Date Last Treatment Date Treating Clinician Comments Source Verruca vulgaris Verruca vulgaris Disease Active 03-17 00:00: 00 [facility] Lymphedema of lower extremity Lymphedema of lower extremity Disease Active 2021-11 00:00: 00 [facility] Peripheral venous insufficie ncy Peripheral venous insufficie ncy Disease Active 2021-11 00:00: 00 [facility] Varicose veins of lower extremity Varicose veins of lower extremity Disease Active 12-26 00:00: 00 [facility] Total knee replacemen t status Total knee replacemen t status Disease Active 05-01 00:00: 00 [facility] Knee pain, right Knee pain, right Disease Active 03-15 00:00: 00 [facility] Knee pain, right Knee pain, right Disease Active 03-15 00:00: 00 [facility] Abdominal distension Abdominal distension Disease Active 05-31 00:00: 00 [facility] Flank pain Flank pain Disease Active 05-31 00:00: 00 [facility] Asthma Asthma Disease Active 01-21 00:00: 00 Overview: Formaterlinda g of this note might be different from the original. 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 H/O TIA (transient ischemic attack) and stroke Problem [facility] Nicotine dependence Cigarette nicotine dependence without complicati on Problem [facility] [id number] Acquired torticolli s Problem [facility] Asthma without status asthmaticu s Asthma, unspecifie d asthma severity, unspecifie d whether complicate d, unspecifie d whether persistent Problem [facility] [id number] Cervical radiculopa thy Problem [facility] [id number] Gastroesop hageal reflux disease without esophagiti s Problem [facility] [id number] Gingivitis Problem Comm on [facility] Osteoarthr osis, localized, secondary, involving lower leg Osteoarthr osis, localized, secondary, involving lower leg Problem [facility] [id number] Seasonal allergic rhinitis, unspecifie d trigger Problem [facility] Diabetes mellitus type 2 in nonobese Diabetes mellitus type 2 in nonobese Problem [facility] Lump Lump Problem [facility] [id number] Paroxysmal atrial fibrillati on Problem [facility] [id number] Morbid (severe) obesity due to excess calories Problem [facility] [id number] Abscess of vagina Problem [facility] Anemia Anemia Problem [facility] Edema Edema Problem [facility] Hypotensio n due to drugs Hypotensio n due to drugs Problem [facility] Hyperlipid emia Hyperlipid emia Problem [facility] [id number] Recurring cold staphyloco ccal abscesses Problem [facility] Gastroesop hageal reflux disease GERD (gastroeso phageal reflux disease) Problem [facility] [id number] Stress incontinen ce Problem [facility] Obstructiv e sleep apnea Obstructiv e sleep apnea Problem [facility] Type II diabetes mellitus without complicati on Controlled type 2 diabetes mellitus without complicati on, without long-term current use of insulin Problem [facility] Osteoarthr itis Osteoarthr itis Problem [facility] [id number] Decreased mobility Problem [facility] [id number] Hypertensi ve heart and chronic kidney disease without heart failure, with stage 1 through stage 4 chronic kidney disease, or unspecifie d chronic kidney disease Problem [facility] Long-term current use of anticoagul ant Anticoagul ated Problem [facility] [id number] Chronic kidney disease, stage 3a Problem [facility] Essential hypertensi on Elevated blood pressure reading with diagnosis of hypertensi on Problem [facility] [id number] Acute right-side d low back pain without sciatica Problem [facility] [id number] Dysuria Problem [facility] [id number] Thrombocyt openic Problem [facility] [id number] History of cholecyste ctomy Problem [facility] [id number] Atypical chest pain Problem [facility] Hypertensi on HTN (hypertens ion) Problem [facility] [id number] Facial pain Problem [facility] Morbid obesity Morbid obesity Problem [facility] [id number] Other chronic pain Problem [facility] [id number] Diverticul osis Problem [facility] Peripheral neuropathy Peripheral neuropathy Problem [facility] [id number] Proteus (mirabilis ) (morganii) as the cause of diseases classified elsewhere Problem [facility] [id number] Acute cystitis with hematuria Problem [facility] [id number] Pacemaker Problem Comm on [facility] Allergic rhinitis Non-season al allergic rhinitis, unspecifie d trigger Problem [facility] Acute exacerbati on of chronic obstructiv e airways disease Chronic obstructiv e pulmonary disease with acute exacerbati on Problem [facility] Thrombocyt openia Thrombocyt openia Problem [facility] [id number] Chronic fatigue Problem [facility] [id number] Chronic pain syndrome Problem [facility] [id number] Smoking greater than 30 pack years Problem [facility] Ileus, postoperat beckie Ileus, postoperat beckie Disease Resolve d 06-03 00:00: 00 2022-04-20 00:00:00 2022-04-20 14:25:31 [facility] Preoperati ve clearance Preoperati ve clearance Disease Resolve d 02-28 00:00: 00 2022-04-20 00:00:00 2022-04-20 14:25:15 [facility] Excessive or frequent menstruati on Excessive or frequent menstruati on Disease Resolve d 01-21 00:00: 00 2021-03-11 00:00:00 2021-03-11 18:46:20 [facility] Fibroids Fibroids Disease Resolve d 01-21 00:00: 00 2021-03-11 00:00:00 2021-03-11 18:46:27 [facility] Allergies, Adverse Reactions, Alerts Allergy Name Allergy Type Status Severity Reaction(s) Onset Date Inactive Date Treating Clinician Comments Source No Known Allergie s DA Active U 08-06 00:00: 00 [facility] No Known Allergie s DA Active U 08-06 00:00: 00 [facility] NO KNOWN ALLERGIE S Drug Class Active [facility] Family History Family Member Diagnosis Comments Start Date Stop Date Sourc e Natural [facility] Hy[facility] Social History Social Habit Start Date Stop Date Quantity Comments Source [facility] ASSERTION Not [facility] History of tobacco use Cigarette Smoker [facility] Sex Assigned At [facility] History of Social function 2025-04-08 00:00:00 2025-04-08 00:00:00 [facility] Alcoholic beverage intake 2025-04-08 00:00:00 2025-04-08 00:00:00 0 /d [facility] Cigarettes smoked current (pack per day) - Reported 2024-06-30 00:00:00 2024-06-30 00:00:00 [facility] Cigarette pack-years 2024-06-30 00:00:00 2024-06-30 00:00:00 [facility] Tobacco use and exposure 2024-06-30 00:00:00 2024-06-30 00:00:00 Smokeless tobacco non-user [facility] Alcohol intake 2024-03-25 00:00:00 2024-03-25 00:00:00 0 /d [facility] Exposure to SARS-CoV-2 (event) 2023-02-19 00:00:00 2023-03-01 12:51:00 Not sure [facility] Tobacco Comment 2022-10-30 00:00:00 2022-10-30 00:00:00 1 pack in 2 days [facility] Smoking Status Start Date Stop Date Source Tobacco smoking consumption unknown [facility] Current Smoker 2025-02-11 00:00:00 [facility] Medications Ordered Medication Name Filled Medication Name Start Date Stop Date Current Medication? Ordering Clinician Indication Dosage Frequency Signature (SIG) Comments Components Source methylPREDN ISolone (MEDROL, TIMOTHY,) 4 mg tablets 04-08 00:00: 00 Yes [id number] 84mg Take 21 tablets by mouth SEE-INSTRU CTIONS. follow package directions [facility] cyclobenzap rine 10 mg tablet 04-08 00:00: 00 Yes [id number] 10mg Take 1 tablet by mouth in the morning and 1 tablet at noon and 1 tablet in the evening. [facility] nortriptyli ne 25 mg capsule 03-23 00:00: 00 Yes [id number] 25mg TAKE 1 CAPSULE BY MOUTH EVERYDAY AT BEDTIME [facility] Symbicort 160 mcg-4.5 mcg/actuati on HFA aerosol inhaler - 00:00: 00 Yes 2mcg/ac tuation [facility] fluticasone furoate 27.5 mcg/actuati on nasal spray,suspe nsion 02-23 00:00: 00 Yes 1mcg/ac tuation [facility] furosemide 80 mg tablet 3- 00:00: 00 Yes mg [facility] GaviLyte-G 236 gram-22.74 gram-6.74 gram-5.86 gram oral solution 3-07 00:00: 00 Yes -5.86 gram [facility]iel Renee gabapentin 600 mg tablet 3- 00:00: 00 Yes mg [facility] tizanidine 4 mg tablet 3- 00:00: 00 Yes mg [facility] hydrocodone 10 mg-acetamin ophen 325 mg tablet 3-05 00:00: 00 Yes mg [facility] nortriptyli ne 25 mg capsule 3- 00:00: 00 Yes mg [facility] rosuvastati n 20 mg tablet 3- 00:00: 00 Yes mg [facility]iel [facility]enee carvedilol 12.5 mg tablet 2-24 00:00: 00 Yes mg aDriel Renee amiodarone 200 mg tablet 2-24 00:00: 00 Yes mg [facility] omeprazole 40 mg capsule,del ayed release 2-24 00:00: 00 Yes mg [facility] montelukast 10 mg tablet 2-24 00:00: 00 Yes mg [facility]iel [facility]ene[facility] losartan 100 mg tablet 2-24 00:00: 00 Yes mg [facility]iel Renee metformin ER 500 mg tablet,exte nded release 24 hr 2-03 00:00: 00 Yes mg [facility]iel Renee nortriptyli ne 25 mg capsule 2023-11 00:00: 00 03-23 00:00 :00 No [id number] 25mg TAKE 1 CAPSULE BY MOUTH EVERYDAY AT BEDTIME [facility] potassium chloride ER 20 mEq tablet,exte nded release(par t/cryst) 2023-11 1 00:00: 00 Yes mEq [facility] Ibuprofen 800 MG Ibuprofen 800 MG 2023-11 0-24 00:00: 00 No 1{table t_with_ food_or _milk} TID Ibuprofen 800 MG gentamicin 0.1 % ointment 07-10 00:00: 00 Yes [id number] Apply to area(s) daily. On ear wound until it heals. [facility] nortriptyli ne 25 mg capsule 07-08 00:00: 00 10-06 00:00 :00 No [id number] 25mg Take 1 capsule by mouth at bedtime. [facility] apixaban 2.5 mg tablet 03-25 10:46: 46 Yes 2.5mg Take 1 tablet by mouth in the morning. [facility] omeprazole 40 mg capsule 03-25 10:46: 46 Yes 40mg Take 1 capsule by mouth in the morning. [facility] nystatin-tr iamcinolone cream 03-17 00:00: 00 04-01 04:59 :00 No [id number] Apply to area(s) 3 (three) times daily for 14 days. [facility] FLUTICASONE PROPIONATE (FLOVENT ROTADISK INHALE) 03-11 10:34: 33 Yes 2{puff} Inhale 2 Puffs as needed. [facility] albuterol-i pratropium (COMBIVENT INHALER) 18-103 mcg/actuati on inhaler 03-11 10:34: 33 Yes Inhale 4 (four) times daily. [facility] CARVEDILOL ORAL 03-11 10:34: 33 Yes 25mg Take 25 mg by mouth 2 (two) times daily. [facility] aspirin 81 mg chewable tablet 03-11 10:34: 33 Yes 81mg Take 1 tablet by mouth in the morning. [facility] simvastatin (ZOCOR) 20 mg tablet 03-11 10:34: 33 Yes 20mg Take 1 tablet by mouth at bedtime. [facility] ferrous sulfate 325 mg (65 mg iron) tablet 03-11 10:34: 33 Yes 325mg Take 1 tablet by mouth in the morning. [facility] fluticasone furoate-giovanna anteroL 100-25 mcg/dose DsDv 03-11 10:34: 33 Yes Inhale. [facility] gabapentin 600 mg tablet 03-11 10:34: 33 Yes 600mg Take 1 tablet by mouth in the morning and 1 tablet at noon and 1 tablet in the evening. [facility] furosemide 80 mg tablet 03-11 10:34: 33 Yes 80mg Take 1 tablet by mouth in the morning and 1 tablet in the evening. [facility] rosuvastati n 10 mg tablet 03-11 10:34: 33 Yes 10mg Take 1 tablet by mouth in the morning. [facility] metformin ER 500 mg 24 hr tablet 03-11 10:34: 33 Yes 500mg Take 1 tablet by mouth in the morning. [facility] montelukast 10 mg tablet 03-11 10:34: 33 Yes 10mg Take 1 tablet by mouth in the morning. [facility] mupirocin 2 % ointment 03-11 10:34: 33 Yes 1{dose} Apply 1 Dose to area(s) as needed. [facility] mupirocin 2 % ointment 03-11 00:00: 00 Yes [id number] Apply to area(s) 3 (three) times daily. [facility] cyclobenzap rine 10 mg tablet 03-07 00:00: 00 06-30 00:00 :00 No TAKE 1 TABLET BY MOUTH EVERY 8 HOURS NEEDED FOR MUSCLE SPASM [facility] FUROSEMIDE 80 MG TABS 2023-0 9-13 00:00: 00 Yes 80 [facility] POTASSIUM CHLORIDE ER 20 MEQ TBCR 0 8-16 00:00: 00 Yes [facility] HYDROCODONE BITARTRATE/ ACETAMINOPH E N 10-325 MG TABS 6-28 00:00: 00 Yes Dariel Renee TAKE 1 TABLET BY MOUTH TWICE A DAY FOR 7 DAYS 6-28 00:00: 00 Yes [facility]iel [facility]enee ROSUVASTATI N CALCIUM 20 MG TABS 5-30 00:00: 00 Yes [facility]iel Renee LOSARTAN POTASSIUM 100 MG TABS 5-24 00:00: 00 Yes Dariel Renee TAKE 1 TABLET BY MOUTH TWICE A DAY WITH FOOD FOR 90 DAYS -24 00:00: 00 Yes [facility] SYMBICORT 160-4.5 MCG/ACT AERO 5-23 00:00: 00 Yes [facility]iel [facility] OMEPRAZOLE 40 MG CPDR - 00:00: 00 Yes [facility]iel Renee METFORMIN HYDROCHLORI DE ER 500 MG TB24 5-03 00:00: 00 Yes Dariel Renee TAKE 1 TABLET BY MOUTH EVERY DAY -19 00:00: 00 Yes Dariel Renee sodium chloride (NS) injection 03-08 13:21: 00 03-08 13:31 :55 No PRN, Starting on Ayala 03/08/23 at 0821, Until Ayala 03/08/23 at 0831, Routine, Intra-op [facility] neomycin-po lymyxin-dex amethasone (MAXITROL) 3.5 mg/g-10,000 unit/g-0.1 % ophthalmic ointment 03-08 13:21: 00 03-08 13:31 :55 No PRN, Starting on Ayala 03/08/23 at 0821, Until Ayala 03/08/23 at 0831, Routine, Intra-op [facility] gentamicin injection 03-08 13:21: 00 03-08 13:31 :55 No PRN, Starting on Ayala 03/08/23 at 0821, Until Ayala 03/08/23 at 0831, BHUPINDER, Intra-op [facility] dexamethaso ne (DECADRON PHOSPHATE) injection 03-08 13:21: 00 03-08 13:31 :55 No PRN, Starting on Ayala 03/08/23 at 0821, Until Ayala 03/08/23 at 0831, Routine, Intra-op [facility] ceFAZolin (ANCEF) injection 03-08 13:21: 00 03-08 13:31 :55 No PRN, Starting on Ayala 03/08/23 at 0821, Until Ayala 03/08/23 at 0831, BHUPINDER, Intra-op [facility] chondroitin sulf-sod hyaluronate (DUOVISC VISCO ELASTIC) intraocular injection 03-08 13:15: 00 03-08 13:31 :55 No PRN, Starting on Ayala 03/08/23 at 0815, Until Ayala 03/08/23 at 0831, Routine, Intra-op [facility] EPINEPHrine (PF) 1:1,000 (1 mg/mL) (ADRENALIN (PF)) injection 03-08 13:14: 00 03-08 13:31 :55 No PRN, Starting on Ayala 03/08/23 at 0814, Until Ayala 03/08/23 at 0831, Routine, Intra-op [facility] balanced salt soln no.2 irrig. (BSS) ophthalmic solution 03-08 13:14: 00 03-08 13:31 :55 No PRN, Starting on Ayala 03/08/23 at 0814, Until Ayala 03/08/23 at 0831, Routine, Intra-op [facility] water for irrigation irrigation solution 03-08 13:09: 00 03-08 13:31 :55 No PRN, Starting on Ayala 03/08/23 at 0809, Until Ayala 03/08/23 at 0831, Routine, Intra-op [facility] tetracaine (PONTOCAINE ) 0.5 % ophthalmic drops 03-08 13:06: 00 03-08 13:31 :55 No PRN, Starting on Sun03/08/23 at 0806, Until Sun03/08/23 at 0831, Routine, Intra-op [facility] eye block syringe 11 mL 03-08 13:06: 00 03-08 13:31 :55 No PRN, Starting on Sun03/08/23 at 0806, Until Ayala 03/08/23 at 0831, Intra-op [facility] cyclopent 1%-tropic 1%-phenyl 2.5%-ketor 0.5% (MYDRIATIC #5) ophthalmic solution syringe 0.5 mL 03-08 12:30: 00 03-08 12:26 :00 No .5mL 0.5 mL, Right Eye, ONCE, 1 dose, On Ayala 03/08/23 at 0730, Routine, DSU Pre-op [facility] lactated ringers IV infusion 1,000 mL 03-08 12:30: 00 03-08 12:26 :00 No 1000mL at 42 mL/hr, 1,000 mL, IV Infusion, ONCE, 1 dose, On Sun03/08/23 at 0730, Routine, DSU Pre-op [facility] ferrous sulfate 325 mg (65 mg iron) tablet 03-08 09:15: 26 Yes 325mg Take 1 tablet by mouth in the morning. [facility] apixaban 2.5 mg tablet 03-08 09:15: 26 Yes 2.5mg Take 1 tablet by mouth in the morning. [facility] fluticasone furoate-giovanna anteroL 100-25 mcg/dose DsDv 03-08 09:15: 26 Yes Inhale. [facility] gabapentin 600 mg tablet 03-08 09:15: 26 Yes 600mg Take 1 tablet by mouth in the morning and 1 tablet at noon and 1 tablet in the evening. [facility] furosemide 80 mg tablet 03-08 09:15: 26 Yes 80mg Take 1 tablet by mouth in the morning and 1 tablet in the evening. [facility] rosuvastati n 10 mg tablet 03-08:15: 26 Yes 10mg Take 1 tablet by mouth in the morning. [facility] omeprazole 40 mg capsule 03-08:15: 26 Yes 40mg Take 1 capsule by mouth in the morning. [facility] metformin ER 500 mg 24 hr tablet 03-08:15: 26 Yes 500mg Take 1 tablet by mouth in the morning. [facility] montelukast 10 mg tablet 03-08:15: Yes 10mg Take 1 tablet by mouth in the morning. [facility] mupirocin 2 % ointment 03-08:15: 26 Yes 1{dose} Apply 1 Dose to area(s) as needed. [facility] Nitrofurant oin&Nit. Macrocryst 100 mg capsule 03-08:15: 06-30 00:00 :00 No 100mg Take 1 capsule by mouth in the morning and 1 capsule in the evening. [facility] albuterol-i pratropium (COMBIVENT INHALER) 18-103 mcg/actuati on inhaler 03-08 09:15: 25 Yes Inhale 4 (four) times daily. [facility] FLUTICASONE PROPIONATE (FLOVENT ROTADISK INHALE) 03-08 09:15: 25 Yes 2{puff} Inhale 2 Puffs as needed. [facility] aspirin 81 mg chewable tablet 03-08 09:15: 25 Yes 81mg Take 1 tablet by mouth in the morning. [facility] simvastatin (ZOCOR) 20 mg tablet 03-08 09:15: 25 Yes 20mg Take 1 tablet by mouth at bedtime. [facility] CARVEDILOL ORAL 03-08 09:15: 25 Yes 25mg Take 25 mg by mouth 2 (two) times daily. [facility] propranolol (INDERAL) 40 mg tablet 4-13 09:15: 25 Yes 40mg Take 1 tablet by mouth in the morning. [facility] TAKE 1 TABLET BY MOUTH THREE TIMES A DAY 05 00:00: 00 Yes [facility]iel [facility]enee ceFAZolin (ANCEF) injection 02-22 14:37: 00 02-22 14:44 :40 No PRN, Starting on Ayala 02/22/23 at 0937, Until Ayala 02/22/23 at 0944, BHUPINDER, Intra-op [facility] dexamethaso ne (DECADRON PHOSPHATE) injection 02-22 14:37: 00 02-22 14:44 :40 No PRN, Starting on Ayala 02/22/23 at 0937, Until Ayala 02/22/23 at 0944, Routine, Intra-op [facility] gentamicin injection 02-22 14:37: 00 02-22 14:44 :40 No PRN, Starting on Ayala 02/22/23 at 0937, Until Ayala 02/22/23 at 0944, BHUPINDER, Intra-op [facility] neomycin-po lymyxin-dex amethasone (MAXITROL) 3.5 mg/g-10,000 unit/g-0.1 % ophthalmic ointment 02-22 14:37: 00 02-22 14:44 :40 No PRN, Starting on Ayala 02/22/23 at 0937, Until Ayala 02/22/23 at 0944, Routine, Intra-op [facility] sodium chloride (NS) injection 02-22 14:37: 00 02-22 14:44 :40 No PRN, Starting on Ayala 02/22/23 at 0937, Until Ayala 02/22/23 at 0944, Routine, Intra-op [facility] chondroitin sulf-sod hyaluronate (DUOVISC VISCO ELASTIC) intraocular injection 02-22 14:32: 00 02-22 14:44 :40 No PRN, Starting on Ayala 02/22/23 at 0932, Until Ayala 02/22/23 at 0944, Routine, Intra-op [facility] EPINEPHrine (PF) 1:1,000 (1 mg/mL) (ADRENALIN (PF)) injection 02-22 14:31: 00 02-22 14:44 :40 No PRN, Starting on Ayala 02/22/23 at 0931, Until Ayala 02/22/23 at 0944, Routine, Intra-op [facility] balanced salt soln no.2 irrig. (BSS) ophthalmic solution 02-22 14:31: 00 02-22 14:44 :40 No PRN, Starting on Ayala 02/22/23 at 0931, Until Ayala 02/22/23 at 0944, Routine, Intra-op [facility] water for irrigation irrigation solution 02-22 14:25: 00 02-22 14:44 :40 No PRN, Starting on Ayala 02/22/23 at 0925, Until Ayala 02/22/23 at 0944, Routine, Intra-op [facility] tetracaine (PONTOCAINE ) 0.5 % ophthalmic drops 02-22 14:22: 00 02-22 14:44 :40 No PRN, Starting on Ayala 02/22/23 at 0922, Until Ayala 02/22/23 at 0944, Routine, Intra-op [facility] eye block syringe 11 mL 02-22 14:22: 00 02-22 14:44 :40 No PRN, Starting on Ayala 02/22/23 at 0922, Until Ayala 02/22/23 at 0944, Intra-op [facility] cyclopent 1%-tropic 1%-phenyl 2.5%-ketor 0.5% (MYDRIATIC #5) ophthalmic solution syringe 0.5 mL 02-22 13:15: 00 02-22 13:12 :00 No .5mL 0.5 mL, Left Eye, ONCE, 1 dose, On Ayala 3/30/23 at 0815, Routine, DSU Pre-op [facility] lactated ringers IV infusion 1,000 mL 02-22 13:15: 00 02-22 13:27 :00 No 1000mL at 42 mL/hr, 1,000 mL, IV Infusion, ONCE, 1 dose, On Ayala 02/22/23 at 0815, Routine, DSU Pre-op [facility] metformin ER 500 mg 24 hr tablet 02-22 10:32: 49 Yes 500mg Take 1 tablet by mouth in the morning. [facility] montelukast 10 mg tablet 02-22 10:32: 49 Yes 10mg Take 1 tablet by mouth in the morning. [facility] mupirocin 2 % ointment 02-22 10:32: 49 Yes 1{dose} Apply 1 Dose to area(s) as needed. [facility] Nitrofurant oin&Nit. Macrocryst 100 mg capsule 02-22 10:32: 49 Yes 100mg Take 1 capsule by mouth in the morning and 1 capsule in the evening. [facility] albuterol-i pratropium (COMBIVENT INHALER) 18-103 mcg/actuati on inhaler 02-22 10:32: 49 Yes Inhale 4 (four) times daily. [facility] FLUTICASONE PROPIONATE (FLOVENT ROTADISK INHALE) 02-22 10:32: 49 Yes 2{puff} Inhale 2 Puffs as needed. [facility] propranolol (INDERAL) 40 mg tablet 02-22 10:32: 49 Yes 40mg Take 1 tablet by mouth in the morning. [facility] aspirin 81 mg chewable tablet 02-22 10:32: 49 Yes 81mg Take 1 tablet by mouth in the morning. [facility] simvastatin (ZOCOR) 20 mg tablet 02-22 10:32: 49 Yes 20mg Take 1 tablet by mouth at bedtime. [facility] CARVEDILOL ORAL 02-22 10:32: 49 Yes 25mg Take 25 mg by mouth 2 (two) times daily. [facility] ferrous sulfate 325 mg (65 mg iron) tablet 02-22 10:32: 49 Yes 325mg Take 1 tablet by mouth in the morning. [facility] apixaban 2.5 mg tablet 02-22 10:32: 49 Yes 2.5mg Take 1 tablet by mouth in the morning. [facility] fluticasone furoate-giovanna anteroL 100-25 mcg/dose DsDv 02-22 10:32: 49 Yes Inhale. [facility] gabapentin 600 mg tablet 02-22 10:32: 49 Yes 600mg Take 1 tablet by mouth in the morning and 1 tablet at noon and 1 tablet in the evening. [facility] furosemide 80 mg tablet 02-22 10:32: 49 Yes 80mg Take 1 tablet by mouth in the morning and 1 tablet in the evening. [facility] rosuvastati n 10 mg tablet 02-22 10:32: 49 Yes 10mg Take 1 tablet by mouth in the morning. [facility] omeprazole 40 mg capsule 02-22 10:32: 49 Yes 40mg Take 1 capsule by mouth in the morning. [facility] GABAPENTIN, BULK, MISC 02-22 09:45: 41 02-22 00:00 :00 No 600mg Take 600 mg in the morning and 600 mg at noon and 600 mg in the evening. [facility] AMIODARONE HYDROCHLORI DE 200 MG TABS 02-19 00:00: 00 Yes Dariel Renee INSTILL 1 DROP INTO LEFT EYE NIGHT BEFORE AND MORNING AND SURGERY, THEN POST-OP 3 TIMES A DAY 02-13 00:00: 00 Yes Dariel Renee INSTILL 1 DROP IN LEFT EYE 3 TIMES A DAY X7 DAYS, TWICE A DAY X7 DAYS, THEN ONCE DAILY X14 DAYS 02-13 00:00: 00 Yes Dariel Renee KETOROLAC TROMETHAMIN E 0.5 % SOLN 2023-0 3-21 00:00: 00 Yes Dariel Renee TAKE 1 CAPSULE BY MOUTH EVERY 12 HOURS 0 3-16 00:00: 00 Yes Dariel Renee TAKE 1 TABLET BY MOUTH TWICE A DAY 0 3-13 00:00: 00 Yes Dariel Renee losartan 100 mg tablet 1-14 00:00: 00 Yes 100mg Take 1 tablet by mouth in the morning. [facility] SYMBICORT 160-4.5 mcg/actuati on inhaler 1-11 00:00: 00 Yes 1{puff} Inhale 1 Puff in the morning. [facility] amiodarone 200 mg tablet 2021-11 2-24 00:00: 00 Yes 200mg Take 1 tablet by mouth in the morning. [facility] CEPHALEXIN 500 MG 2021-11- 00:00: 00 Yes Dariel Renee TRAMADOL HCL 50 MG TABS 2021-11 00:00: 00 Yes Dariel Renee TAKE 1 TABLET BY MOUTH TWICE A DAY FOR 7 DAYS 0 30 00:00: 00 Yes Dariel Renee TAKE 1 TABLET BY MOUTH TWICE A DAY 0 30 00:00: 00 Yes Dariel Renee TAKE 1 TABLET BY MOUTH ONCE A DAY WITH FOOD FOR 20 DAYS WITH LASIX 0 30 00:00: 00 Yes Dariel Renee &lt 0 30 00:00: 00 Yes Dariel Renee TAKE 1 TABLET BY MOUTH TWICE A DAY FOR 90 DAYS 2021-0 -20 00:00: 00 Yes Dariel Renee TAKE 1 TABLET BY MOUTH TWICE A DAY FOR 7 DAYS 0 -20 00:00: 00 Yes Dariel Renee &lt 2021-0 6-20 00:00: 00 Yes Dariel Renee TAKE 1 TABLET BY MOUTH TWICE A DAY 2021-0 -19 00:00: 00 Yes Dariel Renee TAKE 1 TABLET BY MOUTH TWICE A DAY FOR 7 DAYS 0 6-19 00:00: 00 Yes Dariel Renee &lt 2021-0 6-18 00:00: 00 Yes Dariel Renee &lt 2021-0 6-17 00:00: 00 Yes Dariel Renee TAKE 1 TABLET BY MOUTH ONCE A DAY WITH FOOD FOR 20 DAYS WITH LASIX 05-12 00:00: 00 Yes Dariel Renee &lt 05-12 00:00: 00 Yes Dariel Renee &lt 05-12 00:00: 00 Yes Dariel Renee TAKE 1 TABLET BY MOUTH EVERY 8 HOURS NEEDED MUSCLE SPASMS 05-12 00:00: 00 Yes Dariel Renee &lt 05-12 00:00: 00 Yes Dariel Renee APPLY TO OPEN SORES EXTERNALLY THREE TIMES A DAY 7 DAYS 05-12 00:00: 00 Yes Dariel Renee &lt 05-12 00:00: 00 Yes Dariel Renee amLODIPine (NORVASC) 5 mg tablet 04-20 14:30: 51 04-20 00:00 :00 No 5mg Take 5 mg by mouth daily. [facility] amitriptyli ne (ELAVIL) 10 mg tablet 04-20 14:30: 42 04-20 00:00 :00 No 10mg Take 10 mg by mouth at bedtime. [facility] propranolol (INDERAL) 40 mg tablet 04-20 13:28: 01 Yes 40mg Take 40 mg by mouth daily. [facility] Lidocaine 5 % Lidocaine 5 % 3-03 00:00: 00 No QD Lidocaine 5 % Albuterol Sulfate (2.5 MG/3ML) 0.083% Albuterol Sulfate (2.5 MG/3ML) 0.083% 2020-1116 00:00: 00 No 3{ml_as _needed } TID Albuterol Sulfate (2.5 MG/3ML) 0.083% albuterol-i pratropium (COMBIVENT INHALER) 18-103 mcg/actuati on inhaler 03-11 14:52: 21 Yes Inhale 4 (four) times daily. [facility] FLUTICASONE PROPIONATE (FLOVENT ROTADISK INHALE) 03-11 14:52: 21 Yes 2{puff} Inhale 2 Puffs as needed. [facility] Gabapentin, Bulk, 100 % Powd 03-11 14:52: 21 Yes 600mg 600 mg 3 (three) times daily. [facility] aspirin 81 mg chewable tablet 03-11 14:52: 21 Yes 81mg Take 81 mg by mouth daily. [facility] simvastatin (ZOCOR) 20 mg tablet 03-11 14:52: 21 Yes 20mg Take 20 mg by mouth at bedtime. [facility] CARVEDILOL ORAL 03-11 14:52: 21 Yes 25mg Take 25 mg by mouth 2 (two) times daily. [facility] ferrous sulfate 325 mg (65 mg iron) tablet 03-11 14:52: 21 Yes 325mg Take 325 mg by mouth daily. [facility] fluticasone -vilanterol (BREO ELLIPTA) 100-25 mcg/dose DsDv 03-11 14:52: 21 Yes Inhale. [facility] amoxicillin 500 mg capsule 03-09 00:00: 00 Yes [facility] HYDROcodone -acetaminop hen 10-325 mg tablet 03-02 00:00: 00 Yes 1{tbl} Take 1 tablet by mouth in the morning and 1 tablet at noon and 1 tablet in the evening. [facility] spironolact one 50 mg tablet 02-28 00:00: 00 Yes 50mg Take 1 tablet by mouth in the morning. [facility] spironolact one 25 mg tablet 02-28 00:00: 00 Yes 25mg Take 25 mg by mouth 2 (two) times daily. [facility] diazePAM 5 mg tablet 7-03 00:00: 00 04-20 00:00 :00 No [id number] 5mg Take 1 tablet by mouth 2 (two) times daily. May take both befor the MRI [facility] cyclobenzap rine 10 mg tablet 8-15 00:00: 00 04-20 00:00 :00 No [id number] 10mg Take 1 tablet by mouth 3 (three) times daily. [facility] methylPREDN ISolone (MEDROL, TIMOTHY,) 4 mg tablets 06-04 00:00: 00 04-20 00:00 :00 No [id number] Take by mouth SEE-INSTRU CTIONS. follow package directions [facility] levoFLOXaci n 500 mg tablet 2016-11 00:00: 00 04-20 00:00 :00 No [facility] penicillin v potassium 500 mg tablet 2016-11 00:00: 00 04-20 00:00 :00 No [facility] lidocaine 5 % ointment 2016-11 00:00: 00 Yes [facility] phenazopyri dine (PYRIDIUM) 100 mg tablet 07-05 00:00: 00 Yes 200mg Take 2 tablets by mouth 3 (three) times daily as needed (bladder pain). [facility] ibuprofen (MOTRIN) 800 mg tablet 2015-11 00:00: 00 Yes [facility] clindamycin (CLEOCIN) 150 mg capsule 2015-11 00:00: 00 04-20 00:00 :00 No TAKE 2 CAPSULES BY MOUTH EVERY 8 HOURS ( 3 TIMES A DAY) TAKE WITH FOOD AND DRINK PLENTY OF WATER [facility] tiZANidine (ZANAFLEX) 4 mg tablet 04-04 00:00: 00 Yes 4mg Take 1 tablet by mouth in the morning and 1 tablet in the evening. [facility] VOLTAREN 1 % gel 03-08 00:00: 00 Yes 1{dose} Apply 1 Dose to area(s) every evening. [facility] potassium chloride (K-DUR) 10 mEq CR tablet 03-08 00:00: 00 Yes 10meq Take 10 mEq by mouth daily. [facility] potassium chloride 20 mEq tablet 03-08 00:00: 00 07-08 00:00 :00 No 20meq Take 1 tablet by mouth in the morning. [facility] losartan (COZAAR) 100 mg tablet 4-13 00:00: 00 04-20 00:00 :00 No 100mg Take 100 mg by mouth daily. [facility] hydrochloro thiazide (ESIDRIX) 25 mg tablet 05-30 00:00: 00 Yes 25mg Take 1 Tab by mouth 2 (two) times daily. [facility] docusate calcium (SURFAK) 240 mg capsule 05-30 00:00: 00 04-20 00:00 :00 No 240mg Take 1 Cap by mouth 2 (two) times daily. [facility] Omeprazole 40 MG Omeprazole 40 MG No 1{capsu le} QD Omeprazole 40 MG Furosemide 80 MG Furosemide 80 MG No 1{table t} BID Furosemide 80 MG Eliquis 5 MG Eliquis 5 MG [...] le} QD Nortriptyl ine HCl 25 MG Flovent Diskus 100 MCG/BLIST Flovent Diskus 100 MCG/BLIST No 1{puff} BID Flovent Diskus 100 MCG/BLIST Immunizations Ordered Immunization Name Filled Immunization Name Date Status Comments Source Flucelvax - single dose syringe Flucelvax - single dose syringe 2022-09-18 12:24:00 [facility] Flucelvax - single dose syringe Flucelvax - single dose syringe 2022-09-18 12:24:00 Completed [facility] Flucelvax - single dose syringe Flucelvax - single dose syringe 2022-09-18 12:24:00 Completed [facility] Flucelvax - single dose syringe Flucelvax - single dose syringe 2022-09-18 12:24:00 Completed [facility] Flucelvax - single dose syringe Flucelvax - single dose syringe 2022-09-18 12:24:00 Completed [facility] Flucelvax - single dose syringe Flucelvax - single dose syringe 2022-09-18 12:24:00 Completed [facility] Flucelvax - single dose syringe Flucelvax - single dose syringe 2022-09-18 12:24:00 Completed [facility] Flucelvax - single dose syringe Flucelvax - single dose syringe 2022-09-18 12:24:00 Completed [facility] Flucelvax - single dose syringe Flucelvax - single dose syringe 2022-09-18 12:24:00 Completed [facility] Flucelvax - single dose syringe Flucelvax - single dose syringe 2022-09-18 12:24:00 Completed [facility] Flucelvax - single dose syringe Flucelvax - single dose syringe 2022-09-18 12:24:00 Completed [facility] Influenza Virus Vaccine Quad IM, Preserv and ABX Free 6 MO-64 YRS (FLUCELVAX) 2022-08-07 00:00:00 Completed Pneumococcal 20 Conjugate, PCV20 (Prevnar 20) 2022-06-20 00:00:00 Completed SHINGRIX VACCINE SHINGRIX VACCINE 2022-05-12 00:00:00 Completed Dariel Renee Td Td 2022-04-10 11:44:00 Completed [facility] Td Td 2022-04-10 11:44:00 Completed [facility] Td Td 2022-04-10 11:44:00 Completed [facility] Td Td 2022-04-10 11:44:00 Completed [facility] Td Td 2022-04-10 11:44:00 Completed [facility] Td Td 2022-04-10 11:44:00 Completed [facility] Td Td 2022-04-10 11:44:00 Completed [facility] Td Td 2022-04-10 11:44:00 Completed [facility] Td Td 2022-04-10 11:44:00 Completed [facility] Td Td 2022-04-10 11:44:00 Completed [facility] Td Td 2022-04-10 11:44:00 Completed [facility] Td Td 2022-04-10 11:44:00 Completed [facility] Td Td 2022-04-10 11:44:00 Completed [facility] Td Td 2022-04-10 11:44:00 Completed [facility] Td Td 2022-04-10 11:44:00 Completed [facility] Influenza Virus Vaccine Quad IM, Preserv and ABX Free 6 MO-64 YRS (FLUCELVAX) 2022-02-20 00:00:00 Completed Moderna COVID-19 Vaccine (Low Dose Booster) Moderna COVID-19 Vaccine (Low Dose Booster) 2021-10-07 15:33:00 Completed [facility] Moderna COVID-19 Vaccine (Low Dose Booster) Moderna COVID-19 Vaccine (Low Dose Booster) 2021-10-07 15:33:00 Completed [facility] Moderna COVID-19 Vaccine (Low Dose Booster) Moderna COVID-19 Vaccine (Low Dose Booster) 2021-10-07 15:33:00 Completed [facility] Moderna COVID-19 Vaccine (Low Dose Booster) Moderna COVID-19 Vaccine (Low Dose Booster) 2021-10-07 15:33:00 Completed [facility] Moderna COVID-19 Vaccine (Low Dose Booster) Moderna COVID-19 Vaccine (Low Dose Booster) 2021-10-07 15:33:00 Completed [facility] Moderna COVID-19 Vaccine (Low Dose Booster) Moderna COVID-19 Vaccine (Low Dose Booster) 2021-10-07 15:33:00 Completed [facility] Moderna COVID-19 Vaccine (Low Dose Booster) Moderna COVID-19 Vaccine (Low Dose Booster) 2021-10-07 15:33:00 Completed [facility] Moderna COVID-19 Vaccine (Low Dose Booster) Moderna COVID-19 Vaccine (Low Dose Booster) 2021-10-07 15:33:00 Completed [facility] Moderna COVID-19 Vaccine (Low Dose Booster) Moderna COVID-19 Vaccine (Low Dose Booster) 2021-10-07 15:33:00 Completed [facility] Moderna COVID-19 Vaccine (Low Dose Booster) Moderna COVID-19 Vaccine (Low Dose Booster) 2021-10-07 15:33:00 Completed [facility] Moderna COVID-19 Vaccine (Low Dose Booster) Moderna COVID-19 Vaccine (Low Dose Booster) 2021-10-07 15:33:00 Completed [facility] Moderna COVID-19 Vaccine (Low Dose Booster) Moderna COVID-19 Vaccine (Low Dose Booster) 2021-10-07 15:33:00 Completed [facility] Moderna COVID-19 Vaccine (Low Dose Booster) Moderna COVID-19 Vaccine (Low Dose Booster) 2021-10-07 15:33:00 Completed [facility] Moderna COVID-19 Vaccine (Low Dose Booster) Moderna COVID-19 Vaccine (Low Dose Booster) 2021-10-07 15:33:00 Completed [facility] Moderna COVID-19 Vaccine (Low Dose Booster) Moderna COVID-19 Vaccine (Low Dose Booster) 2021-10-07 15:33:00 Completed [facility] Moderna COVID-19 Vaccine (Low Dose Booster) Moderna COVID-19 Vaccine (Low Dose Booster) 2021-10-07 15:33:00 Completed [facility] Moderna COVID-19 Vaccine (Low Dose Booster) Moderna COVID-19 Vaccine (Low Dose Booster) 2021-10-07 15:33:00 Completed [facility] Moderna COVID-19 Vaccine (Low Dose Booster) Moderna COVID-19 Vaccine (Low Dose Booster) 2021-10-07 15:33:00 Completed [facility] Afluria Afluria 2021-10-07 13:58:00 Completed [facility] Afluria Afluria 2021-10-07 13:58:00 Completed [facility] Afluria Afluria 2021-10-07 13:58:00 Completed [facility] Afluria Afluria 2021-10-07 13:58:00 Completed [facility] Afluria Afluria 2021-10-07 13:58:00 Completed [facility] Afluria Afluria 2021-10-07 13:58:00 Completed [facility] Afluria Afluria 2021-10-07 13:58:00 Completed [facility] Afluria Afluria 2021-10-07 13:58:[facility]:58[facility] 2021-10-07 13:58:00 Completed [facility] Afluria Afluria 2021-10-07 13:58:00 [facility] 2021-10-07 13[facility]58:[facility] 2021-10-07 13:58:00 [facility] 2021-10-07 13:58:00 [facility] 2021-10-07 13:58:00 [facility] 2021-10-07 13:58:00 [facility] 2021-10-07 13:58:00 Completed [facility] Influenza Virus Vaccine Quad IM, Preserv and ABX Free 6 MO-64 YRS (FLUCELVAX) 2021-09-15 00:00:00 Completed SARS-COV-2 COVID-19 PFIZER VACCINE 2021-08-22 00:00:00 Completed SARS-COV-2 COVID-19 MODERNA 12+ YRS VACCINE 2021-01-30 00:00:00 Completed [facility] SARS-COV-2 COVID-19 MODERNA 12+ YRS VACCINE 2021-01-30 00:00:00 Completed [facility] SARS-COV-2 COVID-19 MODERNA 12+ YRS VACCINE 2021-01-30 00:00:00 Completed [facility] SARS-COV-2 COVID-19 MODERNA 12+ YRS VACCINE 2021-01-30 00:00:00 Completed [facility] SARS-COV-2 COVID-19 MODERNA 12+ YRS VACCINE 2021-01-30 00:00:00 Completed [facility] SARS-COV-2 COVID-19 MODERNA 12+ YRS VACCINE 2021-01-30 00:00:00 Completed [facility] SARS-COV-2 COVID-19 MODERNA VACCINE 2021-01-30 00:00:00 Completed [facility] SARS-COV-2 COVID-19 MODERNA VACCINE 2021-01-30 00:00:00 Completed [facility] SARS-COV-2 COVID-19 MODERNA VACCINE 2021-01-30 00:00:00 Completed [facility] SARS-COV-2 COVID-19 MODERNA 12+ YRS VACCINE 2021-01-30 00:00:00 Completed [facility] SARS-COV-2 COVID-19 MODERNA 12+ YRS VACCINE 2021-01-30 00:00:00 Completed [facility] SARS-COV-2 COVID-19 MODERNA 12+ YRS VACCINE 2021-01-30 00:00:00 Completed [facility] SARS-COV-2 COVID-19 MODERNA 12+ YRS VACCINE 2021-01-02 00:00:00 Completed [facility] SARS-COV-2 COVID-19 MODERNA 12+ YRS VACCINE 2021-01-02 00:00:00 Completed [facility] SARS-COV-2 COVID-19 MODERNA 12+ YRS VACCINE 2021-01-02 00:00:00 Completed [facility] SARS-COV-2 COVID-19 MODERNA 12+ YRS VACCINE 2021-01-02 00:00:00 Completed [facility] SARS-COV-2 COVID-19 MODERNA 12+ YRS VACCINE 2021-01-02 00:00:00 Completed [facility] SARS-COV-2 COVID-19 MODERNA 12+ YRS VACCINE 2021-01-02 00:00:00 Completed [facility] SARS-COV-2 COVID-19 MODERNA VACCINE 2021-01-02 00:00:00 Completed [facility] SARS-COV-2 COVID-19 MODERNA VACCINE 2021-01-02 00:00:00 Completed [facility] SARS-COV-2 COVID-19 MODERNA VACCINE 2021-01-02 00:00:00 Completed [facility] SARS-COV-2 COVID-19 MODERNA 12+ YRS VACCINE 2021-01-02 00:00:00 Completed [facility] SARS-COV-2 COVID-19 MODERNA 12+ YRS VACCINE 2021-01-02 00:00:00 Completed [facility] SARS-COV-2 COVID-19 MODERNA 12+ YRS VACCINE 2021-01-02 00:00:00 Completed [facility] Afluria single dose Afluria single dose 2020-09-06 12:04:00 Completed [facility] Afluria single dose Afluria single dose 2020-09-06 12:04:00 Completed [facility] Afluria single dose Afluria single dose 2020-09-06 12:04:00 Completed [facility] Afluria single dose Afluria single dose 2020-09-06 12:04:00 Completed [facility] Afluria single dose Afluria single dose 2020-09-06 12:04:00 Completed [facility] Afluria single dose Afluria single dose 2020-09-06 12:04:00 Completed [facility] Afluria single dose Afluria single dose 2020-09-06 12:04:00 Completed [facility] Afluria single dose Afluria single dose 2020-09-06 12:04:00 Completed [facility] Afluria single dose Afluria single dose 2020-09-06 12:04:00 Completed [facility] Afluria single dose Afluria single dose 2020-09-06 12:04:00 Completed [facility] Afluria single dose Afluria single dose 2020-09-06 12:04:00 Completed [facility] Afluria single dose Afluria single dose 2020-09-06 12:04:00 Completed [facility] Afluria single dose Afluria single dose 2020-09-06 12:04:00 Completed [facility] Afluria single dose Afluria single dose 2020-09-06 12:04:00 Completed [facility] Afluria single dose Afluria single dose 2020-09-06 12:04:00 Completed [facility] Afluria single dose Afluria single dose 2020-09-06 12:04:00 Completed [facility] Afluria single dose Afluria single dose 2020-09-06 12:04:00 Completed [facility] Afluria single dose Afluria single dose 2020-09-06 12:04:00 Completed [facility] Afluria single dose Afluria single dose 2020-09-06 12:04:00 Completed [facility] Influenza Virus Vaccine Quad .5 mL IM 6+ MO (FLUZONE/FLULAVAL/F LUARIX) 2020-01-29 00:00:00 Completed Afluria single dose Afluria single dose 2019-08-21 15:26:00 Completed [facility] Afluria single dose Afluria single dose 2019-08-21 15:26:00 Completed [facility] Afluria single dose Afluria single dose 2019-08-21 15:26:00 Completed [facility] Afluria single dose Afluria single dose 2019-08-21 15:26:00 Completed [facility] Afluria single dose Afluria single dose 2019-08-21 15:26:00 Completed [facility] Afluria single dose Afluria single dose 2019-08-21 15:26:00 Completed [facility] Afluria single dose Afluria single dose 2019-08-21 15:26:00 Completed [facility] Afluria single dose Afluria single dose 2019-08-21 15:26:00 Completed [facility] Afluria single dose Afluria single dose 2019-08-21 15:26:00 Completed [facility] Afluria single dose Afluria single dose 2019-08-21 15:26:00 Completed [facility] Afluria single dose Afluria single dose 2019-08-21 15:26:00 Completed [facility] Afluria single dose Afluria single dose 2019-08-21 15:26:00 Completed [facility] Afluria single dose Afluria single dose 2019-08-21 15:26:00 Completed [facility] Afluria single dose Afluria single dose 2019-08-21 15:26:00 Completed [facility] Afluria single dose Afluria single dose 2019-08-21 15:26:00 Completed [facility] Afluria single dose Afluria single dose 2019-08-21 15:26:00 Completed [facility] Afluria single dose Afluria single dose 2019-08-21 15:26:00 [facility]pleted [facility] Afluria single dose Afluria single dose 2019-08-21 15:26:00 Completed [facility] Afluria single dose Afluria single dose 2019-08-21 15:26:00 Completed [facility] Fluarix (IIV4) - SDS - 0.5mL Fluarix (IIV4) - SDS - 0.5mL 2019-08-21 00:00:00 Completed [facility] Afluria Afluria 2018-09-20 10:06:00 Completed [facility] Afluria Afluria 2018-09-20 10:06:00 [facility]pleted [facility] Afluria Afluria 2018-09-20 10:06:00 Completed [facility] Afluria Afluria 2018-09-20 10:06:00 Completed [facility] Afluria Afluria 2018-09-20 10:06:00 Completed [facility] Afluria Afluria 2018-09-20 10:06:00 Completed [facility] Afluria Afluria 2018-09-20 10:06:00 Completed [facility] Afluria Afluria 2018-09-20 10:06:00 Completed [facility] Afluria Afluria 2018-09-20 10:06:00 Completed [facility] Afluria Afluria 2018-09-20 10:06:00 Completed [facility] Afluria Afluria 2018-09-20 10:06:00 Completed [facility] 2018-09-20 10:06:00 Completed [facility] 2018-09-20 10:06:00 Completed [facility] 2018-09-20 10:06:00 Completed [facility] 2018-09-20 10:06:00 Completed [facility] 2018-09-20 10:06:00 Completed [facility] 2018-09-20 10:06:00 Completed [facility] 2018-09-20 10:06:00 Completed [facility] 2018-09-20 10:06:00 Completed [facility] Pneumococcal Polysaccharide, PPSV23 (PNEUMOVAX) 2013-06-06 00:00:00 Completed [facility] Pneumococcal Polysaccharide, PPSV23 (PNEUMOVAX) 2013-06-06 00:00:00 Completed [facility] Pneumococcal Polysaccharide, PPSV23 (PNEUMOVAX) 2013-06-06 00:00:00 Completed [facility] Pneumococcal Polysaccharide, PPSV23 (PNEUMOVAX) 2013-06-06 00:00:00 Completed [facility] Pneumococcal Polysaccharide, PPSV23 (PNEUMOVAX) 2013-06-06 00:00:00 Completed [facility] Pneumococcal Polysaccharide, PPSV23 (PNEUMOVAX) 2013-06-06 00:00:00 Completed [facility] Pneumococcal Polysaccharide, PPSV23 (PNEUMOVAX) 2013-06-06 00:00:00 Completed [facility] Pneumococcal Polysaccharide, PPSV23 (PNEUMOVAX) 2013-06-06 00:00:00 Completed [facility] Pneumococcal Polysaccharide, PPSV23 (PNEUMOVAX) 2013-06-06 00:00:00 Completed [facility] Pneumococcal Polysaccharide, PPSV23 (PNEUMOVAX) 2013-06-06 00:00:00 Completed [facility] Pneumococcal Polysaccharide, PPSV23 (PNEUMOVAX) 2013-06-06 00:00:00 Completed [facility] Pneumococcal Polysaccharide, PPSV23 (PNEUMOVAX) 2013-06-06 00:00:00 Completed [facility] Pneumococcal Polysaccharide, PPSV23 (PNEUMOVAX) Unknown Completed [facility] Pneumococcal 20 Conjugate, PCV20 (Prevnar 20) Unknown Completed [facility] Influenza Virus Vaccine Quad .5 mL IM 6+ MO (FLUZONE/FLULAVAL/F LUARIX) Unknown Completed [facility] SARS-COV-2 COVID-19 PFIZER VACCINE Unknown Completed [facility] SARS-COV-2 COVID-19 MODERNA 12+ YRS VACCINE Unknown Completed [facility] Influenza Virus Vaccine Quad IM, Preserv and ABX Free 6 MO-64 YRS (FLUCELVAX) Unknown Completed [facility] Pneumococcal Polysaccharide, PPSV23 (PNEUMOVAX) Unknown Completed [facility] SARS-COV-2 COVID-19 MODERNA 12+ YRS VACCINE Unknown Completed [facility] Pneumococcal 20 Conjugate, PCV20 (Prevnar 20) Unknown Completed [facility] Influenza Virus Vaccine Quad .5 mL IM 6+ MO (FLUZONE/FLULAVAL/F LUARIX) Unknown Completed [facility] Influenza Virus Vaccine Quad IM, Preserv and ABX Free 6 MO-64 YRS (FLUCELVAX) Unknown Completed [facility] SARS-COV-2 COVID-19 PFIZER VACCINE Unknown Completed [facility] Pneumococcal Polysaccharide, PPSV23 (PNEUMOVAX) Unknown Completed [facility] Pneumococcal 20 Conjugate, PCV20 (Prevnar 20) Unknown Completed [facility] Influenza Virus Vaccine Quad .5 mL IM 6+ MO (FLUZONE/FLULAVAL/F LUARIX) Unknown Completed [facility] SARS-COV-2 COVID-19 PFIZER VACCINE Unknown Completed [facility] SARS-COV-2 COVID-19 MODERNA 12+ YRS VACCINE Unknown Completed [facility] Influenza Virus Vaccine Quad IM, Preserv and ABX Free 6 MO-64 YRS (FLUCELVAX) Unknown Completed [facility] Pneumococcal Polysaccharide, PPSV23 (PNEUMOVAX) Unknown Completed [facility] SARS-COV-2 COVID-19 MODERNA 12+ YRS VACCINE Unknown Completed [facility] Pneumococcal 20 Conjugate, PCV20 (Prevnar 20) Unknown Completed [facility] Influenza Virus Vaccine Quad .5 mL IM 6+ MO (FLUZONE/FLULAVAL/F LUARIX) Unknown Completed [facility] Influenza Virus Vaccine Quad IM, Preserv and ABX Free 6 MO-64 YRS (FLUCELVAX) Unknown Completed [facility] SARS-COV-2 COVID-19 PFIZER VACCINE Unknown Completed [facility] Pneumococcal Polysaccharide, PPSV23 (PNEUMOVAX) Unknown Completed [facility] SARS-COV-2 COVID-19 MODERNA 12+ YRS VACCINE Unknown Completed [facility] Pneumococcal 20 Conjugate, PCV20 (Prevnar 20) Unknown Completed [facility] Influenza Virus Vaccine Quad .5 mL IM 6+ MO (FLUZONE/FLULAVAL/F LUARIX) Unknown Completed [facility] Influenza Virus Vaccine Quad IM, Preserv and ABX Free 6 MO-64 YRS (FLUCELVAX) Unknown Completed [facility] SARS-COV-2 COVID-19 PFIZER VACCINE Unknown Completed [facility] Pneumococcal Polysaccharide, PPSV23 (PNEUMOVAX) Unknown Completed [facility] SARS-COV-2 COVID-19 MODERNA 12+ YRS VACCINE Unknown Completed [facility] Pneumococcal 20 Conjugate, PCV20 (Prevnar 20) Unknown Completed [facility] Influenza Virus Vaccine Quad .5 mL IM 6+ MO (FLUZONE/FLULAVAL/F LUARIX) Unknown Completed [facility] Influenza Virus Vaccine Quad IM, Preserv and ABX Free 6 MO-64 YRS (FLUCELVAX) Unknown Completed [facility] SARS-COV-2 COVID-19 PFIZER VACCINE Unknown Completed [facility] Pneumococcal Polysaccharide, PPSV23 (PNEUMOVAX) Unknown Completed [facility] SARS-COV-2 COVID-19 MODERNA 12+ YRS VACCINE Unknown Completed [facility] Pneumococcal 20 Conjugate, PCV20 (Prevnar 20) Unknown Completed [facility] Influenza Virus Vaccine Quad .5 mL IM 6+ MO (FLUZONE/FLULAVAL/F LUARIX) Unknown Completed [facility] Influenza Virus Vaccine Quad IM, Preserv and ABX Free 6 MO-64 YRS (FLUCELVAX) Unknown Completed [facility] SARS-COV-2 COVID-19 PFIZER VACCINE Unknown Completed [facility] Pneumococcal Polysaccharide, PPSV23 (PNEUMOVAX) Unknown Completed [facility] SARS-COV-2 COVID-19 MODERNA 12+ YRS VACCINE Unknown Completed [facility] Pneumococcal 20 Conjugate, PCV20 (Prevnar 20) Unknown Completed [facility] Influenza Virus Vaccine Quad .5 mL IM 6+ MO (FLUZONE/FLULAVAL/F LUARIX) Unknown Completed [facility] Influenza Virus Vaccine Quad IM, Preserv and ABX Free 6 MO-64 YRS (FLUCELVAX) Unknown Completed [facility] SARS-COV-2 COVID-19 PFIZER VACCINE Unknown Completed [facility] Pneumococcal Polysaccharide, PPSV23 (PNEUMOVAX) Unknown Completed [facility] SARS-COV-2 COVID-19 MODERNA 12+ YRS VACCINE Unknown Completed [facility] Pneumococcal 20 Conjugate, PCV20 (Prevnar 20) Unknown Completed [facility] Influenza Virus Vaccine Quad .5 mL IM 6+ MO (FLUZONE/FLULAVAL/F LUARIX) Unknown Completed [facility] Influenza Virus Vaccine Quad IM, Preserv and ABX Free 6 MO-64 YRS (FLUCELVAX) Unknown Completed [facility] SARS-COV-2 COVID-19 PFIZER VACCINE Unknown Completed [facility] Moderna COVID-19 Vaccine (Low Dose Booster) Moderna COVID-19 Vaccine (Low Dose Booster) Unknown Completed [facility] Afluria single dose Afluria single dose Unknown Completed [facility] Afluria Afluria Unknown Completed [facility] Flucelvax - single dose syringe Flucelvax - single dose syringe Unknown Completed [facility] Td Td Unknown Completed [facility] Moderna COVID-19 Vaccine (Low Dose Booster) Moderna COVID-19 Vaccine (Low Dose Booster) Unknown Completed [facility] Afluria single dose Afluria single dose Unknown Completed [facility] Afluria Afluria Unknown Completed [facility] Flucelvax - single dose syringe Flucelvax - single dose syringe Unknown Completed [facility] Td Td Unknown Completed [facility] Moderna COVID-19 Vaccine (Low Dose Booster) Moderna COVID-19 Vaccine (Low Dose Booster) Unknown Completed [facility] Afluria single dose Afluria single dose Unknown Completed [facility] Afluria Afluria Unknown Completed [facility] Flucelvax - single dose syringe Flucelvax - single dose syringe Unknown Completed [facility] Td Td Unknown Completed [facility] Moderna COVID-19 Vaccine (Low Dose Booster) Moderna COVID-19 Vaccine (Low Dose Booster) Unknown Completed [facility] Afluria single dose Afluria single dose Unknown Completed [facility] Afluria Afluria Unknown Completed [facility] Flucelvax - single dose syringe Flucelvax - single dose syringe Unknown Completed [facility] Td Td Unknown Completed [facility] COVID-19 Vaccine (Low Dose Booster) Moderna COVID-19 Vaccine (Low Dose Booster) Unknown Completed [facility] Afluria single dose Afluria single dose Unknown Completed [facility] Afluria Afluria Unknown Completed [facility] Flucelvax - single dose syringe Flucelvax - single dose syringe Unknown Completed [facility] Td Td Unknown Completed [facility] Moderna COVID-19 Vaccine (Low Dose Booster) Moderna COVID-19 Vaccine (Low Dose Booster) Unknown Completed [facility] Afluria single dose Afluria single dose Unknown Completed [facility] Afluria Afluria Unknown Completed [facility] Flucelvax - single dose syringe Flucelvax - single dose syringe Unknown Completed [facility] Td Td Unknown Completed [facility] COVID-19 Vaccine (Low Dose Booster) Moderna COVID-19 Vaccine (Low Dose Booster) Unknown Completed [facility] Afluria single dose Afluria single dose Unknown Completed [facility] Afluria Afluria Unknown Completed [facility] Flucelvax - single dose syringe Flucelvax - single dose syringe Unknown Completed [facility] Td Td Unknown Completed [facility] COVID-19 Vaccine (Low Dose Booster) Moderna COVID-19 Vaccine (Low Dose Booster) Unknown Completed [facility] Afluria single dose Afluria single dose Unknown Completed [facility] Afluria Afluria Unknown Completed [facility] Flucelvax - single dose syringe Flucelvax - single dose syringe Unknown Completed [facility] Td Td Unknown Completed [facility] Moderna COVID-19 Vaccine (Low Dose Booster) Moderna COVID-19 Vaccine (Low Dose Booster) Unknown Completed [facility] Afluria single dose Afluria single dose Unknown Completed [facility] Afluria Afluria Unknown Completed [facility] Flucelvax - single dose syringe Flucelvax - single dose syringe Unknown Completed [facility] Td Td Unknown Completed [facility] COVID-19 Vaccine (Low Dose Booster) Moderna COVID-19 Vaccine (Low Dose Booster) Unknown Completed [facility] Afluria single dose Afluria single dose Unknown Completed [facility] Afluria Afluria Unknown Completed [facility] Flucelvax - single dose syringe Flucelvax - single dose syringe Unknown Completed [facility] Td Td Unknown Completed [facility] COVID-19 Vaccine (Low Dose Booster) Moderna COVID-19 Vaccine (Low Dose Booster) Unknown Completed [facility] Afluria single dose Afluria single dose Unknown Completed [facility] Afluria Afluria Unknown Completed [facility] Flucelvax - single dose syringe Flucelvax - single dose syringe Unknown Completed [facility] Td Td Unknown Completed [facility] Moderna COVID-19 Vaccine (Low Dose Booster) Moderna COVID-19 Vaccine (Low Dose Booster) Unknown Completed [facility] Afluria (IIV4) - 3 years and older - SDS - 0.5mL Afluria (IIV4) - 3 years and older - SDS - 0.5mL Unknown Completed [facility] Afluria Afluria Unknown Completed [facility] Flucelvax (ccIIV4) - SDS - 0.5mL Flucelvax (ccIIV4) - SDS - 0.5mL Unknown Completed [facility] Td Td Unknown Completed [facility] Moderna COVID-19 Vaccine (Low Dose Booster) Moderna COVID-19 Vaccine (Low Dose Booster) Unknown Completed [facility] Afluria (IIV4) - 3 years and older - SDS - 0.5mL Afluria (IIV4) - 3 years and older - SDS - 0.5mL Unknown Completed [facility] Afluria Afluria Unknown Completed [facility] Flucelvax (ccIIV4) - SDS - 0.5mL Flucelvax (ccIIV4) - SDS - 0.5mL Unknown Completed [facility] Td Td Unknown Completed [facility] Moderna COVID-19 Vaccine (Low Dose Booster) Moderna COVID-19 Vaccine (Low Dose Booster) Unknown Completed [facility] Afluria (IIV4) - 3 years and older - SDS - 0.5mL Afluria (IIV4) - 3 years and older - SDS - 0.5mL Unknown Completed [facility] Afluria Afluria Unknown Completed [facility] Flucelvax (ccIIV4) - SDS - 0.5mL Flucelvax (ccIIV4) - SDS - 0.5mL Unknown Completed [facility] Td Td Unknown Completed [facility] Moderna COVID-19 Vaccine (Low Dose Booster) Moderna COVID-19 Vaccine (Low Dose Booster) Unknown Completed [facility] Afluria (IIV4) - 3 years and older - SDS - 0.5mL Afluria (IIV4) - 3 years and older - SDS - 0.5mL Unknown Completed [facility] Afluria Afluria Unknown Completed [facility] Flucelvax (ccIIV4) - SDS - 0.5mL Flucelvax (ccIIV4) - SDS - 0.5mL Unknown Completed [facility] Td Td Unknown Completed [facility] Moderna COVID-19 Vaccine (Low Dose Booster) Moderna COVID-19 Vaccine (Low Dose Booster) Unknown Completed [facility] Afluria (IIV4) - 3 years and older - SDS - 0.5mL Afluria (IIV4) - 3 years and older - SDS - 0.5mL Unknown Completed [facility] Afluria Afluria Unknown Completed [facility] Flucelvax (ccIIV4) - SDS - 0.5mL Flucelvax (ccIIV4) - SDS - 0.5mL Unknown Completed [facility] Td Td Unknown Completed [facility] Moderna COVID-19 Vaccine (Low Dose Booster) Moderna COVID-19 Vaccine (Low Dose Booster) Unknown Completed [facility] Afluria (IIV4) - 3 years and older - SDS - 0.5mL Afluria (IIV4) - 3 years and older - SDS - 0.5mL Unknown Completed [facility] Afluria Afluria Unknown Completed [facility] Flucelvax (ccIIV4) - SDS - 0.5mL Flucelvax (ccIIV4) - SDS - 0.5mL Unknown Completed [facility] Td Td Unknown Completed [facility] Moderna COVID-19 Vaccine (Low Dose Booster) Moderna COVID-19 Vaccine (Low Dose Booster) Unknown Completed [facility] Afluria (IIV4) - 3 years and older - SDS - 0.5mL Afluria (IIV4) - 3 years and older - SDS - 0.5mL Unknown Completed [facility] Afluria Afluria Unknown Completed [facility] Flucelvax (ccIIV4) - SDS - 0.5mL Flucelvax (ccIIV4) - SDS - 0.5mL Unknown Completed [facility] Td Td Unknown Completed [facility] Moderna COVID-19 Vaccine (Low Dose Booster) Moderna COVID-19 Vaccine (Low Dose Booster) Unknown Completed [facility] Afluria (IIV4) - 3 years and older - SDS - 0.5mL Afluria (IIV4) - 3 years and older - SDS - 0.5mL Unknown Completed [facility] Afluria Afluria Unknown Completed [facility] Flucelvax (ccIIV4) - SDS - 0.5mL Flucelvax (ccIIV4) - SDS - 0.5mL Unknown Completed [facility] Td Td Unknown Completed [facility] Moderna COVID-19 Vaccine (Low Dose Booster) Moderna COVID-19 Vaccine (Low Dose Booster) Unknown Completed [facility] Afluria (IIV4) - 3 years and older - SDS - 0.5mL Afluria (IIV4) - 3 years and older - SDS - 0.5mL Unknown Completed [facility] Afluria Afluria Unknown Completed [facility] Flucelvax (ccIIV4) - SDS - 0.5mL Flucelvax (ccIIV4) - SDS - 0.5mL Unknown Completed [facility] Td Td Unknown [facility] Moderna COVID-19 Vaccine (Low Dose Booster) Unknown Completed [facility] Afluria (IIV4) - 3 years and older - SDS - 0.5mL Afluria (IIV4) - 3 years and older - SDS - 0.5mL Unknown Completed [facility] Afluria Afluria Unknown Completed [facility] Flucelvax (ccIIV4) - SDS - 0.5mL Flucelvax (ccIIV4) - SDS - 0.5mL Unknown Completed [facility] Td Td Unknown Completed [facility] Moderna COVID-19 Vaccine (Low Dose Booster) Moderna COVID-19 Vaccine (Low Dose Booster) Unknown Completed [facility] Afluria (IIV4) - 3 years and older - SDS - 0.5mL Afluria (IIV4) - 3 years and older - SDS - 0.5mL Unknown Completed [facility] Afluria Afluria Unknown Completed [facility] Flucelvax (ccIIV4) - SDS - 0.5mL Flucelvax (ccIIV4) - SDS - 0.5mL Unknown Completed [facility] Td Td Unknown Completed [facility] MODERNA COVID-19 VACCINE (LOW DOSE BOOSTER) MODERNA COVID-19 VACCINE (LOW DOSE BOOSTER) Unknown Completed [facility] Afluria (IIV4) - 3 years and older - SDS - 0.5mL Afluria (IIV4) - 3 years and older - SDS - 0.5mL Unknown Completed [facility] Afluria Afluria Unknown Completed [facility] Flucelvax (ccIIV4) - SDS - 0.5mL Flucelvax (ccIIV4) - SDS - 0.5mL Unknown Completed [facility] Td Td Unknown Completed [facility] MODERNA COVID-19 VACCINE (LOW DOSE BOOSTER) MODERNA COVID-19 VACCINE (LOW DOSE BOOSTER) Unknown Completed [facility] Afluria (IIV4) - 3 years and older - SDS - 0.5mL Afluria (IIV4) - 3 years and older - SDS - 0.5mL Unknown Completed [facility] Afluria Afluria Unknown Completed [facility] Flucelvax (ccIIV4) - SDS - 0.5mL Flucelvax (ccIIV4) - SDS - 0.5mL Unknown Completed [facility] Td Td Unknown Completed [facility] MODERNA COVID-19 VACCINE (LOW DOSE BOOSTER) MODERNA COVID-19 VACCINE (LOW DOSE BOOSTER) Unknown Completed [facility] Afluria (IIV4) - 3 years and older - SDS - 0.5mL Afluria (IIV4) - 3 years and older - SDS - 0.5mL Unknown Completed [facility] Afluria Afluria Unknown Completed [facility] Flucelvax (ccIIV4) - SDS - 0.5mL Flucelvax (ccIIV4) - SDS - 0.5mL Unknown Completed [facility] Td [facility]SE [facility] MODERNA COVID-19 VACCINE (LOW DOSE BOOSTER) Unknown Completed [facility] Afluria (IIV4) - 3 years and older - SDS - 0.5mL Afluria (IIV4) - 3 years and older - SDS - 0.5mL Unknown Completed [facility] Afluria Afluria Unknown Completed [facility] Flucelvax (ccIIV4) - SDS - 0.5mL Flucelvax (ccIIV4) - SDS - 0.5mL Unknown Completed [facility] Td Td Unknown Completed [facility] MODERNA COVID-19 VACCINE (LOW DOSE BOOSTER) MODERNA COVID-19 VACCINE (LOW DOSE BOOSTER) Unknown Completed [facility] Afluria (IIV4) - 3 years and older - SDS - 0.5mL Afluria (IIV4) - 3 years and older - SDS - 0.5mL Unknown Completed [facility] Afluria Afluria Unknown Completed [facility] Flucelvax (ccIIV4) - SDS - 0.5mL Flucelvax (ccIIV4) - SDS - 0.5mL Unknown Completed [facility] Td Td Unknown Completed [facility] MODERNA COVID-19 VACCINE (LOW DOSE BOOSTER) MODERNA COVID-19 VACCINE (LOW DOSE BOOSTER) Unknown Completed [facility] Afluria (IIV4) - 3 years and older - SDS - 0.5mL Afluria (IIV4) - 3 years and older - SDS - 0.5mL Unknown Completed [facility] Afluria Afluria Unknown Completed [facility] Flucelvax (ccIIV4) - SDS - 0.5mL Flucelvax (ccIIV4) - SDS - 0.5mL Unknown Completed [facility] Td Td [facility]SE [facility] [place] VACCINE (LOW DOSE BOOSTER) Unknown Completed [facility] Afluria (IIV4) - 3 years and older - SDS - 0.5mL Afluria (IIV4) - 3 years and older - SDS - 0.5mL Unknown Completed [facility] Afluria Afluria Unknown Completed [facility] Flucelvax (ccIIV4) - SDS - 0.5mL Flucelvax (ccIIV4) - SDS - 0.5mL Unknown Completed [facility] Td Td Unknown Completed [facility] Vital Signs Vital Name Observation Time Observation Value Comments S ource height 2025-02-11 11:20:00 66.5 [in_i] Comm on [facility] temperature 2025-02-11 11:20:00 97.2 [degF] Com mon [facility] oximetry 2025-02-11 11:20:00 98 % Commo n [facility] respiratory rate 2025-02-11 11:20:00 16 /min [facility] blood pressure systolic 2025-02-11 11:20:00 112 mm[Hg] [facility] blood pressure diastolic 2025-02-11 11:20:00 62 mm[Hg] [facility] Systolic blood pressure 2024-11-13 15:23:00 124 mm[Hg] [facility] Diastolic blood pressure 2024-11-13 15:23:00 82 mm[Hg] [facility] Heart rate 2024-11-13 15:23:00 62 /min [facility] Respiratory rate 2024-11-13 15:23:00 18 /min [facility] Body height 2024-11-13 15:23:00 170.2 cm [facility] Body weight 2024-11-13 15:23:00 122.018 kg [facility] BMI 2024-11-13 15:23:00 42.13 kg/m2 [facility] Oxygen saturation in Arterial blood by Pulse oximetry 2024-11-13 15:23:00 99 /min [facility] height 2024-11-10 09:00:00 66.5 [in_i] Comm on [facility] weight 2024-11-10 09:00:00 271.4 [lb_av] Co mmon [facility] temperature 2024-11-10 09:00:00 96.5 [degF] Com mon [facility] bmi 2024-11-10 09:00:00 43.14 kg/m2 Comm on [facility] oximetry 2024-11-10 09:00:00 96 % Commo n [facility] respiratory rate 2024-11-10 09:00:00 16 /min Common [facility] blood pressure systolic 2024-11-10 09:00:00 124 mm[Hg] [facility] blood pressure diastolic 2024-11-10 09:00:00 76 mm[Hg] Common [facility] height 2024-11-10 09:00:00 66.5 [in_i] Comm on [facility] weight 2024-11-10 09:00:00 271.4 [lb_av] Co mmon [facility] temperature 2024-11-10 09:00:00 96.5 [degF] Com mon [facility] bmi 2024-11-10 09:00:00 43.14 kg/m2 Comm on [facility] oximetry 2024-11-10 09:00:00 96 % Commo n [facility] respiratory rate 2024-11-10 09:00:00 16 /min Common [facility] blood pressure systolic 2024-11-10 09:00:00 124 mm[Hg] Common [facility] blood pressure diastolic 2024-11-10 09:00:00 76 mm[Hg] [facility] height 2024-10-31 07:50:00 66.5 [in_i] Comm on [facility] weight 2024-10-31 07:50:00 270 [lb_av] Comm on [facility] bmi 2024-10-31 07:50:00 42.92 kg/m2 Comm on [facility] Systolic blood pressure 2024-09-24 20:01:00 124 mm[Hg] [facility] Diastolic blood pressure 2024-09-24 20:01:00 65 mm[Hg] [facility] Heart rate 2024-09-24 20:01:00 67 /min [facility] Body height 2024-09-24 20:01:00 170.2 cm [facility] height 2024-09-18 09:40:00 66.5 [in_i] Comm on [facility] weight 2024-09-18 09:40:00 271 [lb_av] Comm on [facility] temperature 2024-09-18 09:40:00 97 [degF] Comm on [facility] bmi 2024-09-18 09:40:00 43.08 kg/m2 Comm on [facility] oximetry 2024-09-18 09:40:00 95 % Commo n [facility] respiratory rate 2024-09-18 09:40:00 16 /min [facility] blood pressure systolic 2024-09-18 09:40:00 128 mm[Hg] [facility] blood pressure diastolic 2024-09-18 09:40:00 88 mm[Hg] [facility] height 2024-08-01 10:00:00 66.5 [in_i] Comm on [facility] weight 2024-08-01 10:00:00 285 [lb_av] Comm on [facility] temperature 2024-08-01 10:00:00 97.6 [degF] Com mon [facility] bmi 2024-08-01 10:00:00 45.31 kg/m2 Comm on [facility] oximetry 2024-08-01 10:00:00 94 % Commo n [facility] respiratory rate 2024-08-01 10:00:00 17 /min [facility] blood pressure systolic 2024-08-01 10:00:00 134 mm[Hg] [facility] blood pressure diastolic 2024-08-01 10:00:00 80 mm[Hg] [facility] Diastolic blood pressure 2024-06-30 15:28:00 80 mm[Hg] [facility] Heart rate 2024-06-30 15:28:00 59 /min [facility] Respiratory rate 2024-06-30 15:28:00 18 /min [facility] Body height 2024-06-30 15:28:00 167.6 cm [facility] Oxygen saturation in Arterial blood by Pulse oximetry 2024-06-30 15:28:00 98 /min [facility] Systolic blood pressure 2024-06-30 15:28:00 116 mm[Hg] [facility] height 2024-04-30 15:00:00 66.5 [in_i] Comm on [facility] weight 2024-04-30 15:00:00 290 [lb_av] Comm on [facility] temperature 2024-04-30 15:00:00 97.3 [degF] Com mon [facility] bmi 2024-04-30 15:00:00 46.1 kg/m2 Commo n [facility] oximetry 2024-04-30 15:00:00 98 % Commo n [facility] respiratory rate 2024-04-30 15:00:00 16 /min [facility] blood pressure systolic 2024-04-30 15:00:00 144 mm[Hg] [facility] blood pressure diastolic 2024-04-30 15:00:00 82 mm[Hg] [facility] Systolic blood pressure 2024-03-25 15:55:00 132 mm[Hg] [facility] Diastolic blood pressure 2024-03-25 15:55:00 66 mm[Hg] [facility] Heart rate 2024-03-25 15:55:00 63 /min [facility] Body height 2024-03-25 15:55:00 167.6 cm [facility] Body weight 2024-03-25 15:55:00 142.883 kg [facility] BMI 2024-03-25 15:55:00 50.84 kg/m2 [facility] Systolic blood pressure 2024-03-11 15:31:00 134 mm[Hg] [facility] Diastolic blood pressure 2024-03-11 15:31:00 84 mm[Hg] [facility] Heart rate 2024-03-11 15:31:00 66 /min Un[facility] Body temperature 2024-03-11 15:31:00 36.67 Daniela [facility] Respiratory rate 2024-03-11 15:31:00 18 /min [facility] Body height 2024-03-11 15:31:00 167.6 cm Univ [facility] Body weight 2024-03-11 15:31:00 142.883 kg Univ [facility] BMI 2024-03-11 15:31:00 50.84 kg/m2 [facility] height 2024-01-21 15:40:00 66.5 [in_i] Comm on [facility] weight 2024-01-21 15:40:00 290 [lb_av] Comm on [facility] temperature 2024-01-21 15:40:00 98 [degF] Comm on [facility] bmi 2024-01-21 15:40:00 46.1 kg/m2 Commo n [facility] height 2024-01-04 14:00:00 66.5 [in_i] Comm on [facility] weight 2024-01-04 14:00:00 296 [lb_av] Comm on [facility] 2024-01-04 14:00:00 47.05 kg/m2 Comm on [facility] height 2023-10-29 09:30:00 66.5 [in_i] Comm on [facility] weight 2023-10-29 09:30:00 286 [lb_av] Comm on [facility] 2023-10-29 09:30:00 45.47 kg/m2 Comm on [facility] height 2023-10-12 09:00:00 66.5 [in_i] Comm on [facility] weight 2023-10-12 09:00:00 298 [lb_av] Comm on [facility] temperature 2023-10-12 09:00:00 97.4 [degF] Com mon [facility] bmi 2023-10-12 09:00:00 47.37 kg/m2 Comm on [facility] oximetry 2023-10-12 09:00:00 97 % Commo n [facility] respiratory rate 2023-10-12 09:00:00 17 /min Common [facility] blood pressure systolic 2023-10-12 09:00:00 130 mm[Hg] Common [facility] blood pressure diastolic 2023-10-12 09:00:00 74 mm[Hg] Common [facility] height 2023-07-11 14:00:00 66.5 [in_i] Comm on [facility] weight 2023-07-11 14:00:00 300 [lb_av] Comm on [facility] temperature 2023-07-11 14:00:00 97.9 [degF] Com mon [facility] bmi 2023-07-11 14:00:00 47.69 kg/m2 Comm on [facility] oximetry 2023-07-11 14:00:00 97 % Commo n [facility] respiratory rate 2023-07-11 14:00:00 17 /min Common [facility] blood pressure systolic 2023-07-11 14:00:00 138 mm[Hg] Common [facility] blood pressure diastolic 2023-07-11 14:00:00 80 mm[Hg] Common [facility] height 2023-03-27 16:40:00 66.5 [in_i] Comm on [facility] weight 2023-03-27 16:40:00 306.2 [lb_av] Co mmon [facility] temperature 2023-03-27 16:40:00 98.0 [degF] Com mon [facility] bmi 2023-03-27 16:40:00 48.68 kg/m2 Comm on [facility] oximetry 2023-03-27 16:40:00 96 % Commo n [facility] respiratory rate 2023-03-27 16:40:00 16 /min Common [facility] blood pressure systolic 2023-03-27 16:40:00 142 mm[Hg] Common [facility] blood pressure diastolic 2023-03-27 16:40:00 79 mm[Hg] Common [facility] height 2023-03-22 11:00:00 66.5 [in_i] Comm on [facility] weight 2023-03-22 11:00:00 305 [lb_av] Comm on [facility] temperature 2023-03-22 11:00:00 98.0 [degF] Com mon [facility] bmi 2023-03-22 11:00:00 48.49 kg/m2 Comm on [facility] oximetry 2023-03-22 11:00:00 97 % Commo n [facility] respiratory rate 2023-03-22 11:00:00 17 /min Common [facility] blood pressure systolic 2023-03-22 11:00:00 134 mm[Hg] Common [facility] blood pressure diastolic 2023-03-22 11:00:00 78 mm[Hg] Common [facility] Respiratory rate 2023-03-08 13:48:00 15 /min [facility] Oxygen saturation in Arterial blood by Pulse oximetry 2023-03-08 13:48:00 99 /min [facility] Systolic blood pressure 2023-03-08 13:46:00 99 mm[Hg] [facility] Diastolic blood pressure 2023-03-08 13:46:00 57 mm[Hg] [facility] Body temperature 2023-03-08 13:31:00 36.11 Daniela [facility] Body height 2023-03-01 17:00:00 170.2 cm [facility] Body weight 2023-03-01 17:00:00 142.883 kg [facility] BMI 2023-03-01 17:00:00 49.34 kg/m2 [facility] Respiratory rate 2023-03-08 13:48:00 15 /min [facility] Oxygen saturation in Arterial blood by Pulse oximetry 2023-03-08 13:48:00 99 /min [facility] Systolic blood pressure 2023-03-08 13:46:00 99 mm[Hg] [facility] Diastolic blood pressure 2023-03-08 13:46:00 57 mm[Hg] [facility] Body temperature 2023-03-08 13:31:00 36.11 Daniela [facility] Body height 2023-03-01 17:00:00 170.2 cm Univ [facility] Body weight 2023-03-01 17:00:00 142.883 kg Univ [facility] BMI 2023-03-01 17:00:00 49.34 kg/m2 Univ [facility] Systolic blood pressure 2023-02-22 15:01:00 111 mm[Hg] [facility] Diastolic blood pressure 2023-02-22 15:01:00 83 mm[Hg] [facility] Heart rate 2023-02-22 15:01:00 56 /min [facility]ive [facility] Respiratory rate 2023-02-22 15:01:00 22 /min [facility] Oxygen saturation in Arterial blood by Pulse oximetry 2023-02-22 15:01:00 96 /min [facility] Body temperature 2023-02-22 14:47:00 36.67 Daniela [facility] Body height 2023-02-13 21:00:00 170.2 cm Univ [facility] Body weight 2023-02-13 21:00:00 143.79 kg [facility] BMI 2023-02-13 21:00:00 49.65 kg/m2 [facility] Systolic blood pressure 2023-02-22 13:27:00 123 mm[Hg] [facility] Diastolic blood pressure 2023-02-22 13:27:00 66 mm[Hg] [facility] Heart rate 2023-02-22 13:27:00 64 /min Unive [facility] Body temperature 2023-02-22 13:27:00 36.22 Daniela [facility] Respiratory rate 2023-02-22 13:27:00 18 /min [facility] Oxygen saturation in Arterial blood by Pulse oximetry 2023-02-22 13:27:00 98 /min [facility] Body height 2023-02-13 21:00:00 [facility].2 [facility] 2023-02-13 21:00:00 143.79 kg [facility] BMI 2023-02-13 21:00:00 49.65 kg/m2 [facility] height 2023-02-08 11:40:00 67 [in_i] Commo n [facility] weight 2023-02-08 11:40:00 327 [lb_av] Comm on [facility] bmi 2023-02-08 11:40:00 51.21 kg/m2 Comm on [facility] Systolic blood pressure 2022-10-30 21:21:00 139 mm[Hg] [facility] Diastolic blood pressure 2022-10-30 21:21:00 82 mm[Hg] [facility] Heart rate 2022-10-30 21:21:00 60 /min [facility] Respiratory rate 2022-10-30 21:21:00 19 /min [facility] Body height 2022-10-30 21:21:00 170.2 cm [facility] Body weight 2022-10-30 21:21:00 144.244 kg [facility] BMI 2022-10-30 21:21:00 49.81 kg/m2 [facility] Oxygen saturation in Arterial blood by Pulse oximetry 2022-10-30 21:21:00 96 /min [facility] height 2022-09-18 11:00:00 67 [in_i] Commo n [facility] weight 2022-09-18 11:00:00 327.8 [lb_av] Co mmon [facility] temperature 2022-09-18 11:00:00 97.0 [degF] Com mon [facility] bmi 2022-09-18 11:00:00 51.34 kg/m2 Comm on [facility] oximetry 2022-09-18 11:00:00 98 % Commo n [facility] respiratory rate 2022-09-18 11:00:00 15 /min Common [facility] blood pressure systolic 2022-09-18 11:00:00 123 mm[Hg] Common [facility] blood pressure diastolic 2022-09-18 11:00:00 74 mm[Hg] Common [facility] height 2022-08-28 14:40:00 67 [in_i] Commo n [facility] weight 2022-08-28 14:40:00 329 [lb_av] Comm on [facility] bmi 2022-08-28 14:40:00 51.52 kg/m2 Comm on [facility] oximetry 2022-08-28 14:40:00 96 % Commo n [facility] respiratory rate 2022-08-28 14:40:00 25 /min [facility] blood pressure systolic 2022-08-28 14:40:00 119 mm[Hg] Common [facility] blood pressure diastolic 2022-08-28 14:40:00 59 mm[Hg] Common [facility] height 2022-07-11 11:00:00 67 [in_i] Commo n [facility] weight 2022-07-11 11:00:00 318.6 [lb_av] Co mmon [facility] temperature 2022-07-11 11:00:00 97.3 [degF] Com mon [facility] bmi 2022-07-11 11:00:00 49.89 kg/m2 Comm on [facility] oximetry 2022-07-11 11:00:00 99 % Commo n [facility] respiratory rate 2022-07-11 11:00:00 15 /min Common [facility] blood pressure systolic 2022-07-11 11:00:00 129 mm[Hg] Common [facility] blood pressure diastolic 2022-07-11 11:00:00 76 mm[Hg] [facility] Systolic blood pressure 2022-04-20 18:36:00 95 mm[Hg] [facility] Diastolic blood pressure 2022-04-20 18:36:00 66 mm[Hg] [facility] Heart rate 2022-04-20 18:36:00 60 /min [facility] Body temperature 2022-04-20 18:36:00 36.67 Daniela [facility] Respiratory rate 2022-04-20 18:36:00 18 /min [facility] Body height 2022-04-20 18:36:00 170.2 cm [facility] Body weight 2022-04-20 18:36:00 145.151 kg [facility] BMI 2022-04-20 18:36:00 50.12 kg/m2 [facility] height 2022-04-10 10:40:00 67 [in_i] Commo n [facility] weight 2022-04-10 10:40:00 318.6 [lb_av] Co on [facility] temperature 2022-04-10 10:40:00 97.7 [degF] Com [facility] bmi 2022-04-10 10:40:00 49.89 kg/m2 Comm on [facility] oximetry 2022-04-10 10:40:00 98 % Commo n [facility] respiratory rate 2022-04-10 10:40:00 17 /min [facility] blood pressure systolic 2022-04-10 10:40:00 127 mm[Hg] [facility] blood pressure diastolic 2022-04-10 10:40:00 79 mm[Hg] Common [facility] height 2022-01-02 15:20:00 67 [in_i] Commo n [facility] weight 2022-01-02 15:20:00 317.2 [lb_av] Co on [facility] temperature 2022-01-02 15:20:00 96.4 [degF] Com [facility] bmi 2022-01-02 15:20:00 49.68 kg/m2 Comm on [facility] oximetry 2022-01-02 15:20:00 97 % Commo n [facility] respiratory rate 2022-01-02 15:20:00 15 /min Common [facility] blood pressure systolic 2022-01-02 15:20:00 96 mm[Hg] Common [facility] blood pressure diastolic 2022-01-02 15:20:00 60 mm[Hg] Common [facility] height 2021-12-14 10:00:00 67 [in_i] Commo n [facility] weight 2021-12-14 10:00:00 320 [lb_av] Comm on [facility] temperature 2021-12-14 10:00:00 96 [degF] Comm on [facility] bmi 2021-12-14 10:00:00 50.11 kg/m2 Comm on [facility] height 2021-11-10 09:20:00 67 [in_i] Commo n [facility] weight 2021-11-10 09:20:00 322 [lb_av] Comm on [facility] temperature 2021-11-10 09:20:00 97.6 [degF] Com mon [facility] bmi 2021-11-10 09:20:00 50.43 kg/m2 Comm on [facility] oximetry 2021-11-10 09:20:00 98 % Commo n [facility] blood pressure systolic 2021-11-10 09:20:00 131 mm[Hg] Common [facility] blood pressure diastolic 2021-11-10 09:20:00 82 mm[Hg] Common [facility] height 2021-10-07 11:20:00 67 [in_i] Commo n [facility] weight 2021-10-07 11:20:00 319.8 [lb_av] Co mmon [facility] temperature 2021-10-07 11:20:00 97.2 [degF] Com mon [facility] bmi 2021-10-07 11:20:00 50.08 kg/m2 Comm on [facility] oximetry 2021-10-07 11:20:00 97 % Commo n [facility] respiratory rate 2021-10-07 11:20:00 18 /min Common [facility] blood pressure systolic 2021-10-07 11:20:00 111 mm[Hg] Common [facility] blood pressure diastolic 2021-10-07 11:20:00 73 mm[Hg] Common [facility] Respiratory Rate 2025-02-24 09:30:00 Dariel Renee BP Systolic 2025-02-24 09:30:00 113 mm[Hg] Zack Renee BP Diastolic 2025-02-24 09:30:00 74 mm[Hg] Jose Ramon Renee Weight Measured 2025-02-24 09:30:00 260.00 pounds Dariel Renee Height Measured 2025-02-24 09:30:00 67.00 inches Dariel Renee Body Temperature 2025-02-24 09:30:00 Dariel Renee Heart Rate 2025-02-24 09:30:00 54.00 /min Lulajamee Weiss V[facility]ctor Systolic blood pressure 2024-11-13 15:23:00 124 mm[Hg] [place] [facility] Diastolic blood pressure 2024-11-13 15:23:00 82 mm[Hg] [facility] Heart rate 2024-11-13 15:23:00 62 /[facility] 2024-11-13 15:23:00 18 /min [facility] Body height 2024-11-13 15:23:00 170.2 cm [facility] Body weight 2024-11-13 15:23:00 122.018 kg [facility] BMI 2024-11-13 15:23:00 42.13 kg/m2 [facility] Oxygen saturation in Arterial blood by Pulse oximetry 2024-11-13 15:23:00 99 /min [facility] Systolic blood pressure 2024-09-24 20:01:00 124 mm[Hg] [place] [facility] Diastolic blood pressure 2024-09-24 20:01:00 65 mm[Hg] [place] [facility] Heart rate 2024-09-24 20:01:00 67 /min [facility] Body height 2024-09-24 20:01:00 170.2 cm [facility] Respiratory rate 2024-06-30 15:28:00 18 /min [facility] Oxygen saturation in Arterial blood by Pulse oximetry 2024-06-30 15:28:00 98 /min [place] [facility] Body weight 2024-03-25 15:55:00 142.883 kg [facility] BMI 2024-03-25 15:55:00 50.84 kg/m2 [facility] Body temperature 2024-03-11 15:31:00 36.67 Daniela [facility] BP Systolic 2022-05-12 15:36:00 93 mm[Hg] Zack Renee BP Diastolic 2022-05-12 15:36:00 60 mm[Hg] Jose Ramon Renee Weight Measured 2022-05-12 15:36:00 Dariel Renee Height Measured 2022-05-12 15:36:00 Dariel Renee Body Temperature 2022-05-12 15:36:00 98.10 degrees Dariel Renee Heart Rate 2022-05-12 15:36:00 93.00 /min Lula Renee Respiratory Rate 2022-05-12 15:36:00 18.00 /min Dariel Renee Procedures Procedure Date / Time Performed Performing Clinician Source XR SHOULDER 2+ VW LEFT 2025-04-08 18:41:07 Balwinder Singleton [facility] CT HIP LEFT WO CONTRAST 2024-10-13 16:46:58 Ivy Vivar [facility] CT HIP LEFT WO CONTRAST 2024-10-13 16:46:58 Rachel [facility] XR HIPS 2 VW LEFT 2024-09-24 20:23:53 Rachel Ivy [facility] DERMATOPATHOLOGY TISSUE EXAM 2024-07-10 20:01:00 Yanet Simon [facility] CT HEAD WO CONTRAST 2024-07-07 20:56:14 NewtonPeng diaz [facility] CT HEAD WO CONTRAST 2024-07-07 20:56:14 Newton Peng John [facility] REFERRAL- REQUEST/RESPONSE 2024-05-01 19:28:59 Doctor Unassigned, [place] [facility] REFERRAL- REQUEST/RESPONSE 2024-03-06 16:12:55 Doctor Unassigned, [place] [facility] PHACOEMULSIFICATION OF CATARACT WITH INTRAOCULAR LENS IMPLANT 2023-03-08 12:53:00 Neema, Prasad De Los Santos [facility] POCT GLUCOSE (AUTOMATED) 2023-03-08 12:15:00 Neema, Prasad De Los Santos [facility] POCT GLUCOSE (AUTOMATED) 2023-03-08 12:15:00 Neema, Prasad De Los aSntos [facility] PATIENT QUESTIONNAIRE 2023-03-08 05:01:00 Doctor Unassigned, [place] [facility] PHACOEMULSIFICATION OF CATARACT WITH INTRAOCULAR LENS IMPLANT 2023-02-22 14:12:00 Neema, Prasad De Los Santos [facility] POCT GLUCOSE (AUTOMATED) 2023-02-22 13:26:00 Neema, Prasad De Los Santos [facility] POCT GLUCOSE (AUTOMATED) 2023-02-22 13:26:00 Neema, Prasad De Los Santos [facility] PATIENT QUESTIONNAIRE 2023-02-22 05:01:00 Doctor Unassigned, [place] [facility] DAY SURGERY - ADC 2023-02-22 05:01:00 Doctor Unassigned, [place] [facility] PATIENT QUESTIONNAIRE 2023-02-22 05:01:00 Doctor Unassigned, [place] [facility] DAY SURGERY - ADC 2023-02-22 05:01:00 Doctor Unassigned, [place] [facility] ASSIGNMENT OF BENEFITS 2023-02-13 16:19:16 Doctor Unassigned, [place] [facility] BI SCREENING TOMOSYNTHESIS BILATERAL 2022-05-05 15:19:33 Opal Gardner [facility] NOTICE OF PRIVACY PRACTICES 2022-05-05 14:01:43 Doctor Unassigned, [place] [facility] ASSIGNMENT OF BENEFITS 2022-05-05 14:01:20 Doctor Unassigned, [place] [facility] HCV ANTIBODY 2021-03-24 18:42:00 Adum, Opal Reynoso [facility] HIV 1/2 AG-AB WITH REFLEX 2021-03-24 18:42:00 Adum, Opal Angeles [facility] EXTERNAL LAB A1C 2018-08-19 16:00:00 Doctor Unassigned, [place] [facility] BASIC METABOLIC PANEL (NA, K , CL, CO2, GLUCOSE, BUN, CREATININE, CA) 2016-05-04 07:20:00 Balwinder Singleton [facility] KNEE, 2 VIEWS 2016-05-01 19:19:00 Balwinder Singleton [facility] CEMENT SACK BREAKER ORDER/REPORT PROCEDURE 2013-01-21 08:26:00 Re Beckwith [facility] MR LUMBAR SPINE WO CONTRAST 2012-12-11 20:16:00 Laura Fregoso [facility] PROFILE WHEN USED WITH [facility] 2012-04-09 22:39:00 Doctor Unassigned, [place] [facility] AUTOMATED DIFFERENTIAL 2012-04-09 22:39:00 Doctor Unassigned, [place] [facility] US PELVIS COMPLETE WITH TRANSVAGINAL 2012-04-09 18:17:00 Laura Fregoso [facility] CEMENT SACK BREAKER ORDER/REPORT PROCEDURE 2012-04-09 17:11:00 García Melara [facility] SURG PATH FINAL REPORT 2012-04-09 14:33:00 Ayesha Romero [facility] Encounters Start Date/Time End Date/Time Encounter Type Admission Type Attending Clinicians Care Facility Care Department Encounter ID Source 2025-02-04 16:32:00 Outpatient LeXochilt vidal [facility] [id number] [facility] 2024-10-29 10:01:00 Outpatient LeEliei [facility] [id number] [facility] 2023-10-11 13:33:00 Outpatient LeXochilt vidal [facility] [id number] [facility] 2023-03-22 10:41:00 Outpatient Xochilt Le [facility] [id number] [facility] 2023-02-28 11:02:00 Outpatient Xochilt Le STLMLC ST[facility] [id number] [facility] 2023-02-08 11:09:00 Outpatient Xochilt Le STLMLC ST[facility] [id number] [facility] 2023-01-02 09:02:01 Outpatient Sofi Rush STLML[facility] ST[facility] [id number] [facility] 2023-01-01 09:08:00 Outpatient Sofi Rush STLMLC ST[facility] [id number] [facility] 2022-09-14 13:58:00 Outpatient Shabazz, Na STLMLC STLMLC [id number] [facility] 2022-07-07 10:36:00 Outpatient Shabazz, Na STLMLC ST[facility] [id number] [facility] 2022-04-10 10:21:15 Outpatient Shabazz, Na STLMLC ST[facility] [id number] [facility] 2022-04-06 11:08:00 Outpatient Shabazz, Na STLMLC ST[facility]MLC [id number] [facility] 2022-01-25 10:27:01 Outpatient Shabazz, Na STLMLC STLMLC [id number] [facility] 2022-01-02 16:38:01 Outpatient Shabazz, Na STLMLC ST[facility]MLC [id number] [facility] 2021-12-21 14:25:40 Outpatient Shabazz, Na STLMLC STLMLC [id number] [facility] 2021-12-21 14:24:21 Outpatient Shabazz, Na STLMLC ST[facility]C [id number] [facility] 2021-12-21 14:13:58 Outpatient Shabazz, Na STLMLC STLMLC [id number] [facility] 2021-12-21 14:12:46 Outpatient Shabazz, Na STLMLC STLMLC [id number] [facility] 2021-12-21 13:36:34 Outpatient Shabazz, Na STLMLC STLMLC [id number] [facility] 2021-12-21 13:35:25 Outpatient Shabazz, Na STLMLC STLMLC [id number] [facility] 2021-12-21 13:20:19 Outpatient Shabazz, Na STLMLC STLMLC [id number] [facility] 2021-12-21 13:19:52 Outpatient Shabazz, Na STLMLC STLMLC [id number] [facility] 2021-12-21 12:41:36 Outpatient Shabazz, Na STLMLC STLMLC [id number] [facility] 2021-12-21 12:26:03 Outpatient Shabazz, Na STLMLC STLMLC [id number] [facility] 2021-12-21 12:18:00 Outpatient Shabazz, Na STLMLC STLMLC [id number] [facility] 2021-12-21 11:54:00 Outpatient Shabazz, Na STLMLC STLMLC [id number] [facility] 2021-12-21 11:53:41 Outpatient Shabazz, Na STLMLC STLMLC [id number] [facility] 2021-12-21 11:53:09 Outpatient Shabazz, Na STLMLC STLMLC [id number] [facility] 2021-12-21 11:35:33 Outpatient Shabazz, Na STLMLC STLMLC [id number] [facility] 2021-12-21 11:20:32 Outpatient Halle Shabazz [facility] STL[facility] [id number] [facility] 2021-12-21 11:18:09 Outpatient Halle Shabazz [facility] ST[facility] [id number] [facility] 2025-04-30 08:45:00 2025-04-30 08:45:00 Outpatient BALWINDER YANEZ CRAIG [facility] [id number] [facility] 2025-04-08 13:23:49 2025-04-08 23:59:00 Outpatient BALWINDER YANEZ CRAIG [facility] [id number] [facility] 2025-04-08 13:23:49 2025-04-08 23:59:00 Hospital Encounter Balwinder Singleton [facility] 1.2.840.114 350.1.13.10 4.2.7.2.686 [id number] [facility] 2025-03-26 00:00:00 2025-03-26 00:00:00 (TEL) [facility] ST[facility] [id number] [facility] 2025-03-23 00:00:00 2025-03-23 13:29:13 [facility] 1.2.840.114 350.1.13.10 4.2.7.2.686 [id number] [facility] 2025-03-22 00:00:00 2025-03-23 08:42:58 Peng Heath [facility] 1.2.840.114 350.1.13.10 4.2.7.2.686 [id number] [facility] 2025-02-24 09:27:12 2025-02-24 09:27:12 Outpatient [facility] [id number] Dariel Renee 2025-02-24 00:00:00 2025-02-24 00:00:00 Outpatient Visit [facility] [id number] [id number] Dariel Renee 2025-02-11 00:00:00 2025-02-11 00:00:00 OFFICE VISIT ESTAB PT LEVEL 4 STLMLC STLMLC [id number] [facility] 2025-02-10 00:00:00 2025-02-10 00:00:00 (TEL) STLMLC STLMLC [id number] [facility] 2025-02-04 00:00:00 2025-02-04 00:00:00 (TEL) STLMLC STLMLC [id number] [facility] 2024-05-01 00:00:00 2025-01-10 07:35:16 Orders Only Doctor Unassigned, [place] Doctor [place], [place] [facility] 1.2.840.114 350.1.13.10 4.2.7.2.686 [id number] [facility] 2012-04-09 00:00:00 2025-01-10 05:26:11 Orders Only Laura Fregoso [facility] 1.2.840.114 350.1.13.10 4.2.7.2.686 [id number] [facility] 2012-12-11 00:00:00 2025-01-10 04:56:57 Orders Only Laura Fregoso [facility] ([facility]) 1.2.840.114 350.1.13.10 4.2.7.2.686 [id number] [facility] 2016-05-01 00:00:00 2025-01-10 04:14:43 Orders Only Doctor Unassigned, [place] Doctor Unassigned, [place] [facility] ([facility]) 1.2.840.114 350.1.13.10 4.2.7.2.686 [id number] [facility] 2022-05-02 00:00:00 2025-01-10 02:48:02 Orders Only Ashlie Annygisela Dailey , Anny ARAUJO 1.2.840.114 350.1.13.10 4.2.7.2.686 [id number] [facility] 2024-03-06 00:00:00 2025-01-10 02:22:20 Orders Only Doctor Unassigned, [place] Doctor Unassigned, [place] [facility] ([facility] 1.2.840.114 350.1.13.10 4.2.7.2.686 [id number] [facility] 2024-11-24 00:00:00 2024-11-24 00:00:00 (TEL) [facility] [id number] [facility] 2024-11-24 00:00:00 2024-11-24 00:00:00 (TEL) STLC STLMLC [id number] [facility] 2024-11-18 00:00:00 2024-11-18 00:00:00 (TEL) STLC STLMLC [id number] [facility] 2024-11-14 00:00:00 2024-11-14 00:00:00 (TEL) STLC STLC [id number] [facility] 2024-11-13 10:00:00 2024-11-13 10:00:00 Office Visit Balwinder Singleton 1.2.840.1 [id number] 3.104.2.7 .3.470880 .8 [id number] [facility] 2024-11-13 10:00:00 2024-11-13 09:57:37 Outpatient BALWINDER YANEZ CRAIG [facility] [id number] [facility] 2024-11-13 00:00:00 2024-11-13 00:00:00 Travel 1.2.840.1 88943.1.1 3.104.2.7 .3.133011 .8 1.2.840.114 350.1.13.10 4.2.7.3.698 084.8 [id number] [facility] 2024-11-11 10:00:00 2024-11-11 10:00:00 Outpatient BALWINDER YANEZ CRAIG [facility] [id number] [facility] 2024-11-10 00:00:00 2024-11-10 00:00:00 Travel 1.2.840.1 [id number] 3.104.2.7 .3.936204 .8 1.2.840.114 350.1.13.10 4.2.7.3.698 084.8 [id number] [facility] 2024-11-10 00:00:00 2024-11-10 00:00:00 (WELLNESS) Wellness Visit [facility] [id number] [facility] 2024-10-31 00:00:00 2024-10-31 00:00:00 OFFICE VISIT ESTAB [facility]EL 4 [facility] [id number] [facility] 2024-10-28 00:00:00 2024-10-28 00:00:00 (TEL) [facility] [id number] [facility] 2024-10-28 00:00:00 2024-10-28 00:00:00 (TEL) [facility] [id number] [facility] 2024-10-13 10:18:33 2024-10-13 23:59:00 Outpatient IVY RIVERA SELENA [facility] [id number] [facility] 2024-10-13 10:00:00 2024-10-13 23:59:00 Hospital Encounter Ivy Vivar 1.2.840.1 78775.1.1 3.104.2.7 .3.838684 .8 [id number] [facility] 2024-10-06 00:00:00 2024-10-06 23:59:00 Outpatient R IVY VIVAR SELENA [facility] [id number] [facility] 2024-10-05 00:00:00 2024-10-06 12:35:45 Refill Peng Strange 1.2.840.1 34859.1.1 3.104.2.7 .3.264270 .8 [id number] [facility] 2024-09-24 15:01:16 2024-09-24 23:59:00 Outpatient R IVY VIVAR SELENA [facility] [id number] [facility] 2024-09-24 15:01:16 2024-09-24 23:59:00 Hospital Encounter Ivy Vivar 1.2.840.1 [id number] 3.104.2.7 .3.572209 .8 [id number] [facility] 2024-09-24 00:00:00 2024-09-24 16:16:45 Telephone Balwinder Singleton 1.2.840.1 28625.1.1 3.104.2.7 .3.911678 .8 [id number] [facility] 2024-09-24 15:30:00 2024-09-24 16:07:17 Office Visit Ivy Vivar 1.2.840.1 03981.1.1 3.104.2.7 .3.830070 .8 [id number] [facility] 2024-09-24 00:00:00 2024-09-24 00:00:00 Travel 1.2.840.1 21263.1.1 3.104.2.7 .3.560112 .8 1.2.840.114 350.1.13.10 4.2.7.3.698 084.8 [id number] [facility] 2024-09-18 00:00:00 2024-09-18 00:00:00 OFFICE VISIT ESTAB PT LEVEL 3 STLMLC STLMLC [id number] [facility] 2024-09-16 00:00:00 2024-09-16 00:00:00 (TEL) STLMLC STLMLC [id number] [facility] 2024-07-02 00:00:00 2024-08-02 18:18:57 Patient Secure Msg Doctor Unassigned, [place] Doctor Unassigned, [place] [facility] 1.2.840.114 350.1.13.10 4.2.7.2.686 [id number] [facility] 2024-08-01 00:00:00 2024-08-01 00:00:00 OFFICE VISIT ESTAB PT LEVEL 4 STLMLC STLMLC [id number] [facility] 2024-07-10 14:15:00 2024-07-10 14:35:57 Outpatient R ESTEPHANIA CORRALES [facility] [id number] [facility] 2024-07-10 14:15:00 2024-07-10 14:35:57 Office Visit Estephania Corrales Sarah Isabel 1.2.840.1 95444.1.1 3.104.2.7 .3.059315 .8 [id number] [facility] 2024-07-10 00:00:00 2024-07-10 00:00:00 Travel 1.2.840.1 95154.1.1 3.104.2.7 .3.517967 .8 1.2.840.114 350.1.13.10 4.2.7.3.698 084.8 [id number] [facility] 2024-07-04 00:00:00 2024-07-08 16:55:36 Telephone Peng Strange [facility] 1.2840.114 350.1.13.10 4.2.7.2.686 [id number] [facility] 2024-07-07 15:40:00 2024-07-07 23:59:00 Outpatient PENG SEXTON HOWARD [facility] [id number] [facility] 2024-07-07 15:40:00 2024-07-07 23:59:00 Hospital Encounter Peng Strange 1.2.840.1 55820.1.1 3.104.2.7 .3.964818 .8 [id number] [facility] 2024-07-07 00:00:00 2024-07-07 00:00:00 Travel 1.2.840.1 68003.1.1 3.104.2.7 .3.860333 .8 1.20.114 350.1.13.10 4.2.7.3.698 084.8 [id number] [facility] 2024-06-30 10:40:00 2024-06-30 11:34:25 Outpatient PENG SEXTON HOWARD [facility] [id number] [facility] 2024-06-30 10:40:00 2024-06-30 11:34:25 Office Visit Peng Strange [facility] 1.2840.114 350.1.13.10 4.2.7.2.686 [id number] [facility] 2024-05-01 00:00:00 2024-06-07 18:24:23 Patient Secure Msg Doctor Unassigned, [place] [facility] 1.2840.114 350.1.13.10 4.2.7.2.686 [id number] [facility] 2024-05-28 00:00:00 2024-05-28 00:00:00 (TEL) STLMLC STLMLC [id number] [facility] 2024-04-30 00:00:00 2024-04-30 00:00:00 OFFICE VISIT ESTAB PT LEVEL 4 STLMLC STLMLC [id number] [facility] 2024-04-23 00:00:00 2024-04-23 00:00:00 (TEL) STLMLC STLMLC [id number] [facility] 2024-03-25 11:30:00 2024-03-25 11:30:00 [facility] 1.2.840.114 350.1.13.10 4.2.7.2.686 [id number] [facility] 2024-03-25 11:30:00 2024-03-25 11:03:09 Outpatient R MAYUR ZURITA [facility] [id number] [facility] 2024-03-17 00:00:00 2024-03-17 00:00:00 Mayur Smith [facility] 1.2.840.114 350.1.13.10 4.2.7.2.686 [id number] [facility] 2024-03-11 11:30:00 2024-03-11 11:30:00 [facility] 1.2.840.114 350.1.13.10 4.2.7.2.686 [id number] [facility] 2024-03-11 11:30:00 2024-03-11 11:14:16 Outpatient R MAYUR ZURITA [facility] [id number] [facility] 2024-03-05 11:30:00 2024-03-05 11:30:00 Outpatient R MAYUR ZURITA [facility] [id number] [facility] 2024-02-26 00:00:00 2024-02-26 00:00:00 (TEL) STLMLC STLMLC [id number] [facility] 2024-02-21 00:00:00 2024-02-21 00:00:00 Outpatient [facility]BZW[facility] [id number] [facility] 2024-02-19 00:00:00 2024-02-19 00:00:00 (TEL) STLMLC STLMLC [id number] [facility] 2024-01-21 00:00:00 2024-01-21 00:00:00 OFFICE VISIT ESTAB PT LEVEL 4 STLMLC STLMLC [id number] [facility] 2024-01-04 00:00:00 2024-01-04 00:00:00 OFFICE VISIT ESTAB PT LEVEL 3 STLMLC STLMLC [id number] [facility] 2024-01-04 00:00:00 2024-01-04 00:00:00 (TEL) STLMLC STLMLC [id number] [facility] 2023-12-03 00:00:00 2023-12-03 00:00:00 (TEL) STLMLC STLMLC [id number] [facility] 2023-11-23 00:00:00 2023-11-23 00:00:00 (TEL) STLMLC STLMLC [id number] [facility] 2023-11-22 00:00:00 2023-11-22 00:00:00 (TEL) STLMLC STLMLC [id number] [facility] 2023-10-29 00:00:00 2023-10-29 00:00:00 OFFICE VISIT ESTAB PT LEVEL 4 STLMLC STLMLC [id number] [facility] 2023-10-29 00:00:00 2023-10-29 00:00:00 (TEL) STLMLC STLMLC [id number] [facility] 2023-10-12 00:00:00 2023-10-12 00:00:00 OFFICE VISIT ESTAB PT LEVEL 4 STLMLC STLMLC [id number] [facility] 2023-10-10 00:00:00 2023-10-10 00:00:00 (TEL) STLMLC STLMLC [id number] [facility] 2023-08-29 00:00:00 2023-08-29 00:00:00 (TEL) STLMLC STLMLC [id number] [facility] 2023-08-17 00:00:00 2023-08-17 00:00:00 (TEL) STLMLC STLMLC [id number] [facility] 2023-07-16 00:00:00 2023-07-16 00:00:00 Outpatient GC[facility]GCBZW_Ro man[facility] [id number] [facility] 2023-07-11 00:00:00 2023-07-11 00:00:00 OFFICE VISIT ESTAB PT LEVEL 4 STLMLC STLMLC [id number] [facility] 2023-07-09 00:00:00 2023-07-09 00:00:00 (TEL) STLMLC STLMLC [id number] [facility] 2023-07-02 00:00:00 2023-07-02 00:00:00 (TEL) STLMLC STLMLC [id number] [facility] 2023-06-12 00:00:00 2023-06-12 00:00:00 (TEL) STLMLC STLMLC [id number] [facility] 2023-05-03 00:00:00 2023-05-03 00:00:00 (TEL) STLMLC STLMLC [id number] [facility] 2023-04-24 00:00:00 2023-04-24 00:00:00 (TEL) STLMLC STLMLC [id number] [facility] 2023-04-20 10:30:00 2023-04-20 10:30:00 Outpatient R OPAL GARDNER [facility] [id number] [facility] 2023-04-20 10:30:00 2023-04-20 10:30:00 Outpatient R OPAL GARDNER [facility] [id number] [facility] 2023-03-27 00:00:00 2023-03-27 00:00:00 OFFICE VISIT ESTAB PT LEVEL 4 STLMLC STLMLC [id number] [facility] 2023-03-23 00:00:00 2023-03-23 00:00:00 (TEL) STLMLC STLMLC [id number] [facility] 2023-03-22 00:00:00 2023-03-22 00:00:00 OFFICE VISIT ESTAB PT LEVEL 4 STLMLC STLMLC [id number] [facility] 2023-03-08 08:34:00 2023-03-08 09:09:00 Surgery Prasad Alarcon [facility] 1.2.840.114 350.1.13.10 4.2.7.2.686 [id number] [facility] 2023-03-08 07:01:00 2023-03-08 09:08:00 Outpatient PRASAD MANZO [facility] OPH [id number] [facility] 2023-03-08 07:01:00 2023-03-08 09:08:00 Hospital Encounter Prasad Alarcon [facility] 1.2840.114 350.1.13.10 4.2.7.2.686 [id number] [facility] 2023-03-08 00:00:00 2023-03-08 00:00:00 Orders Only Doctor Unassigned, [place] [facility] 1.2.840.114 350.1.13.10 4.2.7.2.686 [id number] [facility] 2023-02-22 08:07:00 2023-02-22 10:09:00 Outpatient R PRASAD ALARCON [facility] [id number] [facility] 2023-02-22 08:07:00 2023-02-22 10:09:00 Hospital Encounter Prasad Alarcon [facility] 1.2.840.114 350.1.13.10 4.2.7.2.686 [id number] [facility] 2023-02-22 09:06:00 2023-02-22 09:41:00 Surgery Prasad Alarcon [facility] 1.2.840.114 350.1.13.10 4.2.7.2.686 [id number] [facility] 2023-02-13 00:00:00 2023-02-13 00:00:00 Orders Only Doctor Unassigned, [place] [facility] 1.2.840.114 350.1.13.10 4.2.7.2.686 [id number] [facility] 2023-02-08 00:00:00 2023-02-08 00:00:00 OFFICE VISIT ESTAB PT LEVEL 3 STLMLC STLMLC [id number] [facility] 2023-02-07 00:00:00 2023-02-07 00:00:00 (TEL) STLMLC STLMLC [id number] [facility] 2023-01-23 00:00:00 2023-01-23 00:00:00 (TEL) STLMLC STLMLC [id number] [facility] 2023-01-17 00:00:00 2023-01-17 00:00:00 (TEL) STLMLC STLMLC [id number] [facility] 2023-01-09 00:00:00 2023-01-09 00:00:00 (TEL) STLMLC STLMLC [id number] [facility] 2023-01-02 00:00:00 2023-01-02 00:00:00 (TEL) STLMLC STLMLC [id number] [facility] 2023-01-02 00:00:00 2023-01-02 00:00:00 (TEL) STLMLC STLMLC [id number] [facility] 2022-12-28 00:00:00 2022-12-28 00:00:00 Telephone Chen, Viviana Weiss [facility] 1.2.840.114 350.1.13.10 4.2.7.2.686 [id number] [facility] 2022-11-29 00:00:00 2022-11-29 00:00:00 (TEL) STLMLC STLMLC [id number] [facility] 2022-11-22 00:00:00 2022-11-22 00:00:00 (TEL) STLMLC STLMLC [id number] [facility] 2022-11-17 00:00:00 2022-11-17 00:00:00 (TEL) STLMLC STLMLC [id number] [facility] 2022-11-10 00:00:00 2022-11-10 00:00:00 (TEL) STLMLC STLMLC [id number] [facility] 2022-11-10 00:00:00 2022-11-10 00:00:00 OFFICE VISIT EST PT LEVEL 3 STLMLC STLMLC [id number] [facility] 2022-11-01 00:00:00 2022-11-01 00:00:00 (TEL) STLMLC STLMLC [id number] [facility] 2022-10-31 00:00:00 2022-10-31 00:00:00 (TEL) STLMLC STLMLC [id number] [facility] 2022-10-30 15:30:00 2022-10-30 16:33:07 Outpatient R BALWINDER SINGLETON [facility] [id number] [facility] 2022-10-30 15:30:00 2022-10-30 16:33:07 Office Visit NguyễnBalwinder [facility] 1..840.114 350.1.13.10 4.2.7.2.686 [id number] [facility] 2022-10-09 00:00:00 2022-10-09 00:00:00 (TEL) STLMLC STLMLC [id number] [facility] 2022-09-18 00:00:00 2022-09-18 00:00:00 OFFICE VISIT EST PT LEVEL 3 STLMLC STLMLC [id number] [facility] 2022-08-28 00:00:00 2022-08-28 00:00:00 OFFICE VISIT ESTAB PT LEVEL 2 STLMLC STLMLC [id number] [facility] 2022-07-28 00:00:00 2022-07-28 00:00:00 (TEL) STLMLC STLMLC [id number] [facility] 2022-07-27 00:00:00 2022-07-27 00:00:00 (TEL) STLMLC STLMLC [id number] [facility] 2022-07-11 00:00:00 2022-07-11 00:00:00 OFFICE VISIT ESTAB PT LEVEL 4 STLMLC STLMLC [id number] [facility] 2022-05-31 00:00:00 2022-05-31 00:00:00 (TEL) STLMLC STLMLC [id number] [facility] 2022-05-05 09:04:49 2022-05-05 23:59:00 Outpatient R OPAL GARDNER [facility] [id number] [facility] 2022-05-05 09:04:49 2022-05-05 23:59:00 Hospital Encounter Opal Gardner [facility] 1..840.114 350.1.13.10 4.2.7.2.686 [id number] 800 [id number] [facility] 2022-05-02 00:00:00 2022-05-02 00:00:00 Telephone Ashlie Anny ALCANTARAChandni FLOWER [facility] 1..840.114 350.1.13.10 4.2.7.2.686 [id number] [facility] 2022-04-20 13:30:00 2022-04-20 14:15:17 Outpatient R OPAL GARDNER [facility] [id number] [facility] 2022-04-20 13:30:00 2022-04-20 14:15:17 Office Visit Opal Gardner [facility] 1..840.114 350.1.13.10 4.2.7.2.686 [id number] [facility] 2022-04-20 00:00:00 2022-04-20 00:00:00 (TEL) STLMLC STLMLC [id number] [facility] 2022-04-10 00:00:00 2022-04-10 00:00:00 OFFICE VISIT ESTAB PT LEVEL 4 STLMLC STLMLC [id number] [facility] 2022-03-16 15:30:00 2022-03-16 15:30:00 Outpatient R LAYLA [facility] [id number] [facility] 2022-03-09 00:00:00 2022-03-09 00:00:00 (TEL) STLMLC STLMLC [id number] [facility] 2022-02-06 00:00:00 2022-02-06 00:00:00 (TEL) STLMLC STLMLC [id number] [facility] 2022-01-26 00:00:00 2022-01-26 00:00:00 OFFICE VISIT EST PT LEVEL 3 STLMLC STLMLC [id number] [facility] 2022-01-02 00:00:00 2022-01-02 00:00:00 (TEL) STLMLC STLMLC [id number] [facility] 2022-01-02 00:00:00 2022-01-02 00:00:00 OFFICE VISIT ESTAB PT LEVEL 2 STLMLC STLMLC [id number] [facility] 2021-12-14 00:00:00 2021-12-14 00:00:00 OFFICE VISIT EST PT LEVEL 3 STLMLC STLMLC [id number] [facility] 2021-11-24 00:00:00 2021-11-24 00:00:00 OFFICE VISIT EST PT LEVEL 3 STLMLC STLMLC [id number] [facility] 2021-11-23 00:00:00 2021-11-23 00:00:00 (TEL) STLMLC STLMLC [id number] [facility] 2021-11-21 00:00:00 2021-11-21 00:00:00 (TEL) STLMLC STLMLC [id number] [facility] 2021-11-10 00:00:00 2021-11-10 00:00:00 OFFICE VISIT ESTAB PT LEVEL 4 STLMLC STLMLC [id number] [facility] 2021-10-14 00:00:00 2021-10-14 00:00:00 (TEL) STLMLC STLMLC [id number] [facility] 2021-10-07 00:00:00 2021-10-07 00:00:00 (COVID Inj) COVID Injection STLMLC STLMLC [id number] [facility] 2021-10-07 00:00:00 2021-10-07 00:00:00 OFFICE VISIT ESTAB PT LEVEL 4 STLMLC STLMLC [id number] [facility] 2021-10-06 00:00:00 2021-10-06 00:00:00 (TEL) STLMLC STLMLC [id number] [facility] 2021-09-22 00:00:2021-09-22 00:00:00 (TEL) STLMLC STLMLC [id number] [facility] 2021-08-06 05:39:00 2021-08-07 12:45:00 Inpatient Joselito Hook TELE [id number] [facility] 2021-08-02 00:00:00 2021-08-02 00:00:00 (TEL) STLMLC STLMLC [id number] [facility] 2021-07-11 00:00:00 2021-07-11 00:00:00 Outpatient STLMLC STLMLC [id number] [facility] 2021-07-05 00:00:00 2021-07-05 00:00:00 Outpatient STLMLC STLMLC [id number] [facility] 2021-06-08 00:00:00 2021-06-08 00:00:00 Outpatient STLMLC STLMLC [id number] [facility] 2021-05-25 00:00:00 2021-05-25 00:00:00 Outpatient STLMLC STLMLC [id number] [facility] 2021-05-17 00:00:00 2021-05-17 00:00:00 Outpatient STLMLC STLMLC [id number] [facility] 2021-04-19 00:00:00 2021-04-19 00:00:00 Outpatient STLMLC STLMLC [id number] [facility] 2021-04-15 00:00:00 2021-04-15 00:00:00 Outpatient STLMLC STLMLC [id number] [facility] 2021-03-31 00:00:00 2021-03-31 00:00:00 Outpatient STLMLC STLMLC [id number] [facility] 2021-03-24 13:35:27 2021-03-24 13:50:27 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, 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 [facility] 1.2.840.114 350.1.13.10 4.2.7.2.686 [id number] 2021-03-24 13:35:27 2021-03-24 13:50:27 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, Adc Lab AdOpal toro [facility] 1.2.840.114 350.1.13.10 4.2.7.2.686 [id number] [facility] 2021-03-24 13:15:00 2021-03-24 13:15:00 Outpatient R ADOPAL TORO [facility] [id number] [facility] 2021-03-11 14:23:31 2021-03-11 16:29:07 Office Visit Adum, Opal Reynoso [facility] Building 1.2.840.114 350.1.13.10 4.2.7.2.686 [id number] 2021-03-11 14:23:31 2021-03-11 16:29:07 Office Visit Adum, Opal Reynoso [facility] 1.2.840.114 350.1.13.10 4.2.7.2.686 [id number] [facility] 2021-03-11 14:30:00 2021-03-11 14:30:00 [facility] [id number] [facility] 2021-03-11 00:00:00 2021-03-11 00:00:00 Orders Only Doctor Unassigned, [place] [facility] 1.2.840.114 350.1.13.10 4.2.7.2.686 [id number] [id number] [facility] 2021-03-10 00:00:00 2021-03-10 00:00:00 Telephone Inga Lazo 1.2.840.114 350.1.13.10 4.2.7.2.686 [id number] [facility] 2021-02-25 00:00:00 2021-02-25 00:00:00 Outpatient STLMLC STLMLC [id number] [facility] 2021-02-20 00:00:00 2021-02-20 00:00:00 Outpatient STLMLC STLMLC [id number] [facility] 2021-02-15 00:00:00 2021-02-15 00:00:00 Outpatient STLMLC STLMLC [id number] [facility] 2021-02-11 00:00:00 2021-02-11 00:00:00 Outpatient STLMLC STLMLC [id number] [facility] 2021-02-10 00:00:00 2021-02-10 00:00:00 Outpatient STLMLC STLMLC [id number] [facility] 2021-02-09 00:00:00 2021-02-09 00:00:00 Outpatient STLMLC STLMLC [id number] [facility] 2021-02-07 00:00:00 2021-02-07 00:00:00 Outpatient STLMLC STLMLC [id number] [facility] 2021-01-30 16:10:00 2021-01-30 16:10:00 Outpatient [facility] [id number] [facility] 2021-01-29 00:00:00 2021-01-29 00:00:00 Outpatient STLMLC STLMLC [id number] [facility] 2021-01-25 00:00:00 2021-01-25 00:00:00 Outpatient STLMLC STLMLC [id number] [facility] 2021-01-18 00:00:00 2021-01-18 00:00:00 Outpatient STLMLC STLMLC [id number] [facility] 2021-01-02 15:10:00 2021-01-02 15:10:00 Outpatient JESSICA HELTON [facility] [id number] [facility] 2020-12-07 00:00:00 2020-12-07 00:00:00 Outpatient STLMLC STLMLC [id number] [facility] 2020-11-04 00:00:00 2020-11-04 00:00:00 Outpatient STLMLC STLMLC [id number] [facility] 2020-11-03 00:00:00 2020-11-03 00:00:00 Outpatient STLMLC STLMLC [id number] [facility] 2020-09-27 00:00:00 2020-09-27 00:00:00 Outpatient STLMLC STLMLC [id number] [facility] 2020-09-06 00:00:00 2020-09-06 00:00:00 Outpatient STLMLC STLMLC [id number] [facility] 2020-07-06 11:42:00 2020-07-06 11:42:00 [facility] Family [facility] Medicine [id number] [facility] 2020-07-05 10:00:00 2020-07-05 10:00:00 [facility] [place] [facility] Medicine [id number] [facility] 2020-07-02 00:00:00 2020-07-02 00:00:00 Telephone Peng Strange [facility] 1.2.840.114 350.1.13.10 4.2.7.2.686 [id number] [facility] 2020-06-14 13:12:00 2020-06-14 13:12:[address] [facility] [address] [facility] [place] Family Medicine [id number] [facility] 2020-06-01 12:30:00 2020-06-01 23:59:00 Hospital Encounter Peng Strange [facility] 1.2.840.114 350.1.13.10 4.2.7.2.686 [id number] [facility] 2020-06-01 00:00:00 2020-06-01 00:00:00 Outpatient PENG SEXTON HOWARD [facility] [id number] [facility] 2020-05-28 00:00:00 2020-05-28 00:00:00 Refill Peng Strange [facility] 1.2.840.114 350.1.13.10 4.2.7.2.686 [id number] [facility] 2020-05-27 15:57:00 2020-05-27 15:57:00 Outpatient [facility] [id number] [facility] 2020-05-11 00:00:00 2020-05-11 00:00:00 Outpatient PENG SEXTON HOWARD [facility] [id number] [facility] 2020-05-11 00:00:00 2020-05-11 00:00:00 Telephone [facility] 1.2.840.114 350.1.13.10 4.2.7.2.686 [id number] [facility] 2020-05-04 13:46:00 2020-05-04 13:46:00 Outpatient [facility] [id number] [facility] 2020-04-29 00:00:00 2020-04-29 00:00:00 Telephone Peng Strange [facility] Professio [facility] Building 1.2.840.114 350.1.13.10 4.2.7.2.686 [id number] [facility] 2020-04-23 00:00:00 2020-04-23 00:00:00 Telephone Peng Strange [facility] Professio nal Building 1.2.840.114 350.1.13.10 4.2.7.2.686 [id number] [facility] 2020-04-21 16:33:00 2020-04-21 16:33:[address] [facility] [id number] [facility] 2020-04-01 10:40:00 2020-04-01 10:40:00 Outpatient [facility] Medicine [facility] Medicine [id number] [facility] 2020-03-08 16:19:00 2020-03-08 16:19:00 [facility] Medicine [facility] Medicine [id number] [facility] 2020-03-01 14:28:00 2020-03-01 14:28:00 Out[facility] Medicine [facility] Medicine [id number] [facility] 2020-02-20 08:21:37 2020-02-20 15:48:50 Telemedici ne [facility] 1..840.114 350.1.13.10 4.2.7.2.686 [id number] [facility] 2020-02-20 08:40:00 2020-02-20 08:40:00 Outpatient PENG SEXTON HOWARD [facility] [id number] [facility] 2020-01-28 16:24:00 2020-01-28 16:24:00 [facility] Medicine [facility] Medicine [id number] [facility] 2020-01-13 00:00:00 2020-01-13 00:00:00 Orders Only Doctor Unassigned, [place] [facility] ..840.114 350.1.13.10 4.2.7.2.686 [id number] [facility] 2020-01-07 11:21:00 2020-01-07 11:21:00 Out[facility] Medicine [facility] Medicine [id number] [facility] 2020-01-05 14:40:00 2020-01-05 14:40:[address] [facility] [place] [facility] [id number] [facility] 2019-12-19 11:20:00 2019-12-19 11:20:[address] [facility] [place] [facility] [id number] [facility] 2019-11-17 10:40:00 2019-11-17 10:40:00 [address] [facility] [facility] [place] [facility] [id number] [facility] 2019-11-12 15:22:00 2019-11-12 15:22:[address] [facility] [address] [facility] [place] [facility] [id number] [facility] 2019-10-13 08:38:00 2019-10-13 08:38:00 [place] [facility] [address] [facility] [place] [facility] [id number] [facility] 2019-09-25 09:55:00 2019-09-25 09:55:[address] [facility] [place] [facility] [id number] [facility] 2019-09-12 10:00:00 2019-09-12 10:00:00 [address] [facility] [place] [facility] [id number] [facility] 2019-08-21 14:20:00 2019-08-21 14:20:[address] [facility] [place] [facility] [id number] [facility] 2019-08-14 09:45:00 2019-08-14 09:45:00 [facility] [place] [facility] [id number] [facility] 2019-07-23 09:30:00 2019-07-23 09:30:00 [facility] [place] [facility] [id number] [facility] 2019-07-21 00:00:00 2019-07-21 00:00:00 Orders Only Doctor Unassigned, [place] [facility] 1.2.840.114 350.1.13.10 4.2.7.2.686 [id number] [facility] 2019-07-18 13:20:00 2019-07-18 13:20:00 Outpatient [facility] [id number] [facility] 2019-07-09 00:00:00 2019-07-09 00:00:00 Telephone Balwinder Singleton [facility] 1.2.840.114 350.1.13.10 4.2.7.2.686 [id number] [facility] 2019-06-20 00:00:00 2019-06-20 00:00:00 Orders Only Doctor Unassigned, [place] [facility] 1.2.840.114 350.1.13.10 4.2.7.2.686 [id number] [facility] 2019-05-21 13:45:00 2019-05-21 13:45:00 [facility] [place] [facility] [id number] [facility] 2019-05-16 11:30:00 2019-05-16 11:30:00 [facility] [place] [facility] [id number] [facility] 2019-05-13 10:40:00 2019-05-13 10:40:00 Outpatient [facility] [id number] [facility] 2019-05-08 11:30:00 2019-05-08 11:30:00 [facility] [place] [facility] [id number] [facility] 2019-04-11 00:00:00 2019-04-11 00:00:00 Orders Only Doctor Unassigned, [place] [facility] 1.2.840.114 350.1.13.10 4.2.7.2.686 [id number] [facility] 2019-03-13 10:40:00 2019-03-13 10:40:[address] [facility] [address] [facility] [place] [facility] [address] [facility] Medicine [id number] [facility] 2019-02-19 11:30:00 2019-02-19 11:30:00 [facility] [place] [facility] [id number] [facility] 2019-02-14 11:15:00 2019-02-14 11:15:00 [facility] [place] [facility] [id number] [facility] 2019-02-05 09:30:00 2019-02-05 09:30:[address] [facility] Medicine [place] [facility] Medicine [id number] [facility] 2019-01-17 11:00:00 2019-01-17 11:00:00 [facility] [place] [facility] [id number] [facility] 2019-01-13 08:30:00 2019-01-13 08:30:00 [facility] [place] [facility] [id number] [facility] 2018-12-24 07:58:00 2018-12-24 07:58:00 [facility] [place] [facility] [id number] [facility] 2018-12-17 10:15:00 2018-12-17 10:15:00 [facility] [place] [facility] [id number] [facility] 2018-12-13 09:35:00 2018-12-13 09:35:[address] [facility] [address] [facility] [place] [facility] Medicine [id number] [facility] 2018-12-11 10:30:00 2018-12-11 10:30:00 [place] [facility] [address] [facility] [id number] [facility] 2018-08-22 08:12:00 2018-08-22 08:12:00 Outpatient [facility] [id number] [facility] 2018-08-20 09:15:00 2018-08-20 09:15:00 Outpatient [facility] Medicine [facility] Medicine [id number] [facility] 2018-08-05 14:15:00 2018-08-05 14:15:00 Outpatient [facility] [id number] [facility] 2016-04-28 09:15:00 2016-04-28 09:15:00 Outpatient BALWINDER YANEZ CRAIG [facility] [id number] [facility] 2015-02-17 00:00:00 2015-02-17 00:00:00 Orders Only Doctor Unassigned, [place] [facility] 1.2840.114 350.1.13.10 4.2.7.2.686 [id number] [facility] 2014-08-19 00:00:00 2014-08-19 00:00:00 Orders Only Doctor Unassigned, [place] [facility] 1.2.840.114 350.1.13.10 4.2.7.2.686 [id number] [facility] 2014-07-28 00:00:00 2014-07-28 00:00:00 Orders Only Doctor Unassigned, [place] [facility] 1.2.840.114 350.1.13.10 4.2.7.2.686 [id number] [id number] [facility] 2014-06-18 00:00:00 2014-06-18 00:00:00 Orders Only Doctor Unassigned, [place] [facility] 1.2.840.114 350.1.13.10 4.2.7.2.686 [id number] [facility] 2013-05-09 00:00:00 2013-05-09 00:00:00 Orders Only Doctor Unassigned, [place] [facility] 1.2.840.114 350.1.13.10 4.2.7.2.686 [id number] [id number] [facility] 2012-09-30 00:00:00 2012-09-30 00:00:00 Orders Only Doctor Unassigned, [place] [facility] 1.2.840.114 350.1.13.10 4.2.7.2.686 [id number] [facility] 2012-08-13 00:00:00 2012-08-13 00:00:00 Orders Only Doctor Unassigned, [place] [facility] 1.2.840.114 350.1.13.10 4.2.7.2.686 [id number] [facility] 2012-02-29 00:00:00 2012-02-29 00:00:00 Orders Only Doctor Unassigned, [place] [facility] 1.2.840.114 350.1.13.10 4.2.7.2.686 [id number] [facility] Results Test Description Test Time Test Comments Results Result Co mments Source CT HIP LEFT WO [id number] 17:11:01EXAM: CT HIP LEFT WO CONTRAST INDICATION: acute left hip pain s/p fall COMPARISON: Left hip radiographs, 09/24/2024 TECHNIQUE: Axial CT imaging through the left hip was performed without IVcontrast. Coronal and sagittal reformats were constructed and reviewed. FINDINGS: Noncontrast CT of the left hip demonstrates no acute fracture ordislocation. There is bepx-dd-bgyiuyvp left hip joint osteoarthrosis with mildsuperolateral osteophytosis. There is subchondral sclerosis and mildosteophytosis predominantly along the iliac side of the visualized leftsacroiliac joint. Insertional enthesophytosis of the lesser trochanter aswell as the posterior femur at the gluteus paddy insertion. Alignment nicolle natomic. No erosions or periosteal reaction. Small 10 mm focus of intramuscular fatty infiltration within the proximalsemitendinosis may represent benign intramuscular lipoma versus priormuscle strain. Mild proximal hamstring tendon insertional calcifications .Mild soft tissue swelling of the posterior medial proximal thigh/glutealsoft tissues.[facility] [id number] 13:15:32XR HIPS 2 VW LEFT HISTORY: ?Left hip pain ? COMPARISON: ?none available.[facility] Hospital[facility]PRE[facility]ENSIVE METABOL[facility] [id number] 00:00:00* Test Item Value Reference Range Interpretation Comme nts NUCLEATED RBCS (test code = 52497-7) 0.0 /100 WBC'S See_Comment [Automated message] The system which generated this result transmitted reference range: 0.0 /100 WBC'S. The reference range was not used to interpret this result as normal/abnormal. ABSOLUTE EOSINOPHILS (test code = 12914-0) 0.08 K/UL See_Comment [Automated message] The system which generated this result transmitted reference range: 0.00-0.50 K/UL. The reference range was not used to interpret this result as normal/abnormal. ABSOLUTE LYMPHOCYTES (test code = 74459-7) 2.75 K/UL See_Comment [Automated message] The system which generated this result transmitted reference range: 1.00-4.00 K/UL. The reference range was not used to interpret this result as normal/abnormal. ABSOLUTE MONOCYTES (test code = 14292-0) 0.53 K/UL See_Comment [Automated message] The system which generated this result transmitted reference range: 0.20-1.00 K/UL. The reference range was not used to interpret this result as normal/abnormal. ABSOLUTE NEUTROPHILS (test code = 83716-3) 2.32 K/UL See_Comment [Automated message] The system which generated this result transmitted reference range: 1.50-7.50 K/UL. The reference range was not used to interpret this result as normal/abnormal. BASOPHILS (test code = 41773-5) 0.4 % EOSINOPHILS (test code = 70981-3) 1.4 % HEMATOCRIT (test code = 14305-0) 47.3 % See_Comment H [Automated messa ge] The system which generated this result transmitted reference range: 34.0-45.0 %. The reference range was not used to interpret this result as normal/abnormal. HEMOGLOBIN (test code = 718-7) 15.0 G/DL See_Comment [Automated messa ge] The system which generated this result transmitted reference range: 11.5-15.5 G/DL. The reference range was not used to interpret this result as normal/abnormal. LYMPHOCYTES (test code = 40438-2) 48.2 % MCH (test code = 63476-0) 28.5 PG See_Comment [Automated messa ge] The system which generated this result transmitted reference range: 25.0-33.0 PG. The reference range was not used to interpret this result as normal/abnormal. MCHC (test code = 85652-0) 31.7 G/DL See_Comment [Automated messa ge] The system which generated this result transmitted reference range: 31.0-36.0 G/DL. The reference range was not used to interpret this result as normal/abnormal. MCV (test code = 15081-0) 89.9 fL See_Comment [Automated messa ge] The system which generated this result transmitted reference range: 80.0-99.0 fL. The reference range was not used to interpret this result as normal/abnormal. MONOCYTES (test code = 86458-8) 9.3 % NEUTROPHILS (test code = 58037-7) 40.5 % PLATELET COUNT (test code = 87838-4) 114 K/UL See_Comment L [Automated messa ge] The system which generated this result transmitted reference range: 130-400 K/UL. The reference range was not used to interpret this result as normal/abnormal. RBC (test code = 00596-2) 5.26 M/UL See_Comment [Automated messa ge] The system which generated this result transmitted reference range: 3.80-5.40 M/UL. The reference range was not used to interpret this result as normal/abnormal. RDW (test code = 23348-9) 13.0 % See_Comment [Automated messa ge] The system which generated this result transmitted reference range: 11.5-15.0 %. The reference range was not used to interpret this result as normal/abnormal. WBC (test code = 82015-7) 5.7 K/UL See_Comment [Automated messa ge] The system which generated this result transmitted reference range: 3.5-11.0 K/UL. The reference range was not used to interpret this result as normal/abnormal. HEMOGLOBIN A1c (test code = 4548-4) 5.8 % See_Comment H [Automated [employer] ge] The system which generated this result transmitted reference range: 4.2-5.6 %. The reference range was not used to interpret this result as normal/abnormal. CALC LDL CHOL (test code = 58902-1) 72 MG/DL See_Comment [Automated [employer] ge] The system which generated this result transmitted reference range: <100 MG/DL. The reference range was not used to interpret this result as normal/abnormal. CHOLESTEROL (test code = 2093-3) 135 MG/DL See_Comment [Automated [employer] ge] The system which generated this result transmitted reference range: <200 MG/DL. The reference range was not used to interpret this result as normal/abnormal. HDL CHOLESTEROL (test code = 2085-9) 44 MG/DL See_Comment [Automated [employer] ge] The system which generated this result transmitted reference range: >39 MG/DL. The reference range was not used to interpret this result as normal/abnormal. RISK RATIO LDL/HDL (test code = 23852-2) 1.64 RATIO See_Comment [Automated message] The system which generated this result transmitted reference range: <3.22 RATIO. The reference range was not used to interpret this result as normal/abnormal. TRIGLYCERIDES (test code = 2571-8) 100 MG/DL See_Comment [Automated [employer] ge] The system which generated this result transmitted reference range: <150 MG/DL. The reference range was not used to interpret this result as normal/abnormal. ALBUMIN, URINE, RANDOM (test code = 26312-9) 1.2 MG/DL NOT ESTAB MG/DL CALC ALBUMIN/CREAT, RND (test code = 20162-2) 3 MG/G See_Comment [Automated [employer] ge] The system which generated this result transmitted reference range: <30 MG/G. The reference range was not used to interpret this result as normal/abnormal. CREATININE, URINE, CONC. (test code = 2161-8) 451.0 MG/DL NOT ESTAB MG/DL ALBUMIN (test code = 1751-7) 4.2 G/DL See_Comment [Automated messa ge] The system which generated this result transmitted reference range: 3.5-5.2 G/DL. The reference range was not used to interpret this result as normal/abnormal. ALKALINE PHOSPHATASE (test code = 6768-6) 55 U/L See_Comment [Automated message] The system which generated this result transmitted reference range: 40-136 U/L. The reference range was not used to interpret this result as normal/abnormal. BILIRUBIN, TOTAL (test code = 1975-2) 1.2 MG/DL See_Comment [Automated messa ge] The system which generated this result transmitted reference range: <=1.2 MG/DL. The reference range was not used to interpret this result as normal/abnormal. BUN (test code = 3094-0) 7 MG/DL See_Comment L [Automated messa ge] The system which generated this result transmitted reference range: 8-23 MG/DL. The reference range was not used to interpret this result as normal/abnormal. CALCIUM (test code = 13334-2) 9.6 MG/DL See_Comment [Automated messa ge] The system which generated this result transmitted reference range: 8.5-10.5 MG/DL. The reference range was not used to interpret this result as normal/abnormal. CALC A/G RATIO (test code = 1759-0) 1.7 RATIO See_Comment [Automated messa ge] The system which generated this result transmitted reference range: 1.0-2.6 RATIO. The reference range was not used to interpret this result as normal/abnormal. CALC BUN/CREAT (test code = 3097-3) 6 RATIO See_Comment [Automated messa ge] The system which generated this result transmitted reference range: 6-28 RATIO. The reference range was not used to interpret this result as normal/abnormal. CALC GLOBULIN (test code = 32859-3) 2.5 G/DL See_Comment [Automated messa ge] The system which generated this result transmitted reference range: 1.9-3.7 G/DL. The reference range was not used to interpret this result as normal/abnormal. CARBON DIOXIDE (test code = 1963-8) 30 MEQ/L See_Comment [Automated messa ge] The system which generated this result transmitted reference range: 19-31 MEQ/L. The reference range was not used to interpret this result as normal/abnormal. CHLORIDE (test code = 2075-0) 103 MEQ/L See_Comment [Automated messa ge] The system which generated this result transmitted reference range: 95-107 MEQ/L. The reference range was not used to interpret this result as normal/abnormal. CREATININE (test code = 2160-0) 1.17 MG/DL See_Comment [Automated messa ge] The system which generated this result transmitted reference range: 0.60-1.30 MG/DL. The reference range was not used to interpret this result as normal/abnormal. eGFR (2020 CKD-EPI) (test code = 61774-9) 53 ML/MIN/1.73 See_Comment L [Automated message] The system which generated this result transmitted reference range: >60 ML/MIN/1.73. The reference range was not used to interpret this result as normal/abnormal. GLUCOSE (test code = 1558-6) 90 MG/DL See_Comment [Automated messa ge] The system which generated this result transmitted reference range: 70-99 MG/DL. The reference range was not used to interpret this result as normal/abnormal. POTASSIUM (test code = 2823-3) 3.5 MEQ/L See_Comment [Automated messa ge] The system which generated this result transmitted reference range: 3.5-5.4 MEQ/L. The reference range was not used to interpret this result as normal/abnormal. PROTEIN, TOTAL (test code = 2885-2) 6.7 G/DL See_Comment [Automated messa ge] The system which generated this result transmitted reference range: 6.1-8.3 G/DL. The reference range was not used to interpret this result as normal/abnormal. AST (test code = 1920-8) 30 U/L See_Comment [Automated messa ge] The system which generated this result transmitted reference range: 9-40 U/L. The reference range was not used to interpret this result as normal/abnormal. ALT (test code = 1742-6) 39 U/L See_Comment [Automated messa ge] The system which generated this result transmitted reference range: 5-40 U/L. The reference range was not used to interpret this result as normal/abnormal. SODIUM (test code = 2951-2) 143 MEQ/L See_Comment [Automated messa ge] The system which generated this result transmitted reference range: 133-146 MEQ/L. The reference range was not used to interpret this result as normal/abnormal. CT HEAD WO [id number] 21:56:33CT HEAD WO CONTRAST HISTORY: Female 58 [...] air cells andvisualized paranasal air sinuses are clear.[facility]/[id number] 19:28:59Ordered by an unspecified provider.[facility] REFERRAL- REQUEST/[id number] 16:12:55Ordered by an unspecified provider. [facility] HospitalSTREP A [id number] 00:00:00* Test Item Value Reference Range Interpretation Comme nts Result (test code = 69266-9) NEG POCT GLUCOSE (AUTOMATED)2023-03-08 12:18:46* Test Item Value Reference Range Interpretation Comme nts POCT GLU (test code = 0671341751) 114 mg/dL 70-110 H Lab Interpretation (test cod e = 81519-8) Abnormal [facility] GLU[facility] (AUTOMATED)2023-03-08 12:18:46* Test Item Value Reference Range Interpretation Comme nts POCT GLU (test code = 8676697951) 114 mg/dL 70-110 H Lab Interpretation (test cod e = 79170-0) Abnormal [facility] GLUCOSE (AUTOMATED)2023-02-22 13:28:04* Test Item Value Reference Range Interpretation Comme nts POCT GLU (test code = 8541628079) 124 mg/dL 70-110 H Lab Interpretation (test cod e = 62656-5) Abnormal [facility] GLUCOSE (AUTOMATED)2023-02-22 13:28:04* Test Item Value Reference Range Interpretation Comme nts POCT GLU (test code = 5026853322) 124 mg/dL 70-110 H Lab Interpretation (test cod e = 62360-4) Abnormal [facility] [id number] 08:33:00* Test Item Value Reference Range Interpretation Comme nts GLUCOSE BEDSIDE TESTING (meño t code = GLUBED) 72 MG/DL 60-99 N - XR CHEST [id number] 06:52:00 [facility] 1965 Sex: F Patient Name: MADHAVI MICHAEL Unit No: [id number] EXAMS: CPT CODE: [id number] XR CHEST 1V 36722 EXAM: CHEST ONE VIEW INDICATION: S/P ICD [...] 16 Orig Print D/T: S: 08/07/2021 (0655) [facility] NAME: MADHAVI MICHAEL [address] [address] PHYS: [place] [address] : 1965 AGE: 55 SEX: F LOC: Markos Quigley PHONE #: [phone] EXAM DATE: 08/07/2021 STATUS: ADM IN FAX #: [phone] RADIOLOGY NO: PAGE 1 Signed ReportBASIC METABOLIC [id number] 06:15:00* Test Item Value Reference Range Interpretation [...] CA) 8.9 MG/DL 8.4-10.2 N CBC W/AUTO [id number] 05:40:00* Test Item Value Reference Range Interpretation [...] NRBC#) 0.00 K/mm3 0.0-0.1 N GLUCOSE BEDSIDE [id number] 20:22:00* Test Item Value Reference Range Interpretation Comme nts GLUCOSE BEDSIDE TESTING (meño t code = GLUBED) 92 MG/DL 60-99 N - XR CHEST [id number] 12:24:00 [facility] SENIA MICHAELKONRAD DAWSON : 1965 Sex: F Patient Name: MADHAVI MICHAEL Unit No: [id number] EXAMS: CPT CODE: [id number] XR CHEST [id number] CLINICAL HISTORY: S/P ICD. LOCATION: A1 FINDINGS: [...] 1. There is pulmonary vascular congestion with diffuseinterstitial and mild alveolar infiltrates. This may be related to edema. Please correlate clinically. 2. Mild cardiomegaly. at 1224 Reported and signed by: Live Geiger MD CC: Greg Ortiz MD Technologist: Carmine Alfaro (RT) Transcrpt Date/Tm/Trnsp: 08/06/2021 (1224) t.[email or web address] Orig Print D/T: S: 08/06/2021 (1227) [facility] NAME: MADHAVI MICHAEL [address] [address] PHYS: [place] [address] : 1965 AGE: 55 SEX: F LOC: LOUANN Kerr PHONE #: [phone] EXAM DATE: 08/06/2021 STATUS: ADM IN FAX #: [phone] RADIOLOGY NO: PAGE 1 Signed ReportBASIC METABOLIC [id number] 09:16:00* Test Item Value Reference Range Interpretation [...] CA) 9.3 MG/DL 8.4-10.2 N Comments to Web Feeder: NURSE WILL BRING SPECIMEN TO LABIs this [...] mg/dL VERY HIGH.........>/= 190 mg/dL Comments to Web Feeder: NURSE WILL BRING SPECIMEN TO LABIs this a LINE draw? N [id number] 09:16:00* Test Item Value Reference Range Interpretation Comme nts MAGNESIUM (test code = MAG) 1.8 MG/DL 1.6-2.3 N Comments to Web Feeder: NURSE WILL BRING SPECIMEN TO LABIs this a LINE draw? N BASIC METABOLIC [id number] 09:05:00* Test Item Value Reference Range Interpretation [...] CA) 9.3 MG/DL 8.4-10.2 N Comments to Web Feeder: NURSE WILL BRING SPECIMEN TO LABIs this [...] code = LDL) MG/DL 0-99 Comments to Web Feeder: NURSE WILL BRING SPECIMEN TO LABIs this a LINE draw? N [id number] 09:05:00* Test Item Value Reference Range Interpretation Comme nts MAGNESIUM (test code = MAG) 1.8 MG/DL 1.6-2.3 N Comments to Web Feeder: NURSE WILL BRING SPECIMEN TO LABIs this a LINE draw? N PROTHROMBIN [id number] 09:01:00* Test Item Value Reference Range Interpretation [...] systemic embolism. 3.0 - 4.5 Comments to Web Feeder: NURSE WILL BRING SPECIMEN TO LABPTT ACTIVATED 2021-08-06 09:01:00* Test Item Value Reference Range Interpretation Comme nts PTT ACTIVATED (test code = APTT) 31.5 SECONDS 25.1-36.5 N Comments to Web Feeder: NURSE WILL BRING SPECIMEN TO LABCBC W/AUTO [...] NRBC#) 0.00 K/mm3 0.0-0.1 N Comments to Web Feeder: NURSE WILL BRING SPECIMEN TO LABCOVID 19 Asymptomatic IH [id number] 05:59:00* Test Item Value Reference Range Interpretation [...] amount of virus (antigen) in the sample." DELROY, 2 [id number] 19:30:00 *.*.*.*.*.*.*.*.*.*.*.*.*.*FINAL*.*.*.*.*.*.*.*.*.*.*.*.*.*.*EXAM: Right knee 2 views HISTORY: Status post total knee arthroplasty TECHNIQUE:AP and lateral view of the right knee is obtained. FINDINGS:Changes of total knee arthroplasty are seen. Prosthesis appearsto be in good alignment. A drainagecatheter and superficial surgical skinstaples are seen. ?Personally interpreted by: TEMI VALERIO MD /Signed/ TEMI VALERIO [facility]DMid[facility] LUMBAR, SPINAL CANAL WITHOUT [id number] 23:21:00 *.*.*.*.*.*.*.*.*.*.*.*.*.*FINAL*.*.*.*.*.*.*.*.*.*.*.*.*.*.*MRI OF THE LUMBAR SPINE WITHOUT CONTRAST HISTORY: 46-year-old female with sciatica r back pain TECHNIQUE: 3 Ariana MRI without contrast COMPARISON: Not available FINDINGS: The alignment is preserved. No lesions are identified in the vertebral bodies. Disc desiccation is seen at at the lower lumbar spine between L3-S1.. At L1/L2: A far left lateral disc protrusion causes no spinal canal stenosis orneural foraminal narrowing. At L2/L3: Mild disc bulge with facet hypertrophy and ligamentum flavumhypertrophy cause mild spinal canal stenosis with no neural foraminalnarrowing. At L3/L4: Mild disc bulge with facet hypertrophy, ligamentum flavumhypertrophy, and prominent epidural fat cause mild spinal canal stenosis withmild right neuralforaminal narrowing. At L4/L5: Mild disc bulge with facet hypertrophy and ligamentum flavumhypertrophy cause no significant spinal canal stenosis and mild bilateralneural foraminal narrowing. At L5/S1: Mild disc bulge with facet hypertrophy cause no spinal canal stenosisor neural foraminal narrowing. Possible left L5 hemitransitional vertebra is seen. The conus ends at L1/L2. Incidentally noted an enlarged myomatous uterus is partially visualized SAMIA RODGERS MD ?Personally interpreted by: HERVE SEPULVEDA ACOSTA /Signed/ HERVE SEPULVEDA ACOSTAUniFillmore County Hospital ORDER/REPORT [id number] 21:29:00* Test Item Value Reference Range Interpretation Comme nts CEMENT SACK BREAKER CLINICAL INFORMATION (test code = 994) LMP: ?4.18.12# SLIDES: ? 1CLINICAL DX: ? ? ?V72.31 WELL WOMAN EXAM ?OGAL. CEMENT SACK BREAKER SPECIMEN TYPE (test code = 1000) CERVICAL SUREPATH CEMENT SACK BREAKER STATEMENT OF ADEQUACY (test code = 1001) ..SATISFACTORY FOR EVALUATION.ENDOCERVICAL COMPONENT ABSENT. CEMENT SACK BREAKER DIAGNOSIS (test code = 996) ..NEGATIVE FOR INTRAEPITHELIAL LESION OR MALIGNANCY CEMENT SACK BREAKER DIAGNOSIS CONTINUED (test code = 997) TRICHOMONAS VAGINALIS CEMENT SACK BREAKER DIAGNOSIS SIGNATURE LINE (test code = 6603) ? ......The Pap test is a screening test with an inherent, but low, probabilityof error.For this reason, annual Pap screening test is recommended.Yourpatient should be reminded to consult you immediately if she experiencesany suspicious signs or symptoms, even if her Pap test result is Nega-tive for Intraepithelial Lesion or Malignancy (Within Normal Limits).04/25/12 ? ?SCREENED BY: ?Karrie LOUIS CT(ASCP)04/26/12 ? ?VERIFIED BY: ?MARY REYES CT (ASCP) ?(ELECTRONIC SIGNATURE) [facility] PATH FINAL [id number] 03:47:00* Test Item Value Reference Range Interpretation Comme [facility] SP ANATOMIC SPECIMEN SITE (test code = 1883) UTERINE ENDOMETRIAL SP CLINICAL INFORMATION (test code = 1884) 46 year old female here for well woman with metrorrhagia for the past 6months pelvis U/S showed enlarged uterus with multiple fibroids.CLINICAL DIAGNOSIS: Menorrhagia SP FINAL DIAGNOSIS (test code = 1886) ENDOMETRIUM, BIOPSY: ?- PROLIFERATIVE ENDOMETRIUM/.SURGICAL PATHOLOGY FELLOW: VIJAY HARGROVE MD..By this signature, I attest that I have personally examined the tissue orother material submitted for evaluation, and that the above diagnosis reflectsmy interpretation.04/12/12 ? SUDHA MARTIN M.D., PATHOLOGISTMP ?(Electronic signature) SP GROSS DESCRIPTION (test code = 1888) The specimen, received in formalin in a container labeled with the patient'sname, number and designated "endometrial," are multiple fragments oftan-brown soft tissue measuring 1.5 x 1.5 x 0.3 cm in aggregate. ?There are nodistinguishing gross features. ?The specimen is filtered through a biopsy bagand submitted in 1A..BLOCK SUMMARY:1A - Endometrial bx.PROSECTED BY: CATIE SUN M.D..SP ?RESIDENT: [facility] HospitalPROFILE WHEN USED WITH [id number] 01:32:00* Test Item Value Reference Range Interpretation Comme nts WBC x10^3 (test code = 2227) 4.8 /uL 3.2-9.9 RBC x10^6 (test code = 1719) 5.17 /uL 3.95-5.19 HGB (test code = 1023) 12.5 11.9-15.3 HCT (test code = 1021) 40.6 % 35.9-45.3 MCV (test code = 1365) 78.5 82.6-95.2 L MCH (test code = 1364) 24.2 PG 26.7-32.7 L MCHC (test code = 1363) 30.8 % 31.6-35.3 L RDW-CV (test code = 1722) 22.7 % 9.8-16.8 H PLT x10^3 (test code = 1592) 193 /uL 135-361 MPV (test code = 1366) NOT DONE 9.4-13.3 RDW-SD (test code = 4115) 64.7 38.6-48.7 H Lab Interpretation (test cod e = 23656-6) Abnormal [facility] HospitalAUTOMATED [id number] 01:32:00* Test Item Value Reference Range Interpretation Comme nts GRAN MAT (NEUT) % (test code = 978) 49.0 % 37.4-71.4 LYMPH% (test code = 1329) 37.2 % 18.9-48.6 MONO % (test code = 1419) 9.3 % 4.0-12.0 EOS % (test code = 767) 3.7 % 0.0-4.7 BASO % (test code = 305) 0.6 % 0.0-0.9 GRAN MAT x10^3(ANC) (test co de = 979) 2.37 /uL 0.95-6.33 LYMPH x10^3 (test code = 1331) 1.8 /uL 1.2-3.2 MONO x10^3 (test code = 1418) 0.5 /uL 0.2-0.9 EOS x10^3 (test code = 769) 0.2 /uL 0.0-0.3 BASO x10^3 (test code = 308) 0.0 /uL 0.0-0.1 IMM GRAN % (test code = 4120) 0.2 % 0.0-0.6 IMM GRAN x10^3 (test code = 4121) 0.0 /uL 0.0-0.1 [facility] HospitalUS PELVIC COMPLETE W/[id number] 21:54:00US PELV TRANSVA*.*.*.*.*.*.*.*.*.*.*.*.*.*FINAL*.*.*.*.*.*.*.*.*.*.*.*.*.*.*HISTORY: dysfunctional uterine bleeding PELVIC ULTRASOUND, TRANSABDOMINAL AND TRANSVAGINAL COMPARISON: None FINDINGS: The uterus is enlarged and measures 16.5 x 10.4 x 14.8 cm. The endometrialstripe is partially visualized and measures approximately 1.3 cm in thickness.Several large isoechoic to slightly hyperechoic uterine masses are visualized,the largest measuring approximately 6.6 x 8.1 x 6.8 cm and is exophytic fromthe left lateral aspect of the uterine fundus. The next largest measuresapproximately 6.2 x 5.1 cm within the left myometrium also causing a bulge inthe uterine contour. Other smaller masses are visualized. Neither ovary is visualized. No free fluid is visualized within the pelvis. IMPRESSION: Enlarged, leiomyomatous uterus, with the largest fibroid measuring up to 8.1 cmprojecting from the lateral aspect of the left side of the uterine fundus. 1.3 cm endometrial stripe, which is within normal limits if the patient ispremenopausal but not if postmenopausal.RADUnKnapp Medical CenterDEXA, BONE DENSITY AXIAL SKELEDEXA, BONE DENSITY AXIAL UJBAK0V SCR TRISH BILAT W/CAD3D SCR TRISH BILAT W/CAD3D SCR TRISH BILAT W/CAD3D SCR TRISH BILAT W/CAD3D SCR TRISH BILAT W/CAD3D SCR TRISH BILAT W/CAD Notes Date/Time Note Provider Source 2025-03-23 08:41:30 CHANI 06/30/24 NOV not scheduled Requested Prescriptions Signed Prescriptions Disp Refills nortriptyline 25 mg capsule 30 capsule 2 Sig: TAKE 1 CAPSULE BY MOUTH EVERYDAY AT BEDTIME Authorizing Provider: PENG STRANGE GENE Ordering User: ESTHER DIA [facility]2024-11-11 12:29:32 CHANI 06/30/24 NOV not scheduled Requested Prescriptions Signed Prescriptions Disp Refills nortriptyline 25 mg capsule 30 capsule 5 Sig: TAKE 1 CAPSULE BY MOUTH EVERYDAY AT BEDTIME Authorizing Provider: PENG STRANGE GENE Ordering User: ESTHER DIA [facility]2024-11-05 09:06:16 Addended by: YOUSIF WEEMS MA on: 09/30/2024 09:06 AM Modules accepted: Orders [facility]2024-11-05 09:04:11 Due to not wanting the MRI due to her pacemaker placed a CT order instead, this is per the provider. Yousif Weems 09/30/2024 9:06 AM [facility]2024-10-30 15:30:00 Addended by: IVY VIVAR on: 09/30/2024 09:06 AM Modules accepted: Orders [facility]2024-08-13 16:54:10 Notified pt that Nortriptyline could be ordered and pt verbalized understanding and stated she was interested in trying it. Per Dr. Strange, Nortriptyline 25mg PO QHS ordered. Dose may be increased to 50mg QHS if needed. T [place] [id number] 16:42:08 The Apixiban and duloxetine could conflict with each other. I know she takes gabapentin. There are not a lot of med options left. Nortriptyline has been used for this purpose as well. T [place] 896504-08-12 10:11:14 Dr. Strange, please review and advise on if new medication order should've been placed. Per CHANI 06/30/24 : -- Consider duloxetine for pain control, could be issue with Tegretol and Apixiban. T [place] 896504-08-09 17:02:07 Madhavi Michael is a 58 year old female Pt calling she had an appt on Jun 30 She thought she told you were calling in medications She went to the pharm and nothing was called in Can you please check her file to see if she has new medication from Jun 30? Sheri VazquezChristian [place] 896504-04-22 13:21:27 Tx for Nystatin-triamcinolone sent. [facility]zo[facility]ts[facility]09[facility]14 09:16:00 [facility] ([facility] Cardiology Progress Note REPORT#:[id number] REPORT STATUS: Signed DATE:08/07/21 TIME: 915 PATIENT: MADHAVI MICHAEL UNIT #: [id number] ROOM/BED: [address] : [birth year] AGE: 55 SEX: F [...] no edema Musculoskeletal: full range of motion Neuro/AUTOMOTIVE SERVICE MANAGER: alert, oriented X 3, CN II-XII intact Skin: dry, intact Psychiatry: normal affect, normal judgment/insight, normal mood Results Findings/Data: Laboratory Tests 08/07 08/07 08/06 0831 0416 2020 Chemistry Sodium (137 - 145 MMOL/L) [...] - 10.2 MG/DL) 8.9 Laboratory Tests 08/07 0416 Hematology WBC (3.8 - 9.8 K/MM3) 5.0 [...] % (Auto) (14 - 44 %) 43.5 Bartholomew % (Auto) (4 - 13 %) 10.4 Eos % (Auto) (0 - 6 %) 1.6 Baso % (Auto) (0 - 2 %) 0.4 Neut # (Auto) (2.0 - 7.6 K/mm3) 2.20 Lymph # (Auto) (1.0 - 3.8 K/mm3) 2.18 Bartholomew # (Auto) (0.1 - 0.8 K/mm3) 0.52 [...] MD RADIOLOGY - XR CHEST 1V 08/07 0500 Report Impression - Status: SIGNED Entered: 08/07/2021 0655 IMPRESSION: Cardiomegaly with diffuse congestive changes bilaterally. No pneumothorax. Impression By: Coy Tolentino MD Diagnosis, Assessment Plan Free Text DxA P Notes Free Text DxA P Notes: IMP: Bradycardia s/p PPM PLAN: d/c home f/u one week. at 1032 RPT #:[id number] END OF [id number] 07:45:752657-8740 [place] [address] PATIENT NAME: MADHAVI MICHAEL ADMIT DATE: 08/06/21 ACCOUNT NO: [id number] ROOM NO: Z.363 AGE: 55 REPORT TYPE: ELECTROCARDIOGRAM SEX: F ADMITTING PHYSICIAN:Joselito Bai MD ATTENDING PHYSICIAN:Joselito Bai MD Order: [id number] Test Reason : S/P PPI Test Date/Time Stamp: [place] Aug 07 2021 07:45:34 Blood Pressure : / [...] by:GREG ORTIZ at 0816 PATIENT NAME: MADHAVI MICHAEL 07:45:[id number] [place] [id number] PATIENT NAME: MADHAVI MICHAEL ADMIT DATE: 08/06/21 ACCOUNT NO: [id number] ROOM NO: [facility] AGE: 55 REPORT TYPE: ELECTROCARDIOGRAM SEX: F ADMITTING PHYSICIAN:Joselito Bai MD ATTENDING PHYSICIAN:Joselito Bai MD Order: [id number] Test Reason : S/P PPI Test Date/Time [...] by:GREG ORTIZ at 1226 PATIENT NAME: MADHAVI MICHAEL 15:28:00 [facility] Physical REPORT#:[id number] REPORT STATUS: Signed DATE:08/06/21 TIME: 1528 PATIENT: MADHAVI MICHAEL UNIT #: [id number] ROOM/BED: [address] : [birth year] AGE: 55 SEX: F [...] night therefore she was brought by her playground official Dr. Ortiz to undergo pacemaker placement. Procedure [...] edema Musculoskeletal: normal inspection, no muscle spasm Neuro/AUTOMOTIVE SERVICE MANAGER: alert, oriented X 3, normal speech, no [...] % (Auto) (14 - 44 %) 35.2 Bartholomew % (Auto) (4 - 13 %) 9.1 Eos % (Auto) (0 - 6 %) 0.9 Baso % (Auto) (0 - 2 %) 0.3 Neut # (Auto) (2.0 - 7.6 K/mm3) 3.15 Lymph # (Auto) (1.0 - 3.8 K/mm3) 2.05 Bartholomew # (Auto) (0.1 - 0.8 K/mm3) 0.53 [...] correlate clinically. 2. Mild cardiomegaly. Impression By: KerryRC7 - Live Geiger MD Results: labs reviewed, [...] VTE prophylaxis initiated: yes at 2243 RPT #:[id number] END OF [id number] 13:41:184190-1337 [place] [id number] PATIENT NAME: MADHAVI MICHAEL ADMIT DATE: 08/06/21 ACCOUNT NO: [id number] [facility] 55 REPORT TYPE: ELECTROCARDIOGRAM SEX: F ADMITTING PHYSICIAN:Greg Ortiz MD ATTENDING PHYSICIAN:Greg Ortiz MD Order: [id number] Test Reason : S/P PPI Test Date/Time Stamp: [facility] Aug 06 2021 13:41:32 Blood Pressure : [...] by:GREG ORTIZ at 1343 PATIENT NAME: MADHAVI MICHAEL 13:41:[id number] [address] PATIENT NAME: MADHAVI MICHAEL ADMIT DATE: 08/06/21 ACCOUNT NO: [id number] [facility] 55 REPORT TYPE: ELECTROCARDIOGRAM SEX: F ADMITTING PHYSICIAN:Joselito Bai MD ATTENDING PHYSICIAN:Joselito Bai MD Order: [id number] Test Reason : S/P PPI Test Date/Time [...] by:GREG ORTIZ at 1226 PATIENT NAME: MADHAVI MICHAEL 11:31:[id number] [place] [address] PATIENT NAME: MADHAVI MICHAEL ADMIT DATE: 08/06/21 ACCOUNT NO: [id number] ROOM NO: AGE: 55 REPORT TYPE: CARDIAC CATHETERIZATION REPORT SEX: F ADMITTING PHYSICIAN: ATTENDING PHYSICIAN:Greg Ortiz MD PROCEDURE DATE: 08/06/2021 SKILL LABOR: Greg Ortiz M.D. TITLE OF THE PROCEDURE: [...] By: Greg Ortiz MD WT: CATH:DUNIA/TONYA/AVEL Conf#: [id number]#: [id number] Authenticated by Greg Ortiz MD On 08/06/2021 11:47:20 AM at 1147 PATIENT NAME: MADHAVI MICHAEL 09:02:[id number] [place] [id number] PATIENT NAME: MADHAVI MICHAEL ADMIT DATE: 08/06/21 ACCOUNT NO: [id number] ROOM NO: AGE: 55 REPORT TYPE: ELECTROCARDIOGRAM SEX: F ADMITTING PHYSICIAN: ATTENDING PHYSICIAN:Greg Ortiz MD Order: [id number] Test Reason : SSS Test Date/Time Stamp: [...] on 08/06/2021 9:32:57 AM Referred By: Greg rOtiz Confirmed by:GREG ORTIZ at 0932 PATIENT NAME: MADHAVI MICHAEL 07:13:[id number] [address] PATIENT NAME: MADHAVI MICHAEL ADMIT DATE: ACCOUNT NO: [id number] ROOM NO: AGE: 55 REPORT TYPE: PREOP HISTORY AND PHYSICAL SEX: F ADMITTING PHYSICIAN: ATTENDING PHYSICIAN:Greg Ortiz MD PATIENT NAME: MADHAVI MICHAEL ADMIT DATE:08/06/2021 ADMISSION DATE: 08/06/2021 SKILL LABOR: Greg Ortiz MD REASON FOR ADMISSION: Sick [...] She had a negative stress test in 2017 and a negative nuclear in 2018. There is no history of angina. She [...] or street drug use. PATIENT NAME: MADHAVI MICHAEL FAMILY HISTORY: Negative for premature atherosclerosis. REVIEW [...] By: Greg Ortiz MD WT: PREOPHP:ARAM/TONYA/AVEL Conf#: [id number]/DID#: [id number] Authenticated and Edited by Greg Ortiz MD On 08/05/21 4:18:57 PM at 0421 PATIENT NAME: MADHAVI MICHAEL
--- NOTE | 2025-04-15 15:44 | RAD REPORT ---
EXAM: Chest Single View HISTORY: 59 years Female CHEST PAIN COMPARISON: 10/28/2024 FINDINGS: LUNGS/PLEURA: Diffuse prominence of the pulmonary interstitium. CARDIAC/MEDIASTINUM: Stable enlargement. UPPER ABDOMEN: No significant abnormality. BONES: No acute abnormality. LINES/TUBES/OTHER: Pacemaker. IMPRESSION: Question mild congestive heart failure.
[2025-04-15 15:48] LABS: Absolute Basophils 0.1 K/uL (0-0.5); Absolute Eosinophils 0.1 K/uL (0-0.5); Absolute Lymphocytes (CBC) 3.7 K/uL (0.7-4.9); Absolute Monocytes 0.9 K/uL (0.1-1.3); Absolute Neutrophil 5.3 K/uL (1.8-8.0); Basophils % 0.7 % (0-1.3); Eosinophils % 0.9 % (0-4.4); Hematocrit 43.7 % (36.0-45.0); Hemoglobin 14.9 g/dL (12.0-15.0); Lymphocytes % 36.2 % (15.3-44.8); MCV 88.4 fL (80-100); MPV 9.6 fL (7.6-11.3); Monocytes % 9.3 % (3.3-12.3); Neutrophils % 52.9 % (41.7-73.7); Nucleated Red Blood Cells % 0.1 % (0-0); Platelets 122 thou/uL (152-406); RBC Red Blood Cell Count 4.95 M/uL (3.86-4.86); Red Cell Distribution Width 13.6 % (12.1-15.2)
[2025-04-15 15:54] LABS: Protime INR 1.15
[2025-04-15 16:08] LABS: Albumin 3.6 g/dL (3.4-5.0); Albumin/Globulin Ratio 0.9 (1.1-1.8); Anion Gap 5.5 mEq/L (5.0-15.0); Bilirubin Direct 0.2 mg/dL (0-0.2); Bilirubin Indirect, Calculated 0.6 mg/dL (0.2-0.8); Bilirubin Total 0.8 mg/dL (0.2-1.0); Globulin 3.8 g/dL (2.3-3.5); Magnesium 1.9 mg/dL (1.6-2.4); Potassium 3.5 mEq/L (3.5-5.1); Protein, Total 7.4 g/dL (6.4-8.2); Troponin High Sensitivity 4.6 pg/mL (<58.9)
--- NOTE | 2025-04-15 16:46 | EDPHYS ---
Physician Documentation [facility] Name: Madhavi Michael Age: 59 yrs Sex: Female : 1965 Arrival Date: 04/15/2025 Time: 14:57 Bed 2 Private MD: ED Physician Maria Luisa Maki HPI: 04/15 15:01 This 59 yrs old Black Female presents to ER via Unassigned with complaints of Chest sp3 pain. 15:01 59-year-old female with history of CAD, hypertension, diabetes, atrial fibrillation sp3 status post pacemaker now presents to the ED with recurrent chest pain that started earlier today. Pain described as substernal and dull in nature. She denies any other symptoms including headache, neck pain, shortness of breath, back pain, abdominal pain, vomit, diarrhea, syncope, focal neurological deficit, prolonged immobilization, travel history, known sick contacts, fever, URI symptoms, or any other signs or symptoms on ROS at this time.. Historical: - Allergies: 15:09 No Known Allergies; ph - PMHx: 15:09 Asthma; Atrial Fib; Congestive heart failure; COPD; CVA; Diabetes - NIDDM; Leaking ph Veins x2 Right Leg; neuropathy; sciatica; Sleep Apnea; - PSHx: 15:09 Arthroplasty of knee; Cholecystectomy; hysterectomy; pacemaker; ph - Immunization history:: Adult Immunizations unknown. - Infectious Disease History:: Denies. - Social history:: Smoking status: Patient reports the use of cigarette tobacco products, smokes one-half pack cigarettes per day. ROS: 15:02 Constitutional: Negative for fever, chills, and weight loss, Eyes: Negative for injury, sp3 pain, redness, and discharge, ENT: Negative for injury, pain, and discharge, Neck: Negative for injury, pain, and swelling, Respiratory: Negative for shortness of breath, cough, wheezing, and pleuritic chest pain, Abdomen/GI: Negative for abdominal pain, nausea, vomiting, diarrhea, and constipation, Back: Negative for injury and pain, MS/Extremity: Negative for injury and deformity, Skin: Negative for injury, rash, and discoloration, Neuro: Negative for headache, weakness, numbness, tingling, and seizure, Psych: Negative for depression, anxiety, suicide ideation, homicidal ideation, and hallucinations, Allergy/Immunology: Negative for hives, rash, and allergies, Endocrine: Negative for neck swelling, polydipsia, polyuria, polyphagia, and marked weight changes, Hematologic/Lymphatic: Negative for swollen nodes, abnormal bleeding, and unusual bruising, 15:02 All other systems are negative, Exam: 15:02 Constitutional: This is a well developed, well nourished patient who is awake, alert, sp3 and in no acute distress. Head/Face: Normocephalic, atraumatic. Eyes: Pupils equal round and reactive to light, extra-ocular motions intact. Lids and lashes normal. Conjunctiva and sclera are non-icteric and not injected. Cornea within normal limits. Periorbital areas with no swelling, redness, or edema. ENT: Nares patent. No nasal discharge, no septal abnormalities noted. External auditory canals are clear. Oropharynx with no redness, swelling, or masses, exudates, or evidence of obstruction, uvula midline. Mucous membranes moist. Neck: Trachea midline, no thyromegaly or masses palpated, and no cervical lymphadenopathy. Supple, full range of motion without nuchal rigidity, or vertebral point tenderness. No Meningismus. Chest/axilla: Normal chest wall appearance and motion. Nontender with no deformity. No lesions are appreciated. Cardiovascular: Regular rate and rhythm with a normal S1 and S2. No gallops, murmurs, or rubs. Normal PMI, no JVD. No pulse deficits. Respiratory: Lungs have equal breath sounds bilaterally, clear to auscultation and percussion. No rales, rhonchi or wheezes noted. No increased work of breathing, no retractions or nasal flaring. Abdomen/GI: Soft, non-tender, with normal bowel sounds. No distension or tympany. No guarding or rebound. No evidence of tenderness throughout. Back: No spinal tenderness. No costovertebral tenderness. Full range of motion. Skin: Warm, dry with normal turgor. Normal color with no rashes, no lesions, and no evidence of cellulitis. MS/ Extremity: Pulses equal, no cyanosis. Neurovascular intact. Full, normal range of motion. Neuro: Awake and alert, GCS 15, oriented to person, place, time, and situation. Cranial nerves II-XII grossly intact. Motor strength 5/5 in all extremities. Sensory grossly intact. Cerebellar exam normal. Normal gait. Psych: Awake, alert, with orientation to person, place and time. Behavior, mood, and affect are within normal limits. 15:21 ECG was reviewed by the Attending Physician. EKG demonstrates normal sinus rhythm at 61 sp3 bpm with normal intervals, normal QRS, normal axis nonspecific diffuse ST/T changes without evidence of acute ischemia. Vital Signs: 15:07 BP 125 / 82; Pulse 64; Resp 18; Temp 97.8; Pulse Ox 98% on R/A; Weight 121.56 kg; ph Height 5 ft. 7 in. ; Pain 10/10; 16:17 BP 110 / 72; Pulse 63; Resp 18; Pulse Ox 100% on R/A; ld1 17:29 BP 121 / 79; Pulse 62; Resp 18; Temp 97.5; Pulse Ox 98% on R/A; ph 15:07 Body Mass Index 41.97 (121.56 kg, 170.18 cm) ph 15:07 Pain Scale: Adult ph MDM: 14:59 Medical Screening Exam initiated sp3 15:02 Data reviewed: vital signs, nurses notes, EMS record, old medical records, lab test sp3 result(s), EKG, radiologic studies. ED course: 59-year-old female with PMH above now with chest pain. Differential diagnosis includes acute coronary syndrome, angina, musculoskeletal pain, GI etiology including gastritis or GERD, pleurisy, other pulmonary pathology, among others. I am not highly suspicious of PE or TAD at this time. Workup will include chest x-ray, EKG and general labs including troponin. Disposition pending workup and patient course of probable admission for 23 observation.. 16:45 ED course: Initial workup negative. Cardiology has been consulted and patient will be sp3 admitted to internal medicine 23-hour observation under Dr. Yeh.. 04/15 14:59 Order name: Basic Metabolic Panel; Complete Time: 16:10 sp3 04/15 14:59 Order name: CBC with Diff; Complete Time: 15:54 sp3 04/15 14:59 Order name: LFT's; Complete Time: 16:10 sp3 04/15 14:59 Order name: Magnesium; Complete Time: 16:10 sp3 04/15 14:59 Order name: NT PRO-BNP; Complete Time: 16:10 sp3 04/15 14:59 Order name: PT-INR; Complete Time: 15:54 sp3 04/15 14:59 Order name: Troponin HS; Complete Time: 16:10 sp3 04/15 17:19 Order name: Basic Metabolic Panel EDMS 04/15 17:19 Order name: Basic Metabolic Panel EDMS 04/15 17:19 Order name: Basic Metabolic Panel EDMS 04/15 17:19 Order name: Basic Metabolic Panel EDMS 04/15 17:19 Order name: CBC with Automated Diff EDMS 04/15 17:19 Order name: CBC with Automated Diff EDMS 04/15 17:19 Order name: CBC with Automated Diff EDMS 04/15 17:19 Order name: CBC with Automated Diff EDMS 04/15 17:19 Order name: Magnesium EDMS 04/15 17:19 Order name: Magnesium EDMS 04/15 17:19 Order name: Magnesium EDMS 04/15 17:19 Order name: Magnesium EDMS 04/15 17:19 Order name: Phosphorus EDMS 04/15 17:19 Order name: Phosphorus EDMS 04/15 17:19 Order name: Phosphorus EDMS 04/15 17:19 Order name: Phosphorus EDMS 04/15 17:19 Order name: Troponin High Sensitivity EDMS 04/15 17:19 Order name: Troponin High Sensitivity EDMS 04/15 17:19 Order name: Troponin High Sensitivity EDMS 04/15 14:59 Order name: XRAY Chest (1 view); Complete Time: 15:54 sp3 04/15 17:19 Order name: Echo with Doppler EDMS 04/15 14:59 Order name: Cardiac monitoring; Complete Time: 15:22 sp3 04/15 14:59 Order name: EKG - Nurse/Tech; Complete Time: 15:22 sp3 04/15 14:59 Order name: IV Saline Lock; Complete Time: 15:38 sp3 04/15 14:59 Order name: Labs collected and sent; Complete Time: 15:38 sp3 04/15 14:59 Order name: O2 Per Protocol; Complete Time: 15:22 sp3 04/15 14:59 Order name: O2 Sat Monitoring; Complete Time: 15:22 sp3 Administered Medications: No medications were administered Disposition Summary: 04/15/25 16:46 Hospitalization Ordered Notes: Hospitalization Status: Observation sp3 Provider: Gabo Yeh sp3 Location: Telemetry/MedSurg (observation) sp3 Condition: Stable sp3 Problem: an acute exacerbation sp3 Symptoms: have worsened sp3 Bed/Room Type: Standard sp3 Room Assignment: 214(04/15/25 17:29) bd Diagnosis - Chest pain, unspecified sp3 Forms: - Medication Reconciliation Form sp3 - SBAR form sp3 - Leadership Thank You Letter sp3 Signatures: Dispatcher [employer] EDMS Yaquelin Servin Patricia, RN RN ph Maria Luisa Maki MD MD sp3 Corrections: (The following items were deleted from the chart) 15:00 15:00 BASIC METABOLIC PANEL+C.LAB.BRZ ordered. EDMS EDMS 15:00 15:00 CBC+H.LAB.BRZ ordered. EDMS EDMS 15:00 15:00 HEPATIC FUNCTION+C.LAB.BRZ ordered. EDMS EDMS 15:00 15:00 MAGNESIUM+C.LAB.BRZ ordered. EDMS EDMS 15:00 15:00 PROBNP+C.LAB.BRZ ordered. EDMS EDMS 15:00 15:00 PROTIME (+INR)+COAG.LAB.BRZ ordered. EDMS EDMS 15:00 15:00 Troponin High Sensitivity+C.LAB.BRZ ordered. EDMS EDMS 15:00 15:00 Chest Single View+RAD.RAD.BRZ ordered. EDMS EDMS 17:29 16:46 sp3 bd
--- NOTE | 2025-04-15 16:46 | ER ---
Nurse's Notes [facility] Name: Madhavi Michael Age: 59 yrs Sex: Female : 1965 Arrival Date: 04/15/2025 Time: 14:57 Bed 2 Private MD: Diagnosis: Chest pain, unspecified Presentation: 04/15 15:07 Chief complaint: EMS states: Midsternal chest pain x 2 days, denies SOB,nausea or ph dizziness, has pacemaker, VSS. Coronavirus screen: Vaccine status: Patient reports receiving the 1st dose of the Covid vaccine. Ebola Screen: No symptoms or risks identified at this time. Initial Sepsis Screen: Does the patient meet any 2 criteria? No. Patient's initial sepsis screen is negative. Does the patient have a suspected source of infection? No. Patient's initial sepsis screen is negative. Risk Assessment: Do you want to hurt yourself or someone else? Patient reports no desire to harm self or others. Onset of symptoms was April 15, 2025. 15:07 Method Of Arrival: EMS: [facility] 15:07 Acuity: SISSY 2 ph Triage Assessment: 15:09 General: Appears in no apparent distress. comfortable, obese, well groomed, Behavior is ph calm, cooperative, appropriate for age, Denies fever, feeling ill. Pain: Complains of pain in mid-sternal area Pain does not radiate. Neuro: Level of Consciousness is awake, alert, obeys commands, Oriented to person, place, time, situation. Cardiovascular: Reports chest pain, Denies lightheadedness, nausea, shortness of breath, Rhythm is sinus rhythm Chest pain is located in substernal area. Respiratory: Airway is patent Respiratory effort is even, unlabored. GI: No signs and/or symptoms were reported involving the gastrointestinal system. Derm: Skin is pink, warm \T\ dry. Historical: - Allergies: 15:09 No Known Allergies; ph - PMHx: 15:09 Asthma; Atrial Fib; Congestive heart failure; COPD; CVA; Diabetes - NIDDM; Leaking ph Veins x2 Right Leg; neuropathy; sciatica; Sleep Apnea; - PSHx: 15:09 Arthroplasty of knee; Cholecystectomy; hysterectomy; pacemaker; ph - Immunization history:: Adult Immunizations unknown. - Infectious Disease History:: Denies. - Social history:: Smoking status: Patient reports the use of cigarette tobacco products, smokes one-half pack cigarettes per day. Screenin:10 [facility] ED Fall Risk Assessment (Adult) History of falling in the last 3 months, ph including since admission No falls in past 3 months (0 pts) Confusion or Disorientation No (0 pts) Intoxicated or Sedated No (0 pts) Impaired Gait Yes (1 pt) Mobility Assist Device Used Yes (1 pt) Altered Elimination No (0 pt) Score/Fall Risk Level 0 - 2 = Low Risk Oriented to surroundings, Maintained a safe environment, Hourly rounding (assess needs \T\ fall precautionary measures) done, Used ambulatory aids as needed (educated on \T\ assisted with). Abuse screen: Denies threats or abuse. Denies injuries from another. Nutritional screening: No deficits noted. Tuberculosis screening: No symptoms or risk factors identified. Assessment: 15:11 General: SEE TRIAGE ASSESSMENT. ph 16:17 Reassessment: Patient appears in no apparent distress at this time. No changes from ld1 previously documented assessment. Patient and/or family updated on plan of care and expected duration. Pain level reassessed. Patient is alert, oriented x 3, equal unlabored respirations, skin warm/dry/pink. Vital Signs: 15:07 BP 125 / 82; Pulse 64; Resp 18; Temp 97.8; Pulse Ox 98% on R/A; Weight 121.56 kg; ph Height 5 ft. 7 in. ; Pain 10/10; 16:17 BP 110 / 72; Pulse 63; Resp 18; Pulse Ox 100% on R/A; ld1 17:29 BP 121 / 79; Pulse 62; Resp 18; Temp 97.5; Pulse Ox 98% on R/A; ph 15:07 Body Mass Index 41.97 (121.56 kg, 170.18 cm) ph 15:07 Pain Scale: Adult ph Vitals: 17:29 Cardiac Rhythm Assessment Sinus rhythm. ph ED Course: 14:59 Patient arrived in ED. sp3 14:59 Maria Luisa Maki MD is Attending Physician. sp3 15:07 Imelda Tariq RN is Primary Nurse. ph 15:08 Triage completed. ph 15:10 Arm band placed on Patient placed in an exam room, on a stretcher, on hadoop analyst, ph on pulse oximetry. 15:11 Patient has correct armband on for positive identification. Placed in gown. Bed in low ph position. Call light in reach. Side rails up X2. instructor military science on. Pulse ox on. NIBP on. Door closed. Noise minimized. Warm blanket given. 15:11 Patient maintains SpO2 saturation greater than 95% on room air. ph 15:30 XRAY Chest (1 view) In Process Unspecified. EDMS 15:30 Inserted saline lock: 20 gauge in left antecubital area, using aseptic technique. Blood ld1 collected. Flushed with 10 mL NS. 15:38 Basic Metabolic Panel Sent. ld1 15:38 CBC with Diff Sent. ld1 15:38 LFT's Sent. ld1 15:38 Magnesium Sent. ld1 15:38 NT PRO-BNP Sent. ld1 15:38 PT-INR Sent. ld1 15:38 Troponin HS Sent. ld1 16:45 Gabo Yeh MD is Hospitalizing Provider. sp3 Administered Medications: No medications were administered Medication: 15:11 VIS not applicable for this client. ph Outcome: 16:46 Decision to Hospitalize by Provider. sp3 18:13 Patient left the ED. ph Signatures: Dispatcher [employer] Imelda Nieto RN RN ph Nga Moseley RN RN ld1 Maria Luisa Maki MD MD sp3
[2025-04-15] MEDS ORDERED: D50W 25 GM/50 ML SYRINGE IV PRN (17:12)
[2025-04-15] MEDS ORDERED: SODIUM CHLORIDE 0.9% 10ML INJ IV PRN (17:12)
[2025-04-15] MEDS ORDERED: GLUCAGON 1 MG/VIAL IV PRN (17:12)
--- NOTE | 2025-04-15 17:30 | P.HP ---
Certification for Inpatient Patient admitted to: Observation With expected LOS: <2 Midnights <Debbie Jiang - Last Filed: 04/15/25 18:09> Patient History Date of Service: 04/15/25 Reason for admission: Chest pain r/o ACS History of Present Illness: Madhavi Michael is a 59 year old female with Pmhx CAD, hypertension, diabetes, atrial fibrillation status post pacemaker, CHF, VENESSA, COPD, CHF, neuropathy who presents to the ED with midsternal chest pain for two days. She reports seeing Dr. Ortiz for her pacemaker interrogation recently and now having chest pain. She has a history of admissions for chest pain with the last admission involving her acid reflux. She denies acid reflux being the problem today as she has taken her omeprazole and dasha seltzer prior to arrival. Laboratory evaluation sig nificant for BUN creatinine 21/1.37, GFR 44, Serum glucose 72, troponin negative. Chest xray "Question mild congestive heart failure." Madhavi will be admitted for further evaluation of chest pain r/o ACS. - Past Medical/Surgical History Diabetic: Yes -: Asthma -: Diabetes mellitus type 2 -: Hyperlipidemia -: Hypertension -: Obstructive sleep apnea -: Tobacco abuse -: Atrial fibrillation -: Chronic anti coagulation -: Obesity -: Cholecystectomy -: Tubal ligation -: Hysterectomy -: Right knee replacement -: hernia repair Psychosocial/ Personal History: The patient is currently . She has 3 children. She does not work. - Family History Mother -: Hypertension - Social History Smoking Status: Current every day smoker Alcohol use: No CD- Drugs: No Caffeine use: Yes <Debbie Jiang - Last Filed: 04/15/25 18:09> Date of Service: 04/16/25 <Gabo Yeh - Last Filed: 04/16/25 00:25> Allergies No Known Drug Allergies Allergy (Verified 12/25/19 09:58) Unknown Home Medications: Apixaban [Eliquis *] 2.5 mg PO DAILY 10/10/19 Gabapentin 600 mg PO TID 10/10/19 Hydrocodone 10/APAP 325 [[place] 10/325*] 1 tab PO TIDP PRN 10/10/19 Furosemide [Lasix*] 80 mg PO DAILY 10/14/21 Losartan Potassium 100 mg PO DAILY 10/14/21 Spironolactone [Aldactone*] 25 mg PO BID 10 Days #10 tab 01/06/24 Fluticasone/Umeclidin/Vilanter [Trelegy Ellipta 200-62.5-25] 1 puff IH DAILY 01/12/24 Metformin ER [Glucophage ER*] 500 mg PO DAILY 01/12/24 Potassium Chloride 20 meq PO DAILY 01/12/24 carvediloL [Carvedilol] 25 mg PO DAILY 01/12/24 Pantoprazole [Protonix Tab*] 40 mg PO BID 30 Days #60 tab 01/13/24 Sucralfate [Carafate] 1 gm PO DAILY 04/15/25 Review of Systems Other: Per HPI <Debbie Jiang - Last Filed: 04/15/25 18:09> Physical Examination - Physical Exam General: Alert, In no apparent distress, Oriented x3 HEENT: Atraumatic, Normocephalic Neck: Supple, 2+ carotid pulse no bruit Respiratory: Clear to auscultation bilaterally, Normal air movement Cardiovascular: Normal pulses, Regular rate/rhythm, Normal S1 S2 Capillary refill: <2 Seconds Gastrointestinal: Normal bowel sounds, Soft and benign Musculoskeletal: No clubbing Integumentary: No rashes Neurological: Normal speech, Normal tone - Studies Laboratory Data (last 24 hrs) 04/15/25 04/15/25 04/15/25 15:38 15:38 15:38 WBC 10.10 Hgb 14.9 Hct 43.7 Plt Count 122 L PT 13.0 INR 1.15 Sodium 140 Potassium 3.5 BUN 21 H Creatinine 1.37 H Glucose 72 L Magnesium 1.9 Total Bilirubin 0.8 AST 16 ALT 36 Alkaline Phosphatase 55 <Debbie Jiang - Last Filed: 04/15/25 18:09> - Studies Laboratory Data (last 24 hrs) 04/15/25 04/15/25 04/15/25 15:38 15:38 15:38 WBC 10.10 Hgb 14.9 Hct 43.7 Plt Count 122 L PT 13.0 INR 1.15 Sodium 140 Potassium 3.5 BUN 21 H Creatinine 1.37 H Glucose 72 L Magnesium 1.9 Total Bilirubin 0.8 AST 16 ALT 36 Alkaline Phosphatase 55 <Gabo Yeh - Last Filed: 04/16/25 00:25> Assessment and Plan - Plan Assessment and Plan Chest pain r/o ACS in a patient with CAD Afib s/p pacemaker CHF - EKG: No obvious ST segment changes - troponin negative, Serial pending - Ordered transthoracic echocardiogram - chest x-ray "Question mild congestive heart failure." - Consult Cardiology - recommendations appreciated - S/P aspirin 324 mg PO x 1 in ED - Start daily baby aspirin and statin - Symptom control with PRN acetaminophen, nitroglycerin, morphine - continuous telemetry - TSH/FreeT4, A1C, lipid panel pending - Continue home medication Diabetes mellitus - Accu-Chek with sliding scale - Hypoglycemia protocol in place - A1c in the a.m. VENESSA - BUN/creatinine 16/12.37, GFR 44 - Monitoring a.m. labs Hypertension COPD neuropathy -Continue home medications when updated and as appropriate Smoking abuse -Reports 10 cigarettes daily - Cessation education provided DVT ppx heparin Full code LOS 24 hour OBS Discharge Plan: Home Plan to discharge in: 24 Hours - Advance Directives Does patient have a Living Will: No Does patient have a Durable POA for Healthcare: No <Debbie Jiang - Last Filed: 04/15/25 18:09> Physician Review: Patient Assessed, Agree with Above Assessment and Plan <Gabo Yeh - Last Filed: 04/16/25 00:25>
[2025-04-15] MEDS: ASPIRIN 325 MG TAB PO ONE (19:02)
[2025-04-15] MEDS: ATORVASTATIN 40 MG TAB PO SCH (20:36)
[2025-04-15] MEDS: PANTOPRAZOLE 40 MG INJ IVP SCH (20:36)
[2025-04-15] MEDS: ACETAMINOPHEN 325 MG TABLET PO PRN (20:37)
[2025-04-15] MEDS: INSULIN REGULAR (HUMAN) 100 UNIT/ML SQ SCH (20:51)
[2025-04-15 21:49] VITALS: BMI 42.0
[2025-04-16] MEDS: HEPARIN 5000 UNIT/ML 1 ML VIAL SQ SCH (00:44)
[2025-04-16 06:48] LABS: Absolute Basophils 0.1 K/uL (0-0.5); Absolute Eosinophils 0.1 K/uL (0-0.5); Absolute Lymphocytes (CBC) 3.8 K/uL (0.7-4.9); Absolute Monocytes 0.7 K/uL (0.1-1.3); Basophils % 0.8 % (0-1.3); Eosinophils % 1.5 % (0-4.4); Hematocrit 43.1 % (36.0-45.0); Hemoglobin 14.2 g/dL (12.0-15.0); Lymphocytes % 43.4 % (15.3-44.8); MCH 29.3 pg (27.0-35.0); MCHC 32.9 g/dL (32.0-36.0); MPV 9.8 fL (7.6-11.3); Monocytes % 8.4 % (3.3-12.3); Neutrophils % 45.9 % (41.7-73.7); Nucleated Red Blood Cells % 0.1 % (0-0); Platelets 110 thou/uL (152-406); RBC Red Blood Cell Count 4.84 M/uL (3.86-4.86); Red Cell Distribution Width 13.7 % (12.1-15.2)
[2025-04-16 07:20] LABS: Anion Gap 6.6 mEq/L (5.0-15.0); Magnesium 2.1 mg/dL (1.6-2.4); Phosphorus 5.1 mg/dL (2.5-4.9); Potassium 3.6 mEq/L (3.5-5.1)
[2025-04-16] MEDS: ASPIRIN EC 81 MG TAB PO SCH (08:47)
[2025-04-16 10:02] VITALS: O2SAT 97
[2025-04-16 12:52] VITALS: BP 108/65; TEMP 97.8
--- NOTE | 2025-04-16 15:20 | P.DS ---
Admission Date: 04/15/25 Discharge Date: 04/16/25 Disposition: ROUTINE DISCHARGE Discharge Condition: GOOD Reason for Admission: Chest pain r/o ACS Hospital Course: Chest pain r/o ACS in a patient with CAD Afib s/p pacemaker CHF - troponin negative - Ordered transthoracic echocardiogram, as per verbal report echo looks good, final report pending, - chest x-ray "Question mild congestive heart failure." - Consulted Cardiology - recommendations appreciated, okay to discharge and follow-up as an outpatient Diabetes mellitus - Continue home meds CKD 3a: - Follow-up with PCP Hypertension COPD neuropathy -Continue home medications Smoking abuse -Reports 10 cigarettes daily - Cessation education provided # Chronic thrombocytopenia: Stable, follow-up with PCP Hospital course: 59-year-old patient presented with chest pain, chest x-ray showed questionable volume overload, troponins negative, cardiology was consulted, she had an echocardiogram, which is normal as per cardiology, final report pending, when I see the patient today she is doing well without any cute problems and feels ready to go home, otherwise no other acute issues going on so I am planning to discharge her to go home. Subjective: No chest pain or shortness of breath. No nausea or vomiting. No abdominal pain. No obvious bleeding. Looks comfortable in the bed. Objective: General appearance: Alert and comfortable CVS: Normal S1 and S2 Lungs: Clear to auscultation bilaterally Abdomen: Soft, bowel sounds present, no tenderness Extremities: No lower extremity edema Vital Signs/Physical Exam: Temp Pulse Resp BP Pulse Ox 97.8 F 60 16 108/65 98 04/16/25 12:00 04/16/25 12:00 04/16/25 12:00 04/16/25 12:00 04/16/25 12:00 Laboratory Data at Discharge: WBC 8.70 thou/uL (4.3-10.9) 04/16/25 06:28 Hgb 14.2 g/dL (12.0-15.0) 04/16/25 06:28 Hct 43.1 % (36.0-45.0) 04/16/25 06:28 Plt Count 110 thou/uL (152-406) L 04/16/25 06:28 PT 13.0 SECONDS (10-13.0) 04/15/25 15:38 INR 1.15 04/15/25 15:38 Sodium 141 mEq/L (136-145) 04/16/25 06:28 Potassium 3.6 mEq/L (3.5-5.1) 04/16/25 06:28 BUN 25 mg/dL (7-18) H 04/16/25 06:28 Creatinine 1.34 mg/dL (0.55-1.02) H 04/16/25 06:28 Glucose 82 mg/dL (74-106) 04/16/25 06:28 Phosphorus 5.1 mg/dL (2.5-4.9) H 04/16/25 06:28 Magnesium 2.1 mg/dL (1.6-2.4) 04/16/25 06:28 Total Bilirubin 0.8 mg/dL (0.2-1.0) 04/15/25 15:38 AST 16 U/L (15-37) 04/15/25 15:38 ALT 36 U/L (13-56) 04/15/25 15:38 Alkaline Phosphatase 55 U/L (45-117) 04/15/25 15:38 Home Medications: Apixaban [Eliquis *] 2.5 mg PO DAILY 10/10/19 Gabapentin 600 mg PO TID 10/10/19 Hydrocodone 10/APAP 325 [[place] 10/325*] 1 tab PO TIDP PRN 10/10/19 Furosemide [Lasix*] 80 mg PO DAILY 10/14/21 Losartan Potassium 100 mg PO DAILY 10/14/21 Spironolactone [Aldactone*] 25 mg PO BID 10 Days #10 tab 01/06/24 Fluticasone/Umeclidin/Vilanter [Trelegy Ellipta 200-62.5-25] 1 puff IH DAILY 01/12/24 Metformin ER [Glucophage ER*] 500 mg PO DAILY 01/12/24 Potassium Chloride 20 meq PO DAILY 01/12/24 carvediloL [Carvedilol] 25 mg PO DAILY 01/12/24 Pantoprazole [Protonix Tab*] 40 mg PO BID 30 Days #60 tab 01/13/24 Sucralfate [Carafate] 1 gm PO DAILY 04/15/25 Diet: ADA Activity: Ad brandon Followup: Luis Carlos Hwang MD [ACTIVE - CAN ADMIT] - 1 Week Xochilt Le MD [Primary Care Provider] - 1 Week (f/u with PCP in 5-7 days with CBC and CMP)
--- NOTE | 2025-04-17 06:39 | ECHO ---
HEIGHT: 5 ft 7 in WEIGHT: 268 lb 0 oz DATE OF STUDY: 04/16/[address]: Debbie Jiang NP 2-DIMENSIONAL: YES M.MODE: YES DOPPLER: YES COLOR FLOW: YES TDS: YES PORTABLE: YES DEFINITY: BUBBLE STUDY: DIAGNOSIS: RULE OUT CHEST PAIN CARDIAC HISTORY: CATHERIZATION: NO SURGERY: NO PROSTHETIC VALVE: NO PACEMAKER: YES MEASUREMENTS (cm) DIASTOLIC (NORMALS) SYSTOLIC (NORMALS) IVSd 1.4 (0.6-1.2) LA Diam 2.8 (1.9-4.0) LVEF 60-65% LVIDd 5.1 (3.5-5.7) LVIDs 3.7 (2.0-3.5) %FS 27% LVPWd 1.4 (0.6-1.2) Ao Diam 2.8 (2.0-3.7) 2 DIMENSIONAL ASSESSMENT: RIGHT ATRIUM: NORMAL LEFT ATRIUM: NORMAL RIGHT VENTRICLE: NORMAL LEFT VENTRICLE: NORMAL TRICUSPID VALVE: TRACE TRICUSPID REGURGITATION MITRAL VALVE: NORMAL PULMONIC VALVE: NORMAL AORTIC VALVE: NORMAL PERICARDIAL EFFUSION: NONE AORTIC ROOT: NORMAL LEFT VENTRICULAR WALL MOTION: NORMAL DOPPLER/COLOR FLOW: GRADE I DIASTOLIC DYSFUNCTION COMMENTS: 1. NORMAL LEFT VENTRICULAR SYSTOLIC FUNCTION, EJECTION FRACTION 60-65%, NORMAL WALL MOTION 2. GRADE I DIASTOLIC DYSFUNCTION TECHNOLOGIST: EMELYN WARE
--- NOTE | 2025-04-21 12:42 | EKG ---
Test Date: 2025-04-15 Test Time: 15:14:46 Winch Stripper: [place] SOLORZANO MEASUREMENT RESULTS: Intervals: Rate: 61 VT: 184 QRSD: 88 QT: 400 QTc: 402 [place]: P: 20 VT: 184 QRS: -2 T: -15 INTERPRETIVE STATEMENTS: Normal sinus rhythm Inferior infarct, age undetermined Cannot rule out Anterior infarct, age undetermined Abnormal ECG Compared to ECG 10/28/2024 14:52:04 Myocardial infarct finding now present Ventricular premature complex(es) no longer present T-wave abnormality no longer present Electronically Signed On 04-21-25 12:29:56 CDT by Luis Carlos Hwang
== END 2025-04-16 15:46 | disposition home or self-care (01) ==
LOC: ER 14:57 → 2ND 17:12
PROVIDERS: ADMIT Family Medicine; ATTEND Hospitalist
DX: R07.9 Chest pain, unspecified (principal); I25.10 Atherosclerotic heart disease of native coronary artery without angina pectoris; I48.11 Longstanding persistent atrial fibrillation; F17.210 Nicotine dependence, cigarettes, uncomplicated; E11.40 Type 2 diabetes mellitus with diabetic neuropathy, unspecified; E11.22 Type 2 diabetes mellitus with diabetic chronic kidney disease; I12.9 Hypertensive chronic kidney disease with stage 1 through stage 4 chronic kidney disease, or unspecified chronic kidney disease; N18.31 Chronic kidney disease, stage 3a; Z95.0 Presence of cardiac pacemaker; Z71.6 Tobacco abuse counseling; I50.9 Heart failure, unspecified
CPT/HCPCS: 93005; 93306; 85025 ×2; 80048 ×2; 36415; 83735 ×2; 84100; 85610; 82947 ×4; 80076; 84484 ×3; 83880; 71045; 99284; J1644 ×2; J2470 ×2; G0378